=== PATIENT | male | born 1975 | race Caucasian/White ===

== ENCOUNTER 2024-01-21 20:30 | Emergency (ER) | payer OTHER, SELFPAY ==
[2024-01-21 20:37] VITALS: BP 132/95; PULSE 95; TEMP 36.5; O2SAT 97; BMI 24.4
--- NOTE | 2024-01-21 21:03 | CT_ITS ---
The [address] [address] Patient Name: RAHEEM CODY MRN: [id number] date: 1975 Sex: M Assigned Patient Location: ER Current Patient Location: ER Accession/Order Number: [id number] Exam Date: 01/21/2024 21:17 Report Date: 01/21/2024 22:11 At the request of: REZA GONCALVES Procedure: CT head/brain wo con EXAM: CT head/brain wo con, CT facial bones wo con HISTORY: Pain Feels like something is moving on the rt side COMPARISON: None. TECHNIQUE: Axial CT scans through the head and facial bones were obtained without IV contrast administration. Dose reduction techniques were achieved by using: automated exposure control and/or adjustment of mA and /or kV according to patient size and/or use of iterative reconstruction technique. CT BRAIN FINDINGS: There is no evidence of acute intracranial hemorrhage or abnormal extra-axial fluid collection. No mass effect or midline shift is seen. There is no evidence of large acute territorial infarction. There is no hydrocephalus. No definite acute fracture is identified. Soft tissues are unremarkable. CT/CT head/brain wo con IMPRESSION: No CT evidence of acute intracranial abnormality. CT FACIAL FINDINGS: No acute fracture or posttraumatic malalignment. The globes are intact bilaterally. There is no retrobulbar hematoma. The soft tissues are unremarkable. The visualized paranasal sinuses show no air-fluid level. There are opacifications of left frontal sinus, ethmoid air cells and obliteration of left frontoethmoidal recess. Moderate leftward deviation of nasal septum with a bony spur. Mastoid air cells are clear. IMPRESSION: No acute abnormality. Electronically authenticated by: LAURA MCNAIRU Date: 01/21/2024 22:11
--- NOTE | 2024-01-21 21:04 | ED_ITS ---
HPI HPI - General Adult General Chief complaint: Back Pain/Injury Stated complaint: HEAD PAIN Time Seen by Provider: 01/21/24 20:49 Source: patient Mode of arrival: walk-in Limitations: no limitations History of Present Illness HPI narrative: 48-year-old male presents to the department because he feels like something is moving around on the right side of his scalp for months. He gives no history of trauma. Sometimes he feels like the roof of his mouth is moving around as well. The symptoms have been present for months and he appears to have seen some physicians about it but no cause was found. No complaints to me of neck pain or fever. Related Data Allergies Allergy/AdvReac Type Severity Reaction Status Date / Time Penicillins Allergy Severe Anaphylaxis Verified 01/21/24 20:37 Opioid HPI Opioid Management Most Recent Opioid Data: No Data to Display Review of Systems ROS Narrative A ten point review of systems is negative except as noted above. PFSH PFSH Social History Little interest or pleasure in doing things: not at all Feeling down, depressed, or hopeless: not at all Exam Narrative Exam Narrative: Nurses note and vital signs reviewed and patient is not hypoxic. General: The patient appears well and in no apparent distress. Patient is resting comfortably on cart. Skin: Warm, dry, no pallor noted. There is no rash noted. Head: Normocephalic, atraumatic; the scalp appears normal. No swelling or bruise or abrasion or erythema or hematoma. Eye: Normal conjunctiva, no drainage Ears, Nose, Mouth, and Throat: oral mucosa is moist. Nares patent. Cardiovascular: Regular Rate and Rhythm Respiratory: Patient is in no distress, no accessory muscle use, lungs are clear to auscultation, no wheezing, rales or rhonchi Back: non-tender, no CVA tenderness bilaterally to percussion. GI: Soft and nontender Musculoskeletal: The patient has no evidence of calf tenderness, no pitting edema, symmetrical pulses noted bilaterally Neurological: Awake alert, upper and lower extremity strength intact Psychiatric: Cooperative Constitutional Vital Signs, click to edit/add: Last Vital Signs Temp 97.7 F 01/21/24 20:37 Pulse 95 H 01/21/24 20:37 Resp 18 01/21/24 20:37 BP 132/95 H 01/21/24 20:37 Pulse Ox 97 01/21/24 20:37 O2 Del Method Room Air 01/21/24 20:37 Course Vital Signs Vital signs: Vital Signs Temperature 97.7 F 01/21/24 20:37 Pulse Rate 95 H 01/21/24 20:37 Respiratory Rate 18 01/21/24 20:37 Blood Pressure 132/95 H 01/21/24 20:37 Pulse Oximetry 97 01/21/24 20:37 Oxygen Delivery Method Room Air 01/21/24 20:37 Temperature 97.7 F 01/21/24 20:37 Pulse Rate 95 H 01/21/24 20:37 Respiratory Rate 18 01/21/24 20:37 Blood Pressure 132/95 H 01/21/24 20:37 Pulse Oximetry 97 01/21/24 20:37 Oxygen Delivery Method Room Air 01/21/24 20:37 Medical Decision Making MDM Narrative Medical decision making narrative: CAT scan of head and facial bones is negative. He was reassured and he will follow-up with his doctors in [place]. Findings were discussed with the patient. Lab Data Labs: Lab Results 01/21/24 Range/Units 21:07 POC Glucose 105 (74-106) mg/dL Imaging Data CT scan - head: Radiologist's impression: ITS Impressions Head CT 01/21/24 21:03 IMPRESSION: No CT evidence of acute intracranial abnormality. CT FACIAL FINDINGS: No acute fracture or posttraumatic malalignment. The globes are intact bilaterally. There is no retrobulbar hematoma. The soft tissues are unremarkable. The visualized paranasal sinuses show no air-fluid level. There are opacifications of left frontal sinus, ethmoid air cells and obliteration of left frontoethmoidal recess. Moderate leftward deviation of nasal septum with a bony spur. Mastoid air cells are clear. IMPRESSION: No acute abnormality. Electronically authenticated by: [facility] Date: 01/21/2024 22:[address] 01/21/24 21:18 IMPRESSION: No CT evidence of acute intracranial abnormality. CT FACIAL FINDINGS: No acute fracture or posttraumatic malalignment. The globes are intact bilaterally. There is no retrobulbar hematoma. The soft tissues are unremarkable. The visualized paranasal sinuses show no air-fluid level. There are opacifications of left frontal sinus, ethmoid air cells and obliteration of left frontoethmoidal recess. Moderate leftward deviation of nasal septum with a bony spur. Mastoid air cells are clear. IMPRESSION: No acute abnormality. Electronically authenticated by: LAURA UNLU Date: 01/21/2024 22:11 Discharge Plan Discharge Chief Complaint: Back Pain/Injury Clinical Impression: Head pain Patient Disposition: Home, Self-Care Time of Disposition Decision: 22:23 Condition: Good Mode of Transportation: Private Vehicle Print Language: Slovenian Instructions: Acute Headache (ED) Additional Instructions: Follow-up with your doctors in [place]. Referrals: Physician,Non-Staff, MD [Primary Care Provider] - 1 week
[2024-01-21 21:10] LABS: Glucometer 105 mg/dL (74-106)
--- NOTE | 2024-01-21 21:18 | CT_ITS ---
The [address] [address] Patient Name: RAHEEM CODY MRN: [id number] date: 1975 Sex: M Assigned Patient Location: ER Current Patient Location: ER Accession/Order Number: [id number] Exam Date: 01/21/2024 21:17 Report Date: 01/21/2024 22:11 At the request of: REZA GONCALVES Procedure: CT facial bones wo con EXAM: CT head/brain wo con, CT facial bones wo con HISTORY: Pain Feels like something is moving on the rt side COMPARISON: None. TECHNIQUE: Axial CT scans through the head and facial bones were obtained without IV contrast administration. Dose reduction techniques were achieved by using: automated exposure control and/or adjustment of mA and /or kV according to patient size and/or use of iterative reconstruction technique. CT BRAIN FINDINGS: There is no evidence of acute intracranial hemorrhage or abnormal extra-axial fluid collection. No mass effect or midline shift is seen. There is no evidence of large acute territorial infarction. There is no hydrocephalus. No definite acute fracture is identified. Soft tissues are unremarkable. CT/CT facial bones wo con IMPRESSION: No CT evidence of acute intracranial abnormality. CT FACIAL FINDINGS: No acute fracture or posttraumatic malalignment. The globes are intact bilaterally. There is no retrobulbar hematoma. The soft tissues are unremarkable. The visualized paranasal sinuses show no air-fluid level. There are opacifications of left frontal sinus, ethmoid air cells and obliteration of left frontoethmoidal recess. Moderate leftward deviation of nasal septum with a bony spur. Mastoid air cells are clear. IMPRESSION: No acute abnormality. Electronically authenticated by: LAURA UNLU Date: 01/21/2024 22:11
== END 2024-01-21 22:28 | disposition home or self-care (01) ==
PROVIDERS: Emergency Provider Emergency Medicine
DX: R51.9 Headache, unspecified (principal)
CPT/HCPCS: 36415; 70450; 70486; 99284

== ENCOUNTER 2024-02-12 18:30 | Emergency (ER) | payer OTHER, SELFPAY ==
[2024-02-12 18:34] VITALS: BP 169/68; PULSE 94; TEMP 37.2; O2SAT 98; BMI 24.4
[2024-02-12 18:46] VITALS: O2SAT 98
--- NOTE | 2024-02-12 19:11 | CT_ITS ---
The [address] [address] Patient Name: RAHEEM CODY MRN: [facility]:[id number] date: 1975 Sex: M Assigned Patient Location: ER Current Patient Location: Accession/Order Number: [id number] Exam Date: 02/12/2024 19:20 Report Date: 02/12/2024 20:21 At the request of: TENA AGUERO Procedure: CT cervical spine wo con EXAM: CT cervical spine wo con HISTORY: neck pain COMPARISON: None. TECHNIQUE: Axial scans C-spine without contrast. Reformatted coronal sagittal images. Individualized radiation dose reduction technique used for this exam. FINDINGS: Normal alignment. No fracture or suspicious bone lesion. Mild disc spacer C5-6 with minor spurring. No calcification along the anterior disc. No definite disc protrusion although CT is relatively insensitive. No canal or foraminal stenosis. Mild facet DJD. Soft tissues unremarkable. No mass or adenopathy seen. No fluid collection or hematoma. Lower neck including larynx, thyroid unremarkable. Chest demonstrates severe emphysema. Pleural-based density most consistent with scarring incompletely visualized. CT/CT cervical spine wo con IMPRESSION: 1. Negative for fracture or subluxation. 2. Mild degenerative disc disease C5-6. Facet degenerative changes bilateral. No significant bony foraminal or canal stenosis. 3. Severe apical emphysema for age. Electronically authenticated by: LAURENCE MAR Date: 02/12/2024 20:21
--- NOTE | 2024-02-12 19:18 | ED.GENADUL1 ---
HPI HPI - General Adult General Chief complaint: Neck Pain/Injury Stated complaint: HEAD/NECK PAIN Time Seen by Provider: 02/12/24 19:11 Source: patient Mode of arrival: walk-in Limitations: no limitations History of Present Illness HPI narrative: Patient presented to emergency department for evaluation of pain. Patient states that a couple days ago he fell out of a chair, landed on the back of his head. Patient states that now whenever he turns left or right he feels like his neck is hurting him. Is not in the middle, he states on the left and right side of his neck it feels like a crunching sensation, and now whenever he swallows he feels like a sharp sensation in the back of his throat that goes into his trachea patient states he not have any difficulty swallowing, he has to drink water and a sharp sensation goes away. No blurry vision, double vision, headaches. States that he has a history of TMJ, as many MRIs of his head and his jaw. No other complaints at this time Related Data Home Medications ?Medication ?Instructions ?Recorded ?Confirmed ketorolac 10 mg tablet 10 mg PO TID PRN pain 02/12/24 02/12/24 Allergies Allergy/AdvReac Type Severity Reaction Status Date / Time Penicillins Allergy Severe Anaphylaxis Verified 02/12/24 18:40 Opioid HPI Opioid Management Most Recent Opioid Data: Last ED Pain Assessment 02/12/24 20:12 Review of Systems ROS Narrative Negative unless otherwise stated in the HPI PFSH PFSH Social History Little interest or pleasure in doing things: not at all Feeling down, depressed, or hopeless: not at all Exam Narrative Exam Narrative: General: NAD, AAOx3, no distress HEENT: NCAT, mmm, midline uvula, no exudates, normal tonsils without hypertrophy or exudates Neck: Supple, no LAD, negative Kernig/Brudzinski, non meningeal, no bruit, paraspinal tenderness bilaterally, no bony abnormalities or deformities Respiratory: respiratory effort normal, speaks in full sentences, no tripod position, no accessory muscle use. Lungs clear to auscultation without rhonchi, wheezes, rales Cardiac: Regular rate and rhythm, no edema, regular s1/s2, no m/g/r Neuro: Speech is clear and appropriate. Normal level of consciousness. Gait and coordination are normal. 5/5 strength in all extremities. Constitutional Vital Signs, click to edit/add: Last Vital Signs Temp 98.9 F 02/12/24 18:34 Pulse 94 H 02/12/24 18:34 Resp 20 02/12/24 18:34 BP 169/68 H 02/12/24 18:34 Pulse Ox 98 02/12/24 18:46 O2 Del Method Room Air 02/12/24 18:46 Course Vital Signs Vital signs: Vital Signs Temperature 98.9 F 02/12/24 18:34 Pulse Rate 94 H 02/12/24 18:34 Respiratory Rate 20 02/12/24 18:34 Blood Pressure 169/68 H 02/12/24 18:34 Pulse Oximetry 98 02/12/24 18:34 Oxygen Delivery Method Room Air 02/12/24 18:34 Temperature 98.9 F 02/12/24 18:34 Pulse Rate 94 H 02/12/24 18:34 Respiratory Rate 20 02/12/24 18:34 Blood Pressure 169/68 H 02/12/24 18:34 Pulse Oximetry 98 02/12/24 18:46 Oxygen Delivery Method Room Air 02/12/24 18:46 Medical Decision Making MDM Narrative Medical decision making narrative: MDM Patient with history as above presented with neck pain status post fall. History obtained from patient. Patient was nontoxic, stable. Ambulatory. Exam as above. Independently reviewed imaging. Reviewed external records. Differential diagnosis considered. Overall presentation is consistent with neck contusion Pt who presented for complaints of pain after minor trauma. Patient on exam was well appearing, hemodynamically stable. Given trauma and tenderness, xray imaging was done without evidence of fracture. At this point in time patient has likely contusion. Recommend ICE, motrin and rest. Will see PCP in 7-10 days for repeat imaging should patient still be having pain. Advanced guidance has been given. Vss, pex is benign at this time. Pt to fu with pcp 1-2 days for reeval, rter should sx worsen, persist or become worrysome in any way. Pt expressed understanding and agreement with plan of care at this time. Will fu as planned. Pt stable for discharge. Discharge Plan Discharge Chief Complaint: Neck Pain/Injury Clinical Impression: Neck pain Patient Disposition: Home, Self-Care Time of Disposition Decision: 20:29 Prescriptions / Home Meds: No Action ketorolac 10 mg tablet 10 mg PO TID PRN (Reason: pain) Print Language: Citizen Of [place] Instructions: Acute Neck Pain (ED) Additional Instructions: Follow-up with your PCP in the next 1 to 2 days. Return to the emergency department should symptoms worsen or become worrisome in any way. Referrals: Physician,Non-Staff, MD [Primary Care Provider] - 1 week
[2024-02-12 20:36] VITALS: BP 135/96; PULSE 80; O2SAT 100
== END 2024-02-12 20:39 | disposition home or self-care (01) ==
PROVIDERS: Emergency Provider Emergency Medicine
DX: M54.2 Cervicalgia (principal)
CPT/HCPCS: 72125; 99284

== ENCOUNTER 2024-09-02 11:37 | Emergency (ER) | payer OTHER, SELFPAY ==
--- OUTSIDE RECORDS SUMMARY | 2016-09-29 10:50 | XMS_ITS | Continuity of Care Document ---
Author Organization [facility] Address [address] [place] [address] Phone Care Team Providers Care Marketing And Development Coordinator Name Role Phone Chavo Bermudez MD Unavailable Unavailable Allergies, Adverse Reactions, Alerts Substance Reaction Status Criticality Penicillins Unknown Active No Information Medications Medication Instructions Dosage Effective Dates (start - stop) Status Comments nicotine 21 mg/24 hr daily transdermal patch apply 1 patch by transdermal route every day and remove at bedtime 21 MG - Active Procedures Procedure Date OFFICE/OUTPATIENT VISIT, [facility] Advance Directives Directive Yes / No Effective Date File Name No Information Encounters Encounter Description Practice Location Reason(s) For Visit Diagnoses Date Provider Providers Copied on Encounter [facility], [address], [place], [place], [id number] tel:[phone] [facility] No Information 7 Lara Tony. [address], [place], [place], [id number] , [place]. tel: [phone] OFFICE/OUTPA TIENT VISIT, NEW [facility], [address], [place], [place], [id number] tel:[phone] [facility] Hepatits C intake (chief complaint) Abdominal pain (chief complaint) Chronic hepatitis CAbdominal pain 7 [facility]. [address], [place], [place], [id number] , [place]. tel: [phone] [facility], [address], [place], [place], [id number] [phone] [facility] No Information 0-201 7 Lara Tony. [address], [place], [place], [id number] , . tel: [phone] Family History Family Member Type Diagnosis Age At Onset No Information Payers Payer name Insurance type Covered alliance party ID Cecile lopez(s) Mariangel [id number] Social History Type Description Quantity Date Captured Comments Alcohol Use Details Unknown Caffeine Use Details Unknown Tobacco Use Status Smoking Status No Information Sex Male Chief Complaint And Reason For Visit No Information Reason For Referral Reason For Referral No Information Plan Of Treatment Date Type Action Status Future Order: Lab Order Urine Dr ug Screen (DRUGU), Ordered on: Ordered Future Order: Lab Order GETACHEW, bod y fluid (BALJIT), Ordered on: Ordered Future Order: Lab Order SPEP ([id number]), Ord ered on: Ordered History Of Present Illness Encounter Date Complaint History Of Prese nt Illness Hepatits C intake Abdominal pain Onset: 2 years a go. Duration is 10 Minutes. It occurs randomly. The problem is unchanged. Location is RUQ. The patient describes it as sharp and stabbing. Context: no pattern noted. Denies aggravating factors. Denies relieving factors. Functional Status Date Functional Assessmen t No Information Instructions Date Instruction Additional Infor mation Stop alcohol ingestion. Related to Chronic hepatitis C Assessments Type Assessment Date No Information Patient Care Teams Name Effective Dates (start - stop) Status Members No Information
--- OUTSIDE RECORDS SUMMARY | 2022-06-04 10:00 | XMS_ITS | Continuity of Care Document ---
Author Organization [facility] Address [address] [place] [address] Phone Care Team Providers Care Chief Power Dispatcher Name Role Phone Fatimah May CNP Unavailable Unavailable Allergies, Adverse Reactions, Alerts Substance Reaction Status Criticality Penicillins Anaphylaxis Active No Information Medications Medication Instructions Dosage Effective Dates (start - stop) Status Comments cetirizine 10 mg tablet take 1 tablet by oral route every day 10 MG - Active nicotine 14 mg/24 hr daily transdermal patch apply 1 patch by transdermal route every day 14 MG - Active Procedures Procedure Date BEHAV CHNG SMOKING 3-10 MIN PREV VISIT, NEW, AGE 40-64 Advance Directives Directive Yes / No Effective Date File Name No Information Encounters Encounter Description Practice Location Reason(s) For Visit Diagnoses Date Provider Providers Copied on Encounter PREV VISIT, NEW, AGE 40-64 [facility], [address] [place] [address], [address], [place] tel:[phone] [facility] Establish Care (chief complaint) Body mass index [BMI] 23.0-23.9, adultEncounter for general adult medical examination without abnormal findingsHepatitis CEncounter for screening for diabetesEncounter for screening for cholesterol levelEncounter for screening for HIVEncounter for screening for infection w/ a predominantly sexual mode of transmissionTMJ disorderAllergic rhinitis, unspecifiedNicotine dependence, cigarettes, uncomplicatedTobacc o abuse counselingTobacco use 3 Lalo Sheridan. [address] [place] [address], [address], [place]. tel:[phone] Referring Provider: Fatimah May, [address] [facility], [place], [address]. tel:[phone] Family History Family Member Type Diagnosis Age At Onset No Information Payers Payer name Insurance type Covered republican ID Cecile lopez(s) [facility] [employer] [id number] Wrap Medicaid [id number] Social History Type Description Quantity Date Captured Comments Alcohol Use Details Unknown Caffeine Use Details Unknown Tobacco Use Status Heavy cigarette smok er (20-39 cigs/day) Smoking Status Heavy tobacco smoker Smoking Tobacco Use Details Cigarette: Years Used 2 Cigarette: 1 Packs per day, Pack Year: 2 Sex Male Sexual Orientation Straight or heterosexual Gender Identity Male Vital Signs Date / Time: Height Weight BMI Pulse Rate Blood Pressure Temperature Respiratory Rate Body Surface Area Head Circumference Head Circ. Percentile Wt./Mario. Percentile BMI percentile Pulse Ox Inhaled Ox 2:00 PM 69.00 in 72.575 kg (160.00 lbs) 23.6 3 kg/m eter (2) 91 /min 127/80 mm[Hg] 98.80 F 17 /min 96 % 21 % Chief Complaint And Reason For Visit From encounter dated '06/04/2022 14:00'. Establish Care (chief complaint). Description: Patient presents to establish care. Patient has concerns about head trauma, a STI test, and a nicotine addiction.Patient states that he believes he got head trauma from a tooth extraction. Pt states the dentist hit his tooth (tried to knock it out) andhe has had popping in his head and jaw pain. Pt would like tested for every STI that he can be tested for. Pt would like to be started on nicotine patches. Reason For Referral Reason For Referral No Information Plan Of Treatment Date Type Action Status Goal Td vaccine. Due on 23 due Goal Eye exam. Due on due Goal Dental exam. Due on 023 due Goal Pneumococcal vaccine. Due on due Goal Depression screening. Due on due Goal Tdap. Due on due Goal Hepatitis C screening. Due o n due Goal Unhealthy drug use screening . Due on due Goal Influenza 6MOS+. Due on due Referral Ordered: Referrals: Oral Maxillofacial Surgery. Evaluate and treat ordered History Of Present Illness Encounter Date Complaint History Of Prese nt Illness Comments: Pt rep orts chronic jaw/TMJ pain with clicking/popping since having teeth pulled for dental work. 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 Is positive for hepatitis C and is treatment naive. Denies current symptoms of STI or known exposures. Requesting assistance with smoking cessation. Establish Care Patient presents to establish care. Patient has concerns about head trauma, a STI test, and a nicotine addiction.Patient states that he believes he got head trauma from a tooth extraction. Pt states the dentist hit his tooth (tried to knock it out) and he has had popping in his head and jaw pain. Pt would like tested for every STI that he can be tested for. Pt would like to be started on nicotine patches. Functional Status Date Functional Assessmen t No Information Instructions Date Instruction Additional Infor evelin Quitting smoking can dramatically improve your health. Doing so lowers your risk of heart disease, lung disease, kidney failure, infection, stomach problems, diabetes, and cancer. Quitting is not easy for most people, and it can take several tries to completely quit. When you are ready to quit, you will make a plan to: Set a quit date, Tell your family and friends that you plan to quit, Plan ahead for the challenges you will face, such as cigarette cravings, and remove cigarettes from your home, car, and work. For most people who are trying to quit smoking, it works best to use both medicines and counseling. Related to Nicotine dependence, cigarettes, uncomplicated Giving encouragement to exercise Related to Body mass index [BMI] 23.0-23.9, adult Assessments Type Assessment Date assessment Body mass index [BMI] 23.0-23.9, adult assessment Encounter for genera l adult medical examination without abnormal findings assessment Hepatitis C assessment Encounter for screening for diab etes assessment Encounter for screening for chol esterol level assessment Encounter for screening for HIV assessment Encounter for screen ing for infection w/ a predominantly sexual mode of transmission assessment TMJ disorder assessment Allergic rhinitis, unspecified M assessment Tobacco use assessment Tobacco abuse counseling 2022 impression [facility] ordered assessment Tobacco use Mental Status Date Cognitive Assessment Orientation - [place] ed to time, place, person, situation. Patient Care Teams Name Effective Dates (start - stop) Status Members No Information
--- OUTSIDE RECORDS SUMMARY | 2023-05-03 09:30 | XMS_ITS | Continuity of Care Document ---
Author Organization [facility] Address [address] [place] [address] Phone Care Team Providers Care Naturopath Name Role Phone Justin Rodríguez DDS Unavailable Unavailable Allergies, Adverse Reactions, Alerts Substance Reaction Status Criticality Penicillins Active No Information Medications Medication Instructions Dosage Effective Dates (start - stop) Status Comments Seroquel 25 mg tablet take 1 tablet by o ral route 2 times every day 25 MG - Active Ambien 5 mg tablet take 1 tablet by ora l route every day at bedtime 5 MG - Active prednisone 5 mg tablet take 1 tablet by oral route every day 5 MG - Active doxycycline hyclate 50 mg capsule take 1 capsule by oral route every 12 hours 50 MG - Active Procedures Procedure Date Intraoral-periapical 1st Film [id number] Additional Apr Bitewig-single Film Oral Hygiene Instruction Limited Oral Eval Advance Directives Directive Yes / No Effective Date File Name No Information Encounters Encounter Description Practice Location Reason(s) For Visit Diagnoses Date Provider Providers Copied on Encounter [facility], [address] [place] [address], [id number], [place] tel:[phone] [facility] DENTAL ER (chief complaint) Encounter for screening for dental disorders Marcos Anderson. [address] [place] [address], [address], . tel:[phone] Family History Family Member Type Diagnosis Age At Onset No Information Payers Payer name Insurance type Covered green party ID Authortyesha lopez(s) [facility] [employer] id [facility] [id number] D Medicaid Wrap - [facility] [id number] Social History Type Description Quantity Date Captured Comments Alcohol Use Details Unknown Caffeine Use Details Unknown Tobacco Use Status No Information Smoking Status No Information Sex Male Sexual Orientation Bisexual Gender Identity Male Vital Signs Date / Time: Height Weight BMI Pulse Rate Blood Pressure Temperature Respiratory Rate Body Surface Area Head Circumference Head Circ. Percentile Wt./Mario. Percentile BMI percentile Pulse Ox Inhaled Ox 1:47 PM 98 /min 116/70 mm[Hg] Chief Complaint And Reason For Visit From encounter dated 05/03/2023 13:30'. DENTAL ER (chief complaint). Description: DENTAL ER Reason For Referral Reason For Referral No Information Plan Of Treatment Date Type Action Status Goal Tdap. Due on due Goal Hepatitis C screening. Due o n due Goal Influenza vaccine. Due on due Goal Unhealthy drug use screening . Due on due Goal Lipid panel. Due on 024 due Goal PRAPARE ASSESSMENT. Due on due Goal Depression screening. Due on due Goal Tdap Vaccine. Due on 2023 due Goal Hep A. Due on du e History Of Present Illness Encounter Date Complaint History Of Prese nt Illness DENTAL ER DENTAL ER Functional Status Date Functional Assessmen t No Information Instructions Date Instruction Additional Infor mation No Information Assessments Type Assessment Date No Information Patient Care Teams Name Effective Dates (start - stop) Status Members No Information
--- OUTSIDE RECORDS SUMMARY | 2024-01-03 10:10 | XMS_ITS ---
Author Organization [facility] Address [address] [place] [address] Care Team Providers Care Receiving Lead Name Role Phone Colette Vuong Primary Care Provider UnavailAlessandro Aguilera [phone] REASON FOR VISIT BILAT OM Encounters Encounter Location Date Provider Diagnosis [facility] [address] [place] [phone] 01/03/2024 Alessandro Germain Plan Of Treatment No Information Progress Notes * RAHEEM CODY ADOB:1975 (49 yo M)Acc No.[id number]:01/03/2024 Patient: RAHEEM MARTINEZ Provider: Nida Germain DPM :1975 A ge:48 Y S ex:Male Date:01/03/2024 Address:[address] [place], [place] [id number] Pcp:Colette Vuong Subjective: * Chief Complaints: * 1 . BILAT OM. * Medical History: Objective: * Vitals: Assessment: Plan: * Treatment: Forms: * Images: * Electronic signature of Diana Germain DPM on 09/02/2024 at 11:51 AM EDT Sign off status: Pending * Provider: Nida Germain DPM Date: 1 Generated for Printi ng/Faxing/eTransmitting on: 0 09/02/2024 11:51 AM EDT
--- OUTSIDE RECORDS SUMMARY | 2024-01-06 10:10 | XMS_ITS ---
Author Organization [facility] Address [address] [place] [address] Care Team Providers Care Meteorological Engineer Name Role Phone Colette Vuong Primary Care Provider UnavailAlessandro Aguilera [phone] REASON FOR VISIT BILAT OM Encounters Encounter Location Date Provider Diagnosis [facility] [address] [facility] [address] [address] 01/06/2024 Alessandro Germain Plan Of Treatment No Information Progress Notes * RAHEEM CODY ADOB:1975 (49 yo M)Acc No.[id number]:01/06/2024 Patient: RAHEEM MARTINEZ Provider: Nida Germain DPM :1975 A ge:48 Y S ex:Male Date:01/06/2024 Address:[address] [place], [place] [phone] Pcp:Colette Vuong Subjective: * Chief Complaints: * 1 . BILAT OM. * Medical History: Objective: * Vitals: Assessment: Plan: * Treatment: Forms: * Images: * Electronic signature of Diana Germain DPM on 09/02/2024 at 11:52 AM EDT Sign off status: Pending * Provider: Nida Germain DPM Date: 1 Generated for Printi ng/Faxing/eTransmitting on: 0 09/02/2024 11:52 AM EDT
--- OUTSIDE RECORDS SUMMARY | 2024-04-13 11:50 | XMS_ITS ---
Author Organization [facility] Address [address] [place] [address] Care Team Providers Care Fight Manager Name Role Phone Colette Vuong Primary Care Provider Unavailab Alessandro Felder Unavailable [phone] REASON FOR VISIT LEFT GREAT TOE ISSUES Encounters Encounter Location Date Provider Diagnosis [facility] [facility] [address] [facility] [address] [place] [address] [address] 04/13/2024 Alessandro Germain Plan Of Treatment No Information Progress Notes * RAHEEM CODY ADOB:1975 (49 yo M)Acc No.[id number]:04/13/2024 Patient: RAHEEM MARTINEZ Provider: Nida Germain DPM :1975 A ge:49 Y S ex:Male Date:04/13/2024 Address:[address] [place], [place] [id number] Pcp:Colette Vuong Subjective: * Chief Complaints: * 1 . LEFT GREAT TOE ISSUES. * Medical History: Objective: * Vitals: Assessment: Plan: * Treatment: Forms: * Images: * Electronic signature of Diana Germain DPM on 09/02/2024 at 11:51 AM EDT Sign off status: Pending * Provider: Nida Germain DPM Date: 04/13/2024 Generated for Printi ng/Fakentrellg/eTransmitting on: 0 09/02/2024 11:51 AM EDT
--- OUTSIDE RECORDS SUMMARY | 2024-08-24 18:30 | XMS_ITS | Encounter Summary ---
Author Organization [facility] Address [address] [place] [address] Phone Care Team Providers Care Traffic Rate Analyst Name Role Phone Calos Garner MD Primary Care Provider Reason for Referral * Consultation (Routine) - Authorized Specialty Diagnoses / Procedures Referred By Joelle de león Referred To Contact Family Medicine / Primary Care Diagnoses TMJ syndrome Scalp pain Omar Traylor PA-C [address] [place] [address] Phone: tel: fax: Referral ID Status Reason Start Date Expiration Date Visits Requested Visits Authorized [id number] Authorized Specialty Services Required 08/24/2024 08/24/2025 1 1 Reason for Visit * Reason Comments Injury Scalp area surroundi ng ear had a loud crack . I've seen drs for tmd. The won't address the fungal infection I had in my scalp. Near ear something snapped the popped and feels . A white line spread over my head ear to ear. Scalp fungus as wel - Entered by patient Encounter Details Date Type Department Care Team (Late st Contact Info) Description 08/24/2024 6:30 PM EDT Telemedicine Urgent Care Virtual Visit [address] [place] [address] Omar Traylor PA-C [address] [place] [address] TMJ syndrome (Primary Dx); Scalp pain Social History Tobacco Use Types Packs/Day Years Used Date Smoking Tobacco: Every Day Cigarettes Passive Smoke Exposure: Never Smokeless Tobacco: Current PHQ-2 Answer Date Recorded Patient Health Questionnaire-2 Score 0 02/21/2024 Sex and Gender Information Value Date Recorded Sex Assigned at Not on file Legal Sex Male 6:26 AM EST Gender Identity Not on file Sexual Orientation Not on file documented as of this encounter Patient Instructions * Patient Instructions* Omar Traylor PA-C - 08/24/2024 6:30 PM EDT I did refer you to primary care. documented in this encounter Progress Notes * Omar Traylor PA-C - 08/24/2024 6:30 PM EDT Urgent Care Virtual Video Visit Patient Location: home Provider Location: [facility] 49-year-old male with multiple complaints. States that he had a head injury and then dealing with TMJ for several years. He had multiple CAT scans and MRIs. He does have an MRI of his face scheduled for beginning of September. He thinks issue is his scalp. At one time he was diagnosed with fungal infection of the scalp and given ketoconazole shampoo. Unable to perform physical exam due to virtual nature of visit. These are longstanding issues for the patient. He is already following with TMJ specialist and has an MRI of his face September 15. There isnothing new or worse today. If he develops headaches, vision issues, fever, drooling, change in voice, or facial swelling he is to go to the emergency department. He would like to establish with . Did refer him to primary care. Use Tylenol if needed. I have communicated my name and active licensure. Video visit completed with realtime synchronous video/audio connection. Informed consent was obtained from the patient. Patient was made aware that my evaluation and diagnosis are limited due to the fact that we are not in the same room during the interview and that this is a virtual encounter that took place via videoconferencing. Patient verbalized understanding. Patient disposition: Home Electronically signed by Omar Traylor PA-C 6:58 PM documented in this encounter Plan of Treatment Upcoming Encounters Date Type Department Care Team (Late st Contact Info) Description 09/14/2024 2:15 PM EDT Office Visit [facility] Internal Medicine [address] [address] Dre Wilde MD [address] [address] Scheduled Referrals Name Type Priority Associated Diagnoses Order Schedule Referral to Primary Care Outpatient Referral Non-Urgent TMJ syndrome Scalp pain Expected: 08/24/2024 (Approximate), Expires: 08/24/2025 documented as of this encounter Visit Diagnoses Diagnosis TMJ syndrome- Primary Unspecified temporomandibular joint disorders Scalp pain documented in this encounter Care Teams Traffic Rate Analyst Relationship Specialty Start Date End Date Calos Garner MD [address] [place] [address] PCP - General 09/21/22 08/27/24 documented as of this encounter
[2024-09-02 11:44] VITALS: BP 120/72; PULSE 105; TEMP 37.2; O2SAT 95; BMI 27.3
--- OUTSIDE RECORDS SUMMARY | 2024-09-02 11:51 | XMS_ITS | Encounter Summary ---
Author Organization [facility] Address [facility] [place] [address] Care Team Providers Care Sanitation Worker Cleaning Equipment Name Role Phone Carrington Fritz MD Unavailable [phone] Carrington Fritz MD Primary Care Provider + Source Comments In the event this information is protected by the Federal Confidentiality of Alcohol and Drug AbusePatient Records regulations: The Federal rules restrict any use of the information to criminally investigate or prosecute any alcohol or drug abuse patient.[facility] Encounter Details Date Type Department Care Team (Late st Contact Info) Description 06/05/2024 Patient [facility] -[address] [place] [address] Callie Serrato RPh At your next appointment, choose [facility]. Social History Tobacco Use Types Packs/Day Years Used Date Smoking Tobacco: Every Day Cigarettes 0.3 16 Smokeless Tobacco: Current Comments:Pt basically does c hew Alcohol Use Standard Drinks/Week Comments No 0 (1 standard drink = 0.6 oz pur e alcohol) PHQ-2 Answer Date Recorded PHQ-2 score 1 05/19/2024 Area Deprivation Index Answer Date Matthew rded National Score (1-100), lower number is lower ri 87 11/29/2023 State Score (1-10), lower number is lower risk 8 11/29/2023 Data from: https://www.neighborhoodatlas.medicine.[facility]/. 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 Answer Date of Assessment Author No 09/25/2013 8:21 AM EDT Pravin Cruz LPN * Are you blind or do you have serious difficulty seeing, even when wearing glasses? Answer Date of Assessment Author No 09/25/2013 8:21 AM EDT Pravin Cruz LPN * Do you have serious difficulty walking or climbing stairs? Answer Date of Assessment Author No 09/25/2013 8:21 AM EDT Pravin Cruz LPN * Do you have difficulty dressing or bathing? Answer Date of Assessment Author No 09/25/2013 8:21 AM EDT Pravin Cruz LPN * Because of a physical, mental, or emotional condition, do you have difficulty doing errands alone such as visiting a doctor's office or shopping? Answer Date of Assessment Author No 09/25/2013 8:21 AM EDT Pravin Cruz LPN documented as of this encounter Mental Status * Because of a physical, mental, or emotional condition, do you have serious difficulty concentrating, remembering, or making decisions? Answer Entry Date Author Yes 09/25/2013 8:21 AM EDT Pravin Cruz LPN documented in this encounter Plan of Treatment Upcoming Encounters Date Type Department Care Team (Late st Contact Info) Description 09/06/2024 7:30 AM EDT OT/PT/Speech Visit [facility] Speech Therapy [address] [place] [address] Carmen Johnson, CCC-WIRER PASSENGER CAR [address] [place] [address] 09/07/2024 8:50 AM EDT Office Visit Otolaryngology [address] [place] [address] Callie Don PA [address] [place] [address] THROAT ISSUE, SWALLOWING ISSUE, MOUTH 09/13/2024 7:30 AM EDT OT/PT/Speech Visit [facility] Speech Therapy [address] [place] [address] Carmen Johnson, CCC-WIRER PASSENGER [address] [address] [place] [address] 09/20/2024 7:30 AM EDT OT/PT/Speech Visit [facility] Speech Therapy [address] [place] [address] Carmen Johnson, CCC-WIRER PASSENGER [address] [address] [place] [address] 09/27/2024 8:00 AM EDT OT/PT/Speech Visit [facility] Speech Therapy [address] [place] [address] Yoli Hankins CCC-WIRER PASSENGER [address] [address] [place] [address] ST 10/02/2024 11:00 AM EDT Office Visit Internal Medicine [facility] [address] [place] [address] Sammie Landa APRN.SPRAY DRY OPERATOR [address] [place] [address] est care 10/25/2024 3:30 PM EDT Office Visit Neurology [address] [place] [address] Toya Wright DO [address] [place] [address] Facial lupillo. Injection sooner documented as of this encounter Visit Diagnoses Not on filedocumented in this encounter Care Teams Sanitation Worker Cleaning Equipment Relationship Specialty Start Date End Date Carrington Fritz MD [facility], [address] [place], [place] [id number] PCP - General Internal Medicine 06/20/24 Carrington Fritz MD [facility], [address] [place] [address] Referring Internal Medicine 11/26/23 documented as of this encounter
--- OUTSIDE RECORDS SUMMARY | 2024-09-02 11:51 | XMS_ITS | Encounter Summary ---
Author Organization [facility] Address [address] [place] [address] Care Team Providers Care Agent Broker Name Role Phone Carrington Fritz MD Unavailable [phone] Carrington Fritz MD Primary Care Provider + Source Comments In the event this information is protected by the Federal Confidentiality of Alcohol and Drug AbusePatient Records regulations: The Federal rules restrict any use of the information to criminally investigate or prosecute any alcohol or drug abuse patient.[facility] Encounter Details Date Type Department Care Team (Late st Contact Info) Description 08/12/2024 Patient Msg Otolaryngology [address] [address] Allan Aggarwal MD [address] [address] Appointment Request Social History Tobacco Use Types Packs/Day Years Used Date Smoking Tobacco: Former Cigarettes Smokeless Tobacco: Former Snuff Comments:Stopped smoking x 2 months ago as 07/06/24. Alcohol Use Standard Drinks/Week Comments No 0 (1 standard drink = 0.6 oz pur e alcohol) PHQ-2 Answer Date Recorded PHQ-2 score 5 06/22/2024 Area Deprivation Index Answer Date Matthew rded National Score (1-100), lower number is lower ri sk 87 11/29/2023 State Score (1-10), lower number is lower risk 8 11/29/2023 Data from: https://www.neighborhoodatlas.medicine.[facility]/. 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 Answer Date of Assessment Author No 07/21/2024 9:54 AM Dejah Fine RN * Are you blind or do you have serious difficulty seeing, even when wearing glasses? Answer Date of Assessment Author No 07/21/2024 9:54 AM Dejah Fine RN * Do you have serious difficulty walking or climbing stairs? Answer Date of Assessment Author No 07/21/2024 9:54 AM Dejah Fine RN * Do you have difficulty dressing or bathing? Answer Date of Assessment Author No 07/21/2024 9:54 AM Dejah Fine RN * Because of a physical, mental, or emotional condition, do you have difficulty doing errands alone such as visiting a doctor's office or shopping? Answer Date of Assessment Author No 07/21/2024 9:54 AM Dejah Fine RN documented as of this encounter Mental Status * Because of a physical, mental, or emotional condition, do you have serious difficulty concentrating, remembering, or making decisions? Answer Entry Date Author No 07/21/2024 9:54 AM Dejah Fine RN documented in this encounter Plan of Treatment Upcoming Encounters Date Type Department Care Team (Late st Contact Info) Description 09/06/2024 7:30 AM EDT OT/PT/Speech Visit [facility] Speech Therapy [address] [place] [address] Carmen Johnson, CCC-WAX ROOM SUPERVISOR [address] [place] [address] 09/07/2024 8:50 AM EDT Office Visit Otolaryngology [address] [place] [address] Callie Don PA [address] [place] [address] THROAT ISSUE, SWALLOWING ISSUE, MOUTH 09/13/2024 7:30 AM EDT OT/PT/Speech Visit [facility] Speech Therapy [address] [place] [address] Carmen Johnson, CCC-WAX ROOM SUPERVISOR [address] [place] [address] 09/20/2024 7:30 AM EDT OT/PT/Speech Visit [facility] Speech Therapy [address] [place] [address] Carmen Johnson, CCC-WAX ROOM SUPERVISOR [address] [place] [address] 09/27/2024 8:00 AM EDT OT/PT/Speech Visit [facility] Speech Therapy [address] [place] [phone] Yoli Hankins CCC-WAX ROOM SUPERVISOR [address] [place] [address] ST 10/02/2024 11:00 AM EDT Office Visit Internal Medicine [facility] [address] [place] [address] Sammie Landa APRN.ORNAMENT SETTER [address] [place] [address] est care 10/25/2024 3:30 PM EDT Office Visit Neurology [address] [place] [address] Toya Wright DO [address] [place] [address] Facial lupillo. Injection sooner documented as of this encounter Visit Diagnoses Not on filedocumented in this encounter Care Teams Agent Broker Relationship Specialty Start Date End Date Carrington Fritz MD [address] [place] [address], [address] [place], [place] [phone] PCP - General Internal Medicine 06/20/24 Carrington Fritz MD [address] [place] [address], [address] [place] [address] Referring Internal Medicine 11/26/23 documented as of this encounter
--- OUTSIDE RECORDS SUMMARY | 2024-09-02 11:51 | XMS_ITS | Clinical Summary ---
Author Organization [facility] Address [id number] [address] [place] [address] Care Team Providers Care Polysomnography Tech Name Role Phone Carrington Fritz MD Primary Care Provider [phone] Allergies Active Allergy Reactions Criticality Noted Date Comments Penicillins Anaphylaxis,Cough High 06/03/2007 Anaphylaxis was listed per [facility]. Medications * This document contains information received from the source organization and may not represent a complete record from that organization. ketoconazole (NIZORAL) 2 % shampooIndica tions:Seborrh ea capitis Apply 1 Application topically 2 (two) times a week. Apply to damp skin, lather, leave on 5 minutes, and rinse 120 mL 05/01/19 25 Active cyanocobalami n (VITAMIN B-12) 1,000 mcg/mL injection 1 mL (1,000 mcg total). 05/18/19 25 Active sodium chloride (OCEAN) 0.65 % nasal spray Administer 2 sprays into each nostril as needed for congestion. 15 mL 12 06/02/19 25 Active mupirocin (BACTROBAN) 2 % ointment Apply 1 Application topically 3 (three) times a day. 22 g 06/02/19 25 Active clonazePAM (KlonoPIN) 1 mg tabletIndicat ions:Anxiety Take 1 tablet (1 mg total) by mouth 2 (two) times a day as needed for anxiety. 60 tablet 08/11/19 25 Active pregabalin (LYRICA) 150 mg capsuleIndica tions:TMJ (temporomandi bular joint disorder) Take 1 capsule (150 mg total) by mouth 3 (three) times a day. 90 capsule 08/16/19 25 Active buprenorphine -naloxone (SUBOXONE) 8-2 mg film 08/18/19 25 Active DULoxetine (CYMBALTA) 30 mg capsule 08/18/19 25 Active naloxone (NARCAN) 4 mg/actuation spray,non-aer osol nasal spray 08/18/19 25 Active coenzyme Q10 10 mg capsule Take 1 capsule (10 mg total) by mouth. 08/25/19 24 025 Active varenicline (CHANTIX) 1 mg tablet Take 1 tablet (1 mg total) by mouth in the morning and 1 tablet (1 mg total) before bedtime. Take with full glass of water. 025 Discontinued cyclobenzapri ne (FLEXERIL) 10 mg tablet Discontinued OXcarbazepine (TRILEPTAL) 300 mg tablet Take 1 tablet (300 mg total) by mouth in the morning and 1 tablet (300 mg total) before bedtime. 025 Discontinued clonazePAM (KlonoPIN) 1 mg tabletIndicat ions:Anxiety Take 1 tablet (1 mg total) by mouth 2 (two) times a day as needed for anxiety. 60 tablet 07/12/19 25 025 Discontinued(Re order) pregabalin (LYRICA) 100 mg capsuleIndica tions:TMJ (temporomandi bular joint disorder) Take 1 capsule (100 mg total) by mouth 3 (three) times a day. 90 capsule 07/21/19 25 025 Discontinued naproxen (NAPROSYN) 500 mg tablet Take 1 tablet (500 mg total) by mouth in the morning and 1 tablet (500 mg total) in the evening. Take with meals. Do all this for 7 days. 14 tablet 08/16/19 25 025 Active Problems Problem Noted Date Diagnosed Date TMJ (temporomandibular joint disorder) Onychomycosis of toenail 11/11/2023 Anxiety Encounters * This document contains information received from the source organization and may not represent a complete record from that organization. Date Type Department Care Team Description 08/18/2024 10:15 AM EDT Office Visit [facility] Internal Medicine/Pediatri [address] [facility] [address] [place] [address] Carrington Fritz MD Hx of trauma of hard palate (Primary Dx) 08/18/2024 Travel 08/16/2024 Travel 08/15/2024 12:18 PM EDT - 08/15/2024 1:11 PM EDT Emergency [facility] - Emergency [address] [place] [address] Zack Sebastian MD Minor head injury, initial encounter (Primary Dx) Discharge Disposition: Home 08/15/2024 10:45 AM EDT Office Visit [facility] [address] [place] [phone] Miguel Hernandez PA Chronic facial pain (Primary Dx); TMJ (temporomandibular joint disorder) 08/15/2024 Travel 08/13/2024 Travel 08/09/2024 Refill [facility] [address] [place] [address] Dahlia Sommer RMA Anxiety 07/19/2024 Refill [facility] [address] [place] [address] Criselda Suazo, RN TMJ (temporomandibular joint disorder) - Bilateral 07/11/2024 Telephone [facility] Internal Medicine/Ped[facility]ri [address] [place] [address] Dahlia Sommer RMA 07/11/2024 Refill [facility] Internal Medicine/Ped[facility]ri [address] [place] [address] Dahlia Sommer RMA Anxiety 07/04/2024 12:30 PM EDT Office Visit [facility] [address] [place] [phone] Miguel Hernandez PA Bilateral temporomandibular joint disorder, unspecified (Primary Dx); TMJ (temporomandibular joint disorder) - Bilateral 07/04/2024 Refill [facility] [address] [place] [address] Miguel Hernandez PA TMJ (temporomandibular joint disorder) - Bilateral 07/04/2024 Refill [facility] [address] [place] [address] Miguel Hernandez PA TMJ (temporomandibular joint disorder) 07/04/2024 Travel 06/19/2024 Telephone [facility] Neurology, A Department of [facility] [address] [facility] [address] [place] [phone] Kate Jones New Patient 06/16/2024 8:09 AM EDT - 06/16/2024 8:15 AM EDT Surgery [facility] - Pain Procedures [address] [place] [address] Kenyon Prather MD INJECTION BURSA INTERMEDIATE Bilat TMJ [22730 (CPT )] 06/16/2024 8:03 AM EDT Anesthesia Event [facility] Pain Procedures [address] [place] [address] Gene Ferrari, Sheila De La Rosa, FLAKE MILLER HELPER-WATER RESOURCE CONSULTANT 06/16/2024 6:43 AM EDT - 06/16/2024 11:59 PM EDT Hospital Encounter [facility] - Radiology [address] [place] [address] Kenyon Prather MD TMJ (temporomandibular joint disorder) Discharge Disposition: Home 06/16/2024 6:42 AM EDT Hospital Encounter [facility] Pain Procedures [address] [place] [address] Kenyon Prather MD Discharge Disposition: Home 06/14/2024 Travel 06/13/2024 Telephone [facility] Internal Medicine/Pediatri cs [address] [place] [address] Matthias Vela CMA 06/12/2024 1:21 PM EDT - 06/12/2024 11:59 PM EDT Hospital Encounter [facility] [place] [address] Facial pain Discharge Disposition: Home 06/12/2024 Travel 06/08/2024 Refill [facility] [address] [place] [address] Tala Mane RN Cervical spondylosis without myelopathy 06/06/2024 Travel 06/04/2024 Refill [facility] Internal Medicine/Pediatri [address] [facility] [address] [place] [address] Carrington Fritz MD Anxiety from Last 3 Months Immunizations Immunization Administration Dates Next Due Hep A / Hep B 03/08/2024 Influenza (IM) Preservative Free 03/18/2024 Influenza, Injectable, quadrivalent (PF) 022 Influenza, Unspecified 01/01/2023 Pneumococcal Conjugate 20-valent 04/26/2023 Tdap 03/08/2024 Family History Medical History Relation Name Comments Diabetes Maternal Grandmother Arthritis Paternal Grandfather Masoud abdalla Relation Name Status Comments Father Maternal Grandmother Paternal Grandfather Masoud abdalla Alive Social History Tobacco Use Types Packs/Day Years Used Date Smoking Tobacco: Some Days Cigarettes Last attempted to quit: 02/16/1994 Smokeless Tobacco: Former Tobacco Cessation:Ready to Q uit: Not Asked; Counseling Given: Not Answered Alcohol Use Standard Drinks/Week Comments Not Currently 0 (1 standard drink = 0.6 oz pur e alcohol) Overall Financial Resource Strain (CARDIA) Answe r Date Recorded How hard is it for you to pa y for the very basics like food, housing, medical care, and heating? Very hard 02/14/2024 PHQ-2 Answer Date Recorded Total Score 0 11/11/2023 PRAPARE - Transportation Answer Date Re corded In the past 12 months, has l ack of transportation kept you from medical appointments or from getting medications? No 11/2023 In the past 12 months, has l ack of transportation kept you from meetings, work, or from getting things needed for daily living? Yes 02/14/2024 Housing Instability Answer Date Recorde d Are you worried or concerned that in the next two months you may not have stable housing that you own, rent or stay in as a part of a household? Yes 02/14/2024 Hunger Screening Answer Date Recorded Within the past 12 months we worried whether our food would run out before we got money to buy more. Never True 08/15/2024 Within the past 12 months th e food we bought just didn't last and we didn't have money to get more. Never True 08/15/2024 Sex and Gender Information Value Date Recorded Sex Assigned at Not on file Legal Sex Male 1:06 PM EST Gender Identity Not on file Sexual Orientation Not on file Last Filed Vital Signs Vital Sign Reading Time Taken Comments Blood Pressure 119/82 08/18/2024 10:09 AM EDT Pulse 92 08/18/2024 10:09 AM EDT Temperature 36.8 C (98.2 F) 08/15/2024 12:07 PM EDT Respiratory Rate 18 08/15/2024 1:10 PM EDT Oxygen Saturation 99% 08/15/2024 1:10 PM EDT Inhaled Oxygen Concentration - - Weight 84.8 kg (187 lb) 08/18/2024 10:09 AM EDT Height 177.8 cm (5' 10 ) 08/15/2024 12:07 PM EDT Body Mass Index 26.83 08/15/2024 12:07 PM EDT Plan of Treatment Upcoming Encounters Date Type Department Care Team (Latest Contact Info) Description 09/15/2024 10:31 AM EDT Hospital Encounter [facility] - Pain Procedures [address] [place] [phone] Kenyon Prather MD [address] [facility] [place] [phone] 09/15/2024 10:31 AM EDT - 09/15/2024 10:40 AM EDT Surgery [facility] - Pain Procedures [address] [place] [address] Kenyon Prather MD [address] [place], [place] [phone] INJECTION BURSA INTERMEDIATE Bilat TMJ [70831 (CPT )] 09/15/2024 1:45 PM EDT Appointment [facility] - MRI Imaging [address] [place] [address] Carrington Fritz MD [address] [place] [address], [address] [place], [place] [id number] 10/19/2024 2:15 PM EDT Office Visit [facility] [address] [place] [address] Miguel Hernandez PA [address] [place], [place] [phone] Scheduled Procedures Name Priority Associated Diagnoses Date/Ti me INJECTION BURSA INTERMEDIATE TMJ (temporomandibular joint disorder) 09/15/2024 10:31 AM EDT Health Maintenance Due Date Last Done Comments Tobacco Counseling 1975 Adult BMI Follow Up Plan 02/11/1994 Influenza Vaccine 11/06/2024 03/18/2024, , 02/24/2022 Depression Screening 11/10/2024 11/11/2023 Adult BMI Screening 08/18/2025 08/18/2024 Tobacco Screening 08/18/2025 08/18/2024 DTaP,Tdap and Td Vaccines (2 - Td or Tdap) 03/08/2034 03/08/2024 COVID-19 Vaccine Completed 03/18/2024 Medical Devices Not on file Procedures Procedure Name Priority Date/Time Associated Diagnosis Comments CT BRAIN WO CONT STAT 08/15/2024 1:04 PM EDT FL FLUOROSCOPY UP TO 1 HOUR Routine 06/16/2024 8:07 AM EDT TMJ (temporomandibular joint disorder) SC ARTHROCENTESIS ASPIR&/INJ INTERM JT/BURS W/O US 06/16/2024 8:01 AM EDT TMJ (temporomandibular joint disorder) MR MRA HEAD WO CONT Routine 06/12/2024 2 :21 PM EDT Facial pain from Last 3 Months Results * CT brain without contrast (08/15/2024 1:04 PM EDT) Anatomical Region Laterality Modality Neuro, Head, Head and Neck, Neuro Covera N/A Computed Tomography 08/15/2024 1:07 PM EDT Narrative 08/15/2024 1:08 PM EDT CLINICAL INFORMATION: Fall . Trauma. TECHNIQUE: CT BRAIN WO CONT CT images of the brain were obtained. Orourke-white differentiation appears intact. There is no cortical infarct or evidence of hemorrhage. Mucosal thickening present within the left sphenoid sinus. No calvarial abnormality. IMPRESSION: No acute intracranial findings. All CT scans at this facility use dose modulation, iterative reconstruction, and/or weight based dosing when appropriate to reduce radiation dose to as low as reasonably achievable. Finalized by Mayo Greenberg MD on 08/15/2024 1:08 PM Procedure Note Mayo Greenberg MD - 08/15/2024 CLINICAL INFORMATION: Fall . Trauma. TECHNIQUE: CT BRAIN WO CONT CT images of the brain were obtained. Orourke-white differentiation appearsintact. There is no cortical infarct or evidence of hemorrhage. Mucosalthickening present within the left sphenoid sinus. No calvarialabnormality. IMPRESSION: No acute intracranial findings. All CT scans at this facility use dose modulation, iterativereconstruction, and/or weight based dosing when appropriate to reduceradiation dose to as low as reasonably achievable. Finalized by Mayo Greenberg MD on 08/15/2024 1:08 PM Zack Sebastian MD IM CT ORDERABLES Final Result * Fluoroscopy less than one hour (06/16/2024 8:07 AM EDT) Narrative SYSTEMGENERATED, DOCUMENTATION - 06/16/2024 8:07 AM EDT No Reading Required. This procedure does not require a formal dictation. Non-Radiologist provider performed procedures can be reviewed under Post-Op, Procedure or Progress notes. For full report details, please reach out to your physician. Effective 07/23/2020 this image will be visible to you in MyChart. us Kenyon Prather MD IMG FLUOROSCOPY ORDERABLES Fi nal Result * MRA head without contrast (06/12/2024 2:21 PM EDT) Anatomical Region Laterality Modality Neuro, Head, Head and Neck, Angio, Neuro Covera N/A Magnetic Resonance 06/13/2024 3:13 AM EDT Narrative 06/13/2024 6:04 AM EDT EXAM: MR MRA HEAD WO CONT CLINICAL INFORMATION: Facial pain. TECHNIQUE: 3-D TOF MRA of the head was obtained. Source and 3-D MIP images of the MRA were reviewed. COMPARISON: MRI dated 05/26/2024 FINDINGS: The intracranial and supraclinoid portions of the internal carotid arteries are unremarkable. The anterior cerebral arteries are unremarkable. There is a patent anterior communicating artery. The middle cerebral arteries and their branches are unremarkable. The vertebral arteries join to form a normal diameter basilar artery. The posterior cerebral arteries are unremarkable. The right posterior communicating artery is seen. The distal portions of the superior cerebellar arteries are seen extending directly between the lateral margins of the michelle and root entry zones of cranial nerve V. There is no convincing evidence for an aneurysm or flow-limiting stenosis in the head. IMPRESSION: 1. No MRA evidence for an aneurysm or significant stenosis in the head. 2. The distal portions of the superior cerebellar arteries are seen extending directly between the lateral margins of the michelle and root entry zones of cranial nerves V; clinical correlation for trigeminal neuralgia is recommended. Finalized by Casimiro Zaman MD on 06/13/2024 6:04 AM Procedure Note Casimiro Zaman MD - 06/13/2024 EXAM: MR MRA HEAD WO CONT CLINICAL INFORMATION: Facial pain. TECHNIQUE: 3-D TOF MRA of the head was obtained. Source and 3-D MIP imagesof the MRA were reviewed. COMPARISON: MRI dated 05/26/2024 FINDINGS: The intracranial and supraclinoid portions of the internal carotidarteries are unremarkable. The anterior cerebral arteries areunremarkable. There is a patent anterior communicating artery. The middlecerebral arteries and their branches are unremarkable. The vertebralarteries join to form a normal diameter basilar artery. The posterior cerebral arteries areunremarkable. The right posterior communicating artery is seen. The distalportions of the superior cerebellar arteries are seen extending directlybetween the lateral margins of the michelle and root entry zones of cranialnerve V. There is no convincing evidence for an aneurysm or flow-limiting stenosisin the head. IMPRESSION: 1. No MRA evidence for an aneurysm or significant stenosis in the head. 2. The distal portions of the superior cerebellar arteries are seenextending directly between the lateral margins of the michelle and root entryzones of cranial nerves V; clinical correlation for trigeminal neuralgiais recommended. Finalized by Casimiro Zaman MD on 06/13/2024 6:04 AM Carrington Fritz MD IMG MRI ORDERABLES Final Resu lt from Last 3 Months Insurance [employer] Care Teams Polysomnography Tech Relationship Specialty Start Date End Date Carrington Fritz MD [address] [place] [address], [place] [id number] PCP - General Pediatrics 02/17/24
--- OUTSIDE RECORDS SUMMARY | 2024-09-02 11:51 | XMS_ITS | Encounter Summary ---
Author Organization [facility] Address [address] [place] [address] Care Team Providers Care Design Sales Consultant Name Role Phone Carrington Fritz MD Unavailable [phone] Carrington Fritz MD Primary Care Provider + Source Comments In the event this information is protected by the Federal Confidentiality of Alcohol and Drug AbusePatient Records regulations: The Federal rules restrict any use of the information to criminally investigate or prosecute any alcohol or drug abuse patient.[facility] Encounter Details Date Type Department Care Team (Late st Contact Info) Description 07/21/2024 Patient Msg Dermatology [place]ath[place]ie [address] [place] [phone] Evelina Arrington MD [address] [place], [place] [phone] Appointment Request Social History Tobacco Use Types [...] is lower risk 8 11/29/2023 Data from: https://www.neighborhoodatlas.medicine.[facility]/. 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 Not [...] Assessment Author No 07/21/2024 9:54 AM Dejah Fien RN * Do you have difficulty dressing [...] Description 09/06/2024 7:30 AM EDT OT/PT/Speech Visit [facility] Speech Therapy [address] [place] [address] Carmen Johnson, CCC-FRUIT RECEIVER [address] [place] [address] 09/07/2024 8:50 AM EDT Office Visit Otolaryngology [address] [place] [address] Callie Don PA [address] [place] [address] THROAT ISSUE, SWALLOWING ISSUE, MOUTH 09/13/2024 7:30 AM EDT OT/PT/Speech Visit [facility] Speech Therapy [address] [place] [address] Carmen Johnson, CCC-FRUIT RECEIVER [address] [place] [address] 09/20/2024 7:30 AM EDT OT/PT/Speech Visit [facility] Speech Therapy [address] [place] [phone] Carmen Johnson, CCC-FRUIT RECEIVER [address] [place] [address] 09/27/2024 8:00 AM EDT OT/PT/Speech Visit [facility] Speech Therapy [address] [place] [phone] Yoli Hankins CCC-FRUIT RECEIVER [address] [place] [address] 10/02/2024 11:00 AM EDT Office Visit Internal Medicine [place] [address] [place] [address] Sammie Landa APRN.DIRECTOR OF CORPORATE SALES [address] [place] [address] est care 10/25/2024 3:30 PM EDT Office Visit Neurology [address] [place] [address] Toya Wright DO [address] [place] [address] Facial lupillo. Injection sooner documented as of this encounter Visit Diagnoses Not on filedocumented in this encounter Care Teams Design Sales Consultant Relationship Specialty Start Date End Date Carrington Fritz MD [address] [place] [address], [address] [place], [place] [phone] PCP - General Internal Medicine 06/20/24 Carrington Fritz MD [address] [place] [address], [address] [place], [place] [phone] Referring Internal Medicine 11/26/23 documented as of this encounter
--- OUTSIDE RECORDS SUMMARY | 2024-09-02 11:51 | XMS_ITS | Encounter Summary ---
Author Organization [facility] Address [address] [place] [address] Care Team Providers Care Curing Pickling Packer Name Role Phone Carrington Fritz MD Unavailable [phone] Carrington Fritz MD Primary Care Provider + Source Comments In the event this information is protected by the Federal Confidentiality of Alcohol and Drug AbusePatient Records regulations: The Federal rules restrict any use of the information to criminally investigate or prosecute any alcohol or drug abuse patient.[facility] Encounter Details Date Type Department Care Team (Late st Contact Info) Description 07/21/2024 Patient Msg Infectious Disease [address] [place] [address] [place] [address] [place] [address] Appointment Request Social History Tobacco Use Types [...] is lower risk 8 11/29/2023 Data from: https://www.neighborhoodatlas.medicine.[facility]/. 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 Not [...] Description 09/06/2024 7:30 AM EDT OT/PT/Speech Visit [facility] Speech Therapy [address] [place] [address] Carmen Johnson, CCC-SIGNAL TIMER [address] [place] [address] 09/07/2024 8:50 AM EDT Office Visit Otolaryngology [address] [place] [address] Callie Don PA [address] [place] [address] THROAT ISSUE, SWALLOWING ISSUE, MOUTH 09/13/2024 7:30 AM EDT OT/PT/Speech Visit [facility] Speech Therapy [address] [place] [phone] Carmen Johnson, CCC-SIGNAL TIMER [address] [place] [address] 09/20/2024 7:30 AM EDT OT/PT/Speech Visit [facility] Speech Therapy [address] [place] [phone] Carmen Johnson, CCC-SIGNAL TIMER [address] [place] [address] 09/27/2024 8:00 AM EDT OT/PT/Speech Visit [facility] Speech Therapy [address] [place] [phone] Yoli Hankins CCC-SIGNAL TIMER [address] [place] [address] 10/02/2024 11:00 AM EDT Office Visit Internal Medicine [place] [address] [place] [address] Sammie Landa APRN.PAINT PREP TECHNICIAN [address] [place] [address] est care 10/25/2024 3:30 PM EDT Office Visit Neurology [address] [place] [address] Toya Wright DO [address] [place] [address] Facial lupillo. Injection sooner documented as of this encounter Visit Diagnoses Not on filedocumented in this encounter Care Teams Curing Pickling Packer Relationship Specialty Start Date End Date Carrington Fritz MD [address] [place] [address], [address] [place], [place] [phone] PCP - General Internal Medicine 06/20/24 Carrington Fritz MD [address] [place] [address], [address] [place] [address] Referring Internal Medicine 11/26/23 documented as of this encounter
--- OUTSIDE RECORDS SUMMARY | 2024-09-02 11:51 | XMS_ITS | Encounter Summary ---
Author Organization [facility] Address [address] [place] [address] Care Team Providers Care Manager Inspection Name Role Phone Carrington Fritz MD Unavailable [phone] Carrington Fritz MD Primary Care Provider + Source Comments In the event this information is protected by the Federal Confidentiality of Alcohol and Drug AbusePatient Records regulations: The Federal rules restrict any use of the information to criminally investigate or prosecute any alcohol or drug abuse patient.[facility] Encounter Details Date Type Department Care Team (Late st Contact Info) Description 07/04/2024 Patient Msg Neurology [address] [phone] Provider, Ccf Appointment scheduling. Social History Tobacco Use Types Packs/Day Years Used Date Smoking Tobacco: Former Cigarettes 0.3 16 Smokeless Tobacco: Current Comments:Pt [...] is lower risk 8 11/29/2023 Data from: https://www.neighborhoodatlas.[facility]/. 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 Speech Therapy [address] [place] [phone] Carmen Johnson, [facility] TOLL COLLECTOR [address] [place] [address] 09/07/2024 8:50 AM EDT Office Visit Otolaryngology [address] [place] [address] Callie Don PA [address] [place] [address] THROAT ISSUE, SWALLOWING ISSUE, MOUTH 09/13/2024 7:30 AM EDT OT/PT/Speech Visit [facility] Speech Therapy [address] [place] [address] Carmen Johnson, CCC-BRIDGE TOLL COLLECTOR [address] [place] [address] 09/20/2024 7:30 AM EDT OT/PT/Speech Visit [facility] Speech Therapy [address] [place] [phone] Carmen oJhnson CCC-BRIDGE TOLL COLLECTOR [address] [place] [address] 09/27/2024 8:00 AM EDT OT/PT/Speech Visit [facility] Speech Therapy [address] [place] [phone] Yoli Hankins CCC-BRIDGE TOLL COLLECTOR [address] [place] [address] 10/02/2024 11:00 AM EDT Office Visit Internal Medicine [place] [address] [place] [address] Sammie Landa APRN.STUDIO POTTER [address] [place] [address] est care 10/25/2024 3:30 PM EDT Office Visit Neurology [address] [place] [address] Toya Wright DO [address] [place] [address] Facial lupillo. Injection sooner documented as of this encounter Visit Diagnoses Not on filedocumented in this encounter Care Teams Manager Inspection Relationship Specialty Start Date End Date Carrington Fritz MD [facility], [address] [place] [address] PCP - General Internal Medicine 06/20/24 Carrignton Fritz MD [facility], [address] [place] [address] Referring Internal Medicine 11/26/23 documented as of this encounter
--- OUTSIDE RECORDS SUMMARY | 2024-09-02 11:51 | XMS_ITS | Encounter Summary ---
Author Organization [facility] Address [facility] [place] [address] Care Team Providers Care Supervisor Felling Bucking Name Role Phone Carrington Fritz MD Unavailable [phone] Carrington Fritz MD Primary Care Provider + Source Comments In the event this information is protected by the Federal Confidentiality of Alcohol and Drug AbusePatient Records regulations: The Federal rules restrict any use of the information to criminally investigate or prosecute any alcohol or drug abuse patient.[facility] Encounter Details Date Type Department Care Team (Late st Contact Info) Description 06/05/2024 Patient [facility] -[address] [place] [address] Callie Serrato RPh At your next appointment, choose [facility]. Social History Tobacco Use Types Packs/Day [...] is lower risk 8 11/29/2023 Data from: https://www.neighborhoodatlas.medicine.[facility]/. 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 [...] Description 09/06/2024 7:30 AM EDT OT/PT/Speech Visit [facility] Speech Therapy [address] [place] [address] Carmen Johnson, CCC-ACCOUNTANT PROPERTY [address] [place] [address] 09/07/2024 8:50 AM EDT Office Visit Otolaryngology [address] [place] [address] Callie Don PA [address] [place] [address] THROAT ISSUE, SWALLOWING ISSUE, MOUTH 09/13/2024 7:30 AM EDT OT/PT/Speech Visit [facility] Speech Therapy [address] [place] [address] Carmen Johnson, CCC-ACCOUNTANT PROPERTY [address] [place] [address] 09/20/2024 7:30 AM EDT OT/PT/Speech Visit [facility] Speech Therapy [address] [place] [address] Carmen Johnson, CCC-ACCOUNTANT PROPERTY [address] [place] [address] 09/27/2024 8:00 AM EDT OT/PT/Speech Visit [facility] Speech Therapy [address] [place] [address] Yoli Hankins CCC-ACCOUNTANT PROPERTY [address] [place] [address] ST 10/02/2024 11:00 AM EDT Office Visit Internal Medicine [facility] [address] [place] [address] Sammie Landa APRN.ARSON AND BOMB INVESTIGATOR [address] [place] [address] est care 10/25/2024 3:30 PM EDT Office Visit Neurology [address] [place] [address] oTya Wright DO [address] [place] [address] Facial lupillo. Injection sooner documented as of this encounter Visit Diagnoses Not on filedocumented in this encounter Care Teams Supervisor Felling Bucking Relationship Specialty Start Date End Date Carrington Fritz MD [facility], [address] [place], [place] [phone] PCP - General Internal Medicine 06/20/24 Carrington Fritz MD [facility], [address] [place] [address] Referring Internal Medicine 11/26/23 documented as of this encounter
--- OUTSIDE RECORDS SUMMARY | 2024-09-02 11:51 | XMS_ITS | Encounter Summary ---
Author Organization [facility] Address [address] [place] [address] Care Team Providers Care Punch Operator Name Role Phone Carrington Fritz MD Unavailable [phone] Carrington Fritz MD Primary Care Provider + Source Comments In the event this information is protected by the Federal Confidentiality of Alcohol and Drug AbusePatient Records regulations: The Federal rules restrict any use of the information to criminally investigate or prosecute any alcohol or drug abuse patient.[facility] Encounter Details Date Type Department Care Team (Late st Contact Info) Description 06/29/2024 Patient Msg Neurology [address] [place] [address] Toya Wright DO [address] [place], [place] [phone] today's visit Social History Tobacco Use Types Packs/Day Years [...] is lower risk 8 11/29/2023 Data from: https://www.neighborhoodatlas.medicine.[facility]/. 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 [...] Author No 09/25/2013 8:21 AM EDT Pravin Cruz, DIRECTOR OF RADIOLOGY * Because of a physical, mental, or [...] Description 09/06/2024 7:30 AM EDT OT/PT/Speech Visit [facility] Speech Therapy [address] [place] [address] Carmen Johnson, CCC-CHIEF CLERK SHELTER [address] [place] [address] 09/07/2024 8:50 AM EDT Office Visit Otolaryngology [address] [place] [address] Callie Don PA [address] [place] [address] THROAT ISSUE, SWALLOWING ISSUE, MOUTH 09/13/2024 7:30 AM EDT OT/PT/Speech Visit [facility] Speech Therapy [address] [place] [phone] Carmen Johnson, CCC-CHIEF CLERK SHELTER [address] [place] [address] 09/20/2024 7:30 AM EDT OT/PT/Speech Visit [facility] Speech Therapy [address] [place] [phone] Carmen Johnson, CCC-CHIEF CLERK SHELTER [address] [place] [address] 09/27/2024 8:00 AM EDT OT/PT/Speech Visit [facility] Speech Therapy [address] [place] [address] Yoli Hankins CCC-CHIEF CLERK SHELTER [address] [place] [address] 10/02/2024 11:00 AM EDT Office Visit Internal Medicine [facility] [address] [place] [address] Sammie Landa APRN.SAIL CUTTER [address] [place] [address] est care 10/25/2024 3:30 PM EDT Office Visit Neurology [address] [place] [address] Toya Wright, [address] [place] [address] Facial lupillo. Injection sooner documented as of this encounter Visit Diagnoses Not on filedocumented in this encounter Care Teams Punch Operator Relationship Specialty Start Date End Date Carrington Fritz MD [address] [place] [address], [address] [place], [place] [phone] PCP - General Internal Medicine 06/20/24 Carrington Fritz MD [address] [place] [address], [address] [place], [place] [phone] Referring Internal Medicine 11/26/23 documented as of this encounter
--- OUTSIDE RECORDS SUMMARY | 2024-09-02 11:51 | XMS_ITS | Encounter Summary ---
Author Organization [facility] Address [address] [place] [address] Care Team Providers Care Test Desk Supervisor Name Role Phone Carrington Fritz MD Unavailable [phone] Carrington Fritz MD Primary Care Provider + Source Comments In the event this information is protected by the Federal Confidentiality of Alcohol and Drug AbusePatient Records regulations: The Federal rules restrict any use of the information to criminally investigate or prosecute any alcohol or drug abuse patient.[facility] Reason for Visit * Reason Comments Insurance Authorization Preferred Drug W /Appeal Encounter Details Date Type Department Care Team ([facility] st Contact Info) Description 07/11/2024 Telephone [facility] [address] [place] [address] [place] [address] [place] [address] Insurance Authorization (Preferred Drug W/Appeal) Social History Tobacco Use Types Packs/Day Years [...] is lower risk 8 11/29/2023 Data from: https://www.neighborhoodatlas.medicine.[facility]/. 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 Answer Date of Assessment Author No 09/25/2013 8:21 AM EDT Pravin Cruz LPN * Because of a physical, mental, or emotional condition, do you have difficulty doing errands alone such as visiting a doctor's office or shopping? Answer Date of Assessment Author No 09/25/2013 8:21 AM Pravin Lebron LPN documented as of this encounter Mental Status * Because of a physical, mental, or emotional condition, do you have serious difficulty concentrating, remembering, or making decisions? Answer Entry Date Author Yes 09/25/2013 8:21 AM NAMRATAT Pravin Cruz LPN documented in this encounter Miscellaneous Notes * Telephone Encounter - Merle Sanchez RN - 08/23/2024 9:22 AM EDT Images from the original note were not included. Date Received: 08/23/2024 Received by: Phone Emailed to: Molly Romano Email Sent (Date & Time): 08/22/24 / 3:27 PM Reason for Review: Request has denied as records do not show tried and failed Beta Blockers, * Telephone Encounter - Sharif Carrillo - 08/21/2024 2:25 PM EDT Viji Brar Afternoon, I just wanted to kindly confirm that a new referral has been submitted with an updated diagnosis code, and the Botox request appears to have been submitted under this new referral. ( # [id number] ) Whenever convenient, could you please close the This referral ( # [id number] ) related to the initialrequest? Thank you so much for your help and support! Thanks, SHARIF * Telephone Encounter - Merle Sanchez RN - 08/16/2024 11:56 AM EDT Noted new referral submitted to insurance 08/15/24 * Telephone Encounter - Merle Sanchez RN - 08/08/2024 4:10 PM EDT See another referral placed for Botox * Telephone Encounter - Sharif Carrillo - 08/02/2024 10:47 AM EDT Viji Brar Morning , This is to inform you that the internal appeal has been denied, and we are now eligible to submit an external appeal through [employer]. Please note the following: Submission Deadline: The external appeal must be submitted to [employer] within 30 Calendar days of the written notification indicating that the internal appeal process has been exhausted. Contact Information: Phone: (Option 2) Email: [email or web address] Contact Required Form: The [place] Medicaid MCE External Review Request Form must be completed and submitted. I have already attached this form to the patient???s file for your convenience. It can also be accessed at [email or web address]. Please advise us on how you would like to proceed. Sharif Coates * Telephone Encounter - Merle Sanchez RN - 07/24/2024 4:33 PM EDT Message to pharm auth to check status * Telephone Encounter - Yashira Melendez - 07/13/2024 1:47 PM EDT Rec'd call from insurance. They were calling with an update. They received the appeal and they are reviewing, this can take up to 10 days to review and give a determination. * Telephone Encounter - Merle Sanchez RN - 07/12/2024 3:48 PM EDT Appeal letter sent for Botox. Mychart message to pt * Telephone Encounter - Dannielle Naranjo - 07/11/2024 4:35 PM EDT Patient called in to share that he would like to try the Dysport and requests it be sent to [facility] in [facility]. * Telephone Encounter - Merle Sanchez RN - 07/11/2024 2:26 PM EDT Images from the original note were not included. Provider sent message * Telephone Encounter - Molly Rosalina - 07/11/2024 5:07 AM EDT Images from the original note were not included. documented in this encounter Plan of Treatment Upcoming Encounters Date Type Department Care Team (Late st Contact Info) Description 09/06/2024 7:30 AM EDT OT/PT/Speech Visit [facility] Speech Therapy [address] [place] [address] Carmen Johnson, CCC-CAR PRE COOLER [address] [place] [address] 09/07/2024 8:50 AM EDT Office Visit Otolaryngology [address] [address] Callie Don PA [address] [place] [address] THROAT ISSUE, SWALLOWING ISSUE, MOUTH 09/13/2024 7:30 AM EDT OT/PT/Speech Visit [facility] Speech Therapy [address] [place] [address] Carmen Johnson CCC-CAR PRE COOLER [address] [place] [address] 09/20/2024 7:30 AM EDT OT/PT/Speech Visit [facility] Speech Therapy [address] [place] [address] Carmen Johnson CCC-CAR PRE COOLER [address] [place] [address] ST 09/27/2024 8:00 AM EDT OT/PT/Speech Visit [facility] Speech Therapy [address] [place] [address] Yoli Hankins CCC-CAR PRE COOLER [address] [place] [address] ST 10/02/2024 11:00 AM EDT Office Visit Internal Medicine [place] [address] [place] [address] Sammie Landa APRN.CRYSTALLOGRAPHY TEACHER [address] [place], [place] [address] [facility] care 10/25/2024 3:30 PM EDT Office Visit Neurology [address] [place] [address] Toya Wright, [address] [place] [address] Facial lupillo. Injection sooner documented as of this encounter Visit Diagnoses Not on filedocumented in this encounter Care Teams Test Desk Supervisor Relationship Specialty Start Date End Date Carrington Fritz MD [address] [place] [address], [address] [place], [place] [phone] PCP - General Internal Medicine 06/20/24 Carrington Fritz MD [address] [place] [address], [address] [place], [place] [phone] Referring Internal Medicine 11/26/23 documented as of this encounter
--- OUTSIDE RECORDS SUMMARY | 2024-09-02 11:52 | XMS_ITS | Encounter Summary ---
Author Organization [facility] Address [address] [place] [address] Care Team Providers Care Toilet Products Molder Name Role Phone Carrington Fritz MD Unavailable [phone] Carrington Fritz MD Primary Care Provider + Source Comments In the event this information is protected by the Federal Confidentiality of Alcohol and Drug AbusePatient Records regulations: The Federal rules restrict any use of the information to criminally investigate or prosecute any alcohol or drug abuse patient.[facility] Encounter Details Date Type Department Care Team (Late st Contact Info) Description 04/14/2024 Patient Msg Infectious Disease [address] [place] [address] [place] [address] [place] [address] lab Social History Tobacco Use Types Packs/Day Years Used Date Smoking Tobacco: Every Day Cigarettes 0.3 16 Smokeless Tobacco: Current Comments:Pt basically does c hew Alcohol Use Standard Drinks/Week Comments No 0 (1 standard drink = 0.6 oz pur e alcohol) PHQ-2 Answer Date Recorded PHQ-2 score 6 03/31/2024 Area Deprivation Index Answer Date Matthew rded National Score (1-100), lower number is lower ri sk 87 11/29/2023 State Score (1-10), lower number is lower risk 8 11/29/2023 Data from: https://www.neighborhoodatlas.medicine.[facility]/. 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 Answer Date of Assessment Author No 09/25/2013 8:21 AM EDT Pravin Cruz, WORLD GEOGRAPHY TEACHER * Are you blind or do you have serious difficulty seeing, even when wearing glasses? Answer Date of Assessment Author No 09/25/2013 8:21 AM EDT Pravin Cruz, WORLD GEOGRAPHY TEACHER * Do you have serious difficulty walking or climbing stairs? Answer Date of Assessment Author No 09/25/2013 8:21 AM EDT Pravin Cruz, WORLD GEOGRAPHY TEACHER * Do you have difficulty dressing or bathing? Answer Date of Assessment Author No 09/25/2013 8:21 AM EDT Pravin Cruz, WORLD GEOGRAPHY TEACHER * Because of a physical, mental, or emotional condition, do you have difficulty doing errands alone such as visiting a doctor's office or shopping? Answer Date of Assessment Author No 09/25/2013 8:21 AM EDT Pravin Cruz, WORLD GEOGRAPHY TEACHER documented as of this encounter Mental Status * Because of a physical, mental, or emotional condition, do you have serious difficulty concentrating, remembering, or making decisions? Answer Entry Date Author Yes 09/25/2013 8:21 AM EDT Pravin Cruz, WORLD GEOGRAPHY TEACHER documented in this encounter Miscellaneous Notes * Telephone Encounter - Mitchel Coelho - 04/17/2024 8:[address] Aquino, Please see the below [employer] message and contact patient to advise within 72 hours. Mitchel Smith I'm concerned about all the high t cells in my blood and the high calcium. I have major problems swallowing and pain in my neck. Who or what dr investigates those glands * Telephone Encounter - Mitchel Coelho - 04/14/2024 3:[address] Aquino, Please see the below [employer] message and contact patient to advise within 72 hours. Mitchel Smith Can this be normalized with medication because I swear I feel it my Bones a head. Like my blood is super thick. documented in this encounter Plan of Treatment Upcoming Encounters Date Type Department Care Team (Late st Contact Info) Description 09/06/2024 7:30 AM EDT OT/PT/Speech Visit [facility] Speech Therapy [address] [place] [address] Carmen Johnson, LUDIN-PAPER CUP HANDLE MACHINE OPERATOR [address] [place] [address] 09/07/2024 8:50 AM EDT Office Visit Otolaryngology [address] [address] Callie Don PA [address] [place] [address] THROAT ISSUE, SWALLOWING ISSUE, MOUTH 09/13/2024 7:30 AM EDT OT/PT/Speech Visit [facility] Speech Therapy [address] [place] [address] Carmen Johnson, LUDIN-PAPER CUP HANDLE MACHINE OPERATOR [address] [place] [address] 09/20/2024 7:30 AM EDT OT/PT/Speech Visit [facility] Speech Therapy [address] [place] [address] Carmen Johnson, CCC-PAPER CUP HANDLE MACHINE OPERATOR [address] [place] [address] 09/27/2024 8:00 AM EDT OT/PT/Speech Visit [facility] Speech Therapy [address] [place] [address] Yoli Hankins, CCC-PAPER CUP HANDLE MACHINE OPERATOR [address] [place] [address] ST 10/02/2024 11:00 AM EDT Office Visit Internal Medicine [place] [address] [place], [place] [phone] Sammie Landa APRN.QUARANTINE INSPECTOR [address] [place], [place] [phone] est care 10/25/2024 3:30 PM EDT Office Visit Neurology [address] [place] [address] Toya Wright DO [address] [place] [address] Facial lupillo. Injection sooner documented as of this encounter Visit Diagnoses Not on filedocumented in this encounter Care Teams Toilet Products Molder Relationship Specialty Start Date End Date Carrington Fritz MD [address] [place] [address], [address] [place] [address] PCP - General Internal Medicine 06/20/24 Carrington Fritz MD [address] [place] [address], [address] [place] [address] Referring Internal Medicine 11/26/23 documented as of this encounter
--- OUTSIDE RECORDS SUMMARY | 2024-09-02 11:52 | XMS_ITS | Encounter Summary ---
Author Organization [facility] Address [facility] [place] [address] Care Team Providers Care Television Presenter Name Role Phone Carrington Fritz MD Unavailable [phone] Carrignton Fritz MD Primary Care Provider + Source Comments In the event this information is protected by the Federal Confidentiality of Alcohol and Drug AbusePatient Records regulations: The Federal rules restrict any use of the information to criminally investigate or prosecute any alcohol or drug abuse patient.[facility] Reason for Visit * Reason Comments Insurance Authorization Preferred Drug W /Botox Encounter Details Date Type Department Care Team ([facility] st Contact Info) Description 08/23/2024 Telephone [facility] [address] [place] [address] [place] [address] [place] [address] Insurance Authorization (Preferred Drug W/Botox ) Social History Tobacco Use Types Packs/Day Years [...] is lower risk 8 11/29/2023 Data from: https://www.neighborhoodatlas.medicine.[facility]/. 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 Please let us know how you'd prefer to proceed. Rosalina Coates * Telephone Encounter - Merle Sanchez RN - 08/23/2024 4:38 PM EDT Provider sent mychart of denial * Telephone Encounter - Rosalina Barnes - 08/23/2024 12:47 PM EDT Your patient, referenced below, has an insurance plan that requires prior authorization. The payer has DENIED authorization for treatment due to the medication not being the payers preferred The order needs to be updated to one of the available preferred medications or Appeal is required Denial Reason/Comments you have tried one more drug from one of the following categories for at least 4 weeks each at a minimum effective dose: o Beta blockers (such as propranolol, timolol, atenolol) o or Topiramate, divalproex ER or DR, or valproic acid Available Preferred Drugs o Beta blockers (such as propranolol, timolol, atenolol) o or Topiramate,divalproex ER or DR, or valproic acid Ordering Provider: SILVANO DAVID Provider Tax ID[facility] [id number] [facility] & drug name(s): Botox J0585 Diagnosis submitted (ICD -10 code & description): G43.719 (ICD-10-CM) - Chronic migraine without aura, intractable, without status migrainosus Clinical Documentation Submitted: Office Visit 06/29/2024 Neurology New Start or Renewal? New Start Patient: RAHEEM HODGES : 1975 DOS: [facility] Date Denial Received 08/22/2024 Appeal DEPT. INFORMATION Appeal Phone Number or Fax# FAX # [phone] Contact Name: [facility] [place] Appeals Timeframe to Complete/Call to Schedule: 60 Days Case Reference # or Please reply to all with the outcome of the Appeal or once the order has been updated Thank you for your assistance with this request. Please feel free to contact me if any additional information or clarification is needed. documented in this encounter Plan of Treatment Upcoming Encounters Date Type Department Care Team (Late st Contact Info) Description 09/06/2024 7:30 AM EDT OT/PT/Speech Visit [facility] Speech Therapy [address] [place] [phone] Carmen Johnson CCC-HEAT TREATER HELPER [address] [place] [address] 09/07/2024 8:50 AM EDT Office Visit Otolaryngology [address] [address] Callie Don PA [address] [place] [address] THROAT ISSUE, SWALLOWING ISSUE, MOUTH 09/13/2024 7:30 AM EDT OT/PT/Speech Visit [facility] Speech Therapy [address] [place] [phone] Carmen Johnson CCC-HEAT TREATER HELPER [address] [place] [address] 09/20/2024 7:30 AM EDT OT/PT/Speech Visit [facility] Speech Therapy [address] [place] [phone] Carmen Johnson CCC-HEAT TREATER HELPER [address] [place] [address] ST 09/27/2024 8:00 AM EDT OT/PT/Speech Visit [facility] Speech Therapy [address] [place] [phone] Yoli Hankins CCC-HEAT TREATER HELPER [address] [place] [address] ST 10/02/2024 11:00 AM EDT Office Visit Internal Medicine [facility] [address] [place], [place] [phone] Sammie Landa APRN.LAMINATION INSPECTOR [address] [place], [place] [address] est care 10/25/2024 3:30 PM EDT Office Visit Neurology [address] [place] [address] Toya Wright DO [address] [place] [address] Facial lupillo. Injection sooner documented as of this encounter Visit Diagnoses Not on filedocumented in this encounter Care Teams Television Presenter Relationship Specialty Start Date End Date Carrington Fritz MD [address] [place] [address], [address] [place], [place] [phone] PCP - General Internal Medicine 06/20/24 Carrington Fritz MD [address] [place] [address], [address] [place], [place] [phone] Referring Internal Medicine 11/26/23 documented as of this encounter
--- OUTSIDE RECORDS SUMMARY | 2024-09-02 11:52 | XMS_ITS | Encounter Summary ---
Author Organization [facility] Address [address] [place] [address] Care Team Providers Care Ap Processor Name Role Phone Carrington Fritz MD Unavailable [phone] Carrington Fritz MD Primary Care Provider + Source Comments In the event this information is protected by the Federal Confidentiality of Alcohol and Drug AbusePatient Records regulations: The Federal rules restrict any use of the information to criminally investigate or prosecute any alcohol or drug abuse patient.[facility] Encounter Details Date Type Department Care Team (Late st Contact Info) Description 03/30/2024 Patient Msg Plastic Surgery [address] [place], [place] [phone] Mackenzie Staton MD [address] [place] [address] Appointment Request () Social History Tobacco Use Types Packs/Day Years [...] risk 8 11/29/2023 Data from: https://www.neighborhoodatlas.medicine.[facility]/. 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 Not on [...] Description 09/06/2024 7:30 AM EDT OT/PT/Speech Visit [facility] Speech Therapy [address] [place] [address] Carmen Johnson, CCC-BRAID CUTTER [address] [place] [address] 09/07/2024 8:50 AM EDT Office Visit Otolaryngology [address] [place] [address] Callie Don PA [address] [place] [address] THROAT ISSUE, SWALLOWING ISSUE, MOUTH 09/13/2024 7:30 AM EDT OT/PT/Speech Visit [facility] Speech Therapy [address] [place] [phone] Carmen Johnson, CCC-BRAID CUTTER [address] [place] [address] 09/20/2024 7:30 AM EDT OT/PT/Speech Visit [facility] Speech Therapy [address] [place] [phone] Carmen Johnson CCC-BRAID CUTTER [address] [place] [address] 09/27/2024 8:00 AM EDT OT/PT/Speech Visit [facility] Speech Therapy [address] [place] [phone] Yoli Hankins CCC-BRAID CUTTER [address] [place] [address] ST 10/02/2024 11:00 AM EDT Office Visit Internal Medicine [facility] [address] [place] [address] Sammie Landa APRN.CHEMICAL LABORATORY TECHNICIAN [address] [place], [place] [address] est care 10/25/2024 3:30 PM EDT Office Visit Neurology [address] [place] [address] Toya Wright DO [address] [place] [address] Facial lupillo. Injection sooner documented as of this encounter Visit Diagnoses Not on filedocumented in this encounter Care Teams Ap Processor Relationship Specialty Start Date End Date Carrington Fritz MD [address] [place] [address], [address] [place], [place] [phone] PCP - General Internal Medicine 06/20/24 Carrington Fritz MD [address] [place] [address], [address] [place], [place] [phone] Referring Internal Medicine 11/26/23 documented as of this encounter
--- OUTSIDE RECORDS SUMMARY | 2024-09-02 11:52 | XMS_ITS | Encounter Summary ---
Author [facility] Address [facility]-[id number] [address] [place] [address] Care Team Providers Care Shroud Line Tier Name Role Phone Carrington Fritz MD Primary Care Provider [phone] Reason for Visit * Reason Comments Med Change Request Encounter Details Date Type Department Care Team ([facility] Contact Info) Description 07/04/2024 Refill [facility] [address] [place] [phone] Miguel Hernandez PA [address] [facility], 2nd Floor [place], [place] [phone] TMJ (temporomandibular joint disorder) Social History Tobacco Use Types Packs/Day Years Used Date Smoking Tobacco: Former Cigarettes Q uit: 02/16/1994 Smokeless Tobacco: Former Alcohol Use Standard Drinks/Week Comments Not Currently [...] got money to buy more. Never True 07/04/2024 Within the past 12 months th e food we bought just didn't last and we didn't have money to get more. Never True 07/04/2024 Sex and Gender Information Value Date Recorded Sex Assigned at Not on file Legal Sex Male 1:06 PM EST Gender Identity Not on file Sexual Orientation Not on file documented as of this encounter Plan of Treatment Upcoming Encounters Date Type Department Care Team (Latest Contact Info) Description 09/15/2024 10:31 AM EDT Hospital Encounter [facility] [address] [place] [phone] Kenyon Prather MD [address] [place] [address] 09/15/2024 10:31 AM EDT - 09/15/2024 10:40 AM EDT Surgery [facility] [address] [place] [phone] Kenyon Prather MD [address] [facility] [place] [address] INJECTION BURSA INTERMEDIATE Bilat TMJ [42944 (CPT )] 09/15/2024 1:45 PM EDT Appointment [facility] [address] [facility] [place] [address] Carrington Fritz MD [address] [place] [address], [address] [place], [place] [address] 10/19/2024 2:15 PM EDT Office Visit [facility] [address] [place] [phone] Miguel Hernandez, PA [address], [address] [place], [place] [phone] Scheduled Procedures Name Priority Associated Diagnoses Date/Ti me INJECTION BURSA INTERMEDIATE TMJ (temporomandibular joint disorder) 09/15/2024 10:31 AM EDT documented as of this encounter Visit Diagnoses Diagnosis TMJ (temporomandibular joint disorder) Unspecified temporomandibular joint disorders TMJ (temporomandibular joint disorder) Unspecified temporomandibular joint disorders documented in this encounter Additional Health Concerns Assessment Noted Time PHQ-9 Depression Total Score: 0 11/11/19 1:55 PM EDT documented as of this encounter Care Teams Shroud Line Tier Relationship Specialty Start Date End Date Carrington Fritz MD [address] [place] [address], [address] [place] [address] PCP - General Pediatrics 02/17/24 documented as of this encounter
--- OUTSIDE RECORDS SUMMARY | 2024-09-02 11:52 | XMS_ITS | Encounter Summary ---
Author Organization [facility] [employer] [facility] tem Address [facility]-[id number] [address] [place] [address] Care Team Providers Care Intellectual Property Counsel Name Role Phone Carrington Fritz MD Primary Care Provider [phone] Encounter Details Date Type Department Care Team (Late st Contact Info) Description 07/14/2023 [facility] [address] [facility] [address] [place] [address] [facility], [address] [facility] [address] [place] [address] Social History Tobacco Use Types Packs/Day Years Used Date Smoking Tobacco: Former Cigarettes Smokeless Tobacco: Current Alcohol Use Standard Drinks/Week Comments Not Currently 0 (1 standard drink = 0.6 oz pur e alcohol) Sex and Gender Information Value Date Recorded Sex Assigned at Not on file Legal Sex Male 1:06 PM EST Gender Identity Not on file Sexual Orientation Not on file documented as of this encounter Plan of Treatment Upcoming Encounters Date Type Department Care Team (Latest Contact Info) Description 09/15/2024 10:31 AM EDT Hospital Encounter [facility] - Pain Procedures [address] [place] [phone] Kenyon Prather MD [address] [place], [place] [phone] 09/15/2024 10:31 AM EDT - 09/15/2024 10:40 AM EDT Surgery [facility] - Pain Procedures [address] [facility] [address] Kenyon Prather MD [address] [facility] [facility] [address] INJECTION BURSA INTERMEDIATE Bilat TMJ [01909 (CPT )] 09/15/2024 1:45 PM EDT Appointment [facility] - MRI Imaging [address] [place] [address] Carrington Fritz MD [address] [place] [address], [address] [place] [address] 10/19/2024 2:15 PM EDT Office Visit [facility] [address] [place] [phone] Miguel Hernandez PA [address], [address] [place] [address] Scheduled Procedures Name Priority Associated Diagnoses Date/Ti me INJECTION BURSA INTERMEDIATE TMJ (temporomandibular joint disorder) 09/15/2024 10:31 AM EDT documented as of this encounter Procedures Procedure Name Priority Date/Time Associated Diagnosis Comments COMPREHENSIVE HEARING TEST Routine 07/14/2023 9:37 AM EDT documented in this encounter Results * Comprehensive hearing test (07/14/2023 9:37 AM EDT) Narrative MANUALLY TRANSCRIBED RESULTS - 07/14/2023 9:37 AM EDT Audiology evaluation was completed on 07/14/2023 Yuly-Randa Vu DO AUDIOLOGY SERVICES ORDERABLES Ed ited Result - Final MANUALLY TRANSCRIBED RESULTS documented in this encounter Visit Diagnoses Not on filedocumented in this encounter Care Teams Intellectual Property Counsel Relationship Specialty Start Date End Date Carrington Fritz MD [address] [place] [address], [address] [place] [phone] PCP - General Pediatrics 02/17/24 documented as of this encounter
--- OUTSIDE RECORDS SUMMARY | 2024-09-02 11:52 | XMS_ITS | Clinical Summary ---
Author Organization [facility] Address [address] [place] [address] Phone Care Team Providers Care Director Industrial Museum Name Role Phone Unavailable Primary Care Provider Unavailabl e Allergies Active Allergy Reactions Criticality Noted Date Comments Penicillins Anaphylaxis,Cough,Sw ell ing High 06/03/2007 Other reaction(s): Cough Anaphylaxis was listed per [facility]. Anaphylaxis was listed per [facility]. Medications clonazePAM (KlonoPIN) 0.5 mg tablet Take 0.5 mg by mouth twice a day. 4 Active indomethacin (Indocin) 25 mg capsule TAKE 1 CAPSULE BY MOUTH IN THE MORNING AND 1 AT NOON AND 1 IN THE EVENING WITH MEALS Active nortriptyline (Pamelor) 25 mg capsule Take 25 mg by mouth twice a day. 4 Active mupirocin (Bactroban) 2 % ointment Apply 1 Application topically 3 times a day. 4 Active Encounters Date Type Department Care Team Description 08/24/2024 6:30 PM EDT Telemedicine Urgent Care Virtual Visit [address] [place] [address] Omar Traylor PA-C TMJ syndrome (Primary Dx); Scalp pain 08/24/2024 Travel 08/24/2024 Patient Self-Triage Virtual Care [address] [place] [phone] Shaq Mckeon, Physician, from Last 3 Months Social History Tobacco Use Types Packs/Day Years Used Date Smoking Tobacco: Every Day Cigarettes Passive Smoke Exposure: Never Smokeless Tobacco: Current Tobacco Cessation:Ready to Q uit: No; Counseling Given: No PHQ-2 Answer Date Recorded Patient Health Questionnaire-2 Score 0 02/21/2024 Sex and Gender Information Value Date Recorded Sex Assigned at Not on file Legal Sex Male 6:26 AM EST Gender Identity Not on file Sexual Orientation Not on file Last Filed Vital Signs Vital Sign Reading Time Taken Comments Blood Pressure 125/68 02/21/2024 3:14 PM EST Pulse 103 02/21/2024 3:14 PM EST Temperature 36.4 C (97.5 F) 02/21/2024 3:14 PM EST Respiratory Rate 18 02/21/2024 3:14 PM EST Oxygen Saturation 97% 02/21/2024 3:14 PM EST Inhaled Oxygen Concentration - - Weight 77.1 kg (170 lb) 02/21/2024 3:14 PM EST Height 177.8 cm (5' 10 ) 02/21/2024 3:14 PM EST Body Mass Index 24.39 02/21/2024 3:14 PM EST Plan of Treatment Upcoming Encounters Date Type Department Care Team (Late st Contact Info) Description 09/14/2024 2:15 PM EDT Office Visit [facility] Internal Medicine [address] [phone] Dre Wilde MD [address] [address] Health Maintenance Due Date Last Done Comments CT Colonography 1975 Colonoscopy 1975 Colorectal Cancer Screening 1975 FIT-DNA (Cologuard) 1975 FIT 1975 HIV Screening 1975 Sigmoidoscopy 1975 Yearly Adult Physical 1975 MMR Vaccines (1 of 1 - Standard series) 02/11/1977 Diabetes Screening 09/22/2023 09/21/2022 Hepatitis A Vaccines (2 of 3 - Hep A Twinrix risk 3-dose series) 04/05/2024 03/08/2024 Hepatitis B Vaccines (2 of 3 - Hep B Twinrix 3-dose series) 04/05/2024 03/08/2024 Lipid Panel 10/02/2025 10/02/2020 Zoster Vaccines (1 of 2) 02/11/2026 DTaP/Tdap/Td Vaccines (2 - T d or Tdap) 03/08/2034 03/08/2024 Pneumococcal Vaccine: Pediatrics and At-Risk Adult Patients Completed 04/26/2023, 04/26/2023 COVID-19 Vaccine Completed 03/18/2024 Influenza Vaccine Completed 03/18/2024, 01/01/2023, 02/24/2022 HIB Vaccines Aged Out No longer eligi ble based on patient's age to complete this topic HPV Vaccines (No Doses Required) Completed IPV Vaccines Aged Out No longer eligi ble based on patient's age to complete this topic Meningococcal Vaccine Aged Out No michelle mg eligible based on patient's age to complete this topic Rotavirus Vaccines Aged Out No longer eligible based on patient's age to complete this topic Procedures Procedure Name Priority Date/Time Associated Diagnosis Comments COMPREHENSIVE METABOLIC PANEL STAT 09/21/2022 10:00 AM EDT from Last 3 Months or Most Recently Relevant to Health Maintenance Results * (ABNORMAL) Comprehensive Metabolic Panel (09/21/2022 10:00 AM EDT) Glucose 104(H) 74 - 99 mg/dL [facility] Sodium 137 136 - 145 mmol/L [facility] Potassium 3.6 3.5 - 5.3 mmol/L [facility] Chloride 104 98 - 107 mmol/L [facility] Bicarbonate 25 21 - 32 mmol/L [facility] Anion Gap 12 10 - 20 mmol/L [facility] Urea Nitrogen 11 6 - 23 mg/dL [facility] Creatinine 0.90 0.50 - 1.30 mg/dL [facility] GFR MALE >90 >90 mL/min/1.7 3m2 [facility] Comment: CALCULATIONS OF ESTIMATED GFR ARE PERFORMED USING THE 2020 CKD-EPI STUDY REFIT EQUATION WITHOUT THE RACE VARIABLE FOR THE IDMS-TRACEABLE CREATININE METHODS. https://jasn.asnjournals.org/content//ASN.6706940504 Calcium 9.5 8.6 - 10.3 mg/dL [facility] Albumin 4.3 3.4 - 5.0 g/dL [facility] Alkaline Phosphatase 57 33 - 120 U/L [facility] Total Protein 7.2 6.4 - 8.2 g/dL [facility] AST 98(H) 9 - 39 U/L [facility] Total Bilirubin 0.6 0.0 - 1.2 mg/dL [facility] ALT (SGPT) 85(H) 10 - 52 U/L [facility] Comment: Patients treated with Sulfasalazine may generate falsely decreased results for ALT. 09/21/2022 10:0 0 AM EDT 09/21/2022 10:34 AM EDT us Ezequiel Marcos MD LAB BLOOD ORDERABLES Final R esult [facility] [address] [place] [address] from Last 3 Months or Most Recently Relevant to Health Maintenance Insurance [place] [address] [place] [address] [facility] MEDICAID [employer] MED[employer]ID
--- OUTSIDE RECORDS SUMMARY | 2024-09-02 11:52 | XMS_ITS | Encounter Summary ---
Author Organization [facility] Address [facility]-[id number] [address] [place] [address] Care Team Providers Care Health Professional Name Role Phone Carrington Fritz MD Primary Care Provider [phone] Reason for Visit * Reason Comments Med Change Request Encounter Details Date Type Department Care Team ([facility] Contact Info) Description 07/04/2024 Refill [facility] [address] [place] [phone] Miguel Hernandez PA [address] [facility], 2nd [address] [place], [place] [phone] TMJ (temporomandibular joint disorder) - Bilateral Social History Tobacco Use Types Packs/Day Years [...] Description 09/15/2024 10:31 AM EDT Hospital Encounter [facility] - [facility] Procedures [address] [facility] [place] [phone] Kenyon Prather MD [address] [facility] [place] [address] 09/15/2024 10:31 AM EDT - 09/15/2024 10:40 AM EDT Surgery [facility] - Pain Procedures [address] [place] [phone] Kenyon Prather MD [address] [facility] [place] [address] INJECTION BURSA INTERMEDIATE Bilat TMJ [62564 (CPT )] 09/15/2024 1:45 PM EDT Appointment [facility] MRI Imaging [address] [place] [phone] Carrington Fritz MD [address] [place] [address], [address] [place], [place] [phone] 10/19/2024 2:15 PM EDT Office Visit [facility] [address] [place] [phone] Miguel Hernandez PA [address], [address] [place], [place] [phone] Scheduled Procedures Name Priority Associated Diagnoses Date/Ti me INJECTION BURSA INTERMEDIATE TMJ (temporomandibular joint disorder) 09/15/2024 10:31 AM EDT documented as of this encounter Visit Diagnoses Diagnosis TMJ (temporomandibular joint disorder) - Bilateral Unspecified temporomandibular joint disorders TMJ (temporomandibular joint disorder) Unspecified temporomandibular joint disorders documented in this encounter Additional Health Concerns Assessment Noted Time PHQ-9 Depression Total Score: 0 11/11/19 1:55 PM EDT documented as of this encounter Care Teams Health Professional Relationship Specialty Start Date End Date Carrington Fritz MD [address] [place] [address], [address] [place], [place] [phone] PCP - General Pediatrics 02/17/24 documented as of this encounter
--- OUTSIDE RECORDS SUMMARY | 2024-09-02 11:52 | XMS_ITS | Encounter Summary ---
Author Organization [facility] Address [address] [place] [address] Care Team Providers Care Sports Book Board Attendant Name Role Phone Carrington Fritz MD Unavailable [phone] Carrington Fritz MD Primary Care Provider + Source Comments In the event this information is protected by the Federal Confidentiality of Alcohol and Drug AbusePatient Records regulations: The Federal rules restrict any use of the information to criminally investigate or prosecute any alcohol or drug abuse patient.[facility] Encounter Details Date Type Department Care Team (Late st Contact Info) Description 03/22/2024 [place] [address] Provider, Ccf 03/24/24 AISHA @ [facility] Social History Tobacco Use Types Packs/Day Years Used Date Smoking Tobacco: Every Day Cigarettes 0.3 16 Smokeless Tobacco: Current Comments:Pt basically does c hew Alcohol Use Standard Drinks/Week Comments No 0 (1 standard drink = 0.6 oz pur e alcohol) PHQ-2 Answer Date Recorded PHQ-2 score 6 03/13/2024 Area Deprivation Index Answer Date Matthew rded National Score (1-100), lower number is lower ri sk 87 11/29/2023 State Score (1-10), lower number is lower risk 8 11/29/2023 Data from: https://www.neighborhoodatlas.[facility]/. 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 Not [...] Description 09/06/2024 7:30 AM EDT OT/PT/Speech Visit [facility] Speech Therapy [address] [place] [address] Carmen Johnson, [facility]-VENEER STOCK GRADER [address] [place] [address] 09/07/2024 8:50 AM EDT Office Visit Otolaryngology [address] [place] [address] Callie Don PA [address] [place] [address] THROAT ISSUE, SWALLOWING ISSUE, MOUTH 09/13/2024 7:30 AM EDT OT/PT/Speech Visit [facility] Speech Therapy [address] [place] [address] Carmen Johnson, CCC-VENEER STOCK GRADER [address] [place] [address] 09/20/2024 7:30 AM EDT OT/PT/Speech Visit [facility] Speech Therapy [address] [place] [address] Carmen Johnson CCC-VENEER STOCK GRADER [address] [place] [address] 09/27/2024 8:00 AM EDT OT/PT/Speech Visit [facility] Speech Therapy [address] [place] [address] Yoli Hankins CCC-VENEER STOCK GRADER [address] [place] [address] 10/02/2024 11:00 AM EDT Office Visit Internal Medicine [facility] [address] [place], [place] [phone] Sammie Landa APRN.PIPE MACHINE OPERATOR [address] [place] [address] est care 10/25/2024 3:30 PM EDT Office Visit Neurology [address] [place] [address] Toya Wright DO [address] [place] [address] Facial lupillo. Injection sooner documented as of this encounter Visit Diagnoses Not on filedocumented in this encounter Care Teams Sports Book Board Attendant Relationship Specialty Start Date End Date Carrington Fritz MD [facility]5 [facility], [address] [place] [address] PCP - General Internal Medicine 06/20/[address] [facility], [address] [place] [address] Referring Internal Medicine 11/26/23 documented as of this encounter
--- OUTSIDE RECORDS SUMMARY | 2024-09-02 11:52 | XMS_ITS | Encounter Summary ---
Author Organization [facility] Address [address] [place] [address] Care Team Providers Care Optics Test Technician Name Role Phone Carrington Fritz MD Unavailable [phone] Carrington Fritz MD Primary Care Provider + Source Comments In the event this information is protected by the Federal Confidentiality of Alcohol and Drug AbusePatient Records regulations: The Federal rules restrict any use of the information to criminally investigate or prosecute any alcohol or drug abuse patient.[facility] Encounter Details Date Type Department Care Team (Late st Contact Info) Description 12/22/2023 Patient [place] [address] Provider, Sabihaf CT 12/24/23 [facility] Social History Tobacco Use Types Packs/Day Years Used Date Smoking Tobacco: Every Day Cigarettes 0.3 16 Smokeless Tobacco: Current Comments:Pt basically does c hew Alcohol Use Standard Drinks/Week Comments No 0 (1 standard drink = 0.6 oz pur e alcohol) PHQ-2 Answer Date Recorded PHQ-2 score 4 12/08/2023 Area Deprivation Index Answer Date Matthew rded National Score (1-100), lower number is lower ri sk 87 11/29/2023 State Score (1-10), lower number is lower risk 8 11/29/2023 Data from: https://www.neighborhoodatlas.[facility]/. 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 Not on [...] Description 09/06/2024 7:30 AM EDT OT/PT/Speech Visit [facility] Speech Therapy [address] [place] [address] Carmen Johnson, [facility]-ENRICHMENT SPECIALIST [address] [place] [address] 09/07/2024 8:50 AM EDT Office Visit Otolaryngology [address] [place] [address] Callie Don PA [address] [place] [address] THROAT ISSUE, SWALLOWING ISSUE, MOUTH 09/13/2024 7:30 AM EDT OT/PT/Speech Visit [facility] Speech Therapy [address] [place] [address] Carmen Johnson, CCC-ENRICHMENT SPECIALIST [address] [place] [address] 09/20/2024 7:30 AM EDT OT/PT/Speech Visit [facility] Speech Therapy [address] [place] [address] Carmen Johnson CCC-ENRICHMENT SPECIALIST [address] [place] [address] 09/27/2024 8:00 AM EDT OT/PT/Speech Visit [facility] Speech Therapy [address] [place] [address] Yoli Hankins CCC-ENRICHMENT SPECIALIST [address] [place] [address] 10/02/2024 11:00 AM EDT Office Visit Internal Medicine [facility] [address] [place], [place] [phone] Sammie Landa APRN.GUT SNATCHER [address] [place] [address] est care 10/25/2024 3:30 PM EDT Office Visit Neurology [address] [place] [address] Toya Wright DO [address] [place] [address] Facial lupillo. Injection sooner documented as of this encounter Visit Diagnoses Not on filedocumented in this encounter Care Teams Optics Test Technician Relationship Specialty Start Date End Date Carrington Fritz MD [facility]5 [facility], [address] [place] [id number] PCP - General Internal Medicine 06/20/24 Carrington Fritz MD [facility]5 [facility], [address] [place] [address] Referring Internal Medicine 11/26/23 documented as of this encounter
--- OUTSIDE RECORDS SUMMARY | 2024-09-02 11:52 | XMS_ITS | Encounter Summary ---
Author Organization [facility] Address [facility] [place] [address] Care Team Providers Care Kayak Maker Name Role Phone Carrington Fritz MD Unavailable [phone] Carrington Fritz MD Primary Care Provider + Source Comments In the event this information is protected by the Federal Confidentiality of Alcohol and Drug AbusePatient Records regulations: The Federal rules restrict any use of the information to criminally investigate or prosecute any alcohol or drug abuse patient.[facility] Reason for Visit * Reason Comments hydration with MRI Encounter Details Date Type Department Care Team (Late st Contact Info) Description 12/22/2023 Telephone Head and Neck [place] [address] [place] [address] Caro Silva, DENTAL TECHNOLOGIST.INSPECTOR DIALS [address] [place], [place] [phone] hydration with MRI Social History Tobacco Use Types Packs/Day Years [...] Data from: https://www.neighborhoodatlas.medicine.[facility]/. 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 Answer Date of Assessment Author No 09/25/2013 8:21 AM EDT Pravin Cruz, MECHANICAL MANAGER * Are you blind or do you have serious difficulty seeing, even when wearing glasses? Answer Date of Assessment Author No 09/25/2013 8:21 AM EDT Pravin Cruz, MECHANICAL MANAGER * Do you have serious difficulty walking or climbing stairs? Answer Date of Assessment Author No 09/25/2013 8:21 AM EDT Pravin Cruz, MECHANICAL MANAGER * Do you have difficulty dressing or bathing? Answer Date of Assessment Author No 09/25/2013 8:21 AM EDT Pravin Cruz, MECHANICAL MANAGER * Because of a physical, mental, or emotional condition, do you have difficulty doing errands alone such as visiting a doctor's office or shopping? Answer Date of Assessment Author No 09/25/2013 8:21 AM EDT Pravin Cruz, MECHANICAL MANAGER documented as of this encounter Mental Status * Because of a physical, mental, or emotional condition, do you have serious difficulty concentrating, remembering, or making decisions? Answer Entry Date Author Yes 09/25/2013 8:21 AM EDT Pravin Cruz LPN documented in this encounter Miscellaneous Notes * Telephone Encounter - Senia Gray - 12/23/2023 11:27 AM EDT Patient is having a CT on 12/23, not an MRI. Attempted to call patient to inform. Left msg to return call. * Telephone Encounter - Senia Gray - 12/22/2023 12:58 PM EDT Garrison Crowley Hodges is calling Caro Silva APRN.INSPECTOR DIALS today. Patient has MRI on 12/23 and is asking for iv hydration due to having difficulty swallowing when in reclined position. Call patient to inform and/or place updated order. No chief complaint on file. Patient has been identified by name and birthdate. Duration of symptoms: Person calling: self [phone] Call patient at: Was an appointment scheduled: Closing statement: Senia Gray documented in this encounter Plan of Treatment Upcoming Encounters Date Type Department Care Team (Late st Contact Info) Description 09/06/2024 7:30 AM EDT OT/PT/Speech Visit [facility] Speech Therapy [address] [place] [address] Carmen Johnson CCC-MATERIAL DAMAGE ADJUSTER [address] [place] [address] 09/07/2024 8:50 AM EDT Office Visit Otolaryngology [address] [address] Callie Don PA [address] [place] [address] THROAT ISSUE, SWALLOWING ISSUE, MOUTH 09/13/2024 7:30 AM EDT OT/PT/Speech Visit [facility] Speech Therapy [address] [place] [address] Carmen Johnson CCC-MATERIAL DAMAGE ADJUSTER [address] [place] [address] 09/20/2024 7:30 AM EDT OT/PT/Speech Visit [facility] Speech Therapy [address] [place] [address] Carmen Johnson, CCC-MATERIAL DAMAGE ADJUSTER [address] [place] [address] 09/27/2024 8:00 AM EDT OT/PT/Speech Visit [facility] Speech Therapy [address] [place] [address] Yoli Hankins, CCC-MATERIAL DAMAGE ADJUSTER [address] [place] [address] 10/02/2024 11:00 AM EDT Office Visit Internal Medicine [place] [address] [place], [place] [address] Sammie Landa APRN.RAIL TRACK MAINTAINER [address] [place], [place] [address] est care 10/25/2024 3:30 PM EDT Office Visit Neurology [address] [place] [address] Toya Wright DO [address] [place] [address] Facial lupillo. Injection sooner documented as of this encounter Visit Diagnoses Not on filedocumented in this encounter Care Teams Kayak Maker Relationship Specialty Start Date End Date Carrington Fritz MD [address] [place] [address], [address] [place] [address] PCP - General Internal Medicine 06/20/24 Carrington Fritz MD [address] [place] [address], [address] [place], [place] [phone] Referring Internal Medicine 11/26/23 documented as of this encounter
--- OUTSIDE RECORDS SUMMARY | 2024-09-02 11:52 | XMS_ITS | Encounter Summary ---
Author Organization [facility] Address [address] [place] [address] Care Team Providers Care Crayon Molding Machine Operator Name Role Phone Carrington Fritz MD Unavailable [phone] Carrington Fritz MD Primary Care Provider + Source Comments In the event this information is protected by the Federal Confidentiality of Alcohol and Drug AbusePatient Records regulations: The Federal rules restrict any use of the information to criminally investigate or prosecute any alcohol or drug abuse patient.[facility] Encounter Details Date Type Department Care Team (Late st Contact Info) Description 04/28/2024 Patient Msg Orthopaedics [address] [place] [address] Stanton Mcgill PA-C [address] [address] MRI results Social History Tobacco Use Types Packs/Day Years Used Date Smoking Tobacco: Every Day Cigarettes 0.3 16 Smokeless Tobacco: Current Comments:Pt basically does c hew Alcohol Use Standard Drinks/Week Comments No 0 (1 standard drink = 0.6 oz pur e alcohol) PHQ-2 Answer Date Recorded PHQ-2 score 1 04/22/2024 Area Deprivation Index Answer Date Matthew rded National Score (1-100), lower number is lower ri sk 87 11/29/2023 State Score (1-10), lower number is lower risk 8 11/29/2023 Data from: https://www.neighborhoodatlas.medicine.[facility]/. 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 Answer Date of Assessment Author No 09/25/2013 8:21 AM EDT Prvain Cruz LPN * Are you blind or [...] No 09/25/2013 8:21 AM EDT Pravin Cruz, ASTRONOMY PROFESSOR * Because of a physical, mental, or [...] Description 09/06/2024 7:30 AM EDT OT/PT/Speech Visit [facility] Speech Therapy [address] [place] [address] Carmen Johnson, CCC-CONTROL PANEL TESTER [address] [place] [address] 09/07/2024 8:50 AM EDT Office Visit [facility] [address] [facility] [place] [address] Callie Don PA [address] [place] [address] THROAT ISSUE, SWALLOWING ISSUE, MOUTH 09/13/2024 7:30 AM EDT OT/PT/Speech Visit [facility] Speech Therapy [address] [place] [phone] Carmen Johnson, CCC-CONTROL PANEL TESTER [address] [place] [address] 09/20/2024 7:30 AM EDT OT/PT/Speech Visit [facility] Speech Therapy [address] [place] [address] Carmen Johnson, CCC-CONTROL PANEL TESTER [address] [place] [address] 09/27/2024 8:00 AM EDT OT/PT/Speech Visit [facility] Speech Therapy [address] [place] [address] Yoli Hankins CCC-CONTROL PANEL TESTER [address] [place] [address] 10/02/2024 11:00 AM EDT Office Visit Internal Medicine [facility] [address] [place] [address] Sammie Landa APRN.SCHOOL PHOTOGRAPH EDITOR [address] [place] [address] est care 10/25/2024 3:30 PM EDT Office Visit Neurology [address] [place] [address] Toya Wright DO [address] [place] [address] Facial lupillo. Injection sooner documented as of this encounter Visit Diagnoses Not on filedocumented in this encounter Care Teams Crayon Molding Machine Operator Relationship Specialty Start Date End Date Carrington Fritz MD [address] [place] [address], [address] [place], [place] [phone] PCP - General Internal Medicine 06/20/24 Carrington Fritz MD [address] [place] [address], [address] [place], [place] [phone] Referring Internal Medicine 11/26/23 documented as of this encounter
--- OUTSIDE RECORDS SUMMARY | 2024-09-02 11:52 | XMS_ITS | Encounter Summary ---
Author Organization [facility] Address [address] [place] [address] Care Team Providers Care Service Station Console Operator Name Role Phone Carrington Fritz MD Unavailable [phone] Carrington Fritz MD Primary Care Provider + Source Comments In the event this information is protected by the Federal Confidentiality of Alcohol and Drug AbusePatient Records regulations: The Federal rules restrict any use of the information to criminally investigate or prosecute any alcohol or drug abuse patient.[facility] Encounter Details Date Type Department Care Team (Late st Contact Info) Description 05/09/2024 [place] [address] Provider, Ccf Phone Call follow up Social History Tobacco Use Types Packs/Day Years [...] is lower risk 8 11/29/2023 Data from: https://www.neighborhoodatlas.[facility]/. 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 Answer Date of Assessment Author No 09/25/2013 8:21 AM EDT Pravin Cruz, MECHANICAL ENGINEERING ADVISOR * Do you have difficulty dressing or bathing? Answer Date of Assessment Author No 09/25/2013 8:21 AM EDT Pravin Cruz, MECHANICAL ENGINEERING ADVISOR * Because of a physical, mental, or [...] Description 09/06/2024 7:30 AM EDT OT/PT/Speech Visit [facility] Speech Therapy [address] [place] [address] Carmen Johnson, [facility]-PRESCHOOL ADVISER [address] [place] [address] 09/07/2024 8:50 AM EDT Office Visit Otolaryngology [address] [place] [address] Callie Don PA [address] [place] [address] THROAT ISSUE, SWALLOWING ISSUE, MOUTH 09/13/2024 7:30 AM EDT OT/PT/Speech Visit [facility] Speech Therapy [address] [place] [address] Carmen Johnson, CCC-PRESCHOOL ADVISER [address] [place] [address] 09/20/2024 7:30 AM EDT OT/PT/Speech Visit [facility] Speech Therapy [address] [place] [address] Carmen Johnson CCC-PRESCHOOL ADVISER [address] [place] [address] 09/27/2024 8:00 AM EDT OT/PT/Speech Visit [facility] Speech Therapy [address] [place] [address] Yoli Hankins CCC-PRESCHOOL ADVISER [address] [place] [address] 10/02/2024 11:00 AM EDT Office Visit Internal Medicine [place] [address] [place], [place] [address] Sammie Landa APRN.ELECTRONICS TECHNOLOGY INSTRUCTOR [address] [place] [address] est care 10/25/2024 3:30 PM EDT Office Visit Neurology [address] [place] [address] Toya Wright DO [address] [place] [address] Facial lupillo. Injection sooner documented as of this encounter Visit Diagnoses Not on filedocumented in this encounter Care Teams Service Station Console Operator Relationship Specialty Start Date End Date Carrington Fritz MD [address] [place] [address], [address] [place] [address] PCP - General Internal Medicine 06/20/24 Carrington Fritz MD [address] [place] [address], [address] [place] [address] Referring Internal Medicine 11/26/23 documented as of this encounter
--- OUTSIDE RECORDS SUMMARY | 2024-09-02 11:52 | XMS_ITS | Encounter Summary ---
Author Organization [facility] Address [address] [place] [address] Care Team Providers Care Pipe Or Steam Fitter Furnace Installer Name Role Phone Carrington Fritz MD Unavailable [phone] Carrington Fritz MD Primary Care Provider + Source Comments In the event this information is protected by the Federal Confidentiality of Alcohol and Drug AbusePatient Records regulations: The Federal rules restrict any use of the information to criminally investigate or prosecute any alcohol or drug abuse patient.[facility] Encounter Details Date Type Department Care Team (Late st Contact Info) Description 04/11/2024 Patient Msg Infectious Disease [address] [place] [address] [place] [address] [place] [address] Appointment Request (HM) Social History Tobacco Use Types Packs/Day Years [...] is lower risk 8 11/29/2023 Data from: https://www.neighborhoodatlas.medicine.[facility]/. 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 Speech Therapy [address] [place] [address] Carmen Johnson, CCC-BREADMAN [address] [place] [address] 09/07/2024 8:50 AM EDT Office Visit [facility] [address] [facility] [facility] [place] [address] Callie Don PA [address] [place] [address] THROAT ISSUE, SWALLOWING ISSUE, MOUTH 09/13/2024 7:30 AM EDT OT/PT/Speech Visit [facility] Speech Therapy [address] [place] [address] Carmen Johnson, CCC-BREADMAN [address] [place] [address] 09/20/2024 7:30 AM EDT OT/PT/Speech Visit [facility] Speech Therapy [address] [place] [address] Carmen Johnson, CCC-BREADMAN [address] [place] [address] 09/27/2024 8:00 AM EDT OT/PT/Speech Visit [facility] Speech Therapy [address] [place] [address] Yoli Hankins CCC-BREADMAN [address] [place] [address] 10/02/2024 11:00 AM EDT Office Visit Internal Medicine [facility] [address] [place] [address] Sammie Landa APRN.NETWORK DEVELOPER [address] [place], [place] [address] est care 10/25/2024 3:30 PM EDT Office Visit Neurology [address] [place] [address] Toya Wright DO [address] [place] [address] Facial lupillo. Injection sooner documented as of this encounter Visit Diagnoses Not on filedocumented in this encounter Care Teams Pipe Or Steam Fitter Furnace Installer Relationship Specialty Start Date End Date Carrington Fritz MD [address] [place] [address], [address] [place], [place] [phone] PCP - General Internal Medicine 06/20/24 Carrington Fritz MD [address] [place] [address], [address] [place], [place] [phone] Referring Internal Medicine 11/26/23 documented as of this encounter
--- OUTSIDE RECORDS SUMMARY | 2024-09-02 11:52 | XMS_ITS | Encounter Summary ---
Author Organization [facility] Address [address] [place] [address] Care Team Providers Care Concrete Pipe Making Machine Operator Name Role Phone Carrington Fritz MD Unavailable [phone] Carrington Fritz MD Primary Care Provider + Source Comments In the event this information is protected by the Federal Confidentiality of Alcohol and Drug AbusePatient Records regulations: The Federal rules restrict any use of the information to criminally investigate or prosecute any alcohol or drug abuse patient.[facility] Encounter Details Date Type Department Care Team (Late st Contact Info) Description 04/12/2024 Patient Msg [facility] [address] [place] [address] Brenda Marin, DERIK.NUTRITION CLUB AMBASSADOR [address] [place] [address] upcoming appointment Social History Tobacco Use Types Packs/Day Years [...] risk 8 11/29/2023 Data from: https://www.neighborhoodatlas.med[facility]/. 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 [...] No 09/25/2013 8:21 AM EDT Pravin Cruz, WOOD GETTER * Because of a physical, mental, or [...] Description 09/06/2024 7:30 AM EDT OT/PT/Speech Visit [facility] Speech Therapy [address] [place] [address] Carmen Johnson, CCC-HOME ECONOMIST CONSUMER SERVICE [address] [place] [address] 09/07/2024 8:50 AM EDT Office Visit Otolaryngology [address] [place] [address] Callie Don PA [address] [place] [address] THROAT ISSUE, SWALLOWING ISSUE, MOUTH 09/13/2024 7:30 AM EDT OT/PT/Speech Visit [facility] Speech Therapy [address] [place] [phone] Carmen Johnson, CCC-HOME ECONOMIST CONSUMER SERVICE [address] [place] [address] 09/20/2024 7:30 AM EDT OT/PT/Speech Visit [facility] Speech Therapy [address] [place] [phone] Carmen Johnson, CCC-HOME ECONOMIST CONSUMER SERVICE [id number] [place] [address] 09/27/2024 8:00 AM EDT OT/PT/Speech Visit [facility] Speech Therapy [address] [place] [phone] Yoli Hankins CCC-HOME ECONOMIST CONSUMER SERVICE [address] [place] [address] 10/02/2024 11:00 AM EDT Office Visit Internal Medicine [facility] [address] [place] [address] Sammie Landa APRN.INDUSTRIAL REHABILITATION CONSULTANT [address] [place] [address] est care 10/25/2024 3:30 PM EDT Office Visit Neurology [address] [place] [address] Toya Wright, [address] [place] [address] Facial lupillo. Injection sooner documented as of this encounter Visit Diagnoses Not on filedocumented in this encounter Care Teams Concrete Pipe Making Machine Operator Relationship Specialty Start Date End Date Carrington Fritz MD [address] [place] [address], [address] [place], [place] [phone] PCP - General Internal Medicine 06/20/24 Carrington Fritz MD [address] [place] [address], [address] [place], [place] [phone] Referring Internal Medicine 11/26/23 documented as of this encounter
--- OUTSIDE RECORDS SUMMARY | 2024-09-02 11:52 | XMS_ITS | Encounter Summary ---
Author Organization [facility] Address [address] [place] [address] Phone Care Team Providers Care Health Workers Name Role Phone Calos Garner MD Primary Care Provider Encounter Details Date Type Department Care Team (Late st Contact Info) Description 08/24/2024 Patient Self-Triage Virtual Care [address] [facility] [address] [place] [phone] Shaq Mckeon, Physician, [address] [place] [address] Social History Tobacco Use Types Packs/Day Years [...] Description 09/14/2024 2:15 PM EDT Office Visit [facility] Internal Medicine [address] [facility] [place] [address] Dre Wilde MD [address] [facility] [address] [place], [place] [phone] documented as of this encounter Visit Diagnoses Not on filedocumented in this encounter Care Teams Health Workers Relationship Specialty Start Date End Date Calos Garner MD [address] [place] [address] PCP - General 09/21/22 08/27/24 documented as of this encounter
--- OUTSIDE RECORDS SUMMARY | 2024-09-02 11:52 | XMS_ITS | Encounter Summary ---
Author Organization [facility] Address [id number] [address] [place] [address] Care Team Providers Care Table Games Dealer Name Role Phone Carrington Fritz MD Primary Care Provider [phone] Encounter Details Date Type Department Care Team ([facility] st Contact Info) Description 04/07/2024 Telephone [facility] Internal Medicine/Pediatrics [address] [place] [phone] Carrington Fritz MD [address] [place] [address], [address] [place], [place] [phone] Social History Tobacco Use Types Packs/Day Years [...] got money to buy more. Never True 02/17/2024 Within the past 12 months th e food we bought just didn't last and we didn't have money to get more. Never True 02/17/2024 Sex and Gender Information Value Date Recorded Sex Assigned at Not on file Legal Sex Male 1:06 PM EST Gender Identity Not on file Sexual Orientation Not on file documented as of this encounter Miscellaneous Notes * Telephone Encounter - Tesha Katherine - 04/07/2024 9:02 AM EST Garrison came in today, and said the pharmacist thinks he needs to see a Infectious Disease dr with all the fungal medicines he has been on. Would you please put a referral in for that? Please advise * Telephone Encounter - Carrington Fritz MD - 04/07/2024 9:02 AM EST I don't think there would be much likelihood of benefit from ID input in his case. documented in this encounter Plan of Treatment Upcoming Encounters Date Type Department Care Team (Latest Contact Info) Description 09/15/2024 10:31 AM EDT Hospital Encounter [facility] - Pain Procedures [address] [place] [phone] Kenyon Prather MD [address] [facility] [place] [address] 09/15/2024 10:31 AM EDT - 09/15/2024 10:40 AM EDT Surgery [facility] [address] [place] [phone] Kenyon Prather MD [address] [facility] [address] INJECTION BURSA INTERMEDIATE Bilat TMJ [14750 (CPT )] 09/15/2024 1:45 PM EDT Appointment [facility] - MRI Imaging [address] [place] [phone] Carrington Fritz MD [address] [place] [address], [address] [place], [place] [phone] 10/19/2024 2:15 PM EDT Office Visit [facility] [address] [place] [phone] Miguel Hernandez PA [address] [place], [place] [phone] Scheduled Procedures Name Priority Associated Diagnoses Date/Ti me INJECTION BURSA INTERMEDIATE TMJ (temporomandibular joint disorder) 09/15/2024 10:31 AM EDT documented as of this encounter Visit Diagnoses Not on filedocumented in this encounter Additional Health Concerns Assessment Noted Time PHQ-9 Depression Total Score: 0 11/11/19 1:55 PM EDT documented as of this encounter Care Teams Table Games Dealer Relationship Specialty Start Date End Date Carrington Fritz MD [address] [place] [address], [address] [place], [place] [phone] PCP - General Pediatrics 02/17/24 documented as of this encounter
--- OUTSIDE RECORDS SUMMARY | 2024-09-02 11:52 | XMS_ITS | Encounter Summary ---
Author Organization [facility] Address [address] [place] [address] Phone Care Team Providers Care Waste Examiner Name Role Phone Calos Garner MD Primary Care Provider Encounter Details Date Type Department Care Team (Latest Contact Info) Description 08/24/2024 Travel Social History Tobacco Use Types Packs/Day Years [...] Description 09/14/2024 2:15 PM EDT Office Visit [facility] Internal Medicine [address] [phone] Dre Wilde MD [address] [facility] [address] [place] [address] documented as of this encounter Visit Diagnoses Not on filedocumented in this encounter Care Teams Waste Examiner Relationship Specialty Start Date End Date Calos Garner MD [address] [place] [address] PCP - General 09/21/22 08/27/24 documented as of this encounter
--- OUTSIDE RECORDS SUMMARY | 2024-09-02 11:52 | XMS_ITS | Encounter Summary ---
Author Organization [facility] Address [address] [place] [address] Care Team Providers Care Rolled Gold Plater Name Role Phone Carrington Fritz MD Unavailable [phone] Carrington Fritz MD Primary Care Provider + [...] st Contact Info) Description 05/09/2024 [place] [address] Provider, Ccf Questionnaire Submission Social History Tobacco Use Types Packs/Day Years [...] is lower risk 8 11/29/2023 Data from: https://www.neighborhoodatlas.[facility]/. 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 Answer Date of Assessment Author No 09/25/2013 8:21 AM EDT Pravin Cruz, SUPPRESSION CREW LEADER * Are you blind or do you have serious difficulty seeing, even when wearing glasses? Answer Date of Assessment Author No 09/25/2013 8:21 AM EDT Pravin Cruz, SUPPRESSION CREW LEADER * Do you have serious difficulty walking or climbing stairs? Answer Date of Assessment Author No 09/25/2013 8:21 AM EDT Pravin Cruz, SUPPRESSION CREW LEADER * Do you have difficulty dressing or bathing? Answer Date of Assessment Author No 09/25/2013 8:21 AM EDT Pravin Cruz, SUPPRESSION CREW LEADER * Because of a physical, mental, or emotional condition, do you have difficulty doing errands alone such as visiting a doctor's office or shopping? Answer Date of Assessment Author No 09/25/2013 8:21 AM EDT Pravin Cruz, SUPPRESSION CREW LEADER documented as of this encounter Mental Status * Because of a physical, mental, or emotional condition, do you have serious difficulty concentrating, remembering, or making decisions? Answer Entry Date Author Yes 09/25/2013 8:21 AM EDT Pravin Cruz, SUPPRESSION CREW LEADER documented in this encounter Plan of Treatment Upcoming Encounters Date Type Department Care Team (Late st Contact Info) Description 09/06/2024 7:30 AM EDT OT/PT/Speech Visit [facility] Speech Therapy [address] [place] [address] Carmen Johnson, [facility]-DENTAL TECHNOLOGY ADVISOR [address] [place] [address] 09/07/2024 8:50 AM EDT Office Visit Otolaryngology [address] [facility] [place] [address] Callie Don PA [address] [place] [address] THROAT ISSUE, SWALLOWING ISSUE, MOUTH 09/13/2024 7:30 AM EDT OT/PT/Speech Visit [facility] Speech Therapy [address] [place] [phone] Carmen Johnson, CCC-DENTAL TECHNOLOGY ADVISOR [address] [place] [address] 09/20/2024 7:30 AM EDT OT/PT/Speech Visit [facility] Speech Therapy [address] [place] [address] Carmen Johnson CCC-DENTAL TECHNOLOGY ADVISOR [address] [place] [address] 09/27/2024 8:00 AM EDT OT/PT/Speech Visit [facility] Speech Therapy [address] [place] [phone] Yoli Hankins CCC-DENTAL TECHNOLOGY ADVISOR [address] [place] [address] 10/02/2024 11:00 AM EDT Office Visit Internal Medicine [facility] [address] [place], [place] [phone] Sammie Landa APRN.JEWEL SAWYER [address] [place] [address] est care 10/25/2024 3:30 PM EDT Office Visit Neurology [address] [place] [address] Toya Wright DO [address] [place] [address] Facial lupillo. Injection sooner documented as of this encounter Visit Diagnoses Not on filedocumented in this encounter Care Teams Rolled Gold Plater Relationship Specialty Start Date End Date Carrington Fritz MD [address] [place] [address], [address] [place], [place] [phone] PCP - General Internal Medicine 06/20/24 Carrington Fritz MD [address] [place] [address], [address] [place] [address] Referring Internal Medicine 11/26/23 documented as of this encounter
--- OUTSIDE RECORDS SUMMARY | 2024-09-02 11:52 | XMS_ITS | Encounter Summary ---
Author Organization [facility] Address [address] [place] [address] Care Team Providers Care Balance Truer Name Role Phone Carrington Fritz MD Unavailable [phone] Carrington Fritz MD Primary Care Provider + Source Comments In the event this information is protected by the Federal Confidentiality of Alcohol and Drug AbusePatient Records regulations: The Federal rules restrict any use of the information to criminally investigate or prosecute any alcohol or drug abuse patient.[facility] Encounter Details Date Type Department Care Team (Late st Contact Info) Description 01/04/2024 Patient Msg [place] Physical Therapy [address] [place] [address] Provider, Ccf appointment reschedule Social History Tobacco Use Types Packs/Day Years [...] is lower risk 8 11/29/2023 Data from: https://www.neighborhoodatlas.[facility].edu/. 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 file Not [...] Description 09/06/2024 7:30 AM EDT OT/PT/Speech Visit [facility] Speech Therapy [address] [place] [address] Carmen Johnson, [facility]-PLAY BACK OPERATOR [address] [place] [address] 09/07/2024 8:50 AM EDT Office Visit Otolaryngology [address] [place] [address] Callie Don PA [address] [place] [address] THROAT ISSUE, SWALLOWING ISSUE, MOUTH 09/13/2024 7:30 AM EDT OT/PT/Speech Visit [facility] Speech Therapy [address] [place] [address] Carmen Johnson, CCC-PLAY BACK OPERATOR [address] [place] [address] 09/20/2024 7:30 AM EDT OT/PT/Speech Visit [facility] Speech Therapy [address] [place] [address] Carmen Johnson CCC-PLAY BACK OPERATOR [address] [place] [address] 09/27/2024 8:00 AM EDT OT/PT/Speech Visit [facility] Speech Therapy [address] [place] [address] Yoli Hankins CCC-PLAY BACK OPERATOR [address] [place] [address] 10/02/2024 11:00 AM EDT Office Visit Internal Medicine [facility] [address] [place], [place] [address] Sammie Landa APRN.AGENCY DEVELOPMENT MANAGER [address] [place] [address] est care 10/25/2024 3:30 PM EDT Office Visit Neurology [address] [place] [address] Toya Wright DO [address] [place] [address] Facial lupillo. Injection sooner documented as of this encounter Visit Diagnoses Not on filedocumented in this encounter Care Teams Balance Truer Relationship Specialty Start Date End Date Carrington Fritz MD [facility], [address] [place] [address] PCP - General Internal Medicine 06/20/24 Carrington Fritz MD [facility], [address] [place] [address] Referring Internal Medicine 11/26/23 documented as of this encounter
--- OUTSIDE RECORDS SUMMARY | 2024-09-02 11:52 | XMS_ITS | Clinical Summary ---
Author Organization [facility] Address [address] [place] [address] Care Team Providers Care Urgent Care Physician Name Role Phone Self, Self Primary Care Provider Unavailabl e Allergies Active Allergy Reactions Criticality Noted Date Comments Penicillins 03/16/2023 Medications hydrOXYzine pamoate (Vistaril) 50 MG capsuleIndication s:Primary insomnia Take 1 capsule by mouth 3 times daily as needed for Anxiety. 84 capsule 2 4 Active Additional Information Patient not taking.Reported on 05/18/2023 zolpidem 10 MG tabletIndications :Primary insomnia Take 1 tablet by mouth at bedtime as needed for Sleep for up to 7 days. 7 tablet 3 4 Active Additional Information Patient not taking.Reported on 06/28/2023 atomoxetine (Strattera) 40 MG capsuleIndication s:Attention deficit hyperactivity disorder (ADHD), unspecified ADHD type Take 1 capsule by mouth daily. 28 capsule 2 4 Active QUEtiapine 100 MG tabletIndications :Mood disorder Take 2 tablets by mouth at bedtime. 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 Opioid dependence in remission 03/16/2023 Attention deficit hyperactivity disorder (ADHD) 03/16/2023 Primary insomnia 03/16/2023 Social History Tobacco Use Types Packs/Day Years Used Date Smoking Tobacco: Every Day Cigarettes Passive Smoke Exposure: Current Smokeless Tobacco: Never Tobacco Cessation:Ready to Q uit: Not Asked; Counseling Given: Not Answered Alcohol Use Standard Drinks/Week Comments Not Currently 0 (1 standard drink = 0.6 oz pur e alcohol) Sex and Gender Information Value Date Recorded Sex Assigned at Not on file Legal Sex Male 7:31 AM EST Gender Identity Male 02/08/2024 4:10 PM EST Sexual Orientation Straight 02/08/2024 4: 10 PM EST Plan of Treatment Health Maintenance Due Date Last Done Comments HEPATITIS C VIRUS SCREENING 1976 HIV SCREENING DISCUSSION 02/11/1991 LIPID SCREENING 2016 COLORECTAL CANCER SCREENING DISCUSSION 02/11/2021 COVID-19 VACCINE ( season) 2023 HEP B VACCINE (2 of 3 - Hep B Twinrix 3-dose series) 04/05/2024 03/08/2024 TETANUS 03/08/2034 03/08/2024 PNEUMOCOCCAL VACCINE SERIES Completed 04/26/2023 TDAP (ADULT) Completed 03/08/2024 INFLUENZA VACCINE Completed 03/18/2024, , 02/24/[address] [place] [address] [place] [address] Care Teams Urgent Care Physician Relationship Specialty Start Date End Date Self, Self PCP - General Other 05/18/23
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
--- OUTSIDE RECORDS SUMMARY | 2024-09-02 11:52 | XMS_ITS | Encounter Summary ---
Author Organization [facility] Address [address] [place] [address] Care Team Providers Care Diamond Sizer And Grader Name Role Phone Carrington Fritz MD Unavailable Carrington Fritz MD Primary Care Provider + Source Comments In the event this information is protected by the Federal Confidentiality of Alcohol and Drug AbusePatient Records regulations: The Federal rules restrict any use of the information to criminally investigate or prosecute any alcohol or drug abuse patient.[facility] Encounter Details Date Type Department Care Team (Late st Contact Info) Description 04/07/2024 Get Medical Advice Otolaryngology [address] [place], [place] [phone] Caro Silva APRN.PAVER LAYER [address] [place] [address] Tmj Social History Tobacco Use Types Packs/Day Years [...] is lower risk 8 11/29/2023 Data from: https://www.neighborhoodatlas.medicine.[facility]/. 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 [...] Author No 09/25/2013 8:21 AM EDT Pravin Curz LPN * Do you have serious difficulty [...] OT/PT/Speech Visit [facility] [address] [place] [address] Carmen Johnson, CCC-ACADEMIC SERVICES PROFESSIONAL [address] [place] [address] 09/07/2024 8:50 AM EDT Office Visit Otolaryngology [address] [facility] [facility] [place] [address] Callie Dno PA [address] [place] [address] THROAT ISSUE, SWALLOWING ISSUE, MOUTH 09/13/2024 7:30 AM EDT OT/PT/Speech Visit [facility] [address] [place] [phone] Carmen Johnson, CCC-ACADEMIC SERVICES PROFESSIONAL [address] [place] [address] 09/20/2024 7:30 AM EDT OT/PT/Speech Visit [facility] [address] [place] [phone] Carmen Johnson, CCC-ACADEMIC SERVICES PROFESSIONAL [address] [place] [address] 09/27/2024 8:00 AM EDT OT/PT/Speech Visit [facility] [address] [place] [phone] Yoli Hankins CCC-ACADEMIC SERVICES PROFESSIONAL [address] [place] [address] 10/02/2024 11:00 AM EDT Office Visit Internal Medicine [facility] [address] [place] [address] Sammie Landa APRN.CASH ANALYST [address] [place], [place] [address] est care 10/25/2024 3:30 PM EDT Office Visit Neurology [address] [place] [address] Toya Wright DO [address] [place] [address] Facial lupillo. Injection sooner documented as of this encounter Visit Diagnoses Not on filedocumented in this encounter Care Teams Diamond Sizer And Grader Relationship Specialty Start Date End Date Carrington Fritz MD [address] [place] [address], [address] [place], [place] [phone] PCP - General Internal Medicine 06/20/24 Carrington Fritz MD [address] [place] [address], [address] [place], [place] [phone] Referring Internal Medicine 11/26/23 documented as of this encounter
--- OUTSIDE RECORDS SUMMARY | 2024-09-02 11:52 | XMS_ITS | Encounter Summary ---
Author Organization [facility] Address [id number] [address] [place] [address] Care Team Providers Care Senior Product Development Engineer Name Role Phone Carrington Fritz MD Primary Care Provider [phone] Reason for Visit * Reason Onset Date Comments Med Refill 04/08/2024 Encounter Details Date Type Department Care Team (Late st Contact Info) Description 04/08/2024 Refill [facility] Internal Medicine/Pediatrics [address] [place] [phone] Carrington Fritz MD [address] [place] [address], [address] [place] [address] Social History Tobacco Use Types Packs/Day Years [...] Description 09/15/2024 10:31 AM EDT Hospital Encounter [facility] - Pain Procedures [address] [place] [phone] Kenyon Prather MD [address] [place], [place] [phone] 09/15/2024 10:31 AM EDT - 09/15/2024 10:40 AM EDT Surgery [facility] - Pain Procedures [address] [place] [phone] Kenyon Prather MD [address] [place], [place] [phone] INJECTION BURSA INTERMEDIATE Bilat TMJ [65073 (CPT )] 09/15/2024 1:45 PM EDT Appointment [facility] - MRI Imaging [address] [place] [address] Carrington Fritz MD [address] [place] [address], [address] [place], [place] [phone] 10/19/2024 2:15 PM EDT Office Visit [facility] - Pain Management Clinic [address] [place] [phone] Miguel Hernandez PA [address] [place] [address] Scheduled Procedures Name Priority Associated Diagnoses Date/Ti me INJECTION BURSA INTERMEDIATE TMJ (temporomandibular joint disorder) 09/15/2024 10:31 AM EDT documented as of this encounter Visit Diagnoses Not on filedocumented in this encounter Additional Health Concerns Assessment Noted Time PHQ-9 Depression Total Score: 0 11/11/19 1:55 PM EDT documented as of this encounter Care Teams Senior Product Development Engineer Relationship Specialty Start Date End Date Carrington Fritz MD [address] [place] [address], [address] [place], [place] [phone] PCP - General Pediatrics 02/17/24 documented as of this encounter
--- OUTSIDE RECORDS SUMMARY | 2024-09-02 11:52 | XMS_ITS | Encounter Summary ---
Author Organization [facility] Address [id number] [address] [place] [address] Care Team Providers Care Professor Of Art History Name Role Phone Carrington Fritz MD Primary Care Provider [phone] Encounter Details Date Type Department Care Team (Late st Contact Info) Description 04/10/2024 Telephone [facility] - ENT [address] [facility] [place] [address] Azeb Chan RN Social History Tobacco Use Types Packs/Day Years [...] got money to buy more. Never True 04/13/2024 Within the past 12 months th e food we bought just didn't last and we didn't have money to get more. Never True 04/13/2024 Sex and Gender Information Value Date Recorded Sex Assigned at Not on file Legal Sex Male 1:06 PM EST Gender Identity Not on file Sexual Orientation Not on file documented as of this encounter Miscellaneous Notes * Telephone Encounter - Azeb Chan RN - 04/10/2024 8:01 AM EST Patient called and LVM in regards to referral that was placed by our office. * Telephone Encounter - Azeb Chan RN - 04/10/2024 8:01 AM EST LVM for patient to call me back at [phone] to review/answer and questions about the referral placed by our office. * Telephone Encounter - Azeb Chan RN - 04/10/2024 8:01 AM EST Called and expressed to patient per Dr. Wilson, Referral for Parker-facial was not placed by our office and you will need to call the Dentist who placed it. If they are unable to help we would be glad to help with the referral but do not see a reason for it to be STAT at this time. Patient verbalized acceptance of the information and will call our office if he needs assistance with the referral. documented in this encounter Plan of Treatment Upcoming Encounters Date Type Department Care Team (Latest Contact Info) Description 09/15/2024 10:31 AM EDT Hospital Encounter [facility] - Pain Procedures [address] [place] [phone] Kenyon Prather MD [address] [place] [address] 09/15/2024 10:31 AM EDT - 09/15/2024 10:40 AM EDT Surgery [facility] - Pain Procedures [address] [place] [phone] Kenyon Prather MD [address] [place] [address] INJECTION BURSA INTERMEDIATE Bilat TMJ [[id number] (CPT )] 09/15/2024 1:45 PM EDT Appointment [facility] - MRI Imaging [address] [place] [address] Carrington Fritz MD [address] [place] [address], [address] [place], [place] [phone] 10/19/2024 2:15 PM EDT Office Visit [facility] - Pain Management Clinic [address] [place] [phone] Miguel Hernandez PA [address] [place], [place] [phone] Scheduled Procedures Name Priority Associated Diagnoses Date/Ti me INJECTION BURSA INTERMEDIATE TMJ (temporomandibular joint disorder) 09/15/2024 10:31 AM EDT documented as of this encounter Visit Diagnoses Not on filedocumented in this encounter Additional Health Concerns Assessment Noted Time PHQ-9 Depression Total Score: 0 11/11/19 1:55 PM EDT documented as of this encounter Care Teams Professor Of Art History Relationship Specialty Start Date End Date Carrington Fritz MD [address] [place] [address], [address] [place], [place] [phone] PCP - General Pediatrics 02/17/24 documented as of this encounter
--- OUTSIDE RECORDS SUMMARY | 2024-09-02 11:53 | XMS_ITS | Encounter Summary ---
Author Organization [facility] Address [id number] [address] [place] [address] Care Team Providers Care Hot Repairman Name Role Phone Carrington Fritz MD Primary Care Provider Encounter Details Date Type Department Care Team ([facility] st Contact Info) Description 12/20/2023 Telephone [facility] Internal Medicine/Pediatrics [address] [place] [phone] Carrington Fritz MD [address] [place] [address], [address] [place], [place] [phone] Social History Tobacco Use Types Packs/Day Years Used Date Smoking Tobacco: Former Cigarettes Smokeless Tobacco: Former Alcohol Use Standard Drinks/Week Comments Not Currently 0 (1 standard drink = 0.6 oz pur e alcohol) PHQ-2 Answer Date Recorded Total Score 0 11/11/2023 Hunger Screening Answer Date Recorded Within the past 12 months we worried whether our food would run out before we got money to buy more. Never True 12/17/2023 Within the past 12 months th e food we bought just didn't last and we didn't have money to get more. Never True 12/17/2023 Sex and Gender Information Value Date Recorded Sex Assigned at Not on file Legal Sex Male 1:06 PM EST Gender Identity Not on file Sexual Orientation Not on file documented as of this encounter Miscellaneous Notes * Telephone Encounter - Tesha Murphy - 12/20/2023 3:04 PM EDT Garrison is not interested in increasing his Seroquel due to that causing him dehydration, he said that he was going to ask you to go back on Ambien the next time he comes in here.. He said the tramadol is helping but not enough, he thinks he needs 100 not 50 mg, he said it feels like an ice pick is stabbing him under his tongue all day long . He didn't say one way or another about PT. Please advise * Telephone Encounter - Carrington Fritz MD - 12/20/2023 3:04 PM EDT With a history of substance abuse in recovery, I think any type of controlled substance with potential for physical dependence and misuse would be a mistake. documented in this encounter Plan of Treatment Upcoming Encounters Date Type Department Care Team (Latest Contact Info) Description 09/15/2024 10:31 AM EDT Hospital Encounter [facility] - Pain Procedures [address] [place] [phone] Kenyon Prather MD [address] [place], [place] [phone] 09/15/2024 10:31 AM EDT - 09/15/2024 10:40 AM EDT Surgery [facility] - Pain Procedures [address] [place] [phone] Kenyon Prather MD [address] [place] [address] INJECTION BURSA INTERMEDIATE Bilat TMJ [ (CPT )] 09/15/2024 1:45 PM EDT Appointment [facility] - MRI Imaging [address] [place] [phone] Carrington Fritz MD [address] [place] [address], [address] [place], [place] [phone] 10/19/2024 2:15 PM EDT Office Visit [facility] - Pain Management Clinic [address] [place] [phone] Miguel Hernandez, PA [address] [place], [place] [phone] Scheduled Procedures Name Priority Associated Diagnoses Date/Ti me INJECTION BURSA INTERMEDIATE TMJ (temporomandibular joint disorder) 09/15/2024 10:31 AM EDT documented as of this encounter Visit Diagnoses Not on filedocumented in this encounter Additional Health Concerns Assessment Noted Time PHQ-9 Depression Total Score: 0 11/11/19 1:55 PM EDT documented as of this encounter Care Teams Hot Repairman Relationship Specialty Start Date End Date Carrington Fritz MD [address] [place] [address], [address] [place], [place] [phone] PCP - General Pediatrics 02/17/24 documented as of this encounter
--- OUTSIDE RECORDS SUMMARY | 2024-09-02 11:53 | XMS_ITS | Encounter Summary ---
Author Organization [facility] Address [address] [place] [address] Care Team Providers Care Sql Programmer Name Role Phone Carrington Fritz MD Unavailable [phone] Carrington Fritz MD Primary Care Provider + Source Comments In the event this information is protected by the Federal Confidentiality of Alcohol and Drug AbusePatient Records regulations: The Federal rules restrict any use of the information to criminally investigate or prosecute any alcohol or drug abuse patient.[facility] Encounter Details Date Type Department Care Team (Late st Contact Info) Description 01/26/2024 Patient Msg Otolaryngology [address] [place], [place] [phone] Caro Silva APRN.MOTOR AND CHASSIS INSPECTOR [address] [place] [address] Appointment Request Social History Tobacco Use Types Packs/Day Years Used Date Smoking Tobacco: Every Day Cigarettes 0.3 16 Smokeless Tobacco: Current Comments:Pt basically does c hew Alcohol Use Standard Drinks/Week Comments No 0 (1 standard drink = 0.6 oz pur e alcohol) PHQ-2 Answer Date Recorded PHQ-2 score 6 01/17/2024 Area Deprivation Index Answer Date Matthew rded National Score (1-100), lower number is lower ri sk 87 11/29/2023 State Score (1-10), lower number is lower risk 8 11/29/2023 Data from: https://www.neighborhoodatlas.medicine.[facility]/. 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 Speech Therapy [address] [place] [address] Carmen Johnson, CCC-EVP GLOBAL MULT[employer]IA SALES [address] [place] [address] 09/07/2024 8:50 AM EDT Office Visit Otolaryngology [address] [place] [address] Callie Don PA [address] [place] [address] THROAT ISSUE, SWALLOWING ISSUE, MOUTH 09/13/2024 7:30 AM EDT OT/PT/Speech Visit [facility] Speech Therapy [address] [place] [phone] Carmen Johnson, CCC-EVP GLOBAL MULT[employer]IA SALES [address] [place] [address] 09/20/2024 7:30 AM EDT OT/PT/Speech Visit [facility] Speech Therapy [address] [place] [phone] Carmen Johnson CCC-EVP GLOBAL MULTIMEDIA SALES [address] [place] [address] 09/27/2024 8:00 AM EDT OT/PT/Speech Visit [facility] Speech Therapy [address] [place] [phone] Yoli Hankins CCC-EVP GLOBAL MULTIMEDIA SALES [address] [place] [address] ST 10/02/2024 11:00 AM EDT Office Visit Internal Medicine [facility] [address] [place] [address] Sammie Landa APRN.CLOTH FINISHING RANGE OPERATOR CHIEF [address] [place], [place] [address] est care 10/25/2024 3:30 PM EDT Office Visit Neurology [address] [place] [address] Toya Wright DO [address] [place] [address] Facial lupillo. Injection sooner documented as of this encounter Visit Diagnoses Not on filedocumented in this encounter Care Teams Sql Programmer Relationship Specialty Start Date End Date Carrington Fritz MD [address] [place] [address], [address] [place], [place] [phone] PCP - General Internal Medicine 06/20/24 Carrington Fritz MD [address] [place] [address], [address] [place], [place] [phone] Referring Internal Medicine 11/26/23 documented as of this encounter
--- OUTSIDE RECORDS SUMMARY | 2024-09-02 11:53 | XMS_ITS | Patient Health Record ---
Author Organization [facility] Address [address] [place] [address] Care Team Providers Care Machinery Rigger Name Role Phone YevgeniyColette Primary Care Provider Alessandro Berg Unavailable [phone] Allergies Allergen (clinical drug ingredient) Drug/Non Drug Allergy documented on EMR Reaction Allergy Type Onset Date Status PCN (uncoded) Unknown Allergy Active Reason For Referral No Information Medications Medication SIG (Take, Route, Frequency, Duration) Notes Start Date End Date Status gabapentin Active Seroquel Active Problems Problem Type SNOMED Code ICD Code Onset Dates Problem Status W/U Status Risk Notes Problem 296680641014038 Pain in right fo ot (M79.671) Active confirmed Problem 336274369759882 Pain in left francisco t (M79.672) Active confirmed Problem 722020632 OM (onychomycosi s) (B35.1) Active confirmed Problem 67836349 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
--- OUTSIDE RECORDS SUMMARY | 2024-09-02 11:53 | XMS_ITS | Encounter Summary ---
Author Organization [facility] Address [address] [place] [address] Care Team Providers Care Scallop Raker Name Role Phone Carrington Fritz MD Unavailable [phone] Carrington Fritz MD Primary Care Provider + Source Comments In the event this information is protected by the Federal Confidentiality of Alcohol and Drug AbusePatient Records regulations: The Federal rules restrict any use of the information to criminally investigate or prosecute any alcohol or drug abuse patient.[facility] Reason for Visit * Reason Comments Orders Encounter Details Date Type Department Care Team (Late st Contact Info) Description 02/02/2024 Telephone Dermatology and Plastics [place] [facility] [place] [address] Mackenzie Staton MD [facility] [place] [address] Orders Social History Tobacco Use Types Packs/Day Years [...] is lower risk 8 11/29/2023 Data from: https://www.neighborhoodatlas.medicine.[facility]/. 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 Patient is asking the order be faxed to @ [phone]. Please advise. Patient has been identified by name and birthdate. Duration of symptoms: N/A Person calling: self Call patient at: at home [phone] (home) Was an appointment scheduled: No Closing statement: Results or non-symptom based questions: Thank you for calling [facility], your call will be returned within the next business day. Rachelle Berry documented in this encounter Plan of Treatment Upcoming Encounters Date Type Department Care Team (Late st Contact Info) Description 09/06/2024 7:30 AM EDT OT/PT/Speech Visit [facility] Speech Therapy [address] [place] [phone] Carmen Johnson CCC-TITLE COORDINATOR [address] [place] [address] 09/07/2024 8:50 AM EDT Office Visit Otolaryngology [address] [address] Callie Don PA [address] [place] [address] THROAT ISSUE, SWALLOWING ISSUE, MOUTH 09/13/2024 7:30 AM EDT OT/PT/Speech Visit [facility] Speech Therapy [address] [place] [phone] Carmen Johnson CCC-TITLE COORDINATOR [address] [place] [address] 09/20/2024 7:30 AM EDT OT/PT/Speech Visit [facility] Speech Therapy [address] [place] [phone] Carmen Johnson, CCC-TITLE COORDINATOR [address] [place] [address] 09/27/2024 8:00 AM EDT OT/PT/Speech Visit [facility] Speech Therapy [address] [place] [address] Yoli Hankins, CCC-TITLE COORDINATOR [address] [place] [address] ST 10/02/2024 11:00 AM EDT Office Visit Internal Medicine [facility] [address] [place], [place] [phone] Sammie Landa APRN.REHANGER [address] [place], [place] [address] est care 10/25/2024 3:30 PM EDT Office Visit Neurology [address] [place] [address] Toya Wright, [address] [place] [address] Facial lupillo. Injection sooner documented as of this encounter Visit Diagnoses Not on filedocumented in this encounter Care Teams Scallop Raker Relationship Specialty Start Date End Date Carrington Fritz MD [address] [place] [address], [address] [place] [address] PCP - General Internal Medicine 06/20/24 Carrington Fritz MD [address] [place] [address], [address] [place] [address] Referring Internal Medicine 11/26/23 documented as of this encounter
--- OUTSIDE RECORDS SUMMARY | 2024-09-02 11:53 | XMS_ITS | Encounter Summary ---
Author Organization [facility] Address [facility] [place] [address] Care Team Providers Care Data Entry Clerk Name Role Phone Carrington Fritz MD Unavailable [phone] Carrington Fritz MD Primary Care Provider + Source Comments In the event this information is protected by the Federal Confidentiality of Alcohol and Drug AbusePatient Records regulations: The Federal rules restrict any use of the information to criminally investigate or prosecute any alcohol or drug abuse patient.[facility] Encounter Details Date Type Department Care Team (Late st Contact Info) Description 02/10/2024 Patient Msg Head and Neck [place] [address] [place] [address] Provider, [facility] Appointment Request Social History Tobacco Use Types [...] risk 8 11/29/2023 Data from: https://www.neighborhoodatlas.[facility]/. Last address used for calculation [address] [facility] 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 [...] Visit [facility] Speech Therapy [address] [place] [address] Carmen Johnson, [facility]-EMERGENCY OPERATOR [address] [place] [address] 09/07/2024 8:50 AM EDT Office Visit Otolaryngology [address] [place] [address] Callie Don PA [address] [place] [address] THROAT ISSUE, SWALLOWING ISSUE, MOUTH 09/13/2024 7:30 AM EDT OT/PT/Speech Visit [facility] Speech Therapy [address] [place] [address] Carmen Johnson, CCC-EMERGENCY OPERATOR [address] [place] [address] 09/20/2024 7:30 AM EDT OT/PT/Speech Visit [facility] Speech Therapy [address] [place] [address] Carmen Johnson CCC-EMERGENCY OPERATOR [address] [place] [address] 09/27/2024 8:00 AM EDT OT/PT/Speech Visit [facility] Speech Therapy [address] [place] [address] Yoli Hankins CCC-EMERGENCY OPERATOR [address] [place] [address] 10/02/2024 11:00 AM EDT Office Visit Internal Medicine [facility] [address] [place], [place] [phone] Sammie Landa APRN.STAFFING CLERK [address] [place] [address] est care 10/25/2024 3:30 PM EDT Office Visit Neurology [address] [place] [address] Toya Wright DO [address] [place] [address] Facial lupillo. Injection sooner documented as of this encounter Visit Diagnoses Not on filedocumented in this encounter Care Teams Data Entry Clerk Relationship Specialty Start Date End Date Carrington Fritz MD [address] [facility], [address] [place] [address] PCP - General Internal Medicine 06/20/24 Carrington Fritz MD [address] [facility], [address] [place] [address] Referring Internal Medicine 11/26/23 documented as of this encounter
--- OUTSIDE RECORDS SUMMARY | 2024-09-02 11:53 | XMS_ITS | Encounter Summary ---
Author Organization [facility] Address [address] [place] [address] Care Team Providers Care Seater Grinder Name Role Phone Carrington Fritz MD Unavailable [phone] Carrington Fritz MD Primary Care Provider + Source Comments In the event this information is protected by the Federal Confidentiality of Alcohol and Drug AbusePatient Records regulations: The Federal rules restrict any use of the information to criminally investigate or prosecute any alcohol or drug abuse patient.[facility] Encounter Details Date Type Department Care Team (Late st Contact Info) Description 01/07/2024 Telephone Neurology Headache [facility] [address] [place] [address] [place] [address] [place] [address] Social History Tobacco Use Types Packs/Day Years [...] is lower risk 8 11/29/2023 Data from: https://www.neighborhoodatlas.medicine.[facility]/. 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 Answer Date of Assessment Author No 09/25/2013 8:21 AM EDT Pravin Cruz, DETAIL ASSEMBLER * Are you blind or do you have serious difficulty seeing, even when wearing glasses? Answer Date of Assessment Author No 09/25/2013 8:21 AM EDT Pravin Cruz, DETAIL ASSEMBLER * Do you have serious difficulty walking or climbing stairs? Answer Date of Assessment Author No 09/25/2013 8:21 AM EDT Pravin Cruz, DETAIL ASSEMBLER * Do you have difficulty dressing or bathing? Answer Date of Assessment Author No 09/25/2013 8:21 AM EDT Pravin Cruz, DETAIL ASSEMBLER * Because of a physical, mental, or emotional condition, do you have difficulty doing errands alone such as visiting a doctor's office or shopping? Answer Date of Assessment Author No 09/25/2013 8:21 AM EDT Pravin Cruz, DETAIL ASSEMBLER documented as of this encounter Mental Status * Because of a physical, mental, or emotional condition, do you have serious difficulty concentrating, remembering, or making decisions? Answer Entry Date Author Yes 09/25/2013 8:21 AM EDT Pravin Cruz, DETAIL ASSEMBLER documented in this encounter Miscellaneous Notes * Telephone Encounter - Treasure Dent RN - 01/11/2024 2:49 PM EST Spoke with patient (verified name and date of ) and his question was if we can view his MRI ofTMJ from [facility]. I informed patient that we can view the findings, but cannot see the images. Informed patient that if he can bring discs to next appointment that they can be uploaded. Patient would like Dr. Peacock to review MRI of TMJ. Patient states that when he tries to eat his lips and cheeks swell. Patient reports that in the front under his lip on the roof of his mouth there is a white line. Patient states that roof of his mouth and his gums are white. 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 Informed patient that with what he is experiencing that we would recommend scheduling a follow up appointment with an VIDEOGRAPHER or PA to discuss. Patient verbalized understanding. * Telephone Encounter - Treasure Dent RN - 01/11/2024 11:49 AM EST LVM for patient to call back office to see what questions he has in regards to his test results. * Telephone Encounter - Treasure Dent RN - 01/10/2024 2:46 PM EST LVM for patient to call back office to see what questions he has in regards to his test results. * Telephone Encounter - Treasure Dent RN - 01/10/2024 8:56 AM EST Forwarded to provider for review. RENEE: 12/10/2023 Future OV: None scheduled MRI Brain: 01/06/2024 * Telephone Encounter - Tatyana Fountain - 01/07/2024 4:48 PM EDT Patient had test result questions. Patient states that he is in a lot of pain. Verified phone number. JCL 01/07/24, 16:51 documented in this encounter Plan of Treatment Upcoming Encounters Date Type Department Care Team (Late st Contact Info) Description 09/06/2024 7:30 AM EDT OT/PT/Speech Visit [facility] Speech Therapy [address] [place] [phone] Carmen Johnson, CCC-FINISH SPECIALIST [address] [place] [address] 09/07/2024 8:50 AM EDT Office Visit Otolaryngology [address] [place] [address] Callie Don PA [address] [place] [address] THROAT ISSUE, SWALLOWING ISSUE, MOUTH 09/13/2024 7:30 AM EDT OT/PT/Speech Visit [facility] Speech Therapy [address] [place] [phone] Carmen Johnson CCC-FINISH SPECIALIST [address] [place] [address] 09/20/2024 7:30 AM EDT OT/PT/Speech Visit [facility] Speech Therapy [address] [place] [phone] Carmen Johnson CCC-FINISH SPECIALIST [address] [place] [address] 09/27/2024 8:00 AM EDT OT/PT/Speech Visit [facility] Speech Therapy [address] [place] [phone] Yoli Hankins CCC-FINISH SPECIALIST [address] [place] [address] ST 10/02/2024 11:00 AM EDT Office Visit Internal Medicine [facility] [address] [place] [address] Sammie Landa APRN.[employer] SUPERINTENDENT [address] [place] [address] est care 10/25/2024 3:30 PM EDT Office Visit Neurology [address] [place] [address] Toya Wright [address] [place] [address] Facial lupillo. Injection sooner documented as of this encounter Visit Diagnoses Not on filedocumented in this encounter Care Teams Seater Grinder Relationship Specialty Start Date End Date Carrington Fritz MD [address] [place] [address], [address] [place], [place] [phone] PCP - General Internal Medicine 06/20/24 Carrington Fritz MD [address] [place] [address], [address] [place], [place] [phone] Referring Internal Medicine 11/26/23 documented as of this encounter
--- OUTSIDE RECORDS SUMMARY | 2024-09-02 11:53 | XMS_ITS | Encounter Summary ---
Author Organization [facility] Address [address] [place] [address] Care Team Providers Care Kitchen Chef Name Role Phone Carrington Fritz MD Unavailable [phone] Carrington Fritz MD Primary Care Provider + Source Comments In the event this information is protected by the Federal Confidentiality of Alcohol and Drug AbusePatient Records regulations: The Federal rules restrict any use of the information to criminally investigate or prosecute any alcohol or drug abuse patient.[facility] Encounter Details Date Type Department Care Team (Late st Contact Info) Description 01/12/2024 Patient Msg Neurology Headache [facility] [address] [place] [address] [place] [address] [place] [address] Appointment Request Social History Tobacco Use Types Packs/Day Years Used Date Smoking Tobacco: Every Day Cigarettes 0.3 16 Smokeless Tobacco: Current Comments:Pt basically does c hew Alcohol Use Standard Drinks/Week Comments No 0 (1 standard drink = 0.6 oz pur e alcohol) PHQ-2 Answer Date Recorded PHQ-2 score 6 01/12/2024 Area Deprivation Index Answer Date Matthew rded National Score (1-100), lower number is lower ri sk 87 11/29/2023 State Score (1-10), lower number is lower risk 8 11/29/2023 Data from: https://www.neighborhoodatlas.medicine.[facility]/. 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 Not [...] 09/25/2013 8:21 AM EDT Pravin Cruz, DIRECTOR [employer]ACLE RETAIL * Because of a physical, mental, or [...] Description 09/06/2024 7:30 AM EDT OT/PT/Speech Visit [facility] Speech Therapy [address] [place] [address] Carmen Johnson, CCC-COMMUNICATION ELECTRONIC TECHNICIAN [address] [place] [address] 09/07/2024 8:50 AM EDT Office Visit Otol[facility]ology [address] [facility] [place] [address] Callie Don PA [address] [place] [address] THROAT ISSUE, SWALLOWING ISSUE, MOUTH 09/13/2024 7:30 AM EDT OT/PT/Speech Visit [facility] Speech Therapy [address] [place] [phone] Carmen Johnson, CCC-COMMUNICATION ELECTRONIC TECHNICIAN [address] [place] [address] 09/20/2024 7:30 AM EDT OT/PT/Speech Visit [facility] Speech Therapy [address] [place] [phone] Carmen Johnson, CCC-COMMUNICATION ELECTRONIC TECHNICIAN [address] [place] [address] 09/27/2024 8:00 AM EDT OT/PT/Speech Visit [facility] Speech Therapy [address] [place] [phone] Yoli Hankins CCC-COMMUNICATION ELECTRONIC TECHNICIAN [address] [place] [address] 10/02/2024 11:00 AM EDT Office Visit Internal Medicine [place] [address] [place] [address] Sammie aLnda APRN.COTTON WEIGHER OPERATOR [address] [place] [address] est care 10/25/2024 3:30 PM EDT Office Visit Neurology [address] [place] [address] Toya Wright DO [address] [place] [address] Facial lupillo. Injection sooner documented as of this encounter Visit Diagnoses Not on filedocumented in this encounter Care Teams Kitchen Chef Relationship Specialty Start Date End Date Carrington Fritz MD [address] [place] [address], [address] [place], [place] [phone] PCP - General Internal Medicine 06/20/24 Carrington Fritz MD [address] [place] [address], [address] [place], [place] [phone] Referring Internal Medicine 11/26/23 documented as of this encounter
--- OUTSIDE RECORDS SUMMARY | 2024-09-02 11:53 | XMS_ITS | Encounter Summary ---
Author Organization [facility] [employer] [facility] [employer] Address [id number] [address] [place] [address] Care Team Providers Care Ordnance Artificer Name Role Phone Carrington Fritz MD Primary Care Provider [phone] Encounter Details Date Type Department Care Team ([facility] st Contact Info) Description 01/11/2024 Telephone [facility] - ENT [address] [facility] [place] [address] Yuly Wilson-Randa, DO [address] [facility] [place] [address] Social History Tobacco Use Types Packs/Day Years [...] encounter Miscellaneous Notes * Telephone Encounter - Destinee Sutton - 01/11/2024 3:40 PM EST Patient is scheduled with Dr. Wilson 01/12/24 in [place]. documented in this encounter Plan of Treatment Upcoming Encounters Date Type Department Care Team (Latest Contact Info) Description 09/15/2024 10:31 AM EDT Hospital Encounter [facility] - Pain Procedures [address] [facility] [facility] [address] Kenyon Prather MD [address] [place] [place] [address] 09/15/2024 10:31 AM EDT - 09/15/2024 10:40 AM EDT Surgery [facility] - Pain Procedures [address] [facility] [phone] Kenyon Prather MD [address] [place] [place] [address] INJECTION BURSA INTERMEDIATE Bilat TMJ [38137 (CPT )] 09/15/2024 1:45 PM EDT Appointment [facility] - MRI Imaging [address] [facility] [phone] Carrington Fritz MD [address] [place] [address], [address] [place] [address] 10/19/2024 2:15 PM EDT Office Visit [facility] [address] [place] [address] Miguel Hernandez PA [address] [place] [address] Scheduled Procedures Name Priority Associated Diagnoses Date/Ti me INJECTION BURSA INTERMEDIATE TMJ (temporomandibular joint disorder) 09/15/2024 10:31 AM EDT documented as of this encounter Visit Diagnoses Not on filedocumented in this encounter Additional Health Concerns Assessment Noted Time PHQ-9 Depression Total Score: 0 11/11/19 1:55 PM EDT documented as of this encounter Care Teams Ordnance Artificer Relationship Specialty Start Date End Date Carrington Fritz MD [address] [place] [address], [address] [place] [address] PCP - General Pediatrics 02/17/24 documented as of this encounter
--- OUTSIDE RECORDS SUMMARY | 2024-09-02 11:53 | XMS_ITS | Encounter Summary ---
Author Organization [facility] Address [address] [place] [address] Care Team Providers Care Tire Service Supervisor Name Role Phone Carrington Fritz MD Unavailable [phone] Carrington Fritz MD Primary Care Provider + Source Comments In the event this information is protected by the Federal Confidentiality of Alcohol and Drug AbusePatient Records regulations: The Federal rules restrict any use of the information to criminally investigate or prosecute any alcohol or drug abuse patient.[facility] Encounter Details Date Type Department Care Team (Late st Contact Info) Description 01/07/2024 Patient Msg Otolaryngology [address] [place], [place] [phone] Caro Silva APRN.FINAL FINISHER FORGING DIES [address] [place] [address] Appointment Request Social History Tobacco [...] risk 8 11/29/2023 Data from: https://www.neighborhoodatlas.medicine.[facility]/. 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 [...] Assessment Author No 09/25/2013 8:21 AM EDT Vero Cruz LPN * Do you have serious [...] Description 09/06/2024 7:30 AM EDT OT/PT/Speech Visit [facility] Speech Therapy [address] [place] [address] Carmen Johnson, CCC-TUBE DEPATCHER [address] [place] [address] 09/07/2024 8:50 AM EDT Office Visit Otolaryngology [address] [place] [address] Callie Don PA [address] [place] [address] THROAT ISSUE, SWALLOWING ISSUE, MOUTH 09/13/2024 7:30 AM EDT OT/PT/Speech Visit [facility] Speech Therapy [address] [place] [phone] Carmen Johnson, CCC-TUBE DEPATCHER [address] [place] [address] 09/20/2024 7:30 AM EDT OT/PT/Speech Visit [facility] Speech Therapy [address] [place] [phone] Carmen Johnson CCC-TUBE DEPATCHER [address] [place] [address] 09/27/2024 8:00 AM EDT OT/PT/Speech Visit [facility] Speech Therapy [address] [place] [phone] Yoli Hankins CCC-TUBE DEPATCHER [address] [place] [address] ST 10/02/2024 11:00 AM EDT Office Visit Internal Medicine [facility] [address] [place] [address] Sammie Landa APRN.GAUGE AND WEIGH MACHINE ADJUSTER [address] [place], [place] [address] est care 10/25/2024 3:30 PM EDT Office Visit Neurology [address] [place] [address] Toya Wright DO [address] [place] [address] Facial lupillo. Injection sooner documented as of this encounter Visit Diagnoses Not on filedocumented in this encounter Care Teams Tire Service Supervisor Relationship Specialty Start Date End Date Carrington Fritz MD [address] [place] [address], [address] [place], [place] [phone] PCP - General Internal Medicine 06/20/24 Carrington Fritz MD [address] [place] [address], [address] [place], [place] [phone] Referring Internal Medicine 11/26/23 documented as of this encounter
--- OUTSIDE RECORDS SUMMARY | 2024-09-02 11:54 | XMS_ITS | CCD ---
Author Organization [facility] Care Team Providers Care Cds Sales Advisor Name Role Phone Shaw Bermudez Unavailable Unavailable KAMEL, SAMEH S Unavailable Unavailable KAMEL, SAMEH S Unavailable Unavailable PHYSICIAN, NONE Unavailable Unavailable MICHELLE OVIEDO Unavailable Unavailable PREM PIPER Primary Care Unavailable DONAL DIXON Attending Unavailable Mechelle Reardon MD Primary Care Provider Unavailable Primary Care Provider UnavailJESSIE Robb Attending Unavailable NANCY GRAY Consulting Unavailable NO, PHYSICIAN Primary Care Unavailable JESSIE RAMÍREZ Admitting Unavailable NO, PHYSICIAN Primary Care Unavailable JESSIE RAMÍREZ Admitting Unavailable NO, PHYSICIAN Primary Care Unavailable HARVEY LYONS Attending Unavaila ALLIE Sabillon Attending Unavailable MECHELLE REARDON Primary Care Unavailable MARLON ABEBE Attending Unavailable Home Garner Unavailable Dr. Home Garner Primary Care UnavailDr. Ezequiel Medley Attending Unava ilable Carbajalfreida MERCERSWinston Attending Unavailable Carbajal RUSLANSBonillaeen Primary Care Provider Colette Almaguer CNP Primary Care Provider CELY, P. JEFFREY Referring Unavailable CELY, P. JEFFREY Attending Unavailable SELF, SELF Primary Care Unavailable CELY, P. JEFFREY Attending Unavailable CELY, P. JEFFREY Referring Unavailable CELY, P. JEFFREY Attending Unavailable CELY, P. JEFFREY Referring Unavailable CELY, P. JEFFREY Referring Unavailable SELF, SELF Primary Care Unavailable CELY, P. JEFFREY Attending Unavailable SELF, SELF Referring Unavailable CELY, P. JEFFREY Attending Unavailable SELF, SELF Primary Care Unavailable Unavailable Primary Care Provider UnavailFabby Recinos DMD, Babs Unavailable [phone] Phillip Russo Attending Unavailab Phillip Alegre Admitting Unavailab Carrington Padron MD Unavailable [phone] CARRINGTON FRITZ Attending Unavailable CARRINGTON FRITZ Referring Unavailable PRATIMAESTFREDDY, CARRINGTON Cage Primary Care Unavailable YON CHONG Attending Unavailable CARRINGTON FRITZ Referring Unavailable HIESTFREDDY, CARRINGTON Cage Primary Care Unavailable FRANCIA, YON Referring Unavailable PRATIMAESTFREDDY, CARRINGTON Cage Primary Care Unavailable CARRINGTON FRITZ Referring Unavailable BEVERLEY, CARRINGTON Cage Primary Care Unavailable CARRINGTON FRITZ Referring Unavailable PRATIMAESTCARRINGTON HAYES Primary Care Unavailable Unavailable Primary Care Provider UnavailVanesa Leong Unavailable Colette Almaguer CNP Unavailable Unavailable Primary Care Provider UnavailCarrington Ndiaye MD Primary Care Provider Carmen Mcadams MD Primary Care Provider NANCIE HUERTA MD Attending Unavailable Yevgeniy MOREColette BECKMAN Primary Care Provide r Carrington Fritz MD Primary Care Provider PROVIDER, UNKNOWN Referring Unavailable Carrington Fritz MD Primary Care Provider CARRINGTON FRITZ Referring Unavailable CARRINGTON FRITZ Primary Care Unavailable Carrington Fritz MD Primary Care Provider ABBE, CARMEN Primary Care Unavailable NUR, KULWINDER R Attending Unavailable NUR, KULWINDER R Referring Unavailable ABBE, CARMEN Primary Care Unavailable ABBE, CARMEN Primary Care Unavailable NUR, KULWINDER R Attending Unavailable NUR, KULWINDER R Referring Unavailable ABBE, CARMEN Referring Unavailable ABBE, CARMEN Primary Care Unavailable ABBE, CARMEN Attending Unavailable ABBE, CARMEN Primary Care Unavailable ABBE, CARMEN Attending Unavailable ABBE, CARMEN Referring Unavailable ABBE, CARMEN Primary Care Unavailable ABBE, CARMEN Attending Unavailable ABBE, CARMEN Referring Unavailable ABBE, CARMEN Primary Care Unavailable NUR, KULWINDER R Attending Unavailable NUR, KULWINDER R Referring Unavailable Clemow DMD, MD, Lyle Unavailable [phone] RICHIE, AKI Admitting Unavailable RICHIE, AKI Attending Unavailable RICHIE, AKI Admitting Unavailable BOCIO RECINOS, BABS Attending Unavaila ble RICHIE, AKI Admitting Unavailable BOCIO RECINOS, BABS Attending Unavaila ble RICHIE, AKI Admitting Unavailable LACHPRISCA Attending Unavailable RICHIE, AKI Admitting Unavailable HI, JEIMY Attending Unavailable HI, JEIMY Attending Unavailable RICHIE, AKI Admitting Unavailable HI, JEIMY Attending Unavailable RICHIE, AKI Admitting Unavailable RICHIE, AKI Admitting Unavailable LYLE BAILEY Attending Unavailable HI, JEIMY Attending Unavailable RICHIE, AKI Admitting Unavailable KAVIN BACA Attending Unavaila ble RICHIE, AKI Admitting Unavailable HI, JEIMY Attending Unavailable RICHIE, AKI Admitting Unavailable RICHIE, AKI Attending Unavailable RICHIE, AKI Admitting Unavailable NO PCP, NO PCP Primary Care Unavailable LOVE PRUITT Attending Unavailable LOVE PRUITT Referring Unavailable NO PCP, NO PCP Primary Care Unavailable NO PCP, NO PCP Primary Care Unavailable YOLANDA BUSTILLOS Attending Unavailable YOLANDA BUSTILLOS Attending Unavailable YOLANDA BUSTILLOS Referring Unavailable NO PCP, NO PCP Primary Care Unavailable LYN NAVARRETE Attending Unavailable COLETTE ALMAGUER Primary Care Unavailable COLETTE ALMAGUER Primary Care Unavailable HUONG GRAVES Attending Unavailable COLETTE ALMAGUER Primary Care Unavailable THOMPSON HEREDIA Attending Unavailable CARRINGTON FRITZ Primary Care Unavailable LYN NAVARRETE Attending Unavailable CARRINGTON FRITZ Primary Care Unavailable NIEVES REYES Attending Unavailab le HIESTCARRINGTON HAYES Primary Care Unavailable HIESTFREDDY, CARRINGTON Cage Primary Care Unavailable HIESTFREDDY, CARRINGTON Cage Primary Care Unavailable CHRISTINA CHACON Attending Unavailable HIESTCARRINGTON HAYES Primary Care Unavailable LYN NAVARRETE Attending Unavailable GOLD JONES Attending Unavailable CARRINGTON FRITZ Referring Unavailable [place], CARRINGTON Cage Primary Care Unavailable [place], CARRINGTON Cage Primary Care Unavailable LAURENCE BLANKENSHIP Admitting Unavailable LAURENCE BLANKENSHIP Attending Unavailable CARRINGTON FRITZ Referring Unavailable BEVERLEY, CARRINGTON Cage Primary Care Unavailable LAURENCE BLANKENSHIP Attending Unavailable LAURENCE BLANKENSHIP Referring Unavailable CARRINGTON FRITZ Primary Care Unavailable GOLD JONES Attending Unavailable HIESTANDCARRINGTON Referring Unavailable HIESTAND, CARRINGTON Cage Primary Care Unavailable GABE MARIN Referring Unavailable HIESTAND, CARRINGTON Cage Primary Care Unavailable GABE MARIN Referring Unavailable HIESTAND, CARRINGTON Cage Primary Care Unavailable HIESTAND, CARRINGTON Cage Primary Care Unavailable HIESTAND, CARRINGTON Cage Attending Unavailable HIESTAND, CARRINGTON Cage Referring Unavailable HIESTAND, CARRINGTON Cage Primary Care Unavailable GOLD JONES Attending Unavailable HIESTAND, CARRINGTON Cage Referring Unavailable HIESTAND, CARRINGTON Cage Primary Care Unavailable GABE MARIN Referring Unavailable HIESTAND, CARRINGTON Cage Primary Care Unavailable LAURENCE BLANKENSHIP Admitting Unavailable LAURENCE BLANKENSHIP Attending Unavailable PRATIMAESTFREDDY, CARRINGTON Cage Referring Unavailable HIESTAND, CARRINGTON Cage Primary Care Unavailable LAURENCE BLANKENSHIP Attending Unavailable LAURENCE BLANKENSHIP Referring Unavailable HIESTAND, CARRINGTON Cage Primary Care Unavailable KAREN, GOLD Sethi Attending Unavailable PRATIMAESTFREDDY, CARRINGTON Cage Referring Unavailable HIESTAND, CARRINGTON Cage Primary Care Unavailable GABE MARIN Referring Unavailable HIESTAND, CARRINGTON Cage Primary Care Unavailable GOLD JONES Attending Unavailable HIESTAND, CARRINGTON Cage Referring Unavailable HIESTAND, CARRINGTON Cage Primary Care Unavailable HIESTAND, CARRINGTON Cage Primary Care Unavailable LYN NAVARRETE Attending Unavailable PRATIMAESTCARRINGTON HAYES Attending Unavailable HIESTAND, CARRINGTON Cage Primary Care Unavailable HIESTFREDDY, CARRINGTON Cage Attending Unavailable HIESTCARRINGTON HAYES Referring Unavailable HIESTAND, CARRINGTON Cage Primary Care Unavailable [place], CARRINGTON Cage Attending Unavailable HIESTCARRINGTON HAYES Referring Unavailable HIESTAND, CARRINGTON Cage Primary Care Unavailable HIESTFREDDY, CARRINGTON Cage Referring Unavailable HIESTAND, CARRINGTON Cage Primary Care Unavailable STEVE, FRAN-SARAHI Attending Unavailable HIESTANDCARRINGTON Referring Unavailable HIESTAND, CARRINGTON Cage Primary Care Unavailable HIESTFREDDY, CARRINGTON Cage Attending Unavailable HIESTCARRINGTON HAYES Referring Unavailable HIESTAND, CARRINGTON Cage Primary Care Unavailable HIESTCARRINGTON HAYES Attending Unavailable HIESTANDCARRINGTON Referring Unavailable HIESTAND, CARRINGTON Cage Primary Care Unavailable VU, FRAN-SARAHI Attending Unavailable HIESTCARRINGTON HAYES Referring Unavailable HIESTAND, CARRINGTON Cage Primary Care Unavailable [place], CARRINGTON Cage Attending Unavailable HIESTCARRINGTON HAYES Referring Unavailable HIESTAND, CARRINGTON Cage Primary Care Unavailable HIESTANDCARRINGTON Attending Unavailable HIESTAND, CARRINGTON Cage Referring Unavailable HIESTAND, CARRINGTON Cage Primary Care Unavailable FRAN WILSON-SARAHI Attending Unavailable PRATIMAESTFREDDY, CARRINGTON Cage Referring Unavailable HIESTAND, CARRINGTON Cage Primary Care Unavailable HIESTAND, CARRINGTON Cgae Attending Unavailable HIESTAND, CARRINGTON Cgae Referring Unavailable HIESTAND, CARRINGTON Cage Primary Care Unavailable HIESTAND, CARRINGTON Cage Attending Unavailable HIESTAND, CARRINGTON Cage Referring Unavailable HIESTAND, CARRINGTON Cage Primary Care Unavailable Home Garner MD Primary Care Provider HOME GARNER Primary Care Unavailable RYANN TRAYLOR Attending Unavailable HOME GARNER Primary Care Unavailable STEPHANIE OTOOLE Attending Unavailable [facility] UnavailJUAN F Muñoz Attending Unavailable [facility] UnavailCHERI Paredes Attending Unavailable KORY KIRKLAND Referring Unavailable [facility] UnavailCHARI Farrell Attending Unavailable EYAL GARCIA Referring Unavailable ROSSANA HARDING Attending Unavailable LYN SHIPMAN Referring Unavailable JOSE R AQUINO Attending Unavailable KAY SIDDIQI Referring Unavailable GABE MARIN Referring Unavailable SELF Referring Unavailable BRANDY ERICKSON Attending Unavaila ble HIESTBANNER MD [facility] UnavailDONAL Jain Attending Unavailable DONAL HAYS Admitting Unavailable BRANDY ERICKSON Attending [facility]availa ble [facility] Unavail[facility] Jain Referring Unavailable JAMIE NUR Attending Unavailable GABE MARIN Attending Unavailable BRANDY ERICKSON Referring Unavaila LYN Becerra Attending Unavailable BRANDY ERICKSON Referring Unavaila TATYANA Ledesma Attending Unavailable SELF Referring Unavailable KORY KIRKLAND Attending Unavailable SELF Referring Unavailable ERICA HART Attending Unavailable [facility] UnavailDONAL Jain Referring Unavailable [facility] UnavailSANJANA Goodwin Referring Unavailable [facility] UnavailJUAN F Muñoz Attending Unavailable KORY KIRKLAND Referring Unavailable EYAL GARCIA Attending Unavailable JOSE R AQUINO Referring Unavailable DIYA BONILLA Attending Unavailable LYN SHIPMAN Referring Unavailable MACKENZIE STATON Attending Mary Ann KAY Truong Attending Unavailable KORY KIRKLAND Referring Unavailable SELF Referring Unavailable GABE MARIN Attending Unavailable DONAL HAYS Attending Unavailable Allergies Allergy Classification Reported Allergen(s) Allergy Type Date of Onset Reaction(s) Facility Penicillins (antibiotic) (1 source) Penicillins Drug Allergy 8 Swelling [facility] (20 sources) Penicillins; Translations: [PENICILLINS] Propensity to adverse reactions 8 Anaphylaxis, Cough, Swelling [facility] Work Phone: (1 source) Penicillin Drug Allergy Angioedema [facility] (19 sources) Penicillin V Drug Allergy 4 Skin Rashes / Eruption of skin, Hives / Urticaria [facility] (7 sources) Penicillins Drug Allergy 8 Anaphylaxis, Swelling, Anaphylactic Shock, Angioedema, Cough, Hives, Other, Rash [facility] (20 sources) Penicillins Propensity to adverse reactions to drug 8 Anaphylaxis, Cough, Swelling [facility] Medications Current Medications Medication Drug Class(es) Dates Sig (Normalized) Sig (Original) acetaminophen 325 mg oral tablet (20 sources) Start: 10-28-2023 End: 10-28-2023 650 mg, Oral, STAT, 1 dose, On Imelda 10/28/23 at 1435 Start: 10-28-2023 take 1 tablet by nicholas th every six hours as needed for pain acetaminophen (TYLENOL) 500 MG tablet Take 1 Tablet by mouth every 6 hours as needed for Pain or Fever. 30 Tablet 10/28/2023 Active Start: 04-26-2023 End: 05-10-2023 Acetaminophen 500 MG Oral Ta blet 04/26/2023 - 05/10/2023 Provider: Colette Almaguer CNP ALPRAZolam 1 mg oral tablet (17 sources) Benzodiazepine Start: 12-16-2023 End: 02-15-2024 ALPRAZolam (XANAX) 1 MG tablet ALPRAZolam (XANAX) 1 mg tablet Indications: Anxiety Take 1 tab 30 minutes prior to MRI. May repeat once if needed. 2 tablet 12/16/2023 Active 12/16/2023 Active atomoxetine 40 mg oral capsule (20 sources) Norepinephrine Reuptake Inhibitor Start: 07-07-2023 End: 03-06-2024 take 1 capsule by mouth once daily atomoxetine (STRATTERA) 40 MG capsule Take 40 mg by mouth daily. 08/05/2023 Active Start: 02-25-2023 End: 05-10-2023 Atomoxetine HCl 40 MG Oral C apsule 02/25/2023 - 05/10/2023 Provider: b complex, c, folic acid 1 mg renal vitamins (NEPHROCAPS) 1 mg capsule (16 sources) take 1 capsule by mouth once daily in the morning b complex, c, folic acid 1 mg renal vitamins (NEPHROCAPS) 1 mg capsule Take 1 capsule by mouth every morning. Active buprenorphine 8 mg / naloxone 2 mg sublingual film (1 source) Partial Opioid Agonist, Opioid Antagonist Start: buprenorphine-naloxon e (SUBOXONE) 8-2 mg film 08/17/2024 Active Calcium Magnesium Zinc 333-133-5 MG Oral Tablet (7 sources) Start: Calcium Magnesium Zinc 333-133-5 MG Oral Tablet 03/06/2024 Provider: Calcium Magnesium Zinc 333-133-5 MG TABS (3 sources) Start: Calcium Magnesium Zinc 333-133-5 MG TABS Take by mouth. 03/06/2024 Active chlorproMAZINE hydrochloride 50 mg oral tablet (20 sources) Phenothiazine Start: End: take 2 tablets by mouth once chlorproMAZINE (THORAZINE) 50 MG tablet Take 100 mg by mouth once. 12/31/2023 Active ciclopirox 80 mg/ml topical solution (20 sources) Start: ciclopirox (PENLAC) 8 % solution APPLY TO AFFECTED TOENAIL AND ADJACENT SKIN ONCE DAILY IN COMBINA... (REFER TO PRESCRIPTION NOTES). 08/19/2023 Active Start: 05-10-2023 End: 07-15-2023 Ciclopirox 8% External Solut ion 06/03/2023 - 07/15/2023 Provider: Colette Almaguer CNP clonazePAM 1 mg oral tablet (20 sources) Benzodiazepine Start: 04-04-2024 End: 08-09-2024 take 1 tablet by mouth every twelve hours as needed clonazePAM (KLONOPIN) 1 mg tablet Take 1 mg by mouth two times a day as needed for anxiety. 06/01/2024 Active Start: 02-15-2024 End: 04-04-2024 take 2 tablets by mouth twice daily as needed clonazePAM (KlonoPIN) 0.5 MG tablet Take 1 mg by mouth 2 times daily as needed. 03/16/2024 Active Start: 02-15-2024 End: 03-16-2024 take 1 tablet by mouth twice daily clonazePAM (KlonoPIN) 0.5 mg tablet Take 0.5 mg by mouth twice a day. 02/15/2024 Active clotrimazole 10 mg oral lozenge (7 sources) Azole Antifungal Start: 12-28-2023 End: 01-07-2024 take 1 tablet by mouth three times daily clotrimazole (MYCELEX) 10 MG roxana DISSOLVE 1 TABLET BY MOUTH THREE TIMES DAILY FOR 10 DAYS 12/29/2023 Active Start: 11-24-2023 End: 12-04-2023 take 1 tablet by mouth three times daily clotrimazole (MYCELEX) 10 mg roxana Indications: Oral thrush Dissolve 1 tablet (10 mg total) in the mouth 3 (three) times a day for 10 days. 30 tablet 11/24/2023 12/04/2023 Active Start: 11-11-2023 End: 11-18-2023 take 1 tablet by mouth five times daily clotrimazole (MYCELEX) 10 mg roxana Indications: Thrush Dissolve 1 tablet (10 mg total) in the mouth 5 (five) times a day for 7 days. 35 tablet 11/11/2023 11/18/2023 Active CoQ-10 150 MG Oral Capsule (14 sources) Start: 03-06-2024 End: 09-02-2024 CoQ-10 150 MG Oral Capsule 03/06/2024 - 09/02/2024 Provider: Vanesa RILEY Start: 08-25-2023 End: 03-06-2024 CoQ-10 150 MG Oral Capsule 0 08/25/2023 - 03/06/2024 Provider: Colette Almaguer CNP cyanocobalamin, vitamin B-12, (B-12 COMPLIANCE INJECTION) (10 sources) cyanocobalamin, vitamin B-12, (B-12 COMPLIANCE INJECTION) by INJECTION(UNSPECIFIED PARENTERAL ROUTES) route once every month. Active cyclobenzaprine hydrochloride 10 mg oral tablet (18 sources) Muscle Relaxant Start: 024 End: 025 take 1 tablet by mouth twice daily as needed for muscle spasms cyclobenzaprine (FLEXERIL) 10 MG tablet TAKE 1 TABLET BY MOUTH TWICE DAILY NEEDED FOR MUSCLE SPASM 02/04/2024 Active take 0.5-1 tablets b y mouth three times daily as needed for pain cyclobenzaprine (FLEXERIL) 10 mg tablet TAKE 1/2 TO 1 (ONE-HALF TO ONE) TABLET BY MOUTH THREE TIMES DAILY NEEDED FOR MUSCLE PAIN MAY CAUSE DROWSINESS Active Daily Value Multivitamin Oral Tablet (9 sources) Start: 08-25-2023 Daily Value Multivitamin Oral Tablet 08/25/2023 Provider: Colette Almaguer CNP diclofenac sodium 0.01 mg/mg topical gel (17 sources) Nonsteroidal Anti-inflammatory Drug Start: 09-24-2023 End: 09-30-2023 diclofenac (VOLTAREN) 1 % GEL topical gel Apply 2 g topically 4 times daily as needed for Pain (in arm joints). 3 Tube 3 09/30/2023 Active doxycycline hyclate 100 mg oral capsule (20 sources) Tetracycline-class Drug Start: 01-17-2024 End: 01-24-2024 doxycycline (VIBRAMYCIN) 100 MG capsule 01/17/2024 Active Start: 11-06-2023 End: 11-13-2023 take 1 capsule by mouth in the morning, then take 1 capsule by mouth at bedtime doxycycline (VIBRAMYCIN) 100 mg capsule Take 1 capsule (100 mg total) by mouth in the morning and 1 capsule (100 mg total) before bedtime. Do all this for 7 days. 14 capsule 11/06/2023 11/13/2023 Active Start: 09-29-2023 DOXYCYCLINE PO 09/29/2023 Active Start: 04-12-2023 End: 05-10-2023 Doxycycline Hyclate 100 MG O ral Tablet 04/12/2023 - 05/10/2023 Provider: Colette Almaguer CNP DULoxetine 30 mg delayed release oral capsule (7 sources) Serotonin and Norepinephrine Reuptake Inhibitor Start: 07-21-2024 End: 10-26-2024 take 1 capsule by mouth once daily, then take 2 capsules by mouth once daily DULoxetine (CYMBALTA) 30 mg capsule Take 1 capsule by mouth once daily for 7 days, THEN 2 capsules once daily. 30 capsule 2 07/21/2024 10/26/2024 Active eucalyptol 0.92 mg/ml / menthol 0.42 mg/ml / methyl salicylate 0.6 mg/ml / thymol 0.64 mg/ml mouthwash (2 sources) Start: 09-02-2023 take 15 mL by mouth three times daily as needed Mouthwashes (BIOTENE) LIQD oral solution Swish and spit 15 mLs 3 times daily as needed (mouth dryness) 273 mL 1 09/02/2023 Active ferrous gluconate 240 mg oral tablet (19 sources) Start: 03-06-2024 Ferrous Gluconate ([facility] Iron) 240 (27 Fe) MG TABS Take by mouth. 03/06/2024 Active fluticasone propionate 0.05 mg/actuat metered dose nasal spray (20 sources) Corticosteroid Start: 08-16-2023 fluticasone (FLONASE) 50 mcg/act nasal inhaler Use in each nostril daily. 08/16/2023 Active Start: 08-16-2023 fluticasone (F LONASE) 50 mcg/actuation nasal spray Use in the nose. 08/16/2023 Active Start: 08-16-2023 End: 03-06-2024 Fluticasone Propionate 50 MC G/ACT Nasal Suspension 08/16/2023 - 03/06/2024 Provider: Start: 08-16-2023 End: 01-20-2024 take 1 spray(s) nasal route in the morning fluticasone propionate (FLONASE) 50 mcg/actuation nasal spray Administer 1 spray into each nostril in the morning. 16 g 08/16/2023 01/20/2024 Discontinued hydrOXYzine pamoate 50 mg oral capsule (20 sources) Antihistamine Start: 03-01-2023 End: 07-15-2023 take 1 capsule by mouth three times daily as needed hydrOXYzine pamoate (VISTARIL) 50 MG capsule Take 50 mg by mouth 3 times daily as needed. 03/18/2023 Active ibuprofen 600 mg oral tablet (20 sources) Nonsteroidal Anti-inflammatory Drug Start: 10-28-2023 take 1 tablet by mouth every six hours as needed for pain ibuprofen (MOTRIN) 600 MG tablet Take 1 Tablet by mouth every 6 hours as needed for Pain. 30 Tablet 3 10/28/2023 Active Start: 04-26-2023 End: 11-11-2023 ibuprofen (MOTRIN) 800 mg ta blet 1 tablet (800 mg total). 07/07/2023 11/11/2023 Discontinued (Therapy completed) ipratropium bromide 0.042 mg/actuat metered dose nasal spray (2 sources) Anticholinergic Start: 08-12-2023 take 2 spray(s) nasal route three times daily ipratropium (ATROVENT) 0.06 % nasal spray Indications: Post-nasal drainage 2 sprays by Each Nostril route 3 times daily 15 mL 5 08/12/2023 Active Iron (7 sources) Start: 03-06-2024 [facility] Iron 240 (27 Fe) MG Oral Tablet 03/06/2024 Provider: iv contrast (will be provided with radiology test) (2 sources) Start: 03-17-2024 End: 03-18-2024 inject 1 dose intravenously once iv contrast (will be provided with radiology test) CTA Head/Neck W No IV access, insert saline lock prior to the sedation, infusion, injection for imaging exam. Discontinue saline lock post exam. If Pt. has a central line or IVAD, may access for administration according to line specific nursing protocol. Once exam is complete flush line and de-access according to line specific nursing protocol in the CT contrast administration guidelines link. 1 Each 03/17/2024 03/18/2024 Active Start: 12-10-2023 End: 12-11-2023 inject 1 dose intravenously once iv contrast (will be provided with radiology test) Indications: Right facial pain , Atypical facial pain MRI Brain Inject, intravenously, once for 1 dose.No IV access, insert saline lock prior to beginning of sedation, infusion, injection of imaging exam.Discontinue saline lock post exam. If Pt. has a central line or IVAD, may access for administration according to line specific nursing protocol.Once exam is complete flush line and de-access according to line specific nursing protocol in the MR contrast administration guidelines link 1 Each 12/10/2023 12/11/2023 Active ketoconazole 20 mg/ml medicated shampoo (20 sources) Azole Antifungal Start: 03-16-2024 End: 07-22-2024 ketoconazole (NIZORAL) 2 % shampoo Apply 1 Application topically. 03/16/2024 Active ketorolac tromethamine 10 mg oral tablet (5 sources) Nonsteroidal Anti-inflammatory Drug, Cyclooxygenase Inhibitor Start: 02-09-2024 End: 02-15-2024 take 1 tablet by mouth three times daily as needed for pain ketorolac (TORADOL) 10 MG tablet TAKE 1 TABLET BY MOUTH THREE TIMES DAILY NEEDED FOR PAIN FOR 5 DAYS 02/10/2024 Active Start: 10-28-2023 End: 10-28-2023 inject 1 dose by intramuscular injection once 30 mg, IntraMUSCular, ONCE, 1 dose, On Imelda 10/28/23 at 1805 LORazepam 2 mg oral tablet (4 sources) Benzodiazepine Start: 01-05-2024 End: 01-05-2024 take 1 tablet by mouth once LORazepam (ATIVAN) 2 MG tablet TAKE 1 TABLET BY MOUTH A ONE TIME DOSE TAKE BEFORE MRI 01/05/2024 Active methocarbamol 750 mg oral tablet (14 sources) Muscle Relaxant Start: 12-20-2023 End: 03-16-2024 take 1 tablet by mouth twice daily methocarbamol (ROBAXIN) 750 MG tablet Take 1 Tablet by mouth 2 times daily. 60 Tablet 12/20/2023 01/19/2024 Active Start: 09-30-2023 End: 10-30-2023 take 1 tablet by mouth twice daily methocarbamol (ROBAXIN) 500 MG tablet Take 1 Tablet by mouth 2 times a day. 60 Tablet 09/30/2023 10/30/2023 Active Multiple Vitamin (Daily Value Multivitamin) TABS (6 sources) Start: 08-25-2023 Multiple Vitam in (Daily Value Multivitamin) TABS Take by mouth. 08/25/2023 Active mupirocin 0.02 mg/mg topical ointment (20 sources) RNA Synthetase Inhibitor Antibacterial Start: 07-20-2024 End: 07-30-2024 mupirocin (BACTROBAN) 2 % ointment Apply to affected area two times a day for 10 days. Apply to nasal incision, and bilateral nostrils twice a day for 10 days 22 g 1 07/20/2024 07/30/2024 Active Start: 06-01-2024 mupirocin (LAURA TROBAN) 2 % ointment Apply 1 Application topically 3 (three) times a day. 22 g 06/01/2024 Active Start: 02-15-2024 End: 05-01-2024 mupirocin (BACTROBAN) 2 % oi ntment Apply 1 Application topically 3 (three) times a day. 22 g 04/10/2024 05/01/2024 Discontinued Start: 12-22-2023 End: 01-01-2024 mupirocin (BACTROBAN) 2 % oi ntment Indications: Nasal bleeding Apply 1 Application topically in the morning and 1 Application before bedtime. Do all this for 10 days. 22 g 12/22/2023 01/01/2024 mupirocin (BACTR OBAN) 2 % ointment APPLY TO SKIN INFECTION TWICE DAILY Active naloxone (NARCAN) 4 mg/actuation spray,non-aerosol nasal spray (1 source) Start: 08-17-2024 naloxone (NARCAN) 4 mg/actuation spray,non-aerosol nasal spray 08/17/2024 Active naproxen 500 mg oral tablet (1 source) Nonsteroidal Anti-inflammator y Drug Start: 08-15-2024 End: 08-22-2024 take 1 tablet by mouth in the morning, then take 1 tablet by mouth at mealtime naproxen (NAPROSYN) 500 mg tablet Take 1 tablet (500 mg total) by mouth in the morning and 1 tablet (500 mg total) in the evening. Take with meals. Do all this for 7 days. 14 tablet 08/15/2024 08/22/2024 Active niacin 100 mg oral tablet (20 sources) Nicotinic Acid Start: 08-25-2023 niacin (VITAMIN B-3) 100 MG tablet Take by mouth. 08/25/2023 Active 24 hr nicotine 0.875 mg/hr transdermal system (5 sources) Cholinergic Nicotinic Agonist Start: 08-05-2023 apply 1 dose transdermal route once daily nicotine (NICODERM CQ) 21 MG/24HR apply 1 patch to CLEAN, DRY, AND INTACT SKIN REMOVE AND REPLACE once daily for 42 DAYS 08/05/2023 Active Start: 08-04-2023 End: 08-16-2023 apply 1 dose transdermal route once daily nicotine (NICODERM CQ) 21 mg/24 hr Indications: 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 Place 1 patch on the skin daily for 42 days. 42 patch 08/04/2023 08/16/2023 Discontinued Start: 04-22-2022 End: 04-23-2022 nicotine (Nicoderm, Step 1) 21 MG/24HR patch 1 patch nortriptyline 25 mg oral capsule (20 sources) Tricyclic Antidepressant Start: 12-06-2023 End: 03-16-2024 take 1 capsule by mouth three times daily nortriptyline (PAMELOR) 25 MG capsule Take 1 Capsule by mouth 3 times daily. 90 Capsule 02/08/2024 Active Start: 12-06-2023 End: 03-16-2024 take 1 capsule by mouth twice daily nortriptyline (Pamelor) 25 mg capsule Take 25 mg by mouth twice a day. 12/06/2023 Active nystatin [id number] unt/ml oral suspension (12 sources) Polyene Antifungal Start: 03-20-2024 End: 04-03-2024 nystatin (MYCOSTATIN) 100,000 unit/mL suspension Take 5 mL (500,000 Units total) by mouth in the morning and 5 mL (500,000 Units total) at noon and 5 mL (500,000 Units total) in the evening and 5 mL (500,000 Units total) before bedtime. Do all this for 14 days. 280 mL 03/20/2024 04/03/2024 Active Start: 01-31-2024 End: 02-10-2024 nystatin (MYCOSTATIN) 100,00 0 unit/mL suspension Take 5 mL (500,000 Units total) by mouth in the morning and 5 mL (500,000 Units total) at noon and 5 mL (500,000 Units total) in the evening and 5 mL (500,000 Units total) before bedtime. Do all this for 10 days. 60 mL 01/31/2024 02/10/2024 Active Start: 08-25-2023 End: 04-06-2024 Nystatin [id number] UNIT/ML Mout h/Throat Suspension 08/25/2023 - 04/06/2024 Provider: Colette Almaguer CNP omeprazole 40 mg delayed release oral capsule (20 sources) Proton Pump Inhibitor Start: 09-02-2023 End: 06-01-2024 take 1 capsule by mouth once daily omeprazole (PRILOSEC) 40 MG capsule Take 40 mg by mouth daily. 11/28/2023 Active ondansetron 4 mg disintegrating oral tablet (2 sources) Serotonin-3 Receptor Antagonist Start: 07-20-2024 End: 07-23-2024 take 1 tablet by mouth every eight hours as needed ondansetron orally disintegrating (ZOFRAN ODT) 4 mg disintegrating tablet Take 1 tablet by mouth every 8 hours as needed for nausea/vomiting for up to 3 days. 9 tablet 07/20/2024 07/23/2024 Active OXcarbazepine 300 mg oral tablet (10 sources) Anti-epileptic Agent Start: 06-09-2024 End: 08-18-2024 OXcarbazepine (TRILEPTAL) 300 MG tablet One to be taken twice a day for 2 weeks and then One 3 times a day 60 tablet 3 06/09/2024 Active oxyCODONE hydrochloride 5 mg oral tablet (2 sources) Opioid Agonist Start: 07-20-2024 End: 07-25-2024 take 1 tablet by mouth every six hours as needed for pain oxyCODONE IR (ROXICODONE) 5 mg immediate release tablet Indications: Post-operative pain Take 1 tablet by mouth every 6 hours as needed for pain for up to 5 days. 20 tablet 07/20/2024 07/25/2024 Active oxymetazoline hydrochloride 0.5 mg/ml nasal spray (2 sources) Start: 07-20-2024 End: 07-23-2024 Oxymetazoline HCl (AFRIN, OXYMETAZOLINE,) 0.05 % mist Use 3 sprays in the nose as needed (nasal bleeding) for up to 3 days. Liberally apply to bilateral nostrils as needed for nasal bleeding for the first 3 days after surgery. 30 mL 1 07/20/2024 07/23/2024 Active predniSONE 20 mg oral tablet (17 sources) Start: 03-07-2024 take 3 tablets by mouth once daily, then take 2 tablets by mouth once daily, then take 1 tablet by mouth once daily, then take 0.5 tablet by mouth once daily predniSONE (DELTASONE) 20 MG tablet TAKE 3 TABLETS BY MOUTH ONCE DAILY FOR 3 DAYS, THEN 2 TABLETS BY MOUTH ONCE DAILY FOR 3 DAYS, THEN 1 TABLET BY MOUTH ONCE DAILY FOR 3 DAYS, THEN 1/2 (ONE-HALF) TABLET BY MOUTH ONCE DAILY FOR 4 DAYS. 03/07/2024 Active Start: 05-07-2023 End: 07-15-2023 predniSONE 20 MG Oral Tablet 05/07/2023 - 07/15/2023 Provider: pregabalin 150 mg oral capsule (18 sources) Start: 08-15-2024 take 1 capsule by mouth three times daily pregabalin (LYRICA) 150 mg capsule Indications: TMJ (temporomandibular joint disorder) Take 1 capsule (150 mg total) by mouth 3 (three) times a day. 90 capsule 08/15/2024 Active Start: 07-20-2024 End: 08-15-2024 take 1 capsule by mouth three times daily pregabalin (LYRICA) 100 mg capsule Indications: TMJ (temporomandibular joint disorder) Take 1 capsule (100 mg total) by mouth 3 (three) times a day. 90 capsule 07/20/2024 08/15/2024 Discontinued Start: 07-04-2024 End: 07-20-2024 pregabalin (LYRICA) 75 mg ca psule Take 75 mg by mouth. 07/04/2024 Active QUEtiapine 100 mg oral tablet (20 sources) Atypical Antipsychotic Start: 02-22-2023 take 2 tablets by mouth at bedtime QUEtiapine (SEROQUEL) 100 MG tablet Take 200 mg by mouth at bedtime. 02/22/2023 Active Start: 02-22-2023 End: 08-16-2023 QUEtiapine Fumarate 100 MG O ral Tablet 02/22/2023 Provider: End: 01-20-2024 take 2 tablets by mouth once daily QUEtiapine (SEROquel) 25 mg tablet Take 2 tablets (50 mg total) by mouth nightly. 01/20/2024 Discontinued saliva stimulant comb. no.4 spry (17 sources) Start: 04-14-2024 take 2 spray(s) by mouth every four hours as needed saliva stimulant comb. no.4 spry Indications: Black hairy tongue , Dry mouth Use 2 Sprays as instructed every 4 hours as needed. 45 mL 5 04/14/2024 Active Start: 03-16-2024 End: 04-14-2024 saliva stimulant comb. no.4 spry Use 2 Sprays as instructed every 4 hours as needed. 03/16/2024 04/14/2024 Discontinued sodium chloride 0.111 meq/ml nasal spray (20 sources) Start: 07-20-2024 End: 08-19-2024 sodium chloride (SALINE NASA L) 0.65 % nasal spray Use 3 sprays in the nose every 2 hours while awake. 405 mL 07/20/2024 08/19/2024 Active Start: 06-01-2024 sodium chlorid e (OCEAN) 0.65 % nasal spray Administer 2 sprays into each nostril as needed for congestion. 15 mL 12 06/01/2024 Active Start: 04-10-2024 End: 05-01-2024 sodium chloride (OCEAN) 0.65 % nasal spray Indications: Xerostomia Administer 2 sprays into each nostril as needed (nasal dryness). 60 mL 2 04/10/2024 05/01/2024 Discontinued Start: 03-16-2024 sodium chlorid e (OCEAN) 0.65 % nasal spray Use 2 Sprays in each nostril. 03/16/2024 Active Start: 03-16-2024 End: 04-08-2024 sodium chloride (OCEAN) 0.65 % nasal spray Indications: Xerostomia Administer 2 sprays into each nostril as needed (nasal dryness). 60 mL 2 04/10/2024 Active sofosbuvir 400 mg / velpatasvir 100 mg oral tablet (18 sources) Hepatitis C Virus NS5A Inhibitor, Hepatitis C Virus Nucleotide Analog NS5B Polymerase Inhibitor Start: 04-29-2023 End: 04-06-2024 sofosbuvir-velpatasvir (EPCLUSA) 400-100 MG TABS tablet Take by mouth. 04/29/2023 Active sulfamethoxazole 800 mg / trimethoprim 160 mg oral tablet (20 sources) Dihydrofolate Reductase Inhibitor Antibacterial, Sulfonamide Antimicrobial Start: 07-20-2024 End: 07-30-2024 take 1 tablet by mouth twice daily sulfamethoxazole-trimetho prim (BACTRIM DS) 800-160 mg per tablet Take 1 tablet by mouth two times a day for 10 days. 20 tablet 07/20/2024 07/30/2024 Active Start: 04-03-2024 Sulfamethoxazo le-Trimethoprim 800-160 MG Oral Tablet 04/03/2024 Provider: Start: 04-03-2024 End: 04-10-2024 take 1 tablet by mouth twice daily sulfamethoxazole-trimethoprim (BACTRIM D S) 800-160 mg per tablet Take 1 tablet by mouth two times a day for 7 days. 14 tablet 04/03/2024 04/10/2024 Active sulfamethoxazole -trimethoprim 800-160 MG (BACTRIM DS) 800-160 MG per tablet Take by mouth every 12 (twelve) hours. Active End: 05-01-2024 take 1 tablet by mouth once in the morning sulfamethoxazole-trimethoprim (BACTRIM D S) 800-160 mg per tablet Take 1 tablet by mouth in the morning and 1 tablet before bedtime. 05/01/2024 Discontinued tiZANidine 4 mg oral tablet (20 sources) Central alpha-2 Adrenergic Agonist Start: 07-21-2024 End: 10-19-2024 tiZANidine (ZANAFLEX) 4 mg tablet Take 1 tablet by mouth as needed (for facial pain/jaw pain/muscle pulling). 90 tablet 07/21/2024 10/19/2024 Active Start: 10-28-2023 End: 12-20-2023 take 1 tablet by mouth three times daily as needed tizanidine (ZANAFLEX) 4 MG tablet Take 1 Tablet by mouth 3 times daily as needed. 30 Tablet 3 10/28/2023 12/20/2023 Discontinued (Changing therapy) Start: 07-29-2023 End: 11-11-2023 take 1 tablet by mouth every eight hours as needed tiZANidine (ZANAFLEX) 4 mg tablet Take 1 tablet (4 mg total) by mouth every 8 (eight) hours as needed for muscle spasms. 21 tablet 09/22/2023 11/11/2023 Discontinued (Therapy completed) Start: 05-07-2023 End: 07-15-2023 tiZANidine HCl 4 MG Oral Tab let 05/07/2023 - 07/15/2023 Provider: traMADol hydrochloride 50 mg oral tablet (3 sources) Opioid Agonist Start: 01-31-2024 take 1 tablet by mouth every six hours as needed for pain traMADol (ULTRAM) 50 MG tablet Take 50 mg by mouth every 6 hours as needed. for pain, for up to 2 days 01/31/2024 Active triamcinolone acetonide 0.001 mg/mg topical ointment (14 sources) Corticosteroid Start: 06-13-2024 triamcinolone acetonide (KENALOG) 0.1 % ointment Indications: Seborrheic dermatitis Apply thin layer to affected areas twice daily M-F. Take weekends off. Do not apply to face. 80 g 2 06/13/2024 Active Start: 05-15-2024 End: 05-15-2024 triamcinolone acetonide 80 m g injection (KeNALog 40) Start: 05-15-2024 End: 05-15-2024 80 mg, Injection - FOR ORTHO USE ONLY, ONCE, 1 dose, Starting on Wed05/15/24 at 1503, Until Wed05/15/24 at 1503 ubidecarenone 150 mg oral ca psule (20 sources) Start: 08-25-2023 End: 09-02-2024 Coenzyme Q10 150 MG CAPS Gilmer e by mouth. 08/25/2023 Active Start: 08-25-2023 End: 09-02-2024 take 1 capsule by mouth once Coenzyme Q10 (CoQ-10) 150 MG CAPS Take by mouth. 08/25/2023 09/02/2024 Active Start: 08-25-2023 End: 09-02-2024 take 1 capsule by mouth three times daily ubidecarenone Q-10 (CO Q-10) 10 mg cap Take 10 mg by mouth three times a day. 08/25/2023 09/02/2024 Active Start: 08-25-2023 End: 09-02-2024 take 1 capsule by mouth once coenzyme Q10 10 mg capsul e Take 1 capsule (10 mg total) by mouth. 08/25/2023 09/02/2024 Active Start: 08-25-2023 CoQ-10 150 MG Oral Capsule 08/25/2023 Provider: Colette Almaguer CNP valACYclovir 500 mg oral tablet (13 sources) Herpesvirus Nucleoside Analog DNA Polymerase Inhibitor, Herpes Simplex Virus Nucleoside Analog DNA Polymerase Inhibitor, Herpes Zoster Virus Nucleoside Analog DNA Polymerase Inhibitor Start: 01-28-2024 End: 03-16-2024 take 1 tablet by mouth once daily valACYclovir (VALTREX) 500 MG tablet Take 500 mg by mouth daily. 01/29/2024 Active varenicline 1 mg oral tablet (20 sources) Partial Cholinergic Nicotinic Agonist Start: 04-07-2024 End: 08-18-2024 Varenicline Tartrate(Continue) 1 MG Oral Tablet 04/07/2024 - 05/07/2024 Provider: Vanesa RILEY Start: 03-06-2024 End: 04-06-2024 Varenicline Tartrate (Starte r) 0.5 MG X 11 & 1 MG X 42 Oral Tablet Therapy Pack 03/06/2024 - 04/06/2024 Provider: Vanesa RILEY Start: 03-06-2024 End: 04-05-2024 Varenicline Tartrate (Starte r) 0.5 MG X 11 & 1 MG X 42 Oral Tablet Therapy Pack 03/06/2024 - 04/05/2024 Provider: Vanesa RILEY vitamin a 2.4 mg oral capsule (20 sources) Vitamin A Start: 03-06-2024 Vitamin A 2400 MCG (8000 UT) CAPS Take by mouth. 03/06/2024 Active Start: 03-06-2024 Vitamin A 2,40 0 mcg capsule Take 8,000 Units by mouth. 03/06/2024 Active Start: 03-06-2024 Vitamin A 2400 MCG (8000 UT) Oral Capsule 03/06/2024 Provider: End: 06-01-2024 take 1 capsule by mouth in the morning vitamin A 8000 UNIT capsule Take 1 capsule (8,000 Units total) by mouth in the morning. 06/01/2024 Discontinued vitamin b12 1 mg/ml injectable solution (15 sources) Vitamin B12 Start: 05-17-2024 cyanocobalamin (VITAMIN B-12) 1,000 mcg/mL injection 1 mL (1,000 mcg total). 05/17/2024 Active Completed/Discontinued Medications Medication Drug Class(es) Dates Sig (Normalized) Sig (Original) asenapine 10 mg sublingual tablet (20 sources) Atypical Antipsychotic Start: 02-13-2023 End: 04-12-2023 Saphris 10 MG Sublingual Tablet Sublingual 02/13/2023 - 04/12/2023 Provider: Start: 01-25-2023 take 1 tablet under the tongue twice daily asenapine maleate (SAPHRIS) 10 MG SUBL sublingual tablet Place 1 tablet under the tongue 2 times daily 30 tablet 2 01/25/2023 Active B complex-vitamin C-folic acid (NEPHROCAP) 1 mg capsule (10 sources) End: 06-01-2024 take 1 capsule by mouth in the morning B complex-vitamin C-folic acid (NEPHROCAP) 1 mg capsule Take 1 capsule by mouth in the morning. 06/01/2024 Discontinued take 1 capsule by mouth in the m orning B complex-vitamin C-folic acid (NEPHROCAP) 1 mg capsule Take 1 capsule by mouth in the morning. Active barium sulfate 40 % reconsitutable suspension (1 source) Start: 07-10-2024 End: 07-10-2024 take 1 dose by mouth once 50 g, Oral, IMG ONCE PRN, 1 dose, Starting on Wed07/10/24 at 1402, Until Wed07/10/24 at 1404, Other benztropine mesylate 1 mg oral tablet (20 sources) Anticholinergic, Antihistamine Start: 03-19-2023 End: 04-26-2023 Benztropine Mesylate 1 MG Oral Tablet 03/19/2023 - 04/26/2023 Provider: Start: 03-02-2023 End: 04-12-2023 Benztropine Mesylate 0.5 MG Oral Tablet 03/02/2023 - 04/12/2023 Provider: busPIRone hydrochloride 10 mg oral tablet (16 sources) Start: 04-20-2023 End: 07-15-2023 busPIRone HCl 10 MG Oral Tablet 04/20/2023 - 07/15/2023 Provider: chlorhexidine gluconate 40 mg/ml medicated liquid soap (4 sources) Start: 10-28-2017 End: 12-10-2023 chlorhexidine (HIBICLENS) 4 % external liquid Apply 1 application to affected area once daily as needed. 118 mL 10/28/2017 12/10/2023 Discontinued Comment on above: Apply 1 application to affected area once daily as needed. clindamycin 150 mg oral capsule (1 source) Lincosamide Antibacterial Start: 07-30-2023 End: 08-06-2023 take 1 capsule by mouth every six hours clindamycin (CLEOCIN) 150 mg capsule Take 1 capsule (150 mg total) by mouth every 6 (six) hours for 7 days. 28 capsule 07/30/2023 08/06/2023 gabapentin 800 mg oral tablet (20 sources) Anti-epileptic Agent Start: 06-08-2024 End: 07-04-2024 gabapentin (NEURONTIN) 800 mg tablet Indications: Cervical spondylosis without myelopathy Take 1 tablet (800 mg total) by mouth in the morning and 1 tablet (800 mg total) at noon and 1 tablet (800 mg total) in the evening and 1 tablet (800 mg total) before bedtime. 120 tablet 1 06/08/2024 07/04/2024 Discontinued Start: 04-13-2024 End: 06-08-2024 gabapentin (NEURONTIN) 600 m g tablet Indications: Cervical spondylosis without myelopathy Take 1 tablet (600 mg total) by mouth in the morning and 1 tablet (600 mg total) at noon and 1 tablet (600 mg total) in the evening and 1 tablet (600 mg total) before bedtime. 120 tablet 1 05/30/2024 06/08/2024 Discontinued (Reorder) Start: 03-06-2024 End: 05-06-2024 gabapentin (NEURONTIN) 300 M G capsule 03/07/2024 Active Start: 07-30-2023 End: 03-06-2024 Gabapentin 100 MG Oral Capsu le, conventional 09/24/2023 - 03/06/2024 Provider: Colette Almaguer CNP End: 07-21-2024 take 2 capsules by mouth three times daily gabapentin (NEURONTIN) 300 mg capsule Take 600 mg by mouth three times a day. 07/21/2024 Discontinued gadobenate dimeglumine (MULTIHANCE) injection 15 mL (1 source) Start: 07-10-2024 End: 07-10-2024 take 1 dose intravenously once 15 mL, IntraVENous, IMG ONCE PRN, 1 dose, Starting on Wed07/10/24 at 1510, Until Wed07/10/24 at 1511, Other indomethacin 25 mg oral capsule (15 sources) Nonsteroidal Anti-inflammatory Drug Start: 02-15-2024 End: 03-16-2024 indomethacin (INDOCIN) 25 mg capsule Indications: TMJ (temporomandibula r joint disorder) Take 1 capsule (25 mg total) by mouth in the morning and 1 capsule (25 mg total) at noon and 1 capsule (25 mg total) in the evening. Take with meals. 90 capsule 02/15/2024 03/16/2024 Discontinued iopamidol (ISOVUE-370) 76 % injection 75 mL (1 source) Start: 11-16-2023 End: 11-16-2023 take 1 dose intravenously once 75 mL, IntraVENous, IMG ONCE PRN, 1 dose, Starting on Wed11/16/23 at 1244, Until Wed11/16/23 at 1336, Other levoFLOXacin 500 mg oral tablet (20 sources) Quinolone Antimicrobial Start: 12-16-2023 End: 12-26-2023 take 1 tablet by mouth in the morning levoFLOXacin (LEVAQUIN) 500 mg tablet Indications: Subacute sinusitis, unspecified location TAKE 1 TABLET BY MOUTH IN THE MORNING FOR 10 DAYS 10 tablet 12/16/2023 12/26/2023 Start: 05-07-2023 End: 07-15-2023 levoFLOXacin 500 MG Oral Tab let 05/07/2023 - 07/15/2023 Provider: 10 ml lidocaine hydrochloride 10 mg/ml injection (2 sources) Antiarrhythmic, Amide Local Anesthetic Start: 05-15-2024 End: 05-15-2024 lidocaine (PF) 10 mg/mL (1 %) 8 mL injection (XYLOCAINE) Start: 05-15-2024 End: 05-15-2024 8 mL, Injection - FOR ORTHO USE ONLY, ONCE, 1 dose, Starting on Wed05/15/24 at 1503, Until Wed05/15/24 at 1503 loratadine 10 mg oral tablet (14 sources) Start: 05-10-2023 End: 08-25-2023 Loratadine 10 MG Oral Tablet 05/10/2023 - 08/25/2023 Provider: Colette Almaguer CNP meclizine hydrochloride 25 mg oral tablet (2 sources) Antiemetic Start: 04-22-2022 End: 04-22-2022 meclizine (Antivert) tablet 25 mg melatonin 5 mg oral tablet (2 sources) Start: 04-22-2022 End: 04-23-2022 melatonin tablet 5 mg methylPREDNISolone 4 mg oral tablet (3 sources) Corticosteroid Start: 10-28-2023 End: 12-20-2023 methylPREDNISolone (MEDROL) 4 MG TBPK tablet Day 1: 2 tablets (8mg) before breakfast, 1 tablet (4mg) after lunch, 1 tablet (4mg) after dinner, 2 tablets (8mg) at bedtime. Day 2: Take 1 tablet (4mg) before breakfast, take 1 tablet (4 mg) after lunch, 1 tablet (4mg) after dinner, and 2 tablets (8 mg) at bedtime. Day 3: Take 1 tablet (4mg) before breakfast, 1 tablet (4mg) after lunch, 1 tablet (4mg) after dinner, and 1 tablet (4 mg) at bedtime. Day 4: 1 tablet (4mg) before breakfast, 1 tablet (4mg) after lunch and 1 tablet (4mg) at bedtime. Day 5: Take 1 tablet (4mg) before breakfast and 1 tablet (4mg) at bedtime. Day 6: Take 1 tablet (4mg) before breakfast. 21 Tablet 10/28/2023 12/20/2023 Discontinued (Therapy completed) saliva stimulant comb. no.3 (BIOTENE) spray,non-aerosol (5 sources) Start: 01-17-2024 End: 02-15-2024 saliva stimulant comb. no.3 (BIOTENE) spray,non-aerosol Take 2 sprays by mouth as needed (dry mouth). 44.3 mL 01/17/2024 02/15/2024 Discontinued (Therapy completed) Start: 01-17-2024 saliva stimula nt comb. no.3 (BIOTENE) spray,non-aerosol Take 2 sprays by mouth as needed (dry mouth). 44.3 mL 01/17/2024 Active saliva stimulant comb. no.4 spray,non-aerosol (10 sources) Start: 03-16-2024 End: 05-01-2024 take 2 spray(s) by mouth every four hours as needed saliva stimulant comb. no.4 spray,non-aerosol Indications: Xerostomia 2 sprays by mucous membrane route every 4 (four) hours as needed (dry mouth). 45 mL 2 03/16/2024 05/01/2024 Discontinued Start: 03-16-2024 take 2 spray(s) by m outh every four hours as needed saliva stimulant comb. no.4 spray,non-aerosol Indications: Xerostomia 2 sprays by mucous membrane route every 4 (four) hours as needed (dry mouth). 45 mL 2 03/16/2024 Active tea tree oil 1000 mg/ml topical oil (2 sources) End: 11-11-2023 tea tree oiL 100 % oil Apply topically. 11/11/2023 Discontinued (Therapy completed) terbinafine hydrochloride 10 mg/ml topical cream (20 sources) Allylamine Antifungal Start: 03-06-2024 End: 04-05-2024 Terbinafine HCl 1% External Cream 03/06/2024 - 04/05/2024 Provider: Vanesa RILEY Start: 08-30-2023 End: 03-16-2024 take 1 tablet by mouth once daily terbinafine (LAMISIL) 250 MG tablet Take 1 tablet by mouth daily 08/30/2023 Active turmeric-g.uwv-roezjkwxv-dnr cc 283-823-16-30 mg capsule (15 sources) End: 01-20-2024 take 1 capsule by mouth once daily in the morning turmeric-g.itx-kidqbqvoy-ltmvd 981-244-16-30 mg capsule Take by mouth every morning. 01/20/2024 Discontinued take 1 capsule by [facility] once daily in the morning turmeric-g.gtf-mmsmyojms-fzvrg 200-200-5 0-30 mg capsule Take by mouth every morning. Active vit B complex no.12/niacin,B 3, (VITAMIN B COMPLEX NO.12-NIACIN ORAL) (20 sources) End: 07-06-2024 vit B complex no.12/niacin,B 3, (VITAMIN B COMPLEX NO.12-NIACIN ORAL) Take by mouth. 07/06/2024 Discontinued (Course of therapy completed) vit B complex no .12/niacin,B3, (VITAMIN B COMPLEX NO.12-NIACIN ORAL) Take by mouth. Active zinc gluconate 50 mg oral tablet (6 sources) End: 06-01-2024 take 1 tablet by mouth in the morning zinc gluconate 50 mg tablet Take 1 tablet (50 mg total) by mouth in the morning. 06/01/2024 Discontinued zolpidem tartrate 10 mg oral tablet (20 sources) gamma-Aminobuty aguila Acid-ergic Agonist Start: 02-25-2023 End: 07-15-2023 Zolpidem Tartrate 10 MG Oral Tablet 04/20/2023 - 05/10/2023 Provider: Problems Active Problems Problem Classification Problem Date Documented Da te Episodic/Chronic Acute and chronic tonsillitis (1 source) Amygdalolith; Translations: [Other chronic diseases of tonsils and adenoids] 08-04-2023 Chronic Administrative/social admission (2 sources) Occupational exposure to noise; Translations: [Other effects of external causes] 12-08-2023 Episodic Allergic reactions (1 source) Allergy status to penicillin; Translations: [Allergy status to penicillin] Onset: 3 Episodic Anxiety disorders (20 sources) Anxiety state; Translations: [Generalized anxiety disorder] Onset: 4 07-26-2013 Chronic Attention-deficit, conduct, and disruptive behavior disorders (2 sources) Attention-deficit hyperactivity disorder, unspecified type; Translations: [Attention-deficit hyperactivity disorder, unspecified type] Onset: 4 Chronic Attention-deficit, conduct, and disruptive behavior disorders (7 sources) Attention deficit hyperactivity disorder; Translations: [Attention-deficit hyperactivity disorder, unspecified type] Onset: 4 08-12-2023 Chronic Complication of device; implant or graft (2 sources) Pain due to other internal prosthetic devices, implants and grafts, initial encounter; Translations: [Pain due to other internal prosthetic devices, implants and grafts, initial encounter] Onset: 4 Episodic Disorders of teeth and jaw (4 sources) Acquired absence of all teeth; Translations: [Complete loss of teeth, unspecified cause, unspecified class] Onset: 4 08-12-2023 Chronic Disorders of teeth and jaw (20 sources) Unspecified temporomandibular joint disorder, unspecified side; Translations: [Jaw pain] Onset: 3 Episodic Headache; including migraine (3 sources) Chronic cluster headache; Translations: [Chronic cluster headache, intractable] Onset: 5 01-30-2024 Chronic Headache; including migraine (11 sources) Pain in face; Translations: [Right facial pain] 12-10-2023 Episodic Headache; including migraine (3 sources) Headache; including migraine; Translations: [Headache, unspecified] Onset: 4 Hepatitis (4 sources) Chronic hepatitis C; Translations: [Chronic viral hepatitis C] Onset: 3 11-27-2022 Chronic Miscellaneous mental health disorders (6 sources) Primary insomnia; Translations: [Primary insomnia] Onset: 4 Chronic Mood disorders (2 sources) Unspecified mood [affective] disorder; Translations: [Unspecified mood (affective) disorder] Onset: 4 Chronic Other acquired deformities (1 source) Incompetence of nasal valve; 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] 06-09-2024 Episodic Other connective tissue disease (3 sources) Localized masticatory muscle soreness; Translations: [Myalgia of mastication muscle] 09-24-2023 Episodic Other connective tissue disease (2 sources) Muscle pain; Translations: [Myalgia, unspecified site] 12-08-2023 Episodic Other connective tissue disease (1 source) Myofascial pain syndrome; Translations: [Myalgia, other site] 12-20-2023 Episodic Other connective tissue disease (1 source) Temporomandibular joint crepitus; Translations: [Other symptoms and signs involving the musculoskeletal system] 01-18-2024 Episodic Other connective tissue disease (2 sources) Tendonitis of left shoulder; Translations: [Other enthesopathies, not elsewhere classified] 04-07-2024 Episodic Other connective tissue disease (1 source) Other symptoms and signs involving the musculoskeletal system; Translations: [Other musculoskeletal symptoms referable to limbs] 04-07-2024 Episodic Other ear and sense organ disorders (1 source) Sensorineural hearing loss, bilateral; Translations: [Sensorineural hearing loss, bilateral] 12-08-2023 Chronic Other ear and sense organ disorders (1 source) Sensorineural hearing loss, bilateral; Translations: [Sensorineural hearing loss, bilateral] Onset: 4 Chronic Other ear and sense organ disorders (7 sources) Asymmetrical hearing loss; Translations: [Other specified hearing loss, bilateral] Onset: 4 12-22-2023 Chronic Other ear and sense organ disorders (7 sources) Sensorineural hearing loss, unilateral, left ear, with unrestricted hearing on the contralateral side; Translations: [Sensorineural hearing loss, unilateral] Onset: 4 08-12-2023 Chronic Other ear and sense organ disorders (1 source) Asymmetrical sensorineural hearing loss; Translations: [Sensorineural hearing loss, bilateral] 12-27-2023 Chronic Other ear and sense organ disorders (1 source) Other specified hearing loss, bilateral; Translations: [Other specified hearing loss, bilateral] Onset: 4 Chronic Other ear and sense organ disorders (1 source) Other specified hearing loss, unspecified ear; Translations: [Other specified hearing loss, unspecified ear] Onset: 4 Chronic Other ear and sense organ disorders (1 source) Impacted cerumen, left ear; Translations: [Impacted cerumen, left ear] Onset: 3 Episodic Other ear and sense organ disorders (1 source) Ear pressure sensation; Translations: [Other specified disorders of ear, bilateral] 12-08-2023 Episodic Other gastrointestinal disorders (6 sources) Oropharyngeal dysphagia; Translations: [Dysphagia, oropharyngeal phase] 01-26-2024 Episodic Other gastrointestinal disorders (5 sources) Dysphagia; Translations: [Dysphagia, unspecified] 11-16-2023 Episodic Other gastrointestinal disorders (1 source) Diarrhea of presumed infectious origin; Translations: [Diarrhea, unspecified] 04-14-2024 Episodic Other gastrointestinal disorders (2 sources) Dysphagia, oropharyngeal phase; Translations: [Dysphagia, oropharyngeal phase] Onset: 5 Episodic Other gastrointestinal disorders (4 sources) Dysphagia, unspecified; Translations: [Dysphagia, unspecified] Onset: 4 Episodic Other hereditary and degenerative nervous system conditions (3 sources) Edentulous orofacial dystonia; 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] 01-20-2024 Chronic Other infections; including parasitic (1 source) History of hepatitis C; Translations: [Personal history of other infectious and parasitic diseases] 04-14-2024 Episodic Other inflammatory condition of skin (1 source) Seborrheic dermatitis; Translations: [Seborrheic dermatitis, unspecified] 06-13-2024 Episodic Other injuries and conditions due to external causes (3 sources) Injury of head; Translations: [Head Injury] Onset: 3 Episodic Other injuries and conditions due to external causes (1 source) Unspecified injury of head, initial encounter; Translations: [Unspecified injury of head, initial encounter] Onset: 5 Episodic Other injuries and conditions due to external causes (2 sources) H/O: injury; Translations: [Personal history of other (healed) physical injury and trauma] 08-21-2024 Episodic Other nervous system disorders (2 sources) Chronic pain syndrome; Translations: [Chronic pain syndrome] 02-08-2024 Chronic Other nervous system disorders (2 sources) Other chronic pain; Translations: [Other chronic pain] Onset: 4 Chronic Other nervous system disorders (10 sources) Atypical facial pain; Translations: [Atypical facial pain] Onset: 5 12-06-2023 Episodic Other nervous system disorders (2 sources) Trigeminal nerve disorder; 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, unspecified] 06-14-2024 Episodic Other nervous system disorders (2 sources) Glossopharyngeal neuralgia; 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] Onset: 5 06-09-2024 Episodic Other nervous system disorders (2 sources) Trigeminal neuralgia; Translations: [Trigeminal neuralgia] Onset: 5 06-09-2024 Episodic Other nervous system disorders (2 sources) Atypical facial pain; Translations: [Atypical facial pain] Onset: 4 Episodic Other nervous system disorders (1 source) Other acute postprocedural pain; Translations: [Post-operative pain] Onset: 5 Episodic Other nervous system disorders (1 source) Clonic hemifacial spasm, bilateral; Translations: [Clonic hemifacial spasm affecting both sides of face] Onset: 5 Episodic Other skin disorders (1 source) Mucous membrane dryness 03-07-2024 Episodic Other skin disorders (5 sources) Finding of neck region; Translations: [Localized swelling, mass and lump, neck] 03-17-2024 Episodic Other skin disorders (1 source) Disorder of scalp 08-24-2024 Episodic Other upper respiratory disease (1 source) Pharyngeal gag reflex finding; Translations: [Other diseases of pharynx] 12-22-2023 Episodic Other upper respiratory disease (2 sources) Nasal obstruction; Translations: [Other specified disorders of nose and nasal sinuses] 07-14-2023 Episodic Other upper respiratory disease (1 source) Nasal mucosa dry; Translations: [Other specified disorders of nose and nasal sinuses] 05-02-2024 Episodic Other upper respiratory disease (1 source) Hypertrophy of nasal turbinates; Translations: [Hypertrophy of nasal turbinates] 06-09-2024 Episodic Other upper respiratory infections (1 source) Viral sinusitis; Translations: [Chronic sinusitis, unspecified] 07-11-2024 Chronic Residual codes; unclassified (1 source) Presence of dental prosthetic device (complete) (partial); Translations: [Presence of dental prosthetic device (complete) (partial)] Onset: 3 Episodic Residual codes; unclassified (20 sources) Finding of body mass index; Translations: [Body mass index (observable entity)] Onset: 4 Episodic Residual codes; unclassified (7 sources) Tobacco dependence syndrome; Translations: [Tobacco use] Onset: 4 Episodic Residual codes; unclassified (1 source) Postoperative state; Translations: [Other specified postprocedural states] 08-02-2024 Episodic Residual codes; unclassified (1 source) Other specified postprocedural states; Translations: [Post-operative state] Onset: 5 Episodic Schizophrenia and other psychotic disorders (20 sources) Delusional disorders; Translations: [Unspecified psychosis not due to a substance or known physiological condition] Onset: 2 Chronic Schizophrenia and other psychotic disorders (2 sources) Brief psychotic disorder; Translations: [Brief psychotic disorder] Onset: 2 Episodic Spondylosis; intervertebral disc disorders; other back problems (20 sources) Prolapsed lumbar intervertebral disc; Translations: [Other intervertebral disc displacement, lumbar region] Onset: 3 09-29-2013 Chronic Spondylosis; intervertebral disc disorders; other back problems (20 sources) Low back pain; Translations: [Lumbago] Onset: 3 07-26-2013 Episodic Substance-related disorders (20 sources) Stimulant dependence; Translations: [Other stimulant dependence, uncomplicated] Onset: 8 Resolved: 5 Chronic Unclassified (2 sources) Unknown / UNK(Unknown) Onset: 7 Unclassified (2 sources) PSYCHIATRIC EVAL 09-21-2022 Comment on above: PSYCHIATRIC EVAL Unclassified (1 source) Alcohol use, unspecified, uncomplicated; Translations: [Alcohol use, unspecified, uncomplicated] Onset: 4 Unclassified (1 source) Mouth Pain Onset: 5 Unclassified (1 source) Temporomandibular Join Pain Onset: 5 Unclassified (1 source) Dental Problem Onset: 4 Unclassified (1 source) Facial Pain Onset: 4 Unclassified (1 source) Emotional state finding Onset: 4 Unclassified (1 source) Earache Onset: 4 Unclassified (1 source) new patient Onset: 4 Unclassified (1 source) Injury Onset: 5 Unclassified (1 source) Sinus Problem Onset: 5 Unclassified (1 source) Right facial pain; Translations: [Right facial pain] Onset: 4 Urinary tract infections (6 sources) Urinary tract infectious disease; Translations: [Urinary tract infection, site not specified] Onset: 5 07-27-2024 Episodic Past or Other Problems Problem Classification Problem Date Documented Da te Episodic/Chronic Diseases of mouth; excluding dental (20 sources) Dry mouth, unspecified; Translations: [Mucous membrane dryness] Onset: 4 12-22-2023 Episodic Fluid and electrolyte disorders (1 source) Dehydration; Translations: [Dehydration] Onset: 4 Episodic Gastrointestinal hemorrhage (4 sources) Rectal hemorrhage; Translations: [Hemorrhage of anus and rectum] Onset: 4 03-27-2024 Episodic Hepatitis (20 sources) Viral hepatitis C; Translations: [Unspecified viral hepatitis C without hepatic coma] Onset: 3 09-25-2013 Episodic Immunizations and screening for infectious disease (16 sources) Encounter for screening for human immunodeficiency virus [HIV]; Translations: [Screening For Hiv] Onset: 4 Episodic Joint disorders and dislocations; trauma-related (16 sources) Dislocation of temporomandibular joint; Translations: [Dislocation of jaw, unspecified side, subsequent encounter] Onset: 4 12-08-2023 Episodic Malaise and fatigue (20 sources) Fatigue; Translations: [Other fatigue] Onset: 4 09-25-2013 Episodic Mood disorders (20 sources) Mood disorders Onset: 8 11-11-2023 Mycoses (20 sources) Onychomycosis of toenails; Translations: [Dermatophytosis of nail] Onset: 4 03-06-2024 Episodic Other acquired deformities (20 sources) Spondylolisthesis, grade 1; Translations: [Spondylolisthesis, site unspecified] Onset: 3 07-26-2013 Episodic Other aftercare (9 sources) Medication monitoring; Translations: [Encounter for therapeutic drug monitoring] Onset: 4 Episodic Other aftercare (3 sources) Patient encounter status; Translations: [Encounter for therapeutic drug level monitoring] Onset: 4 03-27-2024 Episodic Other connective tissue disease (3 sources) Pain in left foot; Translations: [Pain in left foot] Onset: 5 03-27-2024 Episodic Other connective tissue disease (1 source) Myalgia, other site; Translations: [Myalgia, other site] Onset: 4 Episodic Other connective tissue disease (1 source) Myalgia of mastication muscle; Translations: [Myalgia of mastication muscle] Onset: 4 Episodic Other connective tissue disease (1 source) Myalgia, unspecified site; Translations: [Muscular pain] Onset: 4 Episodic Other ear and sense organ disorders (4 sources) Otalgia, bilateral; Translations: [Otalgia, bilateral] Onset: 3 Episodic Other ear and sense organ disorders (20 sources) Otogenic otalgia of right ear; Translations: [Otalgia, right ear] Onset: 4 04-27-2023 Episodic Other ear and sense organ disorders (5 sources) Bilateral earache; Translations: [Otalgia, bilateral] Onset: 4 12-08-2023 Episodic Other ear and sense organ disorders (5 sources) Otalgia, right ear; Translations: [Otalgia, unspecified] Onset: 4 12-22-2023 Episodic Other ear and sense organ disorders (3 sources) Ear sensations - finding; Translations: [Other specified disorders of right ear] 07-14-2023 Episodic Other ear and sense organ disorders (4 sources) Ear problem; Translations: [Unspecified disorder of ear, unspecified ear] Onset: 4 03-27-2024 Episodic Other ear and sense organ disorders (1 source) Otalgia, unspecified ear; Translations: [Otalgia, unspecified ear] Onset: 4 Episodic Other ear and sense organ disorders (1 source) Other specified disorders of ear, bilateral; Translations: [Other specified disorders of ear, bilateral] Onset: 4 Episodic Other eye disorders (2 sources) Dry eye syndrome of bilateral lacrimal glands; Translations: [Dry eye syndrome of bilateral lacrimal glands] Onset: 4 Episodic Other gastrointestinal disorders (1 source) Diarrhea, unspecified; Translations: [Diarrhea of presumed infectious origin] Onset: 5 Episodic Other infections; including parasitic (1 source) Personal history of other infectious and parasitic diseases; Translations: [History of hepatitis C] Onset: 5 Episodic Other inflammatory condition of skin (5 sources) Seborrheic dermatitis of scalp; Translations: [Seborrhea capitis] Onset: 5 03-16-2024 Episodic Other inflammatory condition of skin (1 source) Seborrhea capitis; Translations: [Seborrhea capitis] Onset: 5 Episodic Other non-traumatic joint disorders (6 sources) Pain in left shoulder; Translations: [Pain in joint, shoulder region] Onset: 5 04-03-2024 Episodic Other nutritional; endocrine; and metabolic disorders (20 sources) Weight loss; Translations: [Abnormal weight loss] Onset: 4 03-03-2021 Episodic Other nutritional; endocrine; and metabolic disorders (17 sources) Weight decreased; Translations: [Abnormal weight loss] Onset: 4 Resolved: 5 03-03-2021 Episodic Other nutritional; endocrine; and metabolic disorders (1 source) Body mass index (BMI) 26.0-26.9, adult; Translations: [Body mass index (BMI) 26.0-26.9, adult] Onset: 5 Episodic Other screening for suspected conditions (not mental disorders or infectious disease) (20 sources) Encounter for screening for diabetes mellitus; Translations: [Diabetes Risk Test Score] Onset: 4 04-14-2024 Episodic Other skin disorders (3 sources) Localized swelling, mass and lump, neck; Translations: [Localized swelling, mass or lump of neck] Onset: 5 Episodic Other skin disorders (3 sources) Dystrophia unguium; Translations: [Nail dystrophy] Onset: 5 03-27-2024 Episodic Other skin disorders (1 source) Localized swelling, mass and lump, head; Translations: [Localized swelling, mass and lump, head] Onset: 4 Episodic Other skin disorders (1 source) Follicular disorder, unspecified; Translations: [Follicular disorder, unspecified] Onset: 4 Episodic Other upper respiratory disease (4 sources) Bleeding from nose; Translations: [Epistaxis] Onset: 4 12-22-2023 Episodic Other upper respiratory disease (11 sources) Deviated nasal septum; Translations: [Deviated nasal septum] Onset: 4 12-22-2023 Episodic Other upper respiratory disease (2 sources) Nasal congestion; Translations: [Nasal congestion] 07-14-2023 Episodic Other upper respiratory disease (3 sources) Nasal deviation, bone; Translations: [Deviated nasal septum] Onset: 8 03-27-2024 Episodic Other upper respiratory disease (2 sources) Deviated nasal septum; Translations: [Deviated nasal septum] Onset: 4 Episodic Other upper respiratory disease (1 source) Epistaxis; Translations: [Epistaxis] Onset: Episodic Other upper respiratory disease (1 source) Other diseases of pharynx; Translations: [Other diseases of pharynx] Onset: 4 Episodic Other upper respiratory infections (20 sources) Upper respiratory infection; Translations: [Acute upper respiratory infections of unspecified site] Onset: 4 08-12-2023 Episodic Otitis media and related conditions (20 sources) Acute left otitis media; Translations: [Unspecified otitis media] Onset: 4 03-27-2024 Episodic Residual codes; unclassified (20 sources) Insomnia; Translations: [Insomnia, unspecified] Onset: 5 Resolved: 5 07-26-2013 Episodic Residual codes; unclassified (9 sources) Body mass index (BMI) pediatric, 5th percentile to less than 85th percentile for age; Translations: [Assessment of Bmi Percentile = 5% To < 85% For Age Z68.52] Onset: 4 Episodic Residual codes; unclassified (2 sources) Alcoholism; Translations: [Alcohol use disorder] Onset: 4 08-12-2023 Episodic Residual codes; unclassified (5 sources) Other specified conditions influencing health status; Translations: [Alcohol use disorder] Onset: 4 08-12-2023 Episodic Residual codes; unclassified (3 sources) Facial grimacing; Translations: [Other specified health status] Onset: 4 03-27-2024 Episodic Screening and history of mental health and substance abuse codes (2 sources) Ex-smoker; Translations: [Personal history of nicotine dependence] 07-14-2023 Episodic Substance-related disorders (14 sources) Other stimulant use, unspecified, uncomplicated; Translations: [Other stimulant use, unspecified with stimulant-induced psychotic disorder, unspecified] Onset: 2 Episodic Unclassified (1 source) HEPATITIS C Onset: 7 Unclassified (1 source) MULTPILE MEDICAL COMPLAINTS 09-21-2022 Comment on above: MULTPILE MEDICAL COM PLAINTS Unclassified (1 source) Alcohol use, unspecified, uncomplicated; Translations: [Alcohol use, unspecified, uncomplicated] Onset: 4 Unclassified (3 sources) Finding of neck region 04-24-2024 Unclassified (1 source) Acute pain of left shoulder 04-26-2024 Results Test Name Value Interpretation Reference Range Facility [facility] 08-23-2024 [facility] Telephone ([facility]) -------- RAHEEM COHN ([id number]) 1975 M Date Time Provider Department 08/23/24 BLUE MATHIAS During your visit today, we recorded the following information about you: Maikel Morrow 08/23/2024 12:48 PM Signed Your patient, referenced below, has an insurance [...] divalproex ER or DR, or valproic acid Ordering Provider: BLUE MATHIAS Provider Tax ID: [id number] HCPCS code(s) AND drug name(s): Botox J0585 Diagnosis submitted (ICD -10 code AND description): G43.719 (ICD-10-CM) - Chronic migraine without aura, intractable, without status migrainosus Clinical Documentation Submitted: Office Visit 06/29/2024 Neurology New Start or Renewal? New Start Patient: RAHEEM COHN : 1975 DOS: [facility] Payer: [employer] Date Denial Received 08/22/2024 Appeal DEPT. INFORMATION Appeal Phone Number or Fax# FAX # [phone] [facility] Timeframe to Complete/Call to Schedule: 60 Days Case Reference # or Please reply to all with the outcome of the Appeal or once the order has been updated Thank you for your assistance with this request. Please feel free to contact me if any additional information or clarification is needed. Merle Sanchez RN 08/23/2024 4:38 PM Signed Provider sent mychart of denial Molly, Kirtan 08/30/2024 3:58 PM Signed Viji Good Afternoon, I wanted to follow up and ask if you would like to move forward with an appeal, or if an appeal has already been submitted or initiated on your end. Please let us know how you'd prefer to proceed. Maikel Coates Allergies As of Date: 08/23/2024 Noted Allergy Reaction PENICILLINS 06/03/2007 10 - Anaphylaxis Date Reviewed: 08/02/2024 Reviewed by: María Soares RN - Fully Assessed Reason for Visit: Insurance Authorization [[id number]] Cmt: Preferred Drug W/Botox Prescriptions as of 08/30/2024 - tiZANidine (ZANAFLEX) 4 mg tablet Take 1 tablet by mouth as needed (for facial pain/jaw pain/muscle pulling). - DULoxetine (CYMBALTA) 30 mg capsule Take 1 capsule by mouth once daily for 7 days, THEN 2 capsules once daily. - pregabalin (LYRICA) 75 mg capsule Take 75 mg by mouth. - cyanocobalamin, vitamin B-12, (B-12 COMPLIANCE INJECTION) by INJECTION(UNSPECIFIED PARENTERAL ROUTES) route once every month. - clonazePAM (KLONOPIN) 1 mg tablet Take 1 mg by mouth two times a day as needed for anxiety. - ubidecarenone Q-10 (CO Q-10) 10 mg cap Take 10 mg by mouth three times a day. - triamcinolone acetonide (KENALOG) 0.1 % ointment Apply thin layer to affected areas twice daily M-F. Take weekends off. Do not apply to face. Problem List As Of Date 08/23/2024 Noted Resolved Anxiety state, unspecified [F41.1] Insomnia, unspecified [G47.00] 07/06/2024 Amphetamine and other psychostimulant dependenc*06/03/2007 07/06/2024 Hepatitis C [B19.20] 05/13/2012 Lumbar disc herniation [M51.26] 05/13/2012 Lumbago [M54.50] 05/13/2012 Spondylolisthesis, grade 1 [M43.10] 05/13/2012 DDD (degenerative disc disease), lumbar [M51.36*05/13/2012 Polysubstance dependence including opioid type *05/13/2012 07/06/2024 Weight loss [R63.4] 09/25/2013 07/06/2024 Fatigue [R53.83] 09/25/2013 Spondylosis of cervical spine without myelopath*05/30/2024 Neck pain [M54.2] 10/18/2023 Opioid dependence in remission (HCC) [F11.21] 03/16/2023 TMJ (dislocation of temporomandibular joint) [S*03/22/2024 Urinary tract infection without hematuria [N39.*07/27/2024 Encounter Status:Closed by MAIKEL MORROW on 08/23/24 Normal [facility] [id number] 08-15-2024 [id number] HNO ID: [id number] Author: HE CALLE CCC-SLP Service: ? Author Type: Speech Language Pathologist Type: [id number] Filed: 08/15/2024 09:55 Note Text: [facility] Speech Therapy Plan of Care Certification Patient Name: Raheem Cohn : 1975 [facility] #: [id number] Date: 08/14/2024 To: Sanjana Encarnacion MD From Therapist: LUKE Zhang RE: Patient Certification/ Recertification Your review, approval and electronic signature are required in order to comply with Payor: [employer] / Plan: [facility] / Product Type: Medicaid / regulations. The identified Speech Therapy PLAN OF CARE for the patient is as follows: R13.12 Oropharyngeal dysphagia (primary encounter diagnosis) R68.84 Jaw pain G50.1 Atypical facial pain PLAN OF CARE: Impression: Swallow Deficits Identified / Suspected: Oropharyngeal dysphagia, Concern for possible esophageal impairment Prognosis: Good Good: current objective clinical presentation Goals for Episode of Care: established 08/14/2024 SWALLOWING GOALS Patient will increase lingual strength/ROM to WFL via lingual exercises x 10-20 repetitions and DEEP PHARYNGEAL NEUROMUSCULAR STIMULATION with good effort given no cues in order to improve oral phase to within functional limits. Patient will increase left labial strength/coordination to WFL via labial exercises x 10-20 repetitions with good effort and NEUROMUSCULAR ELECTRICAL STIMULATION given no cues improve labial closure. Patient will increase base of tongue strength to WFL via base of tongue exercises x 10-20 repetitions with good effort and DEEP PHARYNGEAL NEUROMUSCULAR STIMULATION given no cues in order to improve propulsion of the bolus to the pharynx. Patient will increase laryngeal elevation to WFL via laryngeal elevation exercises x 10-20 repetitions with good effort given no cues and NEUROMUSCULAR ELECTRICAL STIMULATION in order to improve airway protection during swallowing. Patient will increase anterior hyoid ROM to WFL via hyolaryngeal / pharyngeal exercises x 10-20 repetitions with good effort given min cues improve airway protection during swallowing. Patient will improve mandible ROM to WITHIN FUNCTIONAL LIMITS via mandibular ROM and masseter exercises/NEUROMUSCULAR ELECTRICAL STIMULATION to masticate his food in an efficient manner. Patient will demonstrate WNL swallow reflex via DEEP PHARYNGEAL NEUROMUSCULAR STIMULATION x 10 in order to improve pharyngeal phase of swallowing to within functional limits. Patient will tolerate regular diet with thin liquids while utilizing compensatory/swallowing strategies in 100% of trials. Reassess swallowing function via MODIFIED BARIUM SWALLOW STUDY in 8 weeks. All goals to target the patient's overall ability to safely consume the highest appropriate diet level Time Frame for Goals and Treatment : 10/13/24 RECOMMENDATION: Diet Recommendations: Dental Soft, Regular Consistency, Thin Liquids IDDSI Level 0 Swallowing Precautions Recommendations: Alternate bites and sips, Alert (patient should be fully alert for P.O. 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 Patient agreed with plan. For further details regarding this patient refer to the Speech Therapy electronically documented visit dated 08/14/2024. Provider Attestation I have reviewed the treatment plan for Raheem Crowley Escobar, CCF# [id number] for the period of 08/14/24 -- 10/13/24, established on 08/14/2024. Signature certifies the need for therapy services. Normal [facility] CT BRAIN WO CONTon CT BRAIN WO CONT CT BRAIN WO CONT CLINICAL INFORMATION: Fall . Trauma. TECHNIQUE: CT BRAIN WO CONT CT images of the brain were obtained. Garza-white differentiation appears intact. There is no cortical [...] Mayo Greenberg MD on 08/15/2024 1:08 PM Normal [facility] CNTHERAPYon 08-14-2024 CNTHERAPY OT/PT/Speech Visit (SPAVT) -------- RAHEEM COHN ([id number]) 1975 M Date Time Provider Department 08/14/24 9:45 AM HE CALLESCEddie Date Time Provider Department Center 08/14/2024 9:45 AM [id number] for Visit: Speech Evaluation [1647] Patient Education [91] Primary Visit Diagnosis:Oropharyngeal dysphagia [R13.12] Other Visit Diagnoses:Jaw pain [R68.84] Atypical facial pain [G50.1] Allergies As of Date: 08/14/2024 Noted Allergy Reaction PENICILLINS 06/03/2007 10 - Anaphylaxis Date Reviewed: 08/02/2024 Reviewed by: María Soares, RN - Fully Assessed Prescriptions as of 08/15/2024 - tiZANidine (ZANAFLEX) 4 mg tablet Take 1 tablet by mouth as needed (for facial pain/jaw pain/muscle pulling). - DULoxetine (CYMBALTA) 30 mg capsule Take 1 capsule by mouth once daily for 7 days, THEN 2 capsules once daily. - sodium chloride (SALINE NASAL) 0.65 % nasal spray Use 3 sprays in the nose every 2 hours while awake. - pregabalin (LYRICA) 75 mg capsule Take 75 mg by mouth. - cyanocobalamin, vitamin B-12, (B-12 COMPLIANCE INJECTION) by INJECTION(UNSPECIFIED PARENTERAL ROUTES) route once every month. - clonazePAM (KLONOPIN) 1 mg tablet Take 1 mg by mouth two times a day as needed for anxiety. - ubidecarenone Q-10 (CO Q-10) 10 mg cap Take 10 mg by mouth three times a day. - triamcinolone acetonide (KENALOG) 0.1 % ointment Apply thin layer to affected areas twice daily M-F. Take weekends off. Do not apply to face. Normal [facility] CNPNon 08-08-2024 [facility] Telephone (NHMNS2) -------- RAHEEM COHN ([id number]) 1975 Date Time Provider Department 08/08/24 JUAN F WRIGHT [facility] During your visit today, we recorded the following information about you: Allergies As of Date: 08/08/2024 Noted Allergy Reaction PENICILLINS 06/03/2007 10 - Anaphylaxis Date Reviewed: 08/02/2024 Reviewed by: María Soares RN - Fully Assessed Reason for Visit: Referral Request [124] Cmt: Botox / Initial Prescriptions as of 08/08/2024 - tiZANidine (ZANAFLEX) 4 mg tablet Take 1 tablet by mouth as needed (for facial pain/jaw pain/muscle pulling). - DULoxetine (CYMBALTA) 30 mg capsule Take 1 capsule by mouth once daily for 7 days, THEN 2 capsules once daily. - sodium chloride (SALINE NASAL) 0.65 % nasal spray Use 3 sprays in the nose every 2 hours while awake. - pregabalin (LYRICA) 75 mg capsule Take 75 mg by mouth. - cyanocobalamin, vitamin B-12, (B-12 COMPLIANCE INJECTION) by INJECTION(UNSPECIFIED PARENTERAL ROUTES) route once every month. - clonazePAM (KLONOPIN) 1 mg tablet Take 1 mg by mouth two times a day as needed for anxiety. - ubidecarenone Q-10 (CO Q-10) 10 mg cap Take 10 mg by mouth three times a day. - triamcinolone acetonide (KENALOG) 0.1 % ointment Apply thin layer to affected areas twice daily M-F. Take weekends off. Do not apply to face. 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 I am referring to [facility] for a second opinion. I requested his previous TMJ and head imaging reports from [facility]. For referral. Gave patient number for Case. Will forward our records as well once appointment is made. ----- Signed on Wednesday, August 07, 2024 at 5:54:17 PM ----- ----- Provider: Joie iH DMD -- Clinic: [place] ----- [facility] 08-[facility] CNOV Office Visit (OTOLMN ) -------- RAHEEM COHN ([id number]) 1975 M Date Time Provider Department 08/02/24 8:30 AM JAMIE NUR OTOLMN During your visit today, we recorded the following information about you: María Soares RN 08/02/2024 8:54 AM Signed Tobacco Use: Types: Cigarettes, Snuff Was smoking cessation packet given? N/A - Patient is a non-smoker or quit >1 year ago. Was a referral initiated?N/A Patient is a non-smoker Jamie Nur MD 08/02/2024 8:54 AM Signed Section of Facial Plastic AND Reconstructive Surgery Head and Neck [place] FOLLOW-UP VISIT CC: post-op IMPRESSION AND PLAN: Raheem Cohn is a 49 year old male that is recovering well following nasal surgery. We discussed continued care for the nose with ointment and nasal saline spray. Return to clinic 3-4 months. Sooner if issues arise. Will continue to follow up with REPAIR SUPERVISOR and Neuro for jaw and facial pain related tissues (both appts already scheduled) Jamie Nur MD HISTORY: Raheem Cohn is a 49 year old male who returns today following nasal surgery. Overall, recovering well. No significant concerns or complaints. 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 PHYSICAL EXAM: vitals were not taken for this visit. Nose - expected post-operative swelling; incisions well healing; septum is straight; turbinates well reduced. Right nasal vestibular skin with crusting which was removed, no cartilage exposure or wound breakdown. No ballotable collection IMAGING: I personally reviewed the following radiologic exams: NA PROCEDURES: NA Referring Provider: DONAL HAYS [[id number]] Allergies As of Date: 08/02/2024 Noted Allergy Reaction PENICILLINS 06/03/2007 10 - Anaphylaxis Date Reviewed: 08/02/2024 Reviewed by: María Soares RN - Fully Assessed Reason for Visit: Post Op [174] Primary Visit Diagnosis:Post-operative state [Z98.890] Prescriptions as of 08/02/2024 - tiZANidine (ZANAFLEX) 4 mg tablet Take 1 tablet by mouth as needed (for facial pain/jaw pain/muscle pulling). - DULoxetine (CYMBALTA) 30 mg capsule Take 1 capsule by mouth once daily for 7 days, THEN 2 capsules once daily. - sodium chloride (SALINE NASAL) 0.65 % nasal spray Use 3 sprays in the nose every 2 hours while awake. - pregabalin (LYRICA) 75 mg capsule Take 75 mg by mouth. - cyanocobalamin, vitamin B-12, (B-12 COMPLIANCE INJECTION) by INJECTION(UNSPECIFIED PARENTERAL ROUTES) route once every month. - clonazePAM (KLONOPIN) 1 mg tablet Take 1 mg by mouth two times a day as needed for anxiety. - ubidecarenone Q-10 (CO Q-10) 10 mg cap Take 10 mg by mouth three times a day. - triamcinolone acetonide (KENALOG) 0.1 % ointment Apply thin layer to affected areas twice daily M-F. Take weekends off. Do not apply to face. 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 Krishna 07-28-2024 CNPN Telephone (HNQ) -------- RAHEEM COHN ([id number]) 1975 M Date Time Provider Department 07/28/24 DONAL HAYS During your visit today, we recorded the following information about you: Lesley Abdullahi 07/28/2024 12:14 PM Signed Person Calling: Patient with [employer] Reason for Call: pt has an appt today at 1:45pm but [facility] is not able to take pt today until after 1:30pm. Pt Phone #: [phone] Pharmacy Name and # : Pt last seen: Visit date not found Lesley Abdullahi Allergies As of Date: 07/28/2024 Noted Allergy Reaction PENICILLINS 06/03/2007 10 - Anaphylaxis Date Reviewed: 07/20/2024 Reviewed by: Nakul Perez, REDD - Fully Assessed Prescriptions as of 07/28/2024 - tiZANidine (ZANAFLEX) 4 mg tablet Take 1 tablet by mouth as needed (for facial pain/jaw pain/muscle pulling). - DULoxetine (CYMBALTA) 30 mg capsule Take 1 capsule by mouth once daily for 7 days, THEN 2 capsules once daily. - sodium chloride (SALINE NASAL) 0.65 % nasal spray Use 3 sprays in the nose every 2 hours while awake. - sulfamethoxazole-trimeth oprim (BACTRIM DS) 800-160 mg per tablet Take 1 tablet by mouth two times a day for 10 days. - mupirocin (BACTROBAN) 2 % ointment Apply to affected area two times a day for 10 days. Apply to nasal incision, and bilateral nostrils twice a day for 10 days - pregabalin (LYRICA) 75 mg capsule Take 75 mg by mouth. - cyanocobalamin, vitamin B-12, (B-12 COMPLIANCE INJECTION) by INJECTION(UNSPECIFIED PARENTERAL ROUTES) route once every month. - clonazePAM (KLONOPIN) 1 mg tablet Take 1 mg by mouth two times a day as needed for anxiety. - ubidecarenone Q-10 (CO Q-10) 10 mg cap Take 10 mg by mouth three times a day. - triamcinolone acetonide (KENALOG) 0.1 % ointment Apply thin layer to affected areas twice daily M-F. Take weekends off. Do not apply to face. 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 0-26 percent blocking Indeterminate ....... 27-41 percent blocking Positive ............ 42 percent or greater blocking Approximately 85-90 percent of patients with myasthenia gravis (MG) express antibodies to the acetylcholine receptor (AChR), which can be divided into binding, blocking, and modulating antibodies. Binding antibody can activate complement and lead to loss of AChR. Blocking antibody may impair binding of acetylcholine to the receptor, leading to poor muscle contraction. Modulating antibody causes receptor endocytosis resulting in loss of AChR expression, which correlates most closely with clinical severity of disease. Approximately 10-15 percent of individuals with confirmed myasthenia gravis have no measurable binding, blocking, or modulating antibodies. This test was developed and its performance characteristics determined by [facility]. It has not been cleared or approved by the [place] Food and Drug Administration. This test was performed in a CLIA certified laboratory and is intended for clinical purposes. Performed By: [facility] [address] [place] [address] Enterprise Application Developer: Vanesa Ricci MD, PhD CLIA Number: [id number] Acetylcholine Binding Abon 0 07-23-2024 Acetylcholine Binding Ab 0.0 nmol/L Normal 0.0-0.4 [facility] [place] Comment on above: Result Comment: INTE RPRETIVE INFORMATION: Acetylcholine Binding Ab Negative ....... 0.0 - 0.4 nmol/L Positive ....... 0.5 nmol/L or greater Approximately 85-90 percent of patients with myasthenia gravis (MG) express antibodies to the acetylcholine receptor (AChR), which can be divided into binding, blocking, and modulating antibodies. Binding antibody can activate complement and lead to loss of AChR. Blocking antibody may impair binding of acetylcholine to the receptor, leading to poor muscle contraction. Modulating antibody causes receptor endocytosis resulting in loss of AChR expression, which correlates most closely with clinical severity of disease. Approximately 10-15 percent of individuals with confirmed myasthenia gravis have no measurable binding, blocking, or modulating antibodies. This test was developed and its performance characteristics determined by [facility]. It has not been cleared or approved by the [place] Food and Drug Administration. This test was performed in a CLIA certified laboratory and is intended for clinical purposes. Performed By: [facility] [address] [place] [address] Enterprise Application Developer: Vanesa Ricci MD, PhD CLIA Number: [id number] Acetylcholine Modulating Abo n 07-23-2024 Acetylcholine Modulating Ab 0 % Normal <=45 [facility] [place] Comment on above: Result Comment: INTE RPRETIVE INFORMATION: Acetylcholine Modulating Ab Negative .......... 0-45 percent modulating Positive .......... 46 percent or greater modulating Approximately 85-90 percent of patients with myasthenia gravis (MG) express antibodies to the acetylcholine receptor (AChR), which can be divided into binding, blocking, and modulating antibodies. Binding antibody can activate complement and lead to loss of AChR. Blocking antibody may impair binding of acetylcholine to the receptor, leading to poor muscle contraction. Modulating antibody causes receptor endocytosis resulting in loss of AChR expression, which correlates most closely with clinical severity of disease. Approximately 10-15 percent of individuals with confirmed myasthenia gravis have no measurable binding, blocking, or modulating antibodies. This test was developed and its performance characteristics determined by [facility]. It has not been cleared or approved by the US Food and Drug Administration. This test was performed in a CLIA certified laboratory and is intended for clinical purposes. Performed By: [facility] [address] [place] [address] Enterprise Application Developer: Vanesa Ricci MD, PhD CLIA Number: [id number] [facility] 07-21-2024 [facility] Office Visit (NHMNS2 ) -------- RAHEEM COHN ([id number]) 1975 M Date Time Provider Department 07/21/24 10:45 AM JUAN F WRIGHT NHMNS2 During your visit today, we recorded the following information about you: Sanjana Encarnacion MD 07/22/2024 11:47 AM Signed Headache and Facial Pain [facility] [place] CC: Headache follow-up (impromptu drop in) Follow-up Visit Last visit Date: 06/2024 Raheem Cohn is a 49 year old This is a 49 yo, new to me, presenting for atypical facial pain and known TMJ disorder the past 3 years, with refractory pain. Facial pain began after jaw/dental surgery to remove all his teeth, and heightened a few months after when he had a severe popping sensation in the right jaw, and now has had persistent pain R V2-V3, as well as on the left and sometimes behind the ears into the neck. His pain is mostly triggered by swallowing and talking and he describes a burning pain in the top of his mouth and around his gums, but not triggered so much by touching/wind. Presentation is inconsistent with trigeminal neuralgia with constant stabbing pain without classical triggers or distribution, rather this is a b/l atypical facial pain with significant contributions from TMJ disorder and chronic pain syndrome. There was no evidence of occipital neuralgia contributions on exam. he has had numerous evaluations by pain management, ENT, OMFS, dentistry at outside facilities, and provided with TMJ nerve blocks with only minimal improvement and otherwise told not to be a surgical candidate. In addition he also mentions constant daily throbbing head pain associated with sensitivity to sound, nausea and vomiting, worsened by his facial pain, and thus would be also consistent with chronic daily headaches with migraine features. Atypical facial pain b/l (v2-V3) Hemifacial spasms b/l face TMJ disorder Chronic daily headache, chronic migraine features Preventative Medication: 1.Continue neuropathic agent recommended he discuss with his pain management team switching to Lyrica due to ADR (currently on gabapentin 600 mg 3 times daily) 2.PA for Botox for hemifacial spasm 3.Continue with TMJ /Head and Neck PT Abortive Medication: 1.Discussed muscle relaxers but he said he has tried numerous without improvement Future Considerations: cymbalta, desvenlafaxine, lyrica, oxc/cbz - therapy/referrals: He requested a referral to [facility], but also stated he cannot see dentistry at [facility] due to insurance and [facility] is in with dentistry but will provide him with the phone number to call for an appointment - Imaging: He will send me CD of most recent MRA for review Interval History: DATA: Diagnostic tests reviewed for today's visit: Imagin05/26/2024 MRI face and MRA 06/12/2024 IMPRESSION: Questionable abutment of the root entry zones of the bilateral trigeminal nerves by the traversing superior cerebellar arteries. Consider MRA for further evaluation. Otherwise no significant soft tissue abnormality is of the face to account for the patient's facial pain. Large left nasal septal spur. IMPRESSION: 1. No MRA evidence for an aneurysm or significant stenosis in the head. 2. The distal portions of the superior cerebellar arteries are seen extending directly between the lateral margins of the michelle and root entry zones of cranial nerves V; clinical correlation for trigeminal neuralgia is recommended. Consults: ENT operative note from yesterday Prior Therapies Duration of Use Dose Side effect Analgesic Indomethacin (Indocin) Ketorolac (Toradol) Anti-Convulsant Gabapentin (Neurontin) 600 mg TID drowsy, brain fog, weight gain, not able to drive/work Anti-Depressant and Antipsychotic Nortriptyline (Pamelor, Aventyl) Muscle Relaxer Baclofen (Lioresal) Cyclobenzaprine (Flexeril) no help for jaw/facial pain Methocarbamol (Robaxin) no help/jaw pain HEADACHE SCORES: 12/08/2023 06/22/2024 Headache Questions Face pain on one side only: Yes No Do you have Trigeminal neuralgia: No No Face pain described as: Other Other Do you have numbness with severe pain: Yes Yes Pain triggered by brushing your teeth, eating, shaving or touching your face: No Yes Days per month with mild/moderate face pain: 30 30 Days per month with severe face pain: 30 25 PRN medication usage in the last month: 30 30 01/12/2024 01/17/2024 06/22/2024 PAULA - 2/7 SCORES PAULA-2 Score 6 6 4 PAULA-7 Score 19 19 11 01/12/2024 01/17/2024 06/22/2024 Pain Disability Index PDI Score 62 62 51 05/14/2024 05/19/2024 06/22/2024 PHQ-9 Score 20 5 13 Physical Exam: Vital Signs: There were no vitals taken for this visit. GENERAL: anxious, agitated and pacing in the room, mild acute distress, alert, still wearing wrist band from admission yesterday and gauze over nose, with septum s (more content not included)... Normal [facility] CNPNon 07-21-2024 CNPN Telephone (NHMNS2) -------- ESCOBAR,RAHEEM Crowley ([id number]) 1975 Date Time Provider Department 07/21/24 [facility] F [facility] During your visit today, we recorded the following information about you: Deann Cummings 07/21/2024 9:02 AM Signed Call received for Juan F Wright DO regarding Raheem A Cohn 1975. Caller: Self Patient Identified by Name and : Yes Was permission obtained from patient ? Yes Reason for Call: Other: Patient calling in today because he is currently in the hospital since he has had surgery on his nose. He says you were aware of the symptoms he was experiencing behind his nose and patient adds that after this surgery, he is now experiencing new concerns. Patient stated that you were willing to add him on to your lunch break for a visit. Or if you can call him back, he says that would be okay as well. Last Office Visit: 06/29/2024 Last Distance Health visit: Visit date not found Next scheduled appointment: 10/25/2024 Best number to reach caller: [phone] Best time to reach caller: any time Is it OK to leave a detailed voice message? Yes Deann Gudino Pss Allergies As of Date: 07/21/2024 Noted Allergy Reaction PENICILLINS 06/03/2007 10 - Anaphylaxis Date Reviewed: 07/20/2024 Reviewed by: Nakul Perez, REDD - Fully Assessed Reason for Visit: Patient Update [1234] Prescriptions as of 07/21/2024 - sodium chloride (SALINE NASAL) 0.65 % nasal spray Use 3 sprays in the nose every 2 hours while awake. - Oxymetazoline HCl (AFRIN, OXYMETAZOLINE,) 0.05 % mist Use 3 sprays in the nose as needed (nasal bleeding) for up to 3 days. Liberally apply to bilateral nostrils as needed for nasal bleeding for the first 3 days after surgery. - ondansetron orally disintegrating (ZOFRAN ODT) 4 mg disintegrating tablet Take 1 tablet by mouth every 8 hours as needed for nausea/vomiting for up to 3 days. - sulfamethoxazole-trimeth oprim (BACTRIM DS) 800-160 mg per tablet Take 1 tablet by mouth two times a day for 10 days. - mupirocin (BACTROBAN) 2 % ointment Apply to affected area two times a day for 10 days. Apply to nasal incision, and bilateral nostrils twice a day for 10 days - oxyCODONE IR (ROXICODONE) 5 mg immediate release tablet Take 1 tablet by mouth every 6 hours as needed for pain for up to 5 days. - pregabalin (LYRICA) 75 mg capsule Take 75 mg by mouth. - cyanocobalamin, vitamin B-12, (B-12 COMPLIANCE INJECTION) by INJECTION(UNSPECIFIED PARENTERAL ROUTES) route once every month. - clonazePAM (KLONOPIN) 1 mg tablet Take 1 mg by mouth two times a day as needed for anxiety. - ubidecarenone Q-10 (CO Q-10) 10 mg cap Take 10 mg by mouth three times a day. - triamcinolone acetonide (KENALOG) 0.1 % ointment Apply thin layer to affected areas twice daily M-F. Take weekends off. Do not apply to face. - ketoconazole (NIZORAL) 2 % shampoo Apply 1 Application to affected area. - gabapentin (NEURONTIN) 300 mg capsule Take 600 mg by mouth three times a day. Facility-Administered Medications as of 07/21/2024 - clonazePAM 1 mg tab(s) (KlonoPIN) - pregabalin 75 mg cap(s) (LYRICA) - gabapentin 600 mg cap(s) (NEURONTIN) - NaCl 0.9% iv infusion - traMADol 25-50 mg tab(s) (ULTRAM) - oxyCODONE IR 5-10 mg tab(s) (ROXICODONE) - oxyCODONE 5-10 mg oral liquid (ROXICODONE) - pantoprazole 20 mg oral liquid (PROTONIX) - docusate 100 mg oral liquid (COLACE) - sennosides 8.8 mg oral liquid (SENNA) - lactobacillus rhamnosus 10 billion cell (CULTURELLE) capsule - polyethylene glycol 3350 17 g packet - lactulose 20 g CUP - bisacodyl 10 mg suppository (DULCOLAX) - ondansetron (PF) 4 mg injection (ZOFRAN) - prochlorperazine 10 mg injection (COMPAZINE) - promethazine 25 mg suppository (PHENERGAN) - dexAMETHasone sodium phosphate (PF) 10 mg injection (DECADRON) - acetaminophen 1,000 mg tab(s) (TYLENOL) - acetaminophen 500 mg tab(s) (TYLENOL) - hydrALAZINE 10 mg injection (APRESOLINE) - labetalol 5 mg injection syringe (NORMODYNE) - white petrolatum 41 % topical ointment (AQUAPHOR) - sulfamethoxazole-trimeth oprim 800-160 mg 1 tablet (BACTRIM DS) Problem List As Of Date 07/21/2024 Noted Resolved Anxiety state, unspecified [F41.1] Insomnia, unspecified [G47.00] 07/06/2024 Amphetamine and other psychostimulant dependenc*06/03/2007 07/06/2024 Hepatitis C [B19.20] 05/13/2012 Lumbar disc herniation [M51.26] 05/13/2012 Lumbago [M54.50] 05/13/2012 Spondylolisthesis, grade 1 [M43.10] 05/13/2012 DDD (degenerative disc disease), lumbar [M51.36*05/13/2012 Polysubstance dependence including opioid type *05/13/2012 07/06/2024 Weight loss [R63.4] 09/25/2013 07/06/2024 Fatigue [R53.83] 09/25/2013 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 Normal [facility] ANES POSTPROC EVALon 025 ANES POSTPROC EVAL HNO ID: [id number] Author: YOLA QUINTANA MD Service: ? Author Type: Anesthesiologist Type: Anesthesia Postprocedure Evaluation Filed: 07/20/2024 15:38 Note Text: POST ANESTHESIA EVALUATION NOTE : 1975 Procedure Summary Date: 07/20/24 Room / Location: [address] [facility] Anesthesia Start: 1255 Anesthesia Stop: 152 Procedures: REPAIR NASAL VESTIBULAR STENOSIS (Bilateral: Nose) SEPTOPLASTY (Nose) RESECTION SUBMUCOSAL TURBINATES (Bilateral: Nose) Diagnosis: 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 Hypertrophy of inferior nasal turbinate Deviated nasal septum (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]) (Refractory obstruction of nasal airway [J34.89]) (Hypertrophy of inferior nasal turbinate [J34.3]) (Deviated nasal septum [J34.2]) Surgeons: Donal Hays MD Responsible Provider: Yola Quintana MD Anesthesia Type: general ASA Status: 3 Anesthesia Type: general Last Vitals Vitals Value Taken Time BP 123/79 07/20/24 1530 Temp 36.3 ?C (97.3 ?F) 07/20/24 1521 Pulse 79 07/20/24 1535 Resp 12 07/20/24 1530 SpO2 97 % 07/20/24 1535 Vitals shown include unfiled device data. Post Anesthesia Patient Status Patient Evaluation: bedside. Anticipated Disposition: inpatient floor planned admission. Neurological Status: aware and responsive. Pulmonary Status: breathing comfortably on supplemental oxygen Airway Control: returned to baseline unsupported. Cardiovascular Status: stable. Pain Management: clinically adequate Postoperative Hydration: acceptable. Intraoperative Events: no significant anesthesia events Post Operative Nausea/Vomiting Status: no significant post operative nausea or vomiting Recommendation: continue current plan of care. Anesthesia Observations No Documentation SIGNATURE: Yola Xavier MD PATIENT NAME: Raheem Crowley Cohn DATE: July 20, 2024 TIME: 3:37 PM CSN: [id number] Normal [facility] ANES PRE-OPon 07-20-2024 ANES PRE-OP HNO ID: [id number] Author: YOLA QUINTANA MD Service: ? Author Type: Anesthesiologist Type: Anesthesia Preprocedure Evaluation Filed: 07/20/2024 13:01 Note Text: ANESTHESIOLOGY DAY OF SURGERY NOTE : 1975 Procedure Information Anesthesia Start Date/Time: 07/20/24 1255 Procedures: REPAIR NASAL VESTIBULAR STENOSIS (Bilateral: Nose) SEPTOPLASTY (Nose) RESECTION SUBMUCOSAL TURBINATES (Bilateral: Nose) Location: [facility]IN [facility] Surgeons: Donal Hays MD Estimated body mass index is 27.26 kg/m? as calculated from the following: Height as of this encounter: 177.8 cm (5' 10 ). Weight as of this encounter: 86.2 kg (190 lb). Most recent hematocrit and potassium results: Hematocrit 51.1 04/14/2024 Potassium 4.8 04/14/2024 Relevant Problems -RENAL (+) Hepatitis C I - PHYSICAL EVALUATION AIRWAY Patient intubated: No. Tracheostomy tube not present Mallampati: II. TM distance: >3 FB. Neck ROM: full ROM without neurological symptoms. Mouth opening: adequate. Short neck: no. Thick neck: no Moreno present: no Microretrognathia/Micron agthia/Recessed Chin: No DENTAL Dental findings: edentulous. Additional exam findings: no II - ANESTHESIA PLAN ASA Score: 3 Anesthetic Plan: general Airway type: ETT NPO Status: adequate Beta Ketty Monitoring Plan Monitoring plan: standard ASA. Post Procedure Analgesic Plan Postoperative analgesic plan: parenteral or oral opioids. Informed Consent Anesthetic risks, benefits, alternatives, personnel and consent discussed: yes. Patient / Responsible [employer] Party agrees to proceed: yes Patient / Surrogate agrees to blood products: blood products not planned Significant changes in the patient condition since the History and Physical, not otherwise documented in primary service progress note: no. Potential Anesthesia issues that may suggest increased risk of complications or contraindication to planned procedure: potential difficult IV access. Vitals Value Taken Time BP 124/86 07/20/24 1000 Pulse 82 07/20/24 1000 Resp 18 07/20/24 1000 Temp 36.1 ?C (97 ?F) 07/20/24 1000 SpO2 93 % 07/20/24 1000 Facility-Administered Medications as of 07/20/2024 Medication Dose Route Frequency lidocaine (PF) 10 mg/mL (1 %) 1-2 mg injection (XYLOCAINE) 0.1-0.2 mL INTRADERMAL PRN Or lidocaine 1% 0.25 mL subcutaneous j-tip syringe (XYLOCAINE) 0.25 mL SUBCUTANEOUS PRN lactated ringers iv infusion 5-30 mL/hr INTRAVENOUS CONTINUOUS NaCl 0.9% iv flush bag 20 mL INTRAVENOUS PRN ciprofloxacin iv piggyback 200 mg in D5W 100 mL (CIPRO) 200 mg INTRAVENOUS q 12 H doxycycline 100 mg in D5W 250 mL Vial-Bag (VIBRAMYCIN) 100 mg INTRAVENOUS ONCE NaCl 0.9% irrigation solution X (OR/PROCEDURE) PRN oxymetazoline 0.05 % (GENASAL) X (OR/PROCEDURE) PRN Outpatient Medications as of 07/20/2024 Medication Sig clonazePAM (KLONOPIN) 1 mg tablet Take 1 mg by mouth two times a day as needed for anxiety. ubidecarenone Q-10 (CO Q-10) 10 mg cap Take 10 mg by mouth three times a day. sodium chloride (SALINE NASAL) 0.65 % nasal spray Use 3 sprays in the nose every 2 hours while awake. Oxymetazoline HCl (AFRIN, OXYMETAZOLINE,) 0.05 % mist Use 3 sprays in the nose as needed (nasal bleeding) for up to 3 days. Liberally apply to bilateral nostrils as needed for nasal bleeding for the first 3 days after surgery. ondansetron orally disintegrating (ZOFRAN ODT) 4 mg disintegrating tablet Take 1 tablet by mouth every 8 hours as needed for nausea/vomiting for up to 3 days. sulfamethoxazole-trimeth oprim (BACTRIM DS) 800-160 mg per tablet Take 1 tablet by mouth two times a day for 10 days. mupirocin (BACTROBAN) 2 % ointment Apply to affected area two times a day for 10 days. Apply to nasal incision, and bilateral nostrils twice a day for 10 days oxyCODONE IR (ROXICODONE) 5 mg immediate release tablet Take 1 tablet by mouth every 6 hours as needed for pain for up to 5 days. ketoconazole (NIZORAL) 2 % shampoo Apply 1 Application to affected area. gabapentin (NEURONTIN) 300 mg capsule Take 600 mg by mouth three times a day. I have interviewed and examined the patient. I have reviewed the medical record and/or the pre-anesthesia evaluation, pertinent labs, and test results. This contains updated information obtained within 48 hours of Surgery/Procedure. SIGNATURE: Yola Xavier MD PATIENT NAME: Raheem Crowley Cohn DATE: July 20, 2024 TIME: 1:00 PM CSN: [id number] Normal [facility] NURSING PROGon 07-20-2024 NURSING PROG HNO ID: [id number] Author: EBONI SORIA RN Service: Nursing Author Type: Registered Nurse Type: Nursing Progress Note Filed: 07/20/2024 17:58 Note Text: Late entry 1615: Pt was having periods of apnea with drops in oxygen saturation to 82-84 %. Charge nurse to bedside Noxious stimulation given, patient would gasp and resume breathing only to go apneic again. Pacu Movie Extra/ Dr. Alexandrea Perez Staff anesthesia on the case paged to bedside. 1710: Pt is now more awake, alert and oriented no treatment needed only time. Pt now tolerating po. Vss,pain controlled. Will continue to monitor till 1800 if able to maintain current status without any drops in saturation, will have pt cleared for transfer to short stay. 1755: Pt sitting up in bed having a snack. Maintaining O2 sat > 96% on 8L humidified face tent. Vss, pain controlled. Pt being discharged from pacu in stable condition. Normal [facility] OPERATIVE NOon 07-20-2024 OPERATIVE NO HNO ID: [id number] Author: DONAL HAYS MD Service: Otolaryngology Author Type: Physician Type: Operative Report Filed: 07/24/2024 13:57 Note Text: [facility] OPERATIVE/PROCEDURE REPORT LOG ID: [id number] SURGERY/PROCEDURE DATE: 07/20/2024 INCISION/PROCEDURE START TIME: 1:23 PM INCISION CLOSE/PROCEDURE END TIME: 2:48 PM SURGEON(S)/PROCEDURALIST (S) AND LATHER APPRENTICE(S): Surgeons and Role: * Donal Hays MD - Primary * Jeffrye Matos MD - Fellow No Additional Staff ANESTHESIA: General [facility] OP REPORT Performed by: Donal Hays MD Authorized by: Donal Hays MD Functional Nasal Surgery with Valve [...] Specimens: None Implantable Devices: None Drains: None I was present for all critical portions of the operation. The operation was performed with resident and / or fellow assistance. Donal Hays MD COMPLETED BY: Jeffrey Matos MD PATIENT NAME: Raheem Crowley Cohn DATE: July 20, 2024 TIME: 3:02 PM AGE: [age] year old Normal [facility] Telephone Encounteron 2024 Pit Laborer Authentication Interface Message Text pt was seen in OS 03/23/24, pt received message from OS 04/10/24 OS looked at pt and xray and nothing they can do for pt.06/23/24 OS relayed to telehone encounter Pt scheduled with Dr. Hi. Visist notes from Dr. hi 07/10/24 waiting for a consult with oral surgery for input. PLease contact pt to advise his next step in plan of care. pt can be reached at [phone] Message sent to [facility] 08/07/[address] Hi out of this office until that date , message sent on 07/14/24 at 142 pm Normal [facility] CNPRea 07-11-2024 CNPN Telephone ([facility]) -------- RAHEEM COHN ([id number]) 1975 M Date Time Provider Department 07/11/24 BLUE MATHIAS During your visit today, we recorded the following information about you: Maikel Morrow 07/11/2024 5:08 AM Signed Merle Sanchez RN 07/11/2024 2:29 PM Signed Provider sent message Dannielle Naranjo 07/11/2024 4:37 PM Signed Patient called in to share that he would like to try the Dysport and requests it be sent to [facility] in [facility]. Merle Sanchez RN 07/12/2024 4:02 PM Signed Appeal letter sent for Botox. Shaq message to pt Yashira Melendez 07/13/2024 1:48 PM Signed Rec'd call from insurance. They were calling with an update. They received the appeal and they are reviewing, this can take up to 10 days to review and give a determination. Merle Sanchez RN 07/24/2024 4:34 PM Signed Message to pharm auth to check status Rama Carrillo 08/02/2024 10:49 AM Signed Viji Truong , This is to inform you that the internal appeal has been denied, and we are now eligible to submit an external appeal through [employer]. Please note the following: Submission Deadline: The external appeal must be submitted to [employer] within 30 Calendar days of the written notification indicating that the internal appeal process has been exhausted. Contact Information: Phone: (Option 2) Email: [email or web address] Required Form: The [place] Medicaid MCE External Review Request Form must be completed and submitted. I have already attached this form to the patient?s file for your convenience. It can also be accessed at [email or web address]. Please advise us on how you would like to proceed. Thanks , Merle Coronel RN 08/08/2024 4:11 PM Signed See another referral placed for Botox Merle Sanchez RN 08/16/2024 11:57 AM Signed Noted new referral submitted to insurance 08/15/24 Rama Carrillo 08/21/2024 2:26 PM Signed Hello Good Afternoon, I just wanted to kindly confirm that a new referral has been submitted with an updated diagnosis code, and the Botox request appears to have been submitted under this new referral. ( # [id number] ) Whenever convenient, could you please close the This referral ( # [id number] ) related to the initial request? Thank you so much for your help and support! Thanks, Merle Coronel RN 08/23/2024 10:07 AM Signed Date Received: 08/23/2024 Received by: Phone Emailed to: Molly Romano Email Sent (Date AND Time): 08/22/24 / 3:27 PM Reason for Review: Request has denied as records do not show tried and failed Beta Blockers, Allergies As of Date: 07/11/2024 Noted Allergy Reaction PENICILLINS 06/03/2007 10 - Anaphylaxis Date Reviewed: 07/11/2024 Reviewed by: Chari Vela APRN.[facility] - Fully Assessed Reason for Visit: Insurance Authorization [[id number]] Cmt: Preferred Drug W/Appeal Prescriptions as of 08/23/2024 - tiZANidine (ZANAFLEX) 4 mg tablet Take 1 tablet by mouth as needed (for facial pain/jaw pain/muscle pulling). - DULoxetine (CYMBALTA) 30 mg capsule Take 1 capsule by mouth once daily for 7 days, THEN 2 capsules once daily. - pregabalin (LYRICA) 75 mg capsule Take 75 mg by mouth. - cyanocobalamin, vitamin B-12, (B-12 COMPLIANCE INJECTION) by INJECTION(UNSPECIFIED PARENTERAL ROUTES) route once every month. - clonazePAM (KLONOPIN) 1 mg tablet Take 1 mg by mouth two times a day as needed for anxiety. - ubidecarenone Q-10 (CO Q-10) 10 mg cap Take 10 mg by mouth three times a day. - triamcinolone acetonide (KENALOG) 0.1 % ointment Apply thin layer to affected areas twice daily M-F. Take weekends off. Do not apply to face. 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 Please see separate speech pathology report for full discussion of findings and recommendations. [facility] RADIOLOGY EXAMINATION: MODIFIED BARIUM SWALLOW WAS PERFORMED IN CONJUNCTION WITH SPEECH PATHOLOGY SERVICES TECHNIQUE: Under fluoroscopic evaluation cineradiography/videorad iography recordings were performed in conjunction with the speech-language pathologist (REPAIR SUPERVISOR). Various liquid, solid and/or semi-solid barium preparations were used to assess swallowing function. FLUOROSCOPY DOSE AND TYPE: Radiation Exposure Index: Kerma mGy, 3.10 COMPARISON: None HISTORY: ORDERING SYSTEM PROVIDED HISTORY: Oropharyngeal dysphagia TECHNOLOGIST PROVIDED HISTORY: Reason for exam:->Dysphagia with a speech consult What reading provider will be dictating this exam?->CRC FINDINGS: The oral phase demonstrated mild dysphagia. No evidence of aspiration or penetration were noted. [facility] RADIOLOGY Sebastien Anderson MD - 07/10/2024 EXAMINATION: MODIFIED BARIUM SWALLOW WAS PERFORMED IN CONJUNCTION WITH SPEECH PATHOLOGY SERVICES TECHNIQUE: Under fluoroscopic evaluation cineradiography/videorad iography recordings were performed in conjunction with the speech-language pathologist (REPAIR SUPERVISOR). Various liquid, solid and/or semi-solid barium preparations were used to assess swallowing function. FLUOROSCOPY DOSE AND TYPE: Radiation Exposure Index: Kerma mGy, 3.10 COMPARISON: None HISTORY: ORDERING SYSTEM PROVIDED HISTORY: Oropharyngeal dysphagia TECHNOLOGIST PROVIDED HISTORY: Reason for exam:->Dysphagia with a speech consult What reading provider will be dictating this exam?->CRC FINDINGS: The oral phase demonstrated mild dysphagia. No evidence of aspiration or penetration were noted. IMPRESSION: No evidence of aspiration or penetration were noted. Please see separate speech pathology report for full discussion of findings and recommendations. [facility] MODIFIED BARIUM SWALLOW W VIDEO EXAMINATION: MODIFIED BARIUM SWALLOW WAS PERFORMED IN CONJUNCTION WITH SPEECH PATHOLOGY SERVICES TECHNIQUE: Under fluoroscopic evaluation cineradiography/videorad iography recordings were performed in conjunction with the speech-language pathologist (REPAIR SUPERVISOR). Various liquid, solid and/or semi-solid barium preparations were used to assess swallowing function. FLUOROSCOPY DOSE AND TYPE: Radiation Exposure Index: Kerma mGy, 3.10 COMPARISON: None HISTORY: ORDERING SYSTEM PROVIDED HISTORY: Oropharyngeal dysphagia TECHNOLOGIST PROVIDED HISTORY: Reason for exam:->Dysphagia with a speech consult What reading provider will be dictating this exam?->CRC FINDINGS: The oral phase demonstrated mild dysphagia. No evidence of aspiration or penetration were noted. IMPRESSION: No evidence of aspiration or penetration were noted. Please see separate speech pathology report for full discussion of findings and recommendations. Interpreted by: Sebastien Anderson MD Signed by: Sebastien Anderson MD 07/10/24 Final result [facility] [place] Radiology Study observation (narrative) [facility] MODIFIED BARIUM SWALLOW W VIDEOOrdered By: Sebastien Anderson on 07-10-2024 [facility] Work Phone: MR Brain WO and W contrast I Von 07-10-2024 1. No acute intracra nial abnormality. 2. Mild distribution supratentorial white matter lesions which are nonspecific and may represent migrainous change, prior insult, injury, drug/toxin reaction, or chronic small vessel ischemic changes. 3. Heterogeneous secretions within the left sphenoid sinus. Correlate for sinusitis. May represent chronic fungal colonization. [facility] RADIOLOGY EXAMINATION: MRI OF THE BRAIN WITHOUT AND WITH CONTRAST 07/10/2024 9:09 am TECHNIQUE: Multiplanar multisequence MRI of the head/brain was performed without and with the administration of intravenous contrast. COMPARISON: CT head 12/04/2022.. HISTORY: ORDERING SYSTEM PROVIDED HISTORY: Oropharyngeal dysphagia TECHNOLOGIST PROVIDED HISTORY: STAT Creatinine as needed:->No Reason for exam:->Dysphagia What reading provider will be dictating this exam?->CRC FINDINGS: Motion degraded exam. INTRACRANIAL STRUCTURES/VENTRICLES: Mild distribution supratentorial periventricular white matter FLAIR signal lesions. There is no acute infarct. No mass effect or midline shift. No evidence of an acute intracranial hemorrhage. The ventricles and sulci are normal in size and configuration. The sellar/suprasellar regions appear unremarkable. The normal signal voids within the major intracranial vessels appear maintained. No abnormal focus of enhancement is seen within the brain. ORBITS: The visualized portion of the orbits demonstrate no acute abnormality. SINUSES: Heterogeneous secretions within the left sphenoid sinus. BONES/SOFT TISSUES: The bone marrow signal intensity appears normal. The soft tissues demonstrate no acute abnormality. [facility] RADIOLOGY Gregory Solis MD - 07/10/2024 EXAMINATION: MRI OF THE BRAIN WITHOUT AND WITH CONTRAST 07/10/2024 9:09 am TECHNIQUE: Multiplanar multisequence MRI of the head/brain was performed without and with the administration of intravenous contrast. COMPARISON: CT head 12/04/2022.. HISTORY: ORDERING SYSTEM PROVIDED HISTORY: Oropharyngeal dysphagia TECHNOLOGIST PROVIDED HISTORY: STAT Creatinine as needed:->No Reason for exam:->Dysphagia What reading provider will be dictating this exam?->CRC FINDINGS: Motion degraded exam. INTRACRANIAL STRUCTURES/VENTRICLES: Mild distribution supratentorial periventricular white matter FLAIR signal lesions. There is no acute infarct. No mass effect or midline shift. No evidence of an acute intracranial hemorrhage. The ventricles and sulci are normal in size and configuration. The sellar/suprasellar regions appear unremarkable. The normal signal voids within the major intracranial vessels appear maintained. No abnormal focus of enhancement is seen within the brain. ORBITS: The visualized portion of the orbits demonstrate no acute abnormality. SINUSES: Heterogeneous secretions within the left sphenoid sinus. BONES/SOFT TISSUES: The bone marrow signal intensity appears normal. The soft tissues demonstrate no acute abnormality. IMPRESSION: 1. No acute intracranial abnormality. 2. Mild distribution supratentorial white matter lesions which are nonspecific and may represent migrainous change, prior insult, injury, drug/toxin reaction, or chronic small vessel ischemic changes. 3. Heterogeneous secretions within the left sphenoid sinus. Correlate for sinusitis. May represent chronic fungal colonization. [facility] Radiology Study observation (narrative) [facility] MR Brain WO and W contrast I VOrdered By: Gregory Solis on 07-10-2024 [facility] Work Phone: MRI BRAIN W WO CONTRASTon MRI BRAIN W WO CONTRAST EXAMINATION: MRI OF THE BRAIN WITHOUT AND WITH CONTRAST 07/10/2024 9:09 am TECHNIQUE: Multiplanar multisequence MRI of the head/brain was performed without and with the administration of intravenous contrast. COMPARISON: CT head 12/04/2022.. HISTORY: ORDERING SYSTEM PROVIDED HISTORY: Oropharyngeal dysphagia TECHNOLOGIST PROVIDED HISTORY: STAT Creatinine as needed:->No Reason for exam:->Dysphagia What reading provider will be dictating this exam?->CRC FINDINGS: Motion degraded exam. INTRACRANIAL STRUCTURES/VENTRICLES: Mild distribution supratentorial periventricular white matter FLAIR signal lesions. There is no acute infarct. No mass effect or midline shift. No evidence of an acute intracranial hemorrhage. The ventricles and sulci are normal in size and configuration. The sellar/suprasellar regions appear unremarkable. The normal signal voids within the major intracranial vessels appear maintained. No abnormal focus of enhancement is seen within the brain. ORBITS: The visualized portion of the orbits demonstrate no acute abnormality. SINUSES: Heterogeneous secretions within the left sphenoid sinus. BONES/SOFT TISSUES: The bone marrow signal intensity appears normal. The soft tissues demonstrate no acute abnormality. IMPRESSION: 1. No acute intracranial abnormality. 2. Mild distribution supratentorial white matter lesions which are nonspecific and may represent migrainous change, prior insult, injury, drug/toxin reaction, or chronic small vessel ischemic changes. 3. Heterogeneous secretions within the left sphenoid sinus. Correlate for sinusitis. May represent chronic fungal colonization. Interpreted by: Gregory Solis MD Signed by: Gregory Solis MD 07/10/24 Final result [facility] [place] Progress Noteson 07-10-2024 Pit Laborer Authentication Interface Message Text Patient returned to the office for eval. He reports he is having PT locally and injections. Reviewed previous findings with him and advised to restart muscle relaxants. Did a brief oral exam which was normal. Patient agreed and is waiting for a consult with oral surgery for input. In the meantime I am requesting a radiology report from imaging he shared (from [facility] ----- Signed on Friday, July 12, 2024 at 6:39:32 AM ----- ----- Provider: [id number] - Jeimy Hi DMD -- Clinic: [facility] [place] ----- Normal The [employer] Pit Laborer Authentication Interface Message Text ----- Wednesday, July 10, 2024 at 12:07:08 PM ----- ----- Provider: [id number] - Resident Heladio -- Clinic: [facility] [place] ----- DENTURE ADJUSTMENT Patient presents for adjustment of his Lower CD. Reviewed patient's medical history. Patient is ready for treatment. Checked patient's mouth for red, sore, or cut areas. Checked the prostheses for irregularities, over extensions, and undercuts. Problem located and adjusted. The patient has three sets of dentures done outside [facility]. Every time he bites the bite shifts. I adjusted the oclussion today but the problem continued. He also complained about the left flange of his lower denture being overextended. It was adjusted today as well. The patient got a refund in the previous office and he was advised to go to a correspondence coordinator. I agreed with that advice and that is what he is going to do Next Visit: continue treatment with oral medicine - we cannot make him dentures at [facility] ----- Signed on Wednesday, July 10, 2024 at 12:42:33 PM ----- ----- Provider: [id number] Ashwini Sullivan DMD -- Clinic: [place] [place] ----- Normal [employer] HISTORY PHYSICALon HISTORY PHYSICAL HNO ID: [id number] Author: DENIA OROSCO APRN.[facility] Service: ? Author Type: Nurse Practitioner Type: H&P Filed: 07/06/2024 14:51 Note Text: [facility] HISTORY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 abnormal clumping of the nerve roots within Meckel's cave. Bilateral foramen ovale, foramen rotundum, pterygomaxillary fissures, pterygopalatine foramen, and sphenopalatine foramen are normal. The optic canal and orbital fissures are normal. IMPRESSION: Questionable abutment of the root entry zones of the bilateral trigeminal nerves by the traversing superior cerebellar arteries. Consider MRA for further evaluation. Otherwise no significant soft tissue abnormality is of the face to account for the patient's facial pain. Large left nasal septal spur. Finalized by Nieves Martinez on 05/29/2024 12:22 PM [facility] ([facility] ) -------- RAHEEM COHN ([id number]) 1975 M Date Time Provider Department 05/22/24 4:00 PM GABE MARIN [facility] During your visit today, we recorded the following information about you: Weight Height 87.6 kg 1.778 m Gabe Marin APRN.[facility] 05/22/2024 4:22 PM Signed Spine Care Path Neck Pain - Chronic (> 12 weeks) Follow Up Exam SUBJECTIVE HISTORY OF PRESENT ILLNESS: Raheem Cohn is a 49 year old male who presents with a chief complaint of neck pain and is seen in consultation requested by Brandy Erickson PA-C for an opinion regarding neck pain. My final recommendations will be communicated back to the requesting physician by way of shared medical record or letter via US mail. Patient presents with neck pain for 14 months. He believes symptoms started after having some kind of infection while working in [place]. He states that he became ill in [place] and when he returned to [place] he was diagnosed with an infection . He states that since this time he has experienced jaw pain, difficulty swallowing, neck pain, and swelling of his neck. He reports that jaw pain and difficulty swallowing is his main concern. He has been evaluated by primary care, ENT, neurosurgery, infectious disease, and pain management in regards to pain and difficulty swallowing. He is also under the evaluation of orthopedic surgery in regards to left shoulder pain. He states at time of appointment that he feels that all his symptoms are connected. 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 Distribution of symptoms are unchanged. Pain localized to under his jaw up to his nose, occipital region, bilateral neck, Pain described as aching, stabbing Radiation:t/o head Numbness/Tingling: Denies He denies loss of bowel or bladder control, denies dexterity difficulties, denies imbalance. Pain rated 7-9/10 Pain worse with trying to swallow, panicking, Pain improved with tens unit, air cast , heat, holding his head, keeping perfectly straight posture. Interventions: Tens unit, medication , air cast Medications:Gabapentin, Clonazepam, Pamelor, Seroquel, Thorazine, Prilosec, Lamisil, Past medications: tramadol, Physical Therapy: 01/28/2024 - 1 visit for TMJ - stopped due to pain. Treating Physicians: Dr. Germain -PCP Brandy BRISENO - Orthopaedics - Referring Provider Kay BRISENO - Spine/Neurosurgery - 03/17/2024 Dr Aquino - Infectious Diseases Lyn BRISENO - Ent-Otolaryngology Dr Garcia - Neurology Dr. Gracia - Pain management History of Spine Injections/Surgery: None for spine 05/15/2024 Left shoulder injection w/ orthopaedic surgery 03/24/24 Bilateral TMJ nerve block injection with 50% relief w/ Dr. Blankenship Other Issues Addressed at the Visit Today: None. Precipitating Event: None PAIN EVALUATION 05/19/20241943 Pain Level: 7 Pain Location: Cheek Description: Burning;Crushing;Incisio n;Pressure Ulcer/Injury;Raw;Shootin g;Stabbing;Stiffness;Tig htness Duration Amount of Time: 2 Duration Units: Years Frequency: Continuous Intervention/Comfort measure: Medication;Distractions; Heat;Splinting;Therapeut ic techniques-CPRP Comments: Deviated septum out of control Litigation: No Workers' Compensation: No YELLOW AND BLUE FLAGS YES-Neg Attitude; Back Pain is Disabling YES-Avoiding Activity (for Fear of Pain) YES-Depression or Anxiety Disorders No-Social Problems No-Substance Use Disorder No-Job Dissatisfaction No-Financial Disincentives Patient Entered Questionnaires 03/13/2024 Spine Questions Pain Location: Other Pain Duration: 1 to 5 years Pain over last 6 months: Every day or nearly every day in the past 6 months Symptoms from neck/cervical spine: Yes Employment Status: Other Off work 1 month or more due to back/neck pain: Yes Applied for/receive disability/WC due to low back/neck pain Does not apply Involved in law suit/legal claim: No 03/13/2024 Spine Red Flags Any type of cancer: No Unexplained fever: No Bowel or bladder disfunction: No Unintentional weight loss: No Osteoporosis: No 03/13/2024 Neck Questionnaires Benzel Modified KOBE Score Incomplete PROMIS Score Percentiles 01/28/2024 03/13/2024 Physical Health Physical Function Percentile 0 2 Sleep Percentile 14 Fatigue Percentile 1 Pain Interference Percentile 0 03/13/2024 PROMIS SOCIAL ROLE SCORE Social Role Satisfaction Percentile 2 12/08/2023 03/13/2024 PROMIS Global Health Scale Physical Health Percentile 1 2 Mental Health Percentile 2 2 Percentiles provide an indication of how the patient's score ranks in relation to the gene (more content not included)... Normal [facility] CNPRea 05-22-2024 CNPN Telephone (PSYRMN) -------- RAHEEM COHN ([id number]) 1975 M Date Time Provider Department 05/22/24 POLY DOTY PSYRMN During your visit today, we recorded the following information about you: Ag Janie Fairchild 05/22/2024 4:48 PM Signed Request was received by the Behavioral Health Outpatient Access team, from Raheem Cohn ( ) to schedule within the ADHD clinic. Because the patient presents with additional psychatric concerns other than ADHD (specifically anxiety), a message has been routed to Poly Doty within the ADHD clinic for review prior to scheduling. Patient has been informed of the following: -Availability within this program is very limited -Review can take up to 3-4 weeks, at which time the patient will be contacted regarding the outcome. -If the patient is not a candidate, they will be provided with resources within [facility]'s Tier 1 Quality [place]. -If the patient is a candidate to be scheduled, their initial appointment will be an in-person evaluation that will determine course of treatment, which may include individual visits, group visits, or a recommendation to seek care outside of [facility]. There is no guarantee that medications will be prescribed at this visit. anxiety Allergies As of Date: 05/22/2024 Noted Allergy Reaction PENICILLINS 06/03/2007 10 - Anaphylaxis Date Reviewed: 05/22/2024 Reviewed by: Connie Milligan LPN - Fully Assessed Prescriptions as of 08/10/2024 - tiZANidine (ZANAFLEX) 4 mg tablet Take 1 tablet by mouth as needed (for facial pain/jaw pain/muscle pulling). - DULoxetine (CYMBALTA) 30 mg capsule Take 1 capsule by mouth once daily for 7 days, THEN 2 capsules once daily. - sodium chloride (SALINE NASAL) 0.65 % nasal spray Use 3 sprays in the nose every 2 hours while awake. - pregabalin (LYRICA) 75 mg capsule Take 75 mg by mouth. - cyanocobalamin, vitamin B-12, (B-12 COMPLIANCE INJECTION) by INJECTION(UNSPECIFIED PARENTERAL ROUTES) route once every month. - clonazePAM (KLONOPIN) 1 mg tablet Take 1 mg by mouth two times a day as needed for anxiety. - ubidecarenone Q-10 (CO Q-10) 10 mg cap Take 10 mg by mouth three times a day. - triamcinolone acetonide (KENALOG) 0.1 % ointment Apply thin layer to affected areas twice daily M-F. Take weekends off. Do not apply to face. Problem List As Of Date 05/22/2024 Noted Resolved Anxiety state, unspecified [F41.1] Insomnia, unspecified [G47.00] Amphetamine and other psychostimulant dependenc*06/03/2007 Hepatitis C [B19.20] 05/13/2012 Lumbar disc herniation [M51.26] 05/13/2012 Lumbago [M54.50] 05/13/2012 Spondylolisthesis, grade 1 [M43.10] 05/13/2012 DDD (degenerative disc disease), lumbar [M51.36*05/13/2012 Polysubstance dependence including opioid type *05/13/2012 Weight loss [R63.4] 09/25/2013 Fatigue [R53.83] 09/25/2013 Encounter Status:Closed by JANIE KNUTSON on 08/10/24 Normal [facility] MRI CERVICAL SPINE WO IVCONo n 05-19-2024 MRI CERVICAL SPINE WO IVCON * * *Final Report* * * DATE OF EXAM: May 19 2024 7:03PM [facility] [id number] - MRI CERVICAL SPINE WO IVCON / PROCEDURE REASON: multiple diagnoses * * * * Physician Interpretation * * * * EXAMINATION: MRI CERVICAL SPINE WO IVCON CLINICAL HISTORY: Cervicalgia Localized swelling, mass or lump of neck TECHNIQUE: Routine cervical spine MR protocol without gadolinium. MQ: [id number] COMPARISON: None. RESULT: Counting reference: Craniocervical junction. Anatomic Variants: None. Localizer images: No additional findings Alignment: Alignment is anatomic. Craniocervical junction: Craniocervical junction is normal. Cord: The visualized cord is within normal limits of signal intensity and morphology. Bone marrow signal/fracture: No evidence of pathologic marrow infiltration. No evidence of prior fracture. Cervical soft tissues: The paraspinal soft tissues are within normal limits. C2-C3: Mild degenerative change. Canal and foramina are patent. C3-C4: Mild degenerative change. Canal and foramina are patent. C4-C5: Mild degenerative change. Canal and foramina are patent. C5-C6: Disc height loss with endplate hypertrophy and disc osteophyte complex mildly narrowing the canal. Slight left foraminal narrowing from facet and uncinate degenerative change. Right foramen is patent. C6-C7: Moderate disc height loss. Minimal left foraminal narrowing from facet and uncinate degenerative change. Canal and right foramen remain patent. C7-T1: Canal and foramina are patent. IMPRESSION: Mild degenerative changes in the cervical spine detailed by level in the body the report without high-grade canal stenosis. Anatomic Variant: None. Assume 7 cervical vertebrae with counting from the craniocervical junction. Motor And Chassis Inspector: JEFFREY Transcribe Date/Time: May 20 2024 9:22A Dictated by : BLUE MARI MD This examination was interpreted and the report reviewed and electronically signed by: BLUE MARI MD on May 20 2024 9:23AM EST [id number] [facility] CNCOon 05-15-2024 CNCO Letter Text Normal [facility] CNOVon 05-15-2024 CNOV Office Visit ([facility] ) -------- RAHEEM COHN ([id number]) 1975 M Date Time Provider Department 05/15/24 3:00 PM BRANDY ERICKSON During your visit today, we recorded the following information about you: Brandy Erickson PA-C 05/15/2024 3:03 PM Signed DEPARTMENT OF ORTHOPAEDICS SUBJECTIVE Pt presents today for left shoulder tendonitis, discussed CSI and patient wishes to be a candidate. Denies any complication from previous injections. OBJECTIVE Large Joint Arthro/Inj: L subacromial bursa 05/15/2024 3:03 PM The procedure site was prepped in the usual sterile fashion. Site: L subacromial bursa Medications: 80 mg triamcinolone acetonide 40 mg/mL Anesthetics: 8 mL lidocaine (PF) 10 mg/mL (1 %) Outcome: Tolerated well, no immediate complications Post-injection instructions were reviewed with the patient and the patient voiced understanding of these instructions. Informed Consent Consent Obtained: Verbal [place] Protocol A moment to CARE was completed. SIGN IN Personnel directly involved with the procedure wore the appropriate PPE. Special Equipment: N/A Patient/Surrogate Stated/Verified: Patient name, Date of , Relevant allergies and Intended procedure TIME OUT Relevant labs, photos, and/or imaging studies have been reviewed. Consent documented and matches the intended procedure. Correct side/site marked and visible. Medications required for procedure verified. No fire risk assessment and interventions applicable. No implant(s) inserted. SIGN OUT No specimen collected. ASSESSMENT Left shoulder tendonitis (primary encounter diagnosis) Acute pain of left shoulder PLAN Follow up as needed Brandy Erickson PA-C Allergies As of Date: 05/15/2024 Noted Allergy Reaction PENICILLINS 06/03/2007 10 - Anaphylaxis Date Reviewed: 05/15/2024 Reviewed by: Clifford Vann OCCA - Fully Assessed Reason for Visit: Injections [199] Primary Visit Diagnosis:Left shoulder tendonitis [M77.8] Other Visit Diagnosis:Acute pain of left shoulder [M25.512] Order(s):Large Joint Arthro/Inj: L subacromial bursa [DJW043] Order #: [id number] [] lidocaine (PF) 10 mg/mL (1 %) 8 mL injection (XYLOCAINE)Disp: Rfl: [] triamcinolone acetonide 80 mg injection (KeNALog 40)Disp: Rfl: Prescriptions as of 05/15/2024 - b complex, c, folic acid 1 mg renal vitamins (NEPHROCAPS) 1 mg capsule Take 1 capsule by mouth every morning. - Ferrous Gluconate 240 mg (27 mg iron) tablet Take by mouth as directed. - fluticasone (FLONASE) 50 mcg/actuation nasal spray Use in the nose. - ketoconazole (NIZORAL) 2 % shampoo Apply 1 Application to affected area. - niacin (NIACIN) 100 mg tablet Take by mouth as directed. - Vitamin A 2,400 mcg capsule Take 8,000 Units by mouth. - saliva stimulant comb. no.4 spry Use 2 Sprays as instructed every 4 hours as needed. - clonazePAM (KLONOPIN) 0.5 mg tablet Take 1 mg by mouth. - gabapentin (NEURONTIN) 300 mg capsule Take 600 mg by mouth three times a day. - vit B complex no.12/niacin,B3, (VITAMIN B COMPLEX NO.12-NIACIN ORAL) Take by mouth. - chlorproMAZINE (THORAZINE) 50 mg tablet Take 2 tablets by mouth one time only for 1 dose. Take 1 hour prior to MRI. - terbinafine HCl (LAMISIL) 250 mg tablet Take 250 mg by mouth once daily. - QUEtiapine (SEROQUEL) 100 mg tablet Take 200 mg by mouth daily at bedtime. - nortriptyline (PAMELOR) 25 mg capsule Take 1 capsule by mouth two times a day. - omeprazole (PRILOSEC) 40 mg capsule Take 40 mg by mouth once daily. Problem List As Of Date 05/15/2024 Noted Resolved Anxiety state, unspecified [F41.1] Insomnia, unspecified [G47.00] Amphetamine and other psychostimulant dependenc*06/03/2007 Hepatitis C [B19.20] 05/13/2012 Lumbar disc herniation [M51.26] 05/13/2012 Lumbago [M54.50] 05/13/2012 Spondylolisthesis, grade 1 [M43.10] 05/13/2012 DDD (degenerative disc disease), lumbar [M51.36*05/13/2012 Polysubstance dependence including opioid type *05/13/2012 Weight loss [R63.4] 09/25/2013 Fatigue [R53.83] 09/25/2013 Prescriptions ordered this encounter Disp Refills Start End LIDOCAINE (PF) 10 MG/ML (1 %) INJECT* 05/15/2024 05/15/2024 Route: Inj-ORTHO TRIAMCINOLONE ACETONIDE 40 MG/ML [place]* 05/15/2024 05/15/2024 Route: Inj-ORTHO Encounter Status:Closed by BRANDY ERICKSON on 05/15/24 Normal [facility] ESTROGEN FRACTION BLon 05-15 ESTRADIOL 30.3 pg/mL Normal 10.0-42.0 [facility] Comment on above: Order Comment: Speci men Type: BLOOD SPECIMENOrdering Facility: [facility] Address: [facility] [place] [address] Result Comment: REFE RENCE INTERVAL: Estradiol by Studio Data Analyst For a complete set of all established reference intervals, refer to [employer]/Tests/Pub/[id number]. This test was developed and its performance characteristics determined by [facility]. It has not been cleared or approved by the US Food and Drug Administration. This test was performed in a CLIA certified laboratory and is intended for clinical purposes. Performed By: #### E STGEN ####[facility]amapediaCLIA [id number] [place] [id number] ESTROGENS TOTAL 45.7 pg/mL Normal 19.0-69.0 [facility] Comment on above: Order Comment: Speci men Type: BLOOD SPECIMENOrdering Facility: [facility] Address: [facility] [address] Result Comment: Refe rence interval of estrogens (pg/mL) Estrone Estradiol Total Estrogens Early follicular <150.0 30.0-100.0 30.0-250.0 Late follicular 100.0-250.0 100.0-400.0 200.0-650.0 Luteal <200.0 50.0-150.0 50.0-350.0 Post-menopausal 3.0-32.0 2.0-21.0 5.0-52.0 REFERENCE INTERVAL: Estrogens Total Calculation For a complete set of all established reference intervals, refer to [employer]/Tests/Pub/[id number]. Performed By: [facility] [address] [place] [address] Enterprise Application Developer: Vanesa Ricci MD, PhD CLIA Number: [id number] Performed By: #### E STGEN ####MamapediaCLIA [id number] [place] [id number] ESTRONE 15.4 pg/mL Normal 9.0-36.0 [facility] Comment on above: Order Comment: Speci men Type: BLOOD SPECIMENOrdering Facility: [facility] Address: [address] [place] [id number] Result Comment: INTE RPRETIVE INFORMATION: Estrone by Studio Data Analyst For a complete set of all established reference intervals, refer to ltd.[address]/Tests/Pub/[id number]. This test was developed and its performance characteristics determined by [facility]. It has not been cleared or approved by the US Food and Drug Administration. This test was performed in a CLIA certified laboratory and is intended for clinical purposes. Performed By: #### E STGEN ####[facility]ENTER[facility]IA [id number] [place] [address] Estradiol SerPl-ncon 05-15 E2 [Mass/Vol] 26 pg/mL Normal <38 [facility] Comment on above: Order Comment: Speci men Type: BLOOD SPECIMEN Ordering Facility: [facility] Address: [address] [place] [id number] Result Comment: This test is not suitable for patients receiving treatment with the drug Fulvestrant (Faslodex). The drug causes an interference leading to falsely elevated estradiol results. Performed By: #### 2 243-4 #### [facility] CLIA [id number] [address] [place] [address] [place] Large Joint Arthro/Inj: L martinez bacromial bursaon 05-15-2024 Adama Erickson PA-C 05/15/2024 3:03 PM Large Joint Arthro/Inj: L subacromial bursa 05/15/2024 3:03 PM The procedure site was prepped in the usual sterile fashion. Site: L subacromial bursa Medications: 80 mg triamcinolone acetonide 40 mg/mL Anesthetics: 8 mL lidocaine (PF) 10 mg/mL (1 %) Outcome: Tolerated well, no immediate complications Post-injection instructions were reviewed with the patient and the patient voiced understanding of these instructions. Informed Consent Consent Obtained: Verbal [place] Protocol A moment to CARE was completed. SIGN IN Personnel directly involved with the procedure wore the appropriate PPE. Special Equipment: N/A Patient/Surrogate Stated/Verified: Patient name, Date of , Relevant allergies and Intended procedure TIME OUT Relevant labs, photos, and/or imaging studies have been reviewed. Consent documented and matches the intended procedure. Correct side/site marked and visible. Medications required for procedure verified. No fire risk assessment and interventions applicable. No implant(s) inserted. SIGN OUT No specimen collected. [facility] Krishna 05-12-2024 CNPN Telephone (SPNMMN) -------- RAHEEM COHN ([id number]) 1975 M Date Time Provider Department 05/12/24 GABE MARIN [facility] During your visit today, we recorded the following information about you: Azeb Turner, REDD 05/15/2024 8:29 AM Signed Neuro SPINE CARE COORDINATION QUICK NOTE Faxed requested documents to appeals department at [phone] Magnolia Jacques 05/17/2024 4:32 PM Signed Pt was advised by insurance to have provider call the provider line. Below is the number and also a auth code. Pt states that our finance dept was working on this too. 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 - Ferrous Gluconate 240 mg (27 mg iron) tablet Take by mouth as directed. - fluticasone (FLONASE) 50 mcg/actuation nasal spray Use in the nose. - ketoconazole (NIZORAL) 2 % shampoo Apply 1 Application to affected area. - niacin (NIACIN) 100 mg tablet Take by mouth as directed. - Vitamin A 2,400 mcg capsule Take 8,000 Units by mouth. - saliva stimulant comb. no.4 spry Use 2 Sprays as instructed every 4 hours as needed. - clonazePAM (KLONOPIN) 0.5 mg tablet Take 1 mg by mouth. - gabapentin (NEURONTIN) 300 mg capsule Take 600 mg by mouth three times a day. - vit B complex no.12/niacin,B3, (VITAMIN B COMPLEX NO.12-NIACIN ORAL) Take by mouth. - chlorproMAZINE (THORAZINE) 50 mg tablet Take 2 tablets by mouth one time only for 1 dose. Take 1 hour prior to MRI. - terbinafine HCl (LAMISIL) 250 mg tablet Take 250 mg by mouth once daily. - QUEtiapine (SEROQUEL) 100 mg tablet Take 200 mg by mouth daily at bedtime. - nortriptyline (PAMELOR) 25 mg capsule Take 1 capsule by mouth two times a day. - omeprazole (PRILOSEC) 40 mg capsule Take 40 mg by mouth once daily. Problem List As Of Date 05/12/2024 Noted Resolved Anxiety state, unspecified [F41.1] Insomnia, unspecified [G47.00] Amphetamine and other psychostimulant dependenc*06/03/2007 Hepatitis C [B19.20] 05/13/2012 Lumbar disc herniation [M51.26] 05/13/2012 Lumbago [M54.50] 05/13/2012 Spondylolisthesis, grade 1 [M43.10] 05/13/2012 DDD (degenerative disc disease), lumbar [M51.36*05/13/2012 Polysubstance dependence including opioid type *05/13/2012 Weight loss [R63.4] 09/25/2013 Fatigue [R53.83] 09/25/2013 Encounter Status:Closed by AZEB TURNER on 05/12/24 Normal [facility] MR Shoulder - left WO contra javon 04-26-2024 IMPRESSION: 1. Mild supraspinatus tendinitis with tiny partial articular sided tear of the distal anterior fibers 0.5 cm. 2. Minimal acromioclavicular and glenohumeral osteoarthropathy. Mild AC joint and acromial impingement. Degenerative glenoid labral tear. Motor And Chassis Inspector: PSCB Transcribe Date/Time: Apr 26 2024 2:13P Dictated by : RODOLFO MCCOY MD This examination was interpreted and the report reviewed and electronically signed by: RODOLFO MCCOY MD on Apr 26 2024 2:20PM [facility] DIVISION OF RADIOLOGY * * *Final Report* * * DATE OF EXAM: Apr 26 2024 12:59PM LN 0239 - MRI SHOULDER WO IVCON LT / PROCEDURE REASON: Acute pain of left shoulder * * * * Physician Interpretation * * * * EXAM: MRI SHOULDER WO IVCON LT HISTORY: Acute pain of left shoulder. TECHNIQUE: MRI SHOULDER WO IVCON LT. Multiplanar multisequence imaging of the left shoulder was performed without contrast material. COMPARISON: X-ray 04/07/2024 RESULT: BONES AND MARROW: No fracture, avascular necrosis, or marrow replacing process. ROTATOR CUFF TENDONS: Subscapularis: Intact. Supraspinatus/infraspina tus: Tiny shallow articular surface tear of the anterior to mid supraspinatus measuring 0.5 cm anterior to posterior and minimally thinning the tendon series 6 image 13. Minimal supraspinatus enthesopathy, trace increased T2 signal. Infraspinatus is normal in signal, intact. Small humeral subchondral cyst at the junction of the supraspinatus and infraspinatus. Teres minor: Intact. MUSCLES: No rotator cuff muscle atrophy or significant fatty infiltration. Negative tangent sign. Deltoid is within normal limits for volume with no acute injury. LONG HEAD BICEPS TENDON: Long head biceps tendon demonstrates normal signal, morphology, and course. No significant biceps tenosynovitis. LABRUM: There is degeneration within the glenoid labrum with degenerative tear superiorly and posterior superiorly. JOINTS: Acromioclavicular joint: Mild acromioclavicular osteoarthropathy with small osteophytes. Trace degenerative edema distal clavicle. Tiny AC joint effusion. There is mild AC joint and anterior acromial impingement. Curved type II acromion. Glenohumeral Joint: Mild glenoid cartilage thinning posteriorly. There is no evidence of capsular thickening, inflammation or tear. BURSA: No pathologic distention of the subacromial or subdeltoid bursa. SOFT TISSUES: No abnormality. DIVISION OF RADIOLOGY Provider, Sabiha Parvez Henna - 04/26/2024 * * *Final Report* * * DATE OF EXAM: Apr 26 2024 12:59PM LNM 0239 - MRI SHOULDER WO IVCON LT / PROCEDURE REASON: Acute pain of left shoulder * * * * Physician Interpretation * * * * EXAM: MRI SHOULDER WO IVCON LT HISTORY: Acute pain of left shoulder. TECHNIQUE: MRI SHOULDER WO IVCON LT. Multiplanar multisequence imaging of the left shoulder was performed without contrast material. COMPARISON: X-ray 04/07/2024 RESULT: BONES AND MARROW: No fracture, avascular necrosis, or marrow replacing process. ROTATOR CUFF TENDONS: Subscapularis: Intact. Supraspinatus/infraspina tus: Tiny shallow articular surface tear of the anterior to mid supraspinatus measuring 0.5 cm anterior to posterior and minimally thinning the tendon series 6 image 13. Minimal supraspinatus enthesopathy, trace increased T2 signal. Infraspinatus is normal in signal, intact. Small humeral subchondral cyst at the junction of the supraspinatus and infraspinatus. Teres minor: Intact. MUSCLES: No rotator cuff muscle atrophy or significant fatty infiltration. Negative tangent sign. Deltoid is within normal limits for volume with no acute injury. LONG HEAD BICEPS TENDON: Long head biceps tendon demonstrates normal signal, morphology, and course. No significant biceps tenosynovitis. LABRUM: There is degeneration within the glenoid labrum with degenerative tear superiorly and posterior superiorly. JOINTS: Acromioclavicular joint: Mild acromioclavicular osteoarthropathy with small osteophytes. Trace degenerative edema distal clavicle. Tiny AC joint effusion. There is mild AC joint and anterior acromial impingement. Curved type II acromion. Glenohumeral Joint: Mild glenoid cartilage thinning posteriorly. There is no evidence of capsular thickening, inflammation or tear. BURSA: No pathologic distention of the subacromial or subdeltoid bursa. SOFT TISSUES: No abnormality. IMPRESSION IMPRESSION: 1. Mild supraspinatus tendinitis with tiny partial articular sided tear of the distal anterior fibers 0.5 cm. 2. Minimal acromioclavicular and glenohumeral osteoarthropathy. Mild AC joint and acromial impingement. Degenerative glenoid labral tear. Motor And Chassis Inspector: JEFFREY Transcribe Date/Time: Apr 26 2024 2:13P Dictated by : RODOLFO MCCOY MD This examination was interpreted and the report reviewed and electronically signed by: RODOLFO MCCOY MD on Apr 26 2024 2:20PM EST [facility] Radiology Study observation (narrative) [facility] MR Shoulder - left WO contra stOrdered By: [facility] Provider on 04-26-2024 [facility] MRI SHOULDER WO IVCON LTon 0 04-26-2024 MRI SHOULDER WO IVCON LT * * *Final Report* * * DATE OF EXAM: Apr 26 2024 12:59PM LNM 0239 - MRI SHOULDER WO IVCON LT / PROCEDURE REASON: Acute pain of left shoulder * * * * Physician Interpretation * * * * EXAM: MRI SHOULDER WO IVCON LT HISTORY: Acute pain of left shoulder. TECHNIQUE: MRI SHOULDER WO IVCON LT. Multiplanar multisequence imaging of the left shoulder was performed without contrast material. COMPARISON: X-ray 04/07/2024 RESULT: BONES AND MARROW: No fracture, avascular necrosis, or marrow replacing process. ROTATOR CUFF TENDONS: Subscapularis: Intact. Supraspinatus/infraspina tus: Tiny shallow articular surface tear of the anterior to mid supraspinatus measuring 0.5 cm anterior to posterior and minimally thinning the tendon series 6 image 13. Minimal supraspinatus enthesopathy, trace increased T2 signal. Infraspinatus is normal in signal, intact. Small humeral subchondral cyst at the junction of the supraspinatus and infraspinatus. Teres minor: Intact. MUSCLES: No rotator cuff muscle atrophy or significant fatty infiltration. Negative tangent sign. Deltoid is within normal limits for volume with no acute injury. LONG HEAD BICEPS TENDON: Long head biceps tendon demonstrates normal signal, morphology, and course. No significant biceps tenosynovitis. LABRUM: There is degeneration within the glenoid labrum with degenerative tear superiorly and posterior superiorly. JOINTS: Acromioclavicular joint: Mild acromioclavicular osteoarthropathy with small osteophytes. Trace degenerative edema distal clavicle. Tiny AC joint effusion. There is mild AC joint and anterior acromial impingement. Curved type II acromion. Glenohumeral Joint: Mild glenoid cartilage thinning posteriorly. There is no evidence of capsular thickening, inflammation or tear. BURSA: No pathologic distention of the subacromial or subdeltoid bursa. SOFT TISSUES: No abnormality. IMPRESSION: 1. Mild supraspinatus tendinitis with tiny partial articular sided tear of the distal anterior fibers 0.5 cm. 2. Minimal acromioclavicular and glenohumeral osteoarthropathy. Mild AC joint and acromial impingement. Degenerative glenoid labral tear. [facility] And Chassis [facility] Transcribe Date/Time: Apr 26 2024 2:13P Dictated by : RODOLFO MCCOY MD This examination was interpreted and the report reviewed and electronically signed by: RODOLFO MCCOY MD on Apr 26 2024 2:20PM EST [id number] Normal [facility] RAHEEM COHN ([id number]) 1975 M Date Time Provider Department 04/25/24 GABE MARIN [facility] During your visit today, we recorded the following information about you: Kristal Warren 04/25/2024 10:27 AM Signed [facility] Gabe Marin [facility] today requesting PT orders to be faxed to their office. Cleopatra states Raheem is already scheduled, they just need the order. F: [phone] P: [phone] Patient has been identified by name and birthdate. Duration of symptoms: N/A Person calling: Cleopatra Call patient at: at home [phone] (home) Was an appointment scheduled: No Closing statement: Results or non-symptom based questions: Thank you for calling [facility], your call will be returned within the next business day. Azeb Calderon, REDD 04/25/2024 10:34 AM Signed Neuro SPINE CARE COORDINATION QUICK NOTE PT order faxed to [facility] Allergies As of Date: 04/25/2024 Noted Allergy Reaction PENICILLINS 06/03/2007 10 - Anaphylaxis Date Reviewed: 04/24/2024 Reviewed by: Damion Oseguera LPN - Fully Assessed Reason for Visit: PT Orders [Other] Prescriptions as of 04/25/2024 - b complex, c, folic acid 1 mg renal vitamins (NEPHROCAPS) 1 mg capsule Take 1 capsule by mouth every morning. - Ferrous Gluconate 240 mg (27 mg iron) tablet Take by mouth as directed. - fluticasone (FLONASE) 50 mcg/actuation nasal spray Use in the nose. - ketoconazole (NIZORAL) 2 % shampoo Apply 1 Application to affected area. - niacin (NIACIN) 100 mg tablet Take by mouth as directed. - Vitamin A 2,400 mcg capsule Take 8,000 Units by mouth. - saliva stimulant comb. no.4 spry Use 2 Sprays as instructed every 4 hours as needed. - clonazePAM (KLONOPIN) 0.5 mg tablet Take 1 mg by mouth. - gabapentin (NEURONTIN) 300 mg capsule Take 600 mg by mouth three times a day. - vit B complex no.12/niacin,B3, (VITAMIN B COMPLEX NO.12-NIACIN ORAL) Take by mouth. - chlorproMAZINE (THORAZINE) 50 mg tablet Take 2 tablets by mouth one time only for 1 dose. Take 1 hour prior to MRI. - terbinafine HCl (LAMISIL) 250 mg tablet Take 250 mg by mouth once daily. - QUEtiapine (SEROQUEL) 100 mg tablet Take 200 mg by mouth daily at bedtime. - nortriptyline (PAMELOR) 25 mg capsule Take 1 capsule by mouth two times a day. - omeprazole (PRILOSEC) 40 mg capsule Take 40 mg by mouth once daily. Problem List As Of Date 04/25/2024 Noted Resolved Anxiety state, unspecified [F41.1] Insomnia, unspecified [G47.00] Amphetamine and other psychostimulant dependenc*06/03/2007 Hepatitis C [B19.20] 05/13/2012 Lumbar disc herniation [M51.26] 05/13/2012 Lumbago [M54.50] 05/13/2012 Spondylolisthesis, grade 1 [M43.10] 05/13/2012 DDD (degenerative disc disease), lumbar [M51.36*05/13/2012 Polysubstance dependence including opioid type *05/13/2012 Weight loss [R63.4] 09/25/2013 Fatigue [R53.83] 09/25/2013 Encounter Status:Closed by AZEB TURNER on 04/25/24 [facility] CNPN Telephone (NIQ) -------- ESCOBAR,RAHEEM Crowley ([id number]) 1975 M Date Time Provider Department 04/25/24 GABE MARIN During your visit today, we recorded the following information about you: Senia Gray 04/25/2024 2:47 PM Signed Raheem Crowley Cohn is calling Gabe Marin [facility] today to ask if there is anything that can be done to help with his swallowing issues. He feels it is related to his neck issues. He has to use extreme effort to swallow. No chief complaint on file. Patient has been identified by name and birthdate. Duration of symptoms: 10 months Person calling: self Call patient at: at home [phone] (home) Was an appointment scheduled: Yes: Date/Time: [id number] Closing statement: Symptom Call: Thank you for calling [facility], your call is very important. A nurse will call in approximately 2-4 hours during business hours. If this is an emergency, please contact 911. Azeb Young, RN 04/26/2024 8:12 AM Signed Neuro SPINE CARE COORDINATION QUICK NOTE Attempted to contact patient, left VM to call the office back. Phone number provided. Also sent [employer] message Allergies As of Date: 04/25/2024 Noted Allergy Reaction PENICILLINS 06/03/2007 10 - Anaphylaxis Date Reviewed: 04/24/2024 Reviewed by: Damion Oseguera LPN - Fully Assessed Prescriptions as of 04/26/2024 - b complex, c, folic acid 1 mg renal vitamins (NEPHROCAPS) 1 mg capsule Take 1 capsule by mouth every morning. - Ferrous Gluconate 240 mg (27 mg iron) tablet Take by mouth as directed. - fluticasone (FLONASE) 50 mcg/actuation nasal spray Use in the nose. - ketoconazole (NIZORAL) 2 % shampoo Apply 1 Application to affected area. - niacin (NIACIN) 100 mg tablet Take by mouth as directed. - Vitamin A 2,400 mcg capsule Take 8,000 Units by mouth. - saliva stimulant comb. no.4 spry Use 2 Sprays as instructed every 4 hours as needed. - clonazePAM (KLONOPIN) 0.5 mg tablet Take 1 mg by mouth. - gabapentin (NEURONTIN) 300 mg capsule Take 600 mg by mouth three times a day. - vit B complex no.12/niacin,B3, (VITAMIN B COMPLEX NO.12-NIACIN ORAL) Take by mouth. - chlorproMAZINE (THORAZINE) 50 mg tablet Take 2 tablets by mouth one time only for 1 dose. Take 1 hour prior to MRI. - terbinafine HCl (LAMISIL) 250 mg tablet Take 250 mg by mouth once daily. - QUEtiapine (SEROQUEL) 100 mg tablet Take 200 mg by mouth daily at bedtime. - nortriptyline (PAMELOR) 25 mg capsule Take 1 capsule by mouth two times a day. - omeprazole (PRILOSEC) 40 mg capsule Take 40 mg by mouth once daily. Problem List As Of Date 04/25/2024 Noted Resolved Anxiety state, unspecified [F41.1] Insomnia, unspecified [G47.00] Amphetamine and other psychostimulant dependenc*06/03/2007 Hepatitis C [B19.20] 05/13/2012 Lumbar disc herniation [M51.26] 05/13/2012 Lumbago [M54.50] 05/13/2012 Spondylolisthesis, grade 1 [M43.10] 05/13/2012 DDD (degenerative disc disease), lumbar [M51.36*05/13/2012 Polysubstance dependence including opioid type *05/13/2012 Weight loss [R63.4] 09/25/2013 Fatigue [R53.83] 09/25/2013 Encounter Status:Closed by AZEB TURNER on 04/26/24 [facility] CNOVon 04-24-2024 CNOV Office Visit ([facility] ) -------- ESCOBARRAHEEM ([id number]) 1975 M Date Time Provider Department 04/24/24 2:00 PM GABE MARIN [facility] During your visit today, we recorded the following information about you: Weight Height 88 kg 1.778 m Gabe Marin [facility] 04/24/2024 3:47 PM Signed Spine Care Path Neck Pain - Chronic (> 12 weeks) Initial Exam SUBJECTIVE HISTORY OF PRESENT ILLNESS: Raheem Cohn is a 49 year old male who presents with a chief complaint of neck pain and is seen in consultation requested by Brandy Erickson PA-C for an opinion regarding neck pain. My final recommendations will be communicated back to the requesting physician by way of shared medical record or letter via US mail. Patient presents with neck pain for 14 months. He believes symptoms started after having some kind of infection while working in [place]. He states that he became ill in [place] and when he returned to [place] he was diagnosed with an infection . He states that since this time he has experienced jaw pain, difficulty swallowing, neck pain, and swelling of his neck. He reports that jaw pain and difficulty swallowing is his main concern. He has been evaluated by primary care, ENT, neurosurgery, infectious disease, and pain management in regards to pain and difficulty swallowing. He is also under the evaluation of orthopedic surgery in regards to left shoulder pain. He states at time of appointment that he feels that all his symptoms are connected. 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 Pain rated 9/10 Pain worse with trying to swallow, panicking, Pain improved with tens unit, air cast , heat, holding his head, keeping perfectly straight posture. Interventions: Tens unit, medication , air cast Medications:Gabapentin, Clonazepam, Pamelor, Seroquel, Thorazine, Prilosec, Lamisil, Past medications: tramadol, Physical Therapy: 01/28/2024 - 1 visit for TMJ - stopped due to pain. Treating Physicians: Dr. Germain -PCP Brandy BRISENO - Orthopaedics - Referring Provider Kay BRISENO - Spine/Neurosurgery - 03/17/2024 Dr Aquino - Infectious Diseases Lyn BRISENO - Ent-Otolaryngology Dr Garcia - Neurology Dr. Garcia - Pain management History of Spine Injections/Surgery: None for spine 03/24/24 Bilateral TMJ nerve block injection with 50% relief w/ Dr. Blankenship Other Issues Addressed at the Visit Today: None. Precipitating Event: None PAIN EVALUATION 04/22/2024 1512 04/24/2024 1344 Pain Level: 4 9 Pain Location: Neck Neck Description: Cramping;Numbness;Pressu re;Tightness Aching;Stabbing Duration Amount of Time: 10 13 Duration Units: Months Months Frequency: Continuous Continuous Intervention/Comfort measure: Medication;Relaxation;He at;Spinal Cord Stimulator -- Comments: Entire head and mid back -- Litigation: No Workers' Compensation: No YELLOW AND BLUE FLAGS YES-Neg Attitude; Back Pain is Disabling YES-Avoiding Activity (for Fear of Pain) YES-Depression or Anxiety Disorders No-Social Problems No-Substance Use Disorder No-Job Dissatisfaction No-Financial Disincentives Patient Entered Questionnaires 03/13/2024 Spine Questions Pain Location: Other Pain Duration: 1 to 5 years Pain over last 6 months: Every day or nearly every day in the past 6 months Symptoms from neck/cervical spine: Yes Employment Status: Other Off work 1 month or more due to back/neck pain: Yes Applied for/receive disability/WC due to low back/neck pain Does not apply Involved in law suit/legal claim: No 03/13/2024 Spine Red Flags Any type of cancer: No Unexplained fever: No Bowel or bladder disfunction: No Unintentional weight loss: No Osteoporosis: No 03/13/2024 Neck Questionnaires Benzel Modified KOBE Score Incomplete PROMIS Score Percentiles 01/28/2024 03/13/2024 Physical Health Physical Function Percentile 0 2 Sleep Percentile 14 Fatigue Percentile 1 Pain Interference Percentile 0 03/13/2024 PROMIS SOCIAL ROLE SCORE Social Role Satisfaction Percentile 2 12/08/2023 03/13/2024 PROMIS Global Health Scale Physical Health Percentile 1 2 Mental Health Percentile 2 2 Percentiles provide an indication of how the patient's score ranks in relation to the general population. Higher percentile rankings indicate better function/quality of life. 50th percentile is the average of the general population and indicates half of respondents had a worse score. Depression Screenin01/17/2024 1/ (more content not included)... Normal [facility] XR CERVICAL 4V AP/LAT/OBLon 04-24-2024 XR CERVICAL 4V AP/LAT/OBL * * *Final Report* * * DATE OF EXAM: Apr 24 2024 2:32PM CHX [id number] - XR CERVICAL 4V AP/LAT/OBL / PROCEDURE REASON: multiple diagnoses * * * * Physician Interpretation * * * * EXAM: XR CERVICAL 4V AP/LAT/OBL HISTORY: Cervicalgia Localized swelling, mass or lump of neck . Chronic neck pain. TECHNIQUE: XR CERVICAL 4V AP/LAT/OBL Number of different views (projections): 4 COMPARISON: None. RESULT: COUNTING REFERENCE: Craniocervical junction. ALIGNMENT: Trace retrolisthesis C2 on C3 and C3 on C4. Mild dextrocurvature of the cervical spine centered at C5-C6. HARDWARE: None. VERTEBRAE: Vertebral body heights are maintained. No lytic or blastic bone lesions. DISK SPACES: Mild disc space height loss at C5-C6 with small anterior posterior plate osteophytes. No endplate erosions. NEURAL FORAMINA: Mild bilateral neural foraminal narrowing at C5-C6 uncovertebral hypertrophy. CRANIOVERTEBRAL JUNCTION: No anomalies or subluxation identified. PARAVERTEBRAL SPACE: No prevertebral soft tissue swelling. The patient is edentulous. IMPRESSION: Mild cervical spondylosis. Motor And Chassis Inspector: JEFFREY Transcribe Date/Time: Apr 25 2024 10:00A Dictated by : LYN PENA MD This examination was interpreted and the report reviewed and electronically signed by: LYN PENA MD on Apr 25 2024 10:01AM EST [id number] Normal [facility] CNOVon 04-21-2024 CNOV Office Visit (OTOLMN ) -------- RAHEEM COHN ([id number]) 1975 M Date Time Provider Department 04/21/24 8:55 AM DIYA BONILLA OTOLMN During your visit today, we recorded the following information about you: Coral Barahona RN 04/21/2024 8:30 AM Signed Tobacco Use: Types: Cigarettes Was smoking cessation packet given? Patient Declined Was a referral initiated?Patient declined. Diya Bonilla MD 04/21/2024 9:02 AM Signed This consult is seen at the kind request of SUZANNA Shipman of otolaryngology, and my final recommendations will be communicated to the requesting health care provider by way of shared electronic medical record. This note is formatted with the impression and plan first and the history and physical to follow. IMPRESSION 49-year-old male with dysphagia, left nasal obstruction due to caudal septal deviation and mouth pain/discomfort. RECOMMENDATION/PLAN For his dysphagia, patient's flexible laryngoscopy exam was normal and his previous swallow study per patient was also normal. Therefore I do not recommend any further intervention at this time. If his symptoms gets worse, we can always consider repeat swallow study. For his mouth pain/discomfort, I see no obvious mucosal abnormalities. Patient was reassured. For his caudal septal deviation, I will refer the patient to our facial plastic surgeons with possible open septorhinoplasty. I will see him back on as-needed basis. Chief Complaint Trouble swallowing, dry mouth/mouth discomfort, left nasal obstruction. History of Present Illness Raheem Cohn is a 49 year old male present for eval for trouble swallowing, dry mouth/mouth discomfort and left nasal obstruction. Patient stated that his swallowing issues has been present for the last few years. He has trouble breathing through the left side of his nose. He has tried Flonase nasal spray with no improvement. He also complains of dry mouth and difficulty swallowing. However, patient stated that he had a swallow study which came back normal. He had his teeth pulled about a year ago and since then, he is having pain in his mouth and in the area of dental extraction. He stated that when he had his upper molar removed on the right side, he felt like something was twisted in his mouth and in his jaw. When he pushes on his face to the left side, he feels that his swallowing is better. He has no issue with swallowing when he drinks water but feels that when he is try to swallow with only his saliva, he has difficulty initiating swallowing. PAST MEDICAL HISTORY Diagnosis Date Amphetamine and other psychostimulant dependence, episodic (HCC) 06/03/2007 clean 09/11, again clean since 01/2013 Anxiety state, unspecified Carpal tunnel syndrome, bilateral Chronic back pain Heart murmur child Hepatitis C Insomnia, unspecified IVDU (intravenous drug user) in past, last in 2009 Verruca vulgaris right hand PAST SURGICAL HISTORY Procedure Laterality Date ANES DX/THER NERVE BLOCK/INJECTION PRONE POS 2012 CRYOSURGERY right hand wart PAST SURGICAL HISTORY OF 1992 right hand fracture FAMILY HISTORY Problem Relation Age of Onset other (Unknown [Other]) Father other (Anxiety [Other]) Mother CURRENT OUTPATIENT MEDICATIONS Current Outpatient Medications on File Prior to Visit Medication Sig b complex, c, folic acid 1 mg renal vitamins (NEPHROCAPS) 1 mg capsule Take 1 capsule by mouth every morning. Ferrous Gluconate 240 mg (27 mg iron) tablet Take by mouth as directed. fluticasone (FLONASE) 50 mcg/actuation nasal spray Use in the nose. ketoconazole (NIZORAL) 2 % shampoo Apply 1 Application to affected area. niacin (NIACIN) 100 mg tablet Take by mouth as directed. Vitamin A 2,400 mcg capsule Take 8,000 Units by mouth. saliva stimulant comb. no.4 spry Use 2 Sprays as instructed every 4 hours as needed. clonazePAM (KLONOPIN) 0.5 mg tablet Take 1 mg by mouth. gabapentin (NEURONTIN) 300 mg capsule Take 600 mg by mouth three times a day. vit B complex no.12/niacin,B3, (VITAMIN B COMPLEX NO.12-NIACIN ORAL) Take by mouth. chlorproMAZINE (THORAZINE) 50 mg tablet Take 2 tablets by mouth one time only for 1 dose. Take 1 hour prior to MRI. terbinafine HCl (LAMISIL) 250 mg tablet Take 250 mg by mouth once daily. QUEtiapine (SEROQUEL) 100 mg tablet Take 200 mg by mouth daily at bedtime. nortriptyline (PAMELOR) 25 mg capsule Take 1 capsule by mouth two times a day. omeprazole (PRILOSEC) 40 mg capsule Take 40 mg by mouth once daily. No current facility-administered medications on file prior to visit. ALLERGIES ALLERGIES Allergen Reactions Penicillins Anaphylaxis The remainder of the patient's history and review of systems is on the outpatient questionaire which was reviewed by me and placed in the outpatient chart. PHYSICAL EXAMINATION Appearance: General examination of the patient's e (more content not included)... Normal [facility] TESTOS FR MALE ADULTon 04-19 Testosterone Free Male 120 pg/mL Normal 47-244 So [facility] Comment on above: Result Comment: INTE RPRETIVE INFORMATION: Testosterone, Free Calculation Free testosterone concentration is calculated using total testosterone (measured by immunoassay) and the binding constant of testosterone and sex hormone-binding globulin (SHBG). Testosterone immunoassays are both imprecise and inaccurate at low testosterone concentrations, such as those found in children and cisgender females. For these individuals, testing by mass spectrometry is recommended; refer to Testosterone, Free (Adult Females, Children, or Individuals on Testosterone-Suppressing Hormone Therapy) ([facility]csc test code [id number]). For individuals on testosterone hormone therapy, refer to cisgender male reference intervals. No reference intervals have been established for males younger than 14 years or for cisgender females. For a complete set of all established reference intervals, refer to [address]/Tests/Pub/[id number]. Performed By: [facility] [address] [place] [address] Enterprise Application Developer: Vanesa Ricci MD, PhD CLIA Number: [id number] Performed By: #### 1 [id number] #### [facility] [address] [place] [address] Geological Engineer: Tomasz Easley MD CBCNDon 04-17-2024 Erythrocyte distribution width (RBC) [Ratio] 13.9 % Normal 11.5-14.5 [facility] Comment on above: Performed By: #### 1 09653, 729084, 145202, 257564, 8759367 #### [facility] [address] [place] [address]43 Geological Engineer: Tomasz Easley MD Hematocrit (Bld) [Volume fraction] 47.6 % Normal 41.0-52.0 [facility] Comment on above: Performed By: #### 1 56591, 346950, 575414, 249727, 7333568 #### [facility] [address] [place] [address]5917 Geological Engineer: Tomasz Easley MD Hemoglobin (Bld) [Mass/Vol] 16.6 g/dL Normal 13.5-17.5 [facility] Comment on above: Performed By: #### 1 52853, 487611, 603751, 391744, 0021721 #### [facility] [address] [place] [address] 14702 Geological Engineer: Tomasz Easley MD Instr WBC ND 5.8 Normal [facility] Comment on above: Performed By: #### 1 53779, 314609, 792035, 608080, 8992301 #### [facility] [address] [place] [address]243 Geological Engineer: Tomasz Easley MD MCH (RBC) [Entitic mass] 34.5 pg High 27.0-34.0 [facility] Comment on above: Performed By: #### 1 97903, 661124, 016901, 700311, 3087777 #### [facility] [address] [place] [address]4638 Geological Engineer: Tomasz Easley MD [facility] ([facility]) [Mass/Vol] 34.8 g/dL Normal 32.0-37.0 [facility] Comment on above: Performed By: #### 1 72378, 540605, 075259, 275916, 2047791 #### [facility] [address] [place] [address]7848 Geological Engineer: Tomasz Easley MD MCV (RBC) [Entitic vol] 99.2 fL Normal 80.0-100.0 [facility] Comment on above: Performed By: #### 1 32292, 402888, 305512, 506375, 7924651 #### [facility] [address] [place]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 KATELYNN+probe Ql (Unsp spec) Not detected Not Detected [facility] Campylobacter sp DNA.diarrheagenic KATELYNN+probe Ql (Stl) Not detected Not Detected [facility] Cryptosporidium sp DNA KATELYNN+probe Ql (Unsp spec) Not detected Not Detected [facility] E. coli O157:H7 DNA KATELYNN+probe Ql (Unsp spec) Not applicable Not detected [facility] E. coli stx1+stx2 genes KATELYNN+probe Ql (Stl) Not detected Not Detected [facility] E. histolytica DNA KATELYNN+probe Ql (Unsp spec) Not detected Not Detected [facility] Enteroaggregative E. coli (EAEC) DNA Not detected Not Detected [facility] Enteropathogenic E. coli (EPEC) DNA Not detected Not detected [facility] Enterotoxigenic E. coli (ETEC) DNA Not detected Not Detected [facility] G. lamblia DNA KATELYNN+probe Ql (Unsp spec) Not detected Not Detected [facility] Interpretation and review of laboratory results Normal [facility] Norovirus GI/GII RNA Not detected Not Detected [facility] Plesiomonas shigelloides DNA Not detected Not Detected [facility] Rotavirus A RNA Not detected Not Detected [facility] Salmonella sp DNA KATELYNN+probe Ql (Unsp spec) Not detected Not Detected [facility] Sapovirus (Genogroups I, II, IV, V) RNA Not detected Not Detected [facility] Shigella species+EIEC invasion plasmid antigen H ipaH gene KATELYNN+probe Ql (Stl) Not detected Not Detected [facility] V. cholerae DNA KATELYNN+probe Ql (Unsp spec) Not detected Not Detected [facility] Vibrio sp DNA KATELYNN+probe Nom (Unsp spec) Not detected Not Detected [facility] Yersinia sp DNA KATELYNN+probe Nom (Unsp spec) Not detected Not Detected [facility] Gastrointestinal pathogens p garrick KATELYNN+probe (Stl)on 04-14-2024 ADENOVIRUS F 40/41 DNA Not detected Normal Not Detecte d [facility] Comment on above: Order Comment: Speci men Type: STOOL SPECIMEN Ordering Facility: [facility] Address: [address] [place] [address] Performed By: #### 7 9381-0 #### [facility] CLIA [id number] [address] [place] [address] [place] ASTROVIRUS RNA Not detected Normal Not Detected [facility] Comment on above: Order Comment: Speci men Type: STOOL SPECIMEN Ordering Facility: [facility] Address: [address] [place] [address] Performed By: #### 7 9381-0 #### [facility] CLIA [id number] [address] [place] [address] [place] C. cayetanensis DNA KATELYNN+probe Ql (Unsp spec) Not detected Normal Not Detected [facility] Comment on above: Order Comment: Speci men Type: STOOL SPECIMEN Ordering Facility: [facility] Address: [address] [place] [address] Performed By: #### 7 9381-0 #### [facility] CLIA [id number] [address] [place] [address] [place] Campylobacter sp DNA.diarrheagenic KATELYNN+probe Ql (Stl) Not detected Normal Not Detected [facility] Comment on above: Order Comment: Speci men Type: STOOL SPECIMEN Ordering Facility: [facility] Address: [address] [place] [address] Performed By: #### 7 9381-0 #### [facility] CLIA [id number] [address] [place] [address] [place] Cryptosporidium sp DNA KATELYNN+probe Ql (Unsp spec) Not detected Normal Not Detected [facility] Comment on above: Order Comment: Speci men Type: STOOL SPECIMEN Ordering Facility: [facility] Address: [address] [place] [address] Performed By: #### 7 9381-0 #### [facility] CLIA [id number] [address] [place] [address] [place] E. coli O157:H7 DNA KATELYNN+probe Ql (Unsp spec) Not applicable Normal Not detected [facility] Comment on above: Order Comment: Speci men Type: STOOL SPECIMEN Ordering Facility: [facility] Address: [address] [place] [address] Performed By: #### 7 9381-0 #### [facility] CLIA [id number] [address] [place] [address] [place] E. coli stx1+stx2 genes KATELYNN+probe Ql (Stl) Not detected Normal Not Detected [facility] Comment on above: Order Comment: Speci men Type: STOOL SPECIMEN Ordering Facility: [facility] Address: [address] [place] [address] Performed By: #### 7 9381-0 #### [facility] CLIA [id number] [address] [place] [address] [place] E. histolytica DNA KATELYNN+probe Ql (Unsp spec) Not detected Normal Not Detected [facility] Comment on above: Order Comment: Speci men Type: STOOL SPECIMEN Ordering Facility: [facility] Address: [address] [place] [address] Performed By: #### 7 9381-0 #### [facility] CLIA [id number] [address] [place] [address] [place] ENTEROAGGREGATIVE E. COLI (EAEC) DNA Not detected Normal Not Detected [facility] Comment on above: Order Comment: Speci men Type: STOOL SPECIMEN Ordering Facility: [facility] Address: [address] [place] [address] Performed By: #### 7 9381-0 #### [facility] CLIA [id number] [address] [place] [address] [place] ENTEROPATHOGENIC E. COLI (EPEC) DNA Not detected Normal Not detected [facility] Comment on above: Order Comment: Speci men Type: STOOL SPECIMEN Ordering Facility: [facility] Address: [address] [place] [address] Performed By: #### 7 9381-0 #### [facility] CLIA [id number] [address] [place] [address] [place] ENTEROTOXIGENIC E. COLI (ETEC) DNA Not detected Normal Not Detected [facility] Comment on above: Order Comment: Speci men Type: STOOL SPECIMEN Ordering Facility: [facility] Address: [address] [place] [address] Performed By: #### 7 9381-0 #### [facility] CLIA [id number] [address] [place] [address] [place] G. lamblia DNA KATELYNN+probe Ql (Unsp spec) Not detected Normal Not Detected [facility] Comment on above: Order Comment: Speci men Type: STOOL SPECIMEN Ordering Facility: [facility] Address: [address] [place] [address] Performed By: #### 7 9381-0 #### [facility] CLIA [id number] [address] [place] [address] [place] NOROVIRUS GI/GII RNA Not detected Normal Not Detected [facility] Comment on above: Order Comment: Speci men Type: STOOL SPECIMEN Ordering Facility: [facility] Address: [address] [place] [address] Performed By: #### 7 9381-0 #### [facility] CLIA [id number] [address] [place] [address] [place] PLESIOMONAS SHIGELLOIDES DNA Not detected Normal Not Detected [facility] Comment on above: Order Comment: Speci men Type: STOOL SPECIMEN Ordering Facility: [facility] Address: [address] [place] [address] Performed By: #### 7 9381-0 #### [facility] CLIA [id number] [address] [place] [address] [place] ROTAVIRUS A RNA Not detected Normal Not Detected [facility] Comment on above: Order Comment: Speci men Type: STOOL SPECIMEN Ordering Facility: [facility] Address: [address] [place] [address] Performed By: #### 7 9381-0 #### [facility] CLIA [id number] [address] [place] [address] [place] Salmonella sp DNA KATELYNN+probe Ql (Unsp spec) Not detected Normal Not Detected [facility] Comment on above: Order Comment: Speci men Type: STOOL SPECIMEN Ordering Facility: [facility] Address: [address] [place] [address] Performed By: #### 7 9381-0 #### [facility] CLIA [id number] [address] [place] [address] [place] SAPOVIRUS (GENOGROUPS I, II, IV, V) RNA Not detected Normal Not Detected [facility] Comment on above: Order Comment: Speci men Type: STOOL SPECIMEN Ordering Facility: [facility] Address: [address] [place] [address] Performed By: #### 7 9381-0 #### [facility] CLIA [id number] [address] [place] [address] [place] Shigella species+EIEC invasion plasmid antigen H ipaH gene KATELYNN+probe Ql (Stl) Not detected Normal Not Detected [facility] Comment on above: Order Comment: Speci men Type: STOOL SPECIMEN Ordering Facility: [facility] Address: [address] [place] [address] Performed By: #### 7 9381-0 #### [facility] CLIA [id number] [address] [place] [address] [place] V. cholerae DNA KATELYNN+probe Ql (Unsp spec) Not detected Normal Not Detected [facility] Comment on above: Order Comment: Speci men Type: STOOL SPECIMEN Ordering Facility: [facility] Address: [address] [place] [address] Performed By: #### 7 9381-0 #### [facility] CLIA [id number] [address] [place] [address] [place] Vibrio sp DNA KATELYNN+probe Nom (Unsp spec) Not detected Normal Not Detected [facility] Comment on above: Order Comment: Speci men Type: STOOL SPECIMEN Ordering Facility: [facility] Address: [address] [place] [address] Performed By: #### 7 9381-0 #### [facility] CLIA [id number] [address] [place] [address] [place] Yersinia sp DNA KATELYNN+probe Nom (Unsp spec) Not detected Normal Not Detected [facility] Comment on above: Order Comment: Speci men Type: STOOL SPECIMEN Ordering Facility: [facility] Address: [address] [place] [address] Performed By: #### 7 9381-0 #### [facility] CLIA [id number] [address] [place] [address] [place] HIV 1+2 Ab IA Qlon 5 HIV 1 and 2 Ab IA.rapid Nom (S/P/Bld) [facility] Comment on above: Test not indicated. HIV 1+2 Ab+HIV1 p24 Ag IA Ql Non-Reactive Nonreactive [facility] HIV immunoassay testing algorithm interpretation (S/P/Bld) [Interp] [facility] Comment on above: No evidence of HIV-1 or HIV-2 infection. Should recent infection be suspected, repeat testing may be considered 2-3 weeks after this draw. [place] Rev. Code 3701.243(E): This information has been [...] release of HIV test results or diagnoses. [facility] HIV 1 and 2 Ab IA.rapid Nom (S/P/Bld) Normal [facility] Comment on above: Order Comment: Speci men Type: BLOOD SPECIMEN Ordering Facility: [facility] Address: [facility] [place] [address] Result Comment: Test not indicated. Performed By: #### 2 243-4 #### [facility] CLIA [id number] [address] [place] [address] [place] HIV 1+2 Ab+HIV1 p24 Ag IA Ql Non-Reactive Normal Nonreactive [facility] Comment on above: Order Comment: Speci men Type: BLOOD SPECIMEN Ordering Facility: [facility] Address: [facility] [address] Performed By: #### 2 243-4 #### [facility] CLIA [id number] [address] [place] [address] [place] HIV immunoassay testing algorithm interpretation (S/P/Bld) [Interp] Normal [facility] Comment on above: Order Comment: Speci men Type: BLOOD SPECIMEN Ordering Facility: [facility] Address: [facility] [address] Result Comment: No e vidence of HIV-1 or HIV-2 infection. Should recent infection be suspected, repeat testing may be considered 2-3 weeks after this draw. [place] Rev. Code 3701.243(E): This information has been disclosed to you from confidential records protected from disclosure by state law. ???You shall make no further disclosure of this information without the specific, written, and informed release of the individual to whom it pertains or as otherwise permitted by state law. A general authorization for the release of medical or other information is not sufficient for the purpose of the release of HIV test results or diagnoses. Performed By: #### 2 243-4 #### [facility] CLIA [id number] [address] [place] [address] [place] IMMUNOGLOBULINS,IGG,IGA,IGMo n 04-14-2024 IgA [Mass/Vol] 338 mg/dL 70 - 400 mg/dL [facility] IgG [Mass/Vol] 1184 mg/dL 700 - 1600 mg/dL [facility] IgM [Mass/Vol] 73 mg/dL 40 - 230 mg/dL [facility] Interpretation and review of laboratory results Normal [facility] IgA [Mass/Vol] 338 mg/dL Normal 70-400 [facility] Comment on above: Order Comment: Speci men Type: BLOOD SPECIMEN Ordering Facility: [facility] Address: [address] [place] [address] Performed By: #### S ERIMM #### [facility] CLIA [id number] [address] [place] [address] [place] IgG [Mass/Vol] 1184 mg/dL Normal 700-1600 [facility] Comment on above: Order Comment: Speci men Type: BLOOD SPECIMEN Ordering Facility: [facility] Address: [address] [place] [address] Performed By: #### S ERIMM #### [facility] CLIA [id number] [address] [place] [address] [place] IgM [Mass/Vol] 73 mg/dL Normal 40-230 [facility] Comment on above: Order Comment: Speci men Type: BLOOD SPECIMEN Ordering Facility: [facility] Address: [address] [place] [address] Performed By: #### S ERIMM #### [facility] CLIA [id number] [address] [place] [address] [place] Immunodeficiency panel FC (B ld)on 04-14-2024 CD3 cells (Bld) [#/Vol] 2448 cells/uL High [phone] [facility] Comment on above: Order Comment: Speci men Type: BLOOD SPECIMEN Ordering Facility: [facility] Address: [address] [place] [address] Performed By: #### 4 5268-0 #### [facility] CLIA [id number] [address] [place] [address] [place] CD3 cells/100 cells (Bld) 81 % Normal 60-89 [facility] Comment on above: Order Comment: Speci men Type: BLOOD SPECIMEN Ordering Facility: [facility] Address: [address] [place] [address] Performed By: #### 4 5268-0 #### [facility] CLIA [id number] [address] [place] [address] [place] CD3+CD4+ (T4 helper) cells (Bld) [#/Vol] 1757 cells/uL High 533-7244 [facility] Comment on above: Order Comment: Speci men Type: BLOOD SPECIMEN Ordering Facility: [facility] Address: [address] [place] [address] Performed By: #### 4 5268-0 #### [facility] [place] [id number] [address] [place] [address] [place] CD3+CD4+ (T4 helper) cells/100 cells (Bld) 58 % Normal 34-61 [facility] Comment on above: Order Comment: Speci men Type: BLOOD SPECIMEN Ordering Facility: [facility] Address: [address] [place] [address] Performed By: #### 4 5268-0 #### [facility] CLIA [id number] [address] [place] [address] [place] CD3+CD4+ (T4 helper) cells/CD3+CD8+ (T8 suppressor cells) cells (Bld) [# ratio] 2.59 % Normal 1.10-3.25 [facility] Comment on above: Order Comment: Speci men Type: BLOOD SPECIMEN Ordering Facility: [facility] Address: [address] [place] [address] Performed By: #### 4 5268-0 #### [facility] CLIA [id number] [address] [place] [address] [place] CD3+CD8+ (T8 suppressor cells) cells (Bld) [#/Vol] 677 cells/uL Normal 175-958 [facility] Comment on above: Order Comment: Speci men Type: BLOOD SPECIMEN Ordering Facility: [facility] Address: [address] [place] [address] Performed By: #### 4 5268-0 #### [facility] CLIA [id number] [address] [place] [address] [place] CD3+CD8+ (T8 suppressor cells) cells/100 cells (Bld) 22 % Normal 10-41 [facility] Comment on above: Order Comment: Speci men Type: BLOOD SPECIMEN Ordering Facility: [facility] Address: [address] [place] [address] Performed By: #### 4 5268-0 #### [facility] CLIA [id number] [address] [place] [address] [place] CD3-CD16+CD56+ (Natural killer) cells (Bld) [#/Vol] 301 cells/uL Normal 102-565 [facility] Comment on above: Order Comment: Speci men Type: BLOOD SPECIMEN Ordering Facility: [facility] Address: [address] [place] [address] Performed By: #### 4 5268-0 #### [facility] CLIA [id number] [address] [place] [address] [place] CD3-CD16+CD56+ (Natural killer) cells/100 cells (Bld) 10 % Normal 5-25 [facility] Comment on above: Order Comment: Speci men Type: BLOOD SPECIMEN Ordering Facility: [facility] Address: [address] [place] [address] Performed By: #### 4 5268-0 #### [facility] CLIA [id number] [address] [place] [address] [place] CD3-CD19+ cells (Bld) [#/Vol] 256 cells/uL Normal 75-660 [facility] Comment on above: Order Comment: Speci men Type: BLOOD SPECIMEN Ordering Facility: [facility] Address: [address] [place] [address] Performed By: #### 4 5268-0 #### [facility] CLIA [id number] [address] [place] [address] [place] CD3-CD19+ cells/100 cells (Bld) 8 % Normal 5-22 [facility] Comment on above: Order Comment: Speci men Type: BLOOD SPECIMEN Ordering Facility: [facility] Address: [address] [place] [address] Performed By: #### 4 5268-0 #### [facility] CLIA [id number] [address] [place] [address] [place] Reagin and Treponema pallidu m IgG and IgM [Interp]on 04-14-2024 T. pallidum IgG+IgM IA Ql (S) Non-Reactive Nonreactive [facility] T. pallidum IgG+IgM IA Ql (S) Non-Reactive Normal Nonreactive [facility] Comment on above: Order Comment: Speci men Type: BLOOD SPECIMEN Ordering Facility: [facility] Address: [address] [place] [address] Performed By: #### 2 243-4 #### [facility] CLIA [id number] [address] [place] [address] [place] Reagin+T pallidum IgG+IgM Se rPl-Impon 04-14-2024 Reagin and Treponema pallidum IgG and IgM [Interp] Cannot exclude recent Treponemal infection if specimen collected within 7-10 days after appearance of suspect lesions or 2-3 weeks after an exposure. Clinical correlation is required. Normal [facility] Comment on above: Order Comment: Speci men Type: BLOOD SPECIMEN Ordering Facility: [facility] Address: [address] [place] [address] Performed By: #### 2 243-4 #### [facility] CLIA [id number] [address] [place] [address] [place] [address] [place] SYPHILIS TREPONEMAL W/REFLEX on 04-14-2024 Reagin and Treponema pallidum IgG and IgM [Interp] Cannot exclude recent Treponemal infection if specimen collected within 7-10 days after appearance of suspect lesions or 2-3 weeks after an exposure. Clinical correlation is required. [facility] Krishna 04-11-2024 CNPN Telephone (OTOLLN) -------- RAHEEM COHN ([id number]) 1975 M Date Time Provider Department 04/11/24 CARLOS LEBRON During your visit today, we recorded the following information about you: Sin Arriaga 04/11/2024 12:08 PM Signed Raheem is calling Carlos Lebron MD today. Called in to see if he could still be seen if he was 20 minutes late for his appointment. Advised patient that provider was not going to be there for his appointment today. Advised a message was left regarding this. Patient states he did not receive any message that this was cancelled. Confirmed that we did have correct phone number. Please call patient back to reschedule. Patient has been identified by name and birthdate. Duration of symptoms: N/A Person calling: self Call patient at: on cell There are no phone numbers on file. Was an appointment scheduled: No Closing statement: Results or non-symptom based questions: Thank you for calling [facility], your call will be returned within the next business day. Nesha Godinez 04/11/2024 12:24 PM Signed called AND SPOKE WITH PATIENT, RESCHEDULED TO 04/[address] BONILLA AT [facility] Allergies As of Date: 04/11/2024 Noted Allergy Reaction PENICILLINS 06/03/2007 10 - Anaphylaxis Date Reviewed: 04/07/2024 Reviewed by: Edwar, Latiegrea, OCCA - Fully Assessed Prescriptions as of 08/09/2024 - tiZANidine (ZANAFLEX) 4 mg tablet Take 1 tablet by mouth as needed (for facial pain/jaw pain/muscle pulling). - DULoxetine (CYMBALTA) 30 mg capsule Take 1 capsule by mouth once daily for 7 days, THEN 2 capsules once daily. - sodium chloride (SALINE NASAL) 0.65 % nasal spray Use 3 sprays in the nose every 2 hours while awake. - pregabalin (LYRICA) 75 mg capsule Take 75 mg by mouth. - cyanocobalamin, vitamin B-12, (B-12 COMPLIANCE INJECTION) by INJECTION(UNSPECIFIED PARENTERAL ROUTES) route once every month. - clonazePAM (KLONOPIN) 1 mg tablet Take 1 mg by mouth two times a day as needed for anxiety. - ubidecarenone Q-10 (CO Q-10) 10 mg cap Take 10 mg by mouth three times a day. - triamcinolone acetonide (KENALOG) 0.1 % ointment Apply thin layer to affected areas twice daily M-F. Take weekends off. Do not apply to face. 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 He updated diagnosis of E.Coli infection. Also saw pain management and oral surgery at [facility] and [facility], and has a pending visit with ID this coming week. He received joint injections by pain management. Currently on bactrm, gabapentin, and clonazepam. He complains on recurring soreness on cheeks caused by dentures - getting new dentures done out of [facility]. 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 2 cervicalgia M79.12 myalgia neck G50.1 atypical facial pain Location - Right ear, Right TMJ, and top of the head. We have the medical CTs at [facility] Appearance - Fatigued Chronology - Months Precipitating - Function Quality - Sharp Intensity - 6 /10 - responded to interventions above Duration - 5 months Frequency - Daily, several times during function Ameliorating - None reported Aggravating - Function Associated symptoms - Migraines Imaging panoramic film: repeated today at no charge, suspect fractured right stylohyoid process. CT: of neck without contrast Ordered Last visit: 01.14.2024 Medical history: Reviewed and reconciled with [employer]. Changes in medical history since last visit: NONE Meds: Reviewed and reconciled with [employer]. Changes in medical history since last visit: NONE Allergies: Reviewed and reconciled with Epic. Changes in medical history since last visit: NONE Family history: Reviewed and reconciled with Epic. Changes in medical history since last visit: NONE Social history: Reviewed and reconciled with Epic. Changes in medical history since last visit: NONE Social - Habits - ROS: - CONSTITUTIONAL: Denies unintentional weight loss, fever and chills. - HEENT: Denies changes in vision and hearing. - RESPIRATORY: Denies SOB and cough. - CV: Denies palpitations and CP. - GI: Denies abdominal pain, nausea, vomiting and diarrhea. - : Denies dysuria and urinary frequency. - MSK: Denies myalgia and joint pain. - SKIN: Denies rash and pruritus. - NEUROLOGICAL: Denies headache and syncope. - PSYCHIATRIC: Denies recent changes in mood. PHYSICAL EXAM: GENERAL: Alert and oriented x 3. No acute distress. Well-nourished, well-developed. CONSTITUTIONAL: AVSS VOICE: no stridor RESPIRATION: Breathing comfortably, no stridor. CARDIOVASCULAR: No clubbing/cyanosis/edema in hands. EYES: Extraocular movements intact, sclera normal, no scleral icterus, no lesions noted. NEURO: Detailed below. HEAD AND FACE: Symmetric facial features, no masses or lesions, sinuses nontender to palpation. SALIVARY GLANDS: Parotid and submandibular glands normal bilaterally. EARS: Normal external ears, external auditory canals, normal hearing to whispered voice. NOSE: External nose midline, anterior nasal cavity is normal with limited visualization to the anterior aspect of the interior turbinates. No lesions noted. ORAL CAVITY/OROPHARYNX/LIPS: Moist mucous membranes, no lesions noted. NECK/LYMPH NODES: No lymphadenopathy, no thyroid masses. Trachea palpably midline SKIN: Face and neck skin without scars, bruises, or injury PSYCH: Alert and oriented with appropriate mood and affect DETAILED EXAM: Cranial Nerves - II through XII grossly intact Detailed CN V: sensory: R: significant pain radiating across palate L:Normal V1-V3 Motor: R: Normal L: Normal Two point discrimination: equal, however very painful on right Directionality: Not done Detailed CN VII: motor R: Normal L: Normal Balance/Equilibrium - Finger to nose normal response. Romberg: not performed Patient has radiating and shooting pain upon touching upper lip to the right of the midline and chin, both radiating to the head, neck, and palate. NECK: No LAD. IOE: tongue scalloping present cheek ridging minor , wear Occlusion: PATIENT IS EDENTULOUS Midline: Coincident. Deviated to the mm Deviation/deflection - None ROM - DAVY: 37 mm passive: mm active: mm R lateral: mm L lateral: mm protrusion: mm Joint palpation: R TMJ dorsal:0/5 lateral:0 intrauaricular: 0 L TMJ dorsal:0/5 lateral:0 intraauricular:0 Joint sounds - R TMJ: None L TMJ: None Loading: R TMJ: ipsilateral pain: - contralateral pain:- L TMJ: ipsilateral pain: - contralateral pain:- Occlusion: stable and reproducible Myofascial Exam - Deep masseter: R:2 /5 L:2 Superficial masseter R:1 L:0 Anterior temp R:4 L:1 Medial/post temp R:0 L:0 Frontal R:5 L:2 Medial pterygoid R:3 L:0 Lateral pterygoid R:5 L:0 Digastric Ant R:0 L:0 Digastric post: R:0 L:0 Temp tendon R:0 L:0 Occipital R:5 L:0 Splenius R:0 L:0 Scalenes R:5 L:0 Trapezius R:0 L:0 Suprascapular R:5 L:0 SCM R:0 L:0 Stylohyoid R:5 L:0 Presence of trigger areas: to the right of midline of upper lip and chin Presence of ANS signs: None Impression: Findings today are similar to previous visit. He is concerned about pain on midline of palate. No (more content not included)... Normal [employer] Telephone Encounteron 2024 [employer] Authentication Interface Message Text Pt calling needing a follow up appointment, pt has had something snap inside of his mouth and if he does not keep a denture in his mouth the joints feel like they are crumbling. Currently on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 tissues: The soft tissue planes are maintained throughout. No evidence of a soft tissue mass in the neck or superior mediastinum. No significant lymphadenopathy is seen. Spine: Alignment is normal. Mild degenerative changes are present. Lung apices: There is biparietal bilateral paraseptal emphysema. The visualized lung apices are clear. CT ARTERIOGRAM: Extracranial Circulation: Aortic Arch: There is a normal branching pattern from the aortic arch. There is no significant stenosis in the proximal brachiocephalic vessels. Carotid Stenosis: Right Common: No significant stenosis. Right Internal Carotid Plaque: No significant plaque formation. Right Internal Carotid Stenosis (% by NASCET Criteria): 0 Left Common: No significant stenosis. Left Internal Carotid Plaque: No significant plaque formation. Left Internal Carotid Stenosis (% by NASCET Criteria): 0 Cervical Vertebral Arteries: Patency: Bilateral Dominance: Slightly right Intracranial Circulation: No intracranial arterial stenosis, aneurysm, or other lesion is identified. An anterior communicating artery is present. The bilateral posterior communicating arteries are within normal limits. The intracranial internal carotid arteries and the proximal anterior, middle and posterior cerebral arteries appear normal. The left vertebral artery is slightly dominant. The intracranial vertebral arteries and the basilar artery appear normal. The visualized predominantly proximal segments of the bilateral PICAs, AICAs and SCAs appear normal. The visualized dural venous sinuses are patent. Lead Software Qa Engineer (topogram) images: No significant findings. IMPRESSION: No evidence of hemodynamically significant stenosis, intraluminal filling defect, abrupt vessel occlusion, aneurysm or vascular malformation in the intracranial and extracranial arterial vasculature. Arterial blood flow was measured to detect acute large vessel occlusion by computer aided detection software: Not Performed. Concordance between software and imaging review: Not Applicable. Transcribe Date/Time: Mar 29 2024 10:11A Dictated by: RUBY BRAXTON MD This examination was interpreted and the report reviewed and electronically signed by: RUBY BRAXTON MD on Mar 29 2024 10:35AM EST Thank you for allowing us to participate in the care of your patient. Should there be any questions regarding this interpretation, please call [phone]. If you are unable to reach us at the number above, please feel free to contact [facility] at [phone]. [id number] Normal [facility] CTA Head Arteries W contrast Joe 03-29-2024 * * *Final Report* * * DATE OF EXAM: Mar 29 2024 9:52AM [facility] 0022 - CTA HEAD W IVCON / PROCEDURE REASON: Localized swelling, mass or lump of neck * * * * Physician Interpretation * * * * RESULT: EXAMINATION: CTA NECK W IVCON, CTA HEAD W IVCON HISTORY: Dysphagia TECHNIQUE: Spiral high resolution axial images were obtained through the head, neck and superior mediastinum following bolus administration of intravenous contrast for CT angiography. 3D maximum intensity projection images were created, reviewed and archived . MQ: CTAHN_4 Contrast: 80 mL Omnipaque [address] Radiation dose: Integrated Dose-Length Product (DLP) for this visit = 1355 mGy*cm. CT Dose Reduction Employed: Automated exposure control (AEC) COMPARISON: None. RESULT: BRAIN: Evaluation of the individual slices of the CTA demonstrates no evidence of an acute stroke. ASPECT Score = 10 Hemorrhage: No clear evidence of acute intracranial hemorrhage within the constraints of this contrast enhanced acquisition. ECASS hemorrhagic transformation score: Not Applicable NECK: Soft tissues: The soft tissue planes are maintained throughout. No evidence of a soft tissue mass in the neck or superior mediastinum. No significant lymphadenopathy is seen. Spine: Alignment is normal. Mild degenerative changes are present. Lung apices: There is biparietal bilateral paraseptal emphysema. The visualized lung apices are clear. CT ARTERIOGRAM: Extracranial Circulation: Aortic Arch: There is a normal branching pattern from the aortic arch. There is no significant stenosis in the proximal brachiocephalic vessels. Carotid Stenosis: Right Common: No significant stenosis. Right Internal Carotid Plaque: No significant plaque formation. Right Internal Carotid Stenosis (% by NASCET Criteria): 0 Left Common: No significant stenosis. Left Internal Carotid Plaque: No significant plaque formation. Left Internal Carotid Stenosis (% by NASCET Criteria): 0 Cervical Vertebral Arteries: Patency: Bilateral Dominance: Slightly right Intracranial Circulation: No intracranial arterial stenosis, aneurysm, or other lesion is identified. An anterior communicating artery is present. The bilateral posterior communicating arteries are within normal limits. The intracranial internal carotid arteries and the proximal anterior, middle and posterior cerebral arteries appear normal. The left vertebral artery is slightly dominant. The intracranial vertebral arteries and the basilar artery appear normal. The visualized predominantly proximal segments of the bilateral PICAs, AICAs and SCAs appear normal. The visualized dural venous sinuses are patent. Lead Software Qa Engineer (topogram) images: No significant findings. DIVISION OF RADIOLOGY Provider, [facility] - 03/29/2024 * * *Final Report* * * DATE OF EXAM: Mar 29 2024 9:52AM [facility] 0022 - CTA HEAD W IVCON / PROCEDURE REASON: Localized swelling, mass or lump of neck * * * * Physician Interpretation * * * * RESULT: EXAMINATION: CTA NECK W IVCON, CTA HEAD W IVCON HISTORY: Dysphagia TECHNIQUE: Spiral high resolution axial images were obtained through the head, neck and superior mediastinum following bolus administration of intravenous contrast for CT angiography. 3D maximum intensity projection images were created, reviewed and archived . MQ: CTAHN_4 Contrast: 80 mL Omnipaque [address] Radiation dose: Integrated Dose-Length Product (DLP) for this visit = 1355 mGy*cm. CT Dose Reduction Employed: Automated exposure control (AEC) COMPARISON: None. RESULT: BRAIN: Evaluation of the individual slices of the CTA demonstrates no evidence of an acute stroke. ASPECT Score = 10 Hemorrhage: No clear evidence of acute intracranial hemorrhage within the constraints of this contrast enhanced acquisition. ECASS hemorrhagic transformation score: Not Applicable NECK: Soft tissues: The soft tissue planes are maintained throughout. No evidence of a soft tissue mass in the neck or superior mediastinum. No significant lymphadenopathy is seen. Spine: Alignment is normal. Mild degenerative changes are present. Lung apices: There is biparietal bilateral paraseptal emphysema. The visualized lung apices are clear. CT ARTERIOGRAM: Extracranial Circulation: Aortic Arch: There is a normal branching pattern from the aortic arch. There is no significant stenosis in the proximal brachiocephalic vessels. Carotid Stenosis: Right Common: No significant stenosis. Right Internal Carotid Plaque: No significant plaque formation. Right Internal Carotid Stenosis (% by NASCET Criteria): 0 Left Common: No significant stenosis. Left Internal Carotid Plaque: No significant plaque formation. Left Internal Carotid Stenosis (% by NASCET Criteria): 0 Cervical Vertebral Arteries: Patency: Bilateral Dominance: Slightly right Intracranial Circulation: No intracranial arterial stenosis, aneurysm, or other lesion is identified. An anterior communicating artery is present. The bilateral posterior communicating arteries are within normal limits. The intracranial internal carotid arteries and the proximal anterior, middle and posterior cerebral arteries appear normal. The left vertebral artery is slightly dominant. The intracranial vertebral arteries and the basilar artery appear normal. The visualized predominantly proximal segments of the bilateral PICAs, AICAs and SCAs appear normal. The visualized dural venous sinuses are patent. Lead Software Qa Engineer (topogram) images: No significant findings. IMPRESSION IMPRESSION: No evidence of hemodynamically significant stenosis, intraluminal filling defect, abrupt vessel occlusion, aneurysm or vascular malformation in the intracranial and extracranial arterial vasculature. Arterial blood flow was measured to detect acute large vessel occlusion by computer aided detection software: Not Performed. Concordance between software and imaging review: Not Applicable. Transcribe Date/Time: Mar 29 2024 10:11A Dictated by: RUBY BRAXTON MD This examination was interpreted and the report reviewed and electronically signed by: RUBY BRAXTON MD on Mar 29 2024 10:35AM EST Thank you for allowing us to participate in the care of your patient. Should there be any questions regarding this interpretation, please call [phone]. If you are unable to reach us at the number above, please feel free to contact [facility] at [phone]. [facility] CTA NECK W IVCONon CTA NECK W IVCON * * *Final Report* * * DATE OF EXAM: Mar 29 2024 9:52AM [facility] 0024 - CTA NECK W IVCON / PROCEDURE REASON: Cervicalgia * * * * Physician Interpretation * * * * RESULT: EXAMINATION: CTA NECK W IVCON, CTA HEAD W IVCON HISTORY: Dysphagia TECHNIQUE: Spiral high resolution axial images were obtained through the head, neck and superior mediastinum following bolus administration of intravenous contrast for CT angiography. 3D maximum intensity projection images were created, reviewed and archived . MQ: CTAHN_4 Contrast: 80 mL Omnipaque [address] Radiation dose: Integrated Dose-Length Product (DLP) for this visit = 1355 mGy*cm. CT Dose Reduction Employed: Automated exposure control (AEC) COMPARISON: None. RESULT: BRAIN: Evaluation of the individual slices of the CTA demonstrates no evidence of an acute stroke. ASPECT Score = 10 Hemorrhage: No clear evidence of acute intracranial hemorrhage within the constraints of this contrast enhanced acquisition. ECASS hemorrhagic transformation score: Not Applicable NECK: Soft tissues: The soft tissue planes are maintained throughout. No evidence of a soft tissue mass in the neck or superior mediastinum. No significant lymphadenopathy is seen. Spine: Alignment is normal. Mild degenerative changes are present. Lung apices: There is biparietal bilateral paraseptal emphysema. The visualized lung apices are clear. CT ARTERIOGRAM: Extracranial Circulation: Aortic Arch: There is a normal branching pattern from the aortic arch. There is no significant stenosis in the proximal brachiocephalic vessels. Carotid Stenosis: Right Common: No significant stenosis. Right Internal Carotid Plaque: No significant plaque formation. Right Internal Carotid Stenosis (% by NASCET Criteria): 0 Left Common: No significant stenosis. Left Internal Carotid Plaque: No significant plaque formation. Left Internal Carotid Stenosis (% by NASCET Criteria): 0 Cervical Vertebral Arteries: Patency: Bilateral Dominance: Slightly right Intracranial Circulation: No intracranial arterial stenosis, aneurysm, or other lesion is identified. An anterior communicating artery is present. The bilateral posterior communicating arteries are within normal limits. The intracranial internal carotid arteries and the proximal anterior, middle and posterior cerebral arteries appear normal. The left vertebral artery is slightly dominant. The intracranial vertebral arteries and the basilar artery appear normal. The visualized predominantly proximal segments of the bilateral PICAs, AICAs and SCAs appear normal. The visualized dural venous sinuses are patent. Lead Software Qa Engineer (topogram) images: No significant findings. IMPRESSION: No evidence of hemodynamically significant stenosis, intraluminal filling defect, abrupt vessel occlusion, aneurysm or vascular malformation in the intracranial and extracranial arterial vasculature. Arterial blood flow was measured to detect acute large vessel occlusion by computer aided detection software: Not Performed. Concordance between software and imaging review: Not Applicable. Transcribe Date/Time: Mar 29 2024 10:11A Dictated by: RUBY BRAXTON MD This examination was interpreted and the report reviewed and electronically signed by: RUBY BRAXTON MD on Mar 29 2024 10:35AM EST Thank you for allowing us to participate in the care of your patient. Should there be any questions regarding this interpretation, please call [phone]. If you are unable to reach us at the number above, please feel free to contact [facility] at [phone]. [id number] Normal [facility] Fungus Spec Culton Fungus identified Cx Nom (Unsp spec) CULTURE, FUNGAL: No Fungus isolated after 10 days Normal [facility] Comment on above: Performed By: #### 5 80-1 ####[facility] LABCLIA [id number] [address] [place] No Panel Informationon 03-29 IMPRESSION: No evidence of hemodynamically significant stenosis, intraluminal filling defect, abrupt vessel occlusion, aneurysm or vascular malformation in the intracranial and extracranial arterial vasculature. Arterial blood flow was measured to detect acute large vessel occlusion by computer aided detection software: Not Performed. Concordance between software and imaging review: Not Applicable. Transcribe Date/Time: Mar 29 2024 10:11A Dictated by: RUBY BRAXTON MD This examination was interpreted and the report reviewed and electronically signed by: RUBY BRAXTON MD on Mar 29 2024 10:35AM EST Thank you for allowing us to participate in the care of your patient. Should there be any questions regarding this interpretation, please call [phone]. If you are unable to reach us at the number above, please feel free to contact [facility] at [phone]. 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 Pt referred to OMFS from Oral Medicine to rule out any indication for surgical treatment for facial pain. PAST MEDICAL HISTORY: No past medical history on file. 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] Neck pain [M54.2] Onychodystrophy [L60.3] Onychomycosis of toenail [B35.1] Opioid dependence in remission (HCC) [F11.21] Otalgia of both ears [H92.03] Pain in left foot [M79.672] Polysubstance dependence including opioid type drug, episodic abuse (HCC) [F11.20, F19.20] Insomnia, unspecified [G47.00] Rectal hemorrhage [K62.5] 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 Negative unless otherwise stated in HPI. MEDICATIONS: Current Outpatient Medications Medication Sig Dispense Refill mupirocin (BACTROBAN) 2 % ointment APPLY TO SKIN INFECTION TWICE DAILY Multiple Vitamin (Daily Value Multivitamin) TABS Take by mouth. Multiple Vitamin (Daily Value Multivitamin) TABS Take by mouth. LORazepam (ATIVAN) 2 MG tablet TAKE 1 TABLET BY MOUTH A ONE TIME DOSE TAKE BEFORE MRI ketorolac (TORADOL) 10 MG tablet TAKE 1 TABLET BY MOUTH THREE TIMES DAILY NEEDED FOR PAIN FOR 5 DAYS ketoconazole (NIZORAL) 2 % shampoo Apply 1 Application topically. indomethacin (INDOCIN) 25 MG capsule TAKE 1 CAPSULE BY MOUTH IN THE MORNING AND 1 AT NOON AND 1 IN THE EVENING WITH MEALS hydrOXYzine pamoate (VISTARIL) 50 MG capsule Take 50 mg by mouth 3 times daily as needed. gabapentin (NEURONTIN) 300 MG capsule fluticasone (FLONASE) 50 mcg/act nasal inhaler Use in each nostril daily. Ferrous Gluconate ([employer] Iron) 240 (27 Fe) MG TABS Take by mouth. doxycycline (VIBRAMYCIN) 100 MG capsule cyclobenzaprine (FLEXERIL) 10 MG tablet TAKE 1 TABLET BY MOUTH TWICE DAILY NEEDED FOR MUSCLE SPASM Coenzyme Q10 150 MG CAPS Take by mouth. Coenzyme Q10 (CoQ-10) 150 MG CAPS Take by mouth. clonazePAM (KlonoPIN) 0.5 MG tablet TAKE 2 TABLETS BY MOUTH TWICE DAILY NEEDED FOR ANXIETY clotrimazole (MYCELEX) 10 MG roxana DISSOLVE 1 TABLET BY MOUTH THREE TIMES DAILY FOR 10 DAYS clonazePAM (KlonoPIN) 0.5 MG tablet Take 1 mg by mouth 2 times daily as needed. chlorproMAZINE (THORAZINE) 50 MG tablet Take 100 mg by mouth once. Calcium Magnesium Zinc 333-133-5 MG TABS Take by mouth. atomoxetine (STRATTERA) 40 MG capsule Take 40 mg by mouth daily. ALPRAZolam (XANAX) 1 MG tablet ALPRAZolam (XANAX) 1 mg tablet Indications: Anxiety Take 1 tab 30 minutes prior to MRI. May repeat once if needed. 2 tablet 12/16/2023 Active Vitamin A 2400 MCG (8000 UT) CAPS Take by mouth. varenicline (CHANTIX STARTER) 0.5 MG X 11 AND 1 MG X 42 tablet pack Take by mouth. valACYclovir (VALTREX) 500 MG tablet Take 500 mg by mouth daily. traMADol (ULTRAM) 50 MG tablet Take 50 mg by mouth every 6 hours as needed. for pain, for up to 2 days terbinafine (LAMISIL) 1 % cream daily. sulfamethoxazole-trimeth oprim 800-160 MG (BACTRIM DS) 800-160 MG per tablet Take by mouth every 12 (twelve) hours. sofosbuvir-velpatasvir (EPCLUSA) 400-100 MG TABS tablet Take by mouth. sodium chloride (OCEAN) 0.65 % nasal spray Use 2 Sprays in each nostril. QUEtiapine (SEROQUEL) 100 MG tablet Take 200 mg by mouth at bedtime. predniSONE (DELTASONE) 20 MG tablet TAKE 3 TABLETS BY MOUTH ONCE DAILY FOR 3 DAYS, THEN 2 TABLETS BY MOUTH ONCE DAILY FOR 3 DAYS, THEN 1 TABLET BY MOUTH ONCE DAILY FOR 3 DAYS, THEN 1/2 (ONE-HALF) TABLET BY MOUTH ONCE DAILY FOR 4 DAYS. omeprazole (PRILOSEC) 40 MG capsule Take 40 mg by mouth daily. nystatin (MYCOSTATIN) 638082 UNIT/ML oral suspension Take 5 mL by mouth every 6 (six) hours. nystatin (MYCOSTATIN) 294033 UNIT/ML oral suspension Take 500,000 Units by mouth 4 times daily. niacin (VITAMIN B-3) 100 MG tablet T (more content not included)... 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 Pt said connecting tissue is falling apart and cheek is split. Unable to swallow on that side. Pt said he must use sugar free candy, Gatorade or water to produce enough moisture to swallow. Please call pt aline at Telephone Information: Thanks! Normal [employer] [id number] 01-30-2024 [id number] HNO ID: [id number] Author: TIEN HEREDIA PT Service: ? Author Type: Physical Therapist Type: [id number] Filed: 01/30/2024 18:45 Note Text: [facility] Physical Therapy Plan of Care Certification Patient Name: Raheem Cohn : 1975 [facility] #: [id number] Date: 01/28/2024 To: Kory Kirkland, APR* From Therapist: Tien Heredia PT RE: Patient Certification/ Recertification Your review, approval and electronic signature are required in order to comply with Payor: [employer] / Plan: [employer] [facility] / Product Type: Medicaid / regulations. The identified Physical Therapy PLAN OF CARE for the patient is as follows: M26.609 TMJ dysfunction (primary encounter diagnosis) R51.9 Face pain G44.021 Intractable chronic cluster headache PLAN OF CARE: Assessment: Raheem Cohn presents with chief complaint of fascial pain that interferes with (talking, eating, moving head, opening mouth) . The patient presents with impairments in ADL's, flexibility, joint mobility, range of motion, strength, symptom management, and tissue tenderness. PROMIS? (Patient-Reported Outcomes Measurement Information System) scores were reviewed and identified as a rehabilitation concern. Prognosis for therapy is Fair due to: clinical presentation . The patient will benefit from skilled therapy services to meet the goals established for this plan of care as noted below. Based on the patient's history, the components of the examination, the patient presentation, and required decision-making as described in this evaluation, this patient's evaluation falls into the moderate category of complexity as described by AMA CPT codes. Patient can benefit from skilled care to address patient's impairments and improve their function. Goals for Episode of Care: established 01/28/24 [place] in home exercise program. Patient will decrease pain to 3/10 with functional activities to allow patient to improve activities of daily living . Patient will demonstrate increase in cervical strength to good during manual muscle testing in order to improve function for prior functional tasks. Patient will increase flexibility of bilateral upper trapezius, levator scapula and left sternocleidomastoid and scalene muscles to WNL to decrease pain. Patient to report symptom free with talking and chewing. Patient Goals: eliminate fascial pain Time Frame for Goals and Treatment : 04/09/24 Planned Interventions, Frequency, and Duration: Current Frequency: 1x every other week Duration: 10 weeks Total Number of Visits Planned: 5 Planned Treatment Interventions: Therapeutic exercise (28836), Neuromuscular re-education (77725), Therapeutic activities (07530), Manual therapy (09164), Self-fdc management (03333), Aquatic PT (48438), Patient/Family/Caregiver Education, Body Mechanics Training, Functional training PLAN FOR NEXT VISIT: progression of manual therapy, assess sessativity to trigeminal nerve Patient demonstrates good understanding of plan of care and treatment. The above goals and plan of care were discussed and agreed upon by patient/family. For further details regarding this patient refer to the Physical Therapy electronically documented visit dated 01/28/2024. Provider Attestation I have reviewed the treatment plan for Raheem Crowley Escobar, [facility]# [id number] for the period of 01/28/24 -- 04/09/23, established on 01/28/2024. Signature certifies the need for therapy services. Normal [facility] CNTHERAPYon 01-28-2024 CNTHERAPY OT/PT/Speech Visit (LOPTRM) -------- RAHEEM COHN ([id number]) 1975 M Date Time Provider Department 01/28/24 2:30 PM TIEN HEREDIA LOPTRM Date Time Provider Department Center 01/28/2024 2:30 PM [id number], MARK HAL Aneta Dontahandy Reason for Visit: Physical Therapy [503] Patient Education [91] PT Eval [747] PT Discharge [752] Primary Visit Diagnosis:TMJ dysfunction [M26.609] Other Visit Diagnoses:Face pain [R51.9] Intractable chronic cluster headache [G44.021] Allergies As of Date: 01/28/2024 Noted Allergy Reaction PENICILLINS 06/03/2007 10 - Anaphylaxis Date Reviewed: 01/26/2024 Reviewed by: Debi Rust MA - Fully Assessed Prescriptions as of 04/13/2024 - clonazePAM (KLONOPIN) 0.5 mg tablet Take 1 mg by mouth. - gabapentin (NEURONTIN) 300 mg capsule Take 300 mg by mouth three times a day. - vit B complex no.12/niacin,B3, (VITAMIN B COMPLEX NO.12-NIACIN ORAL) Take by mouth. - chlorproMAZINE (THORAZINE) 50 mg tablet Take 2 tablets by mouth one time only for 1 dose. Take 1 hour prior to MRI. - terbinafine HCl (LAMISIL) 250 mg tablet Take 250 mg by mouth once daily. - QUEtiapine (SEROQUEL) 100 mg tablet Take 200 mg by mouth daily at bedtime. - nortriptyline (PAMELOR) 25 mg capsule Take 1 capsule by mouth two times a day. - omeprazole (PRILOSEC) 40 mg capsule Take 40 mg by mouth once daily. Normal [facility] CNOVon 01-26-2024 CNOV Office Visit (PLASAV ) -------- RAHEEM COHN ([id number]) 1975 M Date Time Provider Department 01/26/24 10:45 AM MACKENZIE STATON During your visit today, we recorded the following information about you: Mackenzie Staton MD 01/26/2024 12:39 PM Signed This patient is presenting today with complaints of inability to swallow, having not enough salivary secretions in his oral cavity, left-sided facial pain and discomfort as well as feeling that the skin of his face is falling off. He attributes these symptoms and complaints to previous facial trauma according to his report. I did explain to the patient that these symptoms and complaints are not something I treat or take care of or manage. Patient was advised to follow with oral surgeon or ENT surgeon for evaluation and treatment. Mackenzie STATON MD Plastic Surgery January 26, 2024 Mackenzie Staton MD 02/04/2024 6:42 PM Signed Addended by: MACKENZIE STATON on: 02/04/2024 06:42 PM Modules accepted: Orders Referring Provider: SELF [200] Allergies As of Date: 01/26/2024 Noted Allergy Reaction PENICILLINS 06/03/2007 10 - Anaphylaxis Date Reviewed: 01/26/2024 Reviewed by: Debi Rust MA - Fully Assessed Reason for Visit: Consult [173] Cmt: Facial pain - 2 years ago left side Primary Visit Diagnosis:Oropharyngeal dysphagia [R13.12] Other Visit Diagnosis:Left facial pain [R51.9] Order(s):CONSULT TO ENT [9008] Order #: [id number]: 1 FUTURE Prescriptions as of 02/04/2024 - chlorproMAZINE (THORAZINE) 50 mg tablet Take 2 tablets by mouth one time only for 1 dose. Take 1 hour prior to MRI. - terbinafine HCl (LAMISIL) 250 mg tablet Take 250 mg by mouth once daily. - QUEtiapine (SEROQUEL) 100 mg tablet Take 200 mg by mouth daily at bedtime. - nortriptyline (PAMELOR) 25 mg capsule Take 1 capsule by mouth two times a day. - omeprazole (PRILOSEC) 40 mg capsule Take 40 mg by mouth once daily. Problem List As Of Date 01/26/2024 Noted Resolved Anxiety state, unspecified [F41.1] Insomnia, unspecified [G47.00] Amphetamine and other psychostimulant dependenc*06/03/2007 Hepatitis C [B19.20] 05/13/2012 Lumbar disc herniation [M51.26] 05/13/2012 Lumbago [M54.50] 05/13/2012 Spondylolisthesis, grade 1 [M43.10] 05/13/2012 DDD (degenerative disc disease), lumbar [M51.36*05/13/2012 Polysubstance dependence including opioid type *05/13/2012 Weight loss [R63.4] 09/25/2013 Fatigue [R53.83] 09/25/2013 Level of Service: UNLISTED EVALUATION AND MANAGEMENT SERVICE [54626] Encounter Status:Closed by MACKENZIE STATON on 01/26/24 Normal [facility] Progress Noteson 01-14-2024 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 2 cervicalgia M79.12 myalgia neck G50.1 atypical facial pain Location - Right ear, Right TMJ, and top of the head, TMJ MRI discs are with us, pending neck CT Appearance - Fatigued Chronology - Months Precipitating - Function Quality - Sharp Intensity - 9 /10 Duration - 5 months Frequency - Daily, several times during function Ameliorating - None reported Aggravating - Function Associated symptoms - Migraines Imaging panoramic film: repeated today at no charge, suspect fractured right stylohyoid process. CT: of neck without contrast Ordered Last visit: 01.03.2024 Medical history: Reviewed and reconciled with [employer]. Changes in medical history since last visit: NONE Meds: Reviewed and reconciled with Epic. Changes in medical history since last visit: NONE Allergies: Reviewed and reconciled with Epic. Changes in medical history since last visit: NONE Family history: Reviewed and reconciled with Epic. Changes in medical history since last visit: NONE Social history: Reviewed and reconciled with Epic. Changes in medical history since last visit: NONE Social - Habits - ROS: - CONSTITUTIONAL: Denies unintentional weight loss, fever and chills. - HEENT: Denies changes in vision and hearing. - RESPIRATORY: Denies SOB and cough. - CV: Denies palpitations and CP. - GI: Denies abdominal pain, nausea, vomiting and diarrhea. - : Denies dysuria and urinary frequency. - MSK: Denies myalgia and joint pain. - SKIN: Denies rash and pruritus. - NEUROLOGICAL: Denies headache and syncope. - PSYCHIATRIC: Denies recent changes in mood. PHYSICAL EXAM: GENERAL: Alert and oriented x 3. No acute distress. Well-nourished, well-developed. CONSTITUTIONAL: AVSS VOICE: RESPIRATION: Breathing comfortably, no stridor. CARDIOVASCULAR: No clubbing/cyanosis/edema in hands. EYES: Extraocular movements intact, sclera normal, no scleral icterus, no lesions noted. NEURO: Detailed below. HEAD AND FACE: Symmetric facial features, no masses or lesions, sinuses nontender to palpation. SALIVARY GLANDS: Parotid and submandibular glands normal bilaterally. EARS: Normal external ears, external auditory canals, normal hearing to whispered voice. NOSE: External nose midline, anterior nasal cavity is normal with limited visualization to the anterior aspect of the interior turbinates. No lesions noted. ORAL CAVITY/OROPHARYNX/LIPS: Moist mucous membranes, no lesions noted. NECK/LYMPH NODES: No lymphadenopathy, no thyroid masses. Trachea palpably midline SKIN: Face and neck skin without scars, bruises, or injury PSYCH: Alert and oriented with appropriate mood and affect DETAILED EXAM: Cranial Nerves - II through XII grossly intact Detailed CN V: sensory: R: significant pain radiating across palate L:Normal V1-V3 Motor: R: Normal L: Normal Two point discrimination: equal, however very painful on right Directionality: Not done Detailed CN VII: motor R: Normal L: Normal Balance/Equilibrium - Finger to nose normal response. Romberg: not performed Patient has radiating and shooting pain upon touching upper lip to the right of the midline and chin, both radiating to the head, neck, and palate. NECK: No LAD. IOE: tongue scalloping present cheek ridging minor , wear Occlusion: PATIENT IS EDENTULOUS Midline: Coincident. Deviated to the mm Deviation/deflection - None ROM - DAVY: 37 mm passive: mm active: mm R lateral: mm L lateral: mm protrusion: mm Joint palpation: R TMJ dorsal:0/5 lateral:0 intrauaricular: 0 L TMJ dorsal:0/5 lateral:0 intraauricular:0 Joint sounds - R TMJ: None L TMJ: None Loading: R TMJ: ipsilateral pain: - contralateral pain:- L TMJ: ipsilateral pain: - contralateral pain:- Occlusion: stable and reproducible Myofascial Exam - Deep masseter: R:5 /5 L:5 Superficial masseter R:4 L:0 Anterior temp R:4 L:1 Medial/post temp R:2 L:4 Frontal R:5 L:2 Medial pterygoid R:3 L:0 Lateral pterygoid R:5 L:0 Digastric Ant R:0 L:0 Digastric post: R:0 L:0 Temp tendon R:0 L:0 Occipital R:5 L:0 Splenius R:0 L:0 Scalenes R:5 L:0 Trapezius R:0 L:0 Suprascapular R:5 L:0 SCM R:0 L:0 Stylohyoid R:5 L:0 Presence of trigger areas: to the right of midline of upper lip and chin Presence of ANS signs: None Impression: Findings today are similar to previous visit. He is concerned about pain on midline of palate. No clinical findings today. Explained accordingly. His insurance is still no authorizing neck imaging. Will review the imaging he brought at radiology- [facility] the coming week. He had suggested carbamazepine prescription. Suggested to stay on the TCA as below and the relaxants. Partial report on TMJ imaging he sent via text demonstrated minor osteophytes - no acute OA . G44.8 TMD associat (more content not included)... 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 [facility] has no opening at [facility] to schedule pt into please reach out to assist on best way to schedule. Pt can be reached at Phone numbers Normal [employer] MR Brain WO and W contrast I Von 01-06-2024 IMPRESSION: No acute brain findings. General volume and morphology of the brain is within expected limits for age. No mass effect or abnormal intracranial enhancement and no abnormal cranial nerve enhancement. 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 Motor And Chassis Inspector: JEFFREY Transcribe Date/Time: Jan 06 2024 4:04P Dictated by : ESAU MCKINLEY MD This examination was interpreted and the report reviewed and electronically signed by: ESAU MCKINLEY MD on Jan 06 2024 4:11PM [facility] DIVISION OF RADIOLOGY * * *Final Report* * * DATE OF EXAM: Jan 06 2024 3:30PM EDUARDO 0295 - MRI BRAIN WO/W IVCON / PROCEDURE REASON: multiple diagnoses * * * * Physician Interpretation * * * * EXAMINATION: MRI BRAIN WO/W IVCON CLINICAL HISTORY: Right-sided facial pain. TECHNIQUE: Upper cranial nerve protocol performed without and with gadolinium. MQ: MRBWOW_2 Contrast: 14 mL Dotarem IV COMPARISON: Previous CT of the brain 01/07/2022. RESULT: Acute Change: There is no restricted diffusion on this examination to suggest focal acute ischemia or pathologic brain parenchymal cellularity. Hemorrhage: No abnormal susceptibility artifact is identified to suggest sequela of prior brain parenchymal hemorrhage. Mass Lesion/ Mass Effect: No evidence of an intracranial mass or extra-axial fluid collection. No abnormal parenchymal or leptomeningeal enhancement is noted following contrast administration. No significant mass effect. Chronic Change: The white matter is within normal limits of signal intensity for age. Parenchyma: No significant volume loss for age. The brain parenchyma is otherwise within normal limits of signal intensity and morphology. Ventricles: Normal caliber and morphology. Skull Base: Hypothalamic and pituitary region normal. Craniovertebral junction normal. Cerebellar tonsils are normally positioned relative to the foramen magnum. No gross vascular impingement of lower cranial nerves, no lower cranial nerve nodularity or gross thickening visible on the axial CISS sequence. Meckel's cave and cavernous sinus regions are grossly normal. No focal brainstem lesions. The outline of the inner ear structures is unremarkable. No abnormal cranial nerve enhancement after gadolinium. Vasculature: Major intracranial arterial structures, and dural venous sinuses show typical flow void, suggesting patency by spin echo criteria. Concordant appearance after gadolinium Other: The visualized paranasal sinuses and mastoid air cells are clear. The orbits and extracranial soft tissues are unremarkable. 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 This is not a dedicated TMJ study. Dedicated exam and corresponding facial bone CT would be useful to specifically assess the soft tissues and disc as well as bone detail of the condyle and fossa. DIVISION OF RADIOLOGY Provider, [facility] - 01/06/2024 * * *Final Report* * * DATE OF EXAM: Jan 06 2024 3:30PM LNM 0295 - MRI BRAIN WO/W IVCON / PROCEDURE REASON: multiple diagnoses * * * * Physician Interpretation * * * * EXAMINATION: MRI BRAIN WO/W IVCON CLINICAL HISTORY: Right-sided facial pain. TECHNIQUE: Upper cranial nerve protocol performed without and with gadolinium. MQ: MRBWOW_2 Contrast: 14 mL Dotarem IV COMPARISON: Previous CT of the brain 01/07/2022. RESULT: Acute Change: There is no restricted diffusion on this examination to suggest focal acute ischemia or pathologic brain parenchymal cellularity. Hemorrhage: No abnormal susceptibility artifact is identified to suggest sequela of prior brain parenchymal hemorrhage. Mass Lesion/ Mass Effect: No evidence of an intracranial mass or extra-axial fluid collection. No abnormal parenchymal or leptomeningeal enhancement is noted following contrast administration. No significant mass effect. Chronic Change: The white matter is within normal limits of signal intensity for age. Parenchyma: No significant volume loss for age. The brain parenchyma is otherwise within normal limits of signal intensity and morphology. Ventricles: Normal caliber and morphology. Skull Base: Hypothalamic and pituitary region normal. Craniovertebral junction normal. Cerebellar tonsils are normally positioned relative to the foramen magnum. No gross vascular impingement of lower cranial nerves, no lower cranial nerve nodularity or gross thickening visible on the axial CISS sequence. Meckel's cave and cavernous sinus regions are grossly normal. No focal brainstem lesions. The outline of the inner ear structures is unremarkable. No abnormal cranial nerve enhancement after gadolinium. Vasculature: Major intracranial arterial structures, and dural venous sinuses show typical flow void, suggesting patency by spin echo criteria. Concordant appearance after gadolinium Other: The visualized paranasal sinuses and mastoid air cells are clear. The orbits and extracranial soft tissues are unremarkable. 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 This is not a dedicated TMJ study. Dedicated exam and corresponding facial bone CT would be useful to specifically assess the soft tissues and disc as well as bone detail of the condyle and fossa. IMPRESSION IMPRESSION: No acute brain findings. General volume and morphology of the brain is within expected limits for age. No mass effect or abnormal intracranial enhancement and no abnormal cranial nerve enhancement. 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 Motor And Chassis Inspector: JEFFREY Transcribe Date/Time: Jan 06 2024 4:04P Dictated by : ESAU MCKINLEY MD This examination was interpreted and the report reviewed and electronically signed by: ESAU MCKINLEY MD on Jan 06 2024 4:11PM EST [facility] Radiology Study observation (narrative) [facility] MR Brain WO and W contrast I VOrdered By: [facility] Provider on 01-06-2024 [facility] MRI BRAIN WO/W IVCONon 01-05 MRI BRAIN WO/W IVCON * * *Final Report* * * DATE OF EXAM: Jan 06 2024 3:30PM LNM 0295 - MRI BRAIN WO/W IVCON / PROCEDURE REASON: multiple diagnoses * * * * Physician Interpretation * * * * EXAMINATION: MRI BRAIN WO/W IVCON CLINICAL HISTORY: Right-sided facial pain. TECHNIQUE: Upper cranial nerve protocol performed without and with gadolinium. MQ: MRBWOW_2 Contrast: 14 mL Dotarem IV COMPARISON: Previous CT of the brain 01/07/2022. RESULT: Acute Change: There is no restricted diffusion on this examination to suggest focal acute ischemia or pathologic brain parenchymal cellularity. Hemorrhage: No abnormal susceptibility artifact is identified to suggest sequela of prior brain parenchymal hemorrhage. Mass Lesion/ Mass Effect: No evidence of an intracranial mass or extra-axial fluid collection. No abnormal parenchymal or leptomeningeal enhancement is noted following contrast administration. No significant mass effect. Chronic Change: The white matter is within normal limits of signal intensity for age. Parenchyma: No significant volume loss for age. The brain parenchyma is otherwise within normal limits of signal intensity and morphology. Ventricles: Normal caliber and morphology. Skull Base: Hypothalamic and pituitary region normal. Craniovertebral junction normal. Cerebellar tonsils are normally positioned relative to the foramen magnum. No gross vascular impingement of lower cranial nerves, no lower cranial nerve nodularity or gross thickening visible on the axial CISS sequence. Meckel's cave and cavernous sinus regions are grossly normal. No focal brainstem lesions. The outline of the inner ear structures is unremarkable. No abnormal cranial nerve enhancement after gadolinium. Vasculature: Major intracranial arterial structures, and dural venous sinuses show typical flow void, suggesting patency by spin echo criteria. Concordant appearance after gadolinium Other: The visualized paranasal sinuses and mastoid air cells are clear. The orbits and extracranial soft tissues are unremarkable. 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 This is not a dedicated TMJ study. Dedicated exam and corresponding facial bone CT would be useful to specifically assess the soft tissues and disc as well as bone detail of the condyle and fossa. IMPRESSION: No acute brain findings. General volume and morphology of the brain is within expected limits for age. No mass effect or abnormal intracranial enhancement and no abnormal cranial nerve enhancement. 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 Motor And Chassis Inspector: JEFFREY Transcribe Date/Time: Jan 06 2024 4:04P Dictated by : ESAU MCKINLEY MD This examination was interpreted and the report reviewed and electronically signed by: ESAU MCKINLEY MD on Jan 06 2024 4:11PM EST [id number] Normal [facility] 01-05-2024 [facility] Telephone ([facility]) -------- RAHEEM COHN ([id number]) 1975 M Date Time Provider Department 01/05/24 EYAL GARCIA [facility] During your visit today, we recorded the following information about you: Ivana Patient Analytical Strategist Lulu Denson 01/05/2024 11:29 AM Signed Name of Caller: Raheem Cohn Relationship to patient: patient Last visit in this department: Visit date not found Reason for Call: Other : Patient says if he looks at mri for tmj it shows cyst in jawbone and several growths. He also said its hard to swallow. Application Release Manager told him to stop taking a medication because of dehydration. Patient requests a different medication for MRI. Please call to discuss. Callback number: [phone] Fax Number (if necessary): N/A Additional info if needed (Prior Auth #, Claim #, etc?): N/A Lulu Heath Patient Analytical Strategist Treasure Zamudio RN 01/05/2024 11:58 AM Signed See MyChart encounter from 12/31/2023. Informed patient that he should also schedule a follow up appointment to discuss symptoms in depth with provider. Informed him that he can schedule with any headache JEROME. Allergies As of Date: 01/05/2024 Noted Allergy Reaction PENICILLINS 06/03/2007 10 - Anaphylaxis Date Reviewed: 12/08/2023 Reviewed by: Kory Kirkland APRN.[facility] - Fully Assessed Prescriptions as of 01/05/2024 - chlorproMAZINE (THORAZINE) 50 mg tablet Take 2 tablets by mouth one time only for 1 dose. Take 1 hour prior to MRI. - terbinafine HCl (LAMISIL) 250 mg tablet Take 250 mg by mouth once daily. - QUEtiapine (SEROQUEL) 100 mg tablet Take 200 mg by mouth daily at bedtime. - nortriptyline (PAMELOR) 25 mg capsule Take 1 capsule by mouth two times a day. - omeprazole (PRILOSEC) 40 mg capsule Take 40 mg by mouth once daily. Problem List As Of Date 01/05/2024 Noted Resolved Anxiety state, unspecified [F41.1] Insomnia, unspecified [G47.00] Amphetamine and other psychostimulant dependenc*06/03/2007 Hepatitis C [B19.20] 05/13/2012 Lumbar disc herniation [M51.26] 05/13/2012 Lumbago [M54.50] 05/13/2012 Spondylolisthesis, grade 1 [M43.10] 05/13/2012 DDD (degenerative disc disease), lumbar [M51.36*05/13/2012 Polysubstance dependence including opioid type *05/13/2012 Weight loss [R63.4] 09/25/2013 Fatigue [R53.83] 09/25/2013 Encounter Status:Closed by TREASURE HERNANDEZ on 01/05/24 Normal [facility] Progress Noteson 01-03-2024 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 Would need CT report and disc if possible. Patient will request. ----- Signed on Wednesday, January 03, 2024 at 12:49:25 PM ----- ----- Provider: Joie Hi DMD -- Clinic: [place] ----- [facility]-31-2023 [facility] Telephone ([facility]) -------- RAHEEM COHN ([id number]) 1975 M Date Time Provider Department 12/31/23 EYAL GARCIA During your visit today, we recorded the following information about you: Rachelle Berry 12/31/2023 12:38 PM Signed Raheem is calling Eyal Garcia MD today asking if he can be prescribed XANAX to help him get threw the MRI that he is scheduled for on 01/06/24. If this is possible please send it to [facility] in [place]. Please advise. Patient has been identified by name and birthdate. Duration of symptoms: N/A Person calling: self Call patient at: at home [phone] (home) Was an appointment scheduled: No Closing statement: Results or non-symptom based questions: Thank you for calling [facility], your call will be returned within the next business day. Eyal Rutherford MD 12/31/2023 4:22 PM Signed Chlorpromazine 100 mg po prior to MRI. Take 1 hour prior to procedure. Decline alprazolam. Eyal Garcia MD December 31, 2023 4:22 PM Gabe Smiley 12/31/2023 4:37 PM Signed Patient calling in stating that the prescription was sent to the wrong pharmacy. Please send to [facility] in [place]. Idalia Naranjo LPN 12/31/2023 4:39 PM Signed Forwarded to provider. Eyal Garcia MD 12/31/2023 5:20 PM Signed Addended by: EYAL GARCIA on: 12/31/2023 05:20 PM Modules accepted: Orders Eyal Garcia MD 12/31/2023 5:21 PM Signed Re-sent to [facility]. Eyal Garcia MD December 31, 2023 5:21 PM Allergies As of Date: 12/31/2023 Noted Allergy Reaction PENICILLINS 06/03/2007 10 - Anaphylaxis Date Reviewed: 12/08/2023 Reviewed by: Kory Kirkland APRN.[facility] - Fully Assessed Reason for Visit: Patient Question [1477] Order(s):chlorproMAZINE (THORAZINE) 50 mg tabletTake 2 tablets by mouth one time only for 1 dose. Take 1 hour prior to MRI.Disp: 2 tabletRfl: 0 Prescriptions as of 12/31/2023 - chlorproMAZINE (THORAZINE) 50 mg tablet Take 2 tablets by mouth one time only for 1 dose. Take 1 hour prior to MRI. - terbinafine HCl (LAMISIL) 250 mg tablet Take 250 mg by mouth once daily. - QUEtiapine (SEROQUEL) 100 mg tablet Take 200 mg by mouth daily at bedtime. - nortriptyline (PAMELOR) 25 mg capsule Take 1 capsule by mouth two times a day. - omeprazole (PRILOSEC) 40 mg capsule Take 40 mg by mouth once daily. Problem List As Of Date 12/31/2023 Noted Resolved Anxiety state, unspecified [F41.1] Insomnia, unspecified [G47.00] Amphetamine and other psychostimulant dependenc*06/03/2007 Hepatitis C [B19.20] 05/13/2012 Lumbar disc herniation [M51.26] 05/13/2012 Lumbago [M54.50] 05/13/2012 Spondylolisthesis, grade 1 [M43.10] 05/13/2012 DDD (degenerative disc disease), lumbar [M51.36*05/13/2012 Polysubstance dependence including opioid type *05/13/2012 Weight loss [R63.4] 09/25/2013 Fatigue [R53.83] 09/25/2013 Prescriptions ordered this encounter Disp Refills Start End CHLORPROMAZINE 50 MG TABLET 2 ta* 0 12/31/2023 12/31/2023 Route: ORAL Sig: Take 2 tablets by mouth one time only for 1 dose. Take 1 hour prior to MRI. CHLORPROMAZINE 50 MG TABLET 2 ta* 0 12/31/2023 12/31/2023 Route: ORAL Sig: Take 2 tablets by mouth one time only for 1 dose. Take 1 hour prior to MRI. Medications Discontinued During This Encounter Prescriptions - chlorproMAZINE (THORAZINE) 50 mg tablet (Discontinued) Take 2 tablets by mouth one time only for 1 dose. Take 1 hour prior to MRI. Encounter Status:Closed by EYAL GARCIA on 12/31/23 Normal [facility] Telephone Encounteron 2023 Pit Laborer Authentication Interface Message Text What is the need: Situation: CT Scan Update Background: Pt called in stating that Dr Hi requested to do a throat CT scan. Pt stated he followed up with insurance and one was done through ENT at [facility] in September. The provider's name is Kelli Mcadams. Pt said Dr Hi would need to complete a peer to peer call to ok the use of that CT scan. Recommendation: Please follow up with insurance to sort out. Pt only gave insurance phone number of [phone]. If there are any questions, call Pt at Telephone Information: Thanks! Octavio Ngo Sent URGENT message in [employer] on 01/03/24 Normal [facility] [employer] MR TMJon 12-30-2023 MR TMJ MR TMJ History: Mild [place] pain and pain while swallowing. Symptoms for 20 months. Right TMJ pain especially Comparison CT of the face September 22, 2023 Procedure: Multiplanar multisequence imaging performed through the temporomandibular joints including open and closed views. Findings: Right TMJ: The disc demonstrates appropriate signal, shape, and position at the 01:00 position at both the medial and lateral pole closed mouth view.. It moves appropriately on open-mouth view but with slightly reduced translation. The mandibular condyle demonstrates appropriate signal and appropriate size and position. There is no joint effusion. Left TMJ: The disc demonstrates appropriate signal, shape, and position at the 01:00 position at both the medial and lateral pole on closed mouth view.. Slightly reduced translation on open mouth view but otherwise appropriate movement of the disc. The mandibular condyle demonstrates appropriate size and position. 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 Impression: Left TMJ shows reduced translation possibly due to early degenerative changes of the left mandibular condyle. Disc shows no internal derangement. Right TMJ unremarkable excepting for some reduced translation which may be due to abnormal biomechanics of the opposite TMJ. Finalized by Rory Conrad MD on 12/30/2023 12:03 PM Normal [facility] Antinuclear AB, HE-p Substra te, (GETACHEW by IFA)on 12-27-2023 Antinuclear Ab, HEp-2 Substrate, S Negative Normal <1:80 (Negative) [facility] Comment on above: Result Comment: NOTE ADDITIONAL INFORMATION Method: Immunofluorescence using HEp-2 cellular substrate. Test Performed by: [facility] [address] [place] [address] Welder Experimental: Cruz Muñoz Ph.D.; CLIA# [id number] Performed By: #### C 34, ENAP #### [facility] ([id number]) [address] [place] [address] #### 14891-7, NAIFA #### [facility] ([id number]) [address] [facility], COMPLEMENT PROFILEon 024 COMPLEMENT C3 115 mg/dL Normal 86-184 [facility] Comment on above: Performed By: #### C 34, ENAP #### [facility] ([id number]) [address] [place] [id number] #### 34138-7, NAIFA #### [facility] ([id number]) [address] [facility], COMPLEMENT C4 10 mg/dL Low 16-47 [facility] Comment on above: Performed By: #### C 34, ENAP #### [facility] ([id number]) [address] [facility], [place] [id number] #### 91605-1, NAIFA #### [facility] ([id number]) [address] [facility], DNA double strand IgG IF Cri thidia luciliae (S) [Titer]on 12-27-2023 Cr[facility] Interpretation See Note Normal [facility] Comment on above: Result Comment: NOTE Testing for dsDNA antibody by Crithidia IFA was negative. Test Performed by: [facility] [address] [place] [address] Welder Experimental: Cruz Muñoz Ph.D.; CLIA# [id number] Performed By: #### C 34, ENAP #### [facility] ([id number]) [address] [facility], [address] [place] [address] #### 14114-7, NAIFA #### [facility] ([id number]) [address] [place] [address], dsDNA Ab by Crithidia IFA, IgG, S Negative Normal Negative [facility] Comment on above: Performed By: #### C 34, ENAP #### [facility] ([id number]) [address] [facility], [address] [place] [address] #### 58015-0, NAIFA #### [facility] ([id number]) [address] [place] [address], CHERYL PANELon 12-27-2023 ANTI-BARROW AB IGG <0.2 Normal <1.0 [facility] Comment on above: Performed By: #### C 34, ENAP #### [facility] ([id number]) [address] [facility], [address] [place] [address] #### 71680-2, NAIFA #### [facility] ([id number]) [address] [place] [address], JO1 ANTIBODY <0.2 Normal <1.0 [facility] Comment on above: Performed By: #### C 34, ENAP #### [facility] ([id number]) [address] [facility], [address] [place] [address] #### 79839-8, NAIFA #### [facility] ([id number]) [address] [place] [address], FINANCING ANALYST ANTIBODY IGG 0.2 AI Normal <1.0 [facility] Comment on above: Performed By: #### C 34, ENAP #### [facility] ([id number]) [address] [place] [address], [address] [place] [address] #### 76826-2, NAIFA #### [facility] ([id number]) [address] [place] [address], SCL 70 ANTIBODY <0.2 Normal <1.0 [facility] Comment on above: Performed By: #### C 34, ENAP #### [facility] ([id number]) [address] [place] [address], [address] [place] [address] #### 10282-4, NAIFA #### [facility] ([id number]) [address] [place] [address], SSA ANTIBODY <0.2 Normal <1.0 [facility] Comment on above: Performed By: #### C 34, ENAP #### [facility] ([id number]) [address] [place] [address], [address] [place] [address] #### 61301-1, NAIFA #### [facility] ([id number]) [address] [place] [address], SSB ANTIBODY 0.3 AI Normal <1.0 [facility] Comment on above: Performed By: #### C 34, ENAP #### [facility] ([id number]) [address] [place] [address], [address] [place] [address] #### 18684-5, NAIFA #### [facility] ([id number]) [address] [place] [address], Progress Noteson 12-20-2023 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 2 cervicalgia M79.12 myalgia neck G50.1 atypical facial pain Location - Right ear, Right TMJ, and top of the head, pending TMJ MRI this week, pending neck CT Appearance - Fatigued Chronology - Months Precipitating - Function Quality - Sharp Intensity - 9 /10 Duration - 5 months Frequency - Daily, several times during function Ameliorating - None reported Aggravating - Function Associated symptoms - Migraines Imaging panoramic film: repeated today at no charge, suspect fractured right stylohyoid process. CT: of neck without contrast Ordered Last visit: 12.06.2023 Medical history: Reviewed and reconciled with [employer]. Changes in medical history since last visit: NONE Meds: Reviewed and reconciled with Epic. Changes in medical history since last visit: NONE Allergies: Reviewed and reconciled with Epic. Changes in medical history since last visit: NONE Family history: Reviewed and reconciled with Epic. Changes in medical history since last visit: NONE Social history: Reviewed and reconciled with Epic. Changes in medical history since last visit: NONE Social - Habits - ROS: - CONSTITUTIONAL: Denies unintentional weight loss, fever and chills. - HEENT: Denies changes in vision and hearing. - RESPIRATORY: Denies SOB and cough. - CV: Denies palpitations and CP. - GI: Denies abdominal pain, nausea, vomiting and diarrhea. - : Denies dysuria and urinary frequency. - MSK: Denies myalgia and joint pain. - SKIN: Denies rash and pruritus. - NEUROLOGICAL: Denies headache and syncope. - PSYCHIATRIC: Denies recent changes in mood. PHYSICAL EXAM: GENERAL: Alert and oriented x 3. No acute distress. Well-nourished, well-developed. CONSTITUTIONAL: AVSS VOICE: RESPIRATION: Breathing comfortably, no stridor. CARDIOVASCULAR: No clubbing/cyanosis/edema in hands. EYES: Extraocular movements intact, sclera normal, no scleral icterus, no lesions noted. NEURO: Detailed below. HEAD AND FACE: Symmetric facial features, no masses or lesions, sinuses nontender to palpation. SALIVARY GLANDS: Parotid and submandibular glands normal bilaterally. EARS: Normal external ears, external auditory canals, normal hearing to whispered voice. NOSE: External nose midline, anterior nasal cavity is normal with limited visualization to the anterior aspect of the interior turbinates. No lesions noted. ORAL CAVITY/OROPHARYNX/LIPS: Moist mucous membranes, no lesions noted. NECK/LYMPH NODES: No lymphadenopathy, no thyroid masses. Trachea palpably midline SKIN: Face and neck skin without scars, bruises, or injury PSYCH: Alert and oriented with appropriate mood and affect DETAILED EXAM: Cranial Nerves - II through XII grossly intact Detailed CN V: sensory: R: significant pain radiating across palate L:Normal V1-V3 Motor: R: Normal L: Normal Two point discrimination: equal, however very painful on right Directionality: Not done Detailed CN VII: motor R: Normal L: Normal Balance/Equilibrium - Finger to nose normal response. Romberg: not performed Patient has radiating and shooting pain upon touching upper lip to the right of the midline and chin, both radiating to the head, neck, and palate. NECK: No LAD. IOE: tongue scalloping present cheek ridging minor , wear Occlusion: PATIENT IS EDENTULOUS Midline: Coincident. Deviated to the mm Deviation/deflection - None ROM - DAVY: 37 mm passive: mm active: mm R lateral: mm L lateral: mm protrusion: mm Joint palpation: R TMJ dorsal:0/5 lateral:0 intrauaricular: 0 L TMJ dorsal:0/5 lateral:0 intraauricular:0 Joint sounds - R TMJ: None L TMJ: None Loading: R TMJ: ipsilateral pain: - contralateral pain:- L TMJ: ipsilateral pain: - contralateral pain:- Occlusion: stable and reproducible Myofascial Exam - Deep masseter: R:5 /5 L:5 Superficial masseter R:4 L:0 Anterior temp R:5 L:2 Medial/post temp R:3 L:4 Frontal R:5 L:2 Medial pterygoid R:3 L:0 Lateral pterygoid R:5 L:0 Digastric Ant R:0 L:0 Digastric post: R:0 L:0 Temp tendon R:0 L:0 Occipital R:5 L:0 Splenius R:0 L:0 Scalenes R:5 L:0 Trapezius R:0 L:0 Suprascapular R:5 L:0 SCM R:0 L:0 Stylohyoid R:5 L:0 Presence of trigger areas: to the right of midline of upper lip and chin Presence of ANS signs: None Impression: 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 2 cervicalgia M79.12 myalgia neck G50.1 atypical facial pain Plan: nortryptiline 25mg, increase to three times a day methocarbamol 750 mg twice a day noted ED visit with head imaging done a few days ago - no significant MANAGER OF MANUFACTURING findings CT scan to rule out fracture of R stylohyoid process Discussion/Counseling: as above visit : 28 (more content not included)... Normal [employer] C REACTIVE PROTEINon 024 CRP [Mass/Vol] mg/L Normal 0.000-0.744 [facility] Comment on above: Performed By: #### C RASHID, 1987-07, CBCA #### [facility] ([id number]) [address] [place] [address] 84843 CBC AND AUTO DIFFon 12-17-19 24 ABSOLUTE BASOPHIL 0.0 X10E9/L Normal 0.0-0.2 [facility] Comment on above: Performed By: #### Eddie MIKE, 1987-07, CBCA #### [facility] ([id number]) [address] [place] [address] 39130 ABSOLUTE NEUTROPHIL 5.1 X10E9/L Normal 1.5-6.6 [facility] Comment on above: Performed By: #### Eddie MIKE 1987-07, CBCA #### [facility] ([id number]) [address] [place] [address] 96182 Basophils/100 WBC (Bld) 0.4 % Normal [facility] Comment on above: Performed By: #### Eddie MIKE, 1987-07, CBCA #### [facility] ([id number]) [address] [place] [address] 30407 Eosinophils (Bld) [#/Vol] 0.0 10*3/uL Normal 0.0-0.4 [facility] Comment on above: Performed By: #### C RASHID, 1987-07, CBCA #### [facility] ([id number]) [address] [place] [address] 90273 Eosinophils/100 WBC (Bld) 0.7 % Normal [facility] Comment on above: Performed By: #### C RASHID, 1987-07, CBCA #### [facility] ([id number]) [address] [place] [address] 56171 Erythrocyte distribution width (RBC) [Ratio] 13.9 % Normal 11.5-15.0 [facility] Comment on above: Performed By: #### C RASHID, 1987-07, CBCA #### [facility] ([id number]) [address] [place] [address] 20121 Hematocrit (Bld) [Volume fraction] 43.7 % Normal 39-49 [facility] Comment on above: Performed By: #### C RASHID, 1987-07, CBCA #### [facility] ([id number]) [address] [place] [address] 38979 Hemoglobin (Bld) [Mass/Vol] 15.1 g/dL Normal 13.0-17.0 [facility] Comment on above: Performed By: #### C RASHID, 1987-07, CBCA #### [facility] ([id number]) [address] [place] [address] 99922 Lymphocytes (Bld) [#/Vol] 1.2 10*3/uL Normal 1.0-3.5 [facility] Comment on above: Performed By: #### C RASHID, 1987-07, CBCA #### [facility] ([id number]) [address] [place] [address] 12749 Lymphocytes/100 WBC (Bld) 18.0 % Normal [facility] Comment on above: Performed By: #### C RASHID, 1987-07, CBCA #### [facility] ([id number]) [address] [place] [address] 14529 MCH (RBC) [Entitic mass] 33.4 pg Normal 27-34 [facility] Comment on above: Performed By: #### C RASHID, 1987-07, CBCA #### [facility] ([id number]) [address] [place] [address] 08008 MCHC (RBC) [Mass/Vol] 34.6 g/dL Normal 32-36 [facility] Comment on above: Performed By: #### C RASHID, 1987-07, CBCA #### [facility] ([id number]) [address] [place] [address] 12539 MCV (RBC) [Entitic vol] 96 fL Normal 80-100 [facility] Comment on above: Performed By: #### Eddie MIKE, 1987-07, CBCA #### [facility] ([id number]) [address] [place] [address] 42955 Monocytes (Bld) [#/Vol] 0.4 10*3/uL Normal 0-0.9 [facility] Comment on above: Performed By: #### Eddie MIKE, 1987-07, CBCA #### [facility] ([id number]) [address] [place] [address] 38271 Monocytes/100 WBC (Bld) 5.8 % Normal [facility] Comment on above: Performed By: #### Eddie MIKE, 1987-07, CBCA #### [facility] ([id number]) [address] [place] [address] 75488 Neutrophils/100 WBC (Bld) 75.1 % Normal [facility] Comment on above: Performed By: #### Eddie MIKE, 1987-07, CBCA #### [facility] ([id number]) [address] [place] [address] 18587 Platelet mean volume (Bld) [Entitic vol] 7.3 fL Normal 7-12 [facility] Comment on above: Performed By: #### C RASHID, 1987-07, CBCA #### [facility] ([id number]) [address] [place] [address] 38807 Platelets (Bld) [#/Vol] 157 10*3/uL Normal 150-450 [facility] Comment on above: Performed By: #### C RASHID, 1987-07, CBCA #### [facility] ([id number]) [address] [place] [address] 49650 RBC COUNT 4.53 X10E12/L Normal 4.10-5.70 [facility] Comment on above: Performed By: #### Eddie MIKE, 1987-07, CBCA #### [facility] ([id number]) [address] [place] [address] 10809 WBC (Bld) [#/Vol] 6.8 10*3/uL Normal 4.0-11.0 [facility] Comment on above: Performed By: #### Eddie MIKE, 1987-07, CBCA #### [facility] ([id number]) [address] [place] [address] 42854 COMPREHENSIVE METABOLIC PANE Jared 12-17-2023 Albumin [Mass/Vol] 4.7 g/dL Normal 3.2-5.3 [facility] Comment on above: Performed By: #### Eddie MIKE, 1987-07, CBCA #### [facility] ([id number]) [address] [place] [address] 20634 ALP [Catalytic activity/Vol] 54 U/L Normal 39-130 [facility] Comment on above: Performed By: #### Eddie MIKE, 1987-07, CBCA #### [facility] ([id number]) [address] [place] [address] 85557 ALT [Catalytic activity/Vol] 29 U/L Normal 0-40 [facility] Comment on above: Performed By: #### C RASHID, 1987-07, CBCA #### [facility] ([id number]) [address] [place] [address] 65661 Anion gap [Moles/Vol] 9 mmol/L Normal 5-15 [facility] Comment on above: Performed By: #### Eddie MIKE, 1987-07, CBCA #### [facility] ([id number]) [address] [place] [address] 45479 AST [Catalytic activity/Vol] 32 U/L Normal 0-41 [facility] Comment on above: Performed By: #### Eddie MIKE, 1987-07, CBCA #### [facility] ([id number]) [address] [place] [address] 18817 Bilirubin [Mass/Vol] 1.0 mg/dL Normal 0.3-1.2 [facility] Comment on above: Performed By: #### Eddie MIKE, 1987-07, CBCA #### [facility] ([id number]) [address] [place] [address] 82978 Calcium [Mass/Vol] 9.5 mg/dL Normal 8.5-10.5 [facility] Comment on above: Performed By: #### Eddie MIKE 1987-07, CBCA #### [facility] ([id number]) [address] [place] [address] 27214 Chloride [Moles/Vol] 99 mmol/L Normal 98-109 [facility] Comment on above: Performed By: #### Eddie MIKE 1987-07, CBCA #### [facility] ([id number]) [address] [place] [address] 87170 CO2 [Moles/Vol] 25 mmol/L Normal 22-32 [facility] Comment on above: Performed By: #### C RASHID, 1987-07, CBCA #### [facility] ([id number]) [address] [place] [address] 65431 Creatinine [Mass/Vol] 1.08 mg/dL Normal 0.70-1.20 [facility] Comment on above: Result Comment: METH OD TRACEABLE TO IDMS STANDARD Performed By: #### C RASHID, 1987-07, CBCA #### [facility] ([id number]) [address] [place] [address] 92246 GFR/1.73 sq M.predicted among non-blacks MDRD (S/P/Bld) [Vol rate/Area] 85 mL/min/{1.73_m2} Normal >59 [facility] Comment on above: Result Comment: Reported eGFR is based on the CKD-EPI 2020 equation that does not use a race coefficient. Performed By: #### C RASHID, 1987-07, CBCA #### [facility] ([id number]) [address] [place] [address] 41445 Glucose [Mass/Vol] 91 mg/dL Normal 65-99 [facility] Comment on above: Performed By: #### C RASHID, 1987-07, CBCA #### [facility] ([id number]) [address] [place] [address] 02745 Potassium [Moles/Vol] 3.8 mmol/L Normal 3.5-5.0 [facility] Comment on above: Performed By: #### C RASHID 1987-07, CBCA #### [facility] ([id number]) [address] [place] [address] 45192 Protein [Mass/Vol] 8.0 g/dL Normal 6.0-8.0 [facility] Comment on above: Performed By: #### C RASHID, 1987-07, CBCA #### [facility] ([id number]) [address] [place] [address] 52983 Sodium [Moles/Vol] 133 mmol/L Low 134-146 [facility] Comment on above: Performed By: #### C RASHID, 1987-07, CBCA #### [facility] ([id number]) [address] [place] [address] Urea nitrogen [Mass/Vol] 8 mg/dL Normal 5-23 [facility] Comment on above: Performed By: #### C RASHID, 1987-07, CBCA #### [facility] ([id number]) [address] [place] [address] CT BRAIN WO CONTon 4 CT BRAIN WO CONT CT BRAIN WO CONT CT BRAIN WO CONT HISTORY: Headache COMPARISON: None TECHNIQUE: * CT brain without intravenous contrast. Automated exposure control was utilized. * All CT scans at this facility use dose modulation, iterative reconstruction, and/or weight based dosing when appropriate to reduce radiation dose to as low as reasonably achievable. FINDINGS: No acute intracranial hemorrhage, territorial infarct, mass effect, or shift of midline structure. The cerebral volume, ventricles, cisterns, and sulci appear appropriate for patient age. Intraorbital contents appear unremarkable. Paranasal sinuses and mastoid air cells appear well aerated. IMPRESSION: * No acute intracranial findings by CT. Approved by Resident: Jeromy Louis MD on 12/17/2023 3:38 PM I, Amos Erickson MD have personally reviewed the image(s) and agree with and/or edited the report Finalized by Amos Erickson MD on 12/17/2023 3:51 PM Normal [facility] CT SINUSES WO CONTon 024 CT SINUSES WO CONT CT SINUSES WO CONT CT SINUSES WO CONT HISTORY: Sinusitis, facial pain COMPARISON: 09/22/2023 TECHNIQUE: * Multidetector CT axial slices of the sinuses were obtained without intravenous contrast. Multiplanar reformats were created and reviewed. * All CT scans at this facility use dose modulation, iterative reconstruction, and/or weight based dosing when appropriate to reduce radiation dose to as low as reasonably achievable. FINDINGS: The paranasal sinuses and mastoid air cells appear well aerated. Roof of the ethmoid air cells, orbital rims, zygomatic arches, pterygoid plates and visualized portions of the mandible appear unremarkable. Bilateral temporomandibular joints articulate appropriately. Patient is edentulous. Visualized intraorbital and intracranial contents appear within normal limits. IMPRESSION: * No acute abnormality. Approved by Resident: Jeromy Louis MD on 12/17/2023 3:45 PM I, Amos Erickson MD have personally reviewed the image(s) and agree with and/or edited the report Finalized by Amos Erickson MD on 12/17/2023 3:53 PM Normal [facility] CN[facility] Office Visit (OTOLWI ) -------- RAHEEM COHN ([id number]) 1975 M Date Time Provider Department 12/08/23 3:05 PM KORY KIRKLAND OTDULCE During your visit today, we recorded the following information about you: Pulse Height 64/minute 1.778 m Kory Kirkland APRN.[facility] 12/09/2023 7:49 AM Signed OTOLARYNGOLOGY-HEAD AND NECK SURGERY CC: Raheem Cohn is a 48 year old male who is self referred for TMD. Assessment: Dislocation of temporomandibular joint, subsequent encounter (primary encounter diagnosis) Plan: - I personally interpreted and reviewed audiogram which showed essentially normal hearing with type A tympanometry bilaterally. On exam external auditory canal's are patent and tympanic membrane's are clear and intact. - CT of the temporal bones to rule out any inner ear abnormality. - Consult placed to dentistry - Consult placed to physical therapy - Consult to [facility] - Follow-up with me as needed Kory Kirkland APRN.[facility] HPI: 18 months ago he was driving on the [place] and noticed a popping in his right ear while going up and down hills. Starting hearing things. Went to the ED and was hospitalized in a mental facility for a month for hallucinations. Was finally treated with antibiotics and his hallucinating improved Thought there was a dental infection on the right side and had his teeth removed. Broke his jaw doing this Has a MRI of the jaw scheduled for TMJ Sees an oral surgeon who ordered a CT of his throat Reports right ear to his cheek he feels twisting and turning Hears constant cracking with movement when he turns left. ALLERGIES Allergen Reactions Penicillins Anaphylaxis Current Outpatient Medications Medication Sig chlorhexidine (HIBICLENS) 4 % external liquid Apply 1 application to affected area once daily as needed. No current facility-administered medications for this visit. PAST MEDICAL HISTORY Diagnosis Date Amphetamine and other psychostimulant dependence, episodic (HCC) 06/03/2007 clean 09/11, again clean since 01/2013 Anxiety state, unspecified Carpal tunnel syndrome, bilateral Chronic back pain Heart murmur child Hepatitis C Insomnia, unspecified IVDU (intravenous drug user) in past, last in 2009 Verruca vulgaris right hand PAST SURGICAL HISTORY Procedure Laterality Date ANES DX/THER NERVE BLOCK/INJECTION PRONE POS 2012 CRYOSURGERY right hand wart PAST SURGICAL HISTORY OF 1992 right hand fracture Social History: Social History Tobacco Use Smoking status: Every Day Current packs/day: 0.30 Average packs/day: 0.3 packs/day for 16.0 years (4.8 ttl pk-yrs) Types: Cigarettes Smokeless tobacco: Current Tobacco comments: Pt basically does chew Substance Use Topics Alcohol use: No Drug use: Yes Types: Amphetamines Comment: recovering addict since 2006, was on Meth and IV drugs FAMILY HISTORY Problem Relation Age of Onset other (Unknown [Other]) Father other (Anxiety [Other]) Mother ROS: GENERAL: No weight loss, malaise or fevers. HEENT: Negative for frequent or significant headaches, No changes in hearing or vision, No nasal bleeding, congestion or rhinorrhea, No sore throat or change in voice NECK: Negative for lumps, goiter, pain and significant neck swelling RESPIRATORY: Negative for cough, hemoptysis, wheezing or shortness of breath CARDIOVASCULAR: Negative for chest pain, leg swelling or palpitations. GASTROINTESTINAL: No nausea, vomiting, or diarrhea MUSCULOSKELETAL: Negative for joint pain or swelling, back pain or muscle pain. NEUROLOGIC: Negative for focal numbness or weakness, headaches and dizziness or syncope. SKIN: Negative for lesions, rash, and itching. HEMATOLOGIC/LYMPHATIC/IM MUNOLOGIC: Negative for prolonged bleeding, bruising easily or swollen nodes. ENDOCRINE: Negative for cold or heat intolerance, polyuria, polydipsia and goiter. PHYSICAL EXAM: On physical examination Raheem Cohn is a well-developed, well nourished male. His speech is intact and his voice is a normal speaking voice. Mental status revealed patient to be alert and oriented. Mood is appropriate. Details of the physical examination: HEAD AND FACE: Physical examination of the head, neck, external nose, external ears, mouth and face fails to demonstrate any significant abnormality or asymmetry to critical face to face observation. Skin and scalp are normal. EARS: RT Canal: patent RT Drum: intact RT Pneumotoscopy: mobile LT Canal: patent LT Drum: intact LT Pneumotoscopy: mobile NOSE: Examination of the nasal cavity revealed a septum which is midline. The mucosa is pink, and the visible turbinates are normal on anterior rhinoscopy. There is no purulence or polyps. MASTICATION: Edentulous. The lips and gums are without lesions. ORAL CAVITY AND OROPHARYNX: The oral mucosa, hard and soft cahuilla (more content not included)... Normal [facility] CNOV Office Visit (AVERY ) -------- RAHEEM COHN ([id number]) 1975 M Date Time Provider Department 12/08/23 2:30 PM TAYTANA ROMAN During your visit today, we recorded the following information about you: Tatyana Roman AUD 12/09/2023 8:28 AM Signed [facility] [place] Head and Neck Department Section of Audiology AUDIOLOGIC EVALUATION REPORT Name: Raheem Cohn [facility]#: [id number] Date of Service: 12/08/2023 Date of : 1975 Age: [age] year old Referred by: SELF Referred for: Evaluation of suspected change in hearing, tinnitus, or balance. Referral documented: No referral on file Patient's major complaints: Otalgia in both ears, Pressure/fullness in both ears Raheem Crowley Cohn was seen for an initial audiologic evaluation, prior to medical consultation with Kory Kirkland APRN.CNP. At today's appointment, patient reported that he had tingling in his ears, then was driving in the mountains in [place] when the ears started to pop and then he started hallucinating until he was given antibiotics. He has since had all of his teeth removed and other facial procedures, and then cracking starting in right ear that has been spreading across the roof of his mouth and across to the other side. He has bilateral ear pain and pain across his face, as well as an internal tugging/tingling sensation inside his head and ears. 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 He denied otorrhea, tinnitus, surgery of the ear, and family history of childhood hearing loss. Refer to audiogram under Procedures tab for results. IMPRESSIONS RIGHT EAR: Sensorineural hearing loss LEFT EAR: Sensorineural hearing loss AUDIOLOGIC EVALUATION Following is a brief interpretation of the obtained findings from the audiologic evaluation. Refer to the Auditory Test Record for complete audiometric results. The patient was counseled about the test findings and appropriate audiologic recommendations were made. SUMMARY: Audiogram can be viewed under Procedures tab. OTOSCOPY RIGHT EAR: Otoscopic inspection revealed ear canal was clear with an identifiable cone of light. LEFT EAR: Otoscopic inspection revealed ear canal was clear with an identifiable cone of light. TYMPANOMETRY Description of procedure: This test is an objective evaluation of middle ear function. CPT code: 56674 RIGHT EAR: Normal ME function. LEFT EAR: Normal ME function. ACOUSTIC REFLEXES Description of procedure: This test is an objective measure of auditory and facial nerve pathways. CPT code: 50283, 70917 RIGHT EAR PROBE EAR: (ipsi right stimulus ear; contralateral left stimulus ear): Acoustic Reflex Pattern Did not test Acoustic Reflex Decay (left stimulus ear): Did not test. LEFT EAR PROBE EAR: (ipsi left stimulus ear; contralateral right stimulus ear): Acoustic Reflex Pattern Did not test Acoustic Reflex Decay (right stimulus ear):Did not test. PURE TONE AUDIOMETRY AND SPEECH TESTING Description of procedure: This test is an objective evaluation hearing sensitivity via air and bone conduction and speech recognition testing. CPT code:61977 RIGHT EAR: Hearing Sensitivity: WNL with a mild SNHL notch 3643-2178 Hz. Word Recognition Score: Excellent (100%). WRS is consistent with hearing sensitivity. Words were presented at 55 dB HL which approximates (45-55 dB HL) intensity level for average conversational speech. The NU-6 Ordered by Difficulty Word List (10 words) was used for testing. LEFT EAR: Hearing Sensitivity: WNL with a mild SNHL notch 5167-3131 Hz. Word Recognition Score: Excellent (100%). WRS is consistent with hearing sensitivity. Words were presented at 55 dB HL which approximates (45-55 dB HL) intensity level for average conversational speech. The NU-6 Ordered by Difficulty Word List (10 words) was used for testing. RECOMMENDATIONS * Continue medical follow-up with Danielle Kirkland CNP. * Re-evaluation as medically indicated or if a change in hearing is noted. * The patient was counseled regarding the need to monitor hearing and have regular hearing assessments. Elyse Akhtar B.A. Doctor of Audiology (Serafin) Aviation Technical Systems Specialist Testing was obtained under the direct supervision of Serafin Chavez, LUDIN/A Serafin Chavez, LUDIN/A Clinical Carbon Printer MENDIETA Abbrev- iation Definition Degree of hearing sensitivity dB range WNL within normal limits WNL 0 - 20 SNHL sensorineural hearing loss Mild 20-40 CHL conductive hearing loss Moderate 40-55 MHL mixed hearing loss Moderately-Severe 55-70 WRS word recognition score Severe 70-90 ME middle ear Profound 90 + TM tympanic membrane Referring Provider: SELF [200] Allergies As of Date: 12/08/2023 Noted Allergy Reaction PENICILLINS 06/03/2007 10 - Anaphylaxis Date Reviewed: 12/08/2023 Reviewed by: Conrad (more content not included)... Normal [facility] Telephone Encounteron 2023 [employer] Authentication Interface Message Text What is the need: Situation: CT Scan Issue Background: Pt called in to set up CT scan. He said the earliest they could get him in was 12/23/23. He is very upset and wanted someone from [facility] to follow up and see if they can assist. Recommendation: Please call Pt at Telephone Information: Thanks! 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 2 cervicalgia M79.12 myalgia neck G50.1 atypical facial pain Location - Right ear, Right TMJ, and top of the head Appearance - Distress Chronology - Months Precipitating - Function Quality - Sharp Intensity - 7 /10 Duration - 5 months Frequency - Daily, several times during function Ameliorating - None reported Aggravating - Function Associated symptoms - Migraines Imaging panoramic film: repeated today at no charge, suspiscion of fractured right stylohyoid process. CT: of neck without contrast Ordered Last visit: 10.28.2023 Medical history: Reviewed and reconciled with [employer]. Changes in medical history since last visit: NONE Meds: Reviewed and reconciled with [employer]. Changes in medical history since last visit: NONE Allergies: Reviewed and reconciled with [employer]. Changes in medical history since last visit: NONE Family history: Reviewed and reconciled with [employer]. Changes in medical history since last visit: NONE Social history: Reviewed and reconciled with [employer]. Changes in medical history since last visit: NONE Social - Habits - ROS: - CONSTITUTIONAL: Denies unintentional weight loss, fever and chills. - HEENT: Denies changes in vision and hearing. - RESPIRATORY: Denies SOB and cough. - CV: Denies palpitations and CP. - GI: Denies abdominal pain, nausea, vomiting and diarrhea. - : Denies dysuria and urinary frequency. - MSK: Denies myalgia and joint pain. - SKIN: Denies rash and pruritus. - NEUROLOGICAL: Denies headache and syncope. - PSYCHIATRIC: Denies recent changes in mood. PHYSICAL EXAM: GENERAL: Alert and oriented x 3. No acute distress. Well-nourished, well-developed. CONSTITUTIONAL: AVSS VOICE: RESPIRATION: Breathing comfortably, no stridor. CARDIOVASCULAR: No clubbing/cyanosis/edema in hands. EYES: Extraocular movements intact, sclera normal, no scleral icterus, no lesions noted. NEURO: Detailed below. HEAD AND FACE: Symmetric facial features, no masses or lesions, sinuses nontender to palpation. SALIVARY GLANDS: Parotid and submandibular glands normal bilaterally. EARS: Normal external ears, external auditory canals, normal hearing to whispered voice. NOSE: External nose midline, anterior nasal cavity is normal with limited visualization to the anterior aspect of the interior turbinates. No lesions noted. ORAL CAVITY/OROPHARYNX/LIPS: Moist mucous membranes, no lesions noted. NECK/LYMPH NODES: No lymphadenopathy, no thyroid masses. Trachea palpably midline SKIN: Face and neck skin without scars, bruises, or injury PSYCH: Alert and oriented with appropriate mood and affect DETAILED EXAM: Cranial Nerves - II through XII grossly intact Detailed CN V: sensory: R: significant pain radiating across palate L:Normal V1-V3 Motor: R: Normal L: Normal Two point discrimination: equal, however very painful on right Directionality: Not done Detailed CN VII: motor R: Normal L: Normal Balance/Equilibrium - Finger to nose normal response. Romberg: not performed Patient has radiating and shooting pain upon touching upper lip to the right of the midline and chin, both radiating to the head, neck, and palate. NECK: No LAD. IOE: tongue scalloping present cheek ridging minor , wear Occlusion: PATIENT IS EDENTULOUS Midline: Coincident. Deviated to the mm Deviation/deflection - None ROM - DAVY: mm passive: mm active: mm R lateral: mm L lateral: mm protrusion: mm Joint palpation: R TMJ dorsal:0/5 lateral:0 intrauaricular: 0 L TMJ dorsal:0/5 lateral:0 intraauricular:0 Joint sounds - R TMJ: None L TMJ: None Loading: R TMJ: ipsilateral pain: - contralateral pain:- L TMJ: ipsilateral pain: - contralateral pain:- Occlusion: stable and reproducible Myofascial Exam - Deep masseter: R:5 /5 L:5 Superficial masseter R:4 L:0 Anterior temp R:5 L:2 Medial/post temp R:3 L:4 Frontal R:5 L:2 Medial pterygoid R:3 L:0 Lateral pterygoid R:5 L:0 Digastric Ant R:0 L:0 Digastric post: R:0 L:0 Temp tendon R:0 L:0 Occipital R:5 L:0 Splenius R:0 L:0 Scalenes R:5 L:0 Trapezius R:0 L:0 Suprascapular R:5 L:0 SCM R:0 L:0 Stylohyoid R:5 L:0 Presence of trigger areas: to the right of midline of upper lip and chin Presence of ANS signs: None Impression: 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 2 cervicalgia M79.12 myalgia neck G50.1 atypical facial pain Plan: nortryptiline 25mg, 1 tabl by mouth 2 times a day, for [address] scan to rule out fracture of R stylohyoid process Discussion/Counseling: Patient reports a several month history of r (more content not included)... Normal [facility] [employer] ED NOTEon 11-28-2023 ED NOTE HNO ID: [id number] Author: MEGA JASON RN Service: ? Author Type: Registered Nurse Type: ED Notes Filed: 11/28/2023 14:31 Note Text: Bed: Expected date: Expected time: Means of arrival: Comments: EMS Normal [facility] ED PROV NOTEon 11-28-2023 ED PROV NOTE HNO ID: [id number] Author: MERISSA HOFFMAN MD Service: Emergency Medicine Author Type: Resident Type: ED Provider Notes Filed: 11/30/2023 17:27 Note Text: -------- Attestation signed by Merissa Hoffman MD at 11/30/2023 5:27 PM Attending Note I evaluated the patient and personally participated in the mendieta components. I agree with the resident's findings and plan as documented and have discussed the case and management of the patient's care with the resident. Agree with below. Hx of chronic facial pains, multiple imaging and workups, here requesting referral to ent at [facility] for 2nd opinion. No acute issue today requiring surgical intevention. No infectious symptoms. (R29.898) Jaw clicking (primary encounter diagnosis) (H92.01) Ear pain, right Signature: Merissa Hoffman MD Date: 11/30/2023 Time: 5:27 PM -------- EMERGENCY MEDICINE NOTE Patient presents with: Joint Pain: Patient states that he has had a cracking noise in his ear for 6 months , states has been to several places for treatment, states feels it in roof of mouth and also is hearing black lives matter in his head Records reviewed: On 07/24/2023 patient had MRI of brain and internal auditory canals which was negative On 09/01/2023 patient had an x-ray of his facial bones which showed no definitive evidence for sinusitis no acute fractures seen really On patient had CT face which showed no acute facial bone fracture, no evidence of TMJ dislocation HPI: Raheem Cohn is a 48 year old male with PMH of substance use disorder who presents for a sound in his ear when he opens him mouth. Said that its not a clicking sound and that it initially sounded like a tree branch broke in his head . Endorses ear pain and that there's cracking over his nose as well. 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 Patient states that he wants another MRI because he thinks there is something wrong inside of his ear. Patient states he saw an ENT but she did all these tests and its not my ear. Patient keeps saying I am not hallucinating it . Then patient took out his bottom denture and proceeded to tell me that my my skin on my lower lip is weird, do you see that, my skin is rolling into the back of my head . While he pulled his lip inward. Patient states he takes Seroquel nightly for sleep and that he has been taking his medication. Patient denies SI, HI, AH, VH. Denies CP, SOB, fevers, chills. PMH/PSH: PAST MEDICAL HISTORY Diagnosis Date Amphetamine and other psychostimulant dependence, episodic 06/03/2007 clean 09/11, again clean since 01/2013 Anxiety state, unspecified Carpal tunnel syndrome, bilateral Chronic back pain Heart murmur child Hepatitis C Insomnia, unspecified IVDU (intravenous drug user) in past, last in 2009 Verruca vulgaris right hand PAST SURGICAL HISTORY Procedure Laterality Date ANES DX/THER NERVE BLOCK/INJECTION PRONE POS 2012 CRYOSURGERY right hand wart PAST SURGICAL HISTORY OF 1992 right hand fracture Review of Systems Physical Exam: BP 134/66 Pulse 78 Temp 36.6 ?C (97.8 ?F) Resp 20 SpO2 98% Exam: Constitutional: Nursing triage notes reviewed, Vital signs reviewed, and Alert HENT: Atraumatic, bilateral ears TM clear, no external signs of trauma, no otorrhea or hemotympanum Eyes: Normal conjunctiva Lung: No respiratory distress, speaking in full sentences Cardiac: Regular rate and rhythm Ext: Moving all 4 extremities spontaneously and appropriately. Neuro: Alert normally oriented Skin: Warm and Dry Psych: Anxious affect ED COURSE: Clinical Impressions as of 11/28/23 1542 Jaw clicking Ear pain, right Procedures MDM: See [facility] for chart review Raheem Cohn is a 48 year old male with PMH as noted above presenting to the emergency department for cracking noise in his ear. Upon presentation patient's vital signs are hemodynamically stable, saturating appropriately on RA, afebrile. Patient's physical exam as above. Bilateral TMs clear, no signs of trauma patient opening his mouth fully without difficulty. Patient has been worked up for this multiple times patient has had many visits to the ED's for this patient has had full imaging done with no signs of acute abnormalities. Patient seems to be abnormally fixated on this issue as well as his mouth skin rolling into his head , likely psych component to this complaint. At this time it was recommended to patient to follow-up with carbon plant grinder for examination of TMJ or ENT for further ear examination. Patient states he would like the information for ENT here at [facility]. Patient requesting anti-inflammatory medication given ibuprofen dose here and prescription for ibuprofen for home. (more content not included)... Normal [facility] THERAPY NTon 11-28-2023 THERAPY NT HNO ID: [id number] Author: MARKEL CALIX RRT Service: Respiratory Therapy Author Type: Respiratory Therapist Type: Therapy (PT/OT/Speech/Resp) Filed: 11/28/2023 16:01 Note Text: RESPIRATORY THERAPY PROGRESS NOTE SERVICE DATE: 11/28/2023 SERVICE TIME: 1408 CMET activated in lobby for pt c/o jaw, neck, and ear discomfort and pain. [place] arrived and pt was taken to ED for further evaluation. 11/28/23 1408 RT Rapid Response Is this a Rapid Response? Yes Rapid Response Team CMET $ CPR/Code Blue No RT medication given No Patient intubated No Patient suctioned No Blood Gases Drawn No Vitals/Oxygenation Resp 20 O2 Therapy RA Resp Assessment: Within Normal Limits (WNL): Rhythm Regular and Unlabored; No Cough or Sputum; Breath Sounds Clear All Lobes Assessment Type Rapid Response Respiratory Assessment WNL SIGNATURE: Markel Calix RRT PATIENT NAME: Raheem Crowley Cohn DATE: November 28, 2023 TIME: 2:08 PM PAGER/CONTACT #: [id number] Normal [facility] CT Neck W contrast Joe 11-06 1. No evidence of ma ss or adenopathy in the neck. 2. Moderate-severe paraseptal emphysema. [facility] EXAMINATION: CT OF THE NECK SOFT TISSUE WITH CONTRAST 11/16/2023 TECHNIQUE: CT of the neck was performed with the administration of intravenous contrast. Multiplanar reformatted images are provided for review. Automated exposure control, iterative reconstruction, and/or weight based adjustment of the mA/kV was utilized to reduce the radiation dose to as low as reasonably achievable. COMPARISON: None. HISTORY: ORDERING SYSTEM PROVIDED HISTORY: Dysphagia, unspecified type TECHNOLOGIST PROVIDED HISTORY: STAT Creatinine as needed:->No Reason for exam:->radiating neck pain to from throat to jaw, failed multiple modes of treatment What reading provider will be dictating this exam?->CRC FINDINGS: PHARYNX/LARYNX: There is no pharyngeal or laryngeal mass. SALIVARY GLANDS/THYROID: The thyroid gland is unremarkable. The submandibular glands and parotid glands are unremarkable. LYMPH NODES: No cervical or supraclavicular adenopathy. SOFT TISSUES: No areas of abnormal soft tissue swelling are identified. BRAIN/ORBITS/SINUSES: Limited images through the cerebral and cerebellar parenchyma are unremarkable. The orbits are unremarkable. The paranasal sinuses and mastoid air cells are clear. LUNG APICES/SUPERIOR MEDIASTINUM: There is moderate-severe paraseptal emphysema. No focal lung infiltrate. No superior mediastinal adenopathy. BONES: The patient is edentulous. No fracture or osseous destructive lesion. [facility] Al Arcos MD - 11/18/2023 EXAMINATION: CT OF THE NECK SOFT TISSUE WITH CONTRAST 11/16/2023 TECHNIQUE: CT of the neck was performed with the administration of intravenous contrast. Multiplanar reformatted images are provided for review. Automated exposure control, iterative reconstruction, and/or weight based adjustment of the mA/kV was utilized to reduce the radiation dose to as low as reasonably achievable. COMPARISON: None. HISTORY: ORDERING SYSTEM PROVIDED HISTORY: Dysphagia, unspecified type TECHNOLOGIST PROVIDED HISTORY: STAT Creatinine as needed:->No Reason for exam:->radiating neck pain to from throat to jaw, failed multiple modes of treatment What reading provider will be dictating this exam?->CRC FINDINGS: PHARYNX/LARYNX: There is no pharyngeal or laryngeal mass. SALIVARY GLANDS/THYROID: The thyroid gland is unremarkable. The submandibular glands and parotid glands are unremarkable. LYMPH NODES: No cervical or supraclavicular adenopathy. SOFT TISSUES: No areas of abnormal soft tissue swelling are identified. BRAIN/ORBITS/SINUSES: Limited images through the cerebral and cerebellar parenchyma are unremarkable. The orbits are unremarkable. The paranasal sinuses and mastoid air cells are clear. LUNG APICES/SUPERIOR MEDIASTINUM: There is moderate-severe paraseptal emphysema. No focal lung infiltrate. No superior mediastinal adenopathy. BONES: The patient is edentulous. No fracture or osseous destructive lesion. IMPRESSION: 1. No evidence of mass or adenopathy in the neck. 2. Moderate-severe paraseptal emphysema. [facility] CT Neck W contrast IVOrdered By: Al Arcos on 11-18-2023 [facility] Work Phone: CT Neck W contrast Joe 11-06 Radiology Study observation (narrative) [facility] CT SOFT TISSUE NECK W CONTRA STocecy 11-16-2023 CT SOFT TISSUE NECK W CONTRAST EXAMINATION: CT OF THE NECK SOFT TISSUE WITH CONTRAST 11/16/2023 TECHNIQUE: CT of the neck was performed with the administration of intravenous contrast. Multiplanar reformatted images are provided for review. Automated exposure control, iterative reconstruction, and/or weight based adjustment of the mA/kV was utilized to reduce the radiation dose to as low as reasonably achievable. COMPARISON: None. HISTORY: ORDERING SYSTEM PROVIDED HISTORY: Dysphagia, unspecified type TECHNOLOGIST PROVIDED HISTORY: STAT Creatinine as needed:->No Reason for exam:->radiating neck pain to from throat to jaw, failed multiple modes of treatment What reading provider will be dictating this exam?->CRC FINDINGS: PHARYNX/LARYNX: There is no pharyngeal or laryngeal mass. SALIVARY GLANDS/THYROID: The thyroid gland is unremarkable. The submandibular glands and parotid glands are unremarkable. LYMPH NODES: No cervical or supraclavicular adenopathy. SOFT TISSUES: No areas of abnormal soft tissue swelling are identified. BRAIN/ORBITS/SINUSES: Limited images through the cerebral and cerebellar parenchyma are unremarkable. The orbits are unremarkable. The paranasal sinuses and mastoid air cells are clear. LUNG APICES/SUPERIOR MEDIASTINUM: There is moderate-severe paraseptal emphysema. No focal lung infiltrate. No superior mediastinal adenopathy. BONES: The patient is edentulous. No fracture or osseous destructive lesion. IMPRESSION: 1. No evidence of mass or adenopathy in the neck. 2. Moderate-severe paraseptal emphysema. Interpreted by: Al Arcos MD Signed by: Al Arcos MD 11/18/23 Final result Normal [facility] [place] MODIFIED BARIUM SWALLOW W VIDEOon 11-16-2023 [place] MODIFIED BARIUM SWALLOW W VIDEO EXAMINATION: MODIFIED BARIUM SWALLOW WAS PERFORMED IN CONJUNCTION WITH SPEECH PATHOLOGY SERVICES TECHNIQUE: Under fluoroscopic evaluation cineradiography/videorad iography recordings were performed in conjunction with the speech-language pathologist (REPAIR SUPERVISOR). Various liquid, solid and/or semi-solid barium preparations were used to assess swallowing function. FLUOROSCOPY DOSE AND TYPE: Radiation Exposure Index: Kerma mGy, 2 COMPARISON: None HISTORY: ORDERING SYSTEM PROVIDED HISTORY: Dysphagia, unspecified type TECHNOLOGIST PROVIDED HISTORY: Reason for exam:->dysphagia What reading provider will be dictating this exam?->CRC FINDINGS: Dysphagia is observed IMPRESSION: Dysphagia is observed Please see separate speech pathology report for full discussion of findings and recommendations. Interpreted by: Hedy Alcantara MD Signed by: Hedy Alcantara MD 11/16/23 Final result Normal [facility] [place] ED Provider Marlene 10-28-19 [employer] Authentication Interface Message Text EMERGENCY DEPARTMENT - VISIT NOTE ------ HISTORY OF PRESENT ILLNESS -- Chief Complaint Patient presents with Jaw symptoms/complaints C/o R side jaw/head pain; pt had recent surgery 4 months ago on mouth and states he opened his mouth wide and heard a pop Nurse Receptionist: not needed - patient preferred language is Mozambican. The history is provided by the Patient. Raheem Cohn is an otherwise healthy 48 year old male who presents to the ED for jaw pain. Patient reports a several month history of right-sided jaw pain which has been constant since onset. Pain is located in his right jaw and radiates to his diffuse face and head. Pain is worse with movement of the jaw and improved with rest however never resolved. Patient states that he hears pops and knows that the tendon is ruptured. Patient states that he has seen multiple physicians for this including dentistry and ENT without relief. Patient does have an appointment with dentistry today. No fevers or chills. No difficulty swallowing or drooling. No change in voice or sore throat. Per chart review, patient with numerous emergency department visits at multiple different emergency departments for very similar symptoms. Symptoms today do not appear to be different than previous. PAST HISTORY Pertinent Past History: No past medical history on file. There is no problem list on file for this patient. Pertinent Social History: PHYSICAL EXAM BP 115/65 Pulse 74 Temp 98.5 ???F (36.9 ???C) (Oral) Resp 18 SpO2 97% General: Well appearing. No acute distress, resting comfortably. Eyes: Pupils reactive. EOMI. No discharge from eyes. ENT: No discharge from nose. OP clear. No trismus. No tenderness over the jaw including the TMJ. Bilateral TMs appear normal. Neck: Supple, trachea midline. Normal ROM. Pulmonary: Non-labored breathing. Breath sounds clear bilaterally. Cardiac: Regular rate and rhythm. No murmurs. Abdomen: Soft. Non-distended. Non-tender. Musculoskeletal: No long bone deformity. Vascular: Extremities warm and perfused. Skin: Dry, no rashes. Extremities: No peripheral edema Neuro: Alert. Moves all four extremities to command. No focal deficit ------- LABORATORY STUDIES No results found for this visit on 10/28/23. MEDICAL DECISION MAKING and ED COURSE Nursing triage and assessment notes reviewed and incorporated. Review of External (Non- ED) Notes: [facility] ED notes from 08/15, 08/31, 09/21, 10/08, 10/17 reviewed and show very similar visits for which he has undergone workup without clear etiology of his symptoms. Most notably, patient underwent CT of the facial bones on 09/21 which was negative for acute abnormalities. Outpatient MRI was recommended, has not yet been performed. Management Decisions: Diagnoses considered include TMJ, chronic otalgia, fractures, infectious etiologies including AOM vs sinusitis Office visit with ENT on 08/03 also reviewed, patient with similar symptoms at that time. It appears that MRI may have been obtained which did not show any retrocochlear pathology, patient was instructed to follow up with ENT as needed. Assessment AND Plan: Raheem Cohn is a 48 year old male who presented for the complaints listed above. Patient is well appearing with vital signs that are within normal limits. Physical exam as noted above is overall reassuring. Symptoms are most consistent with TMJ versus other chronic etiologies, patient has followed up with multiple emergency departments and ENT and has had a negative MRI in the past. Patient reports significant concerns that he needs an MRI today however there is no emergent need for MRI currently. Patient has not yet followed up with our ENT, therefore provider referral was given. Patient has an appointment with dentistry today which I instructed him to attend as scheduled. He was given Tylenol for pain and ultimately was discharged home in stable condition. ------ IMPRESSION AND DISPOSITION ---- Clinical Impression Diagnosis Comment Jaw pain [R68.31] Disposition: Home The patient has received a medical screening examination and within reasonable clinical confidence an emergency medical condition has not been identified. Counseling: Spoke with the patient and discussed today's findings, in addition to providing specific details for the plan of care and expected course. They were given the opportunity to ask questions. Discussed return precautions and importance of follow-up. Advised to follow-up with PCP and dentistry, ENT referral provided. Advised to return to the ED for changing (more content not included)... Normal [facility] [employer] [facility] [employer]orer Authentication Interface Message Text EMERGENCY DEPARTMENT - START NOTE Brief Exam in START The patient was seen by me in intake and triage for a brief history and physical obtained for triage reasons only. My exam is intended to be an initial medical screening exam for disposition within our ED with limited initial orders placed, when appropriate, to expedite care by treating team. Briefly, Raheem Cohn is a 48 year old male presents to the ED for right jaw/ear pain after yawning x4 months Pt Denies: V/D/F, HARRELL, vision change, CP/SOB, or numbness/tingling. Home Treatment: gabapentin, muscle relaxer Plan The remainder of testing, treatment, and diagnostic plan will be assumed by the next clinician who will be seeing the patient as a primary patient, ordering further testing, creating a plan and impression, and determining final disposition of the patient from the ED. I had a limited role in this case. Medications and Interventions initiated in START: none The patient is appropriate for: Enoc Rizo, [employer] Normal [facility] [employer] [facility] XR MANDIBLE (MIN 4 VIEWS)on 10-28-2023 XR MANDIBLE (MIN 4 VIEWS) EXAMINATION: FOUR XRAY VIEWS OF THE MANDIBLE 10/28/2023 5:42 pm COMPARISON: None. HISTORY: ORDERING SYSTEM PROVIDED HISTORY: R mandible pain TECHNOLOGIST PROVIDED HISTORY: Reason for exam:->R mandible pain What reading provider will be dictating this exam?->CRC FINDINGS: No evidence of mandible fracture. No evidence of dislocation at level of the temporomandibular joints. No evidence of lytic or blastic bone lesion. IMPRESSION: No acute osseous abnormality involving the mandible. Interpreted by: Gallo Mata DO Signed by: Gallo Mata DO 10/28/23 Final result Normal [facility] [place] XR Mandible 4 Viewson 2023 No acute osseous abnormality involving the mandible. [facility] EXAMINATION: FOUR XRAY VIEWS OF THE MANDIBLE 10/28/2023 5:42 pm COMPARISON: None. HISTORY: ORDERING SYSTEM PROVIDED HISTORY: R mandible pain TECHNOLOGIST PROVIDED HISTORY: Reason for exam:->R mandible pain What reading provider will be dictating this exam?->CRC FINDINGS: No evidence of mandible fracture. No evidence of dislocation at level of the temporomandibular joints. No evidence of lytic or blastic bone lesion. [facility] Gallo Mata DO - 10/28/2023 EXAMINATION: FOUR XRAY VIEWS OF THE MANDIBLE 10/28/2023 5:42 pm COMPARISON: None. HISTORY: ORDERING SYSTEM PROVIDED HISTORY: R mandible pain TECHNOLOGIST PROVIDED HISTORY: Reason for exam:->R mandible pain What reading provider will be dictating this exam?->CRC FINDINGS: No evidence of mandible fracture. No evidence of dislocation at level of the temporomandibular joints. No evidence of lytic or blastic bone lesion. IMPRESSION: No acute osseous abnormality involving the mandible. [facility] Radiology Study observation (narrative) [facility] XR Mandible 4 ViewsOrdered B y: Gallo Mata on 10-28-2023 [facility] Q[employer] Work Phone: Addendum Noteon 09-30-2023 [employer] Authentication Interface Message Text Addended by: BABS CAT on: 09/30/2023 09:01 AM Modules accepted: Orders Normal [employer] Telephone Encounteron 2023 [employer] Authentication Interface Message Text pt calling to let Dr. Bee know he has 1 tab of Tizanidine 4 mg left per visit notes on 09/24/23. will need new prescription sent to [facility] at [address] [place] [address] [facility] [id number] P: . Please call pt at [phone] when prescription has been sent. pt was unsure if will be also prescribing something else as well or instead of Tizanidine 4 mg Messaged [place] 1234pm 09/29/23 Normal [employer] Progress Noteson 09-24-2023 [employer] Authentication Interface Message Text Chief complaint - Patient presented with chief complaint: jaw sometimes pops in the right side. Complains of pain in the roof of the mouth and right ear pain every time the patient swallows, with pain that radiates to the head . History of present illness: Location - Right ear, Right TMJ, and top of the head Appearance - Distress Chronology - Months Precipitating - Function Quality - Sharp Intensity - /10 Duration - weeks months Frequency - Daily, several times during function Ameliorating - None reported Aggravating - Function Associated symptoms - Migraines Associated pains - Pain in the head (Possible Migraines) Meds - Current - for CC Meds - Past Meds - for CC Past Treatment - Imaging panoramic film: Taken and reviewed, CBCT: None Legal - No legal action in process Sleep duration: hours Sleep quality: No interruptions Social - Habits - PMH: Reviewed and reconciled with [employer]. Meds: Reviewed and reconciled with [employer]. Allergies: Reviewed and reconciled with [employer]. Family history: Reviewed and reconciled with [facility]. EXAM ROS: - CONSTITUTIONAL: Denies unintentional weight loss, fever and chills. - HEENT: Denies changes in vision and hearing. - RESPIRATORY: Denies SOB and cough. - CV: Denies palpitations and CP. - GI: Denies abdominal pain, nausea, vomiting and diarrhea. - : Denies dysuria and urinary frequency. - MSK: Denies myalgia and joint pain. - SKIN: Denies rash and pruritus. - NEUROLOGICAL: Denies headache and syncope. - PSYCHIATRIC: Denies recent changes in mood. PHYSICAL EXAM: GENERAL: Alert and oriented x 3. No acute distress. Well-nourished, well-developed. CONSTITUTIONAL: Height: 5'10 ft. weight: 180 lbs. neck size: in. Mallampati: Vitals - BP: 126/68 T: NA P: R: O2: VOICE: RESPIRATION: Breathing comfortably, no stridor. CARDIOVASCULAR: No clubbing/cyanosis/edema in hands. EYES: Extraocular movements intact, sclera normal, no scleral icterus, no lesions noted. NEURO: Detailed below. HEAD AND FACE: Symmetric facial features, no masses or lesions, sinuses nontender to palpation. SALIVARY GLANDS: Parotid and submandibular glands normal bilaterally. EARS: Normal external ears, external auditory canals, normal hearing to whispered voice. NOSE: External nose midline, anterior nasal cavity is normal with limited visualization to the anterior aspect of the interior turbinates. No lesions noted. ORAL CAVITY/OROPHARYNX/LIPS: Moist mucous membranes, no lesions noted. NECK/LYMPH NODES: No lymphadenopathy, no thyroid masses. Trachea palpably midline SKIN: Face and neck skin without scars, bruises, or injury PSYCH: Alert and oriented with appropriate mood and affect ___ DETAILED EXAM: Cranial Nerves - II through XII grossly intact Detailed CN V: sensory: R: Normal L:Normal V1-V3 Motor: R: Normal L: Normal Two point discrimination: Not done Directionality: Not done Detailed CN VII: motor R: Normal L: Normal Balance/Equilibrium - Finger to nose normal response. Romberg: not performed Neck: Cervical - NO LAD IOE- tongue scalloping present, signs of Candidiasis cheek ridging minor , wear Occlusion: Not Applicable. Edentulous patient. Vertical dimension violated Angle class R canine R molar : Patient totally edentulous L canine L molar OB/OJ: Patient Midline: Coincident. Deviated to the mm Deviation/deflection - None ROM - DAVY: mm passive: mm active: mm R lateral: mm L lateral: mm protrusion: mm Joint palpation: R TMJ dorsal:4/5 lateral:3 intrauaricular: 0 L TMJ dorsal:0/5 lateral:0 intraauricular:0 Joint sounds - R TMJ: None L TMJ: None Loading(bite stick and provocation): R TMJ: ipsilateral pain: - contralateral pain:- L TMJ: ipsilateral pain: - contralateral pain:- Occlusion: stable and reproducible Myofascial Exam - Deep masseter: R:4 /5 L:3 Superficial masseter R:4 L:3 Anterior temp R:0 L:0 Medial/post temp R:4 L:0 Frontal R:0 L:0 Medial pterygoid R:5 L:0 Lateral pterygoid R:0 L:0 Digastric Ant R:0 L:0 Digastric post: R:0 L:0 Temp tendon R:0 L:0 Occipital R:0 L:0 Splenius R:0 L:0 Scalenes R:0 L:0 Trapezius R:0 L:0 Suprascapular R:0 L:0 SCM R:0 L:0 Stylohyoid R:0 L:0 Presence of trigger areas: None Presence of ANS signs: None Impression: G44.209 Tension-type headache, 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 The patient had the mandibular anterior teeth extracted 3 months ago. 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 There is current (more content not included)... Normal [employer] CT FACIAL BONES WO CONTon CT FACIAL BONES WO CONT CT FACIAL BONES WO CONT 09/22/2023 5:37 PM:CT FACIAL BONES WO CONT INDICATION: jaw pain, eval for subluxation COMPARISON: None TECHNIQUE/PROTOCOL: Standard noncontrast images through the facial bones and sinuses obtained with reformatted coronal and sagittal images. All CT scans at this facility use dose modulation, iterative reconstruction, and/or weight based dosing when appropriate to reduce radiation dose to as low as reasonably achievable. FINDINGS: Facial Bones: No acute orbital wall fracture. No acute maxillofacial or mandible fracture. Temporal mandibular joints are located within the mandibular fossa bilaterally. Edentulous maxilla and mandible Facial Soft Tissues: Unremarkable. Paranasal Sinuses: Normal Temporal Bone and Mastoid Air Cells: Normal Orbits: Normal Included portions of the brain: Normal IMPRESSION: No acute facial bone fracture. No evidence of TMJ dislocation. If there is concern for internal derangement of the temporomandibular joint nonemergent outpatient MRI of the TMJ may be performed. Finalized by Nieves Martinez on 09/22/2023 6:00 PM Normal [facility] [place] ESOPHAGRAMon 09-20-2023 [place] ESOPHAGRAM EXAMINATION: DOUBLE CONTRAST ESOPHAGRAM 09/20/2023 9:39 am TECHNIQUE: Double contrast esophagram was performed with barium and air contrast. FLUOROSCOPY DOSE AND TYPE: Radiation Exposure Index: Kerma mGy, COMPARISON: None HISTORY: ORDERING SYSTEM PROVIDED HISTORY: Dysphagia, unspecified type TECHNOLOGIST PROVIDED HISTORY: What reading provider will be dictating this exam?->CRC FINDINGS: The esophagus is of normal caliber and demonstrates normal motility. There are no mucosal abnormalities seen. The gastroesophageal junction is normal. There is no evidence for reflux seen. IMPRESSION: Unremarkable esophagram Interpreted by: Hedy Alcantara MD Signed by: Hedy Alcantara MD 09/20/23 Final result Normal [facility] [place] XR FACIAL BONES MIN 3 VWSon 09-01-2023 XR FACIAL BONES MIN 3 VWS XR FACIAL BONES MIN 3 VWS Indication: Facial pain status post tooth extraction. TECHNIQUE: Lateral, Bartlett and Armando view of the paranasal sinuses was performed. No prior comparison. FINDINGS: No paranasal sinuses are clear. No air-fluid levels identified. No definite acute fractures seen. Mandibular condyles show a normal location. Visualized cervical spine is unremarkable. Mild findings of osteomyelitis might not be visible by plain film and would be better visualized by CT. IMPRESSION: 1. No definite evidence for sinusitis by digital plain film. No definite acute fractures seen. If there is concern for soft tissue abscess, CT facial bones with IV contrast recommended. Finalized by Sin Hoskins MD on 09/01/2023 3:23 PM Normal [facility] Laboratory - Chemistry and C hemistry - challengeon 08-25-2023 Albumin [Mass/Vol] 4.7 g/dL (4.1-5.1 ) [facility] ALP [Catalytic activity/Vol] 64 U/L (44-121 ) [facility] ALT [Catalytic activity/Vol] 110 U/L High (0-44 ) [facility] AST [Catalytic activity/Vol] 68 U/L High (0-40 ) [facility] Bilirubin [Mass/Vol] 0.3 mg/dL (0.0-1.2 ) [facility] Calcium [Mass/Vol] 9.7 mg/dL (8.7-10.2 ) Healt h [facility] Chloride [Moles/Vol] 103 mmol/L (96-106 ) [facility] CO2 [Moles/Vol] 23 mmol/L (20-29 ) [facility] Creatinine [Mass/Vol] 1.02 mg/dL (0.76-1.27 ) [facility] GFR/1.73 sq M.predicted among non-blacks MDRD (S/P/Bld) [Vol rate/Area] 91 mL/min/{1.73_m2} (>59 ) [facility] Globulin (S) [Mass/Vol] 2.9 g/dL (1.5-4.5 ) [facility] Glucose [Mass/Vol] 98 mg/dL (70-99 ) [facility] Potassium [Moles/Vol] 4.3 mmol/L (3.5-5.2 ) [facility] Protein [Mass/Vol] 7.6 g/dL (6.0-8.5 ) [facility] Sodium [Moles/Vol] 140 mmol/L (134-144 ) [facility] Urea nitrogen [Mass/Vol] 12 mg/dL (6-24 ) [facility] Urea nitrogen/Creatinine [Mass ratio] 12 mg/mg (9-20 ) [facility] Laboratory - Hematology and Cell countson 08-25-2023 Erythrocyte distribution width (RBC) [Ratio] 12.2 % (11.6-15.4 ) [facility] Hematocrit (Bld) [Volume fraction] 51.0 % (37.5-51.0 ) [facility] Hemoglobin (Bld) [Mass/Vol] 16.6 g/dL (13.0-17.7 ) [facility] MCH (RBC) [Entitic mass] 31.9 pg (26.6-33.0 ) [facility] MCHC (RBC) [Mass/Vol] 32.5 g/dL (31.5-35.7 ) [facility] MCV (RBC) [Entitic vol] 98 fL High (79-97 ) [facility] Nucleated RBC/100 WBC (Bld) [Ratio] 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 Laboratory - Miscellaneous t estson 08-25-2023 Reference Lab Test Reference Range Comment [facility] Comment on above: Note: .The quantitat kenneth range of this assay is 15 IU/mL to 100million IU/mL. No Panel Informationon 08-24 Reported Physicians See Note Jayson h [facility] Comment on above: Note: Reported Physi cians:Ordering: Colette Almaguer Test Information: Comment [facility] Comment on above: Note: .The quantitat kenneth range of this assay is 15 IU/mL to 100million IU/mL. MR Brain and Internal audito ry canal WO and W contrast Joe 07-24-2023 MRI brain and internet researcher al auditory canals: HISTORY: Left-sided sensorineural hearing loss. Multisequence multiplanar imaging of the brain was obtained to include intravenous administration of contrast and high-resolution images of the internal auditory canals. White matter signal characteristics unremarkable without evidence of chronic ischemia or demyelination. There is no susceptibility on gradient echo sequences. Flow voids are normal in caliber and contour. 7th and 8th cranial nerve complexes appear unremarkable. There is no obvious abnormality the cochlea, vestibule, or semicircular canals. The diffusion-weighted images and corresponding ADC map show no focus of diffusion restriction or acute intracranial ischemia. Cerebellar tonsils are normal position. Contrast-enhanced imaging was obtained in 3 planes showing no focus of abnormal intra-axial or extra-axial enhancement. Dural sinuses enhance normally. No obvious abnormality the internal auditory canals or cerebellopontine angles. Flow voids are normal in caliber. Sinuses appear clear. IMPRESSION: Negative exam. Finalized by Mayo Greenberg MD on 07/24/2023 12:20 PM SECTRAPA Mayo Greenberg M D - 07/24/2023 MRI brain and internal auditory canals: HISTORY: Left-sided sensorineural hearing loss. Multisequence multiplanar imaging of the brain was obtained to include intravenous administration of contrast and high-resolution images of the internal auditory canals. White matter signal characteristics unremarkable without evidence of chronic ischemia or demyelination. There is no susceptibility on gradient echo sequences. Flow voids are normal in caliber and contour. 7th and 8th cranial nerve complexes appear unremarkable. There is no obvious abnormality the cochlea, vestibule, or semicircular canals. The diffusion-weighted images and corresponding ADC map show no focus of diffusion restriction or acute intracranial ischemia. Cerebellar tonsils are normal position. Contrast-enhanced imaging was obtained in 3 planes showing no focus of abnormal intra-axial or extra-axial enhancement. Dural sinuses enhance normally. No obvious abnormality the internal auditory canals or cerebellopontine angles. Flow voids are normal in caliber. Sinuses appear clear. IMPRESSION: Negative exam. Finalized by Mayo Greenberg MD on 07/24/2023 12:[address] [facility] Radiology Study observation (narrative) [facility] MR Brain and Internal audito ry canal WO and W contrast IVOrdered By: Mayo Greenberg on 07-24-2023 [facility] Work Phone: ACUTE TOXICOLOGY PANEL, BLOO Don 09-21-2022 Acetaminophen [Mass/Vol] ug/mL Normal 10.0 - 30.0 [facility] Comment on above: Performed By: #### D RUBL #### [address] [id number] Ethanol [Mass/Vol] mg/dL Normal [facility] Comment on above: Result Comment: FOR MEDICAL USE ONLY. . REF VALUES <10 Performed By: #### D RUBL #### [address] [id number] SALICYLATE <3 Normal 4 - 20 [facility] Comment on above: Performed By: #### D RUBL #### [address] [id number] CBC AND DIFFERENTIALon 09-21 % AUTOMATED IMMATURE GRAN 0.2 % Normal 0.0 - 0.9 [facility] Comment on above: Result Comment: Tanya ture Granulocyte Count (IG) includes promyelocytes, myelocytes and metamyelocytes but does not include bands. Percent differential counts (%) should be interpreted in the context of the absolute cell counts (cells/L). Performed By: #### C BCDF #### [address] [id number] Basophils (Bld) [#/Vol] 0.03 10*3/uL Normal 0.00 - 0.10 [facility] Comment on above: Performed By: #### C BCDF #### [address] [id number] Basophils/100 WBC (Bld) 0.6 % Normal 0.0 - 2.0 [facility] Comment on above: Performed By: #### C BCDF #### [address] [id number] Eosinophils (Bld) [#/Vol] 0.09 10*3/uL Normal 0.00 - 0.70 [facility] Comment on above: Performed By: #### C BCDF #### [address] [id number] Eosinophils/100 WBC (Bld) 1.8 % Normal 0.0 - 6.0 [facility] Comment on above: Performed By: #### C BCDF #### [address] [id number] Erythrocyte distribution width (RBC) [Ratio] 12.2 % Normal 11.5 - 14.5 [facility] Comment on above: Performed By: #### C BCDF #### [address] [id number] Hematocrit (Bld) [Volume fraction] 43.7 % Normal 41.0 - 52.0 [facility] Comment on above: Performed By: #### C BCDF #### [address] [id number] Hemoglobin (Bld) [Mass/Vol] 15.6 g/dL Normal 13.5 - 17.5 [facility] Comment on above: Performed By: #### C BCDF #### [address] [id number] Lymphocytes (Bld) [#/Vol] 1.59 10*3/uL Normal 1.20 - 4.80 [facility] Comment on above: Performed By: #### C BCDF #### [address] [id number] Lymphocytes/100 WBC (Bld) 31.4 % Normal 13.0 - 44.0 [facility] Comment on above: Performed By: #### C BCDF #### [address] [id number] MCHC (RBC) [Mass/Vol] 35.7 g/dL Normal 32.0 - 36.0 [facility] Comment on above: Performed By: #### C BCDF #### [address] [id number] MCV (RBC) [Entitic vol] 94 fL Normal 80 - 100 [facility] Comment on above: Performed By: #### C BCDF #### [address] [id number] Monocytes (Bld) [#/Vol] 0.54 10*3/uL Normal 0.10 - 1.00 [facility] Comment on above: Performed By: #### C BCDF #### [address] [id number] Monocytes/100 WBC (Bld) 10.7 % Normal 2.0 - 10.0 [facility] Comment on above: Performed By: #### C BCDF #### [address] [id number] Neutrophils (Bld) [#/Vol] 2.81 10*3/uL Normal 1.20 - 7.70 [facility] Comment on above: Performed By: #### C BCDF #### [address] [id number] Neutrophils/100 WBC (Bld) 55.3 % Normal 40.0 - 80.0 [facility] Comment on above: Performed By: #### C BCDF #### [address] [id number] Platelets (Bld) [#/Vol] 156 10*3/uL Normal 150 - 450 [facility] Comment on above: Performed By: #### C BCDF #### [address] [id number] RBC 4.67 x10E12/L Normal 4.50 - 5.90 [facility] Comment on above: Performed By: #### C BCDF #### [address] [id number] WBC (Bld) [#/Vol] 5.1 10*3/uL Normal 4.4 - 11.3 [facility] Comment on above: Performed By: #### C BCDF #### [address] [id number] COMPREHENSIVE PANELon 2022 Albumin [Mass/Vol] 4.3 g/dL Normal 3.4 - 5.0 [facility] Comment on above: Performed By: #### C MP #### [address] [id number] ALP [Catalytic activity/Vol] 57 U/L Normal 33 - 120 [facility] Comment on above: Performed By: #### C MP #### [address] [id number] ALT [Catalytic activity/Vol] 85 U/L High 10 - 52 [facility] Comment on above: Result Comment: Victoria ents treated with Sulfasalazine may generate falsely decreased results for ALT. Performed By: #### C MP #### [address] [id number] Anion gap [Moles/Vol] 12 mmol/L Normal 10 - 20 [facility] Comment on above: Performed By: #### C MP #### [address] [id number] AST [Catalytic activity/Vol] 98 U/L High 9 - 39 [facility] Comment on above: Performed By: #### C MP #### [address] [id number] Bilirubin [Mass/Vol] 0.6 mg/dL Normal 0.0 - 1.2 [facility] Comment on above: Performed By: #### C MP #### [address] [id number] Calcium [Mass/Vol] 9.5 mg/dL Normal 8.6 - 10.3 [facility] Comment on above: Performed By: #### C MP #### [address] [id number] Chloride [Moles/Vol] 104 mmol/L Normal 98 - 107 [facility] Comment on above: Performed By: #### C MP #### [address] [id number] Creatinine [Mass/Vol] 0.90 mg/dL Normal 0.50 - 1.30 [facility] Comment on above: Performed By: #### C MP #### [address] [id number] eGFR MALE >90 Normal >90 [facility] Comment on above: Result Comment: CALC ULATIONS OF ESTIMATED GFR ARE PERFORMED USING THE 2020 CKD-EPI STUDY REFIT EQUATION WITHOUT THE RACE VARIABLE FOR THE IDMS-TRACEABLE CREATININE METHODS. https://jasn.asnjournals.org/content/early//ASN.36927 90376 Performed By: #### C MP #### [address] [id number] Glucose [Mass/Vol] 104 mg/dL High 74 - 99 [facility] Comment on above: Performed By: #### C MP #### [address] [id number] HCO3 (Bld) [Moles/Vol] 25 mmol/L Normal 21 - 32 [facility] Comment on above: Performed By: #### C MP #### [address] [id number] Potassium [Moles/Vol] 3.6 mmol/L Normal 3.5 - 5.3 [facility] Comment on above: Performed By: #### C MP #### [address] [id number] Protein [Mass/Vol] 7.2 g/dL Normal 6.4 - 8.2 [facility] Comment on above: Performed By: #### C MP #### [address] [id number] Sodium [Moles/Vol] 137 mmol/L Normal 136 - 145 [facility] Comment on above: Performed By: #### C MP #### [address] [id number] Urea nitrogen [Mass/Vol] 11 mg/dL Normal 6 - 23 [facility] Comment on above: Performed By: #### C MP #### [address] [id number] DRUG SCREEN,URINEon 09-22-19 23 AMPHETAMINE SCREEN,U Negative Normal NEGATIVE [facility] Comment on above: Result Comment: CUTO FF LEVEL: 500 NG/ML Cross-reactivity has been reported with high concentrations of the following drugs: buproprion, chloroquine, chlorpromazine, ephedrine, mephentermine, fenfluramine, phentermine, phenylpropanolamine, pseudoephedrine, and propranolol. Performed By: #### D RUG3 #### [address] [id number] BARBITURATES SCREEN,U Negative Normal NEGATIVE [facility] Comment on above: Result Comment: CUTO FF LEVEL: 200 NG/ML Performed By: #### D RUG3 #### [address] [id number] BENZODIAZEPINES SCREEN,U Negative Normal NEGATIVE [facility] Comment on above: Result Comment: CUTO FF LEVEL: 200 NG/ML Performed By: #### D RUG3 #### [address] [id number] CANNABINOIDS SCREEN,U Negative Normal NEGATIVE [facility] Comment on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 MCBRIDE YUN ROBERT Transcribed Date and Time: 04/02/2021 10:45 Normal [facility] Hemogram w/ Autodiffon 04-02 Abs Baso Cnt 0.0 10*3/uL Normal 0.0-0.2 [facility] Comment on above: Performed By: #### L ACT3, BMP3, HEMDF #### [facility] [address] [place] [address] Abs Neutrophile Cnt 1.7 10*3/uL Low 1.8-7.0 [facility] Comment on above: Performed By: #### L ACT3, BMP3, HEMDF #### [facility] [address] [place] [address] Basophils/100 WBC (Bld) 1.3 % Normal 0.0-2.0 [facility] Comment on above: Performed By: #### L ACT3, BMP3, HEMDF #### [facility] [address] [place] [address] Eosinophils (Bld) [#/Vol] 0.1 10*3/uL Normal 0.0-0.5 [facility] Comment on above: Performed By: #### L ACT3, BMP3, HEMDF #### [facility] [address] [place] [address] Eosinophils/100 WBC (Bld) 3.3 % Normal 1.0-6.0 [facility] Comment on above: Performed By: #### L ACT3, BMP3, HEMDF #### [facility] [address] [place] [address] Erythrocyte distribution width (RBC) [Ratio] 13.7 % Normal 11.5-14.5 [facility] Comment on above: Performed By: #### L ACT3, BMP3, HEMDF #### [facility] [address] [place] [address] Granulocytes/100 WBC (Bld) 44.5 % Normal 40.0-80.0 [facility] Comment on above: Performed By: #### L ACT3, BMP3, HEMDF #### [facility] [address] [place] [address] Hematocrit (Bld) [Volume fraction] 45.2 % Normal 40.0-52.0 [facility] Comment on above: Performed By: #### L ACT3, BMP3, HEMDF #### [facility] [address] [place] [address] Hemoglobin (Bld) [Mass/Vol] 15.6 g/dL Normal 13.0-18.0 [facility] Comment on above: Performed By: #### L ACT3, BMP3, HEMDF #### [facility] [address] [place] [address] Lymphocytes (Bld) [#/Vol] 1.6 10*3/uL Normal 1.0-4.3 [facility] Comment on above: Performed By: #### L ACT3, BMP3, HEMDF #### [facility] [address] [place] [address] Lymphocytes/100 WBC (Bld) 42.8 % High 20.0-40.0 [facility] Comment on above: Performed By: #### L ACT3, BMP3, HEMDF #### [facility] [address] [place] [address] MCH (RBC) [Entitic mass] 33.9 pg Normal 26.0-34.0 [facility] Comment on above: Performed By: #### L ACT3, BMP3, HEMDF #### [facility] [address] [place] [address] MCHC 34.6 % Normal 32.0-36.0 [facility] Comment on above: Performed By: #### L ACT3, BMP3, HEMDF #### [facility] [address] [place] [address] MCV (RBC) [Entitic vol] 98.1 fL High 80.0-98.0 [facility] Comment on above: Performed By: #### L ACT3, BMP3, HEMDF #### [facility] [address] [place] [address] Monocytes (Bld) [#/Vol] 0.3 10*3/uL Normal 0.0-0.8 [facility] Comment on above: Performed By: #### L ACT3, BMP3, HEMDF #### [facility] [address] [place] [address] Monocytes/100 WBC (Bld) 8.1 % Normal 2.0-10.0 [facility] Comment on above: Performed By: #### L ACT3, BMP3, HEMDF #### [facility] [address] [place] [address] Platelet mean volume (Bld) [Entitic vol] 7.3 fL Low 7.4-10.4 [facility] Comment on above: Performed By: #### L ACT3, BMP3, HEMDF #### [facility] [address] [place] [address] Platelets (Bld) [#/Vol] 132 10*3/uL Low 140-440 [facility] Comment on above: Performed By: #### L ACT3, BMP3, HEMDF #### [facility] [address] [place] [address] RBC (Bld) [#/Vol] 4.61 10*6/uL Normal 4.40-5.90 [facility] Comment on above: Performed By: #### L ACT3, BMP3, HEMDF #### [facility] [address] [place] [address] WBC (Bld) [#/Vol] 3.7 10*3/uL Normal 3.6-10.7 [facility] Comment on above: Performed By: #### L ACT3, BMP3, HEMDF #### [facility] [address] [place] [address] Lactic Acidon 04-02-2021 Lactate [Moles/Vol] 1.1 mmol/L Normal 0.7-2.0 [facility] Comment on above: Performed By: #### L ACT3, BMP3, HEMDF #### [facility] [address] [place] [address] Hepatitis C Genotypeon 10-06 Hepatitis C Genotype 1a or 1b Normal [facility] Comment on above: Result Comment: Haim ot be further subtyped into Type 1a or Type 1b due to high conservation of the 5' untranslated region of the HCV genome. In addition, Type 6 virus may be misclassified as Type 1 in some cases. The Hepatitis C Virus High-Resolution Genotype by Sequencing test ([facility] test code [id number]) provides a higher level of subtype resolution. INTERPRETIVE INFORMATION: Hepatitis C Genotyping Hepatitis C Viral RNA is tested using reverse regional sales trainer polymerase chain reaction (RT-PCR) to amplify a specific portion of the 5' untranslated region (5' UTR) of the viral genome. The amplified nucleic acid is sequenced bi-directionally using dye-terminator chemistry ([employer]). Sequencing data is compared to a database of characterized sequences. Isolates of hepatitis C virus are grouped into six major genotypes (1-6). These genotypes are subtyped according to sequence characteristics. Due to high conservation of the 5' un-translated region of the HCV genome, this test has limitations in differentiating subtype 1a from 1b. Therefore, these subtypes will be reported as 1a or 1b. In rare instances, Type 6 virus may be misclassified as Type 1. This test was developed and its performance characteristics determined by [facility]. It has not been cleared or approved by the [place] Food and Drug Administration. This test was performed in a CLIA certified laboratory and is intended for clinical purposes. Performed By: [facility] [address] [place] [id number] [employer] Developer: Nany Salamanca MD Performed By: #### H IV4, HCVQ, LIPD2, HEMDF, CMP3 #### [address] [address] #### TSTMO, HPCGO #### The performing lab is in the report. Testo,Free/Total-Maleon 07-3 SHBG 186 nmol/L High 11-80 [facility] Comment on above: Result Comment: REFE RENCE INTERVAL: Sex Hormone Binding Globulin Access complete set of age- and/or gender-specific reference intervals for this test in the [facility] Test Directory ([address]). Performed By: #### H IV4, HCVQ, LIPD2, HEMDF, CMP3 #### [address] [id number] #### TSTMO, HPCGO #### The performing lab is in the report. Testosterone [Mass/Vol] ng/dL High 300-890 [facility] Comment on above: Result Comment: REFE RENCE INTERVAL: Testosterone, Adult Male Access complete set of age- and/or gender-specific reference intervals for this test in the [facility] Test Directory ([address]). Performed By: #### H IV4, HCVQ, LIPD2, HEMDF, CMP3 #### [address] #### TSTMO, HPCGO #### The performing lab is in the report. Testosterone, % Free See Note Normal 1.6-2.9 [facility] Comment on above: Result Comment: The percent Free Testosterone result is greater than 0.6 percent. Performed By: [facility] [address] [place] [id number] Enterprise [employer] Developer: Nany Salamanca MD Performed By: #### H IV4, HCVQ, LIPD2, HEMDF, CMP3 #### [address] #### TSTMO, HPCGO #### The performing lab is in the report. Testosterone, Free Calc See Note Normal 47-244 [facility] Comment on above: Result Comment: The Free Testosterone result is greater than 88 pg/mL. INTERPRETIVE INFORMATION: Testosterone, Free Robby Stage IV 35 - 169 pg/mL Robby Stage V 41 - 239 pg/mL The concentration of Free Testosterone is derived from a mathematical expression based on the constant for the binding of testosterone to Sex Hormone Binding Globulin (SHBG). Access complete set of age- and/or gender-specific reference intervals for this test in the [facility] Test Directory ([address]). Performed By: #### H IV4, HCVQ, LIPD2, HEMDF, CMP3 #### [address] #### TSTMO, HPCGO #### The performing lab is in the report. Hepatitis C RNA Quanton 07-2 Hep C RNA Quant (log) 5.86 {Log_IU} Abnormal <1.18 [facility] Comment on above: Performed By: #### H IV4, HCVQ, LIPD2, HEMDF, CMP3 #### [address] #### TSTMO, HPCGO #### The performing lab is in the report. Hepatitis C RNA Quant [id number] [IU]/mL Abnormal <15 [facility] Comment on above: Performed By: #### H IV4, HCVQ, LIPD2, HEMDF, CMP3 #### [facility] [address] [place] [id number] #### TSTMO, HPCGO #### The performing lab is in the report. CBC Auto DifferentialOrdered By: Mechelle Reardon on 10-02-2020 Absolute Baso # 0.0 10*3/uL 0.0 - 0.2 10*3/uL [employer] Work Phone: 1 Absolute Neut # 1.8 10*3/uL 1.8 - 7.0 10*3/uL [employer] Work Phone: Basophils/100 WBC (Bld) 0.7 % 0.0 - 2.0 % [employer] Work Phone: Eosinophils (Bld) [#/Vol] 0.1 10*3/uL 0.0 - 0.5 10*3/uL [employer] Work Phone: Eosinophils/100 WBC (Bld) 3.3 % 1.0 - 6.0 % [employer] Work Phone: Granulocytes/100 WBC (Bld) 42.1 % 40.0 - 80.0 % [employer] Work Phone: Hematocrit (Bld) [Volume fraction] 47.0 % 40.0 - 52.0 % [employer] Work Phone: Hemoglobin.gastrointes tinal spec 1 Ql (Stl) 16.1 g/dL 13.0 - 18.0 g/dL [employer] Work Phone: Interpretation and review of laboratory results Abnormal [employer] Work Phone: Lymphocytes (Bld) [#/Vol] 1.9 10*3/uL 1.0 - 4.3 10*3/uL [employer] Work Phone: Lymphocytes/100 WBC (Bld) 45.4 % High 20.0 - 40.0 % [employer] Work Phone: MCH (RBC) [Entitic mass] 33.9 pg 26.0 - 34.0 pg [employer] Work Phone: 1( MCHC (RBC) [Mass/Vol] 34.3 % 32.0 - 36.0 % [facility] Work Phone: MCV (RBC) [Entitic vol] 98.7 fL High 80.0 - 98.0 fL [employer] Work Phone: Monocytes (Bld) [#/Vol] 0.4 10*3/uL 0.0 - 0.8 10*3/uL [employer] Work Phone: Monocytes/100 WBC (Bld) 8.5 % 2.0 - 10.0 % [facility] Work Phone: Platelet distribution width (Bld) [Ratio] 14.3 % 11.5 - 14.5 % [facility] Work Phone: Platelet mean volume (Bld) [Entitic vol] 8.6 fL 7.4 - 10.4 fL [facility] Work Phone: Platelets (Bld) [#/Vol] 134 10*3/uL Low 140 - 440 10*3/uL [employer] Work Phone: RBC (Bld) [#/Vol] 4.76 10*6/uL 4.40 - 5.9 0 10*6/uL [facility] Work Phone: WBC (Bld) [#/Vol] 4.2 10*3/uL 3.6 - 10.7 10*3/uL [facility] Work Phone: Test Performed by [facility] [employer] [facility], [address] [place] [id number] [facility] Work Phone: [facility] Work Phone: Comp Metabolic Panelon 10-02 ALP [Catalytic activity/Vol] 49 U/L Normal 38-126 [facility] [employer] [facility] Comment on above: Performed By: #### H IV4, HCVQ, LIPD2, HEMDF, CMP3 #### [facility] [address] [place] [id number] #### TSTMO, HPCGO #### The performing lab is in the report. ALT [Catalytic activity/Vol] 107 U/L High 0-49 [facility] Comment on above: Result Comment: The ALT test is performed by an updated assay method. Please note that the reference intervals have been changed and are now sex specific. Performed By: #### H IV4, HCVQ, LIPD2, HEMDF, CMP3 #### [place] [address] [place], [place] #### TSTMO, HPCGO #### The performing lab is in the report. Calcium [Mass/Vol] 9.5 mg/dL Normal 8.4-10.4 [facility] Comment on above: Performed By: #### H IV4, HCVQ, LIPD2, HEMDF, CMP3 #### [address] #### TSTMO, HPCGO #### The performing lab is in the report. Anion gap [Moles/Vol] 7 mmol/L Normal 3-13 [facility] Comment on above: Performed By: #### H IV4, HCVQ, LIPD2, HEMDF, CMP3 #### [address] #### TSTMO, HPCGO #### The performing lab is in the report. AST [Catalytic activity/Vol] 79 U/L High 15-46 [facility] Comment on above: Performed By: #### H IV4, HCVQ, LIPD2, HEMDF, CMP3 #### [address] #### TSTMO, HPCGO #### The performing lab is in the report. Bilirubin [Mass/Vol] 0.8 mg/dL Normal 0.2-1.3 [facility] Comment on above: Performed By: #### H IV4, HCVQ, LIPD2, HEMDF, CMP3 #### [address] #### TSTMO, HPCGO #### The performing lab is in the report. CO2 [Moles/Vol] 30 mmol/L Normal 22-30 [facility] Comment on above: Performed By: #### H IV4, HCVQ, LIPD2, HEMDF, CMP3 #### [address] #### TSTMO, HPCGO #### The performing lab is in the report. Creatinine [Mass/Vol] 0.80 mg/dL Normal 0.52-1.25 [facility] Comment on above: Performed By: #### H IV4, HCVQ, LIPD2, HEMDF, CMP3 #### [address] #### TSTMO, HPCGO #### The performing lab is in the report. eGFR OTHER > 90.0 Normal >60 [facility] Comment on above: Result Comment: KDIG O guidelines provide the following GFR categories: Stage GFR(ml/min/1.73 m2) Terms G1 >=90 Normal or high G2 60-89 Mildly decreased* G3a 45-59 Mildly to moderately decreased G3b 30-44 Moderately to severely decreased G4 15-29 Severely decreased G5 <15 Kidney failure *Relative to young adult level. In the absence of evidence of kidney damage, neither GFR category G1 nor G2 fulfill the criteria for CKD. The CKD-EPI equation is validated in individuals 18 years of age and older. Currently the best equation for estimating glomerular filtration rate (GFR) from serum creatinine in children is the Bedside Child equation. It is less accurate in patients with extremes of muscle mass, restriction of dietary protein, ingestion of creatine, extra-renal metabolism of creatinine, or treatment with medications that affect renal tubular creatinine secretion. Performed By: #### H IV4, HCVQ, LIPD2, HEMDF, CMP3 #### [address] #### TSTMO, HPCGO #### The performing lab is in the report. GFR/1.73 sq M.predicted among blacks MDRD (S/P/Bld) [Vol rate/Area] mL/min/{1.73_m2} Normal >60 [facility] Comment on above: Performed By: #### H IV4, HCVQ, LIPD2, HEMDF, CMP3 #### [address] [place] #### TSTMO, HPCGO #### The performing lab is in the report. Glucose [Mass/Vol] 83 mg/dL Normal 70-100 [facility] Comment on above: Performed By: #### H IV4, HCVQ, LIPD2, HEMDF, CMP3 #### [place] [address] [place], [place] #### TSTMO, HPCGO #### The performing lab is in the report. Protein [Mass/Vol] 8.1 g/dL Normal 6.3-8.2 [facility] Comment on above: Performed By: #### H IV4, HCVQ, LIPD2, HEMDF, CMP3 #### [address] #### TSTMO, HPCGO #### The performing lab is in the report. Urea nitrogen [Mass/Vol] 8 mg/dL Normal 7-20 [facility] Comment on above: Performed By: #### H IV4, HCVQ, LIPD2, HEMDF, CMP3 #### [address] #### TSTMO, HPCGO #### The performing lab is in the report. Chloride [Moles/Vol] 102 mmol/L Normal 98-107 [facility] Comment on above: Performed By: #### H IV4, HCVQ, LIPD2, HEMDF, CMP3 #### [place] [address] [place], [place] #### TSTMO, HPCGO #### The performing lab is in the report. Potassium [Moles/Vol] 4.2 mmol/L Normal 3.5-5.1 [facility] Comment on above: Performed By: #### H IV4, HCVQ, LIPD2, HEMDF, CMP3 #### [address] #### TSTMO, HPCGO #### The performing lab is in the report. Sodium [Moles/Vol] 139 mmol/L Normal 135-145 [facility] Comment on above: Performed By: #### H IV4, HCVQ, LIPD2, HEMDF, CMP3 #### [address] [phone] #### TSTMO, HPCGO #### The performing lab is in the report. Albumin [Mass/Vol] 4.6 g/dL Normal 3.5-5.0 [facility] Comment on above: Performed By: #### H IV4, HCVQ, LIPD2, HEMDF, CMP3 #### [facility] [address] [place] [address] #### TSTMO, HPCGO #### The performing lab is in the report. Comprehensive Metabolic Pane lOrdered By: Mechelle Reardon on 10-02-2020 Albumin [Mass/Vol] 4.6 g/dL 3.5 - 5.0 g/dL [facility] Work Phone: [phone] (Bld) [Catalytic activity/Vol] 49 U/L 38 - 126 U/L [facility] Work Phone: ALT [Catalytic activity/Vol] 107 U/L High 0 - 49 U/L [facility] Work Phone: Comment on above: The ALT test is perf ormed by an updated assay method. Please note that the reference intervals have been changed and are now sex specific. Anion gap [Moles/Vol] 7 mmol/L 3 - 13 mmol/L [employer] Work Phone: [phone] [Catalytic activity/Vol] 79 U/L High 15 - 46 U/L [facility] Work Phone: Bilirubin [Mass/Vol] 0.8 mg/dL 0.2 - 1 .3 mg/dL [employer] Work Phone: Calcium [Mass/Vol] 9.5 mg/dL 8.4 - 10. 4 mg/dL [facility] Work Phone: Chloride [Moles/Vol] 102 mmol/L 98 - 10 7 mmol/L [employer] Work Phone: CO2 [Moles/Vol] 30 mmol/L 22 - 30 mmol/L [facility] Work Phone: [phone] Creatinine [Mass/Vol] 0.8 mg/dL 0.52 - 1.25 mg/dL [facility] Work Phone: [phone] EGFR IF NonAfrican Ethiopian >90.0 >60 mL/min [facility] Work Phone: Comment on above: KDIGO guidelines pro vide the following GFR categories: Stage GFR(ml/min/1.73 m2) Terms G1 >=90 Normal or high G2 60-89 Mildly decreased* G3a 45-59 Mildly to moderately decreased G3b 30-44 Moderately to severely decreased G4 15-29 Severely decreased G5 <15 Kidney failure *Relative to young adult level. In the absence of evidence of kidney damage, neither GFR category G1 nor G2 fulfill the criteria for CKD. The CKD-EPI equation is validated in individuals 18 years of age and older. Currently the best equation for estimating glomerular filtration rate (GFR) from serum creatinine in children is the Bedside Child equation. It is less accurate in patients with extremes of muscle mass, restriction of dietary protein, ingestion of creatine, extra-renal metabolism of creatinine, or treatment with medications that affect renal tubular creatinine secretion. Free PSA/Total PSA [Mass fraction] 8.1 g/dL 6.3 - 8.2 g/dL [facility] Work Phone: [phone] GFR/1.73 sq M.predicted among blacks MDRD (S/P/Bld) [Vol rate/Area] mL/min/{1.73_m2} >60 mL/min [facility] Work Phone: [phone] Glucose [Mass/Vol] 83 mg/dL 70 - 100 mg/dL [facility] Work Phone: [phone] Potassium [Moles/Vol] 4.2 mmol/L 3.5 - 5.1 mmol/L [facility] Work Phone: [phone] Sodium [Moles/Vol] 139 mmol/L 135 - 145 mmol/L [facility] Work Phone: [phone] Urea nitrogen (BldV) [Mass/Vol] 8 mg/dL 7 - 20 mg/dL [facility] Work Phone: [phone] HIV 1,2 Ab; p24 Agon 07-28-2 021 HIV 1,2 Ab; p24 Ag Non-Reactive Normal Nonreactive [facility] Comment on above: Result Comment: The specimen was non-reactive for HIV-1 and HIV-2 antibodies and p24 antigen using an FDA-cleared 4th generation HIV test. Based on this non-reactive screen result, further reflexive testing was not indicated and was, therefore, not performed. Performed By: #### H IV4, HCVQ, LIPD2, HEMDF, CMP3 #### [address] [phone] #### TSTMO, HPCGO #### The performing lab is in the report. HIV ScreenOrdered By: Mechelle Reardon on 10-02-2020 HIV 1+2 AB+[id number] AG, EIA Non-Reactive Nonreactive NA [facility] Work Phone: Comment on above: The specimen was non -reactive for HIV-1 and HIV-2 antibodies and p24 antigen using an FDA-cleared 4th generation HIV test. Based on this non-reactive screen result, further reflexive testing was not indicated and was, therefore, not performed. Test Performed by [facility], [address] [place] [address] Work Phone: [facility] Work Phone: Hemogram w/ Autodiffon 10-02 Abs Baso Cnt 0.0 10*3/uL Normal 0.0-0.2 [facility] Comment on above: Performed By: #### H IV4, HCVQ, LIPD2, HEMDF, CMP3 #### [address] #### TSTMO, HPCGO #### The performing lab is in the report. Abs Neutrophile Cnt 1.8 10*3/uL Normal 1.8-7.0 [facility] Comment on above: Performed By: #### H IV4, HCVQ, LIPD2, HEMDF, CMP3 #### [address] [id number] #### TSTMO, HPCGO #### The performing lab is in the report. Basophils/100 WBC (Bld) 0.7 % Normal 0.0-2.0 [facility] Comment on above: Performed By: #### H IV4, HCVQ, LIPD2, HEMDF, CMP3 #### [address] #### TSTMO, HPCGO #### The performing lab is in the report. Eosinophils (Bld) [#/Vol] 0.1 10*3/uL Normal 0.0-0.5 [facility] Comment on above: Performed By: #### H IV4, HCVQ, LIPD2, HEMDF, CMP3 #### [address] #### TSTMO, HPCGO #### The performing lab is in the report. Eosinophils/100 WBC (Bld) 3.3 % Normal 1.0-6.0 [facility] Comment on above: Performed By: #### H IV4, HCVQ, LIPD2, HEMDF, CMP3 #### [address] #### TSTMO, HPCGO #### The performing lab is in the report. Erythrocyte distribution width (RBC) [Ratio] 14.3 % Normal 11.5-14.5 [facility] Comment on above: Performed By: #### H IV4, HCVQ, LIPD2, HEMDF, CMP3 #### [address] #### TSTMO, HPCGO #### The performing lab is in the report. Granulocytes/100 WBC (Bld) 42.1 % Normal 40.0-80.0 [facility] Comment on above: Performed By: #### H IV4, HCVQ, LIPD2, HEMDF, CMP3 #### [address] #### TSTMO, HPCGO #### The performing lab is in the report. Hematocrit (Bld) [Volume fraction] 47.0 % Normal 40.0-52.0 [facility] Comment on above: Performed By: #### H IV4, HCVQ, LIPD2, HEMDF, CMP3 #### [place] [address] [address] [place], [place] #### TSTMO, HPCGO #### The performing lab is in the report. Hemoglobin (Bld) [Mass/Vol] 16.1 g/dL Normal 13.0-18.0 [facility] Comment on above: Performed By: #### H IV4, HCVQ, LIPD2, HEMDF, CMP3 #### [place] [address] [place], [place] #### TSTMO, HPCGO #### The performing lab is in the report. Lymphocytes (Bld) [#/Vol] 1.9 10*3/uL Normal 1.0-4.3 [facility] Comment on above: Performed By: #### H IV4, HCVQ, LIPD2, HEMDF, CMP3 #### [address] #### TSTMO, HPCGO #### The performing lab is in the report. Lymphocytes/100 WBC (Bld) 45.4 % High 20.0-40.0 [facility] Comment on above: Performed By: #### H IV4, HCVQ, LIPD2, HEMDF, CMP3 #### [place] [address] [place], [place] #### TSTMO, HPCGO #### The performing lab is in the report. MCH (RBC) [Entitic mass] 33.9 pg Normal 26.0-34.0 [facility] Comment on above: Performed By: #### H IV4, HCVQ, LIPD2, HEMDF, CMP3 #### [address] #### TSTMO, HPCGO #### The performing lab is in the report. MCHC 34.3 % Normal 32.0-36.0 [facility] Comment on above: Performed By: #### H IV4, HCVQ, LIPD2, HEMDF, CMP3 #### [address] #### TSTMO, HPCGO #### The performing lab is in the report. MCV (RBC) [Entitic vol] 98.7 fL High 80.0-98.0 [facility] Comment on above: Performed By: #### H IV4, HCVQ, LIPD2, HEMDF, CMP3 #### [address] #### TSTMO, HPCGO #### The performing lab is in the report. Monocytes (Bld) [#/Vol] 0.4 10*3/uL Normal 0.0-0.8 [facility] Comment on above: Performed By: #### H IV4, HCVQ, LIPD2, HEMDF, CMP3 #### [address] #### TSTMO, HPCGO #### The performing lab is in the report. Monocytes/100 WBC (Bld) 8.5 % Normal 2.0-10.0 [facility] Comment on above: Performed By: #### H IV4, HCVQ, LIPD2, HEMDF, CMP3 #### [address] #### TSTMO, HPCGO #### The performing lab is in the report. Platelet mean volume (Bld) [Entitic vol] 8.6 fL Normal 7.4-10.4 [facility] Comment on above: Performed By: #### H IV4, HCVQ, LIPD2, HEMDF, CMP3 #### [address] #### TSTMO, HPCGO #### The performing lab is in the report. Platelets (Bld) [#/Vol] 134 10*3/uL Low 140-440 [facility] Comment on above: Performed By: #### H IV4, HCVQ, LIPD2, HEMDF, CMP3 #### [address] #### TSTMO, HPCGO #### The performing lab is in the report. RBC (Bld) [#/Vol] 4.76 10*6/uL Normal 4.40-5.90 [facility] Comment on above: Performed By: #### H IV4, HCVQ, LIPD2, HEMDF, CMP3 #### [place] [address] [address] [place], [place] #### TSTMO, HPCGO #### The performing lab is in the report. WBC (Bld) [#/Vol] 4.2 10*3/uL Normal 3.6-10.7 [facility] Comment on above: Performed By: #### H IV4, HCVQ, LIPD2, HEMDF, CMP3 #### [place] [address] [place], [place] #### TSTMO, HPCGO #### The performing lab is in the report. Hepatitis C RNA Quanton - Note Interpretation Normal [facility] Comment on above: Result Comment: The linear detection limit for this assay is 15 HCV IU/ml. A result of <15 IU (<1.18 log IU) indicates that HCV was detected, but at a level below the linear cutoff. A result of None Detected means that no HCV RNA was detected. Performed By: #### H IV4, HCVQ, LIPD2, HEMDF, CMP3 #### [place] [address] [address] [place], [place] #### TSTMO, HPCGO #### The performing lab is in the report. Lipid Panelon 10-02-2020 Chol/HDL 3 Normal [facility] Comment on above: Result Comment: Ref Range: < 3 Low Risk for CHD 3-6 Mod Risk for CHD > 6 High Risk for CHD Performed By: #### H IV4, HCVQ, LIPD2, HEMDF, CMP3 #### [place] [address] [address] [place], [place] #### TSTMO, HPCGO #### The performing lab is in the report. Cholesterol in HDL [Mass/Vol] 55 mg/dL Normal 40-60 [facility] Comment on above: Performed By: #### H IV4, HCVQ, LIPD2, HEMDF, CMP3 #### [place] [address] [address] [place], [place] #### TSTMO, HPCGO #### The performing lab is in the report. Low Density Lipoprotein 107 mg/dL Abnormal <100 [facility] Comment on above: Performed By: #### H IV4, HCVQ, LIPD2, HEMDF, CMP3 #### [place] [address] [address] [place], [place] #### TSTMO, HPCGO #### The performing lab is in the report. Triglyceride [Mass/Vol] 97 mg/dL Normal <150 [facility] Comment on above: Performed By: #### H IV4, HCVQ, LIPD2, HEMDF, CMP3 #### [place] [address] [address] [place], [place] #### TSTMO, HPCGO #### The performing lab is in the report. Cholesterol [Mass/Vol] 181 mg/dL Normal < 200 [facility] Comment on above: Performed By: #### H IV4, HCVQ, LIPD2, HEMDF, CMP3 #### [facility] [address] [place], [place] #### TSTMO, HPCGO #### The performing lab is in the report. Lipid PanelOrdered By: Mechelle Reardon on 10-02-2020 Cholesterol [Mass/Vol] 181 mg/dL <200 [facility] Work Phone: Cholesterol in HDL [Mass/Vol] 55 mg/dL 40 - 60 mg/dL [facility] Work Phone: [phone] Cholesterol in LDL [Mass/Vol] 107 mg/dL Abnormal <100 [facility] Work Phone: [phone] Cholesterol.total/Chol esterol in HDL [Mass ratio] 3 {ratio} [facility] Work Phone: Comment on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 EMERGENCY DEPARTMENT [id number]/18/2018 07:11 Primary DOC Guide - E. Family ViolenceAssessment 10/23/2017 07:12 DGPWithin the past year, has anyone ever pushed, shoved,slapped, choked, hit, punched or kicked you: NoWithin the past year, has anyone ever pressured orforced you to have sexual activities when you did not wantto: NoDo you feel safe and well cared for: YesIs there a partner from a previous or currentrelationship that is making you feel unsafe now: NoFamily Violence Clinical Observation All Negative [id number]/23/2017 09:01 Admit/Discharge - Ambulated withsteady gait home 10/23/2017 09:02 DGP10/23/2017 09:02 Admit/Discharge - Discharge infomationreviewed with pt 10/23/2017 09:02 DG10/23/2017 09:02 Admit/Discharge - Dischargeinstruction reviewed 10/23/2017 09:02 DGP M EDICATIONS ==IV I AND O VITALS= VS-RO UTINE Time: 10/23/2017 06:55B/P: 122/86 - Right Upper Arm - Sitting - MachinePulse: 102 - Monitor Resp: 16Sa02: 99 Room Air Temp: 98.20 F - Oral10/23/2017 07:03 JBFVS-Pain Time: 10/23/2017 06:55 Pain Level: 07:03 JBFVS-GCS Time: 10/23/2017 06:55 Visual: 4 Verbal: 5 Motor:6 GCS Total: 10/23/2017 07:03 JBFVS-HT/WT Time: 10/23/2017 06:55 Ht: 70 in. StatedWeight: 155 lbs Actual 10/23/2017 07:03 JBFVS-Visual Time: 10/23/2017 06:55 10/23/2017 07:03 JBF [facility] PATIENT NAME: RAHEEM COHN [facility] [address] Alexis MEDICAL REC #: [id number], [place] [address] DEPARTMENT CHART EMERGENCY DEPARTMENT PHYSICIANVS-FHT Time: 10/23/2017 06:55 10/23/2017 07:03JBFVS-Notes Time: 10/23/2017 06:55 map 101 10/23/201707:03 JBFVS-ROUTINE Time: 10/23/2017 09:00B/P: 118/80 - Right Upper Arm - Lying - Machine Pulse:94 - Monitor Resp: 16Sa02: 99 Room Air 10/23/2017 09:01 DGPVS-Pain Time: 10/23/2017 09:00 Pain Level: 09:01 DGPVS-GCS Time: 10/23/2017 09:00 Visual: 4 Verbal: 5 Motor:6 GCS Total: 15 10/23/2017 09:01 DGPVS-HT/WT Time: 10/23/2017 09:00 10/23/2017 09:01 DGPVS-Visual Time: 10/23/2017 09:00 10/23/2017 09:01 DGPVS-FHT Time: 10/23/2017 09:00 10/23/2017 09:01DGPVS-Notes Time: 10/23/2017 09:00 map 93 10/23/201709:01 DGP O RDERS =Discharge patient 10/23/2017 08:28N/AOrdered: 10/23/2017 07:54 By . OtherReviewed: 10/23/2017 08:28 By . OtherConsult Psych Triage 10/23/2017 08:05N/AOrdered: 10/23/2017 07:31 By Francois BarrowCompleted Time: 10/23/2017 08:05 By Francois Barrow =DISCHARGE ======Diagnosis: Depression, History of drug abuse10/23/2017 08:28CANCELLED DIAGNOSESDiagnosis Name: Depression, History of drug abuseDisposition: Time: 10/23/2017 07:54By: Francois BarrowDischarge Time: 10/23/2017 09:02Type: DischargeCondition: Stable for admission/discharge/wiggins sfer [facility] PATIENT NAME: RAHEEM COHN [id number] [facility] [address] REC #: [id number], [place] [address] DEPARTMENT CHART EMERGENCY DEPARTMENT PHYSICIANafter emergency evaluation/treatment Category: *NOTAPPLICABLEConcurred: 10/23/2017 08:28 Referral:10/23/2017 08:28Admit Physician: . Other =PRESCRIPTIONS ======CHARGES =====SIGNATURE Nanymaya BURR [facility] PATIENT NAME: RAHEEM COHN [id number] [facility] [address] Alexis MEDICAL REC #: [id number], [place] [address] DEPARTMENT CHART EMERGENCY DEPARTMENT PHYSICIAN Normal [facility] ED Documentation This is a preliminar y report only, as the practitioner review and authentication has not occurred. [facility] Downtime Reporton 08-25-2017 Downtime Report [facility] [id number] [place] [address]Fnhkfynu ReportMR#: [id number] Acct: [id number]: RAHEEM COHN Rep #: [id number]: 1975 42 From: [facility] Moran [facility] Status: DEP ERThis patient was seen during an EMR downtime August 09, 2017 - August 16, 2017. This patient mayhave a combination of paper and electronic documentation or all paper documentation. Alldocumentation is viewable within the e-chart portion of [employer] for each patient visit. Normal [facility] Vital Signs Date Time Vital Sign Value Performing Clinician Facility 08-18-2024 10:090400 Body mass index (BMI) [Ratio] 26.83 kg/m2 Carrington Fritz MD Work Phone: [facility] 08-18-2024 10:090400 Body weight 84.82 kg Carrington Fritz MD Work Phone: [facility] 08-18-2024 10:09-0400 Diastolic blood pressure 82 mm[Hg] Carrington Fritz MD Work Phone: [facility] 08-18-2024 10:09-0400 Heart rate 92 /min Carrington Fritz MD Work Phone: [facility] 08-18-2024 10:09-0400 Systolic blood pressure 119 mm[Hg] Carrington Fritz MD Work Phone: [facility] 08-15-2024 10:57-0400 Diastolic blood pressure 85 mm[Hg] Gold BRISENO Work Phone: [facility] 08-15-2024 10:57-0400 Heart rate 80 /min Gold BRISENO Work Phone: [facility] 08-15-2024 10:57-0400 Respiratory rate 18 /min Gold BRISENO Work Phone: [facility] 08-15-2024 10:57-0400 SaO2% (BldA) [Mass fraction] 98 % Gold BRISENO Work Phone: [facility] 08-15-2024 10:57-0400 Systolic blood pressure 102 mm[Hg] Gold BRISENO Work Phone: [facility] 07-06-2024 14:27-0400 Body height 177.8 cm Pacc 2 Work Phone: [facility] 07-06-2024 14:27-0400 Body mass index (BMI) [Ratio] 27.2 kg/m2 Pacc 2 Work Phone: [facility] 07-06-2024 14:27-0400 Body temperature 98.2 [degF] Pacc 2 Work Phone: [facility] 07-06-2024 14:27-0400 Body weight 86 kg Pacc 2 Work Phone: [facility] 07-06-2024 14:27-0400 Diastolic blood pressure 90 mm[Hg] Pacc 2 Work Phone: [facility] 07-06-2024 14:27-0400 Heart rate 66 /min Pacc 2 Work Phone: [facility] 07-06-2024 14:27-0400 Respiratory rate 16 /min Pacc 2 Work Phone: [facility] 07-06-2024 14:27-0400 SaO2% (BldA) [Mass fraction] 98 % Pacc 2 Work Phone: [facility] 07-06-2024 14:27-0400 Systolic blood pressure 141 mm[Hg] Pacc 2 Work Phone: [facility] 07-04-2024 12:36-0400 Diastolic blood pressure 91 mm[Hg] Gold Jones PA Work Phone: [facility] 07-04-2024 12:36-0400 Heart rate 80 /min Gold Jones PA Work Phone: [facility] 07-04-2024 12:36-0400 Respiratory rate 18 /min Gold Jnoes PA Work Phone: [facility] 07-04-2024 12:36-0400 SaO2% (BldA) [Mass fraction] 98 % Gold Jones PA Work Phone: [facility] 07-04-2024 12:36-0400 Systolic blood pressure 122 mm[Hg] Gold Jones PA Work Phone: [facility] 06-01-2024 10:27-0400 Body mass index (BMI) [Ratio] 27.58 kg/m2 Carrington Fritz MD Work Phone: [facility] 06-01-2024 10:27-0400 Body temperature 98.4 [degF] Carrington Fritz MD Work Phone: [facility] 06-01-2024 10:27-0400 Body weight 87.18 kg Carrington Fritz MD Work Phone: [facility] 06-01-2024 10:27-0400 Diastolic blood pressure 86 mm[Hg] Carrington Fritz MD Work Phone: [facility] 06-01-2024 10:27-0400 Heart rate 70 /min Carrington Fritz MD Work Phone: [facility] 06-01-2024 10:27-0400 SaO2% (BldA) [Mass fraction] 99 % Carrington Fritz MD Work Phone: [facility] [employer] [facility] 06-01-2024 10:27-0400 Systolic blood pressure 136 mm[Hg] Carrington Fritz MD Work Phone: [facility] 05-30-2024 11:51-0400 Diastolic blood pressure 87 mm[Hg] Gold BRISENO Work Phone: [facility] 05-30-2024 11:51-0400 Heart rate 80 /min Gold Jones PA Work Phone: [facility] 05-30-2024 11:51-0400 Respiratory rate 16 /min Gold Jones PA Work Phone: [facility] 05-30-2024 11:51-0400 Systolic blood pressure 128 mm[Hg] Gold BRISENO Work Phone: [facility] 05-22-2024 15:59-0400 Body height 177.8 cm Gabe Marin [employer] Work Phone: [facility] 05-22-2024 15:59-0400 Body mass index (BMI) [Ratio] 27.71 kg/m2 Gabe Marin [employer] Work Phone: [facility] 05-22-2024 15:59-0400 Body weight 87.6 kg Gabe Marin [employer] Work Phone: [facility] 05-03-2024 11:02-0500 Body height 177.8 cm Fran-Sarahi Vu DO Work Phone: [facility] 05-03-2024 11:02-0500 Body mass index (BMI) [Ratio] 28.07 kg/m2 Fran-Sarahi Vu DO Work Phone: [facility] 05-03-2024 11:02-0500 Body temperature 98.8 [degF] Fran-Sarahi Vu DO Work Phone: [facility] 05-03-2024 11:02-0500 Body weight 88.72 kg Fran-Sarahi Vu DO Work Phone: [facility] 05-01-2024 11:08-0500 Body mass index (BMI) [Ratio] 28.52 kg/m2 Carrington Fritz MD Work Phone: [facility] 05-01-2024 11:08-0500 Body temperature 98.2 [degF] Carrington Fritz MD Work Phone: [facility] 05-01-2024 11:08-0500 Body weight 90.17 kg Carrington Fritz MD Work Phone: [facility] 05-01-2024 11:08-0500 Diastolic blood pressure 101 mm[Hg] Carrington Fritz MD Work Phone: [facility] 05-01-2024 11:08-0500 Heart rate 87 /min Carrington Fritz MD Work Phone: [facility] 05-01-2024 11:08-0500 Systolic blood pressure 147 mm[Hg] Carrington Fritz MD Work Phone: [facility] 04-24-2024 13:47-0500 Body height 177.8 cm Gabe Marin [employer] Work Phone: [facility] 04-24-2024 13:47-0500 Body mass index (BMI) [Ratio] 27.84 kg/m2 Gabe Marin [employer] Work Phone: [facility] 04-24-2024 13:47-0500 Body weight 88 kg Gabe Marin [employer] Work Phone: [facility] 04-14-2024 09:46-0500 Body mass index (BMI) [Ratio] 26.69 kg/m2 Jose R Aquino MD Work Phone: [facility] 04-14-2024 09:46-0500 Body temperature 98.6 [degF] Jose R Aqiuno MD Work Phone: [facility] 04-14-2024 09:46-0500 Body weight 84.37 kg Jose R Aquino MD Work Phone: [facility] 04-14-2024 09:46-0500 Diastolic blood pressure 85 mm[Hg] Jose R Aquino MD Work Phone: [facility] 04-14-2024 09:46-0500 Heart rate 76 /min Jose R Aquino MD Work Phone: [facility] 04-14-2024 09:46-0500 Respiratory rate 18 /min Jose R Aquino MD Work Phone: [facility] 04-14-2024 09:46-0500 SaO2% (BldA) [Mass fraction] 100 % Jose R Aquino MD Work Phone: [facility] 04-14-2024 09:46-0500 Systolic blood pressure 141 mm[Hg] Jose R Aquino MD Work Phone: [facility] 04-13-2024 08:56-0500 Diastolic blood pressure 93 mm[Hg] Gold Jones PA Work Phone: [facility] 04-13-2024 08:56-0500 Heart rate 86 /min Gold Jones PA Work Phone: [facility] 04-13-2024 08:56-0500 Respiratory rate 24 /min Gold Jones PA Work Phone: [facility] 04-13-2024 08:56-0500 SaO2% (BldA) [Mass fraction] 98 % Gold Nimyrtle PA Work Phone: [facility] 04-13-2024 08:56-0500 Systolic blood pressure 130 mm[Hg] Gold Jones PA Work Phone: [facility] 04-06-2024 14:09-0500 Body height 177.8 cm Vanesa RILEY Work Phone: [facility] Work Phone: 04-06-2024 14:09-0500 Body mass index (BMI) [Ratio] 26.9 kg/m2 Vanesa RILEY Work Phone: [facility] Work Phone: 04-06-2024 14:09-0500 Body surface area Derived from formula 2 m2 Vanesa RILEY Work Phone: [facility] Work Phone: 04-06-2024 14:09-0500 Body weight 84.91 kg Vanesa RILEY Work Phone: [facility] Work Phone: 04-06-2024 14:09-0500 Diastolic blood pressure 90 mm[Hg] aVnesa VILLALOBOSP Work Phone: [facility] Work Phone: 04-06-2024 14:09-0500 Heart rate 85 /min Vanesa RILEY Work Phone: [facility] Work Phone: 04-06-2024 14:09-0500 SaO2% (BldA) [Mass fraction] 94 % Vanesa RILEY Work Phone: [facility] Work Phone: 04-06-2024 14:09-0500 Systolic blood pressure 138 mm[Hg] Vanesa Crouch [employer]OBBIN INSPECTOR Work Phone: [facility] Work Phone: 03-29-2024 10:27-0500 Body temperature 98.4 [degF] Lyn Shipman PA-C Work Phone: [facility] 03-16-2024 11:24-0500 Body mass index (BMI) [Ratio] 26.83 kg/m2 [facility] 03-16-2024 11:24-0500 Body weight 84.82 kg Carrington Fritz [facility] 03-16-2024 11:24-0500 Diastolic blood pressure 91 mm[Hg] Carrington Fritz MD Work Phone: [facility] [employer] 03-16-2024 11:24-0500 Heart rate 101 /min Carrington Fritz MD Work Phone: [facility] [employer] 03-16-2024 11:24-0500 Systolic blood pressure 132 mm[Hg] Carrington Fritz MD Work Phone: [facility] [employer] 03-15-2024 12:42-0500 Body height 177.8 cm Fran-Sarahi Vu DO Work Phone: [facility] [employer] 03-15-2024 12:42-0500 Body mass index (BMI) [Ratio] 27.32 kg/m2 Fran-Sarahi Vu DO Work Phone: [facility] [employer] 03-15-2024 12:42-0500 Body temperature 98.1 [degF] Fran-Sarahi Vu DO [facility] 03-15-2024 12:42-0500 Body weight 86.36 kg Fran-Sarahi Vu DO Work Phone: [facility] [employer] [facility] 03-06-2024 16:24-0500 Diastolic blood pressure 74 mm[Hg] Vanesa Crouch BOBBIN INSPECTOR Work Phone: [facility] Work Phone: 03-06-2024 16:24-0500 Systolic blood pressure 119 mm[Hg] Vanesa Crouch BOBBIN INSPECTOR Work Phone: [facility] Work Phone: 12-30-2024 16:05-0500 Body height 177.8 cm Vanesa Crouch BOBBIN INSPECTOR Work Phone: [facility] Work Phone: 03-06-2024 16:05-0500 Body mass index (BMI) [Ratio] 27 kg/m2 Vanesa Crouch BOBBIN INSPECTOR Work Phone: [facility] Work Phone: 03-06-2024 16:05-0500 Body surface area Derived from formula 2 m2 Vanesa Crouch BOBBIN INSPECTOR Work Phone: [facility] Work Phone: 03-06-2024 16:05-0500 Body temperature 98 [degF] Vanesa Crouch BOBBIN INSPECTOR Work Phone: [facility] Work Phone: 03-06-2024 16:05-0500 Body weight 85.28 kg Vanesa Crouch BOBBIN INSPECTOR Work Phone: [facility] Work Phone: 03-06-2024 16:05-0500 Diastolic blood pressure 83 mm[Hg] Vanesa Crouch BOBBIN INSPECTOR Work Phone: [facility] Work Phone: 03-06-2024 16:05-0500 Heart rate 84 /min Vanesa Crouch BOBBIN INSPECTOR Work Phone: [facility] Work Phone: 03-06-2024 16:05-0500 Respiratory rate 18 /min Vanesa Crouch BOBBIN INSPECTOR Work Phone: [facility] Work Phone: 03-06-2024 16:05-0500 SaO2% (BldA) [Mass fraction] 98 % Vanesa Crouch BOBBIN INSPECTOR Work Phone: [facility] Work Phone: 03-06-2024 16:05-0500 Systolic blood pressure 127 mm[Hg] Vanesa Crouch ROSEMARY Work Phone: [facility] Work Phone: 02-15-2024 09:48-0500 Body mass index (BMI) [Ratio] 25.97 kg/m2 Carrington Fritz MD Work Phone: [facility] [employer] [facility] 02-15-2024 09:48-0500 Body weight 82.1 kg Carrington Fritz MD Work Phone: [facility] [employer] [facility] 02-15-2024 09:48-0500 Diastolic blood pressure 79 mm[Hg] Carrington Fritz MD Work Phone: [facility] [employer] [facility] 02-15-2024 09:48-0500 Heart rate 100 /min Carrington Fritz MD Work Phone: [facility] [employer] [facility] 02-15-2024 09:48-0500 Systolic blood pressure 153 mm[Hg] Carrington Fritz MD Work Phone: [facility] [employer] [facility] 01-20-2024 11:11-0500 Body mass index (BMI) [Ratio] 24.39 kg/m2 Carrington Fritz MD Work Phone: [facility] [employer] [facility] 01-20-2024 11:11-0500 Body weight 77.11 kg Carrington Fritz MD Work Phone: [facility] [employer] [place] [facility] 11:11-0500 Diastolic blood pressure 90 mm[Hg] Carrington Fritz MD Work Phone: [facility] [employer] [facility] 01-20-2024 11:11-0500 Heart rate 115 /min Carrington Fritz MD Work Phone: [facility] [employer] [facility] 01-20-2024 11:11-0500 Systolic blood pressure 126 mm[Hg] Carrington Fritz MD Work Phone: [facility] [employer] [facility] 12-22-2023 14:31-0400 Body height 177.8 cm Fran-Sarahi Vu DO Work Phone: [facility] [employer] [facility] 12-22-2023 14:31-0400 Body mass index (BMI) [Ratio] 24.25 kg/m2 Fran-Sarahi Vu DO Work Phone: [facility] [employer] [facility] 12-22-2023 14:31-0400 Body temperature 98.2 [degF] Fran-Sarahi Vu DO Work Phone: [facility] [employer] [facility] 12-22-2023 14:31-0400 Body weight 76.66 kg Fran-Sarahi Vu DO Work Phone: [facility] 12-16-2023 11:07-0400 Body mass index (BMI) [Ratio] 26 kg/m2 Carrington Fritz MD Work Phone: [facility] [employer] [facility] 12-16-2023 11:07-0400 Body weight 77.56 kg Carrington Fritz MD Work Phone: [facility] [employer] [facility] 12-16-2023 11:07-0400 Diastolic blood pressure 89 mm[Hg] Carrington Fritz MD Work Phone: [facility] [employer] [facility] 12-16-2023 11:07-0400 Heart rate 100 /min Carrington Fritz MD Work Phone: [facility] [employer] [facility] 12-16-2023 11:07-0400 Systolic blood pressure 151 mm[Hg] Carrington Fritz MD Work Phone: [facility] 12-08-2023 14:55-0400 Body height 177.8 cm Kory Kirkland APRN.[facility] Work Phone: [facility] 12-08-2023 14:55-0400 Heart rate 64 /min Kory Kirkland APRN.[facility] Work Phone: [facility] 12-08-2023 14:55-0400 SaO2% (BldA) [Mass fraction] 96 % Kory Kirkland APRN.[facility] Work Phone: [facility] 11-24-2023 09:10-0400 Body mass index (BMI) [Ratio] 25.21 kg/m2 Carrington Fritz MD Work Phone: [facility] [employer] [facility] 11-24-2023 09:10-0400 Body temperature 98.01 [degF] Carrington Fritz MD Work Phone: [facility] [employer] [facility] 11-24-2023 09:10-0400 Body weight 75.75 kg Carrington Fritz MD Work Phone: [facility] [employer] [facility] 11-24-2023 09:10-0400 Diastolic blood pressure 81 mm[Hg] Carrington Fritz MD Work Phone: [facility] [employer] [facility] 11-24-2023 09:10-0400 Heart rate 78 /min Carrington Fritz MD Work Phone: [facility] [employer] [facility] 11-24-2023 09:10-0400 Systolic blood pressure 133 mm[Hg] Carrington Fritz MD Work Phone: [facility] [employer] 11-11-2023 13:51-0400 Body height 173.4 cm Carrington Fritz MD Work Phone: [facility] [employer] [facility] 11-11-2023 13:51-0400 Body mass index (BMI) [Ratio] 24.6 kg/m2 Carrington Fritz MD Work Phone: [facility] [employer] [facility] 11-11-2023 13:51-0400 Body weight 73.94 kg Carrington Fritz MD Work Phone: [facility] [employer] [facility] 11-11-2023 13:51-0400 Diastolic blood pressure 84 mm[Hg] [facility] 11-11-2023 13:51-0400 Heart rate 90 /min Carrington Fritz MD Work Phone: [facility] [employer] [facility] 11-11-2023 13:51-0400 SaO2% (BldA) [Mass fraction] 96 % Carrington Fritz MD Work Phone: [facility] [employer] [facility] 11-11-2023 13:51-0400 Systolic blood pressure 127 mm[Hg] Carrington Fritz MD Work Phone: [facility] [employer] [facility] 10-28-2023 17:21-0400 Body height 177.8 cm Carmen Mcadams MD Work Phone: [employer] 10-28-2023 17:21-0400 Body mass index (BMI) [Ratio] 24.39 kg/m2 Caremn Mcadams MD Work Phone: [employer] 10-28-2023 17:21-0400 Body temperature 98.91 [degF] Carmen Mcadams MD Work Phone: [facility] [address] 10-28-2023 17:21-0400 Body weight 77.11 kg Carmen Mcadams MD Work Phone: [employer] 10-28-2023 17:21-0400 Diastolic blood pressure 88 mm[Hg] Carmen Mcadams MD Work Phone: [employer] 10-28-2023 17:21-0400 Heart rate 93 /min Carmen Mcadams MD Work Phone: [facility] [address] 10-28-2023 17:21-0400 Respiratory rate 18 /min Carmen Mcadams MD Work Phone: [employer] 10-28-2023 17:21-0400 SaO2% (BldA) [Mass fraction] 97 % Carmen Mcadams MD Work Phone: [employer] 10-28-2023 17:21-0400 Systolic blood pressure 132 mm[Hg] Carmen Mcadams MD Work Phone: [facility] [address] 10-28-2023 12:15-0400 Body temperature 98.49 [degF] Summer Llamas MD Work Phone: [facility] 10-28-2023 12:15-0400 Diastolic blood pressure 65 mm[Hg] Summer Llamas MD Work Phone: [employer] 10-28-2023 12:15-0400 Heart rate 74 /min Summer Llamas MD Work Phone: [employer] 10-28-2023 12:15-0400 Respiratory rate 18 /min [facility] MD [facility] 10-28-2023 12:15-0400 SaO2% (BldA) [Mass fraction] 97 % Summer Llamas MD Work Phone: [employer] 10-28-2023 12:15-0400 Systolic blood pressure 115 mm[Hg] Summer [facility]lamas MD [facility] 08-25-2023 13:11-0400 Body height 177.8 cm Colette Almaguer CNP Work Phone: [facility] Work Phone: 08-25-2023 13:11-0400 Body mass index (BMI) [Ratio] 26 kg/m2 Colette Almaguer CNP Work Phone: [facility] Work Phone: 08-25-2023 13:11-0400 Body surface area Derived from formula 2 m2 Colette Almaguer CNP Work Phone: [facility] Work Phone: 08-25-2023 13:11-0400 Body weight 82.1 kg Colette Almaguer CNP Work Phone: [facility] Work Phone: 08-25-2023 13:11-0400 Diastolic blood pressure 79 mm[Hg] Colette Almaguer CNP Work Phone: [facility] Work Phone: 08-25-2023 13:11-0400 Heart rate 75 /min Colette Almaguer CNP Work Phone: [facility] Work Phone: 08-25-2023 13:11-0400 SaO2% (BldA) [Mass fraction] 98 % Colette Almaguer CNP Work Phone: [facility] Work Phone: 08-25-2023 13:11-0400 Systolic blood pressure 118 mm[Hg] Colette Almaguer CNP Work Phone: [facility] Work Phone: 08-04-2023 12:57-0400 Body height 177.8 cm Fran-Sarahi Vu DO Work Phone: [facility] [employer] [facility] 08-04-2023 12:57-0400 Body mass index (BMI) [Ratio] 27.26 kg/m2 Fran-Sarahi Vu DO Work Phone: [facility] [employer] [facility] 08-04-2023 12:57-0400 Body temperature 98.2 [degF] Fran-Sarahi Vu DO Work Phone: [facility] [employer] [facility] 08-04-2023 12:57-0400 Body weight 86.18 kg Fran-Sarahi Vu DO Work Phone: [facility] [employer] [facility] 07-15-2023 13:13-0400 Body height 177.8 cm Colette Almaguer CNP Work Phone: [facility] Work Phone: 07-15-2023 13:13-0400 Body mass index (BMI) [Ratio] 26.2 kg/m2 Colette Almaguer CNP Work Phone: [facility] Work Phone: 07-15-2023 13:13-0400 Body surface area Derived from formula 2 m2 Colette Almaguer CNP Work Phone: [facility] Work Phone: 07-15-2023 13:13-0400 Body weight 82.92 kg Colette Almaguer CNP Work Phone: [facility] Work Phone: 07-15-2023 13:13-0400 Diastolic blood pressure 84 mm[Hg] Colette Almaguer [facility] Work Phone: [facility] Work Phone: 07-15-2023 13:13-0400 Heart rate 82 /min Colette Almaguer [facility] Work Phone: [facility] Work Phone: 07-15-2023 13:13-0400 SaO2% (BldA) [Mass fraction] 95 % Colette Almaguer [facility] Work Phone: [facility] Work Phone: 07-15-2023 13:13-0400 Systolic blood pressure 138 mm[Hg] Colette Almaguer [facility] Work Phone: [facility] Work Phone: 07-14-2023 10:19-0400 Body height 177.8 cm Fran-Sarahi Vu DO Work Phone: [facility] [employer] [facility] 07-14-2023 10:19-0400 Body mass index (BMI) [Ratio] 26.98 kg/m2 Fran-Sarahi Vu DO Work Phone: [facility] [employer] [facility] 07-14-2023 10:19-0400 Body temperature 97.2 [degF] [facility] 07-14-2023 10:19-0400 Body weight 85.28 kg Fran[facility]Sarahi Vu DO [facility] 07-14-2023 10:19-0400 Diastolic blood pressure 72 mm[Hg] Fran[facility]Sarahi [facility] 07-14-2023 10:19-0400 Systolic blood pressure 118 mm[Hg] Fran-Sarahi Vu DO [facility] 06-03-2023 13:10-0400 Body height 175.26 cm Colette Almaguer CNP Work Phone: [facility] Work Phone: 06-03-2023 13:10-0400 Body mass index (BMI) [Ratio] 25.1 kg/m2 Colette Almaguer CNP Work Phone: [facility] Work Phone: 06-03-2023 13:10-0400 Body surface area Derived from formula 1.9 m2 Colette Almaguer CNP Work Phone: [facility] Work Phone: 06-03-2023 13:10-0400 Body weight 77.11 kg Colette Almaguer CNP Work Phone: [facility] Work Phone: 06-03-2023 13:10-0400 Diastolic blood pressure 76 mm[Hg] Colette Almaguer [facility] Work Phone: [facility] Work Phone: 06-03-2023 13:10-0400 Heart rate 76 /min Colette Almaguer CNP Work Phone: [facility] Work Phone: 06-03-2023 13:10-0400 SaO2% (BldA) [Mass fraction] 95 % Colette Almaguer CNP Work Phone: [facility] Work Phone: 06-03-2023 13:10-0400 Systolic blood pressure 108 mm[Hg] Colette Almaguer [facility] Work Phone: [facility] Work Phone: 05-10-2023 13:13-0500 Body height 175.26 cm Colette Almaguer [facility] Work Phone: [facility] Work Phone: 05-10-2023 13:13-0500 Body mass index (BMI) [Ratio] 24.5 kg/m2 Colette Almaguer CNP Work Phone: [facility] Work Phone: 05-10-2023 13:13-0500 Body surface area Derived from formula 1.9 m2 Colette Almaguer CNP Work Phone: [facility] Work Phone: 05-10-2023 13:13-0500 Body weight 75.3 kg Colette Almaguer CNP Work Phone: [facility] Work Phone: 05-10-2023 13:13-0500 Diastolic blood pressure 71 mm[Hg] Colette Almaguer CNP Work Phone: [facility] Work Phone: 05-10-2023 13:13-0500 Heart rate 79 /min Colette Almaguer CNP Work Phone: [facility] Work Phone: 05-10-2023 13:13-0500 SaO2% (BldA) [Mass fraction] 94 % Colette Almaguer CNP Work Phone: [facility] Work Phone: 05-10-2023 13:13-0500 Systolic blood pressure 114 mm[Hg] Colette Almaguer CNP Work Phone: [facility] Work Phone: 04-26-2023 14:35-0500 Body height 175.26 cm Colette Almaguer CNP Work Phone: [facility] Work Phone: 04-26-2023 14:35-0500 Body mass index (BMI) [Ratio] 24.5 kg/m2 Colette Almaguer CNP Work Phone: [facility] Work Phone: 04-26-2023 14:35-0500 Body surface area Derived from formula 1.9 m2 Colette Almaguer CNP Work Phone: [facility] Work Phone: 04-26-2023 14:35-0500 Body weight 75.3 kg Colette Almaguer [facility] Work Phone: [facility] Work Phone: 04-26-2023 14:35-0500 Diastolic blood pressure 73 mm[Hg] Colette Almaguer [facility] Work Phone: [facility] Work Phone: 04-26-2023 14:35-0500 Heart rate 81 /min Colette Almaguer [facility] Work Phone: [facility] Work Phone: 04-26-2023 14:35-0500 SaO2% (BldA) [Mass fraction] 96 % Colette Almaguer [facility] Work Phone: [facility] Work Phone: 04-26-2023 14:35-0500 Systolic blood pressure 115 mm[Hg] Colette Almaguer [facility] Work Phone: [facility] Work Phone: 04-12-2023 13:15-0500 Body height 175.26 cm Winston Carbajal [employer] Work Phone: [facility] Work Phone: 04-12-2023 13:15-0500 Body mass index (BMI) [Ratio] 23.9 kg/m2 Winston Carbajal [employer] Work Phone: [facility] Work Phone: 04-12-2023 13:15-0500 Body surface area Derived from formula 1.9 m2 Winston Carbajal [employer] Work Phone: [facility] Work Phone: 04-12-2023 13:15-0500 Body weight 73.48 kg Winston Carbajal DDS Work Phone: [facility] Work Phone: 04-12-2023 13:15-0500 Diastolic blood pressure 79 mm[Hg] Winston Carbajal DDS Work Phone: [facility] Work Phone: 04-12-2023 13:15-0500 Heart rate 86 /min Winston Carbajal DDS Work Phone: [facility] Work Phone: 04-12-2023 13:15-0500 SaO2% (BldA) [Mass fraction] 96 % Winston Carbajal DDS Work Phone: [facility] Work Phone: 04-12-2023 13:15-0500 Systolic blood pressure 111 mm[Hg] Winston Carbajal DDS Work Phone: [facility] Work Phone: 09-21-2022 15:05-0400 Diastolic blood pressure 71 mm[Hg] [facility] Other Phone: [facility] 09-21-2022 15:05-0400 Heart rate 101 /min [facility] Other Phone: [facility] 09-21-2022 15:05-0400 Respiratory rate 18 /min [employer] [facility] Other Phone: [facility] 09-21-2022 15:05-0400 SaO2% (BldA) [Mass fraction] 97 % [facility] Other Phone: [facility] 09-21-2022 15:05-0400 Systolic blood pressure 105 mm[Hg] [facility] Other Phone: [facility] 09-21-2022 12:05-0400 Body height 180.3 cm [employer] [facility] Other Phone: [facility] 09-21-2022 12:05-0400 Body temperature 98.06 [degF] [facility] Other Phone: [facility] 09-21-2022 12:05-0400 Body weight 70.2 kg [facility] Other Phone: [facility] 04-23-2022 03:59-0500 Body temperature 98.29 [degF] Allie Bustamante MD Work Phone: [facility] 04-23-2022 03:59-0500 Diastolic blood pressure 73 mm[Hg] Allie Bustamante MD Work Phone: [facility] 04-23-2022 03:59-0500 Heart rate 88 /min Allie Bustamante MD Work Phone: [facility] 04-23-2022 03:59-0500 Respiratory rate 18 /min Allie Bustamante MD Work Phone: [facility] 04-23-2022 03:59-0500 SaO2% (BldA) [Mass fraction] 95 % Allie Bustamante MD Work Phone: [facility] 04-23-2022 03:59-0500 Systolic blood pressure 110 mm[Hg] Allie Bustamante MD Work Phone: [facility] 04-22-2022 19:35-0500 Body height 177.8 cm Allie Bustamante MD Work Phone: [facility] 04-19-2022 15:22-0500 Body mass index (BMI) [Ratio] 22.24 kg/m2 Marlon Abebe MD Work Phone: [facility] [employer] 04-19-2022 15:22-0500 Body temperature 97.9 [degF] Marlon Abebe MD Work Phone: [facility] [employer] 04-19-2022 15:22-0500 Body weight 70.31 kg Marlon Abebe MD Work Phone: [facility] [employer] 04-19-2022 15:22-0500 Diastolic blood pressure 88 mm[Hg] Marlon Abebe MD Work Phone: [employer] 04-19-2022 15:22-0500 Heart rate 97 /min Marlon Abebe MD Work Phone: [facility] [employer] 04-19-2022 15:22-0500 Respiratory rate 18 /min Marlon Abebe MD Work Phone: [employer] 04-19-2022 15:22-0500 SaO2% (BldA) [Mass fraction] 99 % Marlon Abebe MD Work Phone: [employer] 04-19-2022 15:22-0500 Systolic blood pressure 132 mm[Hg] Marlon Abebe MD Work Phone: [facility] [employer] Encounters Encounter Date Encounter Type Care Provider Facility Start: 08-24-2024 End: 08-24-2024 Unknown [facility] Start: 08-24-2024 End: 08-24-2024 Office outpatient visit 15 minutes Ryann Traylor PA-C Work Phone: [facility]gent [facility] Virtual Visit Comment on above: TMJ syndrome (Primar y Dx); Scalp pain Start: 08-23-2024 End: 08-23-2024 Telephone encounter Blue Mathias MD Work Phone: [facility] Comment on above: Insurance Authorizat ion (Preferred Drug W/Botox ) Start: 08-18-2024 End: 08-18-2024 Office outpatient visit 15 minutes Carrington Fritz MD Work Phone: [facility] Internal Medicine/Pediatrics Comment on above: Hx of trauma of hard palate (Primary Dx) Start: 08-18-2024 End: 08-18-2024 ambulatory [facility] Start: 08-15-2024 End: 08-15-2024 Emergency department patient visit BAR [facility] Start: 08-15-2024 End: 08-15-2024 Office outpatient visit 25 minutes Gold BRISENO Work Phone: [facility] Comment on above: Chronic facial pain (Primary Dx); TMJ (temporomandibular joint disorder) Start: 08-15-2024 End: 08-15-2024 ambulatory GOLD JONES [facility] Start: 08-14-2024 End: 08-14-2024 ambulatory He Calle CCC-REPAIR SUPERVISOR [facility] Speech Therapy Comment on above: Oropharyngeal dyspha tomi (Primary Dx); Jaw pain; Atypical facial pain Start: 08-09-2024 End: 08-10-2024 Refill Dahlia FAYE [facility] Internal [facility]Pediatrics Comment on above: Anxiety Start: 08-08-2024 End: 08-08-2024 Orders Only Juan F Wright DO Work Phone: Neurology Comment on above: Referral Request (Cristi tox / Initial) Start: 08-02-2024 End: 08-02-2024 Postop follow up visit related to original px Jamie Nur MD Work Phone: Otolaryngology Comment on above: Post-operative state (Primary Dx) Start: 08-02-2024 End: 08-02-2024 ambulatory [facility] Facility:[facility] Start: 07-21-2024 End: 07-21-2024 Telephone encounter Juan F Wright DO Work Phone: Neurology Comment on above: Patient Update Start: 07-21-2024 End: 07-21-2024 Office outpatient visit 25 minutes Juan F Wright DO Work Phone: Neurology Comment on above: Jaw pain (Primary Dx ); Atypical facial pain; Dysphagia, unspecified type Start: 07-21-2024 End: 07-21-2024 ambulatory [facility] Facility:[facility] Start: 07-20-2024 End: 07-21-2024 ambulatory [facility] Facility:[facility] Start: 07-19-2024 End: 07-20-2024 Refill Criselda Suazo RN [facility] Comment on above: TMJ (temporomandibul ar joint disorder) - Bilateral Start: 07-14-2024 End: 07-14-2024 Telephone encounter Jeimy Hi DMD Work Phone: [facility] Comment on above: Plan of Care Needed Start: 07-11-2024 End: 07-11-2024 ambulatory [facility] Facility:[facility] Start: 07-11-2024 End: 07-11-2024 Telemedicine consultation with patient Chari Vela APRN.[facility] Work Phone: Telemedicine Comment on above: Viral sinusitis (Dana juan Dx) Start: 07-11-2024 End: 08-09-2024 Telephone encounter Blue Mathias MD Work Phone: [facility] Comment on above: Insurance Authorizat ion (Preferred Drug W/Appeal) Anxiety Start: 07-10-2024 End: 07-12-2024 ambulatory [facility] Start: 07-10-2024 End: 07-12-2024 Subsequent hospital visit by physician Kulwinder Nur MD Work Phone: [facility] Comment on above: Oropharyngeal dyspha tomi Start: 07-10-2024 End: 07-10-2024 Patient encounter procedure Kavin Aguilera DDS Work Phone: [facility] Start: 07-10-2024 ambulatory JEIMY HI Facility:[facility] Start: 07-10-2024 ambulatory KAVIN AGUILERA Facility:[facility] Start: 07-10-2024 ambulatory [facility] Start: 07-06-2024 End: 07-06-2024 ambulatory [facility] Facility:[facility] Start: 07-06-2024 Encounter for other preprocedural examination [facility] Start: 07-06-2024 End: 07-06-2024 Admission to establishment [facility] Work Phone: Pre Anesthesia Start: 07-06-2024 End: 07-06-2024 Anesthesia consultation [facility] Work Phone: Pre Anesthesia Comment on above: Pre-op evaluation (P rimary Dx); Hepatitis C virus infection without hepatic coma, unspecified chronicity; Neck pain; Opioid dependence in remission (HCC) Start: 07-06-2024 End: 07-06-2024 Preprocedural examination done [facility] Work Phone: [facility] Work Phone: Start: 07-06-2024 ambulatory GABE MARIN [facility] Start: 07-04-2024 End: 07-04-2024 Telephone encounter Juan F Wright DO Work Phone: Neurology Comment on above: Referral Request Start: 07-04-2024 End: 07-04-2024 Office outpatient visit 25 minutes Gold BRISENO Work Phone: [facility] Comment on above: Bilateral temporoman dibular joint disorder, unspecified (Primary Dx); TMJ (temporomandibular joint disorder) - Bilateral Start: 07-04-2024 End: 07-04-2024 ambulatory GOLD JONES [facility] Start: 06-29-2024 End: 06-29-[address] [facility] Facility:[facility] Start: 06-19-2024 End: 06-23-2024 Telephone encounter Kate Becker Neurology, A Department of [facility] Comment on above: New Patient Start: 06-16-2024 End: 06-16-2024 ambulatory [facility] Start: 06-13-2024 End: 06-14-2024 Telephone encounter Matthias Vela CMA [facility] Internal Medicine/Pediatrics Start: 06-13-2024 End: 06-13-2024 ambulatory ERICA HART Facility:[facility] Start: 06-13-2024 End: 06-13-2024 Office outpatient new 45 minutes Erica Hart MD Work Phone: [facility]at[facility] [place] Comment on above: Seborrheic dermatiti s (Primary Dx) Start: 06-12-2024 End: 06-12-2024 ambulatory [facility] Start: 06-08-2024 End: 06-08-2024 Refill Tala Mane RN [facility] Comment on above: Cervical spondylosis without myelopathy Start: 06-06-2024 ambulatory GABE MARIN [facility] Start: 06-04-2024 End: 06-05-2024 Refill Carrington Fritz MD Work Phone: [facility] Internal Medicine/Pediatrics Comment on above: Anxiety Start: 06-01-2024 End: 06-01-2024 Office outpatient visit 25 minutes Carrington Fritz MD Work Phone: [facility] Internal Medicine/Pediatrics Comment on above: Facial pain (Primary Dx); Anxiety Start: 06-01-2024 End: 06-01-2024 ambulatory [facility] Start: 05-30-2024 End: 05-30-2024 Telephone encounter Gabe Marin APRN.CNP Work Phone: [facility] [place] Comment on above: 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 Start: 05-30-2024 End: 05-30-2024 Office outpatient visit 25 minutes Gold BRISENO Work Phone: [facility] Comment on above: Cervical spondylosis without myelopathy (Primary Dx); TMJ (temporomandibular joint disorder) Start: 05-30-2024 End: 05-30-2024 ambulatory GOLD JONES [facility] Start: 05-29-2024 End: 05-29-2024 ambulatory DONAL HAYS Facility:[facility] Start: 05-29-2024 End: 05-29-2024 Office outpatient visit 25 minutes Donal Hays MD Work Phone: Facial Plastics/Reconstructio n Comment on above: Incompetent nasal va lve (Primary Dx); Refractory obstruction of nasal airway; Hypertrophy of inferior nasal turbinate; Deviated nasal septum Start: 05-26-2024 End: 05-26-2024 ambulatory [facility] Start: 05-22-2024 End: 05-22-2024 ambulatory GABE MARIN Facility:[facility] Start: 05-22-2024 End: 05-22-2024 Patient encounter procedure Gabe Marin APRN.[facility] Work Phone: [facility] Comment on above: Cervicalgia (Primary Dx); Cervical spondylosis; Jaw pain Start: 05-19-2024 ambulatory UNKNOWN PROVIDER Facili ty:[facility] Start: 05-19-2024 End: 05-19-2024 Subsequent hospital visit by physician [facility] (1.5t) Radiology Comment on above: Cervicalgia [M54.2] Start: 05-15-2024 End: 05-15-2024 ambulatory BRANDY ERICKSON Facility:[facility] Start: 05-15-2024 End: 05-15-2024 Patient encounter procedure Brandy Erickson PA-C Work Phone: Orthopaedics Comment on above: Left shoulder tendon itis (Primary Dx); Acute pain of left shoulder Start: 05-12-2024 End: 05-12-2024 Telephone encounter Gabe Marin APRN.[facility] Work Phone: 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 Start: 05-08-2024 End: 05-08-2024 Emergency department patient visit CARRINGTON FRITZ [facility] Start: 05-08-2024 ambulatory GABE ROCIO RUSS [facility] Start: 05-05-2024 End: 05-05-2024 Refill Dahlia Sommer [facility] Internal Medicine/Pediatrics Comment on above: Anxiety Start: 05-03-2024 End: 05-03-2024 Office outpatient visit 25 minutes [facility] Work Phone: [facility] Ear, Nose and Throat Comment on above: Black hairy tongue ( Primary Dx); Dysphagia, unspecified type; Asymmetrical hearing loss; DNS (deviated nasal septum) Start: 05-03-2024 End: 05-03-2024 ambulatory [facility] Start: 05-01-2024 End: 05-01-2024 Office outpatient visit 15 minutes Carrington Fritz MD Work Phone: [facility] Internal Medicine/Pediatrics Comment on above: Facial pain (Primary Dx); Anxiety; Seborrhea capitis Start: 05-01-2024 End: 05-01-2024 ambulatory [facility] Start: 04-26-2024 End: 04-26-2024 Patient encounter procedure Laurence Cox RT(R) Radiology Start: 04-26-2024 End: 04-26-2024 ambulatory Laurence Hines Kenny RT(R) Radiology Comment on above: Radiology MRI Start: 04-26-2024 End: 04-26-2024 Subsequent hospital visit by physician Mri [facility] (1.5t) Work Phone: Radiology Comment on above: Acute pain of left s houlder [M25.512] Start: 04-25-2024 ambulatory GABE MARIN [facility] Start: 04-25-2024 End: 04-26-2024 Telephone encounter Gabe Marin CONCRETE POINTER.[facility] Work Phone: [facility] [place] Comment on above: PT Orders Start: 04-24-2024 End: 04-24-2024 Subsequent hospital visit by physician Xr [facility] General Radiology Comment on above: Cervicalgia [M54.2] Start: 04-24-2024 End: 04-24-2024 ambulatory Maria Ines Canchola RT(R) General Radiology Comment on above: Radiology XR Start: 04-24-2024 End: 04-24-2024 Patient encounter procedure Maria Ines Canchola RT(R) General Radiology Comment on above: Cervicalgia (Primary Dx); Localized swelling, mass or lump of neck; Anxiety Start: 04-21-2024 End: 04-21-2024 ambulatory DIYA BONILLA Facility:[facility] Start: 04-21-2024 End: 04-21-2024 Patient encounter procedure Diya Bonilla MD Work Phone: Otolaryngology Comment on above: DNS (deviated nasal septum) (Primary Dx); Dysphagia, unspecified type; Mouth discomfort Start: 04-17-2024 End: 04-17-2024 ambulatory NANCIE HUERTA MD Facility:[id number] Start: 04-14-2024 End: 04-14-2024 ambulatory JOSE R AQUINO Facility:[facility] Start: 04-14-2024 End: 04-14-2024 ambulatory LYN COOLEYGUI Facility:[facility] Start: 04-14-2024 End: 04-14-2024 Patient encounter procedure Jose R Aquino MD Work Phone: Infectious Disease Comment on above: Black hairy tongue ( Primary Dx); Oral infection; Diarrhea of presumed infectious origin; History of hepatitis C; CRP elevated; Dry mouth Start: 04-13-2024 End: 04-13-2024 Office outpatient visit 25 minutes Gold BRISENO Work Phone: [facility] Comment on above: Jaw pain (Primary Dx ); TMJ (temporomandibular joint disorder) Start: 04-13-2024 End: 04-13-2024 [facility] Start: 04-11-2024 End: 08-09-2024 Telephone encounter Carlos Lebron MD Work Phone: Otolaryngology Start: 04-10-2024 End: 04-10-2024 Telephone encounter Jaz Sood MD Work Phone: [facility] Start: 04-10-2024 ambulatory JEIMY [facility] Facility:[facility] Start: 04-08-2024 End: 04-08-2024 ambulatory [facility] Facility:[facility] Start: 04-08-2024 End: 04-10-2024 Telemedicine consultation with patient Mechelle Bains ANDREE Work Phone: Telemedicine Comment on above: Encounter to discuss test results (Primary Dx) Xerostomia Start: 04-07-2024 End: 04-07-2024 Patient encounter procedure Brandy Erickson PA-C Work Phone: Orthopaedics Comment on above: Acute pain of left s houlder (Primary Dx); Left shoulder tendonitis; Left arm weakness Start: 04-07-2024 End: 04-07-2024 ambulatory SELF Facility:[facility] Start: 04-07-2024 End: 04-07-2024 Subsequent hospital visit by physician Xr [facility] Comment on above: Left shoulder pain, unspecified chronicity [M25.512] Start: 04-06-2024 End: 04-06-2024 Encounter for preprocedural laboratory examination Vanesa Neffick BOBBIN INSPECTOR Work Phone: [facility] Work Phone: Start: 04-06-2024 End: 04-06-2024 FQHC visit, estab pt Bri Barrow DIE MAKER BENCH STAMPING Work Phone: [facility] Work Phone: Start: 04-06-2024 End: 04-06-2024 General Vanesa Crouch BOBBIN INSPECTOR Work Phone: [facility] Work Phone: Start: 04-05-2024 End: 04-05-2024 [facility] Comment on above: Anxiety Start: 04-04-2024 End: 04-04-2024 Refill Theresa Kasandra [facility] Internal Medicine/Pediatrics Comment on above: Anxiety Start: 04-03-2024 End: 04-03-2024 Refill Theresa Kasandra [facility] Internal Medicine/Pediatrics Comment on above: Anxiety Test results Start: 03-31-2024 End: 04-03-2024 ambulatory Kory Kirkland APRN.CNP Work Phone: Otolaryngology Comment on above: Orthopedic Start: 03-29-2024 End: 03-29-2024 Patient encounter procedure Lyn Shipman PA-C Work Phone: Otolaryngology Comment on above: Dry mouth; Cervicalgia; TMJ dysfunction; Black hairy tongue; DNS (deviated nasal septum); Atypical facial pain Start: 03-29-2024 End: 03-29-2024 ambulatory LYN SHIPMAN Facility:[facility] Start: 03-29-2024 End: 03-29-2024 Subsequent hospital visit by physician Mackenzie [facility] S[facility] Work Phone: Radiology Comment on above: Localized swelling, mass or lump of neck [R22.1] Start: 03-24-2024 End: 03-24-2024 ambulatory LAURENCE BLANKENSHIP [facility] Start: 03-23-2024 ambulatory AKI QUIROZ Facility:[facility] Start: 03-21-2024 End: 03-21-2024 ambulatory Kay Siddiqi SUZANNA-C Work Phone: [facility] Comment on above: Chiropractor Blood flow Start: 03-20-2024 End: 03-20-2024 Telephone encounter Theresa Slaughter [facility] Phys[facility] Internal Medicine/Pediatrics Comment on above: medication request Start: 03-17-2024 End: 03-17-2024 ambulatory Kay Siddiqi PA-C Work Phone: [facility] Comment on above: Localized swelling, mass or lump of neck (Primary Dx); Cervicalgia Start: 03-17-2024 End: 03-17-2024 Telemedicine consultation with patient Kay BRISENO-C Work Phone: [facility] Start: 03-16-2024 End: 03-16-2024 Office outpatient visit 15 minutes Carrington Fritz MD Work Phone: [facility] Internal Medicine/Pediatrics Comment on above: Anxiety (Primary Dx) ; Xerostomia; Seborrhea capitis Start: 03-16-2024 End: 03-16-2024 ambulatory CARRINGTON FRITZ [facility] Start: 03-15-2024 End: 03-15-2024 Office outpatient visit 15 minutes [facility] DO Work Phone: [facility] Ear, Nose and Throat Comment on above: Dysphagia, unspecifi ed type; Dry mouth; Nasal mucosa dry; Black hairy tongue Start: 03-15-2024 End: 03-15-2024 ambulatory [facility] Start: 03-07-2024 End: 03-09-2024 ambulatory Kory Kirkland APRN.CNP Work Phone: Otolaryngology Comment on above: Orthopedic Start: 03-06-2024 End: 03-06-2024 FQHC visit, estab pt Patrica KIDDW Work Phone: [facility] Work Phone: Start: 03-06-2024 End: 03-06-2024 FQHC visit, estab pt Vanesasammie Crouch BOBBIN INSPECTOR Work Phone: [facility] Work Phone: Start: 02-21-2024 End: 02-21-2024 Unknown [facility] Start: 02-21-2024 End: 02-21-2024 Emergency department patient visit AKI QUIROZ Facility:[facility] Start: 02-18-2024 End: 02-18-2024 Refill Carrington Fritz MD Work [facility]: [facility] Comment on above: Oral thrush Start: 02-17-2024 End: 02-17-2024 Emergency department patient visit CARRINGTON FRITZ [facility] Start: 02-17-2024 End: 02-17-2024 ambulatory GOLD S [facility] Start: 02-15-2024 End: 02-15-2024 Office outpatient visit 25 minutes Carrington Fritz MD Work Phone: [facility] Comment on above: Anxiety (Primary Dx) ; TMJ (temporomandibular joint disorder); Angular cheilosis Start: 02-15-2024 End: 02-15-2024 [facility] Start: 02-14-2024 End: 02-14-2024 E-mail encounter from caregiver Kory Kirkland APRN.[facility] Work Phone: Otolaryngology Start: 02-14-2024 End: 02-14-2024 Patient encounter procedure Kory Kirkland APRN.[facility] Work Phone: Otolaryngology Comment on above: Appointment Start: 02-09-2024 End: 02-09-2024 Emergency department patient visit [facility] Start: 02-09-2024 End: 02-09-2024 ambulatory Kory London Hallevasiliy [facility] Work Phone: Otolaryngology Comment on above: Cheeks and nose, red ear Start: 02-08-2024 End: 02-08-2024 Orders Only Jeimy Hi DMD Work Phone: [facility] Dentistry Comment on above: Dental Start: 02-04-2024 End: 02-04-2024 Emergency department patient visit [facility] Start: 01-31-2024 End: 01-31-2024 Emergency department patient visit [facility] Start: 01-28-2024 End: 01-28-2024 ambulatory Tien Heredia PT Work Phone: [facility] Comment on above: TMJ dysfunction (Dana juan Dx); Face pain; Intractable chronic cluster headache Start: 01-26-2024 End: 01-26-2024 Telephone encounter Dahlia FAEY [facility] Start: 01-26-2024 End: 01-26-2024 ambulatory MACKENZIE STATON Facility:[facility] Start: 01-26-2024 End: 01-26-2024 Unlisted evaluation and management service Mackenzie Staton MD Work Phone: Plastic Surgery Comment on above: Oropharyngeal dyspha tomi (Primary Dx); Left facial pain Start: 01-20-2024 End: 01-20-2024 Office outpatient visit 25 minutes Carrington Fritz MD Work Phone: [facility] Internal Medicine/Pediatrics Comment on above: Edentulous orofacial dystonia (Primary Dx) Start: 01-20-2024 End: 01-20-2024 ambulatory [facility] Start: 01-18-2024 End: 01-18-2024 Telephone encounter Carrington Fritz MD Work Phone: [facility] Internal Medicine/Pediatrics Start: 01-18-2024 End: 01-18-2024 ambulatory Rossana Harding DERIK.[facility] Work Phone: Neurology [facility] Comment on above: Atypical facial pain (Primary Dx); Amphetamine and other psychostimulant dependence, episodic (HCC); Polysubstance dependence including opioid type drug, episodic abuse (HCC); TMJ click Start: 01-18-2024 End: 01-18-2024 Telemedicine consultation with patient Rossana Harding APRN.[facility] Work Phone: Neurology [facility] Start: 01-17-2024 End: 01-18-2024 ambulatory Eyal Garcia MD Work Phone: [facility] Comment on above: Roof of mouth infect ion Start: 01-17-2024 End: 01-17-2024 Emergency department patient visit [facility] Start: 01-15-2024 End: 01-15-2024 ambulatory Kory Alvarenga RN NURSE PAIN MANAGEMENT SPECIALIST Comment on above: Patient Update Start: 01-14-2024 End: 01-27-2024 ambulatory JEIMY HI Facility:[facility] Start: 01-10-2024 ambulatory [facility] Facility: [facility] Start: 01-06-2024 End: 01-06-2024 Subsequent hospital visit by physician [facility] S[facility] (1.5t) Work Phone: Radiology Comment on above: Right facial pain [R 51.9] Start: 01-06-2024 End: 01-06-2024 ambulatory Laurence Cox RT(R) Radiology Comment on above: Radiology MRI Start: 01-06-2024 End: 01-06-2024 Patient encounter procedure Laurence Cox RT(R) Radiology Start: 01-05-2024 End: 01-05-2024 Telephone encounter Eyal Garcia MD Work Phone: [facility] Start: 12-31-2023 End: 01-05-2024 ambulatory Eyal Garcia MD Work Phone: [facility] Comment on above: Thorazine Start: 12-31-2023 End: 12-31-2023 Telephone encounter Jeimy Hi JOCE Work Phone: [facility] Comment on above: CT Scan Update Patient Question Start: 12-29-2023 End: 12-29-2023 ambulatory [facility] Start: 12-29-2023 End: 12-31-2023 Telephone encounter Jeff Cunningham CMA [facility] Start: 12-28-2023 End: 12-28-2023 Telephone encounter Carrington Fritz MD Work Phone: [facility] Start: 12-27-2023 End: 12-27-2023 Office outpatient new 45 minutes Yon Chong MD Work Phone: [facility] Comment on above: Dry mouth and eyes ( Primary Dx); TMJ (temporomandibular joint disorder); Onychomycosis of toenail; ASNHL (asymmetrical sensorineural hearing loss); Smoking Start: 12-27-2023 End: 12-27-2023 ambulatory YON CHONG [facility] Start: 12-27-2023 End: 12-28-2023 ambulatory CARRINGTON [facility] Start: 12-23-2023 End: 12-23-2023 Orders Only Gold BRISENO Work Phone: [facility] Start: 12-22-2023 End: 12-22-2023 Patient encounter procedure Fran-Sarahi Vu DO Work Phone: [facility] Comment on above: Otalgia, right (Prim erika Dx); Nasal bleeding; Asymmetrical hearing loss; DNS (deviated nasal septum); Hyperactive gag reflex; Dry mouth and eyes; Current smoker Start: 12-22-2023 End: 12-22-2023 ambulatory [facility] Start: 12-21-2023 End: 12-21-2023 ambulatory [facility] Start: 12-21-2023 End: 12-21-2023 Telephone encounter Carrington Fritz MD Work Phone: [facility] Internal Medicine/Pediatrics Comment on above: Otalgia of both ears (Primary Dx); Fullness in ear, bilateral Start: 12-20-2023 End: 12-24-2023 ambulatory AKI QUIROZ Facility:[facility] Start: 12-20-2023 End: 12-20-2023 Patient encounter procedure Jeimy Hi DMD Work Phone: [facility] Comment on above: Diffuse myofascial p ain syndrome (Primary Dx) Start: 12-17-2023 End: 12-17-2023 Emergency department patient visit [facility] Start: 12-16-2023 End: 12-16-2023 Refill Carrington Fritz MD Work Phone: [facility] Internal Medicine/Pediatric[facility] Comment on above: Subacute sinusitis, unspecified location Start: 12-16-2023 End: 12-16-2023 Office outpatient visit 15 minutes Carrington Fritz MD Work Phone: [facility] Internal Medicine/Pediatric[facility] Comment on above: Subacute sinusitis, unspecified location (Primary Dx); Anxiety Start: 12-16-2023 End: 12-16-2023 ambulatory [facility] Start: 12-14-2023 End: 12-14-2023 Emergency department patient visit [facility] Start: 12-13-2023 End: 12-13-2023 ambulatory [facility] Start: 12-10-2023 End: 12-10-2023 ambulatory Eyal Garcia MD Work Phone: Neurology [facility] Comment on above: Atypical facial pain (Primary Dx); Muscular pain; Right facial pain Start: 12-10-2023 End: 12-10-2023 Telemedicine consultation with patient Eyal Garcia MD Work Phone: Neurology [facility] Start: 12-08-2023 End: 12-08-2023 ambulatory KORY KIRKLAND Facility:[facility] Start: 12-08-2023 End: 12-08-2023 Patient encounter procedure Tatyana Roman SERAFIN Work Phone: Audiology Comment on above: Sensorineural hearin g loss, bilateral (Primary Dx); Otalgia of both ears; Ear pressure, bilateral; Occupational exposure to noise Dislocation of tempo romandibular joint, subsequent encounter (Primary Dx); Muscular pain Start: 12-07-2023 End: 12-07-2023 Telephone encounter Prisca Maria DDS Work Phone: [facility] Comment on above: CT Scan Issue Start: 12-06-2023 End: 12-09-2023 ambulatory AKI QUIROZ Facility:[facility] Start: 12-06-2023 End: 12-06-2023 Patient encounter procedure Prisca Maria DDS Work Phone: [facility] Comment on above: Atypical face pain ( Primary Dx) Start: 11-28-2023 [facility] Start: 11-24-2023 End: 11-24-2023 Office outpatient visit 15 minutes Carrington Fritz MD Work Phone: [facility] Internal Medicine/Pediatrics Comment on above: Oral thrush (Primary Dx); TMJ (temporomandibular joint disorder) Start: 11-24-2023 End: 11-24-2023 ambulatory [facility] Start: 11-23-2023 End: 11-23-2023 Telephone encounter Dahlia FAYE [facility] Internal Medicine/Pediatrics Start: 11-16-2023 End: 11-18-2023 Subsequent hospital visit by physician Carmen Mcadams MD Work Phone: [facility] CT Scan Comment on above: Dysphagia, unspecifi ed type Start: 11-16-2023 End: 11-18-2023 [facility] Start: 11-11-2023 End: 11-11-2023 Office outpatient new 45 minutes Carrington Fritz MD Work Phone: [facility] Internal Medicine/Pediatrics Comment on above: Arthralgia of right temporomandibular joint (Primary Dx); TMJ (temporomandibular joint disorder); Thrush; Onychomycosis of toenail Start: 11-11-2023 End: 11-11-2023 ambulatory CARRINGTON FRITZ [facility] Start: 11-06-2023 End: 11-06-2023 Emergency department patient visit COLETTE ALMAGUER [facility] Start: 10-28-2023 End: 10-28-2023 Emergency department patient visit [facility] ED Comment on above: Jaw pain (Primary Dx ) Start: 10-28-2023 End: 11-02-2023 ambulatory [facility] Facility:[facility] Start: 10-28-2023 End: 10-28-2023 Emergency department patient visit Summer Llamas MD Work Phone: [facility] Emergency Medicine Comment on above: Jaw symptoms/complai nts (C/o R side jaw/head pain; pt had recent surgery 4 months ago on mouth and states he opened his mouth wide and heard a pop ) Start: 10-18-2023 End: 10-18-2023 Emergency department patient visit COLETTE ALMAGUER [facility] Start: 10-09-2023 End: 10-09-2023 Emergency department patient visit LYN Buck LANDON [facility] Start: 09-29-2023 End: 09-29-2023 Telephone encounter Babs Recinos DMD Work Phone: [facility] Start: 09-24-2023 End: 09-28-2023 Patient encounter procedure Babs Recinos DMD Work Phone: [facility] Comment on above: Myalgia of masticati on muscle (Primary Dx) Start: 09-24-2023 End: 09-28-2023 ambulatory AKI RICHIE Facility:[facility] Start: 09-22-2023 End: 09-23-2023 Emergency department patient visit YOLANDA BUSTILLOS [facility] Start: 09-20-2023 End: 09-22-2023 ambulatory [facility] Start: 09-01-2023 End: 09-02-2023 Emergency department patient visit OLVE PRUITT [facility] Start: 08-26-2023 ambulatory Phillip Rafaela Facility:[facility] Start: 08-25-2023 End: 08-25-2023 FQHC visit, estab pt Colette Almaguer [facility] Work Phone: [facility] Work Phone: Start: 08-25-2023 End: 08-25-2023 General Colette Almaguer [facility] Work Phone: [facility] Work Phone: Start: 08-25-2023 End: 08-25-2023 FQHC visit, estab pt Colette Almaguer [facility] Work Phone: [facility] Work Phone: Start: 08-05-2023 ambulatory [facility] Start: 08-04-2023 End: 08-04-2023 Patient encounter procedure Fran-Sarahi Vu DO Work Phone: [facility] Comment on above: Otalgia, right (Prim erika Dx); Asymmetrical hearing loss; Sensorineural hearing loss (SNHL) of left ear with unrestricted hearing of right ear; Sensation of fullness in right ear; DNS (deviated nasal septum); Nasal congestion; Tonsil stone; TMJ tenderness, bilateral; Other tobacco product nicotine dependence, uncomplicated; 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; Former smoker Start: 07-15-2023 End: 07-15-2023 FQHC visit, estab pt Colette Almaguer [facility] Work Phone: [facility] Work Phone: Start: 07-15-2023 End: 07-15-2023 General Colette Almaguer [facility] Work Phone: [facility] Work Phone: Start: 07-14-2023 End: 07-14-2023 Patient encounter procedure Fran-Sarahi Vu DO Work Phone: [facility] Comment on above: Otalgia, right (Prim erika Dx); Sensorineural hearing loss (SNHL) of left ear with unrestricted hearing of right ear; Asymmetrical hearing loss; Nasal obstruction; Nasal congestion; DNS (deviated nasal septum); Former smoker Start: 07-14-2023 End: 07-14-2023 Clinical Support [facility] 1 [facility] Comment on above: Otalgia, right (Prim erika Dx); Sensation of fullness in right ear; Sensorineural hearing loss (SNHL) of left ear with unrestricted hearing of right ear Start: 06-28-2023 ambulatory [facility] Start: 06-03-2023 End: 06-03-2023 General Colette Almaguer [facility] Work Phone: [facility] Work Phone: Start: 06-03-2023 End: 06-03-2023 FQHC visit, estab pt Colette Almaguer [facility] Work Phone: [facility] Work Phone: Start: 05-18-2023 ambulatory [facility] Start: 05-10-2023 End: 05-10-2023 FQHC visit, estab pt Colette Almaguer [facility] Work Phone: [facility] Work Phone: Start: 04-26-2023 End: 04-26-2023 ambulatory Colette Almaguer [facility] Work Phone: [facility] Work Phone: Start: 04-26-2023 End: 04-26-2023 General Colette Almaguer [facility] Work Phone: [facility] Work Phone: Start: 04-20-2023 ambulatory [facility] Start: 04-12-2023 End: 04-12-2023 FQHC visit, estab pt Bri Barrow DIE MAKER BENCH STAMPING Work Phone: [facility] Work Phone: Start: 04-12-2023 End: 04-12-2023 FQHC visit new patient Colette [facility] Work Phone: [facility] Work Phone: Start: 03-30-2023 ambulatory [facility] Start: 03-15-2023 limited oral evaluat ion - problem focused Winston Carbajal DDS Work Phone: [facility] Start: 03-15-2023 End: 03-15-2023 Emergency department patient visit Winston Carbajal DDS Work Phone: [facility] Work Phone: Start: 02-15-2023 ambulatory Bonillaochoa Coronahman DDS [facility] Start: 09-21-2022 End: 09-21-2022 Emergency department patient visit [facility] Start: 04-22-2022 End: 04-23-2022 Emergency department patient visit ALLIE BUSTAMANTE [facility] Start: 04-22-2022 End: 04-23-2022 Emergency department patient visit Allie Bustamante MD Work Phone: [facility] Comment on above: Delusions (CMS/HCC) (HCC) (Primary Dx); Paranoia (CMS/HCC) (HCC) Start: 04-19-2022 End: 04-19-2022 Emergency department patient visit MECHELLE GARCIATER [facility] Start: 04-19-2022 End: 04-19-2022 Emergency department patient visit Marlon Abebe MD Work Phone: [facility] Comment on above: TMJ (temporomandibul ar joint syndrome) (Primary Dx) Start: 02-18-2022 End: 02-24-2022 Evaluation and management of inpatient JESSIE RAMÍREZ [facility] Start: 02-17-2022 Evaluation and manag ement of inpatient PHYSICIAN ASA [facility] Start: 02-17-2022 End: 02-18-2022 Emergency department patient visit PHYSICIAN ASA [facility] Start: 01-07-2022 Admission to establishment Nicolas BEDOLLAW [facility] Start: 01-07-2022 ambulatory Nicolas Rojo DIE MAKER BENCH STAMPING [facility] Intake Comment on above: Psychiatric Problem (/) Start: 10-02-2020 End: 10-02-2020 Subsequent hospital visit by physician Mechelle Reardon MD Work Phone: [facility] Start: 07-21-2018 End: 07-21-2018 Emergency department patient visit PREM [facility] Start: 10-29-2017 End: 10-29-2017 Emergency department patient visit NONE PHYSICIAN Facility:A Start: 10-23-2017 Emergency department patient visit Facility:[facility] Start: 08-13-2017 End: 08-13-2017 Emergency department patient visit [facility] Facility:[facility] Start: 09-16-2016 Ambulatory HUEDonny Sethi [facility] Facility: [facility] Procedures Date Procedure Procedure Detail Performing Clinician Start: 07-10-2024 Mri brain brain stem w/o w/contrast material Kulwinder Nur MD Work Phone: Start: 07-10-2024 Radiologic exam swallow function contrast study Kulwinder Nur MD Work Phone: Start: 05-15-2024 Arthrocentesis aspir&/inj major jt/bursa w/o us Brandy Erickson PA-C Work Phone: Start: 05-03-2024 Biopsy Biopsy FRAN-SARAHI [facility] Start: 04-26-2024 Mri any jt upper extremity w/o contrast matrl Brandy Erickson PA-C Work Phone: Start: 04-14-2024 Iadna-dna/rna gi pthgn multiplex probe tq 03-01 Jose R Aquino MD Work Phone: Start: 04-06-2024 Body mass index documented Vanesa Bib dinorah BOBBIN INSPECTOR Work Phone: Start: 04-06-2024 Collection venous blood venipuncture Vanesa Crouch BOBBIN INSPECTOR Work Phone: Start: 04-06-2024 Current tobacco smoker Vanesa malik BOBBIN INSPECTOR Work Phone: Start: 04-06-2024 Most recent diastol blood pres >/equal 90 mm hg Vanesa Crouch BOBBIN INSPECTOR Work Phone: Start: 04-06-2024 Most recent systolic blood press 130-139mm hg Vanesa Crouch BOBBIN INSPECTOR Work Phone: Start: 04-06-2024 Psychotherapy w/patient 30 minutes Bri Barrow DIE MAKER [employer]ENCH STAMPING Work Phone: Start: 03-29-2024 Ct angiography head w/contrast/noncontrast Kay Bonus PA-C Work Phone: Start: 03-29-2024 Ct angiography neck w/contrast/noncontrast Kay Bonus PA-C Work Phone: Start: 03-06-2024 Current tobacco smoker Vanesa malik BOBBIN INSPECTOR Work Phone: Start: 03-06-2024 Drug test prsmv read direct optical obs pr date Vanesa Crouch BOBBIN INSPECTOR Work Phone: Start: 03-06-2024 Most recent diastolic blood pressure < 80 mm hg Vanesa Crouch BOBBIN INSPECTOR Work Phone: Start: 03-06-2024 Most recent systolic blood pressure <130 mm hg Vanesa Crouch BOBBIN INSPECTOR Work Phone: Start: 03-06-2024 Psychotherapy w/patient 30 minutes Patrica Quarles DRY WALL PLASTERER Work Phone: Start: 03-06-2024 Pt scrnd tobacco use rcvd tobacco cessation talk Vanesa Crouch BOBBIN INSPECTOR Work Phone: Start: 01-06-2024 Mri brain brain stem w/o w/contrast material Eyal Garcia MD Work Phone: Start: 12-16-2023 Follow-up visit Follow-up [facility] Start: 12-09-2023 HEARING TEST/AUDIOGRAM Tatyana Crowley UD Work Phone: Start: 11-16-2023 Ct soft tissue neck w/contrast material Carmen Mcadams MD Work Phone: Start: 11-11-2023 Adult depression screening assessment Carrington Fritz MD Work Phone: Start: 10-28-2023 Radiolog exam mandible compl minimum 4 views Dai Gustafson APRN [facility] Work Phone: Start: 08-25-2023 Body mass index documented Colette coleman [facility] Work Phone: Start: 08-25-2023 Current tobacco non-user cad cap copd pv dm Colette Almaguer [facility] Work Phone: Start: 08-25-2023 Drug test prsmv read direct optical obs pr date Colette Almaguer [facility] Work Phone: Start: 08-25-2023 Most recent diastolic blood pressure < 80 mm hg Colette Almaguer [facility] Work Phone: Start: 08-25-2023 Most recent systolic blood pressure <130 mm hg Colette Almaguer [facility] Work Phone: Start: 07-15-2023 Behav assmt w/score & docd/stand instrument Colette Almaguer [facility] Work Phone: Start: 07-15-2023 Current tobacco non-user cad cap copd pv dm Colette Almaguer [facility] Work Phone: Start: 07-15-2023 Depression screening Visit For: Screening Exam Depression Colette Almaguer [facility] Work Phone: Start: 07-15-2023 Most recent diastolic blood pressure 80-89 mm hg Colette Almaguer [facility] Work Phone: Start: 07-15-2023 Most recent systolic blood press 130-139mm hg Colette Almaguer [facility] Work Phone: Start: 07-15-2023 Pt scrnd tobacco use rcvd tobacco cessation talk Colette Almaguer [facility] Work Phone: Start: 06-03-2023 Current tobacco smoker Colette Morgan WATERSIDE WORKER Work Phone: Start: 06-03-2023 Most recent diastolic blood pressure < 80 mm hg Colette Almaguer [facility] Work Phone: Start: 06-03-2023 Most recent systolic blood pressure <130 mm hg Colette Almaguer [facility] Work Phone: Start: 06-03-2023 Venereal disease screening Visit For: Screening Exam Std Colette Alamguer [facility] Work Phone: Start: 05-10-2023 Current tobacco non-user cad cap copd pv dm Colette Almaguer [facility] Work Phone: Start: 05-10-2023 Most recent diastolic blood pressure < 80 mm hg Colette Almaguer [facility] Work Phone: Start: 05-10-2023 Most recent systolic blood pressure <130 mm hg Colette Almaguer [facility] Work Phone: Start: 05-10-2023 Pt scrnd tobacco use rcvd tobacco cessation talk Colette Almaguer [facility] Work Phone: Start: 04-26-2023 Current tobacco smoker Colette Morgan WATERSIDE WORKER Work Phone: Start: 04-26-2023 Most recent diastolic blood pressure < 80 mm hg Colette Almaguer [facility] Work Phone: Start: 04-26-2023 Most recent systolic blood pressure <130 mm hg Colette Almaguer [facility] Work Phone: Start: 04-26-2023 Pt scrnd tobacco use rcvd tobacco cessation talk Colette Almaguer [facility] Work Phone: Start: 04-12-2023 Current tobacco smoker Colette Morgan WATERSIDE WORKER Work Phone: Start: 04-12-2023 Hemoglobin glycosylated a1c Colette Almaguer [facility] Work Phone: Start: 04-12-2023 Hepatitis c antibody Colette Almaguer [facility] Work Phone: Start: 04-12-2023 Most recent diastolic blood pressure < 80 mm hg Colette Almaguer [facility] Work Phone: Start: 04-12-2023 Most recent hemoglobin a1c level < 7.0% Colette Almaguer [facility] Work Phone: Start: 04-12-2023 Most recent systolic blood pressure <130 mm hg Colette Almaguer [facility] Work Phone: Start: 04-12-2023 Operative procedure on hand Winston Carbajal DDS Work Phone: Start: 04-12-2023 Psychotherapy w/patient 30 minutes Bri Barrow DIE MAKER [employer]AMPING Work Phone: Start: 04-12-2023 Pt scrnd tobacco use rcvd tobacco cessation talk Co[facility] Work Phone: Start: 03-15-2023 panoramic radiographic image Winston Carbajal DDS Work Phone: Start: 01-12-2023 Lipid 1996 panel - Serum or Plasma He Calle CCC-REPAIR SUPERVISOR Start: 09-21-2022 End: 09-21-2022 EKG impression Ezequiel luthre Start: 04-22-2022 Urinalysis complete panel - Urine Laurita Tolbert PA-C Work Phone: Start: 04-22-2022 Urnls dip stick/tablet rgnt auto w/o microscopy Laurita Tolbert PA-C Work Phone: Start: 04-22-2022 SARS-CoV-2 (COVID-19) Ag [Presence] in Respiratory specimen by Rapid immunoassay Laurita Tolbert PA-C Work Phone: Start: 04-22-2022 Comprehensive metabolic panel Laurita Tolbert PA-C Work Phone: Start: 04-22-2022 End: 04-22-2022 Drug test def 1-7 classes Laurita Tolbert PA-C Work Phone: Start: 04-22-2022 Ecg routine ecg w/least 12 lds trcg only w/o i&r Laurita Tolbert PA-C Work Phone: Start: 04-22-2022 Ct head/brain w/o contrast material Laurita Tolbert PA-C Work Phone: Start: 02-18-2022 Lipid 1996 panel - Serum or Plasma Kory Nerivasiliy [facility] Work Phone: Start: 10-02-2020 Comprehensive metabolic panel Mechelle Reardon MD Work Phone: Start: 10-02-2020 Lipid panel Mechelle Reardon MD Work Phone: Start: 10-02-2020 Lipid 1996 panel - Serum or Plasma Marlon Abebe MD Work Phone: Start: 08-10-2018 Follow-up visit Start: 08-10-2018 Follow-up visit Plan of Treatment Date Care Activity Detail Author Start: 03-08-2034 DTaP,Tdap and Td Vaccines (2 - Td or Tdap) DTaP,Tdap and Td Vaccines (2 - Td or Tdap) [facility] Start: 03-08-2034 DTaP/Tdap/Td vaccine (2 - Td or Tdap) DTaP/Tdap/Td vaccine (2 - Td or Tdap) [facility] Start: 03-08-2034 DTaP/Tdap/Td Vaccines (2 - Td or Tdap) DTaP/Tdap/Td Vaccines (2 - Td or Tdap) [facility] Start: 03-08-2034 Tetanus vaccination Tetanus (Td or Tdap) Booster [facility] Start: 03-08-2034 Urine microalbumin profile DTaP,Tdap,Td Vaccine (2 - Td or Tdap) [facility] Start: 01-13-2028 Lipid panel [facility] Start: 04-14-2027 Diabetes Screening Diabetes Screening [facility] Start: 02-19-2027 Lipid panel Cholesterol [facility] Start: 02-18-2027 Lipid panel [facility] Start: 12-16-2026 Diabetes Screening Diabetes Screening [facility] Start: 07-21-2026 Diabetes Screening Diabetes Screening [facility] Start: 02-11-2026 Shingles (RZV) Vaccine (1 of 2) Shingles (RZV) Vaccine (1 of 2) [facility] Start: 02-11-2026 Zoster Vaccines (1 of 2) Zoster Vaccines (1 of 2) [facility] Start: 10-02-2025 Lipid panel [facility] Start: 08-18-2025 Adult BMI Screening Adult BMI Screening [facility] Start: 08-18-2025 Tobacco Screening Tobacco Screening [facility] Start: 08-15-2025 Adult BMI Screening Adult BMI Screening [facility] Start: 08-15-2025 Tobacco Screening Tobacco Screening [facility] Start: 07-04-2025 Tobacco Screening Tobacco Screening [facility] Start: 06-16-2025 Tobacco Screening Tobacco Screening [facility] Start: 06-01-2025 Adult BMI Screening Adult BMI Screening [facility] Start: 06-01-2025 Tobacco Screening Tobacco Screening [facility] Start: 05-30-2025 Tobacco Screening Tobacco Screening [facility] Start: 05-26-2025 Adult BMI Screening Adult BMI Screening [facility] Start: 05-08-2025 Adult BMI Screening Adult BMI Screening [facility] Start: 05-08-2025 Tobacco Screening Tobacco Screening [facility] Start: 05-03-2025 Adult BMI Screening Adult BMI Screening [facility] Start: 05-03-2025 Tobacco Screening Tobacco Screening [facility] Start: 05-01-2025 Adult BMI Screening Adult BMI Screening [facility] Start: 05-01-2025 Tobacco Screening Tobacco Screening [facility] Start: 04-27-2025 Diabetes screen Diabetes screen [facility] Start: 04-13-2025 Tobacco Screening Tobacco Screening [facility] Start: 03-24-2025 Tobacco Screening Tobacco Screening [facility] Start: 03-16-2025 Adult BMI Screening Adult BMI Screening [facility] Start: 03-16-2025 Tobacco Screening Tobacco Screening [facility] Start: 03-15-2025 Adult BMI Screening Adult BMI Screening [facility] Start: 02-16-2025 Adult BMI Screening Adult BMI Screening [facility] Start: 02-16-2025 Tobacco Screening Tobacco Screening [facility] Start: 02-08-2025 Adult BMI Screening Adult BMI Screening [facility] Start: 02-08-2025 Tobacco Screening Tobacco Screening [facility] Start: 02-03-2025 Adult BMI Screening Adult BMI Screening [facility] Start: 02-03-2025 Tobacco Screening Tobacco Screening [facility] Start: 01-19-2025 Adult BMI Screening Adult BMI Screening [facility] Start: 01-19-2025 Tobacco Screening Tobacco Screening [facility] Start: 01-16-2025 Adult BMI Screening Adult BMI Screening [facility] Start: 01-16-2025 Tobacco Screening Tobacco Screening [facility] Start: 01-07-2025 DIABETES SCREEN DIABETES SCREEN [facility] Start: 12-21-2024 Adult BMI Screening Adult BMI Screening [facility] Start: 12-21-2024 Tobacco Screening Tobacco Screening [facility] Start: 12-16-2024 Adult BMI Screening Adult BMI Screening [facility] Start: 12-16-2024 Tobacco Screening Tobacco Screening [facility] Start: 12-13-2024 Adult BMI Screening Adult BMI Screening [facility] Start: 12-13-2024 Tobacco Screening Tobacco Screening [facility] Start: 11-23-2024 Adult BMI Screening Adult BMI Screening [facility] Start: 11-23-2024 Tobacco Screening Tobacco Screening [facility] Start: 11-10-2024 Adult BMI Screening Adult BMI Screening [facility] Start: 11-10-2024 Depression Screening Depression Screening [facility] Start: 11-10-2024 Tobacco Screening Tobacco Screening [facility] Start: 11-06-2024 Influenza vaccination Influenza Vaccine [facility] Start: 10-25-2024 End: 10-25-2024 Patient encounter procedure 10/25/2024 3:30 PM EDT Office Visit Neurology [address] [place] [id number] Juan F Wright DO [address] [place] [address] Facial lupillo. Injection sooner Neurology Comment on above: Facial lupillo. Injection sooner Start: 10-19-2024 End: 10-19-2024 Patient encounter procedure 10/19/2024 2:15 PM EDT Office Visit [facility] [address] [place] [phone] Gold Jones, SUZANNA [address] [place] [address] [facility] Start: 10-02-2024 End: 10-02-2024 Patient encounter procedure 10/02/2024 11:00 AM EDT Office Visit [facility] [address] [place] [address] Sammie Landa APRN.MANAGER OF MANUFACTURING [address] [place] [address] est care [facility] Comment on above: est care Start: 09-27-2024 End: 09-27-2024 ambulatory 09/27/2024 8:00 AM EDT OT/PT/Speech Visit [facility] [address] [place] [phone] Yoli Hankins, [facility]-REPAIR SUPERVISOR [address] [place] [address] [facility] Speech Therapy Comment on above: ST Start: 09-20-2024 End: 09-20-2024 ambulatory 09/20/2024 7:30 AM EDT OT/PT/Speech Visit [facility] [address] [place] [phone] He Calle, CCC-REPAIR SUPERVISOR [address] [place] [address] [facility] Speech Therapy Comment on above: ST Start: 09-15-2024 End: 09-15-2024 Admission to same day surgery center [facility] Procedures Comment on above: INJECTION BURSA INTERMEDIATE Bilat TMJ [ (CPT )] Start: 09-15-2024 End: 09-15-2024 Arthrocentesis aspir&/inj interm jt/burs w/o us [facility] Start: 09-15-2024 Subsequent hospital visit by physician [facility] Procedures Start: 09-13-2024 End: 09-13-2024 ambulatory 09/13/2024 7:30 AM EDT OT/PT/Speech Visit [facility] [address] [place] [phone] He Calle, CCC-REPAIR SUPERVISOR [address] [place] [address] [facility] Speech Therapy Comment on above: ST Start: 09-07-2024 End: 09-07-2024 Patient encounter procedure 09/07/2024 8:50 AM EDT Office Visit Otolaryngology [address] [address] Callie Don PA [address] [place] [address] THROAT ISSUE, SWALLOWING ISSUE, MOUTH Otolaryngology Comment on above: THROAT ISSUE, SWALLOWING ISSUE, MOUTH Start: 09-06-2024 End: 09-06-2024 ambulatory 09/06/2024 7:30 AM EDT OT/PT/Speech Visit [facility] [address] [place] [phone] He Calle, CCC-REPAIR SUPERVISOR [address] [place] [address] [facility] Speech Therapy Comment on above: ST Start: 09-01-2024 End: 09-01-2024 Patient encounter procedure 09/01/2024 12:45 PM EDT Office Visit [facility] [address] [place] [phone] Erica Hart MD [address] [place] [address] Dermatitis [facility] Comment on above: Dermatitis Start: 08-31-2024 Adult BMI Screening Adult BMI Screening [facility] Start: 08-21-2024 End: 08-21-2025 MR Face WO and W contrast IV MR face with and without contrast Imaging Routine Hx of trauma of hard palate Expected: 08/21/2024, Expires: 08/21/2025 [facility] Work Phone: Comment on above: Expected: 08/21/2024, Expires: Start: 08-18-2024 End: 08-18-2024 Patient encounter procedure 08/18/2024 10:15 AM EDT Office Visit [facility]Pediatrics [address] [place] [phone] Carrington Fritz MD [address] [place] [address], [address] [place], [place] [phone] [facility] Start: 08-16-2024 Tobacco Screening [facility] Start: 08-15-2024 Adult BMI Screening Adult BMI Screening [facility] Start: 08-15-2024 Tobacco Screening Tobacco Screening [facility] Start: 08-15-2024 End: 08-15-2024 Patient encounter procedure 08/15/2024 10:45 AM EDT Office Visit [facility] [address] [place] [phone] Gold Jones PA [address] [place], [place] [phone] [facility] Start: 08-14-2024 End: 08-14-2024 ambulatory 08/14/2024 9:45 AM EDT OT/PT/Speech Visit [facility] Therapy [address] [place] [address] He Calle, CCC-REPAIR SUPERVISOR [address] [place] [address] Jaw pain [R68.84] [facility] Comment on above: Jaw pain [R68.84] Start: 08-10-2024 End: 08-10-2024 Patient encounter procedure 08/10/2024 9:00 AM EDT Office Visit Infectious Disease [address] [place] [address] [place] [address] [place] [address] Black hairy tongue Infectious Disease Comment on above: Black hairy tongue Start: 08-01-2024 End: 08-01-2024 ambulatory 08/01/2024 6:00 PM EDT OT/PT/Speech Visit [facility] Speech Therapy [address] [place], [place] [phone] Antonia Coffman, CCC-REPAIR SUPERVISOR [address] [place], [place] [id number] I've been told the floor of my mouth is broken [facility] Speech Therapy Comment on above: I've been told the floor of my mouth is broken Start: 07-28-2024 End: 07-28-2024 Patient encounter procedure 07/28/2024 2:00 PM EDT Office Visit Otolaryngology [address] [address] Donal Hays MD [address] [place], [place] [phone] post op Otolaryngology Comment on above: post op Start: 07-26-2024 End: 07-26-2024 Patient encounter procedure 07/26/2024 2:00 PM EDT Office Visit [facility] Neurology [address] [address] Kulwinder Nur MD [address] [facility] [address] [place] [address] 3 mos fup [facility] Neurology Comment on above: 3 mos fup Start: 07-20-2024 End: 07-20-2024 Admission to same day surgery center 07/20/2024 7:30 AM EDT - 07/20/2024 10:41 AM EDT Surgery Admitting [address] [place] [address] Donal Hays MD [address] [place] [address] REPAIR NASAL VESTIBULAR STENOSIS Admitting Comment on above: REPAIR NASAL VESTIBULAR STENOSIS Start: 07-20-2024 End: 07-20-2024 Repair nasal vestibular stenosis REPAIR NASAL VESTIBULAR 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 Hypertrophy of inferior nasal turbinate Deviated nasal septum 07/20/2024 7:30 AM EDT [facility] Start: 07-20-2024 End: 07-20-2024 Septoplasty/submucous resecj w/wo cartilage grf SEPTOPLASTY 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 Hypertrophy of inferior nasal turbinate Deviated nasal septum 07/20/2024 7:30 AM EDT [facility] Start: 07-20-2024 End: 07-20-2024 Submucous rescj inferior turbinate prtl/compl RESECTION SUBMUCOSAL TURBINATES 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 Hypertrophy of inferior nasal turbinate Deviated nasal septum 07/20/2024 7:30 AM EDT [facility] Start: 07-20-2024 Subsequent hospital visit by physician 07/20/2024 7:30 AM EDT Hospital Encounter Admitting [address] [place] [address] Donal Hays MD [address] [place] [address] 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], Refractory obstruction of nasal airway [J34.89], Hypertrophy of inferior nasal turbinate [J34.3], Deviated nasal septum [J34.2] Admitting Comment on above: 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], Refra ctory obstruction of nasal airway [J34.89], Hypertrophy of inferior nasal turbinate [J34.3], Deviated nasal septum [J34.2] Start: 07-13-2024 Adult BMI Screening Adult BMI Screening [facility] Start: 07-13-2024 Tobacco Screening Tobacco Screening [facility] tem Start: 07-07-2024 End: 07-07-2024 Patient encounter procedure 07/07/2024 1:00 PM EDT Appointment [facility] [address] [place] [address] [facility] Start: 07-06-2024 End: 07-06-2024 Anesthesia consultation 07/06/2024 1:40 PM EDT PAT Pre Anesthesia [address] [place] [address] 2, Pacc [place] [address] [place] [address] pacc Pre Anesthesia Comment on above: pacc Start: 07-04-2024 End: 07-04-2024 Patient encounter procedure 07/04/2024 12:30 PM EDT Office Visit [facility] [address] [place] [phone] Gold Jones, PA [address] [facility] [place] [address] [facility] Start: 07-04-2024 End: 07-04-2024 Patient encounter procedure 07/04/2024 10:10 AM EDT Office Visit Otolaryngology [address] [facility] [address] [place] [address] Luis Enrique Small MD [address] [place] [address] [place] [address] left facial pain Otolaryngology Comment on above: left facial pain Start: 06-20-2024 End: 06-20-2024 Patient encounter procedure 06/20/2024 2:30 PM EDT Office Visit [facility] [address] [place] [address] Erica Hart MD [address] [place] [address] severe dry skin around scalp [facility] Comment on above: severe dry skin around scalp Start: 06-16-2024 End: 06-16-2024 Patient encounter procedure 06/16/2024 2:45 PM EDT Appointment [facility] - MR [address] [place] [phone] [facility] - Start: 06-16-2024 End: 06-16-2024 Admission to same day surgery center [facility] - Pain Procedures Comment on above: INJECTION BURSA LARGE JOINT: bilat tmj [ (CPT )] INJECTION BURSA INTE RMEDIATE Bilat TMJ [ (CPT )] Start: 06-16-2024 End: 06-16-2024 Arthrocentesis aspir&/inj interm jt/burs w/o us INJECTION BURSA INTERMEDIATE TMJ (temporomandibular joint disorder) 06/16/2024 8:09 AM EDT [facility] Start: 06-16-2024 End: 06-16-2024 Arthrocentesis aspir&/inj major jt/bursa w/o us INJECTION BURSA LARGE JOINT TMJ (temporomandibular joint disorder) 06/16/2024 8:09 AM EDT [facility] Start: 06-16-2024 Subsequent hospital visit by physician 06/16/2024 8:09 AM EDT Hospital Encounter [facility] - Pain Procedures [address] [place] [phone] Laurence Blankenship MD [address] [place], [place] [phone] [facility] - Pain Procedures Start: 06-13-2024 End: 06-13-2024 Patient encounter procedure [facility] Comment on above: severe dry skin around scalp Start: 06-12-2024 End: 06-12-2024 Patient encounter procedure 06/12/2024 2:15 PM EDT Appointment [facility] [place] [address] [facility] - MR Start: 06-06-2024 End: 06-06-2024 Patient encounter procedure 06/06/2024 1:00 PM EDT Appointment [facility] - Total Rehab [address] [place] [phone] [facility] Start: 06-01-2024 End: 06-01-2025 MRA Head vessels WO contrast MRA head without contrast Imaging Routine Facial pain Expected: 06/01/2024, Expires: 06/01/2025 [facility] Work Phone: Comment on above: Expected: 06/01/2024, Expires: Start: 06-01-2024 End: 06-01-2024 Patient encounter procedure 06/01/2024 10:45 AM EDT Office Visit [facility] [address] [place] [place] [phone] Carrington Fritz MD [address] [place] [address], 1 [place], [place] [phone] [facility] Start: 05-31-2024 End: 05-31-2024 Patient encounter procedure 05/31/2024 2:30 PM EDT [facility] [address] [place] [address] Lyle Bailey DMD, MD [address] [place] [address] [facility] Start: 05-30-2024 End: 05-30-2024 Patient encounter procedure 05/30/2024 12:00 PM EDT Office Visit [facility] [address] [place] [address] Gold Jones PA [address] [place] [address] [facility] Start: 05-29-2024 End: 05-29-2024 Patient encounter procedure 05/29/2024 2:15 PM EDT Office Visit [facility]Re[facility] [address] [place] [address] Donal Hays MD [address] [place], [place] [phone] caudal septal deviatioin [facility] Comment on above: caudal septal deviatioin Start: 05-26-2024 End: 05-26-2024 Patient encounter procedure 05/26/2024 1:45 PM EDT Appointment [facility] - MRI Imaging [address] [place] [address] Carrington Fritz MD [address] [place] [address], 1 [place] [address] [facility] MRI Imaging Start: 05-22-2024 End: 05-22-2024 Patient encounter procedure 05/22/2024 4:00 PM EDT Office Visit [facility] [address] [place] [address] [place] [address] Gabe Marin, CONCRETE POINTER[facility] [address] [place] [address] follow up [facility] Comment on above: follow up Start: 05-19-2024 End: 05-19-2024 Patient encounter procedure 05/19/2024 6:40 PM EDT Appointment Radiology [address] [place] [address] CERVICAL SPINE WO IVCON Radiology Comment on above: CERVICAL SPINE WO IVCON Start: 05-17-2024 End: 05-17-2024 Patient encounter procedure 05/17/2024 10:00 AM EDT Office Visit [facility] [address] [facility] [address] [place] [phone] Chava Rapp MD [address] [facility], [address] [address] [facility] Start: 05-15-2024 End: 05-15-2024 Patient encounter procedure 05/15/2024 3:00 PM EDT Office Visit Orthopaedics [address] [place], [place] [phone] Brandy Erickson, [facility] [address] [place] [address] Left shoulder pain, requesting cortisone Orthopaedics Comment on above: Left shoulder pain, requesting cortisone Start: 05-12-2024 End: 05-12-2024 Patient encounter procedure 05/12/2024 3:00 PM EST Office Visit [facility]Re[facility] [address] [place] [address] Donal Hays MD [address] [place], [place] [phone] caudal septal deviatioin [facility] Comment on above: caudal septal deviatioin Start: 05-11-2024 End: 05-11-2024 Patient encounter procedure 05/11/2024 4:00 PM EST Appointment Radiology [address] [place] [address] Cervicalgia [M54.2] Radiology Comment on above: Cervicalgia [M54.2] Start: 05-08-2024 End: 05-08-2024 Patient encounter procedure 05/08/2024 2:45 PM EST Appointment [facility] Rehab [address] [place] [address] [facility] Start: 05-03-2024 End: 05-03-2024 Patient encounter procedure 05/03/2024 2:30 PM EST Appointment [facility] - Total Rehab [address] [place] [address] Cervicalgia; Localized swelling, mass or lump of neck [facility] Comment on above: Cervicalgia; Localized swelling, mass or lump of neck Start: 05-03-2024 End: 05-03-2024 Patient encounter procedure 05/03/2024 11:15 AM EST Procedure visit [facility] [address] [facility] [address] [place] [address] [facility], [address] [facility] [address] [place] [address] [facility] Start: 05-01-2024 End: 05-01-2025 MR Face WO and W contrast IV MR face with and without contrast Imaging Routine Facial pain Expected: 05/01/2024, Expires: 05/01/2025 [facility] Work Phone: Comment on above: Expected: 05/01/2024, Expires: Start: 04-26-2024 End: 04-26-2024 Patient encounter procedure 04/26/2024 12:40 PM EST Appointment Radiology [address] [place] [address] mri shoulder wo ivcon left, pt has hard time laying on back Radiology Comment on above: mri shoulder wo ivcon left, pt has hard time laying on back Start: 04-26-2024 Subsequent hospital visit by physician 04/26/2024 12:11 PM EST Hospital Encounter Radiology [address] [place] [address] Acute pain of left shoulder [M25.512] Radiology Comment on above: Acute pain of left shoulder [M25.512] Start: 04-24-2024 End: 04-24-2024 Patient encounter procedure 04/24/2024 2:00 PM EST Office Visit [facility] [address] [place] [address] [place] [address] Gabe Marin APRN.[facility] [address] [place] [address] Routine [facility] Comment on above: Routine Start: 04-21-2024 End: 04-21-2024 Patient encounter procedure 04/21/2024 8:55 AM EST Office Visit Otolaryngology [address] [address] Diya Bonilla MD [address] [address] DNS (deviated nasal septum) [J34.2] / ORAL INFECTION Otolaryngology Comment on above: DNS (deviated nasal septum) [J34.2] / OR AL INFECTION Start: 04-14-2024 End: 07-14-2024 Immunodeficiency panel - Blood by Flow cytometry (FC) [facility] Work Phone: Comment on above: Expected: 04/14/2024, Expires: Start: 04-13-2024 CBC W Auto Differential panel - Blood [facility] Start: 04-13-2024 Comprehensive metabolic 2000 panel - Serum or Plasma Comp. Metabolic Panel (14) [facility] Start: 04-13-2024 End: 04-13-2024 Patient encounter procedure 04/13/2024 9:15 AM EST Office Visit [facility] [address] [place] [phone] Gold Jones PA [address] [place] [address] [facility] Start: 04-11-2024 End: 04-11-2024 Patient encounter procedure 04/11/2024 1:00 PM EST Office Visit Otolaryngology [address] [place] [address] Carlos Lebron MD [address] [place] [address] DNS Otolaryngology Comment on above: DNS Start: 04-07-2024 End: 04-07-2024 Patient encounter procedure General Radiology Comment on above: X-ray left shoulder Left shoulder pain Start: 04-06-2024 FQHC visit, estab pt Medical Established Patient [facility] Work Phone: Start: 04-06-2024 End: 04-06-2024 Patient education based on identified need [facility] Start: 04-05-2024 Hepatitis A (HAV) Vaccine (2 of 3 - Hep A Twinrix risk 3-dose series) Hepatitis A (HAV) Vaccine (2 of 3 - Hep A Twinrix risk 3-dose series) [facility] Start: 04-05-2024 Hepatitis A vaccine (2 of 3 - Hep A Twinrix risk 3-dose series) Hepatitis A vaccine (2 of 3 - Hep A Twinrix risk 3-dose series) [facility] Start: 04-05-2024 Hepatitis A Vaccines (2 of 3 - Hep A Twinrix risk 3-dose series) Hepatitis A Vaccines (2 of 3 - Hep A Twinrix risk 3-dose series) [facility] Start: 04-05-2024 Hepatitis B vaccination Hepatitis B (HBV) Vaccine (2 of 3 - Hep B Twinrix 3-dose series) [facility] Start: 04-05-2024 Hepatitis B Vaccine (2 of 3 - Hep B Twinrix 3-dose series) Hepatitis B Vaccine (2 of 3 - Hep B Twinrix 3-dose series) [facility] Start: 04-05-2024 Hepatitis B Vaccines (2 of 3 - Hep B Twinrix 3-dose series) Hepatitis B Vaccines (2 of 3 - Hep B Twinrix 3-dose series) [facility] Start: 03-29-2024 End: 06-28-2024 Bacteria identified in Wound by Culture [facility] Work Phone: Comment on above: Expected: 03/29/2024, Expires: Start: 03-29-2024 End: 06-28-2024 Fungus identified in Unspecified specimen by Culture [facility] Comment on above: Expected: 03/29/2024, Expires: Start: 03-29-2024 End: 03-29-2024 Patient encounter procedure 03/29/2024 1:00 PM EST Office Visit Otolaryngology [address] [place] [address] Lyn Shipman PA-C [address] [place] [address] My nose , throat , tongue and cheeks are raw. Otolaryngology Comment on above: My nose , throat , tongue and cheeks are raw. Start: 03-24-2024 End: 03-24-2024 Admission to same day surgery center 03/24/2024 8:09 AM EST - 03/24/2024 8:16 AM EST Surgery [facility] [address] [place] [phone] Laurence Blankenship MD [address] [facility] [place], [place] [phone] INJECTION BURSA INTERMEDIATE Bilat TMJ [ (CPT )] [facility] Comment on above: INJECTION BURSA INTERMEDIATE Bilat TMJ [ (CPT )] Start: 03-24-2024 End: 03-24-2024 Arthrocentesis aspir&/inj interm jt/burs w/o us INJECTION BURSA INTERMEDIATE TMJ (temporomandibular joint disorder) 03/24/2024 8:09 AM EST [facility] Start: 03-24-2024 Subsequent hospital visit by physician 03/24/2024 8:09 AM EST Hospital Encounter [facility] Pain Procedures [address] [place] [phone] Laurence Blankenship MD [address] [place], [place] [phone] [facility] Start: 03-23-2024 End: 03-23-2024 Patient encounter procedure 03/23/2024 1:00 PM EST Appointment Radiology [address] [facility] [place], [place] [phone] CTA Head W IV CON,CTA Neck W IV Con Radiology Comment on above: CTA Head W IV CON,CTA Neck W IV Con Start: 03-16-2024 End: 03-16-2024 Patient encounter procedure 03/16/2024 11:30 AM EST Office Visit [facility] [address] [place] [address] 1 [place] [phone] Carrington Fritz MD [address] [place] [address], [address] [place], [place] [phone] [facility] Start: 03-15-2024 End: 03-15-2024 Patient encounter procedure 03/15/2024 12:45 PM EST Office Visit [facility] [address] [facility] [address] [place] [address] Fran [facility], DO [address] [facility] [address] [place] [address] [facility] Start: 03-13-2024 HCV RT-PCR, Quant (Non-Graph) [facility] Start: 03-06-2024 End: 03-06-2024 Patient education based on identified need [facility] Start: 03-06-2024 End: 03-06-2024 Provider instructions for treatment Intervention and counseling on cessation of tobacco use, 3-10 minutes [facility] Start: 02-22-2024 End: 02-22-2024 ambulatory 02/22/2024 2:45 PM EST OT/PT/Speech Visit [facility] [address] [facility] [address] Tien Heredia, PT [address] [address] no copay Dislocation of temporomandibular joint, subsequent encounter [S03.00XD] [facility] Comment on above: no copay Dislocation of temporomandibula r joint, subsequent encounter [S03.00XD] Start: 02-14-2024 End: 02-14-2024 Patient encounter procedure Otolaryngology Comment on above: My nose , throat , avril and cheeks are raw. My nose , throat , t ongue and cheeks are raw. Start: 01-28-2024 End: 01-28-2024 ambulatory 01/28/2024 2:30 PM EST OT/PT/Speech Visit [facility] [address] [place] [address] Tien Heredia, PT [address] [place] [address] Dislocation of temporomandibular joint, subsequent encounter [S03.00XD] [facility] Comment on above: Dislocation of temporomandibular joint, subsequent encounter [S03.00XD] Start: 01-20-2024 End: 01-20-2024 Patient encounter procedure 01/20/2024 11:30 AM EST Office Visit [facility] [address] [place] [place] [phone] Carrington Fritz MD [address] [place] [address], 1 [place], [place] [phone] [facility] Start: 01-18-2024 End: 01-18-2024 Patient encounter procedure 01/18/2024 9:00 AM EST Office Visit Neurology Headache [facility] [address] [place] [address] Rossana Harding APRN.[facility] [address] [place] [address] F/U Neurology Headache [facility] Comment on above: F/U Start: 01-14-2024 Depression Monitoring Depression Monitoring [facility] Start: 01-10-2024 End: 01-10-2024 Patient encounter procedure 01/10/2024 1:00 PM EST Procedure Visit [facility] [address] [place] [address] Jeimy Hi DMD [address] [place] [address] [facility] Start: 01-06-2024 End: 01-06-2024 Patient encounter procedure Radiology Comment on above: MRI BRAIN WO/W IVCON Start: 01-05-2024 End: 01-05-2024 ambulatory 01/05/2024 12:15 PM EDT OT/PT/Speech Visit [facility] [address] [place] [address] Tien Heredia, PT [address] [address] Dislocation of temporomandibular joint, subsequent encounter [S03.00XD] [facility] Comment on above: Dislocation of temporomandibular joint, subsequent encounter [S03.00XD] Start: 12-29-2023 End: 12-29-2023 Patient encounter procedure 12/29/2023 6:30 PM EDT Appointment [facility] [facility] [address] [address] [facility] Start: 12-29-2023 Subsequent hospital visit by physician 12/29/2023 6:30 PM EDT Hospital Encounter [facility] [address] [facility] [address] [place] [address] [facility] Start: 12-27-2023 End: 12-27-2023 Patient encounter procedure 12/27/2023 3:00 PM EDT Office Visit [facility] [address] [phone] Yon Chong MD [address] [facility] [address] [place] [address] [facility] Start: 12-24-2023 End: 12-24-2023 Patient encounter procedure 12/24/2023 1:40 PM EDT Appointment Radiology [address] [place] [address] Dislocation of temporomandibular joint, subsequent encounter [S03.00XD] Radiology Comment on above: Dislocation of temporomandibular joint, subsequent encounter [S03.00XD] Start: 12-22-2023 End: 12-22-2023 Patient encounter procedure 12/22/2023 2:45 PM EDT Office Visit [facility] [address] [facility] [facility] [address] [place] [phone] [facility], DO [address] [facility] [address] [place] [address] [facility] Start: 12-21-2023 End: 12-21-2023 Clinical Support 12/21/2023 3:00 PM EDT Clinical Support [facility] [address] [facility] [address] [place] [phone] [facility] Start: 12-20-2023 End: 12-20-2023 Patient encounter procedure 12/20/2023 1:00 PM EDT Procedure Visit [facility] [address] [place] [address] Prisca Maria DDS [address] [place] [address] [facility] Start: 12-10-2023 End: 12-10-2023 ambulatory 12/10/2023 10:40 AM EDT [facility] [address] [place] [address] [place] [address] [place] [address] Dislocation of temporomandibular joint, subsequent encounter [S03.00XD] Neurology [facility] Comment on above: Dislocation of temporomandibular joint, subsequent encounter [S03.00XD] Start: 12-07-2023 Influenza vaccination Influenza Vaccine (#1) [facility] Start: 12-06-2023 End: 12-05-2024 CT Neck WO contrast CT NECK W/O CONTRAST Imaging Routine Atypical face pain Expected: 12/06/2023, Expires: 12/05/2024 [email or web address] Work Phone: Comment on above: Expected: 12/06/2023, Expires: Start: 11-26-2023 End: 11-26-2023 Patient encounter procedure 11/26/2023 1:15 PM EDT Appointment [facility] - MRI Imaging [address] [place] [address] Carrington Fritz MD [address] [place] [address], [address] [place] [address] [facility] Start: 11-26-2023 Subsequent hospital visit by physician 11/26/2023 1:15 PM EDT Hospital Encounter [facility] [address] [place] [address] Carrington Fritz MD [address] [place] [address], [address] [place] [address] [facility] Start: 11-24-2023 End: 11-24-2023 Patient encounter procedure 11/24/2023 9:15 AM EDT Office Visit [facility] [address] [place] [address] [address] [place] [phone] Carrington Fritz MD [address] [place] [address], [address] [place] [address] [facility] Start: 11-23-2023 End: 11-22-2024 MR Temporomandibular joint MR temporomandibular joint Imaging Routine TMJ (temporomandibular joint disorder) Arthralgia of right temporomandibular joint Expected: 11/23/2023, Expires: 11/22/2024 [facility] Work Phone: Comment on above: Expected: 11/23/2023, Expires: Start: 11-23-2023 FQHC visit, estab pt Medical Established [facility] Work Phone: Start: 11-12-2023 End: 11-12-2023 Patient encounter procedure 11/12/2023 11:30 AM EDT Office Visit [facility] [address] [address] Jonn Zacarias MD [address] [address] F/u [facility] Comment on above: F/u Start: 11-11-2023 End: 11-11-2023 Patient encounter procedure 11/11/2023 2:15 PM EDT Office Visit [facility] [address] [place] [place] [phone] Carrington Fritz MD [address] [place] [address], 1 [place] [address] [facility] Start: 11-11-2023 End: 11-10-2024 MR Face WO contrast MR face without contrast Imaging Routine Arthralgia of right temporomandibular joint Expected: 11/11/2023, Expires: 11/10/2024 [facility] Work Phone: Comment on above: Expected: 11/11/2023, Expires: Start: 11-11-2023 End: 11-11-2023 Patient encounter procedure 11/11/2023 12:30 PM EDT Office Visit [facility] Otolaryngology [address] [facility], [address] [place] [address] Carmen Mcadams MD [address] [address] 1 month nfollow up [facility] Otolaryngology Comment on above: 1 month nfollow up Start: 11-07-2023 COVID-19 Vaccine ( season) COVID-19 Vaccine ( season) [facility] Start: 11-07-2023 Covid-19 Vaccine ( season) Covid-19 Vaccine () [facility] Start: 11-07-2023 Influenza vaccination [facility] Start: 11-04-2023 End: 11-04-2023 Patient encounter procedure 11/04/2023 3:00 PM EDT Office Visit [facility] Otolaryngology [address] [facility], [address] [place] [address] Carmen Mcadams MD [address] [address] (THROAT) Feeling like throat is swollen [facility] Otolaryngology Comment on above: (THROAT) Feeling like throat is swollen Start: 10-28-2023 End: 10-28-2023 Patient encounter procedure 10/28/2023 2:30 PM EDT Office Visit [facility] Oral Surgery [address] [place] [address] Babs Cat, DMD [address] [facility] [place] [address] Arrived [facility] Oral Surgery Comment on above: Arrived Start: 10-07-2023 Influenza vaccination Flu vaccine (#1) [facility] Start: 08-26-2023 FQHC visit, estab pt Medical Established [facility] Work Phone: Start: 08-25-2023 End: 08-25-2023 Patient education based on identified need [facility] Start: 08-04-2023 End: 08-04-2023 Patient encounter procedure 08/04/2023 1:15 PM EDT Office Visit [facility] [address] [facility] [address] [place] [phone] Fran Wilson-Sarahi, [address] [facility] [address] [place] [address] [facility] Start: 07-24-2023 End: 07-24-2023 Patient encounter procedure 07/24/2023 11:00 AM EDT Appointment [facility] [address] [place] [phone] [facility] Start: 07-22-2023 Comprehensive metabolic 2000 panel - Serum or Plasma [facility] Start: 07-15-2023 FQHC visit, estab pt Medical Established Patient [facility] Work Phone: Start: 07-15-2023 End: 07-15-2023 Patient education based on identified need [facility] Start: 07-03-2023 CBC W Auto Differential panel - Blood [facility] Start: 07-03-2023 Comprehensive metabolic 2000 panel - Serum or Plasma Comprehensive Metabolic Panel (CP) [facility] Start: 06-03-2023 End: 06-03-2023 Patient education based on identified need [facility] Start: 05-24-2023 FQHC visit, estab pt Medical Established Patient [facility] Work Phone: Start: 05-10-2023 FQHC visit, estab pt Medical Established Patient [facility] Work Phone: Start: 05-10-2023 End: 05-10-2023 Patient education based on identified need [facility] Start: 05-03-2023 Dental Comp Exam [facility] Work Phone: Start: 04-26-2023 End: 04-26-2023 Patient education based on identified need [facility] Start: 04-26-2023 ENT [facility] Work Phone: Comment on above: Note: Please make a referral to: Start: 04-22-2023 Open Access - Established [facility] Work Phone: Start: 04-20-2023 Emergency department patient visit Dental Emergency [facility] Work Phone: Start: 04-19-2023 CBC W Auto Differential panel - Blood [facility] Start: 04-19-2023 Comprehensive metabolic 2000 panel - Serum or Plasma Comp. Metabolic Panel (14) [facility] Start: 04-19-2023 Prothrombin time Prothrombin Time (PT) [facility] Start: 04-12-2023 End: 04-12-2023 Patient education based on identified need [facility] Start: 11-06-2022 COVID-19 Vaccine ( season) COVID-19 Vaccine () [facility] Start: 09-21-2022 Evaluation by psychiatric service required Evaluation by psychiatric service required Date: 21-Sep-2022 [facility] Start: 11-06-2021 Influenza vaccination INFLUENZA (#1) [facility] Start: 03-08-2021 DEPRESSION ASSESSMENT DEPRESSION ASSESSMENT [facility] Start: 02-11-2021 COLOGUARD (FIT-DNA) COLOGUARD (FIT-DNA) [facility] Start: 02-11-2021 Colonoscopy COLONOSCOPY [facility] Start: 02-11-2021 COLORECTAL CANCER SCREENING COLORECTAL CANCER SCREENING [facility] Start: 02-11-[address] COLONOGRAPHY [facility] Start: 02-11-2021 FECAL OCCULT BLOOD FECAL OCCULT BLOOD [facility] Start: 02-11-2021 Screening for malignant neoplasm of colon [facility] Start: 02-11-2021 SIGMOIDOSCOPY SIGMOIDOSCOPY [facility] Start: 11-06-2020 Influenza vaccination Flu vaccine (#1) [facility] Work Phone: Start: 02-11-2011 Lipid panel Cholesterol [facility] Start: 02-11-2011 LIPID SCREEN LIPID SCREEN [facility] Start: 02-11-1995 DTaP,Tdap and Td Vaccines (1 - Tdap) DTaP,Tdap and Td Vaccines (1 - Tdap) [facility] Start: 02-11-1995 DTaP/Tdap/Td vaccine (1 - Tdap) DTaP/Tdap/Td vaccine (1 - Tdap) [facility] Start: 02-11-1995 DTaP/Tdap/Td Vaccines (1 - Tdap) DTaP/Tdap/Td Vaccines (1 - Tdap) [facility] Start: 02-11-1995 Hepatitis A (HAV) Vaccine (1 of 2 - Risk 2-dose series) Hepatitis A (HAV) Vaccine (1 of 2 - Risk 2-dose series) [facility] Start: 02-11-1995 Hepatitis A vaccine (1 of 2 - Risk 2-dose series) Hepatitis A vaccine (1 of 2 - Risk 2-dose series) [facility] Start: 02-11-1995 Hepatitis B vaccination Hepatitis B (HBV) Vaccine (1 of 3 - 19+ 3-dose series) [facility] Start: 02-11-1995 Hepatitis B Vaccine (1 of 3 - 19+ 3-dose series) Hepatitis B Vaccine (1 of 3 - 19+ 3-dose series) [facility] Start: 02-11-1995 Hepatitis B vaccine (1 of 3 - Risk 3-dose series) Hepatitis B vaccine (1 of 3 - Risk 3-dose series) [facility] Work Phone: Start: 02-11-1995 Urine microalbumin profile [facility] Start: 02-11-1994 Adult BMI Follow Up Plan Adult BMI Follow Up Plan [facility] Start: 02-11-1994 Depression Screening Depression Screening [facility] Start: 02-11-1994 Diabetes mellitus screening Diabetes Screening [facility] Start: 02-11-1994 HIV SCREENING HIV SCREENING [facility] Start: 02-11-1994 HIV screening HIV Screening [facility] Start: 02-11-1994 Tetanus + diphtheria + acellular pertussis vaccine (product) [employer] Start: 02-11-1991 HIV screening HIV Test [facility] Start: 1988 COVID-19 Vaccine (1) COVID-19 Vaccine (1) [facility] Work Phone: Start: 1988 Depression Screening Depression Screening [facility] [employer] Start: 02-11-1982 PNEUMOCOCCAL (1 - PCV) PNEUMOCOCCAL (1 - PCV) [facility] Start: 02-11-1982 Pneumococcal 0-64 years Vaccine (1 of 2 - PPSV23) Pneumococcal 0-64 years Vaccine (1 of 2 - PPSV23) [facility] Work Phone: Start: 02-11-1982 Pneumococcal Vaccine: Pediatrics (0 to 5 Years) and At-Risk Patients (6 to 64 Years) (1 - PCV) Pneumococcal Vaccine: Pediatrics (0 to 5 Years) and At-Risk Patients (6 to 64 Years) (1 - PCV) [facility] Start: 02-11-1977 Hepatitis A vaccine (1 of 2 - Risk 2-dose series) Hepatitis A vaccine (1 of 2 - Risk 2-dose series) [facility] Work Phone: Start: 02-11-1977 Hepatitis A Vaccines (1 of 2 - Risk 2-dose series) Hepatitis A Vaccines (1 of 2 - Risk 2-dose series) [facility] Start: 02-11-1977 MMR Vaccines (1 of 1 - Standard series) MMR Vaccines (1 of 1 - Standard series) [facility] Start: 1976 COVID-19 VACCINE (#1) COVID-19 VACCINE (#1) [facility] Start: 1976 HEPATITIS B (1 of 3 - 3-dose series) HEPATITIS B (1 of 3 - 3-dose series) [facility] Start: 1976 Hepatitis B Vaccines (1 of 3 - 3-dose series) Hepatitis B Vaccines (1 of 3 - 3-dose series) [facility] Start: 1976 HIV screening HIV Screening [facility] Start: 1976 Screening for malignant neoplasm of colon [facility] Start: 1976 Tobacco Counseling Tobacco Counseling [facility] [employer] Start: 1976 Yearly Adult Physical Yearly Adult Physical [facility] End: 12-26-2024 Antinuclear Ab, HEp-2 Substrate, S Antinuclear Ab, HEp-2 Substrate, S Lab Routine Dry mouth and eyes 1 Occurrences starting 12/27/2023 until 12/26/2024 [facility] Work Phone: Comment on above: 1 Occurrences starting 12/27/2023 until 12/26/2024 Antinuclear Ab, HEp- 2 Substrate, S Antinuclear Ab, HEp-2 Substrate, S Lab Routine Dry mouth and eyes 12/27/2023 3:37 PM EDT [facility] End: 12-26-2024 Complement profile (C3 AND C4) Complement profile (C3 AND C4) Lab Routine Dry mouth and eyes 1 Occurrences starting 12/27/2023 until 12/26/2024 [facility] Comment on above: 1 Occurrences starting 12/27/2023 until 12/26/2024 Complement profile ( C3 AND C4) Complement profile (C3 AND C4) Lab Routine Dry mouth and eyes 12/27/2023 3:37 PM EDT [facility] End: 04-16-2025 CT Neck W contrast IV CTA NECK W IVCON Radiology Routine Cervicalgia 1 Occurrences starting 03/17/2024 until 04/16/2025 [facility] Comment on above: 1 Occurrences starting 03/17/2024 until 04/16/2025 End: 01-06-2025 CT Temporal bone WO contrast CT TEMP BONES WO IVCON Radiology Routine Dislocation of temporomandibular joint, subsequent encounter 1 Occurrences starting 12/08/2023 until 01/06/[address] [facility] Work Phone: Comment on above: 1 Occurrences starting 12/08/2023 until 01/06/2025 End: 04-16-2025 CTA Head Arteries W contrast IV CTA HEAD W IVCON Radiology Routine Localized swelling, mass or lump of neck 1 Occurrences starting 03/17/2024 until 04/16/[address] [facility] Work Phone: Comment on above: 1 Occurrences starting 03/17/2024 until 04/16/2025 End: 12-26-2024 CHERYL Panel CHERYL Panel Lab Routine Dry mouth and eyes 1 Occurrences starting 12/27/2023 until 12/26/2024 [facility] Comment on above: 1 Occurrences starting 12/27/2023 until 12/26/2024 CHERYL Panel CHERYL Panel Lab Ro utine Dry mouth and eyes 12/27/2023 3:37 PM EDT [facility] EXTRA JUANI-ISABEL CONTAINER PERFORMABLE EXTRA JUANI-ISABEL CONTAINER PERFORMABLE Lab Routine Diarrhea of presumed infectious origin 04/14/2024 10:41 AM EST [facility] EXTRA ECOFIX CONTAIN ER PERFORMABLE EXTRA ECOFIX CONTAINER PERFORMABLE Lab Routine Diarrhea of presumed infectious origin 04/14/2024 10:41 AM EST [facility] EXTRA STERILE CONTAINER [facility] End: 10-02-2020 HEP C RNA, QUANT (VIRAL LOAD) HEP C RNA, QUANT (VIRAL LOAD) Lab Routine Once for 1 Occurrences starting 10/02/2020 until 10/02/2020 [facility] Work Phone: Comment on above: Once for 1 Occurrences starting 10/03/19 21 until 10/02/2020 HEP C RNA, QUANT ( RAL LOAD) HEP C RNA, QUANT (VIRAL LOAD) Lab Routine 10/02/2020 9:18 AM EDT [employer] Work Phone: End: 10-02-2020 Hepatitis C Genotype Hepatitis C Genotype Lab Routine Once for 1 Occurrences starting 10/02/2020 until 10/02/2020 [facility] Work Phone: Comment on above: Once for 1 Occurrences starting 10/03/19 21 until 10/02/2020 Hepatitis C Genotype Hepatitis C Genotype Lab Routine 10/02/2020 9:18 AM EDT [employer] Work Phone: LAB EXTRA TUBES [facility] End: 01-08-2025 MR Brain WO and W contrast IV MRI BRAIN WO/W IVCON Radiology Routine Right facial pain Atypical facial pain 1 Occurrences starting 12/10/2023 until 01/08/[address] [facility] Work Phone: Comment on above: 1 Occurrences starting 12/10/2023 until 01/08/2025 End: 05-24-2025 MR Cervical spine WO contrast MRI CERVICAL SPINE WO IVCON Radiology Routine Cervicalgia Localized swelling, mass or lump of neck 1 Occurrences starting 04/24/2024 until 05/24/2025 [facility] Comment on above: 1 Occurrences starting 04/24/2024 until 05/24/2025 MR Cervical spine WO contrast MRI CERVICAL SPINE WO IVCON Radiology Routine Cervicalgia Localized swelling, mass or lump of neck 05/19/2024 7:03 PM EDT [facility] [employer] Work Phone: End: 05-07-2025 MR Shoulder - left WO contrast MRI SHOULDER WO IVCON LEFT Radiology Routine Acute pain of left shoulder 1 Occurrences starting 04/07/2024 until 05/07/2025 [facility] Work Phone: Comment on above: 1 Occurrences starting 04/07/2024 until 05/07/2025 End: 10-02-2020 Testosterone Free and Total Male Testosterone Free and Total Male Lab Routine Once for 1 Occurrences starting 10/02/2020 until 10/02/2020 [employer] Work Phone: Comment on above: Once for 1 Occurrences starting 10/03/19 until 10/02/2020 Testosterone Free an d Total Male Testosterone Free and Total Male Lab Routine 10/02/2020 9:18 AM EDT [employer] Work Phone: End: 05-24-2025 XR Cervical spine AP and Lateral and oblique XR CERV OTHER 4V AP/LAT/OBL Radiology Routine Cervicalgia Localized swelling, mass or lump of neck 1 Occurrences starting 04/24/2024 until 05/24/[address] [facility] Work Phone: Comment on above: 1 Occurrences starting 04/24/2024 until 05/24/2025 XR Cervical spine AP and Lateral and oblique XR CERV OTHER 4V AP/LAT/OBL Radiology Routine Cervicalgia Localized swelling, mass or lump of neck 04/24/2024 2:32 PM [facility] End: 05-03-2025 XR Shoulder - left 3 Views XR SHOULDER GENERAL 3V OR MORE AP/TRUE AP/OTHER LEFT Radiology Routine Left shoulder pain, unspecified chronicity 1 Occurrences starting 04/03/2024 until 05/03/[address] [facility] Work Phone: Comment on above: 1 Occurrences starting 04/03/2024 until 05/03/2025 XR Shoulder - left 3 Views XR SHOULDER GENERAL 3V OR MORE AP/TRUE AP/OTHER LEFT Radiology Routine Left shoulder pain, unspecified chronicity 04/07/2024 1:05 PM [employer] [facility] Work Phone: Immunizations Immunization Date Immunization Notes Care Provider Modesto parry 03-18-2024 influenza, seasonal, injectable, preservative free Theresa Slaughter [facility] 03-18-2024 influenza virus vaccine, unspecified formulation Tala Mane RN [facility] 03-08-2024 hepatitis A and hepatitis B vaccine Theresa Slaughter [facility] 03-08-2024 tetanus toxoid, redu meghan diphtheria toxoid, and acellular pertussis vaccine, adsorbed Theresa Slaughter [facility] 04-26-2023 Pneumococcal conjuga te 20 valent (PCV20), polysaccharide [id number] conjugate, adjuvant, PF (POL=[id number]) Babs Recinos DMD Work Phone: [facility] 04-26-2023 pneumococcal vaccine , unspecified formulation [facility] Work Phone: [facility] Comment on above: Note: Patient tolera jess well. No signs or symptoms of adverse reactions. Patient waited a minimum of 15 minutes. 01-01-2023 influenza virus vaccine, unspecified formulation Fran-Sarahi Vu DO Work Phone: [facility] 01-01-2023 Influenza, Quadv, 6 mo and older, IM, PF (Flulaval, Fluarix) Carmen Mcadams MD Work Phone: [facility] 02-24-2022 influenza, injectabl e, quadrivalent, preservative free [facility] Work Phone: [facility] 02-24-2022 influenza, seasonal, injectable, preservative free Vanesa Crouch [employer] Work Phone: [facility] 02-24-2022 influenza virus vaccine, unspecified formulation Babs Recinos DMD Work Phone: [facility] Payers Date Payer Category Payer Dental --Stand Alone DENTAL-MEDI CAID HMO [id number] 2022 Medicaid [id number] 2022 Medicaid (Managed Care) [facility] MEDICAID [id number] 2022 Medicaid [id number] 2017 Unknown [employer] [facility] MEDICAID [id number] 2017-Present [phone] CLAIMS DEPARTMENT [address] [place] [address] [id number]. [id number] 2017 Self-pay 2014 Medicaid [id number] 1976 Unknown [id number] 2.16.840.1.285295.3.579.2. 185 1976 Unknown [id number] 2.16.840.1.831541.3.579.2. 903 1976 Unknown [id number] 2.16.840.1.187497.3.579.2. 903 1976 Unknown [id number] 2.16.840.1.645897.3.579.2. 903 1976 Unknown [id number] 2.16.840.1.535025.3.579.2. 1068 1976 Unknown [id number] 2.16.840.1.127099.3.579.2. 983 1976 Unknown [id number] 2.16.840.1.523282.3.579.2. 983 1976 Unknown [id number] 2.16.840.1.451141.3.579.2. 983 1976 Unknown [id number] 2.16.840.1.740153.3.579.2. 983 1976 Unknown [id number] 2.16.840.1.494477.3.579.2. 983 1976 Unknown [id number] 2.16.840.1.740039.3.579.2. 1286 1976 Unknown [id number] 2.16.840.1.098454.3.579.2. 1286 1976 Unknown [id number] 2.16.840.1.284819.3.579.2. 1286 1976 Unknown [id number] 2.16.840.1.218312.3.579.2. 1286 1976 Unknown [id number] 2.16.840.1.002136.3.579.2. 1286 1976 Unknown [id number] 2.16.840.1.654744.3.579.2. 159 1976 Unknown [id number] 2.16.840.1.116465.3.579.2. 1286 1976 Unknown [id number] 2.16.840.1.205004.3.579.2. 182 1976 Unknown [id number] 2.16.840.1.434702.3.579.2. 182 1976 Unknown [id number] 2.16.840.1.648602.3.579.2. 182 1976 Unknown [id number] 2.16.840.1.345887.3.579.2. 182 1976 Unknown [id number] 2.16.840.1.590465.3.579.2. 182 1976 Unknown [id number] 2.16.840.1.282175.3.579.2. 182 1976 Unknown [id number] 2.16.840.1.823675.3.579.2. 732 1976 Unknown [id number] 2.16.840.1.818723.3.579.2. 732 1976 Unknown [id number] 2.16.840.1.705508.3.579.2. 732 1976 Unknown [id number] 2.16.840.1.300981.3.579.2. 732 1976 Unknown [id number] 2.16.840.1.758661.3.579.2. 732 1976 Unknown [id number] 2.16.840.1.162750.3.579.2. 732 1976 Unknown [id number] 2.16.840.1.878371.3.579.2. 732 1976 Unknown [id number] 2.16.840.1.592273.3.579.2. 732 1976 Unknown [id number] 2.16.840.1.493094.3.579.2. 732 1976 Unknown [id number] 2.16.840.1.457138.3.579.2. 732 1976 Unknown [id number] 2.16.840.1.680244.3.579.2. 732 1976 Unknown [id number] 2.16.840.1.755061.3.579.2. 732 1976 Unknown [id number] 2.16.840.1.753762.3.579.2. 128 1976 Unknown [id number] 2.16.840.1.271403.3.579.2. 1285 1976 Unknown [id number] 2.16.840.1.634271.3.579.2. 1285 1976 Unknown [id number] 2.16.840.1.217548.3.579.2. 1285 1976 Unknown [id number] 2.16.840.1.773267.3.579.2. 128 1976 Unknown [id number] 2.16.840.1.767726.3.579.2. 1285 1976 Unknown [id number] 2.16.840.1.418010.3.579.2. 1285 1976 Unknown [id number] 2.840.1.515382.3.579.2. 1285 1976 Unknown [id number] 2.16840.1.130498.3.579.2. 1285 1976 Unknown [id number] 2.16840.1.271742.3.579.2. 1285 1976 Unknown [id number] 2.16.840.1.309289.3.579.2. 1285 1976 Unknown [id number] 2.840.1.585972.3.579.2. 1285 1976 Unknown [id number] 2.16840.1.588430.3.579.2. 1285 1976 Unknown [id number] 2.16.840.1.759110.3.579.2. 1285 1976 Unknown [id number] 2.16.840.1.712365.3.579.2. 1285 1976 Unknown [id number] 2.16840.1.363185.3.579.2. 1285 1976 Unknown [id number] 2.16.840.1.938664.3.579.2. 1285 1976 Unknown [id number] 2.16.840.1.321032.3.579.2. 1285 1976 Unknown [id number] 2.16.840.1.228943.3.579.2. 1285 1976 Unknown [id number] 2.16.840.1.194309.3.579.2. 1285 1976 Unknown [id number] 2.16.840.1.670669.3.579.2. 1285 1976 Unknown [id number] 2.16.840.1.668742.3.579.2. 1285 1976 Unknown [id number] 2.16.840.1.485555.3.579.2. 1285 1976 Unknown [id number] 2.16.840.1.364157.3.579.2. 1285 1976 Unknown [id number] 2.16.840.1.622268.3.579.2. 1285 1976 Unknown [id number] 2.16.840.1.652982.3.579.2. 1285 1976 Unknown [id number] 2.16.840.1.584551.3.579.2. 1285 1976 Unknown [id number] 2.16.840.1.998759.3.579.2. 1285 1976 Unknown [id number] 2.16.840.1.920637.3.579.2. 1285 1976 Unknown [id number] 2.16.840.1.041910.3.579.2. 1285 1976 Unknown [id number] 2.16.840.1.462086.3.579.2. 1285 1976 Unknown [id number] 2.16.840.1.468507.3.579.2. 1285 1976 Unknown [id number] 2.16.840.1.595220.3.579.2. 1286 1976 Unknown [id number] 2.16.840.1.518119.3.579.2. 1286 1976 Unknown [id number] 2.16.840.1.878454.3.579.2. 6 1976 Unknown [id number] 2.16.840.1.961373.3.579.2. 1286 1976 Unknown [id number] 2.16.840.1.588882.3.579.2. 1286 1976 Unknown [id number] 2.16.840.1.685202.3.579.2. 1286 1976 Unknown [id number] 2.16.840.1.324087.3.579.2. 6 1976 Unknown [id number] 2.16.840.1.475813.3.579.2. 1286 1976 Unknown [id number] 2.16.840.1.261479.3.579.2. 1286 1976 Unknown [id number] 2.16.840.1.538006.3.579.2. 1243 1976 Unknown [id number] 2.16.840.1.820701.3.579.2. 1243 Unknown [facility] MEDICAID\[facility] MEDICAID Social History Date Type Detail Facility Start: 10-01-2020 End: 07-06-2024 Tobacco smoking status NHIS Former smoker [facility] End: 08-06-2020 History of tobacco use Current smoker [facility] Start: 10-01-2020 End: 03-05-2024 Cigarettes smoked current (pack per day) - Reported [facility] Start: 10-01-2020 End: 10-07-2023 Tobacco use and exposure Never used [facility] Start: 10-01-2020 End: 08-02-2024 Alcohol intake Current non-drinker of alcohol (finding) [facility] Work Phone: Start: 10-01-2020 History SDOH Financial 5 [facility] Work Phone: Start: 10-01-2020 End: 04-23-2022 History SDOH Food Worry 1 [facility] Work Phone: Start: 1975 Sex Assigned At Not on file [facility] Work Phone: Start: 09-25-2013 End: 02-21-2024 Tobacco smoking status NHIS Smokes tobacco daily [facility] Work Phone: End: 08-06-2020 History of tobacco use Cigarette Smoker [facility] Work Phone: Start: 09-25-2013 End: 02-21-2024 Tobacco use and exposure User of smokeless tobacco [facility] Work Phone: Start: 09-25-2013 End: 12-08-2023 Tobacco Comment Pt basically does chew [facility] Start: 12-28-2021 End: 04-22-2022 Exposure to SARS-CoV-2 (event) Not sure [facility] Finding of resid ence and accommodation circumstances (finding) [facility] Assertion Details of drug misuse behavior (observable entity) [facility] Start: 05-29-2023 Assertion [facility] Assertion Gender identity finding (finding) [facility] Assertion Finding of sexua l orientation (finding) [facility] Assertion Sexually active (finding) [facility] Start: 12-08-2023 End: 03-05-2024 Gender identity Not on file [facility] Start: 11-30-2023 Sexual orientation Heterosexual (fin ding) [facility] Start: 04-09-2023 End: 08-24-2023 Sex Male (finding) [facility] Start: 04-23-2022 History SDOH Alcohol Std Drinks 0 [facility] Assertion Exposure to poll ution (event) [facility] Assertion Employment detai l (observable entity) [facility] Assertion Social and perso nal history finding (finding) [facility] Assertion History of disor tosha (situation) [facility] Start: 08-04-2023 End: 07-06-2024 Tobacco use and exposure Former smokeless tobacco user [facility] Start: 12-22-2023 End: 08-18-2024 Alcoholic beverage intake Ex-drinker (finding) [facility] How hard is it for you to pay for the very basics like food, housing, medical care, and heating Very hard [facility] Start: 10-07-2023 End: 08-18-2024 Tobacco smoking status NHIS Occasional tobacco smoker [employer] History of tobacco use Cigar Smoker [facility] How often to you hav e a drink containing alcohol? Never [employer] (I/We) worried whether (my/our) food would run out before (I/we) got money to buy more. Never true [employer] Assertion Emotional stress (finding) [facility] Start: 1975 Sex assigned at Male [facility] Start: 06-20-2024 Gender identity Identifies as male gender (finding) [facility] History of tobacco use Snuff User [facility] Start: 07-06-2024 Tobacco Comment Stopped smokin g x 2 months ago as 07/06/24. [facility] Within the last year , have you been afraid of your partner or ex-partner? No [facility] Are you now , , , , never or living with a partner? Never [facility] Do you feel stress - tense, restless, nervous, or anxious, or unable to sleep at night because your mind is troubled all the time - these days [OSQ] Very much [facility] At any time in the past 12 months, were you homeless or living in [place] [facility] [including now]? Yes [facility] Start: 03-05-2024 Education 15 [facility] NEGATED: Highlighted row Assertion Current drinker of alcohol (finding) [facility] NEGATED: Highlighted row Assertion [facility] NEGATED: Highlighted row Assertion Exposure to pollution (event) [facility] NEGATED: Highlighted row Assertion Sexually active (finding) [facility] NEGATED: Highlighted row Assertion Finding relating to drug misuse behavior (finding) [facility] NEGATED: Highlighted row Assertion Misuses drugs (finding) [facility] NEGATED: Highlighted rowStart: JAX[facility] History of tobacco use Passive smoker [facility] Work Phone: Functional Status Date Assessment Result Facility 07-21-2024 Are you deaf, or do you have serious difficulty hearing No 07/21/2024 9:54 AM Alexandria Fine, REDD No [facility] 07-21-2024 Are you blind, or do you have serious difficulty seeing, even when wearing glasses No 07/21/2024 9:54 AM Alexandria Fine, RN No [facility] 07-21-2024 Do you have serious difficulty walking or climbing stairs No 07/21/2024 9:54 AM Alexandria Fine, REDD [facility] 07-21-2024 Do you have difficul ty dressing or bathing No 07/21/2024 9:54 AM Alexandria Fine, REDD [facility] 07-21-2024 Because of a physica l, mental, or emotional condition, do you have difficulty doing errands alone such as visiting a physician's office or shopping No 07/21/2024 9:54 AM Alexandria Fine, REDD No [facility] 09-25-2013 Are you deaf, or do you have serious difficulty hearing No 09/25/2013 8:21 AM Junie Lebron LPN No [facility] 09-25-2013 Are you blind, or do you have serious difficulty seeing, even when wearing glasses No 09/25/2013 8:21 AM Junie Leborn LPN No [facility] 09-25-2013 Do you have serious difficulty walking or climbing stairs No 09/25/2013 8:21 AM Junie Lebron LPN No [facility] 09-25-2013 Do you have difficul ty dressing or bathing No 09/25/2013 8:21 AM Junie Lebron LPN No [facility] 09-25-2013 Because of a physica l, mental, or emotional condition, do you have difficulty doing errands alone such as visiting a physician's office or shopping No 09/25/2013 8:21 AM Junie Lebron LPN No [facility] Mental Status Date Assessment Result Facility 07-21-2024 Because of a physica l, mental, or emotional condition, do you have serious difficulty concentrating, remembering, or making decisions No 07/21/2024 9:54 AM EDT Alexandria Morin RN No [facility] 09-25-2013 Because of a physica l, mental, or emotional condition, do you have serious difficulty concentrating, remembering, or making decisions Yes 09/25/2013 8:21 AM EDT Junie Cruz LPN Yes [facility] Cognitive function The estimated intelligence was normal Intelligence finding (finding) [facility] Work Phone: Clinical Notes 01-07-2022 to 08-24-2024 Ryann Traylor PA-C - 08/24/2024 6:30 PM EDTPatient InstructionsTelephone Encounter - Merle Sanchez RN - 08/23/2024 4:38 PM EDTTelephone Encounter - Merle Sanchez RN - 08/23/2024 4:38 PM EDT Note Date & Type Note Facility 08-24-2024 History of Present illness Narrative Urgent Care Virtual Video Visit Patient Location: home Provider Location: [facility] 49-year-old male with multiple complaints. [...] MRI of his face September 15. There is nothing new or worse today. If he develops [...] understanding. Patient disposition: Home Electronically signed by Ryann Traylor PA-C 6:58 PM documented in this encounter [facility] Work Phone: 08-24-2024 Instructions Ryann Traylor PA-C - 08/24/2024 6:30 PM EDT I did refer you to primary care. documented in this encounter [facility] Work Phone: 08-23-2024 Telephone encounter Note Provider sent mychart of denial [facility] 08-23-2024 Miscellaneous Notes Provider sent mychart of denial Your patient, referenced below, has an insurance [...] divalproex ER or DR, or valproic acid Ordering Provider: BLUE MATHIAS Provider Tax ID: [id number] HCPCS code(s) & drug name(s): Botox J0585 Diagnosis submitted (ICD -10 code & description): G43.719 (ICD-10-CM) - Chronic migraine without aura, intractable, without status migrainosus Clinical Documentation Submitted: Office Visit 06/29/2024 Neurology New Start or Renewal? New Start Patient: RAHEEM COHN : 1975 DOS: [facility] Payer: [employer] Date Denial Received 08/22/2024 Appeal DEPT. INFORMATION Appeal Phone Number or Fax# FAX # [phone] Contact [facility] Timeframe to Complete/Call to Schedule: 60 Days Case Reference # or Please reply to all with the outcome of the Appeal or once the order has been updated Thank you for your assistance with this request. Please feel free to contact me if any additional information or clarification is needed. documented in this encounter [facility] 08-23-2024 Telephone encounter Note Your patient, referenced below, has an insurance [...] divalproex ER or DR, or valproic acid Ordering Provider: BLUE MATHIAS Provider Tax ID: [id number] HCPCS code(s) & drug name(s): Botox J0585 Diagnosis submitted (ICD -10 code & description): G43.719 (ICD-10-CM) - Chronic migraine without aura, intractable, without status migrainosus Clinical Documentation Submitted: Office Visit 06/29/2024 Neurology New Start or Renewal? New Start Patient: RAHEEM COHN : 1975 DOS: [facility] Payer: [employer] Date Denial Received 08/22/2024 Appeal DEPT. INFORMATION Appeal Phone Number or Fax# FAX # [phone] Contact Name: [facility] Timeframe to Complete/Call to Schedule: 60 Days Case Reference # or Please reply to all with the outcome of the Appeal or once the order has been updated Thank you for your assistance with this request. Please feel free to contact me if any additional information or clarification is needed. [facility] 08-18-2024 History of Present illness Narrative Subjective Patient ID: Raheem Cohn Jr. is a 49 y.o. male. He continues having symptoms related to his palate. He has had extensive ENT evaluations. Review of Systems Objective Physical Exam Constitutional: Comments: Interacts appropriately. HENT: Head: Comments: Some crepitus over his TMJ on the R. Assessment/Plan Reviewed with radiology. No sagittal views of his palate have been obtained by MRI. Further pending those additional images. Diagnoses and all orders for this visit: Hx of trauma of hard palate - MR face with and without contrast; Future documented in this encounter [facility] 08-15-2024 History of Present illness Narrative [facility] [address] [place] [address] Patient: Raheem Cohn Jr. Sex: male : 1975 Age: 49 y.o. PCP: Carrington Fritz MD 08/15/2024 Raheem Cohn Jr. is here for a(n) follow up. Patient reports pain is improved since last TMJ injection, but remains constant. Patient reports burning pain from left and right jaw that wraps around to the front of his mouth. Patient has not noticed much improvement from Lyrica prescribed last visit. Reports seeing a trigeminal neurology who prescribed Cymbalta, which did not help so he stopped taking it. Neurologist also suggested trying Botox, but patient is hesitant. Patient states he had a swallow study done that showed dysphagia for which he is currently in speech therapy. Chief Complaint Patient presents with Neck Pain HPI: 03/24/24 Bilateral TMJ nerve block injection with 50% relief. 06/16/24 Bilateral TMJ injection 30% relief Neck Pain This is a chronic problem. The current episode started more than 1 month ago (April 2021). The problem occurs constantly. The problem has been gradually improving. The pain is present in the midline (right and left jaw, across front of face). The quality of the pain is described as aching (sharp pain to mouth and nose, Sharp shooting pain into bilateral occipital up to behind ears). The pain is at a severity of 5/10 (can get up to 10/10). The pain is moderate (to severe). The symptoms are aggravated by twisting, bending, sneezing and coughing (sitting, walking, lying, transitioning, eating, chewing, opening mouth). The pain is Same all the time. Stiffness is present All day. Associated symptoms include pain with swallowing and trouble swallowing. Pertinent negatives include no chest pain, headaches, numbness (nose), tingling or weight loss. Associated symptoms comments: Shooting pain to right side of head . He has tried NSAIDs and muscle relaxants (PT, Chiropractor, jaw surgery, injections, flexeril, IBU, ketoradol, indomethocin) for the symptoms. The effect of pain on patient's ADLS: Moderate Impairment. Past Medical History: Diagnosis Date Acid reflux Anxiety Breathlessness lying flat Carpal tunnel syndrome Edentulous Hx of hepatitis C has been treated Jaw pain Murmur, cardiac as a child Neck pain Trigeminal neuralgia 06/2024 Wears dentures Past Surgical History: Procedure Laterality Date HAND SURGERY INJECTION BURSA INTERMEDIATE Bilat TMJ Bilateral 06/16/2024 Performed by Laurence Blankenship MD at [facility] INJECTION BURSA INTERMEDIATE Bilat TMJ Bilateral 03/24/2024 Performed by Laurence Blankenship MD at [facility] MANDIBLE SURGERY TOOTH EXTRACTION WRIST SURGERY Allergies Allergen Reactions Penicillins Anaphylaxis and Cough Anaphylaxis was listed per [facility]. Family History Problem Relation Age of Onset Diabetes Maternal Grandmother Social History Socioeconomic History Marital status: Single Spouse name: Not on file Number of children: Not on file Years of education: Not on file Highest education level: Not on file Occupational History Not on file Tobacco Use Smoking status: Former Current packs/day: 0.00 Types: Cigarettes Quit date: 02/16/1994 Years since quittin.5 Smokeless tobacco: Former Vaping Use Vaping status: Some Days Substance and Sexual Activity Alcohol use: Not Currently Drug use: Not Currently Types: Methamphetamines Sexual activity: Defer Other Topics Concern Not on file Social History Narrative Not on file Social Drivers of Health Financial Resource Strain: High Risk (03/05/2024) Received from [employer] Overall Financial Resource Strain (CARDIA) Difficulty of Paying Living Expenses: Very hard Food Insecurity: No Food Insecurity (08/15/2024) Hunger Screening Food Insecurity - Worry: Never True Food Insecurity - Inability: Never True Transportation Needs: No Transportation Needs (03/05/2024) Received from [employer] PRAPARE - Transportation Lack of Transportation (Medical): No Lack of Transportation (Non-Medical): No Recent Concern: Transportation Needs - Unmet Transportation Needs (02/14/2024) PRAPARE - Transportation Lack of Transportation (Medical): No Lack of Transportation (Non-Medical): Yes Physical Activity: Insufficiently Active (03/05/2024) Received from [employer] Exercise Vital Sign Days of Exercise per Week: 3 days Minutes of Exercise per Session: 20 min Stress: Stress Concern Present (03/05/2024) Received from [employer] [place] [employer] - Occupational Stress Questionnaire Feeling of Stress : Very much Social Connections: Moderately Isolated (03/05/2024) Received from [employer] Social Connection and Isolation Panel [NHANES] Frequency of Communication with Friends and Family: Never Frequency of Social Gatherings with Friends and Family: Never Attends Quaker Services: 1 to 4 times per year Active Member of Clubs or Organizations: No Attends Club or Organization Meetings: More than 4 times per year Marital Status: Never Interpersonal Safety: Not At Risk (03/05/2024) Received from [employer] Humiliation, Afraid, Rape, and Kick questionnaire Fear of Current or Ex-Partner: No Emotionally Abused: No Physically Abused: No Sexually Abused: No Housing Instability: High Risk (03/05/2024) Received from [facility] Housing Stability Vital Sign Unable to Pay for Housing in the Last Year: No Number of Times Moved in the Last Year: 0 Homeless in the Last Year: Yes Review of Systems Constitutional: Negative. Negative for chills and weight loss. HENT: Positive for trouble swallowing. Negative for congestion. Oral pain (palate), difficulty breathing through nose Eyes: Negative. Respiratory: Positive for shortness of breath. Negative for cough. Cardiovascular: Negative. Negative for chest pain. Gastrointestinal: Positive for constipation. Negative for diarrhea. Endocrine: Negative. Genitourinary: Negative. Musculoskeletal: Positive for neck pain. Skin: Negative. Thick yellow tonails Allergic/Immunologic: Negative. Neurological: Negative for tingling, numbness (nose) and headaches. Hematological: Negative. Psychiatric/Behavioral: Negative. Vital Signs: BP 102/85 (BP Site: Right Arm, BP Postition: Sitting) Pulse 80 Resp 18 SpO2 98% Physical Exam: GENERAL - Healthy patient that appears stated age. HEENT - Normocephalic / Atraumatic, Extraoccular movements intact, trachea midline, thyroid within normal limits. CV - pulse regular, Warm extremities with appropriate color of nailbeds. RESP - No obvious wheezing, No Shortness of Breath, No overexertion response to exam maneuvers. COORDINATION - remains intact. PSYCH - Alert and Oriented x4, Attentive and appropriate, constitutionally normal, displays normal mood and affect per situation, answered questions appropriately during examination, demonstrated appropriate attention during discussion, demonstrated appropriate cognitive reasoning and understanding of the medical condition by asking appropriate questions regarding the diagnosis and risks/benefits/alternatives of treatment modalities. No obvious deficits in memory, reasoning, or intellect. Cervical: Tenderness noted to bilateral TMJ joint with painful AROM. SKIN - No rashes or bruising in the area of the patient s pain. LYMPH NODES - demonstrate no obvious enlargement. EXTREMITIES - Upper extremities are warm, with minimal edema and palpable pulses. No Significant tenderness to palpation noted in the cervical spine and paraspinal musculature. Minimal pain is elicited with flexion, extension, and lateral rotation of the cervical spine. Range of motion is not diminished with these motions. Facet palpation is noted to be minimally painful, but not concordant with the patient s normal pain complaints. STRENGTH - noted to be 5 out of 5 all muscle groups bilateral upper extremities including muscles involving shoulder flexion and abduction, elbow flexion and extension, as well as wrist flexion and extension and intrinsic muscles of the hand. No notable atrophy, fasciculations or spasm. SENSORY - No notable sensory deficits in the bilateral upper extremities to touch or pinprick in all dermatomal distributions. Spurlings sign is negative. Assessment/Treatment Plan: Raheem was seen today for neck pain. Diagnoses and all orders for this visit: TMJ (temporomandibular joint disorder) - Case request operating room: INJECTION BURSA LARGE JOINT: bilat TMJ - pregabalin (LYRICA) 150 mg capsule; Take 1 capsule (150 mg total) by mouth 3 (three) times a day. Increase pregabalin to 150 mg TID With Regard to medication management, it is felt that the patient would benefit from the changes mentioned above. This should provide symptomatic pain relief as part of the comprehensive pain management strategy outlined. Risks, Benefits, Side effects, and possible interactions of these medications were reviewed and the medication agreement has been discussed, agreed upon, and signed. The patient understands compliance concerns and the requirement of pill counts and drug screens while taking medications prescribed by this clinic. Plan for Bilateral Temporomandibular joint injection - under fluoroscopy with the use of contrast dye (unless contraindicated) It is hopeful that the described procedure will provide symptomatic pain relief. It is felt to be medically necessary noting that the patient has tried and failed more conservative modalities of therapy and this is the next most appropriate step. The procedure was described in detail to the patient as well as the potential benefits of pain reduction alongside risks of the procedure and alternatives. Risks were described as including, but not limited to bleeding, infection, nerve damage, spinal cord injury, paralysis, stroke, dural puncture headache, and medication reaction. The patient expressed understanding regarding the risks and benefits and wishes to proceed. It was explained that Temporomandibular joint injections occasionally require a repeat injection before significant relief is noted, but we will determine after each injection if another one is indicated. Depending on the amount and duration of relief obtained from the injection, additional modalities of therapy including medications and physical therapy may need to be utilized alongside or following the injections. Follow up 2 weeks after procedure. The medications I have prescribed have been reviewed for medication interactions/contraindications and/or for upcoming procedures: continue current medication regimen without any changes. DISCUSSION: Treatment options discussed with patient and all questions answered to patient's satisfaction. Discussed the rules and regulations surrounding prescription of opioids and compliance at length. Failure to follow the rules and regulation will result in tapering and discontinuation of medications if applicable. It is noted that the patient did have good response from the previously performed procedure. It is felt that the patient would benefit from an additional procedure of the same nature in that the same symptoms have returned. It is hopeful that this additional injection will provide additional benefit and duration when combined with the previous injection. Prescribed medication that requires intensive monitoring for toxicity: Lyrica and was increased at today's office visit. The spine model was demonstrated and MRI was reviewed and used to explain the condition. OARRS: Reviewed. Follow up 2 weeks after procedure. Scribe Statement: ICriselda RN, scribed for and in the presence of SUZANNA CAMPUZANO who performed the above service. Criselda Suazo RN 08/15/24 [id number] SUZANNA Campuzano 08/15/24 [id number] documented in this encounter [facility] 08-15-2024 Instructions Criselda Suazo RN - 08/15/2024 10:45 AM EDT Joint Injections / Other These procedure(s) involve injecting steroid medications into a joint or other area explained by your physician. Steroid medicine decreases pain and inflammation. The injection may also contain an anesthetic (numbing medicine) to decrease pain. It may be done to treat conditions such as arthritis, gout, carpal tunnel syndrome and more. The injections may be given in your hip, knee, ankle, shoulder, elbow, wrist, or ankle. How Long Will This Procedure Last? The extent and duration of pain relief may depend on the amount of inflammation and how many areas are involved. Other coexisting factors may be responsible for your pain. You and your physician will discuss expected results of procedure(s). After Your Injection You may experience soreness and tenderness at the area of treatment. This pain may not occur until later today after the numbing medicine wears off. The steroid can take 3-5 days to work and provide noticeable improvement. Activity You may resume normal activity as your comfort level allows. Medications Resume your routine medications after your procedure. You may resume blood thinners per your regular schedule after the procedure. If you received sedation: If you received sedation for your procedure, you may feel sleepy or not yourself for several hours today. For the next 24 hours avoid activities that requires alertness or coordination. This includes: Driving or operating heavy machinery Using power tools Consuming alcohol Do not make important or complex decisions or sign legal documents in the next 24 hours. Other Instructions: If you feel severe pain at the injection site with swelling and redness, increased leg weakness, a fever of 101 or higher, headache (or worsening headache), changes in vision or urinary retention: Please call the office at , or have someone take you to the nearest emergency room. Tell the emergency room staff that you recently had a spine injection. A doctor must evaluate you for bleeding and injection complications. If you lose control over bowel, bladder, or legs: Go to the nearest emergency room. If you are diabetic, the steroids used in this procedure can increase your blood sugar. If your blood sugar is 250mg/dL or higher, contact your primary care physician, or the doctor who manages your diabetes, to discuss how to get it back to normal. documented in this encounter [facility] 08-14-2024 History of Present illness Narrative Episode Visit Count: 1 Therapist That Will Accept/Oversee The Plan Of Care: He Calle Start of Care Date: 08/14/24 Onset Date: 07/21/24 Plan of Care Certification Date: 08/14/24 Next Certification Due Date: 10/13/24 Patient Identified by Name and Date of : Yes [facility] SPEECH THERAPY CLINICAL SWALLOW EVALUATION PLAN OF CARE: Impression: Swallow Deficits Identified / Suspected: Oropharyngeal dysphagia, Concern for possible esophageal impairment Prognosis: Good Good: current objective clinical presentation Goals for Episode of Care: established 08/14/2024 SWALLOWING GOALS Patient will increase lingual strength/ROM to WFL via lingual exercises x 10-20 repetitions and DEEP PHARYNGEAL NEUROMUSCULAR STIMULATION with good effort given no cues in order to improve oral phase to within functional limits. Patient will increase left labial strength/coordination to WFL via labial exercises x 10-20 repetitions with good effort and NEUROMUSCULAR ELECTRICAL STIMULATION given no cues improve labial closure. Patient will increase base of tongue strength to WFL via base of tongue exercises x 10-20 repetitions with good effort and DEEP PHARYNGEAL NEUROMUSCULAR STIMULATION given no cues in order to improve propulsion of the bolus to the pharynx. Patient will increase laryngeal elevation to WFL via laryngeal elevation exercises x 10-20 repetitions with good effort given no cues and NEUROMUSCULAR ELECTRICAL STIMULATION in order to improve airway protection during swallowing. Patient will increase anterior hyoid ROM to WFL via hyolaryngeal / pharyngeal exercises x 10-20 repetitions with good effort given min cues improve airway protection during swallowing. Patient will improve mandible ROM to WITHIN FUNCTIONAL LIMITS via mandibular ROM and masseter exercises/NEUROMUSCULAR ELECTRICAL STIMULATION to masticate his food in an efficient manner. Patient will demonstrate WNL swallow reflex via DEEP PHARYNGEAL NEUROMUSCULAR STIMULATION x 10 in order to improve pharyngeal phase of swallowing to within functional limits. Patient will tolerate regular diet with thin liquids while utilizing compensatory/swallowing strategies in 100% of trials. Reassess swallowing function via MODIFIED BARIUM SWALLOW STUDY in 8 weeks. All goals to target the patient's overall ability to safely consume the highest appropriate diet level Time Frame for Goals and Treatment : 10/13/24 RECOMMENDATION: Diet Recommendations: Dental Soft, Regular Consistency, Thin Liquids IDDSI Level 0 Swallowing Precautions Recommendations: Alternate bites and sips, Alert (patient should be fully alert for P.O. 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 Patient agreed with plan. SUBJECTIVE: Raheem Cohn is a 49 year old male seen today for clinical swallowing assessment. Per patient's report: June 2021 he noticed that the left side of his face, mouth and body felt different and he noticed a droop. In March 2022 he was hospitalized for Shagra-Toxin. Patient reported that he has trouble getting his swallow intiated and feels like he has to gulp. Tongue feels like it is being pinched on left back where he had teeth removed. Dry mouth. He has had COVID-19 x 6. He has no gag response. (Feels pressure in the roof of his mouth when moving his head forward. 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 Nasal vestibular repair completed on 07/20/24.) Past Relevant Medical Conditions: (Drug usage/dependence, COVID-19 x 6. facial/nasal fractures, TMJ dislocation, anxiety, DDD , Hep C) Patient Goals: To swallow. Home Environment Patient Lives With: Self/Alone Previous Swallow Study: [facility] (07/10/24) Relevant medical history/ comorbidities: Complaints of food items getting stuck: Yes throat area. Recent hospitalization / surgery: Yes nasal repair PROMIS Scales 08/13/2024 Speech Communication Score 30 T-scores: mean of general population = 50. 5 points is clinically meaningfully difference Percentiles provide an indication of how the patient's score ranks in relation to the general population. Higher percentile rankings indicate better function/quality of life. 50th percentile is the average of the general population and indicates half of respondents had a worse score. OBJECTIVE MEASURES WITH LEVEL OF FUNCTION: Swallow Position Of Patient During Assessment: Upright In Chair Feeding Method: Patient Self-Fed Consistencies Presented: Thin Liquids IDDSI Level 0, Pureed Solids IDDSI Level 4, Soft and Bite-Sized Solids IDDSI Level 6, Solid Thin Liquids Pharyngeal Phase: Multiple Swallows (Cough noted per liquid wash) Pureed Solids Pharyngeal Phase: (Within functional limits) Soft and Bite-Sized Solids Oral Phase: Impaired A-P Transfer, Mild Oral Residue Soft and Bite-Sized Solids Pharyngeal Phase: Multiple Swallows, Cough- Immediate (per liquid wash) Solid Pharyngeal Phase: Multiple Swallows Compensatory Strategies Utilized During Assessment: (coughed per liquid wash) Previous Swallow Study: [facility] (07/10/24) Education Learning Preferences: Demonstration, Explanation, Performance Barriers: None Learning/Educational Needs: Plan of Care, Swallowing Skills Education Provided: Yes, see treatment interventions for education provided Education Provided To: Patient Education Mode/Type: Explanation/Discussion Response to Education/Teach Back: States/Identifies TREATMENT: Evaluation: Swallow Eval Counts Include [address] ([id number]) Billing: Clinical Swallow Evaluation ([id number]) Total time / Length of visit: 75 minutes Session Start Time : 0945 Session Stop Time : 1100 He Calle CCC-REPAIR SUPERVISOR documented in this encounter [facility] 08-14-2024 Note HNO ID: [id number] Author: HE CALLE CCC-SLP Service: ? Author Type: Speech Language Pathologist Type: Progress Notes Filed: 08/15/2024 09:56 Note Text: Episode Visit Count: 1 Therapist That Will Accept/Oversee The Plan Of Care: He Calle Start of Care Date: 08/14/24 Onset Date: 07/21/24 Plan of Care Certification Date: 08/14/24 Next Certification Due Date: 10/13/24 Patient Identified by Name and Date of : Yes [facility] SPEECH THERAPY CLINICAL SWALLOW EVALUATION PLAN OF CARE: Impression: Swallow Deficits Identified / Suspected: Oropharyngeal dysphagia, Concern for possible esophageal impairment Prognosis: Good Good: current objective clinical presentation Goals for Episode of Care: established 08/14/2024 SWALLOWING GOALS Patient will increase lingual strength/ROM to WFL via lingual exercises x 10-20 repetitions and DEEP PHARYNGEAL NEUROMUSCULAR STIMULATION with good effort given no cues in order to improve oral phase to within functional limits. Patient will increase left labial strength/coordination to WFL via labial exercises x 10-20 repetitions with good effort and NEUROMUSCULAR ELECTRICAL STIMULATION given no cues improve labial closure. Patient will increase base of tongue strength to WFL via base of tongue exercises x 10-20 repetitions with good effort and DEEP PHARYNGEAL NEUROMUSCULAR STIMULATION given no cues in order to improve propulsion of the bolus to the pharynx. Patient will increase laryngeal elevation to WFL via laryngeal elevation exercises x 10-20 repetitions with good effort given no cues and NEUROMUSCULAR ELECTRICAL STIMULATION in order to improve airway protection during swallowing. Patient will increase anterior hyoid ROM to WFL via hyolaryngeal / pharyngeal exercises x 10-20 repetitions with good effort given min cues improve airway protection during swallowing. Patient will improve mandible ROM to WITHIN FUNCTIONAL LIMITS via mandibular ROM and masseter exercises/NEUROMUSCULAR ELECTRICAL STIMULATION to masticate his food in an efficient manner. Patient will demonstrate WNL swallow reflex via DEEP PHARYNGEAL NEUROMUSCULAR STIMULATION x 10 in order to improve pharyngeal phase of swallowing to within functional limits. Patient will tolerate regular diet with thin liquids while utilizing compensatory/swallowing strategies in 100% of trials. Reassess swallowing function via MODIFIED BARIUM SWALLOW STUDY in 8 weeks. All goals to target the patient's overall ability to safely consume the highest appropriate diet level Time Frame for Goals and Treatment : 10/13/24 RECOMMENDATION: Diet Recommendations: Dental Soft, Regular Consistency, Thin Liquids IDDSI Level 0 Swallowing Precautions Recommendations: Alternate bites and sips, Alert (patient should be fully alert for P.O. 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 Patient agreed with plan. SUBJECTIVE: Raheem Cohn is a 49 year old male seen today for clinical swallowing assessment. Per patient's report: June 2021 he noticed that the left side of his face, mouth and body felt different and he noticed a droop. In March 2022 he was hospitalized for Shagra-Toxin. Patient reported that he has trouble getting his swallow intiated and feels like he has to gulp. Tongue feels like it is being pinched on left back where he had teeth removed. Dry mouth. He has had COVID-19 x 6. He has no gag response. (Feels pressure in the roof of his mouth when moving his head forward. 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 Nasal vestibular repair completed on 07/20/24.) Past Relevant Medical Conditions: (Drug usage/dependence, COVID-19 x 6. facial/nasal fractures, TMJ dislocation, anxiety, DDD , Hep C) Patient Goals: To swallow. Home Environment Patient Lives With: Self/Alone Previous Swallow Study: MBS (07/10/24) Relevant medical history/ comorbidities: Complaints of food items getting stuck: Yes throat area. Recent hospitalization / surgery: Yes nasal repair PROMIS Scales 08/13/2024 Speech Communication Score 30 T-scores: mean of general population = 50. 5 points is clinically meaningfully difference Percentiles provide an indication of how the patient's score ranks in relation to the general population. Higher percentile rankings indicate better function/quality of life. 50th percentile is the average of the general population and indic (more content not included)... [place] [id number] Miscellaneous Notes Refill request, contract signed and appointments up to date. documented in this encounter [facility] 08-09-2024 Telephone encounter Note Refill request, contract signed and appointments up to date. [facility] 08-08-2024 Note HNO ID: [id number] Author: JUAN F WRIGHT, DO Service: ? Author Type: Fellow Type: Progress Notes Filed: 08/08/2024 12:40 Note Text: IMPRESSION: Raheem Cohn is a 49 year old with Jaw pain, atypical facial pain, seen last 07/21 as a walk in visit, In addition to his jaw pain, he also mentioned constant daily throbbing head pain associated with sensitivity to sound, nausea and vomiting, worsened by his facial pain, and thus would be also consistent with chronic daily headaches with migraine features. We will get a precert for Onabotulinum Toxin A using the PREEMPT protocol. This patient meets FDA criteria for Chronic Migraine without aura, without mention of intractable migraine with status migrainosus. The migraine lasts for greater than 4 hours and has been chronic for more than three months. Onabotulinum Toxin A is FDA approved for chronic migraine. His headaches are associated with photophobia, phonophobia, neck pain, jaw pain for three or more months. Patient will not use in conjunction with CGRP preventive medications. Medication overuse, alternate diagnosis, confounding psychiatric or social stresses have been ruled out as the cause of headaches. Severity: moderate to severe Quality: throbbing Migraine days a month: 30 Headache days a month: 0 Total Headache days a month: 30 Headache free days a month: 0 The following preventative medications have been tried for at least three months without benefit or discontinued due to side effects: Anti-Convulsant Gabapentin (Neurontin) 600 mg TID drowsy, brain fog, weight gain, not able to drive/work Anti-Depressant and Antipsychotic Nortriptyline (Pamelor, Aventyl) The following abortive medications have been tried but require high frequency use which can lead to Medication Overuse Headache: Analgesic Indomethacin (Indocin) Ketorolac (Toradol) The patient has been assessed for disorders which could contribute to breathing or swallowing difficulty, and there is no contraindication with PREEMPT Botox. There is no documented allergic reaction/hypersensitivity to any botulinum toxin and there is no active infection at proposed injection site Dr. Juan F Wright DO, YOVANNY [facility] 08-08-2024 History of Present illness Narrative IMPRESSION: Raheem Cohn is a 49 year old with Jaw pain, atypical facial pain, seen last 07/21 as a walk in visit, In addition to his jaw pain, he also mentioned constant daily throbbing head pain associated with sensitivity to sound, nausea and vomiting, worsened by his facial pain, and thus would be also consistent with chronic daily headaches with migraine features. We will get a precert for Onabotulinum Toxin A using the PREEMPT protocol. This patient meets FDA criteria for Chronic Migraine without aura, without mention of intractable migraine with status migrainosus. The migraine lasts for greater than 4 hours and has been chronic for more than three months. Onabotulinum Toxin A is FDA approved for chronic migraine. His headaches are associated with photophobia, phonophobia, neck pain, jaw pain for three or more months. Patient will not use in conjunction with CGRP preventive medications. Medication overuse, alternate diagnosis, confounding psychiatric or social stresses have been ruled out as the cause of headaches. Severity: moderate to severe Quality: throbbing Migraine days a month: 30 Headache days a month: 0 Total Headache days a month: 30 Headache free days a month: 0 The following preventative medications have been tried for at least three months without benefit or discontinued due to side effects: Anti-Convulsant Gabapentin (Neurontin) 600 mg TID drowsy, brain fog, weight gain, not able to drive/work Anti-Depressant and Antipsychotic Nortriptyline (Pamelor, Aventyl) The following abortive medications have been tried but require high frequency use which can lead to Medication Overuse Headache: Analgesic Indomethacin (Indocin) Ketorolac (Toradol) The patient has been assessed for disorders which could contribute to breathing or swallowing difficulty, and there is no contraindication with PREEMPT Botox. There is no documented allergic reaction/hypersensitivity to any botulinum toxin and there is no active infection at proposed injection site Dr. Juan F Wright DO, YOVANNY documented in this encounter [facility] 08-02-2024 History of Present illness Narrative Images from the original note were not included. Section of Facial Plastic & Reconstructive Surgery Head and Neck [place], [facility] FOLLOW-UP VISIT CC: post-op IMPRESSION & PLAN: Raheem Cohn is a 49 year old male that is recovering well following nasal surgery. We discussed continued care for the nose with ointment and nasal saline spray. Return to clinic 3-4 months. Sooner if issues arise. Will continue to follow up with REPAIR SUPERVISOR and Neuro for jaw and facial pain related tissues (both appts already scheduled) Jamie Nur MD HISTORY: Raheem Cohn is a 49 year old male who returns today following nasal surgery. Overall, recovering well. No significant concerns or complaints. 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 PHYSICAL EXAM: vitals were not taken for this visit. Nose - expected post-operative swelling; incisions well healing; septum is straight; turbinates well reduced. Right nasal vestibular skin with crusting which was removed, no cartilage exposure or wound breakdown. No ballotable collection IMAGING: I personally reviewed the following radiologic exams: NA PROCEDURES: NA Tobacco Use: Types: Cigarettes, Snuff Was smoking cessation packet given? N/A - Patient is a non-smoker or quit >1 year ago. Was a referral initiated?N/A Patient is a non-smoker documented in this encounter [facility] 08-02-2024 Note HNO ID: [id number] Author: JAMIE NUR MD Service: ? Author Type: Fellow Type: Progress Notes Filed: 08/02/2024 08:54 Note Text: Section of Facial Plastic AND Reconstructive Surgery Head and Neck [place], [facility] FOLLOW-UP VISIT CC: post-op IMPRESSION AND PLAN: Raheem Cohn is a 49 year old male that is recovering well following nasal surgery. We discussed continued care for the nose with ointment and nasal saline spray. Return to clinic 3-4 months. Sooner if issues arise. Will continue to follow up with REPAIR SUPERVISOR and Neuro for jaw and facial pain related tissues (both appts already scheduled) Jamie Nur MD HISTORY: Raheem Cohn is a 49 year old male who returns today following nasal surgery. Overall, recovering well. No significant concerns or complaints. 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 PHYSICAL EXAM: vitals were not taken for this visit. Nose - expected post-operative swelling; incisions well healing; septum is straight; turbinates well reduced. Right nasal vestibular skin with crusting which was removed, no cartilage exposure or wound breakdown. No ballotable collection IMAGING: I personally reviewed the following radiologic exams: NA PROCEDURES: NA [facility] 08-02-2024 Note HNO ID: [id number] Author: MARÍA SOARES RN Service: ? Author Type: Registered Nurse Type: Progress Notes Filed: 08/02/2024 08:54 Note Text: Tobacco Use: Types: Cigarettes, Snuff Was smoking cessation packet given? N/A - Patient is a non-smoker or quit >1 year ago. Was a referral initiated?N/A Patient is a non-smoker [facility] 07-21-2024 Instructions Juan F Wright DO - 07/21/2024 11:34 AM EDT Trial of Tizanidine 4 mg as needed for facial pulling/jaw pain (this is a muscle relaxor, can make you sleepy) Start cymbalta 30 mg every morning Continue the lyrica 75 mg 3x daily Start speech therapy - referral placed documented in this encounter [facility] 07-21-2024 Note HNO ID: [id number] Author: SANJANA ENCARNACION MD Service: ? Author Type: Physician Type: Progress Notes Filed: 07/22/2024 11:47 Note Text: Headache and Facial Pain Section [facility] [place] CC: Headache follow-up (impromptu drop in) Follow-up Visit Last visit Date: 06/2024 Raheem oChn is a 49 year old This is a 49 yo, new to me, presenting for atypical facial pain and known TMJ disorder the past 3 years, with refractory pain. Facial pain began after jaw/dental surgery to remove all his teeth, and heightened a few months after when he had a severe popping sensation in the right jaw, and now has had persistent pain R V2-V3, as well as on the left and sometimes behind the ears into the neck. His pain is mostly triggered by swallowing and talking and he describes a burning pain in the top of his mouth and around his gums, but not triggered so much by touching/wind. Presentation is inconsistent with trigeminal neuralgia with constant stabbing pain without classical triggers or distribution, rather this is a b/l atypical facial pain with significant contributions from TMJ disorder and chronic pain syndrome. There was no evidence of occipital neuralgia contributions on exam. he has had numerous evaluations by pain management, ENT, OMFS, dentistry at outside facilities, and provided with TMJ nerve blocks with only minimal improvement and otherwise told not to be a surgical candidate. In addition he also mentions constant daily throbbing head pain associated with sensitivity to sound, nausea and vomiting, worsened by his facial pain, and thus would be also consistent with chronic daily headaches with migraine features. Atypical facial pain b/l (v2-V3) Hemifacial spasms b/l face TMJ disorder Chronic daily headache, chronic migraine features Preventative Medication: 1.Continue neuropathic agent recommended he discuss with his pain management team switching to Lyrica due to ADR (currently on gabapentin 600 mg 3 times daily) 2.PA for Botox for hemifacial spasm 3.Continue with TMJ /Head and Neck PT Abortive Medication: 1.Discussed muscle relaxers but he said he has tried numerous without improvement Future Considerations: cymbalta, desvenlafaxine, lyrica, oxc/cbz - therapy/referrals: He requested a referral to [facility], but also stated he cannot see dentistry at [facility] due to insurance and [facility] is in with dentistry but will provide him with the phone number to call for an appointment - Imaging: He will send me CD of most recent MRA for review Interval History: DATA: Diagnostic tests reviewed for today's visit: Imagin05/26/2024 MRI face and MRA 06/12/2024 IMPRESSION: Questionable abutment of the root entry zones of the bilateral trigeminal nerves by the traversing superior cerebellar arteries. Consider MRA for further evaluation. Otherwise no significant soft tissue abnormality is of the face to account for the patient's facial pain. Large left nasal septal spur. IMPRESSION: 1. No MRA evidence for an aneurysm or significant stenosis in the head. 2. The distal portions of the superior cerebellar arteries are seen extending directly between the lateral margins of the michelle and root entry zones of cranial nerves V; clinical correlation for trigeminal neuralgia is recommended. Consults: ENT operative note from yesterday Prior Therapies Duration of Use Dose Side effect Analgesic Indomethacin (Indocin) Ketorolac (Toradol) Anti-Convulsant Gabapentin (Neurontin) 600 mg TID drowsy, brain fog, weight gain, not able to drive/work Anti-Depressant and Antipsychotic Nortriptyline (Pamelor, Aventyl) Muscle Relaxer Baclofen (Lioresal) Cyclobenzaprine (Flexeril) no help for jaw/facial pain Methocarbamol (Robaxin) no help/jaw pain HEADACHE SCORES: 12/08/2023 06/22/2024 Headache Questions Face pain on one side only: Yes No Do you have Trigeminal neuralgia: No No Face pain described as: Other Other Do you have numbness with severe pain: Yes Yes Pain triggered by brushing your teeth, eating, shaving or touching your face: No Yes Days per month with mild/moderate face pain: 30 30 Days per month with severe face pain: 30 25 PRN medication usage in the last month: 30 30 01/12/2024 01/17/2024 06/22/2024 PAULA - 2/7 SCORES PAULA-2 Score 6 6 4 PAULA-7 Score 19 19 11 01/12/2024 01/17/2024 06/22/2024 Pain Disability Index PDI Score 62 62 51 05/14/2024 05/19/2024 06/22/2024 PHQ-9 Score 20 5 13 Physical Exam: Vital Signs: There were no vitals taken for this visit. GENERAL: anxious, agitated and pacing in the room, mild acute distress, alert, still wearing wrist band from admission yesterday and gauze over nose, with septum stitch in place RESP: normal respiratory effort MSK: No gross joint deformities. HENT: - Head: No tenderness on palpation of b/l ON, negative tinnels - Constantly pulling out dentures (more content not included)... [facility] 07-21-2024 History of Present illness Narrative Images from the original note were not included. Headache and Facial Pain Section [facility] [place] CC: Headache follow-up (impromptu drop in) Follow-up Visit Last visit Date: 06/2024 Raheem Cohn is a 49 year old This is a 49 yo, new to me, presenting for atypical facial pain and known TMJ disorder the past 3 years, with refractory pain. Facial pain began after jaw/dental surgery to remove all his teeth, and heightened a few months after when he had a severe popping sensation in the right jaw, and now has had persistent pain R V2-V3, as well as on the left and sometimes behind the ears into the neck. His pain is mostly triggered by swallowing and talking and he describes a burning pain in the top of his mouth and around his gums, but not triggered so much by touching/wind. Presentation is inconsistent with trigeminal neuralgia with constant stabbing pain without classical triggers or distribution, rather this is a b/l atypical facial pain with significant contributions from TMJ disorder and chronic pain syndrome. There was no evidence of occipital neuralgia contributions on exam. he has had numerous evaluations by pain management, ENT, OMFS, dentistry at outside facilities, and provided with TMJ nerve blocks with only minimal improvement and otherwise told not to be a surgical candidate. In addition he also mentions constant daily throbbing head pain associated with sensitivity to sound, nausea and vomiting, worsened by his facial pain, and thus would be also consistent with chronic daily headaches with migraine features. Atypical facial pain b/l (v2-V3) Hemifacial spasms b/l face TMJ disorder Chronic daily headache, chronic migraine features Preventative Medication: 1.Continue neuropathic agent recommended he discuss with his pain management team switching to Lyrica due to ADR (currently on gabapentin 600 mg 3 times daily) 2.PA for Botox for hemifacial spasm 3.Continue with TMJ /Head and Neck PT Abortive Medication: 1.Discussed muscle relaxers but he said he has tried numerous without improvement Future Considerations: cymbalta, desvenlafaxine, lyrica, oxc/cbz - therapy/referrals: He requested a referral to [facility], but also stated he cannot see dentistry at [facility] due to insurance and [facility] is in with dentistry but will provide him with the phone number to call for an appointment - Imaging: He will send me CD of most recent MRA for review Interval History: DATA: Diagnostic tests reviewed for today's visit: Imagin05/26/2024 MRI face and MRA 06/12/2024 IMPRESSION: Questionable abutment of the root entry zones of the bilateral trigeminal nerves by the traversing superior cerebellar arteries. Consider MRA for further evaluation. Otherwise no significant soft tissue abnormality is of the face to account for the patient's facial pain. Large left nasal septal spur. IMPRESSION: 1. No MRA evidence for an aneurysm or significant stenosis in the head. 2. The distal portions of the superior cerebellar arteries are seen extending directly between the lateral margins of the michelle and root entry zones of cranial nerves V; clinical correlation for trigeminal neuralgia is recommended. Consults: ENT operative note from yesterday Prior Therapies Duration of Use Dose Side effect Analgesic Indomethacin (Indocin) Ketorolac (Toradol) Anti-Convulsant Gabapentin (Neurontin) 600 mg TID drowsy, brain fog, weight gain, not able to drive/work Anti-Depressant and Antipsychotic Nortriptyline (Pamelor, Aventyl) Muscle Relaxer Baclofen (Lioresal) Cyclobenzaprine (Flexeril) no help for jaw/facial pain Methocarbamol (Robaxin) no help/jaw pain HEADACHE SCORES: 12/08/2023 06/22/2024 Headache Questions Face pain on one side only: Yes No Do you have Trigeminal neuralgia: No No Face pain described as: Other Other Do you have numbness with severe pain: Yes Yes Pain triggered by brushing your teeth, eating, shaving or touching your face: No Yes Days per month with mild/moderate face pain: 30 30 Days per month with severe face pain: 30 25 PRN medication usage in the last month: 30 30 01/12/2024 01/17/2024 06/22/2024 PAULA - 2/7 SCORES PAULA-2 Score 6 6 4 PAULA-7 Score 19 19 11 01/12/2024 01/17/2024 06/22/2024 Pain Disability Index PDI Score 62 62 51 05/14/2024 05/19/2024 06/22/2024 PHQ-9 Score 20 5 13 Physical Exam: Vital Signs: There were no vitals taken for this visit. GENERAL: anxious, agitated and pacing in the room, mild acute distress, alert, still wearing wrist band from admission yesterday and gauze over nose, with septum stitch in place RESP: normal respiratory effort MSK: No gross joint deformities. HENT: - Head: No tenderness on palpation of b/l ON, negative tinnels - Constantly pulling out dentures to show them and exam them Skin: Numerous small erythematous macules scattered observed back and minimally on the chest - Neurological: - CNV: tenderness on palpation of jaw. - Sensation: No pain elicited on palpation of posterior auricular/mastoid region bilaterally. NEUROLOGICAL: Mental Status: Alert, oriented to person, place and time, Follows commands, and Speech fluent and appropriate. Cranial Nerves: pupils equal, face symmetric, no dysarthria, hearing grossly intact Motor: moves all extremities equally, no drift Gait: normal-based. IMPRESSION: Raheem Cohn is a 49 year old who presents with pmhx as listed above here today for follow up regarding:Jaw pain, atypical facial pain, seen 3 weeks ago, coming in without an appt today as a walk-in, accommodated. 1. Jaw pain/Sublingual pain 2. Atypical facial pain - Persistent pain localized to the floor of the mouth, extending to both ears, with a more pronounced discomfort on the left side. - Recent increase in Lyrica to 100 mg TID for pain management post operatively - Continuing efforts to obtain insurance approval for Botox injections; currently awaiting response regarding Dysport/denial/ 3. Dysphagia, unspecified type - Recent barium swallow study on July 10 demonstrated mild oropharyngeal dysphagia- dysphagia is one of his significant concerns. Treatment Plan: Preventative Medication: Start cymbalta 30 mg Continue lyrica 100 mg TID PA for Botox for hemifacial spasm/atypical facial pain -pending Continue with TMJ /Head and Neck PT Abortive Medication: Tizanidine 4 mg PRN Therapy/referrals: - Referral to speech therapy for management of dysphagia. - Discussed that based on imaging there is no evidence of obvious fracture or structural issue I can appreciate from the reports and such a referral to facial/plastics of maxillofacial surgeon at [facility] for further evaluation of sublingual pain is not warranted at this time Dictated via [employer] with patient permission; fully reviewed and edited by author Patient seen and discussed with Dr. Encarnacion, staff Neurologist. Juan F Wright DO, YOVANNY Headache Medicine Fellow, PGY5 Adult Neurologist/ Board Certified Headache & Facial Pain Section, [facility] [place] Attending Note: I personally have reviewed the history and physical obtained and documented by the resident/fellow and I have examined the patient. I have discussed the management options and their respective risks and benefits with the patient. I also made the necessary revisions in the above documentation and the note reflects my input. I discussed the case and the plans with Dr. Wright, and I fully agree with the recommendations as outlined above. Sanjana Encarnacion MD documented in this encounter [facility] 07-21-2024 Telephone encounter Note Call received for Juan F Wright DO regarding Raheem A Cohn 1975. Caller: Self Patient Identified by Name and : Yes Was permission obtained from patient ? Yes Reason for Call: Other: Patient calling in today because he is currently in the hospital since he has had surgery on his nose. He says you were aware of the symptoms he was experiencing behind his nose and patient adds that after this surgery, he is now experiencing new concerns. Patient stated that you were willing to add him on to your lunch break for a visit. Or if you can call him back, he says that would be okay as well. Last Office Visit: 06/29/2024 Last Distance Health visit: Visit date not found Next scheduled appointment: 10/25/2024 Best number to reach caller: [phone] Best time to reach caller: any time Is it OK to leave a detailed voice message? Yes Deann Weiner [facility] 07-21-2024 Miscellaneous Notes Call received for DO rhett Holder Raheem A Cohn 1975. Caller: Self Patient Identified by Name and : Yes Was permission obtained from patient ? Yes Reason for Call: Other: Patient calling in today because he is currently in the hospital since he has had surgery on his nose. He says you were aware of the symptoms he was experiencing behind his nose and patient adds that after this surgery, he is now experiencing new concerns. Patient stated that you were willing to add him on to your lunch break for a visit. Or if you can call him back, he says that would be okay as well. Last Office Visit: 06/29/2024 Last Distance Health visit: Visit date not found Next scheduled appointment: 10/25/2024 Best number to reach caller: [phone] Best time to reach caller: any time Is it OK to leave a detailed voice message? Yes Deann Weiner documented in this encounter [facility] 07-20-2024 Note HNO ID: [id number] Author: ZULEMA VALDEZ APRN.CNP Service: Critical Care Author Type: Nurse Practitioner Type: Plan of Care Filed: 07/20/2024 17:31 Note Text: PACU plan of care note Patient resting in PACU, called to bedside by RN to assess periods of apnea and drops in O2 saturations to 82-84%. On arrival to bedside, patient drowsy but arousable to verbal/physical stimuli and carrying a conversation. Noted to have had doses of Fentanyl prior to these episodes. Anesthesia Dr. Alexandrea Perez to bedside to assess, and primary team Dr. Matos notified. With time alertness improved and no further noted episodes of apnea and O2 saturations acceptable on RA. PRN Fentanyl discontinued. Will plan to transfer to [facility] overnight as previously planned. Zulema Valdez APRN.KARUNA July 20, 2024 5:31 PM [facility] 07-20-2024 Note HNO ID: [id number] Author: LIZETTE MCKEON APRN.CRNA Service: ? Author Type: Nurse Stewarding Supervisor Type: Anesthesia Procedure Notes Filed: 07/20/2024 13:20 Note Text: ANESTHESIOLOGY PROCEDURE NOTE Airway General Information Procedure Start Time/Medication Administration: 07/20/2024 1:03 PM Procedure End Time: 07/20/2024 1:03 PM Patient location during procedure: OR Timeout Performed Pre-procedure: timeout performed Consent Obtained: Yes Patient identity confirmed: arm band and patient Staffing [employer]: Lizette Mckeon APRN.[employer] Performed by: HAYLEY Indications and Patient Condition Indications for airway management: anesthesia and airway protection Preoxygenated: yes anesthesia circuit Method: asleep Cricoid Pressure: No Manual In-Line Stabilization: No Difficult Mask: No Final Airway Details Final airway type: endotracheal airway Final Endotracheal Airway: ETT Cuffed: yes Successful intubation technique: video laryngoscopy Devices used: Griffith Endotracheal tube insertion site: oral Blade size: #4 ETT size (mm): 7.5 Measured from: lips Measurement (cm): 22 Placement verified by: capnometry Cormack-Lehane Classification: grade I - full view of glottis Number of attempts at approach: 1 Failed airway: no Unrecognized esophageal intubation: no Airway not difficult SIGNATURE: Lizette Mckeon APRN.[employer]SC[employer]ASS PATIENT NAME: Raheem Crowley Cohn DATE: July 20, 2024 TIME: 1:19 PM CSN: [id number] [facility] 07-19-2024 Miscellaneous Notes Pt called spoke and LM with AGNELA stating: SUrgery tomorrow for septum, switched from gabapentin to lyrica. Wants to increase lyrica 75 mg TID to 200 mg. I called pt to gather more info. No answer. LM for pt to call back. Can go from 75 to 100tid. Too big of a jump from 75 to 200 Pt agreeable to increase lyrica 100 mg TID. New order pending for your review documented in this encounter [facility] 07-19-2024 Telephone encounter Note Pt called spoke and LM with ANGELA stating: SUrgery tomorrow for septum, switched from gabapentin to lyrica. Wants to increase lyrica 75 mg TID to 200 mg. I called pt to gather more info. No answer. LM for pt to call back. [facility] 07-19-2024 Telephone encounter Note Can go from 75 to 100tid. Too big of a jump from 75 to 200 [facility] 07-19-2024 Telephone encounter Note Pt agreeable to increase lyrica 100 mg TID. New order pending for your review [facility] 07-14-2024 Telephone encounter Note pt was seen in OS 03/23/24, pt received message from OS 04/10/24 OS looked at pt and xray and nothing they can do for pt.06/23/24 OS relayed to telehone encounter Pt scheduled with Dr. Hi. Visist notes from Dr. hi 07/10/24 waiting for a consult with oral surgery for input. PLease contact pt to advise his next step in plan of care. pt can be reached at [phone] Message sent to [facility] 08/07/[address] Hi out of this office until that date , message sent on 07/14/24 at 142 pm [facility] 07-14-2024 Miscellaneous Notes pt was seen in OS 03/23/24, pt received message from OS 04/10/24 OS looked at pt and xray and nothing they can do for pt.06/23/24 OS relayed to telehone encounter Pt scheduled with Dr. Hi. Visist notes from Dr. hi 07/10/24 waiting for a consult with oral surgery for input. PLease contact pt to advise his next step in plan of care. pt can be reached at [phone] Message sent to [facility] 08/07/[address] Hi out of this office until that date , message sent on 07/14/24 at 142 pm documented in this encounter [facility] 07-11-2024 Instructions Chari Vela APRN.[facility] - 07/11/2024 7:32 PM EDT Contact your ENT about your nasal pressure and pain before your scheduled rhinoplasty. Continue using your current medications (nasal spray and Klonopin) as usual. No new medications or antibiotics were prescribed during this visit. I Feel So Sick, Don t I Need Antibiotics? Do I need antibiotics? What if my mucus is green? When germs that cause colds first infect the nose and sinuses, the nose makes clear mucus. This helps wash the germs from the nose and sinuses. After two or three days, the body's immune cells fight back, changing the mucus to a white or yellow color. As the bacteria that live in the nose grow back, they may also be found in the mucus, which changes the mucus to a greenish color. This is normal and does not mean you or your child needs antibiotics. Did you know. . . There s only a 1 in 4000 chance that an antibiotic will help most acute upper respiratory infections. But there s a 1 in 4 chance of diarrhea and a 1 in 50 chance of a skin reaction and a 1 in 1000 chance it ll cause an ER visit due to some side effect. Antibiotics can also lead to more resistant infections that are harder to treat. Bottom line: There s little to no benefit to taking antibiotics for most acute upper respiratory tract infections...and the downsides are real. Viruses cannot be treated by antibiotics. Viruses cause most upper respiratory infections, which include head colds, sore throats, bronchitis, and sinus infections. The common cold and influenza do not respond to antibiotics. Less than 10 percent of acute bronchitis cases are caused by bacteria. Most cases of acute ear infections also resolve without antibiotics. Sore throats (pharyngitis) are usually caused by viruses as well. Antibiotics are not recommended unless you have strep throat and only about 15 to 30 percent of pharyngitis cases in children and up to 10 percent of cases in adults are due to strep throat. Almost all cases of acute bacterial sinusitis resolve without antibiotics. There are a few situations in which antibiotics are needed, however. See your health care provider if you have a decreased immune system due to cancer, or if you are taking steroids, have HIV, or have had an organ transplant, or if your symptoms worsen or last longer than 2 to 3 weeks. Most often you should use the [id number] symptomatic treatment/s that your health care provider has recommended. These would include analgesic products such as acetaminophen (Tylenol ), decongestants, antihistamines, salt water gargles, drinking warm tea, and other methods to help treat the symptoms. Also remember that your best defense against getting the flu is to get a flu shot, but this does not, unfortunately, protect you against the many other viruses out in the environment that cause the other kinds of illnesses other than the actual influenza. documented in this encounter [facility] 07-11-2024 Note HNO ID: [id number] Author: CHARI VELA APRN.CNP Service: ? Author Type: Nurse Practitioner Type: Progress Notes Filed: 07/11/2024 19:32 Note Text: Telemedicine Visit - Distance Health Virtual Visit Note Patient seen on [employer] Video Visit platform. Location of patient: [place] Fritz MD, [place] I have communicated my name and active licensure. The patient's identity and physical location were verified at the time of this visit. Either the patient or their legal key account representative has been informed of the risks and benefits of -- and alternatives to -- treatment through a remote evaluation and consents to proceed with the evaluation remotely. Subjective The patient is a 49-year-old male presenting for evaluation of sinus pressure and pain. Sinus Pressure and Pain: - Severe pressure and pain in the nose and palate, radiating from ear to ear, x3 days. - Chronic dryness in the nasal passages. - Scheduled for rhinoplasty due to bilateral deviated septum. - Using a moisturizing nasal spray. - Taking a medication for nerve pain, similar to gabapentin. - Taking Klonopin for anxiety. Constitutional: no fevers or chills Head: (+) pressure Ears/Nose/Mouth/Throat: (+) nose pain, (+) sinus pressure, (+) dry nose, (+) mouth pain Resp: No cough Objective There were no vitals taken for this visit. General: No acute distress. Alert, oriented, pleasant, in NAD: Yes Ill appearing: No Lethargic appearing: No Eyes: Sclera clear: Yes Conjunctiva without erythema: Yes Oropharynx: moist mucous membranes Sinuses: tender with self palpation Respiratory distress: No Coughing noted: No Audible wheezing noted: No Imaging: - (the 5th) Brain MRI: No sinusitis indicated. 1. Viral sinusitis (J32.9) - Symptoms of nasal pain, palatal pain, and significant pressure across the head, worsening over the past three days. - Likely viral this etiology discussed - Currently using a moisturizing nasal spray; also on Klonopin for anxiety and an unspecified medication similar to gabapentin for nerve pain. - Advised patient to contact ENT for further guidance, evaluation and management due to upcoming procedure. Attestation Recording using [employer] software for draft documentation of the visit was discussed with the patient/authorized key account representative; all questions welcomed and answered. Patient/authorized key account representative agreed to proceed FOLLOW UP WITH ENT DISCUSSED SOON POSSIBLE - Red flags discussed for need for in person care - All questions answered MDM CODING: [facility] 07-11-2024 History of Present illness Narrative Telemedicine Visit - Distance Health Virtual Visit Note Patient seen on [employer] Video Visit platform. Location of patient: [place] Fritz MD, [place] I have communicated my name and active licensure. The patient's identity and physical location were verified at the time of this visit. Either the patient or their legal key account representative has been informed of the risks and benefits of -- and alternatives to -- treatment through a remote evaluation and consents to proceed with the evaluation remotely. Subjective The patient is a 49-year-old male presenting for evaluation of sinus pressure and pain. Sinus Pressure and Pain: - Severe pressure and pain in the nose and palate, radiating from ear to ear, x3 days. - Chronic dryness in the nasal passages. - Scheduled for rhinoplasty due to bilateral deviated septum. - Using a moisturizing nasal spray. - Taking a medication for nerve pain, similar to gabapentin. - Taking Klonopin for anxiety. Constitutional: no fevers or chills Head: (+) pressure Ears/Nose/Mouth/Throat: (+) nose pain, (+) sinus pressure, (+) dry nose, (+) mouth pain Resp: No cough Objective There were no vitals taken for this visit. General: No acute distress. Alert, oriented, pleasant, in NAD: Yes Ill appearing: No Lethargic appearing: No Eyes: Sclera clear: Yes Conjunctiva without erythema: Yes Oropharynx: moist mucous membranes Sinuses: tender with self palpation Respiratory distress: No Coughing noted: No Audible wheezing noted: No Imaging: - (the 5th) Brain MRI: No sinusitis indicated. 1. Viral sinusitis (J32.9) - Symptoms of nasal pain, palatal pain, and significant pressure across the head, worsening over the past three days. - Likely viral this etiology discussed - Currently using a moisturizing nasal spray; also on Klonopin for anxiety and an unspecified medication similar to gabapentin for nerve pain. - Advised patient to contact ENT for further guidance, evaluation and management due to upcoming procedure. Attestation Recording using [employer] software for draft documentation of the visit was discussed with the patient/authorized key account representative; all questions welcomed and answered. Patient/authorized key account representative agreed to proceed FOLLOW UP WITH ENT DISCUSSED SOON POSSIBLE - Red flags discussed for need for in person care - All questions answered MDM CODING: documented in this encounter [facility] 07-11-2024 Miscellaneous Notes Patient called stating he had a brain MRI yesterday at [facility] and it showed possible sinusitis. He wanted to check and see if he should be on an antibiotic. Please advise. Looking at the report, possible fungal involvement is mentioned, which is a much more complicated problem. I think the MRI finding needs reviewed with ENT. Lmom for patient to call the office. documented in this encounter [facility] 07-11-2024 Telephone encounter Note Patient called stating he had a brain MRI yesterday at [facility] and it showed possible sinusitis. He wanted to check and see if he should be on an antibiotic. Please advise. [facility] 07-11-2024 Telephone encounter Note Looking at the report, possible fungal involvement is mentioned, which is a much more complicated problem. I think the MRI finding needs reviewed with ENT. [facility] 07-11-2024 Telephone encounter Note Lmom for patient to call the office. [facility] 07-11-2024 Miscellaneous Notes Refill request, contract signed. documented in this encounter [facility] 07-11-2024 Telephone encounter Note Refill request, contract signed. [facility] 07-11-2024 Telephone encounter Note Images from the original note were not included. [facility] 07-11-2024 Miscellaneous Notes Images from the original note were not included. documented in this encounter [facility] 07-10-2024 History of Present illness Narrative Images from the original note were not included. [facility] Speech Language Pathology Raheem Cohn Jr. 1975 07/10/[address] Nur, We saw your patient today for a Modified Barium Swallow. It was concluded that your patient could benefit from outpatient swallowing therapy to: improve swallow function tolerate the least restrictive diet strengthen the muscles for swallowing If you are in agreement with swallowing therapy, please fax an order for speech therapy with a treatment diagnosis (such as dysphagia), signed, and dated to: [facility] [address] [place], [place] [address] Thank you for your referral. Signature: documented in this encounter [facility] 07-10-2024 History of Present illness Narrative ----- Wednesday, July 10, 2024 at 12:07:08 PM ----- ----- Provider: [id number] - Resident Heladio -- Clinic: [facility] ----- DENTURE ADJUSTMENT Patient presents for adjustment of his Lower CD. Reviewed patient's medical history. Patient is ready for treatment. Checked patient's mouth for red, sore, or cut areas. Checked the prostheses for irregularities, over extensions, and undercuts. Problem located and adjusted. The patient has three sets of dentures done outside [facility]. Every time he bites the bite shifts. I adjusted the oclussion today but the problem continued. He also complained about the left flange of his lower denture being overextended. It was adjusted today as well. The patient got a refund in the previous office and he was advised to go to a correspondence coordinator. I agreed with that advice and that is what he is going to do Next Visit: continue treatment with oral medicine - we cannot make him dentures at [facility] ----- Signed on Wednesday, July 10, 2024 at 12:42:33 PM ----- ----- Provider: [id number] Ashwini Sullivan DMD -- Clinic: [facility] ----- documented in this encounter [facility] 07-06-2024 Evaluation + Plan note Associated Problem(s): Opioid dependence in remission (HCC) Assessment: recovering addict since 2006, was on Meth and IV drugs [facility] 07-06-2024 Miscellaneous Notes Associated Problem(s): Opioid dependence in remission (HCC) Assessment: recovering addict since 2006, was on Meth and IV drugs Associated Problem(s): Neck pain Assessment: chronic neck and back pain on Gabapentin(Neurontin) Associated Problem(s): Hepatitis C Assessment: Treated Stable Liver enzymes stable documented in this encounter [facility] 07-06-2024 Instructions Denia Orosco APRN.CNP - 07/06/2024 2:20 PM EDT PATIENT PREOPERATIVE INSTRUCTIONS Donal Hays MD has scheduled you for your procedure at this surgery center: [facility] [place] Scheduling Office: [phone] --[address] [place] [address]. Please read below carefully for your personalized instructions. Dietary Restrictions: - No solid food after midnight. - You may have 12 ounces of clear liquids (water, clear juices such as apple juice or gatorade, carbonated beverages, clear tea, black coffee, jello) until 2 hours before scheduled arrival at facility. Medications: Unless instructed differently below, stay on all of your medications until your surgery. If you start any new medications after today's visit, please contact your surgeon. Please take these medications the morning of surgery: Gabapentin(Neurontin), Lyrica, Klonopin as needed If you are currently using a ntqi-joe-dibw injectable or oral medication for diabetes or weight loss such as Dulaglutide (Trulicity), Exenatide (Byetta, Bydureon), Liraglutide (Victoza, Saxenda), Semaglutide (Ozempic, Wegovy, Rybelsus), or Tirzepatide (Mounjaro), the medicine should be stopped at least 7 days before surgery. These medicines can cause food to remain in your stomach for a very long time and increase the risks from surgery and anesthesia. Not stopping the medication for a long enough time may result in your surgery being rescheduled. If you take any medications for erectile dysfunction-Cialis (Tadalafil), Levitra, Staxyn (Vardenafil) Viagra (Sildenenafil please do not take these for 48 hours before surgery. If you start any new medications after today's visit, please contact the surgeon's office. Blood Thinning Medications: - Stop NSAIDS (Ibuprofen, Advil, Aleve, Motrin, Celebrex, Mobic, etc.) 7 days before surgery, as directed by your surgeon. - Stop Aspirin 7 days before surgery, as directed by your surgeon. - Stop ALL herbal and dietary supplements 7 days before surgery. - You may take Tylenol (Acetaminophen) or any of your pain medications that do not contain aspirin or NSAIDS as needed. Important Reminders: - Candy, mints, and tobacco products are NOT permitted the morning of surgery. - Hearing aids, dentures and glasses may be worn the morning of surgery. - NO jewelry, body piercings, makeup, hairpins or contacts are to be worn the day of surgery. If you develop symptoms such as a fever, cold, or flu, or have other changes to your health within TWO DAYS of scheduled surgery or the morning of surgery, please contact the surgery center above. Personal Belongings: -Please have photo ID and insurance cards. -If you do not have a copy of advance directives on file with us, please bring a copy with you on the day of surgery. - Leave ALL valuables and money at home or with family members. For Outpatient Procedures: - YOU MUST HAVE A RESPONSIBLE BED RUBBER TAKE YOU HOME. A SHIPYARD SUPERVISOR OR STATE SUPERINTENDENT OF SCHOOLS CANNOT BE MADE A RESPONSIBLE BED RUBBER. - We recommend that a responsible person stays with you overnight to take care of you. - You cannot stay in a hotel alone after outpatient surgery. You will not be permitted to have your surgery, if you do not have someone to take care of you. Arrival Time for Surgery: - To obtain your arrival time for surgery, call your physician's office the day before your surgery. - If you have received different instructions about finding out your arrival time from your surgeon, please follow those instructions. - If your surgery is scheduled for Wednesday, call the Wednesday before. Your surgeon s chief crew scheduler will tell you what time to call the office. - If you have not reached the departmental chief crew scheduler by 5 P.M., call [phone] after 5 P.M. the day before your surgery. Please be aware that emergency situations arise, which may delay or change your surgical time. If this happens, we will notify you as soon as possible and regret any inconvenience. If you already have an Advance Directive, please fax a copy to [phone] or email to for it to be added to your chart. If you do not have an Advance Directive, you can find the appropriate form and more information at [email or web address]. We recommend that you complete the Advance Directive form found on the website and bring it with you the day of your surgery. It can be witnessed and scanned into your chart that day. Denia Orosco APRN.KARUNA documented in this encounter [facility] 07-06-2024 Evaluation + Plan note Associated Problem(s): Neck pain Assessment: chronic neck and back pain on Gabapentin(Neurontin) [facility] 07-06-2024 Evaluation + Plan note Associated Problem(s): Hepatitis C Assessment: Treated Stable Liver enzymes stable [facility] 07-06-2024 History and physical note Images from the original note were not included. [facility] HISTORY AND PHYSICAL EXAMINATION SERVICE DATE: 07/06/2024 SERVICE TIME: 1:46 PM PRIMARY CARE PHYSICIAN: Carrington Fritz MD, MD REASON FOR VISIT: Raheem Cohn is a 49 year old male who is scheduled for Bilateral - REPAIR NASAL VESTIBULAR STENOSIS SEPTOPLASTY Bilateral - RESECTION SUBMUCOSAL TURBINATES at the request of Dr. Donal Hays for consultation. My final recommendation will be communicated back to the requesting physician by way of shared medical record or letter. Assessment Patient has the following medical conditions which may affect suraj-operative course: Hepatitis C Assessment: Treated Stable Liver enzymes stable Neck pain Assessment: chronic neck and back pain on Gabapentin(Neurontin) Opioid dependence in remission (HCC) Assessment: recovering addict since 2006, was on Meth and IV drugs I - PHYSICAL EVALUATION AIRWAY Patient intubated: No. Tracheostomy tube not present Mallampati: II. TM distance: >3 FB. Neck ROM: parasthesia with flexion and extension. Mouth opening: adequate. Short neck: no. Additional comments: TMJ. Thick neck: no Moreno present: no Lip Bite Test: I Microretrognathia/Micronagthia/R ecessed Chin: No DENTAL Dentures, upper: complete. Dentures, lower: complete. II - ANESTHESIA PLAN Anesthetic plan additional comments: *PACC/TCI - anesthesia choice. Beta Ketty Monitoring Plan Post Procedure Analgesic Plan ANESTHESIA FINDINGS: Intubation History: No history of difficult intubation. No abnormal airway history Significant Anesthesia Considerations: none Airway History: No history of difficult airway No abnormal airway history Goss Activity Status Index: METS: Walk indoors, such as around the house (1.75 METs) Do light work around the house, such as dusting or washing dishes (2.70 METs) Take care of self; that is eating, dressing, bathing, using the toilet (2.75 METs) Walk a block or two on level ground (2.75 METs) Do moderate work around the house, such as vacuuming, sweeping floors, or carrying in groceries (3.50 METs) Do yardwork, such as raking leaves, weeding, or pushing a power mower (4.50 METs) Climb a flight of stairs or walk up a hill (5.50 METs) DASI Score: 23.45 Patient denies any chest pain or undue shortness of breath with the above physical activity. Clinical Frailty Scale: 2. Well STOP-Bang Score: Male patient Denies snoring loudly Denies feeling tired, fatigued, or sleepy during the daytime Has not been observed to stop breathing or choking/gasping during sleep Denies having high blood pressure BMI less than or equal to 35 kg/m^2 Patient 50 years old or younger Does not have a large neck STOP-Bang Score: 1 [id number] Score: Age: <65 Sex: male CHF history: No Hypertension history: No Stroke/TIA/thromboembolism history: No Vascular disease history: No Diabetes history: No [id number] Score: 0 ARISCAT Score: Age: <=50 Preoperative SpO2: >=96% Respiratory infection in the last month: No Preoperative anemia: Yes Surgical incision: peripheral Duration of surgery: >3 hrs Emergency procedure: No ARISCAT Score: 34 Prepared for surgery: This patient is optimally prepared for surgery. CONSULTS: Patient does not require consults for optimization at this time. The Following Tests/Procedures Have Been Initiated: Labs not indicated per PACC protocol, EKG not indicated per PACC protocol Planned Anesthetic: Per anesthesia choice Subjective CHIEF COMPLAINT: Nasal obstruction HPI: 49 year old male with multifactorial nasal obstruction refractory to medical management. Recommend septorhinoplasty with nasal valve repair and inferior turbinate reduction, possible MTF rib graft. Patient states he had a history of nose bleeds,. States pain today is 3/10 REVIEW OF SYSTEMS: PAIN ASSESSMENT: Pain Pain Level: 3 Pain Location: Nose Description: Aching, Sharp Duration Units: Unknown Frequency: Continuous Intervention/Comfort measure: Massage General: No weight loss, malaise or fevers. Neuro: No history of TIA's, stroke, MANAGER [employer] tumor, impaired sensorium, hemiplegia, paraplegia or quadraplegia. No neurological symptoms or problems. Respiratory: Positive for Tobacco Use Former , Negative for No history of current cough or dyspnea, or pneumonia in the past 6 weeks. No history of respiratory/pulmonary symptoms or problems Cardiovascular: No history of HTN requiring medication, no history of angina, CHF, VT, cardiac surgery or stents. Denies rest pain, gangrene or revascularization/amputation for PVD. No history of cardiovascular symptoms or problems. GI: Positive for Hepatitis C treated, Negative for GERD, Abdominal pain, Difficulty swallowing, Pancreatitis : No history of dysuria, frequency or incontinence,, stones or chronic kidney disease, No difficulty urinating, nocturia > 1 time per night or hematuria Endocrine: No history of diabetes. Has not taken steroids within the past 30 days. No history of endocrinological symptoms or problems. Hematology: No history of bleeding or clotting disorder. Pt is not taking anti-coagulation or platelet medications. No history of hematological symptoms or problems. Oncology: No history of CA metastasis, chemo within 30 days, or radiotherapy within 90 days. Has not lost 10% of body wt in 6 months. No history of oncological symptoms or problems. Psych: No history of psychiatric symptoms or problems. Marijuana use: No Musculoskeletal: Back pain and Joint pain Skin: Negative for lesions, rash and itching. Implanted Devices: No The patient has the following: ACTIVE PROBLEM LIST Anxiety State, Unspecified Hepatitis C Lumbar Disc Herniation Lumbago Spondylolisthesis, Grade 1 Ddd (Degenerative Disc Disease), Lumbar Fatigue Spondylosis of Cervical Spine Without Myelopathy Neck Pain Opioid Dependence in Remission (Hcc) TMJ (Dislocation of Temporomandibular Joint) Covid Immunization Dates Completed or No Longer Recommended Covid-19 Vaccine (Series Information) Completed 03/18/2024 Imm Admin: COVID-19 vaccine, age 12+ yr ([employer] [facility]) PAST MEDICAL HISTORY Diagnosis Date Amphetamine and other psychostimulant dependence, episodic (HCC) 06/03/2007 clean 09/11, again clean since 01/2013 Anxiety state, unspecified Carpal tunnel syndrome, bilateral Chronic back pain Heart murmur child Hepatitis C Insomnia, unspecified IVDU (intravenous drug user) in past, last in 2009 Verruca vulgaris right hand PAST SURGICAL HISTORY Procedure Laterality Date ANES DX/THER NERVE BLOCK/INJECTION PRONE POS 2012 CRYOSURGERY right hand wart PAST SURGICAL HISTORY OF 1992 right hand fracture FAMILY HISTORY Problem Relation Age of Onset other (Unknown [Other]) Father other (Anxiety [Other]) Mother Social History Tobacco Use Smoking status: Former Types: Cigarettes Smokeless tobacco: Former Types: Snuff Tobacco comments: Stopped smoking x 2 months ago as 07/06/24. Vaping Use Vaping status: Some Days Substances: Nicotine, Flavoring Devices: Disposable, Pre-filled or refillable cartridge Substance Use Topics Alcohol use: No Drug use: Yes Types: Amphetamines Comment: recovering addict since 2006, was on Meth and IV drugs Prior to Admission medications as of 07/06/24 1440 Medication Sig Last Dose Taking pregabalin (LYRICA) 75 mg capsule Take 75 mg by mouth. Yes cyanocobalamin, vitamin B-12, (B-12 COMPLIANCE INJECTION) by INJECTION(UNSPECIFIED PARENTERAL ROUTES) route once every month. Yes clonazePAM (KLONOPIN) 1 mg tablet Take 1 mg by mouth two times a day as needed for anxiety. Yes ubidecarenone Q-10 (CO Q-10) 10 mg cap Take 10 mg by mouth three times a day. Yes triamcinolone acetonide (KENALOG) 0.1 % ointment Apply thin layer to affected areas twice daily M-F. Take weekends off. Do not apply to face. Yes ketoconazole (NIZORAL) 2 % shampoo Apply 1 Application to affected area. Yes gabapentin (NEURONTIN) 300 mg capsule Take 600 mg by mouth three times a day. Yes No medication comments found. ALLERGIES Allergen Reactions Penicillins Anaphylaxis Objective PHYSICAL EXAM: VITALS: BP 141/90 Pulse 66 Temp (Src) 98.2 (Oral) Resp 16 Ht 5' 10 (1.78m) Wt 189 lb 9.5 oz (86.0kg) SpO2 98% BMI 27.20 kg/(m^2). General: Alert and oriented, No acute distress, Healthy appearance Skin: Normal color, no rash, no lesions. HEENT: EOM, pupils equal, round and reactive. Cardiovascular: Normal S1 & S2, no rubs, murmurs or gallops. No JVD. Pulse regular. Lungs: Normal breath sounds, no wheezes or crackles. Abdomen: Soft, non-tender, no rigidity., Positive bowel sounds Extremities: No deformity, no edema or tenderness, no joint swelling or clubbing. Neurological: Normal cognition and motor skills. Gait normal. No weakness or sensory deficit. Pulses: Carotid and radial pulses normal +2. Diagnostic tests reviewed for today's visit: Lab Value Units Date High Low HB 17.6 g/dL 04/14/2024 17.0 13.0 HCT 51.1 % 04/14/2024 51.0 39.0 WBC 6.74 k/uL 04/14/2024 11.00 3.70 PLT 168 k/uL 04/14/2024 400 150 NA 142 mmol/L 04/14/2024 144 136 K 4.8 mmol/L 04/14/2024 5.1 3.7 GLUC 93 mg/dL 04/14/2024 99 74 BUN 10 mg/dL 04/14/2024 24 9 CREAT 1.09 mg/dL 04/14/2024 1.22 0.73 PTSEC No results within date range. INR No results within date range. APTT No results within date range. ALT 45 U/L 04/14/2024 54 10 AST 36 U/L 04/14/2024 40 14 TBILI 0.7 mg/dL 04/14/2024 1.3 0.2 TSH No results within date range. Lab Value Units Date High Low HCGQT No results within date range. UHCG No results within date range. HCG, BODY* No results within date range. Lab Value Units Date High Low ABORHD No results within date range. ABSCREEN No results within date range. 01/07/2022 5:11 PM - [facility], Scanning In Component Results Component Value Range & Units Status Performing Lab Ventricular Rate 75 BPM Preliminary HEART Atrial Rate 75 BPM Preliminary HEART P-R Interval 176 ms Preliminary HEART QRS Duration 92 ms Preliminary HEART QT Interval 370 ms Preliminary HEART QTC Calculation (Bazett) 413 ms Preliminary HEART Calculated P [place] 53 degrees Preliminary HEART Calculated R [place] -68 degrees Preliminary HEART Calculated T [place] 51 degrees Preliminary HEART Impression NORMAL SINUS RHYTHM LEFT AXIS DEVIATION INCOMPLETE RIGHT BUNDLE BRANCH BLOCK , AGE UNDETERMINED ABNORMAL ECG Results-Findings NAME : RAHEEM COHN PID : [id number] : 1975 Gender : Male Race : ORD : [id number] Procedure Date : Jan 07 2022 17:08:09 Edit Date : Jan 07 2022 17:09:29 Diagnosis: NORMAL SINUS RHYTHM LEFT AXIS DEVIATION INCOMPLETE RIG Instructions Given to Patient: Instructions located in the after visit summary. Patient given verbal and written preop instructions and voices comprehension and compliance. SIGNATURE: Denia Orosco APRN.CNP PATIENT NAME: Raheem Cohn DATE: 07/06/2024 TIME: 2:41 PM [facility] 07-06-2024 History and physical note Images from the original note were not included. [facility] HISTORY AND PHYSICAL EXAMINATION SERVICE DATE: 07/06/2024 SERVICE TIME: 1:46 PM PRIMARY CARE PHYSICIAN: Carrington Fritz MD, MD REASON FOR VISIT: Raheem Cohn is a 49 year old male who is scheduled for Bilateral - REPAIR NASAL VESTIBULAR STENOSIS SEPTOPLASTY Bilateral - RESECTION SUBMUCOSAL TURBINATES at the request of Dr. Donal Hays for consultation. My final recommendation will be communicated back to the requesting physician by way of shared medical record or letter. Assessment Patient has the following medical conditions which may affect suraj-operative course: Hepatitis C Assessment: Treated Stable Liver enzymes stable Neck pain Assessment: chronic neck and back pain on Gabapentin(Neurontin) Opioid dependence in remission (HCC) Assessment: recovering addict since 2006, was on Meth and IV drugs I - PHYSICAL EVALUATION AIRWAY Patient intubated: No. Tracheostomy tube not present Mallampati: II. TM distance: >3 FB. Neck ROM: parasthesia with flexion and extension. Mouth opening: adequate. Short neck: no. Additional comments: TMJ. Thick neck: no Moreno present: no Lip Bite Test: I Microretrognathia/Micronagthia/R ecessed Chin: No DENTAL Dentures, upper: complete. Dentures, lower: complete. II - ANESTHESIA PLAN Anesthetic plan additional comments: *PACC/TCI - anesthesia choice. Beta Ketty Monitoring Plan Post Procedure Analgesic Plan ANESTHESIA FINDINGS: Intubation History: No history of difficult intubation. No abnormal airway history Significant Anesthesia Considerations: none Airway History: No history of difficult airway No abnormal airway history Goss Activity Status Index: METS: Walk indoors, such as around the house (1.75 METs) Do light work around the house, such as dusting or washing dishes (2.70 METs) Take care of self; that is eating, dressing, bathing, using the toilet (2.75 METs) Walk a block or two on level ground (2.75 METs) Do moderate work around the house, such as vacuuming, sweeping floors, or carrying in groceries (3.50 METs) Do yardwork, such as raking leaves, weeding, or pushing a power mower (4.50 METs) Climb a flight of stairs or walk up a hill (5.50 METs) DASI Score: 23.45 Patient denies any chest pain or undue shortness of breath with the above physical activity. Clinical Frailty Scale: 2. Well STOP-Bang Score: Male patient Denies snoring loudly Denies feeling tired, fatigued, or sleepy during the daytime Has not been observed to stop breathing or choking/gasping during sleep Denies having high blood pressure BMI less than or equal to 35 kg/m^2 Patient 50 years old or younger Does not have a large neck STOP-Bang Score: 1 [id number] Score: Age: <65 Sex: male CHF history: No Hypertension history: No Stroke/TIA/thromboembolism history: No Vascular disease history: No Diabetes history: No [id number] Score: 0 ARISCAT Score: Age: <=50 Preoperative SpO2: >=96% Respiratory infection in the last month: No Preoperative anemia: Yes Surgical incision: peripheral Duration of surgery: >3 hrs Emergency procedure: No ARISCAT Score: 34 Prepared for surgery: This patient is optimally prepared for surgery. CONSULTS: Patient does not require consults for optimization at this time. The Following Tests/Procedures Have Been Initiated: Labs not indicated per PACC protocol, EKG not indicated per PACC protocol Planned Anesthetic: Per anesthesia choice Subjective CHIEF COMPLAINT: Nasal obstruction HPI: 49 year old male with multifactorial nasal obstruction refractory to medical management. Recommend septorhinoplasty with nasal valve repair and inferior turbinate reduction, possible MTF rib graft. Patient states he had a history of nose bleeds,. States pain today is 3/10 REVIEW OF SYSTEMS: PAIN ASSESSMENT: Pain Pain Level: 3 Pain Location: Nose Description: Aching, Sharp Duration Units: Unknown Frequency: Continuous Intervention/Comfort measure: Massage General: No weight loss, malaise or fevers. Neuro: No history of TIA's, stroke, [employer]NA[employer] tumor, impaired sensorium, hemiplegia, paraplegia or quadraplegia. No neurological symptoms or problems. Respiratory: Positive for Tobacco Use Former , Negative for No history of current cough or dyspnea, or pneumonia in the past 6 weeks. No history of respiratory/pulmonary symptoms or problems Cardiovascular: No history of HTN requiring medication, no history of angina, CHF, VT, cardiac surgery or stents. Denies rest pain, gangrene or revascularization/amputation for PVD. No history of cardiovascular symptoms or problems. GI: Positive for Hepatitis C treated, Negative for GERD, Abdominal pain, Difficulty swallowing, Pancreatitis : No history of dysuria, frequency or incontinence,, stones or chronic kidney disease, No difficulty urinating, nocturia > 1 time per night or hematuria Endocrine: No history of diabetes. Has not taken steroids within the past 30 days. No history of endocrinological symptoms or problems. Hematology: No history of bleeding or clotting disorder. Pt is not taking anti-coagulation or platelet medications. No history of hematological symptoms or problems. Oncology: No history of CA metastasis, chemo within 30 days, or radiotherapy within 90 days. Has not lost 10% of body wt in 6 months. No history of oncological symptoms or problems. Psych: No history of psychiatric symptoms or problems. Marijuana use: No Musculoskeletal: Back pain and Joint pain Skin: Negative for lesions, rash and itching. Implanted Devices: No The patient has the following: ACTIVE PROBLEM LIST Anxiety State, Unspecified Hepatitis C Lumbar Disc Herniation Lumbago Spondylolisthesis, Grade 1 Ddd (Degenerative Disc Disease), Lumbar Fatigue Spondylosis of Cervical Spine Without Myelopathy Neck Pain Opioid Dependence in Remission (Hcc) TMJ (Dislocation of Temporomandibular Joint) Covid Immunization Dates Completed or No Longer Recommended Covid-19 Vaccine (Series Information) Completed 03/18/2024 Imm Admin: COVID-19 vaccine, age 12+ yr ([employer] [facility]) PAST MEDICAL HISTORY Diagnosis Date Amphetamine and other psychostimulant dependence, episodic (HCC) 06/03/2007 clean 09/11, again clean since 01/2013 Anxiety state, unspecified Carpal tunnel syndrome, bilateral Chronic back pain Heart murmur child Hepatitis C Insomnia, unspecified IVDU (intravenous drug user) in past, last in 2009 Verruca vulgaris right hand PAST SURGICAL HISTORY Procedure Laterality Date ANES DX/THER NERVE BLOCK/INJECTION PRONE POS 2012 CRYOSURGERY right hand wart PAST SURGICAL HISTORY OF 1992 right hand fracture FAMILY HISTORY Problem Relation Age of Onset other (Unknown [Other]) Father other (Anxiety [Other]) Mother Social History Tobacco Use Smoking status: Former Types: Cigarettes Smokeless tobacco: Former Types: Snuff Tobacco comments: Stopped smoking x 2 months ago as 07/06/24. Vaping Use Vaping status: Some Days Substances: Nicotine, Flavoring Devices: Disposable, Pre-filled or refillable cartridge Substance Use Topics Alcohol use: No Drug use: Yes Types: Amphetamines Comment: recovering addict since 2006, was on Meth and IV drugs Prior to Admission medications as of 07/06/24 1440 Medication Sig Last Dose Taking pregabalin (LYRICA) 75 mg capsule Take 75 mg by mouth. Yes cyanocobalamin, vitamin B-12, (B-12 COMPLIANCE INJECTION) by INJECTION(UNSPECIFIED PARENTERAL ROUTES) route once every month. Yes clonazePAM (KLONOPIN) 1 mg tablet Take 1 mg by mouth two times a day as needed for anxiety. Yes ubidecarenone Q-10 (CO Q-10) 10 mg cap Take 10 mg by mouth three times a day. Yes triamcinolone acetonide (KENALOG) 0.1 % ointment Apply thin layer to affected areas twice daily M-F. Take weekends off. Do not apply to face. Yes ketoconazole (NIZORAL) 2 % shampoo Apply 1 Application to affected area. Yes gabapentin (NEURONTIN) 300 mg capsule Take 600 mg by mouth three times a day. Yes No medication comments found. ALLERGIES Allergen Reactions Penicillins Anaphylaxis Objective PHYSICAL EXAM: VITALS: BP 141/90 Pulse 66 Temp (Src) 98.2 (Oral) Resp 16 Ht 5' 10 (1.78m) Wt 189 lb 9.5 oz (86.0kg) SpO2 98% BMI 27.20 kg/(m^2). General: Alert and oriented, No acute distress, Healthy appearance Skin: Normal color, no rash, no lesions. HEENT: EOM, pupils equal, round and reactive. Cardiovascular: Normal S1 & S2, no rubs, murmurs or gallops. No JVD. Pulse regular. Lungs: Normal breath sounds, no wheezes or crackles. Abdomen: Soft, non-tender, no rigidity., Positive bowel sounds Extremities: No deformity, no edema or tenderness, no joint swelling or clubbing. Neurological: Normal cognition and motor skills. Gait normal. No weakness or sensory deficit. Pulses: Carotid and radial pulses normal +2. Diagnostic tests reviewed for today's visit: Lab Value Units Date High Low HB 17.6 g/dL 04/14/2024 17.0 13.0 HCT 51.1 % 04/14/2024 51.0 39.0 WBC 6.74 k/uL 04/14/2024 11.00 3.70 PLT 168 k/uL 04/14/2024 400 150 NA 142 mmol/L 04/14/2024 144 136 K 4.8 mmol/L 04/14/2024 5.1 3.7 GLUC 93 mg/dL 04/14/2024 99 74 BUN 10 mg/dL 04/14/2024 24 9 CREAT 1.09 mg/dL 04/14/2024 1.22 0.73 PTSEC No results within date range. INR No results within date range. APTT No results within date range. ALT 45 U/L 04/14/2024 54 10 AST 36 U/L 04/14/2024 40 14 TBILI 0.7 mg/dL 04/14/2024 1.3 0.2 TSH No results within date range. Lab Value Units Date High Low HCGQT No results within date range. UHCG No results within date range. HCG, BODY* No results within date range. Lab Value Units Date High Low ABORHD No results within date range. ABSCREEN No results within date range. 01/07/2022 5:11 PM - [facility], Scanning In Component Results Component Value Range & Units Status Performing Lab Ventricular Rate 75 BPM Preliminary HEART Atrial Rate 75 BPM Preliminary HEART P-R Interval 176 ms Preliminary HEART QRS Duration 92 ms Preliminary HEART QT Interval 370 ms Preliminary HEART QTC Calculation (Bazett) 413 ms Preliminary HEART Calculated P [place] 53 degrees Preliminary HEART Calculated R [place] -68 degrees Preliminary HEART Calculated T [place] 51 degrees Preliminary HEART Impression NORMAL SINUS RHYTHM LEFT AXIS DEVIATION INCOMPLETE RIGHT BUNDLE BRANCH BLOCK , AGE UNDETERMINED ABNORMAL ECG Results-Findings NAME : RAHEEM COHN PID : [id number] : 1975 Gender : Male Race : ORD : [id number] Procedure Date : Jan 07 2022 17:08:09 Edit Date : Jan 07 2022 17:09:29 Diagnosis: NORMAL SINUS RHYTHM LEFT AXIS DEVIATION INCOMPLETE RIG Instructions Given to Patient: Instructions located in the after visit summary. Patient given verbal and written preop instructions and voices comprehension and compliance. SIGNATURE: Denia Orosco APRN.CNP PATIENT NAME: Raheem Cohn DATE: 07/06/2024 TIME: 2:41 PM documented in this encounter [facility] 07-04-2024 Telephone encounter Note Left voicemail and MyChart message sent. [facility] 07-04-2024 Miscellaneous Notes Left voicemail and MyChart message sent. Botox referral sent to pharmacy for hemifacial spasm. Please schedule with Dr. Wright. Laurel Leon RN documented in this encounter [facility] 07-04-2024 History of Present illness Narrative [facility] [address] [place] [address] Patient: Raheem Cohn Jr. Sex: male : 1975 Age: 49 y.o. PCP: Carrington Fritz MD 07/04/2024 Raheem Cohn JrAlistair is here for a(n) post procedure follow up bilateral TMJ injection with 30% relief that continues today . Patient states he continues to have pain when swallowing, but it has since improved after injection. Patient reports will be having nasal reconstruction surgery next month at [facility]. Had [facility] appointment 06/29/24. They suggest changing to Lyrica instead of Gabapentin. Date of onset of pain: April 2021 , pain has lasted greater than 3 months. Pain scale before treatment: 6/10 Pre-op pain score: 8/10 Percentage and duration of relief after treatment: 30% relief Pain scale after treatment: 4/10 Chief Complaint Patient presents with Neck Pain HPI: 03/24/24 Bilateral TMJ nerve block injection with 50% relief. 06/16/24 Bilateral TMJ injection 30% relief Neck Pain This is a chronic problem. The current episode started more than 1 month ago (April 2021). The problem occurs constantly. The problem has been gradually improving (after TMJ injection). The pain is present in the midline (right and left jaw, across front of face). The quality of the pain is described as aching (sharp pain to mouth and nose, Sharp shooting pain into bilateral occipital up to behind ears). The pain is at a severity of 4/10 (can get up to 10/10). The pain is moderate (to severe). The symptoms are aggravated by twisting, bending, sneezing and coughing (sitting, walking, lying, transitioning, eating, chewing, opening mouth). The pain is Same all the time. Stiffness is present All day. Associated symptoms include pain with swallowing and trouble swallowing. Pertinent negatives include no chest pain, headaches, numbness, tingling or weight loss. Associated symptoms comments: Shooting pain to right side of head . He has tried NSAIDs and muscle relaxants (PT, Chiropractor, jaw surgery, injections, flexeril, IBU, ketoradol, indomethocin) for the symptoms. The effect of pain on patient's ADLS: Moderate Impairment. Past Medical History: Diagnosis Date Acid reflux Anxiety Breathlessness lying flat Carpal tunnel syndrome Edentulous Hx of hepatitis C has been treated Jaw pain Murmur, cardiac as a child Neck pain Trigeminal neuralgia 06/2024 Wears dentures Past Surgical History: Procedure Laterality Date HAND SURGERY INJECTION BURSA INTERMEDIATE Bilat TMJ Bilateral 06/16/2024 Performed by Laurence Blankenship MD at [facility] INJECTION BURSA INTERMEDIATE Bilat TMJ Bilateral 03/24/2024 Performed by Laurence Blankenship MD at [facility] MANDIBLE SURGERY TOOTH EXTRACTION WRIST SURGERY Allergies Allergen Reactions Penicillins Anaphylaxis and Cough Anaphylaxis was listed per [facility]. Family History Problem Relation Age of Onset Diabetes Maternal Grandmother Social History Socioeconomic History Marital status: Single Spouse name: Not on file Number of children: Not on file Years of education: Not on file Highest education level: Not on file Occupational History Not on file Tobacco Use Smoking status: Former Current packs/day: 0.00 Types: Cigarettes Quit date: 02/16/1994 Years since quittin.4 Smokeless tobacco: Former Vaping Use Vaping status: Some Days Substance and Sexual Activity Alcohol use: Not Currently Drug use: Not Currently Types: Methamphetamines Sexual activity: Defer Other Topics Concern Not on file Social History Narrative Not on file Social Drivers of Health Financial Resource Strain: High Risk (03/05/2024) Received from [facility] Overall Financial Resource Strain (CARDIA) Difficulty of Paying Living Expenses: Very hard Food Insecurity: No Food Insecurity (07/04/2024) Hunger Screening Food Insecurity - Worry: Never True Food Insecurity - Inability: Never True Transportation Needs: No Transportation Needs (03/05/2024) Received from [facility] PRAPARE - Transportation Lack of Transportation (Medical): No Lack of Transportation (Non-Medical): No Recent Concern: Transportation Needs - Unmet Transportation Needs (02/14/2024) PRAPARE - Transportation Lack of Transportation (Medical): No Lack of Transportation (Non-Medical): Yes Physical Activity: Insufficiently Active (03/05/2024) Received from [facility] Exercise Vital Sign Days of Exercise per Week: 3 days Minutes of Exercise per Session: 20 min Stress: Stress Concern Present (03/05/2024) Received from [facility] [place] [facility] - Occupational Stress Questionnaire Feeling of Stress : Very much Social Connections: Moderately Isolated (03/05/2024) Received from [facility] Social Connection and Isolation Panel [NHANES] Frequency of Communication with Friends and Family: Never Frequency of Social Gatherings with Friends and Family: Never Attends Quaker Services: 1 to 4 times per year Active Member of Clubs or Organizations: No Attends Club or Organization Meetings: More than 4 times per year Marital Status: Never Interpersonal Safety: Not At Risk (03/05/2024) Received from [facility] Humiliation, Afraid, Rape, and Kick questionnaire Fear of Current or Ex-Partner: No Emotionally Abused: No Physically Abused: No Sexually Abused: No Housing Instability: High Risk (03/05/2024) Received from [facility] Housing Stability Vital Sign Unable to Pay for Housing in the Last Year: No Number of Times Moved in the Last Year: 0 Homeless in the Last Year: Yes Review of Systems Constitutional: Negative. Negative for chills and weight loss. HENT: Positive for trouble swallowing. Negative for congestion. Oral pain (palate), difficulty breathing through nose Eyes: Negative. Respiratory: Positive for shortness of breath. Negative for cough. Cardiovascular: Negative. Negative for chest pain. Gastrointestinal: Positive for constipation. Negative for diarrhea. Endocrine: Negative. Genitourinary: Negative. Musculoskeletal: Positive for neck pain. Skin: Negative. Thick yellow tonails Allergic/Immunologic: Negative. Neurological: Negative for tingling, numbness and headaches. Hematological: Negative. Psychiatric/Behavioral: Negative. Vital Signs: BP (!) 122/91 (BP Site: Right Arm, BP Postition: Sitting) Pulse 80 Resp 18 SpO2 98% Physical Exam: GENERAL - Healthy patient that appears stated age. HEENT - Normocephalic / Atraumatic, Extraoccular movements intact, trachea midline, thyroid within normal limits. CV - pulse regular, Warm extremities with appropriate color of nailbeds. RESP - No obvious wheezing, No Shortness of Breath, No overexertion response to exam maneuvers. COORDINATION - remains intact. PSYCH - Alert and Oriented x4, Attentive and appropriate, constitutionally normal, displays normal mood and affect per situation, answered questions appropriately during examination, demonstrated appropriate attention during discussion, demonstrated appropriate cognitive reasoning and understanding of the medical condition by asking appropriate questions regarding the diagnosis and risks/benefits/alternatives of treatment modalities. No obvious deficits in memory, reasoning, or intellect.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 status: Single Spouse name: Not on file Number of children: Not on file Years of education: Not on file Highest education level: Not on file Occupational History Not on file Tobacco Use Smoking status: Former Current packs/day: 0.00 Types: Cigarettes Quit date: 02/16/1994 Years since quittin.3 Smokeless tobacco: Former Vaping Use Vaping status: Some Days Substance and Sexual Activity Alcohol use: Not Currently Drug use: Not Currently Types: Methamphetamines Sexual activity: Defer Other Topics Concern Not on file Social History Narrative Not on file Social Drivers of Health Financial Resource Strain: High Risk (03/05/2024) Received from [employer] Overall Financial Resource Strain (CARDIA) Difficulty of Paying Living Expenses: Very hard Food Insecurity: No Food Insecurity (05/30/2024) Hunger Screening Food Insecurity - Worry: Never True Food Insecurity - Inability: Never True Transportation Needs: No Transportation Needs (03/05/2024) Received from [employer] PRAPARE - Transportation Lack of Transportation (Medical): No Lack of Transportation (Non-Medical): No Recent Concern: Transportation Needs - Unmet Transportation Needs (02/14/2024) PRAPARE - Transportation Lack of Transportation (Medical): No Lack of Transportation (Non-Medical): Yes Physical Activity: Insufficiently Active (03/05/2024) Received from [employer] Exercise Vital Sign Days of Exercise per Week: 3 days Minutes of Exercise per Session: 20 min Stress: Stress Concern Present (03/05/2024) Received from [employer] [place] [facility] [employer] [facility] - Occupational Stress Questionnaire Feeling of Stress : Very much Social Connections: Moderately Isolated (03/05/2024) Received from [employer] Social Connection and Isolation Panel [NHANES] Frequency of Communication with Friends and Family: Never Frequency of Social Gatherings with Friends and Family: Never Attends Quaker Services: 1 to 4 times per year Active Member of Clubs or Organizations: No Attends Club or Organization Meetings: More than 4 times per year Marital Status: Never Interpersonal Safety: Not At Risk (03/05/2024) Received from [employer] Humiliation, Afraid, Rape, and Kick questionnaire Fear of Current or Ex-Partner: No Emotionally Abused: No Physically Abused: No Sexually Abused: No Housing Instability: High Risk (03/05/2024) Received from [employer] Housing Stability Vital Sign Unable to Pay for Housing in the Last Year: No Number of Times Moved in the Last Year: 0 Homeless in the Last Year: Yes Review of Systems Constitutional: Negative for weight loss. HENT: Positive for trouble swallowing. Oral pain (palate), difficulty breathing through nose Respiratory: Positive for shortness of breath. Negative for cough. Cardiovascular: Negative for chest pain. Gastrointestinal: Positive for constipation. Negative for diarrhea. Genitourinary: Negative. Musculoskeletal: Positive for neck pain. Skin: Negative. Thick yellow tonails Neurological: Positive for numbness (fingers bilaterally). Negative for tingling and headaches. Psychiatric/Behavioral: Negative. Vital Signs: BP 128/87 Pulse 80 Resp 16 Physical Exam: GENERAL - Healthy patient that appears stated age. HEENT - Normocephalic / Atraumatic, Extraoccular movements intact, trachea midline, thyroid within normal limits. CV - pulse regular, Warm extremities with appropriate color of nailbeds. RESP - No obvious wheezing, No Shortness of Breath, No overexertion response to exam maneuvers. COORDINATION - remains intact. PSYCH - Alert and Oriented x4, Attentive and appropriate, constitutionally normal, displays normal mood and affect per situation, answered questions appropriately during examination, demonstrated appropriate attention during discussion, demonstrated appropriate cognitive reasoning and understanding of the medical condition by asking appropriate questions regarding the diagnosis and risks/benefits/alternatives of treatment modalities. No obvious deficits in memory, reasoning, or intellect. Cervical: Tenderness noted to bilateral TMJ without swelling, warmth or erythema. SKIN - No rashes or bruising in the area of the patient s pain. LYMPH NODES - demonstrate no obvious enlargement. EXTREMITIES - Upper extremities are warm, with minimal edema and palpable pulses. Tenderness to palpation noted in the cervical spine and paraspinal musculature. Pain is elicited with flexion, extension, and lateral rotation of the cervical spine. Range of motion is diminished with these motions due to pain. Facet palpation is noted to be painful and concordant with the patient s normal pain complaints. STRENGTH - noted to be 5 out of 5 all muscle groups bilateral upper extremities including muscles involving shoulder flexion and abduction, elbow flexion and extension, as well as wrist flexion and extension and intrinsic muscles of the hand. No notable atrophy, fasciculations or spasm. SENSORY - No notable sensory deficits in the bilateral upper extremities to touch or pinprick in all dermatomal distributions. Spurlings sign is negative. Assessment/Treatment Plan: Raheem was seen today for neck pain. Diagnoses and all orders for this visit: Cervical spondylosis without myelopathy - gabapentin (NEURONTIN) 600 mg tablet; Take 1 tablet (600 mg total) by mouth in the morning and 1 tablet (600 mg total) at noon and 1 tablet (600 mg total) in the evening and 1 tablet (600 mg total) before bedtime. TMJ (temporomandibular joint disorder) - Case request operating room: INJECTION BURSA LARGE JOINT: bilat tmj Bilateral Temporomandibular joint injection - under fluoroscopy with the use of contrast dye (unless contraindicated) It is hopeful that the described procedure will provide symptomatic pain relief. It is felt to be medically necessary noting that the patient has tried and failed more conservative modalities of therapy and this is the next most appropriate step. The procedure was described in detail to the patient as well as the potential benefits of pain reduction alongside risks of the procedure and alternatives. Risks were described as including, but not limited to bleeding, infection, nerve damage, spinal cord injury, paralysis, stroke, dural puncture headache, and medication reaction. The patient expressed understanding regarding the risks and benefits and wishes to proceed. It was explained that Temporomandibular joint injections occasionally require a repeat injection before significant relief is noted, but we will determine after each injection if another one is indicated. Depending on the amount and duration of relief obtained from the injection, additional modalities of therapy including medications and physical therapy may need to be utilized alongside or following the injections. Increase gabapentin to 600 mg QID With Regard to medication management, it is felt that the patient would benefit from the changes mentioned above. This should provide symptomatic pain relief as part of the comprehensive pain management strategy outlined. Risks, Benefits, Side effects, and possible interactions of these medications were reviewed and the medication agreement has been discussed, agreed upon, and signed. The patient understands compliance concerns and the requirement of pill counts and drug screens while taking medications prescribed by this clinic. Follow up 2 weeks after procedure. The medications I have prescribed have been reviewed for medication interactions/contraindications and/or for upcoming procedures: continue current medication regimen without any changes. DISCUSSION: Treatment options discussed with patient and all questions answered to patient's satisfaction. Discussed the rules and regulations surrounding prescription of opioids and compliance at length. Failure to follow the rules and regulation will result in tapering and discontinuation of medications if applicable. It is noted that the patient did have good response from the previously performed procedure. It is felt that the patient would benefit from an additional procedure of the same nature in that the same symptoms have returned. It is hopeful that this additional injection will provide additional benefit and duration when combined with the previous injection. Prescribed medication that requires intensive monitoring for toxicity: Gabapentin and was increased at today's office visit. Treatment plans discussed but not opted for at this time: Cervical MBB. Patient would like to proceed with the current outlined treatment plan before moving forward with any other options. Chronic conditions not treated during this visit that affected my overall medical decision making: Comorbidity- Anxiety The patient describes a significant issue with anxiety. Although treatment is helpful with this regard, the patient is likely need special accommodation due to this condition. For this reason, necessary procedures will likely need to be performed under sedation to decrease procedural anxiety. The spine model was demonstrated and MRI was reviewed and used to explain the condition. OARRS: Reviewed. Follow up 2 weeks after procedure. Scribe Statement: ICriselda RN, scribed for and in the presence of SUZANNA CAMPUZANO who performed the above service. Criselda Suazo RN 05/30/24 [id number] SUZANNA Campuzano 05/30/24 1524 documented in this encounter [facility] 05-30-2024 Instructions Criselda Suazo RN - 05/30/2024 12:00 PM EDT Joint Injections / Other These procedure(s) involve injecting steroid medications into a joint or other area explained by your physician. Steroid medicine decreases pain and inflammation. The injection may also contain an anesthetic (numbing medicine) to decrease pain. It may be done to treat conditions such as arthritis, gout, carpal tunnel syndrome and more. The injections may be given in your hip, knee, ankle, shoulder, elbow, wrist, or ankle. How Long Will This Procedure Last? The extent and duration of pain relief may depend on the amount of inflammation and how many areas are involved. Other coexisting factors may be responsible for your pain. You and your physician will discuss expected results of procedure(s). After Your Injection You may experience soreness and tenderness at the area of treatment. This pain may not occur until later today after the numbing medicine wears off. The steroid can take 3-5 days to work and provide noticeable improvement. Activity You may resume normal activity as your comfort level allows. Medications Resume your routine medications after your procedure. You may resume blood thinners per your regular schedule after the procedure. If you received sedation: If you received sedation for your procedure, you may feel sleepy or not yourself for several hours today. For the next 24 hours avoid activities that requires alertness or coordination. This includes: Driving or operating heavy machinery Using power tools Consuming alcohol Do not make important or complex decisions or sign legal documents in the next 24 hours. Other Instructions: If you feel severe pain at the injection site with swelling and redness, increased leg weakness, a fever of 101 or higher, headache (or worsening headache), changes in vision or urinary retention: Please call the office at , or have someone take you to the nearest emergency room. Tell the emergency room staff that you recently had a spine injection. A doctor must evaluate you for bleeding and injection complications. If you lose control over bowel, bladder, or legs: Go to the nearest emergency room. If you are diabetic, the steroids used in this procedure can increase your blood sugar. If your blood sugar is 250mg/dL or higher, contact your primary care physician, or the doctor who manages your diabetes, to discuss how to get it back to normal. documented in this encounter [facility] 05-29-2024 Note HNO ID: [id number] Author: DONAL HAYS MD Service: ? Author Type: Physician Type: Progress Notes Filed: 06/09/2024 16:22 Note Text: Section of Facial Plastic AND Reconstructive Surgery Head and Neck [place], [facility] NEW PATIENT CONSULTATION CC: nasal obstruction Referring Provider: No referring provider defined for this encounter. Phone: N/A Fax: My recommendations will be communicated to the referring provider via the electronic medical record or [place] mail. IMPRESSION AND PLAN: Raheem Cohn is a 49 year old male with multifactorial nasal obstruction refractory to medical management. Exam reveals septal deviation, nasal valve collapse, and inferior turbinate hypertrophy. Recommend septorhinoplasty with nasal valve repair and inferior turbinate reduction, possible MTF rib graft. After discussing the risks, benefits, and alternatives the patient would like to pursue surgery. Informed consent was obtained and the patient will be scheduled at a mutually convenient date. Donal Hays MD Facial Plastic and Reconstructive Surgery Head and Neck [place] [facility] 05/29/2024 HISTORY OF PRESENT ISSUE: Raheem Cohn is a 49 year old male who presents for evaluation of nasal obstruction. History of previous nasal trauma / fractures. Has used nasal steroid spray for > 1 mo without improvement. Left side is worse than left. No previous nasal surgery. I reviewed the patient's past medical history, past surgical history, social history, family medical history, allergies, and current medications. PHYSICAL EXAM: vitals were not taken for this visit. Nose Right dorsal deviation Severe caudal and posterior septal deviation, postraumatic Static and dynamic nasal valve obstruction with + mod wilfrid Mild inferior turbinate hypertrophy IMAGING: I personally reviewed the following radiologic exams: NA REVIEW OF RECORDS: I personally reviewed the office encounters from 0 independent providers: [facility] / LABS: I personally reviewed the following reports: [facility] PROCEDURES: NA [facility] 05-29-2024 History of Present illness Narrative Images from the original note were not included. Section of Facial Plastic & Reconstructive Surgery Head and Neck [place], [facility] NEW PATIENT CONSULTATION CC: nasal obstruction Referring Provider: No referring provider defined for this encounter. Phone: N/A Fax: My recommendations will be communicated to the referring provider via the electronic medical record or [place] mail. IMPRESSION & PLAN: Raheem Cohn is a 49 year old male with multifactorial nasal obstruction refractory to medical management. Exam reveals septal deviation, nasal valve collapse, and inferior turbinate hypertrophy. Recommend septorhinoplasty with nasal valve repair and inferior turbinate reduction, possible MTF rib graft. After discussing the risks, benefits, and alternatives the patient would like to pursue surgery. Informed consent was obtained and the patient will be scheduled at a mutually convenient date. Donal Hays MD Facial Plastic and Reconstructive Surgery Head and Neck [place] [facility] 05/29/2024 HISTORY OF PRESENT ISSUE: Raheem Cohn is a 49 year old male who presents for evaluation of nasal obstruction. History of previous nasal trauma / fractures. Has used nasal steroid spray for > 1 mo without improvement. Left side is worse than left. No previous nasal surgery. I reviewed the patient's past medical history, past surgical history, social history, family medical history, allergies, and current medications. PHYSICAL EXAM: vitals were not taken for this visit. Nose Right dorsal deviation Severe caudal and posterior septal deviation, postraumatic Static and dynamic nasal valve obstruction with + mod wilfrid Mild inferior turbinate hypertrophy IMAGING: I personally reviewed the following radiologic exams: NA REVIEW OF RECORDS: I personally reviewed the office encounters from 0 independent providers: [facility] / LABS: I personally reviewed the following reports: [facility] PROCEDURES: NA documented in this encounter [facility] 05-22-2024 History of Present illness Narrative Images from the original note were not included. [facility] Neck Pain - Chronic (> 12 weeks) Follow Up Exam SUBJECTIVE HISTORY OF PRESENT ILLNESS: Raheem Cohn is a 49 year old male who presents with a chief complaint of neck pain and is seen in consultation requested by Brandy Erickson PA-C for an opinion regarding neck pain. My final recommendations will be communicated back to the requesting physician by way of shared medical record or letter via [place] mail. Patient presents with neck pain for 14 months. He believes symptoms started after having some kind of infection while working in [place]. He states that he became ill in [place] and when he returned to [place] he was diagnosed with an infection . He states that since this time he has experienced jaw pain, difficulty swallowing, neck pain, and swelling of his neck. He reports that jaw pain and difficulty swallowing is his main concern. He has been evaluated by primary care, ENT, neurosurgery, infectious disease, and pain management in regards to pain and difficulty swallowing. He is also under the evaluation of orthopedic surgery in regards to left shoulder pain. He states at time of appointment that he feels that all his symptoms are connected. 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 Distribution of symptoms are unchanged. Pain localized to under his jaw up to his nose, occipital region, bilateral neck, Pain described as aching, stabbing Radiation:t/o head Numbness/Tingling: Denies He denies loss of bowel or bladder control, denies dexterity difficulties, denies imbalance. Pain rated 7-9/10 Pain worse with trying to swallow, panicking, Pain improved with tens unit, air cast , heat, holding his head, keeping perfectly straight posture. Interventions: Tens unit, medication , air cast Medications:Gabapentin, Clonazepam, Pamelor, Seroquel, Thorazine, Prilosec, Lamisil, Past medications: tramadol, Physical Therapy: 01/28/2024 - 1 visit for TMJ - stopped due to pain. Treating Physicians: Dr. Germain -PCP Brandy BRISENO - Orthopaedics - Referring Provider Kay BRISENO - Spine/Neurosurgery - 03/17/2024 Dr Aquino - Infectious Diseases Lyn BRISENO - Ent-Otolaryngology Dr Garcia - Neurology Dr. Garcia - Pain management History of Spine Injections/Surgery: None for spine 05/15/2024 Left shoulder injection w/ orthopaedic surgery 03/24/24 Bilateral TMJ nerve block injection with 50% relief w/ Dr. Blankenship Other Issues Addressed at the Visit Today: None. Precipitating Event: None PAIN EVALUATION 05/19/20241943 Pain Level: 7 Pain Location: Cheek Description: Burning;Crushing;Incision;Pressu re Ulcer/Injury;Raw;Shooting;Stabbi ng;Stiffness;Tightness Duration Amount of Time: 2 Duration Units: Years Frequency: Continuous Intervention/Comfort measure: Medication;Distractions;Heat;Spl inting;Therapeutic techniques-CPRP Comments: Deviated septum out of control Litigation: No Workers' Compensation: No YELLOW & BLUE FLAGS YES-Neg Attitude; Back Pain is Disabling YES-Avoiding Activity (for Fear of Pain) YES-Depression or Anxiety Disorders No-Social Problems No-Substance Use Disorder No-Job Dissatisfaction No-Financial Disincentives Patient Entered Questionnaires 03/13/2024 Spine Questions Pain Location: Other Pain Duration: 1 to 5 years Pain over last 6 months: Every day or nearly every day in the past 6 months Symptoms from neck/cervical spine: Yes Employment Status: Other Off work 1 month or more due to back/neck pain: Yes Applied for/receive disability/WC due to low back/neck pain Does not apply Involved in law suit/legal claim: No 03/13/2024 Spine Red Flags Any type of cancer: No Unexplained fever: No Bowel or bladder disfunction: No Unintentional weight loss: No Osteoporosis: No 03/13/2024 Neck Questionnaires Benzel Modified KOBE Score Incomplete PROMIS Score Percentiles 01/28/2024 03/13/2024 Physical Health Physical Function Percentile 0 2 Sleep Percentile 14 Fatigue Percentile 1 Pain Interference Percentile 0 03/13/2024 PROMIS SOCIAL ROLE SCORE Social Role Satisfaction Percentile 2 12/08/2023 03/13/2024 PROMIS Global Health Scale Physical Health Percentile 1 2 Mental Health Percentile 2 2 Percentiles provide an indication of how the patient's score ranks in relation to the general population. Higher percentile rankings indicate better function/quality of life. 50th percentile is the average of the general population and indicates half of respondents had a worse score. Depression Screenin01/17/2024 03/13/2024 03/31/2024 PHQ-9 Score 25 17 11 01/17/2024 03/13/2024 03/31/2024 PHQ-9 Self-harm Question Question 9 Nearly every day Not at all Not at all PHQ-9 Self-Harm (Item 9) response options: 0 Not at all 1 Several days 2 More than half the days 3 Nearly every day PHQ-9 Levels: 0-4 No - mild depression 5-9 Mild depression 10-14 Moderate depression 15-19 Moderately severe depression 20-27 Severe depression ACTIVE PROBLEM LIST Anxiety State, Unspecified Insomnia, Unspecified Amphetamine and Other Psychostimulant Dependence, Episodic (Hcc) Hepatitis C Lumbar Disc Herniation Lumbago Spondylolisthesis, Grade 1 Ddd (Degenerative Disc Disease), Lumbar Polysubstance Dependence Including Opioid Type Drug, Episodic Abuse (Hcc) Weight Loss Fatigue PAST MEDICAL HISTORY Diagnosis Date Amphetamine and other psychostimulant dependence, episodic (HCC) 06/03/2007 clean 09/11, again clean since 01/2013 Anxiety state, unspecified Carpal tunnel syndrome, bilateral Chronic back pain Heart murmur child Hepatitis C Insomnia, unspecified IVDU (intravenous drug user) in past, last in 2009 Verruca vulgaris right hand PAST SURGICAL HISTORY Procedure Laterality Date ANES DX/THER NERVE BLOCK/INJECTION PRONE POS 2013 CRYOSURGERY right hand wart PAST SURGICAL HISTORY OF 1992 right hand fracture Social History Tobacco Use Smoking status: Every Day Current packs/day: 0.30 Average packs/day: 0.3 packs/day for 16.0 years (4.8 ttl pk-yrs) Types: Cigarettes Smokeless tobacco: Current Tobacco comments: Pt basically does chew Substance Use Topics Alcohol use: No Drug use: Yes Types: Amphetamines Comment: recovering addict since 2006, was on Meth and IV drugs FAMILY HISTORY Problem Relation Age of Onset other (Unknown [Other]) Father other (Anxiety [Other]) Mother ALLERGIES Allergen Reactions Penicillins Anaphylaxis CURRENT MEDICATIONS: ketoconazole (NIZORAL) 2 % shampoo Apply 1 Application to affected area. Vitamin A 2,400 mcg capsule Take 8,000 Units by mouth. clonazePAM (KLONOPIN) 0.5 mg tablet Take 1 mg by mouth. gabapentin (NEURONTIN) 300 mg capsule Take 600 mg by mouth three times a day. vit B complex no.12/niacin,B3, (VITAMIN B COMPLEX NO.12-NIACIN ORAL) Take by mouth. b complex, c, folic acid 1 mg renal vitamins (NEPHROCAPS) 1 mg capsule Take 1 capsule by mouth every morning. Ferrous Gluconate 240 mg (27 mg iron) tablet Take by mouth as directed. fluticasone (FLONASE) 50 mcg/actuation nasal spray Use in the nose. niacin (NIACIN) 100 mg tablet Take by mouth as directed. saliva stimulant comb. no.4 spry Use 2 Sprays as instructed every 4 hours as needed. chlorproMAZINE (THORAZINE) 50 mg tablet Take 2 tablets by mouth one time only for 1 dose. Take 1 hour prior to MRI. terbinafine HCl (LAMISIL) 250 mg tablet Take 250 mg by mouth once daily. QUEtiapine (SEROQUEL) 100 mg tablet Take 200 mg by mouth daily at bedtime. nortriptyline (PAMELOR) 25 mg capsule Take 1 capsule by mouth two times a day. omeprazole (PRILOSEC) 40 mg capsule Take 40 mg by mouth once daily. REVIEW OF SYSTEMS: PAIN ASSESSMENT: See HPI. GENERAL: Denies fever, chills malaise and weight loss. HEENT: No recent change in vision or hearing. CARDIOVASCULAR: Hypertension RESPIRATORY: Denies SOB, sputum production, and hemoptysis. GI: Denies GI ulcers, inflammatory disease, or liver disease. : Denies change in frequency or urgency, kidney disease, and burning with urination. MUSCULOSKELETAL: Positive for See HPI SKIN: Denies rash or itching. PSYCHOLOGICAL: Depression and Anxiety NEURO: Denies CVA, seizures, headaches. ENDOCRINE: Denies diabetes, thyroid disease. HEMATOLOGY/LYMPHOLOGY: Denies cancer, bleeding or clotting disorders, anemia,and DVT's. ALLERGIC/IMMUNOLOGICAL: Denies risks for infection, or recent MRSA infections. OBJECTIVE: PHYSICAL EXAM Ht 177.8 cm (5' 10 ) Wt 87.6 kg (193 lb 2 oz) BMI 27.71 kg/m GENERAL APPEARANCE: Well appearing, well-hydrated, well nourished and alert SKIN: Head, neck, trunk, and extremities dry, intact and without lesions LUNGS: even and non-labored breathing, normal chest excursion NEURO/PSYCH: oriented to time, place, and person, speech normal, mental status intact, Mood: Anxious, Elevated, Irritable GAIT: normal, toe walking normal, heel walking normal, able to tandem gait POSTURE: Posture and spinal curves are normal PALPATION: no palpable masses, tenderness, or spasm, no palpable subluxation or step-off, no point tenderness over the spine MUSCULOSKELETAL: Extended Low Back & Leg Exam Lumbar Range of Motion Flexion Touches floor Extension Normal RIGHT LEFT Lateral Bending Full Full Oblique Extension Within Normal Limits Within Normal Limits DTRs Knee Normal Normal Medial Hamstring Normal Normal Strength of Lower Extremities Extensor Hallux Longus 5/5 5/5 Ankle Dorsiflexion 5/5 5/5 Ankle Plantarflexion 5/5 5/5 Knee Extension 5/5 5/5 Rakesh's Exam: Deferred @[email or web address]@ Cervical Range of Motion Flexion Normal Extension Normal RIGHT LEFT Rotation Full ROM with pain Full ROM with pain Lateral Bend Full ROM with pain Full ROM with pain Upper Body Reflex Exam RIGHT LEFT Reflex Status Reflex Status Biceps 2+ Normal 2+ Normal Triceps 2+ Normal 2+ Normal Brachioradialis 2+ Normal 2+ Normal Inverted Radial 2+ Normal 2+ Normal Pham's Sign absent absent Upper Extremity Strength RIGHT LEFT Strength (MMT) Strength (MMT) Shoulder Abduction 5/5 5/5 Biceps 5/5 5/5 Triceps 5/5 5/5 Resisted Suppination 5/5 5/5 Wrist Extension 5/5 5/5 Interossei 5/5 5/5 Shoulder Range of Motion RIGHT LEFT Flexion Normal Normal - with pain Extension Normal Normal - with pain Abduction Normal Normal - with pain Adduction Normal Normal - with pain Internal Rotation Normal Normal - with pain External Rotation Normal Normal- with pain Shoulder Tests Neer Impingement Sign - Positive - left Empty Can Test - Positive - Left Hawkin's-Torsten Test - Positive- left Speed's Test - Negative NEUROSENSORY: Soft touch; Within Normal Limits Lhermitte's test: Negative Spurling test: Negative Tinel's test: Negative Phalen's test: Negative Neuro Tests: None Data Review: [facility] records independently reviewed Images independently reviewed with the patient Outside records independently reviewed, no imaging available MRI Cervical 05/19/2024:Mild degenerative changes in the cervical spine detailed by level in the body the report without high-grade canal stenosis. Alignment: Alignment is anatomic. Craniocervical junction: Craniocervical junction is normal. Cord: The visualized cord is within normal limits of signal intensity and morphology. Bone marrow signal/fracture: No evidence of pathologic marrow infiltration. No evidence of prior fracture. Cervical soft tissues: The paraspinal soft tissues are within normal limits. C2-C3: Mild degenerative change. Canal and foramina are patent. C3-C4: Mild degenerative change. Canal and foramina are patent. C4-C5: Mild degenerative change. Canal and foramina are patent. C5-C6: Disc height loss with endplate hypertrophy and disc osteophyte complex mildly narrowing the canal. Slight left foraminal narrowing from facet and uncinate degenerative change. Right foramen is patent. C6-C7: Moderate disc height loss. Minimal left foraminal narrowing from facet and uncinate degenerative change. Canal and right foramen remain patent. C7-T1: Canal and foramina are patent. MRI Shoulder Left 04/26/2024: 1. Mild supraspinatus tendinitis with tiny partial articular sided tear of the distal anterior fibers 0.5 cm. 2. Minimal acromioclavicular and glenohumeral osteoarthropathy. Mild AC joint and acromial impingement. Degenerative glenoid labral tear. CTA Neck and Head 03/29/2024: No evidence of hemodynamically significant stenosis, intraluminal filling defect, abrupt vessel occlusion, aneurysm or vascular malformation in the intracranial and extracranial arterial vasculature. Arterial blood flow was measured to detect acute large vessel occlusion by computer aided detection software: Not Performed. Concordance between software and imaging review: Not Applicable. BRAIN: Evaluation of the individual slices of the CTA demonstrates no evidence of an acute stroke. ASPECT Score = 10 Hemorrhage: No clear evidence of acute intracranial hemorrhage within the constraints of this contrast enhanced acquisition. ECASS hemorrhagic transformation score: Not Applicable NECK: Soft tissues: The soft tissue planes are maintained throughout. No evidence of a soft tissue mass in the neck or superior mediastinum. No significant lymphadenopathy is seen. Spine: Alignment is normal. Mild degenerative changes are present. Lung apices: There is biparietal bilateral paraseptal emphysema. The visualized lung apices are clear. CT ARTERIOGRAM: Extracranial Circulation: Aortic Arch: There is a normal branching pattern from the aortic arch. There is no significant stenosis in the proximal brachiocephalic vessels. Carotid Stenosis: Right Common: No significant stenosis. Right Internal Carotid Plaque: No significant plaque formation. Right Internal Carotid Stenosis (% by NASCET Criteria): 0 Left Common: No significant stenosis. Left Internal Carotid Plaque: No significant plaque formation. Left Internal Carotid Stenosis (% by NASCET Criteria): 0 Cervical Vertebral Arteries: Patency: Bilateral Dominance: Slightly right Intracranial Circulation: No intracranial arterial stenosis, aneurysm, or other lesion is identified. An anterior communicating artery is present. The bilateral posterior communicating arteries are within normal limits. The intracranial internal carotid arteries and the proximal anterior, middle and posterior cerebral arteries appear normal. The left vertebral artery is slightly dominant. The intracranial vertebral arteries and the basilar artery appear normal. The visualized predominantly proximal segments of the bilateral PICAs, AICAs and SCAs appear normal. The visualized dural venous sinuses are patent. Lead Software Qa Engineer (topogram) images: No significant findings. CT Cervical spine 2024 report only: 1. Negative for fracture or subluxation. 2. Mild degenerative disc disease C5-6. Facet degenerative changes bilateral. No significant bony foraminal or canal stenosis. 3. Severe apical emphysema for age. FINDINGS: Normal alignment. No fracture or suspicious bone lesion. Mild disc spacer C5-6 with minor spurring. No calcification along the anterior disc. No definite disc protrusion although CT is relatively insensitive. No canal or foraminal stenosis. Mild facet DJD. Soft tissues unremarkable. No mass or adenopathy seen. No fluid collection or hematoma. Lower neck including larynx, thyroid unremarkable. Chest demonstrates severe emphysema. Pleural-based density most consistent with scarring incompletely visualized. MRI Brain w/wo IVOCN 01/06/2024: No acute brain findings. General volume and morphology of the brain is within expected limits for age. No mass effect or abnormal intracranial enhancement and no abnormal cranial nerve enhancement. 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 MRI TMJ 12/29/2023 report only: Left TMJ shows reduced translation possibly due to early degenerative changes of the left mandibular condyle. Disc shows no internal derangement. Right TMJ unremarkable excepting for some reduced translation which may be due to abnormal biomechanics of the opposite TMJ. ASSESSMENT/PLAN Cervicalgia (primary encounter diagnosis) Cervical spondylosis Raheem Cohn is a 49 year old male with chronic, Jaw, head, cheek, and neck pain. HX: anxiety, HTN MRI Cervical 05/19/2024:Mild degenerative changes in the cervical spine detailed by level in the body the report without high-grade canal stenosis. Having facial MRI on 05/26/2024 then has a follow up with ENT Dr. Hays . At previous appointment psychiatry consult was placed, he states that he talked to someone at [facility]. He was offered consultation to the chronic pain and rehabilitation program, he declined at this time. He is encouraged to attend scheduled appointments with general neurology and ENT along with his pain management provider. Medications indicated for use reviewed, no changes made to current regimen. He reports that pain management currently manages medications. Plan of care, red flag signs, and when to seek emergent treatment reviewed. 1. Imaging: None 2. Physical Therapy: Continue 3. Medication:No changes 4. Referrals: None 5. Considerations: Cervical MBB, CPRP 6. Follow up: PRN I spent a total of 20 minutes on the date of the service which included preparing to see the patient, [id number] patient care, completing clinical documentation, obtaining and/or reviewing separately obtained history, counseling and educating the patient/family/caregiver, and communicating results to the patient/family/caregiver . Imaging Ordered: None SIGNATURE: Gabe Marin APRN.CNP PATIENT NAME: Raheem Cohn DATE:May 22, 2024 TIME: 3:59 PM documented in this encounter [facility] 05-22-2024 Note HNO ID: [id number] Author: GABE MARIN APRN.CNP Service: ? Author Type: Nurse Practitioner Type: Progress Notes Filed: 05/22/2024 16:22 Note Text: Spine Care Path Neck Pain - Chronic (> 12 weeks) Follow Up Exam SUBJECTIVE HISTORY OF PRESENT ILLNESS: Raheem Cohn is a 49 year old male who presents with a chief complaint of neck pain and is seen in consultation requested by Brandy Erickson PA-C for an opinion regarding neck pain. My final recommendations will be communicated back to the requesting physician by way of shared medical record or letter via US mail. Patient presents with neck pain for 14 months. He believes symptoms started after having some kind of infection while working in [place]. He states that he became ill in [place] and when he returned to [place] he was diagnosed with an infection . He states that since this time he has experienced jaw pain, difficulty swallowing, neck pain, and swelling of his neck. He reports that jaw pain and difficulty swallowing is his main concern. He has been evaluated by primary care, ENT, neurosurgery, infectious disease, and pain management in regards to pain and difficulty swallowing. He is also under the evaluation of orthopedic surgery in regards to left shoulder pain. He states at time of appointment that he feels that all his symptoms are connected. 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 Distribution of symptoms are unchanged. Pain localized to under his jaw up to his nose, occipital region, bilateral neck, Pain described as aching, stabbing Radiation:t/o head Numbness/Tingling: Denies He denies loss of bowel or bladder control, denies dexterity difficulties, denies imbalance. Pain rated 7-9/10 Pain worse with trying to swallow, panicking, Pain improved with tens unit, air cast , heat, holding his head, keeping perfectly straight posture. Interventions: Tens unit, medication , air cast Medications:Gabapentin, Clonazepam, Pamelor, Seroquel, Thorazine, Prilosec, Lamisil, Past medications: tramadol, Physical Therapy: 01/28/2024 - 1 visit for TMJ - stopped due to pain. Treating Physicians: Dr. Germain -PCP Brandy BRISENO - Orthopaedics - Referring Provider Kay BRISENO - Spine/Neurosurgery - 03/17/2024 Dr Aquino - Infectious Diseases Lyn BRISENO - Ent-Otolaryngology Dr Garcia - Neurology Dr. Garcia - Pain management History of Spine Injections/Surgery: None for spine 05/15/2024 Left shoulder injection w/ orthopaedic surgery 03/24/24 Bilateral TMJ nerve block injection with 50% relief w/ Dr. Blankenship Other Issues Addressed at the Visit Today: None. Precipitating Event: None PAIN EVALUATION 05/19/20241943 Pain Level: 7 Pain Location: Cheek Description: Burning;Crushing;Incision;Pressu re Ulcer/Injury;Raw;Shooting;Stabbi ng;Stiffness;Tightness Duration Amount of Time: 2 Duration Units: Years Frequency: Continuous Intervention/Comfort measure: Medication;Distractions;Heat;Spl inting;Therapeutic techniques-CPRP Comments: Deviated septum out of control Litigation: No Workers' Compensation: No YELLOW AND BLUE FLAGS YES-Neg Attitude; Back Pain is Disabling YES-Avoiding Activity (for Fear of Pain) YES-Depression or Anxiety Disorders No-Social Problems No-Substance Use Disorder No-Job Dissatisfaction No-Financial Disincentives Patient Entered Questionnaires 03/13/2024 Spine Questions Pain Location: Other Pain Duration: 1 to 5 years Pain over last 6 months: Every day or nearly every day in the past 6 months Symptoms from neck/cervical spine: Yes Employment Status: Other Off work 1 month or more due to back/neck pain: Yes Applied for/receive disability/WC due to low back/neck pain Does not apply Involved in law suit/legal claim: No 03/13/2024 Spine Red Flags Any type of cancer: No Unexplained fever: No Bowel or bladder disfunction: No Unintentional weight loss: No Osteoporosis: No 03/13/2024 Neck Questionnaires Benzel Modified KOBE Score Incomplete PROMIS Score Percentiles 01/28/2024 03/13/2024 Physical Health Physical Function Percentile 0 2 Sleep Percentile 14 Fatigue Percentile 1 Pain Interference Percentile 0 03/13/2024 PROMIS SOCIAL ROLE SCORE Social Role Satisfaction Percentile 2 12/08/2023 03/13/2024 PROMIS Global Health Scale Physical Health Percentile 1 2 Mental Health Percentile 2 2 Percentiles provide an indication of how the patient's score ranks in relation to the general population. Higher percentile rankings indicate better function/quality of life. 50th percentile is the average of the general population and indicates half of respondents had a worse score. Depression Sc (more content not included)... [facility] 05-19-2024 History of Present illness Narrative Radiology Service Progress Note PATIENT NAME: Raheem Cohn DATE OF SERVICE: May 19, 2024 TIME: 6:51 PM PATIENT IDENTITY VERIFICATION COMPLETED USING TWO (2) IDENTIFIERS: Name and Date of confirmed by patient verbally and Name and Date of confirmed by identification band. FALL SCREENING: Has the patient had 2 falls in the last year or 1 fall with injury or currently using an Ambulatory Assistive Device (Walker, Cane, Wheelchair, Crutches, etc.)? No PATIENT GENDER DATA: Assigned male at PATIENT RELEVANT IMPLANT DATA REVIEWED: Yes PATIENT PRESENTS WITH AN IMPLANTABLE OR ATTACHED CLOTH WASHER: No RADIOLOGY DEPARTMENT: MR; Exam(s) Completed: Spine: Cervical spine PERIPHERAL IV DATA: Not applicable SIGNED BY: RT Porifrio(Buck) May 19, 2024 6:51 PM documented in this encounter [facility] 05-19-2024 Note HNO ID: [id number] Author: HEBER GARCIA RT(R) Service: Radiology Author Type: Technologist Type: Progress Notes Filed: 05/19/2024 18:52 Note Text: Radiology Service Progress Note PATIENT NAME: Raheem Cohn DATE OF SERVICE: May 19, 2024 TIME: 6:51 PM PATIENT IDENTITY VERIFICATION COMPLETED USING TWO (2) IDENTIFIERS: Name and Date of confirmed by patient verbally and Name and Date of confirmed by identification band. FALL SCREENING: Has the patient had 2 falls in the last year or 1 fall with injury or currently using an Ambulatory Assistive Device (Walker, Cane, Wheelchair, Crutches, etc.)? No PATIENT GENDER DATA: Assigned male at PATIENT RELEVANT IMPLANT DATA REVIEWED: Yes PATIENT PRESENTS WITH AN IMPLANTABLE OR ATTACHED CLOTH WASHER: No RADIOLOGY DEPARTMENT: MR; Exam(s) Completed: Spine: Cervical spine PERIPHERAL IV DATA: Not applicable SIGNED BY: RT Porfirio(Buck) May 19, 2024 6:51 PM [facility] 05-15-2024 Note HNO ID: [id number] Author: BRANDY ERICKSON PA-C Service: ? Author Type: Physician Floor Worker Type: Progress Notes Filed: 05/15/2024 15:03 Note Text: DEPARTMENT OF ORTHOPAEDICS SUBJECTIVE Pt presents today for left shoulder tendonitis, discussed CSI and patient wishes to be a candidate. Denies any complication from previous injections. OBJECTIVE Large Joint Arthro/Inj: L subacromial bursa 05/15/2024 3:03 PM The procedure site was prepped in the usual sterile fashion. Site: L subacromial bursa Medications: 80 mg triamcinolone acetonide 40 mg/mL Anesthetics: 8 mL lidocaine (PF) 10 mg/mL (1 %) Outcome: Tolerated well, no immediate complications Post-injection instructions were reviewed with the patient and the patient voiced understanding of these instructions. Informed Consent Consent Obtained: Verbal [place] Protocol A moment to CARE was completed. SIGN IN Personnel directly involved with the procedure wore the appropriate PPE. Special Equipment: N/A Patient/Surrogate Stated/Verified: Patient name, Date of , Relevant allergies and Intended procedure TIME OUT Relevant labs, photos, and/or imaging studies have been reviewed. Consent documented and matches the intended procedure. Correct side/site marked and visible. Medications required for procedure verified. No fire risk assessment and interventions applicable. No implant(s) inserted. SIGN OUT No specimen collected. ASSESSMENT Left shoulder tendonitis (primary encounter diagnosis) Acute pain of left shoulder PLAN Follow up as needed Brandy Erickson PA-C [facility] 05-15-2024 History of Present illness Narrative Associated Order(s): Large Joint Arthro/Inj: L subacromial bursa Post-Procedure Diagnose(s): Acute pain of left shoulder; Left shoulder tendonitis Images from the original note were not included. DEPARTMENT OF ORTHOPAEDICS SUBJECTIVE Pt presents today for left shoulder tendonitis, discussed CSI and patient wishes to be a candidate. Denies any complication from previous injections. OBJECTIVE Large Joint Arthro/Inj: L subacromial bursa 05/15/2024 3:03 PM The procedure site was prepped in the usual sterile fashion. Site: L subacromial bursa Medications: 80 mg triamcinolone acetonide 40 mg/mL Anesthetics: 8 mL lidocaine (PF) 10 mg/mL (1 %) Outcome: Tolerated well, no immediate complications Post-injection instructions were reviewed with the patient and the patient voiced understanding of these instructions. Informed Consent Consent Obtained: Verbal [place] Protocol A moment to CARE was completed. SIGN IN Personnel directly involved with the procedure wore the appropriate PPE. Special Equipment: N/A Patient/Surrogate Stated/Verified: Patient name, Date of , Relevant allergies and Intended procedure TIME OUT Relevant labs, photos, and/or imaging studies have been reviewed. Consent documented and matches the intended procedure. Correct side/site marked and visible. Medications required for procedure verified. No fire risk assessment and interventions applicable. No implant(s) inserted. SIGN OUT No specimen collected. ASSESSMENT Left shoulder tendonitis (primary encounter diagnosis) Acute pain of left shoulder PLAN Follow up as needed Brandy Erickson PA-C documented in this encounter [facility] 05-05-2024 Miscellaneous Notes Refill request, contract signed. documented in this encounter [facility] 05-05-2024 Telephone encounter Note Refill request, contract signed. [facility] 05-03-2024 History of Present illness Narrative Images from the original note were not included. [facility] [address] [place] [address] [place] [id number] SUBJECTIVE: Patient ID ([id number]): Raheem Cohn is a 49 y.o. male presents today for Chief Complaint Patient presents with Biopsy Biopsy in office - black hairy tongue HPI: Raheem is seen in follow up today for biopsy of tongue. Patient was last seen on 03/15/2024. He has a black hairy tongue, which was observed at previous appointment. He present for biopsy of black hairy tongue. Tongue discoloration has improved for patient. He has not smoked a cigarette since last visit. Patient again reports pain with swallowing and difficulty swallowing. He continues to admit to dry mouth. He tries to stay hydrated. His holds his throat while swallowing, because otherwise he reports a sharp pain under his nose. He finds mild relief when swallowing while drinking water. He reports constant dehydration, despite drinking sufficient water and taking vitamins. Already saw rheumatology. Patient has an upcoming appointment to discuss septorhinoplasty with [facility] for nasal congestion/difficulty breathing through his nose. Patient states that he has a vitamin B-12 deficiency per his urologist. Patient is currently taking Vitamin B-complex. Patient has obtained dentures, as discussed previously. He has had these for about 5 weeks. Patient has concerns that his jaw is broken from previous dental extractions. Patient continues to complain of hearing loss and tinnitus described as He hears a static noise intermittently. He continues to complain of ear pain and pressure. Patient continues to state his tissues are falling apart with in his face, pain from his nose along the roof of his mouth towards the back base, clicking and cracking with in his jaw and head, a black foreign object fell out from the back of his throat. HISTORY: Past Medical History: Diagnosis Date Acid reflux Anxiety Breathlessness lying flat Carpal tunnel syndrome Edentulous Hx of hepatitis C has been treated Jaw pain Murmur, cardiac as a child Neck pain Wears dentures Past Surgical History: Procedure Laterality Date HAND SURGERY INJECTION BURSA INTERMEDIATE Bilat TMJ Bilateral 03/24/2024 Performed by Laurence Blankenship MD at [facility] MANDIBLE SURGERY TOOTH EXTRACTION WRIST SURGERY Family History Problem Relation Age of Onset Diabetes Maternal Grandmother Social History Socioeconomic History Marital status: Single Spouse name: Not on file Number of children: Not on file Years of education: Not on file Highest education level: Not on file Occupational History Not on file Tobacco Use Smoking status: Former Current packs/day: 0.00 Types: Cigarettes Quit date: 02/16/1994 Years since quittin.2 Smokeless tobacco: Former Vaping Use Vaping status: Former Substance and Sexual Activity Alcohol use: Not Currently Drug use: Not Currently Types: Methamphetamines Sexual activity: Defer Other Topics Concern Not on file Social History Narrative Not on file Social Drivers of Health Financial Resource Strain: High Risk (03/05/2024) [facility] Overall Financial Resource Strain (CARDIA) Difficulty of Paying Living Expenses: Very hard Food Insecurity: No Food Insecurity (05/08/2024) Hunger Screening Food Insecurity - Worry: Never True Food Insecurity - Inability: Never True Recent Concern: Food Insecurity - Food Insecurity Present (02/14/2024) Hunger Screening Food Insecurity - Worry: Sometimes True Food Insecurity - Inability: Sometimes True Transportation Needs: No Transportation Needs (03/05/2024) Received from [facility] PRAPARE - Transportation Lack of Transportation (Medical): No Lack of Transportation (Non-Medical): No Recent Concern: Transportation Needs - Unmet Transportation Needs (02/14/2024) PRAPARE - Transportation Lack of Transportation (Medical): No Lack of Transportation (Non-Medical): Yes Physical Activity: Insufficiently Active (03/05/2024) Received from [facility] Exercise Vital Sign Days of Exercise per Week: 3 days Minutes of Exercise per Session: 20 min Stress: Stress Concern Present (03/05/2024) Received from [facility] [place] [facility] Occupational [facility] - Occupational Stress Questionnaire Feeling of Stress : Very much Social Connections: Moderately Isolated (03/05/2024) Received from [facility] Social Connection and Isolation Panel [NHANES] Frequency of Communication with Friends and Family: Never Frequency of Social Gatherings with Friends and Family: Never Attends Quaker Services: 1 to 4 times per year Active Member of Clubs or Organizations: No Attends Club or Organization Meetings: More than 4 times per year Marital Status: Never Interpersonal Safety: Not At Risk (03/05/2024) Received from [facility] Humiliation, Afraid, Rape, and Kick questionnaire Fear of Current or Ex-Partner: No Emotionally Abused: No Physically Abused: No Sexually Abused: No Housing Instability: High Risk (03/05/2024) Received from [facility] Housing Stability Vital Sign Unable to Pay for Housing in the Last Year: No Number of Times Moved in the Last Year: 0 Homeless in the Last Year: Yes Allergies Allergen Reactions Penicillins Anaphylaxis and Cough Anaphylaxis was listed per [facility]. Current Outpatient Medications Medication Sig Dispense Refill B complex-vitamin C-folic acid (NEPHROCAP) 1 mg capsule Take 1 capsule by mouth in the morning. gabapentin (NEURONTIN) 600 mg tablet Take 1 tablet (600 mg total) by mouth 3 (three) times a day. 90 tablet 1 vitamin A 8000 UNIT capsule Take 1 capsule (8,000 Units total) by mouth in the morning. zinc gluconate 50 mg tablet Take 1 tablet (50 mg total) by mouth in the morning. B complex-vitamin C-folic acid (NEPHROCAP) 1 mg capsule Take 1 capsule by mouth in the morning. clonazePAM (KlonoPIN) 1 mg tablet Take 1 tablet (1 mg total) by mouth 2 (two) times a day as needed for anxiety. 60 tablet 0 ketoconazole (NIZORAL) 2 % shampoo Apply 1 Application topically 2 (two) times a week. Apply to damp skin, lather, leave on 5 minutes, and rinse 120 mL 0 omeprazole (PriLOSEC) 40 mg capsule Take 1 capsule (40 mg total) by mouth in the morning. varenicline (CHANTIX) 1 mg tablet Take 1 tablet (1 mg total) by mouth in the morning and 1 tablet (1 mg total) before bedtime. Take with full glass of water.. No current facility-administered medications for this visit. REVIEW OF SYSTEMS: Review of Systems Constitutional: Negative for chills and fever. HENT: Positive for dental problem, ear pain (pain and pressure), facial swelling, mouth sores, postnasal drip, rhinorrhea (only when bending over), sinus pressure, sinus pain, sore throat and trouble swallowing. Negative for congestion. Respiratory: Negative for cough and shortness of breath. Gastrointestinal: Positive for vomiting. Negative for nausea. Neurological: Positive for dizziness and light-headedness. Negative for headaches. Hematological: Bruises/bleeds easily. Psychiatric/Behavioral: Negative for sleep disturbance (in laying on back). Data Reviewed: Clinic ENT note from 03/29/2024 and 04/21/2024 PHYSICAL EXAMINATION: Temp 37.1 C (98.8 F) (Temporal) Ht 177.8 cm (5' 10 ) Wt 88.7 kg (195 lb 9.6 oz) BMI 28.07 kg/m Constitutional: Healthy, alert, cooperative, and in no distress and normal ablility to communicate . Voice normal quality. Head/Face: Normocephalic, without obvious abnormality, salivary glands normal, atraumatic, sinuses nontender, and facial nerve intact Eyes: No gross abnormalities., EOMI, no nystagmus, and no lid ptosis Ear: RIGHT: hearing normal, external ear normal, canal normal, and TM normal without fluid or infection LEFT: hearing normal, external ear normal, canal normal, and TM normal without fluid or infection Nose: septum midline, normal mucosa, normal turbinates, no nasal polyps or masses, and deviated nasal septum to the left Oral: normal teeth, normal lips, normal gums, normal hard palate, normal anterior tongue, oral mucosa moist, edentulous, and dentures removed for exam Oropharynx: normal-appearing mucosa, no pharyngitis, no exudate, and normal soft palate and uvula TMJ: no pain, crepitus, or trismus Neck:normal, supple, no adenopathy, thyroid normal in size, no nodules or tenderness, no neck masses palpable, and carotids normal Respiration: No stridor, Normal respiratory effort. Heart: Regular rate Neurologic: Grossly normal Alert Oriented X 3 Affect normal Cranial nerves 2 -12 grossly intact ASSESSMENT/PLAN: Raheem was seen today for biopsy. Diagnoses and all orders for this visit: Black hairy tongue Dysphagia, unspecified type Asymmetrical hearing loss DNS (deviated nasal septum) Plan: - Patient with black hairy tongue improved significantly from previous visit. He has not smoked since last visit. Biopsy not needed at this time. Continue with oral hygiene. Patient to continue with smoking cessation. - Patient has an appointment to discuss septorhinoplasty with [facility] for his left deviated nasal septum. - Per patient, Patient with vitamin B-12 deficiency per his urologist. Patient to discuss this with urologist/PCP. Continue his Vit B complex at this time. - Patient to discuss his jaw muscle pain with dentist regarding potential TMJ versus proper denture fit versus other dental concern. He just had them readjusted yesterday. - Patient with dysphagia. Flexible laryngoscopy in the past was WNLs. Swallow studies were WNLs. He has had multiple imaging. [facility] ENT physicians has also evaluated him with similar conclusion. - In regards to his asymmetrical hearing loss and tinnitus, we had already obtained a previous audiogram and MRI brain IAC's for workup, negative for retrocochlear pathology. - Return as needed. Scribe Statement: Scribed for and in the presence of Fran-Sarahijevon Wilson DO by Eva Jones (scribe). Eva Jones 05/03/2024 11:29 AM Provider Statement: I Duran Wilson DO personally performed the services described in the documentation as described by the above named scribe in my presence. It is both accurate and complete at the time of final signature. Dr. Duran Wilson 05/03/2024 7:51 AM Counseling: The following elements of medical decision making were considered during this visit: Reviewed and summarized previous records. The patient was counseled regarding prognosis, risks and benefits of treatment options, impressions, importance of compliance with treatment and risk factor reductions. The patient verbalized understanding and agreement to the plan. Please note that parts of this chart were generated using voice recognition [employer] dictation software. Although every effort was made to ensure the accuracy of this automated regional sales trainer, some errors in regional sales trainer may have occurred. documented in this encounter [facility] 05-03-2024 Instructions Duran Wilson DO - 05/03/2024 11:15 AM EST - Patient with black hairy tongue improved significantly from previous visit. He has not smoked since last visit. Biopsy not needed at this time. Continue with oral hygiene. Patient to continue with smoking cessation. - Patient has an appointment to discuss septorhinoplasty with [facility] for his left deviated nasal septum. - Per patient, Patient with vitamin B-12 deficiency per his urologist. Patient to discuss this with urologist/PCP. Continue his Vit B complex at this time. - Patient to discuss his jaw muscle pain with dentist regarding potential TMJ versus proper denture fit versus other dental concern. He just had them readjusted yesterday. - Patient with dysphagia. Flexible laryngoscopy in the past was WNLs. Swallow studies were WNLs. He has had multiple imaging. [facility] ENT physicians has also evaluated him with similar conclusion. - In regards to his hearing and tinnitus, we had already obtained a previous audiogram and MRI brain IAC's for workup - Return as needed. documented in this encounter [facility] 05-01-2024 History of Present illness Narrative Subjective Patient ID: Raheem Cohn Jr. is a 49 y.o. male. Comes in with 2 concerns which are directly related. His trouble continues to stem from issues with his facial pain, swallowing, dentures, etc.. He has seen multiple physicians without a specific diagnosis. Infectious disease evaluated him and recommended no more antibiotic or antifungal treatments at this time. He has ENT follow-up upcoming in his going to have a biopsy on his tongue. He is going to have additional spinal imaging through the spine clinic at the [facility] and he will be seeing another maxillofacial surgeon in [place] in early May. He remains on gabapentin which may or may not be helping him. All of this creates significant anxiety for him and Klonopin twice daily does seem to help that. He has not had any irregular use of the Klonopin. No request for dose escalation. He was going to have a facial MRI but that was denied through his insurance company. He has had multiple other diagnostic imaging which has not demonstrated a significant abnormality resulting in a definitive diagnosis or management plan. He is wearing a new set of dentures which he does not think fit any better than his previous set but he is trying to get used to them. The following portions of the patient's history were reviewed and updated as appropriate: allergies, current medications, past medical history, past social history, past surgical history, and problem list. Review of Systems Objective Physical Exam Constitutional: Comments: He is a little bit anxious but interacts appropriately. Blood pressure measured above target today. He has not had any significant recent weight loss. No other physical exam done today. Assessment/Plan Upcoming specialty follow-up reviewed. Klonopin usage reviewed and remains beneficial for him. Will again order the facial MRI. Diagnoses and all orders for this visit: Facial pain - MR face with and without contrast; Future Anxiety Seborrhea capitis - ketoconazole (NIZORAL) 2 % shampoo; Apply 1 Application topically 2 (two) times a week. Apply to damp skin, lather, leave on 5 minutes, and rinse [facility] Note HNO ID: [id number] Author: LAURENCE COX RT(Buck) Service: ? Author Type: Technologist Type: Progress Notes Filed: 04/26/2024 12:53 Note Text: Radiology Service Progress Note PATIENT NAME: Raheem Cohn DATE OF SERVICE: April 26, 2024 TIME: 12:52 PM PATIENT IDENTITY VERIFICATION COMPLETED USING TWO (2) IDENTIFIERS: Name and Date of confirmed by patient verbally. FALL SCREENING: Has the patient had 2 falls in the last year or 1 fall with injury or currently using an Ambulatory Assistive Device (Walker, Cane, Wheelchair, Crutches, etc.)? No PATIENT GENDER DATA: Assigned male at PATIENT RELEVANT IMPLANT DATA REVIEWED: Yes PATIENT PRESENTS WITH AN IMPLANTABLE OR ATTACHED CLOTH WASHER: No RADIOLOGY DEPARTMENT: MR; Exam(s) Completed: Upper MSK: Shoulder, left PERIPHERAL IV DATA: Not applicable SIGNED BY: RT René(R) April 26, 2024 12:52 PM [facility] 04-26-2024 History of Present illness Narrative Radiology Service Progress Note PATIENT NAME: Raheem Cohn DATE OF SERVICE: April 26, 2024 TIME: 12:52 PM PATIENT IDENTITY VERIFICATION COMPLETED USING TWO (2) IDENTIFIERS: Name and Date of confirmed by patient verbally. FALL SCREENING: Has the patient had 2 falls in the last year or 1 fall with injury or currently using an Ambulatory Assistive Device (Walker, Cane, Wheelchair, Crutches, etc.)? No PATIENT GENDER DATA: Assigned male at PATIENT RELEVANT IMPLANT DATA REVIEWED: Yes PATIENT PRESENTS WITH AN IMPLANTABLE OR ATTACHED CLOTH WASHER: No RADIOLOGY DEPARTMENT: MR; Exam(s) Completed: Upper MSK: Shoulder, left PERIPHERAL IV DATA: Not applicable SIGNED BY: RT René(R) April 26, 2024 12:52 PM documented in this encounter [facility] 04-26-2024 Telephone encounter Note Neuro SPINE CARE COORDINATION QUICK NOTE Attempted to contact patient, left VM to call the office back. Phone number provided. Also sent mychart message [facility] 04-26-2024 Miscellaneous Notes Neuro SPINE CARE COORDINATION QUICK NOTE Attempted to contact patient, left VM to call the office back. Phone number provided. Also sent mychart message Raheem Cohn is calling Gabe Marin APRN.CNP today to ask if there is anything that can be done to help with his swallowing issues. He feels it is related to his neck issues. He has to use extreme effort to swallow. No chief complaint on file. Patient has been identified by name and birthdate. Duration of symptoms: 10 months Person calling: self Call patient at: at home [phone] (home) Was an appointment scheduled: Yes: Date/Time: [id number] Closing statement: Symptom Call: Thank you for calling [facility], your call is very important. A nurse will call in approximately 2-4 hours during business hours. If this is an emergency, please contact 911. Senia Gray documented in this encounter [facility] 04-25-2024 Telephone encounter Note Raheem Cohn is calling Gabe Marin APRN.CNP today to ask if there is anything that can be done to help with his swallowing issues. He feels it is related to his neck issues. He has to use extreme effort to swallow. No chief complaint on file. Patient has been identified by name and birthdate. Duration of symptoms: 10 months Person calling: self Call patient at: at home [phone] (home) Was an appointment scheduled: Yes: Date/Time: [id number] Closing statement: Symptom Call: Thank you for calling [facility], your call is very important. A nurse will call in approximately 2-4 hours during business hours. If this is an emergency, please contact 911. Senia Gray [facility] 04-25-2024 Telephone encounter Note Neuro SPINE CARE COORDINATION QUICK NOTE PT order faxed to [facility] 04-25-2024 Miscellaneous Notes Neuro SPINE CARE COORDINATION QUICK NOTE PT order faxed to [facility] Cleopatra at [facility] is calling Gabe Marin APRN.CNP today requesting PT orders to be faxed to their office. Cleopatra states Raheem is already scheduled, they just need the order. F: [phone] P: [phone] Patient has been identified by name and birthdate. Duration of symptoms: N/A Person calling: Cleopatra Call patient at: at home [phone] (home) Was an appointment scheduled: No Closing statement: Results or non-symptom based questions: Thank you for calling [facility], your call will be returned within the next business day. Kristal Warren documented in this encounter [facility] 04-25-2024 Telephone encounter Note Cleopatra at [facility] is calling Gabe Marin APRN.CNP today requesting PT orders to be faxed to their office. Cleopatra states Raheem is already scheduled, they just need the order. F: [phone] P: [phone] Patient has been identified by name and birthdate. Duration of symptoms: N/A Person calling: Cleopatra Call patient at: at home [phone] (home) Was an appointment scheduled: No Closing statement: Results or non-symptom based questions: Thank you for calling [facility], your call will be returned within the next business day. Kristal Warren [facility] 04-24-2024 Note HNO ID: [id number] Author: MARIA INES CANCHOLA RT(R) Service: ? Author Type: Technologist Type: Progress Notes Filed: 04/24/2024 14:31 Note Text: Radiology Service Progress Note PATIENT NAME: Raheem Cohn DATE OF SERVICE: April 24, 2024 TIME: 2:31 PM PATIENT IDENTITY VERIFICATION COMPLETED USING TWO (2) IDENTIFIERS: Name and Date of confirmed by patient verbally. FALL SCREENING: Has the patient had 2 falls in the last year or 1 fall with injury or currently using an Ambulatory Assistive Device (Walker, Cane, Wheelchair, Crutches, etc.)? No PATIENT GENDER DATA: Assigned male at PATIENT RELEVANT IMPLANT DATA REVIEWED: Not Applicable PATIENT PRESENTS WITH AN IMPLANTABLE OR ATTACHED CLOTH WASHER: No RADIOLOGY DEPARTMENT: General X-ray: Exam(s) Completed: Spine X-Ray(s): Cervical AP / LAT / OBL PERIPHERAL IV DATA: Not applicable SIGNED BY: RT Rick(R) April 24, 2024 2:31 PM [facility] 04-24-2024 History of Present illness Narrative Radiology Service Progress Note PATIENT NAME: Raheem Cohn DATE OF SERVICE: April 24, 2024 TIME: 2:31 PM PATIENT IDENTITY VERIFICATION COMPLETED USING TWO (2) IDENTIFIERS: Name and Date of confirmed by patient verbally. FALL SCREENING: Has the patient had 2 falls in the last year or 1 fall with injury or currently using an Ambulatory Assistive Device (Walker, Cane, Wheelchair, Crutches, etc.)? No PATIENT GENDER DATA: Assigned male at PATIENT RELEVANT IMPLANT DATA REVIEWED: Not Applicable PATIENT PRESENTS WITH AN IMPLANTABLE OR ATTACHED CLOTH WASHER: No RADIOLOGY DEPARTMENT: General X-ray: Exam(s) Completed: Spine X-Ray(s): Cervical AP / LAT / OBL PERIPHERAL IV DATA: Not applicable SIGNED BY: RT Rick(R) April 24, 2024 2:31 PM documented in this encounter [facility] 04-24-2024 Instructions Gabe Marin [facility] - 04/24/2024 2:15 PM EST Images from the original note were not included. Chronic Neck Pain Overview: Neck pain is common. Approximately three out of four [place] adults will experience an episode of neck pain. Neck pain is also common after motor vehicle accidents ( whiplash ). The exact cause of neck pain is often not identified but most people recover with simple treatment in several weeks. Neck pain lasting longer than 12 weeks is called chronic . Serious causes of neck pain (cancer, fracture, infection) are rare and can be detected by a careful examination. Common causes of chronic neck pain, particularly arthritis, can be confirmed by x-rays. MRI or CT are not recommended in most people with neck pain unless significant trauma has occurred or when examination suggests the possibility of cancer or infection. An MRI or CT may be recommended if compression of the spinal cord is suspected based on the examination. Many times a specific structural explanation for the pain is not found but medical treatment can successfully improve symptoms and allow return to normal activities. In the absence of major structural deformity, surgery is unlikely to be helpful in relieving neck pain. Treatment: Neck pain without severe trauma is almost always successfully treated with conservative (non-surgical) measures. Frequent or constant use of a cervical collar is not recommended for most persons. Over the counter, non-prescription pain relievers such as acetaminophen (Tylenol) or medications such as ibuprofen or naproxen are recommended. Opioid or narcotic medications are not recommended for terminologist use. Other medications, particularly antidepressants, may be prescribed for pain relief, even in the absence of depression. Physical therapy is recommended and should include an active exercise program. Remaining as active as possible and resuming normal activities as soon as tolerated is best. Acupuncture or massage is helpful for some patients with chronic neck pain. Spinal epidural injections are not recommended for treatment of neck pain. Injection of spinal joints (facets) is rarely recommended treatment of arthritic neck pain. Follow Up See your health care provider if: You experience fever The pain progressively worsens The pain moves from your neck into your arm You notice difficulty using your hands (buttoning, picking up coins) You notice weakness in your arms or legs You experience problems with balance or walking You notice difficulty passing urine or controlling your bowels These are warning signs or red flags that require prompt, urgent medical attention. SIGNATURE: Gabe Marin APRN.CNP PATIENT NAME: Raheem Cohn DATE: April 24, 2024 TIME: 2:15 PM documented in this encounter [facility] 04-24-2024 History of Present illness Narrative Images from the original note were not included. Spine Care Path Neck Pain - Chronic (> 12 weeks) Initial Exam SUBJECTIVE HISTORY OF PRESENT ILLNESS: Raheem Cohn is a 49 year old male who presents with a chief complaint of neck pain and is seen in consultation requested by Brandy Erickson PA-C for an opinion regarding neck pain. My final recommendations will be communicated back to the requesting physician by way of shared medical record or letter via US mail. Patient presents with neck pain for 14 months. He believes symptoms started after having some kind of infection while working in [place]. He states that he became ill in [place] and when he returned to [place] he was diagnosed with an infection . He states that since this time he has experienced jaw pain, difficulty swallowing, neck pain, and swelling of his neck. He reports that jaw pain and difficulty swallowing is his main concern. He has been evaluated by primary care, ENT, neurosurgery, infectious disease, and pain management in regards to pain and difficulty swallowing. He is also under the evaluation of orthopedic surgery in regards to left shoulder pain. He states at time of appointment that he feels that all his symptoms are connected. 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 Pain rated 9/10 Pain worse with trying to swallow, panicking, Pain improved with tens unit, air cast , heat, holding his head, keeping perfectly straight posture. Interventions: Tens unit, medication , air cast Medications:Gabapentin, Clonazepam, Pamelor, Seroquel, Thorazine, Prilosec, Lamisil, Past medications: tramadol, Physical Therapy: 01/28/2024 - 1 visit for TMJ - stopped due to pain. Treating Physicians: Dr. Germain -PCP Brandy BRISENO - Orthopaedics - Referring Provider Kay BRISENO - Spine/Neurosurgery - 03/17/2024 Dr Aquino - Infectious Diseases Lyn BRISENO - Ent-Otolaryngology Dr Garcia - Neurology Dr. Garcia - Pain management History of Spine Injections/Surgery: None for spine 03/24/24 Bilateral TMJ nerve block injection with 50% relief w/ Dr. Blankenship Other Issues Addressed at the Visit Today: None. Precipitating Event: None PAIN EVALUATION 04/22/2024 1512 04/24/2024 1344 Pain Level: 4 9 Pain Location: Neck Neck Description: Cramping;Numbness;Pressure;Tight ness Aching;Stabbing Duration Amount of Time: 10 13 Duration Units: Months Months Frequency: Continuous Continuous Intervention/Comfort measure: Medication;Relaxation;Heat;Spina l Cord Stimulator -- Comments: Entire head and mid back -- Litigation: No Workers' Compensation: No YELLOW & BLUE FLAGS YES-Neg Attitude; Back Pain is Disabling YES-Avoiding Activity (for Fear of Pain) YES-Depression or Anxiety Disorders No-Social Problems No-Substance Use Disorder No-Job Dissatisfaction No-Financial Disincentives Patient Entered Questionnaires 03/13/2024 Spine Questions Pain Location: Other Pain Duration: 1 to 5 years Pain over last 6 months: Every day or nearly every day in the past 6 months Symptoms from neck/cervical spine: Yes Employment Status: Other Off work 1 month or more due to back/neck pain: Yes Applied for/receive disability/WC due to low back/neck pain Does not apply Involved in law suit/legal claim: No 03/13/2024 Spine Red Flags Any type of cancer: No Unexplained fever: No Bowel or bladder disfunction: No Unintentional weight loss: No Osteoporosis: No 03/13/2024 Neck Questionnaires Benzel Modified KOBE Score Incomplete PROMIS Score Percentiles 01/28/2024 03/13/2024 Physical Health Physical Function Percentile 0 2 Sleep Percentile 14 Fatigue Percentile 1 Pain Interference Percentile 0 03/13/2024 PROMIS SOCIAL ROLE SCORE Social Role Satisfaction Percentile 2 12/08/2023 03/13/2024 PROMIS Global Health Scale Physical Health Percentile 1 2 Mental Health Percentile 2 2 Percentiles provide an indication of how the patient's score ranks in relation to the general population. Higher percentile rankings indicate better function/quality of life. 50th percentile is the average of the general population and indicates half of respondents had a worse score. Depression Screenin01/17/2024 03/13/2024 03/31/2024 PHQ-9 Score 25 17 11 01/17/2024 03/13/2024 03/31/2024 PHQ-9 Self-harm Question Question 9 Nearly every day Not at all Not at all PHQ-9 Self-Harm (Item 9) response options: 0 Not at all 1 Several days 2 More than half the days 3 Nearly every day PHQ-9 Levels: 0-4 No - mild depression 5-9 Mild depression 10-14 Moderate depression 15-19 Moderately severe depression 20-27 Severe depression ACTIVE PROBLEM LIST Anxiety State, Unspecified Insomnia, Unspecified Amphetamine and Other Psychostimulant Dependence, Episodic (Hcc) Hepatitis C Lumbar Disc Herniation Lumbago Spondylolisthesis, Grade 1 Ddd (Degenerative Disc Disease), Lumbar Polysubstance Dependence Including Opioid Type Drug, Episodic Abuse (Hcc) Weight Loss Fatigue PAST MEDICAL HISTORY Diagnosis Date Amphetamine and other psychostimulant dependence, episodic (HCC) 06/03/2007 clean 09/11, again clean since 01/2013 Anxiety state, unspecified Carpal tunnel syndrome, bilateral Chronic back pain Heart murmur child Hepatitis C Insomnia, unspecified IVDU (intravenous drug user) in past, last in 2009 Verruca vulgaris right hand PAST SURGICAL HISTORY Procedure Laterality Date ANES DX/THER NERVE BLOCK/INJECTION PRONE POS 2013 CRYOSURGERY right hand wart PAST SURGICAL HISTORY OF 1992 right hand fracture Social History Tobacco Use Smoking status: Every Day Current packs/day: 0.30 Average packs/day: 0.3 packs/day for 16.0 years (4.8 ttl pk-yrs) Types: Cigarettes Smokeless tobacco: Current Tobacco comments: Pt basically does chew Substance Use Topics Alcohol use: No Drug use: Yes Types: Amphetamines Comment: recovering addict since 2006, was on Meth and IV drugs FAMILY HISTORY Problem Relation Age of Onset other (Unknown [Other]) Father other (Anxiety [Other]) Mother ALLERGIES Allergen Reactions Penicillins Anaphylaxis CURRENT MEDICATIONS: b complex, c, folic acid 1 mg renal vitamins (NEPHROCAPS) 1 mg capsule Take 1 capsule by mouth every morning. Ferrous Gluconate 240 mg (27 mg iron) tablet Take by mouth as directed. fluticasone (FLONASE) 50 mcg/actuation nasal spray Use in the nose. ketoconazole (NIZORAL) 2 % shampoo Apply 1 Application to affected area. niacin (NIACIN) 100 mg tablet Take by mouth as directed. Vitamin A 2,400 mcg capsule Take 8,000 Units by mouth. saliva stimulant comb. no.4 spry Use 2 Sprays as instructed every 4 hours as needed. clonazePAM (KLONOPIN) 0.5 mg tablet Take 1 mg by mouth. gabapentin (NEURONTIN) 300 mg capsule Take 600 mg by mouth three times a day. vit B complex no.12/niacin,B3, (VITAMIN B COMPLEX NO.12-NIACIN ORAL) Take by mouth. chlorproMAZINE (THORAZINE) 50 mg tablet Take 2 tablets by mouth one time only for 1 dose. Take 1 hour prior to MRI. terbinafine HCl (LAMISIL) 250 mg tablet Take 250 mg by mouth once daily. QUEtiapine (SEROQUEL) 100 mg tablet Take 200 mg by mouth daily at bedtime. nortriptyline (PAMELOR) 25 mg capsule Take 1 capsule by mouth two times a day. omeprazole (PRILOSEC) 40 mg capsule Take 40 mg by mouth once daily. REVIEW OF SYSTEMS: PAIN ASSESSMENT: See HPI. GENERAL: Denies fever, chills malaise and weight loss. HEENT: No recent change in vision or hearing. CARDIOVASCULAR: Hypertension RESPIRATORY: Denies SOB, sputum production, and hemoptysis. GI: Denies GI ulcers, inflammatory disease, or liver disease. : Denies change in frequency or urgency, kidney disease, and burning with urination. MUSCULOSKELETAL: Positive for See HPI SKIN: Denies rash or itching. PSYCHOLOGICAL: Depression and Anxiety NEURO: Denies CVA, seizures, headaches. ENDOCRINE: Denies diabetes, thyroid disease. HEMATOLOGY/LYMPHOLOGY: Denies cancer, bleeding or clotting disorders, anemia,and DVT's. ALLERGIC/IMMUNOLOGICAL: Denies risks for infection, or recent MRSA infections. OBJECTIVE: PHYSICAL EXAM Ht 177.8 cm (5' 10 ) Wt 88 kg (194 lb 0.1 oz) BMI 27.84 kg/m GENERAL APPEARANCE: Well appearing, well-hydrated, well nourished and alert SKIN: Head, neck, trunk, and extremities dry, intact and without lesions LUNGS: even and non-labored breathing, normal chest excursion NEURO/PSYCH: oriented to time, place, and person, speech normal, mental status intact, Mood: Anxious, Elevated, Irritable GAIT: normal, toe walking normal, heel walking normal, able to tandem gait POSTURE: Posture and spinal curves are normal PALPATION: no palpable masses, tenderness, or spasm, no palpable subluxation or step-off, no point tenderness over the spine MUSCULOSKELETAL: Extended Low Back & Leg Exam Lumbar Range of Motion Flexion Touches floor Extension Normal RIGHT LEFT Lateral Bending Full Full Oblique Extension Within Normal Limits Within Normal Limits DTRs Knee Normal Normal Medial Hamstring Normal Normal Strength of Lower Extremities Extensor Hallux Longus 5/5 5/5 Ankle Dorsiflexion 5/5 5/5 Ankle Plantarflexion 5/5 5/5 Knee Extension 5/5 5/5 Rakesh's Exam: Deferred @[email or web address]@ Cervical Range of Motion Flexion Normal Extension Normal RIGHT LEFT Rotation Full ROM with pain Full ROM with pain Lateral Bend Full ROM with pain Full ROM with pain Upper Body Reflex Exam RIGHT LEFT Reflex Status Reflex Status Biceps 2+ Normal 2+ Normal Triceps 2+ Normal 2+ Normal Brachioradialis 2+ Normal 2+ Normal Inverted Radial 2+ Normal 2+ Normal Pham's Sign absent absent Upper Extremity Strength RIGHT LEFT Strength (MMT) Strength (MMT) Shoulder Abduction 5/5 5/5 Biceps 5/5 5/5 Triceps 5/5 5/5 Resisted Suppination 5/5 5/5 Wrist Extension 5/5 5/5 Interossei 5/5 5/5 Shoulder Range of Motion RIGHT LEFT Flexion Normal Normal - with pain Extension Normal Normal - with pain Abduction Normal Normal - with pain Adduction Normal Normal - with pain Internal Rotation Normal Normal - with pain External Rotation Normal Normal- with pain Shoulder Tests Neer Impingement Sign - Positive - left Empty Can Test - Positive - Left Hawkin's-Torsten Test - Positive- left Speed's Test - Negative NEUROSENSORY: Soft touch; Within Normal Limits Lhermitte's test: Negative Spurling test: Negative Tinel's test: Negative Phalen's test: Negative Neuro Tests: None Data Review: [facility] records independently reviewed Images independently reviewed with the patient Outside records independently reviewed, no imaging available CTA Neck and Head 03/29/2024: No evidence of hemodynamically significant stenosis, intraluminal filling defect, abrupt vessel occlusion, aneurysm or vascular malformation in the intracranial and extracranial arterial vasculature. Arterial blood flow was measured to detect acute large vessel occlusion by computer aided detection software: Not Performed. Concordance between software and imaging review: Not Applicable. BRAIN: Evaluation of the individual slices of the CTA demonstrates no evidence of an acute stroke. ASPECT Score = 10 Hemorrhage: No clear evidence of acute intracranial hemorrhage within the constraints of this contrast enhanced acquisition. ECASS hemorrhagic transformation score: Not Applicable NECK: Soft tissues: The soft tissue planes are maintained throughout. No evidence of a soft tissue mass in the neck or superior mediastinum. No significant lymphadenopathy is seen. Spine: Alignment is normal. Mild degenerative changes are present. Lung apices: There is biparietal bilateral paraseptal emphysema. The visualized lung apices are clear. CT ARTERIOGRAM: Extracranial Circulation: Aortic Arch: There is a normal branching pattern from the aortic arch. There is no significant stenosis in the proximal brachiocephalic vessels. Carotid Stenosis: Right Common: No significant stenosis. Right Internal Carotid Plaque: No significant plaque formation. Right Internal Carotid Stenosis (% by NASCET Criteria): 0 Left Common: No significant stenosis. Left Internal Carotid Plaque: No significant plaque formation. Left Internal Carotid Stenosis (% by NASCET Criteria): 0 Cervical Vertebral Arteries: Patency: Bilateral Dominance: Slightly right Intracranial Circulation: No intracranial arterial stenosis, aneurysm, or other lesion is identified. An anterior communicating artery is present. The bilateral posterior communicating arteries are within normal limits. The intracranial internal carotid arteries and the proximal anterior, middle and posterior cerebral arteries appear normal. The left vertebral artery is slightly dominant. The intracranial vertebral arteries and the basilar artery appear normal. The visualized predominantly proximal segments of the bilateral PICAs, AICAs and SCAs appear normal. The visualized dural venous sinuses are patent. Lead Software Qa Engineer (topogram) images: No significant findings. CT Cervical spine 2024 report only: 1. Negative for fracture or subluxation. 2. Mild degenerative disc disease C5-6. Facet degenerative changes bilateral. No significant bony foraminal or canal stenosis. 3. Severe apical emphysema for age. FINDINGS: Normal alignment. No fracture or suspicious bone lesion. Mild disc spacer C5-6 with minor spurring. No calcification along the anterior disc. No definite disc protrusion although CT is relatively insensitive. No canal or foraminal stenosis. Mild facet DJD. Soft tissues unremarkable. No mass or adenopathy seen. No fluid collection or hematoma. Lower neck including larynx, thyroid unremarkable. Chest demonstrates severe emphysema. Pleural-based density most consistent with scarring incompletely visualized. MRI Brain w/wo IVOCN 01/06/2024: No acute brain findings. General volume and morphology of the brain is within expected limits for age. No mass effect or abnormal intracranial enhancement and no abnormal cranial nerve enhancement. 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 MRI TMJ 12/29/2023 report only: Left TMJ shows reduced translation possibly due to early degenerative changes of the left mandibular condyle. Disc shows no internal derangement. Right TMJ unremarkable excepting for some reduced translation which may be due to abnormal biomechanics of the opposite TMJ. ASSESSMENT/PLAN Cervicalgia (primary encounter diagnosis) Localized swelling, mass or lump of neck Anxiety Raheem Crowley Cohn is a 49 year old male with chronic neck pain. HX: anxiety, HTN CTA Neck and Head 03/29/2024: No evidence of hemodynamically significant stenosis, intraluminal filling defect, abrupt vessel occlusion, aneurysm or vascular malformation in the intracranial and extracranial arterial vasculature. Arterial blood flow was measured to detect acute large vessel occlusion by computer aided detection software: Not Performed. Concordance between software and imaging review: Not Applicable. Spine: Alignment is normal. Mild degenerative changes are present. X-ray and MRI cervical spine orders placed for further evaluation and treatment considerations. Reviewed attending physical therapy as he has not attended for neck pain, he is agreeable and consultation order was placed. He order was signed and given at discharge as he will be attending close to his residence. At time of appointment he expressed that he has experienced increased anxiety with all of his medical concerns and doctors appointments. He was offered psychiatry consult, he is agreeable and order was placed. He is encouraged to complete MRI shoulder imaging and follow-up with orthopedic surgery upon completion. He is also encouraged to attend scheduled appointments and follow-up as recommended by ENT. Medications indicated for use reviewed, no changes made to current regimen. He reports that pain management currently manages medications. Plan of care, red flag signs, and when to seek emergent treatment reviewed. 1. Imaging: XR and MRI Cervical 2. Physical Therapy:Consult to - order signed and given at discharge - attending close to home 3. Medication:No changes 4. Referrals: PT 5. Considerations: Cervical MBB 6. Follow up: 1 week after MRI I spent a total of 40 minutes on the date of the service which included preparing to see the patient, [id number] patient care, completing clinical documentation, obtaining and/or reviewing separately obtained history, performing a medically appropriate examination, counseling and educating the patient/family/caregiver, ordering medications, tests, or procedures, and communicating results to the patient/family/caregiver. Imaging Ordered: For possible Cervical Stenosis and Radiculopathy due to interventional planning, surgical planning, and Failure of conservative treatments listed in HPI/Conservative Treatment Section (NSAIDs, PT, HEP and/or Leather Etcher within last 3-6 months) . SIGNATURE: Gabe Marin APRN.CNP PATIENT NAME: Raheem Cohn DATE:April 24, 2024 TIME: 1:42 PM documented in this encounter [facility] 04-24-2024 Note HNO ID: [id number] Author: GABE MARIN APRN.CNP Service: ? Author Type: Nurse Practitioner Type: Progress Notes Filed: 04/24/2024 15:47 Note Text: Spine Care Path Neck Pain - Chronic (> 12 weeks) Initial Exam SUBJECTIVE HISTORY OF PRESENT ILLNESS: Raheem Cohn is a 49 year old male who presents with a chief complaint of neck pain and is seen in consultation requested by Brandy Erickson PA-C for an opinion regarding neck pain. My final recommendations will be communicated back to the requesting physician by way of shared medical record or letter via [place] mail. Patient presents with neck pain for 14 months. He believes symptoms started after having some kind of infection while working in [place]. He states that he became ill in [place] and when he returned to [place] he was diagnosed with an infection . He states that since this time he has experienced jaw pain, difficulty swallowing, neck pain, and swelling of his neck. He reports that jaw pain and difficulty swallowing is his main concern. He has been evaluated by primary care, ENT, neurosurgery, infectious disease, and pain management in regards to pain and difficulty swallowing. He is also under the evaluation of orthopedic surgery in regards to left shoulder pain. He states at time of appointment that he feels that all his symptoms are connected. 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 Pain rated 9/10 Pain worse with trying to swallow, panicking, Pain improved with tens unit, air cast , heat, holding his head, keeping perfectly straight posture. Interventions: Tens unit, medication , air cast Medications:Gabapentin, Clonazepam, Pamelor, Seroquel, Thorazine, Prilosec, Lamisil, Past medications: tramadol, Physical Therapy: 01/28/2024 - 1 visit for TMJ - stopped due to pain. Treating Physicians: Dr. Germain -PCP Brandy BRISENO - Orthopaedics - Referring Provider Kay BRISENO - Spine/Neurosurgery - 03/17/2024 Dr Aquino - Infectious Diseases Lyn BRISENO - Ent-Otolaryngology Dr Garcia - Neurology Dr. Garcia - Pain management History of Spine Injections/Surgery: None for spine 03/24/24 Bilateral TMJ nerve block injection with 50% relief w/ Dr. Blankenship Other Issues Addressed at the Visit Today: None. Precipitating Event: None PAIN EVALUATION 04/22/2024 1512 04/24/2024 1344 Pain Level: 4 9 Pain Location: Neck Neck Description: Cramping;Numbness;Pressure;Tight ness Aching;Stabbing Duration Amount of Time: 10 13 Duration Units: Months Months Frequency: Continuous Continuous Intervention/Comfort measure: Medication;Relaxation;Heat;Spina l Cord Stimulator -- Comments: Entire head and mid back -- Litigation: No Workers' Compensation: No YELLOW AND BLUE FLAGS YES-Neg Attitude; Back Pain is Disabling YES-Avoiding Activity (for Fear of Pain) YES-Depression or Anxiety Disorders No-Social Problems No-Substance Use Disorder No-Job Dissatisfaction No-Financial Disincentives Patient Entered Questionnaires 03/13/2024 Spine Questions Pain Location: Other Pain Duration: 1 to 5 years Pain over last 6 months: Every day or nearly every day in the past 6 months Symptoms from neck/cervical spine: Yes Employment Status: Other Off work 1 month or more due to back/neck pain: Yes Applied for/receive disability/WC due to low back/neck pain Does not apply Involved in law suit/legal claim: No 03/13/2024 Spine Red Flags Any type of cancer: No Unexplained fever: No Bowel or bladder disfunction: No Unintentional weight loss: No Osteoporosis: No 03/13/2024 Neck Questionnaires Benzel Modified KOBE Score Incomplete PROMIS Score Percentiles 01/28/2024 03/13/2024 Physical Health Physical Function Percentile 0 2 Sleep Percentile 14 Fatigue Percentile 1 Pain Interference Percentile 0 03/13/2024 PROMIS SOCIAL ROLE SCORE Social Role Satisfaction Percentile 2 12/08/2023 03/13/2024 PROMIS Global Health Scale Physical Health Percentile 1 2 Mental Health Percentile 2 2 Percentiles provide an indication of how the patient's score ranks in relation to the general population. Higher percentile rankings indicate better function/quality of life. 50th percentile is the average of the general population and indicates half of respondents had a worse score. Depression Screenin01/17/2024 03/13/2024 03/31/2024 PHQ-9 Score 25 17 11 01/17/2024 03/13/2024 03/31/2024 PHQ-9 Self-harm Question Question 9 Nearly every day Not at all Not at all PHQ-9 Self-Harm (Item 9) response options: 0 Not at all (more content not included)... [facility] 04-21-2024 Note HNO ID: [id number] Author: DIYA BONILLA MD Service: ? Author Type: Physician Type: Progress Notes Filed: 04/21/2024 09:02 Note Text: This consult is seen at the kind request of SUZANNA Shipman of otolaryngology, and my final recommendations will be communicated to the requesting health care provider by way of shared electronic medical record. This note is formatted with the impression and plan first and the history and physical to follow. IMPRESSION 49-year-old male with dysphagia, left nasal obstruction due to caudal septal deviation and mouth pain/discomfort. RECOMMENDATION/PLAN For his dysphagia, patient's flexible laryngoscopy exam was normal and his previous swallow study per patient was also normal. Therefore I do not recommend any further intervention at this time. If his symptoms gets worse, we can always consider repeat swallow study. For his mouth pain/discomfort, I see no obvious mucosal abnormalities. Patient was reassured. For his caudal septal deviation, I will refer the patient to our facial plastic surgeons with possible open septorhinoplasty. I will see him back on as-needed basis. Chief Complaint Trouble swallowing, dry mouth/mouth discomfort, left nasal obstruction. History of Present Illness Raheem Cohn is a 49 year old male present for eval for trouble swallowing, dry mouth/mouth discomfort and left nasal obstruction. Patient stated that his swallowing issues has been present for the last few years. He has trouble breathing through the left side of his nose. He has tried Flonase nasal spray with no improvement. He also complains of dry mouth and difficulty swallowing. However, patient stated that he had a swallow study which came back normal. He had his teeth pulled about a year ago and since then, he is having pain in his mouth and in the area of dental extraction. He stated that when he had his upper molar removed on the right side, he felt like something was twisted in his mouth and in his jaw. When he pushes on his face to the left side, he feels that his swallowing is better. He has no issue with swallowing when he drinks water but feels that when he is try to swallow with only his saliva, he has difficulty initiating swallowing. PAST MEDICAL HISTORY Diagnosis Date Amphetamine and other psychostimulant dependence, episodic (HCC) 06/03/2007 clean 09/11, again clean since 01/2013 Anxiety state, unspecified Carpal tunnel syndrome, bilateral Chronic back pain Heart murmur child Hepatitis C Insomnia, unspecified IVDU (intravenous drug user) in past, last in 2009 Verruca vulgaris right hand PAST SURGICAL HISTORY Procedure Laterality Date ANES DX/THER NERVE BLOCK/INJECTION PRONE POS 2012 CRYOSURGERY right hand wart PAST SURGICAL HISTORY OF 1992 right hand fracture FAMILY HISTORY Problem Relation Age of Onset other (Unknown [Other]) Father other (Anxiety [Other]) Mother CURRENT OUTPATIENT MEDICATIONS Current Outpatient Medications on File Prior to Visit Medication Sig b complex, c, folic acid 1 mg renal vitamins (NEPHROCAPS) 1 mg capsule Take 1 capsule by mouth every morning. Ferrous Gluconate 240 mg (27 mg iron) tablet Take by mouth as directed. fluticasone (FLONASE) 50 mcg/actuation nasal spray Use in the nose. ketoconazole (NIZORAL) 2 % shampoo Apply 1 Application to affected area. niacin (NIACIN) 100 mg tablet Take by mouth as directed. Vitamin A 2,400 mcg capsule Take 8,000 Units by mouth. saliva stimulant comb. no.4 spry Use 2 Sprays as instructed every 4 hours as needed. clonazePAM (KLONOPIN) 0.5 mg tablet Take 1 mg by mouth. gabapentin (NEURONTIN) 300 mg capsule Take 600 mg by mouth three times a day. vit B complex no.12/niacin,B3, (VITAMIN B COMPLEX NO.12-NIACIN ORAL) Take by mouth. chlorproMAZINE (THORAZINE) 50 mg tablet Take 2 tablets by mouth one time only for 1 dose. Take 1 hour prior to MRI. terbinafine HCl (LAMISIL) 250 mg tablet Take 250 mg by mouth once daily. QUEtiapine (SEROQUEL) 100 mg tablet Take 200 mg by mouth daily at bedtime. nortriptyline (PAMELOR) 25 mg capsule Take 1 capsule by mouth two times a day. omeprazole (PRILOSEC) 40 mg capsule Take 40 mg by mouth once daily. No current facility-administered medications on file prior to visit. ALLERGIES ALLERGIES Allergen Reactions Penicillins Anaphylaxis The remainder of the patient's history and review of systems is on the outpatient questionaire which was reviewed by me and placed in the outpatient chart. PHYSICAL EXAMINATION Appearance: General examination of the patient's external face, head and neck reveals no abnormalities. The patient is not retrognathic The patient's voice is strong and clear and they communicate easily. Ears: Exam of the ears revealed normal appearing external auditory canals, tympanic membranes, and middle ears. No signs of infection or fluid were seen. Nose: External nasal exam was normal. Thro (more content not included)... [facility] 04-21-2024 History of Present illness Narrative This consult is seen at the kind request of SUZANNA Shipman of otolaryngology, and my final recommendations will be communicated to the requesting health care provider by way of shared electronic medical record. This note is formatted with the impression and plan first and the history and physical to follow. IMPRESSION 49-year-old male with dysphagia, left nasal obstruction due to caudal septal deviation and mouth pain/discomfort. RECOMMENDATION/PLAN For his dysphagia, patient's flexible laryngoscopy exam was normal and his previous swallow study per patient was also normal. Therefore I do not recommend any further intervention at this time. If his symptoms gets worse, we can always consider repeat swallow study. For his mouth pain/discomfort, I see no obvious mucosal abnormalities. Patient was reassured. For his caudal septal deviation, I will refer the patient to our facial plastic surgeons with possible open septorhinoplasty. I will see him back on as-needed basis. Chief Complaint Trouble swallowing, dry mouth/mouth discomfort, left nasal obstruction. History of Present Illness Raheem Cohn is a 49 year old male present for eval for trouble swallowing, dry mouth/mouth discomfort and left nasal obstruction. Patient stated that his swallowing issues has been present for the last few years. He has trouble breathing through the left side of his nose. He has tried Flonase nasal spray with no improvement. He also complains of dry mouth and difficulty swallowing. However, patient stated that he had a swallow study which came back normal. He had his teeth pulled about a year ago and since then, he is having pain in his mouth and in the area of dental extraction. He stated that when he had his upper molar removed on the right side, he felt like something was twisted in his mouth and in his jaw. When he pushes on his face to the left side, he feels that his swallowing is better. He has no issue with swallowing when he drinks water but feels that when he is try to swallow with only his saliva, he has difficulty initiating swallowing. PAST MEDICAL HISTORY Diagnosis Date Amphetamine and other psychostimulant dependence, episodic (HCC) 06/03/2007 clean 09/11, again clean since 01/2013 Anxiety state, unspecified Carpal tunnel syndrome, bilateral Chronic back pain Heart murmur child Hepatitis C Insomnia, unspecified IVDU (intravenous drug user) in past, last in 2009 Verruca vulgaris right hand PAST SURGICAL HISTORY Procedure Laterality Date ANES DX/THER NERVE BLOCK/INJECTION PRONE POS 2012 CRYOSURGERY right hand wart PAST SURGICAL HISTORY OF 1992 right hand fracture FAMILY HISTORY Problem Relation Age of Onset other (Unknown [Other]) Father other (Anxiety [Other]) Mother CURRENT OUTPATIENT MEDICATIONS Current Outpatient Medications on File Prior to Visit Medication Sig b complex, c, folic acid 1 mg renal vitamins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 06/08/2009 UWBC 0-5 /HPF 01/07/2022 IgG: No results found for: IGG Cylex: No results found for: ATP Microbiology data: reviewed to date - see below for recent significant data - select data provided Microbiology data: reviewed to date - see below for recent significant data - select data provided 03/29/2024 Tongue Aspirate Cx Specimen Information: Tongue; Aspirate/Fine Needle Aspirate WOUND CULTURE Few Escherichia coli Abnormal Moderate mixed oral and respiratory rosaura Abnormal Smear Result Abnormal Moderate Gram positive cocci in clusters No Polymorphonuclear Leukocytes Susceptibility Escherichia coli MINIMUM INHIBITORY CONCENTRATION(VITEK) Ampicillin <=2 S Ampicillin/Sulbact <=2 S Cefepime <=1 S Ceftriaxone <=1 S Ciprofloxacin <=0.25 S Ertapenem <=0.5 S Gentamicin <=1 S Meropenem <=0.25 S Piperacillin/Tazobac <=4 S Tobramycin <=1 S Trimeth sulfameth <=20 S 04/15/2023 Hep C RNA = 746,000 Serology: RPR (no units) Date Value 06/08/2009 Nonreactive Negative: Hep C (07/22/2023) - Hep C RNA - also negative 06/14/2009 04/15/2023 Hep B Core Ab Total Nonreactive negative Hep B Surface Ag Nonreactive negative Positive: 04/15/2023 -- Hep A = POSITIVE = IMMUNE Hep B surface Ab = 15.35 - positive. Imaging data: reviewed 04/07/24 shoulder 1. Minimal acromioclavicular and glenoid osteoarthropathy. No acute finding or significant arthropathy. 03/29/2024 CTA HEAD No evidence of hemodynamically significant stenosis, intraluminal filling defect, abrupt vessel occlusion, aneurysm or vascular malformation in the intracranial and extracranial arterial vasculature. Arterial blood flow was measured to detect acute large vessel occlusion by computer aided detectionsoftware: Not Performed. Concordance between software and imaging review: Not Applicable. 01/06/24 MRI BRAIN No acute brain findings. General volume and morphology of the brain is within expected limits for age. No mass effect or abnormal intracranial enhancement and no abnormal cranial nerve enhancement. 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 Feels his mouth is extra dry and at times difficulty swallowing Patient very concerned that his black hairy tongue might represent an infection. It does not Recent E. coli culture from mouth likely colonizing. Ash susceptible Sober since 2018 -does report some illicit IVDU drug use prior to that Amphetamine and other psychostimulant dependence, episodic (HCC) 06/03/2007 clean 09/11, again clean since 01/2013 Hepatitis C infection -- S/P viral clearance with specific Rx -Immunity documented to hepatitis A & hepatitis B HIV testing always negative. 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 Patient underwent full dental extraction 05/2023 at outside oral surgery location - c/b fracture of my lower jaw in the middle --reoperation evidently helped to heal -Gumline still with some discomfort areas though no lona obvious infection or exposed bone. - CT and MRI imaging of the head does not show changes of osteomyelitis ALLERGIES Allergen Reactions Penicillins Anaphylaxis RECOMMENDATIONS / PLAN: Recommend against antibiotics. No direct infection identified to treat Reports diarrhea occasionally with mixed blood Stool BioFire, stool enteric panel HIV screen Syphilis screen Test immune system with serum immunoglobulins and immunodeficiency CDC panel At patient request refill prescription for artificial saliva Recommended oral hygiene with OTC agent as well as tongue brushing Will see what labs reveal and determine if future ID input is needed Reiterated importance of follow-up with ENT I discussed general & specific ID issues with patient. Answered questions. Case discussed / communicated with primary team today. Monitoring for ongoing therapeutic and potential untoward effects of high risk antimicrobial therapy. Elements included: -Diagnostic results, impressions, and recommended further studies; -Risk and benefits of treatment and management options; -Instructions for management recommendations and/or follow up; -Importance of compliance with chosen management options; -Risk factor reduction; -Patient education. -Colleague / care-home care giver communication as necessary. NOTE: Any copied forward data in this note has been reviewed by me April 14, 2024 and is present to reiterate continued relevant clinical elements; ensure accuracy; and enhance [id number] communication re: clinical care of this patient. Medical Decision Making (MDM) Calculator input c/w HIGH MDM in this case today Jose R Aquino MD Staff Physician [facility]ious [facility] NoteHNO ID: [id number] Author: TIEN HEREDIA PT Service: ? Author Type: Physical Therapist Type: Progress Notes Filed: 04/13/2024 11:17 Note Text: 04/13/[address] [facility] PHYSICAL THERAPY DISCONTINUANCE OF CARE Plan of Care Period: Start of Care Date: 01/28/24 Last Visit Date: 01/28/2024 Therapy Program: Patient did not return for follow up care as planned. Please refer to last visit note for interventions provided for this episode of care. Assessment: Unable to formally assess goal achievement. Reason for Discontinuation of Care: Patient has not returned to therapy or scheduled additional follow-up appointments. Tien Heredia, [facility]02-06-2025 History of Present illness Narrative* Gold S Karen, SUZANNA - 04/13/2024 9:15 AM EST [facility] [address] [place] [address] Patient: Raheem Cohn Jr. Sex: male : 1975 Age: 49 y.o. PCP: Carrington Fritz MD 04/13/2024 Raheem Cohn JrAlistair is here for a(n) post procedure follow up 03/24/24 Bilateral TMJ nerve block injection with 50% relief. He also reports he was started on Gabapentin 300 mg TID which is helpful. Date of onset of pain: 4-5 months ago , pain has lasted greater than 3 months. Pain scale before treatment: 10/10 Percentage and duration of relief after treatment: 50% Pain scale after treatment: 5/10 Chief Complaint Patient presents with Temporomandibular Join Pain HPI: 03/24/24 Bilateral TMJ nerve block injection with 50% relief. Neck Pain This is a chronic problem. The current episode started more than 1 month ago (April 2021). The problem occurs constantly. The problem has been gradually worsening. The pain is present in the midline (right and left jaw). The quality of the pain is described as aching (sharp pain to mouth and nose). The pain is at a severity of 4/10 (up to 7/10). The symptoms are aggravated by twisting, bending, sneezing and coughing (sitting, walking, lying, transitioning, eating, chewing, opening mouth). The pain is Same all the time. Stiffness is present All day. Associated symptoms include numbness (fingers bilaterally). Pertinent negatives include no headaches or tingling. Weight loss: jaw.Associatedsymptoms comments: Shooting pain to right side of head . He has tried NSAIDs and muscle relaxants (PT, Chiropractor, jaw surgery, injections, flexeril, IBU, ketoradol, indomethocin) for the symptoms. The effect of pain on patient's ADLS: Severe Impairment. Past Medical History: Diagnosis Date Acid reflux Anxiety Breathlessness lying flat Carpal tunnel syndrome Edentulous Hx of hepatitis C has been treated Jaw pain Murmur, cardiac as a child Neck pain Wears dentures Past Surgical History: Procedure Laterality Date HAND SURGERY INJECTION BURSA INTERMEDIATE Bilat TMJ Bilateral 03/24/2024 Performed by Laurence Blankenship MD at [facility] MANDIBLE SURGERY TOOTH EXTRACTION WRIST SURGERY Allergies Allergen Reactions Penicillins Anaphylaxis and Cough [facility]. Family History Problem Relation Age of Onset Diabetes Maternal Grandmother Social History Socioeconomic History Marital status: Single Spouse name: Not on file Number of children: Not on file Years of education: Not on file Highest education level: Not on file Occupational History Not on file Tobacco Use Smoking status: Former Current packs/day: 0.00 Types: Cigarettes Quit date: 02/16/1994 Years since quittin.1 Smokeless tobacco: Former Vaping Use Vaping status: Former Substance and Sexual Activity Alcohol use: Not Currently Drug use: Not Currently Types: Methamphetamines Sexual activity: Defer Other Topics Concern Not on file Social History Narrative Not on file Social Drivers of Health Financial Resource Strain: High Risk (03/05/2024) Received from [employer] Overall Financial Resource Strain (CARDIA) Difficulty of Paying Living Expenses: Very hard Food Insecurity: No Food Insecurity (04/13/2024) Hunger Screening Food Insecurity - Worry: Never True Food Insecurity - Inability: Never True Recent Concern: Food Insecurity - Food Insecurity Present (02/14/2024) Hunger Screening Food Insecurity - Worry: Sometimes True Food Insecurity - Inability: Sometimes True Transportation Needs: No Transportation Needs (03/05/2024) Received from [employer] PRAPARE - Transportation Lack of Transportation (Medical): No Lack of Transportation (Non-Medical): No Recent Concern: Transportation Needs - Unmet Transportation Needs (02/14/2024) PRAPARE - Transportation Lack of Transportation (Medical): No Lack of Transportation (Non-Medical): Yes Physical Activity: Insufficiently Active (03/05/2024) Received from [employer] Exercise Vital Sign Days of Exercise per Week: 3 days Minutes of Exercise per Session: 20 min Stress: Stress Concern Present (03/05/2024) Received from [employer] [place] [employer] - Occupational Stress Questionnaire Feeling of Stress : Very much Social Connections: Moderately Isolated (03/05/2024) Received from [employer] Social Connection and Isolation Panel [NHANES] Frequency of Communication with Friends and Family: Never Frequency of Social Gatherings with Friends and Family: Never Attends Quaker Services: 1 to 4 times per year Active Member of Clubs or Organizations: No Attends Club or Organization Meetings: More than 4 times per year Marital Status: Never Interpersonal Safety: Not At Risk (03/05/2024) Received from [employer] Humiliation, Afraid, Rape, and Kick questionnaire Fear of Current or Ex-Partner: No Emotionally Abused: No Physically Abused: No Sexually Abused: No Housing Instability: High Risk (03/05/2024) Received from [employer] Housing Stability Vital Sign Unable to Pay for Housing in the Last Year: No Number of Times Moved in the Last Year: 0 Homeless in the Last Year: Yes Review of Systems Constitutional: Negative. Weight loss: jaw. HENT: Negative. Eyes: Negative. Respiratory: Positive for shortness of breath. Cardiovascular: Negative. Gastrointestinal: Negative. Endocrine: Negative. Genitourinary: Negative. Musculoskeletal: Negative. Positive for neck pain. Skin: Negative. Allergic/Immunologic: Negative. Neurological: Positive for numbness (fingers bilaterally). Negative for tingling and headaches. Hematological: Negative. Psychiatric/Behavioral: Negative. Vital Signs: BP (!) 130/93 Pulse 86 Resp 24 SpO2 98% Physical Exam: GENERAL - Healthy patient that appears stated age. HEENT - Normocephalic / Atraumatic, Extraoccular movements intact, trachea midline, thyroid within normal limits. CV - pulse regular, Warm extremities with appropriate color of nailbeds. RESP - No obvious wheezing, No Shortness of Breath, No overexertion response to exam maneuvers. COORDINATION - remains intact. PSYCH - Alert and Oriented x4, Attentive and appropriate, constitutionally normal, displays normal mood and affect per situation, answered questions appropriately during examination, demonstrated appropriate attention during discussion, demonstrated appropriate cognitive reasoning and understandingof the medical condition by asking appropriate questions regarding the diagnosis and risks/benefits/alternatives of treatment modalities. No obvious deficits in memory, reasoning, or intellect. Cervical: SKIN - No rashes or bruising in the area of the patient s pain. LYMPH NODES - demonstrate no obvious enlargement. EXTREMITIES - Upper extremities are warm, with minimal edema and palpable pulses. No Significant tenderness to palpation noted in the cervical spine and paraspinal musculature. Minimal pain is elicited with flexion, extension, and lateral rotation of the cervical spine. Range of motion is not diminished with these motions. Facet palpation is noted to be minimally painful, but not concordant with the patient s normal pain complaints. STRENGTH - noted to be 5 out of 5 all muscle groups bilateral upper extremities including muscles involving shoulder flexion and abduction, elbow flexion and extension, as well as wrist flexion and extension and intrinsic muscles of the hand. No notable atrophy, fasciculations or spasm. SENSORY - No notable sensory deficits in the bilateral upper extremities to touch or pinprick in all dermatomal distributions. Spurlings sign is negative. Mild bilateral TMJ tenderness. Assessment/Treatment Plan: Raheem was seen today for temporomandibular join pain. Diagnoses and all orders for this visit: TMJ (temporomandibular joint disorder) - gabapentin (NEURONTIN) 600 mg tablet; Take 1 tablet (600 mg total) by mouth 3 (three) times a day. Jaw pain Increase to Gabapentin 600 mg TID With Regard to medication management, it is felt that the patient would benefit from the changes mentioned above. This should provide symptomatic pain relief as part of the comprehensive pain management strategy outlined. Risks, Benefits, Side effects, and possible interactions of these medicationswere reviewed and the medication agreement has been discussed, agreed upon, and signed. The patientunderstands compliance concerns and the requirement of pill counts and drug screens while taking medications prescribed by this clinic. Follow up 2 months The medications I have prescribed have been reviewed for medication interactions/contraindications and/or for upcoming procedures: continue current medication regimen without any changes. DISCUSSION: Treatment options discussed with patient and all questions answered to patient's satisfaction. Discussed the rules and regulations surrounding prescription of opioids and compliance at length. Failure to follow the rules and regulation will result in tapering and discontinuation of medications if applicable. Prescribed medication that requires intensive monitoring for toxicity Gabapentin. OARRS was reviewed, discussed and appropriate for medications prescribed. It does appear that the patient benefited from the previous injection and the benefit has continuedthrough this visit. At this time, we will monitor the patient s symptoms from an interventional standpoint and consider another injection in the future if the patient s symptoms return or intensify severely. The patient was made aware that they should call if symptoms worsen or if their pain beginsto have a negative impact on their quality of life and activities of daily living again. MRI and CT was reviewed and used to explain the condition. Chronic conditions not treated during this visit that affected my overall medical decision making: Anxiety OARRS: Reviewed. Scribe Statement: Dahlia Granados CNA, scribed for and in the presence of SUZANNA CAMPUZANO who performed the above service. Provider Statement: I, SUZANNA CAMPUZANO, personally performed the services described in the documentation, as scribed by Dahlia Garcia CNA in my presence, and it is both accurate and complete. Dahlia Garcia CNA 04/13/24 0858 Dahlia Garcia CNA 04/13/24 0900 Dahlia Garcia CNA 04/13/24 0940 SUZANNA Campuzano 04/13/24 1157 [facility] Tele[facility] encounter Note* Telephone Encounter - Nesha Hawley - 04/11/2024 12:20 PM EST called AND SPOKE WITH PATIENT, RESCHEDULED TO 04/[address] BONILLA AT [facility]02-04[facility] Miscellaneous Notes* Telephone Encounter - Nesha Hawley - 04/11/2024 12:20 PM EST called AND SPOKE WITH PATIENT, RESCHEDULED TO 04/[address] BONILLA AT [facility] * Telephone Encounter - Sin Arriaga - 04/11/2024 12:06 PM EST Raheem is calling Carlos Lebron MD today. Called in to see if he could still be seen if he was 20 minutes late for his appointment. Advised patient that provider was not going to be there for his appointment today. Advised a message was left regarding this. Patient states he did not receive any message that this was cancelled. Confirmed that we did have correct phone number. Please call patient back to reschedule. Patient has been identified by name and birthdate. Duration of symptoms: N/A Person calling: self Call patient at: on cell There are no phone numbers on file. Was an appointment scheduled: No Closing statement: Results or non-symptom based questions: Thank you for calling [facility], your call will be returned within the next business day. Sin Weiner [facility] Telephone encounter Note * Telephone Encounter - iSn Arriaga - 04/11/2024 12:06 PM EST Raheem is calling Carlos Lebron MD today. Called in to see if he could still be seen if he was 20 minutes late for his appointment. Advised patient that provider was not going to be there for his appointment today. Advised a message was left regarding this. Patient states he did not receive any message that this was cancelled. Confirmed that we did have correct phone number. Please call patient back to reschedule. Patient has been identified by name and birthdate. Duration of symptoms: N/A Person calling: self Call patient at: on cell There are no phone numbers on file. Was an appointment scheduled: No Closing statement: Results or non-symptom based questions: Thank you for calling [facility], your call will be returned within the next business day. Sin Weienr [facility]02-03-2025 Miscellaneous Notes* Telephone Encounter - Fernanda Hernandez - 04/10/2024 9:01 AM EST [facility] re appt that was made via [employer]. The reason for visit is sore and infected throat, which does not sound like something he would need to see Vascular Surgeon for. I do not see any referrals in his chart nor testing to indicate necessity for vascular surgeon. Appt was cancelled and patient notified by voicemail as phone was not answered when I called. documented in [facility] Telephone encounter Note* Telephone Encounter - Fernanda Mary - 04/10/2024 9:01 AM EST [facility] re appt that was made via [employer]. The reason for visit is sore and infected throat, which does not sound like something he would need to see Vascular Surgeon for. I do not see any referrals in his chart nor testing to indicate necessity for vascular surgeon. Appt was cancelled and patient notified by voicemail as phone was not answered when I called. [facility]02-01[facility] Miscellaneous Notes* Telephone Encounter - YUNIER Mata - 04/08/2024 5:02 PM EST Patient requesting refill documented in [facility] Telephone encounter Note* Telephone Encounter - YUNIER Mata - 04/08/2024 5:02 PM EST Patient [facility] refill [facility]02-01-[facility] Instructions* Patient Instructions* Mechelle Bains APRN.CNP - 04/08/2024 12:58 PM EST Note sent to [employer]. Keep your follow-up with ENT. Continue treatment as directed. documented in [facility]Reg[facility]-2025 NoteHNO ID: [id number] Author: MECHELLE BAINS APRN.CNP Service: ? Author Type: Nurse Practitioner Type: Progress Notes Filed: 04/08/2024 12:59 Note Text: April 08, 2024 Raheem Crowley Guadalupe 1975 VIRTUAL VISIT PROGRESS NOTE This is a virtual visit. It required patient-provider interaction for the medical decision making as documented below. Informed verbal consent was obtained from this patient to communicate and provide care using virtual and other telecommunications tools. This patient has been explained the risks related to unauthorized disclosure or interception of personal health information and steps they can take to help protect their information. We have discussed that care provided through video or audio communication cannot replace the need for physical examination or an in person visit for some disorders or urgent problems and patient understands the need to seek urgent care in an Emergency Department as necessary. I have communicated my name and active licensure. The patient's identity and physical location were verified at the time of this visit. Either the patient or their legal key account representative has been informed of the risks and benefits of -- and alternatives to -- treatment through a remote evaluation and consents to proceed with the evaluation remotely. Platform patient seen on: [employer] Video Visit platform Location of patient: [place] Cohn is a 49 year old male seen for Patient presents with: Results HPI Pt visit today to discuss tongue culture results. Pt currently followed by ENT for tongue culture. Pt states he has been seen and tx several times for this. Pt has an upcoming appointment with ENT 04/11/24. Pt last tongue culture came back for E.Coli which is susceptible to the bactrim he is taking. Pt has concern that he has been on the same antibiotic several times and his sx are not improving. Explained to him that he will need to follow-up with the treating provider to discuss his concerns. Pt needs a note stating that he can go to class. HISTORY REVIEWED (electronic chart updated): PAST MEDICAL HISTORY Diagnosis Date Amphetamine and other psychostimulant dependence, episodic (HCC) 06/03/2007 clean 09/11, again clean since 01/2013 Anxiety state, unspecified Carpal tunnel syndrome, bilateral Chronic back pain Heart murmur child Hepatitis C Insomnia, unspecified IVDU (intravenous drug user) in past, last in 2009 Verruca vulgaris right hand PAST SURGICAL HISTORY Procedure Laterality Date ANES DX/THER NERVE BLOCK/INJECTION PRONE POS 2012 CRYOSURGERY right hand wart PAST SURGICAL HISTORY OF 1992 right hand fracture FAMILY HISTORY Problem Relation Age of Onset other (Unknown [Other]) Father other (Anxiety [Other]) Mother Social History Tobacco Use Smoking status: Every Day Current packs/day: 0.30 Average packs/day: 0.3 packs/day for 16.0 years (4.8 ttl pk-yrs) Types: Cigarettes Smokeless tobacco: Current Tobacco comments: Pt basically does chew Substance Use Topics Alcohol use: No Drug use: Yes Types: Amphetamines Comment: recovering addict since 2006, was on Meth and IV drugs Current Outpatient Medications Medication Sig sulfamethoxazole-trimethoprim (BACTRIM DS) 800-160 mg per tablet Take 1 tablet by mouth two times a day for 7 days. clonazePAM (KLONOPIN) 0.5 mg tablet Take 1 mg by mouth. gabapentin (NEURONTIN) 300 mg capsule Take 300 mg by mouth three times a day. vit B complex no.12/niacin,B3, (VITAMIN B COMPLEX NO.12-NIACIN ORAL) Take by mouth. chlorproMAZINE (THORAZINE) 50 mg tablet Take 2 tablets by mouth one time only for 1 dose. Take 1 hour prior to MRI. terbinafine HCl (LAMISIL) 250 mg tablet Take 250 mg by mouth once daily. QUEtiapine (SEROQUEL) 100 mg tablet Take 200 mg by mouth daily at bedtime. nortriptyline (PAMELOR) 25 mg capsule Take 1 capsule by mouth two times a day. omeprazole (PRILOSEC) 40 mg capsule Take 40 mg by mouth once daily. No current facility-administered medications for this visit. ALLERGIES Allergen Reactions Penicillins Anaphylaxis REVIEW OF SYSTEMS: Review of Systems PHYSICAL EXAMINATION: VIDEO EXAM: (performed via video enabled technology) GENERAL: alert and appropriate, in no distress and well-hydrated, well nourished RESPIRATORY: breathing non-labored ASSESSMENT: (Z71.2) Encounter to discuss test results (primary encounter diagnosis) PLAN: Encounter Diagnosis ICD-10-CM 1. Encounter to discuss test results Z71.2 ASSESSMENT/PLAN: 1. Encounter to discuss test results - ICD9: V65.49, ICD10: Z71.2 Work note sent to [facility]. Follow-up with ENT as directed. Mechelle Bains APRN.[facility] No follow-ups on file. Patient Instructions Note sent to [facility]. Keep your follow-up with ENT. Continue treatment as directed. Medical Decision Making: Problems: Low: Stable chronic illness Data: Unique test result(s) reviewed: 2 Me (more content not included)...[facility]02-01-2025 History of Present illness Narrative* Mechelle Bains APRN.[facility] - 04/08/2024 12:41 PM EST Images from the original note were not included. April 08, 2024 Raheem Crowley Cohn 1975 VIRTUAL VISIT PROGRESS NOTE This is a virtual visit. It required patient-provider interaction for the medical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 access to crisis contacts if he were to need them in the future. ~P offered active and supportive listening, normalized emotions and feelings related to his pain Last Documented On 4 5:20PM ; [facility] Discussed nutritional needs teach healthy choices including fruits and vegetables Last Documented On 4 1:16PM ; [facility] Patient education about a pr oper diet Last Documented On 4 1:16PM ; [facility] Discussed concerns about exe rcise : promote physical activity Last Documented On 4 1:16PM ; [facility] Discussed nutritional needs teach healthy choices including fruits and vegetables Last Documented On 4 1:19PM ; [facility] Patient education about a pr oper diet Last Documented On 4 1:19PM ; [facility] Discussed concerns about exe rcise : promote physical activity Last Documented On 4 1:19PM ; [facility] Discussed nutritional needs teach healthy choices including fruits and vegetables Last Documented On 4 1:14PM ; [facility] Patient education about a pr oper diet Last Documented On 4 1:14PM ; [facility] Discussed concerns about exe rcise : promote physical activity Last Documented On 4 1:14PM ; [facility] Discussed nutritional needs teach healthy choices including fruits and vegetables Last Documented On 4 1:17PM ; [facility] Patient education about a pr oper diet Last Documented On 4 1:17PM ; [facility] Discussed concerns about exe rcise : promote physical activity Last Documented On 4 1:17PM ; [facility] Discussed concerns about uns afe sexual practices Last Documented On 4 1:29PM ; [facility] Discussed concerns about tob acco use Last Documented On 4 1:29PM ; [facility] Discussed concerns about alc ohol use Last Documented On 4 1:29PM ; [facility] Discussed concerns about ill icit drug use Last Documented On 4 1:29PM ; [facility] Patient has agreed to visits every 4 weeks Last Documented On 4 1:29PM ; [facility] Patient aware not to share n eedles, razors, toothbrushes, or nail clippers Last Documented On 4 1:29PM ; [facility] Counseled on medication and herbal product interactions Last Documented On 4 1:29PM ; [facility] Patient is treatment naive Last Documented On 4 1:29PM ; [facility] Patient has an estimated lif e expectancy of 12 months or greater. Last Documented On 4 1:29PM ; [facility] Patient counseled on how to take Hepatitis C Medications Last Documented On 4 1:29PM ; [facility] Patient agreed to labs (CBC, CMP, HCV) every 4 weeks Last Documented On 4 1:29PM ; [facility] Discussed nutritional needs teach healthy choices including fruits and vegetables Last Documented On 4 2:43PM ; [facility] Patient education about a pr oper diet Last Documented On 4 2:43PM ; [facility] Discussed concerns about exe rcise : promote physical activity Last Documented On 4 2:43PM ; [facility] *[facility] offered active and supp ortive listening, normalized emotions and feelings, and processed ~current stressors. ~*Reviewed relapse prevention skills and positive support activities Last Documented On 4 7:56PM ; [facility] Discussed nutritional needs teach healthy choices including fruits and vegetables Last Documented On 4 1:21PM ; [facility] Patient education about a pr oper diet Last Documented On 4 1:21PM ; [facility] Discussed concerns about exe rcise : promote physical activity Last Documented On 4 1:21PM ; [facility] Patient has agreed to visits every 4 weeks Last Documented On 4 1:59PM ; [facility] Patient aware not to share n eedles, razors, toothbrushes, or nail clippers Last Documented On 4 1:59PM ; [facility] Counseled on medication and herbal product interactions Last Documented On 4 1:59PM ; [facility] Patient is treatment naive Last Documented On 4 1:59PM ; [facility] Patient has an estimated lif e expectancy of 12 months or greater. Last Documented On 4 1:59PM ; [facility] Patient counseled on how to take Hepatitis C Medications Last Documented On 4 1:59PM ; [facility] Patient agreed to labs (CBC, CMP, HCV) every 4 weeks Last Documented On 4 1:59PM ; [facility] Work Phone: [phone] Instructions Includes: Instructions for all patient encounters Instructions to patient Intervention and counseling on cessation of tobacco use, 3-10 minutes Last Documented On 4 4:42PM ; [facility] Education and Decision Aids were provided during visit for: ~*[facility] offered active and sup portive listening, normalized emotions and feelings, and processed ~current stressors Last Documented On 5 5:57PM ; [facility] Discussed nutritional needs teach healthy choices including fruits and vegetables Last Documented On 5 2:16PM ; [facility] Patient education about a pr oper diet Last Documented On 5 2:16PM ; [facility] Discussed concerns about exe rcise : promote physical activity Last Documented On 5 2:16PM ; [facility] Discussed nutritional needs teach healthy choices including fruits and vegetables Last Documented On 4 4:10PM ; [facility] Patient education about a pr oper diet Last Documented On 4 4:10PM ; [facility] Discussed concerns about exe rcise : promote physical activity Last Documented On 4 4:10PM ; [facility] Not requesting contraception Last Documented On 4 4:10PM ; [facility] BHP and [employer] WORKER discussed patient s overall functioning, completed his BH screenings, discuss his mood, recovery, and medications today. ~[facility] noted patient is in signifcant amounts of pain that's increasing his cravings to use and SI. ~[facility] assessed risk for safety and noted patient does have a safety plan/relapse plan with his counselor and access to crisis contacts if he were to need them in the future. ~[facility] offered active and supportive listening, normalized emotions and feelings related to his pain Last Documented On 4 5:20PM ; [facility] Discussed nutritional needs teach healthy choices including fruits and vegetables Last Documented On 4 1:16PM ; [facility] Patient education about a pr oper diet Last Documented On 4 1:16PM ; [facility] Discussed concerns about exe rcise : promote physical activity Last Documented On 4 1:16PM ; [facility] Discussed nutritional needs teach healthy choices including fruits and vegetables Last Documented On 4 1:19PM ; [facility] Patient education about a pr oper diet Last Documented On 4 1:19PM ; [facility] Discussed concerns about exe rcise : promote physical activity Last Documented On 4 1:19PM ; [facility] Discussed nutritional needs teach healthy choices including fruits and vegetables Last Documented On 4 1:14PM ; [facility] Patient education about a pr oper diet Last Documented On 4 1:14PM ; [facility] Discussed concerns about exe rcise : promote physical activity Last Documented On 4 1:14PM ; [facility] Discussed nutritional needs teach healthy choices including fruits and vegetables Last Documented On 4 1:17PM ; [facility] Patient education about a pr oper diet Last Documented On 4 1:17PM ; [facility] Discussed concerns about exe rcise : promote physical activity Last Documented On 4 1:17PM ; [facility] Discussed concerns about uns afe sexual practices Last Documented On 4 1:29PM ; [facility] Discussed concerns about tob acco use Last Documented On 4 1:29PM ; [facility] Discussed concerns about alc ohol use Last Documented On 4 1:29PM ; [facility] Discussed concerns about ill icit drug use Last Documented On 4 1:29PM ; [facility] Patient has agreed to visits every 4 weeks Last Documented On 4 1:29PM ; [facility] Patient aware not to share n eedles, razors, toothbrushes, or nail clippers Last Documented On 4 1:29PM ; [facility] Counseled on medication and herbal product interactions Last Documented On 4 1:29PM ; [facility] Patient is treatment naive Last Documented On 4 1:29PM ; [facility] Patient has an estimated lif e expectancy of 12 months or greater. Last Documented On 4 1:29PM ; [facility] Patient counseled on how to take Hepatitis C Medications Last Documented On 4 1:29PM ; [facility] Patient agreed to labs (CBC, CMP, HCV) every 4 weeks Last Documented On 4 1:29PM ; [facility] Discussed nutritional needs teach healthy choices including fruits and vegetables Last Documented On 4 2:43PM ; [facility] Patient education about a pr oper diet Last Documented On 4 2:43PM ; [facility] Discussed concerns about exe rcise : promote physical activity Last Documented On 4 2:43PM ; [facility] *[facility] offered active and supp ortive listening, normalized emotions and feelings, and processed ~current stressors. ~*Reviewed relapse prevention skills and positive support activities Last Documented On 4 7:56PM ; [facility] Discussed nutritional needs teach healthy choices including fruits and vegetables Last Documented On 4 1:21PM ; [facility] Patient education about a pr oper diet Last Documented On 4 1:21PM ; [facility] Discussed concerns about exe rcise : promote physical activity Last Documented On 4 1:21PM ; [facility] Patient has agreed to visits every 4 weeks Last Documented On 4 1:59PM ; [facility] Patient aware not to share n eedles, razors, toothbrushes, or nail clippers Last Documented On 4 1:59PM ; [facility] Counseled on medication and herbal product interactions Last Documented On 4 1:59PM ; [facility] Patient is treatment naive Last Documented On 4 1:59PM ; [facility] Patient has an estimated lif e expectancy of 12 months or greater. Last Documented On 4 1:59PM ; [facility] Patient counseled on how to take Hepatitis C Medications Last Documented On 4 1:59PM ; [facility] Patient agreed to labs (CBC, CMP, HCV) every 4 weeks Last Documented On 4 1:59PM ; [facility] Work Phone: [phone]) [phone] Evaluation note Includes: Assessments for all patient encounters Findings Encounter Date [Z68.26 - Body mass index [B VT] 26.0-26.9, adult] assessment of body mass index Medical Established Patient with Vanesa Crouch [employer]OB[employer] INSPECTOR 04/06/2024 Last Documented On 5 4:09PM ; [facility] Generalized anxiety disorder Medical Est ablished Patient with Vanesa Crouch BOBBIN INSPECTOR 04/06/2024 Last Documented On 5 4:09PM ; [facility] Methamphetamine dependence - in remission Medical Established Patient with Vanesa Crouch BOBBIN INSPECTOR 04/06/2024 Last Documented On 5 4:09PM ; [facility] Nicotine dependence Medical Established Patient with Vanesa Crouch BOBBIN INSPECTOR 04/06/2024 Last Documented On 5 4:09PM ; [facility] Opioid dependence in remission Medical E stablished Patient with Vanesa Crouch BOBBIN INSPECTOR 04/06/2024 Last Documented On 5 4:09PM ; [facility] 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 Medical Established Patient with Vanesa Crouch BOBBIN INSPECTOR 04/06/2024 Last Documented On 5 4:09PM ; [facility] Venipuncture was performed Medical Estab lished Patient with Vanesa Crouch BOBBIN INSPECTOR 04/06/2024 Last Documented On 5 4:09PM ; [facility] Viral hepatitis C Medical Established Patient wi th Vanesa Crouch BOBBIN INSPECTOR 04/06/2024 Last Documented On 5 4:09PM ; [facility] Generalized anxiety disorder Established [place] with Patrica Stone DRY WALL PLASTERER 03/06/2024 Last Documented On 4 5:21PM ; [facility] Methamphetamine dependence - in remission Established Patient with Patrica Stone DRY WALL PLASTERER 03/06/2024 Last Documented On 4 5:21PM ; [facility] Nicotine dependence Established Patient with Patrica Stone DRY WALL PLASTERER 03/06/2024 Last Documented On 4 5:21PM ; [facility] RNDx tobacco abuse Established Patient with M virginia Stone DRY WALL PLASTERER 03/06/2024 Last Documented On 4 5:21PM ; [facility] Severe opioid dependence in sustained remission Established Patient with Patrica Stone DRY WALL PLASTERER 03/06/2024 Last Documented On 4 5:21PM ; [facility] Assessment of body mass index Medical Es tablished Patient with Vanesa Neffick BOBBIN INSPECTOR 03/06/2024 Last Documented On 4 5:06PM ; [facility] Body mass index Medical Established Patient with Vanesa Neffick BOBBIN INSPECTOR 03/06/2024 Last Documented On 4 5:06PM ; [facility] Generalized anxiety disorder Medical Est ablished Patient with Vanesa Neffick BOBBIN INSPECTOR 03/06/2024 Last Documented On 4 5:06PM ; [facility] Nicotine dependence Medical Established Patient with Vanesa Neffick BOBBIN INSPECTOR 03/06/2024 Last Documented On 4 5:06PM ; [facility] Onychomycosis of the toenails Medical Es tablished Patient with Vanesa Crouch BOBBIN INSPECTOR 03/06/2024 Last Documented On 4 5:06PM ; [facility] 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 Medical Established Patient with Vanesa Crouch BOBBIN INSPECTOR 03/06/2024 Last Documented On 4 5:06PM ; [facility] Viral hepatitis C Medical Established Patient wi th Vanesa Crouch [facility] 03/06/2024 Last Documented On 4 5:06PM ; [facility] [Z68.26 - Body mass index [B VT] 26.0-26.9, adult] assessment of body mass index Medical Established Patient with Colette Almaguer [facility] 08/25/2023 Last Documented On 4 8:38AM ; [facility] Assessment of BMI Percentile = 5% to < 85% for age Z68.52 Medical Established Patient with Colette Almaguer [facility] 08/25/2023 Last Documented On 4 8:38AM ; [facility] Nicotine dependence Medical Established Patient with Colette Almaguer [facility] 08/25/2023 Last Documented On 4 8:38AM ; [facility] Oral thrush Medical Established Patient with Colette Almaguer [facility] 08/25/2023 Last Documented On 4 8:38AM ; [facility] Otogenic otalgia of right ear Medical Es tablished Patient with Colette Almaguer [facility] 08/25/2023 Last Documented On 4 8:38AM ; [facility] 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 Medical Established Patient with Colette Almaguer [facility] 08/25/2023 Last Documented On 4 8:38AM ; [facility] Viral hepatitis C Medical Established Patient wi th Colette Almaguer [facility] 08/25/2023 Last Documented On 4 8:38AM ; [facility] Visit for: therapeutic drug monitoring Medical Established Patient with Colette Almaguer [facility] 08/25/2023 Last Documented On 4 8:38AM ; [facility] [Z68.26 - Body mass index [B VT] 26.0-26.9, adult] assessment of body mass index Medical Established Patient with Colette Almaguer [facility] 07/15/2023 Last Documented On 4 8:36AM ; [facility] Nicotine dependence Medical Established Patient with Colettekeo Almaguer [facility] 07/15/2023 Last Documented On 4 8:36AM ; [facility] 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 Medical Established Patient with Colette Almaguer [facility] 07/15/2023 Last Documented On 4 8:36AM ; [facility] Viral hepatitis C Medical Established Patient wi th Colette Almaguer [facility] 07/15/2023 Last Documented On 4 8:36AM ; [facility] Viral hepatitis C Medical Established Patient wi Colette Almaguer [facility] 07/15/2023 Last Documented On 4 8:36AM ; [facility] Visit for: screening for depression [facility] Established Patient with Colette Almaguer [facility] 07/15/2023 Last Documented On 4 8:36AM ; [facility] [Z68.25 - Body mass index [B VT] 25.0-25.9, adult] assessment of body mass index Medical Established Patient with Colette Almaguer [facility] 06/03/2023 Last Documented On 4 9:49AM ; [facility] Nicotine dependence Medical Established Patient with Colette Almaguer [facility] 06/03/2023 Last Documented On 4 9:49AM ; [facility] 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 Medical Established Patient with Colette Almaguer [facility] 06/03/2023 Last Documented On 4 9:49AM ; [facility] Viral hepatitis C Medical Established Patient wi th Colette Almaguer [facility] 06/03/2023 Last Documented On 4 9:49AM ; [facility] Visit for: screening for STD Medical Est ablished Patient with Colette Almaguer [facility] 06/03/2023 Last Documented On 4 9:49AM ; [facility] [Z68.24 - Body mass index [B VT] 24.0-24.9, adult] assessment of body mass index Medical Established Patient with Colettekeo Almaguer [facility] 05/10/2023 Last Documented On 4 8:24AM ; [facility] Generalized anxiety disorder Medical Est ablished Patient with Colette Almaguer [facility] 05/10/2023 Last Documented On 4 8:24AM ; [facility] Nicotine dependence Medical Established Patient with Colette Yevgeniy [facility] 05/10/2023 Last Documented On 4 8:24AM ; [facility] Onychomycosis of the toenails Medical Es tablished Patient with Colettekeo Almaguer [facility] 05/10/2023 Last Documented On 4 8:24AM ; [facility] Otogenic otalgia of right ear Medical Es tablished Patient with Colette Almaguer [facility] 05/10/2023 Last Documented On 4 8:24AM ; [facility] 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 Medical Established Patient with Colette Almaguer [facility] 05/10/2023 Last Documented On 4 8:24AM ; [facility] Viral hepatitis C Medical Established Patient wi th Colette Almaguer [facility] 05/10/2023 Last Documented On 4 8:24AM ; [facility] [Z68.24 - Body mass index [B VT] 24.0-24.9, adult] assessment of body mass index Open Access - Established with Colette Almaguer [facility] 04/26/2023 Last Documented On 4 8:20AM ; [facility] Nicotine dependence Open Access - Established wi Colette Almaguer [facility] 04/26/2023 Last Documented On 4 8:20AM ; [facility] Otogenic otalgia of right ear Open Acces s - Established with Colette Yevgeniy [facility] 04/26/2023 Last Documented On 4 8:20AM ; [facility] 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 Open Access - Established with Colette Yevgeniy [facility] 04/26/2023 Last Documented On 4 8:20AM ; [facility] Generalized anxiety disorder Established [place] ent with Bri WARE 04/12/2023 Last Documented On 4 7:57PM ; [facility] Nicotine dependence BH Established Patient with Bri Barrow DIE MAKER [facility] 04/12/2023 Last Documented On 4 7:57PM ; [facility] [Z68.23 - Body mass index [B VT] 23.0-23.9, adult] assessment of body mass index Medical New Patient with Colette Almaguer [facility] 04/12/2023 Last Documented On 4 8:31AM ; [facility] Acute otitis media of left ear Medical N ew Patient with Colette Almaguer [facility] 04/12/2023 Last Documented On 4 8:31AM ; [facility] Diabetes Risk Test Score was three score 04/12/2023 Medical New Patient with Colette Almaguer [facility] 04/12/2023 Last Documented On 4 8:31AM ; [facility] Nicotine dependence Medical New Patient with Prosper Almaguer [facility] 04/12/2023 Last Documented On 4 8:31AM ; [facility] Screening for HIV Medical New Patient with Francois Almaguer [facility] 04/12/2023 Last Documented On 4 8:31AM ; [facility] Upper respiratory infection Medical New Patient with Colette Almaguer [facility] 04/12/2023 Last Documented On 4 8:31AM ; [facility] Visit for: screening for dig estive system disorders Medical New Patient with Colette Almaguer [facility] 04/12/2023 Last Documented On 4 8:31AM ; [facility] Work Phone: [phone]) 312-123701-30-2025 Evaluation note Includes: Assessments for all patient encounters Findings Encounter Date [Z68.26 - Body mass index [B VT] 26.0-26.9, adult] assessment of body mass index Medical Established Patient with Vanesa Crouch [facility] 04/06/2024 Last Documented On 5 3:04PM ; [facility] Generalized anxiety disorder Medical Est ablished Patient with Vanesa Crouch [facility] 04/06/2024 Last Documented On 5 3:04PM ; [facility] Methamphetamine dependence - in remission Medical Established Patient with Vanesa Crouch [facility] 04/06/2024 Last Documented On 5 3:04PM ; [facility] Nicotine dependence Medical Established Patient with Vanesa Neffick BOBBIN INSPECTOR 04/06/2024 Last Documented On 5 3:04PM ; [facility] Opioid dependence in remission Medical E stablished Patient with Vanesa Neffick BOBBIN INSPECTOR 04/06/2024 Last Documented On 5 3:04PM ; [facility] 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 Medical Established Patient with Vanesa Neffick BOBBIN INSPECTOR 04/06/2024 Last Documented On 5 3:04PM ; [facility] Venipuncture was performed Medical Estab lished Patient with Vanesa Neffick BOBBIN INSPECTOR 04/06/2024 Last Documented On 5 3:04PM ; [facility] Viral hepatitis C Medical Established Patient wi th Vanesa Crouch BOBBIN INSPECTOR 04/06/2024 Last Documented On 5 3:04PM ; [facility] Generalized anxiety disorder BH Established [place] ent with Patrica Stone DRY WALL PLASTERER 03/06/2024 Last Documented On 4 5:21PM ; [facility] Methamphetamine dependence - in remission Established Patient with Patrica Stone DRY WALL PLASTERER 03/06/2024 Last Documented On 4 5:21PM ; [facility] Nicotine dependence Established Patient with Patrica Stone DRY WALL PLASTERER 03/06/2024 Last Documented On 4 5:21PM ; [facility] RNDx tobacco abuse Established Patient with M virginia Stone DRY WALL PLASTERER 03/06/2024 Last Documented On 4 5:21PM ; [facility] Severe opioid dependence in sustained remission Established Patient with Patrica Stone DRY WALL PLASTERER 03/06/2024 Last Documented On 4 5:21PM ; [facility] Assessment of body mass index Medical Es tablished Patient with Vanesa Neffick BOBBIN INSPECTOR 03/06/2024 Last Documented On 4 5:06PM ; [facility] Body mass index Medical Established Patient with Vanesa Neffick BOBBIN INSPECTOR 03/06/2024 Last Documented On 4 5:06PM ; [facility] Generalized anxiety disorder Medical Est ablished Patient with Vanesa Crouch BOBBIN INSPECTOR 03/06/2024 Last Documented On 4 5:06PM ; [facility] Nicotine dependence Medical Established Patient with Vanesa Crouch BOBBIN INSPECTOR 03/06/2024 Last Documented On 4 5:06PM ; [facility] Onychomycosis of the toenails Medical Es tablished Patient with Vanesa Crouch BOBBIN INSPECTOR 03/06/2024 Last Documented On 4 5:06PM ; [facility] 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 Medical Established Patient with Vanesa Crouch BOBBIN INSPECTOR 03/06/2024 Last Documented On 4 5:06PM ; [facility] Viral hepatitis C Medical Established Patient wi th Vanesa Crouch BOBBIN INSPECTOR 03/06/2024 Last Documented On 4 5:06PM ; [facility] [Z68.26 - Body mass index [B VT] 26.0-26.9, adult] assessment of body mass index Medical Established Patient with Colette Almaguer [facility] 08/25/2023 Last Documented On 4 8:38AM ; [facility] Assessment of BMI Percentile = 5% to < 85% for age Z68.52 Medical Established Patient with Colette Almaguer [facility] 08/25/2023 Last Documented On 4 8:38AM ; [facility] Nicotine dependence Medical Established Patient with Colette Almaguer [facility] 08/25/2023 Last Documented On 4 8:38AM ; [facility] Oral thrush Medical Established Patient with Colette Almaguer [facility] 08/25/2023 Last Documented On 4 8:38AM ; [facility] Otogenic otalgia of right ear Medical Es tablished Patient with Colette Almaguer [facility] 08/25/2023 Last Documented On 4 8:38AM ; [facility] 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 Medical Established Patient with Colette Almaguer [facility] 08/25/2023 Last Documented On 4 8:38AM ; [facility] Viral hepatitis C Medical Established Patient wi th Colette Almaguer [facility] 08/25/2023 Last Documented On 4 8:38AM ; [facility] Visit for: therapeutic drug monitoring Medical Established Patient with Colette Almaguer [facility] 08/25/2023 Last Documented On 4 8:38AM ; [facility] [Z68.26 - Body mass index [B VT] 26.0-26.9, adult] assessment of body mass index Medical Established Patient with Colette Almaguer [facility] 07/15/2023 Last Documented On 4 8:36AM ; [facility] Nicotine dependence Medical Established Patient with Colette Almaguer [facility] 07/15/2023 Last Documented On 4 8:36AM ; [facility] 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 Medical Established Patient with Colette Almaguer [facility] 07/15/2023 Last Documented On 4 8:36AM ; [facility] Viral hepatitis C Medical Established Patient wi th Colette Almaguer [facility] 07/15/2023 Last Documented On 4 8:36AM ; [facility] Viral hepatitis C Medical Established Patient wi th Colette Almaguer [facility] 07/15/2023 Last Documented On 4 8:36AM ; [facility] Visit for: screening for depression [facility] Established Patient with Colette Almaguer [facility] 07/15/2023 Last Documented On 4 8:36AM ; [facility] [Z68.25 - Body mass index [B VT] 25.0-25.9, adult] assessment of body mass index Medical Established Patient with Colette Almaguer [facility] 06/03/2023 Last Documented On 4 9:49AM ; [facility] Nicotine dependence Medical Established Patient with Colette Almaguer [facility] 06/03/2023 Last Documented On 4 9:49AM ; [facility] 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 Medical Established Patient with Colette Almaguer [facility] 06/03/2023 Last Documented On 4 9:49AM ; [facility] Viral hepatitis C Medical Established Patient wi th Colette Almaguer [facility] 06/03/2023 Last Documented On 4 9:49AM ; [facility] Visit for: screening for STD Medical Est ablished Patient with Colette Almaguer [facility] 06/03/2023 Last Documented On 4 9:49AM ; [facility] [Z68.24 - Body mass index [B VT] 24.0-24.9, adult] assessment of body mass index Medical Established Patient with Colette Almaguer [facility] 05/10/2023 Last Documented On 4 8:24AM ; [facility] Generalized anxiety disorder Medical Est ablished Patient with Colette Almaguer [facility] 05/10/2023 Last Documented On 4 8:24AM ; [facility] Nicotine dependence Medical Established Patient with Colette Yevgeniy [facility] 05/10/2023 Last Documented On 4 8:24AM ; [facility] Onychomycosis of the toenails Medical Es tablished Patient with Colette Almaguer [facility] 05/10/2023 Last Documented On 4 8:24AM ; [facility] Otogenic otalgia of right ear Medical Es tablished Patient with Colette Almaguer [facility] 05/10/2023 Last Documented On 4 8:24AM ; [facility] 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 Medical Established Patient with Colette Almaguer [facility] 05/10/2023 Last Documented On 4 8:24AM ; [facility] Viral hepatitis C Medical Established Patient wi th Colette Almaguer [facility] 05/10/2023 Last Documented On 4 8:24AM ; [facility] [Z68.24 - Body mass index [B VT] 24.0-24.9, adult] assessment of body mass index Open Access - Established with Colette Almaguer [facility] 04/26/2023 Last Documented On 4 8:20AM ; [facility] Nicotine dependence Open Access - Established wi th Colette Almaguer [facility] 04/26/2023 Last Documented On 4 8:20AM ; [facility] Otogenic otalgia of right ear Open Acces s - Established with Colette Yevgeniy [facility] 04/26/2023 Last Documented On 4 8:20AM ; [facility] 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 Open Access - Established with Colette Almaguer [facility] 04/26/2023 Last Documented On 4 8:20AM ; [facility] Generalized anxiety disorder Established [place] ent with Bri Barrow D[employer]KER [employer] 04/12/2023 Last Documented On 4 7:57PM ; [facility] Nicotine dependence Established Patient with Bri Barrow [employer]KER [employer] 04/12/2023 Last Documented On 4 7:57PM ; [facility] [Z68.23 - Body mass index [B VT] 23.0-23.9, adult] assessment of body mass index Medical New Patient with Colette Almaguer [facility] 04/12/2023 Last Documented On 4 8:31AM ; [facility] Acute otitis media of left ear Medical N ew Patient with Colette Almaguer [facility] 04/12/2023 Last Documented On 4 8:31AM ; [facility] Diabetes Risk Test Score was three score 04/12/2023 Medical New Patient with Colette Almaguer [facility] 04/12/2023 Last Documented On 4 8:31AM ; [facility] Nicotine dependence Medical New Patient with Prosper Almaguer [facility] 04/12/2023 Last Documented On 4 8:31AM ; [facility] Screening for HIV Medical New Patient with Francois Almaguer [facility] 04/12/2023 Last Documented On 4 8:31AM ; [facility] Upper respiratory infection Medical New Patient with Colette Almaguer [facility] 04/12/2023 Last Documented On 4 8:31AM ; [facility] Visit for: screening for dig estive system disorders Medical New Patient with Colette Almaguer [facility] 04/12/2023 Last Documented On 4 8:31AM ; [facility] Work Phone: 1(336) 241-825701-30-2025 Evaluation note Includes: Assessments for all patient encounters Findings Encounter Date Generalized anxiety disorder Established [place] ent with Bri Barrow D[employer] MAKER [employer] 04/06/2024 Last Documented On 5 5:58PM ; [facility] Nicotine dependence Established Patient with Bri Barrow DIE MAKER [employer] 04/06/2024 Last Documented On 5 5:58PM ; [facility] [Z68.26 - Body mass index [B VT] 26.0-26.9, adult] assessment of body mass index Medical Established Patient with Vanesa Neffick BOBBIN INSPECTOR 04/06/2024 Last Documented On 5 3:04PM ; [facility] Generalized anxiety disorder Medical Est ablished Patient with Vanesa Jules BOBBIN INSPECTOR 04/06/2024 Last Documented On 5 3:04PM ; [facility] Methamphetamine dependence - in remission Medical Established Patient with Vanesa Jules BOBBIN INSPECTOR 04/06/2024 Last Documented On 5 3:04PM ; [facility] Nicotine dependence Medical Established Patient with Vanesa Jules BOBBIN INSPECTOR 04/06/2024 Last Documented On 5 3:04PM ; [facility] Opioid dependence in remission Medical E stablished Patient with Vanesa Jules BOBBIN INSPECTOR 04/06/2024 Last Documented On 5 3:04PM ; [facility] 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 Medical Established Patient with Vanesa Jules BOBBIN INSPECTOR 04/06/2024 Last Documented On 5 3:04PM ; [facility] Venipuncture was performed Medical Estab lished Patient with Vanesa Jules BOBBIN INSPECTOR 04/06/2024 Last Documented On 5 3:04PM ; [facility] Viral hepatitis C Medical Established Patient wi th Vanesa Crouch BOBBIN INSPECTOR 04/06/2024 Last Documented On 5 3:04PM ; [facility] Generalized anxiety disorder Established [place] ent with Patrica Stone DRY WALL PLASTERER 03/06/2024 Last Documented On 4 5:21PM ; [facility] Methamphetamine dependence - in remission BH Established Patient with Patrica Stone DRY WALL PLASTERER 03/06/2024 Last Documented On 4 5:21PM ; [facility] Nicotine dependence Established Patient with Patrica Stone DRY WALL PLASTERER 03/06/2024 Last Documented On 4 5:21PM ; [facility] RNDx tobacco abuse Established Patient with M eghan Stone DRY WALL PLASTERER 03/06/2024 Last Documented On 4 5:21PM ; [facility] Severe opioid dependence in sustained remission BH Established Patient with Patrica Quarles DRY WALL PLASTERER 03/06/2024 Last Documented On 4 5:21PM ; [facility] Assessment of body mass index Medical Es tablished Patient with Vanesa Neffick BOBBIN INSPECTOR 03/06/2024 Last Documented On 4 5:06PM ; [facility] Body mass index Medical Established Patient with Vanesa Neffick BOBBIN INSPECTOR 03/06/2024 Last Documented On 4 5:06PM ; [facility] Generalized anxiety disorder Medical Est ablished Patient with Vanesa Neffick BOBBIN INSPECTOR 03/06/2024 Last Documented On 4 5:06PM ; [facility] Nicotine dependence Medical Established Patient with Vanesa Ledezmaderick BOBBIN INSPECTOR 03/06/2024 Last Documented On 4 5:06PM ; [facility] Onychomycosis of the toenails Medical Es tablished Patient with Vanesa Ledezmaderick BOBBIN INSPECTOR 03/06/2024 Last Documented On 4 5:06PM ; [facility] 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 Medical Established Patient with Vanesa Ledezmaderick BOBBIN INSPECTOR 03/06/2024 Last Documented On 4 5:06PM ; [facility] Viral hepatitis C Medical Established Patient wi th Vanesa Crouch BOBBIN INSPECTOR 03/06/2024 Last Documented On 4 5:06PM ; [facility] [Z68.26 - Body mass index [B VT] 26.0-26.9, adult] assessment of body mass index Medical Established Patient with Colette Almaguer [facility] 08/25/2023 Last Documented On 4 8:38AM ; [facility] Assessment of BMI Percentile = 5% to < 85% for age Z68.52 Medical Established Patient with Colette Almaguer [facility] 08/25/2023 Last Documented On 4 8:38AM ; [facility] Nicotine dependence Medical Established Patient with Colette Almaguer [facility] 08/25/2023 Last Documented On 4 8:38AM ; [facility] Oral thrush Medical Established Patient with Colette Almaguer [facility] 08/25/2023 Last Documented On 4 8:38AM ; [facility] Otogenic otalgia of right ear Medical Es tablished Patient with Colette Almaguer [facility] 08/25/2023 Last Documented On 4 8:38AM ; [facility] 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 Medical Established Patient with Colette Almaguer [facility] 08/25/2023 Last Documented On 4 8:38AM ; [facility] Viral hepatitis C Medical Established Patient wi th Colette Almaguer [facility] 08/25/2023 Last Documented On 4 8:38AM ; [facility] Visit for: therapeutic drug monitoring Medical Established Patient with Colette Almaguer [facility] 08/25/2023 Last Documented On 4 8:38AM ; [facility] [Z68.26 - Body mass index [B VT] 26.0-26.9, adult] assessment of body mass index Medical Established Patient with Colette Almaguer [facility] 07/15/2023 Last Documented On 4 8:36AM ; [facility] Nicotine dependence Medical Established Patient with Colette Almaguer [facility] 07/15/2023 Last Documented On 4 8:36AM ; [facility] 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 Medical Established Patient with Colette Almaguer [facility] 07/15/2023 Last Documented On 4 8:36AM ; [facility] Viral hepatitis C Medical Established Patient wi th Colette Almaguer [facility] 07/15/2023 Last Documented On 4 8:36AM ; [facility] Viral hepatitis C Medical Established Patient wi th Colette Almaguer [facility] 07/15/2023 Last Documented On 4 8:36AM ; [facility] Visit for: screening for depression [facility] Established Patient with Colette Almaguer [facility] 07/15/2023 Last Documented On 4 8:36AM ; [facility] [Z68.25 - Body mass index [B VT] 25.0-25.9, adult] assessment of body mass index Medical Established Patient with Colette Almaguer [facility] 06/03/2023 Last Documented On 4 9:49AM ; [facility] Nicotine dependence Medical Established Patient with Colette Almaguer [facility] 06/03/2023 Last Documented On 4 9:49AM ; [facility] 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 Medical Established Patient with Colette Almaguer [facility] 06/03/2023 Last Documented On 4 9:49AM ; [facility] Viral hepatitis C Medical Established Patient wi th Colette Almaguer [facility] 06/03/2023 Last Documented On 4 9:49AM ; [facility] Visit for: screening for STD Medical Est ablished Patient with Colette Almaguer [facility] 06/03/2023 Last Documented On 4 9:49AM ; [facility] [Z68.24 - Body mass index [B VT] 24.0-24.9, adult] assessment of body mass index Medical Established Patient with Colette Almaguer [facility] 05/10/2023 Last Documented On 4 8:24AM ; [facility] Generalized anxiety disorder Medical Est ablished Patient with Colette Almaguer [facility] 05/10/2023 Last Documented On 4 8:24AM ; [facility] Nicotine dependence Medical Established Patient with Colette Almaguer [facility] 05/10/2023 Last Documented On 4 8:24AM ; [facility] Onychomycosis of the toenails Medical Es tablished Patient with Colette Almaguer [facility] 05/10/2023 Last Documented On 4 8:24AM ; [facility] Otogenic otalgia of right ear Medical Es tablished Patient with Colette Almaguer [facility] 05/10/2023 Last Documented On 4 8:24AM ; [facility] 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 Medical Established Patient with Colette Almaguer [facility] 05/10/2023 Last Documented On 4 8:24AM ; [facility] Viral hepatitis C Medical Established Patient wi th Colette Almaguer [facility] 05/10/2023 Last Documented On 4 8:24AM ; [facility] [Z68.24 - Body mass index [B VT] 24.0-24.9, adult] assessment of body mass index Open Access - Established with Colette Almaguer [facility] 04/26/2023 Last Documented On 4 8:20AM ; [facility] Nicotine dependence Open Access - Established wi th Colette Almaguer [facility] 04/26/2023 Last Documented On 4 8:20AM ; [facility] Otogenic otalgia of right ear Open Acces s - Established with Colette Yevgeniy [facility] 04/26/2023 Last Documented On 4 8:20AM ; [facility] 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 Open Access - Established with Colette Yevgeniy [facility] 04/26/2023 Last Documented On 4 8:20AM ; [facility] Generalized anxiety disorder BH Established [place] ent with Brinatalie Barrow [facility] 04/12/2023 Last Documented On 4 7:57PM ; [facility] Nicotine dependence BH Established Patient with Bri Barrow [facility] 04/12/2023 Last Documented On 4 7:57PM ; [facility] [Z68.23 - Body mass index [B VT] 23.0-23.9, adult] assessment of body mass index Medical New Patient with Colette Almaguer [facility] 04/12/2023 Last Documented On 4 8:31AM ; [facility] Acute otitis media of left ear Medical N ew Patient with Colette Almaguer [facility] 04/12/2023 Last Documented On 4 8:31AM ; [facility] Diabetes Risk Test Score was three score 04/12/2023 Medical New Patient with Colette Almaguer [facility] 04/12/2023 Last Documented On 4 8:31AM ; [facility] Nicotine dependence Medical New Patient with Prosper best Yevgeniy [facility] 04/12/2023 Last Documented On 4 8:31AM ; [facility] Screening for HIV Medical New Patient with Francois Almaguer [facility] 04/12/2023 Last Documented On 4 8:31AM ; [facility] Upper respiratory infection Medical New Patient with Colette Almaguer [facility] 04/12/2023 Last Documented On 4 8:31AM ; [facility] Visit for: screening for dig estive system disorders Medical New Patient with Colette Almaguer [facility] 04/12/2023 Last Documented On 4 8:31AM ; [facility] Work Phone: 1(214) 586-386501-30-2025 Evaluation note Includes: Assessments for all patient encounters Findings Encounter Date Generalized anxiety disorder BH Established [place] ent with Bri Barrow [employer] 04/06/2024 Last Documented On 5 5:59PM ; [facility] Nicotine dependence BH Established Patient with Bri Barrow [facility] 04/06/2024 Last Documented On 5 5:59PM ; [facility] [Z68.26 - Body mass index [B VT] 26.0-26.9, adult] assessment of body mass index Medical Established Patient with Vanesa Jules [employer] 04/06/2024 Last Documented On 5 3:04PM ; [facility] Generalized anxiety disorder Medical Est ablished Patient with Vanesa Jules [employer] 04/06/2024 Last Documented On 5 3:04PM ; [facility] Methamphetamine dependence - in remission Medical Established Patient with Vanesa Jules [employer] 04/06/2024 Last Documented On 5 3:04PM ; [facility] Nicotine dependence Medical Established Patient with Vanesa Jules [employer] 04/06/2024 Last Documented On 5 3:04PM ; [facility] Opioid dependence in remission Medical E stablished Patient with Vanesa Jules [employer] 04/06/2024 Last Documented On 5 3:04PM ; [facility] 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 Medical Established Patient with Vanesa Jules [employer] INS[employer] 04/06/2024 Last Documented On 5 3:04PM ; [facility] Venipuncture was performed Medical Estab lished Patient with Vanesa Jules [employer] INS[employer] 04/06/2024 Last Documented On 5 3:04PM ; [facility] Viral hepatitis C Medical Established Patient wi th Vanesa Crouch [employer] INSPECT[employer] 04/06/2024 Last Documented On 5 3:04PM ; [facility] Generalized anxiety disorder BH Established [place] ent with Patrica Stone [employer] P[employer]ER[employer] 03/06/2024 Last Documented On 4 5:21PM ; [facility] Methamphetamine dependence - in remission BH Established Patient with Patrica Stone [employer] 03/06/2024 Last Documented On 4 5:21PM ; [facility] Nicotine dependence BH Established Patient with Patrica Stone [employer] 03/06/2024 Last Documented On 4 5:21PM ; [facility] RNDx tobacco abuse BH Established Patient with M virginia Stone [employer] P[employer] 03/06/2024 Last Documented On 4 5:21PM ; [facility] Severe opioid dependence in sustained remission Established Patient with Patrica Stone [employer] 03/06/2024 Last Documented On 4 5:21PM ; [facility] Assessment of body mass index Medical Es tablished Patient with Vanesa Ledezmaderick [employer] INSPECT[employer] 03/06/2024 Last Documented On 4 5:06PM ; [facility] Body mass index Medical Established Patient with Vanesa Jules [employer] INS[employer] 03/06/2024 Last Documented On 4 5:06PM ; [facility] Generalized anxiety disorder Medical Est ablished Patient with Vanesa Jules [employer] INSPECT[employer] 03/06/2024 Last Documented On 4 5:06PM ; [facility] Nicotine dependence Medical Established Patient with Vanesa Jules [employer] INS[employer] 03/06/2024 Last Documented On 4 5:06PM ; [facility] Onychomycosis of the toenails Medical Es tablished Patient with Vanesa Jules [employer] INSPECT[employer] 03/06/2024 Last Documented On 4 5:06PM ; [facility] 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 Medical Established Patient with Vanesa Ledezmaderick [employer] INS[employer] 03/06/2024 Last Documented On 4 5:06PM ; [facility] Viral hepatitis C Medical Established Patient wi th Vanesa Crouch [employer] INSPECTOR 03/06/2024 Last Documented On 4 5:06PM ; [facility] [Z68.26 - Body mass index [B VT] 26.0-26.9, adult] assessment of body mass index Medical Established Patient with Colette Almaguer [facility] 08/25/2023 Last Documented On 4 8:38AM ; [facility] Assessment of BMI Percentile = 5% to < 85% for age Z68.52 Medical Established Patient with Colette Yevgeniy [facility] 08/25/2023 Last Documented On 4 8:38AM ; [facility] Nicotine dependence Medical Established Patient with Colette Yevgeniy [facility] 08/25/2023 Last Documented On 4 8:38AM ; [facility] Oral thrush Medical Established Patient with Colette Yevgeniy [facility] 08/25/2023 Last Documented On 4 8:38AM ; [facility] Otogenic otalgia of right ear Medical Es tablished Patient with Colette Yevgeniy [facility] 08/25/2023 Last Documented On 4 8:38AM ; [facility] 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 Medical Established Patient with Colette Yevgeniy [facility] 08/25/2023 Last Documented On 4 8:38AM ; [facility] Viral hepatitis C Medical Established Patient wi th Colette Almaguer [facility] 08/25/2023 Last Documented On 4 8:38AM ; [facility] Visit for: therapeutic drug monitoring Medical Established Patient with Colette Almaguer [facility] 08/25/2023 Last Documented On 4 8:38AM ; [facility] [Z68.26 - Body mass index [B VT] 26.0-26.9, adult] assessment of body mass index Medical Established Patient with Colette Yevgeniy [facility] 07/15/2023 Last Documented On 4 8:36AM ; [facility] Nicotine dependence Medical Established Patient with Colette Yevgeniy [facility] 07/15/2023 Last Documented On 4 8:36AM ; [facility] 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 Medical Established Patient with Colette Yevgeniy [facility] 07/15/2023 Last Documented On 4 8:36AM ; [facility] Viral hepatitis C Medical Established Patient wi th Colette Almaguer [facility] 07/15/2023 Last Documented On 4 8:36AM ; [facility] Viral hepatitis C Medical Established Patient wi th Colette Almaguer [facility] 07/15/2023 Last Documented On 4 8:36AM ; [facility] Visit for: screening for depression [facility] susanne Established Patient with Colette Almaguer [facility] 07/15/2023 Last Documented On 4 8:36AM ; [facility] [Z68.25 - Body mass index [B VT] 25.0-25.9, adult] assessment of body mass index Medical Established Patient with Colette Almaguer [facility] 06/03/2023 Last Documented On 4 9:49AM ; [facility] Nicotine dependence Medical Established Patient with Colette Almaguer [facility] 06/03/2023 Last Documented On 4 9:49AM ; [facility] 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 Medical Established Patient with Colette Almaguer [facility] 06/03/2023 Last Documented On 4 9:49AM ; [facility] Viral hepatitis C Medical Established Patient wi th Colette Almaguer [facility] 06/03/2023 Last Documented On 4 9:49AM ; [facility] Visit for: screening for STD Medical Est ablished Patient with Colette Almaguer [facility] 06/03/2023 Last Documented On 4 9:49AM ; [facility] [Z68.24 - Body mass index [B VT] 24.0-24.9, adult] assessment of body mass index Medical Established Patient with Colette Almaguer [facility] 05/10/2023 Last Documented On 4 8:24AM ; [facility] Generalized anxiety disorder Medical Est ablished Patient with Colette Almaguer [facility] 05/10/2023 Last Documented On 4 8:24AM ; [facility] Nicotine dependence Medical Established Patient with Colette Yevgeniy [facility] 05/10/2023 Last Documented On 4 8:24AM ; [facility] Onychomycosis of the toenails Medical Es tablished Patient with Colette Almaguer [facility] 05/10/2023 Last Documented On 4 8:24AM ; [facility] Otogenic otalgia of right ear Medical Es tablished Patient with Colette Almaguer [facility] 05/10/2023 Last Documented On 4 8:24AM ; [facility] 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 Medical Established Patient with Colette Almaguer [facility] 05/10/2023 Last Documented On 4 8:24AM ; [facility] Viral hepatitis C Medical Established Patient wi th Colette Almaguer [facility] 05/10/2023 Last Documented On 4 8:24AM ; [facility] [Z68.24 - Body mass index [B VT] 24.0-24.9, adult] assessment of body mass index Open Access - Established with Colette Almaguer [facility] 04/26/2023 Last Documented On 4 8:20AM ; [facility] Nicotine dependence Open Access - Established [facility] Colette Almaguer [facility] 04/26/2023 Last Documented On 4 8:20AM ; [facility] Otogenic otalgia of right ear Open Acces s - Established with Colette Almaguer [facility] 04/26/2023 Last Documented On 4 8:20AM ; [facility] 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 Open Access - Established with Colette Almaguer [facility] 04/26/2023 Last Documented On 4 8:20AM ; [facility] Generalized anxiety disorder BH Established [place] ent with Bri Barrow [employer] 04/12/2023 Last Documented On 4 7:57PM ; [facility] Nicotine dependence BH Established Patient with Bri Barrow [employer] 04/12/2023 Last Documented On 4 7:57PM ; [facility] [Z68.23 - Body mass index [B VT] 23.0-23.9, adult] assessment of body mass index Medical New Patient with Colette Almaguer [facility] 04/12/2023 Last Documented On 4 8:31AM ; [facility] Acute otitis media of left ear Medical N ew Patient with Colette Almaguer [facility] 04/12/2023 Last Documented On 4 8:31AM ; [facility] Diabetes Risk Test Score was three score 04/12/2023 Medical New Patient with Colette Almaguer [facility] 04/12/2023 Last Documented On 4 8:31AM ; [facility] Nicotine dependence Medical New Patient with Prosper Almaguer [facility] 04/12/2023 Last Documented On 4 8:31AM ; [facility] Screening for HIV Medical New Patient with Francois Almaguer [facility] 04/12/2023 Last Documented On 4 8:31AM ; [facility] Upper respiratory infection Medical New Patient with Colette Almaguer [facility] 04/12/2023 Last Documented On 4 8:31AM ; [facility] Visit for: screening for dig estive system disorders Medical New Patient with Colette Almaguer [facility] 04/12/2023 Last Documented On 4 8:31AM ; [facility] Work Phone: 1(129) 231-488701-30-2025 Evaluation note Includes: Assessments for all patient encounters Findings Encounter Date Generalized anxiety disorder Established [place] ent with Bri Barrow [employer] 04/06/2024 Last Documented On 5 5:59PM ; [facility] Nicotine dependence BH Established Patient with Bri Barrow [employer] 04/06/2024 Last Documented On 5 5:59PM ; [facility] [Z68.26 - Body mass index [B VT] 26.0-26.9, adult] assessment of body mass index Medical Established Patient with Vanesatray Crouch [employer] INSPECTOR 04/06/2024 Last Documented On 5 3:04PM ; [facility] Generalized anxiety disorder Medical Est ablished Patient with Vansea Ledezmaderick BOBBIN INSPECTOR 04/06/2024 Last Documented On 5 3:04PM ; [facility] Methamphetamine dependence - in remission Medical Established Patient with Vanesatray Neffick BOBBIN INSPECTOR 04/06/2024 Last Documented On 5 3:04PM ; [facility] Nicotine dependence Medical Established Patient with Vanesa Jules BOBBIN INSPECTOR 04/06/2024 Last Documented On 5 3:04PM ; [facility] Opioid dependence in remission Medical E stablished Patient with Vanesa Neffick [employer] INSPECTOR 04/06/2024 Last Documented On 5 3:04PM ; [facility] 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 Medical Established Patient with Vanesa Neffick BOBBIN INSPECTOR 04/06/2024 Last Documented On 5 3:04PM ; [facility] Venipuncture was performed Medical Estab lished Patient with Vanesa Neffick BOBBIN INSPECTOR 04/06/2024 Last Documented On 5 3:04PM ; [facility] Viral hepatitis C Medical Established Patient wi th Vanesa Crouch BOBBIN INSPECTOR 04/06/2024 Last Documented On 5 3:04PM ; [facility] Generalized anxiety disorder Established [place] ent with Patrica Stone [employer] WALL PLASTERER 03/06/2024 Last Documented On 4 5:21PM ; [facility] Methamphetamine dependence - in remission Established Patient with Patrica Stone [employer]Y WALL PLASTERER 03/06/2024 Last Documented On 4 5:21PM ; [facility] Nicotine dependence Established Patient with Patrica Stone [employer]Y WALL PLASTERER 03/06/2024 Last Documented On 4 5:21PM ; [facility] RNDx tobacco abuse Established Patient with M virginia Stone DRY WALL PLASTERER 03/06/2024 Last Documented On 4 5:21PM ; [facility] Severe opioid dependence in sustained remission Established Patient with Patrica Stone [employer] WALL PLASTERER 03/06/2024 Last Documented On 4 5:21PM ; [facility] Assessment of body mass index Medical Es tablished Patient with Vanesa Neffick [employer] INSPECTOR 03/06/2024 Last Documented On 4 5:06PM ; [facility] Body mass index Medical Established Patient with Vanesa Jules BOB[employer] INSPECTOR 03/06/2024 Last Documented On 4 5:06PM ; [facility] Generalized anxiety disorder Medical Est ablished Patient with Vanesa Neffick [employer] INSPECTOR 03/06/2024 Last Documented On 4 5:06PM ; [facility] Nicotine dependence Medical Established Patient with Vanesa Crouch B[employer] INSPECTOR 03/06/2024 Last Documented On 4 5:06PM ; [facility] Onychomycosis of the toenails Medical Es tablished Patient with Vanesa Crouch B[employer] INSPECTOR 03/06/2024 Last Documented On 4 5:06PM ; [facility] 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 Medical Established Patient with Vanesa Crouch BOBBIN INSPECTOR 03/06/2024 Last Documented On 4 5:06PM ; [facility] Viral hepatitis C Medical Established Patient wi th Vanesa Crouch BOBBIN INSPECTOR 03/06/2024 Last Documented On 4 5:06PM ; [facility] [Z68.26 - Body mass index [B VT] 26.0-26.9, adult] assessment of body mass index Medical Established Patient with Colette Almaguer [facility] 08/25/2023 Last Documented On 4 8:38AM ; [facility] Assessment of BMI Percentile = 5% to < 85% for age Z68.52 Medical Established Patient with Colette Almaguer [facility] 08/25/2023 Last Documented On 4 8:38AM ; [facility] Nicotine dependence Medical Established Patient with Colette Almaguer [facility] 08/25/2023 Last Documented On 4 8:38AM ; [facility] Oral thrush Medical Established Patient with Colette Almaguer [facility] 08/25/2023 Last Documented On 4 8:38AM ; [facility] Otogenic otalgia of right ear Medical Es tablished Patient with Colette Almaguer [facility] 08/25/2023 Last Documented On 4 8:38AM ; [facility] 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 Medical Established Patient with Colettekeo Almaguer [facility] 08/25/2023 Last Documented On 4 8:38AM ; [facility] Viral hepatitis C Medical Established Patient wi th Colette Almaguer [facility] 08/25/2023 Last Documented On 4 8:38AM ; [facility] Visit for: therapeutic drug monitoring Medical Established Patient with Colette Yevgeniy [facility] 08/25/2023 Last Documented On 4 8:38AM ; [facility] [Z68.26 - Body mass index [B VT] 26.0-26.9, adult] assessment of body mass index Medical Established Patient with Colette Almaguer [facility] 07/15/2023 Last Documented On 4 8:36AM ; [facility] Nicotine dependence Medical Established Patient with Colette Almaguer [facility] 07/15/2023 Last Documented On 4 8:36AM ; [facility] 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 Medical Established Patient with Colette Almaguer [facility] 07/15/2023 Last Documented On 4 8:36AM ; [facility] Viral hepatitis C Medical Established Patient wi th Colette Almaguer [facility] 07/15/2023 Last Documented On 4 8:36AM ; [facility] Viral hepatitis C Medical Established Patient wi th Colette Almaguer [facility] 07/15/2023 Last Documented On 4 8:36AM ; [facility] Visit for: screening for depression [facility] Established Patient with Colette Almaguer [facility] 07/15/2023 Last Documented On 4 8:36AM ; [facility] [Z68.25 - Body mass index [B VT] 25.0-25.9, adult] assessment of body mass index Medical Established Patient with Colette Almaguer [facility] 06/03/2023 Last Documented On 4 9:49AM ; [facility] Nicotine dependence Medical Established Patient with Colette Almaguer [facility] 06/03/2023 Last Documented On 4 9:49AM ; [facility] 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 Medical Established Patient with Colette Almaguer [facility] 06/03/2023 Last Documented On 4 9:49AM ; [facility] Viral hepatitis C Medical Established Patient wi th Colette Almaguer [facility] 06/03/2023 Last Documented On 4 9:49AM ; [facility] Visit for: screening for STD Medical Est ablished Patient with Colette Almaguer [facility] 06/03/2023 Last Documented On 4 9:49AM ; [facility] [Z68.24 - Body mass index [B VT] 24.0-24.9, adult] assessment of body mass index Medical Established Patient with Colette [facility] 05/10/2023 Last Documented On 4 8:24AM ; [facility] Generalized anxiety disorder Medical Est ablished Patient with Colette [facility]evgeniy [facility] 05/10/2023 Last Documented On 4 8:24AM ; [facility] Nicotine dependence Medical Established Patient with [facility] 05/10/2023 Last Documented On 4 8:24AM ; [facility] Onychomycosis of the toenails Medical Es tablished Patient with [facility] 05/10/2023 Last Documented On 4 8:24AM ; [facility] Otogenic otalgia of right ear Medical Es tablished Patient with Co[facility] 05/10/2023 Last Documented On 4 8:24AM ; [facility] 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 Medical Established Patient with Co[facility] 05/10/2023 Last Documented On 4 8:24AM ; [facility] Viral hepatitis C Medical Established Patient wi th Colette [facility]mag[facility] 05/10/2023 Last Documented On 4 8:24AM ; [facility] [Z68.24 - Body mass index [B VT] 24.0-24.9, adult] assessment of body mass index Open Access - Established with [facility] 04/26/2023 Last Documented On 4 8:20AM ; [facility] Nicotine dependence Open Access - Established wi th Colette [facility] 04/26/2023 Last Documented On 4 8:20AM ; [facility] Otogenic otalgia of right ear Open Acces s - Established with Co[facility] 04/26/2023 Last Documented On 4 8:20AM ; [facility] 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 Open Access - Established with Co[facility] 04/26/2023 Last Documented On 4 8:20AM ; [facility] Generalized anxiety disorder BH Established [place] ent with Bri Barrow [facility] 04/12/2023 Last Documented On 4 7:57PM ; [facility] Nicotine dependence BH Established Patient with Bri Barrow [facility] 04/12/2023 Last Documented On 4 7:57PM ; [facility] [Z68.23 - Body mass index [B VT] 23.0-23.9, adult] assessment of body mass index Medical New Patient with [facility] 04/12/2023 Last Documented On 4 8:31AM ; [facility] Acute otitis media of left ear Medical N ew Patient with Co[facility] 04/12/2023 Last Documented On 4 8:31AM ; [facility] Diabetes Risk Test Score was three score 04/12/2023 Medical New Patient with Co[facility] 04/12/2023 Last Documented On 4 8:31AM ; [facility] Nicotine dependence Medical New Patient with Prosper [facility] 04/12/2023 Last Documented On 4 8:31AM ; [facility] Screening for HIV Medical New Patient with Francois [facility] 04/12/2023 Last Documented On 4 8:31AM ; [facility] Upper respiratory infection Medical New Patient with Colette [facility] 04/12/2023 Last Documented On 4 8:31AM ; [facility] Visit for: screening for dig estive system disorders Medical New Patient with Colette [facility] 04/12/2023 Last Documented On 4 8:31AM ; 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 Referred Here Not referred by urgent care clinic and not the emergency room. No prior encounters. - Data to be reviewed: no clinical lab tests History of Present Illness Raheem Cohn is a 49 year old male. - Allergy list reviewed - Problem list reviewed - Reviewed Medications - Medication list reviewed Patient is a 49 year old male presenting for jaw pain that still will not relent. Patient went to see TMJ specialist and surgeon with little relief. Surgeon suggested getting new dentures and following up. Patient relates to difficulty swallowing from a throat infection they see an ENT for and is being given bactrim. Patient relates to jaw pain continuing to worsen and requesting an increase in gabapentin. Patient relates to having another primary provider prescribing clonipine recently. Patient states nothing helps the pain and time only makes pain worse. Patient has TMJ and maxillary surgeon appointment this coming week. Patient is upset with the quality of care from TMJ specialist and maxofacial surgeons. Patient wants another new referral. Patient recently completed hep c treatment and is in need of post-therapy labs. See note for psych eval Current Medication - Calcium Magnesium Zinc 333-133-5 MG Oral Tablet 0 days, 0 refills - clonazePAM 1 MG Oral Tablet 30 days, 0 refills - CoQ-10 150 MG Oral Capsule Take 1 capsule by mouth daily, 30 days, 5 refills - [facility] Iron 240 (27 Fe) MG Oral Tablet three timesd daily, 0 days, 0 refills - Daily Value Multivitamin Oral Tablet Take 1 tablet by mouth daily, 30 days, 11 refills - Indomethacin 25 MG Oral Capsule one tablet three times daily, 30 days, 0 refills - Mupirocin 2% External Ointment 7 days, 0 refills - Niacin 100 MG Oral Tablet Take 2 tablets by mouth daily, 30 days, 5 refills - Nortriptyline HCl 25 MG Oral Capsule three times daily, 30 days, 0 refills - QUEtiapine Fumarate 100 MG Oral Tablet 30 days, 0 refills - Sulfamethoxazole-Trimethoprim 800-160 MG Oral Tablet 7 days, 0 refills - valACYclovir HCl 500 MG Oral Tablet once daily, 3 days, 0 refills - Vitamin A 2400 MCG (8000 UT) Oral Capsule three times daily, 0 days, 0 refills Past Medical/Surgical History Other: No previous suicide attempt Reported: Safety Measures Discussed local and national crisis contact information and encouraged patient to go to the nearest ER if SI occurs and mood. Medical: No previous hospitalizations. Immunization History: Recent immunization for flu. Diagnoses: Viral hepatitis C Surgical: - Hand surgery Right Social History Environmental Exposure: No secondhand cigarette smoke exposure. Tobacco use: Cigarette smoking Light (1-10/day) and using electronic cigarettes/vaping. Alcohol: Not using alcohol. Drug Use: Not using drugs denied by patient. Sexual: Not sexually active. Sexual orientation Straight (not lesbian or strange) and gender identity Male. Allergies - NO KNOWN ENVIRONMENTAL ALLERGIES - NO KNOWN FOOD ALLERGIES - Penicillin V Reaction: Hives / Urticaria, Skin Rashes / Eruption of skin Family History Maternal: Type 2 diabetes mellitus Review Of Systems Head: Head symptoms Left jaw pain severe and constant and facial pain. Eyes: No eye symptoms. Otolaryngeal: No ear symptoms, no nasal symptoms, and no nose and sinus finding. Throat symptoms Difficulty swallowing with dentures in mouth as well as current infection being handled by ENT specialist and oral cavity symptoms. No jaw symptoms. Cardiovascular: No cardiovascular symptoms, no chest pain or discomfort, and no palpitations. Pulmonary: No pulmonary symptoms. Gastrointestinal: No gastrointestinal symptoms. Endocrine: No endocrine symptoms. Musculoskeletal: No musculoskeletal symptoms. Neurological: No neurological symptoms, no dizziness, and no vertigo. Psychological: Anxiety and depression. Skin: No skin symptoms. ROS in HPI. Physical Findings - Vitals taken 04/06/2024 02:09 pm BP-Sitting R138/90 mmHg Pulse Rate-Knmchbi62 bpm Fgybsn02 in Ovqkqh169 lbs 3.2 oz Body Mass Index26.9 kg/m2 Oxygen Lrijpidepg59 % Vital Signs: - Systolic blood pressure 130 - 139 mmHg. - Diastolic blood pressure > or = 90 mmHg. General Appearance: - Awake. - Alert. - Well developed. - Well nourished. - Body odor was normal. - In no acute distress. Oral Cavity: - Odor of breath was abnormal. - General condition was good Mild clicking in the left and right jaw. Frenum Attachment: - Showed no abnormalities. Gums: - Examination showed no abnormalities. Teeth: - Dental no abnormalities. Buccal Mucosa: - Showed no mucosal abnormalities. Tongue: - Tongue Black film on tongue. Palate: - Hard palate was normal. - Mucosa showed no abnormalities. Pharynx: Nasopharynx: - Normal. Oropharynx: - Normal. Hypopharynx: - Normal. Mucosal: - Pharyngeal mucosa showed no abnormalities. Lungs: - Normal. - Respiration rhythm and depth was normal. - Clear to auscultation. Cardiovascular: Auscultation: - Normal. Heart Rate And Rhythm: - Normal. Heart Sounds: - Normal. Abdomen: Visual Inspection: - Abdomen was normal on visual inspection. Musculoskeletal System: General/bilateral: - Normal movement of all extremities. Neurological: - Oriented to time, place, and person. Psychiatric: - Expression of emotions normal. Skin: - General appearance of skin normal. General body state: - In good general health. No Significant Findings: - No significant findings. Tests Laboratory-based Chemistry: Other Laboratory Tests: Screening for sexually transmitted infections was not performed. Laboratory Studies: Vascular Procedures: Right Antecubital Space. Left Antecubital Space. Assessment - Z68.26 - Body mass index [BMI] 26.0-26.9, adult - Z01.812 - Encounter for preprocedural laboratory examination - M26.601 - Right temporomandibular joint disorder, unspecified - B17.10 - Acute hepatitis C without hepatic coma - F15.20 - Other stimulant dependence, uncomplicated - F11.21 - Opioid dependence, in remission - F17.200 - Nicotine dependence, unspecified, uncomplicated - F41.1 - Generalized anxiety disorder Counseling/Education - Discussed nutritional needs teach healthy choices including fruits and vegetables - Patient education about a proper diet - Discussed concerns about exercise: promote physical activity Plan StartCited- Acute hepatitis C without hepatic coma Lab: CBC With Differential/Platelet Lab: HCV Antibody RFX to Quant PCR Lab: Comp. Metabolic Panel (14) EndCited StartCited- Right temporomandibular joint disorder, unspecified Gabapentin 300 MG capsule Take 1 capsule every 8 hours as needed for TMJ pain until they can see facial surgeon., 30 days, 0 refills EndCited Patient to use gabapentin as prescribed. Patient will not get a gabapentin refill again from this [employer] due to seeing specialist who are to manage jaw pain and TMJ course. Patient is to follow up with TMJ and oral/maxillary surgeon next week and ask about pain management. Patient is also to ask regular primary physician about pain management medications. Patient to have Hep C labs completed. Patient to report to the ED if symptoms become unbearable. Patient to follow up in 3 months. Other - Patient tolerated venipuncture well; - Number of attempts for venipuncture three Care Team - Colette Almaguer, KARUNA Health Reminders - Assess BMI satisfied 04/06/2024. - Assess Tobacco Use satisfied 04/06/2024. - Follow Up Plan BMI Management satisfied 04/06/2024. [facility]01-30-2025 Progress note* Progress note Date Encounter Last Documented by 04/06/2024 Medical Established Patient Last documented on 04/07/2024; 3:04 PM, Vanesa RILEY; [facility] Active Problems & Conditions - B35.1 - Dermatophytosis Onychomycosis Toenails - F41.1 - Generalized Anxiety Disorder - B17.10 - Hepatitis, C Virus - F15.20 - Methamphetamine Dependence - in Remission - F17.200 - Nicotine Dependence - F11.21 - Opioid Dependence in Remission - H92.01 - Otalgia Otogenic Right Ear - M26.601 - Temporomandibular Joint-pain Dysfunction Syndrome Right Chief Complaint The Chief Complaint is: Patient here for 1 month f/u and Hep C labs. Referred Here Not referred by urgent care clinic and not the emergency room. No prior encounters. - Data to be reviewed: no clinical lab tests History of Present Illness Raheem Cohn is a 49 year old male. - Allergy list reviewed - Problem list reviewed - Reviewed Medications - Medication list reviewed Patient is a 49 year old male presenting for jaw pain that still will not relent. Patient went to see TMJ specialist and surgeon with little relief. Surgeon suggested getting new dentures and following up. Patient relates to difficulty swallowing from a throat infection they see an ENT for and is being given bactrim. Patient relates to jaw pain continuing to worsen and requesting an increase in gabapentin. Patient relates to having another primary provider prescribing clonipine recently. Patient states nothing helps the pain and time only makes pain worse. Patient has TMJ and maxillary surgeon appointment this coming week. Patient is upset with the quality of care from TMJ specialist and maxofacial surgeons. Patient wants another new referral. Patient recently completed hep c treatment and is in need of post-therapy labs. See note for psych eval Current Medication - Calcium Magnesium Zinc 333-133-5 MG Oral Tablet 0 days, 0 refills - clonazePAM 1 MG Oral Tablet 30 days, 0 refills - CoQ-10 150 MG Oral Capsule Take 1 capsule by mouth daily, 30 days, 5 refills - [facility] Iron 240 (27 Fe) MG Oral Tablet three timesd daily, 0 days, 0 refills - Daily Value Multivitamin Oral Tablet Take 1 tablet by mouth daily, 30 days, 11 refills - Indomethacin 25 MG Oral Capsule one tablet three times daily, 30 days, 0 refills - Mupirocin 2% External Ointment 7 days, 0 refills - Niacin 100 MG Oral Tablet Take 2 tablets by mouth daily, 30 days, 5 refills - Nortriptyline HCl 25 MG Oral Capsule three times daily, 30 days, 0 refills - QUEtiapine Fumarate 100 MG Oral Tablet 30 days, 0 refills - Sulfamethoxazole-Trimethoprim 800-160 MG Oral Tablet 7 days, 0 refills - valACYclovir HCl 500 MG Oral Tablet once daily, 3 days, 0 refills - Vitamin A 2400 MCG (8000 UT) Oral Capsule three times daily, 0 days, 0 refills Past Medical/Surgical History Other: No previous suicide attempt Reported: Safety Measures Discussed local and national crisis contact information and encouraged patient to go to the nearest ER if SI occurs and mood. Medical: No previous hospitalizations. Immunization History: Recent immunization for flu. Diagnoses: Viral hepatitis C Surgical: - Hand surgery Right Social History Environmental Exposure: No secondhand cigarette smoke exposure. Tobacco use: Cigarette smoking Light (1-10/day) and using electronic cigarettes/vaping. Alcohol: Not using alcohol. Drug Use: Not using drugs denied by patient. Sexual: Not sexually active. Sexual orientation Straight (not lesbian or strange) and gender identity Male. Allergies - NO KNOWN ENVIRONMENTAL ALLERGIES - NO KNOWN FOOD ALLERGIES - Penicillin V Reaction: Hives / Urticaria, Skin Rashes / Eruption of skin Family History Maternal: Type 2 diabetes mellitus Review Of Systems Head: Head symptoms Left jaw pain severe and constant and facial pain. Eyes: No eye symptoms. Otolaryngeal: No ear symptoms, no nasal symptoms, and no nose and sinus finding. Throat symptoms Difficulty swallowing with dentures in mouth as well as current infection being handled by ENT specialist and oral cavity symptoms. No jaw symptoms. Cardiovascular: No cardiovascular symptoms, no chest pain or discomfort, and no palpitations. Pulmonary: No pulmonary symptoms. Gastrointestinal: No gastrointestinal symptoms. Endocrine: No endocrine symptoms. Musculoskeletal: No musculoskeletal symptoms. Neurological: No neurological symptoms, no dizziness, and no vertigo. Psychological: Anxiety and depression. Skin: No skin symptoms. ROS in HPI. Physical Findings - Vitals taken 04/06/2024 02:09 pm BP-Sitting R138/90 mmHg Pulse Rate-Nezsupu86 bpm Uoytve17 in Bssvxc260 lbs 3.2 oz Body Mass Index26.9 kg/m2 Oxygen Eumcjnbijy59 % Vital Signs: - Systolic blood pressure 130 - 139 mmHg. - Diastolic blood pressure > or = 90 mmHg. General Appearance: - Awake. - Alert. - Well developed. - Well nourished. - Body odor was normal. - In no acute distress. Oral Cavity: - Odor of breath was abnormal. - General condition was good Mild clicking in the left and right jaw. Frenum Attachment: - Showed no abnormalities. Gums: - Examination showed no abnormalities. Teeth: - Dental no abnormalities. Buccal Mucosa: - Showed no mucosal abnormalities. Tongue: - Tongue Black film on tongue. Palate: - Hard palate was normal. - Mucosa showed no abnormalities. Pharynx: Nasopharynx: - Normal. Oropharynx: - Normal. Hypopharynx: - Normal. Mucosal: - Pharyngeal mucosa showed no abnormalities. Lungs: - Normal. - Respiration rhythm and depth was normal. - Clear to auscultation. Cardiovascular: Auscultation: - Normal. Heart Rate And Rhythm: - Normal. Heart Sounds: - Normal. Abdomen: Visual Inspection: - Abdomen was normal on visual inspection. Musculoskeletal System: General/bilateral: - Normal movement of all extremities. Neurological: - Oriented to time, place, and person. Psychiatric: - Expression of emotions normal. Skin: - General appearance of skin normal. General body state: - In good general health. No Significant Findings: - No significant findings. Tests Laboratory-based Chemistry: Other Laboratory Tests: Screening for sexually transmitted infections was not performed. Laboratory Studies: Vascular Procedures: Right Antecubital Space. Left Antecubital Space. Assessment - Z68.26 - Body mass index [BMI] 26.0-26.9, adult - Z01.812 - Encounter for preprocedural laboratory examination - M26.601 - Right temporomandibular joint disorder, unspecified - B17.10 - Acute hepatitis C without hepatic coma - F15.20 - Other stimulant dependence, uncomplicated - F11.21 - Opioid dependence, in remission - F17.200 - Nicotine dependence, unspecified, uncomplicated - F41.1 - Generalized anxiety disorder Counseling/Education - Discussed nutritional needs teach healthy choices including fruits and vegetables - Patient education about a proper diet - Discussed concerns about exercise: promote physical activity Plan StartCited- Acute hepatitis C without hepatic coma Lab: CBC With Differential/Platelet Lab: HCV Antibody RFX to Quant PCR Lab: Comp. Metabolic Panel (14) EndCited StartCited- Nicotine dependence, unspecified, uncomplicated Varenicline Tartrate(Continue) 1 MG tablet Take 1 tablet 2 times daily for maintanence tharapy. Please ask primary for next refill, 30 days, 0 refills EndCited StartCited- Right temporomandibular joint disorder, unspecified Gabapentin 300 MG capsule Take 1 capsule every 8 hours as needed for TMJ pain until they can see facial surgeon., 30 days, 0 refills EndCited Patient to use gabapentin as prescribed. Patient will not get a gabapentin refill again from this [employer] due to seeing specialist who are to manage jaw pain and TMJ course. Patient is to follow up with TMJ and oral/maxillary surgeon next week and ask about pain management. Patient is also to ask regular primary physician about pain management medications. Patient to have Hep C labs completed. Patient to report to the ED if symptoms become unbearable. Patient to follow up in 3 months. Other - Patient tolerated venipuncture well; - Number of attempts for venipuncture three Care Team - Colette Almaguer CNP Health Reminders - Assess BMI satisfied 04/06/2024. - Assess Tobacco Use satisfied 04/06/2024. - Follow Up Plan BMI Management satisfied 04/06/2024. [facility]01-30-2025 Progress note* Progress note Date Encounter Last Documented by 04/06/2024 Established Patient Last docu mented on 04/07/2024; 5:58 PM, Bri BEDOLLAW; [facility] Active Problems & Conditions - B35.1 - Dermatophytosis Onychomycosis Toenails - F41.1 - Generalized Anxiety Disorder - B17.10 - Hepatitis, C Virus - F15.20 - Methamphetamine Dependence - in Remission - F17.200 - Nicotine Dependence - F11.21 - Opioid Dependence in Remission - H92.01 - Otalgia Otogenic Right Ear - M26.601 - Temporomandibular Joint-pain Dysfunction Syndrome Right Chief Complaint The Chief Complaint is:: 1 month follow up. Subjective [facility] met with patient to follow up on anxiety. Patient reports that he sees his primary care doctor for his anxiety. He states that he is here to be a part of the program for gabapentin. Patient feels that he is not getting the help that he needs from the [facility] for his TMJ. History of Present Illness Raheem Cohn is a 49 year old male. - Irritability. - Anxiety - Energy level is good - No depression Current Medication - Calcium Magnesium Zinc 333-133-5 MG Oral Tablet 0 days, 0 refills - clonazePAM 1 MG Oral Tablet 30 days, 0 refills - CoQ-10 150 MG Oral Capsule Take 1 capsule by mouth daily, 30 days, 5 refills - [facility] Iron 240 (27 Fe) MG Oral Tablet three timesd daily, 0 days, 0 refills - Daily Value Multivitamin Oral Tablet Take 1 tablet by mouth daily, 30 days, 11 refills - Gabapentin 300 MG Oral Capsule Take 1 capsule every 8 hours as needed for TMJ pain until they can see facial surgeon., 30 days, 0 refills - Indomethacin 25 MG Oral Capsule one tablet three times daily, 30 days, 0 refills - Mupirocin 2% External Ointment 7 days, 0 refills - Niacin 100 MG Oral Tablet Take 2 tablets by mouth daily, 30 days, 5 refills - Nortriptyline HCl 25 MG Oral Capsule three times daily, 30 days, 0 refills - QUEtiapine Fumarate 100 MG Oral Tablet 30 days, 0 refills - Sulfamethoxazole-Trimethoprim 800-160 MG Oral Tablet 7 days, 0 refills - valACYclovir HCl 500 MG Oral Tablet once daily, 3 days, 0 refills - Vitamin A 2400 MCG (8000 UT) Oral Capsule three times daily, 0 days, 0 refills Past Medical/Surgical History Reported: No Safety Measures. Social History Environmental Exposure: No secondhand cigarette smoke exposure. Personal: Recent emotional stress. Tobacco use: Cigarette smoking Light (1-10/day) and current smoker. Alcohol: Not using alcohol. Drug Use: Recovering from drug addiction. Does not misuse drugs and not using drugs. Sexual: Sexual orientation Straight (not lesbian or strange) and gender identity Male. Physical Findings General Appearance: - Normal Appearance. Neurological: - Cognitive Functions was Normal. - Oriented to time, place, and person. - No hallucinations. - Judgement was not impaired. Speech: - Is Normal. - No articulation abnormalities. Psychiatric: - Mood was frustrated. - Attitude Open. Appearance: - Normal. Demonstrated Behavior: - Motor Activity Normal Activity. - Eye Contact Appropriate. Affect: - Congruent with the mood. Thought Processes: - Not impaired. Thought Content: - Revealed no impairment. - Insight was intact. - No delusions. - No suicidal ideation. - No Passive thoughts of . - No suicidal plans. - No suicidal intent. - No homicidal ideations. - No homicidal plans. - No homicidal intent. Past Medical: - No repetitive self injurious behavior. Assessment - Nicotine dependence [F17.200 - Nicotine dependence, unspecified, uncomplicated] - Generalized anxiety disorder [F41.1 - Generalized anxiety disorder] Therapy - Brief solution-focused. - Adherent with medications. - Visit 30 Minutes. - Plan - do not modify medication. Collaborated with patient and provider: Counseling/Education *BHP offered active and supportive listening, normalized emotions and feelings, and processed current stressors. Plan *BHP to follow-up with patient at next visit as scheduled. *Patient to follow up as needed/scheduled. Care Team - Colette Almaguer CNP Health Reminders - Assess Tobacco Use satisfied 04/07/2024. 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 Subjective [facility] met with patient to follow up on anxiety. Patient reports that he sees his primary care doctor for his anxiety. He states that he is here to be a part of the program for gabapentin. Patient feels that he is not getting the help that he needs from the [facility] for his TMJ. History of Present Illness Raheem Cohn is a 49 year old male. - Irritability. - Anxiety - Energy level is good - No depression Current Medication - Calcium Magnesium Zinc 333-133-5 MG Oral Tablet 0 days, 0 refills - clonazePAM 1 MG Oral Tablet 30 days, 0 refills - CoQ-10 150 MG Oral Capsule Take 1 capsule by mouth daily, 30 days, 5 refills - [facility] Iron 240 (27 Fe) MG Oral Tablet three timesd daily, 0 days, 0 refills - Daily Value Multivitamin Oral Tablet Take 1 tablet by mouth daily, 30 days, 11 refills - Gabapentin 300 MG Oral Capsule Take 1 capsule every 8 hours as needed for TMJ pain until they can see facial surgeon., 30 days, 0 refills - Indomethacin 25 MG Oral Capsule one tablet three times daily, 30 days, 0 refills - Mupirocin 2% External Ointment 7 days, 0 refills - Niacin 100 MG Oral Tablet Take 2 tablets by mouth daily, 30 days, 5 refills - Nortriptyline HCl 25 MG Oral Capsule three times daily, 30 days, 0 refills - QUEtiapine Fumarate 100 MG Oral Tablet 30 days, 0 refills - Sulfamethoxazole-Trimethoprim 800-160 MG Oral Tablet 7 days, 0 refills - valACYclovir HCl 500 MG Oral Tablet once daily, 3 days, 0 refills - Vitamin A 2400 MCG (8000 UT) Oral Capsule three times daily, 0 days, 0 refills Past Medical/Surgical History Reported: No Safety Measures. Social History Environmental Exposure: No secondhand cigarette smoke exposure. Personal: Recent emotional stress. Tobacco use: Cigarette smoking Light (1-10/day) and current smoker. Alcohol: Not using alcohol. Drug Use: Recovering from drug addiction. Does not misuse drugs and not using drugs. Sexual: Sexual orientation Straight (not lesbian or strange) and gender identity Male. Physical Findings General Appearance: - Normal Appearance. Neurological: - Cognitive Functions was Normal. - Oriented to time, place, and person. - No hallucinations. - Judgement was not impaired. Speech: - Is Normal. - No articulation abnormalities. Psychiatric: - Mood was frustrated. - Attitude Open. Appearance: - Normal. Demonstrated Behavior: - Motor Activity Normal Activity. - Eye Contact Appropriate. Affect: - Congruent with the mood. Thought Processes: - Not impaired. Thought Content: - Revealed no impairment. - Insight was intact. - No delusions. - No suicidal ideation. - No Passive thoughts of . - No suicidal plans. - No suicidal intent. - No homicidal ideations. - No homicidal plans. - No homicidal intent. Past Medical: - No repetitive self injurious behavior. Assessment - Nicotine dependence [F17.200 - Nicotine dependence, unspecified, uncomplicated] - Generalized anxiety disorder [F41.1 - Generalized anxiety disorder] Therapy - SBIRT Full Screen Neg. - Brief solution-focused. - Adherent with medications. - Visit 30 Minutes. - Plan - do not modify medication. Collaborated with patient and provider: Counseling/Education *BHP offered active and supportive listening, normalized emotions and feelings, and processed current stressors. Plan *BHP to follow-up with patient at next visit as scheduled. *Patient to follow up as needed/scheduled. Care Team - Colette Almaguer CNP Health Reminders - Assess Tobacco Use satisfied 04/07/2024. - SBIRT satisfied 04/07/2024. User Defined 1 She has not had 4 or more drinks in a day within the past year., no misuse of prescription only drugs, and not illicit. 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 Right Current Medication - Calcium Magnesium Zinc 333-133-5 MG Oral Tablet 0 days, 0 refills - clonazePAM 1 MG Oral Tablet 30 days, 0 refills - CoQ-10 150 MG Oral Capsule Take 1 capsule by mouth daily, 30 days, 5 refills - [facility] Iron 240 (27 Fe) MG Oral Tablet three timesd daily, 0 days, 0 refills - Daily Value Multivitamin Oral Tablet Take 1 tablet by mouth daily, 30 days, 11 refills - Gabapentin 300 MG Oral Capsule Take 1 capsule every 8 hours as needed for TMJ pain until they can see facial surgeon., 30 days, 0 refills - Indomethacin 25 MG Oral Capsule one tablet three times daily, 30 days, 0 refills - Mupirocin 2% External Ointment 7 days, 0 refills - Niacin 100 MG Oral Tablet Take 2 tablets by mouth daily, 30 days, 5 refills - Nortriptyline HCl 25 MG Oral Capsule three times daily, 30 days, 0 refills - QUEtiapine Fumarate 100 MG Oral Tablet 30 days, 0 refills - Sulfamethoxazole-Trimethoprim 800-160 MG Oral Tablet 7 days, 0 refills - valACYclovir HCl 500 MG Oral Tablet once daily, 3 days, 0 refills - Vitamin A 2400 MCG (8000 UT) Oral Capsule three times daily, 0 days, 0 refills Past Medical/Surgical History Other: No previous suicide attempt Reported: No Safety Measures. Medical: No previous hospitalizations. Immunization History: Recent immunization for flu. Diagnoses: Viral hepatitis C Surgical: - Hand surgery Right Allergies - NO KNOWN ENVIRONMENTAL ALLERGIES - NO KNOWN FOOD ALLERGIES - Penicillin V Reaction: Hives / Urticaria, Skin Rashes / Eruption of skin Family History Maternal: Type 2 diabetes mellitus Tests Blood Analysis: Blood Chemistry: No HEPATITIS C Viral Load 04/06/2024 Hep C - Not Detected. Practice Management Hepatitis C Treatment Started 07/05/2023 Epclusa and Hepatitis C Treatment Completed 08/04/2023. Care Team - Colette Almaguer CNP [facility]01-30-2025 Instructions Includes: Instructions for all patient encounters Instructions to patient Intervention and counseling on cessation of tobacco use, 3-10 minutes Last Documented On 4 4:42PM ; [facility] Education and Decision Aids were provided during visit for: Discussed nutritional needs teach healthy choices including fruits and vegetables Last Documented On 5 2:16PM ; [facility] Patient education about a pr oper diet Last Documented On 5 2:16PM ; [facility] Discussed concerns about exe rcise : promote physical activity Last Documented On 5 2:16PM ; [facility] Discussed nutritional needs teach healthy choices including fruits and vegetables Last Documented On 4 4:10PM ; [facility] Patient education about a pr oper diet Last Documented On 4 4:10PM ; [facility] Discussed concerns about exe rcise : promote physical activity Last Documented On 4 4:10PM ; [facility] Not requesting contraception Last Documented On 4 4:10PM ; [facility] BHP and [employer]ATERS[employer] WORK[employer] discussed patient s overall functioning, completed his BH screenings, discuss his mood, recovery, and medications today. ~BHP noted patient is in signifcant amounts of pain that's increasing his cravings to use and SI. ~BHP assessed risk for safety and noted patient does have a safety plan/relapse plan with his counselor and access to crisis contacts if he were to need them in the future. ~BHP offered active and supportive listening, normalized emotions and feelings related to his pain Last Documented On 4 5:20PM ; [facility] Discussed nutritional needs teach healthy choices including fruits and vegetables Last Documented On 4 1:16PM ; [facility] Patient education about a pr oper diet Last Documented On 4 1:16PM ; [facility] Discussed concerns about exe rcise : promote physical activity Last Documented On 4 1:16PM ; [facility] Discussed nutritional needs teach healthy choices including fruits and vegetables Last Documented On 4 1:19PM ; [facility] Patient education about a pr oper diet Last Documented On 4 1:19PM ; [facility] Discussed concerns about exe rcise : promote physical activity Last Documented On 4 1:19PM ; [facility] Discussed nutritional needs teach healthy choices including fruits and vegetables Last Documented On 4 1:14PM ; [facility] Patient education about a pr oper diet Last Documented On 4 1:14PM ; [facility] Discussed concerns about exe rcise : promote physical activity Last Documented On 4 1:14PM ; [facility] Discussed nutritional needs teach healthy choices including fruits and vegetables Last Documented On 4 1:17PM ; [facility] Patient education about a pr oper diet Last Documented On 4 1:17PM ; [facility] Discussed concerns about exe rcise : promote physical activity Last Documented On 4 1:17PM ; [facility] Discussed concerns about uns afe sexual practices Last Documented On 4 1:29PM ; [facility] Discussed concerns about tob acco use Last Documented On 4 1:29PM ; [facility] Discussed concerns about alc ohol use Last Documented On 4 1:29PM ; [facility] Discussed concerns about ill icit drug use Last Documented On 4 1:29PM ; [facility] Patient has agreed to visits every 4 weeks Last Documented On 4 1:29PM ; [facility] Patient aware not to share n eedles, razors, toothbrushes, or nail clippers Last Documented On 4 1:29PM ; [facility] Counseled on medication and herbal product interactions Last Documented On 4 1:29PM ; [facility] Patient is treatment naive Last Documented On 4 1:29PM ; [facility] Patient has an estimated lif e expectancy of 12 months or greater. Last Documented On 4 1:29PM ; [facility] Patient counseled on how to take Hepatitis C Medications Last Documented On 4 1:29PM ; [facility] Patient agreed to labs (CBC, CMP, HCV) every 4 weeks Last Documented On 4 1:29PM ; [facility] Discussed nutritional needs teach healthy choices including fruits and vegetables Last Documented On 4 2:43PM ; [facility] Patient education about a pr oper diet Last Documented On 4 2:43PM ; [facility] Discussed concerns about exe rcise : promote physical activity Last Documented On 4 2:43PM ; [facility] *[facility] offered active and supp ortive listening, normalized emotions and feelings, and processed ~current stressors. ~*Reviewed relapse prevention skills and positive support activities Last Documented On 4 7:56PM ; [facility] Discussed nutritional needs teach healthy choices including fruits and vegetables Last Documented On 4 1:21PM ; [facility] Patient education about a pr oper diet Last Documented On 4 1:21PM ; [facility] Discussed concerns about exe rcise : promote physical activity Last Documented On 4 1:21PM ; [facility] Patient has agreed to visits every 4 weeks Last Documented On 4 1:59PM ; [facility] Patient aware not to share n eedles, razors, toothbrushes, or nail clippers Last Documented On 4 1:59PM ; [facility] Counseled on medication and herbal product interactions Last Documented On 4 1:59PM ; [facility] Patient is treatment naive Last Documented On 4 1:59PM ; [facility] Patient has an estimated lif e expectancy of 12 months or greater. Last Documented On 4 1:59PM ; [facility] Patient counseled on how to take Hepatitis C Medications Last Documented On 4 1:59PM ; [facility] Patient agreed to labs (CBC, CMP, HCV) every 4 weeks Last Documented On 4 1:59PM ; [facility] Work Phone: [phone] Miscellaneous Notes* Telephone Encounter - Theresa Slaughter CMA - 04/05/2024 10:13 AM EST Refill request, their system mistakenly deleted the script and they can't take verbal so it needs to be resent. [facility]* Telephone Encounter - Theresa Slaughter CMA - 04/05/2024 10:13 AM EST Refill request, their system mistakenly deleted the script and they can't take verbal so it needs to be resent. [facility]01-28-2025 Miscellaneous Notes* Telephone Encounter - Theresa Slaughter CMA - 04/04/2024 8:05 AM EST Refill request documented in this [facility]01-28-2025 Telephone encounter Note* Telephone Encounter - Theresa Slaughter CMA - 04/04/2024 8:05 AM EST Refill request [facility]01-27-2025 Telephone encounter Note* Telephone Encounter - Lyn Shipman PA-C - 04/03/2024 2:24 PM EST Prescribed Bactrim; counseled patient on medication, dose, route, side effects, and adverse reactions. Patient will follow up with outside ENT for oral biopsy as scheduled and scheduled with ENT Dr. Lebron for DNS evaluation. Advised patient on red flag warning signs, symptoms that warrant immediate evaluation in ER. Lyn Shipman PA-C [facility]01-27-2025 Miscellaneous Notes* Telephone Encounter - Lyn Shipman PA-C - 04/03/2024 2:24 PM EST Prescribed Bactrim; counseled patient on medication, dose, route, side effects, and adverse reactions. Patient will follow up with outside ENT for oral biopsy as scheduled and scheduled with ENT Dr. Lebron for DNS evaluation. Advised patient on red flag warning signs, symptoms that warrant immediate evaluation in ER. Lyn Shipman PA-C [facility]ology (ENT) * Telephone Encounter - Nesha Hawley - 04/03/2024 11:26 AM EST Patient calling in to [facility]. Pt states he has read his mychart test results and is now having more symptoms. Pt states he has little saliva, he feels his nose is swelling and he is having a hardtime swallowing, Asking if there is anything he can be prescribed in the meantime. Pt sees Dr Lebron on 04/11/2024 [facility] Tele[facility] encounter Note * Telephone Encounter - Nesha Hawley - 04/03/2024 11:26 AM EST Patient calling in to [facility]. Pt states he has read his mychart test results and is now having more symptoms. Pt states he has little saliva, he feels his nose is swelling and he is having a hardtime swallowing, Asking if there is anything he can be prescribed in the meantime. Pt sees Dr Lebron on 04/11/2024 [facility] Miscellaneous Notes* Telephone Encounter - Theresa Slaughter CMA - 04/03/2024 10:31 AM EST [facility] Tele[facility] encounter Note* Telephone Encounter - Theresa Slaughter CMA - 04/03/2024 10:31 AM EST Refill request [facility]01-22-2025 Note* Addendum Note - Lewis Mishra - 03/29/2024 6:34 PM ESTAddended by: LEWIS MISHRA on: 03/29/2024 06:34 PM Modules accepted: Orders [facility]01-22-2025 Miscellaneous Notes* Addendum Note - Lewis Mishra - 03/29/2024 6:34 PM ESTAddended by: LEWIS MISHRA on: 03/29/2024 06:34 PM Modules accepted: Orders * Addendum Note - Lewis Mishra - 03/29/2024 4:19 PM ESTAddended by: LEWIS MISHRA on: 03/29/2024 04:19 PM Modules accepted: Orders [facility] Note* Addendum Note - Lewis Mishra - 03/29/2024 4:19 PM ESTAddended by: LEWIS MISHRA on: 03/29/2024 04:19 PM Modules accepted: Orders [facility]01-22-2025 NoteHNO ID: [id number] Author: LYN SHIPMAN PA-C Service: ? Author Type: Physician Floor Worker Type: Progress Notes Filed: 03/29/2024 14:52 Note Text: [facility] [place] [facility] NOTE CC: Mr. Cohn is a 49 year old male who comes in for follow up. Patient was last seen on 12/08/2023 by [facility] Kory Kirkland APRN, KARUNA with plan of care: Assessment: Dislocation of temporomandibular joint, subsequent encounter (primary encounter diagnosis) Plan: - I personally interpreted and reviewed audiogram which showed essentially normal hearing with type A tympanometry bilaterally. On exam external auditory canal's are patent and tympanic membrane's are clear and intact. - CT of the temporal bones to rule out any inner ear abnormality. - Consult placed to dentistry - Consult placed to physical therapy - Consult to [facility] - Follow-up with me as needed Kory Kirkland APRN.KARUNA ASSESSMENT: Dry mouth Cervicalgia Tmj dysfunction Black hairy tongue Dns (deviated nasal septum) Atypical facial pain PLAN: - Discussed with patient at length about the imaging, swallow evaluations, hearing test, flexible laryngoscopies, evaluations and recommendations (both [facility] and external) he has had to date; all patient questions answered. Patient may benefit from continued evaluation with Pain Management as well as BH - Swabbed tongue and sent for lab evaluation given patient concern for fungal etiology of black tongue, black foreign object he noted fell from roof of mouth. Patient reports he is scheduled for oral biopsy in April 2024 - Warm compress, gentle massage, analgesia as needed, soft diet advised, avoid clenching or grinding teeth; make appointment with a dentist who specializes in TMJ for further treatment, oral appliance if indicated, consider physiotherapy or massage with regards to temporomandibular joint - Advised patient on red flag warning signs, symptoms that warrant immediate evaluation in ER - Follow up after oral biopsy; sooner if clinically indicated Lyn Shipman PA-C [facility] HPI: Since last visit, patient reports black hairy tongue, dry mouth persists. 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 Patient continues to feel like the tissue of cheeks and roof of mouth is peeling constantly. He has been evaluated at ED numerous times and has undergone bilateral TMJ injections with limited relief. Patient has been gargling with hydrogen peroxide with no relief. Patient reports he has been treated for thrush without improvement. Patient reports neck pain, popping and crunching sensation in neck persist. Patient reports he quit smoking start of March 2024, currently on day 10 of Chantix. Patient endorses history of anxiety, depression, follows with therapist, whom patient reports advised consultation with ENT, Neurology, Pain Management. HPI 12/08/2023: HPI: 18 months ago he was driving on the [facility] and noticed a popping in his right ear while going up and down hills. Starting hearing things. Went to the ED and was hospitalized in a mental facility for a month for hallucinations. Was finally treated with antibiotics and his hallucinating improved Thought there was a dental infection on the right side and had his teeth removed. Broke his jaw doing this Has a MRI of the jaw scheduled for TMJ Sees an oral surgeon who ordered a CT of his throat Reports right ear to his cheek he feels twisting and turning Hears constant cracking with movement when he turns left. Past medical history: PAST MEDICAL HISTORY Diagnosis Date Amphetamine and other psychostimulant dependence, episodic (HCC) 06/03/2007 clean 09/11, again clean since 01/2013 Anxiety state, unspecified Carpal tunnel syndrome, bilateral Chronic back pain Heart murmur child Hepatitis C Insomnia, unspecified IVDU (intravenous drug user) in past, last in 2009 Verruca vulgaris right hand Past surgical history: PAST SURGICAL HISTORY Procedure Laterality Date ANES DX/THER NERVE BLOCK/INJECTION PRONE POS 2012 CRYOSURGERY right hand wart PAST SURGICAL HISTORY OF 1992 right hand fracture Current medication(s): Current Outpatient Medications Medication Sig clonazePAM (KLONOPIN) 0.5 mg tablet Take 1 mg by mouth. gabapentin (NEURONTIN) 300 mg capsule Take 300 mg by mouth three times a day. vit B complex no.12/niacin,B3, (VITAMIN B COMPLEX NO.12-NIACIN ORAL) Take by mouth. omeprazole (PRILOSEC) 40 mg capsule Take 40 mg by mouth once daily. chlorproMAZINE (THORAZINE) 50 mg tablet Take 2 tablets by mouth one time only for 1 dose. Take 1 hour prior to MRI. terbinafine HCl (LAMISIL) 250 mg tablet Take 250 mg by mouth once daily. (more content not included)...[facility]01-22-2025 History of Present illness Narrative* Lyn Shipman PA-C - 03/29/2024 11:49 AM EST Images from the original note were not included. [facility] [place] [facility] NOTE CC: Mr. Cohn is a 49 year old male who comes in for follow up. Patient was last seen on 12/08/2023 by [facility] Kory Kirkland APRN, KARUNA with plan of care: Assessment: Dislocation of temporomandibular joint, subsequent encounter (primary encounter diagnosis) Plan: - I personally interpreted and reviewed audiogram which showed essentially normal hearing with typeA tympanometry bilaterally. On exam external auditory canal's are patent and tympanic membrane's are clear and intact. - CT of the temporal bones to rule out any inner ear abnormality. - Consult placed to dentistry - Consult placed to physical therapy - Consult to [facility] - Follow-up with me as needed Kory Kirkland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 towards the back base, clicking and cracking with in his jaw and head, a black foreign object fell out from the back of his throat,.... - patient has been through multiple workups and imaging as described above and in my previous notes. Follow through with [facility] ENT appointment for second opinion. Patient has schedule appointment 03/29/2024. documented in this encounterWilson [facility]12-[facility] Evaluation note Includes: Assessments for all patient encounters Findings Encounter Date Generalized anxiety disorder BH Established Victoria ent with Patrica Stone DRY WALL PLASTERER 03/06/2024 Last Documented On 4 4:40PM ; [facility] Methamphetamine dependence - in remission Established Patient with Patrica Stone DRY WALL PLASTERER 03/06/2024 Last Documented On 4 4:40PM ; [facility] Nicotine dependence Established Patient with Patrica Stone DRY WALL PLASTERER 03/06/2024 Last Documented On 4 4:40PM ; [facility] RNDx tobacco abuse Established Patient with M virginia Stone DRY WALL PLASTERER 03/06/2024 Last Documented On 4 4:40PM ; [facility] Severe opioid dependence in sustained remission Established Patient with Patrica Stone DRY WALL PLASTERER 03/06/2024 Last Documented On 4 4:40PM ; [facility] Assessment of body mass index Medical Es tablished Patient with Vanesa Neffick BOBBIN INSPECTOR 03/06/2024 Last Documented On 4 5:06PM ; [facility] Body mass index Medical Established Patient with Vanesa Jules BOBBIN INSPECTOR 03/06/2024 Last Documented On 4 5:06PM ; [facility] Generalized anxiety disorder Medical Est ablished Patient with Vanesa Jules BOBBIN INSPECTOR 03/06/2024 Last Documented On 4 5:06PM ; [facility] Nicotine dependence Medical Established Patient with Vanesa Jules BOBBIN INSPECTOR 03/06/2024 Last Documented On 4 5:06PM ; [facility] Onychomycosis of the toenails Medical Es tablished Patient with Vanesa Jules BOBBIN INSPECTOR 03/06/2024 Last Documented On 4 5:06PM ; [facility] 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 Medical Established Patient with Vanesa Jules BOBBIN INSPECTOR 03/06/2024 Last Documented On 4 5:06PM ; [facility] Viral hepatitis C Medical Established Patient wi zuleika Crouch BOBBIN INSPECTOR 03/06/2024 Last Documented On 4 5:06PM ; [facility] [Z68.26 - Body mass index [B VT] 26.0-26.9, adult] assessment of body mass index Medical Established Patient with Colette Almaguer [facility] 08/25/2023 Last Documented On 4 8:38AM ; [facility] Assessment of BMI Percentile = 5% to < 85% for age Z68.52 Medical Established Patient with Colette Yevgeniy [facility] 08/25/2023 Last Documented On 4 8:38AM ; [facility] Nicotine dependence Medical Established Patient with Colette Yvegeniy [facility] 08/25/2023 Last Documented On 4 8:38AM ; [facility] Oral thrush Medical Established Patient with Colette Yevgeniy [facility] 08/25/2023 Last Documented On 4 8:38AM ; [facility] Otogenic otalgia of right ear Medical Es tablished Patient with Colette Yevgeniy [facility] 08/25/2023 Last Documented On 4 8:38AM ; [facility] 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 Medical Established Patient with Colette Yevgeniy [facility] 08/25/2023 Last Documented On 4 8:38AM ; [facility] Viral hepatitis C Medical Established Patient wi zuleika Almaguer [facility] 08/25/2023 Last Documented On 4 8:38AM ; [facility] Visit for: therapeutic drug monitoring Medical Established Patient with Colette Yevgeniy [facility] 08/25/2023 Last Documented On 4 8:38AM ; [facility] [Z68.26 - Body mass index [B VT] 26.0-26.9, adult] assessment of body mass index Medical Established Patient with Colette Yevgeniy [facility] 07/15/2023 Last Documented On 4 8:36AM ; [facility] Nicotine dependence Medical Established Patient with Colette Yevgeniy [facility] 07/15/2023 Last Documented On 4 8:36AM ; [facility] 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 Medical Established Patient with Colette Almaguer [facility] 07/15/2023 Last Documented On 4 8:36AM ; [facility] Viral hepatitis C Medical Established Patient wi th Colette Almaguer [facility] 07/15/2023 Last Documented On 4 8:36AM ; [facility] Viral hepatitis C Medical Established Patient wi th Colette Almaguer [facility] 07/15/2023 Last Documented On 4 8:36AM ; [facility] Visit for: screening for depression [facility] Established Patient with Colette Almaguer [facility] 07/15/2023 Last Documented On 4 8:36AM ; [facility] [Z68.25 - Body mass index [B VT] 25.0-25.9, adult] assessment of body mass index Medical Established Patient with Colette Almaguer [facility] 06/03/2023 Last Documented On 4 9:49AM ; [facility] Nicotine dependence Medical Established Patient with Colette Almaguer [facility] 06/03/2023 Last Documented On 4 9:49AM ; [facility] 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 Medical Established Patient with Colette Almaguer [facility] 06/03/2023 Last Documented On 4 9:49AM ; [facility] Viral hepatitis C Medical Established Patient wi th Colette Almaguer [facility] 06/03/2023 Last Documented On 4 9:49AM ; [facility] Visit for: screening for STD Medical Est ablished Patient with Colette Almaguer [facility] 06/03/2023 Last Documented On 4 9:49AM ; [facility] [Z68.24 - Body mass index [B VT] 24.0-24.9, adult] assessment of body mass index Medical Established Patient with Colette Almaguer [facility] 05/10/2023 Last Documented On 4 8:24AM ; [facility] Generalized anxiety disorder Medical Est ablished Patient with Colette Almaguer [facility] 05/10/2023 Last Documented On 4 8:24AM ; [facility] Nicotine dependence Medical Established Patient with Colette Yevgeniy [facility] 05/10/2023 Last Documented On 4 8:24AM ; [facility] Onychomycosis of the toenails Medical Es tablished Patient with Colette Almaguer [facility] 05/10/2023 Last Documented On 4 8:24AM ; [facility] Otogenic otalgia of right ear Medical Es tablished Patient with Colette Almaguer [facility] 05/10/2023 Last Documented On 4 8:24AM ; [facility] 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 Medical Established Patient with Colette Almaguer [facility] 05/10/2023 Last Documented On 4 8:24AM ; [facility] Viral hepatitis C Medical Established Patient wi th Colette Almaguer [facility] 05/10/2023 Last Documented On 4 8:24AM ; [facility] [Z68.24 - Body mass index [B VT] 24.0-24.9, adult] assessment of body mass index Open Access - Established with Colette Almaguer [facility] 04/26/2023 Last Documented On 4 8:20AM ; [facility] Nicotine dependence Open Access - Established wi th Colette Almaguer [facility] 04/26/2023 Last Documented On 4 8:20AM ; [facility] Otogenic otalgia of right ear Open Acces s - Established with Colette Almaguer [facility] 04/26/2023 Last Documented On 4 8:20AM ; [facility] 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 Open Access - Established with Colette Almaguer [facility] 04/26/2023 Last Documented On 4 8:20AM ; [facility] Generalized anxiety disorder BH Established [place] ent with Bri Barrow [facility] 04/12/2023 Last Documented On 4 7:57PM ; [facility] Nicotine dependence BH Established Patient with Bri Barrow DIE MAKER [facility] 04/12/2023 Last Documented On 4 7:57PM ; [facility] [Z68.23 - Body mass index [B VT] 23.0-23.9, adult] assessment of body mass index Medical New Patient with Colette Almaguer [facility] 04/12/2023 Last Documented On 4 8:31AM ; [facility] Acute otitis media of left ear Medical N ew Patient with Colette Almaguer [facility] 04/12/2023 Last Documented On 4 8:31AM ; [facility] Diabetes Risk Test Score was three score 04/12/2023 Medical New Patient with Colette Almaguer [facility] 04/12/2023 Last Documented On 4 8:31AM ; [facility] Nicotine dependence Medical New Patient with Prosper Almaguer [facility] 04/12/2023 Last Documented On 4 8:31AM ; [facility] Screening for HIV Medical New Patient with Francois Almaguer [facility] 04/12/2023 Last Documented On 4 8:31AM ; [facility] Upper respiratory infection Medical New Patient with Colette Almaguer [facility] 04/12/2023 Last Documented On 4 8:31AM ; [facility] Visit for: screening for dig estive system disorders Medical New Patient with Colette Almaguer [facility] 04/12/2023 Last Documented On 4 8:31AM ; [facility] Work Phone: 1(903) 469-710012-30-2024 Evaluation note Includes: Assessments for all patient encounters Findings Encounter Date Generalized anxiety disorder Established Victoria ent with Patrica Stone DRY WALL PLASTERER 03/06/2024 Last Documented On 4 5:21PM ; [facility] Methamphetamine dependence - in remission Established Patient with Patrica Stone DRY WALL PLASTERER 03/06/2024 Last Documented On 4 5:21PM ; [facility] Nicotine dependence Established Patient with Patrica Stone DRY WALL PLASTERER 03/06/2024 Last Documented On 4 5:21PM ; [facility] RNDx tobacco abuse BH Established Patient with Lita coleman Stone DRY WALL PLASTERER 03/06/2024 Last Documented On 4 5:21PM ; [facility] Severe opioid dependence in sustained remission Established Patient with Patrica Stone DRY WALL PLASTERER 03/06/2024 Last Documented On 4 5:21PM ; [facility] Assessment of body mass index Medical Es tablished Patient with Vanesa Crouch BOBBIN INSPECTOR 03/06/2024 Last Documented On 4 5:06PM ; [facility] Body mass index Medical Established Patient with Vanesa Crouch BOBBIN INSPECTOR 03/06/2024 Last Documented On 4 5:06PM ; [facility] Generalized anxiety disorder Medical Est ablished Patient with Vanesa Crouch BOBBIN INSPECTOR 03/06/2024 Last Documented On 4 5:06PM ; [facility] Nicotine dependence Medical Established Patient with Vanesa Crouch BOBBIN INSPECTOR 03/06/2024 Last Documented On 4 5:06PM ; [facility] Onychomycosis of the toenails Medical Es tablished Patient with Vanesa Crouch BOBBIN INSPECTOR 03/06/2024 Last Documented On 4 5:06PM ; [facility] 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 Medical Established Patient with Vanesa Crouch BOBBIN INSPECTOR 03/06/2024 Last Documented On 4 5:06PM ; [facility] Viral hepatitis C Medical Established Patient wi th Vanesa Crouch BOBBIN INSPECTOR 03/06/2024 Last Documented On 4 5:06PM ; [facility] [Z68.26 - Body mass index [B VT] 26.0-26.9, adult] assessment of body mass index Medical Established Patient with Colette Almaguer [facility] 08/25/2023 Last Documented On 4 8:38AM ; [facility] Assessment of BMI Percentile = 5% to < 85% for age Z68.52 Medical Established Patient with Colette Almaguer [facility] 08/25/2023 Last Documented On 4 8:38AM ; [facility] Nicotine dependence Medical Established Patient with Colette Yevgeniy [facility] 08/25/2023 Last Documented On 4 8:38AM ; [facility] Oral thrush Medical Established Patient with Colette Almaguer [facility] 08/25/2023 Last Documented On 4 8:38AM ; [facility] Otogenic otalgia of right ear Medical Es tablished Patient with Colette Almaguer [facility] 08/25/2023 Last Documented On 4 8:38AM ; [facility] 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 Medical Established Patient with Colette Almaguer [facility] 08/25/2023 Last Documented On 4 8:38AM ; [facility] Viral hepatitis C Medical Established Patient wi th Colette Almaguer [facility] 08/25/2023 Last Documented On 4 8:38AM ; [facility] Visit for: therapeutic drug monitoring Medical Established Patient with Colette Almaguer [facility] 08/25/2023 Last Documented On 4 8:38AM ; [facility] [Z68.26 - Body mass index [B VT] 26.0-26.9, adult] assessment of body mass index Medical Established Patient with Colette Almaguer [facility] 07/15/2023 Last Documented On 4 8:36AM ; [facility] Nicotine dependence Medical Established Patient with Colette Almaguer [facility] 07/15/2023 Last Documented On 4 8:36AM ; [facility] 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 Medical Established Patient with Colette Almaguer [facility] 07/15/2023 Last Documented On 4 8:36AM ; [facility] Viral hepatitis C Medical Established Patient wi th Colette Almaguer [facility] 07/15/2023 Last Documented On 4 8:36AM ; [facility] Viral hepatitis C Medical Established Patient wi th Colette Almaguer [facility] 07/15/2023 Last Documented On 4 8:36AM ; [facility] Visit for: screening for depression [facility] Established Patient with Colette Almaguer [facility] 07/15/2023 Last Documented On 4 8:36AM ; [facility] [Z68.25 - Body mass index [B VT] 25.0-25.9, adult] assessment of body mass index Medical Established Patient with Colette Almaguer [facility] 06/03/2023 Last Documented On 4 9:49AM ; [facility] Nicotine dependence Medical Established Patient with Colette Almaguer [facility] 06/03/2023 Last Documented On 4 9:49AM ; [facility] 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 Medical Established Patient with Colette Almaguer [facility] 06/03/2023 Last Documented On 4 9:49AM ; [facility] Viral hepatitis C Medical Established Patient wi th Colette Almaguer [facility] 06/03/2023 Last Documented On 4 9:49AM ; [facility] Visit for: screening for STD Medical Est ablished Patient with Colette Almaguer [facility] 06/03/2023 Last Documented On 4 9:49AM ; [facility] [Z68.24 - Body mass index [B VT] 24.0-24.9, adult] assessment of body mass index Medical Established Patient with Colette Almaguer [facility] 05/10/2023 Last Documented On 4 8:24AM ; [facility] Generalized anxiety disorder Medical Est ablished Patient with Colette Almaguer [facility] 05/10/2023 Last Documented On 4 8:24AM ; [facility] Nicotine dependence Medical Established Patient with Colette Almaguer [facility] 05/10/2023 Last Documented On 4 8:24AM ; [facility] Onychomycosis of the toenails Medical Es tablished Patient with Colette Almaguer [facility] 05/10/2023 Last Documented On 4 8:24AM ; [facility] Otogenic otalgia of right ear Medical Es tablished Patient with Colette Almaguer [facility] 05/10/2023 Last Documented On 4 8:24AM ; [facility] 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 Medical Established Patient with Colette Almaguer [facility] 05/10/2023 Last Documented On 4 8:24AM ; [facility] Viral hepatitis C Medical Established Patient wi th Colette Almaguer [facility] 05/10/2023 Last Documented On 4 8:24AM ; [facility] [Z68.24 - Body mass index [B VT] 24.0-24.9, adult] assessment of body mass index Open Access - Established with Colette Almaguer [facility] 04/26/2023 Last Documented On 4 8:20AM ; [facility] Nicotine dependence Open Access - Established wi th Colette Almaguer [facility] 04/26/2023 Last Documented On 4 8:20AM ; [facility] Otogenic otalgia of right ear Open Acces s - Established with Colette Almaguer [facility] 04/26/2023 Last Documented On 4 8:20AM ; [facility] 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 Open Access - Established with Colette Almaguer [facility] 04/26/2023 Last Documented On 4 8:20AM ; [facility] Generalized anxiety disorder BH Established [place] ent with Bri Barrow [facility] 04/12/2023 Last Documented On 4 7:57PM ; [facility] Nicotine dependence Established Patient with Bri Barrow [employer] 04/12/2023 Last Documented On 4 7:57PM ; [facility] [Z68.23 - Body mass index [B VT] 23.0-23.9, adult] assessment of body mass index Medical New Patient with Colette Almaguer [facility] 04/12/2023 Last Documented On 4 8:31AM ; [facility] Acute otitis media of left ear Medical N ew Patient with Colette Almaguer [facility] 04/12/2023 Last Documented On 4 8:31AM ; [facility] Diabetes Risk Test Score was three score 04/12/2023 Medical New Patient with Colette Almaguer [facility] 04/12/2023 Last Documented On 4 8:31AM ; [facility] Nicotine dependence Medical New Patient with Prosper Almaguer [facility] 04/12/2023 Last Documented On 4 8:31AM ; [facility] Screening for HIV Medical New Patient with Francois Almaguer [facility] 04/12/2023 Last Documented On 4 8:31AM ; [facility] Upper respiratory infection Medical New Patient with Colette Almaguer [facility] 04/12/2023 Last Documented On 4 8:31AM ; [facility] Visit for: screening for dig estive system disorders Medical New Patient with Colette Almaguer [facility] 04/12/2023 Last Documented On 4 8:31AM ; [facility] Work Phone: [phone]) 774-155812-30-2024 History general Narrative - Reported Includes: Medical History in patient's chart Description Last Updated No previous suicide attempt 03/06/2024 Last Documented On 4 5:21PM ; [facility] Safety Measures Discussed lo susanne and national crisis contact information and encouraged patient to go to the nearest ER if SI occurs and mood 03/06/2024 Last Documented On 4 5:21PM ; [facility] No previous hospitalizations 07/15/2023 Last Documented On 4 8:36AM ; [facility] History of viral hepatitis C 04/12/2023 Last Documented On 4 8:31AM ; [facility] Recent immunization for flu 04/12/2023 Last Documented On 4 8:31AM ; [facility] Work Phone: 1([phone]) 227-550612-30-2024 History general Narrative - Reported Includes: Medical History in patient's chart Description Last Updated No previous suicide attempt 03/06/2024 Last Documented On 4 5:21PM ; [facility] Safety [facility] Discussed lo susanne and national crisis contact information and encouraged patient to go to the nearest ER if SI occurs and mood 03/06/2024 Last Documented On 4 5:21PM ; [facility] No previous hospitalizations 07/15/2023 Last Documented On 4 8:36AM ; [facility] History of viral hepatitis C 04/12/2023 Last Documented On 4 8:31AM ; [facility] Recent immunization for flu 04/12/2023 Last Documented On 4 8:31AM ; [facility] Work Phone: [phone] 515-204812-30-2024 History general Narrative - Reported Includes: Medical History in patient's chart Description Last Updated No previous suicide attempt 03/06/2024 Last Documented On 4 5:21PM ; [facility] Safety Measures Discussed lo susanne and national crisis contact information and encouraged patient to go to the nearest ER if SI occurs and mood 03/06/2024 Last Documented On 4 5:21PM ; [facility] No previous hospitalizations 07/15/2023 Last Documented On 4 8:36AM ; [facility] History of viral hepatitis C 04/12/2023 Last Documented On 4 8:31AM ; [facility] Recent immunization for flu 04/12/2023 Last Documented On 4 8:31AM ; [facility] Work Phone: [phone]) 487-668312-30-2024 Progress note* Progress note Date Encounter Last Documented by 03/06/2024 Medical Established Patient Last documented on 03/06/2024; 5:06 PM, Vanesa RILEY; [facility] Active Problems & Conditions - B35.1 - Dermatophytosis Onychomycosis Toenails - F41.1 - Generalized Anxiety Disorder - B17.10 - Hepatitis, C Virus - F15.20 - Methamphetamine Dependence - in Remission - F17.200 - Nicotine Dependence - F11.21 - Opioid Dependence in Remission - H92.01 - Otalgia Otogenic Right Ear - M26.601 - Temporomandibular Joint-pain Dysfunction Syndrome Right Chief Complaint The Chief Complaint is: Patient is having facial pain. Patient has dx of TMJ. Getting steroid injections for TMJ and sees a facial surgeon on 05/31/24.Patient is asking for increase of gabapenin (patient has been out of med for awhile) Patient would like something for pain. Referred Here Not referred by urgent care clinic. Referred by emergency room. Prior encounters. - Data to be reviewed: no clinical lab tests History of Present Illness Raheem Cohn is a 49 year old male. - Allergy list reviewed - Reviewed Medications Patient is a 49 year old male presenting for med refill, jaw pain, and toe fungus. 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 Patient relates that pain is incredibly severe. Patient relates that they are a previous opioid user that has not used in over 1 year. Patient relates that pain is so bad they have though about using again. Patient relates that low dose dc was not effective in August but thinks a higher dose will be effective. Patient states they will see facial surgeon in the next month. Patient states nothing makes symptoms better or worse at this time. Patient relates that they also wish to stop smoking. Patient has no other issues at this time Current Medication - Calcium Magnesium Zinc 333-133-5 MG Oral Tablet 0 days, 0 refills - CoQ-10 150 MG Oral Capsule Take 1 capsule by mouth daily, 30 days, 5 refills - [facility] Iron 240 (27 Fe) MG Oral Tablet three timesd daily, 0 days, 0 refills - Daily Value Multivitamin Oral Tablet Take 1 tablet by mouth daily, 30 days, 11 refills - Epclusa 400-100 MG Oral Tablet TAKE 1 TABLET BY MOUTH ONCE DAILY, 28 days, 2 refills - Indomethacin 25 MG Oral Capsule one tablet three times daily, 30 days, 0 refills - Mupirocin 2% External Ointment 7 days, 0 refills - Niacin 100 MG Oral Tablet Take 2 tablets by mouth daily, 30 days, 5 refills - Nortriptyline HCl 25 MG Oral Capsule three times daily, 30 days, 0 refills - Nystatin 243155 UNIT/ML Mouth/Throat Suspension swish with 5mL of solution for as long as possible then swallow twice per day. Do not Eat or Drink anything for up to 30 minutes after use., 10 days, 0 refills - QUEtiapine Fumarate 100 MG Oral Tablet 30 days, 0 refills - valACYclovir HCl 500 MG Oral Tablet once daily, 3 days, 0 refills - Vitamin A 2400 MCG (8000 UT) Oral Capsule three times daily, 0 days, 0 refills Past Medical/Surgical History Reported: No Safety Measures. Medical: No previous hospitalizations. Diagnoses: Viral hepatitis C Surgical: - Hand surgery Right Social History Environmental Exposure: Secondhand cigarette smoke exposure. Tobacco use: Cigarette smoking Light (1-10/day). Not using electronic cigarettes/vaping. Alcohol: Not using alcohol. Drug Use: Not using drugs denied by patient. Sexual: Sexually active, sexual orientation Straight (not lesbian or strange), and gender identity Male. No report of control being practiced. Allergies - NO KNOWN ENVIRONMENTAL ALLERGIES - NO KNOWN FOOD ALLERGIES - Penicillin V Reaction: Hives / Urticaria, Skin Rashes / Eruption of skin Family History Maternal: Type 2 diabetes mellitus Review Of Systems Head: Head symptoms. No headache. Pain behind the ear, facial pain, and pain in the cheek. No concerns about cosmetic appearance. Eyes: No eye symptoms, no eye symptoms laterality, and no vision problems. Otolaryngeal: No ear symptoms, no nasal symptoms, no nose and sinus finding, no throat symptoms, and no oral cavity symptoms. Pain in the jaw. Cardiovascular: No cardiovascular symptoms and no chest pain or discomfort. Pulmonary: No pulmonary symptoms. Gastrointestinal: No gastrointestinal symptoms. Endocrine: No endocrine symptoms and no polydipsia. Musculoskeletal: No musculoskeletal symptoms. Neurological: No neurological symptoms, no dizziness, and no vertigo. Psychological: No psychological symptoms, no anxiety, and no depression. Skin: Skin symptoms Left big toe fungus. ROS in HPI. Physical Findings - Vitals taken 03/06/2024 04:05 pm BP-Sitting L127/83 mmHg BP Cuff SizeRegular Pulse Rate-Qdsrraf96 bpm Respiration Rate18 per min Temp-Oral98 F Ihdlek97 in Usdcqu571 lbs Body Mass Index27 kg/m2 Body Surface Area2 m2 Oxygen Rzcspseduj04 % - Vitals taken 03/06/2024 04:24 pm BP-Sitting L119/74 mmHg BP Cuff SizeRegular Vital Signs: - Systolic blood pressure < 130 mmHg. - Diastolic Blood Pressure < 80 mmHg. General Appearance: - Awake. - Alert. - Well developed. - Well nourished. - Body odor was normal. - In no acute distress. Head: Face: - Examination was performed Jaw right side clicking and pain. Nose: General/bilateral: Discharge: - No nasal discharge. Oral Cavity: - General condition was good. Lungs: - Normal. - Respiration rhythm and depth was normal. - Clear to auscultation. Cardiovascular: Auscultation: - Normal. Heart Rate And Rhythm: - Normal. Heart Sounds: - Normal. Abdomen: Visual Inspection: - Abdomen was normal on visual inspection. Musculoskeletal System: General/bilateral: - Abnormal movement of all extremities. Neurological: - Oriented to time, place, and person. Psychiatric: - Expression of emotions normal. Skin: - General appearance of skin Left great to yellow and disformed verticle growth. General body state: - In good general health. No Significant Findings: - No significant findings. Tests Urinalysis Was Performed: Urine color clear yellow. Laboratory-based Chemistry: Drug Screen: Urine drug screen by multiple class procedure. THC Not Present, PCP Not Present, OXY Not Present, KPN692 Not Present, MTD Not Present, MET Not Present, MDMA Not Present, MARCE Not Present, BZO Not Present, BUP Not Present, BAR Not Present, AMP Not Present, and FYL Not Present. Other Laboratory Tests: Screening for sexually transmitted infections was not performed. Assessment - Z68.27 - Body mass index [BMI] 27.0-27.9, adult - Z68.27 - Body mass index [BMI] 27.0-27.9, adult - M26.601 - Right temporomandibular joint disorder, unspecified - B17.10 - Acute hepatitis C without hepatic coma - B35.1 - Tinea unguium - F17.200 - Nicotine dependence, unspecified, uncomplicated - F41.1 - Generalized anxiety disorder Therapy - Patient refused flu vaccine. Discussed benefits of flu vaccine with Patient. Counseling/Education - Does not want to stop using current contraception - Wishing to stop smoking Discussed Quit Line resources - Discussed nutritional needs teach healthy choices including fruits and vegetables - Patient education about a proper diet - Not requesting contraception - Discussed concerns about exercise: promote physical activity Plan StartCited- Acute hepatitis C without hepatic coma Lab: HCV RT-PCR, Quant (Non-Graph) EndCited StartCited- Nicotine dependence, unspecified, uncomplicated Varenicline Tartrate (Starter) 0.5 MG X 11 & 1 MG X 42 tablet Take as package instructs.(0.5mg once a day for days 1-3)(0.5mg daily two times a day for days 4-7)(1mg two times daily for the remainder.) Take with food., 30 days, 0 refills EndCited StartCited- Other CoQ-10 150 MG capsule Take 1 capsule by mouth daily, 30 days, 5 refills EndCited StartCited- Right temporomandibular joint disorder, unspecified Gabapentin 300 MG capsule Take 1 capsule every 8 hours as needed for TMJ pain until they can see facial surgeon., 30 days, 0 refills EndCited StartCited- Tinea unguium Terbinafine HCl 1% gram Place on affected area once daily and follow up with pediatrist., 30 days, 0 refills EndCited Patient to use toe fungus cream as needed. Patient to take chantix as package describes. Patient to take gabapentin as prescribed habit forming contract signed. Patient to follow up in 1 month for refills. Patient to follow up with podiatry, pain management, and jaw surgeon. Care Team - Colette Almaguer CNP Health Reminders - Assess BMI satisfied 03/06/2024. - Assess Tobacco Use satisfied 03/06/2024. - Follow Up Plan BMI Management satisfied 03/06/2024. - Smoking & Tobacco Cessation Intervention and Counseling satisfied 03/06/2024. User Defined 1 Not planning a in the next year. [facility]12-30-2024 Progress note* Progress note Date Encounter Last Documented by 03/06/2024 Established Patient Last docu mented on 03/06/2024; 5:21 PM, Patrica KIM; [facility] Active Problems & Conditions - B35.1 - Dermatophytosis Onychomycosis Toenails - F41.1 - Generalized Anxiety Disorder - B17.10 - Hepatitis, C Virus - F15.20 - Methamphetamine Dependence - in Remission - F17.200 - Nicotine Dependence - F11.21 - Opioid Dependence in Remission - H92.01 - Otalgia Otogenic Right Ear - M26.601 - Temporomandibular Joint-pain Dysfunction Syndrome Right Chief Complaint The Chief Complaint is: Worsening mouth/jaw pain - asking for pain medications. Subjective *PHQ of 9, PAULA of 15. Patient present for worsening jaw/mouth pain - requesting pain medications. Reports when he took Gabapentin previously, he felt it wasn't helpful at the current dose it was at. Patient admits he tried a friend's 600mg Gabapentin which was somewhat helpful and is asking to be restarted on it - reviewed Habit Forming contract. Reports he is 21 months clean and sober from Meth and Heroin and is still seeing a counselor through [facility]. Admits that if he cannot get medication to help with his pain he was going to find a way to use Fentanyl and . Patient states he doesn't want to do that but he feels frustrated and is in pain. States he called his counselor and told her how he was feeling and walked through his relapse prevention plan. States I will go to the hospital and tell them I want to before I would actually do something to myself - he has access to local and national crisis supports. Denies any other BH complaints. History of Present Illness Raheem Cohn is a 49 year old male. - Normal appetite - Irritability - Anxiety - Depression - Initial insomnia - Hard to stay asleep due to pain - Energy level is good - C-SSRS: Risk score assessment is Moderate - Easily distracted - Racing thoughts - Craving - No social isolation - No Triggers - - Progress: no change - UDS results are appropriate Current Medication - Calcium Magnesium Zinc 333-133-5 MG Oral Tablet 0 days, 0 refills - CoQ-10 150 MG Oral Capsule Take 1 capsule by mouth daily, 30 days, 5 refills - CoQ-10 150 MG Oral Capsule Take 1 capsule by mouth daily, 30 days, 5 refills - [facility] Iron 240 (27 Fe) MG Oral Tablet three timesd daily, 0 days, 0 refills - Daily Value Multivitamin Oral Tablet Take 1 tablet by mouth daily, 30 days, 11 refills - Epclusa 400-100 MG Oral Tablet TAKE 1 TABLET BY MOUTH ONCE DAILY, 28 days, 2 refills - Gabapentin 300 MG Oral Capsule Take 1 capsule every 8 hours as needed for TMJ pain until they can see facial surgeon., 30 days, 0 refills - Indomethacin 25 MG Oral Capsule one tablet three times daily, 30 days, 0 refills - Mupirocin 2% External Ointment 7 days, 0 refills - Niacin 100 MG Oral Tablet Take 2 tablets by mouth daily, 30 days, 5 refills - Nortriptyline HCl 25 MG Oral Capsule three times daily, 30 days, 0 refills - Nystatin 573880 UNIT/ML Mouth/Throat Suspension swish with 5mL of solution for as long as possible then swallow twice per day. Do not Eat or Drink anything for up to 30 minutes after use., 10 days, 0 refills - QUEtiapine Fumarate 100 MG Oral Tablet 30 days, 0 refills - Terbinafine HCl 1% External Cream Place on affected area once daily and follow up with pediatrist., 30 days, 0 refills - valACYclovir HCl 500 MG Oral Tablet once daily, 3 days, 0 refills - Varenicline Tartrate (Starter) 0.5 MG X 11 & 1 MG X 42 Oral Tablet Therapy Pack Take as package instructs.(0.5mg once a day for days 1-3)(0.5mg daily two times a day for days 4-7)(1mg two times daily for the remainder.) Take with food., 30 days, 0 refills - Vitamin A 2400 MCG (8000 UT) Oral Capsule three times daily, 0 days, 0 refills Past Medical/Surgical History Other: No previous suicide attempt Reported: Safety Measures Discussed local and national crisis contact information and encouraged patient to go to the nearest ER if SI occurs and mood. Medical: No previous hospitalizations. Immunization History: Recent immunization for flu. Diagnoses: Viral hepatitis C Surgical: - Hand surgery Right Social History Medical: Chronic illness. Environmental Exposure: Secondhand cigarette smoke exposure. Tobacco use: Cigarette smoking Light (1-10/day). Not using electronic cigarettes/vaping. Current smoker. Alcohol: Not using alcohol. Drug Use: Recovering from drug addiction 21 months clean and sober from meth and heroin. Housing And Economic Circumstances: Lives in a treatment center and housing stress. Work: Unemployed. Sexual: Sexually active, sexual orientation Straight (not lesbian or strange), and gender identity Male. No report of control being practiced. Functional: Psychosocial/Sober Support is sufficient. - Substance Use: Recovery Stress about transportation. Allergies - NO KNOWN ENVIRONMENTAL ALLERGIES - NO KNOWN FOOD ALLERGIES - Penicillin V Reaction: Hives / Urticaria, Skin Rashes / Eruption of skin Family History Maternal: Type 2 diabetes mellitus Physical Findings General Appearance: - Patient appeared uncomfortable. - Appears distressed. Neurological: - Cognitive Functions was Normal. - Estimated intelligence was normal. - Oriented to time, place, and person. - No hallucinations. - Judgement was not impaired. Speech: - Is Normal. Psychiatric: - Mood was frustrated. - Mood was irritable. - Mood was one of pain. - Attitude Manipulative. Appearance: - Normal. Demonstrated Behavior: - Eye Contact Appropriate. Affect: - Congruent with the mood. Thought Processes: - Not impaired. Thought Content: - Suicidal ideation. - Passive thoughts of . - Suicidal plans. - Revealed no impairment. - Insight was intact. - No delusions. - No suicidal intent. - No homicidal ideations. - No homicidal plans. - No homicidal intent. Past Medical: - No repetitive self injurious behavior. - No access to weapons / guns in home. Assessment - Methamphetamine dependence - in remission [F15.20 - Other stimulant dependence, uncomplicated] - Severe opioid dependence in sustained remission [F11.21 - Opioid dependence, in remission] - Nicotine dependence [F17.200 - Nicotine dependence, unspecified, uncomplicated] - Generalized anxiety disorder [F41.1 - Generalized anxiety disorder] - RNDx tobacco abuse [Z72.0 - Tobacco use] Therapy - OARRS report was reviewed. - Developmental/Behavioral Screening & Testing - PHQ9 and Developmental/Behavioral Screening & Testing - GAD7. - Brief solution-focused therapy. - Intervention and counseling on cessation of tobacco use, 3-10 minutes. - Adherent with medications. - Visit 30 Minutes. - Referral to mental health team. - Plan - WATERSIDE WORKER to restart Gabapentin 300mg TID for TMJ pain and patient is agreeable. and Collaborated with patient and provider: *Habit forming completed for Gabapentin. Counseling/Education - Not wishing to stop using tobacco offered Quit Line information P and WATERSIDE WORKER discussed patients overall functioning, completed his screenings, discuss his mood, recovery, and medications today. P noted patient is in signifcant amounts of pain that's increasing his cravings to use and SI. [facility] assessed risk for safety and noted patient does have a safety plan/relapse plan with his counselor and access to crisis contacts if he were to need them in the future. [facility] offered active and supportive listening, normalized emotions and feelings related to his pain. Plan - Provided Crisis contact: #888(National Hotline) & #627947(Textline) - Referral to Community Mental Health Patient to follow up as scheduled. Care Team - Colette Almaguer CNP Health Reminders - Assess Tobacco Use satisfied 03/06/2024. - PAULA-2 satisfied 03/06/2024. - PHQ9 / PHQA satisfied 03/06/2024. - Smoking & Tobacco Cessation Intervention and Counseling satisfied 03/06/2024. User Defined 1 Has wished to be or could go to sleep & not awake , Has had thoughts about killing self. , and Has thought about how they would end their life: . Has not had thoughts or intention of acting on them. , Has not started to work out details of how to kill self. , Has never historically prepared to end their life, and Has not engaged in self-harm behaviors. . Not planning a in the next year. PAULA-7 score was 15 03/06/2024 [PAULA-7] Feeling nervous, anxious or on edge? + 3 pt : Nearly every day, [PAULA-7] Not being able to stop or control worrying? + 2 pt : More than half the days, [PAULA-7] Worrying too much about different things? + 2 pt : More than half the days, [PAULA-7] Trouble relaxing? + 3 pt : Nearly every day, [PAULA-7] Being so restless that it's hard to sit still? + 3 pt : Nearly every day, [PAULA- 7] Becoming easily annoyed or irritable? + 2 pt : More than half the days, [PAULA-7] Feeling afraid as if something awful might happen? + 0 pt : Not at all, Patient Health Questionnaire 9-Item total score was nine 03/06/2024 If you checked off problems, how difficult is it for you to do your work? + : Very difficult, [PHQ-9-1] Little interest or pleasure in doing things? + 0 pt : Not at all, [PHQ-9-2] Feeling down, depressed, or hopeless? + 2 pt : More than half the days, [PHQ-9-3] Trouble falling or staying asleep or sleeping too much? + 3 pt : Nearly every day, [PHQ-9-4] Feeling tired or having little energy? + 3 pt : Nearly every day, [PHQ-9-5] Poor appetite or overeating? + 0 pt : Not at all, [PHQ-9-6] Feeling bad about yourself-or that you are a failure + 0 pt : Not at all, [PHQ-9-7] Trouble concentrating on things such as reading the newspaper + 0 pt : Not at all, [PHQ-9-8] Moving or speaking so slowly that other people have noticed. + 0 pt : Not at all, [PHQ-9-9] Thoughts that you would be better off or hurting yourself? + 1 pt : Several days, and PAULA If you checked off problems, how difficult is it for you to do your work, take care of things, or get along? Very difficult. [facility]12-30-2024 Reason for referral (narrative)* Date Encounter Description Provider Reason for Referral 03/06/24 Established Patient Patrica KIM Referral To Mental Health Team; C-SSRS: Provided Crisis contact #[phone] & Text line #[id number]; C-SSRS: Referral to Community Mental Health 05/10/23 Medical Established Patient Colette Almaguer KARUNA Consultation with hepatologi st or parts representative [facility] Work Phone: [phone]) 815-189212-30-2024 Instructions Includes: Instructions for all patient encounters Instructions to patient Intervention and counseling on cessation of tobacco use, 3-10 minutes Last Documented On 4 4:42PM ; [facility] Education and Decision Aids were provided during visit for: Discussed nutritional needs teach healthy choices including fruits and vegetables Last Documented On 4 4:10PM ; [facility] Patient education about a pr oper diet Last Documented On 4 4:10PM ; [facility] Discussed concerns about exe rcise : promote physical activity Last Documented On 4 4:10PM ; [facility] Not requesting contraception Last Documented On 4 4:10PM ; [facility] Discussed nutritional needs teach healthy choices including fruits and vegetables Last Documented On 4 1:16PM ; [facility] Patient education about a pr oper diet Last Documented On 4 1:16PM ; [facility] Discussed concerns about exe rcise : promote physical activity Last Documented On 4 1:16PM ; [facility] Discussed nutritional needs teach healthy choices including fruits and vegetables Last Documented On 4 1:19PM ; [facility] Patient education about a pr oper diet Last Documented On 4 1:19PM ; [facility] Discussed concerns about exe rcise : promote physical activity Last Documented On 4 1:19PM ; [facility] Discussed nutritional needs teach healthy choices including fruits and vegetables Last Documented On 4 1:14PM ; [facility] Patient education about a pr oper diet Last Documented On 4 1:14PM ; [facility] Discussed concerns about exe rcise : promote physical activity Last Documented On 4 1:14PM ; [facility] Discussed nutritional needs teach healthy choices including fruits and vegetables Last Documented On 4 1:17PM ; [facility] Patient education about a pr oper diet Last Documented On 4 1:17PM ; [facility] Discussed concerns about exe rcise : promote physical activity Last Documented On 4 1:17PM ; [facility] Discussed concerns about uns afe sexual practices Last Documented On 4 1:29PM ; [facility] Discussed concerns about tob acco use Last Documented On 4 1:29PM ; [facility] Discussed concerns about alc ohol use Last Documented On 4 1:29PM ; [facility] Discussed concerns about ill icit drug use Last Documented On 4 1:29PM ; [facility] Patient has agreed to visits every 4 weeks Last Documented On 4 1:29PM ; [facility] Patient aware not to share n eedles, razors, toothbrushes, or nail clippers Last Documented On 4 1:29PM ; [facility] Counseled on medication and herbal product interactions Last Documented On 4 1:29PM ; [facility] Patient is treatment naive Last Documented On 4 1:29PM ; [facility] Patient has an estimated lif e expectancy of 12 months or greater. Last Documented On 4 1:29PM ; [facility] Patient counseled on how to take Hepatitis C Medications Last Documented On 4 1:29PM ; [facility] Patient agreed to labs (CBC, CMP, HCV) every 4 weeks Last Documented On 4 1:29PM ; [facility] Discussed nutritional needs teach healthy choices including fruits and vegetables Last Documented On 4 2:43PM ; [facility] Patient education about a pr oper diet Last Documented On 4 2:43PM ; [facility] Discussed concerns about exe rcise : promote physical activity Last Documented On 4 2:43PM ; [facility] *[facility] offered active and supp ortive listening, normalized emotions and feelings, and processed ~current stressors. ~*Reviewed relapse prevention skills and positive support activities Last Documented On 4 7:56PM ; [facility] Discussed nutritional needs teach healthy choices including fruits and vegetables Last Documented On 4 1:21PM ; [facility] Patient education about a pr oper diet Last Documented On 4 1:21PM ; [facility] Discussed concerns about exe rcise : promote physical activity Last Documented On 4 1:21PM ; [facility] Patient has agreed to visits every 4 weeks Last Documented On 4 1:59PM ; [facility] Patient aware not to share n eedles, razors, toothbrushes, or nail clippers Last Documented On 4 1:59PM ; [facility] Counseled on medication and herbal product interactions Last Documented On 4 1:59PM ; [facility] Patient is treatment naive Last Documented On 4 1:59PM ; [facility] Patient has an estimated lif e expectancy of 12 months or greater. Last Documented On 4 1:59PM ; [facility] Patient counseled on how to take Hepatitis C Medications Last Documented On 4 1:59PM ; [facility] Patient agreed to labs (CBC, CMP, HCV) every 4 weeks Last Documented On 4 1:59PM ; [facility] Work Phone: 1([phone]) 117-573612-30-2024 Instructions Includes: Instructions for all patient encounters Instructions to patient Intervention and counseling on cessation of tobacco use, 3-10 minutes Last Documented On 4 4:42PM ; [facility] Education and Decision Aids were provided during visit for: Discussed nutritional needs teach healthy choices including fruits and vegetables Last Documented On 4 4:10PM ; [facility] Patient education about a pr oper diet Last Documented On 4 4:10PM ; [facility] Discussed concerns about exe rcise : promote physical activity Last Documented On 4 4:10PM ; [facility] Not requesting contraception Last Documented On 4 4:10PM ; [facility] BHP and WATERSIDE WORKER discussed patient s overall functioning, completed his BH screenings, discuss his mood, recovery, and medications today. ~P noted patient is in signifcant amounts of pain that's increasing his cravings to use and SI. ~[facility] assessed risk for safety and noted patient does have a safety plan/relapse plan with his counselor and access to crisis contacts if he were to need them in the future. ~[facility] offered active and supportive listening, normalized emotions and feelings related to his pain Last Documented On 4 5:20PM ; [facility] Discussed nutritional needs teach healthy choices including fruits and vegetables Last Documented On 4 1:16PM ; [facility] Patient education about a pr oper diet Last Documented On 4 1:16PM ; [facility] Discussed concerns about exe rcise : promote physical activity Last Documented On 4 1:16PM ; [facility] Discussed nutritional needs teach healthy choices including fruits and vegetables Last Documented On 4 1:19PM ; [facility] Patient education about a pr oper diet Last Documented On 4 1:19PM ; [facility] Discussed concerns about exe rcise : promote physical activity Last Documented On 4 1:19PM ; [facility] Discussed nutritional needs teach healthy choices including fruits and vegetables Last Documented On 4 1:14PM ; [facility] Patient education about a pr oper diet Last Documented On 4 1:14PM ; [facility] Discussed concerns about exe rcise : promote physical activity Last Documented On 4 1:14PM ; [facility] Discussed nutritional needs teach healthy choices including fruits and vegetables Last Documented On 4 1:17PM ; [facility] Patient education about a pr oper diet Last Documented On 4 1:17PM ; [facility] Discussed concerns about exe rcise : promote physical activity Last Documented On 4 1:17PM ; [facility] Discussed concerns about uns afe sexual practices Last Documented On 4 1:29PM ; [facility] Discussed concerns about tob acco use Last Documented On 4 1:29PM ; [facility] Discussed concerns about alc ohol use Last Documented On 4 1:29PM ; [facility] Discussed concerns about ill icit drug use Last Documented On 4 1:29PM ; [facility] Patient has agreed to visits every 4 weeks Last Documented On 4 1:29PM ; [facility] Patient aware not to share n eedles, razors, toothbrushes, or nail clippers Last Documented On 4 1:29PM ; [facility] Counseled on medication and herbal product interactions Last Documented On 4 1:29PM ; [facility] Patient is treatment naive Last Documented On 4 1:29PM ; [facility] Patient has an estimated lif e expectancy of 12 months or greater. Last Documented On 4 1:29PM ; [facility] Patient counseled on how to take Hepatitis C Medications Last Documented On 4 1:29PM ; [facility] Patient agreed to labs (CBC, CMP, HCV) every 4 weeks Last Documented On 4 1:29PM ; [facility] Discussed nutritional needs teach healthy choices including fruits and vegetables Last Documented On 4 2:43PM ; [facility] Patient education about a pr oper diet Last Documented On 4 2:43PM ; [facility] Discussed concerns about exe rcise : promote physical activity Last Documented On 4 2:43PM ; [facility] *[facility] offered active and supp ortive listening, normalized emotions and feelings, and processed ~current stressors. ~*Reviewed relapse prevention skills and positive support activities Last Documented On 4 7:56PM ; [facility] Discussed nutritional needs teach healthy choices including fruits and vegetables Last Documented On 4 1:21PM ; [facility] Patient education about a pr oper diet Last Documented On 4 1:21PM ; [facility] Discussed concerns about exe rcise : promote physical activity Last Documented On 4 1:21PM ; [facility] Patient has agreed to visits every 4 weeks Last Documented On 4 1:59PM ; [facility] Patient aware not to share n eedles, razors, toothbrushes, or nail clippers Last Documented On 4 1:59PM ; [facility] Counseled on medication and herbal product interactions Last Documented On 4 1:59PM ; [facility] Patient is treatment naive Last Documented On 1:59PM ; [facility] Patient has an estimated lif e expectancy of 12 months or greater. Last Documented On 4 1:59PM ; [facility] Patient counseled on how to take Hepatitis C Medications Last Documented On 4 1:59PM ; [facility] Patient agreed to labs (CBC, CMP, HCV) every 4 weeks Last Documented On 4 1:59PM ; [facility] Work Phone: 1(267) 476-477412-10-2024 History of Present illness Narrative* Carrington Fritz MD - 02/15/2024 10:00 AM EST Subjective Patient ID: Raheem Cohn Jr. is a 49 y.o. male. Comes in for discussion of his ongoing jaw/throat/palate/swallowing issues. Nothing with the symptoms has really changed. He did get some relief of pain with Toradol given by the ER. He notes that anxiety creates some of the sensation of not swallowing correctly and when he had gentle sedation for i maging his swallowing was better transiently. He is not running a fever. The following portions of the patient's history were reviewed and updated as appropriate: allergies, current medications, past medical history, past social history, past surgical history, and problemlist. Review of Systems Objective Physical Exam Constitutional: Comments: He always seems a little bit pressured in his speech but he is appropriately oriented andinteracts appropriately. HENT: Mouth/Throat: Comments: No thrush. He does appear to have atrophy of his gums. I do not see any other abnormalityin his mouth. Neck: Comments: No neck mass Lymphadenopathy: Cervical: No cervical adenopathy. Assessment/Plan Reviewed with him at some length. I think much of his issue is related to his edentulous status andis aggravated by his anxiety. He does have specialty evaluation upcoming at [facility] but not until May. In the interim the goal will be gaining some kind of control over the symptoms that bother him without doing harm. He has a substance use history that involved methamphetamine. He remains in a program where he is monitored and tested. There are obvious risks, and I discussed thosedirectly with him, regarding anxiolytic medication and its use will need to be monitored carefully.Toradol can not be continued terminologist for safety reasons but he might derive some benefit from indomethacin. He can continue with good oral hygiene and he feels benefit from drinking plenty of waterwhich is not harmful. Further pending his response to medication. Diagnoses and all orders for this visit: Anxiety - clonazePAM (KlonoPIN) 0.5 mg tablet; Take 1 tablet (0.5 mg total) by mouth in the morning and 1 tablet (0.5 mg total) before bedtime. TMJ (temporomandibular joint disorder) - indomethacin (INDOCIN) 25 mg capsule; Take 1 capsule (25 mg total) by mouth in the morning and 1 capsule (25 mg total) at noon and 1 capsule (25 mg total) in the evening. Take with meals. Angular cheilosis - mupirocin (BACTROBAN) 2 % ointment; Apply 1 Application topically 3 (three) times a day. documented in this encounterHolden [facility] HospitalPinoyTravel12-04-2024 Telephone encounter Note* Telephone Encounter - Kory Kirkland APRN.[facility] - 02/09/2024 2:41 PM EST I saw him in the past for his ear. He needs to be scheduled with the appropriate provider for this visit which is not me. I do not think this is even an ENT issue. But he can start with comprehensive. [facility] Work Phone: [phone]) 975-103912-04-2024 Miscellaneous Notes* Telephone Encounter - Kory Kirkland APRN.CNP - 02/09/2024 2:41 PM EST I saw him in the past for his ear. He needs to be scheduled with the appropriate provider for this visit which is not me. I do not think this is even an ENT issue. But he can start with comprehensive. * Telephone Encounter - Madeleine Crane RN - 02/09/2024 1:43 PM EST Spoke with patient, states he has no way to get to the ED and [facility] anything for him. States he will wait until appt on Wednesday and if he is told to go to the ED, he will go then. I explained to the patient that if this is life threatening and if his cheek from the earthat he needs to go to the ED. Patient refusing. * Telephone Encounter - Kory Kirkland APRN.CNP - 02/09/2024 1:33 PM EST He absolutely needs to go to the ED * Telephone Encounter - Zulema De Leon RN - 02/09/2024 12:48 PM EST Call placed to patient but unable to reach. Secure voicemail left instructing patient if situation is life threatning best to go to Emergency Room for evaluation. RENEE 12/08/23: Plan: - I personally interpreted and reviewed audiogram which showed essentially normal hearing with typeA tympanometry bilaterally. On exam external auditory canal's are patent and tympanic membrane's are clear and intact. - CT of the temporal bones to rule out any inner ear abnormality. - Consult placed to dentistry - Consult placed to physical therapy - Consult to [facility] - Follow-up with me as needed [facility]Reg[facility] Telephone encounter Note * Telephone Encounter - Madeleine Crane RN - 02/09/2024 1:43 PM EST Spoke with patient, states he has no way to get to the ED and [facility] won't do anything for him. States he will wait until appt on Wednesday and if he is told to go to the ED, he will go then. I explained to the patient that if this is life threatening and if his cheek from the earthat he needs to go to the ED. Patient refusing. [facility]12-04-2024 Telephone encounter Note* Telephone Encounter - Kory Kirkland APRN.CNP - 02/09/2024 1:33 PM EST He absolutely needs to go to the ED [facility]12-04-2024 Telephone encounter Note* Telephone Encounter - Zulema De Leon RN - 02/09/2024 12:48 PM EST Call placed to patient but unable to reach. Secure voicemail left instructing patient if situation is life threatning best to go to Emergency Room for evaluation. RENEE 12/08/23: Plan: - I personally interpreted and reviewed audiogram which showed essentially normal hearing with typeA tympanometry bilaterally. On exam external auditory canal's are patent and tympanic membrane's are clear and intact. - CT of the temporal bones to rule out any inner ear abnormality. - Consult placed to dentistry - Consult placed to physical therapy - Consult to [facility] - Follow-up with me as needed [facility] Work Phone: [phone] NotePt needs a referral from provider for OS and wants it ALINE Please call pt back at [phone] to discuss and let pt know at [facility] is out to July 2024 or can make external referral message sent to hi at [facility] [id number] Telephone encounter Note* Telephone Encounter - Shelly Cooney - 02/08/2024 1:20 PM EST Pt needs a referral from provider for OS and wants it ALINE Please call pt back at [phone] to discuss and let pt know at [facility] is out to July 2024 or can make external referral message sent to hi at [facility] [id number] Miscellaneous Notes* Telephone Encounter - Shelly Cooney - 02/08/2024 1:20 PM EST Pt needs a referral from provider for OS and wants it ALINE Please call pt back at [phone] to discuss and let pt know at [facility] is out to July 2024 or can make external referral message sent to hi at [facility] documented in this [id number] Miscellaneous Notes* Telephone Encounter - Criss Baca - 02/08/2024 11:56 AM EST Patient called and stated Dr. Wilson had referred him to maxofacial surgery. He is needed the referral to be sent to [facility] . [email or web address]. * Telephone Encounter - Azeb Chan RN - 02/08/2024 11:56 AM EST Patient was never written a referral to Maxofacial surgery * Telephone Encounter - Criss Baca - 02/08/2024 11:56 AM EST He stated it was in a [employer] message from Dr. Wilson. I was unable to locate this * Telephone Encounter - Azeb Chan RN - 02/08/2024 11:56 AM EST There is no referral for Maxofacial surgery * Telephone Encounter - Criss Baca - 02/08/2024 11:56 AM EST Spoke with patient and informed he will need to follow up with his dentist for the referral. documented in [facility] encounterWilson [facility] Telephone encounter Note* Telephone Encounter - Criss Baca - 02/08/2024 11:56 AM EST Patient called and stated Dr. Wilson had referred him to maxofacial surgery. He is needed the referral to be sent to [facility] . [email or web address]. [facility]12-03-2024 Telephone encounter Note* Telephone Encounter - Azeb Chan RN - 02/08/2024 11:56 AM EST Patient was never written a referral to Maxofacial surgery [facility]12-03-2024 Telephone encounter Note* Telephone Encounter - Criss Baca - 02/08/2024 11:56 AM EST He stated it was in a [employer] message from Dr. Wilson. I was unable to locate this [facility] [id number] Telephone encounter Note* Telephone Encounter - Azeb Chan RN - 02/08/2024 11:56 AM EST There is no referral for [facility]ofacial surgery [facility] [id number] Telephone encounter Note* Telephone Encounter - Criss Baca - 02/08/2024 11:56 AM EST Spoke with patient and informed he will need to follow up with his dentist for the referral. [facility] [id number] NoteHNO ID: [id number] Author: TIEN HEREDIA PT Service: ? Author Type: Physical Therapist Type: Progress Notes Filed: 01/30/2024 18:45 Note Text: Episode Visit Count: 1 Therapist That Will Accept/Oversee The Plan Of Care: Tien Heredia Start of Care Date: 01/28/24 Onset Date: 04/22/23 Plan of Care Certification Date: 01/28/24 Next Certification Due Date: 04/09/23 Patient Identified by Name and Date of : Yes REHABILITATION AND SPORTS THERAPY PHYSICAL THERAPY EVALUATION PLAN OF CARE: Assessment: Raheem Crowley Cohn presents with chief complaint of fascial pain that interferes with (talking, eating, moving head, opening mouth) . The patient presents with impairments in ADL's, flexibility, joint mobility, range of motion, strength, symptom management, and tissue tenderness. PROMIS? (Patient-Reported Outcomes Measurement Information System) scores were reviewed and identified as a rehabilitation concern. Prognosis for therapy is Fair due to: clinical presentation . The patient will benefit from skilled therapy services to meet the goals established for this plan of care as noted below. Based on the patient's history, the components of the examination, the patient presentation, and required decision-making as described in this evaluation, this patient's evaluation falls into the moderate category of complexity as described by AMA CPT codes. Patient can benefit from skilled care to address patient's impairments and improve their function. Goals for Episode of Care: established 01/28/24 [place] in home exercise program. Patient will decrease pain to 3/10 with functional activities to allow patient to improve activities of daily living . Patient will demonstrate increase in cervical strength to good during manual muscle testing in order to improve function for prior functional tasks. Patient will increase flexibility of bilateral upper trapezius, levator scapula and left sternocleidomastoid and scalene muscles to WNL to decrease pain. Patient to report symptom free with talking and chewing. Patient Goals: eliminate fascial pain Time Frame for Goals and Treatment : 04/09/24 Planned Interventions, Frequency, and Duration: Current Frequency: 1x every other week Duration: 10 weeks Total Number of Visits Planned: 5 Planned Treatment Interventions: Therapeutic exercise (11347), Neuromuscular re-education (56842), Therapeutic activities (41431), Manual therapy (58884), Self-fdc management (29484), Aquatic PT (51887), Patient/Family/Caregiver Education, Body Mechanics Training, Functional training PLAN FOR NEXT VISIT: progression of manual therapy, assess sessativity to trigeminal nerve Patient demonstrates good understanding of plan of care and treatment. The above goals and plan of care were discussed and agreed upon by patient/family. SUBJECTIVE: Patient presents to therapy today for TMJ dysfunction, head aches and fascial pain. Patient reports in April of 2023 he had a dental infection that caused haluinations. He reports having 9 teeth pulled in one sitting. He currently has no teeth and can not tolerate wearing his dentures due to pain. Feels his head and face are being held up and pulled by wires. Feels his hard pallet moves too much when he talks and eats. Describes near constat dry mouth and difficulty swallowing. Reports swollowing tests with Speach therapy are negative. Reports broken nose (maybe cheekbone) in early . Has been on many rounds of antibiotics since . 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 Infection Clinical Reasoning: No identified risk factors. Cervical Myelopathy: Age > 45 yo Cervical Myelopathy Diagnostic Rule: Proceed with caution Red Flags - Cervical Cancer Clinical Reasoning: No identified risk factors. Infection Clinical Reasoning: No identified risk factors. Cervical Myelopathy: Age > 45 yo Cervical Myelopathy Diagnostic Rule: Proceed with caution Vestibular Headache: Yes Description: sharp, stabbing Rating of current symptoms: 8/10 Location: frontal region, face, cervical region, eyes and temporomandibular region (hard pallet) Frequency: Constant and increases with activity Duration: all the time Neck Symptoms: Yes Description: sharp, pressure Rating of current symptoms: 7/10 Location: left neck, anterior neck, right neck Frequency: Daily (more content not included)...[facility]11-22-2024 History of Present illness Narrative* Tien Heredia, PT - 01/28/2024 2:23 PM EST Images from the original note were not included. Episode Visit Count: 1 Therapist That Will Accept/Oversee The Plan Of Care: Tien Heredia Start of Care Date: 01/28/24 Onset Date: 04/22/23 Plan of Care Certification Date: 01/28/24 Next Certification Due Date: 04/09/23 Patient Identified by Name and Date of : Yes REHABILITATION AND SPORTS THERAPY PHYSICAL THERAPY EVALUATION PLAN OF CARE: Assessment: Raheem Cohn presents with chief complaint of fascial pain that interferes with (talking, eating, moving head, opening mouth) . The patient presents with impairments in ADL's, flexibility, joint mobility, range of motion, strength, symptom management, and tissue tenderness. PROMIS (Patient- Reported Outcomes Measurement Information System) scores were reviewed and identified as a rehabilitation concern. Prognosis for therapy is Fair due to: clinical presentation . The patient will benefit from skilled therapy services to meet the goals established for this plan of care as noted below. Based on the patient's history, the components of the examination, the patient presentation, andrequired decision-making as described in this evaluation, this patient's evaluation falls into the moderate category of complexity as described by AMA CPT codes. Patient can benefit from skilled careto address patient's impairments and improve their function. Goals for Episode of Care: established 01/28/24 [place]ixby in home exercise program. Patient will decrease pain to 3/10 with functional activities to allow patient to improve activities of daily living . Patient will demonstrate increase in cervical strength to good during manual muscle testing in order to improve function for prior functional tasks. Patient will increase flexibility of bilateral upper trapezius, levator scapula and left sternocleidomastoid and scalene muscles to WNL to decrease pain. Patient to report symptom free with talking and chewing. Patient Goals: eliminate fascial pain Time Frame for Goals and Treatment : 04/09/24 Planned Interventions, Frequency, and Duration: Current Frequency: 1x every other week Duration: 10 weeks Total Number of Visits Planned: 5 Planned Treatment Interventions: Therapeutic exercise (38411), Neuromuscular re- education (12991), Therapeutic activities (43326), Manual therapy (12390), Self- fdc management (63623), Aquatic PT (27324), Patient/Family/Caregiver Education, Body Mechanics Training, Functional training PLAN FOR NEXT VISIT: progression of manual therapy, assess sessativity to trigeminal nerve Patient demonstrates good understanding of plan of care and treatment. The above goals and plan of care were discussed and agreed upon by patient/family. SUBJECTIVE: Patient presents to therapy today for TMJ dysfunction, head aches and fascial pain. Patient reportsin April of 2023 he had a dental infection that caused haluinations. He reports having 9 teeth pulled in one sitting. He currently has no teeth and can not tolerate wearing his dentures due to pain. Feels his head and face are being held up and pulled by wires. Feels his hard pallet moves too much when he talks and eats. Describes near constat dry mouth and difficulty swallowing. Reports swollowing tests with Speach therapy are negative. Reports broken nose (maybe cheekbone) in early .Has been on many rounds of antibiotics since . 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 Infection Clinical Reasoning: No identified risk factors. Cervical Myelopathy: Age > 45 yo Cervical Myelopathy Diagnostic Rule: Proceed with caution Red Flags - Cervical Cancer Clinical Reasoning: No identified risk factors. Infection Clinical Reasoning: No identified risk factors. Cervical Myelopathy: Age > 45 yo Cervical Myelopathy Diagnostic Rule: Proceed with caution Vestibular Headache: Yes Description: sharp, stabbing Rating of current symptoms: 10/15 Location: frontal region, face, cervical region, eyes and temporomandibular region (hard pallet) Frequency: Constant and increases with activity Duration: all the time Neck Symptoms: Yes Description: sharp, pressure Rating of current symptoms: 09/14 Location: left neck, anterior neck, right neck Frequency: Daily Duration: all the time Jaw Symptoms: Yes Description: stabbing, shooting (buring, pulling) Rating of current symptoms: 10/15 Location: bilateral Frequency: Constant and increases with activity Duration: all the time Symptoms worsened by: eating, talking Ear Symptoms: No Hearing Changes: No recent changes Tinnitus: No recent changes Pain: Pain Pain Level: 9 Pain Location: Jaw, Head - Left, Head - Right (face (left more than right), neck anterior and anterior latera) Description: Sharp, Burning, Pulsating (pulling like wires,) Frequency: Continuous PROMIS Scales 01/28/2024 Higher is Better Phys Func - Score 24 (severe dysfunction) Phys Func - Percentile 0 Self-Eff Symptom - Score 30 (Low) Self-Eff Symptom - Percentile 2 T-scores: mean of general population = 50. 5 points is clinically meaningfully difference Percentiles provide an indication of how the patient's score ranks in relation to the general population. Higher percentile rankings indicate better function/quality of life. 50th percentile is the average of the general population and indicates half of respondents had a worse score. OBJECTIVE MEASURES WITH LEVEL OF FUNCTION: Posture / Alignment UE Observations: neutral head and neck posture Cervical Spine ROM Cervical ROM : Limitation AROM Cervical Flexion AROM: Normal Cervical Extension AROM: Moderate limitation Cervical Side-Bend Right AROM: Minimal limitation Cervical Side-Bend Left AROM: Minimal limitation Cervical Rotation Right AROM: Minimal limitation Cervical Rotation Left AROM: Major limitation TMJ Observations Bite guard: No Trismus: No Right TMJ Palpation Tenderness: Superficial masseter, Lateral pterygoid, Intraoral deep masseter Left TMJ Palpation Tenderness: Intraoral deep masseter, Superficial masseter, Lateral pterygoid Myofascial Restriction: sternocleidomastoid, scalenes, zygomaticus, levator scapula Myofascial Restricton comments: left worse than right TMJ AROM Mandibular Opening: WNL, Increased Symptoms Mandibular Lateral Excursion Right: WNL, Increased Symptoms Mandibular Lateral Excursion Left: WNL, Increased Symptoms Deviation with range of motion: No UE Flexibility Flexibility: Upper Trapezius, Levator Scapulae R Upper Trapezius Flexibilty Comments: tight L Upper Trapezius Flexibility Comments: tight R Levator Scapulae Flexibilty Comments: tight L Levator Scapulae Flexibility Comments: tight Spine Joint Mobility Joint Mobility - C1: Hypomobile Education: Education Learning Preferences: Demonstration, Explanation, Performance, Printed Materials Barriers: None Learning/educational needs: Home exercise program, Plan of Care Education Provided: Yes, see treatment interventions for education provided Education Provided To: Patient Education Mode/Type: Demonstration, Explanation/Discussion, Literature/Printed Materials, Performance Response to Education/Teach Back: Requires Review/Additional Education TREATMENT: PT Treatment Interventions: Manual Therapy, Therapeutic Exercise Evaluation Therapeutic Exercise: 1: chin tuck 20 x 3 2: isometric axial elongation of cervical spine Skilled Intervention: Patient was educated in proper exercise technique and purpose for exercises. Skilled judgment was used in selection of appropriate interventions. Correct performance of therapeutic exercises was facilitated with verbal, visual, and tactile cuing. Manual Therapy: 1: soft tissue mobilization subocciptial muscles 2: joint mobilization left mastoid process posterior glide grade 2, 3 3: joint mobilization left zygomatic arch lateral mobilization 4: joint mobilization left nasal bone medial glide 5: soft tissue mobilizaiton left SCM muscle 6: all mobilization with mobilization with movement chin nod and lower trunk rotation 7: joint mobilizaiton left to right syphoid in side lying Skilled Intervention: Manual skills to improve joint mobility, ROM, and decrease pain. Utilized anatomy knowledge of the therapist, and assessment of patient's response to intervention. Billing * Evaluation Moderate Complexity: 1 Unit Therapeutic Exercise Treatment Minutes: 5 Manual TherapyTreatment Minutes: 20 Skilled Treatment Time Minutes (timed and untimed codes): 43 Total Session Time (minutes): 43 Session Start Time : 1427 Session Stop Time : 1510 Tien Heredia PT documented [facility]-20-2024 NoteHNO ID: [id number] Author: MACKENZIE STATON MD Service: ? Author Type: Physician Type: Progress Notes Filed: 01/26/2024 12:39 Note Text: This patient is presenting today with complaints of inability to swallow, having not enough salivary secretions in his oral cavity, left-sided facial pain and discomfort as well as feeling that the skin of his face is falling off. He attributes these symptoms and complaints to previous facial trauma according to his report. I did explain to the patient that these symptoms and complaints are not something I treat or take care of or manage. Patient was advised to follow with oral surgeon or ENT surgeon for evaluation and treatment. Mackenzie STATON MD [facility] History of Present illness Narrative* Mackenzie Staton MD - 01/26/2024 11:41 AM EST This patient is presenting today with complaints of inability to swallow, having not enough salivary secretions in his oral cavity, left-sided facial pain and discomfort as well as feeling that the skin of his face is falling off. He attributes these symptoms and complaints to previous facial trauma according to his report. I did explain to the patient that these symptoms and complaints are not something I treat or take care of or manage. Patient was advised to follow with oral surgeon or ENT surgeon for evaluation and treatment. Mackenzie STATON MD Plastic Surgery January 26, 2024 documented in this encounterReg[facility] Center11-20-2024 Miscellaneous Notes* Telephone Encounter - YUNIER Mata - 01/26/2024 9:40 AM EST [facility] p[facility] Telephone encounter Note* Telephone Encounter - YUNIER Mata - 01/26/2024 9:40 AM EST Referral for [facility] oral surgery pended [facility]11-14-2024 History of Present illness Narrative* Carrington Fritz MD - 01/20/2024 11:30 AM EST Subjective Patient ID: Raheem Cohn Jr. is a 48 y.o. male. He continues having issues with his face and his mouth. Prior history is well documented. This started after dental issues developed several years ago. He had all of his teeth pulled and was wearing dentures. The right side of his face/jaw cracked and he has continued having symptoms since then. Hehas trouble swallowing and hears cracking in his ears when he does. He feels pain across the roof of his mouth. He had new dentures made over the summer and they apparently do not fit correctly and fall out without adhesive. He is concerned that his face is changing and his jaw is shrinking. It does not move normally. He has had ENT evaluation and repeated imaging. He has been recommended to see physical therapy for the TMJ component of this but that does not seem to explain all of his symptoms. He continues to have dry mouth. He is off of Seroquel because of that concern. He has not had relapse with drugs. He is unable to work because of his symptoms. The following portions of the patient's history were reviewed and updated as appropriate: allergies, current medications, past medical history, past social history, past surgical history, and problemlist. Review of Systems Objective Physical Exam Constitutional: Comments: He interacts appropriately. He shows me photos of himself previously and he definitely has facial appearance changes that seem related to his edentulous condition. HENT: Mouth/Throat: Comments: His mouth does not appear particularly dry. No exudate. I see no oral lesions. Lymphadenopathy: Cervical: No cervical adenopathy. Assessment/Plan His symptoms seem in large part related to his edentulous state. Previous evaluation and treatment reviewed. I do think he should participate in the physical therapy for TMJ that was recommended to him. Opinion from oromaxillofacial surgery in the tertiary setting is appropriate as I believe a lot of his symptoms might be improved, if not corrected, by getting his dental issue adequately addressed. The cracking in his ears and in the back of his head are not particularly concerning from a diagnostic standpoint but do concern him. He is not manifesting at this time and acute thought disorder. Diagnoses and all orders for this visit: Edentulous orofacial dystonia documented in this encounterProMedica Flower HospitalTrustribe [id number] History of Present illness Narrative* Rossana Harding APRN.[facility] - 01/18/2024 9:00 AM EST Headache Center - Follow up Virtual Visit Patient's headache clinic evaluation was scheduled as a virtual visit using the following platform Zoom Raheem Cohn was identified by name and and consented to the video evaluation and its limitations. Based on this evaluation it may be necessary for them to schedule a follow up evaluation with meor other neurologists for formal physical examination and if necessary, other studies. I have communicated my name and active licensure. The patient's identity and physical location wereverified at the time of this visit. Either the patient or their legal key account representative has been informed of the risks and benefits of -- and alternatives to -- treatment through a remote evaluation andconsents to proceed with the evaluation remotely. Accompanied by: Self Primary Problem List: ACTIVE PROBLEM LIST Anxiety State, Unspecified Insomnia, Unspecified Amphetamine and Other Psychostimulant Dependence, Episodic (Hcc) Hepatitis C Lumbar Disc Herniation Lumbago Spondylolisthesis, Grade 1 Ddd (Degenerative Disc Disease), Lumbar Polysubstance Dependence Including Opioid Type Drug, Episodic Abuse (Hcc) Weight Loss Fatigue Chief Complaint: dry mouth LV: 12/10/23 Dr. Garcia Impression and Plan from last visit: Pt reporting RIGHT facial pain with atypical characteristics. MRI-BRAIN to r/o trigeminal nerve pathology. May need follow-up MRI-TMJ. We will defer medication treatment until diagnostic imaging completed. Interval Headache History: Raheem Cohn is a 48 year old year old male, with a history of chronic facial pain,TMJ following uptoday virtually for facial pain. Since the last visit, the patient states that his facial pain has not improved. Main complaint is dry mouth, inability to swallow. Started 2 years ago after dental infection, had to have all teeth removed. Was stretching Jaw and felt a pop, has nt been the same since. ED visit yesterday for dry mouth, jaw pain, has had 10 ED visits for this issue since August. Taking nortriptyline 25 mg TID through metro Using Robaxin PRN MRI-BRAIN 01/06/24 to r/o trigeminal nerve pathology - IMPRESSION: No acute brain findings. General volume and morphology of the brain is within expected limits for age. No mass effect or abnormal intracranial enhancement and no abnormal cranial nerve enhancement. 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 Motor And Chassis Inspector: PSCB Transcribe Date/Time: Jan 06 2024 4:04P Dictated by : ESAU MCKINLEY MD This examination was interpreted and the report reviewed and electronically signed by: ESAU MCKINLEY MD on Jan 06 2024 4:11PM EST Patient has been followed by ENT and Neurology for unusual dysphagia and TMJ joint pain Telephone encounter 01/11/24: Patient states that when he tries to [...] scheduling a follow up appointment with an WATERSIDE WORKER or PA to discuss. Patient verbalized understanding. Telephone encounter 01/15/24: Patient calling regarding he is having worsening facial pain and feels like he is swallowing his mucus membranes? Mouth is really dry. He is unable to get to his scheduled appointment in neurology [facility]. Conferenced to [facility] core blower operator, Beatriz, to speak with provider call center operations manager for Dr. Eyal Garcia in neurology. Trigeminal Neuralgia HPI Onset: - Pt reports that approximately 5 months ago--he had jaw surgery, and during recovery openedmouth very wide and her a pop/felt a pop. He reports right jaw and facial pain since that time. ++ ear canal pain, ++ roof of mouth pain. Feels the entire area is tight, and drawn like a rubber band.Reports radiation to entire head at times, although pain more located on RIGHT. Side: right Distribution: V2 and V3 Any pain on the side or back of head: Yes Character: sharp/shooting Duration: constantly present. Pain-free between episodes: No Triggers: swallowing and talking - Swallowing causes ear to pop as well. Sensory abnormalities: Yes - pt reports that his entire head can become numb at times--both left and right side. Atypical. Initial benefit from Tegretol/Trileptal: He has not tried. History of MS: No History of Lyme disease: No History of shingles facial rash: No History of dental/oral surgery: Yes History of facial/plastic surgery: No Type of Trigeminal Neuralgia: pending workup PAST MEDICAL HISTORY Diagnosis Date Amphetamine and other psychostimulant dependence, episodic (HCC) 06/03/2007 clean 09/11, again clean since 01/2013 Anxiety state, unspecified Carpal tunnel syndrome, bilateral Chronic back pain Heart murmur child Hepatitis C Insomnia, unspecified IVDU (intravenous drug user) in past, last in 2009 Verruca vulgaris right hand PAST SURGICAL HISTORY Procedure Laterality Date ANES DX/THER NERVE BLOCK/INJECTION PRONE POS 2012 CRYOSURGERY right hand wart PAST SURGICAL HISTORY OF 1992 right hand fracture ALLERGIES Allergen Reactions Penicillins Anaphylaxis Current Medications: chlorproMAZINE (THORAZINE) 50 mg tablet Take 2 tablets by mouth one time only for 1 dose. Take 1 hour prior to MRI. terbinafine HCl (LAMISIL) 250 mg tablet Take 250 mg by mouth once daily. QUEtiapine (SEROQUEL) 100 mg tablet Take 200 mg by mouth daily at bedtime. nortriptyline (PAMELOR) 25 mg capsule Take 1 capsule by mouth two times a day. omeprazole (PRILOSEC) 40 mg capsule Take 40 mg by mouth once daily. I have reviewed the Kevin Status Assessment responses and discussed these with the patient: yes Rossana Harding APRN.[facility] HEADACHE SCORES: 12/08/2023 Headache Questions Face pain on one side only: Yes Do you have Trigeminal neuralgia: No Face pain described as: Other Do you have numbness with severe pain: Yes Pain triggered by brushing your teeth, eating, shaving or touching your face: No Days per month with mild/moderate face pain: 30 Days per month with severe face pain: 30 PRN medication usage in the last month: 30 12/08/2023 01/12/2024 01/17/2024 PAULA - 2/7 SCORES PAULA-2 Score 6 6 6 PAULA-7 Score 21 19 19 12/08/2023 01/12/2024 01/17/2024 Pain Disability Index PDI Score 61 62 62 12/08/2023 01/12/2024 01/17/2024 PHQ-9 Score 15 25 25 Studies to Review: No MRI Head/Brain - Last 2 Impressions MRI BRAIN WO/W IVCON Exam End: 01/06/2024 3:30 PM (Final result) Impression: IMPRESSION: No acute brain findings. General volume and morphology of the brain is within expected limits for age. No mass effect or abnormal intracranial enhancement and no abnormal cranial nerve enhancement.... MRA Head and/or Neck - Last 2 Impressions No resulted procedures found. MRI Cervical Spine - Last 2 Impressions No resulted procedures found. MRI Lumbar Spine - Last 2 Impressions No resulted procedures found. MRI Thoracic Spine - Last 2 Impressions No resulted procedures found. MRI Spine - Last 2 Impressions No resulted procedures found. CT Head/Brain - Last [address] BRAIN WO IVCON Exam End: 12/17/2023 3:38 PM (Final result) CT BRAIN WO IVCON Exam End: 04/22/2022 8:28 PM (Final result) Impression: No acute intracranial abnormalities. Report Dictated on Electronically Signed By: Heber Marroquin Electronically Signed Date/Time: 04/22/2022 8:31 PM EST CTA Head and/or Neck - Last 2 No resulted procedures found. Labs to Review: No New Health Issues: No New Family History: No Review of Systems: Review of system: unchanged from the previous visit (sleep patterns, mood, energy, appetite, stress, exercising). Physical Examination: Vital Signs: There were no vitals taken for this visit. General: well appearing, in no acute distress, alert Pain Behaviors: no pain behaviors observed Neurological: Mental Status: Alert and oriented to person, place and time. Affect is normal and appropriate. Speech is spontaneous and fluent without dysarthria and normal in rate, volume and articulation. Short and terminologist memory, cognition and general fund of knowledge are good. Attention span and concentration are good. HEENT: Head is normocephalic and features were symmetric. Musculoskeletal: Patient able to sit up right in chair for entirety of visit. Cranial Nerves: III, IV, -EOMI: full. VII-face is symmetric without evidence of weakness. VIII-hearing intact. IMPRESSION: Atypical facial pain (primary encounter diagnosis) Amphetamine and other psychostimulant dependence, episodic (hcc) Polysubstance dependence including opioid type drug, episodic abuse (hcc) Tmj click Raheem Cohn is a 48 year old year old male, with a history of chronic facial pain who presents with TMJ. His neurological examination is essentially normal at this visit. Discussed with patient thatPT for TMJ likely to be beneficial for many of his symptoms, no need for additional neuro-imaging at this time. I have asked him to follow-up with ENT and dentistry for further work-up of his dry mouth/swallowing and dental issues, as his facial pain is well controlled/tolerable at this time. Can follow up with headache department as needed. Patient verbalized understanding and agreed to treatment plan. PLAN: -PT for TMJ as ordered -Follow up PRN HEADACHE MANAGEMENT: (You are the primary guardian of your health and headache. Keep track of all medications: This includes the reason for use, side effects and benefits.) MEDICATION TREATMENT: Medications to Start Taking None Instructed patient about medications. Discussed testing. Headache education was done. Discussed lifestyle modification including increased oral hydration, decreased caffeine, exercise and stress management. Discussed treatment options including preventive and acute medications, natural supplements, and infusion therapy. Discussed medication overuse headache and to limit use of acute treatments to no more than 2 days/week or 10 days/month. Discussed medication side effects, adverse reactions and drug interactions. Written educational materials and patient instructions outlining all of the above were given. RESEARCH: None at this time Follow-up: PRN Level of Service: Virtual Visit 30 minutes Rossana Harding APRN.CNP Headache Section [facility] January 18, 2024 documented in this encounterRegional Medical Center11-12-2024 NoteHNO ID: [id number] Author: ROSSANA HARDING APRN.CNP Service: ? Author Type: Nurse Practitioner Type: Progress Notes Filed: 01/18/2024 09:23 Note Text: Headache Center - Follow up Virtual Visit Patient's headache clinic evaluation was scheduled as a virtual visit using the following platform Zoom Raheem Cohn was identified by name and and consented to the video evaluation and its limitations. Based on this evaluation it may be necessary for them to schedule a follow up evaluation with me or other neurologists for formal physical examination and if necessary, other studies. I have communicated my name and active licensure. The patient's identity and physical location were verified at the time of this visit. Either the patient or their legal key account representative has been informed of the risks and benefits of -- and alternatives to -- treatment through a remote evaluation and consents to proceed with the evaluation remotely. Accompanied by: Self Primary Problem List: ACTIVE PROBLEM LIST Anxiety State, Unspecified Insomnia, Unspecified Amphetamine and Other Psychostimulant Dependence, Episodic (Hcc) Hepatitis C Lumbar Disc Herniation Lumbago Spondylolisthesis, Grade 1 Ddd (Degenerative Disc Disease), Lumbar Polysubstance Dependence Including Opioid Type Drug, Episodic Abuse (Hcc) Weight Loss Fatigue Chief Complaint: dry mouth LV: 12/10/23 Dr. Garcia Impression and Plan from last visit: Pt reporting RIGHT facial pain with atypical characteristics. MRI-BRAIN to r/o trigeminal nerve pathology. May need follow-up MRI-TMJ. We will defer medication treatment until diagnostic imaging completed. Interval Headache History: Raheem Cohn is a 48 year old year old male, with a history of chronic facial pain,TMJ following up today virtually for facial pain. Since the last visit, the patient states that his facial pain has not improved. Main complaint is dry mouth, inability to swallow. Started 2 years ago after dental infection, had to have all teeth removed. Was stretching Jaw and felt a pop, has nt been the same since. ED visit yesterday for dry mouth, jaw pain, has had 10 ED visits for this issue since August. Taking nortriptyline 25 mg TID through metro Using Robaxin PRN MRI-BRAIN 01/06/24 to r/o trigeminal nerve pathology - IMPRESSION: No acute brain findings. General volume and morphology of the brain is within expected limits for age. No mass effect or abnormal intracranial enhancement and no abnormal cranial nerve enhancement. 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 Motor And Chassis Inspector: JEFFREY Transcribe Date/Time: Jan 06 2024 4:04P Dictated by : ESAU MCKINLEY MD This examination was interpreted and the report reviewed and electronically signed by: ESAU MCKINLEY MD on Jan 06 2024 4:11PM EST Patient has been followed by ENT and Neurology for unusual dysphagia and TMJ joint pain Telephone encounter 01/11/24: Patient states that when he tries to [...] scheduling a follow up appointment with an WATERSIDE WORKER or PA to discuss. Patient verbalized understanding. Telephone encounter 01/15/24: Patient calling regarding he is having worsening facial pain and feels like he is swallowing his mucus membranes? Mouth is really dry. He is unable to get to his scheduled appointment in neurology on Wednesday. Conferenced to [facility] core blower operator, Beatriz, to speak with provider call center operations manager for Dr. Eyal Garcia in neurology. Trigeminal Neuralgia HPI Onset: - Pt reports that approximately 5 months ago--he had jaw surgery, and during recovery opened mouth very wide and her a pop/felt a pop. He reports right jaw and facial pain since that time. ++ ear canal pain, ++ roof of mouth pain. Feels the entire area is tight, and drawn like a rubber band. Reports radiation to entire head at times, although pain more located on RIGHT. Side: right Distribution: V2 and V3 Any pain on the side or back of head: Yes Character: sharp/shooting Duration: constantly present. Pain-free between episodes: No Triggers: swallowing and talking - Swallowing causes ear to pop as well. Sensory abnormalities: Yes - pt reports that his entire head can become numb at times--both left and right side. Atypical. Initial benefit from Tegretol/Trileptal: He has not tried. History of MS: No History of Lyme disease: No History of shingles facial rash: No History of dental/oral surgery: Yes History of facial/plastic surgery: No Type of Trigeminal Neuralgia: pending workup PAST MEDICAL HISTORY Diagnosis (more content not included)...[facility]11-12-2024 Telephone encounter Note* Telephone Encounter - Idalia Naranjo LPN - 01/18/2024 8:50 AM EST Appt today 01/18/24 with Rossana Harding APRN.[facility]11-12-2024 Miscellaneous Notes* Telephone Encounter - Idalia Naranjo LPN - 01/18/2024 8:50 AM EST Appt today 01/18/24 with Rossana Harding [facility]N.[facility] documented in this encounterRegional Medical Center11-12-2024 Miscellaneous Notes* Telephone Encounter - Tesha Murphy - 01/18/2024 8:40 AM EST Patient stopped in the office and said he is just not doing well. He thinks the roof of his mouth now. He just needs to know what to do next? Please advise * Telephone Encounter - Carrington Fritz MD - 01/18/2024 8:40 AM EST I can't recall. Has he done any PT for this, and if he has, when was that? And maybe I need to check him again to design the plan for further evaluation and treatment. * Telephone Encounter - Tesha Murphy - 01/18/2024 8:40 AM EST He can't do PT because he can't open his mouth and he's dehydrated. I have set him up an appt on 01-20-24 [facility] encounter[facility] Telephone encounter Note* Telephone Encounter - Tesha Murphy - 01/18/2024 8:40 AM EST Patient stopped in the office and said he is just not doing well. He thinks the roof of his mouth now. He just needs to know what to do next? Please advise [facility]11-12-20[facility] Telephone encounter Note* Telephone Encounter - Carrington Fritz MD - 01/18/2024 8:40 AM EST I can't recall. Has he done any PT for this, and if he has, when was that? And maybe I need to check him again to design the plan for further evaluation and treatment. [facility]11-12-[facility] Telephone encounter Note* Telephone Encounter - Tesha Murphy - 01/18/2024 8:40 AM EST He can't do PT because he can't open his mouth and he's dehydrated. I have set him up an appt on 01-20-24 [facility]11-09-2024 Telephone encounter Note* Telephone Encounter - Kory Alvarenga RN - 01/15/2024 3:26 PM EST Patient calling regarding he is having worsening facial pain and feels like he is swallowing his mucus membranes? Mouth is really dry. He is unable to get to his scheduled appointment in neurology onWednesday. Conferenced to [facility] core blower operator, Beatriz, to speak with provider call center operations manager for Dr. Eyal Garcia in neurology. GO TO THE EMERGENCY ROOM OR CALL 911 IF: * You develop any new symptoms * Your condition worsens * You are concerned or anxious about your condition for any other reason. If you have any questions, you can call Nurse semiconductor wafers etch operator back. Patient states he feels this can wait until Wednesday. [facility] Miscellaneous Notes* Telephone Encounter - Kory Alvarenga RN - 01/15/2024 3:26 PM EST Patient calling regarding he is having worsening facial pain and feels like he is swallowing his mucus membranes? Mouth is really dry. He is unable to get to his scheduled appointment in neurology onWednesday. Conferenced to [facility] core blower operator, Beatriz, to speak with provider call center operations manager for Dr. Eyal Garcia in neurology. GO TO THE EMERGENCY ROOM OR CALL 911 IF: * You develop any new symptoms * Your condition worsens * You are concerned or anxious about your condition for any other reason. If you have any questions, you can call Nurse semiconductor wafers etch operator back. Patient states he feels this can wait until Wednesday. documented in this encounterRegional Medical Center10-31-2024 NoteHNO ID: [id number] Author: LAURENCE COX RT(Buck) Service: ? Author Type: Technologist Type: Progress Notes Filed: 01/06/2024 15:13 Note Text: Radiology Service Progress Note DATE OF SERVICE: January 06, 2024 TIME: 3:12 PM PATIENT IDENTITY VERIFICATION COMPLETED USING TWO (2) STANDARD IDENTIFIERS: Name and Date of confirmed by patient verbally. FALL SCREENING: Has the patient had 2 falls in the last year or 1 fall with injury or currently using an Ambulatory Assistive Device (Walker, Cane, Wheelchair, Crutches, etc.)? No PATIENT GENDER DATA: Male PATIENT RELEVANT IMPLANT DATA REVIEWED: Yes PATIENT PRESENTS WITH AN IMPLANTABLE OR ATTACHED CLOTH WASHER: No ALLERGIES: Reviewed and unchanged CONTRAST ALLERGY: NO. EXAM: MRI - CONTRAST TYPE: GROUP II PERIPHERAL IV DATA: Ambulatory: A peripheral IV was started in the Left antecubital site with a Angio cath: 24 gauge. RADIOLOGY DEPARTMENT: MR; Exam(s) Completed: Head: Cranial Nerve, Upper SIGNATURE: RT René(R) PATIENT NAME: Raheem Cohn DATE: January 06, 2024 TIME: 3:12 [facility]10-31-2024 History of Present illness Narrative* Laurence Cox RT(Buck) - 01/06/2024 3:12 PM EDT Radiology Service Progress Note DATE OF SERVICE: January 06, 2024 TIME: 3:12 PM PATIENT IDENTITY VERIFICATION COMPLETED USING TWO (2) STANDARD IDENTIFIERS: Name and Date of confirmed by patient verbally. FALL SCREENING: Has the patient had 2 falls in the last year or 1 fall with injury or currently using an Ambulatory Assistive Device (Walker, Cane, Wheelchair, Crutches, etc.)? No PATIENT GENDER DATA: Male PATIENT RELEVANT IMPLANT DATA REVIEWED: Yes PATIENT PRESENTS WITH AN IMPLANTABLE OR ATTACHED CLOTH WASHER: No ALLERGIES: Reviewed and unchanged CONTRAST ALLERGY: NO. EXAM: MRI - CONTRAST TYPE: GROUP II PERIPHERAL IV DATA: Ambulatory: A peripheral IV was started in the Left antecubital site with a Angio cath: 24 gauge. RADIOLOGY DEPARTMENT: MR; Exam(s) Completed: Head: Cranial Nerve, Upper SIGNATURE: RT René(R) PATIENT NAME: Raheem Cohn DATE: January 06, 2024 TIME: 3:12 PM documented in [facility]Reg[facility]10-30-[facility]24 Telephone encounter Note * Telephone Encounter - Treasure Hernandez RN - 01/05/2024 11:56 AM EDT See MyChart encounter from 12/31/2023. Informed patient that he should also schedule a follow up appointment to discuss symptoms in depth with provider. Informed him that he can schedule with any headache JEROME. [facility]10-[facility] Miscellaneous Notes* Telephone Encounter - Treasure Hernandez RN - 01/05/2024 11:56 AM EDT See MyChart encounter from 12/31/2023. Informed patient that he should also schedule a follow up appointment to discuss symptoms in depth with provider. Informed him that he can schedule with any headache JEROME. * Telephone Encounter - [facility] Patient Analytical Strategist Lulu Denson - 01/05/2024 11:26 AM EDT Name of Caller: Raheem Cohn Relationship to patient: patient Last visit in this department: Visit date not found Reason for Call: Other : Patient says if he looks at mri for tmj it shows cyst in jawbone and several growths. He also said its hard to swallow. Application Release Manager told him to stop taking a medication because of dehydration. Patient requests a different medication for MRI. Please call to discuss. Callback number: [phone] Fax Number (if necessary): N/A Additional info if needed (Prior Auth #, Claim #, etc ): N/A Lulu Heath Patient Analytical Strategist Ccsr documented in [facility]Reg[facility]10-30-2024 Telephone encounter Note * Telephone Encounter - Treasure Hernandez RN - 01/05/2024 11:54 AM EDT Spoke with patient (verified name and date of ) and he states that he is okay with being prescribed one dose of Ativan. Patient stated that he does have a warehouse delivery driver for his MRI appointment. Patientwould like medication sent to [facility] in [place], [place]. [facility] Miscellaneous Notes* Telephone Encounter - Treasure Hernandez RN - 01/05/2024 11:54 AM EDT Spoke with patient (verified name and date of ) and he states that he is okay with being prescribed one dose of Ativan. Patient stated that he does have a warehouse delivery driver for his MRI appointment. Patientwould like medication sent to [facility] in [place], [place]. * Telephone Encounter - Treasure Hernandez RN - 01/05/2024 10:10 AM EDT LVM for patient to call back office in regards to medication for MRI * Telephone Encounter - Idalia Naranjo LPN - 01/03/2024 8:24 AM EDT Forwarded to provider RENEE 12/10/23 NOV not scheduled documented in this encounterRegional [facility] Center10-30-2024 Telephone encounter Note * Telephone Encounter - Ivana Patient Analytical Strategist Lulu Denson - 01/05/2024 11:26 AM EDT Name of Caller: Raheem Cohn Relationship to patient: patient Last visit in this department: Visit date not found Reason for Call: Other : Patient says if he looks at mri for tmj it shows cyst in jawbone and several growths. He also said its hard to swallow. Application Release Manager told him to stop taking a medication because of dehydration. Patient requests a different medication for MRI. Please call to discuss. Callback number: [phone] Fax Number (if necessary): N/A Additional info if needed (Prior Auth #, Claim #, etc ): N/A Lulu Heath Patient Analytical Strategist Ccsr [facility] Telephone encounter Note* Telephone Encounter - Treasure Hernandez RN - 01/05/2024 10:10 AM EDT LVM for patient to call back office in regards to medication for MRI [facility]10-28-2024 Telephone encounter Note* Telephone Encounter - Idalia Naranjo LPN - 01/03/2024 8:24 AM EDT Forwarded to provider [facility] 12/10/23 NOV not scheduled [facility]10-[facility] Telephone encounter Note* Telephone Encounter - Eyal Garcia MD - 12/31/2023 5:20 PM EDT Re-sent to [place], [place] Deb. Eyal Garcia MD December 31, 2023 5:21 PM [facility] Note* Addendum Note - Eyal Garcia MD - 12/31/2023 5:20 PM EDTAddended by: EYAL GARCIA on: 12/31/2023 05:20 PM Modules accepted: Orders [facility]10-25-2024 Miscellaneous Notes* Telephone Encounter - Eyal Garcia MD - 12/31/2023 5:20 PM EDT Re-sent to [place], [place] Deb. Eyal Garcia MD December 31, 2023 5:21 PM * Addendum Note - Eyal Garcia MD - 12/31/2023 5:20 PM EDTAddended by: EYAL GARCIA on: 12/31/2023 05:20 PM Modules accepted: Orders * Telephone Encounter - Idalia Naranjo LPN - 12/31/2023 4:39 PM EDT Forwarded to provider. * Telephone Encounter - Gabe Smiley - 12/31/2023 4:37 PM EDT Patient calling in stating that the prescription was sent to the wrong pharmacy. Please send to [facility] in [place]. * Telephone Encounter - Eyal Garcia MD - 12/31/2023 4:21 PM EDT Chlorpromazine 100 mg po prior to MRI. Take 1 hour prior to procedure. Decline alprazolam. Eyal Garcia MD December 31, 2023 4:22 PM * Telephone Encounter - Rachelle Berry - 12/31/2023 12:35 PM EDT Raheem is calling Eyal Garcia MD today asking if he can be prescribed XANAX to help him get threw the MRI that he is scheduled for on 01/06/24. If this is possible please send it to [facility] in [place]. Please advise. Patient has been identified by name and birthdate. Duration of symptoms: N/A Person calling: self Call patient at: at home [phone] (home) Was an appointment scheduled: No Closing statement: Results or non-symptom based questions: [facility] you for calling [facility], your call will be returned within the next business day. Rachelle Berry documented in this encounterRegional Medical Center10-25-2024 Telephone encounter Note * Telephone Encounter - Idalia Naranjo LPN - 12/31/2023 4:39 PM EDT Forwarded to provider. [facility] Telephone encounter Note* Telephone Encounter - Gabe Smiley - 12/31/2023 4:37 PM EDT Patient calling in stating that the prescription was sent to the wrong pharmacy. Please send to [facility] in [place]. [facility] Telephone encounter Note* Telephone Encounter - Eyal Garcia MD - 12/31/2023 4:21 PM EDT Chlorpromazine 100 mg po prior to MRI. Take 1 hour prior to procedure. Decline alprazolam. Eyal Garcia MD December 31, 2023 4:22 PM [facility] Telephone encounter Note* Telephone Encounter - Rachelle Berry - 12/31/2023 12:35 PM EDT Raheem is calling Eyal Garcia MD today asking if he can be prescribed XANAX to help him get threw the MRI that he is scheduled for on 01/06/24. If this is possible please send it to [facility] in [place]. Please advise. Patient has been identified by name and birthdate. Duration of symptoms: N/A Person calling: self Call patient at: at home [phone] (home) Was an appointment scheduled: No Closing statement: Results or non-symptom based questions: Thank you for calling [facility], your call will be returned within the next business day. Rachelle Berry [facility]10-25-2024 Telephone encounter Note* Telephone Encounter - Octavio Ngo - 12/31/2023 12:08 PM EDT What is the need: Situation: CT Scan Update Background: Pt called in stating that Dr Hi requested to do a throat CT scan. Pt stated he followed up with insurance and one was done through ENT at [facility] in September. The provider's name is Kelli Mcadams. Pt said Dr Hi would need to complete a peer to peer call to ok the use of that CT scan. Recommendation: Please follow up with insurance to sort out. Pt only gave insurance phone number [phone]. If there are any questions, call Pt at Telephone Information: Thanks! Octavio Ngo Sent URGENT message in [employer] on 01/03/24 [id number] Miscellaneous Notes* Telephone Encounter - Octavio Ngo - 12/31/2023 12:08 PM EDT What is the need: Situation: CT Scan Update Background: Pt called in stating that Dr Hi requested to do a throat CT scan. Pt stated he followed up with insurance and one was done through ENT at [facility] in September. The provider's name is Kelli Mcadams. Pt said Dr Hi would need to complete a peer to peer call to ok the use of that CT scan. Recommendation: Please follow up with insurance to sort out. Pt only gave insurance phone number [phone]. If there are any questions, call Pt at Telephone Information: Thanks! Octavio Ngo Sent URGENT message in [employer] on 01/03/24 documented in this [id number] Miscellaneous Notes* Telephone Encounter - Jeff Cunningham CMA - 12/29/2023 9:21 AM EDT Patient called and stated labs have been done and seen results for labs and wants to know if any start on medications or come back to see you. * Telephone Encounter - Jeff Cunningham CMA - 12/29/2023 9:21 AM EDT Patient called asking for a update. Says mouth is very sore. * Telephone Encounter - Sp Mckeon CNA - 12/29/2023 9:21 AM EDT Patient called asking for update. documented in [facility] encounterWilson [facility]10-23-[facility]24 Telephone encounter Note* Telephone Encounter - Jeff Cunningham CMA - 12/29/2023 9:21 AM EDT Patient called and stated labs have been done and seen results for labs and wants to know if any start on medications or come back to see you. [facility]10-[facility] Telephone encounter Note* Telephone Encounter - Jeff Cunningham CMA - 12/29/2023 9:21 AM EDT Patient called asking for a update. Says mouth is very sore. [facility]10-23-2024 Telephone encounter Note* Telephone Encounter - Sp Mckeon CNA - 12/29/2023 9:21 AM EDT Patient called asking for update. [facility]10-22-2024 Miscellaneous Notes* Telephone Encounter - Tesha Murphy - 12/28/2023 1:59 PM EDT Raheem called, he saw the rheumtologist stopped his Seroquel so he would have more moisture in his mouth. He thinks he is having yeast under his tongue again, and is wondering if he can have those dissolving pills again? Please advise documented in this encounterWilson [facility] Hospital10-22-2024 Telephone encounter Note* Telephone Encounter - Tesha Murphy - 12/28/2023 1:59 PM EDT Raheem called, he saw the rheumtologist stopped his Seroquel so he would have more moisture in his mouth. He thinks he is having yeast under his tongue again, and is wondering if he can have those dissolving pills again? Please advise [employer]icon [id number] History of Present illness Narrative* Yon Chong MD - 12/27/2023 3:00 PM EDT Images from the original note were not included. [address] [facility] [address] [facility] [id number] Date of Service: 12/27/2023 Thank you for the referral to evaluate Raheem Cohn Jr. for Sicca symptoms. This is a new patient and is seen at the request of Carrington Fritz MD. Chief Complaint: Pain, dysphagia SUBJECTIVE: Raheem Cohn Jr. is a 48 y.o. male who came to rheumatology clinic for new patient evaluation of possible underlying autoimmune disease. The problem has been present for several months. Patient has been followed by ENT and Neurology for unusual dysphagia and TMJ joint pain. Patient has lost his teeth from injury in the past. He was found to have sicca symptoms and referred to Rheumatology for further evaluation Onset was gradual. The symptoms are of severe severity. They are made worse by: nothing. They are helped by nothing. Associated symptoms include: none. Previously used rheumatologic medications include none. Limitation on activities include: none. Rheumatology Family Hx: no family hx related to rheumatology noted. Previous Meds tried: Previous Procedures: Current Outpatient Medications Medication Sig Dispense Refill ALPRAZolam (XANAX) 1 mg tablet Take 1 tab 30 minutes prior to MRI. May repeat once if needed. 2 tablet 0 fluticasone propionate (FLONASE) 50 mcg/actuation nasal spray Administer 1 spray into each nostril in the morning. 16 g 0 mupirocin (BACTROBAN) 2 % ointment Apply 1 Application topically in the morning and 1 Application before bedtime. Do all this for 10 days. 22 g 0 QUEtiapine (SEROquel) 25 mg tablet Take 2 tablets (50 mg total) by mouth nightly. terbinafine (LamISIL) 250 mg tablet Take 1 tablet (250 mg total) by mouth in the morning. [id number] mg capsule Take by mouth every morning. No current facility-administered medications for this visit. reviewed. Patient Active Problem List Diagnosis TMJ (temporomandibular joint disorder) Onychomycosis of toenail reviewed. Past Surgical History: Procedure Laterality Date HAND SURGERY TOOTH EXTRACTION WRIST SURGERY reviewed. Social History Tobacco Use Smoking status: Former Types: Cigarettes Smokeless tobacco: Former Vaping Use Vaping status: Former Substance Use Topics Alcohol use: Not Currently Drug use: Not Currently Types: Methamphetamines reviewed. No past medical history on file. reviewed. Social History Social History Narrative Not on file reviewed Family History Problem Relation Age of Onset Diabetes Maternal Grandmother reviewed. Allergies Allergen Reactions Penicillins Anaphylaxis and Cough [facility]. reviewed. The following portions of the patient's history were reviewed and updated as appropriate: allergies, current medications, past family history, past medical history, past social history, past surgicalhistory and problem list. REVIEW OF SYSTEMS: CONSTITUTIONAL: Admits: [] Weight Loss [] Fever [] Frequent Night Sweats OPHTHALMOLOGIC: Admits: [] Glaucoma [] History or Current Inflammatory Eye Disease [] Cataracts ENT: Admits: [] Oral/Nasal Ulcers [] epistaxis [] Recurrent Sinusitis [] Dry Eyes [] Dry mouth CARDIOVASCULAR: Admits: [] Chest pain [] Pericarditis/Pleuritis [] Palpitations [] Edema RESPIRATORY: Admits: [] hemoptysis [] Dyspnea on Exertion [] Cough [] Wheezing GASTROINTESTINAL: Admits: [] Bloody Stool [] Diarrhea [] Vomitting GENITOURINARY: Admits: [] Blood in urine [] Genital Ulcers [] Burning/pain with urination MUSCULOSKELETAL: Admits: [] Muscle Pain [x] Joint Pain INTEGUMENTARY: Admits: [] Skin changes [] Sclerodactyly [] Raynauds [] Photosensitivity [] Alopecia NEUROLOGIC: Admits: [] Recurrent Headaches [] Limb Weakness [] Numbness/Tingling PSYCHIATRIC: Admits: [] Insomnia [] Depression [] Anxiety ENDOCRINE: Admits: [] Thyroid abnormalities HEMATOLOGY/LYMPH: Admits: [] Notable Swollen Lymph Nodes [] History of Cytopenias [] Bruising tendency [] History of DVT/PE All non checked boxes, patient denies. All other 10 point ROS reviewed and negative. PHYSICAL EXAMINATION: Constitutional: There were no vitals taken for this visit.: reviewed Comfortable, pleasant, no acute distress Eyes: Conjunctiva clear and moist, eyelids without lesions. Extraocular movements fully intact. Ears/Nose/Mouth/Throat: External inspection of ears/nose is normal - no scars, lesions, masses Dry mouth. Neck: Symmetrical, tongue midline, no masses, no lymphadenopathy, no thyromegaly Respiratory: Inspiratory and expiratory effort normal. Clear to auscultation bilaterally. No crackles or wheezes. Cardiovascular: Palpation of heart reveals normal PMI. Auscultation: regular rate rhythm, no murmurs/rubs/gallops. Carotid arteries symmetric and 2+. No edema of extremities Gastrointestinal: Soft, nontender, bowel sounds in all quadrants. No hepatosplenomegaly on palpation. Lymphatic: No lymphadenopathy in neck Neurologic: Facial muscles symmetric and of normal strength. Tongue is midline. Dermatologic: Inspection and palpation of skin and subcutaneous tissue of all four extremities without rashes Nailfold capillary exam normal Psychiatric: Normal affect. Judgement/insight intact. Musculoskeletal: Neck: Full ROM. no swelling, No tenderness, Shoulder: Bilateral full active ROM. no swelling, No tenderness, Elbows: Full ROM. no swelling, No tenderness, Wrists: Full ROM. no swelling, No tenderness, Hands: Full ROM. no swelling, No tenderness, Hips: Normal ROM. No swelling, No tenderness, Knees: Normal ROM, no swelling, No tenderness, Feet: Full ROM. no swelling, No tenderness, Ankles: Normal ROM,no swelling, No tenderness, Spine: no tenderness throughout spine, no sacroiliac joint tenderness Labs & Imaging: Labs and Imaging reviewed and discussed with the patient during the visit. No results found for: RF , C3 , C4 Lab Results Component Value Date WBC 6.8 12/17/2023 HGB 15.1 12/17/2023 HCT 43.7 12/17/2023 MCV 96 12/17/2023 PLT 157 12/17/2023 Lab Results Component Value Date CREATININE 1.08 12/17/2023 BUN 8 12/17/2023 K 3.8 12/17/2023 CL 99 12/17/2023 CO2 25 12/17/2023 Lab Results Component Value Date ALT 29 12/17/2023 AST 32 12/17/2023 ALKPHOS 54 12/17/2023 No results found for: SEDRATE Lab Results Component Value Date CRP <0.5 12/17/2023 CT sinuses without contrast Result Date: 12/17/2023 Narrative: CT SINUSES WO CONT HISTORY: Sinusitis, facial pain COMPARISON: 09/22/2023 TECHNIQUE: * Multidetector CT axial slices of the sinuses were obtained without intravenous contrast. Multiplanar reformats were created and reviewed. * All CT scans at this facility use dose modulation, iterative re construction, and/or weight based dosing when appropriate to reduce radiation dose to as low as reasonably achievable. FINDINGS: The paranasal sinuses and mastoid air cells appear well aerated. Roof of the ethmoid air cells, orbital rims, zygomatic arches, pterygoid plates and visualized portions of the mandible appear unremarkable. Bilateral temporomandibular joints articulate appropriately. Patient is edentulous. Visualized intraorbital and intracranial contents appear within normal limits. IMPRESSION: * No acute abnormality. Approved by Resident: Jeromy Louis MD on 12/17/2023 3:45 PM Amos Granados MD have personally reviewed the image(s) and agree with and/or edited the report Finalized by Amos Erickson MD on 12/17/2023 3:[address] brain without contrast Result Date: 12/17/2023 Narrative: CT BRAIN WO CONT HISTORY: Headache COMPARISON: None TECHNIQUE: * CT brain without intravenous contrast. Automated exposure control was utilized. * All CT scans at this facility use dose modulation, iterative reconstruction, and/or weight based dosing when appropriate to reduce radiation dose to as low as reasonably achievable. FINDINGS: No acute intracranial hemorrhage, territorial infarct, mass effect, or shift of midline structure. The cerebral volume, ventricles, cisterns, and sulci appear appropriate for patient age. Intraorbital contents appear unremarkable. Paranasal sinuses and mastoid air cells appear well aerated. IMPRESSION: * No acute intracranial findings by CT. Approved by Resident: Jeromy Louis MD on 12/17/2023 3:38 PM Amos Granados MD have personally reviewed the image(s) and agree with and/or edited the report Finalizedby Amos Erickson MD on 12/17/2023 3:51 PM ASSESSMENT/PLAN: Diagnoses and all orders for this visit: Dry mouth and eyes - patient is referred to Rheumatology to be checked for Sjogren disease - he has other underlying issues that can cause sicca symptoms like smoking and being on Seroquel - patient also prefers to go off Seroquel. Will discuss it with the PCP for further treatment - [facility] [place], [place] - Antinuclear Ab, HEp-2 Substrate, S; Future - Complement profile (C3 AND C4); Future - Unlisted Lab Test; Future - CHERYL Panel; Future TMJ (temporomandibular joint disorder) - He is scheduled for MRI Onychomycosis of toenail - He is on Terbinafine ASNHL (asymmetrical sensorineural hearing loss) - Followed by ENT Smoking - He should try quit smoking Follow up depends on results. Total time spent with the patient face to face was 45 minutes which included obtaining and reviewing history, performing an exam, educating and counseling the patient, communicating test results to the patient. Preparing to see the patient (reviewing all results, history, medications, my office notes, other physician notes), ordering tests/medications/referrals, documenting in the patient's health record time spent was 10 minutes This note was created with the assistance of a speech recognition program. While intending to generate a timely document that accurately reflects the content of the visit, no guarantee can be provided that every grammatical or spelling mistake has been or will be identified or corrected. Thank you for your understanding. [facility] Dr. Yon Chong M.D. [address] [place] [address], [address] [place] [address] Office: [phone] 12/27/2023 documented in this encounterWilson [facility] Hospital10-16-2024 History of Present illness Narrative* Duran Wilson DO - 12/22/2023 2:45 PM EDT Images from the original note were not included. [facility] [address] [place] [facility] [id number] SUBJECTIVE: Patient ID ([id number]): Raheem Cohn Jr. is a 49 y.o. male presents today for Chief Complaint Patient presents with Earache Nose Bleed HPI: Raheem is seen in follow up today for right otalgia. Patient was last seen on 08/04/2023. Patient was last seen for right otalgia that started after a dental procedure. Patient is edentulous. He was treated for an infection in his teeth, which resulted in the pulling of multiple teeth. Hefeels that he cracked something on the right side, which is causing referred ear pain. He has been using Flonase intermittently. Patient also has pain when swallowing. He drinks water regularly. Patient has a known history of asymmetrical hearing loss. Previously taken MRI brain IAC's was negative for retrocochlear pathology. HISTORY: Past Medical History: Diagnosis Date Acid reflux Anxiety Breathlessness lying flat Carpal tunnel syndrome Edentulous Hx of hepatitis C has been treated Jaw pain Murmur, cardiac as a child Neck pain Wears dentures Past Surgical History: Procedure Laterality Date HAND SURGERY MANDIBLE SURGERY TOOTH EXTRACTION WRIST SURGERY Family History Problem Relation Age of Onset Diabetes Maternal Grandmother Social History Socioeconomic History Marital status: Single Spouse name: Not on file Number of children: Not on file Years of education: Not on file Highest education level: Not on file Occupational History Not on file Tobacco Use Smoking status: Every Day Current packs/day: 0.00 Types: Cigarettes Last attempt to quit: 02/16/1994 Years since quittin.0 Smokeless tobacco: Former Vaping Use Vaping status: Former Substance and Sexual Activity Alcohol use: Not Currently Drug use: Not Currently Types: Methamphetamines Sexual activity: Defer Other Topics Concern Not on file Social History Narrative Not on file Social Drivers of Health Financial Resource Strain: High Risk (02/14/2024) Overall Financial Resource Strain (CARDIA) Difficulty of Paying Living Expenses: Very hard Food Insecurity: No Food Insecurity (02/17/2024) Hunger Screening Food Insecurity - Worry: Never True Food Insecurity - Inability: Never True Recent Concern: Food Insecurity - Food Insecurity Present (02/14/2024) Hunger Screening Food Insecurity - Worry: Sometimes True Food Insecurity - Inability: Sometimes True Transportation Needs: Unmet Transportation Needs (02/14/2024) PRAPARE - Transportation Lack of Transportation (Medical): No Lack of Transportation (Non-Medical): Yes Physical Activity: Not on file Stress: Not on file Social Connections: Not on file Interpersonal Safety: Not on file Housing Instability: High Risk (02/14/2024) Housing Instability Housing Instability: Yes Allergies Allergen Reactions Penicillins Anaphylaxis and Cough Anaphylaxis was listed per [facility]. Current Outpatient Medications Medication Sig Dispense Refill terbinafine (LamISIL) 250 mg tablet Take 1 tablet (250 mg total) by mouth in the morning. clonazePAM (KlonoPIN) 0.5 mg tablet Take 1 tablet (0.5 mg total) by mouth in the morning and 1 tablet (0.5 mg total) before bedtime. 60 tablet 0 indomethacin (INDOCIN) 25 mg capsule Take 1 capsule (25 mg total) by mouth in the morning and 1 capsule (25 mg total) at noon and 1 capsule (25 mg total) in the evening. Take with meals. 90 capsule 0 methocarbamoL (ROBAXIN) 750 mg tablet Take 1 tablet (750 mg total) by mouth in the morning and at bedtime. mupirocin (BACTROBAN) 2 % ointment Apply 1 Application topically 3 (three) times a day. 22 g 0 nortriptyline (PAMELOR) 25 mg capsule Take 1 capsule (25 mg total) by mouth in the morning and 1 capsule (25 mg total) before bedtime. omeprazole (PriLOSEC) 40 mg capsule Take 1 capsule (40 mg total) by mouth in the morning. valACYclovir (VALTREX) 500 mg tablet Take 1 tablet (500 mg total) by mouth in the morning. No current facility-administered medications for this visit. REVIEW OF SYSTEMS: Review of Systems Constitutional: Negative for chills and fever. HENT: Positive for ear pain, facial swelling, mouth sores, sinus pressure, sore throat, trouble swallowing and voice change. Negative for congestion, ear discharge, hearing loss, postnasal drip, rhinorrhea and sinus pain. Respiratory: Positive for shortness of breath. Negative for cough. Cardiovascular: Positive for chest pain and palpitations. Gastrointestinal: Positive for nausea. Negative for vomiting. Musculoskeletal: Positive for neck pain and neck stiffness. Skin: Positive for color change. Allergic/Immunologic: Positive for environmental allergies. Negative for food allergies. Neurological: Positive for dizziness and light-headedness. Negative for headaches. Hematological: Does not bruise/bleed easily. 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 Aural Fullness: Bilateral Otalgia: Bilateral Otorrhea: No Other significant history: None RESULTS: Otoscopic Evaluation: Right Ear: Unremarkable Left Ear: Unremarkable Immittance Measures: Right Ear: Type A Left Ear: Type A Pure Tone Audiometry: Right Ear: Normal hearing with a mild notch 3000-6000Hz Left Ear: Normal hearing with a moderate to mild notch 3000-6000Hz Asymmetry noted: left ear poorer ear 3000-4000Hz Reliability: good Speech Audiometry: SRT/CUSTOMER SERVICES COORDINATOR in good agreement WRS: Right Ear: Excellent (100%) Left Ear: Excellent (100%) RECOMMENDATIONS: Follow up with Dr. [facility] Steve on 12/22/23 Retest as needed Benjamin Bar, [facility]-[employer] Printer Swallow Study Esophagram 09/20/2023: PHYSICAL EXAMINATION: Temp 36.8 C (98.2 F) (Temporal) Ht 177.8 cm (5' 10 ) Wt 76.7 kg (169 lb) BMI 24.25 kg/m Constitutional: Healthy, alert, cooperative, and in no distress and normal ablility to communicate . Voice normal quality. Head/Face: Normocephalic, without obvious abnormality, salivary glands normal, atraumatic, sinuses nontender, and facial nerve intact Eyes: No gross abnormalities., EOMI, no nystagmus, and no lid ptosis Ear: RIGHT: hearing normal, external ear normal, canal normal, and TM normal without fluid or infection LEFT: hearing normal, external ear normal, canal normal, and TM normal without fluid or infection Nose: External nose appears normal, normal mucosa, no nasal polyps or masses, deviated nasal septumto the left, turbinate hypertrophy, and scabbing in the right nostril Oral: normal lips, normal gums, normal hard palate, normal anterior tongue, edentulous, and dry oral mucosa Oropharynx: normal-appearing mucosa, no pharyngitis, no exudate, trace tonsil tissue, and normal soft palate and uvula Nasopharynx: unable to view due to hyperactive gag reflex and See procedure note., Hypopharynx: unable to view due to hyperactive gag reflex and See procedure note., Larynx: unable to view due to hyperactive gag reflex. and See procedure note. TMJ: no pain, crepitus, or trismus Neck:normal, supple, no adenopathy, thyroid normal in size, no nodules or tenderness, no neck masses palpable, and carotids normal Respiration: No stridor, Normal respiratory effort. Heart: Regular rate Neurologic: Grossly normal Alert Oriented X 3 Affect normal Cranial nerves 2 -12 grossly intact Procedure Note: Flexible Laryngoscopy Pre-operative Diagnosis: Current smoker, right otalgia Post-operative Diagnosis: same Surgeon: Duran Wilson DO Anesthesia: Oxymetazoline and 4% Lidocaine Endoscopy Type: Flexible Laryngoscopy Procedure Details: Consent was obtained from the patient. The patient was placed in the sitting position. After topical anesthesia and decongestant applied, a flexible laryngoscope was passed. The nasal cavities, nasopharynx, oropharynx, hypopharynx, and larynx were all examined. Vocal cords were examined during respiration and phonation. The following findings were noted: Findings: Bilateral nares patent. Deviation to the left. Excoriation on the left. Bilateral nasal cavity without lesions or masses. Dryness and thickened drainage. Nasopharynx within normal limits. Bilateral eustachian tube orifices patent. Base of tongue, vallecula, epiglottis, ae folds, and bilateral piriform sinuses are within normal limits. Arytenoids, interarytenoid and postcricoid region are within normal limits. Bilateral vocal cords were mobile and symmetric. Condition: The procedure was successful and and tolerated well. Complications: None ASSESSMENT/PLAN: Raheem was seen today for earache and nose bleed. Diagnoses and all orders for this visit: Otalgia, right Nasal bleeding - mupirocin (BACTROBAN) 2 % ointment; Apply 1 Application topically in the morning and 1 Application before bedtime. Do all this for 10 days. 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 He currently uses Flonase for this. Instructed patient to discontinue Flonase usage. Prescribed Bactroban ointment. Use twice daily in the nose for 10 days. - The patient underwent an audiogram prior to the office visit. The results were reviewed and discussed with the patient. This showed type A tympanograms bilaterally. Asymmetrical hearing loss noted,with the left ear worse than the right. These results are consistent with previous hearing test from this office. - Reviewed patient's previous swallow studies (esophagram, modified). These were unremarkable. - CT sinus reviewed from 12/17/2023. This showed no acute abnormalities. - CT neck reviewed from 11/16/2023. This was unremarkable, except for noting that patient is edentulous (already known). - Flexible laryngoscopy was performed in office today. Findings were reviewed with the patient. This showed a septal deviation to the left. There was also an excoriation on the left. Otherwise, no obvious lesions or masses. - Patient with dry mouth and pain while swallowing. Patient's multiple swallow studies are negative. For patient's dry mouth (and possible dry eyes), consider consultation with rheumatology. - Discussed with patient that dental issues can cause referred otalgia or pain. I did review [facility] ENT notes and agree with referral to Neurology for atypical pain. He has also been sent to pain management but has not scheduled consultation yet. Scribe Statement: Scribed for and in the presence of Duran Wilson DO by Eva Jones (scribe). Eva Jones 12/22/2023 3:13 PM Provider Statement: I Duran Wilson DO personally performed the services described in the documentation as described bythe above named scribe in my presence. It is both accurate and complete at the time of final signature. Dr. Duran Wilson 12/22/2023 12:02 AM Counseling: The following elements of medical decision making were considered during this visit: Independently reviewed of images or pathology results, Reviewed and summarized previous records, and Independent interpretation of test performed by another physician or qualified healthcare provider not separatelyreported (tympanogram, audiogram, imaging). The patient was counseled regarding prognosis, risks and benefits of treatment options, impressions, importance of compliance with treatment and risk factor reductions. The patient verbalized understanding and agreement to the plan. Please note that parts of this chart were generated using voice recognition [employer] dictation software. Although every effort was made to ensure the accuracy of this automated regional sales trainer, some errors in regional sales trainer may have occurred. documented in this encounterProMedica Flower HospitalPneumaCare [id number] Instructions* Patient Instructions* Duran Wilson DO - 12/22/2023 2:45 PM EDT - Patient with intermittent epistaxis. He currently uses Flonase for this. Instructed patient to discontinue Flonase usage. Prescribed Bactroban ointment. Use twice daily in the nose for 10 days. - The patient underwent an audiogram prior to the office visit. The results were reviewed and discussed with the patient. This showed type A tympanograms bilaterally. Asymmetrical hearing loss noted,with the left ear worse than the right. These results are consistent with previous hearing test from this office. - Reviewed patient's previous swallow studies (esophagram, modified). These were unremarkable. - CT sinus reviewed from 12/17/2023. This showed no acute abnormalities. - CT neck reviewed from 11/16/2023. This was unremarkable, except for noting that patient is edentulous (already known). - Flexible laryngoscopy was performed in office today. Findings were reviewed with the patient. This showed a septal deviation to the left. There was also an excoriation on the left. Otherwise, no obvious lesions or masses. - Patient with dry mouth and pain while swallowing. Patient's multiple swallow studies are negative. For patient's dry mouth (and possible dry eyes), consider consultation with rheumatology. - Discussed with patient that dental issues can cause referred otalgia. - I did review [facility] ENT notes and agree with referral to Neurology for atypical pain. He has also been sent to pain management but has not scheduled consultation yet. documented in this encounterWilson Memorial Hospital10-15-2024 History of Present illness Narrative* SERAFIN Bar - 12/21/2023 3:00 PM EDT AUDIOLOGIC EVALUATION Reason for visit: CC: Patient reports the onset of ear and sinus issues about 20 months ago. He notes he was treated for an infection in his teeth and multiple teeth were pulled. Since this occurred, he is getting sinus/nasal drainage and bloody noses. He is also having ear pain/pressure and isn't able to put in hisdentures as a result. He gets severe ear pain every time he swallows. There is nothing that makes his ears feel better. He denies otorrhea. He has left ear tinnitus that has been present for the last18 months. The tinnitus is intermittent. He does not feel his hearing has been impacted since this began. If he closes his eyes, he feels very unsteady/off balance. 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 Aural Fullness: Bilateral Otalgia: Bilateral Otorrhea: No Other significant history: None RESULTS: Otoscopic Evaluation: Right Ear: Unremarkable Left Ear: Unremarkable Immittance Measures: Right Ear: Type A Left Ear: Type A Pure Tone Audiometry: Right Ear: Normal hearing with a mild notch 3000-6000Hz Left Ear: Normal hearing with a moderate to mild notch 3000-6000Hz Asymmetry noted: left ear poorer ear 3000-4000Hz Reliability: good Speech Audiometry: SRT/CUSTOMER SERVICES COORDINATOR in good agreement WRS: Right Ear: Excellent (100%) Left Ear: Excellent (100%) RECOMMENDATIONS: Follow up with Dr. Emery-Sarahijevon Wilson on 12/22/23 Retest as needed Benjamin Bar, [facility]-[employer] Printer documented in this encounterWilson Memorial Hospital10-15-2024 Miscellaneous Notes* Telephone Encounter - Tesha Escobarl - 12/21/2023 10:49 AM EDT Raheem stopped in and is agreeable to pain management and a trial of PT. documented in this encounterProMedica Flower HospitalTrustribe [facility] [id number] Telephone encounter Note* Telephone Encounter - Teshanubia Murphy - 12/21/2023 10:49 AM EDT Raheem stopped in and is agreeable to pain management and a trial of PT. [facility]10-14-[facility]24 History of Present illness Narrative* Jeimy Hi DMD - 12/20/2023 12:00 AM EDT Chief complaint - Patient presented for follow up of severe TMJ pain. 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 2 cervicalgia M79.12 myalgia neck G50.1 atypical facial pain Location - Right ear, Right TMJ, and top of the head, pending TMJ MRI this week, pending neck CT Appearance - Fatigued Chronology - Months Precipitating - Function Quality - Sharp Intensity - /10 Duration - 5 months Frequency - Daily, several times during function Ameliorating - None reported Aggravating - Function Associated symptoms - Migraines Imaging panoramic film: repeated today at no charge, suspect fractured right stylohyoid process. CT: of neck without contrast Ordered Last visit: 12.06.2023 Medical history: Reviewed and reconciled with [employer]. Changes in medical history since last visit: NONE Meds: Reviewed and reconciled with Epic. Changes in medical history since last visit: NONE Allergies: Reviewed and reconciled with Epic. Changes in medical history since last visit: NONE Family history: Reviewed and reconciled with Epic. Changes in medical history since last visit: NONE Social history: Reviewed and reconciled with Epic. Changes in medical history since last visit: NONE Social - Habits - ROS: - CONSTITUTIONAL: Denies unintentional weight loss, fever and chills. - HEENT: Denies changes in vision and hearing. - RESPIRATORY: Denies SOB and cough. - CV: Denies palpitations and CP. - GI: Denies abdominal pain, nausea, vomiting and diarrhea. - : Denies dysuria and urinary frequency. - MSK: Denies myalgia and joint pain. - SKIN: Denies rash and pruritus. - NEUROLOGICAL: Denies headache and syncope. - PSYCHIATRIC: Denies recent changes in mood. PHYSICAL EXAM: GENERAL: Alert and oriented x 3. No acute distress. Well-nourished, well-developed. CONSTITUTIONAL: AVSS VOICE: RESPIRATION: Breathing comfortably, no stridor. CARDIOVASCULAR: No clubbing/cyanosis/edema in hands. EYES: Extraocular movements intact, sclera normal, no scleral icterus, no lesions noted. NEURO: Detailed below. HEAD AND FACE: Symmetric facial features, no masses or lesions, sinuses nontender to palpation. SALIVARY GLANDS: Parotid and submandibular glands normal bilaterally. EARS: Normal external ears, external auditory canals, normal hearing to whispered voice. NOSE: External nose midline, anterior nasal cavity is normal with limited visualization to the anterior aspect of the interior turbinates. No lesions noted. ORAL CAVITY/OROPHARYNX/LIPS: Moist mucous membranes, no lesions noted. NECK/LYMPH NODES: No lymphadenopathy, no thyroid masses. Trachea palpably midline SKIN: Face and neck skin without scars, bruises, or injury PSYCH: Alert and oriented with appropriate mood and affect DETAILED EXAM: Cranial Nerves - II through XII grossly intact Detailed CN V: sensory: R: significant pain radiating across palate L:Normal V1-V3 Motor: R: Normal L: Normal Two point discrimination: equal, however very painful on right Directionality: Not done Detailed CN VII: motor R: Normal L: Normal Balance/Equilibrium - Finger tonose normal response. Romberg: not performed Patient has radiating and shooting pain upon touching upper lip to the right of the midline and chin, both radiating to the head, neck, and palate. NECK: No LAD. IOE: tongue scalloping present cheek ridging minor , wear Occlusion: PATIENT IS EDENTULOUS Midline: Coincident. Deviated to the mm Deviation/deflection - None ROM - DAVY: 37 mm passive: mm active: mm R lateral: mm L lateral: mm protrusion: mm Joint palpation: R TMJ dorsal:0/5 lateral:0 intrauaricular: 0 L TMJ dorsal:0/5 lateral:0 intraauricular:0 Joint sounds - R TMJ: None L TMJ: None Loading: R TMJ: ipsilateral pain: - contralateral pain:- L TMJ: ipsilateral pain: - contralateral pain:- Occlusion: stable and reproducible Myofascial Exam - Deep masseter: R:5 /5 L:5 Superficial masseter R:4 L:0 Anterior temp R:5 L:2 Medial/post temp R:3 L:4 Frontal R:5 L:2 Medial pterygoid R:3 L:0 Lateral pterygoid R:5 L:0 Digastric Ant R:0 L:0 Digastric post: R:0 L:0 Temp tendon R:0 L:0 Occipital R:5 L:0 Splenius R:0 L:0 Scalenes R:5 L:0 Trapezius R:0 L:0 Suprascapular R:5 L:0 SCM R:0 L:0 Stylohyoid R:5 L:0 Presence of trigger areas: to the right of midline of upper lip and chin Presence of ANS signs: None Impression: 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 2 cervicalgia M79.12 myalgia neck G50.1 atypical facial pain Plan: nortryptiline 25mg, increase to three times a day methocarbamol 750 mg twice a day noted ED visit with head imaging done a few days ago - no significant MANAGER OF MANUFACTURING findings CT scan to rule out fracture of R stylohyoid process Discussion/Counseling: as above visit : 28 min NV: follow up ----- Signed on December at 9:28:09 AM ----- ----- Provider: [id number] - Jeimy Hi DMD -- Clinic: [place] ----- documented in this [id number] History of Present illness Narrative* Carrington Fritz MD - 12/16/2023 11:30 AM EDT Subjective Patient ID: Raheem Cohn Jr. is a 48 y.o. male. Comes in with ongoing complaints related to his mouth, jaw, swallowing, and his ears. He did have recent ENT, audiology, and Neurology evaluation through the [facility] and those notes are reviewed. He was not able to complete the MRI that I ordered due to dry mouth and trouble swallowing. Heis going to reschedule that but thinks he probably needs some sedation in order to get through it. He is noting a little bit more congestion and rhinorrhea and when he was on antibiotics previously it did help some of his symptoms. He coughs out some discolored drainage at times. No blood. He is not running fever. CT scan done earlier this summer did not suggest sinus infection at that time. He has noticed some discoloration under his tongue and his mouth is frequently dry. The following portions of the patient's history were reviewed and updated as appropriate: allergies, current medications, past medical history, past social history, past surgical history, and problemlist. Review of Systems Objective Physical Exam Constitutional: Comments: Afebrile. He is not acutely in distress. Blood pressure mildly above ideal target. HENT: Nose: Rhinorrhea present. Mouth/Throat: Comments: His mouth does appear dry. He does not have any significant coating on his tongue or orallesions. Veins are visible on the underside of his tongue and that is what he sees as discolored. Pulmonary: Effort: Pulmonary effort is normal. Lymphadenopathy: Cervical: No cervical adenopathy. Assessment/Plan Will see if a course of antibiotic gives him any improvement. He will take Xanax prior to the MRI and see if that helps him complete the exam. Diagnoses and all orders for this visit: Subacute sinusitis, unspecified location - levoFLOXacin (LEVAQUIN) 500 mg tablet; Take 1 tablet (500 mg total) by mouth in the morning for 10 days. Anxiety - ALPRAZolam (XANAX) 1 mg tablet; Take 1 tab 30 minutes prior to MRI. May repeat once if needed. documented in this encounterHolden Memorial HospitalPinoyTravel10-04-2024 NoteHNO ID: [id number] Author: EYAL GARCIA MD Service: ? Author Type: Physician Type: Progress Notes Filed: 12/10/2023 11:04 Note Text: [facility] MEDICINE NEW EVALUATION December 10, 2023 10:40 AM I have communicated my name and active licensure. The patient's identity and physical location were verified at the time of this visit. Either the patient or their legal key account representative has been informed of the risks and benefits of -- and alternatives to -- treatment through a remote evaluation and consents to proceed with the evaluation remotely. VIDEO VISIT Trigeminal Neuralgia HPI Onset: - Pt reports that approximately 5 months ago--he had jaw surgery, and during recovery opened mouth very wide and her a pop/felt a pop. He reports right jaw and facial pain since that time. ++ ear canal pain, ++ roof of mouth pain. Feels the entire area is tight, and drawn like a rubber band. Reports radiation to entire head at times, although pain more located on RIGHT. Side: right Distribution: V2 and V3 Any pain on the side or back of head: Yes Character: sharp/shooting Duration: constantly present. Pain-free between episodes: No Triggers: swallowing and talking - Swallowing causes ear to pop as well. Sensory abnormalities: Yes - pt reports that his entire head can become numb at times--both left and right side. Atypical. Initial benefit from Tegretol/Trileptal: He has not tried. History of MS: No History of Lyme disease: No History of shingles facial rash: No History of dental/oral surgery: Yes History of facial/plastic surgery: No Type of Trigeminal Neuralgia: pending workup Pain in roof of mouth and around mastoid. PAST MEDICAL HISTORY Diagnosis Date Amphetamine and other psychostimulant dependence, episodic (HCC) 06/03/2007 clean 09/11, again clean since 01/2013 Anxiety state, unspecified Carpal tunnel syndrome, bilateral Chronic back pain Heart murmur child Hepatitis C Insomnia, unspecified IVDU (intravenous drug user) in past, last in 2009 Verruca vulgaris right hand PAST SURGICAL HISTORY Procedure Laterality Date ANES DX/THER NERVE BLOCK/INJECTION PRONE POS 2012 CRYOSURGERY right hand wart PAST SURGICAL HISTORY OF 1992 right hand fracture Current Outpatient Medications Medication Sig iv contrast (will be provided with radiology test) MRI Brain Inject, intravenously, once for 1 dose.No IV access, insert saline lock prior to beginning of sedation, infusion, injection of imaging exam.Discontinue saline lock post exam. If Pt. has a central line or IVAD, may access for administration according to line specific nursing protocol.Once exam is complete flush line and de-access according to line specific nursing protocol in the MR contrast administration guidelines link terbinafine HCl (LAMISIL) 250 mg tablet Take 250 mg by mouth once daily. QUEtiapine (SEROQUEL) 100 mg tablet Take 200 mg by mouth daily at bedtime. nortriptyline (PAMELOR) 25 mg capsule Take 1 capsule by mouth two times a day. omeprazole (PRILOSEC) 40 mg capsule Take 40 mg by mouth once daily. chlorhexidine (HIBICLENS) 4 % external liquid Apply 1 application to affected area once daily as needed. No current facility-administered medications for this visit. ALLERGIES Allergen Reactions Penicillins Anaphylaxis FAMILY HISTORY Problem Relation Age of Onset other (Unknown [Other]) Father other (Anxiety [Other]) Mother Social History Tobacco Use Smoking status: Every Day Current packs/day: 0.30 Average packs/day: 0.3 packs/day for 16.0 years (4.8 ttl pk-yrs) Types: Cigarettes Smokeless tobacco: Current Tobacco comments: Pt basically does chew Substance Use Topics Alcohol use: No Drug use: Yes Types: Amphetamines Comment: recovering addict since 2006, was on Meth and IV drugs PHYSICAL EXAMINATION: No vitals for VV General appearance: Well appearing, alert, in no acute distress, well-hydrated, well nourished. Head: NC/AT Eyes: EOMI grossly on video visit Neuro: Negative findings: speech normal, mental status intact, no focal deficits. CN VII intact to facial symmetry, CN VIII intact to hearing. 09/22/23: [facility]: CT-Soft Tissue: Facial Bones: FINDINGS: Facial Bones: No acute orbital wall fracture. No acute maxillofacial or mandible fracture. Temporal mandibular joints are located within the mandibular fossa bilaterally. Edentulous maxilla and mandible Facial Soft Tissues: Unremarkable. Paranasal Sinuses: Normal Temporal Bone and Mastoid Air Cells: Normal Orbits: Normal Included portions of the brain: Normal IMPRESSION: No acute facial bone fracture. No evidence of TMJ dislocation. If there is concern for internal derangement of the temporomandibular joint nonemergent outpatient MRI of the TMJ may be performed. Diagnoses and all orders for this visit: Atypical facial pain - MRI BRAIN WO/W IVCON; Future - iv contrast (will be provided wi (more content not included)...[facility]10-04-2024 History of Present illness Narrative* Eyal Garcia MD - 12/10/2023 10:27 AM EDT [facility] NEW EVALUATION December 10, 2023 10:40 AM I have communicated my name and active licensure. The patient's identity and physical location wereverified at the time of this visit. Either the patient or their legal key account representative has been informed of the risks and benefits of -- and alternatives to -- treatment through a remote evaluation andconsents to proceed with the evaluation remotely. VIDEO VISIT Trigeminal Neuralgia HPI Onset: - Pt reports that approximately 5 months ago--he had jaw surgery, and during recovery openedmouth very wide and her a pop/felt a pop. He reports right jaw and facial pain since that time. ++ ear canal pain, ++ roof of mouth pain. Feels the entire area is tight, and drawn like a rubber band.Reports radiation to entire head at times, although pain more located on RIGHT. Side: right Distribution: V2 and V3 Any pain on the side or back of head: Yes Character: sharp/shooting Duration: constantly present. Pain-free between episodes: No Triggers: swallowing and talking - Swallowing causes ear to pop as well. Sensory abnormalities: Yes - pt reports that his entire head can become numb at times--both left and right side. Atypical. Initial benefit from Tegretol/Trileptal: He has not tried. History of MS: No History of Lyme disease: No History of shingles facial rash: No History of dental/oral surgery: Yes History of facial/plastic surgery: No Type of Trigeminal Neuralgia: pending workup Pain in roof of mouth and around mastoid. PAST MEDICAL HISTORY Diagnosis Date Amphetamine and other psychostimulant dependence, episodic (HCC) 06/03/2007 clean 09/11, again clean since 01/2013 Anxiety state, unspecified Carpal tunnel syndrome, bilateral Chronic back pain Heart murmur child Hepatitis C Insomnia, unspecified IVDU (intravenous drug user) in past, last in 2009 Verruca vulgaris right hand PAST SURGICAL HISTORY Procedure Laterality Date ANES DX/THER NERVE BLOCK/INJECTION PRONE POS 2012 CRYOSURGERY right hand wart PAST SURGICAL HISTORY OF 1992 right hand fracture Current Outpatient Medications Medication Sig iv contrast (will be provided with radiology test) MRI Brain Inject, intravenously, once for 1 dose.No IV access, insert saline lock prior to beginning of sedation, infusion, injection of imaging exam.Discontinue saline lock post exam. If Pt. has a central line or IVAD, may access for administration according to line specific nursing protocol.Once exam is complete flush line and de-access according to line specific nursing protocol in the MR contrast administration guidelines link terbinafine HCl (LAMISIL) 250 mg tablet Take 250 mg by mouth once daily. QUEtiapine (SEROQUEL) 100 mg tablet Take 200 mg by mouth daily at bedtime. nortriptyline (PAMELOR) 25 mg capsule Take 1 capsule by mouth two times a day. omeprazole (PRILOSEC) 40 mg capsule Take 40 mg by mouth once daily. chlorhexidine (HIBICLENS) 4 % external liquid Apply 1 application to affected area once daily as needed. No current facility-administered medications for this visit. ALLERGIES Allergen Reactions Penicillins Anaphylaxis FAMILY HISTORY Problem Relation Age of Onset other (Unknown [Other]) Father other (Anxiety [Other]) Mother Social History Tobacco Use Smoking status: Every Day Current packs/day: 0.30 Average packs/day: 0.3 packs/day for 16.0 years (4.8 ttl pk-yrs) Types: Cigarettes Smokeless tobacco: Current Tobacco comments: Pt basically does chew Substance Use Topics Alcohol use: No Drug use: Yes Types: Amphetamines Comment: recovering addict since 2006, was on Meth and IV drugs PHYSICAL EXAMINATION: No vitals for VV General appearance: Well appearing, alert, in no acute distress, well-hydrated, well nourished. Head: NC/AT Eyes: EOMI grossly on video visit Neuro: Negative findings: speech normal, mental status intact, no focal deficits. CN VII intact to facial symmetry, CN VIII intact to hearing. 09/22/23: [facility]: CT-Soft Tissue: Facial Bones: FINDINGS: Facial Bones: No acute orbital wall fracture. No acute maxillofacial or mandible fracture. Temporalmandibular joints are located within the mandibular fossa bilaterally. Edentulous maxilla and mandible Facial Soft Tissues: Unremarkable. Paranasal Sinuses: Normal Temporal Bone and Mastoid Air Cells: Normal Orbits: Normal Included portions of the brain: Normal IMPRESSION: No acute facial bone fracture. No evidence of TMJ dislocation. If there is concern for internal derangement of the temporomandibular joint nonemergent outpatient MRI of the TMJ may be performed. Diagnoses and all orders for this visit: Atypical facial pain - MRI BRAIN WO/W IVCON; Future - iv contrast (will be provided with radiology test); MRI Brain Inject, intravenously, once for 1 dose.No IV access, insert saline lock prior to beginning of sedation, infusion, injection of imaging exam.Discontinue saline lock post exam. If Pt. has a central line or IVAD, may access for administration according to line specific nursing protocol.Once exam is complete flush line and de-access according to line specific nursing protocol in the MR contrast administration guidelines link Muscular pain - CONSULT TO [facility] Right facial pain - MRI BRAIN WO/W IVCON; Future - iv contrast (will be provided with radiology test); MRI Brain Inject, intravenously, once for 1 dose.No IV access, insert saline lock prior to beginning of sedation, infusion, injection of imaging exam.Discontinue saline lock post exam. If Pt. has a central line or IVAD, may access for administration according to line specific nursing protocol.Once exam is complete flush line and de-access according to line specific nursing protocol in the MR contrast administration guidelines link Pt reporting RIGHT facial pain with atypical characteristics. MRI-BRAIN to r/o trigeminal nerve pathology. May need follow-up MRI-TMJ. We will defer medication treatment until diagnostic imaging completed. Eyal Garcia MD December 10, 2023 11:03 AM documented in [facility] History of Present illness Narrative* Tatyana Roman AUD - 12/08/2023 2:30 PM EDT Images from the original note were not included. [facility] [place] [facility] Section of Audiology AUDIOLOGIC EVALUATION REPORT Name: Raheem Cohn [facility]#: [id number] Date of Service: 12/08/2023 Date of : 1975 Age: [age] year old Referred by: SELF Referred for: Evaluation of suspected change in hearing, tinnitus, or balance. Referral documented: No referral on file Patient's major complaints: Otalgia in both ears, Pressure/fullness in both ears Raheem Cohn was seen for an initial audiologic evaluation, prior to medical consultation with Kory Kirkland APRN.[facility]. At today's appointment, patient reported that he had tingling in his ears, then was driving in the mountains in [place] when the ears started to pop and then he started hallucinating until he was given antibiotics. He has since had all of his teeth removed and other facial procedures, and then cracking starting in right ear that has been spreading across the roof of his mouth and across to the other side. He has bilateral ear pain and pain across his face, as well as aninternal tugging/tingling sensation inside his head and ears. 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 Hedenied otorrhea, tinnitus, surgery of the ear, and family history of childhood hearing loss. Refer to audiogram under Procedures tab for results. IMPRESSIONS RIGHT EAR: Sensorineural hearing loss LEFT EAR: Sensorineural hearing loss AUDIOLOGIC EVALUATION Following is a brief interpretation of the obtained findings from the audiologic evaluation. Refer to the Auditory Test Record for complete audiometric results. The patient was counseled about the test findings and appropriate audiologic recommendations were made. SUMMARY: Audiogram can be viewed under Procedures tab. OTOSCOPY RIGHT EAR: Otoscopic inspection revealed ear canal was clear with an identifiable cone of light. LEFT EAR: Otoscopic inspection revealed ear canal was clear with an identifiable cone of light. TYMPANOMETRY Description of procedure: This test is an objective evaluation of middle ear function. CPT code: 75432 RIGHT EAR: Normal ME function. LEFT EAR: Normal ME function. ACOUSTIC REFLEXES Description of procedure: This test is an objective measure of auditory and facial nerve pathways. CPT code: 71074, 67986 RIGHT EAR PROBE EAR: (ipsi right stimulus ear; contralateral left stimulus ear): Acoustic Reflex Pattern Did not test Acoustic Reflex Decay (left stimulus ear): Did not test. LEFT EAR PROBE EAR: (ipsi left stimulus ear; contralateral right stimulus ear): Acoustic Reflex Pattern Did not test Acoustic Reflex Decay (right stimulus ear):Did not test. PURE TONE AUDIOMETRY AND SPEECH TESTING Description of procedure: This test is an objective evaluation hearing sensitivity via air and boneconduction and speech recognition testing. CPT code:07395 RIGHT EAR: Hearing Sensitivity: WNL with a mild SNHL notch 7806-2837 Hz. Word Recognition Score: Excellent (100%). WRS is consistent with hearing sensitivity. Words were presented at 55 dB HL which approximates (45-55 dB HL) intensity level for average conversational speech. The NU-6 Ordered by Difficulty Word List (10 words) was used for testing. LEFT EAR: Hearing Sensitivity: WNL with a mild SNHL notch 4438-6756 Hz. Word Recognition Score: Excellent (100%). WRS is consistent with hearing sensitivity. Words were presented at 55 dB HL which approximates (45-55 dB HL) intensity level for average conversational speech. The NU-6 Ordered by Difficulty Word List (10 words) was used for testing. RECOMMENDATIONS * Continue medical follow-up with Danielle Kirkland CNP. * Re-evaluation as medically indicated or if a change in hearing is noted. * The patient was counseled regarding the need to monitor hearing and have regular hearing assessments. Elyse Akhtar B.A. Doctor of Audiology (Serafin) Aviation Technical Systems Specialist Testing was obtained under the direct supervision of Serafin Chavez CCC/Serafin Alvarado CCC/Ke[employer] Clinical Carbon Printer MENDIETA Abbrev- iation Definition Degree of hearing sensitivity dB range WNL within normal limits WNL 0 - 20 SNHL sensorineural hearing loss Mild 20-40 CHL conductive hearing loss Moderate 40-55 MHL mixed hearing loss Moderately-Severe 55-70 WRS word recognition score Severe 70-90 ME middle ear Profound 90 + TM tympanic membrane documented in this encounterRegional [facility] Center10-02-2024 NoteHNO ID: [id number] Author: TATYANA ROMAN AUD Service: ? Author Type: Carbon Printer Type: Progress Notes Filed: 12/09/2023 08:28 Note Text: [facility] [place] [facility] Section of Audiology AUDIOLOGIC EVALUATION REPORT Name: Raheem Cohn [facility]#: [id number] Date of Service: 12/08/2023 Date of : 1975 Age: [age] year old Referred by: SELF Referred for: Evaluation of suspected change in hearing, tinnitus, or balance. Referral documented: No referral on file Patient's major complaints: Otalgia in both ears, Pressure/fullness in both ears Raheem Cohn was seen for an initial audiologic evaluation, prior to medical consultation with Kory Kirkland APRN.CNP. At today's appointment, patient reported that he had tingling in his ears, then was driving in the mountains in [place] when the ears started to pop and then he started hallucinating until he was given antibiotics. He has since had all of his teeth removed and other facial procedures, and then cracking starting in right ear that has been spreading across the roof of his mouth and across to the other side. He has bilateral ear pain and pain across his face, as well as an internal tugging/tingling sensation inside his head and ears. 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 He denied otorrhea, tinnitus, surgery of the ear, and family history of childhood hearing loss. Refer to audiogram under Procedures tab for results. IMPRESSIONS RIGHT EAR: Sensorineural hearing loss LEFT EAR: Sensorineural hearing loss AUDIOLOGIC EVALUATION Following is a brief interpretation of the obtained findings from the audiologic evaluation. Refer to the Auditory Test Record for complete audiometric results. The patient was counseled about the test findings and appropriate audiologic recommendations were made. SUMMARY: Audiogram can be viewed under Procedures tab. OTOSCOPY RIGHT EAR: Otoscopic inspection revealed ear canal was clear with an identifiable cone of light. LEFT EAR: Otoscopic inspection revealed ear canal was clear with an identifiable cone of light. TYMPANOMETRY Description of procedure: This test is an objective evaluation of middle ear function. CPT code: 13649 RIGHT EAR: Normal ME function. LEFT EAR: Normal ME function. ACOUSTIC REFLEXES Description of procedure: This test is an objective measure of auditory and facial nerve pathways. CPT code: 09064, 04767 RIGHT EAR PROBE EAR: (ipsi right stimulus ear; contralateral left stimulus ear): Acoustic Reflex Pattern Did not test Acoustic Reflex Decay (left stimulus ear): Did not test. LEFT EAR PROBE EAR: (ipsi left stimulus ear; contralateral right stimulus ear): Acoustic Reflex Pattern Did not test Acoustic Reflex Decay (right stimulus ear):Did not test. PURE TONE AUDIOMETRY AND SPEECH TESTING Description of procedure: This test is an objective evaluation hearing sensitivity via air and bone conduction and speech recognition testing. CPT code:87647 RIGHT EAR: Hearing Sensitivity: WNL with a mild SNHL notch 9055-7082 Hz. Word Recognition Score: Excellent (100%). WRS is consistent with hearing sensitivity. Words were presented at 55 dB HL which approximates (45-55 dB HL) intensity level for average conversational speech. The NU-6 Ordered by Difficulty Word List (10 words) was used for testing. LEFT EAR: Hearing Sensitivity: WNL with a mild SNHL notch 1140-6604 Hz. Word Recognition Score: Excellent (100%). WRS is consistent with hearing sensitivity. Words were presented at 55 dB HL which approximates (45-55 dB HL) intensity level for average conversational speech. The NU-6 Ordered by Difficulty Word List (10 words) was used for testing. RECOMMENDATIONS * Continue medical follow-up with Danielle Kirkland CNP. * Re-evaluation as medically indicated or if a change in hearing is noted. * The patient was counseled regarding the need to monitor hearing and have regular hearing assessments. Elyse Akhtar B.A. Doctor of Audiology (Serafin) Aviation Technical Systems Specialist Testing was obtained under the direct supervision of Serafin Chavez, LUDIN/Serafin Alvarado, LUDIN/A Clinical Carbon Printer MENDIETA Abbrev- iation Definition Degree of hearing sensitivity dB range WNL within normal limits WNL 0 - 20 SNHL sensorineural hearing loss Mild 20-40 CHL conductive hearing loss Moderate 40-55 MHL mixed hearing loss Moderately-Severe 55-70 WRS word recognition score Severe 70-90 ME middle ear Profound 90 + TM tympanic membraneAshtabula [facility]10-02-[facility]24 Instructions* Patient Instructions* Kory Kirkland APRN.CNP - 12/08/2023 2:24 PM EDT - use Aleve (440 mg) or Ibuprofen (600 mg) for the pain as needed - jaw exercises and massages as discussed - warm compresses to the area as needed - avoid clenching - avoid excessively hard/chewy foods documented in this encounterRegional Medical Center10-02-2024 NoteHNO ID: [id number] Author: KORY KIRKLAND APRN.CNP Service: ? Author Type: Nurse Practitioner Type: Progress Notes Filed: 12/09/2023 07:49 Note Text: OTOLARYNGOLOGY-HEAD AND NECK SURGERY CC: Raheem Cohn is a 48 year old male who is self referred for TMD. Assessment: Dislocation of temporomandibular joint, subsequent encounter (primary encounter diagnosis) Plan: - I personally interpreted and reviewed audiogram which showed essentially normal hearing with type A tympanometry bilaterally. On exam external auditory canal's are patent and tympanic membrane's are clear and intact. - CT of the temporal bones to rule out any inner ear abnormality. - Consult placed to dentistry - Consult placed to physical therapy - Consult to [facility] - Follow-up with me as needed Kory Kirkland APRN.[facility] HPI: 18 months ago [place] a popping in his right ear while going up and down hills. Starting hearing things. Went to the ED and was hospitalized in a mental facility for a month for hallucinations. Was finally treated with antibiotics and his hallucinating improved Thought there was a dental infection on the right side and had his teeth removed. Broke his jaw doing this Has a MRI of the jaw scheduled for TMJ Sees an oral surgeon who ordered a CT of his throat Reports right ear to his cheek he feels twisting and turning Hears constant cracking with movement when he turns left. ALLERGIES Allergen Reactions Penicillins Anaphylaxis Current Outpatient Medications Medication Sig chlorhexidine (HIBICLENS) 4 % external liquid Apply 1 application to affected area once daily as needed. No current facility-administered medications for this visit. PAST MEDICAL HISTORY Diagnosis Date Amphetamine and other psychostimulant dependence, episodic (HCC) 06/03/2007 clean 09/11, again clean since 01/2013 Anxiety state, unspecified Carpal tunnel syndrome, bilateral Chronic back pain Heart murmur child Hepatitis C Insomnia, unspecified IVDU (intravenous drug user) in past, last in 2009 Verruca vulgaris right hand PAST SURGICAL HISTORY Procedure Laterality Date ANES DX/THER NERVE BLOCK/INJECTION PRONE POS 2013 CRYOSURGERY right hand wart PAST SURGICAL HISTORY OF 1992 right hand fracture Social History: Social History Tobacco Use Smoking status: Every Day Current packs/day: 0.30 Average packs/day: 0.3 packs/day for 16.0 years (4.8 ttl pk-yrs) Types: Cigarettes Smokeless tobacco: Current Tobacco comments: Pt basically does chew Substance Use Topics Alcohol use: No Drug use: Yes Types: Amphetamines Comment: recovering addict since 2006, was on Meth and IV drugs FAMILY HISTORY Problem Relation Age of Onset other (Unknown [Other]) Father other (Anxiety [Other]) Mother ROS: GENERAL: No weight loss, malaise or fevers. HEENT: Negative for frequent or significant headaches, No changes in hearing or vision, No nasal bleeding, congestion or rhinorrhea, No sore throat or change in voice NECK: Negative for lumps, goiter, pain and significant neck swelling RESPIRATORY: Negative for cough, hemoptysis, wheezing or shortness of breath CARDIOVASCULAR: Negative for chest pain, leg swelling or palpitations. GASTROINTESTINAL: No nausea, vomiting, or diarrhea MUSCULOSKELETAL: Negative for joint pain or swelling, back pain or muscle pain. NEUROLOGIC: Negative for focal numbness or weakness, headaches and dizziness or syncope. SKIN: Negative for lesions, rash, and itching. HEMATOLOGIC/LYMPHATIC/IMMUNOLOGIC: Negative for prolonged bleeding, bruising easily or swollen nodes. ENDOCRINE: Negative for cold or heat intolerance, polyuria, polydipsia and goiter. PHYSICAL EXAM: On physical examination Raheem Cohn is a well-developed, well nourished male. His speech is intact and his voice is a normal speaking voice. Mental status revealed patient to be alert and oriented. Mood is appropriate. Details of the physical examination: HEAD AND FACE: Physical examination of the head, neck, external nose, external ears, mouth and face fails to demonstrate any significant abnormality or asymmetry to critical face to face observation. Skin and scalp are normal. EARS: RT Canal: patent RT Drum: intact RT Pneumotoscopy: mobile LT Canal: patent LT Drum: intact LT Pneumotoscopy: mobile NOSE: Examination of the nasal cavity revealed a septum which is midline. The mucosa is pink, and the visible turbinates are normal on anterior rhinoscopy. There is no purulence or polyps. MASTICATION: Edentulous. The lips and gums are without lesions. ORAL CAVITY AND OROPHARYNX: The oral mucosa, hard and soft palates, tongue, tonsil area, and posterior pharyngeal wall are without lesions. NECK: The neck appears symmetric without scars. On palpation, there are no masses or lymphadenopathy. The thyroid is not palpable and was (more content not included)...[facility]10[facility] History of Present illness Narrative* Kory Kirkland APRN.[facility] - 12/08/2023 1:50 PM EDT Images from the original note were not included. OTOLARYNGOLOGY-HEAD AND NECK SURGERY CC: Raheem Cohn is a 48 year old male who is self referred for TMD. Assessment: Dislocation of temporomandibular joint, subsequent encounter (primary encounter diagnosis) Plan: - I personally interpreted and reviewed audiogram which showed essentially normal hearing with typeA tympanometry bilaterally. On exam external auditory canal's are patent and tympanic membrane's are clear and intact. - CT of the temporal bones to rule out any inner ear abnormality. - Consult placed to dentistry - Consult placed to physical therapy - Consult to [facility] - Follow-up with me as needed Kory Kirkland APRN.[facility] HPI: 18 months ago he was driving on the [facility] and noticed a popping in his right ear while going up and down hills. Starting hearing things. Went to the ED and was hospitalized in a mental facility for a month for hallucinations. Was finally treated with antibiotics and his hallucinating improved Thought there was a dental infection on the right side and had his teeth removed. Broke his jaw doing this Has a MRI of the jaw scheduled for TMJ Sees an oral surgeon who ordered a CT of his throat Reports right ear to his cheek he feels twisting and turning Hears constant cracking with movement when he turns left. ALLERGIES Allergen Reactions Penicillins Anaphylaxis Current Outpatient Medications Medication Sig chlorhexidine (HIBICLENS) 4 % external liquid Apply 1 application to affected area once daily as needed. No current facility-administered medications for this visit. PAST MEDICAL HISTORY Diagnosis Date Amphetamine and other psychostimulant dependence, episodic (HCC) 06/03/2007 clean 09/11, again clean since 01/2013 Anxiety state, unspecified Carpal tunnel syndrome, bilateral Chronic back pain Heart murmur child Hepatitis C Insomnia, unspecified IVDU (intravenous drug user) in past, last in 2009 Verruca vulgaris right hand PAST SURGICAL HISTORY Procedure Laterality Date ANES DX/THER NERVE BLOCK/INJECTION PRONE POS 2012 CRYOSURGERY right hand wart PAST SURGICAL HISTORY OF 1992 right hand fracture Social History: Social History Tobacco Use Smoking status: Every Day Current packs/day: 0.30 Average packs/day: 0.3 packs/day for 16.0 years (4.8 ttl pk-yrs) Types: Cigarettes Smokeless tobacco: Current Tobacco comments: Pt basically does chew Substance Use Topics Alcohol use: No Drug use: Yes Types: Amphetamines Comment: recovering addict since 2006, was on Meth and IV drugs FAMILY HISTORY Problem Relation Age of Onset other (Unknown [Other]) Father other (Anxiety [Other]) Mother ROS: GENERAL: No weight loss, malaise or fevers. HEENT: Negative for frequent or significant headaches, No changes in hearing or vision, No nasal bleeding, congestion or rhinorrhea, No sore throat or change in voice NECK: Negative for lumps, goiter, pain and significant neck swelling RESPIRATORY: Negative for cough, hemoptysis, wheezing or shortness of breath CARDIOVASCULAR: Negative for chest pain, leg swelling or palpitations. GASTROINTESTINAL: No nausea, vomiting, or diarrhea MUSCULOSKELETAL: Negative for joint pain or swelling, back pain or muscle pain. NEUROLOGIC: Negative for focal numbness or weakness, headaches and dizziness or syncope. SKIN: Negative for lesions, rash, and itching. HEMATOLOGIC/LYMPHATIC/IMMUNOLOGIC: Negative for prolonged bleeding, bruising easily or swollen nodes. ENDOCRINE: Negative for cold or heat intolerance, polyuria, polydipsia and goiter. PHYSICAL EXAM: On physical examination Raheem Cohn is a well-developed, well nourished male. His speech is intact and his voice is a normal speaking voice. Mental status revealed patient to be alert and oriented. Mood is appropriate. Details of the physical examination: HEAD AND FACE: Physical examination of the head, neck, external nose, external ears, mouth and facefails to demonstrate any significant abnormality or asymmetry to critical face to face observation.Skin and scalp are normal. EARS: RT Canal: patent RT Drum: intact RT Pneumotoscopy: mobile LT Canal: patent LT Drum: intact LT Pneumotoscopy: mobile NOSE: Examination of the nasal cavity revealed a septum which is midline. The mucosa is pink, and the visible turbinates are normal on anterior rhinoscopy. There is no purulence or polyps. MASTICATION: Edentulous. The lips and gums are without lesions. ORAL CAVITY AND OROPHARYNX: The oral mucosa, hard and soft palates, tongue, tonsil area, and posterior pharyngeal wall are without lesions. NECK: The neck appears symmetric without scars. On palpation, there are no masses or lymphadenopathy. The thyroid is not palpable and was free of masses. No salivary gland masses or hypertrophy is noted. PROCEDURES: None REVIEW OF RADIOLOGICAL FILMS AND RECORDS: MRI BRAIN: 07/24/2023 HISTORY: Left-sided sensorineural hearing loss. Multisequence multiplanar imaging of the brain was obtained to include intravenous administration of contrast and high-resolution images of the internal auditory canals. White matter signal characteristics unremarkable without evidence of chronic ischemia or demyelination. There is no susceptibility on gradient echo sequences. Flow voids are normal in caliber and contour. 7th and 8th cranial nervecomplexes appear unremarkable. There is no obvious abnormality the cochlea, vestibule, or semicircular canals. The diffusion- weighted images and corresponding ADC map show no focus of diffusion restriction or acute intracranial ischemia. Cerebellar tonsils are normal position. Contrast-enhanced imaging was obtained in 3 planes showing no focus of abnormal intra-axial or extra-axial enhancement. Dural sinuses enhance normally. No obvious abnormality the internal auditory canals or cerebellopontine angles. Flow voids are normal in caliber. Sinuses appear clear. IMPRESSION: Negative exam. CT FACIAL BONES/DAMON: 09/22/2023 FINDINGS: Facial Bones: No acute orbital wall fracture. No acute maxillofacial or mandible fracture. Temporalmandibular joints are located within the mandibular fossa bilaterally. Edentulous maxilla and mandible Facial Soft Tissues: Unremarkable. Paranasal Sinuses: Normal Temporal Bone and Mastoid Air Cells: Normal Orbits: Normal Included portions of the brain: Normal IMPRESSION: No acute facial bone fracture. No evidence of TMJ dislocation. If there is concern for internal derangement of the temporomandibular joint nonemergent outpatient MRI of the TMJ may be performed. AUDIOGRAM: 12/08/2023 Kory Kirkland APRN.KARUNA Medical Decision Making: Problems: Moderate: New problem with uncertain prognosis Data: Unique source(s) for external note(s) reviewed: 2 Unique test result(s) reviewed: 2 Unique test(s) ordered: 1 Risk: Low: Low risk from testing/treatment Medical Decision Making Level: 4 - Moderate [facility] Telephone encounter Note * Telephone Encounter - Octavio Ngo - 12/07/2023 4:34 PM EDT What is the need: Situation: CT Scan Issue Background: Pt called in to set up CT scan. He said the earliest they could get him in was 12/23/23. He is very upset and wanted someone from [facility] to follow up and see if they can assist. Recommendation: Please call Pt at Telephone Information: Thanks! Octavio Ngo Sent urgent message in [facility] on 12/08/23 [id number] Miscellaneous Notes* Telephone Encounter - Octavio Ngo - 12/07/2023 4:34 PM EDT What is the need: Situation: CT Scan Issue Background: Pt called in to set up CT scan. He said the earliest they could get him in was 12/23/23. He is very upset and wanted someone from [facility] to follow up and see if they can assist. Recommendation: Please call Pt at Telephone Information: Thanks! Octavio Ngo Sent urgent message in [employer] on 12/08/23 documented in this [id number] History of Present illness Narrative* Carrington Fritz MD - 11/24/2023 9:15 AM EDT Subjective Patient ID: Raheem Cohn Jr. is a 48 y.o. male. Comes in for follow up. His symptoms continue as reported previously. The clotrimazole did seem to help clear the coating on his tongue but did not otherwise affect his symptoms. Since initially cracking his jaw on the R he has had a crackling sound in his ears when he swallows, and sometimes in his head. He feels a sensation across the roof of his mouth. He can't open his mouth fully on the R side and he feels like that goes up into his ear. Previous ENT evaluation negative and CT of the facial bones negative. MRI of auditory canals negative. He does not have dysphagia. The following portions of the patient's history were reviewed and updated as appropriate: allergies, current medications, past medical history, past social history, past surgical history, and problemlist. Review of Systems Objective Physical Exam Constitutional: Comments: He is anxious but interacts appropriately. HENT: Head: Comments: No palpable abnormality over his jaw or face. Right Ear: Tympanic membrane and ear canal normal. Left Ear: Tympanic membrane and ear canal normal. Mouth/Throat: Comments: Edentulous. Minor tongue coating. No other oral lesions. Neck: Vascular: No carotid bruit. Pulmonary: Effort: Pulmonary effort is normal. Breath sounds: Normal breath sounds. Lymphadenopathy: Cervical: No cervical adenopathy. Neurological: General: No focal deficit present. Assessment/Plan The CT report of his facial bones recommended MRI TMJ. Insurance is yet to approve that study. He is concerned about the roof of his mouth being seen on imaging. It was already visualized adequately on the CT imaging. The area of concern is his R TMJ, the cracking history with subsequent diminishedROM. We will also seek some additional ENT input. I think the noise he hears in his ears is relatedto the Eustachian tubes and relatively common/normal but he interprets it as pathologic. Diagnoses and all orders for this visit: TMJ (temporomandibular joint disorder) Oral thrush - clotrimazole (MYCELEX) 10 mg roxana; Dissolve 1 tablet (10 mg total) in the mouth 3 (three) timesa day for 10 days. [facility] Miscellaneous Notes* Telephone Encounter - YUNIER Mata - 11/23/2023 10:36 AM EDT Order for MRI TMJ needed instead of MRI Face, per denial and MRI. documented in [facility]Wilson [facility] Telephone encounter Note* Telephone Encounter - YUNIER Mata - 11/23/2023 10:36 AM EDT Order for MRI TMJ needed instead of MRI Face, per denial and MRI. [facility] History of Present illness Narrative* Carrington Fritz MD - 11/11/2023 2:15 PM EDT Subjective Patient ID: Raheem Cohn Jr. is a 48 y.o. male. 48 years old and comes in for introduction and for evaluation of an ongoing issue involving his right jaw and his ears. He has a history of substance abuse and has been sober for more than a year, having had a single two day relapse in the last 4 years. He has a history of dental issues and has hadall of his teeth extracted. Following that he had an episode where he felt his right jaw crack, like something gave way. Since then he has noted difficulty opening his mouth. When he swallows he hears a cracking noise up in his ears. Related to this [place] when he had a mental breakdown. He eventually had a psychiatric hospitalization. He has been on Seroquel at night. Hehas had ENT evaluations for his jaw and ear issues without a definitive diagnosis. He has pain in his right jaw and face area and has had numerous ER evaluations. He has not been seeking pain medication and has not been prescribed pain medication in the recent past. He notices irritation in his throat and upper chest and has been on doxycycline which seems to help that while he is on it. He is onLamisil for toenail fungus. The following portions of the patient's history were reviewed and updated as appropriate: allergies, current medications, past family history, past medical history, past social history, past surgicalhistory, and problem list. Review of Systems Constitutional: He does not describe fevers, sweats, or weight loss. HENT: He was treated with a course of what sounds like nystatin suspension for possible thrush but he hasirritation of his tongue and throat again. Genitourinary: Negative for difficulty urinating and dysuria. Objective Physical Exam Constitutional: Comments: He does not appear acutely ill. He interacts appropriately. Blood pressure normal. HENT: Head: Comments: He seems to have limited ability to fully open his mouth. I do not notice definite deformity with palpation over the right TMJ. Right Ear: Tympanic membrane and ear canal normal. Left Ear: Tympanic membrane and ear canal normal. Mouth/Throat: Comments: Upper and lower dentures. He appears to have a hairy tongue. I see no definite patches ofthrush. Eyes: General: No scleral icterus. Extraocular Movements: Extraocular movements intact. Pupils: Pupils are equal, round, and reactive to light. Cardiovascular: Rate and Rhythm: Normal rate and regular rhythm. Heart sounds: No murmur heard. Pulmonary: Effort: Pulmonary effort is normal. Breath sounds: Normal breath sounds. Lymphadenopathy: Cervical: No cervical adenopathy. Skin: Comments: Onychomycosis of his toenails Neurological: General: No focal deficit present. Assessment/Plan This is a bit difficult to sort out at the moment. He does seem to have some limited range of motion of his jaw and it has been recommended that he have MR imaging of his right TMJ and that will be obtained. Will do a course of clotrimazole for his thrush. He does not seem to have a respiratory infection. He is on Seroquel and has the history of prior hallucinations and mental breakdown. He denies those type of symptoms at the moment and attributes all of his concerns to the issue with his jaw.Further plans depend on the results of his MRI and his ongoing course. Mental health involvement inthe future might be beneficial while continuing the evaluation and management of his physical compla ints. Diagnoses and all orders for this visit: TMJ (temporomandibular joint disorder) Arthralgia of right temporomandibular joint - MR face without contrast; Future Thrush - clotrimazole (MYCELEX) 10 mg roxana; Dissolve 1 tablet (10 mg total) in the mouth 5 (five) times a day for 7 days. Onychomycosis of toenail documented in this encounterWilson [facility]08-[facility] Hospital Discharge instructions* Discharge Instructions* Summer Llamas MD - 10/28/2023 2:04 PM EDT You were seen see in the emergency department for pain in your jaw. You should follow up with the ENT doctors as they may be able to give you additional testing. Attend your appointment with dentistry today. Take Tylenol and ibuprofen as needed for pain at home. documented in this [id number] Physician Emergency department Note* Leo Rizo APRN-CNP - 10/28/2023 12:16 PM EDT Images from the original note were not included. EMERGENCY DEPARTMENT - START NOTE Brief Exam in START The patient was seen by me in intake and triage for a brief history and physical obtained for triage reasons only. My exam is intended to be an initial medical screening exam for disposition within our ED with limited initial orders placed, when appropriate, to expedite care by treating team. Briefly, Raheem Cohn is a 48 year old male presents to the ED for right jaw/ear pain after yawning x4 months Pt Denies: V/D/F, HARRELL, vision change, CP/SOB, or numbness/tingling. Home Treatment: gabapentin, muscle relaxer Plan The remainder of testing, treatment, and diagnostic plan will be assumed by the next clinician who will be seeing the patient as a primary patient, ordering further testing, creating a plan and impression, and determining final disposition of the patient from the ED. I had a limited role in this case. Medications and Interventions initiated in START: none The patient is appropriate for: RICHARD Garber [facility] Work Phone: [phone]) 465-268708-22-2024 Emergency department Note* Leo Rizo APRN- CNP - 10/28/2023 12:16 PM EDT Images from the original note were not included. EMERGENCY DEPARTMENT - START NOTE Brief Exam in START The patient was seen by me in intake and triage for a brief history and physical obtained for triage reasons only. My exam is intended to be an initial medical screening exam for disposition within our ED with limited initial orders placed, when appropriate, to expedite care by treating team. Briefly, Raheem Cohn is a 48 year old male presents to the ED for right jaw/ear pain after yawning x4 months Pt Denies: V/D/F, HARRELL, vision change, CP/SOB, or numbness/tingling. Home Treatment: gabapentin, muscle relaxer Plan The remainder of testing, treatment, and diagnostic plan will be assumed by the next clinician who will be seeing the patient as a primary patient, ordering further testing, creating a plan and impression, and determining final disposition of the patient from the ED. I had a limited role in this case. Medications and Interventions initiated in START: none The patient is appropriate for: RICHARD Garber documented in this [id number] Note* Addendum Note - Babs Cat DMD - 09/30/2023 9:01 AM EDTAddended by: BABS CAT on: 09/30/2023 09:01 AM Modules accepted: Orders [id number] Note* Addendum Note - Babs Cat DMD - 09/30/2023 9:01 AM EDTAddended by: BABS CAT on: 09/30/2023 09:01 AM Modules accepted: Orders [id number] Note* Addendum Note - Babs Cat DMD - 09/30/2023 9:01 AM EDTAddended by: BABS CAT on: 09/30/2023 09:01 AM Modules accepted: Orders [id number] Miscellaneous Notes* Addendum Note - Babs Cat DMD - 09/30/2023 9:01 AM EDTAddended by: BABS CAT on: 09/30/2023 09:01 AM Modules accepted: Orders documented in this [id number] Telephone encounter Note* Telephone Encounter - Marita Cox - 09/29/2023 12:33 PM EDT pt calling to let Dr. Bee know he has 1 tab of Tizanidine 4 mg left per visit notes on 09/24/23. will need new prescription sent to [facility] at [address] [place] [address] P: . Pleasecall pt at [phone] when prescription has been sent. pt was unsure if will be also prescribing something else as well or instead of Tizanidine 4 mg Messaged [facility] 1234pm 09/29/23 [id number] Miscellaneous Notes* Telephone Encounter - Marita Cox - 09/29/2023 12:33 PM EDT pt calling to let Dr. Bee know he has 1 tab of Tizanidine 4 mg left per visit notes on 09/24/23. will need new prescription sent to [facility] at [address] [place] [address] P: . Pleasecall pt at [phone] when prescription has been sent. pt was unsure if will be also prescribing something else as well or instead of Tizanidine 4 mg Messaged [facility] 1234pm 09/29/23 documented in this [id number] History of Present illness Narrative* Babs Cat DMD - 09/24/2023 12:00 AM EDT Chief complaint - Patient presented with chief complaint: jaw sometimes pops in the right side. Complains of pain in the roof of the mouth and right ear pain every time the patient swallows, with pain that radiates to the head . History of present illness: Location - Right ear, Right TMJ, and top of the head Appearance - Distress Chronology - Months Precipitating - Function Quality - Sharp Intensity - Duration - weeks months Frequency - Daily, several times during function Ameliorating - None reported Aggravating - Function Associated symptoms - Migraines Associated pains - Pain in the head (Possible Migraines) Meds - Current - for CC Meds - Past Meds - for CC Past Treatment - Imaging panoramic film: Taken and reviewed, CBCT: None Legal - No legal action in process Sleep duration: hours Sleep quality: No interruptions Social - Habits - PMH: Reviewed and reconciled with [employer]. Meds: Reviewed and reconciled with [employer]. Allergies: Reviewed and reconciled with [employer]. Family history: Reviewed and reconciled with [employer]. EXAM ROS: - CONSTITUTIONAL: Denies unintentional weight loss, fever and chills. - HEENT: Denies changes in vision and hearing. - RESPIRATORY: Denies SOB and cough. - CV: Denies palpitations and CP. - GI: Denies abdominal pain, nausea, vomiting and diarrhea. - : Denies dysuria and urinary frequency. - MSK: Denies myalgia and joint pain. - SKIN: Denies rash and pruritus. - NEUROLOGICAL: Denies headache and syncope. - PSYCHIATRIC: Denies recent changes in mood. PHYSICAL EXAM: GENERAL: Alert and oriented x 3. No acute distress. Well-nourished, well-developed. CONSTITUTIONAL: Height: 5'10 ft. weight: 180 lbs. neck size: in. Mallampati: Vitals - BP: 126/68 T: NA P: R: O2: VOICE: RESPIRATION: Breathing comfortably, no stridor. CARDIOVASCULAR: No clubbing/cyanosis/edema in hands. EYES: Extraocular movements intact, sclera normal, no scleral icterus, no lesions noted. NEURO: Detailed below. HEAD AND FACE: Symmetric facial features, no masses or lesions, sinuses nontender to palpation. SALIVARY GLANDS: Parotid and submandibular glands normal bilaterally. EARS: Normal external ears, external auditory canals, normal hearing to whispered voice. NOSE: External nose midline, anterior nasal cavity is normal with limited visualization to the anterior aspect of the interior turbinates. No lesions noted. ORAL CAVITY/OROPHARYNX/LIPS: Moist mucous membranes, no lesions noted. NECK/LYMPH NODES: No lymphadenopathy, no thyroid masses. Trachea palpably midline SKIN: Face and neck skin without scars, bruises, or injury PSYCH: Alert and oriented with appropriate mood and affect DETAILED EXAM: Cranial Nerves - II through XII grossly intact Detailed CN V: sensory: R: Normal L:Normal V1-V3 Motor: R: Normal L: Normal Two point discrimination: Not done Directionality: Not done Detailed CN VII: motor R: Normal L: Normal Balance/Equilibrium - Finger to nose normal response. Romberg: not performed Neck: Cervical - NO LAD IOE- tongue scalloping present, signs of Candidiasis cheek ridging minor , wear Occlusion: Not Applicable. Edentulous patient. Vertical dimension violated Angle class R canine R molar : Patient totally edentulous L canine L molar OB/OJ: Patient Midline: Coincident. Deviated to the mm Deviation/deflection - None ROM - DAVY: mm passive: mm active: mm R lateral: mm L lateral: mm protrusion: mm Joint palpation: R TMJ dorsal:4/5 lateral:3 intrauaricular: 0 L TMJ dorsal:0/5 lateral:0 intraauricular:0 Joint sounds - R TMJ: None L TMJ: None Loading(bite stick and provocation): R TMJ: ipsilateral pain: - contralateral pain:- L TMJ: ipsilateral pain: - contralateral pain:- Occlusion: stable and reproducible Myofascial Exam - Deep masseter: R:4 /5 L:3 Superficial masseter R:4 L:3 Anterior temp R:0 L:0 Medial/post temp R:4 L:0 Frontal R:0 L:0 Medial pterygoid R:5 L:0 Lateral pterygoid R:0 L:0 Digastric Ant R:0 L:0 Digastric post: R:0 L:0 Temp tendon R:0 L:0 Occipital R:0 L:0 Splenius R:0 L:0 Scalenes R:0 L:0 Trapezius R:0 L:0 Suprascapular R:0 L:0 SCM R:0 L:0 Stylohyoid R:0 L:0 Presence of trigger areas: None Presence of ANS signs: None Impression: G44.209 Tension-type headache, 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 The patient had the mandibular anterior teeth extracted 3 months ago. 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 There iscurrently severe upper jaw resorption and the lower teeth were extracted recently. Patient reportedthat his lower teeth were periodontally compromised. Currently, the patient is using the upper denture and an OTC mandibular appliance obtained from [employer]. The patient was told that once he receives his new dentures, the pain may improve, but his TMJ needs to be kept under observation. Patient will contact us once the current prescription of Tizanidine 4 mg is finished so we can refill the prescription. Patient is comfortable at discharge, all questions answered. Teaching Attending Note: I saw and evaluated the patient. I personally obtained the mendieta and critical portions of the historyand physical exam. I reviewed the resident's /fellow's documentation and discussed the patient withthe resident. I agree with the resident's medical decision making as documented in the resident's note. ----- Signed on Sunday, September 24, 2023 at 2:46:10 PM ----- ----- Provider: Joie Hi DMD -- Clinic: [facility] ----- documented in this [id number] Instructions Includes: Instructions for all patient encounters Education and Decision Aids were provided during visit for: Discussed nutritional needs teach healthy choices including fruits and vegetables Last Documented On 1:16PM ; [facility] Patient education about a pr oper diet Last Documented On 4 1:16PM ; [facility] Discussed concerns about exe rcise : promote physical activity Last Documented On 4 1:16PM ; [facility] Discussed nutritional needs teach healthy choices including fruits and vegetables Last Documented On 4 1:19PM ; [facility] Patient education about a pr oper diet Last Documented On 4 1:19PM ; [facility] Discussed concerns about exe rcise : promote physical activity Last Documented On 4 1:19PM ; [facility] Discussed nutritional needs teach healthy choices including fruits and vegetables Last Documented On 4 1:14PM ; [facility] Patient education about a pr oper diet Last Documented On 4 1:14PM ; [facility] Discussed concerns about exe rcise : promote physical activity Last Documented On 4 1:14PM ; [facility] Discussed nutritional needs teach healthy choices including fruits and vegetables Last Documented On 4 1:17PM ; [facility] Patient education about a pr oper diet Last Documented On 4 1:17PM ; [facility] Discussed concerns about exe rcise : promote physical activity Last Documented On 4 1:17PM ; [facility] Discussed concerns about uns afe sexual practices Last Documented On 4 1:29PM ; [facility] Discussed concerns about tob acco use Last Documented On 4 1:29PM ; [facility] Discussed concerns about alc ohol use Last Documented On 4 1:29PM ; [facility] Discussed concerns about ill icit drug use Last Documented On 4 1:29PM ; [facility] Patient has agreed to visits every 4 weeks Last Documented On 4 1:29PM ; [facility] Patient aware not to share n eedles, razors, toothbrushes, or nail clippers Last Documented On 4 1:29PM ; [facility] Counseled on medication and herbal product interactions Last Documented On 4 1:29PM ; [facility] Patient is treatment naive Last Documented On 4 1:29PM ; [facility] Patient has an estimated lif e expectancy of 12 months or greater. Last Documented On 4 1:29PM ; [facility] Patient counseled on how to take Hepatitis C Medications Last Documented On 4 1:29PM ; [facility] Patient agreed to labs (CBC, CMP, HCV) every 4 weeks Last Documented On 4 1:29PM ; [facility] Discussed nutritional needs teach healthy choices including fruits and vegetables Last Documented On 4 2:43PM ; [facility] Patient education about a pr oper diet Last Documented On 4 2:43PM ; [facility] Discussed concerns about exe rcise : promote physical activity Last Documented On 4 2:43PM ; [facility] *[facility] offered active and supp ortive listening, normalized emotions and feelings, and processed ~current stressors. ~*Reviewed relapse prevention skills and positive support activities Last Documented On 4 7:56PM ; [facility] Discussed nutritional needs teach healthy choices including fruits and vegetables Last Documented On 4 1:21PM ; [facility] Patient education about a pr oper diet Last Documented On 4 1:21PM ; [facility] Discussed concerns about exe rcise : promote physical activity Last Documented On 4 1:21PM ; [facility] Patient has agreed to visits every 4 weeks Last Documented On 4 1:59PM ; [facility] Patient aware not to share n eedles, razors, toothbrushes, or nail clippers Last Documented On 4 1:59PM ; [facility] Counseled on medication and herbal product interactions Last Documented On 4 1:59PM ; [facility] Patient is treatment naive Last Documented On 4 1:59PM ; [facility] Patient has an estimated lif e expectancy of 12 months or greater. Last Documented On 4 1:59PM ; [facility] Patient counseled on how to take Hepatitis C Medications Last Documented On 4 1:59PM ; [facility] Patient agreed to labs (CBC, CMP, HCV) every 4 weeks Last Documented On 4 1:59PM ; [facility] Work Phone: 1(343) 382-507706-19-2024 Instructions Includes: Instructions for all patient encounters Education and Decision Aids were provided during visit for: Discussed nutritional needs teach healthy choices including fruits and vegetables Last Documented On 4 1:16PM ; [facility] Patient education about a pr oper diet Last Documented On 4 1:16PM ; [facility] Discussed concerns about exe rcise : promote physical activity Last Documented On 4 1:16PM ; [facility] Discussed nutritional needs teach healthy choices including fruits and vegetables Last Documented On 4 1:19PM ; [facility] Patient education about a pr oper diet Last Documented On 4 1:19PM ; [facility] Discussed concerns about exe rcise : promote physical activity Last Documented On 4 1:19PM ; [facility] Discussed nutritional needs teach healthy choices including fruits and vegetables Last Documented On 4 1:14PM ; [facility] Patient education about a pr oper diet Last Documented On 4 1:14PM ; [facility] Discussed concerns about exe rcise : promote physical activity Last Documented On 4 1:14PM ; [facility] Discussed nutritional needs teach healthy choices including fruits and vegetables Last Documented On 4 1:17PM ; [facility] Patient education about a pr oper diet Last Documented On 4 1:17PM ; [facility] Discussed concerns about exe rcise : promote physical activity Last Documented On 4 1:17PM ; [facility] Discussed concerns about uns afe sexual practices Last Documented On 4 1:29PM ; [facility] Discussed concerns about tob acco use Last Documented On 4 1:29PM ; [facility] Discussed concerns about alc ohol use Last Documented On 4 1:29PM ; [facility] Discussed concerns about ill icit drug use Last Documented On 4 1:29PM ; [facility] Patient has agreed to visits every 4 weeks Last Documented On 4 1:29PM ; [facility] Patient aware not to share n eedles, razors, toothbrushes, or nail clippers Last Documented On 4 1:29PM ; [facility] Counseled on medication and herbal product interactions Last Documented On 4 1:29PM ; [facility] Patient is treatment naive Last Documented On 4 1:29PM ; [facility] Patient has an estimated lif e expectancy of 12 months or greater. Last Documented On 4 1:29PM ; [facility] Patient counseled on how to take Hepatitis C Medications Last Documented On 4 1:29PM ; [facility] Patient agreed to labs (CBC, CMP, HCV) every 4 weeks Last Documented On 4 1:29PM ; [facility] Discussed nutritional needs teach healthy choices including fruits and vegetables Last Documented On 4 2:43PM ; [facility] Patient education about a pr oper diet Last Documented On 4 2:43PM ; [facility] Discussed concerns about exe rcise : promote physical activity Last Documented On 4 2:43PM ; [facility] *[facility] offered active and supp ortive listening, normalized emotions and feelings, and processed ~current stressors. ~*Reviewed relapse prevention skills and positive support activities Last Documented On 4 7:56PM ; [facility] Discussed nutritional needs teach healthy choices including fruits and vegetables Last Documented On 4 1:21PM ; [facility] Patient education about a pr oper diet Last Documented On 4 1:21PM ; [facility] Discussed concerns about exe rcise : promote physical activity Last Documented On 4 1:21PM ; [facility] Patient has agreed to visits every 4 weeks Last Documented On 4 1:59PM ; [facility] Patient aware not to share n eedles, razors, toothbrushes, or nail clippers Last Documented On 4 1:59PM ; [facility] Counseled on medication and herbal product interactions Last Documented On 4 1:59PM ; [facility] Patient is treatment naive Last Documented On 4 1:59PM ; [facility] Patient has an estimated lif e expectancy of 12 months or greater. Last Documented On 4 1:59PM ; [facility] Patient counseled on how to take Hepatitis C Medications Last Documented On 4 1:59PM ; [facility] Patient agreed to labs (CBC, CMP, HCV) every 4 weeks Last Documented On 4 1:59PM ; [facility] Work Phone: [phone] Evaluation note Includes: Assessments for all patient encounters Findings Encounter Date [Z68.26 - Body mass index [B VT] 26.0-26.9, adult] assessment of body mass index Medical Established Patient with Colette Almaguer [facility] 08/25/2023 Last Documented On 4 2:01PM ; [facility] Assessment of BMI Percentile = 5% to < 85% for age Z68.52 Medical Established Patient with Colette Almaguer [facility] 08/25/2023 Last Documented On 4 2:01PM ; [facility] Nicotine dependence Medical Established Patient with Colette Yevgeniy [facility] 08/25/2023 Last Documented On 4 2:01PM ; [facility] Oral thrush Medical Established Patient with Colette Yevgeniy [facility] 08/25/2023 Last Documented On 4 2:01PM ; [facility] Otogenic otalgia of right ear Medical Es tablished Patient with Colette Yevgeniy [facility] 08/25/2023 Last Documented On 4 2:01PM ; [facility] 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 Medical Established Patient with Colette Yevgeniy [facility] 08/25/2023 Last Documented On 4 2:01PM ; [facility] Viral hepatitis C Medical Established Patient wi th Colette Almaguer [facility] 08/25/2023 Last Documented On 4 2:01PM ; [facility] Visit for: therapeutic drug monitoring Medical Established Patient with Colette Almaguer [facility] 08/25/2023 Last Documented On 4 2:01PM ; [facility] [Z68.26 - Body mass index [B VT] 26.0-26.9, adult] assessment of body mass index Medical Established Patient with Colette Almaguer [facility] 07/15/2023 Last Documented On 4 8:36AM ; [facility] Nicotine dependence Medical Established Patient with Colette Almaguer [facility] 07/15/2023 Last Documented On 4 8:36AM ; [facility] 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 Medical Established Patient with Colette Almaguer [facility] 07/15/2023 Last Documented On 4 8:36AM ; [facility] Viral hepatitis C Medical Established Patient wi th Colette Almaguer [facility] 07/15/2023 Last Documented On 4 8:36AM ; [facility] Viral hepatitis C Medical Established Patient wi th Colette Almaguer [facility] 07/15/2023 Last Documented On 4 8:36AM ; [facility] Visit for: screening for depression [facility] Established Patient with Colette Almaguer [facility] 07/15/2023 Last Documented On 4 8:36AM ; [facility] [Z68.25 - Body mass index [B VT] 25.0-25.9, adult] assessment of body mass index Medical Established Patient with Colette Almaguer [facility] 06/03/2023 Last Documented On 4 9:49AM ; [facility] Nicotine dependence Medical Established Patient with Colette Almaguer [facility] 06/03/2023 Last Documented On 4 9:49AM ; [facility] 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 Medical Established Patient with Colette Almaguer [facility] 06/03/2023 Last Documented On 4 9:49AM ; [facility] Viral hepatitis C Medical Established Patient wi th Colette Almaguer [facility] 06/03/2023 Last Documented On 4 9:49AM ; [facility] Visit for: screening for STD Medical Est ablished Patient with Colette Almaguer [facility] 06/03/2023 Last Documented On 4 9:49AM ; [facility] [Z68.24 - Body mass index [B VT] 24.0-24.9, adult] assessment of body mass index Medical Established Patient with Colette Almaguer [facility] 05/10/2023 Last Documented On 4 8:24AM ; [facility] Generalized anxiety disorder Medical Est ablished Patient with Colette Almaguer [facility] 05/10/2023 Last Documented On 4 8:24AM ; [facility] Nicotine dependence Medical Established Patient with Colette Yevgeniy [facility] 05/10/2023 Last Documented On 4 8:24AM ; [facility] Onychomycosis of the toenails Medical Es tablished Patient with Colette Almaguer [facility] 05/10/2023 Last Documented On 4 8:24AM ; [facility] Otogenic otalgia of right ear Medical Es tablished Patient with Colette Almaguer [facility] 05/10/2023 Last Documented On 4 8:24AM ; [facility] 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 Medical Established Patient with Colette Almaguer [facility] 05/10/2023 Last Documented On 4 8:24AM ; [facility] Viral hepatitis C Medical Established Patient wi th Colette Almaguer [facility] 05/10/2023 Last Documented On 4 8:24AM ; [facility] [Z68.24 - Body mass index [B VT] 24.0-24.9, adult] assessment of body mass index Open Access - Established with Colette Almaguer [facility] 04/26/2023 Last Documented On 4 8:20AM ; [facility] Nicotine dependence Open Access - Established wi th Colette Almaguer [facility] 04/26/2023 Last Documented On 4 8:20AM ; [facility] Otogenic otalgia of right ear Open Acces s - Established with Colette Almaguer [facility] 04/26/2023 Last Documented On 4 8:20AM ; [facility] 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 Open Access - Established with Colette Almaguer [facility] 04/26/2023 Last Documented On 4 8:20AM ; [facility] Generalized anxiety disorder Established [place] ent with Bri Barrow [facility] 04/12/2023 Last Documented On 4 7:57PM ; [facility] Nicotine dependence Established Patient with Bri Barrow [facility] 04/12/2023 Last Documented On 4 7:57PM ; [facility] [Z68.23 - Body mass index [B VT] 23.0-23.9, adult] assessment of body mass index Medical New Patient with Colette Almaguer [facility] 04/12/2023 Last Documented On 4 8:31AM ; [facility] Acute otitis media of left ear Medical N ew Patient with Colette Almaguer [facility] 04/12/2023 Last Documented On 4 8:31AM ; [facility] Diabetes Risk Test Score was three score 04/12/2023 Medical New Patient with Colette Almaguer [facility] 04/12/2023 Last Documented On 4 8:31AM ; [facility] Nicotine dependence Medical New Patient with Prosper Almaguer [facility] 04/12/2023 Last Documented On 4 8:31AM ; [facility] Screening for HIV Medical New Patient with Francois Almaguer [facility] 04/12/2023 Last Documented On 4 8:31AM ; [facility] Upper respiratory infection Medical New Patient with Colette Almaguer [facility] 04/12/2023 Last Documented On 4 8:31AM ; [facility] Visit for: screening for dig estive system disorders Medical New Patient with Colette Almaguer [facility] 04/12/2023 Last Documented On 4 8:31AM ; [facility] Work Phone: [phone] 314-343106-19-2024 Evaluation note Includes: Assessments for all patient encounters Findings Encounter Date [Z68.26 - Body mass index [B VT] 26.0-26.9, adult] assessment of body mass index Medical Established Patient with Colette Almaguer [facility] 08/25/2023 Last Documented On 4 8:38AM ; [facility] Assessment of BMI Percentile = 5% to < 85% for age Z68.52 Medical Established Patient with Colette Almaguer [facility] 08/25/2023 Last Documented On 4 8:38AM ; [facility] Nicotine dependence Medical Established Patient with Colettekeo Almaguer [facility] 08/25/2023 Last Documented On 4 8:38AM ; [facility] Oral thrush Medical Established Patient with Colette Almaguer [facility] 08/25/2023 Last Documented On 4 8:38AM ; [facility] Otogenic otalgia of right ear Medical Es tablished Patient with Colette Almaguer [facility] 08/25/2023 Last Documented On 4 8:38AM ; [facility] 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 Medical Established Patient with Colette Almaguer [facility] 08/25/2023 Last Documented On 4 8:38AM ; [facility] Viral hepatitis C Medical Established Patient wi th Colette Almaguer [facility] 08/25/2023 Last Documented On 4 8:38AM ; [facility] Visit for: therapeutic drug monitoring Medical Established Patient with Colette Almaguer [facility] 08/25/2023 Last Documented On 4 8:38AM ; [facility] [Z68.26 - Body mass index [B VT] 26.0-26.9, adult] assessment of body mass index Medical Established Patient with Colette Almaguer [facility] 07/15/2023 Last Documented On 4 8:36AM ; [facility] Nicotine dependence Medical Established Patient with Colette Almaguer [facility] 07/15/2023 Last Documented On 4 8:36AM ; [facility] 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 Medical Established Patient with Colette Almaguer [facility] 07/15/2023 Last Documented On 4 8:36AM ; [facility] Viral hepatitis C Medical Established Patient wi th Colette Almaguer [facility] 07/15/2023 Last Documented On 4 8:36AM ; [facility] Viral hepatitis C Medical Established Patient wi th Colette Almaguer [facility] 07/15/2023 Last Documented On 4 8:36AM ; [facility] Visit for: screening for depression [facility] susanne Established Patient with Colette Almaguer [facility] 07/15/2023 Last Documented On 4 8:36AM ; [facility] [Z68.25 - Body mass index [B VT] 25.0-25.9, adult] assessment of body mass index Medical Established Patient with Colette Almaguer [facility] 06/03/2023 Last Documented On 4 9:49AM ; [facility] Nicotine dependence Medical Established Patient with Colettekeo Almaguer [facility] 06/03/2023 Last Documented On 4 9:49AM ; [facility] 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 Medical Established Patient with Colette Almaguer [facility] 06/03/2023 Last Documented On 4 9:49AM ; [facility] Viral hepatitis C Medical Established Patient wi th Colette Almaguer [facility] 06/03/2023 Last Documented On 4 9:49AM ; [facility] Visit for: screening for STD Medical Est ablished Patient with Colette Almaguer [facility] 06/03/2023 Last Documented On 4 9:49AM ; [facility] [Z68.24 - Body mass index [B VT] 24.0-24.9, adult] assessment of body mass index Medical Established Patient with Colette Almaguer [facility] 05/10/2023 Last Documented On 4 8:24AM ; [facility] Generalized anxiety disorder Medical Est ablished Patient with Colette Almaguer [facility] 05/10/2023 Last Documented On 4 8:24AM ; [facility] Nicotine dependence Medical Established Patient with Colette Almaguer [facility] 05/10/2023 Last Documented On 4 8:24AM ; [facility] Onychomycosis of the toenails Medical Es tablished Patient with Colette Almaguer [facility] 05/10/2023 Last Documented On 4 8:24AM ; [facility] Otogenic otalgia of right ear Medical Es tablished Patient with Colette Almaguer [facility] 05/10/2023 Last Documented On 4 8:24AM ; [facility] 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 Medical Established Patient with Colette Almaguer [facility] 05/10/2023 Last Documented On 4 8:24AM ; [facility] Viral hepatitis C Medical Established Patient wi th Colette Almaguer [facility] 05/10/2023 Last Documented On 4 8:24AM ; [facility] [Z68.24 - Body mass index [B VT] 24.0-24.9, adult] assessment of body mass index Open Access - Established with Colette Yevgeniy [facility] 04/26/2023 Last Documented On 4 8:20AM ; [facility] Nicotine dependence Open Access - Established wi Colette Almaguer [facility] 04/26/2023 Last Documented On 4 8:20AM ; [facility] Otogenic otalgia of right ear Open Acces s - Established with Colette Almaguer [facility] 04/26/2023 Last Documented On 4 8:20AM ; [facility] 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 Open Access - Established with Colette Almaguer [facility] 04/26/2023 Last Documented On 4 8:20AM ; [facility] Generalized anxiety disorder Established [place] ent with Bri Barrow [facility] 04/12/2023 Last Documented On 4 7:57PM ; [facility] Nicotine dependence Established Patient with Brinatalie Barrow [facility] 04/12/2023 Last Documented On 4 7:57PM ; [facility] [Z68.23 - Body mass index [B VT] 23.0-23.9, adult] assessment of body mass index Medical New Patient with Colette Almaguer [facility] 04/12/2023 Last Documented On 4 8:31AM ; [facility] Acute otitis media of left ear Medical N ew Patient with Colette Yevgeniy [facility] 04/12/2023 Last Documented On 4 8:31AM ; [facility] Diabetes Risk Test Score was three score 04/12/2023 Medical New Patient with Colette Almaguer [facility] 04/12/2023 Last Documented On 4 8:31AM ; [facility] Nicotine dependence Medical New Patient with Prosper Almaguer [facility] 04/12/2023 Last Documented On 4 8:31AM ; [facility] Screening for HIV Medical New Patient with Francois Almaguer [facility] 04/12/2023 Last Documented On 4 8:31AM ; [facility] Upper respiratory infection Medical New Patient with Colette Almaguer [facility] 04/12/2023 Last Documented On 4 8:31AM ; [facility] Visit for: screening for dig estive system disorders Medical New Patient with Colette Almaguer [facility] 04/12/2023 Last Documented On 4 8:31AM ; [facility] Work Phone: [phone]) 516-760506-19-2024 Progress note* Progress note Date Encounter Last Documented by 08/25/2023 Chart Update Last documented on 08/30/2023; 8:37 AM, Colettekeo Almaguer CNP; [facility] Tests Blood Analysis: Blood Chemistry: No HEPATITIS C Viral Load 08/25/2023 Hep C - Not Detected. Practice Management Hepatitis C Treatment Started Epclusa. [facility]06-19-2024 Progress note* Progress note Date Encounter Last Documented by 08/25/2023 Medical Established Patient Last documented on 08/30/2023; 8:38 AM, Colette Yevgeniy BECKMAN; [facility] Active Problems & Conditions - F41.1 - Generalized Anxiety Disorder - B17.10 - Hepatitis, C Virus - F17.200 - Nicotine Dependence - H92.01 - Otalgia Otogenic Right Ear - M26.601 - Temporomandibular Joint-pain Dysfunction Syndrome Right Chief Complaint The Chief Complaint is: Patient here for 6 week Hep C f/u. States he did finish the Epclusa. Wanting put back on Gabapentin for restless legs. Reason For Visit Visit for: Hep C treatment. Referred Here Not referred by urgent care clinic and not the emergency room. No prior encounters. - Data to be reviewed: no clinical lab tests History of Present Illness - Allergy list reviewed - Reviewed Medications - Medication list reviewed Patient reports he has finished the Epclusa. Patient reports he is seeking a second opinion for ENT. He was not happy with ENT. Patient reports that he can hear cracking in his ears every time he swallows. Patient is still in process of getting dentures. Patient reports that he has an appointment with TMJ specialist. He was given Gabapentin by an ER doctor. Patient reports the gabapentin helped with the restless legs and the jaw. He is requesting prescription to be ongoing since it was helpful. Patient is also using the pennlac with no improvement Current Medication - Atomoxetine HCl 40 MG Oral Capsule Capsule, conventional Take 1 tablet by mouth once a day, 28 days, 0 refills - Epclusa 400-100 MG Oral Tablet TAKE 1 TABLET BY MOUTH ONCE DAILY, 28 days, 2 refills - Fluticasone Propionate 50 MCG/ACT Nasal Suspension 30 days, 0 refills - QUEtiapine Fumarate 100 MG Oral Tablet 30 days, 0 refills Past Medical/Surgical History Reported: No Safety Measures. Medical: No previous hospitalizations. Immunization History: Recent immunization for flu. Diagnoses: Viral hepatitis C Surgical: - Hand surgery Right Social History Environmental Exposure: No secondhand cigarette smoke exposure. Behavioral: Not a current tobacco user. Tobacco use: Not using electronic cigarettes/vaping. Alcohol: Not using alcohol. Drug Use: Not using drugs denied by patient. Sexual: Not sexually active. Sexual orientation Straight (not lesbian or strange) and gender identity Male. Allergies - Penicillin V Reaction: Hives / Urticaria, Skin Rashes / Eruption of skin Family History Maternal: Type 2 diabetes mellitus Review Of Systems Systemic: No systemic symptoms. Head: No headache. Otolaryngeal: No ear symptoms, no nasal symptoms, and no throat symptoms. Cardiovascular: No cardiovascular symptoms. Pulmonary: No pulmonary symptoms. Gastrointestinal: No gastrointestinal symptoms. Genitourinary: No genitourinary symptoms. Musculoskeletal: No musculoskeletal symptoms. Neurological: No dizziness. Psychological: No psychological symptoms. Skin: No skin symptoms. Physical Findings - Vitals taken 08/25/2023 01:11 pm BP-Sitting L118/79 mmHg Pulse Rate-Xkncxfh60 bpm Aqvvfn23 in Eaeicb462 lbs Body Mass Index26 kg/m2 Body Surface Area2 m2 Oxygen Ekdggeploh70 % Vital Signs: - Systolic blood pressure < 130 mmHg. - Diastolic Blood Pressure < 80 mmHg. General Appearance: - Awake. - Alert. - In no acute distress. Pharynx: Oropharynx: - Abnormal beef red area on the left side of the mouth. redness and irritation along the hard pallate. Lungs: - Respiration rhythm and depth was normal. - Clear to auscultation. Cardiovascular: Heart Rate And Rhythm: - Normal. Heart Sounds: - Normal. Abdomen: Auscultation: - Bowel sounds were normal. Musculoskeletal System: General/bilateral: - Normal movement of all extremities. Neurological: - Oriented to time, place, and person. Psychiatric: - Expression of emotions normal. Skin: - General appearance was abnormal left great toe nail is very thick and yellow with some black spots on the top of the nail and throughout the underside of the toe nail. Tests Urinalysis Was Performed: Urine color. Laboratory-based Chemistry: Drug Screen: Value Urine Temperature 92 Urine drug screen by multiple class procedure. THC Not Present, PCP Not Present, OXY Not Present, [id number] Not Present, MTD Not Present, MET Not Present, MDMA Not Present, MARCE Not Present, BZO Not Present, BUP Not Present, BAR Not Present, and AMP Not Present. Other Laboratory Tests: Screening for sexually transmitted infections was not performed. Assessment - Z51.81 - Encounter for therapeutic drug level monitoring - Z68.26 - Body mass index [BMI] 26.0-26.9, adult - Z68.52 - Body mass index [BMI] pediatric, 5th percentile to less than 85th percentile for age - H92.01 - Otalgia, right ear - M26.601 - Right temporomandibular joint disorder, unspecified - B17.10 - Acute hepatitis C without hepatic coma - F17.200 - Nicotine dependence, unspecified, uncomplicated - B37.0 - Candidal stomatitis Therapy - OARRS report was reviewed. Counseling/Education - Discussed nutritional needs teach healthy choices including fruits and vegetables - Patient education about a proper diet - Discussed concerns about exercise: promote physical activity Plan StartCited- Acute hepatitis C without hepatic coma Lab: CBC, Platelet, No Differential Lab: Comp. Metabolic Panel (14) Lab: HCV RT-PCR, Quant (Non-Graph) EndCited StartCited- Candidal stomatitis Nystatin 327355 UNIT/ML mL swish with 5mL of solution for as long as possible then swallow twice per day. Do not Eat or Drink anything for up to 30 minutes after use., 10 days, 0 refills EndCited StartCited- Other Daily Value Multivitamin tablet Take 1 tablet by mouth daily, 30 days, 11 refills Niacin 100 MG tablet Take 2 tablets by mouth daily, 30 days, 5 refills CoQ-10 150 MG capsule Take 1 capsule by mouth daily, 30 days, 5 refills EndCited StartCited- Right temporomandibular joint disorder, unspecified Gabapentin 100 MG capsule Take 1 capsule by mouth 3 times per day, 30 days, 2 refills EndCited Patient to Podiatry for the left great toe nail. Patient to keep all specialist appointments Will continue gabapentin. Will fill requested vitamins for the patient. Labs completed for Hep C follow up. Patient to follow up in 3 months. Care Team - Colette Almaguer CNP Health Reminders - Assess BMI satisfied 08/25/2023. - Assess Tobacco Use satisfied 08/25/2023. - Follow Up Plan BMI Management satisfied 08/25/2023. [facility]05-29-2024 History of Present illness Narrative* Fran-Sarahi Wilson, DO - 08/04/2023 1:15 PM EDT [facility] [address] [facility] [id number] SUBJECTIVE: Patient ID ([id number]): Raheem Cohn . is a 48 y.o. male presents today for Chief Complaint Patient presents with go over MRI HPI: Raheem is seen in follow up today for right otalgia. Patient was last seen on 07/14/2023. At previous visit, patient with complaint of right ear pain that has been present for year and a half after dental procedure. Hearing exam noted asymmetrical hearing loss at last visit. Patient is here to review MRI brain IAC's to rule any retrocochlear pathology. Patient reports that he will have ear pain that is prompted with cold air exposure. This was also reproducible upon going into the sauna, as patient felt a compressive feeling wrapping from one ear to the other when he was bent over in the sauna. Patient reports that he has been wearing his top denture following trauma when biting his mouth. Hereports that there has been an abnormal feeling on the top of his mouth extending up to his nose and back to his throat while wearing dentures. He is following with an oral surgeon and notes that he is getting new dentures as the current ones that he wears on a daily basis do not fit correctly. Patient notes that he has more oral pain when not wearing these. Patient quit smoking, however continues to vape. He expresses interest in quitting and would like nicotine patches. He goes through one [employer] bar pulse vape every two weeks which is 5% nicotine. HPI 07/14/2023: Raheem is seen as a new patient today for right otalgia. Patient reports that his ear pain began for a year and half after having a dental procedure. He reports crackling and popping in his right ear. He notes that he has increased hearing when he swallows, but he states this was resolved after having his bottom teeth were removed. He admits to trauma to the right side of the ear. 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 He reports that he used to smoke, and he quit 2 months ago. He does not drink alcohol. 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 Patient notes obstruction of the left side of the nose. He has had trauma to the left side of the nose in 1998. He has used Pseudofed, nasal sprays, and ibuprofen. HISTORY: History reviewed. No pertinent past medical history. Past Surgical History: Procedure Laterality Date HAND SURGERY TOOTH EXTRACTION WRIST SURGERY Family History Problem Relation Age of Onset Diabetes Maternal Grandmother Social History Socioeconomic History Marital status: Single Spouse name: Not on file Number of children: Not on file Years of education: Not on file Highest education level: Not on file Occupational History Not on file Tobacco Use Smoking status: Former Types: Cigarettes Smokeless tobacco: Former Vaping Use Vaping status: Every Day Substance and Sexual Activity Alcohol use: Not Currently Drug use: Not Currently Types: Methamphetamines Sexual activity: Not on file Other Topics Concern Not on file Social History Narrative Not on file Social Determinants of Health Financial Resource Strain: Not on file Food Insecurity: No Food Insecurity (09/01/2023) Hunger Screening Food Insecurity - Worry: Never True Food Insecurity - Inability: Never True Transportation Needs: Not on file Physical Activity: Not on file Stress: Not on file Social Connections: Not on file Interpersonal Safety: Not on file Housing Instability: Not on file Allergies Allergen Reactions Penicillins Anaphylaxis and Cough Anaphylaxis was listed per [facility]. Current Outpatient Medications Medication Sig Dispense Refill tea tree oiL 100 % oil Apply topically. turmeric-g.nci-cfzqmcnku-xqfgp [id number] mg capsule Take by mouth every morning. fluticasone propionate (FLONASE) 50 mcg/actuation nasal spray Administer 1 spray into each nostril in the morning. 16 g 0 gabapentin (NEURONTIN) 100 mg capsule Take 1 capsule (100 mg total) by mouth 3 (three) times a day. ibuprofen (MOTRIN) 800 mg tablet 1 tablet (800 mg total). No current facility-administered medications for this visit. REVIEW OF SYSTEMS: Review of Systems Constitutional: Negative for chills and fever. HENT: Positive for congestion, ear pain, mouth sores, sinus pressure and sinus pain. Negative for tinnitus and trouble swallowing. Eyes: Negative for pain and itching. Respiratory: Negative for cough, shortness of breath and wheezing. Cardiovascular: Negative for chest pain and palpitations. Gastrointestinal: Negative for nausea and vomiting. Endocrine: Negative for cold intolerance and heat intolerance. Genitourinary: Negative for difficulty urinating. Musculoskeletal: Negative for gait problem. Skin: Negative for color change. Allergic/Immunologic: Negative for environmental allergies and food allergies. Neurological: Negative for dizziness and headaches. Hematological: Does not bruise/bleed easily. Psychiatric/Behavioral: Negative for confusion. Data Reviewed: MRI Brain IAC's 07/24/2023 MRI brain and internal auditory canals: HISTORY: Left-sided sensorineural hearing loss. Multisequence multiplanar imaging of the brain was obtained to include intravenous administration of contrast and high-resolution images of the internal auditory canals. White matter signal characteristics unremarkable without evidence of chronic ischemia or demyelination. There is no susceptibility on gradient echo sequences. Flow voids are normal in caliber and contour. 7th and 8th cranial nervecomplexes appear unremarkable. There is no obvious abnormality the cochlea, vestibule, or semicircular canals. The diffusion- weighted images and corresponding ADC map show no focus of diffusion restriction or acute intracranial ischemia. Cerebellar tonsils are normal position. Contrast-enhanced imaging was obtained in 3 planes showing no focus of abnormal intra-axial or extra-axial enhancement. Dural sinuses enhance normally. No obvious abnormality the internal auditory canals or cerebellopontine angles. Flow voids are normal in caliber. Sinuses appear clear. IMPRESSION: Negative exam. Finalized by Mayo Greenberg MD on 07/24/2023 12:20 PM PHYSICAL EXAMINATION: Temp 36.8 C (98.2 F) (Temporal) Ht 177.8 cm (5' 10 ) Wt 86.2 kg (190 lb) BMI 27.26 kg/m Constitutional: Healthy, alert, cooperative, and in no distress and normal ablility to communicate . Voice normal quality. Head/Face: Normocephalic, without obvious abnormality, salivary glands normal, atraumatic, sinuses nontender, and facial nerve intact Eyes: No gross abnormalities., EOMI, no nystagmus, and no lid ptosis Ear: RIGHT: hearing normal, external ear normal, canal normal, and TM normal without fluid or infection LEFT: hearing normal, external ear normal, canal normal, and TM normal without fluid or infection Nose: External nose appears normal, normal mucosa, normal turbinates, no nasal polyps or masses, and deviated nasal septum to the left Oral: normal lips, normal gums, normal hard palate, normal anterior tongue, oral mucosa moist, edentulous, and patient removed dentures for exam, there is a erythematic line where ill-fitting dentures rub Oropharynx: normal-appearing mucosa, no pharyngitis, no exudate, tonsillar hypertrophy, 1+, normal soft palate and uvula, and tonsil stone on the left TMJ: Tenderness right and left Neck:normal, supple, no adenopathy, thyroid normal in size, no nodules or tenderness, no neck masses palpable, and carotids normal Respiration: No stridor, Normal respiratory effort. Heart: Regular rate Neurologic: Grossly normal Alert Oriented X 3 Affect normal Cranial nerves 2 -12 grossly intact ASSESSMENT/PLAN: Raheem was seen today for go over mri. Diagnoses and all orders for this visit: Otalgia, right Asymmetrical hearing loss Sensorineural hearing loss (SNHL) of left ear with unrestricted hearing of right ear Sensation of fullness in right ear DNS (deviated nasal septum) Nasal congestion Tonsil stone TMJ tenderness, bilateral Other tobacco product nicotine dependence, uncomplicated 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 - Discontinue: nicotine (NICODERM CQ) 21 mg/24 hr; Place 1 patch on the skin daily for 42 days. Former smoker Plan: - Discussed that patient is a candidate for left hearing aid due to his unilateral hearing loss. Herespectfully declined at this time, however will follow up if this worsens for repeat audiogram. - Patient completed MRI brain IAC's which does not show any retrocochlear pathology. We discussed the possible diagnosis for his asymmetric hearing loss. - Ear exam was normal bilaterally with no fluid or infection. Patient has history of teeth extraction and intermittent use of dentures. Aural fullness and otalgia is likely multifactorial with referred pain from dental and TMJ origin. - Patient is edentulous and following with an oral surgeon for new dentures. - Left tonsil stone was seen on exam. Discussed etiology of tonsil stones which are benign, as patient is asymptomatic, will continue with surveillance. - Will prescribe nicotine patches today for STEP 1 (21mg patch/day for weeks 1- 6), advised patient that this should be managed by his PCP and refills should be requested through them for STEPS 2-3. Nicoderm CQ Dosage information provided. - Follow up with ENT PRN for worsening of hearing or other otologic complaints. Scribe Statement: Scribed for and in the presence of Duran Wilson DO by Theresa Nolen (mike). Theresa Nolen 08/04/2023 1:17 PM Provider Statement: I Duran Wilson DO personally performed the services described in the documentation as described bythe above named scribe in my presence. It is both accurate and complete at the time of final signature. Dr. Duran Wilson 08/04/2023 9:21 AM Counseling: The following elements of medical decision making were considered during this visit: Reviewed/ordered new medications, Independently reviewed of images or pathology results, and History and physical.The patient was counseled regarding prognosis, risks and benefits of treatment options, impressions, importance of compliance with treatment and risk factor reductions. The patient verbalized understanding and agreement to the plan. Please note that parts of this chart were generated using voice recognition M*Modal dictation software. Although every effort was made to ensure the accuracy of this automated regional sales trainer, some errors in regional sales trainer may have occurred. Theresa Nolen 08/04/23 1334 documented in [facility] Instructions* Patient Instructions* Theresa Callum - 08/04/2023 1:15 PM EDT - Discussed that patient is a candidate for left hearing aid due to his unilateral hearing loss. Herespectfully declined at this time, however will follow up if this worsens for repeat audiogram. - Patient completed MRI brain IAC's which does not show any retrocochlear pathology. We discussed the possible diagnosis for his asymmetric hearing loss which includes occupational loud noise exposure. - Ear exam was normal bilaterally with no fluid or infection. Patient has history of teeth extraction and intermittent use of dentures. Aural fullness and otalgia is likely multifactorial with referred pain from dental and TMJ origin. - Patient is edentulous and following with an oral surgeon for new dentures. - Left tonsil stone was seen on exam. Discussed etiology of tonsil stones which are benign, as patient is asymptomatic, will continue with surveillance. - Will prescribe nicotine patches today for STEP 1 (21mg patch/day for weeks 1- 6), advised patient that this should be managed by his PCP and refills should be requested through them for STEPS 2-3. Nicoderm CQ Dosage information provided. - Follow up with ENT PRN for worsening of hearing. documented in this encounterWilson [facility]05-16-[facility] Progress note* Progress note Date Encounter Last Documented by 07/22/2023 Chart Update Last documented on 08/11/2023; 1:37 PM, Colette Almaguer CNP; [facility] Tests Blood Analysis: Blood Chemistry: No HEPATITIS C Viral Load 07/22/2023 Hep C - Not Detected. Practice Management Hepatitis C Treatment Started Epclus[facility]. [facility]05-09-2024 Instructions Includes: Instructions for all patient encounters Education and Decision Aids were provided during visit for: Discussed nutritional needs teach healthy choices including fruits and vegetables Last Documented On 4 1:19PM ; [facility] Patient education about a pr oper diet Last Documented On 4 1:19PM ; [facility] Discussed concerns about exe rcise : promote physical activity Last Documented On 4 1:19PM ; [facility] Discussed nutritional needs teach healthy choices including fruits and vegetables Last Documented On 4 1:14PM ; [facility] Patient education about a pr oper diet Last Documented On 4 1:14PM ; [facility] Discussed concerns about exe rcise : promote physical activity Last Documented On 4 1:14PM ; [facility] Discussed nutritional needs teach healthy choices including fruits and vegetables Last Documented On 4 1:17PM ; [facility] Patient education about a pr oper diet Last Documented On 4 1:17PM ; [facility] Discussed concerns about exe rcise : promote physical activity Last Documented On 4 1:17PM ; [facility] Discussed concerns about uns afe sexual practices Last Documented On 4 1:29PM ; [facility] Discussed concerns about tob acco use Last Documented On 4 1:29PM ; [facility] Discussed concerns about alc ohol use Last Documented On 4 1:29PM ; [facility] Discussed concerns about ill icit drug use Last Documented On 4 1:29PM ; [facility] Patient has agreed to visits every 4 weeks Last Documented On 4 1:29PM ; [facility] Patient aware not to share n eedles, razors, toothbrushes, or nail clippers Last Documented On 4 1:29PM ; [facility] Counseled on medication and herbal product interactions Last Documented On 4 1:29PM ; [facility] Patient is treatment naive Last Documented On 4 1:29PM ; [facility] Patient has an estimated lif e expectancy of 12 months or greater. Last Documented On 4 1:29PM ; [facility] Patient counseled on how to take Hepatitis C Medications Last Documented On 4 1:29PM ; [facility] Patient agreed to labs (CBC, CMP, HCV) every 4 weeks Last Documented On 4 1:29PM ; [facility] Discussed nutritional needs teach healthy choices including fruits and vegetables Last Documented On 4 2:43PM ; [facility] Patient education about a pr oper diet Last Documented On 4 2:43PM ; [facility] Discussed concerns about exe rcise : promote physical activity Last Documented On 4 2:43PM ; [facility] *[facility] offered active and supp ortive listening, normalized emotions and feelings, and processed ~current stressors. ~*Reviewed relapse prevention skills and positive support activities Last Documented On 4 7:56PM ; [facility] Discussed nutritional needs teach healthy choices including fruits and vegetables Last Documented On 4 1:21PM ; [facility] Patient education about a pr oper diet Last Documented On 4 1:21PM ; [facility] Discussed concerns about exe rcise : promote physical activity Last Documented On 4 1:21PM ; [facility] Patient has agreed to visits every 4 weeks Last Documented On 4 1:59PM ; [facility] Patient aware not to share n eedles, razors, toothbrushes, or nail clippers Last Documented On 4 1:59PM ; [facility] Counseled on medication and herbal product interactions Last Documented On 4 1:59PM ; [facility] Patient is treatment naive Last Documented On 4 1:59PM ; [facility] Patient has an estimated lif e expectancy of 12 months or greater. Last Documented On 4 1:59PM ; [facility] Patient counseled on how to take Hepatitis C Medications Last Documented On 4 1:59PM ; [facility] Patient agreed to labs (CBC, CMP, HCV) every 4 weeks Last Documented On 4 1:59PM ; [facility] Work Phone: [phone]) 515-707805-09-2024 Instructions Includes: Instructions for all patient encounters Education and Decision Aids were provided during visit for: Discussed nutritional needs teach healthy choices including fruits and vegetables Last Documented On 4 1:19PM ; [facility] Patient education about a pr oper diet Last Documented On 4 1:19PM ; [facility] Discussed concerns about exe rcise : promote physical activity Last Documented On 4 1:19PM ; [facility] Discussed nutritional needs teach healthy choices including fruits and vegetables Last Documented On 4 1:14PM ; [facility] Patient education about a pr oper diet Last Documented On 4 1:14PM ; [facility] Discussed concerns about exe rcise : promote physical activity Last Documented On 4 1:14PM ; [facility] Discussed nutritional needs teach healthy choices including fruits and vegetables Last Documented On 4 1:17PM ; [facility] Patient education about a pr oper diet Last Documented On 4 1:17PM ; [facility] Discussed concerns about exe rcise : promote physical activity Last Documented On 4 1:17PM ; [facility] Discussed concerns about uns afe sexual practices Last Documented On 4 1:29PM ; [facility] Discussed concerns about tob acco use Last Documented On 4 1:29PM ; [facility] Discussed concerns about alc ohol use Last Documented On 4 1:29PM ; [facility] Discussed concerns about ill icit drug use Last Documented On 4 1:29PM ; [facility] Patient has agreed to visits every 4 weeks Last Documented On 4 1:29PM ; [facility] Patient aware not to share n eedles, razors, toothbrushes, or nail clippers Last Documented On 4 1:29PM ; [facility] Counseled on medication and herbal product interactions Last Documented On 4 1:29PM ; [facility] Patient is treatment naive Last Documented On 4 1:29PM ; [facility] Patient has an estimated lif e expectancy of 12 months or greater. Last Documented On 4 1:29PM ; [facility] Patient counseled on how to take Hepatitis C Medications Last Documented On 4 1:29PM ; [facility] Patient agreed to labs (CBC, CMP, HCV) every 4 weeks Last Documented On 4 1:29PM ; [facility] Discussed nutritional needs teach healthy choices including fruits and vegetables Last Documented On 4 2:43PM ; [facility] Patient education about a pr oper diet Last Documented On 4 2:43PM ; [facility] Discussed concerns about exe rcise : promote physical activity Last Documented On 4 2:43PM ; [facility] *[facility] offered active and supp ortive listening, normalized emotions and feelings, and processed ~current stressors. ~*Reviewed relapse prevention skills and positive support activities Last Documented On 4 7:56PM ; [facility] Discussed nutritional needs teach healthy choices including fruits and vegetables Last Documented On 4 1:21PM ; [facility] Patient education about a pr oper diet Last Documented On 4 1:21PM ; [facility] Discussed concerns about exe rcise : promote physical activity Last Documented On 4 1:21PM ; [facility] Patient has agreed to visits every 4 weeks Last Documented On 4 1:59PM ; [facility] Patient aware not to share n eedles, razors, toothbrushes, or nail clippers Last Documented On 4 1:59PM ; [facility] Counseled on medication and herbal product interactions Last Documented On 4 1:59PM ; [facility] Patient is treatment naive Last Documented On 4 1:59PM ; [facility] Patient has an estimated lif e expectancy of 12 months or greater. Last Documented On 4 1:59PM ; [facility] Patient counseled on how to take Hepatitis C Medications Last Documented On 4 1:59PM ; [facility] Patient agreed to labs (CBC, CMP, HCV) every 4 weeks Last Documented On 4 1:59PM ; [facility] Work Phone: 1(180) 474-357905-09-2024 Evaluation note Includes: Assessments for all patient encounters Findings Encounter Date [Z68.26 - Body mass index [B VT] 26.0-26.9, adult] assessment of body mass index Medical Established Patient with Colette Almaguer [facility] 07/15/2023 Last Documented On 4 8:36AM ; [facility] Nicotine dependence Medical Established Patient with Colette Yevgeniy [facility] 07/15/2023 Last Documented On 4 8:36AM ; [facility] 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 Medical Established Patient with Colette Almaguer [facility] 07/15/2023 Last Documented On 4 8:36AM ; [facility] Viral hepatitis C Medical Established Patient wi th Colette Almaguer [facility] 07/15/2023 Last Documented On 4 8:36AM ; [facility] Viral hepatitis C Medical Established Patient wi Colette Almaguer [facility] 07/15/2023 Last Documented On 4 8:36AM ; [facility] Visit for: screening for depression [facility] Established Patient with Colette Almaguer [facility] 07/15/2023 Last Documented On 4 8:36AM ; [facility] [Z68.25 - Body mass index [B VT] 25.0-25.9, adult] assessment of body mass index Medical Established Patient with Colette Almaguer [facility] 06/03/2023 Last Documented On 4 9:49AM ; [facility] Nicotine dependence Medical Established Patient with Colette Yevgeniy [facility] 06/03/2023 Last Documented On 4 9:49AM ; [facility] 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 Medical Established Patient with Colette Yevgeniy [facility] 06/03/2023 Last Documented On 4 9:49AM ; [facility] Viral hepatitis C Medical Established Patient wi th Colette Almaguer [facility] 06/03/2023 Last Documented On 4 9:49AM ; [facility] Visit for: screening for STD Medical Est ablished Patient with Colette Almaguer [facility] 06/03/2023 Last Documented On 4 9:49AM ; [facility] [Z68.24 - Body mass index [B VT] 24.0-24.9, adult] assessment of body mass index Medical Established Patient with Colette Almaguer [facility] 05/10/2023 Last Documented On 4 8:24AM ; [facility] Generalized anxiety disorder Medical Est ablished Patient with Colette Almaguer [facility] 05/10/2023 Last Documented On 4 8:24AM ; [facility] Nicotine dependence Medical Established Patient with Colette Yevgeniy [facility] 05/10/2023 Last Documented On 4 8:24AM ; [facility] Onychomycosis of the toenails Medical Es tablished Patient with Colette Almaguer [facility] 05/10/2023 Last Documented On 4 8:24AM ; [facility] Otogenic otalgia of right ear Medical Es tablished Patient with Colette Almaguer [facility] 05/10/2023 Last Documented On 4 8:24AM ; [facility] 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 Medical Established Patient with Colette Almaguer [facility] 05/10/2023 Last Documented On 4 8:24AM ; [facility] Viral hepatitis C Medical Established Patient wi th Colette Almaguer [facility] 05/10/2023 Last Documented On 4 8:24AM ; [facility] [Z68.24 - Body mass index [B VT] 24.0-24.9, adult] assessment of body mass index Open Access - Established with Colette Almaguer [facility] 04/26/2023 Last Documented On 4 8:20AM ; [facility] Nicotine dependence Open Access - Established wi Colette Almaguer [facility] 04/26/2023 Last Documented On 4 8:20AM ; [facility] Otogenic otalgia of right ear Open Acces s - Established with Colette Almaguer [facility] 04/26/2023 Last Documented On 4 8:20AM ; [facility] 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 Open Access - Established with Colette Almaguer [facility] 04/26/2023 Last Documented On 4 8:20AM ; [facility] Generalized anxiety disorder BH Established Victoria ent with Bri Barrow [facility] 04/12/2023 Last Documented On 4 7:57PM ; [facility] Nicotine dependence Established Patient with Bri Barrow [facility] 04/12/2023 Last Documented On 4 7:57PM ; [facility] [Z68.23 - Body mass index [B VT] 23.0-23.9, adult] assessment of body mass index Medical New Patient with Colette Almaguer [facility] 04/12/2023 Last Documented On 4 8:31AM ; [facility] Acute otitis media of left ear Medical N ew Patient with Colette Almaguer [facility] 04/12/2023 Last Documented On 4 8:31AM ; [facility] Diabetes Risk Test Score was three score 04/12/2023 Medical New Patient with Colette Almaguer [facility] 04/12/2023 Last Documented On 4 8:31AM ; [facility] Nicotine dependence Medical New Patient with Prosper Almaguer [facility] 04/12/2023 Last Documented On 4 8:31AM ; [facility] Screening for HIV Medical New Patient with Francois Almaguer [facility] 04/12/2023 Last Documented On 4 8:31AM ; [facility] Upper respiratory infection Medical New Patient with Colette Almaguer [facility] 04/12/2023 Last Documented On 4 8:31AM ; [facility] Visit for: screening for dig estive system disorders Medical New Patient with Colette Almaguer [facility] 04/12/2023 Last Documented On 4 8:31AM ; [facility] Work Phone: [phone]) 637-534805-09-2024 Evaluation note Includes: Assessments for all patient encounters Findings Encounter Date [Z68.26 - Body mass index [B VT] 26.0-26.9, adult] assessment of body mass index Medical Established Patient with Colette Almaguer [facility] 07/15/2023 Last Documented On 4 8:36AM ; [facility] Nicotine dependence Medical Established Patient with Colette Almaguer [facility] 07/15/2023 Last Documented On 4 8:36AM ; [facility] 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 Medical Established Patient with Colette Almaguer [facility] 07/15/2023 Last Documented On 4 8:36AM ; [facility] Viral hepatitis C Medical Established Patient wi th Colette Almaguer [facility] 07/15/2023 Last Documented On 4 8:36AM ; [facility] Viral hepatitis C Medical Established Patient wi th Colette Almaguer [facility] 07/15/2023 Last Documented On 4 8:36AM ; [facility] Visit for: screening for depression [facility] Established Patient with Colette Almaguer [facility] 07/15/2023 Last Documented On 4 8:36AM ; [facility] [Z68.25 - Body mass index [B VT] 25.0-25.9, adult] assessment of body mass index Medical Established Patient with Colette Almaguer [facility] 06/03/2023 Last Documented On 4 9:49AM ; [facility] Nicotine dependence Medical Established Patient with Colette Almaguer [facility] 06/03/2023 Last Documented On 4 9:49AM ; [facility] 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 Medical Established Patient with Colette Almaguer [facility] 06/03/2023 Last Documented On 4 9:49AM ; [facility] Viral hepatitis C Medical Established Patient wi th Colette Almaguer [facility] 06/03/2023 Last Documented On 4 9:49AM ; [facility] Visit for: screening for STD Medical Est ablished Patient with Colette Almaguer [facility] 06/03/2023 Last Documented On 4 9:49AM ; [facility] [Z68.24 - Body mass index [B VT] 24.0-24.9, adult] assessment of body mass index Medical Established Patient with Colette Yevgeniy [facility] 05/10/2023 Last Documented On 4 8:24AM ; [facility] Generalized anxiety disorder Medical Est ablished Patient with Colette Almaguer [facility] 05/10/2023 Last Documented On 4 8:24AM ; [facility] Nicotine dependence Medical Established Patient with Colette Almaguer [facility] 05/10/2023 Last Documented On 4 8:24AM ; [facility] Onychomycosis of the toenails Medical Es tablished Patient with Colette Almaguer [facility] 05/10/2023 Last Documented On 4 8:24AM ; [facility] Otogenic otalgia of right ear Medical Es tablished Patient with Colette Almaguer [facility] 05/10/2023 Last Documented On 4 8:24AM ; [facility] 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 Medical Established Patient with Colette Almaguer [facility] 05/10/2023 Last Documented On 4 8:24AM ; [facility] Viral hepatitis C Medical Established Patient wi th Colette Almaguer [facility] 05/10/2023 Last Documented On 4 8:24AM ; [facility] [Z68.24 - Body mass index [B VT] 24.0-24.9, adult] assessment of body mass index Open Access - Established with Colette Almaguer [facility] 04/26/2023 Last Documented On 4 8:20AM ; [facility] Nicotine dependence Open Access - Established wi Colette Almaguer [facility] 04/26/2023 Last Documented On 4 8:20AM ; [facility] Otogenic otalgia of right ear Open Acces s - Established with Colette Almaguer [facility] 04/26/2023 Last Documented On 4 8:20AM ; [facility] 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 Open Access - Established with Colette Almaguer [facility] 04/26/2023 Last Documented On 4 8:20AM ; [facility] Generalized anxiety disorder BH Established [place] ent with Bri Barrow [facility] 04/12/2023 Last Documented On 4 7:57PM ; [facility] Nicotine dependence Established Patient with Bri Barrow [facility] 04/12/2023 Last Documented On 4 7:57PM ; [facility] [Z68.23 - Body mass index [B VT] 23.0-23.9, adult] assessment of body mass index Medical New Patient with Colette Almaguer [facility] 04/12/2023 Last Documented On 4 8:31AM ; [facility] Acute otitis media of left ear Medical N ew Patient with Colette Almaguer [facility] 04/12/2023 Last Documented On 4 8:31AM ; [facility] Diabetes Risk Test Score was three score 04/12/2023 Medical New Patient with Colette Almaguer [facility] 04/12/2023 Last Documented On 4 8:31AM ; [facility] Nicotine dependence Medical New Patient with Prosper Almaguer [facility] 04/12/2023 Last Documented On 4 8:31AM ; [facility] Screening for HIV Medical New Patient with Francois Almaguer [facility] 04/12/2023 Last Documented On 4 8:31AM ; [facility] Upper respiratory infection Medical New Patient with Colette Almaguer [facility] 04/12/2023 Last Documented On 4 8:31AM ; [facility] Visit for: screening for dig estive system disorders Medical New Patient with Colette Almaguer [facility] 04/12/2023 Last Documented On 4 8:31AM ; [facility] Work Phone: [phone]) 113-805105-09-2024 History general Narrative - Reported Includes: Medical History in patient's chart Description Last Updated No previous hospitalizations 07/15/2023 Last Documented On 4 8:36AM ; [facility] No Safety Measures 04/12/2023 Last Documented On 4 7:57PM ; [facility] History of viral hepatitis C 04/12/2023 Last Documented On 4 8:31AM ; [facility] Recent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 [facility] Patient education about a pr oper diet Last Documented On 4 1:17PM ; [facility] Discussed concerns about exe rcise : promote physical activity Last Documented On 4 1:17PM ; [facility] Discussed concerns about uns afe sexual practices Last Documented On 4 1:29PM ; [facility] Discussed concerns about tob acco use Last Documented On 4 1:29PM ; [facility] Discussed concerns about alc ohol use Last Documented On 4 1:29PM ; [facility] Discussed concerns about ill icit drug use Last Documented On 4 1:29PM ; [facility] Patient has agreed to visits every 4 weeks Last Documented On 4 1:29PM ; [facility] Patient aware not to share n eedles, razors, toothbrushes, or nail clippers Last Documented On 4 1:29PM ; [facility] Counseled on medication and herbal product interactions Last Documented On 4 1:29PM ; [facility] Patient is treatment naive Last Documented On 4 1:29PM ; [facility] Patient has an estimated lif e expectancy of 12 months or greater. Last Documented On 4 1:29PM ; [facility] Patient counseled on how to take Hepatitis C Medications Last Documented On 4 1:29PM ; [facility] Patient agreed to labs (CBC, CMP, HCV) every 4 weeks Last Documented On 4 1:29PM ; [facility] Discussed nutritional needs teach healthy choices including fruits and vegetables Last Documented On 4 2:43PM ; [facility] Patient education about a pr oper diet Last Documented On 4 2:43PM ; [facility] Discussed concerns about exe rcise : promote physical activity Last Documented On 4 2:43PM ; [facility] *[facility] offered active and supp ortive listening, normalized emotions and feelings, and processed ~current stressors. ~*Reviewed relapse prevention skills and positive support activities Last Documented On 4 7:56PM ; [facility] Discussed nutritional needs teach healthy choices including fruits and vegetables Last Documented On 4 1:21PM ; [facility] Patient education about a pr oper diet Last Documented On 4 1:21PM ; [facility] Discussed concerns about exe rcise : promote physical activity Last Documented On 4 1:21PM ; [facility] Patient has agreed to visits every 4 weeks Last Documented On 4 1:59PM ; [facility] Patient aware not to share n eedles, razors, toothbrushes, or nail clippers Last Documented On 4 1:59PM ; [facility] Counseled on medication and herbal product interactions Last Documented On 4 1:59PM ; [facility] Patient is treatment naive Last Documented On 4 1:59PM ; [facility] Patient has an estimated lif e expectancy of 12 months or greater. Last Documented On 4 1:59PM ; [facility] Patient counseled on how to take Hepatitis C Medications Last Documented On 4 1:59PM ; [facility] Patient agreed to labs (CBC, CMP, HCV) every 4 weeks Last Documented On 4 1:59PM ; [facility] Work Phone: 1(648) 435-826003-28-2024 Instructions Includes: Instructions for all patient encounters Education and Decision Aids were provided during visit for: Discussed nutritional needs teach healthy choices including fruits and vegetables Last Documented On 4 1:14PM ; [facility] Patient education about a pr oper diet Last Documented On 4 1:14PM ; [facility] Discussed concerns about exe rcise : promote physical activity Last Documented On 4 1:14PM ; [facility] Discussed nutritional needs teach healthy choices including fruits and vegetables Last Documented On 4 1:17PM ; [facility] Patient education about a pr oper diet Last Documented On 4 1:17PM ; [facility] Discussed concerns about exe rcise : promote physical activity Last Documented On 4 1:17PM ; [facility] Discussed concerns about uns afe sexual practices Last Documented On 4 1:29PM ; [facility] Discussed concerns about tob acco use Last Documented On 4 1:29PM ; [facility] Discussed concerns about alc ohol use Last Documented On 4 1:29PM ; [facility] Discussed concerns about ill icit drug use Last Documented On 4 1:29PM ; [facility] Patient has agreed to visits every 4 weeks Last Documented On 4 1:29PM ; [facility] Patient aware not to share n eedles, razors, toothbrushes, or nail clippers Last Documented On 4 1:29PM ; [facility] Counseled on medication and herbal product interactions Last Documented On 4 1:29PM ; [facility] Patient is treatment naive Last Documented On 4 1:29PM ; [facility] Patient has an estimated lif e expectancy of 12 months or greater. Last Documented On 4 1:29PM ; [facility] Patient counseled on how to take Hepatitis C Medications Last Documented On 4 1:29PM ; [facility] Patient agreed to labs (CBC, CMP, HCV) every 4 weeks Last Documented On 4 1:29PM ; [facility] Discussed nutritional needs teach healthy choices including fruits and vegetables Last Documented On 4 2:43PM ; [facility] Patient education about a pr oper diet Last Documented On 4 2:43PM ; [facility] Discussed concerns about exe rcise : promote physical activity Last Documented On 4 2:43PM ; [facility] *[facility] offered active and supp ortive listening, normalized emotions and feelings, and processed ~current stressors. ~*Reviewed relapse prevention skills and positive support activities Last Documented On 4 7:56PM ; [facility] Discussed nutritional needs teach healthy choices including fruits and vegetables Last Documented On 4 1:21PM ; [facility] Patient education about a pr oper diet Last Documented On 4 1:21PM ; [facility] Discussed concerns about exe rcise : promote physical activity Last Documented On 4 1:21PM ; [facility] Patient has agreed to visits every 4 weeks Last Documented On 4 1:59PM ; [facility] Patient aware not to share n eedles, razors, toothbrushes, or nail clippers Last Documented On 4 1:59PM ; [facility] Counseled on medication and herbal product interactions Last Documented On 4 1:59PM ; [facility] Patient is treatment naive Last Documented On 4 1:59PM ; [facility] Patient has an estimated lif e expectancy of 12 months or greater. Last Documented On 4 1:59PM ; [facility] Patient counseled on how to take Hepatitis C Medications Last Documented On 4 1:59PM ; [facility] Patient agreed to labs (CBC, CMP, HCV) every 4 weeks Last Documented On 4 1:59PM ; [facility] Work Phone: [phone]) 759-250703-28-2024 Evaluation note Includes: Assessments for all patient encounters Findings Encounter Date [Z68.25 - Body mass index [B VT] 25.0-25.9, adult] assessment of body mass index Medical Established Patient with Colette Almaguer [facility] 06/03/2023 Last Documented On 4 9:49AM ; [facility] Nicotine dependence Medical Established Patient with Colette Almaguer [facility] 06/03/2023 Last Documented On 4 9:49AM ; [facility] 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 Medical Established Patient with Colette Almaguer [facility] 06/03/2023 Last Documented On 4 9:49AM ; [facility] Viral hepatitis C Medical Established Patient wi th Colette Almaguer [facility] 06/03/2023 Last Documented On 4 9:49AM ; [facility] Visit for: screening for STD Medical Est ablished Patient with Colette Almaguer [facility] 06/03/2023 Last Documented On 4 9:49AM ; [facility] [Z68.24 - Body mass index [B VT] 24.0-24.9, adult] assessment of body mass index Medical Established Patient with Colette Almaguer [facility] 05/10/2023 Last Documented On 4 8:24AM ; [facility] Generalized anxiety disorder Medical Est ablished Patient with Colette Almaguer [facility] 05/10/2023 Last Documented On 4 8:24AM ; [facility] Nicotine dependence Medical Established Patient with Colette Almaguer [facility] 05/10/2023 Last Documented On 4 8:24AM ; [facility] Onychomycosis of the toenails Medical Es tablished Patient with Colette Almaguer [facility] 05/10/2023 Last Documented On 4 8:24AM ; [facility] Otogenic otalgia of right ear Medical Es tablished Patient with Colette Almaguer [facility] 05/10/2023 Last Documented On 4 8:24AM ; [facility] 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 Medical Established Patient with Colette Almaguer [facility] 05/10/2023 Last Documented On 4 8:24AM ; [facility] Viral hepatitis C Medical Established Patient wi th Colette Almaguer [facility] 05/10/2023 Last Documented On 4 8:24AM ; [facility] [Z68.24 - Body mass index [B VT] 24.0-24.9, adult] assessment of body mass index Open Access - Established with Colette Almaguer [facility] 04/26/2023 Last Documented On 4 8:20AM ; [facility] Nicotine dependence Open Access - Established wi Colette Almaguer [facility] 04/26/2023 Last Documented On 4 8:20AM ; [facility] Otogenic otalgia of right ear Open Acces s - Established with Colette Almaguer [facility] 04/26/2023 Last Documented On 4 8:20AM ; [facility] 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 Open Access - Established with Colette Almaguer [facility] 04/26/2023 Last Documented On 4 8:20AM ; [facility] Generalized anxiety disorder BH Established [place] ent with Bri Barrow [facility] 04/12/2023 Last Documented On 4 7:57PM ; [facility] Nicotine dependence BH Established Patient with Bri Barrow [facility] 04/12/2023 Last Documented On 4 7:57PM ; [facility] [Z68.23 - Body mass index [B VT] 23.0-23.9, adult] assessment of body mass index Medical New Patient with Co[facility] 04/12/2023 Last Documented On 4 8:31AM ; [facility] Acute otitis media of left ear Medical N ew Patient with Co[facility] 04/12/2023 Last Documented On 4 8:31AM ; [facility] Diabetes Risk Test Score was three score 04/12/2023 Medical New Patient with Colette [facility] 04/12/2023 Last Documented On 4 8:31AM ; [facility] Nicotine dependence Medical New Patient with Prosper [facility] 04/12/2023 Last Documented On 4 8:31AM ; [facility] Screening for HIV Medical New Patient with Francois [facility] 04/12/2023 Last Documented On 4 8:31AM ; [facility] Upper respiratory infection Medical New Patient with Colette Almaguer [facility] 04/12/2023 Last Documented On 4 8:31AM ; [facility] Visit for: screening for dig estive system disorders Medical New Patient with Colette Almaguer [facility] 04/12/2023 Last Documented On 4 8:31AM ; [facility] Work Phone: 1([phone]) 686-678103-28-2024 Evaluation note Includes: Assessments for all patient encounters Findings Encounter Date [Z68.25 - Body mass index [B VT] 25.0-25.9, adult] assessment of body mass index Medical Established Patient with Colette Almaguer [facility] 06/03/2023 Last Documented On 4 9:49AM ; [facility] Nicotine dependence Medical Established Patient with Colette Almaguer [facility] 06/03/2023 Last Documented On 4 9:49AM ; [facility] 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 Medical Established Patient with Co[facility] 06/03/2023 Last Documented On 4 9:49AM ; [facility] Viral hepatitis C Medical Established Patient wi th Colette Almaguer [facility] 06/03/2023 Last Documented On 4 9:49AM ; [facility] Visit for: screening for STD Medical Est ablished Patient with Colette [facility] 06/03/2023 Last Documented On 4 9:49AM ; [facility] [Z68.24 - Body mass index [B VT] 24.0-24.9, adult] assessment of body mass index Medical Established Patient with Colette [facility] 05/10/2023 Last Documented On 4 8:24AM ; [facility] Generalized anxiety disorder Medical Est ablished Patient with Colette [facility] 05/10/2023 Last Documented On 4 8:24AM ; [facility] Nicotine dependence Medical Established Patient with Colette [facility]evgen[facility] 05/10/2023 Last Documented On 4 8:24AM ; [facility] Onychomycosis of the toenails Medical Es tablished Patient with Colette [facility]evgen[facility] 05/10/2023 Last Documented On 4 8:24AM ; [facility] Otogenic otalgia of right ear Medical Es tablished Patient with Colette [facility]evgeniy [facility] 05/10/2023 Last Documented On 4 8:24AM ; [facility] 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 Medical Established Patient with Colette [facility]mag[facility] 05/10/2023 Last Documented On 4 8:24AM ; [facility] Viral hepatitis C Medical Established Patient wi th Colette [facility]mag[facility] 05/10/2023 Last Documented On 4 8:24AM ; [facility] [Z68.24 - Body mass index [B VT] 24.0-24.9, adult] assessment of body mass index Open Access - Established with Co[facility] 04/26/2023 Last Documented On 4 8:20AM ; [facility] Nicotine dependence Open Access - Established wi th Colette Yevgeniy [facility] 04/26/2023 Last Documented On 4 8:20AM ; [facility] Otogenic otalgia of right ear Open Acces s - Established with Colette Yevgeniy [facility] 04/26/2023 Last Documented On 4 8:20AM ; [facility] 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 Open Access - Established with Colette Yevgeniy [facility] 04/26/2023 Last Documented On 4 8:20AM ; [facility] Generalized anxiety disorder BH Established [place] ent with Bri WARE 04/12/2023 Last Documented On 4 7:57PM ; [facility] Nicotine dependence BH Established Patient with Bri Barrow [facility] 04/12/2023 Last Documented On 4 7:57PM ; [facility] [Z68.23 - Body mass index [B VT] 23.0-23.9, adult] assessment of body mass index Medical New Patient with Colette [facility] 04/12/2023 Last Documented On 4 8:31AM ; [facility] Acute otitis media of left ear Medical N ew Patient with Colette [facility]mag[facility] 04/12/2023 Last Documented On 4 8:31AM ; [facility] Diabetes Risk Test Score was three score 04/12/2023 Medical New Patient with Colette [facility]mag[facility] 04/12/2023 Last Documented On 4 8:31AM ; [facility] Nicotine dependence Medical New Patient with Prosper Almag[facility] 04/12/2023 Last Documented On 4 8:31AM ; [facility] Screening for HIV Medical New Patient with Francois [facility] 04/12/2023 Last Documented On 4 8:31AM ; [facility] Upper respiratory infection Medical New Patient with Colette [facility]mag[facility] 04/12/2023 Last Documented On 4 8:31AM ; [facility] Visit for: screening for dig estive system disorders Medical New Patient with Colette [facility]mag[facility] 04/12/2023 Last Documented On 4 8:31AM ; [facility] Work Phone: [phone]) 641-681703-28-2024 Progress note* Progress note Date Encounter Last Documented by 06/03/2023 Medical Established Patient Last documented on 06/07/2023; 9:49 AM, [facility]; [facility] Active Problems & Conditions - F41.1 - Generalized Anxiety Disorder - B17.10 - Hepatitis, C Virus - F17.200 - Nicotine Dependence - H92.01 - Otalgia Otogenic Right Ear - M26.601 - Temporomandibular Joint-pain Dysfunction Syndrome Right Chief Complaint The Chief Complaint is: Patient here for 2 week f/u. Started Hep C meds 22 days ago and has 6 days left. Requesting tramadol to get him to his ENT appt in July. Needs refill on antifungal medication as well. Reason For Visit Visit for: hep c treatment follow up. Referred Here Prior encounters ENT. History of Present Illness - Allergy list reviewed - Reviewed Medications - Medication list reviewed Patient reports that he has been taking medication for the Hep C. Patient reports that he had all of his teeth pulled due to the jaw pain. Patient reports that he has an appointment with ENT and follow up with Dental on 06/14. Patient does need a refill on the penlac for his toes. Patient is also requesting testing for STI. Had an STI over a year ago. Patient reports no symptoms now, he was treated for the STI previously Current Medication - busPIRone HCl 10 MG Oral Tablet Take 1 tablet by mouth twice a day, 28 days, 0 refills - Ciclopirox 8% External Solution Apply to affected toenail(s) and adjacent skin once daily in combination with weekly nail trimming and periodic nail debridement. Remove with alcohol every 7 days; continue therapy until nail clearance, 30 days, 0 refills - Epclusa 400-100 MG Oral Tablet TAKE 1 TABLET BY MOUTH ONCE DAILY, 28 days, 2 refills - hydrOXYzine Pamoate 50 MG Oral Capsule 10 days, 0 refills - Ibuprofen 800 MG Oral Tablet Take 1 tablet by mouth every 8 hours as needed for pain, 10 days, 2 refills - levoFLOXacin 500 MG Oral Tablet Urgent Care, 5 days, 0 refills - Loratadine 10 MG Oral Tablet Take 1 tablet by mouth daily, 30 days, 5 refills - predniSONE 20 MG Oral Tablet Urgent Care, 13 days, 0 refills - QUEtiapine Fumarate 100 MG Oral Tablet 30 days, 0 refills - tiZANidine HCl 4 MG Oral Tablet Urgent Care, 7 days, 0 refills - Zolpidem Tartrate 10 MG Oral Tablet 15 days, 0 refills Past Medical/Surgical History Reported: No Safety Measures. Immunization History: Recent immunization for flu. Diagnoses: Viral hepatitis C Surgical: - Hand surgery Right Social History Environmental Exposure: No secondhand cigarette smoke exposure. Tobacco use: Using electronic cigarettes/vaping and former smoker Quit date 05/29/2023. Alcohol: Not using alcohol. Drug Use: Using marijuana. Sexual: Sexually active, sexual orientation Straight (not lesbian or strange), and gender identity Male. Allergies - Penicillin V Reaction: Hives / Urticaria, Skin Rashes / Eruption of skin Family History Maternal: Type 2 diabetes mellitus Review Of Systems Systemic: No systemic symptoms. Head: No head symptoms. Otolaryngeal: No ear symptoms, no nasal symptoms, and no throat symptoms. Cardiovascular: No chest pain or discomfort. Pulmonary: No pulmonary symptoms. Gastrointestinal: No gastrointestinal symptoms. Genitourinary: No genitourinary symptoms. Musculoskeletal: No musculoskeletal symptoms. Neurological: No neurological symptoms. Psychological: No psychological symptoms. Skin: No skin symptoms. Physical Findings - Vitals taken 06/03/2023 01:10 pm BP-Sitting L108/76 mmHg Pulse Rate-Evsvuiv39 bpm Saqwlq99 in Nblmtl088 lbs Body Mass Index25.1 kg/m2 Body Surface Area1.9 m2 Oxygen Wiewhpwamw41 % Vital Signs: - Systolic blood pressure < 130 mmHg. - Diastolic Blood Pressure < 80 mmHg. General Appearance: - Awake. - Alert. - In no acute distress. Eyes: General/bilateral: Pupils: - PERRLA. Lungs: - Respiration rhythm and depth was normal. - Clear to auscultation. Cardiovascular: Heart Rate And Rhythm: - Normal. Heart Sounds: - Normal. Abdomen: Auscultation: - Bowel sounds were normal. Musculoskeletal System: General/bilateral: - Normal movement of all extremities. Neurological: - Oriented to time, place, and person. Psychiatric: - Expression of emotions finding was normal. Skin: - General appearance was normal. Tests Laboratory-based Chemistry: Other Laboratory Tests: Screening for sexually transmitted infections was performed. Assessment - Z11.3 - Encounter for screening for infections with a predominantly sexual mode of transmission - Z68.25 - Body mass index [BMI] 25.0-25.9, adult - M26.601 - Right temporomandibular joint disorder, unspecified - B17.10 - Acute hepatitis C without hepatic coma - F17.200 - Nicotine dependence, unspecified, uncomplicated Vaccinations - Fluarix 0.5mL for 6 months and older Dose #1 Status: Prev Hist Date: 02/24/2022 - Received dose of Reported: Patient has received the COVID Vaccine Counseling/Education - Discussed nutritional needs teach healthy choices including fruits and vegetables - Patient education about a proper diet - Discussed concerns about exercise: promote physical activity Plan StartCited- Acute hepatitis C without hepatic coma Outside Labs/General Labs: CBC with diff (CDP), Comprehensive Metabolic Panel (CP), Hep C Viral Load EndCited StartCited- Encntr screen for infections w sexl mode of transmiss Outside Labs/Microbiology: All 3 Urine Test Tudplxhaf-Muixvugaj-Jozjufqgzda EndCited StartCited- Tinea unguium Ciclopirox 8% mL Apply to affected toenail(s) and adjacent skin once daily in combination with weekly nail trimming and periodic nail debridement. Remove with alcohol every 7 days; continue therapy until nail clearance, 30 days, 2 refills EndCited Patient advised to keep all appointments with dental and ENT. Continue ibuprofen and tylenol for pain relief. Patient to complete all epclusa. Will give lab slip to have drawn in 1 week. Patient to follow up in 6 weeks for Hep C. Notes - Patient is not interested in the COVID-19 vaccination at this time. Care Team - Colette Almaguer CNP Health Reminders - Assess BMI satisfied 06/03/2023. - Assess Tobacco Use satisfied 06/03/2023. - Follow Up Plan BMI Management satisfied 06/03/2023. [facility]03-04-2024 Instructions Includes: Instructions for all patient encounters Education and Decision Aids were provided during visit for: Discussed nutritional needs teach healthy choices including fruits and vegetables Last Documented On 4 1:17PM ; [facility] Patient education about a pr oper diet Last Documented On 4 1:17PM ; [facility] Discussed concerns about exe rcise : promote physical activity Last Documented On 4 1:17PM ; [facility] Discussed concerns about uns afe sexual practices Last Documented On 4 1:29PM ; [facility] Discussed concerns about tob acco use Last Documented On 4 1:29PM ; [facility] Discussed concerns about alc ohol use Last Documented On 4 1:29PM ; [facility] Discussed concerns about ill icit drug use Last Documented On 4 1:29PM ; [facility] Patient has agreed to visits every 4 weeks Last Documented On 4 1:29PM ; [facility] Patient aware not to share n eedles, razors, toothbrushes, or nail clippers Last Documented On 4 1:29PM ; [facility] Counseled on medication and herbal product interactions Last Documented On 4 1:29PM ; [facility] Patient is treatment naive Last Documented On 4 1:29PM ; [facility] Patient has an estimated lif e expectancy of 12 months or greater. Last Documented On 4 1:29PM ; [facility] Patient counseled on how to take Hepatitis C Medications Last Documented On 4 1:29PM ; [facility] Patient agreed to labs (CBC, CMP, HCV) every 4 weeks Last Documented On 4 1:29PM ; [facility] Discussed nutritional needs teach healthy choices including fruits and vegetables Last Documented On 4 2:43PM ; [facility] Patient education about a pr oper diet Last Documented On 4 2:43PM ; [facility] Discussed concerns about exe rcise : promote physical activity Last Documented On 4 2:43PM ; [facility] *[facility] offered active and supp ortive listening, normalized emotions and feelings, and processed ~current stressors. ~*Reviewed relapse prevention skills and positive support activities Last Documented On 4 7:56PM ; [facility] Discussed nutritional needs teach healthy choices including fruits and vegetables Last Documented On 4 1:21PM ; [facility] Patient education about a pr oper diet Last Documented On 4 1:21PM ; [facility] Discussed concerns about exe rcise : promote physical activity Last Documented On 4 1:21PM ; [facility] Patient has agreed to visits every 4 weeks Last Documented On 4 1:59PM ; [facility] Patient aware not to share n eedles, razors, toothbrushes, or nail clippers Last Documented On 4 1:59PM ; [facility] Counseled on medication and herbal product interactions Last Documented On 4 1:59PM ; [facility] Patient is treatment naive Last Documented On 4 1:59PM ; [facility] Patient has an estimated lif e expectancy of 12 months or greater. Last Documented On 4 1:59PM ; [facility] Patient counseled on how to take Hepatitis C Medications Last Documented On 4 1:59PM ; [facility] Patient agreed to labs (CBC, CMP, HCV) every 4 weeks Last Documented On 4 1:59PM ; [facility] Work Phone: 1([phone]) 850-311503-04-2024 Evaluation note Includes: Assessments for all patient encounters Findings Encounter Date [Z68.24 - Body mass index [B VT] 24.0-24.9, adult] assessment of body mass index Medical Established Patient with Colette [facility] 05/10/2023 Last Documented On 4 8:24AM ; [facility] Generalized anxiety disorder Medical Est ablished Patient with Colette Almaguer [facility] 05/10/2023 Last Documented On 4 8:24AM ; [facility] Nicotine dependence Medical Established Patient with Colette [facility]mag[facility] 05/10/2023 Last Documented On 4 8:24AM ; [facility] Onychomycosis of the toenails Medical Es tablished Patient with Colette [facility]mag[facility] 05/10/2023 Last Documented On 4 8:24AM ; [facility] Otogenic otalgia of right ear Medical Es tablished Patient with Colette Almag[facility] 05/10/2023 Last Documented On 4 8:24AM ; [facility] 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 Medical Established Patient with Colette Almag[facility] 05/10/2023 Last Documented On 4 8:24AM ; [facility] Viral hepatitis C Medical Established Patient wi th Colette Almaguer [facility] 05/10/2023 Last Documented On 4 8:24AM ; [facility] [Z68.24 - Body mass index [B VT] 24.0-24.9, adult] assessment of body mass index Open Access - Established with Colette Almaguer [facility] 04/26/2023 Last Documented On 4 8:20AM ; [facility] Nicotine dependence Open Access - Established [facility] Colette Almaguer [facility] 04/26/2023 Last Documented On 4 8:20AM ; [facility] Otogenic otalgia of right ear Open Acces s - Established with Colette Almaguer [facility] 04/26/2023 Last Documented On 4 8:20AM ; [facility] 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 Open Access - Established with Colette Almaguer [facility] 04/26/2023 Last Documented On 4 8:20AM ; [facility] Generalized anxiety disorder BH Established [place] ent with Bri Barrow [facility] 04/12/2023 Last Documented On 4 7:57PM ; [facility] Nicotine dependence BH Established Patient with Brinatalie Barrow [facility] 04/12/2023 Last Documented On 4 7:57PM ; [facility] [Z68.23 - Body mass index [B VT] 23.0-23.9, adult] assessment of body mass index Medical New Patient with Colette [facility] 04/12/2023 Last Documented On 4 8:31AM ; [facility] Acute otitis media of left ear Medical N ew Patient with Colette Almaguer [facility] 04/12/2023 Last Documented On 4 8:31AM ; [facility] Diabetes Risk Test Score was three score 04/12/2023 Medical New Patient with Colette Almag[facility] 04/12/2023 Last Documented On 4 8:31AM ; [facility] Nicotine dependence Medical New Patient with Prospre jewell Yevgeniy [facility] 04/12/2023 Last Documented On 4 8:31AM ; [facility] Screening for HIV Medical New Patient with Francois Almag[facility] 04/12/2023 Last Documented On 4 8:31AM ; [facility] Upper respiratory infection Medical New Patient with Colette Almaguer CNP 04/12/2023 Last Documented On 4 8:31AM ; [facility] Visit for: screening for dig estive system disorders Medical New Patient with Colette Almaguer CNP 04/12/2023 Last Documented On 4 8:31AM ; [facility] Work Phone: [phone]) [phone] Progress note* Progress note Date Encounter Last Documented by 05/10/2023 Medical Established Patient Last documented on 05/11/2023; 8:24 AM, [facility]; [facility] Active Problems & Conditions - F41.1 - Generalized Anxiety Disorder - B17.10 - Hepatitis, C Virus - F17.200 - Nicotine Dependence - H92.01 - Otalgia Otogenic Right Ear - M26.601 - Temporomandibular Joint-pain Dysfunction Syndrome Right Chief Complaint The Chief Complaint is: Pt here for 2 week f/u. Did have 9 teeth pulled recently. Asking for RX for Claritin. Reason For Visit Visit for: Patient is here for follow up. Referred Here No prior encounters. History of Present Illness - Allergy list reviewed - Reviewed Medications - Medication list reviewed Patient reports that he feels the right side of the jaw is worse, feels it is not in the right place. Patent reports pain still with talking and eating. Patient reports that he finished antibiotics today for otitis media. Patient reports he has not been to ENT. Patient is concerned about the fungal infection in his feet. Patient reports that he has been having increasingly thickend great toe nails, they are more difficult to trim, some change in the shape of the nails. Nail color has also changed and the patient reports the nails are more brittle. Patient has not followed up with [facility] for the jaw pain. Patient reports he has not gotten any reply or call from [facility]. Went to [place] to have teeth pulled- to [facility]. He had 9 teeth pulled at once. Patient is also requesting to have claritin prescribed. He has been having some allergy symptoms. Reports that he feels dehydrated from the neck up . 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 He was diagnosed with UTI at that time and treated Current Medication - busPIRone HCl 10 MG Oral Tablet Take 1 tablet by mouth twice a day, 28 days, 0 refills - Epclusa 400-100 MG Oral Tablet TAKE 1 TABLET BY MOUTH ONCE DAILY, 28 days, 2 refills - hydrOXYzine Pamoate 50 MG Oral Capsule Capsule, conventional 10 days, 0 refills - Ibuprofen 800 MG Oral Tablet Take 1 tablet by mouth every 8 hours as needed for pain, 10 days, 2 refills - levoFLOXacin 500 MG Oral Tablet Urgent Care, 5 days, 0 refills - predniSONE 20 MG Oral Tablet Urgent Care, 13 days, 0 refills - QUEtiapine Fumarate 100 MG Oral Tablet 30 days, 0 refills - tiZANidine HCl 4 MG Oral Tablet Urgent Care, 7 days, 0 refills - Zolpidem Tartrate 10 MG Oral Tablet 15 days, 0 refills Past Medical/Surgical History Reported: No Safety Measures. Immunization History: Recent immunization for flu. Diagnoses: Viral hepatitis C Surgical: - Hand surgery Right Social History Environmental Exposure: No secondhand cigarette smoke exposure. Behavioral: Not a current tobacco user. Alcohol: Not using alcohol. Drug Use: Not using drugs denied by patient. Sexual: Not sexually active. Sexual orientation Straight (not lesbian or strange) and gender identity Male. Allergies - Penicillin V Reaction: Hives / Urticaria, Skin Rashes / Eruption of skin Family History Maternal: Type 2 diabetes mellitus Review Of Systems Systemic: No systemic symptoms. Head: No headache. Otolaryngeal: Ear symptoms right ear pain. No throat symptoms. Cardiovascular: No chest pain or discomfort. Pulmonary: Pulmonary symptoms shortness of breath- states he does not feel like he is getting as deep of a breath as he could be. No struggle to breath. Gastrointestinal: No gastrointestinal symptoms. Genitourinary: No genitourinary symptoms. Musculoskeletal: No musculoskeletal symptoms. Neurological: Dizziness. Psychological: No psychological symptoms. Skin: No skin symptoms. Physical Findings - Vitals taken 05/10/2023 01:13 pm BP-Sitting R114/71 mmHg Pulse Rate-Tqqdzre01 bpm Kyhkcw98 in Jbwmti179 lbs Body Mass Index24.5 kg/m2 Body Surface Area1.9 m2 Oxygen Isfkygiavu40 % Vital Signs: - Systolic blood pressure < 130 mmHg. - Diastolic Blood Pressure < 80 mmHg. General Appearance: - Awake. - Alert. - In no acute distress. Eyes: General/bilateral: Pupils: - PERRLA. Ears: General/bilateral: Tympanic Membrane: - Examined. - Not bulging. - No retraction of tympanic membrane. - Not erythematous. - Not opacified. Right Ear: - Examined. Left Ear: - Examined. Nose: General/bilateral: Discharge: - No nasal discharge. Pharynx: Oropharynx: - Normal. Lungs: - Respiration rhythm and depth was normal. - Clear to auscultation. Cardiovascular: Heart Rate And Rhythm: - Normal. Heart Sounds: - Normal. Abdomen: Auscultation: - Bowel sounds were normal. Musculoskeletal System: General/bilateral: - Normal movement of all extremities. Neurological: - Oriented to time, place, and person. Psychiatric: - Expression of emotions finding was normal. Skin: - Skin/Hair Changes present great toe on bilateral feet nails are thick, yellow, and scaley. Assessment - Z68.24 - Body mass index [BMI] 24.0-24.9, adult - H92.01 - Otalgia, right ear - M26.601 - Right temporomandibular joint disorder, unspecified - B17.10 - Acute hepatitis C without hepatic coma - B35.1 - Tinea unguium - F17.200 - Nicotine dependence, unspecified, uncomplicated - F41.1 - Generalized anxiety disorder Therapy - Avoid herbal medicines. - Consultation with ring sorter or parts representative. Vaccinations - Did not receive dose of Reported: Patient has not received the Covid Vaccine Counseling/Education - Wishing to stop smoking Discussed Quit Line resources - Discussed nutritional needs teach healthy choices including fruits and vegetables - Patient education about a proper diet - Patient is treatment naive - Patient has an estimated life expectancy of 12 months or greater. - Patient counseled on how to take Hepatitis C Medications - Patient agreed to labs (CBC, CMP, HCV) every 4 weeks - Patient has agreed to visits every 4 weeks - Patient aware not to share needles, razors, toothbrushes, or nail clippers - Counseled on medication and herbal product interactions - Discussed concerns about exercise: promote physical activity - Discussed concerns about unsafe sexual practices - Discussed concerns about tobacco use - Discussed concerns about alcohol use - Discussed concerns about illicit drug use Plan StartCited- Other Loratadine 10 MG tablet Take 1 tablet by mouth daily, 30 days, 5 refills EndCited StartCited- Tinea unguium Ciclopirox 8% mL Apply to affected toenail(s) and adjacent skin once daily in combination with weekly nail trimming and periodic nail debridement. Remove with alcohol every 7 days; continue therapy until nail clearance, 30 days, 0 refills EndCited Notes - Patient is not interested in the COVID-19 vaccination at this time. Care Team - Colette Almaguer CNP Health Reminders - Assess BMI satisfied 05/10/2023. - Assess Tobacco Use satisfied 05/10/2023. - Smoking & Tobacco Cessation Intervention and Counseling satisfied 05/10/2023. User Defined 1 Not planning a in the next year. [facility]03-04-2024 Reason for referral (narrative)* Date Encounter Description Provider Reason for Referral 05/10/23 Medical Established Patient Colette Almaguer CNP Consultation with hepatologi st or parts representative [facility] Work Phone: 1(872) 793-912902-22-2024 Progress note* Progress note Date Encounter Last Documented by 04/29/2023 Chart Update Last documented on 04/30/2023; 4:21 PM, Colette Almaguer CNP; [facility] Plan StartCited - Chronic viral hepatitis C Epclusa 400-100 MG tablet TAKE 1 TABLET BY MOUTH ONCE DAILY, 28 days, 2 refills EndCited Labs Reviewed. Epclusa sent to our pharmacy. Will initiate PA process. Andrés Vargas PharmD [facility]02-19-2024 Instructions Includes: Instructions for all patient encounters Education and Decision Aids were provided during visit for: Discussed nutritional needs teach healthy choices including fruits and vegetables Last Documented On 4 2:43PM ; [facility] Patient education about a pr oper diet Last Documented On 4 2:43PM ; [facility] Discussed concerns about exe rcise : promote physical activity Last Documented On 4 2:43PM ; [facility] *[facility] offered active and supp ortive listening, normalized emotions and feelings, and processed ~current stressors. ~*Reviewed relapse prevention skills and positive support activities Last Documented On 4 7:56PM ; [facility] Discussed nutritional needs teach healthy choices including fruits and vegetables Last Documented On 4 1:21PM ; [facility] Patient education about a pr oper diet Last Documented On 4 1:21PM ; [facility] Discussed concerns about exe rcise : promote physical activity Last Documented On 4 1:21PM ; [facility] Patient has agreed to visits every 4 weeks Last Documented On 4 1:59PM ; [facility] Patient aware not to share n eedles, razors, toothbrushes, or nail clippers Last Documented On 4 1:59PM ; [facility] Counseled on medication and herbal product interactions Last Documented On 4 1:59PM ; [facility] Patient is treatment naive Last Documented On 4 1:59PM ; [facility] Patient has an estimated lif e expectancy of 12 months or greater. Last Documented On 4 1:59PM ; [facility] Patient counseled on how to take Hepatitis C Medications Last Documented On 4 1:59PM ; [facility] Patient agreed to labs (CBC, CMP, HCV) every 4 weeks Last Documented On 4 1:59PM ; [facility] Work Phone: 1(130) 646-240702-19-2024 Instructions Includes: Instructions for all patient encounters Education and Decision Aids were provided during visit for: Discussed nutritional needs teach healthy choices including fruits and vegetables Last Documented On 4 2:43PM ; [facility] Patient education about a pr oper diet Last Documented On 4 2:43PM ; [facility] Discussed concerns about exe rcise : promote physical activity Last Documented On 4 2:43PM ; [facility] *[facility] offered active and supp ortive listening, normalized emotions and feelings, and processed ~current stressors. ~*Reviewed relapse prevention skills and positive support activities Last Documented On 4 7:56PM ; [facility] Discussed nutritional needs teach healthy choices including fruits and vegetables Last Documented On 4 1:21PM ; [facility] Patient education about a pr oper diet Last Documented On 4 1:21PM ; [facility] Discussed concerns about exe rcise : promote physical activity Last Documented On 4 1:21PM ; [facility] Patient has agreed to visits every 4 weeks Last Documented On 4 1:59PM ; [facility] Patient aware not to share n eedles, razors, toothbrushes, or nail clippers Last Documented On 4 1:59PM ; [facility] Counseled on medication and herbal product interactions Last Documented On 4 1:59PM ; [facility] Patient is treatment naive Last Documented On 4 1:59PM ; [facility] Patient has an estimated lif e expectancy of 12 months or greater. Last Documented On 4 1:59PM ; [facility] Patient counseled on how to take Hepatitis C Medications Last Documented On 4 1:59PM ; [facility] Patient agreed to labs (CBC, CMP, HCV) every 4 weeks Last Documented On 4 1:59PM ; [facility] Work Phone: [phone]) [phone] Evaluation note Includes: Assessments for all patient encounters Findings Encounter Date [Z68.24 - Body mass index [B VT] 24.0-24.9, adult] assessment of body mass index Open Access - Established with Colette Almaguer CNP 04/26/2023 Last Documented On 4 8:20AM ; [facility] Nicotine dependence Open Access - Established wi th Colette Almaguer CNP 04/26/2023 Last Documented On 4 8:20AM ; [facility] Otogenic otalgia of right ear Open Acces s - Established with Colette Almaguer CNP 04/26/2023 Last Documented On 4 8:20AM ; [facility] 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 Open Access - Established with Colette Almaguer [facility] 04/26/2023 Last Documented On 4 8:20AM ; [facility] Generalized anxiety disorder Established [place] ent with Bri Barrow [employer] 04/12/2023 Last Documented On 4 7:57PM ; [facility] Nicotine dependence Established Patient with Bri Barrow [employer] [employer] 04/12/2023 Last Documented On 4 7:57PM ; [facility] [Z68.23 - Body mass index [B VT] 23.0-23.9, adult] assessment of body mass index Medical New Patient with Colette Almaguer [facility] 04/12/2023 Last Documented On 4 8:31AM ; [facility] Acute otitis media of left ear Medical N ew Patient with Colette Almaguer [facility] 04/12/2023 Last Documented On 4 8:31AM ; [facility] Diabetes Risk Test Score was three score 04/12/2023 Medical New Patient with Colette Almaguer [facility] 04/12/2023 Last Documented On 4 8:31AM ; [facility] Nicotine dependence Medical New Patient with Prosper Almaguer [facility] 04/12/2023 Last Documented On 4 8:31AM ; [facility] Screening for HIV Medical New Patient with Francois Almaguer [facility] 04/12/2023 Last Documented On 4 8:31AM ; [facility] Upper respiratory infection Medical New Patient with Colette Almaguer [facility] 04/12/2023 Last Documented On 4 8:31AM ; [facility] Visit for: screening for dig estive system disorders Medical New Patient with Colette Almaguer [facility] 04/12/2023 Last Documented On 4 8:31AM ; [facility] Work Phone: 1([phone]) 468-284402-19-2024 Evaluation note Includes: Assessments for all patient encounters Findings Encounter Date [Z68.24 - Body mass index [B VT] 24.0-24.9, adult] assessment of body mass index Open Access - Established with Colette Almaguer [facility] 04/26/2023 Last Documented On 4 8:20AM ; [facility] Nicotine dependence Open Access - Established wi th Colette Almaguer [facility] 04/26/2023 Last Documented On 4 8:20AM ; [facility] Otogenic otalgia of right ear Open Acces s - Established with Colette Almaguer [facility] 04/26/2023 Last Documented On 4 8:20AM ; [facility] 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 Open Access - Established with Colette Almaguer [facility] 04/26/2023 Last Documented On 4 8:20AM ; [facility] Generalized anxiety disorder BH Established [place] ent with Brinatalie Barrow [facility] 04/12/2023 Last Documented On 4 7:57PM ; [facility] Nicotine dependence Established Patient with Bri Barrow [employer] [employer] 04/12/2023 Last Documented On 4 7:57PM ; [facility] [Z68.23 - Body mass index [B VT] 23.0-23.9, adult] assessment of body mass index Medical New Patient with Colette Almaguer [facility] 04/12/2023 Last Documented On 4 8:31AM ; [facility] Acute otitis media of left ear Medical N ew Patient with Colette Almaguer [facility] 04/12/2023 Last Documented On 4 8:31AM ; [facility] Diabetes Risk Test Score was three score 04/12/2023 Medical New Patient with Colette Almaguer [facility] 04/12/2023 Last Documented On 4 8:31AM ; [facility] Nicotine dependence Medical New Patient with Prosper Almaguer [facility] 04/12/2023 Last Documented On 4 8:31AM ; [facility] Screening for HIV Medical New Patient with Francois Almaguer [facility] 04/12/2023 Last Documented On 4 8:31AM ; [facility] Upper respiratory infection Medical New Patient with Colette Almaguer [facility] 04/12/2023 Last Documented On 4 8:31AM ; [facility] Visit for: screening for dig estive system disorders Medical New Patient with Colette Almaguer [facility] 04/12/2023 Last Documented On 8:31AM ; [facility] Work Phone: [phone] Progress note* Progress note Date Encounter Last Documented by 04/26/2023 Open Access - Established Last d ocumented on 04/27/2023; 8:20 AM, Colette Almaguer [facility]; [facility] Active Problems & Conditions - F41.1 - Generalized Anxiety Disorder - F17.200 - Nicotine Dependence - H92.01 - Otalgia Otogenic Right Ear - M26.601 - Temporomandibular Joint-pain Dysfunction Syndrome Right Chief Complaint The Chief Complaint is: Patient has an infection in his mouth. States his jaw will pop out of place and now has an infection in his ear. Just completed doxycycline regimen and now is wanting another prescription or something different as that has been helping. Has a dental appointment here on 05/03. Referred Here No prior encounters. History of Present Illness - Allergy list reviewed - Reviewed Medications - Medication list reviewed Patient came for a follow-up on requesting that his antibiotics be refilled. He was initially placed on antibiotics treatment for ear pain concerns he c/o in his previous visit. He admits following the dentist for a history of a TMJ problem that he had. States he had not been wearing his upper dentures because they no longer fit. Besides, his upper and lower tooth areas hurts and radiates pain to the inside of his ear. during assessment, he rated the pain in the right ear was 6/10 and did say, he feels the antibiotic tx he was on prior now took care of the whole stuff and was so was requesting for it to be refilled. The patient had says he does not have any other concerns Current Medication - Atomoxetine HCl 40 MG Oral Capsule 30 days, 0 refills - busPIRone HCl 10 MG Oral Tablet Take 1 tablet by mouth twice a day, 28 days, 0 refills - Doxycycline Hyclate 100 MG Oral Tablet Take 1 tablet by mouth 2 times per day for 10 days, 10 days, 0 refills - hydrOXYzine Pamoate 50 MG Oral Capsule 10 days, 0 refills - QUEtiapine Fumarate 100 MG Oral Tablet 30 days, 0 refills - Zolpidem Tartrate 10 MG Oral Tablet 15 days, 0 refills - Zolpidem Tartrate 10 MG Oral Tablet Take 1 tablet by mouth 1-3 hours before bedtime, 7 days, 0 refills Past Medical/Surgical History Reported: No Safety Measures. Immunization History: Recent immunization for flu. Diagnoses: Viral hepatitis C Surgical: - Hand surgery Right Social History Environmental Exposure: No secondhand cigarette smoke exposure. Tobacco use: Cigarette smoking Light (1-10/day). Not using electronic cigarettes/vaping. Alcohol: Not using alcohol. Drug Use: Not using drugs denied by patient. Sexual: Not sexually active. Sexual orientation Straight (not lesbian or strange) and gender identity Male. Allergies - Penicillin V Reaction: Hives / Urticaria, Skin Rashes / Eruption of skin Family History Maternal: Type 2 diabetes mellitus Review Of Systems Systemic: No fever and no chills. Head: No head symptoms and no headache. Sinus pressure C/o of intermittent pressure around sinus area. Normal shape of head. Neck: No neck symptoms. Eyes: No eye symptoms. Otolaryngeal: Ear symptoms C/o of ongoing pain in the right ear sanju. Cardiovascular: No cardiovascular symptoms. Pulmonary: No pulmonary symptoms. Gastrointestinal: No gastrointestinal symptoms. Endocrine: No endocrine symptoms. Musculoskeletal: No musculoskeletal symptoms. Neurological: No neurological symptoms. Psychological: No psychological symptoms. Skin: No skin symptoms. Physical Findings - Vitals taken 04/26/2023 02:35 pm BP-Sitting L115/73 mmHg Pulse Rate-Lycyaam24 bpm Vtqfwx09 in Tqqsnv820 lbs Body Mass Index24.5 kg/m2 Body Surface Area1.9 m2 Oxygen Qhlbwimzuu13 % Vital Signs: - Systolic blood pressure < 130 mmHg. - Diastolic Blood Pressure < 80 mmHg. General Appearance: - Awake. - Alert. - Well developed. - Well nourished. - In no acute distress. Head: Appearance: - Head normocephalic. Neck: Thyroid: - Is normal. Eyes: General/bilateral: Pupils: - PERRLA. Ears: General/bilateral: Outer Ear: - Normal. Tympanic Membrane: - Examined c/o of pain rated 6/10. Hearing Exam: - No hearing abnormalities. Right Ear: - Examined. Left Ear: - Examined. Nose: General/bilateral: Discharge: - No nasal discharge. Oral Cavity: Teeth: - Dental abnormalities Admits using dentures. Lymph Nodes: - No adenopathy. Lungs: - Normal. - Respiration rhythm and depth was normal. - Chest was normal to percussion. Cardiovascular: Auscultation: - Normal. Heart Sounds: - Normal. Percussion: - Normal. Carotid Arteries: - Examined. Abdomen: Visual Inspection: - Abdomen was normal on visual inspection. Musculoskeletal System: General/bilateral: - Abnormal movement of all extremities. - Extremities: normal. - Extremities: normal. Neurological: - Oriented to time, place, and person. Psychiatric: Appearance: - Tired. Skin: - General appearance was normal. Assessment - Z68.24 - Body mass index [BMI] 24.0-24.9, adult - H92.01 - Otalgia, right ear - M26.601 - Right temporomandibular joint disorder, unspecified - F17.200 - Nicotine dependence, unspecified, uncomplicated Vaccinations - PCV (Prevnar-20) Dose #1 Status: Administered Date: 04/26/2023 Counseling/Education - Not wishing to stop smoking offered Quit Line information - Discussed nutritional needs teach healthy choices including fruits and vegetables - Patient education about a proper diet - Discussed concerns about exercise: promote physical activity Plan StartCited- Otalgia, right ear Referrals: ENT Instructions: Please make a referral to: EndCited StartCited- Right temporomandibular joint disorder, unspecified Ibuprofen 800 MG tablet Take 1 tablet by mouth every 8 hours as needed for pain, 10 days, 2 refills Acetaminophen 500 MG tablet Take 2 tablets by mouth every 8 hours as needed for pain, 10 days, 2 refills EndCited Patient to be referred to ENT per his request. Advised patient that ear pain may be due to radiation from the TMJ. Patient deos have an appointment with Dental again next week, he was advisd to keep that appointment. Will send script for ibuprofen and tylenol for the pain control. Patient advised to take together or he may alternate to help with dental pain. Patient to follow up in 2 weeks. Labs have been completed for Hep C treatment. Task sent to [facility]. Care Team - Colette Almaguer CNP Health Reminders - Assess BMI satisfied 04/26/2023. - Assess Tobacco Use satisfied 04/26/2023. - Smoking & Tobacco Cessation Intervention and Counseling satisfied 04/26/2023. User Defined 1 Not planning a in the next year. [facility]02-05-2024 Evaluation note Includes: Assessments for all patient encounters Findings Encounter Date Generalized anxiety disorder Established [place] ent with Bri Barrow [employer] [facility] [employer] 04/12/2023 Last Documented On 4 7:57PM ; [facility] Nicotine dependence BH Established Patient with Bri Barrwo [facility] [employer] [employer] 04/12/2023 Last Documented On 4 7:57PM ; [facility] [Z68.23 - Body mass index [B VT] 23.0-23.9, adult] assessment of body mass index Medical New Patient with Colette Almaguer [facility] 04/12/2023 Last Documented On 4 2:11PM ; [facility] Acute otitis media of left ear Medical N ew Patient with Colette Yevgeniy [facility] 04/12/2023 Last Documented On 4 2:11PM ; [facility] Diabetes Risk Test Score was three score 04/12/2023 Medical New Patient with Colette Almaguer [facility] 04/12/2023 Last Documented On 4 2:11PM ; [facility] Nicotine dependence Medical New Patient with Prosper jewell Yevgeniy [facility] 04/12/2023 Last Documented On 4 2:11PM ; [facility] Upper respiratory infection Medical New Patient with Colette Yevgeniy [facility] 04/12/2023 Last Documented On 4 2:11PM ; [facility] Visit for: screening for dig estive system disorders Medical New Patient with Colette Almaguer [facility] 04/12/2023 Last Documented On 4 2:11PM ; [facility] Work Phone: 1([phone] Evaluation note Includes: Assessments for all patient encounters Findings Encounter Date Generalized anxiety disorder BH Established [place] ent with Bri Brarow [employer] 04/12/2023 Last Documented On 4 7:57PM ; [facility] Nicotine dependence Established Patient with Bri Barrow [employer] 04/12/2023 Last Documented On 4 7:57PM ; [facility] [Z68.23 - Body mass index [B VT] 23.0-23.9, adult] assessment of body mass index Medical New Patient with Colette Almaguer [facility] 04/12/2023 Last Documented On 4 10:55PM ; [facility] Acute otitis media of left ear Medical N ew Patient with Colette Almaguer [facility] 04/12/2023 Last Documented On 4 10:55PM ; [facility] Diabetes Risk Test Score was three score 04/12/2023 Medical New Patient with Colette Almaguer [facility] 04/12/2023 Last Documented On 4 10:55PM ; [facility] Nicotine dependence Medical New Patient with Prosper Almaguer [facility] 04/12/2023 Last Documented On 4 10:55PM ; [facility] Upper respiratory infection Medical New Patient with Colette Almaguer [facility] 04/12/2023 Last Documented On 4 10:55PM ; [facility] Visit for: screening for dig estive system disorders Medical New Patient with Colette Almaguer [facility] 04/12/2023 Last Documented On 4 10:55PM ; [facility] Work Phone: [phone] Evaluation note Includes: Assessments for all patient encounters Findings Encounter Date Generalized anxiety disorder Established [place] ent with Bri Barrow [employer] 04/12/2023 Last Documented On 4 7:57PM ; [facility] Nicotine dependence Established Patient with Bri Barrow [employer] 04/12/2023 Last Documented On 4 7:57PM ; [facility] [Z68.23 - Body mass index [B VT] 23.0-23.9, adult] assessment of body mass index Medical New Patient with Colette Almaguer [facility] 04/12/2023 Last Documented On 4 8:31AM ; [facility] Acute otitis media of left ear Medical N ew Patient with Colette Almaguer [facility] 04/12/2023 Last Documented On 4 8:31AM ; [facility] Diabetes Risk Test Score was three score 04/12/2023 Medical New Patient with Colette Almaguer [facility] 04/12/2023 Last Documented On 4 8:31AM ; [facility] Nicotine dependence Medical New Patient with Prosper Almaguer [facility] 04/12/2023 Last Documented On 4 8:31AM ; [facility] Screening for HIV Medical New Patient with Francois Almaguer [facility] 04/12/2023 Last Documented On 4 8:31AM ; [facility] Upper respiratory infection Medical New Patient with Colette Almaguer [facility] 04/12/2023 Last Documented On 4 8:31AM ; [facility] Visit for: screening for dig estive system disorders Medical New Patient with Colette Almaguer [facility] 04/12/2023 Last Documented On 4 8:31AM ; [facility] Work Phone: 1([phone]) 573-153202-05-2024 History general Narrative - Reported Includes: Medical History in patient's chart Description Last Updated No Safety Measures 04/12/2023 Last Documented On 4 7:57PM ; [facility] Work Phone: 1([phone]) 201-880802-05-2024 History general Narrative - Reported Includes: Medical History in patient's chart Description Last Updated No Safety Measures 04/12/2023 Last Documented On 4 7:57PM ; [facility] History of viral hepatitis C 04/12/2023 Last Documented On 4 10:55PM ; [facility] Recent immunization for flu 04/12/2023 Last Documented On 4 10:55PM ; [facility] Work Phone: [phone] History general Narrative - Reported Includes: Medical History in patient's chart Description Last Updated No Safety Measures 04/12/2023 Last Documented On 4 7:57PM ; [facility] History of viral hepatitis C 04/12/2023 Last Documented On 4 8:31AM ; [facility] Recent immunization for flu 04/12/2023 Last Documented On 4 8:31AM ; [facility] Work Phone: [phone] History general Narrative - Reported Includes: Medical History in patient's chart Description Last Updated No Safety Measures 04/12/2023 Last Documented On 4 7:57PM ; [facility] History of viral hepatitis C 04/12/2023 Last Documented On 4 8:31AM ; [facility] Recent immunization for flu 04/12/2023 Last Documented On 4 8:31AM ; [facility] Work Phone: [phone]) 572-455002-05-2024 History general Narrative - Reported Includes: Medical History in patient's chart Description Last Updated No Safety Measures 04/12/2023 Last Documented On 4 7:57PM ; [facility] History of viral hepatitis C 04/12/2023 Last Documented On 4 8:31AM ; [facility] Recent immunization for flu 04/12/2023 Last Documented On 4 8:31AM ; [facility] Work Phone: [phone]) 697-942902-05-2024 History general Narrative - Reported Includes: Medical History in patient's chart Description Last Updated No Safety Measures 04/12/2023 Last Documented On 4 7:57PM ; [facility] History of viral hepatitis C 04/12/2023 Last Documented On 4 8:31AM ; [facility] Recent immunization for flu 04/12/2023 Last Documented On 4 8:31AM ; [facility] Work Phone: [phone]) 967-732102-05-2024 History general Narrative - Reported Includes: Medical History in patient's chart Description Last Updated No Safety Measures 04/12/2023 Last Documented On 4 7:57PM ; [facility] History of viral hepatitis C 04/12/2023 Last Documented On 4 8:31AM ; [facility] Recent immunization for flu 04/12/2023 Last Documented On 4 8:31AM ; [facility] Work Phone: [phone] 198-975202-05-2024 History general Narrative - Reported Includes: Medical History in patient's chart Description Last Updated No Safety Measures 04/12/2023 Last Documented On 4 7:57PM ; [facility] History of viral hepatitis C 04/12/2023 Last Documented On 4 8:31AM ; [facility] Recent immunization for flu 04/12/2023 Last Documented On 4 8:31AM ; [facility] Work Phone: [phone]) 680-297702-05-2024 Progress note* Progress note Date Encounter Last Documented by 04/12/2023 Established Patient Last docu mented on 04/12/2023; 7:57 PM, Bri WARE; [facility] Active Problems & Conditions - F41.1 - Generalized Anxiety Disorder Subjective [facility] met with patient and assessed patients mood. Khushbu denied any depression but reports anxiety due to his current living situaiton. Patient reports that he is in a sober living due to a relapse that occured last year .Patient reports using Methamphetamines and alcohol. Patient is having a lot of pain due to his jaw and reports experiencing involuntary jaw movements. Patient was diagnosed with methamphetamine induced psychosis but denies hearing any voices now that he is not using. Patient reports soberiety for a year in May. Patient does not want any medicaiton for his anxiety. Patient does not have any other concerns pertaining to his substance use or his mental health. Chief Complaint The Chief Complaint is: Establishing care and hep C treatment. Assessed mood and medication. History of Present Illness Raheem Cohn is a 48 year old male. - Anxiety - Hard to stay asleep due to pain - Energy level is good - No depression Current Medication - Atomoxetine HCl 40 MG Oral Capsule 30 days, 0 refills - Benztropine Mesylate 1 MG Oral Tablet 28 days, 0 refills - Doxycycline Hyclate 100 MG Oral Tablet Take 1 tablet by mouth 2 times per day for 10 days, 10 days, 0 refills - hydrOXYzine Pamoate 50 MG Oral Capsule 10 days, 0 refills - QUEtiapine Fumarate 100 MG Oral Tablet 30 days, 0 refills - Zolpidem Tartrate 10 MG Oral Tablet 15 days, 0 refills Past Medical/Surgical History Reported: No Safety Measures. Social History Environmental Exposure: No secondhand cigarette smoke exposure. Tobacco use: Cigarette smoking Light (1-10/day). Alcohol: Not using alcohol. Drug Use: Recovering from drug addiction. Not using drugs. Housing And Economic Circumstances: Living arrangements living arrangements: [facility] in [facility] and [facility] in [facility] sober living. Sexual: Sexual orientation Straight (not lesbian or strange) and gender identity Male. Allergies - Penicillin V Reaction: Hives / Urticaria, Skin Rashes / Eruption of skin Physical Findings General Appearance: - Normal Appearance. Neurological: - Cognitive Functions was Normal. - Estimated intelligence was normal. - Oriented to time, place, and person. - No hallucinations. - Judgement was not impaired. Speech: - Is Normal. - No articulation abnormalities. Psychiatric: - Mood was concerned. - Mood is Euthymic. - Attitude Open. Appearance: - Normal. Demonstrated Behavior: - Motor Activity Normal Activity. - Eye Contact Appropriate. Affect: - Congruent with the mood. Thought Processes: - Not impaired. Thought Content: - Revealed no impairment. - Insight was intact. - No delusions. - No suicidal ideation. - No Passive thoughts of . - No suicidal plans. - No suicidal intent. - No homicidal ideations. - No homicidal plans. - No homicidal intent. Past Medical: - No repetitive self injurious behavior. Assessment - Nicotine dependence [F17.200 - Nicotine dependence, unspecified, uncomplicated] - Generalized anxiety disorder [F41.1 - Generalized anxiety disorder] Therapy - SBIRT Full Screen Neg. - Brief solution-focused therapy. - Plan - do not modify medication. Collaborated with patient and provider: Counseling/Education *BHP offered active and supportive listening, normalized emotions and feelings, and processed current stressors. *Reviewed relapse prevention skills and positive support activities. Plan *Patient to follow up as needed/scheduled. *Continue with treatment for sobriety. Health Reminders - Assess Tobacco Use satisfied 04/12/2023. - PAULA-2 satisfied 04/12/2023. - PHQ9 / PHQA satisfied 04/12/2023. - SBIRT satisfied 04/12/2023. User Defined 1 He has not had 5 or more drinks in a day within the past year., no misuse of prescription only drugs, and not illicit. Little interest or pleasure in doing things in the last 2 weeks? 0 pt Not at all and Feeling down, depressed, or hopeless in the last 2 weeks? 0 pt Not at all. PAULA-7 score was ten 04/12/2023 [PAULA-7] Feeling nervous, anxious or on edge? + 1 pt : Several days, [PAULA-7] Feeling nervous, anxious or on edge? + 1 pt : Several days, [PAULA-7] Not being able to stop or control worrying? + 2 pt : More than half the days, [PAULA-7] Not being able to stop or control worrying? + 2 pt : More than half the days, [PAULA-7] Worrying too much about different things? + 2 pt : More than half the days, [PAULA-7] Trouble relaxing? + 3 pt : Nearly every day, [PAULA-7] Being so restless that it's hard to sit still? + 1 pt : Several days, [PAULA-7] Becoming easily annoyed or irritable? + 0 pt : Not at all, [PAULA-7] Feeling afraid as if something awful might happen? + 1 pt : Several days, Patient Health Questionnaire 9-Item total score was 0 04/12/2023, [PHQ-9-1] Little interest or pleasure in doing things? + 0 pt : Not at all, [PHQ-9-2] Feeling down, depressed, or hopeless? + 0 pt : Not at all, [PHQ-9-3] Trouble falling or staying asleep or sleeping too much? + 0 pt : Not at all, [PHQ-9-4] Feeling tired or having little energy? + 0 pt : Not at all, [PHQ-9-5] Poor appetite or overeating? + 0 pt : Not at all, [PHQ-9-6] Feeling bad about yourself-or that you are a failure + 0 pt : Not at all, [PHQ-9-7] Trouble concentrating on things such as reading the newspaper + 0 pt : Not at all, [PHQ-9-8] Moving or speaking so slowly that other people have noticed. + 0 pt : Not at all, and [PHQ-9-9] Thoughts that you would be better off or hurting yourself? + 0 pt : Not at all. [facility]02-05-2024 Progress note* Progress note Date Encounter Last Documented by 04/12/2023 Medical New Patient Last matteo mercaod on 04/12/2023; 10:55 PM, [facility]; [facility] Active Problems & Conditions - F41.1 - Generalized Anxiety Disorder Chief Complaint The Chief Complaint is: Pt here for Hep C treatment. Pt is having jaw issues. Reason For Visit Visit for: would like treatment for Hep C. Referred Here Referred by emergency room. Prior encounters. History of Present Illness - Allergy list reviewed - Reviewed Medications - Medication list reviewed Patient is here for Hep C treatment. Patient reports he has had Hep C since 2006. 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 Patient reports that he has beeb seen by dental for jaw pain. They have referred him to [facility]. Patient reports that he is in sober living, he is being treated by [facility]. Reports that he has been clean for a year in May. Last may he relapsed on Meth and alcohol. 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 he stopped the truck and sought medical treatment. Patient reports that he thinks a lot of those symptoms are related to his jaw pain. Patient reports that he has also been having some involuntary jaw movement and is also having difficulty with speech due to the pain. Patient reports that he is no longer hearing voices. Reports that he is no longer driving truck due to the distraction from the jaw pain Current Medication - Atomoxetine HCl 40 MG Oral Capsule 30 days, 0 refills - Benztropine Mesylate 1 MG Oral Tablet 28 days, 0 refills - hydrOXYzine Pamoate 50 MG Oral Capsule 10 days, 0 refills - QUEtiapine Fumarate 100 MG Oral Tablet 30 days, 0 refills - Zolpidem Tartrate 10 MG Oral Tablet 15 days, 0 refills Past Medical/Surgical History Reported: Immunization History: Recent immunization for flu. Diagnoses: Viral hepatitis C Surgical: - Hand surgery Right Social History Environmental Exposure: No secondhand cigarette smoke exposure. Tobacco use: Cigarette smoking Light (1-10/day). Alcohol: Not using alcohol. Drug Use: Not using drugs denied by patient. Sexual: Not sexually active. Sexual orientation Straight (not lesbian or strange) and gender identity Male. Allergies - Penicillin V Reaction: Hives / Urticaria, Skin Rashes / Eruption of skin Family History Maternal: Type 2 diabetes mellitus Review Of Systems Systemic: No systemic symptoms. Head: No head symptoms. Otolaryngeal: No ear symptoms, no nasal symptoms, and no throat symptoms. Jaw symptoms see HPI. Cardiovascular: No cardiovascular symptoms. Pulmonary: No pulmonary symptoms. Gastrointestinal: No gastrointestinal symptoms. Genitourinary: No genitourinary symptoms. Musculoskeletal: No musculoskeletal symptoms. Neurological: No neurological symptoms. Psychological: No psychological symptoms. Skin: No skin symptoms. Physical Findings - Vitals taken 04/12/2023 01:15 pm BP-Sitting R111/79 mmHg Pulse Rate-Npxfltv59 bpm Tslgoa54 in Mdvazy906 lbs Body Mass Index23.9 kg/m2 Body Surface Area1.9 m2 Oxygen Yihjuegzvw17 % Vital Signs: - Systolic blood pressure < 130 mmHg. - Diastolic Blood Pressure < 80 mmHg. General Appearance: - Awake. - Alert. - In no acute distress. Eyes: General/bilateral: Pupils: - PERRLA. Ears: General/bilateral: Tympanic Membrane: - Examined. - Bulging. - Erythematous. - Opacified. Right Ear: - Examined. Left Ear: - Examined. Nose: General/bilateral: Discharge: - No nasal discharge. Lungs: - Lung auscultation revealed abnormalities. - Wheezing was heard. - Respiration rhythm and depth was normal. Cardiovascular: Heart Rate And Rhythm: - Normal. Heart Sounds: - Normal. Abdomen: Auscultation: - Bowel sounds were normal. Musculoskeletal System: General/bilateral: - Normal movement of all extremities. Neurological: - Oriented to time, place, and person. Psychiatric: - Expression of emotions finding was normal. Skin: - General appearance was normal. Tests Blood Analysis: Hemoglobin Studies: ValueDate Blood hemoglobin A1c 5.6%04/12/2023 Hemoglobin A1c level < 7.0%. Laboratory-based Chemistry: Immunology Studies: HIV test was negative. Microbiology: Microbiology Antibody Identification: In House Screen Hep C was positive 04/12/2023. Assessment - Z13.818 - Encounter for screening for other digestive system disorders - Z68.23 - Body mass index [BMI] 23.0-23.9, adult - Z13.1 - Encounter for screening for diabetes mellitus - H66.92 - Otitis media, unspecified, left ear - F17.200 - Nicotine dependence, unspecified, uncomplicated - J06.9 - Acute upper respiratory infection, unspecified Vaccinations - Received dose of Reported: Patient has received the COVID Vaccine Counseling/Education - Not wishing to stop smoking offered Quit Line information - Discussed nutritional needs teach healthy choices including fruits and vegetables - Patient education about a proper diet - Patient is treatment naive - Patient has an estimated life expectancy of 12 months or greater. - Patient counseled on how to take Hepatitis C Medications - Patient agreed to labs (CBC, CMP, HCV) every 4 weeks - Patient has agreed to visits every 4 weeks - Patient aware not to share needles, razors, toothbrushes, or nail clippers - Counseled on medication and herbal product interactions - Discussed concerns about exercise: promote physical activity Plan StartCited- Encounter for screening for other digestive system disorders Lab: CBC With Differential/Platelet Lab: Prothrombin Time (PT) Lab: PTT, Activated Lab: Hep B Surface Ab, Qual Lab: HBsAg Screen Lab: Hepatitis B Surf Ab Quant Lab: Hep B Core Ab, Tot Lab: Hep A Ab, Total Lab: PT and PTT Lab: HIV Ab/p24 Ag with Reflex Lab: HCV Antibody Lab: Comp. Metabolic Panel (14) Lab: HCV RT-PCR, Quant (Non-Graph) Lab: HCV FibroSure Lab: HCV Genotyping Non Reflex Lab: HCV RNA Diagnosis, KATELYNN EndCited StartCited- Otitis media, unspecified, left ear Doxycycline Hyclate 100 MG tablet Take 1 tablet by mouth 2 times per day for 10 days, 10 days, 0 refills EndCited Patient to complete labs and follow up in 1 month. Patient agreeable to monthly follow up for the Hep C treatment. Advised that the patient answer the phone for the unknown numbers or to make sure his voicemail is set up and he can check regularly as he will be getting calls from pharmacy and insurance companies. Patient to follow up in 1 month. Health Reminders - Assess BMI satisfied 04/12/2023. - Assess Tobacco Use satisfied 04/12/2023. - Diabetes Risk Screening Needed satisfied 04/12/2023. - HIV Screen satisfied 04/12/2023. - Smoking & Tobacco Cessation Intervention and Counseling satisfied 04/12/2023. User Defined 1 Not planning a in the next year. Yes (1 point) [Pre-DM]: Yes, mother, father, sister or brother has DM, No (0 points) [Pre-DM]: Patient has not been diagnosed with gestational diabetes or given to a baby weighing 9 pounds or more, No (0 points) [Pre-DM]: No, patient has not been diagnosed with high blood pressure, Yes (0 point) [Pre-DM]: Yes, physically active, and Man (1 point) [Pre-DM]. 40 to 49 Years Old (1 Point) [Pre-DM]. [facility]02-05-2024 Progress note* Progress note Date Encounter Last Documented by 04/12/2023 Medical New Patient Last matteo mercado on 04/20/2023; 8:31 AM, [facility]; [facility] Active Problems & Conditions - F41.1 - Generalized Anxiety Disorder Chief Complaint The Chief Complaint is: Pt here for Hep C treatment. Pt is having jaw issues. Reason For Visit Visit for: would like treatment for Hep C. Referred Here Referred by emergency room. Prior encounters. History of Present Illness - Allergy list reviewed - Reviewed Medications - Medication list reviewed Patient is here for Hep C treatment. Patient reports he has had Hep C since 2006. 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 Patient reports that he has beeb seen by dental for jaw pain. They have referred him to [facility]. Patient reports that he is in sober living, he is being treated by [facility]. Reports that he has been clean for a year in May. Last may he relapsed on Meth and alcohol. 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 he stopped the truck and sought medical treatment. Patient reports that he thinks a lot of those symptoms are related to his jaw pain. Patient reports that he has also been having some involuntary jaw movement and is also having difficulty with speech due to the pain. Patient reports that he is no longer hearing voices. Reports that he is no longer driving truck due to the distraction from the jaw pain Current Medication - Atomoxetine HCl 40 MG Oral Capsule 30 days, 0 refills - Benztropine Mesylate 1 MG Oral Tablet 28 days, 0 refills - hydrOXYzine Pamoate 50 MG Oral Capsule 10 days, 0 refills - QUEtiapine Fumarate 100 MG Oral Tablet 30 days, 0 refills - Zolpidem Tartrate 10 MG Oral Tablet 15 days, 0 refills Past Medical/Surgical History Reported: Immunization History: Recent immunization for flu. Diagnoses: Viral hepatitis C Surgical: - Hand surgery Right Social History Environmental Exposure: No secondhand cigarette smoke exposure. Tobacco use: Cigarette smoking Light (1-10/day). Alcohol: Not using alcohol. Drug Use: Not using drugs denied by patient. Sexual: Not sexually active. Sexual orientation Straight (not lesbian or strange) and gender identity Male. Allergies - Penicillin V Reaction: Hives / Urticaria, Skin Rashes / Eruption of skin Family History Maternal: Type 2 diabetes mellitus Review Of Systems Systemic: No systemic symptoms. Head: No head symptoms. Otolaryngeal: No ear symptoms, no nasal symptoms, and no throat symptoms. Jaw symptoms see HPI. Cardiovascular: No cardiovascular symptoms. Pulmonary: No pulmonary symptoms. Gastrointestinal: No gastrointestinal symptoms. Genitourinary: No genitourinary symptoms. Musculoskeletal: No musculoskeletal symptoms. Neurological: No neurological symptoms. Psychological: No psychological symptoms. Skin: No skin symptoms. Physical Findings - Vitals taken 04/12/2023 01:15 pm BP-Sitting R111/79 mmHg Pulse Rate-Zirwfvh34 bpm Ucjrdk30 in Alqsjb654 lbs Body Mass Index23.9 kg/m2 Body Surface Area1.9 m2 Oxygen Tlbsekzrkp56 % Vital Signs: - Systolic blood pressure < 130 mmHg. - Diastolic Blood Pressure < 80 mmHg. General Appearance: - Awake. - Alert. - In no acute distress. Eyes: General/bilateral: Pupils: - PERRLA. Ears: General/bilateral: Tympanic Membrane: - Examined. - Bulging. - Erythematous. - Opacified. Right Ear: - Examined. Left Ear: - Examined. Nose: General/bilateral: Discharge: - No nasal discharge. Lungs: - Lung auscultation revealed abnormalities. - Wheezing was heard. - Respiration rhythm and depth was normal. Cardiovascular: Heart Rate And Rhythm: - Normal. Heart Sounds: - Normal. Abdomen: Auscultation: - Bowel sounds were normal. Musculoskeletal System: General/bilateral: - Normal movement of all extremities. Neurological: - Oriented to time, place, and person. Psychiatric: - Expression of emotions finding was normal. Skin: - General appearance was normal. Tests Blood Analysis: Hemoglobin Studies: ValueDate Blood hemoglobin A1c 5.6%04/12/2023 Hemoglobin A1c level < 7.0%. Laboratory-based Chemistry: Immunology Studies: HIV test was negative. Microbiology: Microbiology Antibody Identification: In House Screen Hep C was positive 04/12/2023. Assessment - Z11.4 - Encounter for screening for human immunodeficiency virus [HIV] - Z13.818 - Encounter for screening for other digestive system disorders - Z68.23 - Body mass index [BMI] 23.0-23.9, adult - Z13.1 - Encounter for screening for diabetes mellitus - H66.92 - Otitis media, unspecified, left ear - F17.200 - Nicotine dependence, unspecified, uncomplicated - J06.9 - Acute upper respiratory infection, unspecified Vaccinations - Received dose of Reported: Patient has received the COVID Vaccine Counseling/Education - Not wishing to stop smoking offered Quit Line information - Discussed nutritional needs teach healthy choices including fruits and vegetables - Patient education about a proper diet - Patient is treatment naive - Patient has an estimated life expectancy of 12 months or greater. - Patient counseled on how to take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 hearing of right ear [facility] Otalgia, right- Primary Asymmetrical hearing loss Unspecified hearing loss Sensorineural hearing loss (SNHL) of left ear with unrestricted hearing of right ear Sensation of fullness in right ear DNS (deviated nasal septum) Deviated nasal septum Nasal congestion Other diseases of nasal cavity and sinuses Tonsil stone Other chronic disease of tonsils and adenoids TMJ tenderness, bilateral Other tobacco product nicotine dependence, uncomplicated 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 Former smoker Personal history of tobacco use, presenting hazards to health [facility] Diagnosis Arthralgia of right temporomandibular joint- Primary TMJ (temporomandibular joint disorder) Unspecified temporomandibular joint disorders Thrush Candidiasis of mouth Onychomycosis of toenail [facility]* Diagnosis Subacute sinusitis, unspecified location [facility] Diagnosis Subacute sinusitis, unspecified location- Primary Anxiety Anxiety state, unspecified [facility] Diagnosis Facial pain- Primary Headache [facility]* Diagnosis Arthralgia of right temporomandibular joint- Primary TMJ (temporomandibular joint disorder) Unspecified temporomandibular joint disorders [facility]* Diagnosis Otalgia of both ears- Primary Fullness in ear, bilateral [facility]* Diagnosis Oral thrush- Primary Candidiasis of mouth TMJ (temporomandibular joint disorder) Unspecified temporomandibular joint disorders [facility]* Diagnosis Dry mouth and eyes- Primary TMJ (temporomandibular joint disorder) Unspecified temporomandibular joint disorders Onychomycosis of toenail ASNHL (asymmetrical sensorineural hearing loss) Sensorineural hearing loss, asymmetrical Smoking Tobacco use disorder documented in [facility]* Diagnosis Edentulous orofacial dystonia- Primary [facility]* Diagnosis Edentulous orofacial dystonia- Primary [facility]* Diagnosis Anxiety- Primary Anxiety state, unspecified TMJ (temporomandibular joint disorder) Unspecified temporomandibular joint disorders Angular cheilosis Diseases of lips [facility]* Diagnosis TMJ (temporomandibular joint disorder)- Primary Unspecified temporomandibular joint disorders Oral thrush Candidiasis of mouth TMJ (temporomandibular joint disorder) Unspecified temporomandibular joint disorders documented [facility]* Diagnosis Hepatitis C- Primary Unspecified viral hepatitis C without hepatic coma Weight loss Loss of weight Fatigue Other malaise and fatigue Lumbar disc herniation Displacement of lumbar intervertebral disc without myelopathy Polysubstance dependence including opioid type drug, episodic abuse (HCC) Combinations of opioid type drug with any other drug dependence, episodic Cervicalgia- Primary Localized swelling, mass or lump of neck Swelling, mass, or lump in head and neck Anxiety Anxiety state, unspecified [facility]* Diagnosis Hepatitis C- Primary Unspecified viral hepatitis C without hepatic coma Weight loss Loss of weight Fatigue Other malaise and fatigue Lumbar disc herniation Displacement of lumbar intervertebral disc without myelopathy Polysubstance dependence including opioid type drug, episodic abuse (HCC) Combinations of opioid type drug with any other drug dependence, episodic Cervicalgia Localized swelling, mass or lump of neck Swelling, mass, or lump in head and neck documented in this [facility]* Diagnosis Hepatitis C- Primary Unspecified viral hepatitis C without hepatic coma Weight loss Loss of weight Fatigue Other malaise and fatigue Lumbar disc herniation Displacement of lumbar intervertebral disc without myelopathy Polysubstance dependence including opioid type drug, episodic abuse (HCC) Combinations of opioid type drug with any other drug dependence, episodic Acute pain of left shoulder documented in this [facility]* Diagnosis Facial pain- Primary Headache Anxiety Anxiety state, unspecified Seborrhea capitis Cervicalgia Localized swelling, mass or lump of neck [facility] Diagnosis Dysphagia, unspecified type Dry mouth Disturbance of salivary secretion Nasal mucosa dry Other diseases of nasal cavity and sinuses Black hairy tongue Hypertrophy of tongue papillae Cervicalgia Localized swelling, mass or lump of neck [facility] Diagnosis Hepatitis C- Primary Unspecified viral hepatitis C without hepatic coma Weight loss Loss of weight Fatigue Other malaise and fatigue Lumbar disc herniation Displacement of lumbar intervertebral disc without myelopathy Polysubstance dependence including opioid type drug, episodic abuse (HCC) Combinations of opioid type drug with any other drug dependence, episodic Left shoulder tendonitis- Primary Acute pain of left shoulder documented [facility] this [facility]* Diagnosis Hepatitis C- Primary Unspecified viral hepatitis C without hepatic coma Weight loss Loss of weight Fatigue Other malaise and fatigue Lumbar disc herniation Displacement of lumbar intervertebral disc without myelopathy Polysubstance dependence including opioid type drug, episodic abuse (HCC) Combinations of opioid type drug with any other drug dependence, episodic Cervicalgia Localized swelling, mass or lump of neck Swelling, mass, or lump in head and neck [facility] Black hairy tongue- Primary Hypertrophy of tongue papillae Dysphagia, unspecified type Asymmetrical hearing loss Unspecified hearing loss DNS (deviated nasal septum) Deviated nasal septum [facility]* Diagnosis Hepatitis C- Primary Unspecified viral hepatitis C without hepatic coma Weight loss Loss of weight Fatigue Other malaise and fatigue Lumbar disc herniation Displacement of lumbar intervertebral disc without myelopathy Polysubstance dependence including opioid type drug, episodic abuse (HCC) Combinations of opioid type drug with any other drug dependence, episodic Cervicalgia- Primary Cervical spondylosis Cervical spondylosis without myelopathy Jaw pain [facility] Diagnosis Cervical spondylosis without myelopathy- Primary TMJ (temporomandibular joint disorder) Unspecified temporomandibular joint disorders TMJ (temporomandibular joint disorder)- Primary Unspecified temporomandibular joint disorders TMJ (temporomandibular joint disorder) Unspecified temporomandibular joint disorders [facility]* Diagnosis TMJ (temporomandibular joint disorder)- Primary Unspecified temporomandibular joint disorders Facial pain- Primary Headache Anxiety Anxiety state, unspecified TMJ (temporomandibular joint disorder) Unspecified temporomandibular joint disorders [facility]* Diagnosis TMJ (temporomandibular joint disorder)- Primary Unspecified temporomandibular joint disorders Anxiety Anxiety state, unspecified TMJ (temporomandibular joint disorder) Unspecified temporomandibular joint disorders [facility]* Diagnosis TMJ (temporomandibular joint disorder)- Primary Unspecified temporomandibular joint disorders Cervical spondylosis without myelopathy TMJ (temporomandibular joint disorder) Unspecified temporomandibular joint disorders [facility] Diagnosis Hepatitis C- Primary Unspecified viral hepatitis C without hepatic coma Weight loss Loss of weight Fatigue Other malaise and fatigue Lumbar disc herniation Displacement of lumbar intervertebral disc without myelopathy Polysubstance dependence including opioid type drug, episodic abuse (HCC) Combinations of opioid type drug with any other drug dependence, episodic Incompetent nasal valve- Primary Other diseases of nasal cavity and sinuses Refractory obstruction of nasal airway Other diseases of nasal cavity and sinuses Hypertrophy of inferior nasal turbinate Hypertrophy of nasal turbinates Deviated nasal septum Incompetent nasal valve Other diseases of nasal cavity and sinuses Refractory obstruction of nasal airway Other diseases of nasal cavity and sinuses Hypertrophy of inferior nasal turbinate Hypertrophy of nasal turbinates Deviated nasal septum [facility]* Diagnosis Hepatitis C- Primary Unspecified viral hepatitis C without hepatic coma Weight loss Loss of weight Fatigue Other malaise and fatigue Lumbar disc herniation Displacement of lumbar intervertebral disc without myelopathy Polysubstance dependence including opioid type drug, episodic abuse (HCC) Combinations of opioid type drug with any other drug dependence, episodic Seborrheic dermatitis- Primary Seborrheic dermatitis, unspecified Incompetent nasal valve Other diseases of nasal cavity and sinuses Refractory obstruction of nasal airway Other diseases of nasal cavity and sinuses Hypertrophy of inferior nasal turbinate Hypertrophy of nasal turbinates Deviated nasal septum documented [facility]* Diagnosis TMJ (temporomandibular joint disorder)- Primary Unspecified temporomandibular joint disorders 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 TMJ (temporomandibular joint disorder) Unspecified temporomandibular joint disorders documented in this encounter [facility]* Diagnosis Bilateral temporomandibular joint disorder, unspecified- Primary TMJ (temporomandibular joint disorder) - Bilateral Unspecified temporomandibular joint disorders documented in this encounter [facility]* Diagnosis Hepatitis C- Primary Unspecified viral hepatitis C without hepatic coma Weight loss Loss of weight Fatigue Other malaise and fatigue Lumbar disc herniation Displacement of lumbar intervertebral disc without myelopathy Polysubstance dependence including opioid type drug, episodic abuse (HCC) Combinations of opioid type drug with any other drug dependence, episodic Pre-op evaluation- Primary Preoperative examination, unspecified Hepatitis C virus infection without hepatic coma, unspecified chronicity Neck pain Cervicalgia Opioid dependence in remission (HCC) Opioid type dependence, in remission Incompetent nasal valve Other diseases of nasal cavity and sinuses Refractory obstruction of nasal airway Other diseases of nasal cavity and sinuses Hypertrophy of inferior nasal turbinate Hypertrophy of nasal turbinates Deviated nasal septum documented in this encounter [facility]* Diagnosis Anxiety Anxiety state, unspecified [facility]* Diagnosis Hepatitis C- Primary Unspecified viral hepatitis C without hepatic coma Weight loss Loss of weight Fatigue Other malaise and fatigue Lumbar disc herniation Displacement of lumbar intervertebral disc without myelopathy Polysubstance dependence including opioid type drug, episodic abuse (HCC) Combinations of opioid type drug with any other drug dependence, episodic Pre-op evaluation- Primary Preoperative examination, unspecified Hepatitis C virus infection without hepatic coma, unspecified chronicity Neck pain Cervicalgia Opioid dependence in remission (HCC) Opioid type dependence, in remission Viral sinusitis- Primary Unspecified sinusitis (chronic) Incompetent nasal valve Other diseases of nasal cavity and sinuses Refractory obstruction of nasal airway Other diseases of nasal cavity and sinuses Hypertrophy of inferior nasal turbinate Hypertrophy of nasal turbinates Deviated nasal septum documented in this encounter [facility]* Diagnosis Chronic hepatitis C without hepatic coma (HCC)- Primary Amphetamine and psychostimulant dependence, episodic abuse (HCC) Amphetamine and other psychostimulant dependence, episodic Polysubstance dependence including opioid type drug, episodic abuse (HCC) Combinations of opioid type drug with any other drug dependence, episodic Delusional disorder (HCC) Sinusitis, unspecified chronicity, unspecified location- Primary Deviated nasal septum Post-nasal drainage Unspecified sinusitis (chronic) Oropharyngeal dysphagia Dysphagia, oropharyngeal phase documented in this encounter [facility]* Diagnosis Chronic hepatitis C without hepatic coma (HCC)- Primary Amphetamine and psychostimulant dependence, episodic abuse (HCC) Amphetamine and other psychostimulant dependence, episodic Polysubstance dependence including opioid type drug, episodic abuse (HCC) Combinations of opioid type drug with any other drug dependence, episodic Delusional disorder (HCC) Sinusitis, unspecified chronicity, unspecified location- Primary Deviated nasal septum Post-nasal drainage Unspecified sinusitis (chronic) Oropharyngeal dysphagia Dysphagia, oropharyngeal phase documented in this encounter [facility] note* Diagnosis TMJ (temporomandibular joint disorder) - Bilateral Unspecified temporomandibular joint disorders documented in this [facility]* Diagnosis Hepatitis C- Primary Unspecified viral hepatitis C without hepatic coma Weight loss Loss of weight Fatigue Other malaise and fatigue Lumbar disc herniation Displacement of lumbar intervertebral disc without myelopathy Polysubstance dependence including opioid type drug, episodic abuse (HCC) Combinations of opioid type drug with any other drug dependence, episodic Pre-op evaluation- Primary Preoperative examination, unspecified Hepatitis C virus infection without hepatic coma, unspecified chronicity Neck pain Cervicalgia Opioid dependence in remission (HCC) Opioid type dependence, in remission Jaw pain- Primary Atypical facial pain Atypical face pain Dysphagia, unspecified type [facility]* Diagnosis Hepatitis C- Primary Unspecified viral hepatitis C without hepatic coma Weight loss Loss of weight Fatigue Other malaise and fatigue Lumbar disc herniation Displacement of lumbar intervertebral disc without myelopathy Polysubstance dependence including opioid type drug, episodic abuse (HCC) Combinations of opioid type drug with any other drug dependence, episodic Pre-op evaluation- Primary Preoperative examination, unspecified Hepatitis C virus infection without hepatic coma, unspecified chronicity Neck pain Cervicalgia Opioid dependence in remission (HCC) Opioid type dependence, in remission Post-operative state- Primary Other postprocedural status documented [facility] this [facility]* Diagnosis Hepatitis C- Primary Unspecified viral hepatitis C without hepatic coma Weight loss Loss of weight Fatigue Other malaise and fatigue Lumbar disc herniation Displacement of lumbar intervertebral disc without myelopathy Polysubstance dependence including opioid type drug, episodic abuse (HCC) Combinations of opioid type drug with any other drug dependence, episodic Pre-op evaluation- Primary Preoperative examination, unspecified Hepatitis C virus infection without hepatic coma, unspecified chronicity Neck pain Cervicalgia Opioid dependence in remission (HCC) Opioid type dependence, in remission Oropharyngeal dysphagia- Primary Dysphagia, oropharyngeal phase Jaw pain Atypical facial pain Atypical face pain [facility]* Diagnosis Chronic facial pain- Primary Headache TMJ (temporomandibular joint disorder) Unspecified temporomandibular joint disorders TMJ (temporomandibular joint disorder)- Primary Unspecified temporomandibular joint disorders TMJ (temporomandibular joint disorder) Unspecified temporomandibular joint disorders [facility] Diagnosis TMJ (temporomandibular joint disorder)- Primary Unspecified temporomandibular joint disorders Hx of trauma of hard palate- Primary TMJ (temporomandibular joint disorder) Unspecified temporomandibular joint disorders [facility] Diagnosis TMJ syndrome- Primary Unspecified temporomandibular joint disorders Scalp pain documented in this encounter [facility] Work Phone: History of Present illness Narrative History of Present Illness not supported for this document type No [facility] Discharge instructions* Attachments The following attachments cannot be sent through Care Everywhere. * Temporomandibular Joint (TMJ) Disorders Discharge Instructions ([place]) * TMJ Exercises ([place]) [facility] Attachments The following attachments cannot be sent through Care Everywhere. * Head or Face Pain ([place]) [facility] In[facility]: Instructions for all patient encounters Education and Decision Aids were provided during visit for: *P offered active and supp ortive listening, normalized emotions and feelings, and processed ~current stressors. ~*Reviewed relapse prevention skills and positive support activities Last Documented On 4 7:56PM ; [facility] Discussed nutritional needs teach healthy choices including fruits and vegetables Last Documented On 4 1:21PM ; [facility] Patient education about a pr oper diet Last Documented On 4 1:21PM ; [facility] Discussed concerns about exe rcise : promote physical activity Last Documented On 4 1:21PM ; [facility] Patient has agreed to visits every 4 weeks Last Documented On 4 1:59PM ; [facility] Patient aware not to share n eedles, razors, toothbrushes, or nail clippers Last Documented On 4 1:59PM ; [facility] Counseled on medication and herbal product interactions Last Documented On 4 1:59PM ; [facility] Patient is treatment naive Last Documented On 4 1:59PM ; [facility] Patient has an estimated lif e expectancy of 12 months or greater. Last Documented On 4 1:59PM ; [facility] Patient counseled on how to take Hepatitis C Medications Last Documented On 4 1:59PM ; [facility] Patient agreed to labs (CBC, CMP, HCV) every 4 weeks Last Documented On 4 1:59PM ; [facility] Work Phone: Instructions Includes: Instructions for all patient encounters Education and Decision Aids were provided during visit for: *BHP offered active and supp ortive listening, normalized emotions and feelings, and processed ~current stressors. ~*Reviewed relapse prevention skills and positive support activities Last Documented On 4 7:56PM ; [facility] Discussed nutritional needs teach healthy choices including fruits and vegetables Last Documented On 4 1:21PM ; [facility] Patient education about a pr oper diet Last Documented On 4 1:21PM ; [facility] Discussed concerns about exe rcise : promote physical activity Last Documented On 4 1:21PM ; [facility] Patient has agreed to visits every 4 weeks Last Documented On 4 1:59PM ; [facility] Patient aware not to share n eedles, razors, toothbrushes, or nail clippers Last Documented On 4 1:59PM ; [facility] Counseled on medication and herbal product interactions Last Documented On 4 1:59PM ; [facility] Patient is treatment naive Last Documented On 4 1:59PM ; [facility] Patient has an estimated lif e expectancy of 12 months or greater. Last Documented On 4 1:59PM ; [facility] Patient counseled on how to take Hepatitis C Medications Last Documented On 4 1:59PM ; [facility] Patient agreed to labs (CBC, CMP, HCV) every 4 weeks Last Documented On 4 1:59PM ; [facility] Work Phone: Instructions Includes: Instructions for all patient encounters Education and Decision Aids were provided during visit for: *BHP offered active and supp ortive listening, normalized emotions and feelings, and processed ~current stressors. ~*Reviewed relapse prevention skills and positive support activities Last Documented On 4 7:56PM ; [facility] Discussed nutritional needs teach healthy choices including fruits and vegetables Last Documented On 4 1:21PM ; [facility] Patient education about a pr oper diet Last Documented On 4 1:21PM ; [facility] Discussed concerns about exe rcise : promote physical activity Last Documented On 4 1:21PM ; [facility] Patient has agreed to visits every 4 weeks Last Documented On 4 1:59PM ; [facility] Patient aware not to share n eedles, razors, toothbrushes, or nail clippers Last Documented On 4 1:59PM ; [facility] Counseled on medication and herbal product interactions Last Documented On 4 1:59PM ; [facility] Patient is treatment naive Last Documented On 4 1:59PM ; [facility] Patient has an estimated lif e expectancy of 12 months or greater. Last Documented On 4 1:59PM ; [facility] Patient counseled on how to take Hepatitis C Medications Last Documented On 4 1:59PM ; [facility] Patient agreed to labs (CBC, CMP, HCV) every 4 weeks Last Documented On 4 1:59PM ; [facility] Work Phone: InstructionsNot on filedocumented in this encounter [facility] filedocumented in this encounter [facility] filedocumented in this encounter [facility] filedocumented in this encounter [facility] on filedocumented in this encounter [facility] on filedocumented in this encounter [facility] on filedocumented in this encounter [facility]Not on filedocumented in this encounter [facility]ructionsNot on filedocumented in this encounter [facility]ructionsNot on filedocumented in this encounter [facility]ructionsNot on filedocumented in this encounter [facility]ructionsNot on filedocumented in this encounter [facility]ructionsNot on filedocumented in this encounter [facility]ructionsNot on filedocumented in this encounter [facility]ructionsNot on filedocumented in this encounter [facility]ructionsNot on filedocumented in this encounter [facility] SystemInstructionsNot on filedocumented in this encounter [facility] SystemInstructionsNot on filedocumented in this encounter [facility] SystemInstructionsNot on filedocumented in this encounter [facility] SystemPatient problem outcome Narrative Includes: Evaluations & Outcomes for active Goals No Outcomes RecordedHealth [facility] Work Phone: Rekfqm for referral (narrative)No Reason for Referral RecordedHealth [facility] Work Phone: Rexvtn for referral (narrative)* Consultation (Routine) - Authorized Specialty Diagnoses / Procedures Referred By Joelle de león Referred To Contact Rehabilitation Diagnoses Facial pain Carrington Fritz MD [address] [place] [address], [address] [place] [address] [facility] [address] [place] [phone] Referral ID Status Reason Start Date Expiration Date Visits Requested Visits Authorized [id number] Authorized Specialty Services Required 4 06/20/2024 12 12 * Consultation (Routine) - Pending Review Specialty Diagnoses / Procedures Referred By Joelle de león Referred To Contact Pain Medicine Diagnoses Facial pain Carrington Fritz MD [address] [place] [address], [address] [place] [address] [facility] [address] [place] [address] Referral ID Status Reason Start Date Expiration Date Visits Requested Visits Authorized [id number] Pending Review Specialty Services Required 4 12/20/2024 1 1 [facility] for visit Narrative* Diagnostic Procedure Only (Routine) - Closed Specialty Diagnoses / Procedures Referred By Contac t Referred To Contact XR IMAGING Diagnoses Left shoulder pain, unspecified chronicity Procedures XR SHOULDER GENERAL 3V OR MORE AP/TRUE AP/OTHER LEFT RADEX SHOULDER COMPLETE MINIMUM 2 VIEWS Kory Kirkland, [facility] [address] [place] [address] [place] [address] Referral ID Status Reason Start Date Expiration Date V isits Requested Visits Authorized [id number] Closed Auto-Generate d Referral 04/03/2024 05/03/2025 1 1 [facility] for visit Narrative* Consultation (Routine) - Pending Review Specialty Diagnoses / Procedures Referred By Contac t Referred To Contact Rheumatology Diagnoses [place] [address] [place] [address] [address] [place] [address] Phone: tel: fax: [facility] [address] [address] Phone: tel: fax: Referral ID Status Reason Start Date Expiration Date Visits Requested Visits Authorized [id number] Pending Review Specialty Services Required 4 12/21/2024 1 1 [facility] for visit Narrative* Diagnostic Procedure Only (Routine) - Closed Specialty Diagnoses / Procedures Referred By Contac t Referred To Contact XR IMAGING Diagnoses Cervicalgia Localized swelling, mass or lump of neck Procedures XR CERV OTHER 4V AP/LAT/OBL RADEX SPINE CERVICAL 4 OR 5 VIEWS Gabe Marin, [facility] [address] [id number] Phone: tel: fax: [place] [address] Referral ID Status Reason Start Date Expiration Date V isits Requested Visits Authorized [id number] Closed Auto-Generate d Referral 04/24/2024 05/24/2025 1 1 [facility] for visit Narrative* MRI/CT (Routine) - Closed Specialty Diagnoses / Procedures Referred By Contac t Referred To Contact MR IMAGING Diagnoses Acute pain of left shoulder Procedures MRI SHOULDER WO IVCON LEFT MRI ANY JT UPPER EXTREMITY W/O CONTRAST Brandy Esquivel PA-C [address] [place] [address] Phone: tel: fax: [place] [address] Referral ID Status Reason Start Date Expiration Date V isits Requested Visits Authorized [id number] Closed Auto-Generate d Referral 04/14/2024 06/13/2024 1 1 [facility] for visit Narrative* MRI/CT (Routine) - Closed Specialty Diagnoses / Procedures Referred By Joelle t Referred To Contact MR IMAGING Diagnoses Cervicalgia Localized swelling, mass or lump of neck Procedures MRI CERVICAL SPINE WO IVCON MRI SPINAL CANAL CERVICAL W/O CONTRAST Gabe Manning, [facility] [address] [id number] Phone: tel: fax: MR IMAGING [facility] Referral ID Status Reason Start Date Expiration Date V isits Requested Visits Authorized [id number] Closed Auto-Generat ed Referral Clearance Not Met - Admin/Chairm an/Director Advise to Postpone/Res chedule or Not Proceed 05/11/2024 08/11/2024 1 1 [facility] for visit Narrative* Imaging (Routine) - Closed Specialty Diagnoses / Procedures Referred By Contac t Referred To Contact Radiology Diagnoses Oropharyngeal dysphagia Procedures MRI BRAIN W WO CONTRAST Kulwinder Nur MD [address] [address] Phone: tel: fax: Referral ID Status Reason Start Date Expiration Date Visits Re quested Visits Authorized [id number] Closed 06/09/2024 06/09/2025 1 1 [facility] for visit Narrative* Imaging (Routine) - Pending Review Specialty Diagnoses / Procedures Referred By Joelle de león Referred To Contact Radiology Diagnoses Oropharyngeal dysphagia Procedures FL MODIFIED BARIUM SWALLOW W VIDEO Kulwinder Nur MD [address] [facility] [address] [place] [address] Phone: tel: fax: Referral ID Status Reason Start Date Expiration Date V isits Requested Visits Authorized [id number] Pending Review 06/09/2024 06/09/2025 1 1 [facility] for visit Narrative* Auth/Cert (Routine) Specialty Diagnoses / Procedures Referred By Joelle de león Referred To Contact ADMITTING Diagnoses 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 Hypertrophy of inferior nasal turbinate Deviated nasal septum 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] Refractory obstruction of nasal airway [J34.89] Hypertrophy of inferior nasal turbinate [J34.3] Deviated nasal septum [J34.2] Procedures NASAL VESTIBUL STENOS REPAIR SEPTOPLASTY/SUBMUCOUS RESECJ W/WO CARTILAGE GRF SUBMUCOUS RESCJ INFERIOR TURBINATE PRTL/COMPL REPAIR NASAL VESTIBULAR STENOSIS SEPTOPLASTY RESECTION SUBMUCOSAL TURBINATES Admitting [address] [place] [address] Referral ID Status Reason Start Date Expiration Date Visits Re quested Visits Authorized [id number] [address] [facility] systems Narrative - Reported Review of Systems not supported for this document type No Review of Systems RecordedHealth [facility] Work Phone: Summary Purpose Family History No Family History Records Found Description Last Updated Maternal history of type 2 diabetes symone itus 04/12/2023 Last Documented On 4 10:55PM ; [facility] Description Last Updated Maternal history of type 2 diabetes symone itus 04/12/2023 Last Documented On 4 8:31AM ; [facility] Description Last Updated Maternal history of type 2 diabetes symone itus 04/12/2023 Last Documented On 4 8:31AM ; [facility] Description Last Updated Maternal history of type 2 diabetes symone itus 04/12/2023 Last Documented On 4 8:31AM ; [facility] Description Last Updated Maternal history of type 2 diabetes symone itus 04/12/2023 Last Documented On 4 8:31AM ; [facility] Description Last Updated Maternal history of type 2 diabetes symone itus 04/12/2023 Last Documented On 4 8:31AM ; [facility] Description Last Updated Maternal history of type 2 diabetes symone itus 04/12/2023 Last Documented On 4 8:31AM ; [facility] Description Last Updated Maternal history of type 2 diabetes symone itus 04/12/2023 Last Documented On 4 8:31AM ; [facility] Description Last Updated Maternal history of type 2 diabetes symone itus 04/12/2023 Last Documented On 4 8:31AM ; [facility] Description Last Updated Maternal history of type 2 diabetes symone itus 04/12/2023 Last Documented On 4 8:31AM ; [facility] Description Last Updated Maternal history of type 2 diabetes symone itus 04/12/2023 Last Documented On 4 8:31AM ; [facility] Description Last Updated Maternal history of type 2 diabetes symone itus 04/12/2023 Last Documented On 4 8:31AM ; [facility] Description Last Updated Maternal history of type 2 diabetes symone itus 04/12/2023 Last Documented On 4 8:31AM ; [facility] Description Last Updated Maternal history of type 2 diabetes symone itus 04/12/2023 Last Documented On 4 8:31AM ; [facility] Description Last Updated Maternal history of type 2 diabetes symone itus 04/12/2023 Last Documented On 4 8:31AM ; [facility] Description Last Updated Maternal history of type 2 diabetes symone itus 04/12/2023 Last Documented On 4 8:31AM ; [facility] Description Last Updated Maternal history of type 2 diabetes symone itus 04/12/2023 Last Documented On 4 8:31AM ; [facility] Description Last Updated Maternal history of type 2 diabetes symone itus 04/12/2023 Last Documented On 4 8:31AM ; [facility] Advance Directives No Advanced Directives Records FoundDocuments on File Type Date 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 ACP-Advance Directive ACP-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 of Superintendent [employer] Date Activated Date Inactivated Comments 01/12/2023 6:16 PM 01/25/2023 2:30 PM Date Activated Date Inactivated Comments 12/18/2022 12:19 AM 01/01/2023 2:32 PM Date Activated Date Inactivated Comments 01/12/2023 6:16 PM 01/25/2023 2:30 PM Date Activated Date Inactivated Comments 12/18/2022 12:19 AM 01/01/2023 2:32 PM Health Concerns Infection Onset Date Last Indicated Resolved Time COVID-19 Rule-Out 01/07/2022 01/07/2022 01/07/2022 6:29 PM EDT Physical Exam Physical Exam not supported for this document type No Physical Exam Recorded Physical Exam not supported for this document type No Physical Exam Recorded Physical Exam not supported for this document type No Physical Exam Recorded Physical Exam not supported for this document type No Physical Exam Recorded Physical Exam not supported for this document type No Physical Exam Recorded Physical Exam not supported for this document type No Physical Exam Recorded Physical Exam not supported for this document type No Physical Exam Recorded Physical Exam not supported for this document type No Physical Exam Recorded Physical Exam not supported for this document type No Physical Exam Recorded Physical Exam not supported for this document type No Physical Exam Recorded Physical Exam not supported for this document type No Physical Exam Recorded Physical Exam not supported for this document type No Physical Exam Recorded Physical Exam not supported for this document type No Physical Exam Recorded Physical Exam not supported for this document type No Physical Exam Recorded Physical Exam not supported for this document type No Physical Exam Recorded Physical Exam not supported for this document type No Physical Exam Recorded Physical Exam not supported for this document type No Physical Exam Recorded Physical Exam not supported for this document type No Physical Exam Recorded Physical Exam not supported for this document type No Physical Exam Recorded Reason for Referral Specialty Diagnoses / Procedures Referred By Joelle de león Referred To Contact Radiology Diagnoses Atypical face pain Procedures CT NECK W/O CONTRAST Jeimy Hi, JOCE [address] [place] [address] Referral ID Status Reason Start Date Expiration Date V isits Requested Visits Authorized [id number] Pending Review 12/06/2023 12/05/2024 1 1 Specialty Diagnoses / Procedures Referred By Contac t Referred To Contact CT IMAGING Diagnoses Dislocation of temporomandibular joint, subsequent encounter Procedures CT TEMP BONES WO IVCON CT ORBIT SELLA/POST FOSSA/EAR W/O CONTRAST MATRL Kory Kirkland, [facility]CR[facility] [address] [place] [address] [place] [address] Referral ID Status Reason Start Date Expiration Date Visits Requested Visits Authorized [id number] Waiting for Online Response Auto-Generat ed Referral 12/08/2023 01/06/2025 1 1 Specialty Diagnoses / Procedures Referred By Contac t Referred To Contact [facility] [place] Diagnoses Muscular pain Procedures CONSULT TO [facility] OFFICE/OUTPATIENT NEW HIGH MDM 60 MINUTES Kory Kirkland, [facility]CR[facility] [address] [place] [address] Referral ID Status Reason Start Date Expiration Date Visits Requested Visits Authorized [id number] Authorized PCP Requested Referral 12/08/2023 12/07/2024 1 1 Specialty Diagnoses / Procedures Referred By Contac t Referred To Contact Dentistry Diagnoses Dislocation of temporomandibular joint, subsequent encounter Procedures CONSULT TO DENTISTRY OFFICE/OUTPATIENT NEW HIGH MDM 60 MINUTES Kory Kirkland, [facility] [address] [place] [address] Referral ID Status Reason Start Date Expiration Date Visits Requested Visits Authorized [id number] New Request PCP Requested Referral 12/08/2023 12/07/2024 1 1 Specialty Diagnoses / Procedures Referred By Contac t Referred To Contact [facility] Diagnoses Dislocation of temporomandibular joint, subsequent encounter Muscular pain Procedures CONSULT TO PHYSICAL THERAPY PHYSICAL THERAPY EVALUATION HIGH COMPLEX 45 MINS Kory Kirkland, [facility]CR[facility] [address] [place] [address] [facility] [place] [address] [place] [address] Referral ID Status Reason Start Date Expiration Date Visits Requested Visits Authorized [id number] Pending Review Auto-Generat ed Referral 12/08/2023 12/07/2024 1 1 Specialty Diagnoses / Procedures Referred By Contac t Referred To Contact MR IMAGING Diagnoses Right facial pain Atypical facial pain Procedures MRI BRAIN WO/W IVCON MRI BRAIN BRAIN STEM W/O W/[place] [address] [place] [address] [place] [address] Referral ID Status Reason Start Date Expiration Date Visits Requested Visits Authorized [id number] Pending Review Auto-Generat ed Referral 12/10/2023 01/08/2025 1 1 Referral ID Status Reason Start Date Expiration Date Visits Re quested Visits Authorized [id number] Closed 12/16/2023 02/14/2024 1 1 Specialty Diagnoses / Procedures Referred By Contac t Referred To Contact CT IMAGING Diagnoses Cervicalgia Procedures CTA NECK W IVCON CT ANGIOGRAPHY NECK W/CONTRAST/NONCONTRAST Kay Siddiqi, PA-C [address] [place] [address] Ct Imaging [facility] Referral ID Status Reason Start Date Expiration Date Visits Requested Visits Authorized [id number] Pending Review Auto-Generat ed Referral 03/17/2024 04/16/2025 1 1 Specialty Diagnoses / Procedures Referred By Contac t Referred To Contact CT IMAGING Diagnoses Localized swelling, mass or lump of neck Procedures CTA HEAD W IVCON CT ANGIOGRAPHY HEAD W/CONTRAST/NONCONTRAST Kay Siddiqi, PA-C [address] [place] [address] Ct Imaging [facility] Referral ID Status Reason Start Date Expiration Date Visits Requested Visits Authorized [id number] Pending Review Auto-Generat ed Referral 03/17/2024 04/16/2025 1 1 Specialty Diagnoses / Procedures Referred By Contac t Referred To Contact Ent - Otolaryngology Diagnoses DNS (deviated nasal septum) Procedures CONSULT TO ENT OFFICE/OUTPATIENT [facility] 60 MINUTES Lyn Shipman PA-C [address] [place] [address] Referral ID Status Reason Start Date Expiration Date Visits Requested Visits Authorized [id number] Authorized PCP Requested Referral 03/29/2024 03/29/2025 1 1 Specialty Diagnoses / Procedures Referred By Contac t Referred To Contact Radiology Diagnoses Dysphagia, unspecified type Procedures CT SOFT TISSUE NECK W CONTRAST Carmen Mcadams MD [address] [address] Referral ID Status Reason Start Date Expiration Date Visits Re quested Visits Authorized [id number] Closed 11/10/2023 11/03/2024 1 1 Referral ID Status Reason Start Date Expiration Date Visits Requested Visits Authorized [id number] Pending Review Auto-Genera jess Referral Clearance Not Met - Admin/Chair man/Directo r Advise to Postpone/Re schedule or Not Proceed Patient Cleared - Admin/Chair man/Directo r advise to proceed or did not respond 03/17/2024 04/16/2025 1 1 Referral ID Status Reason Start Date Expiration Date Visits Requested Visits Authorized [id number] Pending Review Auto-Genera jess Referral Patient Cleared - Admin/Chair man/Directo r advise to proceed or did not respond 03/17/2024 04/16/2025 1 1 Specialty Diagnoses / Procedures Referred By Contac t Referred To Contact Orthopedics Diagnoses Left shoulder pain, unspecified chronicity Procedures CONSULT PANEL TO ORTHOPAEDICS OFFICE/OUTPATIENT [facility] 60 MINUTES Kory Kirkland, [facility] [address] [place] [address] Referral ID Status Reason Start Date Expiration Date Visits Requested Visits Authorized [id number] Authorized PCP Requested Referral 04/03/2024 04/03/2025 1 1 Specialty Diagnoses / Procedures Referred By Contac t Referred To Contact XR IMAGING Diagnoses Left shoulder pain, unspecified chronicity Procedures XR SHOULDER GENERAL 3V OR MORE AP/TRUE AP/OTHER LEFT RADEX SHOULDER COMPLETE MINIMUM 2 VIEWS Kory Kirkland, [facility] [address] [place] [address] [place] [address] Referral ID Status Reason Start Date Expiration Date Visits Requested Visits Authorized [id number] New Request Auto-Generat ed Referral 04/03/2024 05/03/2025 1 1 Specialty Diagnoses / Procedures Referred By Contac t Referred To Contact [facility] [place] Diagnoses Cervical spine pain Procedures [facility] TO [facility] OFFICE/OUTPATIENT NEW HIGH MDM 60 MINUTES Brandy Erickson PA-C [address] [place] [address] Referral ID Status Reason Start Date Expiration Date Visits Requested Visits Authorized [id number] Authorized PCP Requested Referral 04/07/2024 04/07/2025 1 1 Specialty Diagnoses / Procedures Referred By Contac t Referred To Contact MR IMAGING Diagnoses Acute pain of left shoulder Procedures MRI SHOULDER WO IVCON LEFT MRI ANY JT UPPER EXTREMITY W/O CONTRAST MATRL Brandy Erickson PA-C [address] [place] [address] Mr Imaging [facility] Referral ID Status Reason Start Date Expiration Date Visits Requested Visits Authorized [id number] New Request Auto-Generat ed Referral 04/07/2024 05/07/2025 1 1 Specialty Diagnoses / Procedures Referred By Contac t Referred To Contact Radiology Diagnoses Asymmetrical hearing loss Sensorineural hearing loss (SNHL) of left ear with unrestricted hearing of right ear Procedures MR brain IAC with and without contrast Duran Wilson, DO [address] [address] [facility] [address] [place] [address] Phone: [phone] Referral ID Status Reason Start Date Expiration Date Visits Re quested Visits Authorized [id number] Closed 07/15/2023 09/13/2023 1 1 Specialty Diagnoses / Procedures Referred By Contac t Referred To Contact Radiology Diagnoses Arthralgia of right temporomandibular joint Procedures MR face without contrast Carrington Fritz MD [facility], [address] [place] [address] Referral ID Status Reason Start Date Expiration Date V isits Requested Visits Authorized [id number] PREG Follow-Up Needed 11/11/2023 11/10/2024 1 1 Specialty Diagnoses / Procedures Referred By Joelle de león Referred To Contact Radiology Diagnoses TMJ (temporomandibular joint disorder) Arthralgia of right temporomandibular joint Procedures MR temporomandibular joint Carrington Fritz MD [address] [place] [address], [address] [place] [address] Referral ID Status Reason Start Date Expiration Date V isits Requested Visits Authorized [id number] PREG Follow-Up Needed 11/23/2023 11/22/2024 1 1 Additional Source Comments (unrecognized sect ion and content) No Status Records FoundNo Status Records FoundNo Status Records FoundNo Status Records FoundNo Status Records FoundNo Status Records FoundNo Status Records FoundNo Status Records FoundNo Status Records FoundNo Status Records FoundNo Status Records FoundNo Status Records FoundNo Status Records FoundNo Status Records FoundNo Status Records FoundNo Status Records FoundNo Status Records FoundNo Status Records FoundNo Status Records FoundNo Status Records FoundNo Status Records FoundNo Status Records FoundNo Status Records FoundNo Status Records FoundNo Status Records Found INFORMATION SOURCE (unrecogn ized section and content) DATE CREATED AUTHOR 08/25/2017 [facility] DATE CREATED AUTHOR AUTHOR'S ORGANIZ ATION 09/01/2017 [facility] DATE CREATED AUTHOR AUTHOR'S ORGANIZ ATION 10/31/2017 [facility] DATE CREATED AUTHOR AUTHOR'S ORGANIZ ATION 11/16/2017 [facility] [place] DATE CREATED AUTHOR AUTHOR'S ORGANIZ ATION 07/30/2018 [facility] DATE CREATED AUTHOR AUTHOR'S ORGANIZ ATION 10/25/2018 [facility] DATE CREATED AUTHOR AUTHOR'S ORGANIZ ATION 10/10/2020 [facility] DATE CREATED AUTHOR AUTHOR'S ORGANIZ ATION 04/04/2021 [facility] DATE CREATED AUTHOR AUTHOR'S ORGANIZ ATION 02/26/2022 [facility] DATE CREATED AUTHOR AUTHOR'S ORGANIZ ATION 02/27/2022 [facility] DATE CREATED AUTHOR AUTHOR'S ORGANIZ ATION 04/23/2022 [facility] DATE CREATED AUTHOR AUTHOR'S ORGANIZ ATION 04/29/2022 [facility] DATE CREATED AUTHOR AUTHOR'S ORGANIZ ATION 09/24/2022 [facility] DATE CREATED AUTHOR AUTHOR'S ORGANIZ ATION 02/17/2023 [facility] DATE CREATED AUTHOR AUTHOR'S ORGANIZ ATION 08/06/2023 [facility] DATE CREATED AUTHOR AUTHOR'S ORGANIZ ATION 11/13/2023 [facility] DATE CREATED AUTHOR AUTHOR'S ORGANIZ ATION 12/31/2023 [facility] DATE CREATED AUTHOR AUTHOR'S ORGANIZ ATION 04/19/[address] [facility] DATE CREATED AUTHOR AUTHOR'S ORGANIZ ATION 05/22/2024 [facility] DATE CREATED AUTHOR AUTHOR'S ORGANIZ ATION 06/14/2024 [facility] DATE CREATED AUTHOR AUTHOR'S ORGANIZ ATION 07/13/2024 [facility] DATE CREATED AUTHOR AUTHOR'S ORGANIZ ATION 07/24/2024 [facility] DATE CREATED AUTHOR AUTHOR'S ORGANIZ ATION 08/08/2024 [facility] DATE CREATED AUTHOR AUTHOR'S ORGANIZ ATION 08/16/2024 [facility] DATE CREATED AUTHOR AUTHOR'S ORGANIZ ATION 08/21/2024 [facility] DATE CREATED AUTHOR AUTHOR'S ORGANIZ ATION 08/27/2024 [facility] DATE CREATED AUTHOR AUTHOR'S ORGANIZ ATION 09/01/2024 [facility] Source Comments (unrecognize d section and content) In the event this informatio n is protected by the Federal Confidentiality of Alcohol and Drug Abuse Patient Records regulations: The Federal rules restrict any use of the information to criminally investigate or prosecute any alcohol or drug abuse patient.[facility] Medical CenterIn the event this information is protected by the Federal Confidentiality of Alcohol and Drug Abuse Patient Records regulations: The Federal rules restrict any use of the information to criminally investigate or prosecute any alcohol or drug abuse patient.[facility] Medical CenterIn the event this information is protected by the Federal Confidentiality of Alcohol and Drug Abuse Patient Records regulations: The Federal rules restrict any use of the information to criminally investigate or prosecute any alcohol or drug abuse patient.[facility] CenterIn the event this information is protected by the Federal Confidentiality of Alcohol and Drug Abuse Patient Records regulations: The Federal rules restrict any use of the information to criminally investigate or prosecute any alcohol or drug abuse patient.[facility] CenterIn the event this information is protected by the Federal Confidentiality of Alcohol and Drug Abuse Patient Records regulations: The Federal rules restrict any use of the information to criminally investigate or prosecute any alcohol or drug abuse patient.[facility] CenterIn the event this information is protected by the Federal Confidentiality of Alcohol and Drug Abuse Patient Records regulations: The Federal rules restrict any use of the information to criminally investigate or prosecute any alcohol or drug abuse patient.[facility] CenterIn the event this information is protected by the Federal Confidentiality of Alcohol and Drug Abuse Patient Records regulations: The Federal rules restrict any use of the information to criminally investigate or prosecute any alcohol or drug abuse patient.[facility] CenterIn the event this information is protected by the Federal Confidentiality of Alcohol and Drug Abuse Patient Records regulations: The Federal rules restrict any use of the information to criminally investigate or prosecute any alcohol or drug abuse patient.[facility] CenterIn the event this information is protected by the Federal Confidentiality of Alcohol and Drug Abuse Patient Records regulations: The Federal rules restrict any use of the information to criminally investigate or prosecute any alcohol or drug abuse patient.[facility] CenterIn the event this information is protected by the Federal Confidentiality of Alcohol and Drug Abuse Patient Records regulations: The Federal rules restrict any use of the information to criminally investigate or prosecute any alcohol or drug abuse patient.[facility] CenterIn the event this information is protected by the Federal Confidentiality of Alcohol and Drug Abuse Patient Records regulations: The Federal rules restrict any use of the information to criminally investigate or prosecute any alcohol or drug abuse patient.[facility] CenterIn the event this information is protected by the Federal Confidentiality of Alcohol and Drug Abuse Patient Records regulations: The Federal rules restrict any use of the information to criminally investigate or prosecute any alcohol or drug abuse patient.[facility] CenterIn the event this information is protected by the Federal Confidentiality of Alcohol and Drug Abuse Patient Records regulations: The Federal rules restrict any use of the information to criminally investigate or prosecute any alcohol or drug abuse patient.[facility] CenterIn the event this information is protected by the Federal Confidentiality of Alcohol and Drug Abuse Patient Records regulations: The Federal rules restrict any use of the information to criminally investigate or prosecute any alcohol or drug abuse patient.[facility] CenterIn the event this information is protected by the Federal Confidentiality of Alcohol and Drug Abuse Patient Records regulations: The Federal rules restrict any use of the information to criminally investigate or prosecute any alcohol or drug abuse patient.[facility] CenterIn the event this information is protected by the Federal Confidentiality of Alcohol and Drug Abuse Patient Records regulations: The Federal rules restrict any use of the information to criminally investigate or prosecute any alcohol or drug abuse patient.[facility] CenterIn the event this information is protected by the Federal Confidentiality of Alcohol and Drug Abuse Patient Records regulations: The Federal rules restrict any use of the information to criminally investigate or prosecute any alcohol or drug abuse patient.[facility] CenterIn the event this information is protected by the Federal Confidentiality of Alcohol and Drug Abuse Patient Records regulations: The Federal rules restrict any use of the information to criminally investigate or prosecute any alcohol or drug abuse patient.[facility] CenterIn the event this information is protected by the Federal Confidentiality of Alcohol and Drug Abuse Patient Records regulations: The Federal rules restrict any use of the information to criminally investigate or prosecute any alcohol or drug abuse patient.[facility] CenterIn the event this information is protected by the Federal Confidentiality of Alcohol and Drug Abuse Patient Records regulations: The Federal rules restrict any use of the information to criminally investigate or prosecute any alcohol or drug abuse patient.[facility] CenterIn the event this information is protected by the Federal Confidentiality of Alcohol and Drug Abuse Patient Records regulations: The Federal rules restrict any use of the information to criminally investigate or prosecute any alcohol or drug abuse patient.[facility] CenterIn the event this information is protected by the Federal Confidentiality of Alcohol and Drug Abuse Patient Records regulations: The Federal rules restrict any use of the information to criminally investigate or prosecute any alcohol or drug abuse patient.[facility] CenterIn the event this information is protected by the Federal Confidentiality of Alcohol and Drug Abuse Patient Records regulations: The Federal rules restrict any use of the information to criminally investigate or prosecute any alcohol or drug abuse patient.[facility] CenterIn the event this information is protected by the Federal Confidentiality of Alcohol and Drug Abuse Patient Records regulations: The Federal rules restrict any use of the information to criminally investigate or prosecute any alcohol or drug abuse patient.[facility] CenterIn the event this information is protected by the Federal Confidentiality of Alcohol and Drug Abuse Patient Records regulations: The Federal rules restrict any use of the information to criminally investigate or prosecute any alcohol or drug abuse patient.[facility] CenterIn the event this information is protected by the Federal Confidentiality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 02/17/24 Cds Sales Advisor Relationship Specialty Start Date End Date Carrington Fritz MD [address] [place] [address], [address] [place] [address] Referring Internal Medicine 11/26/23 Cds Sales Advisor Relationship Specialty Start Date End Date Carrnigton Fritz MD [address] [place] [address], [address] [place] [address] Referring Internal Medicine 11/26/23 Cds Sales Advisor Relationship Specialty Start Date End Date Colette Almaguer, [employer] [address] [place] [address] PCP - General Nurse Practitioner 07/20/23 08/15/23 Cds Sales Advisor Relationship Specialty Start Date End Date Carrington Fritz MD [address] [place] [address], [address] [place] [address] PCP - General Pediatrics 11/11/23 Cds Sales Advisor Relationship Specialty Start Date End Date Carrington Fritz MD [address] [place] [address], [address] [place] [address] PCP - General Pediatrics 11/11/23 Cds Sales Advisor Relationship Specialty Start Date End Date Carrington Fritz MD [address] [place] [address], [address] [place] [address] PCP - General Pediatrics 11/11/23 Cds Sales Advisor Relationship Specialty Start Date End Date Carrington Fritz MD [address] [place] [address], [address] [place] [address] PCP - General Pediatrics 11/11/23 Cds Sales Advisor Relationship Specialty Start Date End Date Carrington Fritz MD [address] [place] [address], [address] [place] [address] PCP - General Pediatrics 11/11/23 Cds Sales Advisor Relationship Specialty Start Date End Date Carrington Fritz MD [address] [place] [address], [address] [place] [address] PCP - General Pediatrics 11/11/23 Cds Sales Advisor Relationship Specialty Start Date End Date Carrington Fritz MD [address] [place] [address], [address] [place] [address] PCP - General Pediatrics 11/11/23 Cds Sales Advisor Relationship Specialty Start Date End Date Carrington Fritz MD [address] [place] [address], [address] [place] [address] PCP - General Pediatrics 11/11/23 Cds Sales Advisor Relationship Specialty Start Date End Date Carrington Fritz MD [address] [place] [address], [address] [place] [address] PCP - General Pediatrics 11/11/23 Cds Sales Advisor Relationship Specialty Start Date End Date Carrington Fritz MD [address] [place] [address], [address] [place] [address] PCP - General Pediatrics 11/11/23 Cds Sales Advisor Relationship Specialty Start Date End Date Carrington Fritz MD [address] [place] [address], [address] [place] [address] PCP - General Pediatrics 11/11/23 Cds Sales Advisor Relationship Specialty Start Date End Date Carrington Fritz MD [address] [place] [address], [address] [place] [address] PCP - General Pediatrics 02/17/24 Cds Sales Advisor Relationship Specialty Start Date End Date Carrington Fritz MD [address] [place] [address], [address] [place] [address] Referring Internal Medicine 11/26/23 Cds Sales Advisor Relationship Specialty Start Date End Date Carrington Fritz MD [address] [place] [address], [address] [place] [address] Referring Internal Medicine 11/26/23 Cds Sales Advisor Relationship Specialty Start Date End Date Carrington Fritz MD [address] [place] [address], [address] [place] [address] Referring Internal Medicine 11/26/23 Cds Sales Advisor Relationship Specialty Start Date End Date Carrington Fritz MD [address] [place] [address], [address] [place] [address] Referring Internal Medicine 11/26/23 Cds Sales Advisor Relationship Specialty Start Date End Date Carrington Fritz MD [address] [place] [address], [address] [place] [address] Referring Internal Medicine 11/26/23 Cds Sales Advisor Relationship Specialty Start Date End Date Carrington Fritz MD [address] [place] [address], [address] [place] [address] PCP - General Pediatrics 02/17/24 Cds Sales Advisor Relationship Specialty Start Date End Date Carrington Fritz MD [address] [place] [address], [address] [place] [address] PCP - General Pediatrics 02/17/24 Cds Sales Advisor Relationship Specialty Start Date End Date Carrington Fritz MD [address] [place] [address], [address] [place] [address] Referring Internal Medicine 11/26/23 Cds Sales Advisor Relationship Specialty Start Date End Date Carrington Fritz MD [address] [place] [address], [address] [place] [address] Referring Internal Medicine 11/26/23 Cds Sales Advisor Relationship Specialty Start Date End Date Carrington Fritz MD [address] [place] [address], [address] [place] [address] Referring Internal Medicine 11/26/23 Cds Sales Advisor Relationship Specialty Start Date End Date Carrington Fritz MD [address] [place] [address], [address] [place] [address] PCP - General Pediatrics 02/17/24 Cds Sales Advisor Relationship Specialty Start Date End Date Carrington Fritz MD [address] [place] [address], [address] [place] [address] Referring Internal Medicine 11/26/23 Cds Sales Advisor Relationship Specialty Start Date End Date Carrington Fritz MD [address] [place] [address], [address] [place] [address] Referring Internal Medicine 11/26/23 Cds Sales Advisor Relationship Specialty Start Date End Date Carrington Fritz MD [address] [place] [address], [address] [place] [address] PCP - General Pediatrics 02/17/24 Cds Sales Advisor Relationship Specialty Start Date End Date Carrington Fritz MD [address] [place] [address], [address] [place] [address] PCP - General Pediatrics 02/17/24 Cds Sales Advisor Relationship Specialty Start Date End Date Carrington Fritz MD [address] [place] [address], [address] [place] [address] PCP - General Internal Medicine 06/20/24 Carrington Fritz MD [address] [place] [address], [address] [place] [address] Referring Internal Medicine 11/26/23 Cds Sales Advisor Relationship Specialty Start Date End Date Carrington Firtz MD [address] [place] [address], [address] [place] [address] PCP - General Internal Medicine 06/20/24 Carrington Fritz MD [address] [place] [address], [address] [place] [address] Referring Internal Medicine 11/26/23 Cds Sales Advisor Relationship Specialty Start Date End Date Carrington Fritz MD [address] [place] [address], [address] [place] [address] PCP - General Internal Medicine 06/20/24 Carrington Fritz MD [address] [place] [address], [address] [place] [address] Referring Internal Medicine 11/26/23 Cds Sales Advisor Relationship Specialty Start Date End Date Carrington Fritz MD [address] [place] [address], [address] [place] [address] PCP - General Internal Medicine 06/20/24 Carrington Fritz MD [address] [place] [address], [address] [place] [address] Referring Internal Medicine 11/26/23 Cds Sales Advisor Relationship Specialty Start Date End Date Carmen Mcadams MD [address] [facility] [address] [place] [address] PCP - General Otolaryngology 09/20/23 Cds Sales Advisor Relationship Specialty Start Date End Date Babs Cat DMD [address] [place] [address] [place] [address] Fellow Dentistry 10/09/23 Lyle Bailey DMD, MD [address] [place] [address] Physician Oral & Maxillofacial Surgery 04/08/24 Cds Sales Advisor Relationship Specialty Start Date End Date Babs Cat DMD [address] [place] [address] [place] [address] Fellow Dentistry 10/09/23 Lyle Bailey DMD, MD [address] [place] [address] Physician Oral & Maxillofacial Surgery 04/08/24 Cds Sales Advisor Relationship Specialty Start Date End Date Carrington Fritz MD [address] [place] [address], [address] [place] [address] PCP - General Internal Medicine 06/20/24 Carrington Fritz MD [address] [place] [address], [address] [place] [address] Referring Internal Medicine 11/26/23 Cds Sales Advisor Relationship Specialty Start Date End Date Carrington Fritz MD [address] [place] [address], [address] [place], [place] [id number] PCP - General Internal Medicine 06/20/24 Carrington Fritz MD [address] [place] [address], [address] [place], [place] [address] Referring Internal Medicine 11/26/23 Cds Sales Advisor Relationship Specialty Start Date End Date Carrington Fritz MD [address] [place] [address], [address] [place] [address] PCP - General Internal Medicine 06/20/24 Carrington Fritz MD [address] [place] [address], [address] [place] [address] Referring Internal Medicine 11/26/23 Cds Sales Advisor Relationship Specialty Start Date End Date Carrington Fritz MD [address] [place] [address], [address] [place] [address] PCP - General Internal Medicine 06/20/24 Carrington Fritz MD [address] [place] [address], [address] [place] [address] Referring Internal Medicine 11/26/23 Cds Sales Advisor Relationship Specialty Start Date End Date Carrington Fritz MD [address] [place] [address], [address] [place] [address] PCP - General Pediatrics 02/17/24 Cds Sales Advisor Relationship Specialty Start Date End Date Carrington Fritz MD [address] [place] [address], [address] [place] [address] PCP - General Internal Medicine 06/20/24 Carrington Fritz MD [address] [place] [address], [address] [place] [address] Referring Internal Medicine 11/26/23 Cds Sales Advisor Relationship Specialty Start Date End Date Carrington Fritz MD [address] [place] [address], [address] [place] [address] PCP - General Internal Medicine 06/20/24 Carrington Fritz MD [address] [place] [address], [address] [place] [address] Referring Internal Medicine 11/26/23 Cds Sales Advisor Relationship Specialty Start Date End Date Carrington Fritz MD [address] [place] [address], [address] [place] [address] PCP - General Pediatrics 02/17/24 Cds Sales Advisor Relationship Specialty Start Date End Date Carrington Fritz MD [address] [place] [address], [address] [place] [address] PCP - General Internal Medicine 06/20/24 [facility] [address] [place] [address], [address] [place] [address] Referring Internal Medicine 11/26/23 Cds Sales Advisor Relationship Specialty Start Date End Date Home Garner MD [address] [place] [address] PCP - General 09/21/22 FOR RECORDS PERTAINING TO PATIENTS WHO ARE OR HAVE BEEN ENROLLED IN A CHEMICAL DEPENDENCY/SUBSTANCEABUSE PROGRAM, SOME INFORMATION MAY BE OMITTED. This clinical summary was aggregated from multiple sources. Caution should be exercised in using it in the provision of clinical care. This summary normalizes information from multiple sources, and as a consequence, information in this document may materially change the coding, format and clinical context of patient data. In addition, data may be omitted in some cases. CLINICAL DECISIONS SHOULD BE BASED ON THE PRIMARY CLINICAL RECORDS. [facility]. provides no warranty or guarantee of the accuracy or completeness of information in this document.
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
--- NOTE | 2024-09-02 12:03 | XR_ITS ---
[facility] [place] [id number] Patient Name: RAHEEM CODY MRN: [facility]:[id number] date: 1975 Sex: M Assigned Patient Location: ER Current Patient Location: ER Accession/Order Number: [id number] Exam Date: 09/02/2024 12:36 Report Date: 09/02/2024 12:38 At the request of: REZA GONCALVES MD Procedure: XR ribs LT min 3V w CXR1V PA CHEST WITH LEFT RIBS: CLINICAL HISTORY: Fall COMPARISON: None FINDINGS: Ninth rib fracture. Minimal left basilar pleural-parenchymal thickening. Mild haziness right lung base. No pneumothorax. XR/XR ribs LT min 3V w CXR1V IMPRESSION: Ninth rib fracture. No pneumothorax. Minimal bibasilar atelectasis. Impression dictated by: Tate Duncan M.D. 09/02/2024 12:38 PM Dictation Location: [place] [address] Electronically authenticated by: [id number] Y Date: 09/02/2024 12:38
--- NOTE | 2024-09-02 12:03 | XR_ITS ---
The [address] [address] Patient Name: RAHEEM CODY MRN: [facility]:[id number] date: 1975 Sex: M Assigned Patient Location: ER Current Patient Location: ER Accession/Order Number: [id number] Exam Date: 09/02/2024 12:35 Report Date: 09/02/2024 12:36 At the request of: REZA GONCALVES MD Procedure: XR shoulder LT min 2V LEFT SHOULDER - - 3 views CLINICAL HISTORY: Fall COMPARISON: None FINDINGS: Minimal spurring inferior glenoid. No fracture-dislocation. Joint spaces are otherwise preserved. Left lung apex is clear. XR/XR shoulder LT min 2V IMPRESSION: No acute bony process. Impression dictated by: Tate Duncan M.D. 09/02/2024 12:36 PM Dictation Location: [place] [address] Electronically authenticated by: [id number] Y Date: 09/02/2024 12:36
[2024-09-02 12:40] VITALS: O2SAT 98
--- NOTE | 2024-09-02 12:41 | PC.NURSE ---
Pt reports pain with deep inspiration and feeling like he cannot take a deep breath, SPO2 95% on RA. RN informed Dr. Newton who instructed to place pt on 2L O2 via NC.
== END 2024-09-02 13:36 | disposition home or self-care (01) ==
PROVIDERS: Emergency Provider Emergency Medicine
DX: S22.32XA Fracture of one rib, left side, initial encounter for closed fracture (principal); V19.3XXA Pedal cyclist (driver) (passenger) injured in unspecified nontraffic accident, initial encounter; M25.512 Pain in left shoulder; R07.89 Other chest pain
CPT/HCPCS: 71101; 73030; 94667; 99283

== ENCOUNTER 2024-12-20 12:45 | Emergency (ER) | payer OTHER, SELFPAY ==
--- OUTSIDE RECORDS SUMMARY | 2023-12-27 09:40 | XMS_ITS ---
Author Organization [facility] Address [address] [place] [address] Care Team Providers Care Batch Records Clerk Name Role Phone Colette Vuong Primary Care Provider UnavailAlessandro Aguilera [phone] REASON FOR VISIT BILAT OM Encounters Encounter Location Date Provider Diagnosis [facility] [address] [place] [phone] 12/27/2023 Alessandro Germain Plan Of Treatment No Information Progress Notes * RAHEEM CODY ADOB:1975 (49 yo M)Acc No.[id number]:12/27/2023 Patient: RAHEEM MARTINEZ Provider: Nida Germain DPM :1975 A ge:48 Y S ex:Male Date:12/27/2023 Address:[address] [place], [place] [id number] Pcp:Colette Vuong Subjective: * Chief Complaints: * 1 . BILAT OM. * Medical History: Objective: * Vitals: Assessment: Plan: * Treatment: Forms: * Images: * Electronic signature of Diana Germain DPM on 12/20/2024 at 12:51 PM EDT Sign off status: Pending * Provider: Nida Germain DPM Date: Generated for Printi ng/Faxing/eTransmitting on: 12:51 PM EDT
--- OUTSIDE RECORDS SUMMARY | 2024-01-03 10:10 | XMS_ITS ---
Author Organization [facility] Address [address] [place] [address] Care Team Providers Care Still Worker Helper Name Role Phone Colette Vuong Primary Care Provider UnavailAlessandro Aguilera [phone] REASON FOR VISIT BILAT OM Encounters Encounter Location Date Provider Diagnosis [facility] [address] [place] [phone] 01/03/2024 Alessandro Germain Plan Of Treatment No Information Progress Notes * RAHEEM CODY ADOB:1975 (49 yo M)Acc No.[id number]:01/03/2024 Patient: RAHEEM MARTINEZ Provider: Nida Germain DPM :1975 A ge:48 Y S ex:Male Date:01/03/2024 Address:[address] [place], [place] [phone] Pcp:Colette Vuong Subjective: * Chief Complaints: * 1 . BILAT OM. * Medical History: Objective: * Vitals: Assessment: Plan: * Treatment: Forms: * Images: * Electronic signature of Diana Germain DPM on 12/20/2024 at 12:52 PM EDT Sign off status: Pending * Provider: Nida Germain DPM Date: Generated for Printi ng/Faxing/eTransmitting on: 12:52 PM EDT
--- OUTSIDE RECORDS SUMMARY | 2024-01-06 10:10 | XMS_ITS ---
Author Organization [facility] Address [address] [place] [address] Care Team Providers Care Senior Government Program Analyst Name Role Phone Colette Vuong Primary Care Provider UnavailAlessandro Aguilera [phone] REASON FOR VISIT BILAT OM Encounters Encounter Location Date Provider Diagnosis [facility] [address] [facility] [address] [address] 01/06/2024 Alessandro Germain Plan Of Treatment No Information Progress Notes * RAHEEM CODY ADOB:1975 (49 yo M)Acc No.[id number]:01/06/2024 Patient: RAHEEM MARTINEZ Provider: Nida Germain DPM :1975 A ge:48 Y S ex:Male Date:01/06/2024 Address:[address] [place], [place] [id number] Pcp:Colette Vuong Subjective: * Chief Complaints: * 1 . BILAT OM. * Medical History: Objective: * Vitals: Assessment: Plan: * Treatment: Forms: * Images: * Electronic signature of Diana Germain DPM on 12/20/2024 at 12:52 PM EDT Sign off status: Pending * Provider: Nida Germain DPM Date: Generated for Printi ng/Faxing/eTransmitting on: 12:52 PM EDT
--- OUTSIDE RECORDS SUMMARY | 2024-04-13 11:50 | XMS_ITS ---
Author Organization [facility] Address [address] [place] [address] Care Team Providers Care Riveter Helper Name Role Phone Colette Vuong Primary Care Provider Unavailab Alessandro Felder Unavailable [phone] REASON FOR VISIT LEFT GREAT TOE ISSUES Encounters Encounter Location Date Provider Diagnosis [facility] [facility] [address] [address] [place] [address] [address] 04/13/2024 Alessandro Germain Plan Of Treatment No Information Progress Notes * RAHEEM CODY ADOB:1975 (49 yo M)Acc No.[id number]:04/13/2024 Patient: RAHEEM MARTINEZ Provider: Nida Germain DPM :1975 A ge:49 Y S ex:Male Date:04/13/2024 Address:[address] [place], [place] [id number] Pcp:Colette Vuong Subjective: * Chief Complaints: * 1 . LEFT GREAT TOE ISSUES. * Medical History: Objective: * Vitals: Assessment: Plan: * Treatment: Forms: * Images: * Electronic signature of Diana Germain DPM on 12/20/2024 at 12:53 PM EDT Sign off status: Pending * Provider: Nida Germain DPM Date: 0 04/13/2024 Generated for Printi ng/Fakentrellg/eTransmitting on: 1 12:53 PM EDT
--- OUTSIDE RECORDS SUMMARY | 2024-12-06 13:00 | XMS_ITS | Encounter Summary ---
Author Organization [facility] Address [address] [address] Phone Care Team Providers Care Elevator Constructor Name Role Phone Self, Self Primary Care Provider Unavailabl e Reason for Visit * Reason Comments New Patient Encounter Details Date Type Department Care Team (Late st Contact Info) Description 12/06/2024 1:00 PM EDT [facility] Visit [facility] [address] [place] [phone] Sebastien Warren [address] [place] [phone] Alonso Ford DDS [address] [phone] Encounter for dental examination (Primary Dx); Edentulous Social History Tobacco Use Types Packs/Day Years Used Date Smoking Tobacco: Every Day Cigarettes Passive Smoke Exposure: Current Smokeless Tobacco: Current Tobacco Cessation:Ready to Q uit: No; Counseling Given: Yes Alcohol Use Standard Drinks/Week Comments Not Currently 0 (1 standard drink = 0.6 oz pur e alcohol) Sex and Gender Information Value Date Recorded Sex Assigned at Not on file Legal Sex Male 7:31 AM EST Gender Identity Male 02/08/2024 4:10 PM EST Sexual Orientation Straight 02/08/2024 4: 10 PM EST documented as of this encounter Last Filed Vital Signs Vital Sign Reading Time Taken Comments Blood Pressure 120/69 12/06/2024 1:05 PM EDT Pulse 81 12/06/2024 1:05 PM EDT Temperature - - Respiratory Rate - - Oxygen Saturation - - Inhaled Oxygen Concentration - - Weight - - Height - - Body Mass Index - - documented in this encounter Patient Instructions * Patient Instructions* Sebastien Figueroanger - 12/06/2024 1:00 PM EDT Your Oral Cancer Risk Report Your Risk Level: Low Moderate High X MINIMAL RECOMMENDATIONS: Change Recall interval for soft tissue exam Education given on HPV infection in oral cavity Education given on risk of oral cancer Education given on alcohol and oral cancer Recommendation for tobacco cessation Recommended use of sunblocking documented in this encounter Progress Notes * Sebastien Briana - 12/06/2024 1:00 PM EDT Dental Exam 12/06/2024 Dispatch Clerk Needed: No Chief Complaint Patient presents with New Patient History of Present Illness Past Medical History[1] Current Outpatient Medications Medication Sig Acetaminophen 325 MG tablet Take 200 mg by mouth every 6 hours as needed for Severe Pain (x3 day). baclofen 10 MG tablet Take 1 tablet by mouth 3 times daily. buprenorphine 2 mg/naloxone 0.5 mg (SUBOXONE) SL film Place 1 strip under tongue daily. clonazePAM 1 MG tablet Take 1 tablet by mouth 2 times daily. Cyanocobalamin 1000 MCG/ML Kit Inject as directed. DULoxetine [address] Particles capsule DR Take 1 capsule by mouth daily. Ibuprofen 200 MG tablet Take 4 tablets by mouth every 6 hours as needed for Mild Pain (x3 per day). Ketoconazole 2 % Shampoo shampoo Apply 1 Application topically 3 times weekly. Apply topically to wet hair 3-4 times a week omeprazole [address] capsule Take 1 capsule by mouth daily. OXcarbazepine 150 MG tablet Take 1 tablet by mouth 2 times daily. Polyethylene glycol 17 GM/SCOOP Powder powder Take 17 g by mouth daily. pregabalin 25 MG capsule Take 8 capsules by mouth 3 times daily. triamcinolone 0.025 % Cream cream Apply 1 Application topically 2 times daily. atomoxetine (Strattera) 40 MG capsule Take 1 capsule by mouth daily. (Patient not taking: Reported on 12/06/2024) Fluconazole 100 MG tablet Take 1 tablet by mouth daily. (Patient not taking: Reported on 12/06/2024) hydrOXYzine pamoate (Vistaril) 50 MG capsule Take 1 capsule by mouth 3 times daily as needed for Anxiety. (Patient not taking: Reported on 12/06/2024) QUEtiapine 100 MG tablet Take 2 tablets by mouth at bedtime. (Patient not taking: Reported on 12/06/2024) zolpidem 10 MG tablet Take 1 tablet by mouth at bedtime as needed for Sleep for up to 7 days. (Patient not taking: Reported on 12/06/2024) Vitals: 12/06/24 1305 BP: 120/69 Pulse: 81 Allergies[2] Tobacco Use: High Risk (12/06/2024) Patient History Smoking Tobacco Use: Every Day Smokeless Tobacco Use: Every Day Passive Exposure: Current Assessment: ASA Grade: ASA 3 - Patient with moderate systemic disease with functional limitations Images and Retakes Bitewings: 0 Vertical Bitewings: 0 PA: 0 Panorex: 0 Retakes: 0 Oral Cancer Risk Assessment: Oral cancer risk score: 11 Oral cancer risk level: High Risk Head and Neck Exam Extraoral Exam: Normal: general appearance, head, skin, eyes, ears, nose, lymphatic, salivary glands and lips Abnormal: TMJ, neck and facial symmetry Patient has been experiencing severe jaw pain for the past 1.5 years. Mandible is is deviated to the patient's right when closing. Patient's mandible appears deviated extraorally. TMJ on patient's left is painful to touch and swollen. Intraoral Exam: Normal: labial mucosa, buccal mucosa, tonsils/oropharynx, floor of mouth, gums and frena Abnormal: palate, tongue and alveolar process Coated tongue & palate. Hyperkeratosis on mandibular left alveolar ridge. Diagnosis: 1. Encounter for dental examination 2. Edentulous Procedure Details D0150 - COMPREHENSIVE ORAL EVAL - NEW/EST PATIENT D1330 - ORAL HYGIENE INSTRUCTIONS Discussion with Patient Included - Patient presented with complete edentulism and experiencing TMJ related pain. Patient stated the pain occurs while swallowing and has been persistent for 1.5 years.Patient did not bring current dentures and admits to not wearing them unless briefly to eat. Patient has had a maxillary complete denture since 2014 and mandibular complete denture since 2022. Panoramic radiograph and soft tissue examination did not reveal an immediate or definitive cause to the jaw pain. Dr. Clement recommended scheduling the next visit with prost to evaluate the current dentures. Patient had opportunity to ask questions and left the appointment in good spirits. Next Visit: Evaluation of dentures with Prost. Encounter Providers Dental Student: Sebastien Warren [1] Past Medical History: Diagnosis Date Injury to mouth Swelling TMJ dysfunction [2] Allergies Allergen Reactions Penicillins documented in this encounter Plan of Treatment Not on file documented as of this encounter Procedures Procedure Name Priority Date/Time Associated Diagnosis Comments ORAL HYGIENE INSTRUCTIONS Routine 2024 1:00 PM EDT Encounter for dental examination COMPREHENSIVE ORAL EVAL - NEW/EST PATIENT Routine 12/06/2024 1:00 PM EDT Encounter for dental examination Hood COMPLETE DENTURE Routine 12/06/2024 12:00 AM EDT Max COMPLETE DENTURE Routine 12/06/2024 12:00 AM EDT 32 EXTRACTION Routine 12/06/2024 12:00 AM EDT 31 EXTRACTION Routine 12/06/2024 12:00 AM EDT 30 EXTRACTION Routine 12/06/2024 12:00 AM EDT 29 EXTRACTION Routine 12/06/2024 12:00 AM EDT 28 EXTRACTION Routine 12/06/2024 12:00 AM EDT 27 EXTRACTION Routine 12/06/2024 12:00 AM EDT 26 EXTRACTION Routine 12/06/2024 12:00 AM EDT 25 EXTRACTION Routine 12/06/2024 12:00 AM EDT 24 EXTRACTION Routine 12/06/2024 12:00 AM EDT 23 EXTRACTION Routine 12/06/2024 12:00 AM EDT 22 EXTRACTION Routine 12/06/2024 12:00 AM EDT 21 EXTRACTION Routine 12/06/2024 12:00 AM EDT 20 EXTRACTION Routine 12/06/2024 12:00 AM EDT 19 EXTRACTION Routine 12/06/2024 12:00 AM EDT 18 EXTRACTION Routine 12/06/2024 12:00 AM EDT 17 EXTRACTION Routine 12/06/2024 12:00 AM EDT 15 EXTRACTION Routine 12/06/2024 12:00 AM EDT 16 EXTRACTION Routine 12/06/2024 12:00 AM EDT 14 EXTRACTION Routine 12/06/2024 12:00 AM EDT 13 EXTRACTION Routine 12/06/2024 12:00 AM EDT 12 EXTRACTION Routine 12/06/2024 12:00 AM EDT 11 EXTRACTION Routine 12/06/2024 12:00 AM EDT 10 EXTRACTION Routine 12/06/2024 12:00 AM EDT 9 EXTRACTION Routine 12/06/2024 12:00 AM EDT 8 EXTRACTION Routine 12/06/2024 12:00 AM EDT 7 EXTRACTION Routine 12/06/2024 12:00 AM EDT 6 EXTRACTION Routine 12/06/2024 12:00 AM EDT 5 EXTRACTION Routine 12/06/2024 12:00 AM EDT 4 EXTRACTION Routine 12/06/2024 12:00 AM EDT 3 EXTRACTION Routine 12/06/2024 12:00 AM EDT 2 EXTRACTION Routine 12/06/2024 12:00 AM EDT 1 EXTRACTION Routine 12/06/2024 12:00 AM EDT documented in this encounter Visit Diagnoses Diagnosis Encounter for dental examination- Primary Dental examination Edentulous Anodontia documented in this encounter Care Teams Elevator Constructor Relationship Specialty Start Date End Date Self, Self PCP - General Other 05/18/23 documented as of this encounter
--- OUTSIDE RECORDS SUMMARY | 2024-12-06 13:45 | XMS_ITS | Encounter Summary ---
Author Organization [facility] Address [address] [address] Phone Care Team Providers Care Air Pollution Specialist Name Role Phone Self, Self Primary Care Provider Unavailabl e Reason for Visit * Reason Comments Dental Imaging Encounter Details Date Type Department Care Team (Latest Contact Info) Description 12/06/2024 1:45 PM EDT Office Visit [facility] [address] [phone] Chaya Mittal Encounter for dental examination (Primary Dx) Social History Tobacco Use Types Packs/Day Years Used Date Smoking Tobacco: Every Day Cigarettes Passive Smoke Exposure: Current Smokeless Tobacco: Current Alcohol Use Standard Drinks/Week Comments Not Currently 0 (1 standard drink = 0.6 oz pur e alcohol) Sex and Gender Information Value Date Recorded Sex Assigned at Not on file Legal Sex Male 7:31 AM EST Gender Identity Male 02/08/2024 4:10 PM EST Sexual Orientation Straight 02/08/2024 4: 10 PM EST documented as of this encounter Progress Notes * Chaya Mittal - 12/06/2024 1:45 PM EDT Exposed 1 ames 0 retake documented in this encounter Plan of Treatment Not on file documented as of this encounter Procedures Procedure Name Priority Date/Time Associated Diagnosis Comments Full PANORAMIC RADIOGRAPHIC IMAGE Routine 12/06/2024 1:45 PM EDT Encounter for dental examination documented in this encounter Visit Diagnoses Diagnosis Encounter for dental examination- Primary Dental examination documented in this encounter Care Teams Air Pollution Specialist Relationship Specialty Start Date End Date Self, Self PCP - General Other 05/18/23 documented as of this encounter
--- OUTSIDE RECORDS SUMMARY | 2024-12-06 19:21 | XMS_ITS | Encounter Summary ---
Demographics Address [address] [place] [address] Mobile Phone Email Address Preferred Language Singaporean Marital Status Single Presybeterian Affiliation Unknown Race White Ethnic Group Not or Lati no Author Organization [facility] tem Address [id number] [address] [place] [address] Care Team Providers Care Nitrogen Operator Name Role Phone Carrington Fritz MD Primary Care Provider [phone] Reason for Visit * Reason Comments Jaw Pain Pt reports jaw, neck , and head pain ongoing for over a year. Encounter Details Date Type Department Care Team (Late st Contact Info) Description 12/06/2024 7:21 PM EDT - 12/06/2024 7:54 PM EDT Emergency [facility] - Emergency [address] [place] [id number] Jaw pain (Primary Dx) Discharge Disposition: Home Social History Tobacco Use Types Packs/Day Years Used Date Smoking Tobacco: Some Days Cigarettes Started: 10/18/2024; Last attempted to quit: 02/16/1994 Smokeless Tobacco: Former Alcohol Use Standard [...] got money to buy more. Never True 12/06/2024 Within the past 12 months th e food we bought just didn't last and we didn't have money to get more. Never True 12/06/2024 Sex and Gender Information Value Date Recorded Sex Assigned at Not on file Legal Sex Male 1:06 PM EST Gender Identity Not on file Sexual Orientation Not on file documented as of this encounter Last Filed Vital Signs Vital Sign Reading Time Taken Comments Blood Pressure 126/75 12/06/2024 7:48 PM EDT Pulse 95 12/06/2024 7:48 PM EDT Temperature 36.9 C (98.4 F) 12/06/2024 7:26 PM EDT Respiratory Rate 18 12/06/2024 7:48 PM EDT Oxygen Saturation 98% 12/06/2024 7:48 PM EDT Inhaled Oxygen Concentration - - Weight 73.5 kg (162 lb) 12/06/2024 7:26 PM EDT Height 177.8 cm (5' 10 ) 12/06/2024 7:26 PM EDT Body Mass Index 23.24 12/06/2024 7:26 PM EDT documented in this encounter Discharge Instructions * Discharge Instructions* Sheila Nugent RESTAURANT CULINARY MANAGER-COORDINATOR HOTELS - 12/06/2024 7:43 PM EDT Thank you for choosing us for your medical care. We know you have a choice, and we appreciate you choosing us for your medical concerns! You may receive a survey from the hospital about your visit. We very much appreciate your comments and concerns. Please read all medication insert instructions and side effects when dispensed by the pharmacy. Every medication has side effects, and you may experience any of them. Please call the emergency room with any questions or concerns you have. Please call your doctor for outpatient follow up and recommendations. The emergency room cannot replace ongoing care, and it is important for your personal physician to evaluate you and monitor your health. Return to the ER for increased pain, fever > 101.5, vomiting twice, or any concern you deem emergent. documented in this encounter Medications at Time of Discharge baclofen (LIORESAL) 10 mg tablet 1 twice a day for 2 weeks and then One 4 times a day 11/02/2024 buprenorphine-na loxone (SUBOXONE) 8-2 mg film 08/17/2024 clonazePAM (KlonoPIN) 1 mg tabletIndication s:Anxiety Take 1 tablet (1 mg total) by mouth 2 (two) times a day as needed for anxiety. 60 tablet 11/22/2024 DULoxetine (CYMBALTA) 30 mg capsule Take 1 capsule (30 mg total) by mouth in the morning. 08/17/2024 ibuprofen (MOTRIN) 800 mg tablet Take 1 tablet (800 mg total) by mouth 2 (two) times a day as needed for pain. 60 tablet 1 11/28/2024 ketoconazole (NIZORAL) 2 % shampooIndicatio ns:Seborrhea capitis Apply 1 Application topically 2 (two) times a week. Apply to damp skin, lather, leave on 5 minutes, and rinse 120 mL 10/23/2024 mupirocin (BACTROBAN) 2 % ointment Apply 1 Application topically 3 (three) times a day. 22 g 06/01/2024 naloxone (NARCAN) 4 mg/actuation spray,non-aeroso l nasal spray 08/17/2024 omeprazole (PriLOSEC) 40 mg capsule Take 1 capsule (40 mg total) by mouth in the morning. 11/07/2024 pregabalin (LYRICA) 200 mg capsuleIndicatio ns:TMJ (temporomandibul ar joint disorder) Take 1 capsule (200 mg total) by mouth 3 (three) times a day. 90 capsule 1 11/23/2024 documented as of this encounter ED Notes * Yoli Siegel, RN - 12/15/2024 10:35 AM EDT Phone call from pt stating that he was very unhappy with his visit on 12/06/24. Pt states that he was upset that Dr Sebastian dx him with TMJ, pt states it is not TMJ it is his head. Looking through pt'sencounters he has been tx for TMJ for almost a year, currently being treated by dentist for TMJ. Ptasked that we contact all first responders and 911 advising them that he does not want to come to this hospital and he does not want to see Dr. Sebastian. This RN advised pt that is not something that we can do, it is his choice if he does not want to be tx at this hospital. Pt again states that he ishaving a headache, n/v, and loss of appetite. Pt was advised to contact PCP. Pt wishes to speak to the director of the ED. This RN will forward pt complaint to ED director. * Sheila Nugent APRN-KARUNA - 12/06/2024 7:40 PM EDT Images from the original note were not included. [facility] - EMERGENCY Pt Name: Garrison Hodges Jr. Birthdate: 1975 Chief Complaint: Chief Complaint Patient presents with Jaw Pain Pt reports jaw, neck, and head pain ongoing for over a year. History of Present Illness: Garrison Hodges Jr. Is a 49-year-old male that presents to ED with complaint of jaw pain and head pain. Patient has a extensive history of TMJ. He was seen at the [facility] dentist street today they did imaging and diagnosed him with TMJ along with another abnormality. He states they want to do surgery next week. He is here today saying he has pulling from his jaw into his head. He is requesting additional imaging. I explained that this is chronic and he has had MRIs, CTs and imaging today done at [facility] therefore I do not believe he requires additional imaging at this time. I suggested possibly a muscle relaxer. States he takes baclofen but has not gotten any relief. Has a history of narcotic abuse. Patient saw dental at [facility] today below is the notes from that visit. Discussion with Patient Included - Patient presented with complete edentulism and experiencing TMJrelated pain. Patient stated the pain occurs while swallowing and has been persistent for 1.5 years. Patient did not bring current dentures and admits [...] and left the appointment in good spirits. History provided by: Patient flight test supervisor used: No Past Medical History: Past Medical History: Diagnosis Date Acid reflux ADHD (attention deficit hyperactivity disorder) 2019 Allergic 1975 [place] Anxiety Arthritis 2003 Breathlessness lying flat Carpal tunnel syndrome Edentulous Failure to thrive (child) 2022 Hx of hepatitis C has been treated Jaw pain Murmur, cardiac as a child Neck pain Trigeminal neuralgia 06/2024 Visual impairment 2023 Reading glasses needed Wears dentures Past Surgical History: Past Surgical History: Procedure Laterality Date COLONOSCOPY DIAGNOSTIC / SCREENING N/A 10/23/2024 Performed by Mahamed Otoole DO at [facility] HAND SURGERY INJECTION BURSA INTERMEDIATE Isauro TMJ Bilateral 11/10/2024 Performed by Kenyon Prather MD at [facility] INJECTION BURSA INTERMEDIATE Bilat TMJ Bilateral 06/16/2024 Performed by Kenyon Prather MD at [facility] INJECTION BURSA INTERMEDIATE Bilat TMJ Bilateral 03/24/2024 Performed by Kenyon Prather MD at [facility] MANDIBLE SURGERY SPINE SURGERY 2007 Injection TOOTH EXTRACTION WRIST SURGERY Family History: Family History Problem Relation Age of Onset Diabetes Maternal Grandmother Arthritis Paternal Grandfather Social History: Social History Socioeconomic History Marital status: Single Tobacco Use Smoking status: Some Days Types: Cigarettes Start date: 10/18/2024 Last attempt to quit: 02/16/1994 Years since quittin.8 Smokeless tobacco: Former Vaping Use Vaping status: Former Substance and Sexual Activity Alcohol use: Not Currently Drug use: Not Currently Types: Amphetamines, Anabolic steroids, Benzodiazepines, Crack cocaine, Cocaine, Heroin, Hydrocodone, Marijuana, Methamphetamines, Opium, Oxycodone Comment: Ill never abuse drugs again. 23 months clean had six years . Sexual activity: Not Currently Partners: Female Social Drivers of Health Financial Resource Strain: High Risk (03/05/2024) Received from [facility] Overall Financial Resource Strain (CARDIA) Difficulty of Paying Living Expenses: Very hard Food Insecurity: No Food Insecurity (12/06/2024) Hunger Screening Food Insecurity - Worry: Never True Food Insecurity - Inability: Never True Transportation Needs: No Transportation Needs (03/05/2024) Received from [facility] PR[facility]ARE - Transportation Lack of Transportation (Medical): No Lack of Transportation (Non-Medical): No Recent Concern: Transportation Needs - Unmet Transportation Needs (02/14/2024) PRAPARE - Transportation Lack of Transportation (Medical): No Lack of Transportation (Non-Medical): Yes Physical Activity: Insufficiently Active (03/05/2024) Received from [facility] Exercise Vital Sign Days of Exercise per Week: 3 days Minutes of Exercise per Session: 20 min Stress: Stress Concern Present (03/05/2024) Received from [facility] [employer] [place] [employer] - Occupational Stress Questionnaire Feeling of Stress : Very much Social Connections: Moderately Isolated (03/05/2024) Received from [facility] Social Connection and Isolation Panel [NHANES] Frequency of Communication with Friends and Family: Never Frequency of Social Gatherings with Friends and Family: Never Attends Presybeterian Services: 1 to 4 times per year Active Member of Clubs or Organizations: No Attends Club or Organization Meetings: More than 4 times per year Marital Status: Never Interpersonal Safety: Not At Risk (03/05/2024) Received from [facility] Humiliation, Afraid, Rape, and Kick questionnaire Fear of Current or Ex-Partner: No Emotionally Abused: No Physically Abused: No Sexually Abused: No Housing Instability: High Risk (03/05/2024) Received from [facility] Housing Stability Vital Sign Unable to Pay for Housing in the Last Year: No Number of Times Moved in the Last Year: 0 Homeless in the Last Year: Yes Review of Systems: Review of Systems Constitutional: Negative for chills and fever. HENT: Negative for ear pain. Eyes: Negative for pain. Respiratory: Negative for shortness of breath. Cardiovascular: Negative for chest pain/discomfort. Gastrointestinal: Negative for abdominal pain, diarrhea, nausea and vomiting. Genitourinary: Negative for flank pain. Musculoskeletal: Negative for back pain. Jaw/head pain Skin: Negative for rash. Neurological: Negative for headaches. Psychiatric/Behavioral: Negative for sleep disturbance and suicidal ideas. Physical Exam: ED Triage Vitals [12/06/241925] Temp Heart Rate Resp BP SpO2 36.9 ??C (98.4 ??F) 95 20 142/79 99 % Temp Source Heart Rate Source Patient Position BP Location FiO2 (%) Oral Pulse Ox Sitting Right arm -- Vitals: 12/06/241925 BP: 142/79 Temp: 36.9 ??C (98.4 ??F) TempSrc: Oral Pulse: 95 Resp: 20 SpO2: 99% Height: 177.8 cm (5' 10 ) Weight: 73.5 kg (162 lb) Physical Exam Vitals reviewed. HENT: Head: Normocephalic and atraumatic. Jaw: Tenderness and pain on movement present. Eyes: Conjunctiva/sclera: Conjunctivae normal. Cardiovascular: Rate and Rhythm: Normal rate. Pulmonary: Effort: Pulmonary effort is normal. Breath sounds: Normal breath sounds. Abdominal: General: There is no distension. Palpations: Abdomen is soft. Musculoskeletal: General: Normal range of motion. Cervical back: Normal range of motion and neck supple. Skin: General: Skin is warm and dry. Neurological: General: No focal deficit present. Mental Status: He is alert and oriented to person, place, and time. GCS: GCS eye subscore is 4. GCS verbal subscore is 5. GCS motor subscore is 6. Procedure: Procedures Re-evaluation: Re-Evaluation Medical Decision Making Plan of care - 1 time dose of muscle relaxer and follow up to dentist at [facility] Risk Prescription drug management. ED Course: Clinical Impressions as of 12/06/241942 Jaw pain . ED Disposition ED Disposition Discharge Date/Time WedDec 06, 2024 7:43 PM Comment At the time of discharge, the plan has been discussed with the patient regarding the diagnosis and prognosis. All questions have been answered. Verbal discharge instructions were discussed with the patient. The patient has been advised to follow up w ith their Primary Care Provider within 1 week. The patient was also instructed to return to the ED if their symptoms change, worsen, new symptoms arise or if they have any additional concerns. JEROME Supervision Only Supervising Physician was Dr. Oanh Sebastian Please note that portions of this note were completed with a voice recognition program. Efforts were made to edit the dictations but occasionally words are mis-transcribed. Sheila Nugent APRN-COORDINATOR HOTELS 12/06/241942 RICHARD Traore 12/06/242027 documented in this encounter Plan of Treatment Not on file documented as of this encounter Visit Diagnoses Diagnosis Jaw pain- Primary documented in this encounter Administered Medications Inactive Administered Medications - up to 3 most recent administrations Medication Order MAR Action Action Date Dose Rate Site orphenadrine (NORFLEX) injection 60 mg 60 mg, intramuscular, Once, On Wed12/06/24 at 1940, For 1 dose, If ordered IV: give over [address] patient in supine position during and for 5-10 minutes following injection. Given 12/06/2024 7:49 PM EDT 60 mg Right Deltoid documented in this encounter Active and Recently Administered Medications Times are shown in EDT. Scheduled Medication Order 12/04/2024 12/05/2024 12/06/2024 orphenadrine (NORFLEX) injection 60 mg (COMPLETED) 60 mg, intramuscular, Once, On Wed12/06/24 at 1940, For 1 dose, If ordered IV: give over [address] patient in supine position during and for 5-10 minutes following injection. 1948 (Given - Provid er: Tatyana Means RN) documented in this encounter Additional Health Concerns Assessment Noted Time PHQ-9 Depression Total Score: 0 11/11/19 24 1:55 PM EDT documented as of this encounter Care Teams Nitrogen Operator Relationship Specialty Start Date End Date Carrington Fritz MD [address] [place] [address], [address] [place] [address] PCP - General Internal Medicine 12/06/24 documented as of this encounter
--- OUTSIDE RECORDS SUMMARY | 2024-12-14 13:00 | XMS_ITS | Encounter Summary ---
Author Organization [facility] Address [address] [address] Phone Care Team Providers Care Automatic Stacker Name Role Phone Self, Self Primary Care Provider Unavailelvia e Sebastien Warren Unavailable Lee Mane DMD Unavailable [phone] Reason for Visit * Reason Comments Jaw Pain Encounter Details Date Type Department Care Team (Late st Contact Info) Description 12/14/2024 1:00 PM EDT [facility] [address] [phone] Sebastien Warren [address] [phone] Jud Rogers, DDS, [place] [address] [place] [address] Edentulous alveolar ridge (Primary Dx) Social History Tobacco Use Types Packs/Day Years Used Date Smoking Tobacco: Every Day Cigarettes Passive Smoke Exposure: Current Smokeless Tobacco: Current Tobacco Cessation:Ready to Q uit: No; Counseling Given: No Alcohol Use Standard Drinks/Week Comments Not Currently [...] Sign Reading Time Taken Comments Blood Pressure 137/100 12/14/2024 1:01 PM EDT Pulse 91 12/14/2024 1:01 PM EDT Temperature - - Respiratory Rate - - Oxygen Saturation - - Inhaled Oxygen Concentration - - Weight - - Height - - Body Mass Index - - documented in this encounter Progress Notes * Sebastien Warren - 12/14/2024 1:00 PM EDT Removable Prosthodontics Procedure 12/15/2024 Trading Analyst Needed: No Chief Complaint Patient presents with Jaw Pain History of Present Illness Past Medical History[1] Current Outpatient Medications Medication Sig Acetaminophen 325 MG tablet Take 200 mg by mouth every 6 hours as needed for Severe Pain (x3 day). atomoxetine (Strattera) 40 MG capsule Take 1 capsule by mouth daily. (Patient not taking: Reported on 12/06/2024) baclofen 10 MG tablet Take 1 tablet by mouth 4 times daily. buprenorphine 2 mg/naloxone 0.5 mg (SUBOXONE) SL film Place 1 strip under tongue daily. clonazePAM 1 MG tablet Take 1 tablet by mouth 2 times daily. Cyanocobalamin 1000 MCG/ML Kit Inject as directed. DULoxetine [address] Particles capsule DR Take 1 capsule by mouth daily. Fluconazole 100 MG tablet Take 1 tablet by mouth daily. (Patient not taking: Reported on 12/06/2024) hydrOXYzine pamoate (Vistaril) 50 MG capsule Take 1 capsule by mouth 3 times daily as needed for Anxiety. (Patient not taking: Reported on 12/06/2024) Ibuprofen 200 MG tablet Take 4 tablets [...] 8 capsules by mouth 3 times daily. QUEtiapine 100 MG tablet Take 2 tablets by mouth at bedtime. (Patient not taking: Reported on 12/06/2024) triamcinolone 0.025 % Cream cream Apply 1 Application topically 2 times daily. zolpidem 10 MG tablet Take 1 tablet by mouth at bedtime as needed for Sleep for up to 7 days. (Patient not taking: Reported on 12/06/2024) Vitals: 12/14/24 1301 BP: (!) 137/100 Pulse: 91 Allergies[2] Tobacco Use: High Risk (12/14/2024) Patient History Smoking Tobacco Use: Every Day Smokeless Tobacco Use: Current Passive Exposure: Current Procedure Details [id number] - OTHER SERVICES - UNSPECIFIED REMOVABLE PROSTHODONTIC PROCEDURE Was local anesthetic administered? No Patient presented for a follow up appointment to the new patient exam with prosth to evaluate the complete dentures, facial pain, facial muscle tightness and dysphagia swallowing. Patient is currently not wearing the complete dentures. CC: My upper and lower jaw is shrinking rapidly. I've had 3 pairs of dentures since February 2022.My hard palate swallows in the opposite direction. My right ear feels like its being pulled straight back of my skull. I get waves of pressure in my head. My mouth is stretched open. My lips are extremely twisted and painful. Patient reported many of the current symptoms he is experience started after the extraction of the mandibular right most posterior molar. Patient also reported he had a rhinoplasty in July of 2024 andfeels that it's falling apart . Current dentures were fabricated by [employer] and delivered 2023. Patient reported having 3 pairs of completed dentures since 2021 and has been completely edentulous since 2015. Tx: The dentures were evaluated and determined to be of poor fit. Swabbed lower right alveolar ridge for suspected candidiasis. Swab was taken to pathology for culture and diagnosis. The patient is under the impression that he was refunded for the dentures fabricated by [employer] ; however, the patient's insurance record shows that [employer] paid for the dentures in full. Patient gave verbal consent and signed the general removable dentures consent form for the [employer] to modify their current dentures. Dr. Rogers recommendation a hard relineof the denture to increase the patient's VDO, stabilize the mandible's movement during chewing and closure and improve the patient's quality of life. Upon recommendation from Dr. Faulkner, Dr. Wilkerson was sought out to discuss the patient's situation.Dr. Wilkerson found the patient's imaging results to be unremarkable and contraindicative of surgery, asany surgical procedure would likely increase the patient's morbidity more than it would have the potential to help. Dr. Wilkerson found the imaging results indicative of trigeminal neuralgia to be interesting, and suggested a more detailed workup from a neurologist. Furthermore, Dr. 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 Because of this, Dr. Wilkerson strongly recommended a referral to a neurologist for workuprelated to glossopharyngeal neuralgia, which might help to alleviate the root cause of the patient's pain and dysphagia. Dr. Wilkerson indicated that the patient's edentulism coupled with lack of denture wear was potentially contributing to patient's TMD due to over closure from decreased VDO. Patient understood that that the current symptoms are at least partially due to the ill fitting dentures and lack of denture wear. The patient had the opportunity to ask questions and understood the dental treatment plan. Patient left disappointed due to a lack of intervention performed during this appointment. Tx Plan: Hard reline of both dentures. 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 Next Visit: Finish complex D&T, soft recline of both dentures Functional impression of mandible. Functional impression of maxilla. Delivery and adjustment. 24hr check 72hr follow up Encounter Providers Dentist: Jud Rogers DDS, [place] Dental Student: Sebastien Warren Student Dental Silk Spooler: Harry Anne [1] Past Medical History: Diagnosis Date Injury to mouth Migraine Swelling TMJ dysfunction [2] Allergies Allergen Reactions Penicillins documented in this encounter Miscellaneous Notes * Dental Procedure Details - Sebastien Warren - 12/14/2024 1:00 PM EDT Was local anesthetic administered? No documented in this encounter Plan of Treatment Scheduled Orders Name Type Priority Associated Diagnoses Orde r Schedule ASSESSMENT OF A PATIENT Dental Routine 1 Occurrences starting 12/14/2024 RELINE COMPLETE DAMON DENTURE (LAB) Dental Routine [address] arting 12/14/2024 RELINE COMPLETE MAX DENTURE (LAB) Dental Routine [address] 12/14/2024 COMPLETED COMPREHENSIVE EXAM Dental Routine [address] ing 12/14/2024 COMPREHENSIVE ORAL EVAL - NEW/EST PATIENT Dental Routine [address] ing 12/14/2024 documented as of this encounter Procedures Procedure Name Priority Date/Time Associated Diagnosis Comments OTHER SERVICES - UNSPECIFIED REMOVABLE PROSTHODONTIC PROCEDURE Routine 12/14/2024 1:00 PM EDT Edentulous alveolar ridge documented in this encounter Visit Diagnoses Diagnosis Edentulous alveolar ridge- Primary documented in this encounter Care Teams Automatic Stacker Relationship Specialty Start Date End Date Self, Self PCP - General Other 05/18/23 Sebastien Warren [address] [phone] Dental Student 12/11/24 Lee Mane DMD [address] [phone] Gumming Machine Operator Dentistry 12/11/24 documented as of this encounter
[2024-12-20] VITALS (34 sets, daily range): BP systolic 106–157; BP diastolic 64–100; PULSE 68–141; O2SAT 92–98; BMI 23.0
--- OUTSIDE RECORDS SUMMARY | 2024-12-20 12:52 | XMS_ITS | Encounter Summary ---
Author Organization [facility] Address [address] [place] [address] Care Team Providers Care Body Art Technician Name Role Phone Carrington Fritz MD Unavailable [phone] Carrington Fritz MD Primary Care Provider + Source Comments In the event this information is protected by the Federal Confidentiality of Alcohol and Drug AbusePatient Records regulations: The Federal rules restrict any use of the information to criminally investigate or prosecute any alcohol or drug abuse patient.[facility] Encounter Details Date Type Department Care Team (Late st Contact Info) Description 01/04/2024 Patient Msg [facility] [address] [phone] Provider, [facility] appointment reschedule Social History Tobacco [...] is lower risk 8 11/29/2023 Data from: https://www.neighborhoodatlas.[facility] 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 Not on file Not [...] Department Care Team (Latest Contact Info) Description 12/22/2024 10:45 AM EDT Office Visit Dermatology [address] [place] [address] Xander Cook MD [address] [place] [address] Severe Dry Skin around Scalp 12/22/2024 1:00 PM EDT Office Visit Neurology Pain [address] [place] [address] Meena James APRN.SPECIAL POLICE [address] [place] [address] Atypical facial pain [G50.1] 12/25/2024 2:30 PM EDT Office Visit Facial Plastics [address] [place] [address] [phone] Jose Eduardo Hays MD [address] [place] [address] Follow-up Surgery complications 02/06/2025 1:00 PM [facility] Gastroenterology [address] [address] David Vazquez MD [address] [place] [address] esophagitis documented as of this encounter Visit Diagnoses Not on filedocumented in this encounter Care Teams Body Art Technician Relationship Specialty Start Date End Date Carrington Fritz MD [address] [place] [address], [address] [place] [address] PCP - General Internal Medicine 06/20/24 Carrington Fritz MD [address] [place] [address], [address] [place], [place] [phone] Referring Internal Medicine 11/26/23 documented as of this encounter
--- OUTSIDE RECORDS SUMMARY | 2024-12-20 12:52 | XMS_ITS | Clinical Summary ---
Author Organization [facility] Address [address] [place] [address] Care Team Providers Care Shadowgraph Operator Name Role Phone Carrington Fritz MD Unavailable [phone] Carrington Fritz MD Primary Care Provider + [...] not apply to face. 80 g 2 06/14/19 25 Active pregabalin (LYRICA) 75 mg capsule Take 75 mg by mouth. 07/05/19 25 Active cyanocobalamin , vitamin B-12, (B-12 COMPLIANCE INJECTION) by INJECTION(UNSPE CIFIED PARENTERAL ROUTES) route once every month. Active clonazePAM (KLONOPIN) 1 mg tablet Take 1 mg by mouth two times a day as needed for anxiety. 06/02/19 25 Active omeprazole (PRILOSEC) 40 mg capsule Take 1 capsule by mouth once daily. 90 capsule 11/08/19 25 025 Active baclofen 10 mg tablet 10 mg. 11/03/19 25 Active buprenorphine- nalOXone SL (SUBOXONE) 2-0.5 mg subl Dissolve under the tongue. Active buprenorphine- nalOXone SL (SUBOXONE) 8-[address] 1 TABLET UNDER TONGUE THREE TIMES A DAY WAIT 1HOUR AFTER BRUSHING TEETH TO TAKE MEDICATION. 09/30/19 25 Active buprenorphine- naloxone (SUBOXONE) 8-2 mg film 11/24/19 Active ketoconazole (NIZORAL) 2 % shampoo Apply 1 application to affected area two times a week. 10/24/19 25 Active polyethylene glycol 3350 17 gram/dose powder DISSOLVE 17 GRAMS IN 8 OZ OF FLUID LIQUID DRINK DAILY DIRECTED 10/04/[address] (CYMBALTA) 60 mg capsule Take 1 capsule by mouth once daily. 90 capsule 11/25/19 25 Active OXcarbazepine (TRILEPTAL) 150 mg tablet Take 1 tablet by mouth two times a day. 60 tablet 2 11/25/19 25 Active ubidecarenone Q-10 (CO Q-10) 10 mg cap Take 10 mg by mouth three times a day. 08/25/19 24 025 Discontinued tiZANidine (ZANAFLEX) 4 mg tablet TAKE 1 TABLET BY MOUTH EVERY DAY NEEDED FOR FACIAL PAIN/JAW PAIN/MUSCLE PULLING 30 tablet 2 10/13/[address] (CYMBALTA) 30 mg capsule TAKE 1 CAPSULE BY MOUTH ONCE DAILY FOR 7 DAYS, THEN TAKE 2 CAPSULE BY MOUTH ONCE DAILY 30 capsule 2 10/13/19 25 025 Discontinued fluconazole (DIFLUCAN) 100 mg tablet Take 2 tablets Day 1, then 1 tablet daily 11/18/[address] (CYMBALTA) 30 mg capsule Take 3 capsules by mouth once daily. 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; TMJ click; Dysphagia, unspecified type; Chronic pain syndrome; Oral candidiasis; Orofacial pain; Depression, unspecified depression type; History of suicidal ideation 11/24/2024 Patient Msg Neurology [address] [place] [address] Toya Wright DO review 11/24/2024 Travel 11/14/2024 Telephone [facility] [address] [place] [address] Allan Aggarwal MD 11/07/2024 Orders Only Gastroenterology [address] [address] Sofie Reed APRN.CUSTOMER FIELD REPRESENTATIVE 11/07/2024 Patient Msg Gastroenterology [address] [address] Sofie Reed APRN.CUSTOMER FIELD REPRESENTATIVE EGD results 11/03/2024 Results Follow-Up Gastroenterology [address] [address] David Vazquez MD 10/31/2024 9:30 AM EDT Anesthesia Event Gastroenterology [address] [place] [phone] Cameron Bernal MD Farkas, Shelby, APRN.CUSTOMER SERVICE SPECIALIST 10/31/2024 8:42 AM EDT - 10/31/2024 11:59 PM EDT Hospital Encounter Gastroenterology [address] [place] [phone] David Vazquez MD Dysphagia, unspecified type [R13.10] Discharge Disposition: Home 10/24/2024 GI Preprocedure Call Gastroenterology [address] [place] [phone] Leigh Quinones RN 10/18/2024 1:40 PM EDT Office Visit Otolaryngology [address] [phone] Allan Aggarwal MD Oropharyngeal dysphagia (Primary Dx); Abnormal rhythmic movement of tongue 10/18/2024 Travel 10/17/2024 10:30 AM EDT Office Visit Gastroenterology [address] [address] Sofie Reed APRN.CUSTOMER FIELD REPRESENTATIVE Dysphagia, unspecified type (Primary Dx); Oropharyngeal dysphagia 10/16/2024 Abstract Gastroenterology [address] [address] Oxana Bob RN 10/10/2024 Refill Neurology [address] [phone] Toya Wright DO Refill Request 09/29/2024 10:55 AM EDT Office Visit Otolaryngology [address] [place] [address] Avelino Oconnor APRN.CUSTOMER FIELD REPRESENTATIVE Black hairy tongue (Primary Dx); Oral phase dysphagia; Dry mouth 09/28/2024 Travel from Last 3 Months Family History Medical History Relation Comments Unknown [Other] Father Anxiety [Other] Mother Relation Status Comments Father Maternal Grandfather Alive Maternal Grandmother Alive Mother Alive Sister Alive Social History Tobacco Use Types Packs/Day Years Used Date Smoking Tobacco: Every Day Cigarettes Smokeless Tobacco: Former Snuff Tobacco Cessation:Ready to Q uit: Not Asked; Counseling Given: Not Answered Comments:Stopped smoking x 2 months ago as 07/06/24. Alcohol Use Standard Drinks/Week Comments No 0 (1 standard drink = 0.6 oz pur e alcohol) PHQ-2 Answer Date Recorded PHQ-2 score 5 06/22/2024 AUDIT-C Answer Date Recorded Q1: How often do you have a drink containing alc ohol? Never 10/31/2024 Average Number of Drinks Not on file 025 Frequency of Binge Drinking Not on file 10/07 Area Deprivation Index Answer Date Matthew rded National Score (1-100), lower number is lower ri sk 87 11/29/2023 State Score (1-10), lower number is lower risk 8 11/29/2023 Data from: https://www.neighborhoodatlas.[facility].edu/. 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 Not on file Not on file Last Filed Vital Signs Vital Sign Reading Time Taken Comments Blood Pressure 122/71 11/24/2024 3:26 PM EDT Pulse 93 11/24/2024 3:26 PM EDT Temperature 36 C (96.8 F) 10/31/2024 9:48 AM EDT Respiratory Rate 18 10/31/2024 10:00 AM EDT Oxygen Saturation 95% 11/24/2024 3:26 PM EDT Inhaled Oxygen Concentration - - Weight 74.9 kg (165 lb 2 oz) 11/24/2024 3:26 PM EDT Height 177.8 cm (5' 10 ) 10/31/2024 9:08 AM EDT Body Mass Index 23.69 10/31/2024 9:08 AM EDT Plan of Treatment Upcoming Encounters Date Type Department Care Team (Latest Contact Info) Description 12/22/2024 10:45 AM EDT Office Visit Dermatology [address] [address] Xander Cook MD [address] [place] [address] Severe Dry Skin around Scalp 12/22/2024 1:00 PM EDT Office Visit Neurology Pain [address] [place] [address] Meena James, DESKTOP OPERATOR.CUSTOMER FIELD REPRESENTATIVE [address] [place] [address] Atypical facial pain [G50.1] 12/25/2024 2:30 PM EDT Office Visit Facial Plastics [address] [phone] Jose Eduardo Hays MD [address] [place] [address] Follow-up Surgery complications 02/06/2025 1:00 PM [facility] Gastroenterology [address] [address] David Vazquez MD [address] [place], [place] [phone] esophagitis Health Maintenance Due Date Last Done Comments Depression Screening 02/11/1994 CT Colonography 02/11/2021 Cologuard (FIT-DNA) 02/11/2021 Fecal Occult Blood 02/11/2021 Sigmoidoscopy 02/11/2021 Hepatitis B Vaccine (2 of 3 - Hep B Twinrix 3-dose series) 04/05/2024 03/08/2024 Covid-19 Vaccine (2 - 2024-2 6 season) 2024 03/18/2024 Influenza Vaccine (#1) 2024 , 01/01/2023, 02/24/2022 Colonoscopy 10/23/2025 10/23/2024, 10/06, 10/23/2024 Colorectal Cancer Screening 10/23/2025 Diabetes Screening 12/01/2027 11/30/2024, 0 04/14/2024, 12/17/2023, Additional history exists Lipid Screening 01/13/2028 01/12/2023, 12/06, 04/27/2022, Additional history exists DTaP,Tdap,Td Vaccine (2 - Td or Tdap) 03/08/2034 03/08/2024 HIV Screening Completed 04/14/2024 Hepatitis C Screening Completed 07/06/2024 , 04/14/2024, 04/14/2024, Additional history exists Pneumococcal Vaccine Completed 11/10/2024, 04/26/19 24 Procedures Procedure Name Priority Date/Time Associated Diagnosis Comments COMPREHENSIVE METABOLIC PANEL Routine 11/30/2024 1:44 PM EDT Atypical facial pain COMPLETE BLOOD COUNT Routine 11/30/2024 1:44 PM EDT Atypical facial pain SURGICAL PATHOLOGY Routine 10/31/2024 9: 38 AM EDT Dysphagia, unspecified type EGD DIAGNOSTIC Routine 10/31/2024 9:21 AM EDT Dysphagia, unspecified type PT ED DIGESTIVE DISEASE 10/18/2024 PT ED PATIENT INFORMATION 10/07/2024 HIV 1/2 COMBO WITH REFLEX TO DIFFERENTIATION Routine 04/14/2024 11:19 AM EST Diarrhea of presumed infectious origin History of hepatitis C CRP elevated from Last 3 Months or Most Recently Relevant to Health Maintenance Results * (ABNORMAL) COMPREHENSIVE METABOLIC PANEL (11/30/2024 1:44 PM EDT) Pathologist [facility] Protein, Total 7.6 6.3 - 8.0 g/dL 12/01/2024 1:51 AM EDT [facility] Albumin 4.5 3.9 - 4.9 g/dL 12/01/2024 1:51 AM [facility] Calcium, Total 10.3(H) 8.5 - 10.2 mg/dL 12/01/2024 1:51 AM [facility] Bilirubin, Total 0.4 0.2 - 1.3 mg/dL 12/01/2024 1:51 AM [facility] Alkaline Phosphatase 84 38 - 113 U/L 12/01/2024 1:51 AM [facility] AST 29 14 - 40 U/L 12/01/2024 1:51 AM [facility] ALT 30 10 - 54 U/L 12/01/2024 1:51 AM [facility] Glucose 84 74 - 99 mg/dL 12/01/2024 1:51 AM [facility] Comment: The [place] [employer] (ADA) provides guidance for cutoff [...] Standards of Medical Care in Diabetes 2016, [place] [employer]. Diabetes Care. 2016.39(Suppl 1). BUN 13 9 - 24 mg/dL 12/01/2024 1:51 AM [facility] Creatinine 0.84 0.73 - 1.22 mg/dL 12/01/2024 1:51 AM [facility] Sodium 139 136 - 144 mmol/L 12/01/2024 1:51 AM [facility] Potassium 4.6 3.7 - 5.1 mmol/L 12/01/2024 1:51 AM [facility] Chloride 102 98 - 107 mmol/L 12/01/2024 1:51 AM [facility] CO2 24 22 - 30 mmol/L 12/01/2024 1:51 AM EDT [facility] Anion Gap 13 8 - 15 mmol/L 12/01/2024 1:51 AM EDT [facility] Estimated Glomerular Filtration Rate 108 >=60 mL/min/1. 73m 12/01/2024 1:51 AM EDT [facility] Comment:Estimated Glomerular Filtration Rate (eGFR) is [...] BLOOD SPECIMEN / Unknown Venipuncture / Unknown 11/30/2024 1:44 PM EDT 11/30/2024 1:44 PM EDT Toya Wright DO LABORATORY Final Result [facility] [address] [place] [address], * COMPLETE BLOOD COUNT (11/30/2024 1:44 PM EDT) WBC 5.76 3.70 - 11.00 k/uL 11/30/2024 9:30 PM EDT [facility] RBC 5.19 4.20 - 6.00 m/uL 11/30/2024 9:30 PM EDT [facility] Hemoglobin 16.9 13.0 - 17.0 g/dL 11/30/2024 9:30 PM EDT [facility] Hematocrit 50.0 39.0 - 51.0 % 11/30/2024 9:30 PM EDT [facility] MCV 96.3 80.0 - 100.0 fL 11/30/2024 9:30 PM EDT [facility] MCH 32.6 26.0 - 34.0 pg 11/30/2024 9:30 PM EDT [facility] MCHC 33.8 30.5 - 36.0 g/dL 11/30/2024 9:30 PM EDT [facility] RDW-CV 13.4 11.5 - 15.0 % 11/30/2024 9:30 PM EDT [facility] Platelet Count 154 150 - 400 k/uL 11/30/2024 9:30 PM EDT [facility] MPV 10.4 9.0 - 12.7 fL 11/30/2024 9:30 PM EDT [facility] Absolute nRBC <0.01 <0.01 k/uL 11/30/2024 9:30 PM EDT [facility] Blood BLOOD SPECIMEN / Unknown Venipuncture / Unknown 11/30/2024 1:44 PM EDT 11/30/2024 1:44 PM EDT us Toya Wright DO LABORATORY Final Result Performing Organization Address City/State/[facility] Co de Phone Number [facility] [place] [address], * SURGICAL PATHOLOGY (10/31/2024 9:38 AM EDT) Case Report Surgical Pathology Report Case: [id number] Authorizing Provider: David Vazquez MD Collected: 10/31/2024 09:38 AM Ordering Location: Gastroenterology Received: 10/31/2024 01:25 PM Pathologist: Alonso Rutledge MD Specimens: A) - Esophagus, Distal, Biopsy, r/o EOE B) - Esophagus, Proximal, Biopsy, r/o EOE 11/01/2024 2:10 PM EDT [facility] FINAL DIAGNOSIS A. Distal esophagus, biopsy: - Squamous mucosa with no diagnostic abnormality. B. Proximal esophagus, biopsy: - Squamous mucosa with no diagnostic abnormality. JEL 11/01/2024 11/01/2024 2:10 PM EDT [facility] at 1410 EDT Diagnosis Comment A, B. Histologic changes of eosinophilic esophagitis are not identified. 11/01/2024 2:10 PM EDT [facility] Gross Description A. Esophagus, Distal, Biopsy Received in formalin are multiple pieces of guevara, soft tissue aggregating to 0.6 x 0.4 x 0.2 cm. Totally submitted in one cassette. B. Esophagus, Proximal, Biopsy Received in formalin are multiple pieces of guevara, soft tissue aggregating to 0.6 x 0.3 x 0.2 cm. Totally submitted in one cassette. JTS October 31, 2024 2:34 PM Gross examination performed at [facility], [facility] [place] [address] 11/01/2024 2:10 PM EDT [facility] Performing Lab Diagnostic interpretation performed at: [facility], [address] [place] [address] CLIA# [id number] [place]axer: Alonso Rutledge MD 11/01/2024 2:10 PM EDT [facility] Disclaimer Laboratory Developed Test (LDT) Disclaimer: Performance characteristics of immunohistochemica l, immunofluorescent, and chromogenic in-situ hybridization tests have been determined by the performing laboratory within the [facility] Department of Pathology and Laboratory Medicine ([facility], [facility], [facility], [facility], [facility], [facility], or [facility]) in a manner consistent with CLIA requirements. One or more of these tests may not have been cleared or approved by the FDA. The [facility] Department of Pathology and Laboratory Medicine is regulated under CLIA as qualified to perform high-complexity testing. These tests are used for clinical purposes. These should not be regarded as investigational or for research. Positive and negative controls stain appropriately. 11/01/2024 2:10 PM EDT [facility] Tissue BIOPSY OF ESOPHAGUS / Unknown 10/31/2024 9:38 AM EDT 10/31/2024 1:25 PM EDT Tissue specimen (specimen) BIOPSY OF ESOPHAGUS / Unknown 10/31/2024 9:39 AM EDT 10/31/2024 1:25 PM EDT us David Vazquez MD SURGICAL PATHOLOGY Final Result [facility] [id number] [place] [address], [facility][Note 3] Desk [address] [place] [address], * EGD DIAGNOSTIC (10/31/2024 9:21 AM EDT) Anatomical Region Laterality Modality Other 10/31/2024 9:21 AM EDT Narrative 10/31/2024 9:44 AM EDT A31 Gastrointestinal Endoscopy Patient Name: Raheem Cody Procedure Date: 10/31/2024 9:21 AM Date of : 1975 Admit Type: Outpatient Age: 49 Room: [address] Gender: Male Note Status: Finalized Attending MD: David Flores MD, [id number] Procedure: Upper GI endoscopy Indications: Dysphagia Providers: David Flores MD, Damion Wood MD (Fellow) Patient Profile: This is a 49 year old male. Refer to note in patient chart for documentation of history and physical. Referring Physician: Sofie Reed (Referring MD) Medicines: Monitored Anesthesia Care Complications: No immediate complications. Requesting Provider: Procedure: Pre-Anesthesia Assessment: - Prior to the procedure, a History and Physical was performed, and patient medications and allergies were reviewed. The patient's tolerance of previous anesthesia was also reviewed. The risks and benefits of the procedure and the sedation options and risks were discussed with the patient. All questions were answered, and informed consent was obtained. Prior Anticoagulants: The patient has taken no anticoagulant or antiplatelet agents. ASA Grade Assessment: II - A patient with mild systemic disease. After reviewing the risks and benefits, the patient was deemed in satisfactory condition to undergo the procedure. After obtaining informed consent, the endoscope was passed under direct vision. Throughout the procedure, the patient's blood pressure, pulse, and oxygen saturations were monitored continuously. The Endoscope was introduced through the mouth, and advanced to the second part of duodenum. The upper GI endoscopy was accomplished without difficulty. The patient tolerated the procedure well. Moderate Sedation: MAC anesthesia was administered by the anesthesia team. Findings: LA Grade B (one or more mucosal breaks greater than 5 mm, not extending between the tops of two mucosal folds) esophagitis with no bleeding was found. The gastroesophageal flap valve was visualized endoscopically and classified as Hill Grade II (fold present, opens with respiration). The entire examined stomach was normal. The examined duodenum was normal. Biopsies were obtained from the proximal and distal esophagus with cold forceps for histology of suspected eosinophilic esophagitis. Impression: - LA Grade B reflux esophagitis with no bleeding. - Gastroesophageal flap valve classified as Hill Grade II (fold present, opens with respiration). - Normal stomach. - Normal examined duodenum. - Biopsies were taken with a cold forceps for evaluation of eosinophilic esophagitis. Estimated Blood Loss: Estimated blood loss was minimal. Recommendation: - Await pathology results. - Use a proton pump inhibitor PO daily. Procedure Code(s): --- Professional --- 70687, Esophagogastroduodenoscopy, flexible, transoral; with biopsy, single or multiple Diagnosis Code(s): --- Professional --- K21.00, Gastro-esophageal reflux disease with esophagitis, without bleeding R13.10, Dysphagia, unspecified CPT copyright 2020 [employer]. All rights reserved. The codes documented in this report are preliminary and upon swamper review may be revised to meet current compliance requirements. Attending Participation: I was present and participated during the entire procedure, including non-mendieta portions. Scope In: 9:35:36 AM Scope Out: 9:42:17 AM MD David Camarillo MD 10/31/2024 9:42:11 AM This report has been signed electronically by David Flores MD Number of Addenda: 0 Note Initiated On: 10/31/2024 9:21 AM us Sofie Reed APRN.CUSTOMER FIELD REPRESENTATIVE DIGESTIVE DISEASE Fin al Result * PT ED DIGESTIVE DISEASE (10/18/2024) 10/18/2024 Narrative [facility] - 11/18/2024 Provider ROLANDO your patient RAHEEM CODY has not started their Cherie program, time has . Cherie program: UPPER GI ENDOSCOPY (EGD) us David Vazquez MD [facility] Final Res ult [facility] * PT ED PATIENT INFORMATION (10/07/2024) 10/07/2024 Narrative [facility] - 10/07/2024 Sally REED your patient RAHEEM CODY started their Cherie on 10-07-2024 and completed it on 10-07-2024 Cherie program: PATIENT SAFETY INSTRUCTIONS FOR HEALTHCARE SETTINGS us Sofie Reed DESKTOP OPERATOR.KARUNA [facility]IE Final Result Performing Organization Address [facility] Co de Phone Number [facility] * HIV 1/2 COMBO WITH REFLEX TO DIFFERENTIATION (04/14/2024 11:19 AM EST) HIV 12 Combo (Ag/Ab) Nonreactive Nonreactive 04/14/2024 5:24 PM EST [facility] HIV-1/2 AB (Confirmatory) 04/14/2024 5:24 PM EST [facility] Comment:Test not indicated. HIV Interpretation 04/14/2024 5:24 PM EST [facility] Comment: No evidence of HIV-1 or HIV-2 infection. Should recent infection be suspected, repeat testing may be considered 2-3 weeks after this draw. Forrest Rev. Code 3701.243(E): This information has been [...] Ayan Aquino MD LABORATORY Final Resu lt [facility] [address] [address], [place] from Last 3 Months or Most Recently Relevant to Health Maintenance [place] [place] [address] Care Teams Shadowgraph Operator Relationship Specialty Start Date End Date Carrington Fritz MD [address] [place] [address], [address] [place], [place] [phone] PCP - General Internal Medicine 06/20/24 Carrington Fritz MD [address] [place] [address], [address] [place], [place] [phone] Referring Internal Medicine 11/26/23
--- OUTSIDE RECORDS SUMMARY | 2024-12-20 12:52 | XMS_ITS | Encounter Summary ---
Demographics Address [address] [place] [address] Mobile Phone Email Address Preferred Language Ukrainian Marital Status Single Mormonism Affiliation Unknown Race White Ethnic Group Not or Lati no Author Organization [facility] tem Address [id number] [address] [place] [address] Care Team Providers Care Cnc Milling Machine Operator Name Role Phone Carrington Fritz MD Primary Care Provider [phone] Reason for Visit * Reason Comments Med Refill Encounter Details Date Type Department Care Team ([facility] st Contact Info) Description 09/17/2024 Refill [facility] [address] [place] [phone] Miguel Hernandez PA [address] [place], [place] [phone] TMJ (temporomandibular joint disorder) Social History Tobacco [...] encounter Miscellaneous Notes * Telephone Encounter - Cleopatra Monaco RN - 09/17/2024 4:10 PM EDT Our clinic does not accept pharmacy refill requests. The patient must contact our office. [phone] documented in this encounter Plan of Treatment Not on file documented as of this encounter Visit Diagnoses Diagnosis TMJ (temporomandibular joint disorder) Unspecified temporomandibular joint disorders documented in this encounter Additional Health Concerns Assessment Noted Time PHQ-9 Depression Total Score: 0 11/11/19 24 1:55 PM EDT documented as of this encounter Care Teams Cnc Milling Machine Operator Relationship Specialty Start Date End Date Carrington Fritz MD [address] [place] [address], 1 [place] [address] PCP - General Internal Medicine 12/06/24 documented as of this encounter
--- OUTSIDE RECORDS SUMMARY | 2024-12-20 12:52 | XMS_ITS | Encounter Summary ---
Demographics Address [address] [place] [address] Mobile Phone Email Address Preferred Language Vietnamese Marital Status Single Quaker Affiliation Unknown Race White Ethnic Group Not or Lati no Author Organization [employer] [facility] tem Address [id number] [address] [place] [address] Care Team Providers Care Monogram And Letter Paster Name Role Phone Carrington Fritz MD Primary Care Provider [phone] Reason for Visit * Reason Comments Med Refill Encounter Details Date Type Department Care Team ([facility] st Contact Info) Description 09/19/2024 Refill [facility] [address] [place] [phone] Miguel Hernandez PA [address] [place], [place] [phone] TMJ (temporomandibular joint disorder) Social History Tobacco [...] Telephone Encounter - Cleopatra Monaco RN - 09/19/2024 1:12 PM EDT Our clinic does not accept pharmacy refill requests. The patient must contact our office. [phone]\ documented in this encounter Plan of Treatment Not on file documented as of this encounter Visit Diagnoses Diagnosis TMJ (temporomandibular joint disorder) Unspecified temporomandibular joint disorders documented in this encounter Additional Health Concerns Assessment Noted Time PHQ-9 Depression Total Score: 0 11/11/19 24 1:55 PM EDT documented as of this encounter Care Teams Monogram And Letter Paster Relationship Specialty Start Date End Date Carrington Fritz MD [address] [place] [address], 1 [place] [address] PCP - General Internal Medicine 12/06/24 documented as of this encounter
--- OUTSIDE RECORDS SUMMARY | 2024-12-20 12:53 | XMS_ITS | Encounter Summary ---
Author Organization [facility] Address [address] [place] [address] Care Team Providers Care Community Liaison Name Role Phone Carrington Fritz MD Unavailable [phone] Carrington Fritz MD Primary Care Provider + Source Comments In the event this information is protected by the Federal Confidentiality of Alcohol and Drug AbusePatient Records regulations: The Federal rules restrict any use of the information to criminally investigate or prosecute any alcohol or drug abuse patient.[facility] Encounter Details Date Type Department Care Team (Late st Contact Info) Description 12/01/2024 Results Follow-Up Neurology [address] [id number] Mitchel Martinez DO [address] [place] [address] Social History Tobacco Use Types Packs/Day Years Used Date Smoking Tobacco: Every Day Cigarettes Smokeless Tobacco: Former Snuff Comments:Stopped smoking [...] is lower risk 8 11/29/2023 Data from: https://www.neighborhoodatlas.medicine.[place]/. 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 Not [...] 12/22/2024 10:45 AM EDT Office Visit Dermatology [address] [place] [address] Xander Cook MD [address] [place] [address] Severe Dry Skin around Scalp 12/22/2024 1:00 PM EDT Office Visit Neurology Pain [address] [place] [address] Meena James, MORTGAGE FIELD INSPECTOR.PROFESSOR OF VIOLIN [address] [place] [address] Atypical facial pain [G50.1] 12/25/2024 2:30 PM EDT Office Visit Facial Plastics [address] [facility] [address] [phone] Jose Eduardo Hays MD [address] [place] [address] Follow-up Surgery complications 02/06/2025 1:00 PM [facility] Gastroenterology [address] [address] David Vazquez MD [address] [place] [address] esophagitis documented as of this encounter Visit Diagnoses Not on filedocumented in this encounter Care Teams Community Liaison Relationship Specialty Start Date End Date Carrington Fritz MD [address] [place] [address], [address] [place], [place] [phone] PCP - General Internal Medicine 06/20/24 Carrington Fritz MD [address] [place] [address], [address] [place], [place] [phone] Referring Internal Medicine 11/26/23 documented as of this encounter
--- OUTSIDE RECORDS SUMMARY | 2024-12-20 12:53 | XMS_ITS | Encounter Summary ---
Author Organization [facility] Address [address] [place] [address] Care Team Providers Care Voting Machine Repairer Name Role Phone Carrington Fritz MD Unavailable [phone] Carrington Fritz MD Primary Care Provider + Source Comments In the event this information is protected by the Federal Confidentiality of Alcohol and Drug AbusePatient Records regulations: The Federal rules restrict any use of the information to criminally investigate or prosecute any alcohol or drug abuse patient.[facility] Encounter Details Date Type Department Care Team (Late st Contact Info) Description 02/10/2024 Patient Msg [facility] [place] [address] [place] [address] Provider, Ccf Appointment Request Social History Tobacco [...] is lower risk 8 11/29/2023 Data from: https://www.neighborhoodatlas.[facility]/. 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 Answer Date of Assessment Author No 09/25/2013 8:21 AM EDT Pravin Cruz, NETWORK OPERATIONS MANAGER * Are you blind or do you have serious difficulty seeing, even when wearing glasses? Answer Date of Assessment Author No 09/25/2013 8:21 AM EDT Pravin Cruz, NETWORK OPERATIONS MANAGER * Do you have serious difficulty walking or climbing stairs? Answer Date of Assessment Author No 09/25/2013 8:21 AM EDT Pravin Cruz, NETWORK OPERATIONS MANAGER * Do you have difficulty dressing or bathing? Answer Date of Assessment Author No 09/25/2013 8:21 AM EDT Pravin Cruz, NETWORK OPERATIONS MANAGER * Because of a physical, mental, or emotional condition, do you have difficulty doing errands alone such as visiting a doctor's office or shopping? Answer Date of Assessment Author No 09/25/2013 8:21 AM EDT Pravin Cruz, NETWORK OPERATIONS MANAGER documented as of this encounter Mental Status * Because of a physical, mental, or emotional condition, do you have serious difficulty concentrating, remembering, or making decisions? Answer Entry Date Author Yes 09/25/2013 8:21 AM EDT Pravin Cruz, NETWORK OPERATIONS MANAGER documented in this encounter Plan of Treatment Upcoming Encounters Date Type Department Care Team (Latest Contact Info) Description 12/22/2024 10:45 AM EDT Office Visit Dermatology [address] [place] [address] Xander Cook MD [address] [place] [address] Severe Dry Skin around Scalp 12/22/2024 1:00 PM EDT Office Visit Neurology Pain [address] [place] [address] Meena James APRN.FIRER MARINE [address] [place] [address] Atypical facial pain [G50.1] 12/25/2024 2:30 PM EDT Office Visit Facial Plastics [address] [address] [phone] Jose Eduardo Hays MD [address] [place] [address] Follow-up Surgery complications 02/06[facility]25 [facility] [address] [address] David Vazquez MD [address] [place] [address] esophagitis documented as of this encounter Visit Diagnoses Not on filedocumented in this encounter Care Teams Voting Machine Repairer Relationship Specialty Start Date End Date Carrington Fritz MD [address] [place] [address], [address] [place] [address] PCP - General Internal Medicine 06/20/24 Carrington Fritz MD [address] [place] [address], [address] [place], [place] [phone] Referring Internal Medicine 11/26/23 documented as of this encounter
--- OUTSIDE RECORDS SUMMARY | 2024-12-20 12:53 | XMS_ITS | Encounter Summary ---
Demographics Address [address] [place] [address] Mobile Phone Email Address Preferred Language Citizen Of [place] Marital Status Single Jew Affiliation Unknown Race White Ethnic Group Not or Lati no Author Organization [employer] [facility] tem Address [id number] [address] [place] [address] Care Team Providers Care Plumber Gasfitter Name Role Phone Carrington Fritz MD Primary Care Provider [phone] Encounter Details Date Type Department Care Team ([facility] st Contact Info) Description 12/20/2023 Telephone [facility] Internal Medicine/Pediatrics [address] [place] [phone] Carrington Fritz MD [address] [place] [address], 1 [place], [place] [phone] Social History Tobacco Use Types Packs/Day Years [...] * Telephone Encounter - Tesha Katherine - 12/20/2023 3:04 PM EDT Garrison is [...] documented as of this encounter Care Teams Plumber Gasfitter Relationship Specialty Start Date End Date Carrington Fritz MD [address] [place] [address], 1 [place] [address] PCP - General Internal Medicine 12/06/24 documented as of this encounter
--- OUTSIDE RECORDS SUMMARY | 2024-12-20 12:53 | XMS_ITS | Encounter Summary ---
Demographics Address [address] [place] [address] Mobile Phone Email Address Preferred Language [place] Islander Marital Status Single Baptist Affiliation Unknown Race White Ethnic Group Not or Lati no Author [facility] Address [id number] [address] [place] [address] Care Team Providers Care Checkerer Hand Name Role Phone Carrington Fritz MD Primary Care Provider Encounter Details Date Type Department Care Team ([facility] st Contact Info) Description 04/10/2024 Telephone [facility] - ENT [address] [facility] [place] [address] Azeb Chan, RN Social History Tobacco Use Types Packs/Day [...] for patient to call me back at [phone] to review/answer and questions about the referral [...] documented as of this encounter Care Teams Checkerer Hand Relationship Specialty Start Date End Date Carrington Fritz MD [address] [place] [address], [phone] (Work) PCP - General Internal Medicine 12/06/24 documented as of this encounter
--- OUTSIDE RECORDS SUMMARY | 2024-12-20 12:53 | XMS_ITS | Encounter Summary ---
Author Organization [facility] Address [address] [place] [address] Care Team Providers Care Director Software Development Name Role Phone Carrington Fritz MD Unavailable [phone] Carrington Fritz MD Primary Care Provider + Source Comments In the event this information is protected by the Federal Confidentiality of Alcohol and Drug AbusePatient Records regulations: The Federal rules restrict any use of the information to criminally investigate or prosecute any alcohol or drug abuse patient.[facility] Reason for Visit * Reason Comments Orders Encounter Details Date Type Department Care Team ([facility] Contact Info) Description 02/02/2024 Telephone Dermatology [facility] [address] [place] [address] Mackenzie Staton MD [address] [place] [address] Orders Social History Tobacco Use [...] is lower risk 8 11/29/2023 Data from: https://www.neighborhoodatlas.medicine.[facility].edu/. 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 Answer Date of Assessment Author No 09/25/2013 8:21 AM EDT Pravin Cruz, SCANNING COORDINATOR * Are you blind or do you have serious difficulty seeing, even when wearing glasses? Answer Date of Assessment Author No 09/25/2013 8:21 AM EDT Pravin Cruz, SCANNING COORDINATOR * Do you have serious difficulty walking or climbing stairs? Answer Date of Assessment Author No 09/25/2013 8:21 AM EDT Pravin Cruz LPN * Do you have difficulty dressing or bathing? Answer Date of Assessment Author No 09/25/2013 8:21 AM EDT Pravin Cruz, SCANNING COORDINATOR * Because of a physical, mental, or [...] Entry Date Author Yes 09/25/2013 8:21 AM Pravin Lebron LPN documented in this encounter Miscellaneous Notes [...] asking the order be faxed to @ [phone]. Please advise. Patient has been identified by name and birthdate. Duration of symptoms: N/A Person calling: self Call patient at: at home [phone] (home) Was an appointment scheduled: No Closing statement: Results or non-symptom based questions: Thank you for calling [facility], your call will be returned within the next business day. Rachelle Berry documented in this encounter Plan of Treatment Upcoming Encounters Date Type Department Care Team (Latest Contact Info) Description 12/22/2024 10:45 AM EDT Office Visit Dermatology [address] [place] [address] Xander Cook MD [address] [place] [address] Severe Dry Skin around Scalp 12/22/2024 1:00 PM EDT Office Visit Neurology Pain [address] [place] [address] Meena James, SWIMMING TEACHER.FOOD PRODUCTION MANAGER [address] [place] [address] Atypical facial pain [G50.1] 12/25/2024 2:30 PM EDT Office Visit Facial Plastics [address] [place] [address] Jose Eduardo Hays MD [address] [place] [address] Follow-up Surgery complications 02/06/2025 1:00 PM [facility] Gastroenterology [address] [address] David Vazquez MD [address] [place] [address] esophagitis documented as of this encounter Visit Diagnoses Not on filedocumented in this encounter Care Teams Director Software Development Relationship Specialty Start Date End Date Carrington Fritz MD [address] [place] [address], [address] [place], [place] [phone] PCP - General Internal Medicine 06/20/24 Carrington Fritz MD [address] [place] [address], [address] [place], [place] [phone] Referring Internal Medicine 11/26/23 documented as of this encounter
--- OUTSIDE RECORDS SUMMARY | 2024-12-20 12:53 | XMS_ITS | Encounter Summary ---
Author Organization [facility] Address [address] [place] [address] Care Team Providers Care Sql Analyst Name Role Phone Carrington Fritz MD Unavailable [phone] Carrington Fritz MD Primary Care Provider + Source Comments In the event this information is protected by the Federal Confidentiality of Alcohol and Drug AbusePatient Records regulations: The Federal rules restrict any use of the information to criminally investigate or prosecute any alcohol or drug abuse patient.[facility] Encounter Details Date Type Department Care Team (Late st Contact Info) Description 11/24/2024 Patient Msg Neurology [address] [phone] Toya Wright DO [address] [place], [place] [phone] review Social History Tobacco Use Types Packs/Day Years [...] lower risk 8 11/29/2023 Data from: https://www.neighborhoodatlas.medicine.[facility]/. 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 Not [...] AM EDT Office Visit Dermatology [address] [place] [address] Xander Cook MD [address] [place] [address] Severe Dry Skin around Scalp 12/22/2024 1:00 PM EDT Office Visit Neurology Pain [address] [place] [address] Meena James, STICK FEEDER.AVIONICS SYSTEMS REPAIRER [address] [place] [address] Atypical facial pain [G50.1] 12/25/2024 2:30 PM EDT Office Visit Facial Plastics [address] [facility] [address] [phone] Jose Eduardo Hays MD [address] [place] [address] Follow-up Surgery complications 02/06/2025 1:00 PM [facility] Gastroenterology [address] [address] David Vazquez MD [address] [place] [address] esophagitis documented as of this encounter Visit Diagnoses Not on filedocumented in this encounter Care Teams Sql Analyst Relationship Specialty Start Date End Date Carrington Fritz MD [address] [place] [address], [address] [place], [place] [phone] PCP - General Internal Medicine 06/20/24 Carrington Fritz MD [address] [place] [address], [address] [place], [place] [phone] Referring Internal Medicine 11/26/23 documented as of this encounter
--- OUTSIDE RECORDS SUMMARY | 2024-12-20 12:53 | XMS_ITS | Encounter Summary ---
Author Organization [facility] Address [address] [place] [address] Care Team Providers Care Director Of Home Care Hospice Name Role Phone Carrington Fritz MD Unavailable Carrington Fritz MD Primary Care Provider + Source Comments In the event this information is protected by the Federal Confidentiality of Alcohol and Drug AbusePatient Records regulations: The Federal rules restrict any use of the information to criminally investigate or prosecute any alcohol or drug abuse patient.[facility] Encounter Details Date Type Department Care Team (Late st Contact Info) Description 03/22/2024 Patient Msg [place] [address] Provider, Ccf 03/24/24 AISHA @ [facility] Social [...] is lower risk 8 11/29/2023 Data from: https://www.neighborhoodatlas.[facility]/. 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 Answer Date of Assessment Author No 09/25/2013 8:21 AM EDT Pravin Cruz, GEOLOGY PROFESSOR * Are you blind or do you have serious difficulty seeing, even when wearing glasses? Answer Date of Assessment Author No 09/25/2013 8:21 AM EDT Pravin Cruz, GEOLOGY PROFESSOR * Do you have serious difficulty walking or climbing stairs? Answer Date of Assessment Author No 09/25/2013 8:21 AM EDT Pravin Cruz, GEOLOGY PROFESSOR * Do you have difficulty dressing or bathing? Answer Date of Assessment Author No 09/25/2013 8:21 AM EDT Pravin Cruz, GEOLOGY PROFESSOR * Because of a physical, mental, or emotional condition, do you have difficulty doing errands alone such as visiting a doctor's office or shopping? Answer Date of Assessment Author No 09/25/2013 8:21 AM EDT Pravin Cruz, GEOLOGY PROFESSOR documented as of this encounter Mental Status * Because of a physical, mental, or emotional condition, do you have serious difficulty concentrating, remembering, or making decisions? Answer Entry Date Author Yes 09/25/2013 8:21 AM EDT Pravin Cruz, GEOLOGY PROFESSOR documented in this encounter Plan of Treatment Upcoming Encounters Date Type Department Care Team (Latest Contact Info) Description 12/22/2024 10:45 AM EDT Office Visit Dermatology [address] [place] [address] Xander Cook MD [address] [place] [address] Severe Dry Skin around Scalp 12/22/2024 1:00 PM EDT Office Visit Neurology Pain [address] [place] [address] Meena James APRN.LEAD ADVISOR [address] [place] [address] Atypical facial pain [G50.1] 12/25/2024 2:30 PM EDT Office Visit Facial Plastics [address] [phone] Jose Eduardo Hays MD [address] [place] [address] Follow-up Surgery complications 02/06/2025 1:00 PM [facility] Gastroenterology [address] [address] David Vazquez MD [address] [place] [address] esophagitis documented as of this encounter Visit Diagnoses Not on filedocumented in this encounter Care Teams Director Of Home Care Hospice Relationship Specialty Start Date End Date Carrington Fritz MD [address] [place] [address], [address] [place] [address] PCP - General Internal Medicine 06/20/24 Carrington Fritz MD [address] [place] [address], [address] [place] [address] Referring Internal Medicine 11/26/23 documented as of this encounter
--- OUTSIDE RECORDS SUMMARY | 2024-12-20 12:53 | XMS_ITS | Encounter Summary ---
Author Organization [facility] Address [address] [place] [address] Care Team Providers Care Extrusion Die Coordinator Name Role Phone Carrington Fritz MD Unavailable [phone] Carrington Fritz MD Primary Care Provider + Source Comments In the event this information is protected by the Federal Confidentiality of Alcohol and Drug AbusePatient Records regulations: The Federal rules restrict any use of the information to criminally investigate or prosecute any alcohol or drug abuse patient.[facility] Encounter Details Date Type Department Care Team (Late st Contact Info) Description 04/11/2024 Patient Msg Infectious Disease [address] [phone] Ayan Aquino MD Appointment Request () Social History Tobacco Use [...] is lower risk 8 11/29/2023 Data from: https://www.neighborhoodatlas.[facility]/. 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 Not [...] EDT Office Visit Dermatology [address] [place] [address] Xander Cook MD [address] [place] [address] Severe Dry Skin around Scalp 12/22/2024 1:00 PM EDT Office Visit Neurology Pain [address] [place] [address] Meena James APRN.LEATHER LEVELER [address] [place] [address] Atypical facial pain [G50.1] 12/25/2024 2:30 PM EDT Office Visit Facial Plastics [address] [place] [address] [phone] Jose Eduardo Hays MD [address] [place] [address] Follow-up Surgery complications 02/06/2025 1:00 PM [facility] Gastroenterology [address] [address] David Vazquez MD [address] [place] [address] esophagitis documented as of this encounter Visit Diagnoses Not on filedocumented in this encounter Care Teams Extrusion Die Coordinator Relationship Specialty Start Date End Date Carrington Fritz MD [address] [place] [address], [address] [place], [place] [phone] PCP - General Internal Medicine 06/20/24 Carrington Fritz MD [address] [place] [address], [address] [place], [place] [phone] Referring Internal Medicine 11/26/23 documented as of this encounter
--- OUTSIDE RECORDS SUMMARY | 2024-12-20 12:53 | XMS_ITS | Encounter Summary ---
Author Organization [facility] Address [address] [place] [address] Care Team Providers Care String Top Sealer Name Role Phone Carrington Fritz MD Unavailable [phone] Carrington Fritz MD Primary Care Provider + Source Comments In the event this information is protected by the Federal Confidentiality of Alcohol and Drug AbusePatient Records regulations: The Federal rules restrict any use of the information to criminally investigate or prosecute any alcohol or drug abuse patient.[facility] Reason for Visit * Reason Comments Facial Pain Encounter Details Date Type Department Care Team ([facility] st Contact Info) Description 12/15/2024 Telephone Facial Plastics/Reconstruction [address] [place], [place] [phone] Jose Eduardo Hays MD [address] [place] [address] Facial Pain Social History Tobacco Use Types Packs/Day Years [...] is lower risk 8 11/29/2023 Data from: https://www.neighborhoodatlas.medicine.[facility]/. 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 Not on [...] Miscellaneous Notes * Telephone Encounter - Tesha Harris RN - 12/15/2024 11:05 AM EDT Patient calling, distressed States he has had increased pain above lips Has intense pressure under nose Has pain above and behind right ear to his jaw Roof of his mouth and gums are very sore Having trouble swallowing, feels like his upper lip and tongue is twisting No fever He has been taking in fluids and ice cubes with some difficulty Vomited once this morning He is frustrated and worn out from his chronic pain Declining ER, states he went recently and was told pain was due to TMJ, was discharged with a muscle relaxer Does not want to go back to previous ENT He made soonest available appt which is on 12/25 Asking for recommendations in the interim He can be reached at home number, may leave a message GO TO THE EMERGENCY ROOM OR CALL 911 IF: * You develop any new symptoms * Your condition worsens * You are concerned or anxious about your condition for any other reason. If you have any questions, call back. documented in this encounter Plan of Treatment Upcoming Encounters Date Type Department Care Team (Latest Contact Info) Description 12/22/2024 10:45 AM EDT Office Visit Dermatology [address] [place] [address] Xander Cook MD [address] [place] [address] Severe Dry Skin around Scalp 12/22/2024 1:00 PM EDT Office Visit Neurology Pain [address] [place] [address] Meena James, DERIK.COIL WRAPPER [address] [place] [address] Atypical facial pain [G50.1] 12/25/2024 2:30 PM EDT Office Visit Facial Plastics [address] [phone] Jose Eduardo Hays MD [address] [place] [address] Follow-up Surgery complications 02/06/2025 1:00 PM [facility] Gastroenterology [address] [address] David Vazquez MD [address] [place] [address] esophagitis documented as of this encounter Visit Diagnoses Not on filedocumented in this encounter Care Teams String Top Sealer Relationship Specialty Start Date End Date Carrington Fritz MD [address] [place] [address], [address] [place], [place] [phone] PCP - General Internal Medicine 06/20/24 Carrington Fritz MD [address] [place] [address], [address] [place], [place] [phone] Referring Internal Medicine 11/26/23 documented as of this encounter
--- OUTSIDE RECORDS SUMMARY | 2024-12-20 12:53 | XMS_ITS | Encounter Summary ---
Demographics Address [address] [place] [address] Mobile Phone Email Address Preferred Language Mauritanian Marital Status Single Sabianist Affiliation Unknown Race White Ethnic Group Not or Lati no Author Organization [employer] Address [id number] [address] [place] [address] Care Team Providers Care Researcher Name Role Phone Carrington Fritz MD Primary Care Provider [phone] Reason for Visit * Reason Onset Date Comments Med Refill 04/08/2024 Encounter Details Date Type Department Care Team (Late st Contact Info) Description 04/08/2024 Refill [facility] Internal Medicine/Pediatrics [address] [place] [address] 1 [place] [address] Carrington Fritz MD [address] [place] [address], [address] [place] [address] Social History Tobacco Use Types [...] as of this encounter Plan of Treatment Not on file documented as of this encounter Visit Diagnoses Not on filedocumented in this encounter Additional Health Concerns Assessment Noted Time PHQ-9 Depression Total Score: 0 11/11/19 24 1:55 PM EDT documented as of this encounter Care Teams Researcher Relationship Specialty Start Date End Date Carrington Fritz MD [address] [place] [address], 1 [place] [address] PCP - General Internal Medicine 12/06/24 documented as of this encounter
--- OUTSIDE RECORDS SUMMARY | 2024-12-20 12:53 | XMS_ITS | Encounter Summary ---
Demographics Address [address] [place] [address] Mobile Phone Email Address Preferred Language Mauritanian Marital Status Single Mormon Affiliation Unknown Race White Ethnic Group Not or Lati no Author Organization [facility] tem Address [id number] [address] [place] [address] Care Team Providers Care Lawnmower Repair Mechanic Name Role Phone Carrington Fritz MD Primary Care Provider [phone] Reason for Visit * Reason Comments Med Change Request Encounter Details Date Type Department Care Team ([facility] st Contact Info) Description 07/04/2024 Refill [facility] [address] [place] [address] Miguel Hernandez PA [address] [place], [place] [phone] TMJ (temporomandibular joint disorder) Social History Tobacco [...] documented as of this encounter Care Teams Lawnmower Repair Mechanic Relationship Specialty Start Date End Date Carrington Fritz MD [address] [place] [address], [place] [address] PCP - General Internal Medicine 12/06/24 documented as of this encounter
--- OUTSIDE RECORDS SUMMARY | 2024-12-20 12:53 | XMS_ITS | Encounter Summary ---
Demographics Address [address] [place] [address] Mobile Phone Email Address Preferred Language Trinidadian Marital Status Single Mandaeism Affiliation Unknown Race White Ethnic Group Not or Lati no Author Organization [employer] Address [id number] [address] [place] [address] Care Team Providers Care Electric Meter Tester Shop Name Role Phone Carrington Fritz MD Primary Care Provider [phone] Encounter Details Date Type Department Care Team ([facility] st Contact Info) Description 07/14/2023 Orders Only [facility], [facility] [address] [facility] [address] [place] [address] Duran Wilson, DO [address] [facility] [address] [place] [address] Social History Tobacco Use Types Packs/Day Years [...] on filedocumented in this encounter Care Teams Electric Meter Tester Shop Relationship Specialty Start Date End Date Carrington Fritz MD [address] [place] [address], 1 [place] [address] PCP - General Internal Medicine 12/06/24 documented as of this encounter
--- OUTSIDE RECORDS SUMMARY | 2024-12-20 12:53 | XMS_ITS | Encounter Summary ---
Author Organization [facility] Address [address] [place] [address] Care Team Providers Care Respiratory Director Name Role Phone Carrington Fritz MD Unavailable [phone] Carrington Fritz MD Primary Care Provider + Source Comments In the event this information is protected by the Federal Confidentiality of Alcohol and Drug AbusePatient Records regulations: The Federal rules restrict any use of the information to criminally investigate or prosecute any alcohol or drug abuse patient.[facility] Encounter Details Date Type Department Care Team (Late st Contact Info) Description 01/12/2024 Patient Msg Neurology Headache [facility] [address] [phone] [place] [address] [place] [address] Appointment Request Social History Tobacco [...] is lower risk 8 11/29/2023 Data from: https://www.neighborhoodatlas.medicine.[facility].edu/. 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 Answer Date of Assessment Author No 09/25/2013 8:21 AM EDT Pravin Cruz, SPECIAL EDUCATION PARAEDUCATOR * Are you blind or do you have serious difficulty seeing, even when wearing glasses? Answer Date of Assessment Author No 09/25/2013 8:21 AM EDT Pravin Cruz, SPECIAL EDUCATION PARAEDUCATOR * Do you have serious difficulty walking or climbing stairs? Answer Date of Assessment Author No 09/25/2013 8:21 AM EDT Pravin Cruz, SPECIAL EDUCATION PARAEDUCATOR * Do you have difficulty dressing or bathing? Answer Date of Assessment Author No 09/25/2013 8:21 AM EDT Pravin Cruz, SPECIAL EDUCATION PARAEDUCATOR * Because of a physical, mental, or [...] Pravin Lebron LPN documented in this encounter Plan of Treatment Upcoming Encounters Date Type Department Care Team (Latest Contact Info) Description 12/22/2024 10:45 AM EDT Office Visit Dermatology [address] [place] [address] Xander Cook MD [address] [place] [address] Severe Dry Skin around Scalp 12/22/2024 1:00 PM EDT Office Visit Neurology Pain [address] [place] [address] Meena James, MINIATURE SET CONSTRUCTOR.BATTERY ASSEMBLER DRY CELL [address] [place] [address] Atypical facial pain [G50.1] 12/25/2024 2:30 PM EDT Office Visit Facial Plastics [address] [address] Jose Eduardo Hays MD [address] [place] [address] Follow-up Surgery complications 02/06/2025 1:00 PM [facility] Gastroenterology [address] [address] David Vazquez MD [address] [place] [address] esophagitis documented as of this encounter Visit Diagnoses Not on filedocumented in this encounter Care Teams Respiratory Director Relationship Specialty Start Date End Date Carrington Fritz MD [address] [place] [address], [address] [place] [address] PCP - General Internal Medicine 06/20/24 Carrington Fritz MD [address] [place] [address], [address] [place], [place] [phone] Referring Internal Medicine 11/26/23 documented as of this encounter
--- OUTSIDE RECORDS SUMMARY | 2024-12-20 12:53 | XMS_ITS | Encounter Summary ---
Author Organization [facility] Address [address] [place] [address] Care Team Providers Care Teacher Physically Impaired Name Role Phone Carrington Fritz MD Unavailable [phone] Carrington Fritz MD Primary Care Provider + Source Comments In the event this information is protected by the Federal Confidentiality of Alcohol and Drug AbusePatient Records regulations: The Federal rules restrict any use of the information to criminally investigate or prosecute any alcohol or drug abuse patient.[facility] Encounter Details Date Type Department Care Team (Late st Contact Info) Description 01/07/2024 Telephone Neurology Headache [facility] [address] [phone] [place] [address] [place], [place] [phone] Social History Tobacco Use Types Packs/Day Years [...] is lower risk 8 11/29/2023 Data from: https://www.neighborhoodatlas.medicine.[facility]/. 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 Answer Date of Assessment Author No 09/25/2013 8:21 AM EDT Pravin Cruz, STAMPING DIE TRY OUT WORKER * Are you blind or do you have serious difficulty seeing, even when wearing glasses? Answer Date of Assessment Author No 09/25/2013 8:21 AM EDT Pravin Cruz, STAMPING DIE TRY OUT WORKER * Do you have serious difficulty walking or climbing stairs? Answer Date of Assessment Author No 09/25/2013 8:21 AM EDT Pravin Cruz, STAMPING DIE TRY OUT WORKER * Do you have difficulty dressing or bathing? Answer Date of Assessment Author No 09/25/2013 8:21 AM EDT Pravin Cruz, STAMPING DIE TRY OUT WORKER * Because of a physical, mental, or emotional condition, do you have difficulty doing errands alone such as visiting a doctor's office or shopping? Answer Date of Assessment Author No 09/25/2013 8:21 AM EDT Pravin Cruz STAMPING DIE TRY OUT WORKER documented as of this encounter Mental Status [...] we can view his MRI ofTMJ from [facility]. I informed patient that we can view [...] scheduling a follow up appointment with an HARPOON ENGAGEMENT PLANNING OPERATOR or PA to discuss. Patient verbalized understanding. [...] 10:45 AM EDT Office Visit Dermatology [address] [address] Xander Cook MD [address] [place] [address] Severe Dry Skin around Scalp 12/22/2024 1:00 PM EDT Office Visit Neurology Pain [address] [place] [address] Meena James, DERIK.TRANSPORT TECH [address] [place] [address] Atypical facial pain [G50.1] 12/25/2024 2:30 PM EDT Office Visit Facial Plastics [address] [facility] [address] [phone] Jose Eduardo Hays MD [address] [place] [address] Follow-up Surgery complications 02/06/2025 1:00 PM [facility] Gastroenterology [address] [address] David Vazquez MD [address] [place] [address] esophagitis documented as of this encounter Visit Diagnoses Not on filedocumented in this encounter Care Teams Teacher Physically Impaired Relationship Specialty Start Date End Date Carrington Fritz MD [address] [place] [address], [address] [place], [place] [phone] PCP - General Internal Medicine 06/20/24 Carrington Fritz MD [address] [place] [address], [address] [place] [address] Referring Internal Medicine 11/26/23 documented as of this encounter
--- OUTSIDE RECORDS SUMMARY | 2024-12-20 12:53 | XMS_ITS | Encounter Summary ---
Author Organization [facility] Address [address] [place] [address] Care Team Providers Care Director Diversity Name Role Phone Carrington Fritz MD Unavailable [phone] Carrington Fritz MD Primary Care Provider + Source Comments In the event this information is protected by the Federal Confidentiality of Alcohol and Drug AbusePatient Records regulations: The Federal rules restrict any use of the information to criminally investigate or prosecute any alcohol or drug abuse patient.[facility] Encounter Details Date Type Department Care Team (Late st Contact Info) Description 03/30/2024 Patient Msg Plastic Surgery [address] [place], [place] [phone] Mackenzie Staton MD [address] [place] [address] Appointment Request () Social History [...] lower risk 8 11/29/2023 Data from: https://www.neighborhoodatlas.medicine.[facility]/. 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 Answer Date of Assessment Author No 09/25/2013 8:21 AM EDT Pravin Cruz, FAST FOOD RESTAURANT MANAGER * Are you blind or do [...] No 09/25/2013 8:21 AM EDT Pravin Cruz, FAST FOOD RESTAURANT MANAGER * Because of a physical, mental, [...] EDT Office Visit Dermatology [address] [place] [phone] Xander Cook MD [address] [place] [address] Severe Dry Skin around Scalp 12/22/2024 1:00 PM EDT Office Visit Neurology Pain [address] [place] [address] Meena James, HAIRSPRING SETTER.HOG GRADER [address] [place] [address] Atypical facial pain [G50.1] 12/25/2024 2:30 PM EDT Office Visit Facial Plastics [address] [address] Jose Eduardo Hays MD [address] [place] [address] Follow-up Surgery complications 02/06/2025 1:00 PM [facility] Gastroenterology [address] [address] David Vazquez MD [address] [place] [address] esophagitis documented as of this encounter Visit Diagnoses Not on filedocumented in this encounter Care Teams Director Diversity Relationship Specialty Start Date End Date Carrington Fritz MD [address] [place] [address], [address] [place] [address] PCP - General Internal Medicine 06/20/24 Carrington Fritz MD [address] [place] [address], [address] [place], [place] [phone] Referring Internal Medicine 11/26/23 documented as of this encounter
--- OUTSIDE RECORDS SUMMARY | 2024-12-20 12:53 | XMS_ITS | Encounter Summary ---
Author Organization [facility] Address [address] [place] [address] Care Team Providers Care Boiler Engineer Name Role Phone Carrington Fritz MD Unavailable [phone] Carrington Fritz MD Primary Care Provider + Source Comments In the event this information is protected by the Federal Confidentiality of Alcohol and Drug AbusePatient Records regulations: The Federal rules restrict any use of the information to criminally investigate or prosecute any alcohol or drug abuse patient.[facility] Encounter Details Date Type Department Care Team (Late st Contact Info) Description 07/21/2024 Patient Msg Infectious Disease [address] [phone] Ayan Aquino MD Appointment Request Social History Tobacco Use Types [...] is lower risk 8 11/29/2023 Data from: https://www.neighborhoodatlas.[facility]/. 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 Not [...] EDT Office Visit Dermatology [address] [place] [address] Xander Cook MD [address] [place] [address] Severe Dry Skin around Scalp 12/22/2024 1:00 PM EDT Office Visit Neurology Pain [address] [place] [address] Meena James APRN.SPECIALTY SALES REPRESENTATIVE [address] [place] [address] Atypical facial pain [G50.1] 12/25/2024 2:30 PM EDT Office Visit Facial Plastics [address] [place] [phone] Jose Eduardo Hays MD [address] [place] [address] Follow-up Surgery complications 02/06/2025 1:00 PM [facility] Gastroenterology [address] [address] David Vazquez MD [address] [place] [address] esophagitis documented as of this encounter Visit Diagnoses Not on filedocumented in this encounter Care Teams Boiler Engineer Relationship Specialty Start Date End Date Carrington Fritz MD [address] [place] [address], [address] [place] [address] PCP - General Internal Medicine 06/20/24 Carrington Fritz MD [address] [place] [address], [address] [place] [address] Referring Internal Medicine 11/26/23 documented as of this encounter
--- OUTSIDE RECORDS SUMMARY | 2024-12-20 12:53 | XMS_ITS | Encounter Summary ---
Author Organization [facility] Address [address] [place] [address] Care Team Providers Care Hematology Technician Name Role Phone Carrington Fritz MD Unavailable [phone] Carrington Fritz MD Primary Care Provider + Source Comments In the event this information is protected by the Federal Confidentiality of Alcohol and Drug AbusePatient Records regulations: The Federal rules restrict any use of the information to criminally investigate or prosecute any alcohol or drug abuse patient.[facility] Encounter Details Date Type Department Care Team (Late st Contact Info) Description 11/07/2024 Patient Msg Gastroenterology [address] [phone] Sofie Reed, DERIK.ROUGH PLANER TENDER [address] [place], [place] [phone] EGD results Social History Tobacco Use Types Packs/Day [...] is lower risk 8 11/29/2023 Data from: https://www.neighborhoodatlas.[facility]/. 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 Not on [...] 10:45 AM EDT Office Visit Dermatology [address] [address] Xander Cook MD [address] [place] [address] Severe Dry Skin around Scalp 12/22/2024 1:00 PM EDT Office Visit Neurology Pain [address] [place] [address] Meena James, RUBBER BOOTS AND SHOES REPAIRER.ROUGH PLANER TENDER [address] [place] [address] Atypical facial pain [G50.1] 12/25/2024 2:30 PM EDT Office Visit Facial Plastics [address] [phone] Jose Eduardo Hays MD [address] [place] [address] Follow-up Surgery complications 02/06/2025 1:00 PM [facility] Gastroenterology [address] [address] David Vazquez MD [address] [place] [address] esophagitis documented as of this encounter Visit Diagnoses Not on filedocumented in this encounter Care Teams Hematology Technician Relationship Specialty Start Date End Date Carrington Fritz MD [address] [place] [address], [address] [place], [place] [phone] PCP - General Internal Medicine 06/20/24 Carrington Fritz MD [address] [place] [address], [address] [place] [address] Referring Internal Medicine 11/26/23 documented as of this encounter
--- OUTSIDE RECORDS SUMMARY | 2024-12-20 12:53 | XMS_ITS | Encounter Summary ---
Author Organization [facility] Address [address] [place] [address] Care Team Providers Care Clay Processing Factory Worker Name Role Phone Carrington Fritz MD Unavailable [phone] Carrington Fritz MD Primary Care Provider + Source Comments In the event this information is protected by the Federal Confidentiality of Alcohol and Drug AbusePatient Records regulations: The Federal rules restrict any use of the information to criminally investigate or prosecute any alcohol or drug abuse patient.[facility] Encounter Details Date Type Department Care Team (Late st Contact Info) Description 05/09/2024 Patient Msg [facility] [address] [place] [address] Provider, Ccf Phone Call follow up Social [...] is lower risk 8 11/29/2023 Data from: https://www.neighborhoodatlas.[facility]/. 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 Answer Date of Assessment Author No 09/25/2013 8:21 AM EDT Pravin Cruz, INCOMING INSPECTOR * Are you blind or do you have serious difficulty seeing, even when wearing glasses? Answer Date of Assessment Author No 09/25/2013 8:21 AM EDT Pravin Cruz, INCOMING INSPECTOR * Do you have serious difficulty walking or climbing stairs? Answer Date of Assessment Author No 09/25/2013 8:21 AM EDT Pravin Cruz, INCOMING INSPECTOR * Do you have difficulty dressing or bathing? Answer Date of Assessment Author No 09/25/2013 8:21 AM EDT Pravin Cruz, INCOMING INSPECTOR * Because of a physical, mental, or emotional condition, do you have difficulty doing errands alone such as visiting a doctor's office or shopping? Answer Date of Assessment Author No 09/25/2013 8:21 AM EDT Pravin Cruz, INCOMING INSPECTOR documented as of this encounter Mental Status * Because of a physical, mental, or emotional condition, do you have serious difficulty concentrating, remembering, or making decisions? Answer Entry Date Author Yes 09/25/2013 8:21 AM EDT Pravin Cruz, INCOMING INSPECTOR documented in this encounter Plan of Treatment Upcoming Encounters Date Type Department Care Team (Latest Contact Info) Description 12/22/2024 10:45 AM EDT Office Visit Dermatology [address] [place] [address] Xander Cook MD [address] [place] [address] Severe Dry Skin around Scalp 12/22/2024 1:00 PM EDT Office Visit Neurology Pain [address] [place] [address] Meena James APRN.IT RECRUITER [address] [place] [address] Atypical facial pain [G50.1] 12/25/2024 2:30 PM EDT Office Visit Facial Plastics [address] [phone] Jose Eduardo Hays MD [address] [place] [address] Follow-up Surgery complications 02/06/2025 1:00 PM [facility] Gastroenterology [address] [address] David Vazquez MD [address] [place] [address] esophagitis documented as of this encounter Visit Diagnoses Not on filedocumented in this encounter Care Teams Clay Processing Factory Worker Relationship Specialty Start Date End Date Carrington Frtiz MD [address] [place] [address], [address] [place] [address] PCP - General Internal Medicine 06/20/24 Carrington Fritz MD [address] [place] [address], [address] [place] [address] Referring Internal Medicine 11/26/23 documented as of this encounter
--- OUTSIDE RECORDS SUMMARY | 2024-12-20 12:53 | XMS_ITS | Encounter Summary ---
Author Organization [facility] Address [address] [place] [address] Care Team Providers Care Literature Teacher Name Role Phone Carrington Fritz MD Unavailable Carrington Fritz MD Primary Care Provider + Source Comments In the event this information is protected by the Federal Confidentiality of Alcohol and Drug AbusePatient Records regulations: The Federal rules restrict any use of the information to criminally investigate or prosecute any alcohol or drug abuse patient.[facility] Encounter Details Date Type Department Care Team (Late st Contact Info) Description 04/07/2024 Get Medical Advice Otolaryngology [address] [place], [place] [phone] Caro Silva, DERIK.PRODUCT/INDUSTRY CONSULTANT [address] [place], [place] [phone] Tmj Social History Tobacco Use Types Packs/Day [...] is lower risk 8 11/29/2023 Data from: https://www.neighborhoodatlas.medicine.[facility]/. Last address used for [...] No 09/25/2013 8:21 AM EDT Pravin Cruz, DROSS PULLER * Are you blind or do you have serious difficulty seeing, even when wearing glasses? Answer Date of Assessment Author No 09/25/2013 8:21 AM EDT Pravin Cruz, DROSS PULLER * Do you have serious difficulty walking or climbing stairs? Answer Date of Assessment Author No 09/25/2013 8:21 AM EDT Pravin Cruz, DROSS PULLER * Do you have difficulty dressing or bathing? Answer Date of Assessment Author No 09/25/2013 8:21 AM EDT Pravin Cruz, DROSS PULLER * Because of a physical, mental, or [...] EDT Office Visit Dermatology [address] [place] [phone] Xander Cook MD [address] [place] [address] Severe Dry Skin around Scalp 12/22/2024 1:00 PM EDT Office Visit Neurology Pain [address] [place] [address] Meena James, SPD MANAGER.PRODUCT/INDUSTRY CONSULTANT [address] [place] [address] Atypical facial pain [G50.1] 12/25/2024 2:30 PM EDT Office Visit Facial Plastics [address] [phone] Jose Eduardo Hays MD [address] [place] [address] Follow-up Surgery complications 02/06/2025 1:00 PM [facility] Gastroenterology [address] [address] David Vazquez MD [address] [place] [address] esophagitis documented as of this encounter Visit Diagnoses Not on filedocumented in this encounter Care Teams Literature Teacher Relationship Specialty Start Date End Date Carrington Fritz MD [address] [place] [address], [address] [place] [address] PCP - General Internal Medicine 06/20/24 Carrington Fritz MD [address] [place] [address], [address] [place], [place] [phone] Referring Internal Medicine 11/26/23 documented as of this encounter
--- OUTSIDE RECORDS SUMMARY | 2024-12-20 12:53 | XMS_ITS | Encounter Summary ---
Author Organization [facility] Address [address] [place] [address] Care Team Providers Care Tubing Tester Name Role Phone Carrington Fritz MD Unavailable [phone] Carrington Fritz MD Primary Care Provider + Source Comments In the event this information is protected by the Federal Confidentiality of Alcohol and Drug AbusePatient Records regulations: The Federal rules restrict any use of the information to criminally investigate or prosecute any alcohol or drug abuse patient.[facility] Encounter Details Date Type Department Care Team (Late st Contact Info) Description 05/09/2024 [place] [address] Provider, Ccf Questionnaire Submission Social History Tobacco [...] is lower risk 8 11/29/2023 Data from: https://www.neighborhoodatlas.medicine.[facility].edu/. Last address used for calculation [address] [facility] 11/29/2023 Sex and Gender Information Value [...] No 09/25/2013 8:21 AM EDT Pravin Cruz, FIRE MARSHAL * Are you blind or do you have serious difficulty seeing, even when wearing glasses? Answer Date of Assessment Author No 09/25/2013 8:21 AM EDT Pravin Cruz, FIRE MARSHAL * Do you have serious difficulty walking or climbing stairs? Answer Date of Assessment Author No 09/25/2013 8:21 AM EDT Pravin Cruz, FIRE MARSHAL * Do you have difficulty dressing or bathing? Answer Date of Assessment Author No 09/25/2013 8:21 AM EDT Pravin Cruz, FIRE MARSHAL * Because of a physical, mental, or emotional condition, do you have difficulty doing errands alone such as visiting a doctor's office or shopping? Answer Date of Assessment Author No 09/25/2013 8:21 AM EDT Pravin Cruz, FIRE MARSHAL documented as of this encounter Mental Status * Because of a physical, mental, or emotional condition, do you have serious difficulty concentrating, remembering, or making decisions? Answer Entry Date Author Yes 09/25/2013 8:21 AM EDT Pravin Cruz FIRE MARSHAL documented in this encounter Plan of Treatment Upcoming Encounters Date Type Department Care Team (Latest Contact Info) Description 12/22/2024 10:45 AM EDT Office Visit Dermatology [address] [place] [address] Xander Cook MD [address] [place] [address] Severe Dry Skin around Scalp 12/22/2024 1:00 PM EDT Office Visit Neurology Pain [address] [place] [address] Meena James APRN.CARE TEAM ASSISTANT [address] [place] [address] Atypical facial pain [G50.1] 12/25/2024 2:30 PM EDT Office Visit Facial Plastics [address] [phone] Jose Eduardo Hays MD [address] [place] [address] Follow-up Surgery complications 02/06/2025 1:00 PM [facility] Gastroenterology [address] [address] David Vazquez MD [address] [place] [address] esophagitis documented as of this encounter Visit Diagnoses Not on filedocumented in this encounter Care Teams Tubing Tester Relationship Specialty Start Date End Date Carrington Fritz MD [address] [place] [address], [address] [place] [address] PCP - General Internal Medicine 06/20/24 Carrington Fritz MD [address] [place] [address], [address] [place] [address] Referring Internal Medicine 11/26/23 documented as of this encounter
--- OUTSIDE RECORDS SUMMARY | 2024-12-20 12:53 | XMS_ITS | Encounter Summary ---
Author Organization [facility] Address [address] [place] [address] Care Team Providers Care Junior Data Analyst Name Role Phone Carrington Fritz MD Unavailable [phone] Carrington Fritz MD Primary Care Provider + Source Comments In the event this information is protected by the Federal Confidentiality of Alcohol and Drug AbusePatient Records regulations: The Federal rules restrict any use of the information to criminally investigate or prosecute any alcohol or drug abuse patient.[facility] Encounter Details Date Type Department Care Team (Late st Contact Info) Description 07/21/2024 Patient Msg Dermatology [place] [address] [place] [address] Evelina Arrington MD [address] [place] [address] Appointment Request Social History Tobacco Use Types [...] risk 8 11/29/2023 Data from: https://www.neighborhoodatlas.medicine.[facility]/. 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 Not on [...] EDT Office Visit Dermatology [address] [place] [address] Xander Cook MD [address] [place] [address] Severe Dry Skin around Scalp 12/22/2024 1:00 PM EDT Office Visit Neurology Pain [address] [place] [address] Meena James APRN.QUENCHING MACHINE OPERATOR [address] [place] [address] Atypical facial pain [G50.1] 12/25/2024 2:30 PM EDT Office Visit Facial Plastics [address] [phone] Jose Eduardo Hays MD [address] [place] [address] Follow-up Surgery complications 02/06/2025 1:00 PM [facility] Gastroenterology [address] [address] David Vazquez MD [address] [place] [address] esophagitis documented as of this encounter Visit Diagnoses Not on filedocumented in this encounter Care Teams Junior Data Analyst Relationship Specialty Start Date End Date Carrington Fritz MD [address] [place] [address], [address] [place], [place] [phone] PCP - General Internal Medicine 06/20/24 Carrington Fritz MD [address] [place] [address], [address] [place], [place] [phone] Referring Internal Medicine 11/26/23 documented as of this encounter
--- OUTSIDE RECORDS SUMMARY | 2024-12-20 12:53 | XMS_ITS | Clinical Summary ---
Author Organization [facility] Address [address] [place] [address] Care Team Providers Care System Engineer Name Role Phone Self, Self Primary Care Provider UnavailSebastien Moyer Unavailable Lee Mane DMD Unavailable [phone] Allergies Active Allergy Reactions Criticality Noted Date Comments Penicillins 03/16/2023 Medications hydrOXYzine pamoate (Vistaril) 50 MG capsuleIndication s:Primary insomnia Take 1 capsule by mouth 3 times daily as needed for Anxiety. 84 capsule 2 4 Active Additional Information Patient not taking.Reported on 12/06/2024 zolpidem 10 MG tabletIndications :Primary insomnia Take 1 tablet by mouth at bedtime as needed for Sleep for up to 7 days. 7 tablet 3 4 Active Additional Information Patient not taking.Reported on 12/06/2024 atomoxetine (Strattera) 40 MG capsuleIndication s:Attention deficit hyperactivity disorder (ADHD), unspecified ADHD type Take 1 capsule by mouth daily. 28 capsule 2 4 Active Additional Information Patient not taking.Reported on 12/06/2024 QUEtiapine 100 MG tabletIndications :Mood disorder Take 2 tablets by mouth at bedtime. 56 tablet 2 4 Active Additional Information Patient not taking.Reported on 12/06/2024 Ibuprofen 200 MG tablet Take 4 tablets by mouth every 6 hours as needed for Mild Pain (x3 per day). Active Acetaminophen 325 MG tablet Take 200 mg by mouth every 6 hours as needed for Severe Pain (x3 day). Active pregabalin 25 MG capsule Take 8 capsules by mouth 3 times daily. Active buprenorphine 2 mg/naloxone 0.5 mg (SUBOXONE) SL film Place 1 strip under tongue daily. Active baclofen 10 MG tablet Take 1 tablet by mouth 4 times daily. Active Fluconazole 100 MG tablet Take 1 tablet by mouth daily. Active Ketoconazole 2 % Shampoo shampoo Apply 1 Application topically 3 times weekly. Apply topically to wet hair 3-4 times a week Active Polyethylene glycol 17 GM/SCOOP Powder powder Take 17 g by mouth daily. Active DULoxetine [address] Particles capsule DR Take 1 capsule by mouth daily. Active OXcarbazepine 150 MG tablet Take 1 tablet by mouth 2 times daily. Active omeprazole [address] capsule Take 1 capsule by mouth daily. Active Cyanocobalamin 1000 MCG/ML Kit Inject as directed. Active clonazePAM 1 MG tablet Take 1 tablet by mouth 2 times daily. Active triamcinolone 0.025 % Cream cream Apply 1 Application topically 2 times daily. 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 Opioid dependence in remission 03/16/2023 Attention deficit hyperactivity disorder (ADHD) 03/16/2023 Primary insomnia 03/16/2023 Encounters Date Type Department Care Team Description 12/14/2024 1:00 PM EDT [facility] [address] [place] [phone] Sebastien Warren Soraya C, [place], [place] Edentulous alveolar ridge (Primary Dx) 12/12/2024 Telephone [facility] [address] [place] [phone] Sebastien Warren 12/11/2024 Telephone [facility] [address] [place] [phone] Laly Brewster Consult 12/11/2024 Documentation Only [facility] [address] [place] [phone] Sebastien Warren Orofacial pain (Primary Dx) 12/06/2024 1:45 PM EDT Office Visit Oral and Maxillofacial Imaging [address] [place] [phone] Chaya Mittal Encounter for dental examination (Primary Dx) 12/06/2024 1:00 PM EDT [facility] [address] [place] [phone] Sebastien Warren James, DDS Encounter for dental examination (Primary Dx); Edentulous 10/10/2024 Telephone [facility] [address] [place] [phone] Elisa Best Appointment from Last 3 Months Social History Tobacco [...] Orientation Straight 02/08/2024 4: 10 PM EST Last Filed Vital Signs Vital Sign Reading Time Taken Comments Blood Pressure 137/100 12/14/2024 1:01 PM EDT Pulse 91 12/14/2024 1:01 PM EDT Temperature - - Respiratory Rate - - Oxygen Saturation - - Inhaled Oxygen Concentration - - Weight - - Height - - Body Mass Index - - Plan of Treatment Health Maintenance Due Date Last Done Comments Dental Prophylaxis 1976 HEPATITIS C VIRUS SCREENING 1976 HIV SCREENING DISCUSSION 02/11/1991 LIPID SCREENING 2016 COLORECTAL CANCER SCREENING DISCUSSION 02/11/2021 HEP B VACCINE (2 of 3 - Hep B Twinrix 3-dose series) 04/05/2024 03/08/2024 COVID-19 VACCINE (1 - season) 2024 INFLUENZA VACCINE (#1) 2024 , 01/01/2023, 02/24/2022 Dental Oral Exam 06/07/2025 12/06/2024 TETANUS 03/08/2034 03/08/2024 TDAP (ADULT) Completed 03/08/2024 PNEUMOCOCCAL VACCINE SERIES Completed 11/10/2024, 0 04/26/2023 Procedures Procedure Name Priority Date/Time Associated Diagnosis Comments OTHER SERVICES - UNSPECIFIED REMOVABLE PROSTHODONTIC PROCEDURE Routine 12/14/2024 1:00 PM EDT Edentulous alveolar ridge Full PANORAMIC RADIOGRAPHIC IMAGE Routine 12/06/2024 1:45 PM EDT Encounter for dental examination COMPREHENSIVE ORAL EVAL - NEW/EST PATIENT Routine 12/06/2024 1:00 PM EDT Encounter for dental examination ORAL HYGIENE INSTRUCTIONS Routine 2024 1:00 PM [...] 1 EXTRACTION Routine 12/06/2024 12:00 AM EDT from Last 3 [place] [address] [facility] [place] [address] [facility] Member Subscriber Plan / Payer (Ef fective 2024-Present) Name:RAHEEM HODGES Relation to Subscriber:Self Name:Raheem Hodges Payer ID:Not on file Group ID:Not on file Type:Not on file Address: [place] [id number] [facility] D[facility] MEDICAID Care Teams System Engineer Relationship Specialty Start Date End Date Self, Self PCP - General Other 05/18/23 Sebastien Warren [address] [phone] Dental Student 12/11/24 Lee Maen DMD [address] [phone] Associate Professor Of Pathology Dentistry 12/11/24
--- OUTSIDE RECORDS SUMMARY | 2024-12-20 12:53 | XMS_ITS | Encounter Summary ---
Author Organization [facility] Address [address] [place] [address] Care Team Providers Care Refueler Name Role Phone Carrington Fritz MD Unavailable Carrington Fritz MD Primary Care Provider + Source Comments In the event this information is protected by the Federal Confidentiality of Alcohol and Drug AbusePatient Records regulations: The Federal rules restrict any use of the information to criminally investigate or prosecute any alcohol or drug abuse patient.[facility] Encounter Details Date Type Department Care Team (Late st Contact Info) Description 04/12/2024 Patient Msg Sp[facility] [place] [address] [place] [address] [place] [address] Brenda Marin, TELECOMMUNICATIONS OFFICER.BUN MACHINE OPERATOR [address] [place], [place] [phone] upcoming appointment Social History Tobacco Use Types [...] is lower risk 8 11/29/2023 Data from: https://www.neighborhoodatlas.medicine.[facility].edu/. 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 Answer Date of Assessment Author No 09/25/2013 8:21 AM EDT Pravin Cruz, STAINED GLASS ARTIST * Are you blind or do you have serious difficulty seeing, even when wearing glasses? Answer Date of Assessment Author No 09/25/2013 8:21 AM EDT Pravin Cruz, STAINED GLASS ARTIST * Do you have serious difficulty walking or climbing stairs? Answer Date of Assessment Author No 09/25/2013 8:21 AM EDT Pravin Cruz, STAINED GLASS ARTIST * Do you have difficulty dressing or bathing? Answer Date of Assessment Author No 09/25/2013 8:21 AM EDT Pravin Cruz, STAINED GLASS ARTIST * Because of a physical, mental, or [...] EDT Office Visit Dermatology [address] [place] [phone] Xander Cook MD [address] [place] [address] Severe Dry Skin around Scalp 12/22/2024 1:00 PM EDT Office Visit Neurology Pain [address] [place] [address] Meena James APRN.BUN MACHINE OPERATOR [address] [place] [address] Atypical facial pain [G50.1] 12/25/2024 2:30 PM EDT Office Visit Facial Plastics [address] [phone] Jose Eduardo Hays MD [address] [place] [address] Follow-up Surgery complications 02/06/2025 1:00 PM [facility] Gastroenterology [address] [address] David Vazquez MD [address]00 [place] [address] esophagitis documented as of this encounter Visit Diagnoses Not on filedocumented in this encounter Care Teams Refueler Relationship Specialty Start Date End Date Carrington Fritz MD [address] [place] [address], [address] [place], [place] [phone] PCP - General Internal Medicine 06/20/24 Carrington Fritz MD [address] [place] [address], [address] [place], [place] [phone] Referring Internal Medicine 11/26/23 documented as of this encounter
--- OUTSIDE RECORDS SUMMARY | 2024-12-20 12:53 | XMS_ITS | Encounter Summary ---
Author Organization [facility] Address [address] [place] [address] Care Team Providers Care Guest Services Officer Name Role Phone Carrington Fritz MD Unavailable [phone] Carrington Fritz MD Primary Care Provider + Source Comments In the event this information is protected by the Federal Confidentiality of Alcohol and Drug AbusePatient Records regulations: The Federal rules restrict any use of the information to criminally investigate or prosecute any alcohol or drug abuse patient.[facility] Encounter Details Date Type Department Care Team (Late st Contact Info) Description 08/12/2024 Patient Msg Otolaryngology [address] [place] [id number] Allan Aggarwal MD [address] [address] Appointment Request Social History Tobacco Use Types [...] is lower risk 8 11/29/2023 Data from: https://www.neighborhoodatlas.medicine.[facility]/. Last address used for calculation [address] 11/29/2023 Sex and Gender Information Value [...] EDT Office Visit Dermatology [address] [place] [address] Xander Cook MD [address] [place] [address] Severe Dry Skin around Scalp 12/22/2024 1:00 PM EDT Office Visit Neurology Pain [address] [place] [address] Meena James APRN.SHEET METAL DUCT INSTALLER HELPER 9500 [place] [address] Atypical facial pain [G50.1] 12/25/2024 2:30 PM EDT Office Visit Facial Plastics [address] [address] Jose Eduardo Hays MD [address]00 [place] [address] Follow-up Surgery complications 02/06/2025 1:00 PM [facility] Gastroenterology [address] [address] David Vazquez MD 9500 [place] [address] esophagitis documented as of this encounter Visit Diagnoses Not on filedocumented in this encounter Care Teams Guest Services Officer Relationship Specialty Start Date End Date Carrington Fritz MD [address] [place] [address], [address] [place] [address] PCP - General Internal Medicine 06/20/24 Carrington Fritz MD [address] [place] [address], [address] [place], [place] [phone] Referring Internal Medicine 11/26/23 documented as of this encounter
--- OUTSIDE RECORDS SUMMARY | 2024-12-20 12:53 | XMS_ITS | Encounter Summary ---
Demographics Address [address] [place] [address] Mobile Phone Email Address Preferred Language Vietnamese Marital Status Single Jainism Affiliation Unknown Race White Ethnic Group Not or Lati no Author Organization [employer] Address [id number] [address] [place] [address] Care Team Providers Care Die Sizer Name Role Phone Carrington Fritz MD Primary Care Provider [phone] Encounter Details Date Type Department Care Team ([facility] st Contact Info) Description 04/07/2024 Telephone [facility] Internal Medicine/Pediatrics [address] [place] [phone] Carrington Fritz MD [address] [place] [address], 1 [place], [place] [id number] Social History Tobacco Use Types Packs/Day Years [...] documented as of this encounter Care Teams Die Sizer Relationship Specialty Start Date End Date Carrington Fritz MD [address] [place] [address], [address] [place] [address] PCP - General Internal Medicine 12/06/24 documented as of this encounter
--- OUTSIDE RECORDS SUMMARY | 2024-12-20 12:53 | XMS_ITS | Encounter Summary ---
Author Organization [facility] Address [address] [place] [address] Care Team Providers Care Career Professional Name Role Phone Carrington Fritz MD Unavailable [phone] Carrington Fritz MD Primary Care Provider + Source Comments In the event this information is protected by the Federal Confidentiality of Alcohol and Drug AbusePatient Records regulations: The Federal rules restrict any use of the information to criminally investigate or prosecute any alcohol or drug abuse patient.[facility] Encounter Details Date Type Department Care Team (Late st Contact Info) Description 05/15/2024 Lab Requisition [facility] [address] [place] [address] [place] [address] [facility] [address] [place], [place] [id number] Testicular hypofunction Social History Tobacco Use Types Packs/Day Years [...] is lower risk 8 11/29/2023 Data from: https://www.neighborhoodatlas.medicine.[facility].edu/. 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 Answer Date of Assessment Author No 09/25/2013 8:21 AM EDT Pravin Cruz, PROBATION MANAGER * Are you blind or do [...] No 09/25/2013 8:21 AM EDT Pravin Cruz, PROBATION MANAGER * Because of a physical, mental, [...] EDT Office Visit Dermatology [address] [place] [address] Xander Cook MD [address] [place] [address] Severe Dry Skin around Scalp 12/22/2024 1:00 PM EDT Office Visit Neurology Pain [address] [place] [address] Meena James, PER DIEM RN.EDUCATIONAL SIGN LANGUAGE INTERPRETER [address] [place] [address] Atypical facial pain [G50.1] 12/25/2024 2:30 PM EDT Office Visit Facial Plastics [address] [place] [address] [place] [phone] Jose Eduardo Hays MD [address] [place] [address] Follow-up Surgery complications 02/06/2025 1:00 PM [facility] Gastroenterology [address] [address] David Vazquez MD [address] [place], [place] [phone] esophagitis documented as of this encounter Procedures Procedure Name Priority Date/Time Associated Diagnosis Comments ESTROGEN FRACTION BL Routine 05/15/2024 2:00 PM EDT Testicular hypofunction ESTRADIOL-17B BLD Routine 05/15/2024 2:0 0 PM EDT Testicular hypofunction documented in this encounter Results * ESTRADIOL-17B BLD (05/15/2024 2:00 PM EDT) Estradiol 17B 26 <38 pg/mL 05/15/2024 11:[address] [facility] Comment:This test is not candice table for patients receiving treatment with the drug Fulvestrant (Faslodex). The drug causes an interference leading to falsely elevated estradiol results. Blood BLOOD SPECIMEN / Unknown 05/15/2024 2:00 PM EDT 05/15/2024 9:34 PM EDT Fernando Yepez MD LABORATORY Final Result [facility] [address] [facility] [address] [place] [address], [place] * ESTROGEN FRACTION BL (05/15/2024 2:00 PM EDT) Estradiol 30.3 10.0 - 42.0 pg/mL 05/19/2024 3:44 AM EDT [facility] Comment: REFERENCE INTERVAL: Estradiol by Otr Tanker Truck Driver For a complete set of all established reference intervals, refer to [employer]/Tests/Pub/[id number]. This test was developed and its performance characteristics determined by [facility]. It has not been cleared or approved by the [place] Food and Drug Administration. This test was performed in a CLIA certified laboratory and is intended for clinical purposes. Estrone 15.4 9.0 - 36.0 pg/mL 05/19/2024 3:44 AM EDT [facility] Comment: INTERPRETIVE INFORMATION: Estrone by Otr Tanker Truck Driver For a complete set of all established reference intervals, refer to [employer]/Tests/Pub/[id number]. This test was developed and its performance characteristics determined by [facility]. It has not been cleared or approved by the [place] Food and Drug Administration. This test was performed in a CLIA certified laboratory and is intended for clinical purposes. Estrogens Total 45.7 19.0 - 69.0 pg/mL 05/19/2024 3:44 AM EDT [facility] Comment: Reference interval of estrogens (pg/mL) Estrone Estradiol Total Estrogens Early follicular <150.0 30.0-100.0 30.0-250.0 Late follicular 100.0-250.0 100.0-400.0 200.0-650.0 Luteal <200.0 50.0-150.0 50.0-350.0 Post-menopausal 3.0-32.0 2.0-21.0 5.0-52.0 REFERENCE INTERVAL: Estrogens Total Calculation For a complete set of all established reference intervals, refer to [employer]/Tests/Pub/[id number]. Performed By: [email or web address] [address] [place] [address] Product Coordinator: Jose Martin Ricci MD, PhD CLIA Number: [id number] Blood BLOOD SPECIMEN / Unknown 05/15/2024 2:00 PM EDT 05/15/2024 9:34 PM EDT Fernando Yepez MD LABORATORY Final Result [facility] [address] [place] [address] documented in this encounter Visit Diagnoses Diagnosis Testicular hypofunction Other testicular hypofunction Atypical facial pain- Primary Atypical face pain documented in this encounter Care Teams Career Professional Relationship Specialty Start Date End Date Carrington Fritz MD [address] [place] [address], [address] [place], [place] [phone] PCP - General Internal Medicine 06/20/24 Carrington Fritz MD [address] [place] [address], [address] [place], [place] [phone] Referring Internal Medicine 11/26/23 documented as of this encounter
--- OUTSIDE RECORDS SUMMARY | 2024-12-20 12:53 | XMS_ITS | Encounter Summary ---
Author Organization [facility] Address [address] [place] [address] Care Team Providers Care Detacker Name Role Phone Carrington Fritz MD Unavailable [phone] Carrington Fritz MD Primary Care Provider + Source Comments In the event this information is protected by the Federal Confidentiality of Alcohol and Drug AbusePatient Records regulations: The Federal rules restrict any use of the information to criminally investigate or prosecute any alcohol or drug abuse patient.[facility] Encounter Details Date Type Department Care Team (Late st Contact Info) Description 04/28/2024 Patient Msg Orthopaedics [address] [address] Stanton Mcgill PA-C [address] [address] MRI results Social History Tobacco [...] is lower risk 8 11/29/2023 Data from: https://www.neighborhoodatlas.medicine.[facility].edu/. 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 Answer Date of Assessment Author No 09/25/2013 8:21 AM EDT Pravin Cruz, DRAFTER AUTOMOTIVE DESIGN * Are you blind or do you have serious difficulty seeing, even when wearing glasses? Answer Date of Assessment Author No 09/25/2013 8:21 AM EDT Pravin Cruz, DRAFTER AUTOMOTIVE DESIGN * Do you have serious difficulty walking or climbing stairs? Answer Date of Assessment Author No 09/25/2013 8:21 AM EDT Pravin Cruz, DRAFTER AUTOMOTIVE DESIGN * Do you have difficulty dressing or bathing? Answer Date of Assessment Author No 09/25/2013 8:21 AM EDT Pravin Cruz, DRAFTER AUTOMOTIVE DESIGN * Because of a physical, mental, or [...] EDT Office Visit Dermatology [address] [place] [address] Xander Cook MD 9500 [place] [address] Severe Dry Skin around Scalp 12/22/2024 1:00 PM EDT Office Visit Neurology Pain [address] [place] [address] Meena James, UPHOLSTERY AUTO TRIMMER.ARTIFICIAL FLOWERS STARCHER [address] [place] [address] Atypical facial pain [G50.1] 12/25/2024 2:30 PM EDT Office Visit Facial Plastics [address] [address] Jose Eduardo Hays MD [address] [place] [address] Follow-up Surgery complications 02/06/2025 1:00 PM [facility] Gastroenterology [address] [address] David Vazquez MD 95[address] [place] [address] esophagitis documented as of this encounter Visit Diagnoses Not on filedocumented in this encounter Care Teams Detacker Relationship Specialty Start Date End Date Carrington Fritz MD [address] [place] [address], [address] [place] [address] PCP - General Internal Medicine 06/20/24 Carrington Fritz MD [address] [place] [address], [address] [place], [place] [phone] Referring Internal Medicine 11/26/23 documented as of this encounter
--- OUTSIDE RECORDS SUMMARY | 2024-12-20 12:53 | XMS_ITS | Encounter Summary ---
Author Organization [facility] Address [address] [place] [address] Care Team Providers Care Horse Racing Manager Name Role Phone Carrington Fritz MD Unavailable [phone] Carrington Fritz MD Primary Care Provider + Source Comments In the event this information is protected by the Federal Confidentiality of Alcohol and Drug AbusePatient Records regulations: The Federal rules restrict any use of the information to criminally investigate or prosecute any alcohol or drug abuse patient.[facility] Encounter Details Date Type Department Care Team (Late st Contact Info) Description 01/07/2024 Patient Msg Otolaryngology [address] [place] [address] Caro Silva APRN.ARMORED CAR GUARD AND DRIVER [address] [place], [place] [phone] Appointment Request Social History Tobacco Use Types [...] is lower risk 8 11/29/2023 Data from: https://www.neighborhoodatlas.medicine.[facility]/. 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 Answer Date of Assessment Author No 09/25/2013 8:21 AM EDT Pravin Cruz, PRINTING PRESS MACHINIST * Are you blind or do you [...] No 09/25/2013 8:21 AM EDT Pravin Cruz, PRINTING PRESS MACHINIST * Because of a physical, mental, or [...] EDT Office Visit Dermatology [address] [place] [phone] Xander Cook MD [address]00 [place] [address] Severe Dry Skin around Scalp 12/22/2024 1:00 PM EDT Office Visit Neurology Pain [address] [place] [address] Meena James, DISPLAY SCREEN FABRICATOR.ARMORED CAR GUARD AND DRIVER [address] [place] [address] Atypical facial pain [G50.1] 12/25/2024 2:30 PM EDT Office Visit Facial Plastics [address] [address] Jose Eduardo Hays MD [address] [place] [address] Follow-up Surgery complications 02/06/2025 1:00 PM [facility] Gastroenterology [address] [place] [address] [address] David Vazquez MD 9500 [place] [address] esophagitis documented as of this encounter Visit Diagnoses Not on filedocumented in this encounter Care Teams Horse Racing Manager Relationship Specialty Start Date End Date Carrington Fritz MD [address] [place] [address], [address] [place] [address] PCP - General Internal Medicine 06/20/24 Carrington Fritz MD [address] [place] [address], [address] [place], [place] [phone] Referring Internal Medicine 11/26/23 documented as of this encounter
--- OUTSIDE RECORDS SUMMARY | 2024-12-20 12:53 | XMS_ITS | Encounter Summary ---
Author Organization [facility] Address [address] [place] [address] Care Team Providers Care Sports Coordinator Name Role Phone Carrington Fritz MD Unavailable [phone] Carrington Fritz MD Primary Care Provider + [...] Info) Description 06/29/2024 Patient Msg Neurology [address] [place] [phone] Toya Wright DO [address] [place], [place] [phone] today's visit Social History Tobacco Use Types [...] is lower risk 8 11/29/2023 Data from: https://www.neighborhoodatlas.medicine.[facility].edu/. 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 Answer Date of Assessment Author No 09/25/2013 8:21 AM EDT Pravin Cruz, ARTIFICIAL SNOW MAKING MACHINE OPERATOR * Are you blind or do you have serious difficulty seeing, even when wearing glasses? Answer Date of Assessment Author No 09/25/2013 8:21 AM EDT Pravin Cruz, ARTIFICIAL SNOW MAKING MACHINE OPERATOR * Do you have serious difficulty walking or climbing stairs? Answer Date of Assessment Author No 09/25/2013 8:21 AM EDT Pravin Cruz, ARTIFICIAL SNOW MAKING MACHINE OPERATOR * Do you have difficulty dressing or bathing? Answer Date of Assessment Author No 09/25/2013 8:21 AM EDT Pravin Cruz, ARTIFICIAL SNOW MAKING MACHINE OPERATOR * Because of a physical, mental, or [...] EDT Office Visit Dermatology [address] [place] [phone] Xander Cook MD [address] [place] [address] Severe Dry Skin around Scalp 12/22/2024 1:00 PM EDT Office Visit Neurology Pain [address] [place] [address] Meena James APRN.MANAGER GOVERNMENT [address] [place] [address] Atypical facial pain [G50.1] 12/25/2024 2:30 PM EDT Office Visit Facial Plastics [address] [facility] [address] [phone] Jose Eduardo Hays MD [address] [place] [address] Follow-up Surgery complications 02/06/2025 1:00 PM [facility] Gastroenterology [address] [address] David Vazquez MD [address] [place] [address] esophagitis documented as of this encounter Visit Diagnoses Not on filedocumented in this encounter Care Teams Sports Coordinator Relationship Specialty Start Date End Date Carrington Fritz MD [address] [place] [address], [address] [place], [place] [phone] PCP - General Internal Medicine 06/20/24 Carrington Fritz MD [address] [place] [address], [address] [place], [place] [phone] Referring Internal Medicine 11/26/23 documented as of this encounter
--- OUTSIDE RECORDS SUMMARY | 2024-12-20 12:53 | XMS_ITS | Encounter Summary ---
Author Organization [facility] Address [address] [place] [address] Care Team Providers Care Biology Intern Name Role Phone Carrington Frizt MD Unavailable [phone] Carrington Fritz MD Primary Care Provider + Source Comments In the event this information is protected by the Federal Confidentiality of Alcohol and Drug AbusePatient Records regulations: The Federal rules restrict any use of the information to criminally investigate or prosecute any alcohol or drug abuse patient.[facility] Encounter Details Date Type Department Care Team (Late st Contact Info) Description 07/04/2024 Patient Msg Neurology [address] [place], [place] [phone] Provider, [facility] Appointment scheduling. Social History Tobacco [...] is lower risk 8 11/29/2023 Data from: https://www.neighborhoodatlas.[facility]/. 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 file [...] EDT Office Visit Dermatology [address] [place] [address] Xander Cook MD [address] [place] [address] Severe Dry Skin around Scalp 12/22/2024 1:00 PM EDT Office Visit Neurology Pain [address] [place] [address] Meena James APRN.ANALYTICAL STATISTICIAN [address] [place] [address] Atypical facial pain [G50.1] 12/25/2024 2:30 PM EDT Office Visit Facial Plastics [address] [phone] Jose Eduardo Hays MD [address] [place] [address] Follow-up Surgery complications 02/06/2025 1:00 PM [facility] Gastroenterology [address] [address] David Vazquez MD [address]00 [place] [address] esophagitis documented as of this encounter Visit Diagnoses Not on filedocumented in this encounter Care Teams Biology Intern Relationship Specialty Start Date End Date Carrington Fritz MD [address] [place] [address], [address] [place] [address] PCP - General Internal Medicine 06/20/24 Carrington Fritz MD [address] [place] [address], [address] [place] [address] Referring Internal Medicine 11/26/23 documented as of this encounter
--- OUTSIDE RECORDS SUMMARY | 2024-12-20 12:53 | XMS_ITS | Encounter Summary ---
Author Organization [facility] Address [address] [place] [address] Care Team Providers Care Bowling Ball Mold Assembler Name Role Phone Carrington Fritz MD Unavailable [phone] Carrington Fritz MD Primary Care Provider + Source Comments In the event this information is protected by the Federal Confidentiality of Alcohol and Drug AbusePatient Records regulations: The Federal rules restrict any use of the information to criminally investigate or prosecute any alcohol or drug abuse patient.[facility] Encounter Details Date Type Department Care Team (Late st Contact Info) Description 01/26/2024 Patient Msg Otolaryngology [address] [place] [address] Caro Silva APRN.BUS PERSON DISHWASHER [address] [place], [place] [phone] Appointment Request Social History Tobacco Use Types [...] is lower risk 8 11/29/2023 Data from: https://www.neighborhoodatlas.medicine.[facility]/. 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 Answer Date of Assessment Author No 09/25/2013 8:21 AM EDT Pravin Cruz, DAIRY CHEMIST * Are you blind or do you [...] No 09/25/2013 8:21 AM EDT Pravin Cruz, DAIRY CHEMIST * Because of a physical, mental, or [...] EDT Office Visit Dermatology [address] [place] [phone] Xander Cook MD [address] [place] [address] Severe Dry Skin around Scalp 12/22/2024 1:00 PM EDT Office Visit Neurology Pain [address] [place] [address] Meena James, SOLE DYER.BUS PERSON DISHWASHER [address] [place] [address] Atypical facial pain [G50.1] 12/25/2024 2:30 PM EDT Office Visit Facial Plastics [address] [phone] Jose Eduardo Hays MD [address] [place] [address] Follow-up Surgery complications 02/06/2025 1:00 PM [facility] Gastroenterology [address] [address] David Vazquez MD [address] [place] [address] esophagitis documented as of this encounter Visit Diagnoses Not on filedocumented in this encounter Care Teams Bowling Ball Mold Assembler Relationship Specialty Start Date End Date Carrington Fritz MD [address] [place] [address], [address] [place] [address] PCP - General Internal Medicine 06/20/24 Carrington Fritz MD [address] [place] [address], [address] [place], [place] [phone] Referring Internal Medicine 11/26/23 documented as of this encounter
--- OUTSIDE RECORDS SUMMARY | 2024-12-20 12:54 | XMS_ITS | Encounter Summary ---
Author Organization [facility] Address [address] [place] [address] Care Team Providers Care Car Parker Name Role Phone Carrington Fritz MD Unavailable [phone] Carrington Fritz MD Primary Care Provider + Source Comments In the event this information is protected by the Federal Confidentiality of Alcohol and Drug AbusePatient Records regulations: The Federal rules restrict any use of the information to criminally investigate or prosecute any alcohol or drug abuse patient.[facility] Encounter Details Date Type Department Care Team (Late st Contact Info) Description 06/05/2024 Patient [facility] -[address] [place] [id number] Callie Serrato RPh At your next appointment, choose [facility]. Social History Tobacco Use Types Packs/Day [...] risk 8 11/29/2023 Data from: https://www.neighborhoodatlas.[facility]/. Last address used for calculation [address] [facility] 11/29/2023 Sex and Gender Information Value [...] 8:21 AM NAMRATAT Pravin Cruz LPN * Because of a physical, mental, or emotional condition, do you have difficulty doing errands alone such as visiting a doctor's office or shopping? Answer Date of Assessment Author No 09/25/2013 8:21 AM NAMRATAT Pravin Cruz LPN documented as of this [...] EDT Office Visit Dermatology [address] [place] [address] Xander Cook MD [address] [place] [address] Severe Dry Skin around Scalp 12/22/2024 1:00 PM EDT Office Visit Neurology Pain [address] [place] [address] Meena James APRN.MEDICAL COLLECTIONS SPECIALIST [address] [place] [address] Atypical facial pain [G50.1] 12/25/2024 2:30 PM EDT Office Visit Facial Plastics [address] [place] [phone] Jose Eduardo Hays MD [address] [place], [place] [phone] Follow-up Surgery complications 02/06/2025 1:00 PM [facility] [address] [address] David Vazquez MD [address] [place] [address] esophagitis documented as of this encounter Visit Diagnoses Not on filedocumented in this encounter Care Teams Car Parker Relationship Specialty Start Date End Date Carrington Fritz MD [address] [place] [address], [address] [place], [place] [phone] PCP - General Internal Medicine 06/20/24 Carrington Fritz MD [address] [place] [address], [address] [place], [place] [phone] Referring Internal Medicine 11/26/23 documented as of this encounter
--- OUTSIDE RECORDS SUMMARY | 2024-12-20 12:54 | XMS_ITS | Encounter Summary ---
Author Organization [facility] Address [address] [address] Phone Care Team Providers Care Button Breaker Operator Name Role Phone Self, Self Primary Care Provider UnavailSebastien Moyer Unavailable Lee Mane DMD Unavailable [phone] Reason for Referral * Consultation (Routine) - New Request Specialty Diagnoses / Procedures Referred By Joelle de león Referred To Contact Dentistry Diagnoses Orofacial pain Jud Rogers DDS, [place] [address] [place] [address] Phone: tel: fax: [facility] [address] [place] [address],[address] [place] [address] Phone: tel: fax: Referral ID Status Reason Start Date Expiration Date V isits Requested Visits Authorized [id number] New Request 12/19/2024 01/13/2026 1 1 Encounter Details Date Type Department Care Team (Latest Contact Info) Description 12/11/2024 Documentation Only [facility] [address] [place] [phone] Sebastien Warren [address] [phone] Orofacial pain (Primary Dx) Social History Tobacco Use Types [...] PM EST documented as of this encounter Plan of Treatment Scheduled Referrals Name Type Priority Associated Diagnoses Orde r Schedule AMB REFERRAL TO DENTISTRY - COD Outpatient Referral Routine Orofacial pain Ordered: 12/19/2024 documented as of this encounter Visit Diagnoses Diagnosis Orofacial pain- Primary Other and unspecified diseases of the oral soft tissues documented in this encounter Care Teams Button Breaker Operator Relationship Specialty Start Date End Date Self, Self PCP - General Other 05/18/23 Sebastien Warren [address] [phone] Dental Student 12/11/24 Lee Mane DMD [address] [address] Disability Insurance Hearing Officer Dentistry 12/11/24 documented as of this encounter
--- OUTSIDE RECORDS SUMMARY | 2024-12-20 12:54 | XMS_ITS | Encounter Summary ---
Author Organization [facility] Address [address] [place] [address] Care Team Providers Care Integrated Specialist Name Role Phone Carrington Fritz MD Unavailable [phone] Carrington Fritz MD Primary Care Provider + Source Comments In the event this information is protected by the Federal Confidentiality of Alcohol and Drug AbusePatient Records regulations: The Federal rules restrict any use of the information to criminally investigate or prosecute any alcohol or drug abuse patient.[facility] Reason for Visit * Reason Comments hydration with MRI Encounter Details Date Type Department Care Team (Late st Contact Info) Description 12/22/2023 Telephone Head and Neck [facility] [address] [place] [address] Caro Silva, MARINE WATER TENDER.ENTRY PROCESSOR [address] [place], [place] [phone] hydration with MRI Social History Tobacco Use [...] is lower risk 8 11/29/2023 Data from: https://www.neighborhoodatlas.medicine.[facility]/. 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 Answer Date of Assessment Author No 09/25/2013 8:21 AM EDT Pravin Cruz, LINUX ADMIN * Are you blind or do you have serious difficulty seeing, even when wearing glasses? Answer Date of Assessment Author No 09/25/2013 8:21 AM EDT Pravin Cruz, LINUX ADMIN * Do you have serious difficulty walking or climbing stairs? Answer Date of Assessment Author No 09/25/2013 8:21 AM EDT Pravin Cruz, LINUX ADMIN * Do you have difficulty dressing or bathing? Answer Date of Assessment Author No 09/25/2013 8:21 AM EDT Pravin Cruz, LINUX ADMIN * Because of a physical, mental, or [...] Garrison Crowley Hodges is calling Caro Silva APRN.ENTRY PROCESSOR today. Patient has MRI on 12/23 and is asking for iv hydration due to having difficulty swallowing when in reclined position. Call patient to inform and/or place updated order. No chief complaint on file. Patient has been identified by name and birthdate. Duration of symptoms: Person calling: self [phone] Call patient at: Was an appointment scheduled: Closing statement: Senia Gray documented in this encounter Plan of Treatment Upcoming Encounters Date Type Department Care Team (Latest Contact Info) Description 12/22/2024 10:45 AM EDT Office Visit Dermatology [address] [address] Xander Cook MD [address] [place] [address] Severe Dry Skin around Scalp 12/22/2024 1:00 PM EDT Office Visit Neurology Pain [address] [place] [address] Meena James APRN.ENTRY PROCESSOR [address] [place] [address] Atypical facial pain [G50.1] 12/25/2024 2:30 PM EDT Office Visit Facial Plastics [address] [place] [address] Jose Eduardo Hays MD [address] [place] [address] Follow-up Surgery complications 02/06[facility] [address] [address] David Vazquez MD [address] [place], [place] [phone] esophagitis documented as of this encounter Visit Diagnoses Not on filedocumented in this encounter Care Teams Integrated Specialist Relationship Specialty Start Date End Date Carrington Fritz MD [address] [place] [address], [address] [place], [place] [phone] PCP - General Internal Medicine 06/20/24 Carrington Fritz MD [address] [place] [address], [address] [place], [place] [phone] Referring Internal Medicine 11/26/23 documented as of this encounter
--- OUTSIDE RECORDS SUMMARY | 2024-12-20 12:54 | XMS_ITS | Encounter Summary ---
Demographics Address [address] [place] [address] Mobile Phone Email Address Preferred Language Colombian Marital Status Single Sikhism Affiliation Unknown Race White Ethnic Group Not or Lati no Author Organization [employer] Address [id number] [address] [place] [address] Care Team Providers Care Sales Service Rep Name Role Phone Carrington Fritz MD Primary Care Provider [phone] Encounter Details Date Type Department Care Team (Latest Contact Info) Description 12/06/2024 Travel Social History Tobacco Use Types Packs/Day [...] documented as of this encounter Care Teams Sales Service Rep Relationship Specialty Start Date End Date Carrington Fritz MD [address] [place] [address], [address] [place] [address] PCP - General Internal Medicine 12/06/24 documented as of this encounter
--- OUTSIDE RECORDS SUMMARY | 2024-12-20 12:54 | XMS_ITS | Clinical Summary ---
Author Organization [facility] Address [address] [place] [address] Phone Care Team Providers Care Freight Manager Name Role Phone Carrington Fritz MD Primary Care Provider + Allergies Active Allergy Reactions Criticality Noted Date Comments Penicillins Anaphylaxis,Cough,Sw ell ing High 06/03/2007 Other reaction(s): Cough Anaphylaxis was listed per [facility]. Anaphylaxis was listed per [facility]. Medications clonazePAM (KlonoPIN) 0.5 mg tablet Take 1 tablet (0.5 mg) by mouth twice a day. 4 Active indomethacin (Indocin) 25 mg capsule TAKE 1 CAPSULE BY MOUTH IN THE MORNING AND 1 AT NOON AND 1 IN THE EVENING WITH MEALS Active nortriptyline (Pamelor) 25 mg capsule Take 25 mg by mouth twice a day. 4 Active mupirocin (Bactroban) 2 % ointment Apply 1 Application topically 3 times a day. 4 Active pregabalin (Lyrica) 200 mg capsule Take 1 capsule (200 mg) by mouth 2 times a day. Active buprenorphine-n aloxone (Suboxone) 2-0.[address] under the tongue. Active Active Problems No known active problems Encounters Date Type Department Care Team Description 11/03/2024 9:40 AM EDT Office Visit [facility] [address] [phone] Lazaro Tejada MD Temporomandibular joint disorder (Primary Dx); Chronic pain syndrome; Hx of intravenous drug use in remission Discharge Disposition: Home 11/03/2024 Travel 10/24/2024 2:30 PM EDT Office Visit [facility] [address] [facility] [address] [place] [address] Delroy Roland MD Dislocation of temporomandibular joint, subsequent encounter 10/24/2024 Travel 09/29/2024 Scanned Document [facility] [address] [place] [address] Archie Ulloa, 09/27/2024 11:09 AM EDT - 09/27/2024 11:59 PM EDT Hospital Encounter [facility] [address] [place] [address] Neck pain Discharge Disposition: Home 09/27/2024 11:00 AM EDT Office Visit [facility] Building [address] [place] [address] Tobi Luu PA-C Neck pain; Cervical strain, acute, initial encounter 09/27/2024 Travel 09/22/2024 11:46 AM EDT - 09/22/2024 2:49 PM EDT Emergency [facility] Emergency Medicine [address] [place] [address] Jaw pain (Primary Dx); Strain of neck muscle, initial encounter Discharge Disposition: Home 09/22/2024 Travel 09/20/2024 Orders Only [facility] Internal Medicine [address] [facility] [address] [place] [address] Provider, MD Eliud 09/19/2024 Travel from Last 3 Months Family History Medical History Relation Name Comments Alcohol abuse Mother Mom Depression Mother Mom Drug abuse Mother Mom Intellectual Disability Mother Mom Relation Name Status Comments Mother Mom Alive Social History Tobacco Use Types Packs/Day Years Used Date Smoking Tobacco: Every Day Cigarettes Passive Smoke Exposure: Never Smokeless Tobacco: Current Tobacco Cessation:Ready to Q uit: Not Asked; Counseling Given: Not Answered Alcohol Use Standard Drinks/Week Comments Never 0 (1 standard drink = 0.6 oz pur e alcohol) PHQ-2 Answer Date Recorded Patient Health Questionnaire-2 Score 0 09/22/2024 Sex and Gender Information Value Date Recorded Sex Assigned at Not on file Legal Sex Male 6:26 AM EST Gender Identity Not on file Sexual Orientation Not on file Last Filed Vital Signs Vital Sign Reading Time Taken Comments Blood Pressure 115/74 10/24/2024 2:39 PM EDT Pulse 64 10/24/2024 2:39 PM EDT Temperature 36.4 C (97.5 F) 09/22/2024 2:14 PM EDT Respiratory Rate 17 10/24/2024 2:39 PM EDT Oxygen Saturation 95% 09/22/2024 2:14 PM EDT Inhaled Oxygen Concentration - - Weight 77.1 kg (170 lb) 10/24/2024 2:39 PM EDT Height 177.8 cm (5' 10 ) 10/24/2024 2:39 PM EDT Body Mass Index 24.39 10/24/2024 2:39 PM EDT Plan of Treatment Upcoming Encounters Date Type Department Care Team (Late st Contact Info) Description 12/29/2024 10:00 AM EDT Office Visit [facility] [address] [facility] [address] 2[address] [place] [address] Tony Sheppard, MANAGER URGENT CARE-MALTER OPERATOR [address] [place] [address] 03/20/2025 4:15 PM EST Office Visit [facility] [address] [facility] [address] [place] [address] [place] [address] [place], [place] [phone] Health Maintenance Due Date Last Done Comments CT Colonography 1976 FIT-DNA (Cologuard) 1976 FIT 1976 Sigmoidoscopy 1976 Yearly Adult Physical 1976 MMR Vaccines (1 of 1 - Standard series) 02/11/1977 Diabetes Screening 09/22/2023 09/21/2022, 04/27/2022 Hepatitis A Vaccines (2 of 3 - Hep A Twinrix risk 3-dose series) 04/05/2024 03/08/2024 Hepatitis B Vaccines (2 of 3 - Hep B Twinrix 3-dose series) 04/05/2024 03/08/2024 Influenza Vaccine (#1) 2024 , 01/01/2023, 02/24/2022 COVID-19 Vaccine (2 - 2024-2 6 season) 2024 03/18/2024 Lipid Panel 10/02/2025 10/02/2020 Zoster Vaccines (1 of 2) 02/11/2026 DTaP/Tdap/Td Vaccines (2 - T d or Tdap) 03/08/2034 03/08/2024 Colonoscopy 10/23/2034 10/23/2024, 10/23/2024 Colorectal Cancer Screening 10/23/2034 HIV Screening Completed 11/27/2022 Pneumococcal Vaccine: Pediatrics and At-Risk Adult Patients Completed 04/26/2023, 04/26/2023 HIB Vaccines Aged Out No longer eligi ble based on patient's age to complete this topic HPV Vaccines Aged Out No longer eligi ble based on patient's age to complete this topic IPV Vaccines Aged Out No longer eligi ble based on patient's age to complete this topic Meningococcal Vaccine Aged Out No michelle mg eligible based on patient's age to complete this topic Rotavirus Vaccines Aged Out No longer eligible based on patient's age to complete this topic Procedures Procedure Name Priority Date/Time Associated Diagnosis Comments XR CERVICAL SPINE 2-3 VIEWS Routine 09/27/2024 11:18 AM EDT Neck pain CT CERVICAL SPINE WO IV CONTRAST STAT 09/22/2024 12:[address] FACIAL BONES WO IV CONTRAST STAT 09/22/2024 12:55 PM EDT MR FACE WO/W CONTRAST Routine 09/20/2024 2:05 PM EDT COMPREHENSIVE METABOLIC PANEL STAT 09/21/2022 10:00 AM EDT from Last 3 Months or Most Recently Relevant to Health Maintenance Results * XR cervical spine 2-3 views (09/27/2024 11:18 AM EDT) Anatomical Region Laterality Modality Musculoskeletal, Spine Computed Radiography 09/29/2024 1:31 PM EDT 09/29/2024 1:31 PM EDT Impressions 09/29/2024 1:30 PM EDT Mild cervical degenerative change C5-6. Signed by: Jose Eduardo Lopez 09/29/2024 1:30 PM Dictation workstation: [id number] Narrative 09/29/2024 1:30 PM EDT Interpreted By: Jose Eduardo Lopez, STUDY: XR CERVICAL SPINE 2-3 VIEWS INDICATION: Signs/Symptoms:pain. COMPARISON: None ACCESSION NUMBER(S): [id number] ORDERING CLINICIAN: WILL ALSTON FINDINGS: Mild C5-6 degenerative change. Alignment normal. Prevertebral soft tissues normal. Procedure Note Jose Eduardo Lopez MD - 09/29/2024 Interpreted By: Jose Eduardo Lopez, STUDY: XR CERVICAL SPINE 2-3 VIEWS INDICATION: Signs/Symptoms:pain. COMPARISON: None ACCESSION NUMBER(S): [id number] ORDERING CLINICIAN: WILL ALSTON FINDINGS: Mild C5-6 degenerative change. Alignment normal. Prevertebral soft tissues normal. IMPRESSION: Mild cervical degenerative change C5-6. Signed by: Jose Eduardo Lopez 09/29/2024 1:30 PM Dictation workstation: [id number] us Will Alston DO IMG XR PROCEDURES Final Resu lt * CT cervical spine wo IV contrast (09/22/2024 12:55 PM EDT) Anatomical Region Laterality Modality Neuro Computed Tomogra phy 09/22/2024 1:37 PM EDT 09/22/2024 1:37 PM EDT Impressions 09/22/2024 1:36 PM EDT No evidence for an acute fracture or subluxation of the cervical spine. MACRO: None Signed by: Tesha Brown 09/22/2024 1:36 PM Dictation workstation: [id number] Narrative 09/22/2024 1:36 PM EDT Interpreted By: Tesha Brown, STUDY: CT CERVICAL SPINE WO IV CONTRAST; 09/22/2024 12:55 pm INDICATION: Signs/Symptoms:Neck pain after fall. COMPARISON: None. ACCESSION NUMBER(S): [id number] ORDERING CLINICIAN: SANDEEP STEPHENSON TECHNIQUE: Axial CT images of the cervical spine are obtained. Axial, coronal and sagittal reconstructions are provided for review. FINDINGS: Fractures: There is no evidence for an acute fracture of the cervical spine. Vertebral Alignment: Within normal limits. Craniocervical Junction: The odontoid process and craniocervical junction are intact. Vertebrae/Disc Spaces: The cervical vertebral body heights are intact. C5-6 disc is mildly narrowed and there is mild endplate hypertrophy. Mild facet arthropathy is present diffusely. Prevertebral/Paraspinal Soft Tissues: The prevertebral and paraspinal soft tissues are unremarkable. Procedure Note Tesha Brown MD - 09/22/2024 Interpreted By: Tesha Brown, STUDY: CT CERVICAL SPINE WO IV CONTRAST; 09/22/2024 12:55 pm INDICATION: Signs/Symptoms:Neck pain after fall. COMPARISON: None. ACCESSION NUMBER(S): [id number] ORDERING CLINICIAN: SANDEEP STEPHENSON TECHNIQUE: Axial CT images of the cervical spine are obtained. Axial, coronal and sagittal reconstructions are provided for review. FINDINGS: Fractures: There is no evidence for an acute fracture of the cervical spine. Vertebral Alignment: Within normal limits. Craniocervical Junction: The odontoid process and craniocervical junction are intact. Vertebrae/Disc Spaces: The cervical vertebral body heights are intact. C5-6 disc is mildly narrowed and there is mild endplate hypertrophy. Mild facet arthropathy is present diffusely. Prevertebral/Paraspinal Soft Tissues: The prevertebral and paraspinal soft tissues are unremarkable. IMPRESSION: No evidence for an acute fracture or subluxation of the cervical spine. MACRO: None Signed by: Tesha Brown 09/22/2024 1:36 PM Dictation workstation: [id number] us Sandeep Stephenson MANAGER URGENT CARE-MALTER OPERATOR IMG CT PROCEDURES Final Result * CT maxillofacial bones wo IV contrast (09/22/2024 12:55 PM EDT) Anatomical Region Laterality Modality Neuro Computed Tomogra phy 09/22/2024 1:34 PM EDT 09/22/2024 1:34 PM EDT Impressions 09/22/2024 1:33 PM EDT No acute facial bone fracture visualized. MACRO: None Signed by: Tesha Brown 09/22/2024 1:33 PM Dictation workstation: [id number] Narrative 09/22/2024 1:33 PM EDT Interpreted By: Tesha Brown, STUDY: CT FACIAL BONES WO IV CONTRAST 09/22/2024 12:55 pm INDICATION: Signs/Symptoms:R jaw pain after fall COMPARISON: None. ACCESSION NUMBER(S): [id number] ORDERING CLINICIAN: SANDEEP STEPHENSON TECHNIQUE: Thin cut axial CT images through the facial bones were obtained and reconstructed in the coronal and sagittal plane. 3d reconstructions were generated at a separate workstation. FINDINGS: Orbits: The bony orbits are intact. The orbital contents are unremarkable. Facial Bones: There is no displaced facial bone fracture. Mandible/Temporomandibular Joints: Visualized portions of mandible and bilateral temporomandibular joints are intact. The patient is edentulous. Paranasal Sinuses/Mastoids: Visualized paranasal sinuses and mastoids are clear. Soft tissues: Unremarkable. Procedure Note Tesha Brown MD - 09/22/2024 Interpreted By: Tesha Brown, STUDY: CT FACIAL BONES WO IV CONTRAST 09/22/2024 12:55 pm INDICATION: Signs/Symptoms:R jaw pain after fall COMPARISON: None. ACCESSION NUMBER(S): [id number] ORDERING CLINICIAN: SANDEEP STEPHENSON TECHNIQUE: Thin cut axial CT images through the facial bones were obtained and reconstructed in the coronal and sagittal plane. 3d reconstructions were generated at a separate workstation. FINDINGS: Orbits: The bony orbits are intact. The orbital contents are unremarkable. Facial Bones: There is no displaced facial bone fracture. Mandible/Temporomandibular Joints: Visualized portions of mandible and bilateral temporomandibular joints are intact. The patient is edentulous. Paranasal Sinuses/Mastoids: Visualized paranasal sinuses and mastoids are clear. Soft tissues: Unremarkable. IMPRESSION: No acute facial bone fracture visualized. MACRO: None Signed by: Tesha Brown 09/22/2024 1:33 PM Dictation workstation: [id number] Sandeep Stephenson MANAGER URGENT CARE-MALTER OPERATOR IMG CT PROCEDURES Final Result * MR face w and wo IV contrast (09/20/2024 2:05 PM EDT) Anatomical Region Laterality Modality Neuro Magnetic Resonan ce Historical Provider IMG MRI PROCEDURES Final Result * (ABNORMAL) Comprehensive Metabolic Panel (09/21/2022 10:00 AM EDT) Glucose 104(H) 74 - 99 mg/dL [facility] Sodium 137 136 - 145 mmol/L [facility] Potassium 3.6 3.5 - 5.3 mmol/L [facility] Chloride 104 98 - 107 mmol/L [facility] Bicarbonate 25 21 - 32 mmol/L [facility] Anion Gap 12 10 - 20 mmol/L [facility] Urea Nitrogen 11 6 - 23 mg/dL [facility] Creatinine 0.90 0.50 - 1.30 mg/dL [facility] GFR MALE >90 >90 mL/min/1.7 3m2 [facility] Comment: CALCULATIONS OF ESTIMATED GFR ARE PERFORMED USING THE 2020 CKD-EPI STUDY REFIT EQUATION WITHOUT THE RACE VARIABLE FOR THE IDMS-TRACEABLE CREATININE METHODS. https://jasn.asnjournals.org/content//ASN.1853982462 Calcium 9.5 8.6 - 10.3 mg/dL [facility] Albumin 4.3 3.4 - 5.0 g/dL [facility] Alkaline Phosphatase 57 33 - 120 U/L [facility] Total Protein 7.2 6.4 - 8.2 g/dL [facility] AST 98(H) 9 - 39 U/L [facility] Total Bilirubin 0.6 0.0 - 1.2 mg/dL [facility] ALT (SGPT) 85(H) 10 - 52 U/L [facility] Comment: Patients treated with Sulfasalazine may generate falsely decreased results for ALT. 09/21/2022 10:0 0 AM EDT 09/21/2022 10:34 AM EDT us Ezequiel Marcos MD LAB BLOOD ORDERABLES Final R esult [facility] [address] [place] [address] from Last 3 Months or Most Recently Relevant to Health Maintenance Insurance [employer] [place] [address] [place] [address] MEDICAID [facility] MEDICAID Care Teams Freight Manager Relationship Specialty Start Date End Date Carrington Fritz MD [address] [place] [address], [address] [place] [address] PCP - General Internal Medicine 09/27/24
--- OUTSIDE RECORDS SUMMARY | 2024-12-20 12:54 | XMS_ITS | Encounter Summary ---
Author Organization [facility] Address [address] [place] [address] Phone Care Team Providers Care National Investigative Producer Name Role Phone Carrington Fritz MD Primary Care Provider + Encounter Details Date Type Department Care Team (Late st Contact Info) Description 09/29/2024 Scanned Document [facility] [address] [phone] Archie Ulloa, DO [address] [facility], [address] [place] [address] Social History Tobacco Use Types Packs/Day Years Used Date Smoking Tobacco: Every Day Cigarettes Passive Smoke Exposure: Never Smokeless Tobacco: Current Alcohol Use Standard Drinks/Week Comments Never 0 [...] Description 12/29/2024 10:00 AM EDT Office Visit [facility] 5 [facility] 2nd [place] [phone] Tony Sheppard, HOT BREAD BAKER-HEAT TREATER HELPER [address] [place] [address] 03/20/2025 4:15 PM EST Office Visit [facility] [address] [place] [address] [place] [address] [facility] [place], [place] [phone] documented as of this encounter Visit Diagnoses Not on filedocumented in this encounter Additional Health Concerns Assessment Noted Time A fall risk assessment has been complete d for the patient 09/22/2024 10:53 AM EDT documented as of this encounter Care Teams National Investigative Producer Relationship Specialty Start Date End Date Carrington Fritz MD [address] [place] [address], 1 [place] [address] PCP - General Internal Medicine 09/27/24 documented as of this encounter
--- OUTSIDE RECORDS SUMMARY | 2024-12-20 12:54 | XMS_ITS | Encounter Summary ---
Author Organization [facility] Address [address] [place] [address] Care Team Providers Care Rehabilitation Tech Name Role Phone Carrington Fritz MD Unavailable [phone] Carrington Fritz MD Primary Care Provider + Source Comments In the event this information is protected by the Federal Confidentiality of Alcohol and Drug AbusePatient Records regulations: The Federal rules restrict any use of the information to criminally investigate or prosecute any alcohol or drug abuse patient.[facility] Encounter Details Date Type Department Care Team (Late st Contact Info) Description 12/22/2023 Patient [place] [address] Provider, Bihn CT 12/24/23 [facility] Social History Tobacco Use Types Packs/Day [...] risk 8 11/29/2023 Data from: https://www.neighborhoodatlas.[facility]/. 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 Answer Date of Assessment Author No 09/25/2013 8:21 AM EDT Pravin Cruz, IRON WORKER FOREMAN * Are you blind or do you have serious difficulty seeing, even when wearing glasses? Answer Date of Assessment Author No 09/25/2013 8:21 AM EDT Pravin Cruz, IRON WORKER FOREMAN * Do you have serious difficulty walking or climbing stairs? Answer Date of Assessment Author No 09/25/2013 8:21 AM EDT Pravin Cruz, IRON WORKER FOREMAN * Do you have difficulty dressing or bathing? Answer Date of Assessment Author No 09/25/2013 8:21 AM EDT Pravin Cruz, IRON WORKER FOREMAN * Because of a physical, mental, or emotional condition, do you have difficulty doing errands alone such as visiting a doctor's office or shopping? Answer Date of Assessment Author No 09/25/2013 8:21 AM EDT Pravin Cruz, IRON WORKER FOREMAN documented as of this encounter Mental Status * Because of a physical, mental, or emotional condition, do you have serious difficulty concentrating, remembering, or making decisions? Answer Entry Date Author Yes 09/25/2013 8:21 AM EDT Pravin Cruz, IRON WORKER FOREMAN documented in this encounter Plan of Treatment Upcoming Encounters Date Type Department Care Team (Latest Contact Info) Description 12/22/2024 10:45 AM EDT Office Visit Dermatology [address] [place] [address] Xander Cook MD [address] [place] [address] Severe Dry Skin around Scalp 12/22/2024 1:00 PM EDT Office Visit Neurology Pain [address] [place] [address] Meena James APRN.ACID POLYMERIZATION OPERATOR [address] [place] [address] Atypical facial pain [G50.1] 12/25/2024 2:30 PM EDT Office Visit Facial Plastics [address] [facility] [address] [phone] Jose Eduardo Hays MD [address] [place] [address] Follow-up Surgery complications 02/06/2025 1:00 PM [facility] Gastroenterology [address] [address] David Vazquez MD [address] [place] [address] esophagitis documented as of this encounter Visit Diagnoses Not on filedocumented in this encounter Care Teams Rehabilitation Tech Relationship Specialty Start Date End Date Carrington Fritz MD [address] [place] [address], [address] [place] [address] PCP - General Internal Medicine 06/20/24 Carrington Fritz MD [address] [place] [address], [address] [place], [place] [id number] Referring Internal Medicine 11/26/23 documented as of this encounter
--- OUTSIDE RECORDS SUMMARY | 2024-12-20 12:54 | XMS_ITS | Encounter Summary ---
Demographics Address [address] [place] [address] Mobile Phone Email Address Preferred Language Liberian Marital Status Single Nondenominational Affiliation Unknown Race White Ethnic Group Not or Lati no Author Organization [employer] tem Address [id number] [address] [place] [address] Care Team Providers Care Human Services Instructor Name Role Phone Carrington Fritz MD Primary Care Provider [phone] Encounter Details Date Type Department Care Team ([facility] st Contact Info) Description 11/08/2024 Telephone [facility] Internal Medicine/Pediatrics [address] [place] [phone] Carrington Fritz MD [address] [place] [address], 1 [place], [place] [phone] Social History Tobacco Use Types Packs/Day Years [...] got money to buy more. Never True 10/19/2024 Within the past 12 months th e food we bought just didn't last and we didn't have money to get more. Never True 10/19/2024 Sex and Gender Information Value Date Recorded Sex Assigned at Not on file Legal Sex Male 1:06 PM EST Gender Identity Not on file Sexual Orientation Not on file documented as of this encounter Miscellaneous Notes * Telephone Encounter - Tesha Murphy - 11/08/2024 11:41 AM EDT Garrison called, he said his insurance says he needs a cancer screening. He has already had a colonoscopy. Is there anything else that needs to be done? Please advise * Telephone Encounter - Carrington Fritz MD - 11/08/2024 11:41 AM EDT Prostate screening and lung cancer screening generally begin at 50. So I'm not certain what he is referring to. documented in this encounter Plan of Treatment Not on file documented as of this encounter Visit Diagnoses Not on filedocumented in this encounter Additional Health Concerns Assessment Noted Time PHQ-9 Depression Total Score: 0 11/11/19 24 1:55 PM EDT documented as of this encounter Care Teams Human Services Instructor Relationship Specialty Start Date End Date Carrington Fritz MD [address] [place] [address], [address] [place] [address] PCP - General Internal Medicine 12/06/24 documented as of this encounter
--- OUTSIDE RECORDS SUMMARY | 2024-12-20 12:54 | XMS_ITS | Encounter Summary ---
Author Organization [facility] Address [address] [address] Phone Care Team Providers Care Scholastic Aptitude Test Grader Name Role Phone Self, Self Primary Care Provider Unavailabl e Sebastien Warren Unavailable Vivek Maneodvenus [place] DMD Unavailable [phone] Encounter Details Date Type Department Care Team (Late st Contact Info) Description 12/12/2024 Telephone [facility] [address] [phone] Sebastien Warren [address] [phone] Social History Tobacco Use Types Packs/Day Years [...] on filedocumented in this encounter Care Teams Scholastic Aptitude Test Grader Relationship Specialty Start Date End Date Self, Self PCP - General Other 05/18/23 Sebastien Warren [address] [phone] Dental Student 12/11/24 Lee Mane, JOCE [address] [place] [phone] Corporate Meeting Planner Dentistry 12/11/24 documented as of this encounter
--- OUTSIDE RECORDS SUMMARY | 2024-12-20 12:54 | XMS_ITS | Encounter Summary ---
Demographics Address [address] [place] [address] Mobile Phone Email Address Preferred Language Grenadian Marital Status Single Islam Affiliation Unknown Race White Ethnic Group Not or Lati no Author Organization [facility] Address [id number] [address] [place] [address] Care Team Providers Care Compression Molding Machine Setter Name Role Phone Carrington Fritz MD Primary Care Provider [phone] Encounter Details Date Type Department Care Team ([facility] st Contact Info) Description 01/11/2024 Telephone [facility] - ENT [address] [facility] [place] [address] Yuly Wilson-Randa, DO [address] [facility] [place], [place] [phone] Social History Tobacco Use Types Packs/Day Years [...] is scheduled with Dr. Wilson 01/12/24 in [place]. documented in this encounter Plan of Treatment Not on file documented as of this encounter Visit Diagnoses Not on filedocumented in this encounter Additional Health Concerns Assessment Noted Time PHQ-9 Depression Total Score: 0 11/11/19 1:55 PM EDT documented as of this encounter Care Teams Compression Molding Machine Setter Relationship Specialty Start Date End Date Carrington Fritz MD [address] [place] [address], 1 [place] [address] PCP - General Internal Medicine 12/06/24 documented as of this encounter
--- OUTSIDE RECORDS SUMMARY | 2024-12-20 12:54 | XMS_ITS | Encounter Summary ---
Author Organization [facility] Address [address] [place] [address] Phone Care Team Providers Care Accounts Payable Or Receivable Clerk Name Role Phone Self, Self Primary Care Provider Unavailabl e Sebastien Warren Unavailable Lee Mane DMD Unavailable [phone] Reason for Visit * Reason Onset Date Comments Consult 12/11/2024 Encounter Details Date Type Department Care Team (Late st Contact Info) Description 12/11/2024 Telephone [facility] [address] [phone] Laly Whiting Consult Social History Tobacco Use Types Packs/Day Years [...] on filedocumented in this encounter Care Teams Accounts Payable Or Receivable Clerk Relationship Specialty Start Date End Date Self, Self PCP - General Other 05/18/23 Sebastien Warren [address] [phone] Dental Student 12/11/24 Lee Mane DMD [address] [place] [phone] Flue Cleaner Dentistry 12/11/24 documented as of this encounter
--- OUTSIDE RECORDS SUMMARY | 2024-12-20 12:54 | XMS_ITS | Encounter Summary ---
Author Organization [facility] Address [address] [place] [address] Care Team Providers Care Toolmaker Name Role Phone Carrington Fritz MD Unavailable [phone] Carrington Fritz MD Primary Care Provider + Source Comments In the event this information is protected by the Federal Confidentiality of Alcohol and Drug AbusePatient Records regulations: The Federal rules restrict any use of the information to criminally investigate or prosecute any alcohol or drug abuse patient.[facility] Encounter Details Date Type Department Care Team (Late st Contact Info) Description 06/05/2024 Patient [facility] -[address] [place] [address] Callie Serrato RPh At your next appointment, choose [facility]. Social History Tobacco Use Types Packs/Day [...] is lower risk 8 11/29/2023 Data from: https://www.neighborhoodatlas.[facility]/. 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 Not on file Not [...] EDT Office Visit Dermatology [address] [place] [address] Xander Cook MD [address] [place] [address] Severe Dry Skin around Scalp 12/22/2024 1:00 PM EDT Office Visit Neurology Pain [address] [place] [address] Meena James APRN.SCREW MACHINE SET UP OPERATOR TOOL [address] [place] [address] Atypical facial pain [G50.1] 12/25/2024 2:30 PM EDT Office Visit Facial Plastics [address] [place] [phone] Jose Eduardo Hays MD [address] [place], [place] [phone] Follow-up Surgery complications 02/06/2025 1:00 PM [facility] Gastroenterology [address] [address] David Vazquez MD [address] [place] [address] esophagitis documented as of this encounter Visit Diagnoses Not on filedocumented in this encounter Care Teams Toolmaker Relationship Specialty Start Date End Date Carrington Fritz MD [address] [place] [address], [address] [place], [place] [phone] PCP - General Internal Medicine 06/20/24 Carrington Fritz MD [address] [place] [address], [address] [place], [place] [phone] Referring Internal Medicine 11/26/23 documented as of this encounter
--- OUTSIDE RECORDS SUMMARY | 2024-12-20 12:54 | XMS_ITS | Patient Health Record ---
Author Organization [facility] Address [address] [place] [address] Care Team Providers Care [place] Boatman Name Role Phone YevgeniyColette Primary Care Provider Alessandro Berg Unavailable [phone] Allergies Allergen (clinical drug ingredient) Drug/Non Drug Allergy documented on EMR Reaction Allergy Type Onset Date Status PCN (uncoded) Unknown Allergy Active Reason For Referral No Information Medications Medication SIG (Take, Route, Frequency, Duration) Notes Start Date End Date Status gabapentin Active Seroquel Active Problems Problem Type SNOMED Code ICD Code Onset Dates Problem Status W/U Status Risk Notes Problem [id number] Pain in right fo ot (M79.671) Active confirmed Problem [id number] Pain in left francisco t (M79.672) Active confirmed Problem [id number] OM (onychomycosi s) (B35.1) Active confirmed Problem [id number] 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
--- OUTSIDE RECORDS SUMMARY | 2024-12-20 12:54 | XMS_ITS | Clinical Summary ---
Demographics Address [address] [place] [address] Mobile Phone Email Address Preferred Language British Marital Status Single Sikhism Affiliation Unknown Race White Ethnic Group Not or Lati no Author Organization [employer] tem Address [id number] [address] [place] [address] Care Team Providers Care Crew Manager Name Role Phone Carrington Fritz MD Primary Care Provider [phone] Allergies Active Allergy Reactions Criticality Noted Date Comments Penicillins Anaphylaxis,Cough High 06/03/2007 Anaphylaxis was listed per [facility]. Medications * This document contains information received from the source organization and may not represent a complete record from that organization. mupirocin (BACTROBAN) 2 % ointment Apply 1 Application topically 3 (three) times a day. 22 g 5 Active buprenorphine- naloxone (SUBOXONE) 8-2 mg film 5 Active DULoxetine (CYMBALTA) 30 mg capsule Take 1 capsule (30 mg total) by mouth in the morning. 5 Active naloxone (NARCAN) 4 mg/actuation spray,non-aero emily nasal spray 5 Active ketoconazole (NIZORAL) 2 % shampooIndicat ions:Seborrhea capitis Apply 1 Application topically 2 (two) times a week. Apply to damp skin, lather, leave on 5 minutes, and rinse 120 mL 5 Active baclofen (LIORESAL) 10 mg tablet 1 twice a day for 2 weeks and then One 4 times a day 5 Active omeprazole (PriLOSEC) 40 mg capsule Take 1 capsule (40 mg total) by mouth in the morning. 5 025 Active clonazePAM (KlonoPIN) 1 mg tabletIndicati ons:Anxiety Take 1 tablet (1 mg total) by mouth 2 (two) times a day as needed for anxiety. 60 tablet 5 Active pregabalin (LYRICA) 200 mg capsuleIndicat ions:TMJ (temporomandib ular joint disorder) Take 1 capsule (200 mg total) by mouth 3 (three) times a day. 90 capsule 1 5 Active ibuprofen (MOTRIN) 800 mg tablet Take 1 tablet (800 mg total) by mouth 2 (two) times a day as needed for pain. 60 tablet 1 5 Active pregabalin (LYRICA) 200 mg capsuleIndicat ions:TMJ (temporomandib ular joint disorder) Take 1 capsule (200 mg total) by mouth 3 (three) times a day. 90 capsule 5 025 Discontinu ed(Reorder ) clonazePAM (KlonoPIN) 1 mg tabletIndicati ons:Anxiety Take 1 tablet (1 mg total) by mouth 2 (two) times a day as needed for anxiety. 60 tablet 5 025 Discontinu ed(Reorder ) fluconazole (DIFLUCAN) 100 mg tabletIndicati ons:Oral thrush Take 2 tablets Day 1, then 1 tablet daily 15 tablet 5 025 Active Problems Problem Noted Date Diagnosed Date TMJ (temporomandibular joint disorder) 4 Onychomycosis of toenail 11/11/2023 Anxiety Encounters Date Type Department Care Team Description 12/06/2024 7:21 PM EDT - 12/06/2024 7:54 PM EDT Emergency [facility] - Emergency [address] [place] [address] Jaw pain (Primary Dx) Discharge Disposition: Home 12/06/2024 Travel 11/28/2024 1:45 PM EDT Office Visit [facility] [address] [place] [address] Miguel Hernandez, PA Cervical spondylosis without myelopathy (Primary Dx); TMJ (temporomandibular joint disorder) 11/28/2024 Travel 11/23/2024 Refill [facility] [address] [place] [address] Criselda Suazo RN TMJ (temporomandibular joint disorder) 11/23/2024 Telephone [facility] Internal Medicine/Pediatric s [address] [place] [address] Carrington Fritz MD 11/20/2024 Refill [facility] [address] [place] [address] Miguel Hernandez PA TMJ (temporomandibular joint disorder) 11/17/2024 10:30 AM EDT [facility] [address] [place] [address] Carrington Fritz MD Oral thrush (Primary Dx); Anxiety 11/14/2024 Travel 11/10/2024 9:23 AM EDT Anesthesia Event [facility] - Pain Procedures [address] [place] [address] Damion Wright MD Holbrook, Angela A, AIRCRAFT QUALITY CONTROL INSPECTOR-NATURE PHOTOGRAPHER 11/10/2024 9:07 AM EDT - 11/10/2024 9:15 AM EDT Surgery [facility] - Pain Procedures [address] [place] [address] Kenyon Prather MD INJECTION BURSA INTERMEDIATE Isauro TMJ [20495 (CPT )] 11/10/2024 8:14 AM EDT - 11/10/2024 11:59 PM EDT Hospital Encounter [facility] - Pain Procedures [address] [place] [address] Kenyon Prather MD Discharge Disposition: Home 11/10/2024 8:05 AM EDT - 11/10/2024 8:13 AM EDT Hospital Encounter [facility] - Radiology [address] [place] [address] Kenyon Prather MD TMJ (temporomandibular joint disorder) Discharge Disposition: Home 11/09/2024 Travel 11/08/2024 Telephone [facility] Internal Medicine/Pediatric s [address] [place] [address] Carrington Fritz MD 10/27/2024 Results [facility] [address] [place] [address] Mahamed Otoole, DO Surgical Pathology 10/23/2024 11:00 AM EDT - 10/23/2024 11:30 AM EDT [facility] [address] [place] [address] Mahamed Otoole, DO COLONOSCOPY DIAGNOSTIC / SCREENING [G0121 +1 more] 10/23/2024 10:04 AM EDT Anesthesia Event [facility] - Surgery [address] [place] [address] Damion Wright MD 10/23/2024 8:49 AM EDT - 10/23/2024 10:50 AM EDT Hospital Encounter [facility] - Surgery [address] [place] [address] Mahamed Otoole, DO Adenomatous polyp of sigmoid colon (Primary Dx); Screen for colon cancer Discharge Disposition: Home 10/23/2024 Travel 10/19/2024 2:15 PM EDT Office Visit [facility] [address] [place] [address] Miguel Hernandez PA Facial pain (Primary Dx); TMJ (temporomandibular joint disorder) 10/19/2024 Travel 10/06/2024 Telephone [facility] Internal Medicine[facility]Pediatric s [address] [facility] [address] [place] [address] Carrington Fritz MD 10/03/2024 1:30 PM EDT Office Visit [facility] General Surgery [address] [place] [phone] Azeb Bailey APRN-CNP Encounter for screening colonoscopy (Primary Dx); Constipation, unspecified constipation type 10/03/2024 Refill [facility] General Surgery [address] [place] [address] Azeb Bailey APRN-CNP Constipation, unspecified constipation type 10/03/2024 Travel 09/19/2024 Refill [facility] [address] [place] [address] Miguel Hernandez PA TMJ (temporomandibular joint disorder) 09/19/2024 Refill [facility] [address] [place] [address] Tala Mane RN TMJ (temporomandibular joint disorder) (Primary Dx) from Last 3 Months Immunizations Immunization Administration [...] Mass Index 23.24 12/06/2024 7:26 PM EDT Plan of Treatment Health Maintenance Due Date Last Done Comments Tobacco Counseling 1975 Influenza Vaccine 11/06/2024 03/18/2024, , 02/24/2022 Depression Screening 11/10/2024 11/11/2023 Adult BMI Screening 12/06/2025 12/06/2024 Tobacco Screening 12/06/2025 12/06/2024 DTaP,Tdap and Td Vaccines (2 - Td or Tdap) 03/08/2034 03/08/2024 Colonoscopy 10/23/2034 10/23/2024, 10/23/2024 COVID-19 Vaccine Completed 03/18/2024 Medical Devices Not on file Procedures Procedure Name Priority Date/Time Associated Diagnosis Comments FL FLUOROSCOPY UP TO 1 HOUR Routine 11/10/2024 9:28 AM EDT TMJ (temporomandibular joint disorder) [place] ARTHROCENTESIS ASPIR&/INJ INTERM JT/BURS W/O US 11/10/2024 9:22 AM EDT TMJ (temporomandibular joint disorder) SURGICAL PATHOLOGY Routine 10/23/2024 10 :16 AM EDT Screen for colon cancer NH COLONOSCOPY FLX DX W/COLLJ SPEC WHEN PFRMD 10/23/2024 10:04 AM EDT Screen for colon cancer NH COLON CA SCRN NOT HI RSK IND 10/23/2024 10:04 AM EDT Screen for colon cancer COLONOSCOPY 10/23/2024 10:02 AM EDT PROVATION COLONOSCOPY Routine 10/23/2024 8:55 AM EDT from Last 3 Months Results * Fluoroscopy less than one hour (11/10/2024 9:28 AM EDT) Narrative SYSTEMGENERATED, DOCUMENTATION - 11/10/2024 9:28 AM EDT No Reading Required. This procedure does not require a formal dictation. Non-Radiologist provider performed procedures can be reviewed under Post-Op, Procedure or Progress notes. For full report details, please reach out to your physician. Effective 07/23/2020 this image will be visible to you in MyChart. us Kenyon Prather MD IMG FLUOROSCOPY ORDERABLES Fi nal Result * Surgical Pathology (10/23/2024 10:16 AM EDT) Case Report Surgical Pathology Report Case: [id number] Authorizing Provider: Mahamed Otoole DO Collected: 10/23/2024 1016 Ordering Location: [facility] Received: 10/23/2024 1234 [facility] Surgery Pathologist: Lenny Galo MD Specimen: Colon, RECTAL SIGMOID COLON POLYP 10/26/2024 10:24 PM EDT [facility] Final Diagnosis Rectosigmoid colon polyp; polypectomy: Hyperplastic polyp. 10/26/2024 10:24 PM EDT [facility] at 2224 EDT Gross Description Received in formalin labeled HODGES, rectal sigmoid colon polyp is a single guevraa to brown polypoid fragment of soft tissue, 1.1 x 0.6 x 0.3 cm. The polyp is inked teal at the surgical margin, serially sectioned and submitted in a single cassette. (1, ns, [id number], m6.1) MG 10/26/2024 10:24 PM EDT [facility] Embedded Images 10/26/2024 10:24 PM EDT [facility] Tissue Colon structure / Unknown 10/23/2024 10:16 AM EDT 10/23/2024 12:34 PM EDT Comment:Pre-op diagnosis: screening us Mahamed Otoole DO PATHOLOGY/CYTOLOGY ORDERABL ES Final Result [facility] [address] [id number], [facility] [address] [place] [address], * Colonoscopy (10/23/2024 10:02 AM EDT) 10/23/2024 10:0 2 AM EDT Narrative PM CARDIOVASCULAR - 10/23/2024 10:23 AM EDT [facility] Patient Name: Garrison Hodges Procedure Date No Time: 10/23/2024 CSN : [id number] Date of : 1975 Admit Type: Outpatient Age: 49 Room: PMH OR 06 Gender: Male Note Status: Finalized Attending MD: Mahamed Otoole DO, Procedure: Colonoscopy Indications: Screening for colorectal malignant neoplasm Providers: Mahamed Otoole DO Referring MD: Mahamed Otoole DO Medicines: Propofol per Anesthesia Complications: No immediate complications. Procedure: After I obtained informed consent, the scope was passed under direct vision. Throughout the procedure, the patient's blood pressure, pulse, and oxygen saturations were monitored continuously. The [employer] [id number] #[id number] ADULT COLONOSCOPE was introduced through the anus and advanced to the cecum, identified by appendiceal orifice and ileocecal valve. The colonoscopy was performed without difficulty. The patient tolerated the procedure well. The quality of the bowel preparation was good. Findings: The perianal and digital rectal examinations were normal. A 9 mm polyp was found in the recto-sigmoid colon. The polyp was sessile. The polyp was removed with a hot snare. Resection and retrieval were complete. The exam was otherwise without abnormality on direct and retroflexion views. Estimated Blood Loss: Estimated blood loss: none. Impression: - One 9 mm polyp at the recto-sigmoid colon, removed with a hot snare. Resected and retrieved. - The examination was otherwise normal on direct and retroflexion views. Recommendation: - Discharge patient to home. - Patient has a contact number available for emergencies. The signs and symptoms of potential delayed complications were discussed with the patient. Return to normal activities tomorrow. Written discharge instructions were provided to the patient. - Repeat colonoscopy in 5 years for surveillance based on pathology results. - Return to my office PRN. Procedure Code(s): --- Professional --- 36796, Colonoscopy, flexible; with removal of tumor(s), polyp(s), or other lesion(s) by snare technique Diagnosis Code(s): --- Professional --- Z12.11, Encounter for screening for malignant neoplasm of colon D12.7, Benign neoplasm of rectosigmoid junction CPT copyright 2022 [employer]. All rights reserved. The codes documented in this report are preliminary and upon vocal teacher review may be revised to meet current compliance requirements. DO Mahamed Moody DO 10/23/2024 10:23:08 AM Number of Addenda: 0 Note Initiated On: 10/23/2024 10:02 AM Procedure Note Mahamed Otoole DO - 10/23/2024 [facility] Patient Name: Garrison Hodges Procedure Date No Time: 10/23/2024 CSN : [id number] Date of : 1975 Admit Type: Outpatient Age: 49 Room: [place] [address] Gender: Male Note Status: Finalized Attending MD: Mahamed Otoole DO, Procedure: Colonoscopy Indications: Screening for colorectal malignant neoplasm Providers: Mahamed Otoole DO Referring MD: Mahamed Otoole DO Medicines: Propofol per Anesthesia Complications: No immediate complications. Procedure: After I obtained informed consent, the scope was passed under direct vision. Throughout theprocedure, the patient's blood pressure, pulse, and oxygen saturations were monitored continuously. TheTemnos [id number] #[id number] ADULT COLONOSCOPE was introduced through the anus and advanced to the cecum,identified by appendiceal orifice and ileocecal valve. The colonoscopy was performed without difficulty. The patient tolerated the procedure well. The qualityof the bowel preparation was good. Findings: The perianal and digital rectal examinations were normal. A 9 mm polyp was found in the recto-sigmoid colon. The polyp was sessile. The polyp was removed with a hot snare. Resection andretrieval were complete. The exam was otherwise without abnormality on direct and retroflexion views. Estimated Blood Loss: Estimated blood loss: none. Impression: - One 9 mm polyp at the recto-sigmoid colon,removed with a hot snare. Resected and retrieved. - The examination was otherwise normal on directand retroflexion views. Recommendation: - Discharge patient to home. - Patient has a contact number available for emergencies. The signs and symptoms of potential delayed complications were discussed with thepatient. Return to normal activities tomorrow. Written discharge instructions were provided to thepatient. - Repeat colonoscopy in 5 years for surveillancebased on pathology results. - Return to my office PRN. Procedure Code(s): --- Professional --- 86051, Colonoscopy, flexible; with removal of tumor(s), polyp(s), or other lesion(s) by snare technique Diagnosis Code(s): --- Professional --- Z12.11, Encounter for screening for malignant neoplasm of colon D12.7, Benign neoplasm of rectosigmoid junction CPT copyright 2022 [employer]. All rights reserved. The codes documented in this report are preliminary and upon vocal teacher reviewmay be revised to meet current compliance requirements. DO Mahamed Moody DO 10/23/2024 10:23:08 AM Number of Addenda: 0 Note Initiated On: 10/23/2024 10:02 AM us Mahamed Otoole DO GI PROCEDURE ORDERABLES Fin al Result PM CARDIOVASCULAR * Colonoscopy Report (10/23/2024 8:55 AM EDT) Narrative SYSTEMGENERATED, DOCUMENTATION - 10/23/2024 8:55 AM EDT This order has been auto-finalized for image and report archival in PACs. *For full report details, please reach out to your physician. This image is visible to you in MyChart.* us Mahamed Otoole DO IMG OR IMG ORDERABLES Final Result from Last 3 Months Insurance * Guarantor: Garrison Hodges Jr. Account Type Relation to Patient Date of Phone Billing Address Personal/Family Self 1975 [facility] [address] [place] [address] [employer] Care Teams Crew Manager Relationship Specialty Start Date End Date Carrington Fritz MD [address] [place] [address], [address] [place] [address] PCP - General Internal Medicine 12/06/24
--- OUTSIDE RECORDS SUMMARY | 2024-12-20 12:54 | XMS_ITS | Encounter Summary ---
Demographics Address [address] [place] [address] Mobile Phone Email Address Preferred Language Mauritian Marital Status Single Anabaptist Affiliation Unknown Race White Ethnic Group Not or Lati no Author Organization [employer] tem Address [id number] [address] [place] [address] Care Team Providers Care Web Analytics Specialist Name Role Phone Carrington Fritz MD Primary Care Provider [phone] Encounter Details Date Type Department Care Team ([facility] st Contact Info) Description 11/23/2024 Telephone [facility] Internal Medicine/Pediatrics [address] [place] [address] Carrington Fritz MD [address] [place] [address], [address] [place], [place] [id number] Social History Tobacco Use Types Packs/Day Years [...] * Telephone Encounter - Tesha Murphy - 11/23/2024 11:50 AM EDT Garrison would like to see someone who could screen his tongue for cancer. He was a smoker for 40 years and he thinks something is wrong with his tongue. His ENT was going to biopsy his tongue but then he started on his B12 and it went away, but now it is back and he has been on 26 rounds of anti fungal, and he isn't able to stick out the left side of his tongue and it feels like leather tearing. Sohe is wondering if he could see someone at the cancer Center? He said he called there, but they said he would need a referral. Please advise * Telephone Encounter - Carrington Fritz MD - 11/23/2024 11:50 AM EDT He has seen ENT multiple times and certainly they have looked at his tongue (as have I) and there has not been evidence of cancer. * Telephone Encounter - Tesha Murphy - 11/23/2024 11:50 AM EDT Garrison is following up with the [facility] today and will let us know what he finds out and we will go from there. documented in this encounter Plan of Treatment Not on file documented as of this encounter Visit Diagnoses Not on filedocumented in this encounter Additional Health Concerns Assessment Noted Time PHQ-9 Depression Total Score: 0 11/11/19 24 1:55 PM EDT documented as of this encounter Care Teams Web Analytics Specialist Relationship Specialty Start Date End Date Carrington Fritz MD [address] [place] [address], [address] [place] [address] PCP - General Internal Medicine 12/06/24 documented as of this encounter
--- OUTSIDE RECORDS SUMMARY | 2024-12-20 12:54 | XMS_ITS | Encounter Summary ---
Demographics Address [address] [place] [address] Mobile Phone Email Address Preferred Language Niuean Marital Status Single Muslim Affiliation Unknown Race White Ethnic Group Not or Lati no Author Organization [email or web address] [facility] tem Address [id number] [address] [place] [address] Care Team Providers Care Inflated Pad Buffer Name Role Phone Carrington Fritz MD Primary Care Provider Reason for Visit * Reason Comments Med Refill Encounter Details Date Type Department Care Team ([facility] st Contact Info) Description 11/20/[address] [facility] [address] [place] [address] Miguel Hernandez PA [address] [place], [place] [phone] TMJ (temporomandibular joint disorder) Social History Tobacco [...] documented as of this encounter Care Teams Inflated Pad Buffer Relationship Specialty Start Date End Date Carrington Fritz MD [address] [place] [address], [address] [place] [address] PCP - General Internal Medicine 12/06/24 documented as of this encounter
--- OUTSIDE RECORDS SUMMARY | 2024-12-20 12:54 | XMS_ITS | Encounter Summary ---
Author Organization [facility] Address [address] [place] [address] Care Team Providers Care Manpower Development Specialist Manager Name Role Phone Carrington Fritz MD Unavailable [phone] Carrington Fritz MD Primary Care Provider + Source Comments In the event this information is protected by the Federal Confidentiality of Alcohol and Drug AbusePatient Records regulations: The Federal rules restrict any use of the information to criminally investigate or prosecute any alcohol or drug abuse patient.[facility] Encounter Details Date Type Department Care Team (Late st Contact Info) Description 04/14/2024 Patient Msg Infectious Disease [address] [phone] Ayan Aquino MD lab Social History Tobacco Use Types Packs/Day [...] is lower risk 8 11/29/2023 Data from: https://www.neighborhoodatlas.[facility]/. Last address used for calculation [address] [...] No 09/25/2013 8:21 AM EDT Pravin Cruz, PATIENT FLOW COORDINATOR * Are you blind or do you have serious difficulty seeing, even when wearing glasses? Answer Date of Assessment Author No 09/25/2013 8:21 AM EDT Pravin Cruz, PATIENT FLOW COORDINATOR * Do you have serious difficulty walking or climbing stairs? Answer Date of Assessment Author No 09/25/2013 8:21 AM EDT Pravin Cruz, PATIENT FLOW COORDINATOR * Do you have difficulty dressing or bathing? Answer Date of Assessment Author No 09/25/2013 8:21 AM EDT Pravin Cruz, PATIENT FLOW COORDINATOR * Because of a physical, mental, or emotional condition, do you have difficulty doing errands alone such as visiting a doctor's office or shopping? Answer Date of Assessment Author No 09/25/2013 8:21 AM EDT Pravin Cruz, PATIENT FLOW COORDINATOR documented as of this encounter Mental Status * Because of a physical, mental, or emotional condition, do you have serious difficulty concentrating, remembering, or making decisions? Answer Entry Date Author Yes 09/25/2013 8:21 AM EDT Pravin Cruz, PATIENT FLOW COORDINATOR documented in this encounter Miscellaneous Notes * Telephone Encounter - Mitchel Coelho - 04/17/2024 8:[address] Aquino, Please see the below [employer] message and contact patient to advise within 72 hours. Mitchel Posadas Asst I'm concerned about all the high t cells in my blood and the high calcium. I have major problems swallowing and pain in my neck. Who or what dr investigates those glands * Telephone Encounter - Mitchel Coelho - 04/14/2024 3:[address] Aquino, Please see the below MyChart message and contact patient to advise within 72 hours. Mitchel Smith Can this be normalized with medication because I swear I feel it my Bones a head. Like my blood is super thick. 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] 12/25/2024 2:30 PM EDT Office Visit Facial Plastics [address] [facility] [place] [address] Jose Eduardo Hays MD [address] [place] [address] Follow-up Surgery complications 02/06/2025 1:00 PM EST [facility] Gastroenterology [address] [address] David Vazquez MD [address] [place] [address] esophagitis documented as of this encounter Visit Diagnoses Not on filedocumented in this encounter Care Teams Manpower Development Specialist Manager Relationship Specialty Start Date End Date Carrington Fritz MD [address] [place] [address], [address] [place], [place] [phone] PCP - General Internal Medicine 06/20/24 Carrington Fritz MD [address] [place] [address], [address] [place], [place] [phone] Referring Internal Medicine 11/26/23 documented as of this encounter
--- OUTSIDE RECORDS SUMMARY | 2024-12-20 13:02 | XMS_ITS | CCD ---
Author Organization [facility] Care Team Providers Care Stained Glass Joiner Name Role Phone Shaw Bermudez Unavailable Unavailable KAMEL, SAMEH S Unavailable Unavailable KAMEL, SAMEH S Unavailable Unavailable PHYSICIAN, NONE Unavailable Unavailable MICHELLE OVIEDO Unavailable Unavailable PREM PIPER Primary Care Unavailable DONAL DIXON Attending Unavailable Mechelle Reardon MD Primary Care Provider [phone] Unavailable Primary Care Provider UnavailJESSIE Robb Attending [...] Care UnavailDr. Ezequiel Medley Attending Unava ilable Carbajal RUSLANS, Bonillaeen Attending Unavailable Carbajal RUSLANS Tazeen Primary Care Provider Colette Vuong CNP Primary Care Provider [phone] CELY, P. JEFFREY Referring Unavailable CELY, P. [...] Attending Unavailable SELF, SELF Primary Care Unavailable Phillip Russo Attending Unavailab le Phillip Russo Admitting Unavailab Carrington Padron MD Unavailable CARRINGTON FRITZ Attending Unavailable CARRINGTON FRITZ Referring Unavailable CARRINGTON FRITZ Primary Care Unavailable YON CHONG Attending Unavailable CARRINGTON FRITZ Referring Unavailable CARRINGTON FRITZ Primary Care Unavailable YON CHONG Referring Unavailable CARRINGTON FRITZ Primary Care Unavailable CARRINGTON FRITZ Referring Unavailable CARRINGTON FRITZ Primary Care Unavailable CARRINGTON FRITZ Referring Unavailable CARRINGTON FRITZ Primary Care Unavailable Unavailable Primary Care Provider UnavailYasmin RILEYEmeraldVanesa Unavailable Yevgeniy BECKMAN, Colette Unavailable Unavailable Primary Care Provider UnavailCarrington Ndiaye MD Primary Care Provider Carmen Miller MD Primary Care Provider [phone] BRADLEY WATSON, NANCIE Jane Attending Unavailable Yevgeniy MOREColette BECKMAN Primary Care Provide r Carrington Fritz MD Primary Care Provider PROVIDER, UNKNOWN Referring Unavailable Carrington Fritz MD Primary Care Provider CARRINGTON FRITZ Referring Unavailable CARRINGTON FRITZ Primary Care Unavailable Carrington Fritz MD Primary Care Provider Home Garner MD Primary Care Provider HOME GARNER Primary Care Unavailable RYANN TRAYLOR Attending Unavailable HOME GARNER Primary Care Unavailable STEPHANIE OTOOLE Attending Unavailable Dre Wilde MD Primary Care Provider Carrington Fritz MD Primary Care Provider DRE WILDE Primary Care Unavailable WILL BORJA Referring Unavailable CARRINGTON FRITZ Primary Care UnavailCarmen Watson MD Primary Care Provider SANDEEP WILD Referring Unavailable KENNEDY DOMÍNGUEZ Attending Unavailable CARRINGTON FRITZ Primary Care Unavailabl GISEL To A Attending Unavailable KENNEDY DOMÍNGUEZ Referring Unavailable HIESTCARRINGTON HAYES Primary Care Unavailabl e IVFRAN JEFFERSON Attending Unavailable SANDEEP WILD Referring Unavailable HIESTFREDDY, CARRINGTON MADDEN Primary Care Unavailabl e HIESTFREDDY, CARRINGTON Cage Attending Unavailable HIESTCARRINGTON HAYES Referring Unavailable HIESTAND, CARRINGTON Cage Primary Care Unavailable HIESTCARRINGTON HAYES Attending Unavailable HIESTCARRINGTON HAYES Referring Unavailable HIESTFREDDY, CARRINGTON Cage Primary Care Unavailable HIESTFREDDY, CARRINGTON Cage Referring Unavailable HIESTAND, CARRINGTON Cage Primary Care Unavailable VU, FRAN-SARAHI Attending Unavailable HIESTANDCARRINGTON Referring Unavailable HIESTAND, CARRINGTON Cage Primary Care Unavailable HIESTAND, CARRINGTON Cage Attending Unavailable HIESTCARRINGTON HAYES Referring Unavailable HIESTAND, CARRINGTON Cage Primary Care Unavailable HIESTFREDDY, CARRINGTON Cage Attending Unavailable HIESTCARRINGTON HAYES Referring Unavailable HIESTAND, CARRINGTON Cage Primary Care Unavailable VU, FRAN-SARAHI Attending Unavailable HIESTCARRINGTON HAYES Referring Unavailable HIESTFREDDY, CARRINGTON Cage Primary Care Unavailable HIESTCARRINGTON HAYES Attending Unavailable HIESTCARRINGTON HAYES Referring Unavailable HIESTAND, CARRINGTON Cage Primary Care Unavailable HIESTCARRINGTON HAYES Attending Unavailable HIESTCARRINGTON HAYES Referring Unavailable HIESTAND, CARRINGTON Cage Primary Care Unavailable VU, FRAN-SARAHI Attending Unavailable PRATIMAESTCARRINGTON HAYES Referring Unavailable HIESTAND, CARRINGTON Cage Primary Care Unavailable HIESTCARRINGTON HAYES Attending Unavailable HIESTCARRINGTON HAYES Referring Unavailable HIESTAND, CARRINGTON Cage Primary Care Unavailable HIESTCARRINGTON HAYES Attending Unavailable CARRINGTON FRITZ Referring Unavailable PRATIMAESTFREDDY, CARRINGTON Cage Primary Care Unavailable CARRINGTON FRITZ Attending Unavailable PRATIMAESTCARRINGTON HAYES Referring Unavailable HIESTCARRINGTON HAYES Primary Care Unavailable AZEB AN Attending Unavailable PRATIMAESTCARRINGTON HAYES Referring Unavailable HIESTCARRINGTON HAYES Primary Care Unavailable HIESTCARRINGTON HAYES Attending Unavailable PRATIMAESTCARRINGTON HAYES Referring Unavailable PRATIMAESTCARRINGTON HAYES Primary Care Unavailable CHARI VELA Attending Unavailable CARRINGTON FRITZ Primary Care Unavailabl e HIESTAND, CARRINGTON MADDEN Primary Care Unavailabl e DONAL HAYS Referring Unavailable JAMIE NUR Attending Unavailable CARRINGTON FRITZ Primary Care Unavailelvia e SANJANA ENCARNACION Referring Unavailable GABE MARIN Referring Unavailable DONAL HAYS Attending Unavailable ERICA HART Attending Unavailable BRANDY ERICKSON Referring Unavaila GABE Phelps Attending Unavailable KORY KIRKLAND Referring Unavailable EYAL GARCIA Attending Unavailable EYAL GARCIA Referring Unavailable SELF Referring Unavailable KORY KIRKLAND Referring Unavailable CHERI GUDINO Attending [facility] SOFIE Nickerson Referring Unavailable BAYRON DURHAM Attending Unavailable [facility] Unavailabl e JUAN F WRIGHT Attending Unavailable [facility] Unavailabl e JUAN F WRIGHT Referring Unavailable KORY KIRKLAND Referring Unavailable KAY SIDDIQI Attending Unavailable MEGAN, KAY Referring Unavailable LYN SHIPMAN Attending Unavailable GABE MARIN Attending Unavailable [facility] Unavailabl e AVELINO OCONNOR Attending Unavailable [facility] Unavailabl SOFIE Nickerson Attending Unavailable [facility] Unavailabl e DIYA BONILLA Attending Unavailable [facility] Unavailabl e JUAN F WRIGHT Attending Unavailable LYN SHIPMAN Referring Unavailable JOSE R AQUINO Attending Unavailable JOSE R AQUINO Referring Unavailable LYN SHIPMAN Referring Unavailable DIYA BONILLA Attending Unavailable SELF Referring Unavailable BRANDY ERICKSON Attending Unavaila ROSSANA Liu Attending Unavailable MACKENZIE STATON Attending [facility] UnavailDONAL Jain Attending Unavailable DONAL HAYS Admitting Unavailable BRANDY ERICKSON Referring Unavaila ble BRANDY ERICKSON Attending Unavaila ble [facility] Unavailabl JUAN F Medina Attending Unavailable [facility] Unavailabl DONAL Jacobs Referring Unavailable NUR, KULWINDER R Referring Unavailable ABBE, CARMEN Primary Care Unavailable NUR, KULWINDER R Attending Unavailable NUR, KULWINDER R Referring Unavailable ABBE, CARMEN Primary Care Unavailable NUR, KULWINDER R Attending Unavailable NUR, KULWINDER R Referring Unavailable ABBE, CARMEN Primary Care Unavailable NUR, KULWINDER R Referring Unavailable ABBE, CARMEN Primary Care Unavailable NUR, KULWINDER R Attending Unavailable NUR, KULWINDER R Referring Unavailable ABBE, CARMEN Primary Care Unavailable NUR, KULWINDER R Referring Unavailable ABBE, CARMEN Primary Care Unavailable NUR, KULWINDER R Referring Unavailable ABBE, CARMEN Primary Care Unavailable NUR, KULWINDER R Referring Unavailable ABBE, CARMEN Primary Care Unavailable Self, Self Primary Care Provider Unavailelvia e BEVERLEY, CARRINGTON Cage Primary Care Unavailable LYN NAVARRETE Attending Unavailable HIESTAND, CARRINGTON Cage Primary Care Unavailable NIEVES REYES Attending Unavailab le HIESTAND, CARRINGTON Cage Primary Care Unavailable HIESTAND, CARRINGTON Cage Primary Care Unavailable HIESTAND, CARRINGTON Cage Primary Care Unavailable CHRISTINA CHACON Attending Unavailable HIESTFREDDY, CARRINGTON Cage Primary Care Unavailable LYN NAVARRETE Attending Unavailable GOLD JONES Attending Unavailable PRATIMAESTFREDDY, CARRINGTON Cage Referring Unavailable HIESTAND, CARRINGTON Cage Primary Care Unavailable HIESTFREDDY, CARRINGTON Cage Primary Care Unavailable LAURENCE BLANKENSHIP Admitting Unavailable LAURENCE BLANKENSHIP Attending Unavailable HIESTCARRINGTON HAYES Referring Unavailable HIESTAND, CARRINGTON Cage Primary Care Unavailable LAURENCE BLANKENSHIP Attending Unavailable LAURENCE BLANKENSHIP Referring Unavailable HIESTFREDDY, CARRINGTON Cage Primary Care Unavailable GOLD JONES Attending Unavailable ACRRINGTON FRITZ Referring Unavailable HIESTFREDDY, CARRINGTON Cage Primary Care Unavailable GABE MARIN Referring Unavailable HIESTAND, CARRINGTON Cage Primary Care Unavailable GABE MARIN Referring Unavailable HIESTFREDDY, CARRINGTON Cage Primary Care Unavailable [place], CARRINGTON Cage Primary Care Unavailable [place], CARRINGTON Cage Attending Unavailable PRATIMAESTCARRINGTON HAYES Referring Unavailable HIESTAND, CARRINGTON Cage Primary Care Unavailable GOLD JONES Attending Unavailable CARRINGTON FRITZ Referring Unavailable HIESTAND, CARRINGTON Cage Primary Care Unavailable GABE MARIN Referring Unavailable HIESTFREDDY, CARRINGTON Cage Primary Care Unavailable LAURENCE BLANKENSHIP Admitting Unavailable LAURENCE BLANKENSHIP Attending Unavailable CARRINGTON FRITZ Referring Unavailable HIESTAND, CARRINGTON Cage Primary Care Unavailable LAURENCE BLANKENSHIP Attending Unavailable LAURENCE BLANKENSHIP Referring Unavailable HIESTFREDDY, CARRINGTON Cage Primary Care Unavailable GOLD JONES Attending Unavailable CARRINGTON FRITZ Referring Unavailable [place], CARRINGTON Cage Primary Care Unavailable GABE MARIN Referring Unavailable HIESTAND, CARRINGTON Cage Primary Care Unavailable GOLD JONES Attending Unavailable HIESTAND, BAR Referring Unavailable HIESTAND, CARRINGTON Cage Primary Care Unavailable HIESTAND, CARRINGTON Cage Primary Care Unavailable LYN NAVARRETE Attending Unavailable NUR, KULWINDER R Referring Unavailable HIESTAND, CARRINGTON Cage Primary Care Unavailable HIESTAND, CARRINGTON Cage Attending Unavailable HIESTAND, CARRINGTON Cage Referring Unavailable HIESTAND, CARRINGTON Cage Primary Care Unavailable LAURENCE BLANKENSHIP Admitting Unavailable LAURENCE BLANKENSHIP Attending Unavailable HIESTAND, CARRINGTON Cage Referring Unavailable HIESTAND, CARRINGTON Cage Primary Care Unavailable HIESTAND, CARRINGTON Cage Primary Care Unavailable KENNEDY DOMÍNGUEZ Referring Unavailable NUR, KULWINDER R Referring Unavailable HIESTAND, CARRINGTON Cage Primary Care Unavailable GOLD JONES S Attending Unavailable PRATIMAESTAND, CARRINGTON Cage Referring Unavailable HIESTAND, CARRINGTON Cage Primary Care Unavailable GRILLIS, NIEVES E Admitting Unavailable GRILLIS, NIEVES King Attending Unavailable GRILLIS, NIEVES Christine Referring Unavailable HIESTAND, CARRINGTON Cage Primary Care Unavailable PATTIE, LAURENCE King Admitting Unavailable LAURENCE BLANKENSHIP Attending Unavailable HIESTAND, CARRINGTON Cage Referring Unavailable HIESTAND, CARRINGTON Cage Primary Care Unavailable BLANKENSHIP, LAURENCE King Attending Unavailable BLANKENSHIP, LAURENCE Christine Referring Unavailable HIESTAND, CARRINGTON Cage Primary Care Unavailable GOLD JONES S Attending Unavailable HIESTAND, CARRINGTON Cage Referring Unavailable HIESTAND, CARRINGTON Cage Primary Care Unavailable HIESTAND, CARRINGTON Cage Primary Care Unavailable Sebastien Warren Unavailable Alhaji Lee HOBSON Unavailable Allergies Allergy Classification Reported Allergen(s) Allergy Type Date of Onset Reaction(s) Facility Penicillins (antibiotic) (1 source) Penicillins Drug Allergy 8 Swelling [facility] (20 sources) Penicillins; Translations: [PENICILLINS] Propensity to adverse reactions 8 Anaphylaxis, Cough, Swelling [facility] Work Phone: (1 source) Penicillin Drug Allergy Angioedema [facility] (19 sources) Penicillin V Drug Allergy 4 Skin Rashes / Eruption of skin, Hives / Urticaria [facility] (7 sources) Penicillins Drug Allergy 8 Anaphylaxis, Swelling [facility] (20 sources) Penicillins Propensity to adverse reactions to drug 03-28-200 8 Anaphylaxis, Cough, Swelling [facility] Medications Current Medications Medication Drug Class(es) Dates Sig (Normalized) Sig (Original) atomoxetine 40 mg oral capsule (20 sources) Norepinephrine Reuptake Inhibitor Start: 07-07-2023 End: 03-06-2024 take 1 capsule by mouth once daily atomoxetine (Strattera) 40 MG capsule Indications: Attention deficit hyperactivity disorder (ADHD), unspecified ADHD type Take 1 capsule by mouth daily. 28 capsule 2 08/05/2023 Active Start: 02-25-2023 End: 05-10-2023 Atomoxetine HCl 40 MG Oral C apsule 02/25/2023 - 05/10/2023 Provider: b complex, c, folic acid 1 mg renal vitamins (NEPHROCAPS) 1 mg capsule (16 sources) take 1 capsule by mouth once daily in the morning b complex, c, folic acid 1 mg renal vitamins (NEPHROCAPS) 1 mg capsule Take 1 capsule by mouth every morning. Active baclofen 10 mg oral tablet (9 sources) gamma-Aminobutyri c Acid-ergic Agonist Start: baclofen (LIORESAL) 10 mg tablet 1 twice a day for 2 weeks and then One 4 times a day 11/02/2024 Active take 1 tablet by mouth four time s daily baclofen 10 MG tablet Take 1 tablet by mouth 4 times daily. Active take 1 tablet by mouth three jovanna es daily baclofen 10 MG tablet Take 1 tablet by mouth 3 times daily. Active buprenorphine 8 mg / naloxone 2 mg sublingual tablet (20 sources) Partial Opioid Agonist, Opioid Antagonist Start: 09-29-2024 buprenorphine-naloxo ne (SUBOXONE) 8-[address] SL tablet [address] 1 TABLET UNDER TONGUE THREE TIMES A DAY WAIT 1HOUR AFTER BRUSHING TEETH TO TAKE MEDICATION. 09/29/2024 Active Start: 08-17-2024 buprenorphine- naloxone (SUBOXONE) 8-2 mg film 08/17/2024 Active buprenorphine 2 mg/naloxone 0.5 mg (SUBOXONE) SL film Place 1 strip under tongue daily. Active buprenorphine-na loxone (Suboxone) 2-0.[address] under the tongue. Active Calcium Magnesium Zinc 333-133-5 MG Oral Tablet (7 sources) Start: 03-06-2024 Calcium Magnes ium Zinc 333-133-5 MG Oral Tablet 03/06/2024 Provider: chlorproMAZINE hydrochloride 50 mg oral tablet (20 sources) Phenothiazine Start: 12-31-2023 End: 12-31-2023 take 2 tablets by mouth once, then take 1 tablet by mouth every hour chlorproMAZINE (THORAZINE) 50 mg tablet Take 2 tablets by mouth one time only for 1 dose. Take 1 hour prior to MRI. 2 tablet 12/31/2023 Active ciclopirox 80 mg/ml topical solution (20 sources) Start: 08-19-2023 ciclopirox (PE NLAC) 8 % solution APPLY TO AFFECTED TOENAIL AND ADJACENT SKIN ONCE DAILY IN COMBINA... (REFER TO PRESCRIPTION NOTES). 08/19/2023 Active Start: 05-10-2023 End: 07-15-2023 Ciclopirox 8% External Solut ion 06/03/2023 - 07/15/2023 Provider: Colette Vuong CNP clonazePAM 1 mg oral tablet (20 sources) Benzodiazepine Start: 11-22-2024 take 1 tablet by mouth twice daily as needed for anxiety clonazePAM (KlonoPIN) 1 mg tablet Indications: Anxiety Take 1 tablet (1 mg total) by mouth 2 (two) times a day as needed for anxiety. 60 tablet 11/22/2024 Active Start: 10-23-2024 take 1 tablet by nicholas twice daily as needed for anxiety clonazePAM (KlonoPIN) 1 mg tablet Indications: Anxiety Take 1 tablet (1 mg total) by mouth 2 (two) times a day as needed for anxiety. 60 tablet 10/23/2024 Active Start: 04-04-2024 End: 09-18-2024 take 1 tablet by mouth every twelve hours as needed clonazePAM (KLONOPIN) 1 mg tablet Take 1 mg by mouth two times a day as needed for anxiety. 06/01/2024 Active Start: 02-15-2024 End: 03-16-2024 take 1 tablet by mouth twice daily clonazePAM (KlonoPIN) 0.5 mg tablet Take 1 tablet (0.5 mg) by mouth twice a day. 02/15/2024 Active Start: 02-15-2024 End: 04-04-2024 clonazePAM (KLONOPIN) 0.5 mg tablet Take 1 mg by mouth. 02/15/2024 Active clotrimazole 10 mg oral lozenge (4 sources) Azole Antifungal Start: 12-28-2023 End: 01-07-2024 take 1 tablet by mouth three times daily clotrimazole (MYCELEX) 10 mg roxana Dissolve 1 tablet (10 mg total) in the mouth 3 (three) times a day for 10 days. 30 tablet 12/28/2023 01/07/2024 Active Start: 11-24-2023 End: 12-04-2023 take 1 [...] Capsule 0 08/25/2023 - 03/06/2024 Provider: Colette Vuong CNP cyanocobalamin, vitamin B-12, (B-12 COMPLIANCE INJECTION) (20 sources) cyanocobalamin, vitamin B-12, (B-12 COMPLIANCE INJECTION) by INJECTION(UNSPECIFIED PARENTERAL ROUTES) route once every month. Active Daily Value Multivitamin Oral Tablet (9 sources) Start: 08-25-19 Daily Value Multivitamin Oral Tablet 08/25/2023 Provider: Colette Vuong CNP doxycycline hyclate 100 mg oral capsule (20 sources) Tetracycline -class Drug Start: 01-17-20 End: 01-24-20 take 1 capsule by mouth in the morning, then take 1 capsule by mouth at bedtime doxycycline (VIBRAMYCIN) 100 mg capsule Take 1 capsule (100 mg total) by mouth in the morning and 1 capsule (100 mg total) before bedtime. Do all this for 7 days. 14 capsule 01/17/2024 01/24/2024 Active Start: 11-06-2023 End: 11-13-2023 take 1 [...] ral Tablet 04/12/2023 - 05/10/2023 Provider: Colette Vuong CNP DULoxetine 30 mg delayed release oral capsule (20 sources) Serotonin and Norepinephrine Reuptake Inhibitor Start: 07-21-2024 End: 10-26-2024 take 1 capsule by mouth in the morning DULoxetine (CYMBALTA) 30 mg capsule Take 1 capsule (30 mg total) by mouth in the morning. 08/17/2024 Active take 1 capsule by mouth once kwasi ly DULoxetine [address] Particles capsule DR Take 1 capsule by mouth daily. Active eucalyptol 0.92 mg/ml / menthol 0.42 mg/ml / methyl salicylate 0.6 mg/ml / thymol 0.64 mg/ml mouthwash (2 sources) Start: 09-02-2023 take 15 mL by mouth three times daily as needed Mouthwashes (BIOTENE) LIQD oral solution Swish and spit 15 mLs 3 times daily as needed (mouth dryness) 273 mL 1 09/02/2023 Active ferrous gluconate 240 mg oral tablet (16 sources) Start: 03-06-2024 Ferrous Glucon ate 240 mg (27 mg iron) tablet Take by mouth as directed. 03/06/2024 Active fluconazole 100 mg oral tablet (5 sources) Azole Antifungal Start: 11-17-2024 End: 12-01-2024 fluconazole (DIFLUCAN) 100 mg tablet Indications: Oral thrush Take 2 tablets Day 1, then 1 tablet daily 15 tablet 11/17/2024 12/01/2024 Active take 1 tablet by mouth once freda y Fluconazole 100 MG tablet Take 1 tablet by mouth daily. Active fluticasone propionate 0.05 mg/actuat metered dose nasal spray (20 sources) Corticosteroid Start: 08-16-2023 fluticasone (F LONASE) 50 mcg/actuation [...] mouth three times daily as needed for anxiety hydrOXYzine pamoate (Vistaril) 50 MG capsule Indications: Primary insomnia Take 1 capsule by mouth 3 times daily as needed for Anxiety. 84 capsule 2 03/18/2023 Active ibuprofen 800 mg oral tablet (20 sources) Nonsteroidal Anti-inflammatory Drug Start: 11-28-2024 take 1 tablet by mouth twice daily as needed for pain ibuprofen (MOTRIN) 800 mg tablet Take 1 tablet (800 mg total) by mouth 2 (two) times a day as needed for pain. 60 tablet 1 11/28/2024 Active Start: 04-26-2023 End: 11-11-2023 ibuprofen (MOTRIN) 800 mg ta blet 1 tablet (800 mg total). 07/07/2023 11/11/2023 Discontinued (Therapy completed) take 4 tablets by mo uth every six hours as needed Ibuprofen 200 MG tablet Take 4 tablets by mouth every 6 hours as needed for Mild Pain (x3 per day). Active ipratropium bromide 0.042 mg/actuat metered dose nasal [...] medicated shampoo (20 sources) Azole Antifungal Start: 10-23-2024 ketoconazole (NIZORAL) 2 % shampoo Indications: Seborrhea capitis Apply 1 Application topically 2 (two) times a week. Apply to damp skin, lather, leave on 5 minutes, and rinse 120 mL 10/23/2024 Active Start: 03-16-2024 End: 07-22-2024 ketoconazole (NIZORAL) 2 % s hampoo Indications: Seborrhea capitis Apply 1 Application topically 2 (two) times a week. Apply to damp skin, lather, leave on 5 minutes, and rinse 120 mL 05/01/2024 Active Ketoconazole 2 % Shampoo shampoo Apply 1 Application topically 3 times weekly. Apply topically to wet hair 3-4 times a week Active LORazepam 2 mg oral tablet (1 source) Benzodiazepine Start: 01-05-2024 End: 01-05-2024 take 1 tablet by mouth once LORazepam (ATIVAN) 2 mg tab Indications: Claustrophobia Take 1 tablet by mouth one time only for 1 dose. Take before MRI 1 tablet 01/05/2024 01/05/2024 Active mupirocin 0.02 mg/mg topical ointment (20 [...] a day. 22 g 06/01/2024 Active Start: 12-22-2023 End: 01-01-2024 mupirocin (BACTROBAN) 2 % oi ntment Indications: Nasal bleeding Apply 1 Application topically in the morning and 1 Application before bedtime. Do all this for 10 days. 22 g 12/22/2023 01/01/2024 naloxone (NARCAN) 4 mg/actuation spray,non-aerosol nasal spray (13 sources) Start: 08-17-2024 naloxone (NARCAN) 4 mg/actuation spray,non-aerosol [...] (20 sources) Nicotinic Acid Start: 08-25-2023 niacin (NIACIN) 100 mg tablet Take by mouth as directed. 08/25/2023 Active 24 hr nicotine 0.875 mg/hr [...] by mouth twice a day. 12/06/2023 Active End: 02-15-2024 take 1 capsule by mouth three times daily nortriptyline (PAMELOR) 25 mg capsule Take 1 capsule (25 mg total) by mouth 3 (three) times a day. 02/15/2024 Discontinued nystatin 418310 unt/ml oral suspension (12 sources) Polyene Antifungal [...] 02/10/2024 Active Start: 08-25-2023 End: 04-06-2024 Nystatin 969253 UNIT/ML Mout h/Throat Suspension 08/25/2023 - 04/06/2024 Provider: Colette Vuong CNP omeprazole 40 mg delayed release oral capsule (20 sources) Proton Pump Inhibitor Start: 11-07-2024 End: 02-05-2025 take 1 capsule by mouth in the morning omeprazole (PriLOSEC) 40 mg capsule Take 1 capsule (40 mg total) by mouth in the morning. 11/07/2024 02/05/2025 Active Start: 09-02-2023 End: 06-01-2024 take 1 capsule by mouth once daily omeprazole (PRILOSEC) 40 mg capsule Take 40 mg by mouth once daily. 11/28/2023 Active ondansetron 4 mg disintegrating [...] 07/23/2024 Active OXcarbazepine 300 mg oral tablet (13 sources) Anti-epileptic Agent Start: 06-09-2024 End: 08-18-2024 OXcarbazepine (TRILEPTAL) 300 MG tablet One to be taken twice a day for 2 weeks and then One 3 times a day 60 tablet 3 06/09/2024 Active take 1 tablet by mouth twice kwasi ly OXcarbazepine 150 MG tablet Take 1 tablet by mouth 2 times daily. Active oxyCODONE hydrochloride 5 mg oral tablet [...] surgery. 30 mL 1 07/20/2024 07/23/2024 Active peg 3350-sod sulf,[id number] 178.7-7.3-0.5 gram recon soln (2 sources) Start: 10-03-2024 End: 10-04-2024 peg 3350-sod sulf,[id number]-adr-pwv 178.7-7.3-0.5 gram recon soln Indications: Encounter for screening colonoscopy Take 1 kit by mouth in the morning for 1 dose. Please see instructional sheet given by physicians office. 1 each 10/03/2024 10/04/2024 Active pregabalin 200 mg oral capsule (20 sources) Start: 10-19-2024 End: 11-23-2024 take 1 capsule by mouth three times daily pregabalin (LYRICA) 200 mg capsule Indications: TMJ (temporomandibular joint disorder) Take 1 capsule (200 mg total) by mouth 3 (three) times a day. 90 capsule 1 11/23/2024 Active Start: 09-21-2024 End: 10-19-2024 take 1 capsule by mouth three times daily pregabalin (LYRICA) 150 mg capsule Indications: TMJ (temporomandibular joint disorder) Take 1 capsule (150 mg total) by mouth 3 (three) times a day. 90 capsule 1 09/21/2024 10/19/2024 Discontinued Start: 08-15-2024 End: 09-05-2024 take 1 capsule by mouth three times daily pregabalin (LYRICA) 150 mg capsule Indications: TMJ (temporomandibular joint disorder) Take 1 capsule (150 mg total) by mouth 3 (three) times a day. 90 capsule 08/15/2024 09/05/2024 Discontinued Start: 07-20-2024 End: 08-15-2024 take 1 capsule by mouth three times daily pregabalin (LYRICA) 100 mg capsule Indications: TMJ (temporomandibular joint disorder) Take 1 capsule (100 mg total) by mouth 3 (three) times a day. 90 capsule 07/20/2024 08/15/2024 Discontinued Start: 07-04-2024 End: 07-20-2024 pregabalin (LYRICA) 75 mg ca psule Take 75 mg by mouth. 07/04/2024 Active take 8 capsules by m outh three times daily pregabalin 25 MG capsule Take 8 capsules by mouth 3 times daily. Active take 1 capsule by mo uth twice daily pregabalin (Lyrica) 200 mg capsule Take 1 capsule (200 mg) by mouth 2 times a day. Active QUEtiapine 100 mg oral tablet (20 sources) Atypical Antipsychotic Start: 08-05-2023 take 2 tablets by mouth at bedtime QUEtiapine 100 MG tablet Indications: Mood disorder Take 2 tablets by mouth at bedtime. 56 tablet 2 08/05/2023 Active Start: 02-22-2023 End: 08-16-2023 QUEtiapine Fumarate [...] 4 hours as needed. 03/16/2024 04/14/2024 Discontinued sulfamethoxazole 800 mg / trimethoprim 160 mg oral tablet (20 sources) Dihydrofolate Reductase Inhibitor Antibacterial, Sulfonamide Antimicrobial Start: 07-20-2024 End: 07-30-2024 take 1 tablet by mouth twice daily sulfamethoxazole-trimethoprim (BACTRIM DS) 800-160 mg per tablet [...] 7 days. 14 tablet 04/03/2024 04/10/2024 Active End: 05-01-2024 take 1 tablet by mouth once in the morning sulfamethoxazole-trimethoprim (BACTRIM D S) 800-160 mg per tablet Take 1 tablet by mouth in the morning and 1 tablet before bedtime. 05/01/2024 Discontinued triamcinolone acetonide 0.001 mg/mg topical ointment (20 sources) Corticosteroid Start: 06-13-2024 triamcinolone acetonide (KENALOG) [...] Wed05/15/24 at 1503, Until Wed05/15/24 at 1503 triamcinolone 0. 025 % Cream cream Apply 1 Application topically 2 times daily. Active ubidecarenone 10 mg oral capsule (20 sources) Start: 08-25-2023 End: 09-02-2024 take 1 capsule by mouth three times daily ubidecarenone Q-10 (CO Q-10) 10 mg cap Take 10 mg by mouth three times a day. 08/25/2023 Active Start: 08-25-2023 End: 09-02-2024 take 1 capsule by mouth once coenzyme Q10 10 mg capsul e Take 1 capsule (10 mg total) by mouth. 08/25/2023 09/02/2024 Active Start: 08-25-2023 End: 09-02-2024 Coenzyme Q10 150 MG CAPS Gilmer e by mouth 08/25/2023 09/02/2024 Active Start: 08-25-2023 CoQ-10 150 MG Oral Capsule 08/25/2023 Provider: Colette Vuong CNP varenicline 1 mg oral tablet (20 sources) [...] sources) Vitamin A Start: 03-06-2024 Vitamin A 2,40 0 mcg capsule Take 8,000 Units by mouth. 03/06/2024 Active Start: 03-06-2024 Vitamin A 2400 MCG (8000 UT) Oral Capsule 03/06/2024 Provider: End: 06-01-2024 take 1 capsule by mouth in the morning vitamin A 8000 UNIT capsule Take 1 capsule (8,000 Units total) by mouth in the morning. 06/01/2024 Discontinued vitamin b12 1 mg/ml injectable solution (20 sources) Vitamin B12 Start: 05-17-2024 End: 11-17-2024 cyanocobalamin 1000 MCG/ML injection 1 mL 05/17/2024 Active Cyanocobalamin 1 000 MCG/ML Kit Inject as directed. Active zolpidem tartrate 10 mg oral tablet (20 sources) gamma-Aminobutyric Acid-ergic Agonist Start: 02-25-2023 End: 07-15-2023 take 1 tablet by mouth at bedtime as needed for sleep zolpidem 10 MG tablet Indications: Primary insomnia Take 1 tablet by mouth at bedtime as needed for Sleep for up to 7 days. 7 tablet 3 05/18/2023 Active Completed/Discontinued Medications Medication Drug Class(es) Dates Sig (Normalized) Sig (Original) acetaminophen 500 mg oral tablet (18 sources) Start: 04-26-2023 End: 05-10-2023 Acetaminophen 500 MG Oral Tablet 04/26/2023 - 05/10/2023 Provider: Colette Vuong CNP Acetaminophen 32 5 MG tablet Take 200 mg by mouth every 6 hours as needed for Severe Pain (x3 day). Active ALPRAZolam 1 mg oral tablet (14 sources) Benzodiazepine Start: 12-16-2023 End: 02-15-2024 ALPRAZolam (XANAX) 1 mg tablet Indications: Anxiety Take 1 tab 30 minutes prior to MRI. May repeat once if needed. 2 tablet 12/16/2023 02/15/2024 Discontinued (Therapy completed) asenapine 10 mg sublingual tablet (20 sources) [...] IMG ONCE PRN, 1 dose, Starting on 07/10/24 at 1402, Until Wed07/10/24 at 1404, Other [...] for 7 days. 28 capsule 07/30/2023 08/06/2023 cyclobenzaprine hydrochloride 10 mg oral tablet (15 sources) Muscle Relaxant Start: 02-04-2024 End: 08-18-2024 take 1 tablet by mouth twice daily as needed for muscle spasms cyclobenzaprine (FLEXERIL) 10 mg tablet Take 1 tablet (10 mg total) by mouth 2 (two) times a day as needed for muscle spasms. 10 tablet 02/04/2024 02/15/2024 Discontinued take 0.5-1 tablets b y mouth three times daily as needed for pain cyclobenzaprine (FLEXERIL) 10 mg tablet TAKE 1/2 TO 1 (ONE-HALF TO ONE) TABLET BY MOUTH THREE TIMES DAILY NEEDED FOR MUSCLE PAIN MAY CAUSE DROWSINESS Active gabapentin 800 mg oral tablet (20 sources) [...] 06/08/2024 Discontinued (Reorder) Start: 03-06-2024 End: 05-06-2024 Gabapentin 300 MG Oral Capsu le 04/06/2024 - 05/06/2024 Provider: Vanesa RILEY Start: 07-30-2023 End: 03-06-2024 Gabapentin 100 MG Oral Capsu le, conventional 09/24/2023 - 03/06/2024 Provider: Colette Vuong CNP End: 07-21-2024 take 2 capsules by [...] 1511, Other indomethacin 25 mg oral capsule (17 sources) Nonsteroidal Anti-inflammatory Drug Start: 02-15-2024 End: 03-16-2024 indomethacin (INDOCIN) 25 mg capsule Indications: TMJ (temporomandibul ar joint disorder) Take 1 capsule (25 mg [...] at 1244, Until Wed11/16/23 at 1336, Other ketorolac tromethamine 10 mg oral tablet (2 sources) Nonsteroidal Anti-inflammatory Drug, Cyclooxygenase Inhibitor Start: 02-09-2024 End: 02-15-2024 take 1 tablet by mouth three times daily as needed for pain ketorolac (TORADOL) 10 mg tablet Take 1 tablet (10 mg total) by mouth 3 (three) times a day as needed for pain for up to 5 days. 15 tablet 02/09/2024 02/15/2024 Discontinued Start: 10-28-2023 End: 10-28-2023 inject 1 dose by intramuscular injection once 30 mg, IntraMUSCular, ONCE, 1 dose, On Imelda 10/28/23 at 1805 levoFLOXacin 500 mg oral tablet (20 sources) [...] Oral Tablet 05/10/2023 - 08/25/2023 Provider: Colette Vuong CNP meclizine hydrochloride 25 mg oral tablet (2 sources) Antiemetic Start: 04-22-2022 End: 04-22-2022 meclizine (Antivert) tablet 25 mg melatonin 5 mg oral tablet (2 sources) Start: 04-22-2022 End: 04-23-2022 melatonin tablet 5 mg methocarbamol 750 mg oral tablet (8 sources) Muscle Relaxant End: 03-16-2024 take 1 tablet by mouth at bedtime methocarbamoL (ROBAXIN) 750 mg tablet Take 1 tablet (750 mg total) by mouth in the morning and at bedtime. 03/16/2024 Discontinued polyethylene glycol 3350 70206 mg powder for oral solution (9 sources) Osmotic Laxative Start: 10-03-2024 End: 10-03-2024 polyethylene glycol (GLYCOLAX) 17 gram packet Indications: Constipation, unspecified constipation type Take 17 g by mouth in the morning. 30 packet 10/03/2024 10/03/2024 Discontinued Start: 10-03-2024 End: 11-17-2024 polyethylene glycol (GLYCOLA X) 17 gram/dose powder Indications: Constipation, unspecified constipation type DISSOLVE 17 GRAMS IN 8 OZ OF FLUID LIQUID DRINK DAILY DIRECTED 238 g 10/03/2024 11/17/2024 Discontinued predniSONE 20 mg oral tablet (14 sources) Start: 05-07-2023 End: 07-15-2023 predniSONE 20 MG Oral Tablet 05/07/2023 - 07/15/2023 Provider: saliva stimulant comb. no.3 (BIOTENE) spray,non-aerosol (5 [...] (dry mouth). 45 mL 2 03/16/2024 Active 1000 ml sodium chloride 9 mg/ml injection (20 sources) Start: 10-31-2024 End: 11-01-2024 take 30 mL intravenously every hour 30 mL/hr, INTRAVENOUS, CONTINUOUS, Starting on Wed10/31/24 at 0930, Until Wed11/01/24 at 0407, Preprocedure Start: 07-20-2024 End: 08-19-2024 sodium chloride (SALINE NASA L) 0.65 % nasal spray Use 3 sprays in the nose every 2 hours while awake. 405 mL 07/20/2024 08/19/2024 Active Start: 06-01-2024 End: 11-17-2024 sodium chloride (OCEAN) 0.65 % nasal spray Administer 2 sprays into each nostril as needed for congestion. 15 mL 12 06/01/2024 11/17/2024 Discontinued Start: 04-10-2024 End: 05-01-2024 sodium chloride (OCEAN) 0.65 % nasal spray Indications: Xerostomia Administer 2 sprays into each nostril as needed (nasal dryness). 60 mL 2 04/10/2024 05/01/2024 Discontinued Start: 03-16-2024 End: 04-08-2024 sodium chloride (OCEAN) 0.65 % nasal spray Indications: Xerostomia Administer 2 sprays into each nostril as needed (nasal dryness). 60 mL 2 04/10/2024 Active sofosbuvir 400 mg / velpatasvir 100 mg oral tablet (15 sources) Hepatitis C Virus NS5A Inhibitor, Hepatitis C Virus Nucleotide Analog NS5B Polymerase Inhibitor Start: 04-29-2023 End: 04-06-2024 Epclusa 400-100 MG Oral Tablet 04/29/2023 - 04/06/2024 Provider: Colette Vuong CNP tea tree oil 1000 mg/ml topical oil [...] 1 tablet by mouth daily 08/30/2023 Active tiZANidine 4 mg oral tablet (20 sources) Central alpha-2 Adrenergic Agonist Start: 07-21-2024 End: 11-17-2024 take 1 tablet by mouth once daily as needed tiZANidine (ZANAFLEX) 4 mg tablet Take 1 tablet (4 mg total) by mouth daily as needed. 09/13/2024 11/17/2024 Discontinued Start: 07-29-2023 End: 11-11-2023 take 1 tablet by mouth every eight hours as needed tiZANidine (ZANAFLEX) 4 mg tablet Take 1 tablet (4 mg total) by mouth every 8 (eight) hours as needed for muscle spasms. 21 tablet 09/22/2023 11/11/2023 Discontinued (Therapy completed) Start: 05-07-2023 End: 07-15-2023 tiZANidine HCl 4 MG Oral Tab let 05/07/2023 - 07/15/2023 Provider: turmeric-g.lmj-vllkztkne-vhq cc [id number] mg capsule (15 sources) End: 01-20-2024 take 1 capsule by mouth once daily in the morning turmeric-g.otr-zuxqxoitn-gnjph [id number] mg capsule Take by mouth every morning. 01/20/2024 Discontinued take 1 capsule by [facility] once daily in the morning turmeric-g.njb-copfpxkkg-kibqq 200-200-5 0-30 mg capsule Take by mouth every morning. Active valACYclovir 500 mg oral tablet (10 sources) Herpesvirus Nucleoside Analog DNA Polymerase Inhibitor, Herpes Simplex Virus Nucleoside Analog DNA Polymerase Inhibitor, Herpes Zoster Virus Nucleoside Analog DNA Polymerase Inhibitor Start: 01-28-2024 End: 03-16-2024 take 1 tablet by mouth in the morning valACYclovir (VALTREX) 500 mg tablet Take 1 tablet (500 mg total) by mouth in the morning. 01/29/2024 03/16/2024 Discontinued (Therapy completed) vit B complex no.12/niacin,B3, (VITAMIN B COMPLEX NO.12-NIACIN ORAL) (20 sources) End: 07-06-2024 vit B complex no.12/niacin,B3, (VITAMIN B COMPLEX [...] by mouth in the morning. 06/01/2024 Discontinued Problems Active Problems Problem Classification Problem Date [...] Chronic Attention-deficit, conduct, and disruptive behavior disorders (11 sources) Attention deficit hyperactivity disorder; Translations: [Attention-deficit hyperactivity disorder, unspecified type] Onset: 4 08-12-2023 Chronic Complication of device; implant or graft (2 sources) Pain due to other internal prosthetic devices, implants and grafts, initial encounter; Translations: [Pain due to other internal prosthetic devices, implants and grafts, initial encounter] Onset: 4 Episodic Disorders of teeth and jaw (9 sources) Acquired absence of all teeth; Translations: [Complete loss of teeth, unspecified cause, unspecified class] Onset: 4 08-12-2023 Chronic Disorders of teeth and jaw (20 sources) Unspecified temporomandibular joint disorder, unspecified side; Translations: [Jaw pain] Onset: 3 Episodic Headache; including migraine (3 sources) Chronic cluster headache; Translations: [Chronic cluster headache, intractable] Onset: 5 01-30-2024 Chronic Headache; including migraine (12 sources) Pain in face; Translations: [Right facial pain] 12-10-2023 Episodic Headache; including migraine (3 sources) Headache; including migraine; Translations: [Headache, unspecified] Onset: 4 Hepatitis (8 sources) Chronic hepatitis C; Translations: [Chronic viral hepatitis C] Onset: 3 11-27-2022 Chronic Miscellaneous mental health disorders (13 sources) Primary insomnia; Translations: [Primary insomnia] Onset: 4 Chronic Mood disorders (2 sources) Unspecified mood [affective] disorder; Translations: [Unspecified mood (affective) disorder] Onset: 4 Chronic Mood disorders (20 sources) Mood disorders; Translations: [Depression, unspecified depression type] Onset: 8 11-11-2023 Other acquired deformities (1 source) Incompetence of nasal valve; 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] 06-09-2024 Episodic Other and unspecified benign neoplasm (1 source) Benign neoplasm of sigmoid colon; Translations: [Benign neoplasm of sigmoid colon] Onset: 5 Episodic Other connective tissue disease (2 sources) Muscle pain; Translations: [Myalgia, unspecified site] 12-08-2023 Episodic Other connective tissue disease (1 source) Temporomandibular joint crepitus; Translations: [Other symptoms and signs involving the musculoskeletal system] 01-18-2024 Episodic Other connective tissue disease (2 sources) Tendonitis of left shoulder; Translations: [Other enthesopathies, not elsewhere classified] 04-07-2024 Episodic Other connective tissue disease (2 sources) Other symptoms and signs involving the musculoskeletal system; Translations: [Other musculoskeletal symptoms referable to limbs] Onset: 5 04-07-2024 Episodic Other ear and sense organ disorders (1 source) Sensorineural hearing loss, bilateral; Translations: [Sensorineural hearing loss, bilateral] 12-08-2023 Chronic Other ear and sense organ disorders (1 source) Sensorineural hearing loss, bilateral; Translations: [Sensorineural hearing loss, bilateral] Onset: 4 Chronic Other ear and sense organ disorders (4 sources) Asymmetrical hearing loss; Translations: [Other specified hearing loss, bilateral] 12-22-2023 Chronic Other ear and sense organ disorders (11 sources) Sensorineural hearing loss, unilateral, left ear, [...] disorders of ear, bilateral] 12-08-2023 Episodic Other fractures (1 source) Closed fracture of one rib; Translations: [Fracture of one rib, left side, subsequent encounter for fracture with routine healing] 09-05-2024 Episodic Other gastrointestinal disorders (9 sources) Oropharyngeal dysphagia; Translations: [Dysphagia, oropharyngeal phase] 01-26-2024 Episodic Other gastrointestinal disorders (11 sources) Dysphagia; Translations: [Dysphagia, unspecified] 11-16-2023 Episodic Other gastrointestinal disorders (1 source) Diarrhea of presumed infectious origin; Translations: [Diarrhea, unspecified] 04-14-2024 Episodic Other gastrointestinal disorders (1 source) Oral phase dysphagia; Translations: [Dysphagia, oral phase] 09-29-2024 Episodic Other gastrointestinal disorders (2 sources) Constipation; Translations: [Constipation, unspecified] 10-03-2024 Episodic Other gastrointestinal disorders (1 source) Constipation, unspecified; Translations: [Constipation, unspecified] Onset: 5 Episodic Other gastrointestinal disorders (5 sources) Dysphagia, oropharyngeal phase; Translations: [Oropharyngeal dysphagia] Onset: 5 Episodic Other hereditary and degenerative nervous system conditions (3 sources) Edentulous orofacial dystonia; 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] 01-20-2024 Chronic Other infections; including parasitic (1 source) History of hepatitis C; Translations: [Personal history of other infectious and parasitic diseases] 04-14-2024 Episodic Other inflammatory condition of skin (2 sources) Seborrheic dermatitis of scalp; Translations: [Seborrhea capitis] 03-16-2024 Episodic Other inflammatory condition of skin (1 source) Seborrheic dermatitis; Translations: [Seborrheic dermatitis, unspecified] 06-13-2024 Episodic Other injuries and conditions due to external causes (2 sources) H/O: injury; Translations: [Personal history of other (healed) physical injury and trauma] 08-21-2024 Episodic Other injuries and conditions due to external causes (1 source) Injury of ribs Onset: 5 Episodic Other injuries and conditions due to external causes (1 source) Personal history of other (healed) physical injury and trauma; Translations: [Personal history of other (healed) physical injury and trauma] Onset: 5 Episodic Other nervous system disorders (1 source) Chronic pain syndrome; Translations: [Chronic pain syndrome] 11-03-2024 Chronic Other nervous system disorders (1 source) Chronic pain syndrome; Translations: [Chronic pain syndrome] Onset: 5 Chronic Other nervous system disorders (1 source) Other chronic pain; Translations: [Other chronic pain] Onset: 4 Chronic Other nervous system disorders (2 sources) Trigeminal nerve disorder; 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, unspecified] 06-14-2024 Episodic Other nervous system disorders (1 source) Clonic hemifacial spasm, bilateral; Translations: [Clonic hemifacial spasm affecting both sides of face] Onset: 5 Episodic Other screening for suspected conditions (not mental disorders or infectious disease) (20 sources) Encounter for screening for diabetes mellitus; Translations: [Diabetes Risk Test Score] Onset: 4 04-14-2024 Episodic Other skin disorders (1 source) Mucous membrane dryness 03-07-2024 Episodic Other skin disorders (5 sources) Finding of neck region; Translations: [Localized swelling, mass and lump, neck] 03-17-2024 Episodic Other skin disorders (1 source) Disorder of scalp 08-24-2024 Episodic Other upper respiratory disease (1 source) Bleeding from nose; Translations: [Epistaxis] 12-22-2023 Episodic Other upper respiratory disease (1 source) [...] 08-02-2024 Episodic Residual codes; unclassified (1 source) History of intravenous drug abuse; Translations: [Personal history of other specified conditions] 11-03-2024 Episodic Residual codes; unclassified (1 source) Pain Onset: 5 Episodic Schizophrenia and other psychotic disorders (20 sources) Delusional disorders; Translations: [Unspecified psychosis not due to a substance or known physiological condition] Onset: 2 Chronic Schizophrenia and other psychotic disorders (2 sources) Brief psychotic disorder; Translations: [Brief psychotic disorder] Onset: 2 Episodic Screening and history of mental health and substance abuse codes (3 sources) Ex-smoker; Translations: [Personal history of nicotine dependence] Onset: 5 07-14-2023 Episodic Spondylosis; intervertebral disc disorders; other back problems (20 sources) Prolapsed lumbar intervertebral disc; Translations: [Other intervertebral disc displacement, lumbar region] Onset: 3 09-29-2013 Chronic Sprains and strains (10 sources) Strain of neck muscle; Translations: [Strain of muscle, fascia and tendon at neck level, initial encounter] Onset: 5 09-22-2024 Episodic Substance-related disorders (20 sources) Stimulant dependence; Translations: [Other stimulant dependence, uncomplicated] Onset: 8 Resolved: 5 Chronic Unclassified (2 sources) Unknown / UNK(Unknown) Onset: 7 Unclassified (2 sources) PSYCHIATRIC EVAL 09-21-2022 Comment on above: PSYCHIATRIC EVAL Unclassified (1 source) Alcohol use, unspecified, uncomplicated; Translations: [Alcohol use, unspecified, uncomplicated] Onset: 4 Unclassified (1 source) Injury Onset: 5 Unclassified (4 sources) Autogenerated Problem Onset: 5 10-03-2024 Unclassified (1 source) Colon Cancer Screening Onset: 5 Unclassified (1 source) Earache Onset: 4 Unclassified (1 source) continued facial pain Onset: 4 Unclassified (1 source) Orofacial pain; Translations: [Orofacial pain] Onset: 5 Unclassified (1 source) Sinus Problem Onset: 5 Unclassified (1 source) Right facial pain; Translations: [Right facial pain] Onset: 4 Unclassified (1 source) Mouth Pain Onset: 5 Unclassified (1 source) Temporomandibular Join Pain Onset: 5 Unclassified (1 source) Dental Problem Onset: 4 Unclassified (1 source) Facial Pain Onset: 4 Unclassified (1 source) Emotional state finding Onset: 4 Unclassified (1 source) Dry Mouth Onset: 4 Past or Other Problems Problem Classification Problem Date Documented Da te Episodic/Chronic Diseases of mouth; excluding dental (20 sources) Dry mouth, unspecified; Translations: [Mucous membrane dryness] Onset: 4 12-22-2023 Episodic Hepatitis (20 sources) Viral hepatitis C; Translations: [Unspecified viral hepatitis C without hepatic coma] Onset: 3 09-25-2013 Episodic Immunizations and screening for infectious disease (16 sources) Encounter for screening for human immunodeficiency virus [HIV]; Translations: [Screening For Hiv] Onset: 4 Episodic Joint disorders and dislocations; trauma-related (20 sources) Dislocation of temporomandibular joint; Translations: [Dislocation of jaw, unspecified side, subsequent encounter] Onset: 4 12-08-2023 Episodic Malaise and fatigue (20 sources) Fatigue; Translations: [Other fatigue] Onset: 4 09-25-2013 Episodic Mycoses (20 sources) Onychomycosis of toenails; Translations: [Dermatophytosis of nail] Onset: 4 03-06-2024 Episodic Other acquired deformities (20 sources) Spondylolisthesis, grade 1; Translations: [Spondylolisthesis, site unspecified] Onset: 3 07-26-2013 Episodic Other aftercare (9 sources) Medication monitoring; Translations: [Encounter for therapeutic drug monitoring] Onset: 4 Episodic Other connective tissue disease (1 source) Myalgia, unspecified site; Translations: [Muscular pain] Onset: 4 Episodic Other ear and sense organ disorders (3 sources) Otalgia, bilateral; Translations: [Otalgia, bilateral] Onset: 3 Episodic Other ear and sense organ disorders (20 sources) Otogenic otalgia of right ear; Translations: [Otalgia, right ear] Onset: 4 04-27-2023 Episodic Other ear and sense organ disorders (2 sources) Bilateral earache; Translations: [Otalgia, bilateral] 12-08-2023 Episodic Other ear and sense organ [...] of ear, bilateral] Onset: 4 Episodic Other ear and sense organ disorders (1 source) Ear problem Onset: 4 Episodic Other eye disorders (2 sources) Dry eye syndrome of bilateral lacrimal glands; Translations: [Dry eye syndrome of bilateral lacrimal glands] Onset: 4 Episodic Other gastrointestinal disorders (3 sources) Dysphagia, unspecified; Translations: [Dysphagia, unspecified] Onset: 4 Episodic Other gastrointestinal disorders (1 source) Diarrhea, unspecified; Translations: [Diarrhea of presumed infectious origin] Onset: 5 Episodic Other infections; including parasitic (1 source) Personal history of other infectious and parasitic diseases; Translations: [History of hepatitis C] Onset: 5 Episodic Other inflammatory condition of skin (1 source) Seborrhea capitis; Translations: [Seborrhea capitis] Onset: 5 Episodic Other injuries and conditions due to external causes (3 sources) Injury of head; Translations: [Head Injury] Onset: 3 Episodic Other injuries and conditions due to external causes (1 source) Unspecified injury of head, initial encounter; Translations: [Unspecified injury of head, initial encounter] Onset: 5 Episodic Other nervous system disorders (13 sources) Atypical facial pain; Translations: [Atypical facial pain] Onset: 5 12-10-2023 Episodic Other nervous system disorders (6 sources) Glossopharyngeal neuralgia; 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] Onset: 5 06-09-2024 Episodic Other nervous system disorders (3 sources) Trigeminal neuralgia; Translations: [Trigeminal neuralgia] Onset: 5 06-09-2024 Episodic Other nervous system disorders (3 sources) Orofacial neuropathic pain; Translations: [Trigeminal neuralgia] Onset: 5 11-02-2024 Episodic Other nervous system disorders (1 source) Atypical facial pain; Translations: [Atypical facial pain] Onset: Episodic Other nervous system disorders (1 source) Other acute postprocedural pain; Translations: [Post-operative pain] Onset: 5 Episodic Other non-traumatic joint disorders (6 sources) Pain in left shoulder; Translations: [Pain in joint, shoulder region] Onset: 5 04-03-2024 Episodic Other nutritional; endocrine; and metabolic disorders (20 sources) Weight loss; Translations: [Abnormal weight loss] Onset: 4 03-03-2021 Episodic Other nutritional; endocrine; and metabolic disorders (20 sources) Weight decreased; Translations: [Abnormal weight loss] Onset: 4 Resolved: 5 03-03-2021 Episodic Other skin disorders (3 sources) Localized swelling, mass and lump, neck; Translations: [Localized swelling, mass or lump of neck] Onset: 5 Episodic Other skin disorders (1 source) Follicular disorder, unspecified; Translations: [Follicular disorder, unspecified] Onset: 4 Episodic Other skin disorders (1 source) Localized swelling, mass and lump, head; Translations: [Localized swelling, mass and lump, head] Onset: 4 Episodic Other upper respiratory disease (15 sources) Deviated nasal septum; Translations: [Deviated nasal septum] Onset: 4 12-22-2023 Episodic Other upper respiratory disease (2 sources) Nasal congestion; Translations: [Nasal congestion] 07-14-2023 Episodic Other upper respiratory disease (2 sources) Deviated nasal septum; Translations: [Deviated nasal septum] Onset: 4 Episodic Other upper respiratory disease (1 source) Epistaxis; Translations: [Epistaxis] Onset: 4 Episodic Other upper respiratory disease (1 source) Other diseases of pharynx; Translations: [Other diseases of pharynx] Onset: 4 Episodic Other upper respiratory infections (20 sources) Upper respiratory infection; Translations: [Acute upper respiratory infections of unspecified site] Onset: 4 08-12-2023 Episodic Otitis media and related conditions (18 sources) Acute left otitis media; Translations: [Unspecified otitis media] Onset: 4 Episodic Residual codes; unclassified (20 sources) Insomnia; Translations: [Insomnia, unspecified] Resolved: 5 07-26-2013 Episodic Residual codes; unclassified (9 sources) Body mass index (BMI) pediatric, 5th percentile to less than 85th percentile for age; Translations: [Assessment of Bmi Percentile = 5% To < 85% For Age Z68.52] Onset: 4 Episodic Residual codes; unclassified (2 sources) Alcoholism; Translations: [Alcohol use disorder] Onset: 4 08-12-2023 Episodic Residual codes; unclassified (9 sources) Other specified conditions influencing health status; Translations: [Alcohol use disorder] Onset: 4 08-12-2023 Episodic Residual codes; unclassified (1 source) Other specified postprocedural states; Translations: [Post-operative state] Onset: 5 Episodic Spondylosis; intervertebral disc disorders; other back problems (20 sources) Low back pain; Translations: [Lumbago] Onset: 3 07-26-2013 Episodic Substance-related disorders (18 sources) Other stimulant use, unspecified, uncomplicated; Translations: [Other stimulant use, unspecified with stimulant-induced psychotic disorder, unspecified] Onset: 4 Episodic Unclassified (1 source) HEPATITIS C Onset: 7 Unclassified (1 source) MULTPILE MEDICAL COMPLAINTS 09-21-2022 Comment on above: MULTPILE MEDICAL COM PLAINTS Unclassified (1 source) Alcohol use, unspecified, uncomplicated; Translations: [Alcohol use, unspecified, uncomplicated] Onset: 4 Unclassified (3 sources) Finding of neck region 04-24-2024 Unclassified (1 source) Acute pain of left shoulder 04-26-2024 Unclassified (5 sources) Onset: 5 09-22-2024 Urinary tract infections (16 sources) Urinary tract infectious disease; Translations: [Urinary tract infection, site not specified] Onset: 5 07-27-2024 Episodic Results Test Name Value Interpretation Reference Range Facility CBC panel Auto (Bld)on 11-30 Erythrocyte distribution width (RBC) [Ratio] 13.4 % Normal 11.5-15.0 [facility] Comment on above: Order Comment: Speci men Type: BLOOD SPECIMEN Ordering Facility: [facility] Address: [address] [place] [address] Performed By: #### 5 7021-8 #### [facility] CLIA [id number] [address] [place] [address] [place] Hematocrit (Bld) [Volume fraction] 50.0 % Normal 39.0-51.0 [facility] Comment on above: Order Comment: Speci men Type: BLOOD SPECIMEN Ordering Facility: [facility] Address: [address] [place] [address] Performed By: #### 5 7021-8 #### [facility] CLIA [id number] [address] [place] [address] [place] Hemoglobin (Bld) [Mass/Vol] 16.9 g/dL Normal 13.0-17.0 [facility] Comment on above: Order Comment: Speci men Type: BLOOD SPECIMEN Ordering Facility: [facility] Address: [address] [place] [address] Performed By: #### 5 7021-8 #### [facility] CLIA [id number] [address] [place] [address] [place] MCH (RBC) [Entitic mass] 32.6 pg Normal 26.0-34.0 [facility] Comment on above: Order Comment: Speci men Type: BLOOD SPECIMEN Ordering Facility: [facility] Address: [address] [place] [address] Performed By: #### 5 7021-8 #### [facility] CLIA [id number] [address] [place] [address] [place] MCHC (RBC) [Mass/Vol] 33.8 g/dL Normal 30.5-36.0 [facility] Comment on above: Order Comment: Speci men Type: BLOOD SPECIMEN Ordering Facility: [facility] Address: [address] [place] [address] Performed By: #### 5 7021-8 #### [facility] CLIA [id number] [address] [place] [address] [place] MCV (RBC) [Entitic vol] 96.3 fL Normal 80.0-100.0 [facility] Comment on above: Order Comment: Speci men Type: BLOOD SPECIMEN Ordering Facility: [facility] Address: [address] [place] [address] Performed By: #### 5 7021-8 #### [facility] CLIA [id number] [address] [place] [address] [place] Nucleated RBC (Bld) [#/Vol] 10*3/uL Normal <0.01 [facility] Comment on above: Order Comment: Speci men Type: BLOOD SPECIMEN Ordering Facility: [facility] Address: [address] [place] [address] Performed By: #### 5 7021-8 #### [facility] CLIA [id number] [address] [place] [address] [place] Platelet mean volume (Bld) [Entitic vol] 10.4 fL Normal 9.0-12.7 [facility] Comment on above: Order Comment: Speci men Type: BLOOD SPECIMEN Ordering Facility: [facility] Address: [address] [place] [address] Performed By: #### 5 7021-8 #### [facility] CLIA [id number] [address] [place] [address] [place] Platelets (Bld) [#/Vol] 154 10*3/uL Normal 150-400 [facility] Comment on above: Order Comment: Speci men Type: BLOOD SPECIMEN Ordering Facility: [facility] Address: [address] [place] [address] Performed By: #### 5 7021-8 #### [facility] CLIA [id number] [address] [place] [address] [place] RBC (Bld) [#/Vol] 5.19 10*6/uL Normal 4.20-6.00 [facility] Comment on above: Order Comment: Speci men Type: BLOOD SPECIMEN Ordering Facility: [facility] Address: [address] [place] [address] Performed By: #### 5 7021-8 #### [facility] CLIA [id number] [address] [place] [address] [place] WBC (Bld) [#/Vol] 5.76 10*3/uL Normal 3.70-11.00 [facility] Comment on above: Order Comment: Speci men Type: BLOOD SPECIMEN Ordering Facility: [facility] Address: [address] [place] [address] Performed By: #### 5 7021-8 #### [facility] CLIA [id number] [address] [place], [place] [id number] [place] Comprehensive metabolic 2000 panelon 11-30-2024 Albumin [Mass/Vol] 4.5 g/dL Normal 3.9-4.9 [facility] Comment on above: Order Comment: Speci men Type: BLOOD SPECIMEN Ordering Facility: [facility] Address: [address] [place] [address] Performed By: #### 2 4323-8 #### [facility] CLIA [id number] [address] [place], [place] [id number] [place] ALP [Catalytic activity/Vol] 84 U/L Normal 38-113 [facility] Comment on above: Order Comment: Speci men Type: BLOOD SPECIMEN Ordering Facility: [facility] Address: [address] [place] [address] Performed By: #### 2 4323-8 #### [facility] CLIA [id number] [address] [place] [address] [place] ALT [Catalytic activity/Vol] 30 U/L Normal 10-54 [facility] Comment on above: Order Comment: Speci men Type: BLOOD SPECIMEN Ordering Facility: [facility] Address: [address] [place] [address] Performed By: #### 2 4323-8 #### [facility] CLIA [id number] [address] [place] [address] [place] Anion gap [Moles/Vol] 13 mmol/L Normal 8-15 [facility] Comment on above: Order Comment: Speci men Type: BLOOD SPECIMEN Ordering Facility: [facility] Address: [address] [place] [address] Performed By: #### 2 4323-8 #### [facility] CLIA [id number] [address] [place] [address] [place] AST [Catalytic activity/Vol] 29 U/L Normal 14-40 [facility] Comment on above: Order Comment: Speci men Type: BLOOD SPECIMEN Ordering Facility: [facility] Address: [address] [place], [place] [id number] Performed By: #### 2 4323-8 #### [facility] CLIA [id number] [address] [place] [address] [place] Bilirubin [Mass/Vol] 0.4 mg/dL Normal 0.2-1.3 [facility] Comment on above: Order Comment: Speci men Type: BLOOD SPECIMEN Ordering Facility: [facility] Address: [address] [place] [address] Performed By: #### 2 4323-8 #### [facility] CLIA [id number] [address] [place], [place] [address] [place] Calcium [Mass/Vol] 10.3 mg/dL High 8.5-10.2 [facility] Comment on above: Order Comment: Speci men Type: BLOOD SPECIMEN Ordering Facility: [facility] Address: [address] [place], [place] [id number] Performed By: #### 2 4323-8 #### [facility] CLIA [id number] [address] [place], [place] [address] [place] Chloride [Moles/Vol] 102 mmol/L Normal 98-107 [facility] Comment on above: Order Comment: Speci men Type: BLOOD SPECIMEN Ordering Facility: [facility] Address: [address] [place], [place] [address] Performed By: #### 2 4323-8 #### [facility] CLIA [id number] [address] [place], [place] [address] [place] CO2 [Moles/Vol] 24 mmol/L Normal 22-30 [facility] Comment on above: Order Comment: Speci men Type: BLOOD SPECIMEN Ordering Facility: [facility] Address: [address] [place], [place] [id number] Performed By: #### 2 4323-8 #### [facility] CLIA [id number] [address] [place] [address] [place] Creatinine [Mass/Vol] 0.84 mg/dL Normal 0.73-1.22 [facility] Comment on above: Order Comment: Speci men Type: BLOOD SPECIMEN Ordering Facility: [facility] Address: [address] [place] [address] Performed By: #### 2 4323-8 #### [facility] CLIA [id number] [address] [place] [address] [place] eGFRcr SerPlBld CKD-EPI 2020 108 mL/min/1.73m??? Normal >=60 [facility] Comment on above: Order Comment: Suzy britt Type: BLOOD SPECIMEN Ordering Facility: [facility] Address: [address] [place] [address] Result Comment: Jessica mated Glomerular Filtration Rate [...] GFR. Performed By: #### 2 4323-8 #### [facility] CLIA [id number] [address] [place] [address] [place] Glucose [Mass/Vol] 84 mg/dL Normal 74-99 [facility] Comment on above: Order Comment: Suzy britt Type: BLOOD SPECIMEN Ordering Facility: [facility] Address: [address] [place] [address] Result Comment: The [place] [employer] Association (ADA) provides guidance for cutoff [...] Standards of Medical Care in Diabetes 2016, [place] [employer]. Diabetes Care. 2016.39(Suppl 1). Performed By: #### 2 4323-8 #### [facility] CLIA [id number] [address] [place] [address] [place] Potassium [Moles/Vol] 4.6 mmol/L Normal 3.7-5.1 [facility] Comment on above: Order Comment: Speci men Type: BLOOD SPECIMEN Ordering Facility: [facility] Address: [address] [place] [address] Performed By: #### 2 4323-8 #### [facility] CLIA [id number] [address] [place] [address] [place] Protein [Mass/Vol] 7.6 g/dL Normal 6.3-8.0 [facility] Comment on above: Order Comment: Speci men Type: BLOOD SPECIMEN Ordering Facility: [facility] Address: [address] [place] [address] Performed By: #### 2 4323-8 #### [facility] CLIA [id number] [address] [place] [address] [place] Sodium [Moles/Vol] 139 mmol/L Normal 136-144 [facility] Comment on above: Order Comment: Speci men Type: BLOOD SPECIMEN Ordering Facility: [facility] Address: [address] [place] [address] Performed By: #### 2 4323-8 #### [facility] CLIA [id number] [address] [place] [address] [place] Urea nitrogen [Mass/Vol] 13 mg/dL Normal 9-24 [facility] Comment on above: Order Comment: Speci men Type: BLOOD SPECIMEN Ordering Facility: [facility] Address: [address] [place] [address] Performed By: #### 2 4323-8 #### [facility] CLIA [id number] [address] [place] [address] [place] CNOVon 11-24-2024 CNOV Office Visit ([facility] ) ----- RAHEEM CODY ([id number]) 1975 M Date Time Provider Department 11/24/24 3:30 PM WRIGHTLUCYJUAN F [facility] During your visit today, we recorded the following information about you: Pulse Blood pressure Weight 93/minute 122/71 74.9 kg WrightJuan F hurd, 11/24/2024 6:14 PM Signed Headache and Facial Pain Section [facility]: Headache follow-up 11/24/2024 Interval History: Last visit Date and brief summary: 4 mo ago R Jaw pain and atypical facial pain and dysphagia increase in Lyrica to 100 mg TID for pain management post operatively Start cymbalta and tizanidine, PT TMJ and H/N Botox denied Referral to speech Continues to report severe burning pain - now involving the entire head, with the most intense pain localized to the skin overlying the gums and extending posteriorly to the ears worse on the left, as a burning type pain. The pain has progressively worsened over time and is now affecting the scalp and forehead. He describes the pain as deep and debilitating, stating, It's going to kill me if somebody doesn't figure out where it is. He also reports episodes of jaw being dislocated and causing his lips and tongue to twist when attempting to swallow. Raheem has been under the care of a neurologist at [facility], who has prescribed Lyrica 200 mg TID and a muscle relaxant - baclofen, which he reports has been helpful. He is also taking Suboxone, which he states has helped manage his pain to some extent, when he was in real crisis 6 weeks ago with SI. He has discontinued Zanaflex. Despite these medications, he continues to experience significant pain and discomfort and severe depression/anxiety. Denies current or active SI or self harm. He is currently undergoing speech therapy to address swallowing difficulties, which he attributes to a previous diagnosis of esophagitis - with some improvement in swallowing but he continues to experience a sensation of tissue tearing in his mouth and lips , with a recent episode of significant oral bleeding. Raheem also reports a history of oral thrush, which he believes is contributing to his symptoms. He describes a sensation of his tongue being stiff and his mouth feeling super tight. He has been seen by an ENT specialist and has undergone a rhinoplasty, which improved his nasal breathing but exacerbated his oral symptoms. He expresses frustration with the lack of a definitive diagnosis and effective treatment, stating, My whole head is necrotizing. He has been referred for a second consultation with an oral maxillofacial surgeon but has not yet been seen. He also reports a history of a possible spinal cord injury, leading to gait disturbances and episodes of numbness in his right leg and arm. Raheem reports significant psychological distress due to his chronic pain, including suicidal ideation. He is not currently under the care of a psychiatrist or psychologist but expresses a desire to seek psychiatric help. He denies active suicidal ideation at this time, stating that his current medication regimen is helping him manage his symptoms. Interval history dictated via Ambience AI: fully reviewed and edited by author DATA: Diagnostic tests reviewed for today's visit: 10/2024 seen Pain Mgmt at Pt here today c/o pain in jaw, face and neck area. Currently on suboxone, lyrica, cymbalta. No recent images no recent PT is doing speech therapy. Pt has difficult swallowing. Hx methamphetamines Patient has tried (03/24/24) Bilateral TMJ nerve block injection with 50% relief and (06/16/24) Bilateral TMJ injection with 30% relief. A/p -TMJ -referral to ENT 10/[address] [facility] [address] Bonilla oropharyngeal dysphagia and sensation of abnormal tongue movement. -no medical treatment for oropharyngeal dysphagia except for swallowing therapy with speech which he is already undergoing. For sensation of abnormal movement of his tongue, recommending a follow-up in neurology since his physical exam is otherwise normal. CT C spine and face C5-6 disc is mildly narrowed and there is mild endplate hypertrophy. Mild facet arthropathy is present diffusely. -Orbits: The bony orbits are intact. The orbital contents are unremarkable. Facial Bones: There is no displaced facial bone fracture.Mandible/Temporo mandibular Joints: Visualized portions of mandible and bilateral temporomandibular joints are intact. The patient is edentulous. 09/2024 MRI face Subtle asymmetric sclerosis and irregularity right maxillary alveolar process when compared to the left, which is nonspecific, possibly sequelae prior trauma or infection 05/2024 MRI Face and MRA and bMRI wwo -The paving contractor spaces are symmetric without evidence of atrophy or denervation injury. The maxilla and mandible are edentulous. The oral c (more content not included)... Normal [facility]20[facility] RAHEEM CODY ([id number]) 1975 M Date Time Provider Department 11/14/24 DIYA BONILLA HNQ During your visit today, we recorded the following information about you: Zakiya Peraza 11/14/2024 3:20 PM Signed Immunization update in scanned doc Allergies As of Date: 11/14/2024 Noted Allergy Reaction PENICILLINS 06/03/2007 10 - Anaphylaxis Date Reviewed: 10/31/2024 Reviewed by: Genesis John RN - Fully Assessed Prescriptions as of 11/14/2024 - omeprazole (PRILOSEC) 40 mg capsule Take 1 capsule by mouth once daily. - tiZANidine (ZANAFLEX) 4 mg tablet TAKE 1 TABLET BY MOUTH EVERY DAY NEEDED FOR FACIAL PAIN/JAW PAIN/MUSCLE PULLING - DULoxetine DR (CYMBALTA) 30 mg capsule TAKE 1 CAPSULE BY MOUTH ONCE DAILY FOR 7 DAYS, THEN TAKE 2 CAPSULE BY MOUTH ONCE DAILY - pregabalin (LYRICA) 75 mg capsule Take [...] to face. Problem List As Of Date 11/14/2024 Noted Resolved Anxiety state, unspecified [F41.1] Insomnia, [...] infection without hematuria [N39.*07/27/2024 Encounter Status:Closed by WADE GRULLON on 11/14/24 Normal [facility] ANES POSTPROC EVALon 025 ANES POSTPROC EVAL HNO ID: [id number] Author: CAMERON MCNALLY MD Service: ? Author Type: Anesthesiologist Type: Anesthesia Postprocedure Evaluation Filed: 10/31/2024 14:44 Note Text: POST ANESTHESIA EVALUATION NOTE : 1975 Procedure Summary Date: 10/31/24 Room / Location: Gastroenterology Anesthesia Start: 929 Anesthesia Stop: 946 Procedure: EGD DIAGNOSTIC Diagnosis: Dysphagia, unspecified type (Dysphagia) Scheduled Providers: David Vazquez MD; Cameron Mcnally MD; Bayron Durham APRN.HEAD TRANSFER CLERK Responsible Provider: Cameron Mcnally MD Anesthesia Type: general ASA Status: 3 Anesthesia Type: general Airway Type: supplemental O2 Last Vitals Vitals Value Taken Time BP 108/63 10/31/24 10:00 Temp 36 ?C (96.8 ?F) 10/31/24 09:48 Pulse 72 10/31/24 10:00 Resp 18 10/31/24 10:00 SpO2 97 % 10/31/24 10:00 Post Anesthesia Patient Status Patient Evaluation: PACU. PACU/ICU Patient Condition: stable. Anticipated Disposition: phase 2 then home. Neurological Status: aware and responsive. Pulmonary Status: breathing comfortably on room air Airway Control: returned to baseline unsupported. Cardiovascular Status: stable. Pain Management: clinically adequate Postoperative Hydration: acceptable. Intraoperative Events: no significant anesthesia events Post Operative Nausea/Vomiting Status: no significant post operative nausea or vomiting Recommendation: continue current plan of care. Anesthesia Observations No Documentation SIGNATURE: Cameron Mcnally MD PATIENT NAME: Raheem Crowley Cody DATE: October 31, 2024 TIME: 2:44 PM CSN: [id number] Normal [facility] ANES PRE-OPon 10-31-2024 ANES PRE-OP HNO ID: [id number] Author: CAMERON MCNALLY MD Service: ? Author Type: Anesthesiologist Type: Anesthesia Preprocedure Evaluation Filed: 10/31/2024 09:29 Note Text: ANESTHESIOLOGY DAY OF SURGERY NOTE : 1975 Procedure Information Date/Time: 10/31/24 0900 Scheduled providers: David Vazquez MD; Cameron Mcnally MD; Bayron Durham APRN.HEAD TRANSFER CLERK Procedure: EGD DIAGNOSTIC Location: Gastroenterology Estimated body mass index is 22.96 kg/m? as calculated from the following: Height as of this encounter: 177.8 cm (5' 10 ). Weight as of this encounter: 72.6 kg (160 lb). Most recent hematocrit and potassium results: Hematocrit 51.1 04/14/2024 Potassium 4.8 04/14/2024 Relevant Problems -RENAL (+) Hepatitis C I - PHYSICAL EVALUATION AIRWAY Patient intubated: No. Tracheostomy tube not present Mallampati: II. TM distance: >3 FB. Neck ROM: full ROM without neurological symptoms. Mouth opening: >3 FB. Short neck: no. Thick neck: no DENTAL Dental findings: edentulous. II - ANESTHESIA PLAN ASA Score: 3 Anesthetic Plan: general Airway type: supplemental O2 The patient is not a current smoker. NPO Status: adequate Monitoring Plan Monitoring plan: standard ASA. Informed Consent Anesthetic risks, benefits, alternatives, personnel and consent discussed: yes. Patient / Responsible Alliance Party agrees to proceed: yes Patient / Surrogate agrees to blood products: blood products not planned Potential Anesthesia issues that may suggest increased risk of complications or contraindication to planned procedure: none. Vitals Value Taken Time BP 112/67 10/31/24 09:09 Pulse 69 10/31/24 09:08 Resp 16 10/31/24 09:08 Temp 36 ?C (96.8 ?F) 10/31/24 09:08 SpO2 95 % 10/31/24 09:08 Vitals shown include unfiled device data. Outpatient Medications as of 10/31/2024 Medication Sig - tiZANidine (ZANAFLEX) 4 mg tablet TAKE 1 TABLET BY MOUTH EVERY DAY NEEDED FOR FACIAL PAIN/JAW PAIN/MUSCLE PULLING - DULoxetine DR (CYMBALTA) 30 mg capsule TAKE 1 CAPSULE BY MOUTH ONCE DAILY FOR 7 DAYS, THEN TAKE 2 CAPSULE BY MOUTH ONCE DAILY - pregabalin (LYRICA) 75 mg capsule Take [...] weekends off. Do not apply to face. (Patient not taking: Reported on 08/02/2024) Facility-Administered Medications as of 10/31/2024 Medication Dose Route Frequency - NaCl 0.9% iv infusion 30 mL/hr INTRAVENOUS CONTINUOUS I have interviewed and examined the patient. I have reviewed the medical record and/or the pre-anesthesia evaluation, pertinent labs, and test results. This contains updated information obtained within 48 hours of Surgery/Procedure. SIGNATURE: Cameron Mcnally MD PATIENT NAME: Raheem Cody DATE: October 31, 2024 TIME: 9:27 AM CSN: [id number] Normal [facility] EGD Study observation Narrat franco 10-31-2024 A31 Gastrointestinal Endoscopy Patient Name: Raheem Cody Procedure Date: 10/31/2024 9:21 AM Date of : 1975 Admit Type: Outpatient Age: 49 Room: A3 PROC 1 Gender: Male Note Status: Finalized Attending MD: David lFores MD, [id number] Procedure: Upper GI endoscopy Indications: Dysphagia Providers: David Flores MD, Cary Mortensen MD (Fellow) Patient Profile: This is a [...] PO daily. Procedure Code(s): --- Professional --- 89509, Esophagogastroduodenoscop y, flexible, transoral; with biopsy, single or multiple Diagnosis Code(s): --- Professional --- K21.00, Gastro-esophageal reflux disease with esophagitis, without bleeding R13.10, Dysphagia, unspecified CPT copyright 2020 [employer]. All rights reserved. The codes documented in this report are preliminary and upon information technology director review may be revised to meet current compliance requirements. Attending Participation: I was present and participated during the entire procedure, including non-mendieta portions. Scope In: 9:35:36 AM Scope Out: 9:42:17 AM MD David Camarillo MD 10/31/2024 9:42:11 AM This report has been signed electronically by David Flores MD Number of Addenda: 0 Note Initiated On: 10/31/2024 9:21 AM PROVATION [facility] Radiology Study observation (narrative) [facility] HISTORY PHYSICALon HISTORY PHYSICAL HNO ID: [id number] Author: CARY MORTENSEN DO Service: Gastroenterology Author Type: Fellow Type: H&P Filed: 10/31/2024 09:20 Note Text: PROCEDURAL SEDATION HISTORY AND PHYSICAL EXAM SERVICE DATE: 10/31/2024 SERVICE TIME: 919 Subjective HPI: This is a 49 year old male who presents with Dysphagia PAST ANESTHESIA HISTORY:No history of adverse event PAST MEDICAL HISTORY Diagnosis Date Amphetamine and other psychostimulant dependence, episodic (HCC) 06/03/2007 clean 09/11, again clean since 01/2013 Anxiety state, unspecified Arthritis Carpal tunnel syndrome, bilateral Chronic back pain Heart murmur child Hepatitis C Insomnia, unspecified IVDU (intravenous drug user) in past, last in 2009 Verruca vulgaris right hand PAST SURGICAL HISTORY Procedure Laterality Date ANES DX/THER NERVE BLOCK/INJECTION PRONE POS 2013 CRYOSURGERY right hand wart PAST SURGICAL HISTORY OF 1992 right hand fracture Prior to Admission medications as of 10/31/24 0905 Medication Sig Last Dose Taking tiZANidine (ZANAFLEX) 4 mg tablet TAKE 1 TABLET BY MOUTH EVERY DAY NEEDED FOR FACIAL PAIN/JAW PAIN/MUSCLE PULLING DULoxetine DR (CYMBALTA) 30 mg capsule TAKE 1 CAPSULE BY MOUTH ONCE DAILY FOR 7 DAYS, THEN TAKE 2 CAPSULE BY MOUTH ONCE DAILY pregabalin (LYRICA) 75 mg capsule Take 75 mg by mouth. cyanocobalamin, vitamin B-12, (B-12 COMPLIANCE INJECTION) by INJECTION(UNSPECIFIED PARENTERAL ROUTES) route once every month. clonazePAM (KLONOPIN) 1 mg tablet Take 1 mg by mouth two times a day as needed for anxiety. ubidecarenone Q-10 (CO Q-10) 10 mg cap Take 10 mg by mouth three times a day. triamcinolone acetonide (KENALOG) 0.1 % ointment Apply thin layer to affected areas twice daily M-. Take weekends off. Do not apply to face. Patient not taking: Reported on 08/02/2024 ALLERGIES Allergen Reactions Penicillins Anaphylaxis CARDIOVASCULAR:No chest pain, leg swelling and palpitations PULMONARY:No cough,wheezing and shortness of breath Objective PHYSICAL EXAM:The remainder of the physical exam is noncontributory AIRWAY: Mouth opening greater than 3 fingerbreadths: Yes Neck Full Range of Motion: Yes LUNGS: Good diaphragmatic excursion CARDIAC: ,Regular rate Assessment/Plan ASA Class: 2 Patient OK for Sedation: Yes Sedation Goal: Anesthesia Provisional Diagnosis/Treatment Plan: Dysphagia/ EGD Sedation Goal: Anesthesia SIGNATURE: Cary Mortensen DO PATIENT NAME: Raheem Crowley Cody DATE: October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 continue Botox can you please close this referral. Thanks, Maikel Hernandez 09/22/2024 1:29 PM Signed Hello Good Afternoon, If patient is not going to continue Botox can you please close this referral. Or let us know if there has been any Update on this ? Or how would you like to proceed Further Thanks, Maikel Hernandez 09/27/2024 8:24 AM Signed Hello, Can you please confirm whether the patient is going to continue botox or not and if yes is it under self pay? Thanks, Maikel Hernandez 10/03/2024 4:01 PM Signed Hello Good Afternoon, If patient is not going to continue botox should I go ahead and close the referral ? Thanks, Maikel Allergies As of Date: 08/23/2024 Noted Allergy Reaction PENICILLINS 06/03/2007 10 - Anaphylaxis Date Reviewed: 08/02/2024 Reviewed by: María Soares RN - Fully Assessed Reason for Visit: Insurance Authorization [[id number]] Cmt: Preferred Drug W/Botox Prescriptions as of 10/03/2024 - tiZANidine (ZANAFLEX) 4 mg tablet Take [...] spine without myelopath*05/30/2024 Neck pain [M54.2] 10/18/2023 (more content not included)... Normal [facility] [id number] 08-15-2024 [id number] HNO ID: [id number] Author: HE CALLE CCC-SLP Service: ? Author Type: Speech Language Pathologist Type: [id number] Filed: 08/15/2024 09:55 Note Text: [facility] Therapy Speech Therapy Plan of Care Certification Patient Name: Raheem Cody : 1975 CCF #: [id number] Date: 08/14/2024 To: Sanjana Encarnacion MD From Therapist: LUKE Zhang RE: Patient Certification/ Recertification Your review, approval and electronic signature are required in order to comply with Payor: [employer] / Plan: [facility] / Product Type: Medicaid / regulations. [...] Bite/Sip, Throat clear, reswallow, Reduced bite size JOB DEVELOPMENT SPECIALIST Recommendations: Outpatient Speech Therapy, Swallowing Precautions, Diet [...] have reviewed the treatment plan for Raheem Cody, CC# [id number] for the period of 08/14/24 -- 10/13/24, established on 08/14/2024. Signature certifies the need for therapy services. [facility] CT BRAIN WO CONTon CT BRAIN WO [...] Greenberg MD on 08/15/2024 1:08 PM Normal [facility] CNTHERAPYon 08-14-2024 CNTHERAPY OT/PT/Speech Visit (SPAVTC) ----- RAHEEM CODY ([id number]) 1975 M Date Time Provider Department 08/14/24 9:45 AM HE CALLEMOEddie Date Time Provider Department Center 08/14/2024 9:45 AM [id number][facility] for Visit: Speech Evaluation [1647] Patient Education [91] Primary Visit Diagnosis:Oropharyngeal dysphagia [R13.12] Other Visit Diagnoses:Jaw pain [R68.84] Atypical facial pain [G50.1] Allergies As of Date: 08/14/2024 Noted Allergy Reaction PENICILLINS 06/03/2007 10 - Anaphylaxis Date Reviewed: 08/02/2024 Reviewed by: María Soares, REDD - Fully Assessed Prescriptions as of 08/15/2024 [...] off. Do not apply to face. Normal [facility] CNPNon 08-08-2024 [facility] Telephone (NHMNS2) ----- RAHEEM CODY ([id number]) 1975 M Date Time Provider Department 08/08/24 [facility] During your visit today, we recorded [...] Encounter Status:Closed by MERLE SANCHEZ on 08/08/24 [facility] 08-02-2024 CNOV Office Visit (OTOLMN ) ----- RAHEEM CODY ([id number]) 1975 M Date Time Provider Department 08/02/24 8:30 AM JAMIE NUR During your visit today, we recorded the [...] Plastic AND Reconstructive Surgery [facility] [place], [facility] FOLLOW-UP VISIT CC: post-op IMPRESSION AND PLAN: Raheem Cody is a 49 year old male that is recovering well following nasal surgery. We discussed continued care for the nose with ointment and nasal saline spray. Return to clinic 3-4 months. Sooner if issues arise. Will continue to follow up with JOB DEVELOPMENT SPECIALIST and Neuro for jaw and facial pain related tissues (both appts already scheduled) Jamie Nur MD HISTORY: Raheem Cody is a 49 year old male who [...] exams: NA PROCEDURES: NA Referring Provider: DONAL HASY [[id number]] Allergies As of Date: 08/02/2024 Noted Allergy [...] FOLLOW UP VISIT RELATED TO ORIGINAL PX [80162] Encounter Status:Closed by JAMIE NUR on 08/02/24 [facility] 07-28-2024 CNPN Telephone (HNQ) ----- RAHEEM CODY ([id number]) 1975 M Date Time Provider Department 07/28/24 DONAL HAYS HNQ During your visit today, we recorded the following information about you: Lesley Abdullahi 07/28/2024 12:14 PM Signed Person Calling: Patient with [employer] Reason for Call: pt has an appt today at 1:45pm but [facility] is not able to take pt today until after 1:30pm. Pt Phone #: [phone] Pharmacy Name and # : Pt last seen: Visit date not found Lesley Abdullahi Allergies As of Date: 07/28/2024 Noted Allergy Reaction PENICILLINS 06/03/2007 10 - Anaphylaxis Date Reviewed: 07/20/2024 Reviewed by: Nakul Perez RN - Fully Assessed Prescriptions as of 07/28/2024 [...] nose every 2 hours while awake. - sulfamethoxazole-trimetho prim (BACTRIM DS) 800-160 mg per [...] Status:Closed by LESLEY ABDULLAHI on 07/28/24 Normal [facility] Acetylcholine Blocking Abon 07-24-2024 Acetylcholine Blocking Ab 0 % Normal 0-[address] [facility] Comment on above: Result Comment: INTE RPRETIVE [...] developed and its performance characteristics determined by [employer]. It has not been cleared or approved by the US Food and Drug Administration. This test was performed in a CLIA certified laboratory and is intended for clinical purposes. Performed By: [employer] [address] [place] [address] Header Boss: Vanesa Ricci MD, PhD CLIA Number: [id number] Acetylcholine Binding Abon 0 07-23-2024 Acetylcholine Binding Ab 0.0 nmol/L Normal 0.0-0.4 [facility] Comment on above: Result Comment: INTE RPRETIVE [...] developed and its performance characteristics determined by [employer]. It has not been cleared or approved by the US Food and Drug Administration. This test was performed in a CLIA certified laboratory and is intended for clinical purposes. Performed By: [employer] [address] [place] [address] Header Boss: Vanesa Ricci MD, PhD CLIA Number: [id number] Acetylcholine Modulating Abo n 07-23-2024 Acetylcholine Modulating Ab 0 % Normal <=45 [facility] Comment on above: Result Comment: INTE RPRETIVE [...] developed and its performance characteristics determined by [employer]. It has not been cleared or approved by the US Food and Drug Administration. This test was performed in a CLIA certified laboratory and is intended for clinical purposes. Performed By: [employer] [address] [place] [address] Header Boss: Vanesa Ricci MD, PhD CLIA Number: [id number] CNOVon 07-21-2024 [facility] Office Visit (NHMNS2 ) ----- RAHEEM CODY ([id number]) 1975 M Date Time Provider Department 07/21/24 10:45 AM JUAN F WRIGHT [facility]2 During your visit today, we recorded the following information about you: Sanjana Encarnacion MD 07/22/2024 11:47 AM Signed Headache and Facial Pain Section [place] [facility] [place] CC: Headache follow-up (impromptu drop in) Follow-up Visit Last visit Date: 06/2024 Raheem Cody is a 49 year old This is [...] - therapy/referrals: He requested a referral to [facility], but also stated he cannot see dentistry at [facility] due to insurance and [facility] is in with dentistry but will provide [...] septum s (more content not included)... Normal [facility] [place] 07-21-2024 CNPN Telephone (NHMNS2) ----- ESCOBARRAHEEM Crowley ([id number]) 1975 M Date Time Provider Department 07/21/24 [facility] During your visit today, we recorded the following information about you: Deann Cummings 07/21/2024 9:02 AM Signed Call received for DO rhett Holder 1975. Caller: Self Patient Identified by Name [...] as well. Last Office Visit: 06/29/2024 Last [facility] visit: Visit date not found Next scheduled appointment: 10/25/2024 Best number to reach caller: [phone] Best time to reach caller: any time Is it OK to leave a detailed voice message? Yes Deann Gudino Pss Allergies As of Date: 07/21/2024 Noted Allergy Reaction PENICILLINS 06/03/2007 10 - Anaphylaxis Date Reviewed: 07/20/2024 Reviewed by: Nakul Perez RN - Fully Assessed Reason for Visit: Patient [...] nausea/vomiting for up to 3 days. - sulfamethoxazole-trimetho prim (BACTRIM DS) 800-160 mg per [...] petrolatum 41 % topical ointment (AQUAPHOR) - sulfamethoxazole-trimetho prim 800-160 mg 1 tablet (BACTRIM DS) Problem [...] of tempo (more content not included)... Normal [facility] ANES POSTPROC EVALon -15-2 025 ANES POSTPROC EVAL HNO ID: [id number] Author: YOLA QUINTANA MD Service: ? Author Type: Anesthesiologist Type: Anesthesia Postprocedure Evaluation Filed: 07/20/2024 15:38 Note Text: POST ANESTHESIA EVALUATION NOTE : 1975 Procedure Summary Date: 07/20/24 Room / Location: [address] Anesthesia Start: 1255 Anesthesia Stop: 1521 Procedures: REPAIR NASAL VESTIBULAR STENOSIS (Bilateral: Nose) [...] SIGNATURE: Yola Xavier MD PATIENT NAME: Raheem Cody DATE: July 20, 2024 TIME: 3:37 PM CSN: [id number] Normal [facility] ANES PRE-OPon 07-20-2024 ANES PRE-OP HNO ID: [id number] Author: YOLA QUINTANA MD Service: ? Author Type: Anesthesiologist Type: Anesthesia Preprocedure Evaluation Filed: 07/20/2024 13:01 Note Text: ANESTHESIOLOGY DAY OF SURGERY NOTE : 1975 Procedure Information Anesthesia Start Date/Time: 07/20/24 1255 Procedures: REPAIR NASAL VESTIBULAR STENOSIS (Bilateral: Nose) SEPTOPLASTY (Nose) RESECTION SUBMUCOSAL TURBINATES (Bilateral: Nose) Location: MAIN [address] MAIN [facility] Surgeons: Donal Hays MD Estimated body mass [...] no. Thick neck: no Moreno present: no Microretrognathia/Microna gthia/Recessed Chin: No DENTAL Dental findings: edentulous. Additional exam findings: no II - ANESTHESIA PLAN ASA Score: 3 Anesthetic Plan: general Airway type: ETT NPO Status: adequate Beta Ketty Monitoring Plan Monitoring plan: standard ASA. Post Procedure Analgesic Plan Postoperative analgesic plan: parenteral or oral opioids. Informed Consent Anesthetic risks, benefits, alternatives, personnel and consent discussed: yes. Patient / Responsible Alliance Party agrees to proceed: yes Patient / [...] for nausea/vomiting for up to 3 days. sulfamethoxazole-trimetho prim (BACTRIM DS) 800-160 mg per [...] Yola Xavier MD PATIENT NAME: Raheem Crowley [place] DATE: July 20, 2024 TIME: 1:00 PM CSN: [id number] Normal [facility] NURSING PROGon 07-20-2024 NURSING PROG HNO ID: [id number] Author: EBONI SORIA RN Service: Nursing Author Type: Registered Nurse Type: Nursing Progress Note Filed: 07/20/2024 17:58 Note Text: Late entry 1615: Pt was having periods of apnea with drops in oxygen saturation to 82-84 %. Charge nurse to bedside Noxious stimulation given, patient would gasp and resume breathing only to go apneic again. [facility] Foreign Language Teacher/ Dr. Alexandrea Perez Staff anesthesia on the [...] discharged from pacu in stable condition. Normal [facility] OPERATIVE NOon 07-20-2024 OPERATIVE NO HNO ID: [id number] Author: DONAL HAYS MD Service: Otolaryngology Author Type: Physician Type: Operative Report Filed: 07/24/2024 13:57 Note Text: HNI OPERATIVE/PROCEDURE REPORT LOG ID: [id number] SURGERY/PROCEDURE DATE: 07/20/2024 INCISION/PROCEDURE START TIME: 1:23 PM INCISION CLOSE/PROCEDURE END TIME: 2:48 PM SURGEON(S)/PROCEDURALIST( S) AND CERTIFIED PROFESSIONAL CONTROLLER(S): Surgeons and Role: * Donal Hays MD - Primary * Jeffrey Matos MD - Fellow No Additional Staff [...] BY: Jeffrey Matos MD PATIENT NAME: Raheem Cody DATE: July 20, 2024 TIME: 3:02 PM AGE: [age] year old Normal [facility] [place] 07-11-2024 [facility] Telephone ([facility]) ----- RAHEEM CODY ([id number]) 1975 M Date Time Provider Department 07/11/24 BLUE MATHIAS [facility] During your visit today, we recorded the following information about you: Maikel Morrow 07/11/2024 5:08 AM Signed Merle Sanchez RN 07/11/2024 2:29 PM Signed Provider sent message Dannielle Naranjo 07/11/2024 4:37 PM Signed Patient called in to share that he would like to try the Dysport and requests it be sent to [facility] in [facility]. Merle Sanchez RN 07/12/2024 4:02 PM Signed Appeal letter sent for Botox. Mychart message to pt Yashira Melendez 07/13/2024 1:48 PM Signed Rec'd call from insurance. They were calling with an update. They received the appeal and they are reviewing, this can take up to 10 days to review and give a determination. Merle Sanchez RN 07/24/2024 4:34 PM Signed Message to pharm auth to check status Gerardo Rama 08/02/2024 10:49 AM Signed [facility] Good Morning , This is to inform you that the internal appeal has been denied, and we are now eligible to submit an external appeal through [employer]. Please note the following: Submission Deadline: The external appeal must be submitted to [employer] within 30 Calendar days of the written notification indicating that the internal appeal process has been exhausted. Contact Information: Phone: (Option 2) Email: [email or web address] Required Form: The [place] Medicaid MCE External Review Request Form must be completed and submitted. I have already attached this form to the patient?s file for your convenience. It can also be accessed at [email or web address]. Please advise us on how you would like to proceed. Thanks , Merle Coronel, REDD 08/08/2024 4:11 PM Signed See another referral placed for Botox Merle Sanchez RN 08/16/2024 11:57 AM Signed Noted new referral submitted to insurance 08/15/24 Gerardo Rama 08/21/2024 2:26 PM Signed [facility] Good Afternoon, I just wanted to kindly confirm that a new referral has been submitted with an updated diagnosis code, and the Botox request appears to have been submitted under this new referral. ( # [id number] ) Whenever convenient, could you please close the This referral ( # [id number] ) related to the initial request? Thank you so much for your help and support! Thanks, Merle Coronel RN 08/23/2024 10:07 AM Signed Date Received: 08/23/2024 Received by: Phone Emailed to: Molly Romano Email Sent (Date AND Time): 08/22/24 / 3:27 PM Reason for Review: Request has denied as records do not show tried and failed Beta Blockers, Yashira Melendez 09/04/2024 1:45 PM Signed Letter faxed to Dr. Hi [phone] Allergies As of Date: 07/11/2024 Noted Allergy Reaction PENICILLINS 06/03/2007 10 - Anaphylaxis Date Reviewed: 07/11/2024 Reviewed by: Chari Vela APRN.INSTRUCTOR TRAINER CANINE SERVICE - Fully Assessed Reason for Visit: Insurance Authorization [[id number]] Cmt: Preferred Drug W/Appeal Prescriptions as of 09/04/2024 - tiZANidine (ZANAFLEX) 4 mg tablet Take [...] (dislocation of temporomandibular joint) [S*03/22/2024 Letter Text Letter Text Encounter Status:Closed by MAIKEL MORROW on 07/11/[address] [facility] MODIFIED BARIUM SWALLOW W VIDEOon 07-10-2024 No evidence of aspir ation or penetration were noted. Please see separate speech pathology report for full discussion of findings and recommendations. [facility] RADIOLOGY EXAMINATION: MODIFIED BARIUM SWALLOW WAS PERFORMED IN CONJUNCTION WITH SPEECH PATHOLOGY SERVICES TECHNIQUE: Under fluoroscopic evaluation cineradiography/videoradi ography recordings were performed in conjunction with the speech-language pathologist (JOB DEVELOPMENT SPECIALIST). Various liquid, solid and/or semi-solid barium preparations [...] evidence of aspiration or penetration were noted. [facility] RADIOLOGY Sebastien Anderson MD - 07/10/2024 EXAMINATION: MODIFIED BARIUM SWALLOW WAS PERFORMED IN CONJUNCTION WITH SPEECH PATHOLOGY SERVICES TECHNIQUE: Under fluoroscopic evaluation cineradiography/videoradi ography recordings were performed in conjunction with the speech-language pathologist (JOB DEVELOPMENT SPECIALIST). Various liquid, solid and/or semi-solid barium preparations [...] discussion of findings and recommendations. [facility] MODIFIED BARIUM SWALLOW W VIDEO EXAMINATION: MODIFIED BARIUM SWALLOW WAS PERFORMED IN CONJUNCTION WITH SPEECH PATHOLOGY SERVICES TECHNIQUE: Under fluoroscopic evaluation cineradiography/videoradi ography recordings were performed in conjunction with the speech-language pathologist (JOB DEVELOPMENT SPECIALIST). Various liquid, solid and/or semi-solid barium preparations [...] Sebastien Anderson MD 07/10/24 Final result Normal [facility] Radiology Study observation (narrative) [facility] [place] MODIFIED BARIUM SWALLOW W VIDEOOrdered By: Sebastien Anderson on 07-10-2024 [facility] Work Phone: MR Brain WO and W contrast I Von 07-10-2024 1. No acute intracra nial abnormality. 2. Mild distribution supratentorial white matter lesions which are nonspecific and may represent migrainous change, prior insult, injury, drug/toxin reaction, or chronic small vessel ischemic changes. 3. Heterogeneous secretions within the left sphenoid sinus. Correlate for sinusitis. May represent chronic fungal colonization. [facility] RADIOLOGY EXAMINATION: MRI OF THE BRAIN [...] The soft tissues demonstrate no acute abnormality. [facility] RADIOLOGY Gregory Solis MD - 07/10/2024 [...] for sinusitis. May represent chronic fungal colonization. [facility] Radiology Study observation (narrative) [facility] MR Brain WO and W contrast I VOrdered By: Gregory Solis on 07-10-2024 [facility] Work Phone: MRI BRAIN W WO CONTRASTon [...] Gregory Solis MD 07/10/24 Final result Normal [facility] HISTORY PHYSICALon HISTORY PHYSICAL HNO ID: [id number] Author: DENIA OROSCO APRN.INSTRUCTOR TRAINER CANINE SERVICE Service: ? Author Type: Nurse Practitioner Type: H&P Filed: 07/06/2024 14:51 Note Text: [facility] HISTORY AND PHYSICAL EXAMINATION SERVICE DATE: 07/06/2024 SERVICE TIME: 1:46 PM PRIMARY CARE PHYSICIAN: Carrington Fritz MD, MD REASON FOR VISIT: Raheem Cody is a 49 year old male who [...] Moreno present: no Lip Bite Test: I Microretrognathia/Microna gthia/Recessed Chin: No DENTAL Dentures, upper: complete. Dentures, [...] have a large neck STOP-Bang Score: 1 [id number] Score: Age: <65 Sex: male CHF history: No Hypertension history: No Stroke/TIA/thromboembolis m history: No Vascular disease history: No Diabetes history: No [id number] Score: 0 ARISCAT Score: Age: <=50 Preoperative [...] fevers. Neuro: No history of TIA's, stroke, LITIGATION ATTORNEY ASSOCIATE tumor, impaired sensorium, hemiplegia, paraplegia or quadraplegia. No neurological symptoms or problems. Respiratory: Positive for Tobacco Use Former , Negative for No history of current cough or dyspnea, or pneumonia in the past 6 weeks. No history of respiratory/pulmonary symptoms or problems Cardiovascular: No history of HTN requiring medication, no history of angina, CHF, HI, cardiac surgery or stents. Denies rest pain, gangrene or revascularization/amputat ion for PVD. No history of cardiovascular symptoms or problems. GI: Positive for Hepatitis C treated, Negative for GERD, Abdominal pain, Dif (more content not included)... Normal [facility] Krishna 07-04-2024 [facility] Telephone (NHMNS2) ----- RAHEEM CODY ([id number]) 1975 M Date Time Provider Department 07/04/24 JUAN F WRIGHT NHMNS2 During your visit today, we recorded the following information about you: Laurel Leon RN 07/04/2024 12:19 PM Signed Botox referral sent to pharmacy for hemifacial spasm. Please schedule with Dr. Wright. REDD Olmos D'Cole 07/04/2024 3:53 PM Signed Left voicemail and MyChart message sent. Allergies As of Date: 07/04/2024 Noted Allergy Reaction PENICILLINS 06/03/2007 10 - Anaphylaxis Date Reviewed: 06/29/2024 Reviewed by: Dimas Mortensen MA - Fully Assessed Reason for Visit: [...] Encounter Status:Closed by LAUREL LEON on 07/04/24 Normal [facility] CNOVon 06-29-2024 CNOV Office Visit (NHMNS2 ) ----- RAHEEM CODY ([id number]) 1975 M Date Time Provider Department 06/29/24 8:00 AM JUAN F WRIGHT KYMNS2 During your visit today, we recorded the following information about you: Pulse Blood pressure Weight 82/minute 135/83 85.7 kg Blue Mathias MD 06/29/2024 9:58 AM Addendum Headache and Facial Pain Section [facility] [place] CC: Headache follow-up Follow-up Visit Last visit Date: 01/2024 Rossana Raheem Cody is a 48 year old year old [...] is unable to see dentistry here at [facility] due to insurance. He really feels [...] review the imaging he brought at radiology- [facility] the coming week. He had suggested carbamazepine [...] no cl (more content not included)... 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 Normal [facility] MR MRA HEAD WO CONTon 2024 MR [...] Zaman MD on 06/13/2024 6:04 AM Normal [facility] 05-30-2024 [facility] (SPCOMN) ----- RAHEEM CODY ([id number]) 1975 M Date Time Provider Department 05/30/24 GABE MARIN [facility] During your visit today, we recorded the following information about you: Allergies As of Date: 05/30/2024 Noted Allergy Reaction PENICILLINS 06/03/2007 10 - Anaphylaxis Date Reviewed: 05/29/2024 Reviewed by: Neisha Bucio OCCA - Fully Assessed Reason for Visit: Focuser - Other [9104] Prescriptions as of 05/30/2024 - b complex, [...] Encounter Status:Closed by AZEB TURNER on 05/30/24 [facility] CNOVon 05-29-2024 CNOV Office Visit (OTPREJ ) ----- RAHEEM CODY ([id number]) 1975 M Date Time Provider Department 05/29/24 2:15 PM DONAL HAYS OTPREJ During your visit today, we recorded the following information about you: Donal Hays MD 06/09/2024 4:22 PM Signed Section of Facial Plastic AND Reconstructive Surgery Head and Neck [place], [facility] NEW PATIENT CONSULTATION CC: nasal obstruction Referring Provider: No referring provider defined for this encounter. Phone: N/A Fax: My recommendations will be communicated to the referring provider via the electronic medical record or US mail. IMPRESSION AND PLAN: Raheem Cody is a 49 year old male with [...] Plastic and Reconstructive Surgery Head and Neck [place] [facility] 05/29/2024 HISTORY OF PRESENT ISSUE: Raheem Cody is a 49 year old male who [...] septum [J34.2] Order(s):SURGICAL REQUEST - ELECTIVE (10/2019) [[id number]] Order #: [id number]: 1 Prescriptions as of 06/09/2024 - b [...] 09/25/2013 Level of Service: OFFICE/OUTPATIENT ESTABLISHED MOD MDM 30 MIN [97908] Additional E/M codes: VISIT CPLX INHERENT EANDM ASSOC WITH MED * Letter Text Encounter Status:Closed by DONAL HAYS on 06/09/24 Normal [facility] MR FACE W WO CONTon 05-30-19 MR [...] are normal without evidence of expansion. The paving contractor spaces are symmetric without evidence of atrophy [...] Nieves Martinez on 05/29/2024 12:22 PM Normal [facility] CNOVon 05-22-2024 CN Office Visit ([facility] ) ----- RAHEEM CODY ([id number]) 1975 M Date Time Provider Department 05/22/24 4:00 PM GABE MARIN [facility] During your visit today, we recorded the following information about you: Weight Height 87.6 kg 1.778 m Gabe Marin, EDUCATIONAL PSYCHOLOGIST.INSTRUCTOR TRAINER CANINE SERVICE 05/22/2024 4:22 PM Signed Spine Care Path Neck Pain - Chronic (> 12 weeks) Follow Up Exam SUBJECTIVE HISTORY OF PRESENT ILLNESS: Raheem Cody is a 49 year old male who [...] some kind of infection while working in [place]. He states that he became ill in [place] and when he returned to [place] he was diagnosed with an infection . [...] symptoms are connected. 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 Normal [facility] CNPNon 05-22-2024 CNPN Telephone (PSYRMN) ----- RAHEEM CODY ([id number]) 1975 M Date Time Provider Department 05/22/24 POLY DOTY PSYRMN During your visit today, we recorded the following information about you: Janie Knutson 05/22/2024 4:48 PM Signed Request was received by the Behavioral Health Outpatient Access team, from Raheem Cody ( ) to schedule within the ADHD [...] they will be provided with resources within [facility]'s Tier 1 Quality [place]. -If the patient is a candidate to be scheduled, their initial appointment will be an in-person evaluation that will determine course of treatment, which may include individual visits, group visits, or a recommendation to seek care outside of [facility]. There is no guarantee that [...] Status:Closed by JANIE KNUTSON on 08/10/24 Normal [facility] MRI CERVICAL SPINE WO IVCONo n 05-19-2024 MRI CERVICAL SPINE WO IVCON * * *Final Report* * * DATE OF EXAM: May 19 2024 7:03PM MDM 0297 - MRI CERVICAL SPINE WO IVCON [...] vertebrae with counting from the craniocervical junction. Plastic Welder: JEFFREY Transcribe Date/Time: May 20 2024 9:22A Dictated by : BLUE MARI MD This examination was interpreted and the report reviewed and electronically signed by: BLUE MARI MD on May 20 2024 9:23AM EST [id number] [facility] CNCOon 05-15-2024 CNCO Letter Text Normal [facility] CNOVon 05-15-2024 CNOV Office Visit (ORTHCC ) ----- RAHEEM CODY ([id number]) 1975 M Date Time Provider Department 05/15/24 3:00 PM BRANDY ERICKSON [facility] During your visit today, we recorded [...] these instructions. Informed Consent Consent Obtained: Verbal [place] Protocol A moment to CARE was completed. [...] [M25.512] Order(s):Large Joint Arthro/Inj: L subacromial bursa [OLX206] Order #: [id number] [] lidocaine (PF) 10 mg/mL (1 %) [...] Status:Closed by BRANDY ERICKSON on 05/15/24 Normal [facility] ESTROGEN FRACTION BLon 05-15 ESTRADIOL 30.3 pg/mL Normal 10.0-42.0 [facility] Comment on above: Order Comment: Speci men Type: BLOOD SPECIMEN Ordering Facility: [facility] Address: [address], [place] [address] Result Comment: REFE RENCE INTERVAL: Estradiol by Health Center Manager For a complete set of all established reference intervals, refer to ltd.Dryad/Tests/Pub/5841183. This test was developed and its performance characteristics determined by [employer]. It has not been cleared or approved by the US Food and Drug Administration. This test was performed in a CLIA certified laboratory and is intended for clinical purposes. Performed By: #### E STGEN #### [employer] CLIA [id number] [address] [place] [address] ESTROGENS TOTAL 45.7 pg/mL Normal 19.0-69.0 [facility] Comment on above: Order Comment: Speci men Type: BLOOD SPECIMEN Ordering Facility: [facility] Address: [facility] [place] [address] Result Comment: Refe rence interval of estrogens (pg/mL) Estrone Estradiol Total Estrogens Early follicular <150.0 30.0-100.0 30.0-250.0 Late follicular 100.0-250.0 100.0-400.0 200.0-650.0 Luteal <200.0 50.0-150.0 50.0-350.0 Post-menopausal 3.0-32.0 2.0-21.0 5.0-52.0 REFERENCE INTERVAL: Estrogens Total Calculation For a complete set of all established reference intervals, refer to StarChase/Tests/Pub/2226055. Performed By: [facility] [facility] [address] [place] [address] Header Boss: Vanesa Ricci MD, PhD CLIA Number: [id number] Performed By: #### E STGEN #### [employer] CLIA [id number] [address] [place] [address] ESTRONE 15.4 pg/mL Normal 9.0-36.0 [facility] Comment on above: Order Comment: Speci men Type: BLOOD SPECIMEN Ordering Facility: [facility] Address: [facility] [place] [address] Result Comment: INTE RPRETIVE INFORMATION: Estrone by Health Center Manager For a complete set of all established reference intervals, refer to [employer]Chase/Tests/Pub/4253972. This test was developed and its performance characteristics determined by [employer]. It has not been cleared or approved by the US Food and Drug Administration. This test was performed in a CLIA certified laboratory and is intended for clinical purposes. Performed By: #### E STGEN #### [employer] CLIA [id number] [address] [place] [address] Estradiol [facility] E2 [Mass/Vol] 26 pg/mL Normal <38 [facility] Comment on above: Order Comment: Speci men Type: BLOOD SPECIMEN Ordering Facility: [facility] Address: [address], [place] [address] Result Comment: This test is not suitable for patients receiving treatment with the drug Fulvestrant (Faslodex). The drug causes an interference leading to falsely elevated estradiol results. Performed By: #### 2 243-4 #### [facility] CLIA [id number] [address] [place] [address] [place] Large Joint Arthro/Inj: L smith bacromial bursaon 05-15-2024 Adama Erickson PA-C 05/15/2024 [...] these instructions. Informed Consent Consent Obtained: Verbal [place] Protocol A moment to CARE was completed. [...] implant(s) inserted. SIGN OUT No specimen collected. [facility] Krishna 05-12-2024 [facility] Telephone (SPNMMN) ----- RAHEEM CODY ([id number]) 1975 M Date Time Provider Department 05/12/24 GABE MARIN RAINMN During your visit today, we recorded the following information about you: Azeb Turner RN 05/15/2024 8:29 AM Signed Neuro SPINE CARE COORDINATION QUICK NOTE Faxed requested documents to appeals department at [phone] Magnolia Jacques 05/17/2024 4:32 PM Signed Pt was advised by insurance to have provider call the provider line. Below is the number and also a auth code. Pt states that our finance dept was working on this too. Please advise P: [phone] Auth # [id number] Allergies As of Date: 05/12/2024 Noted Allergy Reaction PENICILLINS 06/03/2007 10 - Anaphylaxis Date Reviewed: 04/24/2024 Reviewed by: Cary Oseguera LPN - Fully Assessed Reason for Visit: Focuser - Other [2544] Prescriptions as of 05/18/2024 - b complex, [...] Encounter Status:Closed by AZEB TURNER on 05/12/24 [facility] MR Shoulder - left WO contra ston 04-26-2024 IMPRESSION: 1. Mild supraspinatus tendinitis with tiny partial articular sided tear of the distal anterior fibers 0.5 cm. 2. Minimal acromioclavicular and glenohumeral osteoarthropathy. Mild AC joint and acromial impingement. Degenerative glenoid labral tear. Plastic Welder: JEFFREY Transcribe Date/Time: Apr 26 2024 2:13P Dictated by : RODOLFO MCCOY MD This examination was interpreted and the report reviewed and electronically signed by: RODOLFO MCCOY MD on Apr 26 2024 2:20PM [facility] DIVISION OF RADIOLOGY * * *Final [...] replacing process. ROTATOR CUFF TENDONS: Subscapularis: Intact. Supraspinatus/infraspinat us: Tiny shallow articular surface tear of the [...] TISSUES: No abnormality. DIVISION OF RADIOLOGY Provider, [facility] - 04/26/2024 * * *Final Report* * * DATE OF EXAM: Apr 26 2024 12:59PM [facility] 0239 - MRI SHOULDER WO IVCON LT [...] replacing process. ROTATOR CUFF TENDONS: Subscapularis: Intact. Supraspinatus/infraspinat us: Tiny shallow articular surface tear of the [...] and acromial impingement. Degenerative glenoid labral tear. Plastic Welder: JEFFREY Transcribe Date/Time: Apr 26 2024 2:13P Dictated by : RODOLFO MCCOY MD This examination was interpreted and the report reviewed and electronically signed by: RODOLFO MCCOY MD on Apr 26 2024 2:20PM EST [facility] Radiology Study observation (narrative) [facility] MR Shoulder - left WO contra stOrdered By: Ccf Provider on 04-26-2024 [facility] MRI SHOULDER WO IVCON LTon [...] replacing process. ROTATOR CUFF TENDONS: Subscapularis: Intact. Supraspinatus/infraspinat us: Tiny shallow articular surface tear of the [...] and acromial impingement. Degenerative glenoid labral tear. Plastic Welder: JEFFREY Transcribe Date/Time: Apr 26 2024 2:13P Dictated by : RODOLFO MCCOY MD This examination was interpreted and the report reviewed and electronically signed by: RODOLFO MCCOY MD on Apr 26 2024 2:20PM EST [id number] Normal [facility] Krishna 04-25-2024 [facility] Tele[facility] ([facility]) ----- RAHEEM CODY ([id number]) 1975 M Date Time Provider Department 04/25/24 GABE MARIN [facility] During your visit today, we recorded the following information about you: Kristal Warren 04/25/2024 10:27 AM Signed [facility]abe [facility] APRN.INSTRUCTOR TRAINER CANINE SERVICE today requesting PT orders to be faxed to their office. Cleopatra states Raheem is already scheduled, they just need the order. F: [phone] P: [phone] Patient has been identified by name and birthdate. Duration of symptoms: N/A Person calling: Cleopatra Call patient at: at home [phone] (home) Was an appointment scheduled: No Closing statement: Results or non-symptom based questions: Thank you for calling [facility], your call will be returned within the next business day. Azeb Calderon, RN 04/25/2024 10:34 AM Signed Neuro SPINE CARE COORDINATION QUICK NOTE PT order faxed to [facility] Allergies As of Date: 04/25/2024 Noted Allergy Reaction PENICILLINS 06/03/2007 10 - Anaphylaxis Date Reviewed: 04/24/2024 Reviewed by: Cary Oseguera LPN - Fully Assessed Reason for [...] Encounter Status:Closed by AZEB TURNER on 04/25/24 [facility] Telephone (NIQ) ----- CODY,RAHEEM Crowley ([id number]) 1975 M Date Time Provider Department 04/25/24 GABE MARIN During your visit today, we recorded the following information about you: Senia Gray 04/25/2024 2:47 PM Signed Raheem Keo Cody is calling Gabe Marin APRN.INSTRUCTOR TRAINER CANINE SERVICE today to ask if there is anything that can be done to help with his swallowing issues. He feels it is related to his neck issues. He has to use extreme effort to swallow. No chief complaint on file. Patient has been identified by name and birthdate. Duration of symptoms: 10 months Person calling: self Call patient at: at home [phone] (home) Was an appointment scheduled: Yes: Date/Time: [id number] Closing statement: Symptom Call: Thank you for calling [facility], your call is very important. A nurse will call in approximately 2-4 hours during business hours. If this is an emergency, please contact 911. Azeb Young, RN 04/26/2024 8:12 AM Signed Neuro SPINE CARE COORDINATION QUICK NOTE Attempted to contact patient, left VM to call the office back. Phone number provided. Also sent [employer] message Allergies As of Date: 04/25/2024 Noted Allergy Reaction PENICILLINS 06/03/2007 10 - Anaphylaxis Date Reviewed: 04/24/2024 Reviewed by: Cary Oseguera LPN - Fully Assessed Prescriptions as [...] Encounter Status:Closed by AZEB TURNER on 04/26/24 [facility] CNKarl 04-24-2024 CNOV Office Visit ([facility] ) ----- RAHEEM CODY ([id number]) 1975 M Date Time Provider Department 04/24/24 2:00 PM GABE MARIN [facility] During your visit today, we recorded the following information about you: Weight Height 88 kg 1.778 m Gabe Marin APRN.INSTRUCTOR TRAINER CANINE SERVICE 04/24/2024 3:47 PM Signed Spine Care Path Neck Pain - Chronic (> 12 weeks) Initial Exam SUBJECTIVE HISTORY OF PRESENT ILLNESS: Raheem Cody is a 49 year old male who [...] some kind of infection while working in [place]. He states that he became ill in [place] and when he returned to [place] he was diagnosed with an infection . [...] symptoms are connected. 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 Normal [facility] XR CERVICAL 4V AP/LAT/OBLon 04-24-2024 XR CERVICAL [...] patient is edentulous. IMPRESSION: Mild cervical spondylosis. Plastic Welder: PSCB Transcribe Date/Time: Apr 25 2024 10:00A Dictated by : LYN PENA MD This examination was interpreted and the report reviewed and electronically signed by: LYN PENA MD on Apr 25 2024 10:01AM EST [id number] Normal [facility] CNOVon 04-21-2024 CNOV Office Visit (OTOLMN ) ----- CODY,RAHEEM Crowley ([id number]) 1975 M Date Time Provider Department 04/21/24 8:55 AM DIYA BONILLA OTALLYN During your visit today, we recorded the following information about you: Coral Barahona, RN 04/21/2024 8:30 AM Signed Tobacco Use: [...] nasal obstruction. History of Present Illness Raheem Crowley Cody is a 49 year old male present [...] patient's e (more content not included)... Normal [facility] TESTOS FR MALE ADULTon 04-19 Testosterone Free Male 120 pg/mL Normal 47-244 So [facility] Comment on above: Result Comment: INTE RPRETIVE [...] Children, or Individuals on Testosterone-Suppressing Hormone Therapy) ([employer]Commerce test code 8661409). For individuals on testosterone hormone therapy, refer to cisgender male reference intervals. No reference intervals have been established for males younger than 14 years or for cisgender females. For a complete set of all established reference intervals, refer to [employer].Dryad/Tests/Pub/7314103. Performed By: [employer] [address] [place] [address] Header Boss: Vanesa Ricci MD, PhD CLIA Number: [id number] Performed By: #### 1 [id number] #### [facility] [address] [place] [address] Orange Picker: Tomasz Easley MD CBCNDon 04-17-2024 Erythrocyte distribution width (RBC) [Ratio] 13.9 % Normal 11.5-14.5 [facility] Comment on above: Performed By: #### 1 80824, 396669, 043975, 150645, [id number] #### [facility] [address] [place] [address] Orange Picker: Tomasz Easley MD Hematocrit (Bld) [Volume fraction] 47.6 % Normal 41.0-52.0 [facility] Comment on above: Performed By: #### 1 45703, 329794, 766345, 861930, [id number] #### [facility] [address] [place] [address] Orange Picker: Tomasz Easley MD Hemoglobin (Bld) [Mass/Vol] 16.6 g/dL Normal 13.5-17.5 [facility] Comment on above: Performed By: #### 1 77122, 202831, 814359, 574994, 5092052 #### [facility] [address] [place] [address] Orange Picker: Tomasz Easley MD Instr WBC ND 5.8 Normal [facility] Comment on above: Performed By: #### 1 29444, 462558, 181623, 962629, [id number] #### [facility] [address] [place], [place] [id number] Orange Picker: Tomasz Easley MD MCH (RBC) [Entitic mass] 34.5 pg High 27.0-34.0 [facility] Comment on above: Performed By: #### 1 21291, 087930, 566779, 138067, 5306725 #### [facility] [address] [place] [address] Orange Picker: Tomasz Easley MD MCHC (RBC) [Mass/Vol] 34.8 g/dL Normal 32.0-37.0 [facility] Comment on above: Performed By: #### 1 93821, 857343, 667711, 413971, [id number] #### [facility] [address] [place] [address] Orange Picker: Tomasz Easley MD MCV (RBC) [Entitic vol] 99.2 fL Normal 80.0-100.0 [facility] Comment on above: Performed By: #### 1 86413, 222858, 995968, 673164, 5581478 #### [facility] [address] [place] [address] Orange Picker: Tomasz Easley MD Platelet 157 x10 Normal 150-450 [facility] Comment on above: Performed By: #### 1 40255, 770494, 210151, 030708, 2850908 #### [facility] [address] [place] [address] Orange Picker: Tomasz Easley MD Platelet mean volume (Bld) [Entitic vol] 7.3 fL Low 7.4-10.4 [facility] Comment on above: Performed By: #### 1 01241, 527320, 038939, 845728, 1846719 #### [facility] [address] [place] [address] Orange Picker: Tomasz Easley MD RBC 4.80 x10 Normal 4.70-6.10 [facility] Comment on above: Result Comment: Note : RBC morphology is normal unless otherwise stated. Evaluation performed only if differential is requested. Performed By: #### 1 83253, 004226, 490098, 627996, 7744219 #### [facility] [address] [place] [address] Orange Picker: Tomasz Easley MD WBC 5.8 x10 Normal 4.5-11.0 [facility] Comment on above: Performed By: #### 1 34623, 487470, 691409, 268649, 2692935 #### [facility] [address] [place] [address] Orange Picker: Tomasz Easley MD FSHon 04-17-2024 FSH 10.7 IU/L Normal [facility] Comment on above: Result Comment: Fema les: Normally menstruating Follicular Phase 2.5 ? 10.2 IU/L Mid-cycle Peak 3.4 ? 33.4 IU/L Luteal Phase 1.5 ? 9.1 IU/L <0.3 IU/L Post-Menopausal 23.0 ? 116.3 IU/L Males (13-70 years) 1.4 ? 18.1 IU/L Performed By: #### 1 03991, 190538, 475482, 551393, [id number] #### [facility] [address] [place] [phone] Orange Picker: Tomasz Easley MD LHon 04-17-2024 Luteinizing Hormone 6.5 IU/L Normal [facility] Comment on above: Result Comment: Fema [...] endogenous LH values Performed By: #### 1 [id number], [id number], [id number], [id number], [id number] #### [facility] [address] [place] [address] Orange Picker: Tomasz Easley MD PROLACTINon 04-17-2024 PROLACTIN 7.2 ng/mL Normal [facility] Comment on above: Result Comment: Fema les: Non 2.8-29.2 ng/mL 9.7- greater than 200 ng/mL Postmenopausal 1.8-20.3 ng/mL Males 2.1-17.7 ng/mL - , , and the administration of oral contraceptives can increase prolactin concentrations Performed By: #### 1 53114, [id number], 429989, [id number], [id number] #### [facility] [address] [place] [address] Orange Picker: Tomasz Easley MD TESTOS TOTon 04-17-2024 TESTOS TOT 928 ng/dL Normal 240-1000 [facility] Comment on above: Result Comment: -Bakari ples with biotin concentrations greater than 30 ng/ml will cause erroneus results -Samples with conjugated bilirubin concentrations > 15 mg/dL will cause erroneous results -Samples with unconjugated bilirubin concentrations > 20 mg/dL will cause erroneous results -Falsely elevated results may be seen in patients taking Nandrolone decanoate, 11?-hydroxytestosterone, and 11-ketotestosterone Performed By: #### 1 53399, [id number], [id number], [id number], [id number] #### [facility] [address] [place] [address] Orange Picker: Tomasz Easley MD CBC W Auto Differential pane l (Bld)on 04-14-2024 Basophils (Bld) [#/Vol] [facility] Basophils/100 WBC (Bld) 0.3 % [facility] Differential cell count method Nom (Bld) Auto [facility] Eosinophils (Bld) [#/Vol] 0.05 10*3/uL [facility] Eosinophils/100 WBC (Bld) 0.7 % [facility] Erythrocyte distribution width (RBC) [Ratio] 12.9 % 11.5 - 15.0 % [facility] Hematocrit (Bld) [Volume fraction] 51.1 % High 39.0 - 51.0 % [facility] Hemoglobin (Bld) [Mass/Vol] 17.6 g/dL High 13.0 - 17.0 g/dL [facility] Immature granulocytes (Bld) [#/Vol] [facility] Immature granulocytes/100 WBC (Bld) 0.1 % [facility] Interpretation and review of laboratory results Abnormal [facility] Lymphocytes (Bld) [#/Vol] 3.04 10*3/uL [facility] Lymphocytes/100 WBC (Bld) 45.1 % [facility] MCH (RBC) [Entitic mass] 33.5 pg 26.0 - 34.0 pg [facility] MCHC (RBC) [Mass/Vol] 34.4 g/dL 30.5 - 36.0 g/dL [facility] MCV (RBC) [Entitic vol] 97.1 fL 80.0 - 100.0 fL [facility] Monocytes (Bld) [#/Vol] 0.46 10*3/uL NINF [facility] Monocytes/100 WBC (Bld) 6.8 % [facility] Neutrophils (Bld) [#/Vol] 3.16 10*3/uL [facility] Neutrophils/100 WBC (Bld) 47.0 % [facility] Nucleated RBC (Bld) [#/Vol] NINF [facility] Nucleated RBC/100 WBC (Bld) [Ratio] 0.0 % /100 WBC [facility] Platelet mean volume (Bld) [Entitic vol] 8.8 fL Low 9.0 - 12.7 fL [facility] Platelets (Bld) [#/Vol] 168 10*3/uL [facility] RBC (Bld) [#/Vol] 5.26 10*6/uL 4.20 - 6.0 0 m/uL [facility] WBC (Bld) [#/Vol] 6.74 10*3/uL [facility] Basophils (Bld) [#/Vol] 10*3/uL Normal <0.11 [facility] Comment on above: Order Comment: Speci men Type: BLOOD SPECIMEN Ordering Facility: [facility] Address: [address] [place] [address] Performed By: #### 5 7021-8 #### [facility] CLIA [id number] [address] [place] [address] [place] Basophils/100 WBC (Bld) 0.3 % Normal [facility] Comment on above: Order Comment: Speci men Type: BLOOD SPECIMEN Ordering Facility: [facility] Address: [address] [place] [address] Performed By: #### 5 7021-8 #### [facility] CLIA [id number] [address] [place] [address] [place] Differential cell count method Nom (Bld) Auto Normal [facility] Comment on above: Order Comment: Speci men Type: BLOOD SPECIMEN Ordering Facility: [facility] Address: [address] [place] [address] Performed By: #### 5 7021-8 #### [facility] CLIA [id number] [address] [place] [address] [place] Eosinophils (Bld) [#/Vol] 0.05 10*3/uL Normal <0.46 [facility] Comment on above: Order Comment: Speci men Type: BLOOD SPECIMEN Ordering Facility: [facility] Address: [address] [place] [address] Performed By: #### 5 7021-8 #### [facility] CLIA [id number] [address] [place] [address] [place] Eosinophils/100 WBC (Bld) 0.7 % Normal [facility] Comment on above: Order Comment: Speci men Type: BLOOD SPECIMEN Ordering Facility: [facility] Address: [address] [place] [address] Performed By: #### 5 7021-8 #### [facility] CLIA [id number] [address] [place] [address] [place] Erythrocyte distribution width (RBC) [Ratio] 12.9 % Normal 11.5-15.0 [facility] Comment on above: Order Comment: Speci men Type: BLOOD SPECIMEN Ordering Facility: [facility] Address: [address] [place] [address] Performed By: #### 5 7021-8 #### [facility] CLIA [id number] [address] [place] [address] [place] Hematocrit (Bld) [Volume fraction] 51.1 % High 39.0-51.0 [facility] Comment on above: Order Comment: Speci men Type: BLOOD SPECIMEN Ordering Facility: [facility] Address: [address] [place] [address] Performed By: #### 5 7021-8 #### [facility] CLIA [id number] [address] [place] [address] [place] Hemoglobin (Bld) [Mass/Vol] 17.6 g/dL High 13.0-17.0 [facility] Comment on above: Order Comment: Speci men Type: BLOOD SPECIMEN Ordering Facility: [facility] Address: [address] [place] [address] Performed By: #### 5 7021-8 #### [facility] CLIA [id number] [address] [place] [address] [place] Immature granulocytes (Bld) [#/Vol] 10*3/uL Normal <0.10 [facility] Comment on above: Order Comment: Speci men Type: BLOOD SPECIMEN Ordering Facility: [facility] Address: [address] [place] [address] Performed By: #### 5 7021-8 #### [facility] CLIA [id number] [address] [place] [address] [place] Immature granulocytes/100 WBC (Bld) 0.1 % Normal [facility] Comment on above: Order Comment: Speci men Type: BLOOD SPECIMEN Ordering Facility: [facility] Address: [address] [place] [address] Performed By: #### 5 7021-8 #### [facility] CLIA [id number] [address] [place] [address] [place] Lymphocytes (Bld) [#/Vol] 3.04 10*3/uL Normal 1.00-4.00 [facility] Comment on above: Order Comment: Speci men Type: BLOOD SPECIMEN Ordering Facility: [facility] Address: [address] [place] [address] Performed By: #### 5 7021-8 #### [facility] CLIA [id number] [address] [place] [address] [place] Lymphocytes/100 WBC (Bld) 45.1 % Normal [facility] Comment on above: Order Comment: Speci men Type: BLOOD SPECIMEN Ordering Facility: [facility] Address: [address] [place] [address] Performed By: #### 5 7021-8 #### [facility] CLIA [id number] [address] [place] [address] [place] MCH (RBC) [Entitic mass] 33.5 pg Normal 26.0-34.0 [facility] Comment on above: Order Comment: Speci men Type: BLOOD SPECIMEN Ordering Facility: [facility] Address: [address] [place] [address] Performed By: #### 5 7021-8 #### [facility] CLIA [id number] [address] [place] [address] [place] MCHC (RBC) [Mass/Vol] 34.4 g/dL Normal 30.5-36.0 [facility] Comment on above: Order Comment: Speci men Type: BLOOD SPECIMEN Ordering Facility: [facility] Address: [address] [place] [address] Performed By: #### 5 7021-8 #### [facility] CLIA [id number] [address] [place] [address] [place] MCV (RBC) [Entitic vol] 97.1 fL Normal 80.0-100.0 [facility] Comment on above: Order Comment: Speci men Type: BLOOD SPECIMEN Ordering Facility: [facility] Address: [address] [place] [address] Performed By: #### 5 7021-8 #### [facility] CLIA [id number] [address] [place] [address] [place] Monocytes (Bld) [#/Vol] 0.46 10*3/uL Normal <0.87 [facility] Comment on above: Order Comment: Speci men Type: BLOOD SPECIMEN Ordering Facility: [facility] Address: [address] [place] [address] Performed By: #### 5 7021-8 #### [facility] CLIA [id number] [address] [place] [address] [place] Monocytes/100 WBC (Bld) 6.8 % Normal [facility] Comment on above: Order Comment: Speci men Type: BLOOD SPECIMEN Ordering Facility: [facility] Address: [address] [place] [address] Performed By: #### 5 7021-8 #### [facility] CLIA [id number] [address] [place] [address] [place] Neutrophils (Bld) [#/Vol] 3.16 10*3/uL Normal 1.45-7.50 [facility] Comment on above: Order Comment: Speci men Type: BLOOD SPECIMEN Ordering Facility: [facility] Address: [address] [place] [address] Performed By: #### 5 7021-8 #### [facility] CLIA [id number] [address] [place] [address] [place] Neutrophils/100 WBC (Bld) 47.0 % Normal [facility] Comment on above: Order Comment: Speci men Type: BLOOD SPECIMEN Ordering Facility: [facility] Address: [address] [place] [address] Performed By: #### 5 7021-8 #### [facility] CLIA [id number] [address] [place] [address] [place] Nucleated RBC (Bld) [#/Vol] 10*3/uL Normal <0.01 [facility] Comment on above: Order Comment: Speci men Type: BLOOD SPECIMEN Ordering Facility: [facility] Address: [address] [place] [address] Performed By: #### 5 7021-8 #### [facility] CLIA [id number] [address] [place] [address] [place] Nucleated RBC/100 WBC (Bld) [Ratio] 0.0 /100 WBC Normal [facility] Comment on above: Order Comment: Speci men Type: BLOOD SPECIMEN Ordering Facility: [facility] Address: [address] [place] [address] Performed By: #### 5 7021-8 #### [facility] CLIA [id number] [address] [place] [address] [place] Platelet mean volume (Bld) [Entitic vol] 8.8 fL Low 9.0-12.7 [facility] Comment on above: Order Comment: Speci men Type: BLOOD SPECIMEN Ordering Facility: [facility] Address: [address] [place] [address] Performed By: #### 5 7021-8 #### [facility] CLIA [id number] [address] [place] [address] [place] Platelets (Bld) [#/Vol] 168 10*3/uL Normal 150-400 [facility] Comment on above: Order Comment: Speci men Type: BLOOD SPECIMEN Ordering Facility: [facility] Address: [address] [place] [address] Performed By: #### 5 7021-8 #### [facility] CLIA [id number] [address] [place] [address] [place] RBC (Bld) [#/Vol] 5.26 10*6/uL Normal 4.20-6.00 [facility] Comment on above: Order Comment: Speci men Type: BLOOD SPECIMEN Ordering Facility: [facility] Address: [address] [place] [address] Performed By: #### 5 7021-8 #### [facility] CLIA [id number] [address] [place] [address] [place] WBC (Bld) [#/Vol] 6.74 10*3/uL Normal 3.70-11.00 [facility] Comment on above: Order Comment: Speci men Type: BLOOD SPECIMEN Ordering Facility: [facility] Address: [address] [place] [address] Performed By: #### 5 7021-8 #### [facility] CLIA [id number] [address] [place] CNOVon 04-14-2024 CNOV Office Visit (INFDMN ) ----- RAHEEM CODY ([id number]) 1975 M Date Time Provider Department 04/14/24 9:30 AM JOSE R AQUINO INFN During your visit today, we recorded the following information about you: Temperature Pulse Respiration Blood pressure 98.6 degrees 76/minute 18/minute 141/85 Weight 84.4 kg Jose R Aquino MD 04/14/2024 4:10 PM Signed INFECTIOUS DISEASE CONSULT NOTE Date: April 14, 2024 Patient Name: Raheem Cody Patient is seen at the request of Dr Lyn Shipman PA-C for my opinion regarding e. coli oral culture. My final recommendations will be communicated back to the requesting physician by way of shared Medical Record and communication with consulting team. Jose R Aquino MD HPI: 49 yo M concern by pt of possible E. coli [id number]-[id number] was in [place] at time of an outbreak [place] -- felt ill afterwards. 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 ... END DATABASE COPY --------- REVIEW OF SYSTEMS: See HPI A complete [...] Tobacco Use (more content not included)... Normal [facility] Comprehensive metabolic 2000 panelon 04-14-2024 Albumin [Mass/Vol] 4.9 g/dL 3.9 - 4.9 g/dL [facility] ALP [Catalytic activity/Vol] 71 U/L 38 - 113 U/L [facility] ALT [Catalytic activity/Vol] 45 U/L 10 - 54 U/L [facility] Anion gap [Moles/Vol] 7 mmol/L Low 8 - 15 mmol/L [facility] AST [Catalytic activity/Vol] 36 U/L 14 - 40 U/L [facility] Bilirubin [Mass/Vol] 0.7 mg/dL 0.2 - 1 .3 mg/dL [facility] Calcium [Mass/Vol] 10.5 mg/dL High 8.5 - 10. 2 mg/dL [facility] Chloride [Moles/Vol] 103 mmol/L 98 - 10 7 mmol/L [facility] CO2 [Moles/Vol] 32 mmol/L High 22 - 30 mmol/L [facility] Creatinine [Mass/Vol] 1.09 mg/dL 0.73 - 1.22 mg/dL [facility] GFR/1.73 sq M.predicted among non-blacks MDRD (S/P/Bld) [Vol rate/Area] 84 mL/min/{1.73_m2} - PINF [facility] Comment on above: Estimated Glomerular [...] [Mass/Vol] 93 mg/dL 74 - 99 mg/dL [facility] Comment on above: The [place] Diabete s Association (ADA) provides guidance for [...] Standards of Medical Care in Diabetes 2016, [place] Diabetes Association. Diabetes Care. 2016.39(Suppl 1). Interpretation and review of laboratory results Abnormal [facility] Potassium [Moles/Vol] 4.8 mmol/L 3.7 - 5.1 mmol/L [facility] Protein [Mass/Vol] 8.2 g/dL High 6.3 - 8.0 g/dL [facility] Sodium [Moles/Vol] 142 mmol/L 136 - 144 mmol/L [facility] Urea nitrogen [Mass/Vol] 10 mg/dL 9 - 24 mg/dL [facility] Albumin [Mass/Vol] 4.9 g/dL Normal 3.9-4.9 [facility] Comment on above: Order Comment: Suzy britt Type: BLOOD SPECIMEN Ordering Facility: [facility] Address: [address] [place] [address] Performed By: #### 5 7021-8 #### [facility] CLIA [id number] [address] [place] [address] [place] ALP [Catalytic activity/Vol] 71 U/L Normal 38-113 [facility] Comment on above: Order Comment: Suzy britt Type: BLOOD SPECIMEN Ordering Facility: [facility] Address: [address] [place] [address] Performed By: #### 5 7021-8 #### [facility] CLIA [id number] [address] [place], [place] [address] [place] ALT [Catalytic activity/Vol] 45 U/L Normal 10-54 [facility] Comment on above: Order Comment: Speci men Type: BLOOD SPECIMEN Ordering Facility: [facility] Address: [address] [place] [address] Performed By: #### 5 7021-8 #### [facility] CLIA [id number] [address] [place] [address] [place] Anion gap [Moles/Vol] 7 mmol/L Low 8-15 [facility] Comment on above: Order Comment: Speci men Type: BLOOD SPECIMEN Ordering Facility: [facility] Address: [address] [place] [address] Performed By: #### 5 7021-8 #### [facility] CLIA [id number] [address] [place] [address] [place] AST [Catalytic activity/Vol] 36 U/L Normal 14-40 [facility] Comment on above: Order Comment: Speci men Type: BLOOD SPECIMEN Ordering Facility: [facility] Address: [address] [place] [address] Performed By: #### 5 7021-8 #### [facility] CLIA [id number] [address] [place] [address] [place] Bilirubin [Mass/Vol] 0.7 mg/dL Normal 0.2-1.3 [facility] Comment on above: Order Comment: Speci men Type: BLOOD SPECIMEN Ordering Facility: [facility] Address: [address] [place] [address] Performed By: #### 5 7021-8 #### [facility] CLIA [id number] [address] [place] [address] [place] Calcium [Mass/Vol] 10.5 mg/dL High 8.5-10.2 [facility] Comment on above: Order Comment: Speci men Type: BLOOD SPECIMEN Ordering Facility: [facility] Address: [address] [place] [address] Performed By: #### 5 7021-8 #### [facility] CLIA [id number] [address] [place] [address] [place] Chloride [Moles/Vol] 103 mmol/L Normal 98-107 [facility] Comment on above: Order Comment: Speci men Type: BLOOD SPECIMEN Ordering Facility: [facility] Address: [address] [place] [address] Performed By: #### 5 7021-8 #### [facility] CLIA [id number] [address] [place] [address] [place] CO2 [Moles/Vol] 32 mmol/L High 22-30 [facility] Comment on above: Order Comment: Speci men Type: BLOOD SPECIMEN Ordering Facility: [facility] Address: [address] [place] [address] Performed By: #### 5 7021-8 #### [facility] CLIA [id number] [address] [place] [address] [place] Creatinine [Mass/Vol] 1.09 mg/dL Normal 0.73-1.22 [facility] Comment on above: Order Comment: Speci men Type: BLOOD SPECIMEN Ordering Facility: [facility] Address: [address] [place] [address] Performed By: #### 5 7021-8 #### [facility] CLIA [id number] [address] [place] [address] [place] Creatinine and Glomerular filtration rate.predicted panel (S/P/Bld) 84 mL/min/1.73m??? Normal >=60 [facility] Comment on above: Order Comment: Speci men Type: BLOOD SPECIMEN Ordering Facility: [facility] Address: [address] [place] [address] Result Comment: Jessica mated Glomerular Filtration Rate [...] accurately reflect actual GFR. Performed By: #### 5 7021-8 #### [facility] CLIA [id number] [address] [place] [address] [place] Glucose [Mass/Vol] 93 mg/dL Normal 74-99 [facility] Comment on above: Order Comment: Suzy britt Type: BLOOD SPECIMEN Ordering Facility: [facility] Address: [address] [place] [address] Result Comment: The [place] Diabetes Association (ADA) provides guidance for cutoff [...] Standards of Medical Care in Diabetes 2016, [place] Diabetes Association. Diabetes Care. 2016.39(Suppl 1). Performed By: #### 5 7021-8 #### [facility] CLIA [id number] [address] [place] [address] [place] Potassium [Moles/Vol] 4.8 mmol/L Normal 3.7-5.1 [facility] Comment on above: Order Comment: Suzy britt Type: BLOOD SPECIMEN Ordering Facility: [facility] Address: [address] [place] [address] Performed By: #### 5 7021-8 #### [facility] CLIA [id number] [address] [place] [address] [place] Protein [Mass/Vol] 8.2 g/dL High 6.3-8.0 [facility] Comment on above: Order Comment: Speci men Type: BLOOD SPECIMEN Ordering Facility: [facility] Address: [address] [place] [address] Performed By: #### 5 7021-8 #### [facility] CLIA [id number] [address] [place] [address] [place] Sodium [Moles/Vol] 142 mmol/L Normal 136-144 [facility] Comment on above: Order Comment: Speci men Type: BLOOD SPECIMEN Ordering Facility: [facility] Address: [address] [place] [address] Performed By: #### 5 7021-8 #### [facility] CLIA [id number] [address] [place] [address] [place] Urea nitrogen [Mass/Vol] 10 mg/dL Normal 9-24 [facility] Comment on above: Order Comment: Speci men Type: BLOOD SPECIMEN Ordering Facility: [facility] Address: [address] [place] [address] Performed By: #### 5 7021-8 #### [facility] CLIA [id number] [address] [place] [address] [place] Gastrointestinal pathogens p garrick KATELYNN+probe (Stl)Ordered By: Renata Cooper on 04-14-2024 Adenovirus F 40/41 DNA Not detected Not Detecte d [facility] Astrovirus RNA Not detected Not Detected [facility] C. cayetanensis DNA KATELYNN+probe Ql (Unsp spec) Not detected Not Detected [facility] Campylobacter sp DNA.diarrheagenic KATELYNN+probe Ql (Stl) Not detected Not Detected [facility] Cryptosporidium sp DNA KATELYNN+probe Ql (Unsp spec) Not detected Not Detected [facility] E. coli O157:H7 DNA KATELYNN+probe Ql (Unsp spec) Not applicable Not detected [facility] E. coli stx1+stx2 genes KATELYNN+probe Ql (Stl) Not detected Not Detected [facility] E. histolytica DNA KATELYNN+probe Ql (Unsp spec) Not detected Not Detected [facility] Enteroaggregative E. coli (EAEC) DNA Not detected Not Detected [facility] Enteropathogenic E. coli (EPEC) DNA Not detected Not detected [facility] Enterotoxigenic E. coli (ETEC) DNA Not detected Not Detected [facility] G. lamblia DNA KATELYNN+probe Ql (Unsp spec) Not detected Not Detected [facility] Interpretation and review of laboratory results Normal [facility] Norovirus GI/GII RNA Not detected Not Detected [facility] Plesiomonas shigelloides DNA Not detected Not Detected [facility] Rotavirus A RNA Not detected Not Detected [facility] Salmonella sp DNA KATELYNN+probe Ql (Unsp spec) Not detected Not Detected [facility] Sapovirus (Genogroups I, II, IV, V) RNA Not detected Not Detected [facility] Shigella species+EIEC invasion plasmid antigen H ipaH gene KATELYNN+probe Ql (Stl) Not detected Not Detected [facility] V. cholerae DNA KATELYNN+probe Ql (Unsp spec) Not detected Not Detected [facility] Vibrio sp DNA KATELYNN+probe Nom (Unsp spec) Not detected Not Detected [facility] Yersinia sp DNA KATELYNN+probe Nom (Unsp spec) Not detected Not Detected [facility] Gastrointestinal pathogens p garrick KATELYNN+probe (Stl)on 04-14-2024 ADENOVIRUS F 40/41 DNA Not detected Normal Not Detecte d [facility] Comment on above: Order Comment: Lenorei balwinder Type: BLOOD SPECIMEN Ordering Facility: [facility] Address: [address] [place] [address] Performed By: #### 5 7021-8 #### [facility] CLIA [id number] [address] [place] [address] [place] ASTROVIRUS RNA Not detected Normal Not Detected [facility] Comment on above: Order Comment: Lenorei men Type: BLOOD SPECIMEN Ordering Facility: [facility] Address: [address] [place] [address] Performed By: #### 5 7021-8 #### [facility] CLIA [id number] [address] [place] [address] [place] C. cayetanensis DNA KATELYNN+probe Ql (Unsp spec) Not detected Normal Not Detected [facility] Comment on above: Order Comment: Speci men Type: BLOOD SPECIMEN Ordering Facility: [facility] Address: [address] [place] [address] Performed By: #### 5 7021-8 #### [facility] CLIA [id number] [address] [place] [address] [place] Campylobacter sp DNA.diarrheagenic KATELYNN+probe Ql (Stl) Not detected Normal Not Detected [facility] Comment on above: Order Comment: Speci men Type: BLOOD SPECIMEN Ordering Facility: [facility] Address: [address] [place] [address] Performed By: #### 5 7021-8 #### [facility] CLIA [id number] [address] [place] [address] [place] Cryptosporidium sp DNA KATELYNN+probe Ql (Unsp spec) Not detected Normal Not Detected [facility] Comment on above: Order Comment: Speci men Type: BLOOD SPECIMEN Ordering Facility: [facility] Address: [address] [place] [address] Performed By: #### 5 7021-8 #### [facility] CLIA [id number] [address] [place] [address] [place] E. coli O157:H7 DNA KATELYNN+probe Ql (Unsp spec) Not applicable Normal Not detected [facility] Comment on above: Order Comment: Speci men Type: BLOOD SPECIMEN Ordering Facility: [facility] Address: [address] [place] [address] Performed By: #### 5 7021-8 #### [facility] CLIA [id number] [address] [place] [address] [place] E. coli stx1+stx2 genes KATELYNN+probe Ql (Stl) Not detected Normal Not Detected [facility] Comment on above: Order Comment: Speci men Type: BLOOD SPECIMEN Ordering Facility: [facility] Address: [address] [place] [address] Performed By: #### 5 7021-8 #### [facility] CLIA [id number] [address] [place] [address] [place] E. histolytica DNA KATELYNN+probe Ql (Unsp spec) Not detected Normal Not Detected [facility] Comment on above: Order Comment: Speci men Type: BLOOD SPECIMEN Ordering Facility: [facility] Address: [address] [place] [address] Performed By: #### 5 7021-8 #### [facility] CLIA [id number] [address] [place] [address] [place] ENTEROAGGREGATIVE E. COLI (EAEC) DNA Not detected Normal Not Detected [facility] Comment on above: Order Comment: Speci men Type: BLOOD SPECIMEN Ordering Facility: [facility] Address: [address] [place] [address] Performed By: #### 5 7021-8 #### [facility] CLIA [id number] [address] [place] [address] [place] ENTEROPATHOGENIC E. COLI (EPEC) DNA Not detected Normal Not detected [facility] Comment on above: Order Comment: Speci men Type: BLOOD SPECIMEN Ordering Facility: [facility] Address: [address] [place] [address] Performed By: #### 5 7021-8 #### [facility] CLIA [id number] [address] [place] [address] [place] ENTEROTOXIGENIC E. COLI (ETEC) DNA Not detected Normal Not Detected [facility] Comment on above: Order Comment: Speci men Type: BLOOD SPECIMEN Ordering Facility: [facility] Address: [address] [place] [address] Performed By: #### 5 7021-8 #### [facility] CLIA [id number] [address] [place] [address] [place] G. lamblia DNA KATELYNN+probe Ql (Unsp spec) Not detected Normal Not Detected [facility] Comment on above: Order Comment: Speci men Type: BLOOD SPECIMEN Ordering Facility: [facility] Address: [address] [place] [address] Performed By: #### 5 7021-8 #### [facility] CLIA [id number] [address] [place] [address] [place] NOROVIRUS GI/GII RNA Not detected Normal Not Detected [facility] Comment on above: Order Comment: Speci men Type: BLOOD SPECIMEN Ordering Facility: [facility] Address: [address] [place] [address] Performed By: #### 5 7021-8 #### [facility] CLIA [id number] [address] [place] [address] [place] PLESIOMONAS SHIGELLOIDES DNA Not detected Normal Not Detected [facility] Comment on above: Order Comment: Speci men Type: BLOOD SPECIMEN Ordering Facility: [facility] Address: [address] [place] [address] Performed By: #### 5 7021-8 #### [facility] CLIA [id number] [address] [place] [address] [place] ROTAVIRUS A RNA Not detected Normal Not Detected [facility] Comment on above: Order Comment: Speci men Type: BLOOD SPECIMEN Ordering Facility: [facility] Address: [address] [place] [address] Performed By: #### 5 7021-8 #### [facility] CLIA [id number] [address] [place] [address] [place] Salmonella sp DNA KATELYNN+probe Ql (Unsp spec) Not detected Normal Not Detected [facility] Comment on above: Order Comment: Speci men Type: BLOOD SPECIMEN Ordering Facility: [facility] Address: [address] [place] [address] Performed By: #### 5 7021-8 #### [facility] CLIA [id number] [address] [place] [address] [place] SAPOVIRUS (GENOGROUPS I, II, IV, V) RNA Not detected Normal Not Detected [facility] Comment on above: Order Comment: Speci men Type: BLOOD SPECIMEN Ordering Facility: [facility] Address: [address] [place] [address] Performed By: #### 5 7021-8 #### [facility] CLIA [id number] [address] [place] [address] [place] Shigella species+EIEC invasion plasmid antigen H ipaH gene KATELYNN+probe Ql (Stl) Not detected Normal Not Detected [facility] Comment on above: Order Comment: Speci men Type: BLOOD SPECIMEN Ordering Facility: [facility] Address: [address] [place] [address] Performed By: #### 5 7021-8 #### [facility] CLIA [id number] [address] [place] [address] [place] V. cholerae DNA KATELYNN+probe Ql (Unsp spec) Not detected Normal Not Detected [facility] Comment on above: Order Comment: Speci men Type: BLOOD SPECIMEN Ordering Facility: [facility] Address: [address] [place] [address] Performed By: #### 5 7021-8 #### [facility] CLIA [id number] [address] [place] [address] [place] Vibrio sp DNA KATELYNN+probe Nom (Unsp spec) Not detected Normal Not Detected [facility] Comment on above: Order Comment: Speci men Type: BLOOD SPECIMEN Ordering Facility: [facility] Address: [address] [place] [address] Performed By: #### 5 7021-8 #### [facility] CLIA [id number] [address] [place] [address] [place] Yersinia sp DNA KATELYNN+probe Nom (Unsp spec) Not detected Normal Not Detected [facility] Comment on above: Order Comment: Speci men Type: BLOOD SPECIMEN Ordering Facility: [facility] Address: [address] [place] [address] Performed By: #### 5 7021-8 #### [facility] CLIA [id number] [address] [place] [address] [place] HIV 1+2 Ab IA Qlon 5 HIV 1 and 2 Ab IA.rapid Nom (S/P/Bld) [facility] Comment on above: Test not indicated. HIV 1+2 Ab+HIV1 p24 Ag IA Ql Non-Reactive Nonreactive [facility] HIV immunoassay testing algorithm interpretation (S/P/Bld) [Interp] [facility] Comment on above: No evidence of HIV-1 or HIV-2 infection. Should recent infection be suspected, repeat testing may be considered 2-3 weeks after this draw. [place] Rev. Code 3701.243(E): This information has been [...] release of HIV test results or diagnoses. [facility] HIV 1 and 2 Ab IA.rapid Nom (S/P/Bld) Normal [facility] Comment on above: Order Comment: Speci men Type: BLOOD SPECIMEN Ordering Facility: [facility] Address: [address] [place] [address] Result Comment: Test not indicated. Performed By: #### 5 7021-8 #### [facility] CLIA [id number] [address] [place] [address] [place] HIV 1+2 Ab+HIV1 p24 Ag IA Ql Non-Reactive Normal Nonreactive [facility] Comment on above: Order Comment: Speci men Type: BLOOD SPECIMEN Ordering Facility: [facility] Address: [address] [place] [address] Performed By: #### 5 7021-8 #### [facility] CLIA [id number] [address] [place] [address] [place] HIV immunoassay testing algorithm interpretation (S/P/Bld) [Interp] Normal [facility] Comment on above: Order Comment: Speci men Type: BLOOD SPECIMEN Ordering Facility: [facility] Address: [address] [place] [address] Result Comment: No e vidence of HIV-1 or HIV-2 infection. Should recent infection be suspected, repeat testing may be considered 2-3 weeks after this draw. [place] Rev. Code 3701.243(E): This information has been [...] test results or diagnoses. Performed By: #### 5 7021-8 #### [facility] CLIA [id number] [address] [place] [address] [place] IMMUNOGLOBULINS,IGG,IGA,IGMo n 04-14-2024 IgA [Mass/Vol] 338 mg/dL 70 - 400 mg/dL [facility] IgG [Mass/Vol] 1184 mg/dL 700 - 1600 mg/dL [facility] IgM [Mass/Vol] 73 mg/dL 40 - 230 mg/dL [facility] Interpretation and review of laboratory results Normal [facility] IgA [Mass/Vol] 338 mg/dL Normal 70-400 [facility] Comment on above: Order Comment: Speci men Type: BLOOD SPECIMENOrdering Facility: [facility] Address: [address] [place] [address] Performed By: #### S ERIMM ####[facility] [id number] [place] [address] [place] IgG [Mass/Vol] 1184 mg/dL Normal 700-1600 [facility] Comment on above: Order Comment: Speci men Type: BLOOD SPECIMENOrdering Facility: [facility] Address: [address] [place] [address] Performed By: #### S ERIMM ####[facility] [id number] [place] [address] [place] IgM [Mass/Vol] 73 mg/dL Normal 40-230 [facility] Comment on above: Order Comment: Speci men Type: BLOOD SPECIMENOrdering Facility: [facility] Address: [address] [place] [address] Performed By: #### S ERIMM ####[facility] [id number] [place] [address] [place] Immunodeficiency panel FC (B ld)on 04-14-2024 CD3 cells (Bld) [#/Vol] 2448 cells/uL High 958-2042 [facility] Comment on above: Order Comment: Speci men Type: BLOOD SPECIMEN Ordering Facility: [facility] Address: [address] [place] [address] Performed By: #### 4 5268-0 #### [facility] CLIA [id number] [address] [place] [address] [place] CD3 cells/100 cells (Bld) 81 % Normal 60-89 [facility] Comment on above: Order Comment: Speci men Type: BLOOD SPECIMEN Ordering Facility: [facility] Address: [address] [place] [address] Performed By: #### 4 5268-0 #### [facility] CLIA [id number] [address] [place] [address] [place] CD3+CD4+ (T4 helper) cells (Bld) [#/Vol] 1757 cells/uL High 533-9754 [facility] Comment on above: Order Comment: Speci men Type: BLOOD SPECIMEN Ordering Facility: [facility] Address: [address] [place] [address] Performed By: #### 4 5268-0 #### [facility] CLIA [id number] [address] [place] [address] [place] CD3+CD4+ (T4 helper) cells/100 cells (Bld) 58 % Normal 34-61 [facility] Comment on above: Order Comment: Speci men Type: BLOOD SPECIMEN Ordering Facility: [facility] Address: [address] [place] [address] Performed By: #### 4 5268-0 #### [facility] CLIA [id number] [address] [place] [address] [place] CD3+CD4+ (T4 helper) cells/CD3+CD8+ (T8 suppressor cells) cells (Bld) [# ratio] 2.59 % Normal 1.10-3.25 [facility] Comment on above: Order Comment: Speci men Type: BLOOD SPECIMEN Ordering Facility: [facility] Address: [address] [place] [address] Performed By: #### 4 5268-0 #### [facility] CLIA [id number] [address] [place] [address] [place] CD3+CD8+ (T8 suppressor cells) cells (Bld) [#/Vol] 677 cells/uL Normal 175-958 [facility] Comment on above: Order Comment: Speci men Type: BLOOD SPECIMEN Ordering Facility: [facility] Address: [address] [place] [address] Performed By: #### 4 5268-0 #### [facility] IA [id number] [address] [place] [address] [place] CD3+CD8+ (T8 suppressor cells) cells/100 cells (Bld) 22 % Normal 10-41 [facility] Comment on above: Order Comment: Speci men Type: BLOOD SPECIMEN Ordering Facility: [facility] Address: [address] [place] [address] Performed By: #### 4 5268-0 #### [facility] CLIA [id number] [address] [place] [address] [place] CD3-CD16+CD56+ (Natural killer) cells (Bld) [#/Vol] 301 cells/uL Normal 102-565 [facility] Comment on above: Order Comment: Speci men Type: BLOOD SPECIMEN Ordering Facility: [facility] Address: [address] [place] [address] Performed By: #### 4 5268-0 #### [facility] CLIA [id number] [address] [place] [address] [place] CD3-CD16+CD56+ (Natural killer) cells/100 cells (Bld) 10 % Normal 5-25 [facility] Comment on above: Order Comment: Speci men Type: BLOOD SPECIMEN Ordering Facility: [facility] Address: [address] [place] [address] Performed By: #### 4 5268-0 #### [facility] CLIA [id number] [address] [place] [address] [place] CD3-CD19+ cells (Bld) [#/Vol] 256 cells/uL Normal 75-660 [facility] Comment on above: Order Comment: Speci men Type: BLOOD SPECIMEN Ordering Facility: [facility] Address: [address] [place] [address] Performed By: #### 4 5268-0 #### [facility] CLIA [id number] [address] [place] [address] [place] CD3-CD19+ cells/100 cells (Bld) 8 % Normal 5-22 [facility] Comment on above: Order Comment: Speci men Type: BLOOD SPECIMEN Ordering Facility: [facility] Address: [address] [place] [address] Performed By: #### 4 5268-0 #### [facility] CLIA [id number] [address] [place] [address] [place] Reagin and Treponema pallidu m IgG and IgM [Interp]on 04-14-2024 T. pallidum IgG+IgM IA Ql (S) Non-Reactive Nonreactive [facility] T. pallidum IgG+IgM IA Ql (S) Non-Reactive Normal Nonreactive [facility] Comment on above: Order Comment: Speci men Type: BLOOD SPECIMEN Ordering Facility: [facility] Address: [address] [place] [address] Performed By: #### 5 7021-8 #### [facility] CLIA [id number] [address] [place] [address] [place] Reagin+T pallidum IgG+IgM Se rPl-Impon 04-14-2024 Reagin and Treponema pallidum IgG and IgM [Interp] Cannot exclude recent Treponemal infection if specimen collected within 7-10 days after appearance of suspect lesions or 2-3 weeks after an exposure. Clinical correlation is required. Normal [facility] Comment on above: Order Comment: Speci men Type: BLOOD SPECIMEN Ordering Facility: [facility] Address: [address] [place] [address] Performed By: #### 5 7021-8 #### [facility] CLIA [id number] [address] [place] [address] [place] SYPHILIS TREPONEMAL W/REFLEX on 04-14-2024 Reagin and Treponema pallidum IgG and IgM [Interp] Cannot exclude recent Treponemal infection if specimen collected within 7-10 days after appearance of suspect lesions or 2-3 weeks after an exposure. Clinical correlation is required. [facility] Krishna 04-11-2024 KARUNAN Telephone (OTOLLN) ----- RAHEEM CODY ([id number]) 1975 M Date Time Provider Department 04/11/24 [...] non-symptom based questions: Thank you for calling [facility], your call will be returned within the next business day. Nesha Godinez 04/11/2024 12:24 PM Signed called AND SPOKE WITH PATIENT, RESCHEDULED TO 04/[address] BONILLA AT [facility] Allergies As of Date: 04/11/2024 Noted Allergy Reaction PENICILLINS 06/03/2007 10 - Anaphylaxis Date Reviewed: 04/07/2024 Reviewed by: Clifford Vann OCCA - Fully Assessed Prescriptions as of [...] Encounter Status:Closed by SIN ARRIAGA on 08/09/24 [facility] CNOVon 04-07-2024 CNOV Office Visit (ORTHCC ) ----- RAHEEM CODY ([id number]) 1975 M Date Time Provider Department 04/07/24 2:15 PM BRANDY ERICKSON ORTH During your visit today, we recorded the following information about you: Brandy Erickson PA-C 04/07/2024 1:36 PM Signed DEPARTMENT OF ORTHOPAEDICS SUBJECTIVE Raheemchristine Cody is a 49 year old male Worker's Compensation and legal considerations: none Mr. Cody presents for an initial visit for left [...] on File Prior to Visit Medication Sig sulfamethoxazole-trimetho prim (BACTRIM DS) 800-160 mg per [...] positive cross-chest, negative Speed's, negative Yergason's, negative Oceana's test NEUROLOGICAL EXAM: Sensory: sensation intact to light touch Motor: 5/5 biceps, triceps, braille transcriber VASCULAR EXAM: radial AND brachial pulses 2+, [...] with patien (more content not included)... Normal [facility] XR SHLDR >/=3V AP/SHIV AP/OTH R LTon 04-07-2024 XR SHLDR >/=3V AP/SHIV AP/OTHR LT * * *Final Report* * * DATE OF EXAM: Apr 07 2024 1:05PM CHX [id number] - XR SHLDR >/=3V AP/SHIV AP/OTHR [...] osteoarthropathy. No acute finding or significant arthropathy. Plastic Welder: JEFFREY Transcribe Date/Time: Apr 08 2024 10:02A Dictated by : RODOLFO MCCOY MD This examination was interpreted and the report reviewed and electronically signed by: RODOLFO MCCOY MD on Apr 08 2024 10:04AM EST [id number] Normal [facility] Laboratoryon 04-06-2024 Diagnostic impression [employer] Sky (Unsp spec) [Interp] Comment [facility] Comment on above: Note: Positive HCV a ntibody screen without the presence of HCVRNA is consistent with a resolved past infection or a falsepositive HCV antibody. Consider repeat testing after onemonth. Laboratory - Chemistry and C hemistry - challengeon 04-06-2024 Albumin [Mass/Vol] 5.2 g/dL High (4.1-5.1 ) [facility] ALP [Catalytic activity/Vol] 74 U/L (44-121 ) [facility] ALT [Catalytic activity/Vol] 60 U/L High (0-44 ) [facility] AST [Catalytic activity/Vol] 39 U/L (0-40 ) [facility] Bilirubin [Mass/Vol] 0.7 mg/dL (0.0-1.2 ) [facility] Calcium [Mass/Vol] 10.1 mg/dL (8.7-10.2 ) [facility] Chloride [Moles/Vol] 97 mmol/L (96-106 ) [facility] CO2 [Moles/Vol] 23 mmol/L (20-29 ) [facility] Creatinine [Mass/Vol] 1.25 mg/dL (0.76-1.27 ) [facility] GFR/1.73 sq M.predicted among non-blacks MDRD (S/P/Bld) [Vol rate/Area] 71 mL/min/{1.73_m2} (>59 ) [facility] Globulin (S) [Mass/Vol] 2.8 g/dL (1.5-4.5 ) [facility] Glucose [Mass/Vol] 87 mg/dL (70-99 ) [facility] Potassium [Moles/Vol] 3.8 mmol/L (3.5-5.2 ) [facility] Protein [Mass/Vol] 8.0 g/dL (6.0-8.5 ) [facility] Sodium [Moles/Vol] 138 mmol/L (134-144 ) [facility] Urea nitrogen [Mass/Vol] 13 mg/dL (6-24 ) [facility] Urea nitrogen/Creatinine [Mass ratio] 10 mg/mg (9-20 ) [facility] Laboratory - Hematology and Cell countson 04-06-2024 Basophils (Bld) [#/Vol] 0.0 10*3/uL (0.0-0.2 ) [facility] Basophils/100 WBC (Bld) 0 % (Not Estab. ) [facility] Eosinophils (Bld) [#/Vol] 0.1 10*3/uL (0.0-0.4 ) [facility] Eosinophils/100 WBC (Bld) 2 % (Not Estab. ) [facility] Erythrocyte distribution width (RBC) [Ratio] 13.9 % (11.6-15.4 ) [facility] Hematocrit (Bld) [Volume fraction] 53.5 % High (37.5-51.0 ) [facility] Hemoglobin (Bld) [Mass/Vol] 17.8 g/dL High (13.0-17.7 ) [facility] Immature granulocytes (Bld) [#/Vol] 0.0 10*3/uL (0.0-0.1 ) [facility] Immature granulocytes/100 WBC (Bld) 0 % (Not Estab. ) [facility] Lymphocytes (Bld) [#/Vol] 2.7 10*3/uL (0.7-3.1 ) [facility] Lymphocytes/100 WBC (Bld) 39 % (Not Estab. ) [facility] MCH (RBC) [Entitic mass] 33.1 pg High (26.6-33.0 ) [facility] MCHC (RBC) [Mass/Vol] 33.3 g/dL (31.5-35.7 ) [facility] MCV (RBC) [Entitic vol] 99 fL High (79-97 ) [facility] Monocytes (Bld) [#/Vol] 0.5 10*3/uL (0.1-0.9 ) [facility] Monocytes/100 WBC (Bld) 7 % (Not Estab. ) [facility] Morphology Sky (Bld) [Interp] RAW STOCK MACHINE LOADER [facility] Neutrophils (Bld) [#/Vol] 3.6 10*3/uL (1.4-7.0 ) [facility] Neutrophils/100 WBC (Bld) 52 % (Not Estab. ) [facility] Nucleated RBC/100 WBC (Bld) [Ratio] RAW STOCK MACHINE LOADER [facility] Platelets (Bld) [#/Vol] 208 10*3/uL (150-450 ) [facility] RBC (Bld) [#/Vol] 5.38 10*6/uL (4.14-5.80 ) [facility] WBC (Bld) [#/Vol] 6.9 10*3/uL (3.4-10.8 ) [facility] Laboratory - Microbiology an d Antimicrobial susceptibilityon 04-06-2024 HCV Ab Signal/Cutoff IA [Rel units/Vol] Reactive Abnormal (Non Reactive ) [facility] HCV RNA KATELYNN+probe [Log units/Vol] RAW STOCK MACHINE LOADER [facility] HCV RNA KATELYNN+probe Qn Not detected He alth [facility] Laboratory - Miscellaneous t estson 04-06-2024 Reference Lab Test Reference Range Comment [facility] Comment on above: Note: .The quantitat kenneth range of this assay is 15 IU/mL to 100million IU/mL. No Panel Informationon 04-06 Immature Cells RAW STOCK MACHINE LOADER [facility] Reported Physicians See Note Jayson h [facility] Comment on above: Note: Reported Physi cians:Ordering: VANESA CROUCH Bacteria Wnd Culton 03-29-19 25 Bacteria identified [...] , Intermediate >=.5 , Resistant >=1 Abnormal [facility] Comment on above: Performed By: #### 5 7021-8 #### [facility] CLIA [id number] [address] [place] [address] [facility] CNOVon 03-29-2024 CNOV Office Visit (OTOLLN ) ----- RAHEEM CODY ([id number]) 1975 M Date Time Provider Department 03/29/24 1:00 PM LYN SHIPMAN During your visit today, we recorded the following information about you: Temperature 98.4 degrees Lyn Shipman PA-C 03/29/2024 2:52 PM Signed [facility] Head [facility] Neck [place] FOLLOW-UP CLINIC NOTE CC: Mr. 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 Normal [facility] CT Neck W contrast Joe 03-09 * * *Final Report* * * DATE OF EXAM: Mar 29 2024 9:52AM [facility] 0024 - CTA NECK W IVCON / [...] The visualized dural venous sinuses are patent. Yard Clerk (topogram) images: No significant findings. DIVISION OF RADIOLOGY Provider, [facility] - 03/29/2024 * * *Final Report* * * DATE OF EXAM: Mar 29 2024 9:52AM [facility] 0024 - CTA NECK W IVCON / [...] The visualized dural venous sinuses are patent. Yard Clerk (topogram) images: No significant findings. IMPRESSION IMPRESSION: [...] any questions regarding this interpretation, please call [phone]. If you are unable to reach us at the number above, please feel free to contact [facility] eRadiology at [phone]. [facility] CTA HEAD W IVCONon CTA HEAD W IVCON * * *Final Report* * * DATE OF EXAM: Mar 29 2024 9:52AM [facility] 0022 - CTA HEAD W IVCON / [...] The visualized dural venous sinuses are patent. Yard Clerk (topogram) images: No significant findings. IMPRESSION: No [...] any questions regarding this interpretation, please call [phone]. If you are unable to reach us at the number above, please feel free to contact [facility] eRadiology at [phone]. [id number] Normal [facility] CTA Head Arteries W contrast Joe 03-29-2024 * * *Final Report* * * DATE OF EXAM: Mar 29 2024 9:52AM [facility] 0022 - CTA HEAD W IVCON / [...] The visualized dural venous sinuses are patent. Yard Clerk (topogram) images: No significant findings. DIVISION OF RADIOLOGY Provider, [facility] - 03/29/2024 * * *Final Report* * * DATE OF EXAM: Mar 29 2024 9:52AM [facility] 0022 - CTA HEAD W IVCON / [...] The visualized dural venous sinuses are patent. Yard Clerk (topogram) images: No significant findings. IMPRESSION IMPRESSION: [...] any questions regarding this interpretation, please call [phone]. If you are unable to reach us at the number above, please feel free to contact [facility] eRadiology at [phone]. [facility] CTA NECK W IVCONon CTA NECK W IVCON * * *Final Report* * * DATE OF EXAM: Mar 29 2024 9:52AM [facility] 0024 - CTA NECK W IVCON / [...] The visualized dural venous sinuses are patent. Yard Clerk (topogram) images: No significant findings. IMPRESSION: No [...] any questions regarding this interpretation, please call [phone]. If you are unable to reach us at the number above, please feel free to contact [facility] eRadiology at [phone]. [id number] Normal [facility] Fungus Spec Culton Fungus identified Cx Nom (Unsp spec) CULTURE, FUNGAL: No Fungus isolated after 10 days Normal [facility] Comment on above: Performed By: #### 5 80-1 ####[facility] [id number] [address] No Panel Informationon 03-29 IMPRESSION: No evidence [...] any questions regarding this interpretation, please call [phone]. If you are unable to reach us at the number above, please feel free to contact [facility] eRadiology at [phone]. DIVISION OF RADIOLOGY Radiology Study observation (narrative) [facility] No Panel InformationOrdered By: Ccf Provider on 03-29-2024 [facility] [id number] 01-30-2024 [id number] HNO ID: [id number] Author: TIEN HEREDIA PT Service: ? Author Type: Physical Therapist Type: [id number] Filed: 01/30/2024 18:45 Note Text: [facility] Rehabilitation and Sports Therapy Physical Therapy Plan of Care Certification Patient Name: Raheem Cody : 1975 [facility] #: [id number] Date: 01/28/2024 To: Ricardo Kory M, APR* From Therapist: Tien Heredia PT RE: Patient Certification/ Recertification Your review, approval and electronic signature are required in order to comply with Payor: [employer]cha / Plan: [employer] [facility] / Product Type: Medicaid / regulations. The identified Physical Therapy PLAN OF CARE for the patient is as follows: M26.609 TMJ dysfunction (primary encounter diagnosis) R51.9 Face pain G44.021 Intractable chronic cluster headache PLAN OF CARE: Assessment: Raheem Cody presents with chief complaint of fascial pain [...] Goals for Episode of Care: established 01/28/24 Centre in home exercise program. Patient will decrease [...] Planned: 5 Planned Treatment Interventions: Therapeutic exercise (73373), Neuromuscular re-education (20871), Therapeutic activities (60280), Manual therapy (81666), Self-halfway management (66459), Aquatic PT (42289), Patient/Family/Caregiver Education, Body Mechanics Training, Functional training [...] have reviewed the treatment plan for Raheem Cody, [facility]# [id number] for the period of 01/28/24 -- 04/09/23, established on 01/28/2024. Signature certifies the need for therapy services. Normal [facility] CNTHERAPYon 01-28-2024 CNTHERAPY OT/PT/Speech Visit (LOPTRM) ----- RAHEEM CODY ([id number]) 1975 M Date Time Provider Department 01/28/24 2:30 PM TIEN HEREDIA Date Time Provider Department Center 01/28/2024 2:30 PM [id number] HEREDIA Reason for Visit: Physical Therapy [503] Patient [...] 40 mg by mouth once daily. Normal [facility] CNOVon 01-26-2024 CNOV Office Visit (PLASAV ) ----- RAHEEM CODY ([id number]) 1975 M Date Time Provider Department 01/26/24 10:45 AM MACKENZIE STATONPLASAV During your visit today, we recorded the [...] [R51.9] Order(s):CONSULT TO ENT [9008] Order #: [id number]: 1 FUTURE Prescriptions as of 02/04/2024 - [...] of Service: UNLISTED EVALUATION AND MANAGEMENT SERVICE [29366] Encounter Status:Closed by MACKENZIE STATON on 01/26/24 Normal [facility] MR Brain WO and W contrast I Von 01-06-2024 IMPRESSION: No acute brain findings. General volume and morphology of the brain is within expected limits for age. No mass effect or abnormal intracranial enhancement and no abnormal cranial nerve enhancement. 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 Plastic Welder: JEFFREY Transcribe Date/Time: Jan 06 2024 4:04P Dictated by : ESAU MCKINLEY MD This examination was interpreted and the report reviewed and electronically signed by: ESAU MCKINLEY MD on Jan 06 2024 4:11PM [facility] DIVISION OF RADIOLOGY * * *Final [...] condyle and fossa. 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 Plastic Welder: JEFFREY Transcribe Date/Time: Jan 06 2024 4:04P Dictated by : ESAU MCKINLEY MD This examination was interpreted and the report reviewed and electronically signed by: ESAU MCKINLEY MD on Jan 06 2024 4:11PM EST [facility] Radiology Study observation (narrative) [facility] MR Brain WO and W contrast I VOrdered By: Ccf Provider on 01-06-2024 [facility] MRI BRAIN WO/W IVCONon 01-05 [...] mild right and moderate left TMJ DJD. Plastic Welder: PSCB Transcribe Date/Time: Jan 06 2024 4:04P Dictated by : ESAU MCKINLEY MD This examination was interpreted and the report reviewed and electronically signed by: ESAU MCKINLEY MD on Jan 06 2024 4:11PM EST [id number] Normal [facility] 01-05-2024 [facility] Telephone ([facility]) ----- RAHEEM CODY ([id number]) 1975 M Date Time Provider Department 01/05/24 EYAL GARCIA [facility] During your visit today, we recorded the following information about you: Ivana Patient Project Portfolio Analyst Lulu Denson 01/05/2024 11:29 AM Signed Name of Caller: Raheem Cody Relationship to patient: patient Last visit in this department: Visit date not found Reason for Call: Other : Patient says if he looks at mri for tmj it shows cyst in jawbone and several growths. He also said its hard to swallow. Company Accountant told him to stop taking a medication because of dehydration. Patient requests a different medication for MRI. Please call to discuss. Callback number: [phone] Fax Number (if necessary): N/A Additional info if needed (Prior Auth #, Claim #, etc?): N/A Lulu Heath Patient Project Portfolio Analyst Ccsr Treasure Hernandez RN 01/05/2024 11:58 AM Signed See MyChart encounter from 12/31/2023. Informed patient that he should also schedule a follow up appointment to discuss symptoms in depth with provider. Informed him that he can schedule with any headache JEROME. Allergies As of Date: 01/05/2024 Noted Allergy Reaction PENICILLINS 06/03/2007 10 - Anaphylaxis Date Reviewed: 12/08/2023 Reviewed by: Kory Kirkland APRN.INSTRUCTOR TRAINER CANINE SERVICE - Fully Assessed Prescriptions as of 01/05/2024 [...] Status:Closed by TREASURE HERNANDEZ on 01/05/24 Normal [facility] C[facility] Telephone (NIQ) ----- RAHEEM CODY ([id number]) 1975 M Date Time Provider Department 12/31/23 EYAL GARCIA During your visit today, we recorded the following information about you: Rachelle Berry 12/31/2023 12:38 PM Signed Raheem is calling Eyal Garcia MD today asking if he can be prescribed XANAX to help him get threw the MRI that he is scheduled for on 01/06/24. If this is possible please send it to [facility] in [place]. Please advise. Patient has been identified by name and birthdate. Duration of symptoms: N/A Person calling: self Call patient at: at home [phone] (home) Was an appointment scheduled: No Closing statement: Results or non-symptom based questions: Thank you for calling [facility], your call will be returned [...] to the wrong pharmacy. Please send to [facility] in [place]. Idalia Nraanjo LPN 12/31/2023 4:39 PM Signed Forwarded to provider. Eayl Garcia MD 12/31/2023 5:20 PM Signed Addended by: EYAL GARCIA on: 12/31/2023 05:20 PM Modules accepted: Orders Eyal Garcia MD 12/31/2023 5:21 PM Signed Re-sent to [facility]. Eyal Garcia MD December 31, 2023 5:21 PM Allergies As of Date: 12/31/2023 Noted Allergy Reaction PENICILLINS 06/03/2007 10 - Anaphylaxis Date Reviewed: 12/08/2023 Reviewed by: Kory Kirkland APRN.INSTRUCTOR TRAINER CANINE SERVICE - Fully Assessed Reason for Visit: Patient [...] Status:Closed by EYAL GARCIA on 12/31/23 Normal [facility] MR TMJon 12-30-2023 MR TMJ MR TMJ History: Mild [place] pain and pain while swallowing. Symptoms for [...] Conrad MD on 12/30/2023 12:03 PM Normal [facility] Antinuclear AB, HE-p Substra te, (GETACHEW by IFA)on 12-27-2023 Antinuclear Ab, HEp-2 Substrate, S Negative Normal <1:80 (Negative) [facility] Comment on above: Result Comment: NOTE ADDITIONAL INFORMATION Method: Immunofluorescence using HEp-2 cellular substrate. Test Performed by: [place] [address] Community Health Planning Director: Cruz Muñoz Ph.D.; CLIA# [id number] Performed By: #### C 34, ENAP #### [facility] ([id number]) [address] [facility], [address] [place] [address] #### 01081-0, NAIFA #### [facility] ([id number]) [address] [place] [address], COMPLEMENT PROFILEon 024 COMPLEMENT C3 115 mg/dL Normal 86-184 [facility] Comment on above: Performed By: #### C 34, ENAP #### [facility] ([id number]) [address] [facility], [address] [place] [address] #### 20204-0, NAIFA #### [facility] ([id number]) [address] [place] [address], COMPLEMENT C4 10 mg/dL Low 16-47 [facility] Comment on above: Performed By: #### C 34, ENAP #### [facility] ([id number]) [address] [facility], [address] [place] [address] #### 24290-6, NAIFA #### [facility] ([id number]) [address] [place] [address], DNA double strand IgG IF Cri thidia luciliae (S) [Titer]on 12-27-2023 Crithidia Interpretation See Note Normal [facility] Comment on above: Result Comment: NOTE Testing for dsDNA antibody by Crithidia IFA was negative. Test Performed by: [place] [address] Community Health Planning Director: Cruz Muñoz Ph.D.; CLIA# [id number] Performed By: #### C 34, ENAP #### [facility] ([id number]) [address] [facility], [address] [place] [address] #### 43099-1, NAIFA #### [facility] ([id number]) [address] [facility], dsDNA Ab by Toro IFA, IgG, S Negative Normal Negative [facility] Comment on above: Performed By: #### C 34, ENAP #### [facility] ([id number]) [address] [facility], [facility] [address] [place] [address] #### 10784-1, NAIFA #### [facility] ([id number]) [address] [facility], CHERYL PANELon 12-27-2023 ANTI-BARROW AB IGG <0.2 Normal <1.0 [facility] Comment on above: Performed By: #### C 34, ENAP #### [facility] ([id number]) [address] [place] [address], [place] [id number] #### 56973-5, NAIFA #### [facility] ([id number]) [address] [place] [address], JO1 ANTIBODY <0.2 Normal <1.0 [facility] Comment on above: Performed By: #### C 34, ENAP #### [facility] ([id number]) [address] [place] [address], [facility] [address] [place] [address] #### 30968-0, NAIFA #### [facility] ([id number]) [address] [place] [address], DIRECTOR ANTIBODY IGG 0.2 AI Normal <1.0 [facility] Comment on above: Performed By: #### C 34, ENAP #### [facility] ([id number]) [address] [place] [address], [address] [place] [address] #### 44959-5, NAIFA #### [facility] ([id number]) [address] [place] [address], SCL 70 ANTIBODY <0.2 Normal <1.0 [facility] Comment on above: Performed By: #### C 34, ENAP #### [facility] ([id number]) [address] [facility], [address] [place] [address] #### 83157-9, NAIFA #### [facility] ([id number]) [address] [facility], SSA ANTIBODY <0.2 Normal <1.0 [facility] Comment on above: Performed By: #### C 34, ENAP #### [facility] ([id number]) [address] [facility], [address] [place] [address] #### 77819-1, NAIFA #### [facility] ([id number]) [address] [place] [address], SSB ANTIBODY 0.3 AI Normal <1.0 [facility] Comment on above: Performed By: #### C 34, ENAP #### [facility] ([id number]) [address] [place] [address], [address] [place] [address] #### 57901-4, NAIFA #### [facility] ([id number]) [address] [place] [address], C REACTIVE PROTEINon 024 CRP [Mass/Vol] mg/L Normal 0.000-0.744 [facility] Comment on above: Performed By: #### 1 988-5, CBCA, CMP #### [facility] ([id number]) [address] [place] [address] 13416 CBC AND AUTO DIFFon 12-17-19 24 ABSOLUTE BASOPHIL 0.0 X10E9/L Normal 0.0-0.2 [facility] Comment on above: Performed By: #### 1 988-5, CBCA, CMP #### [facility] ([id number]) [address] [place] [address] 49168 ABSOLUTE NEUTROPHIL 5.1 X10E9/L Normal 1.5-6.6 [facility] Comment on above: Performed By: #### 1 988-5, CBCA, CMP #### [facility] ([id number]) [address] [place] [address] 14940 Basophils/100 WBC (Bld) 0.4 % Normal [facility] Comment on above: Performed By: #### 1 988-5, CBCA, CMP #### [facility] ([id number]) [address] [place] [address] 59148 Eosinophils (Bld) [#/Vol] 0.0 10*3/uL Normal 0.0-0.4 [facility] Comment on above: Performed By: #### 1 988-5, CBCA, CMP #### [facility] ([id number]) [address] [place] [address] 64142 Eosinophils/100 WBC (Bld) 0.7 % Normal [facility] Comment on above: Performed By: #### 1 988-5, CBCA, CMP #### [facility] ([id number]) [address] [place] [address] 14739 Erythrocyte distribution width (RBC) [Ratio] 13.9 % Normal 11.5-15.0 [facility] Comment on above: Performed By: #### 1 988-5, CBCA, CMP #### [facility] ([id number]) [address] [place] [address] 23928 Hematocrit (Bld) [Volume fraction] 43.7 % Normal 39-49 [facility] Comment on above: Performed By: #### 1 988-5, CBCA, CMP #### [facility] ([id number]) [address] [place] [address] 18490 Hemoglobin (Bld) [Mass/Vol] 15.1 g/dL Normal 13.0-17.0 [facility] Comment on above: Performed By: #### 1 988-5, CBCA, CMP #### [facility] ([id number]) [address] [place] [address] 72234 Lymphocytes (Bld) [#/Vol] 1.2 10*3/uL Normal 1.0-3.5 [facility] Comment on above: Performed By: #### 1 988-5, CBCA, CMP #### [facility] ([id number]) [address] [place] [address] 48301 Lymphocytes/100 WBC (Bld) 18.0 % Normal [facility] Comment on above: Performed By: #### 1 988-5, CBCA, CMP #### [facility] ([id number]) [address] [place] [address] 84877 MCH (RBC) [Entitic mass] 33.4 pg Normal 27-34 [facility] Comment on above: Performed By: #### 1 988-5, CBCA, CMP #### [facility] ([id number]) [address] [place] [address] 53600 MCHC (RBC) [Mass/Vol] 34.6 g/dL Normal 32-36 [facility] Comment on above: Performed By: #### 1 988-5, CBCA, CMP #### [facility] ([id number]) [address] [place] [address] 05700 MCV (RBC) [Entitic vol] 96 fL Normal 80-100 [facility] Comment on above: Performed By: #### 1 988-5, CBCA, CMP #### [facility] ([id number]) [address] [place] [address] 58459 Monocytes (Bld) [#/Vol] 0.4 10*3/uL Normal 0-0.9 [facility] Comment on above: Performed By: #### 1 988-5, CBCA, CMP #### [facility] ([id number]) [address] [place] [address] 67833 Monocytes/100 WBC (Bld) 5.8 % Normal [facility] Comment on above: Performed By: #### 1 988-5, CBCA, CMP #### [facility] ([id number]) [address] [place] [address] 58653 Neutrophils/100 WBC (Bld) 75.1 % Normal [facility] Comment on above: Performed By: #### 1 988-5, CBCA, CMP #### [facility] ([id number]) [address] [place] [address] 56268 Platelet mean volume (Bld) [Entitic vol] 7.3 fL Normal 7-12 [facility] Comment on above: Performed By: #### 1 988-5, CBCA,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 04/23/22 0426 [facility] ED Nursing Note Nurse at bedside to place nicotine patch on Pt Heidi Anthony 04/23/22 0410 [facility] ED Nursing Note Spoke to Frances at Do jennifer Manuel to arrange transport to [facility]. Cheko Torres RN 04/23/22 3674 [facility] ED Nursing Note Patient is resting i n bed with eyes closed. Respirations even and unlabored. No distress noted. Azeb Tamez RN 04/23/22 3883 [facility] ED Nursing Note Pt getting water fro m sink in hallway Heidi Anthony 04/23/22 0310 [facility] ED Nursing Note Patient is resting i n bed with eyes closed. Respirations even and unlabored. No distress noted. Azeb Tamez, REDD 04/23/22 0243 [facility] ED Nursing Note Nurse and protective services at bedside with Pt's money to witness counting money before he's discharged. Pt requested to go to the restroom. Heidi Anthony 04/23/22 0147 Heidi Anthony 04/23/22 0149 Heidi Anthony 04/23/22 0150 [facility] 04/23/22 0154 [facility] ED Nursing Note Report given to Ed R N at [facility]. Cheko Torres RN 04/23/22 0134 [facility] ED Nursing Note Patient is resting i n bed with eyes closed. Respirations even and unlabored. No distress noted. Azeb Tamez RN 04/23/22132 [facility] ED Nursing Note Called [facility] and spoke to javan and placed pt on the list. Marc Joseph MA 04/22/222239 [facility] ED Nursing Note Patient is pacing in his room. Respirations even and unlabored. Patient asking for nicotine patch and melatonin. Provider notified. Azeb Tamez RN 04/22/222225 [facility] ED Nursing Note Tech giving Pt a bag ged lunch Heidicassandra Anthony 04/22/222211 [facility] ED Nursing Note Patient given chelsey edi and bagged lunch. Azeb Tamez RN 04/22/222209 Azeb Tamez RN 04/22/222211 [facility] ED Nursing Note Pt pacing in room Heidi [facility] 04/22/222205 [facility] No Panel Informationon 04-23 P [place] [address] [facility] ND Interval [address] [facility] QRS [place] [address] [facility] QRSD Interval [address] [facility] QT Interval [address] [facility] QTC Interval [address] [facility] T Wave [place] [address] [facility] Sinus rhythm Lateral infarct, 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 anteroseptal infarct, old No significant change compared to Electronically Signed On 04-23-2022 3:27:50 EST by Allie Hart MD - 04/23/2022 IMPRESSION: Sinus rhythm Lateral infarct, 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 anteroseptal infarct, old No significant change compared to Electronically Signed On 04-23-2022 3:27:50 EST by Allie Bustamante [facility] Vital signson 04-23-2022 Heart rate 86 /min bpm [facility] CBC W Auto Differential pane l (Bld)on 04-22-2022 Basophils (Bld) [#/Vol] 0.1 10*3/uL 0.0 - 0.2 10*3/uL [facility] Basophils/100 WBC (Bld) 0.6 % 0.0 - 2.0 % [facility] Eosinophils (Bld) [#/Vol] 0.2 10*3/uL 0.0 - 0.5 10*3/uL [facility] Eosinophils/100 WBC (Bld) 2.0 % 1.0 - 6.0 % [facility] Erythrocyte distribution width (RBC) [Ratio] 13.3 % 11.5 - 14.5 % [facility] Hematocrit (Bld) [Volume fraction] 49.6 % 40.0 - 52.0 % [facility] Hemoglobin (Bld) [Mass/Vol] 17.1 g/dL 13.0 - 18.0 g/dL [facility] Interpretation and review of laboratory results Normal [facility] Lymphocytes (Bld) [#/Vol] 3.2 10*3/uL 1.0 - 4.3 10*3/uL [facility] Lymphocytes/100 WBC (Bld) 36.0 % 20.0 - 40.0 % [facility] MCH (RBC) [Entitic mass] 33.8 pg 26.0 - 34.[address] [facility] MCHC (RBC) [Mass/Vol] 34.6 % 32.0 - 36.0 % [facility] MCV (RBC) [Entitic vol] 97.8 fL 80.0 - 98.[address] [facility] Monocytes (Bld) [#/Vol] 0.8 10*3/uL 0.0 - 0.8 10*3/uL [facility] Monocytes/100 WBC (Bld) 8.4 % 2.0 - 10.0 % [facility] Neutrophils (Bld) [#/Vol] 4.7 10*3/uL 1.8 - 7.0 10*3/uL [facility] Neutrophils/100 WBC (Bld) 53.0 % 40.0 - 80.0 % [facility] Nucleated RBC/100 WBC (Bld) [Ratio] 0.0 % [facility] Platelet mean volume (Bld) [Entitic vol] 8.0 fL 7.4 - 12.[address] [facility] Platelets (Bld) [#/Vol] 201 10*3/uL 140 - 440 10*3/uL [facility] RBC (Bld) [#/Vol] 5.07 10*6/uL 4.40 - 5.9 0 10*6/uL [facility] WBC (Bld) [#/Vol] 9.0 10*3/uL 3.6 - 10.7 10*3/uL [facility] CT HEAD WO IV CONTRASTon CT HEAD [...] Marroquin Electronically Signed Date/Time: 04/22/2022 8:31 PM [facility] CT Head WO contraston 2022 No acute intracranial abnormalities. Report Dictated on Electronically Signed By: Heber Marroquin Electronically Signed Date/Time: 04/22/2022 8:31 PM [facility] Patient Name: RAHEEM CODY : 1975 Exam Date/Time: 04/22/2022 20:28 Procedure: [...] included paranasal sinuses and orbits are normal. [facility] EMERGENCY DEPARTMENT RADIOLOGY SYSTEM Heber Marroquin M D - 04/22/2022 Patient Name: [facility]ODY : 1975 [id number] Exam Date/Time: 04/22/2022 20:28 Procedure: CT HEAD [...] Electronically Signed Date/Time: 04/22/2022 8:31 PM EST [facility] Radiology Study observation (narrative) [facility] CT Head WO contrastOrdered B y: Heber Marroquin on 04-22-2022 [facility] [employer] Work Phone: Comprehensive metabolic 1998 panelon 04-22-2022 Albumin [Mass/Vol] 4.9 g/dL 3.5 - 5.0 g/dL [facility] ALP [Catalytic activity/Vol] 63 U/L 38 - 126 U/L [facility] ALT [Catalytic activity/Vol] 108 U/L High 0 - 49 U/L [facility] Anion gap [Moles/Vol] 10 mmol/L 3 - 13 mmol/L [facility] AST [Catalytic activity/Vol] 71 U/L High 15 - 46 U/L [facility] Bilirubin [Mass/Vol] 0.5 mg/dL 0.2 - 1 .3 mg/dL [facility] Calcium [Mass/Vol] 9.9 mg/dL 8.4 - 10. 4 mg/dL [facility] Chloride [Moles/Vol] 104 mmol/L 98 - 10 7 mmol/L [facility] CO2 [Moles/Vol] 28 mmol/L 22 - 30 mmol/L [facility] Creatinine [Mass/Vol] 0.85 mg/dL 0.66 - 1.25 mg/dL [facility] GFR/1.73 sq M.predicted MDRD (S/P/Bld) [Vol rate/Area] - PINF [facility] Comment on above: Calculation based on the Chronic Kidney Disease Epidemiology Collaboration (CKD-EPI) equation refit without adjustment for race Glucose [Mass/Vol] 94 mg/dL 70 - 100 mg/dL [facility] Interpretation and review of laboratory results Abnormal [facility] Potassium [Moles/Vol] 3.9 mmol/L 3.5 - 5.1 mmol/L [facility] Protein [Mass/Vol] 8.7 g/dL High 6.3 - 8.2 g/dL [facility] Sodium [Moles/Vol] 143 mmol/L 135 - 145 mmol/L [facility] Urea nitrogen [Mass/Vol] 18 mg/dL 9 - 20 mg/dL [facility] ED Nursing Noteon 04-22-2022 ED Nursing Note Patient is laying in bed and watching tv. Respirations even and unlabored. No distress noted. Azeb Tamez RN 04/22/222120 [facility] ED Nursing Note Pt changed into two [...] on bed watching TV Heidi Anthony 04/22/222118 [facility] ED Nursing Note Patient changed into 2 gowns and socks. Patient wanded by protective services. 1 bag of belongings placed in locker. Patient [place] [id number]. Patient to room 50. Azeb Tamez RN 04/22/222111 [facility] ED Nursing Note Patient to restroom with MARIE Paulino. Azeb Tamez RN 04/22/222107 [facility] ED Nursing Note Pt currently in room 47 for intake process Heidi Anthony 04/22/222056 [facility] ED Nursing Note Bed: 50 Expected date: 04/22/22 Expected time: Means of arrival: Comments: Fast Track Pt Yarelis Cervantes MA 04/22/222054 [facility] ED Nursing Note Pt to be moved to behavorial after pink slip from attending. Connie Mahmood LPN 04/22/222014 [facility] ED Provider Noteon ED Provider Note I did not participat e in the care of this patient. Jim Medina PA-C 04/22/22 0147 [facility] ED Provider Note Emergency Department Encounter [facility] EMERGENCY DEPT Patient: Raheem Cody : 1975 Date of Evaluation: 04/22/2022 ED Supervising Physician: Allie Bustamante MD I independently examined and evaluated Raheem Cody. In brief, Raheem Cody is a 47 y.o. male with a past medical history significant for polysubstance abuse and hepatitis C that presents to the emergency department for evaluation for concern that people are following him. 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 He states its people from [place] and [place]. He states that he has [...] (%) 04/22/221934 -- Left arm Focused exam: [id number] in no acute distress. Alert and oriented [...] Culture. Procedure Abnormality Status --------- ------ Complete Urinalysis[[id number]] Normal Final result Please view results for [...] [PK] Allie (more content not included)... Normal [facility] ED Provider Note EMERGENCY DEPARTMENT ENCOUNTER Pt Name: Raheem Cody Birthdate 1975 Date of evaluation: 04/22/2022 ED [...] while he was in a hotel in [facility]. HISTORY OF PRESENT ILLNESS (Location/Symptom, Timing/Onset, Context/Setting, Quality, Duration, Modifying Factors, Severity) Note limiting factors. I wore appropriate PPE for the entirety of this encounter. HPI Raheem Cody is a 47 y.o. male who presents [...] while he was at a hotel in [place] about 6 months ago. He states that he saw something that he was not supposed to see and does not remember anything after that. He is very concerned that people from the [place] government are following him due to inheriting [...] [04/22/221934] Temp Heart Rate Resp BP 37.2 ?C [...] Eosinophils Relative (more content not included)... Normal [facility] SHS Ethanol (Bld) [Mass/Vol]on 0 04-22-2022 Ethanol [Mass/Vol] g/dL 0.000 - 0.010 g/dL [facility] Laboratory - Chemistry and C hemistry - challengeon 04-22-2022 CK [Catalytic activity/Vol] 113 U/L 30 - 170 U/L [facility] - Drug toxicology Ordered By: Elisa Jones on 04-22-2022 Amphetamines Screen method >1000 ng/mL Ql (U) Negative [facility] Barbiturates Screen method >200 ng/mL Ql (U) Negative [facility] Benzodiazepines Ql (U) Negative [facility] Methadone Screen Ql (U) Negative [facility] Opiates Screen Ql (U) Negative [facility] oxyCODONE Ql (U) Negative [facility] Phencyclidine Ql (U) Negative [facility] Laboratory - Microbiology an d Antimicrobial susceptibilityOrdered By: Martita Marvin on 04-22-2022 SARS-CoV-2 (COVID-19) Ag IA.rapid Ql (Resp) Negative Negative [facility] Comment on above: A negative result do es not rule out the possibility of SARS-CoV-2 infection. NAAT-based methods should be considered for symptomatic patients presenting greater than seven days after onset of symptoms. Method: Lateral flow immunoassay. Fact sheets for healthcare providers and patients can be found at the following sites: https://www.fda.gov/media/562736/download https://www.Instabug.gov/media/594409/download No Panel InformationOrdered By: Elisa Jones on 04-22-2022 COCAINE METAB. SCREEN Negative Sum [facility] The expected value f or all of [...] is needed, request confirmation under separate order. [facility] No Panel Informationon 04-22 Interpretation and review of laboratory results Normal [facility] SARS-CoV-2 (COVID-19) Ag IA. rapid Ql (Resp)Ordered By: Martita Marvin on 04-22-2022 Interpretation and review of laboratory results Normal [facility] Urinalysis complete panel (U )on 04-22-2022 Bilirubin Ql (U) Negative Negative mg/dL [facility] Clarity (U) Clear Clear [facility] Color (U) Light Yellow Lt. Yellow [facility] Glucose Ql (U) Normal Normal (<70) mg/dL [facility] Hemoglobin Ql (U) Negative Negative mg/dL [facility] Interpretation and review of laboratory results Normal [facility] Ketones (U) [Mass/Vol] Negative Negat kenneth mg/dL [facility] Leukocyte esterase Test strip Ql (U) Negative Negative Shaila/uL [facility] Nitrite Ql (U) Negative Negative [facility] pH (U) 6.5 [pH] 5.0 - 8.[address] [facility] Protein (U) [Mass/Vol] Negative Negat kenneth mg/dL [facility] Specific gravity (U) [Rel density] 1.024 1.005 - 1.[address] [facility] Urobilinogen (U) [Mass/Vol] Normal Normal (0-1) mg/dL [facility] ED Nursing Noteon 04-19-2022 ED Nursing Note Patient arrived ambulatory to room 4 without difficulty. Patient complains of bilateral hearing loss for the past couple months. Patient states he was driving from [place] to [place] and stopped at hotel where he was given a bottle of water which he thinks had poison in it causing his hearing loss. Patient states he can't hear himself think . Patient also complains of hearing a slimy movement in the back of his head. Patient denies any pain but states sounds echo and he has sensitivity to sounds. Normal [facility] ED Provider Noteon ED Provider Note EMERGENCY DEPARTMENT ENCOUNTER Pt Name: Raheem Cody Birthdate 1975 Date of evaluation: 04/19/2022 ED Provider: Marlon Abebe MD CHIEF COMPLAINT Chief Complaint Patient presents with Hearing Problem HISTORY OF PRESENT ILLNESS (Location/Symptom, Timing/Onset, Context/Setting, Quality, Duration, Modifying Factors, Severity) Note limiting factors. I wore appropriate PPE for the entirety of this encounter. HUY Cody is a 47 y.o. male who presents to the emergency department chief complaint of bilateral jaw pain when he is chewing or opening his mouth wide and left ear sensitivity. He states that he feels like his hearing has decreased.. He reports right posterior head pain. Denies any injury or trauma. 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 He states that he feels like he was poisoned when he was in [place]. Denies feeling suicidal or homicidal. Nursing Notes [...] Patient o (more content not included)... Normal [facility] COVID-19, MOLECULARon 2021 SARS-CoV-2 (COVID-19) RNA KATELYNN+probe Ql (Unsp spec) Not detected Normal Not Detected [facility] Comment on above: Order Comment: This test [...] at the following links: For Healthcare Providers: https://www.fda.gov/media/463335/download For Patients: https://www.fda.gov/media/639358/download Performed By: #### L [id number] #### [facility] [address] [address] Barbara Yung M.D. [id number] Basic Metabolic Panelon 03-09 Calcium [Mass/Vol] 9.7 mg/dL Normal 8.4-10.4 [facility] Comment on above: Performed By: #### L ACT3, BMP3, HEMDF #### [facility] [address] [place] [address] Anion gap [Moles/Vol] 4 mmol/L Normal 3-13 [facility] Comment on above: Performed By: #### L ACT3, BMP3, HEMDF #### [facility] [address] [place] [address] CO2 [Moles/Vol] 28 mmol/L Normal 22-30 [facility] Comment on above: Performed By: #### L ACT3, BMP3, HEMDF #### [facility] [address] [place] [address] Creatinine [Mass/Vol] 0.86 mg/dL Normal 0.52-1.25 [facility] Comment on above: Performed By: #### L ACT3, BMP3, HEMDF #### [facility] [address] [place] [address] eGFR OTHER > 90.0 Normal >60 [facility] Comment on above: Result Comment: KDIG O [...] By: #### L ACT3, BMP3, HEMDF #### [facility] [address] [place] [address] GFR/1.73 sq M.predicted among blacks MDRD (S/P/Bld) [Vol rate/Area] mL/min/{1.73_m2} Normal >60 [facility] Comment on above: Performed By: #### L ACT3, BMP3, HEMDF #### [facility] [address] [place] [place] [address] Glucose [Mass/Vol] 98 mg/dL Normal 70-100 [facility] Comment on above: Performed By: #### L ACT3, BMP3, HEMDF #### [facility] [address] [place] [place] [address] Urea nitrogen [Mass/Vol] 10 mg/dL Normal 7-17 [facility] Comment on above: Performed By: #### L ACT3, BMP3, HEMDF #### [facility] [address] [place] [address] Chloride [Moles/Vol] 107 mmol/L Normal 98-107 [facility] Comment on above: Performed By: #### L ACT3, BMP3, HEMDF #### [facility] [address] [place] [address] Potassium [Moles/Vol] 3.7 mmol/L Normal 3.5-5.1 [facility] Comment on above: Performed By: #### L ACT3, BMP3, HEMDF #### [facility] [address] [place] [address] Sodium [Moles/Vol] 139 mmol/L Normal 135-145 [facility] Comment on above: Performed By: #### L ACT3, BMP3, HEMDF #### [facility] [address] [place] [address] CR Foot Complete 3+ Views Le f[place] 04-02-2021 CR Foot Complete 3+ Views Left Patient Name: RAHEEM CODY Jr Diagnostic Radiology ACCESSION EXAM DATE/TIME PROCEDURE ORDERING PROVIDER [id number] 04/02/2021 10:28 EST CR Foot Complete 3+ MD MUNDO, ENRIQUE Views Left CPT code 73364 Reason For Exam (CR Foot Complete 3+ [...] Report Dictated on Final Dictating Physician: MD MCBRIDE YUN ROBERT Signed Date and Time: 04/02/2021 10:44 am Signed by: MD MCBRIDE YUN ROBERT Transcribed Date and Time: 04/02/2021 10:45 Normal [facility] Hemogram w/ Autodiffon 04-02 Abs Baso Cnt 0.0 10*3/uL Normal 0.0-0.2 [facility] Comment on above: Performed By: #### L ACT3, BMP3, HEMDF #### [facility] [address] [place] [address] Abs Neutrophile Cnt 1.7 10*3/uL Low 1.8-7.0 [facility] Comment on above: Performed By: #### L ACT3, BMP3, HEMDF #### [facility] [address] [place] [address] Basophils/100 WBC (Bld) 1.3 % Normal 0.0-2.0 [facility] Comment on above: Performed By: #### L ACT3, BMP3, HEMDF #### [facility] [address] [place] [address] Eosinophils (Bld) [#/Vol] 0.1 10*3/uL Normal 0.0-0.5 [facility] Comment on above: Performed By: #### L ACT3, BMP3, HEMDF #### [facility] [address] [place] [address] Eosinophils/100 WBC (Bld) 3.3 % Normal 1.0-6.0 [facility] Comment on above: Performed By: #### L ACT3, BMP3, HEMDF #### [facility] [address] [place] [address] Erythrocyte distribution width (RBC) [Ratio] 13.7 % Normal 11.5-14.5 [facility] Comment on above: Performed By: #### L ACT3, BMP3, HEMDF #### [facility] [address] [place] [address] Granulocytes/100 WBC (Bld) 44.5 % Normal 40.0-80.0 [facility] Comment on above: Performed By: #### L ACT3, BMP3, HEMDF #### [facility] [address] [place] [address] Hematocrit (Bld) [Volume fraction] 45.2 % Normal 40.0-52.0 [facility] Comment on above: Performed By: #### L ACT3, BMP3, HEMDF #### [facility] [address] [place] [address] Hemoglobin (Bld) [Mass/Vol] 15.6 g/dL Normal 13.0-18.0 [facility] Comment on above: Performed By: #### L ACT3, BMP3, HEMDF #### [facility] [address] [place] [address] Lymphocytes (Bld) [#/Vol] 1.6 10*3/uL Normal 1.0-4.3 [facility] Comment on above: Performed By: #### L ACT3, BMP3, HEMDF #### [facility] [address] [place] [address] Lymphocytes/100 WBC (Bld) 42.8 % High 20.0-40.0 [facility] Comment on above: Performed By: #### L ACT3, BMP3, HEMDF #### [facility] [address] [place] [address] MCH (RBC) [Entitic mass] 33.9 pg Normal 26.0-34.0 [facility] Comment on above: Performed By: #### L ACT3, BMP3, HEMDF #### [facility] [address] [place] [address] MCHC 34.6 % Normal 32.0-36.0 [facility] Comment on above: Performed By: #### L ACT3, BMP3, HEMDF #### [facility] [address] [place] [address] MCV (RBC) [Entitic vol] 98.1 fL High 80.0-98.0 [facility] Comment on above: Performed By: #### L ACT3, BMP3, HEMDF #### [facility] [address] [place] [address] Monocytes (Bld) [#/Vol] 0.3 10*3/uL Normal 0.0-0.8 [facility] Comment on above: Performed By: #### L ACT3, BMP3, HEMDF #### [facility] [address] [place] [address] Monocytes/100 WBC (Bld) 8.1 % Normal 2.0-10.0 [facility] Comment on above: Performed By: #### L ACT3, BMP3, HEMDF #### [facility] [address] [address] Platelet mean volume (Bld) [Entitic vol] 7.3 fL Low 7.4-10.4 [facility] Comment on above: Performed By: #### L ACT3, BMP3, HEMDF #### [facility] [address] [place] [address] Platelets (Bld) [#/Vol] 132 10*3/uL Low 140-440 [facility] Comment on above: Performed By: #### L ACT3, BMP3, HEMDF #### [facility] [address] [place] [address] RBC (Bld) [#/Vol] 4.61 10*6/uL Normal 4.40-5.90 [facility] Comment on above: Performed By: #### L ACT3, BMP3, HEMDF #### [facility] [address] [place] [address] WBC (Bld) [#/Vol] 3.7 10*3/uL Normal 3.6-10.7 [facility] Comment on above: Performed By: #### L ACT3, BMP3, HEMDF #### [facility] [address] [place] [address] Lactic Acidon 04-02-2021 Lactate [Moles/Vol] 1.1 mmol/L Normal 0.7-2.0 [facility] Comment on above: Performed By: #### L ACT3, BMP3, HEMDF #### [facility] [address] [place] [address] Hepatitis C Genotypeon 10-06 Hepatitis C Genotype 1a or 1b Normal [facility] Comment on above: Result Comment: Haim ot be further subtyped into Type 1a or Type 1b due to high conservation of the 5' untranslated region of the HCV genome. In addition, Type 6 virus may be misclassified as Type 1 in some cases. The Hepatitis C Virus High-Resolution Genotype by Sequencing test ([employer] test code 5207976) provides a higher level of subtype resolution. INTERPRETIVE INFORMATION: Hepatitis C Genotyping Hepatitis C Viral RNA is tested using reverse special services director polymerase chain reaction (RT-PCR) to amplify a specific portion of the 5' untranslated region (5' UTR) of the viral genome. The amplified nucleic acid is sequenced bi-directionally using dye-terminator chemistry ([employer]). Sequencing data is compared to a database [...] developed and its performance characteristics determined by [employer]. It has not been cleared or approved by the [place] Food and Drug Administration. This test was performed in a CLIA certified laboratory and is intended for clinical purposes. Performed By: [employer] [address] [place] [id number] Header Boss: Nany Salamanca MD Performed By: #### H IV4, HCVQ, LIPD2, HEMDF, CMP3 #### [address] [address] #### TSTMO, HPCGO #### The performing lab is in the report. Testo,Free/Total-Maleon 09-07 SHBG 186 nmol/L High 11-80 [facility] Comment on above: Result Comment: REFE RENCE INTERVAL: Sex Hormone Binding Globulin Access complete set of age- and/or gender-specific reference intervals for this test in the [employer] [facility] Test Directory ([employer]). Performed By: #### H IV4, HCVQ, LIPD2, HEMDF, CMP3 #### [facility] [employer] [facility] [address], [place] #### TSTMO, HPCGO #### The performing lab is in the report. Testosterone [Mass/Vol] ng/dL High 300-890 [facility] Comment on above: Result Comment: REFE RENCE INTERVAL: Testosterone, Adult Male Access complete set of age- and/or gender-specific reference intervals for this test in the [employer] [facility] Test Directory ([employer]). Performed By: #### H IV4, HCVQ, LIPD2, HEMDF, CMP3 #### [facility] [employer] [facility] [address], [place] #### TSTMO, HPCGO #### The performing lab is in the report. Testosterone, % Free See Note Normal 1.6-2.9 [facility] Comment on above: Result Comment: The percent Free Testosterone result is greater than 0.6 percent. Performed By: [employer] [address] [place] [address] Header Boss: Nany Salamanca MD Performed By: #### H IV4, HCVQ, LIPD2, HEMDF, CMP3 #### [facility] [employer] [facility] [address], [place] #### TSTMO, HPCGO #### The performing lab is in the report. Testosterone, Free Calc See Note Normal 47-244 [facility] Comment on above: Result Comment: The Free [...] reference intervals for this test in the [facility] Laboratory Test Directory (Dryad). Performed By: #### H IV4, HCVQ, LIPD2, HEMDF, CMP3 #### [facility] [employer] [place] [address] [place] [address] #### TSTMO, HPCGO #### The performing lab is in the report. Hepatitis C RNA Quanton - Hep C RNA Quant (log) 5.86 {Log_IU} Abnormal <1.18 [facility] Comment on above: Performed By: #### H IV4, HCVQ, LIPD2, HEMDF, CMP3 #### [place] [address] [place] [address] #### TSTMO, HPCGO #### The performing lab is in the report. Hepatitis C RNA Quant [id number] [IU]/mL Abnormal <15 [facility] Comment on above: Performed By: #### H IV4, HCVQ, LIPD2, HEMDF, CMP3 #### [facility] [employer] [place] [address] [place], [place] #### TSTMO, HPCGO #### The performing lab is in the report. CBC Auto DifferentialOrdered By: Mechelle Reardon on 10-02-2020 Absolute Baso # 0.0 10*3/uL 0.0 - 0.2 10*3/uL [employer] [employer] Work Phone: Absolute Neut # 1.8 10*3/uL 1.8 - 7.0 10*3/uL [facility] Work Phone: [phone] Basophils/100 WBC (Bld) 0.7 % 0.0 - 2.0 % [employer] Work Phone: [phone] Eosinophils (Bld) [#/Vol] 0.1 10*3/uL 0.0 - 0.5 10*3/uL [facility] Work Phone: Eosinophils/100 WBC (Bld) 3.3 % 1.0 - 6.0 % [facility] Work Phone: [phone] Granulocytes/100 WBC (Bld) 42.1 % 40.0 - 80.0 % [employer] Work Phone: [phone] Hematocrit (Bld) [Volume fraction] 47.0 % 40.0 - 52.0 % [employer] Work Phone: 222 Hemoglobin.gastrointes tinal spec 1 Ql (Stl) 16.1 g/dL 13.0 - 18.0 g/dL [employer] Work Phone: ) 222 Interpretation and review of laboratory results Abnormal [employer] Work Phone: ) 222 Lymphocytes (Bld) [#/Vol] 1.9 10*3/uL 1.0 - 4.3 10*3/uL [employer] Work Phone: [phone] 222 Lymphocytes/100 WBC (Bld) 45.4 % High 20.0 - 40.0 % [employer] Work Phone: 222 MCH (RBC) [Entitic mass] 33.9 pg 26.0 - 34.0 pg [employer] Work Phone: 222 MCHC (RBC) [Mass/Vol] 34.3 % 32.0 - 36.0 % [employer] Work Phone: [phone] 222 MCV (RBC) [Entitic vol] 98.7 fL High 80.0 - 98.0 fL [facility] Work Phone: ) 222 Monocytes (Bld) [#/Vol] 0.4 10*3/uL 0.0 - 0.8 10*3/uL [employer] Work Phone: ) 222 Monocytes/100 WBC (Bld) 8.5 % 2.0 - 10.0 % [employer] Work Phone: [phone] 222 Platelet distribution width (Bld) [Ratio] 14.3 % 11.5 - 14.5 % [employer] Work Phone: ) 222 Platelet mean volume (Bld) [Entitic vol] 8.6 fL 7.4 - 10.4 fL [employer] Work Phone: () 222 Platelets (Bld) [#/Vol] 134 10*3/uL Low 140 - 440 10*3/uL [facility] Work Phone: ) 222 RBC (Bld) [#/Vol] 4.76 10*6/uL 4.40 - 5.9 0 10*6/uL [facility] Work Phone: WBC (Bld) [#/Vol] 4.2 10*3/uL 3.6 - 10.7 10*3/uL [facility] Work Phone: Test Performed by [facility], [address] [place] [address] [facility] Work Phone: [facility] Work Phone: Comp Metabolic Panelon 10-02 ALP [Catalytic activity/Vol] 49 U/L Normal 38-126 [facility] Comment on above: Performed By: #### H IV4, HCVQ, LIPD2, HEMDF, CMP3 #### [address] #### TSTMO, HPCGO #### The performing lab is in the report. ALT [Catalytic activity/Vol] 107 U/L High 0-49 [facility] Comment on above: Result Comment: The ALT test is performed by an updated assay method. Please note that the reference intervals have been changed and are now sex specific. Performed By: #### H IV4, HCVQ, LIPD2, HEMDF, CMP3 #### [address] #### TSTMO, HPCGO #### The performing lab is in the report. Calcium [Mass/Vol] 9.5 mg/dL Normal 8.4-10.4 [facility] Comment on above: Performed By: #### H IV4, HCVQ, LIPD2, HEMDF, CMP3 #### [address] #### TSTMO, HPCGO #### The performing lab is in the report. Anion gap [Moles/Vol] 7 mmol/L Normal 3-13 [facility] Comment on above: Performed By: #### H IV4, HCVQ, LIPD2, HEMDF, CMP3 #### [address] #### TSTMO, HPCGO #### The performing lab is in the report. AST [Catalytic activity/Vol] 79 U/L High 15-46 [facility] Comment on above: Performed By: #### H IV4, HCVQ, LIPD2, HEMDF, CMP3 #### [place] [address] [place], [place] #### TSTMO, HPCGO #### The performing lab is in the report. Bilirubin [Mass/Vol] 0.8 mg/dL Normal 0.2-1.3 [facility] Comment on above: Performed By: #### H IV4, HCVQ, LIPD2, HEMDF, CMP3 #### [place] [address] [place], [place] #### TSTMO, HPCGO #### The performing lab is in the report. CO2 [Moles/Vol] 30 mmol/L Normal 22-30 [facility] Comment on above: Performed By: #### H IV4, HCVQ, LIPD2, HEMDF, CMP3 #### [address] #### TSTMO, HPCGO #### The performing lab is in the report. Creatinine [Mass/Vol] 0.80 mg/dL Normal 0.52-1.25 [facility] Comment on above: Performed By: #### H IV4, HCVQ, LIPD2, HEMDF, CMP3 #### [place] [address] [place], [place] #### TSTMO, HPCGO #### The performing lab is in the report. eGFR OTHER > 90.0 Normal >60 [facility] Comment on above: Result Comment: KDIG O [...] H IV4, HCVQ, LIPD2, HEMDF, CMP3 #### [place] [address] [place], [place] #### TSTMO, HPCGO #### The performing lab is in the report. GFR/1.73 sq M.predicted among blacks MDRD (S/P/Bld) [Vol rate/Area] mL/min/{1.73_m2} Normal >60 [facility] Comment on above: Performed By: #### H IV4, HCVQ, LIPD2, HEMDF, CMP3 #### [address] #### TSTMO, HPCGO #### The performing lab is in the report. Glucose [Mass/Vol] 83 mg/dL Normal 70-100 [facility] Comment on above: Performed By: #### H IV4, HCVQ, LIPD2, HEMDF, CMP3 #### [place] [address] [place], [place] #### TSTMO, HPCGO #### The performing lab is in the report. Protein [Mass/Vol] 8.1 g/dL Normal 6.3-8.2 [facility] Comment on above: Performed By: #### H IV4, HCVQ, LIPD2, HEMDF, CMP3 #### [place] [address] [place], [place] #### TSTMO, HPCGO #### The performing lab is in the report. Urea nitrogen [Mass/Vol] 8 mg/dL Normal 7-20 [facility] Comment on above: Performed By: #### H IV4, HCVQ, LIPD2, HEMDF, CMP3 #### [place] [address] [place], [place] #### TSTMO, HPCGO #### The performing lab is in the report. Chloride [Moles/Vol] 102 mmol/L Normal 98-107 [facility] Comment on above: Performed By: #### H IV4, HCVQ, LIPD2, HEMDF, CMP3 #### [address] #### TSTMO, HPCGO #### The performing lab is in the report. Potassium [Moles/Vol] 4.2 mmol/L Normal 3.5-5.1 [facility] Comment on above: Performed By: #### H IV4, HCVQ, LIPD2, HEMDF, CMP3 #### [address] [address] #### TSTMO, HPCGO #### The performing lab is in the report. Sodium [Moles/Vol] 139 mmol/L Normal 135-145 [facility] Comment on above: Performed By: #### H IV4, HCVQ, LIPD2, HEMDF, CMP3 #### [address] #### TSTMO, HPCGO #### The performing lab is in the report. Albumin [Mass/Vol] 4.6 g/dL Normal 3.5-5.0 [facility] Comment on above: Performed By: #### H IV4, HCVQ, LIPD2, HEMDF, CMP3 #### [address] [address] #### TSTMO, HPCGO #### The performing lab is in the report. Comprehensive Metabolic Pane lOrdered By: Mechelle Reardon on 10-02-2020 Albumin [Mass/Vol] 4.6 g/dL 3.5 - 5.0 g/dL [facility] Work Phone: ALP (Bld) [Catalytic activity/Vol] 49 U/L 38 - 126 U/L [facility] Work Phone: ALT [Catalytic activity/Vol] 107 U/L High 0 - 49 U/L [facility] Work Phone: Comment on above: The ALT test is perf ormed by an updated assay method. Please note that the reference intervals have been changed and are now sex specific. Anion gap [Moles/Vol] 7 mmol/L 3 - 13 mmol/L [facility] Work Phone: AST [Catalytic activity/Vol] 79 U/L High 15 - 46 U/L [facility] Work Phone: Bilirubin [Mass/Vol] 0.8 mg/dL 0.2 - 1 .3 mg/dL [facility] Work Phone: Calcium [Mass/Vol] 9.5 mg/dL 8.4 - 10. 4 mg/dL [facility] Work Phone: Chloride [Moles/Vol] 102 mmol/L 98 - 10 7 mmol/L [facility] Work Phone: CO2 [Moles/Vol] 30 mmol/L 22 - 30 mmol/L [facility] Work Phone: Creatinine [Mass/Vol] 0.8 mg/dL 0.52 - 1.25 mg/dL [facility] Work Phone: EGFR IF NonAfrican Russian >90.0 >60 mL/min [facility] Work Phone: Comment on above: KDIGO guidelines [...] fraction] 8.1 g/dL 6.3 - 8.2 g/dL [facility] Work Phone: GFR/1.73 sq M.predicted among blacks MDRD (S/P/Bld) [Vol rate/Area] mL/min/{1.73_m2} >60 mL/min [facility] Work Phone: [phone] Glucose [Mass/Vol] 83 mg/dL 70 - 100 mg/dL [facility] Work Phone: [phone] Potassium [Moles/Vol] 4.2 mmol/L 3.5 - 5.1 mmol/L [facility] Work Phone: [phone] Sodium [Moles/Vol] 139 mmol/L 135 - 145 mmol/L [facility] Work Phone: [phone] Urea nitrogen (BldV) [Mass/Vol] 8 mg/dL 7 - 20 mg/dL [facility] Work Phone: [phone] HIV 1,2 Ab; p24 Agon 021 HIV 1,2 Ab; p24 Ag Non-Reactive Normal Nonreactive [facility] Comment on above: Result Comment: The specimen was non-reactive for HIV-1 and HIV-2 antibodies and p24 antigen using an FDA-cleared 4th generation HIV test. Based on this non-reactive screen result, further reflexive testing was not indicated and was, therefore, not performed. Performed By: #### H IV4, HCVQ, LIPD2, HEMDF, CMP3 #### [facility] [employer] [address] [address] #### TSTMO, HPCGO #### The performing lab is in the report. HIV ScreenOrdered By: Mechelle Reardon on 10-02-2020 HIV 1+2 AB+[id number] AG, EIA Non-Reactive Nonreactive NA [facility] Work Phone: Comment on above: The specimen was non -reactive for HIV-1 and HIV-2 antibodies and p24 antigen using an FDA-cleared 4th generation HIV test. Based on this non-reactive screen result, further reflexive testing was not indicated and was, therefore, not performed. Test Performed by [facility], [address] [place] [address] [facility] Work Phone: [phone] [facility] Work Phone: Hemogram w/ Autodiffon 10-02 Abs Baso Cnt 0.0 10*3/uL Normal 0.0-0.2 [facility] Comment on above: Performed By: #### H IV4, HCVQ, LIPD2, HEMDF, CMP3 #### [place] [address] #### TSTMO, HPCGO #### The performing lab is in the report. Abs Neutrophile Cnt 1.8 10*3/uL Normal 1.8-7.0 [facility] Comment on above: Performed By: #### H IV4, HCVQ, LIPD2, HEMDF, CMP3 #### [place] [address] #### TSTMO, HPCGO #### The performing lab is in the report. Basophils/100 WBC (Bld) 0.7 % Normal 0.0-2.0 [facility] Comment on above: Performed By: #### H IV4, HCVQ, LIPD2, HEMDF, CMP3 #### [address] [address] #### TSTMO, HPCGO #### The performing lab is in the report. Eosinophils (Bld) [#/Vol] 0.1 10*3/uL Normal 0.0-0.5 [facility] Comment on above: Performed By: #### H IV4, HCVQ, LIPD2, HEMDF, CMP3 #### [place] [address] #### TSTMO, HPCGO #### The performing lab is in the report. Eosinophils/100 WBC (Bld) 3.3 % Normal 1.0-6.0 [facility] Comment on above: Performed By: #### H IV4, HCVQ, LIPD2, HEMDF, CMP3 #### [place] [address] #### TSTMO, HPCGO #### The performing lab is in the report. Erythrocyte distribution width (RBC) [Ratio] 14.3 % Normal 11.5-14.5 [facility] Comment on above: Performed By: #### H IV4, HCVQ, LIPD2, HEMDF, CMP3 #### [address] #### TSTMO, HPCGO #### The performing lab is in the report. Granulocytes/100 WBC (Bld) 42.1 % Normal 40.0-80.0 [facility] Comment on above: Performed By: #### H IV4, HCVQ, LIPD2, HEMDF, CMP3 #### [address] #### TSTMO, HPCGO #### The performing lab is in the report. Hematocrit (Bld) [Volume fraction] 47.0 % Normal 40.0-52.0 [facility] Comment on above: Performed By: #### H IV4, HCVQ, LIPD2, HEMDF, CMP3 #### [address] #### TSTMO, HPCGO #### The performing lab is in the report. Hemoglobin (Bld) [Mass/Vol] 16.1 g/dL Normal 13.0-18.0 [facility] Comment on above: Performed By: #### H IV4, HCVQ, LIPD2, HEMDF, CMP3 #### [address] #### TSTMO, HPCGO #### The performing lab is in the report. Lymphocytes (Bld) [#/Vol] 1.9 10*3/uL Normal 1.0-4.3 [facility] Comment on above: Performed By: #### H IV4, HCVQ, LIPD2, HEMDF, CMP3 #### [address] #### TSTMO, HPCGO #### The performing lab is in the report. Lymphocytes/100 WBC (Bld) 45.4 % High 20.0-40.0 [facility] Comment on above: Performed By: #### H IV4, HCVQ, LIPD2, HEMDF, CMP3 #### [place] [address] [address] [place], [place] #### TSTMO, HPCGO #### The performing lab is in the report. MCH (RBC) [Entitic mass] 33.9 pg Normal 26.0-34.0 [facility] Comment on above: Performed By: #### H IV4, HCVQ, LIPD2, HEMDF, CMP3 #### [place] [address] [place], [place] #### TSTMO, HPCGO #### The performing lab is in the report. MCHC 34.3 % Normal 32.0-36.0 [facility] Comment on above: Performed By: #### H IV4, HCVQ, LIPD2, HEMDF, CMP3 #### [address] #### TSTMO, HPCGO #### The performing lab is in the report. MCV (RBC) [Entitic vol] 98.7 fL High 80.0-98.0 [facility] Comment on above: Performed By: #### H IV4, HCVQ, LIPD2, HEMDF, CMP3 #### [address] #### TSTMO, HPCGO #### The performing lab is in the report. Monocytes (Bld) [#/Vol] 0.4 10*3/uL Normal 0.0-0.8 [facility] Comment on above: Performed By: #### H IV4, HCVQ, LIPD2, HEMDF, CMP3 #### [address] #### TSTMO, HPCGO #### The performing lab is in the report. Monocytes/100 WBC (Bld) 8.5 % Normal 2.0-10.0 [facility] Comment on above: Performed By: #### H IV4, HCVQ, LIPD2, HEMDF, CMP3 #### [address] #### TSTMO, HPCGO #### The performing lab is in the report. Platelet mean volume (Bld) [Entitic vol] 8.6 fL Normal 7.4-10.4 [facility] Comment on above: Performed By: #### H IV4, HCVQ, LIPD2, HEMDF, CMP3 #### [address] #### TSTMO, HPCGO #### The performing lab is in the report. Platelets (Bld) [#/Vol] 134 10*3/uL Low 140-440 [facility] Comment on above: Performed By: #### H IV4, HCVQ, LIPD2, HEMDF, CMP3 #### [address] #### TSTMO, HPCGO #### The performing lab is in the report. RBC (Bld) [#/Vol] 4.76 10*6/uL Normal 4.40-5.90 [facility] Comment on above: Performed By: #### H IV4, HCVQ, LIPD2, HEMDF, CMP3 #### [address] #### TSTMO, HPCGO #### The performing lab is in the report. WBC (Bld) [#/Vol] 4.2 10*3/uL Normal 3.6-10.7 [facility] Comment on above: Performed By: #### H IV4, HCVQ, LIPD2, HEMDF, CMP3 #### [address] #### TSTMO, HPCGO #### The performing lab is in the report. Hepatitis C RNA Quanton 07-2 Note Interpretation Normal [facility] Comment on above: Result Comment: The linear detection limit for this assay is 15 HCV IU/ml. A result of <15 IU (<1.18 log IU) indicates that HCV was detected, but at a level below the linear cutoff. A result of None Detected means that no HCV RNA was detected. Performed By: #### H IV4, HCVQ, LIPD2, HEMDF, CMP3 #### [place] [address] [address] [place], [place] #### TSTMO, HPCGO #### The performing lab is in the report. Lipid Panelon 10-02-2020 Chol/HDL 3 Normal [facility] Comment on above: Result Comment: Ref Range: < 3 Low Risk for CHD 3-6 Mod Risk for CHD > 6 High Risk for CHD Performed By: #### H IV4, HCVQ, LIPD2, HEMDF, CMP3 #### [place] [address] [address] [place], [place] #### TSTMO, HPCGO #### The performing lab is in the report. Cholesterol in HDL [Mass/Vol] 55 mg/dL Normal 40-60 [facility] Comment on above: Performed By: #### H IV4, HCVQ, LIPD2, HEMDF, CMP3 #### [place] [address] [place], [place] #### TSTMO, HPCGO #### The performing lab is in the report. Low Density Lipoprotein 107 mg/dL Abnormal <100 [facility] Comment on above: Performed By: #### H IV4, HCVQ, LIPD2, HEMDF, CMP3 #### [place] [address] [place], [place] #### TSTMO, HPCGO #### The performing lab is in the report. Triglyceride [Mass/Vol] 97 mg/dL Normal <150 [facility] Comment on above: Performed By: #### H IV4, HCVQ, LIPD2, HEMDF, CMP3 #### [place] [address] [place], [place] #### TSTMO, HPCGO #### The performing lab is in the report. Cholesterol [Mass/Vol] 181 mg/dL Normal < 200 [facility] Comment on above: Performed By: #### H IV4, HCVQ, LIPD2, HEMDF, CMP3 #### [place] [address] [place], [place] #### TSTMO, HPCGO #### The performing lab is in the report. Lipid PanelOrdered By: Mechelle Reardon on 10-02-2020 Cholesterol [Mass/Vol] 181 mg/dL <200 [employer] Work Phone: Cholesterol in HDL [Mass/Vol] 55 mg/dL 40 - 60 mg/dL [facility] Work Phone: Cholesterol in LDL [Mass/Vol] 107 mg/dL Abnormal <100 [facility] Work Phone: Cholesterol.total/Chol esterol in HDL [Mass ratio] 3 {ratio} [facility] Work Phone: Comment on above: Ref Range: < 3 Low Risk for CHD 3-6 Mod Risk for CHD > 6 High Risk for CHD Triglyceride [Mass/Vol] 97 mg/dL <150 [facility] Work Phone: No Panel InformationOrdered By: Mechelle Reardon on 10-02-2020 Interpretation and review of laboratory results Abnormal [facility] Work Phone: Test Performed by [address] [address] [facility] Work Phone: [facility] Work Phone: .Auto Diffon 10-29-2017 Ammonia mass conc (P) 1.10 10 3/mcL Normal 0.09-1.40 [facility] ([place]) Comment on above: Performed By: #### C BC, ADIFF, ANEU, CMP, GFR, ERDS ####[address] [address] Basophils Auto #/vol (Bld) 0.10 10 3/mcL Normal 0.00-0.27 [facility] ([place]) Comment on above: Performed By: #### C BC, ADIFF, ANEU, CMP, GFR, ERDS ####[place] [id number] [place] [address] Basophils/100 WBC Auto (Bld) 0.4 % Normal 0.0-2.5 [facility] ([place]) Comment on above: Performed By: #### C BC, ADIFF, ANEU, CMP, GFR, ERDS ####[address] [address] Eosinophils Auto #/vol (Bld) 0.00 10 3/mcL Normal 0.00-0.65 [facility] ([place]) Comment on above: Performed By: #### C BC, ADIFF, ANEU, CMP, GFR, ERDS ####[address] [address] Eosinophils/100 WBC Auto (Bld) 0.3 % Normal 0.0-6.0 [facility] ([place]) Comment on above: Performed By: #### C BC, ADIFF, ANEU, CMP, GFR, ERDS ####[address] [address] Lymphocytes Auto #/vol (Bld) 1.90 10 3/mcL Normal 0.90-4.32 [facility] ([place]) Comment on above: Performed By: #### C BC, ADIFF, ANEU, CMP, GFR, ERDS ####[address] [address] Lymphocytes/100 WBC Auto (Bld) 13.6 % Low 20.0-40.0 [facility] ([place]) Comment on above: Performed By: #### C BC, ADIFF, ANEU, CMP, GFR, ERDS ####[address] [address] Monocytes/100 WBC Auto (Bld) 7.9 % Normal 2.0-13.0 [facility] ([place]) Comment on above: Performed By: #### C BC, ADIFF, ANEU, CMP, GFR, ERDS ####[address] [address] Neutrophils/100 WBC Auto (Bld) 77.8 % High 50.0-75.0 [facility] ([place]) Comment on above: Performed By: #### C BC, ADIFF, ANEU, CMP, GFR, ERDS ####[address] [address] .GFRon 10-29-2017 GFR Non- >60 Normal [facility] ([place]) Comment on above: Result Comment: GFR Population [...] C BC, ADIFF, ANEU, CMP, GFR, ERDS ####[place] [address] GFR >60 Normal [facility] ([place]) Comment on above: Result Comment: GFR Population [...] C BC, ADIFF, ANEU, CMP, GFR, ERDS ####[address] [address] .NEUABSon 10-29-2017 Neutrophil, Absolute 11.20 10 3/mcL High 2.25-8.10 [facility] ([place]) Comment on above: Performed By: #### C BC, ADIFF, ANEU, CMP, GFR, ERDS ####[address] [address] CBCon 10-29-2017 Erythrocyte distribution width Auto Ratio (RBC) 13.2 % Normal 11.5-15.5 [facility] ([place]) Comment on above: Performed By: #### C BC, ADIFF, ANEU, CMP, GFR, ERDS ####[place] [address] Hematocrit Auto Volume Fraction (Bld) 46.2 % Normal 40.0-52.0 [facility] ([place]) Comment on above: Performed By: #### C BC, ADIFF, ANEU, CMP, GFR, ERDS ####[place] [address] Hemoglobin mass conc (Bld) 15.9 G/dL Normal 13.0-17.5 [facility] ([place]) Comment on above: Performed By: #### C BC, ADIFF, ANEU, CMP, GFR, ERDS ####[place] [address] MCH Auto Entitic mass (RBC) 32.7 pg Normal 27.0-33.0 [facility] ([place] Comment on above: Performed By: #### C BC, ADIFF, ANEU, CMP, GFR, ERDS ####[place] [address] MCHC Auto mass conc (RBC) 34.4 G/dL Normal 32.0-36.0 [facility] ([place] Comment on above: Performed By: #### C BC, ADIFF, ANEU, CMP, GFR, ERDS ####[place] [address] MCV Auto Entitic volume (RBC) 95.1 fL Normal 81.0-100.0 [facility] ([place]) Comment on above: Performed By: #### C BC, ADIFF, ANEU, CMP, GFR, ERDS ####[place] [address] Platelet mean volume Auto Entitic volume (Bld) 7.5 fL Normal 6.4-10.5 [facility] ([place] Comment on above: Performed By: #### C BC, ADIFF, ANEU, CMP, GFR, ERDS ####[place] [address] Platelets Auto #/vol (Bld) 186 10 3/mcL Normal 150-450 [facility] ([place] Comment on above: Performed By: #### C BC, ADIFF, ANEU, CMP, GFR, ERDS ####[place] [address] RBC Auto #/vol (Bld) 4.86 10 6/mcL Normal 4.50-6.00 [facility] ([place]) Comment on above: Performed By: #### C BC, ADIFF, ANEU, CMP, GFR, ERDS ####[place] [address] WBC Auto #/vol (Bld) 14.40 10 3/mcL High 4.50-10.80 [facility] ([place] Comment on above: Performed By: #### C BC, ADIFF, ANEU, CMP, GFR, ERDS ####[place] [address] CMPon 10-29-2017 Albumin/Globulin mass ratio 1.2 {ratio} Normal 0.9-1.6 [facility] ([place]) Comment on above: Performed By: #### C BC, ADIFF, ANEU, CMP, GFR, ERDS ####[place] [address] ALP enzyme act/vol 79 U/L Normal 38-126 [facility] ([place]) Comment on above: Performed By: #### C BC, ADIFF, ANEU, CMP, GFR, ERDS ####[place] [address] ALT enzyme act/vol 88 U/L High 12-55 [facility] ([place]) Comment on above: Performed By: #### C BC, ADIFF, ANEU, CMP, GFR, ERDS ####[place] [address] AST enzyme act/vol 116 U/L High 8-34 [facility] ([place]) Comment on above: Performed By: #### C BC, ADIFF, ANEU, CMP, GFR, ERDS ####[place] [address] Bili Total 1.5 mg/dL High 0.2-1.2 [facility] ([place]) Comment on above: Performed By: #### C BC, ADIFF, ANEU, CMP, GFR, ERDS ####[address] [address] Creatinine mass conc 1.06 mg/dL Normal 0.60-1.40 [facility] ([place]) Comment on above: Performed By: #### C BC, ADIFF, ANEU, CMP, GFR, ERDS ####[address] [address] Globulin Calculated mass conc (S) 3.9 G/dL High 1.5-3.8 [facility] ([place]) Comment on above: Performed By: #### C BC, ADIFF, ANEU, CMP, GFR, ERDS ####[place] [address] Protein mass conc 8.6 G/dL High 6.0-8.5 [facility] ([place]) Comment on above: Performed By: #### C BC, ADIFF, ANEU, CMP, GFR, ERDS ####[place] [id number] Urea nitrogen/Creatinine mass ratio 27.4 ratio High 10.0-22.0 [facility] ([place]) Comment on above: Performed By: #### C BC, ADIFF, ANEU, CMP, GFR, ERDS ####[place] [address] Albumin mass conc 4.7 G/dL Normal 3.2-4.8 [facility] ([place]) Comment on above: Performed By: #### C BC, ADIFF, ANEU, CMP, GFR, ERDS ####[place] [address] Calcium mass conc 9.3 mg/dL Normal 8.4-10.1 [facility] ([place]) Comment on above: Performed By: #### C BC, ADIFF, ANEU, CMP, GFR, ERDS ####[place] [address] Chloride molar conc 100 mmol/L Normal 98-110 [facility] ([place]) Comment on above: Performed By: #### C BC, ADIFF, ANEU, CMP, GFR, ERDS ####[place] [address] CO2 molar conc 26 mmol/L Normal 22-32 [facility] ([place]) Comment on above: Performed By: #### C BC, ADIFF, ANEU, CMP, GFR, ERDS ####[place] [address] Electrolyte Balance 12.0 mEq/L Normal 4.0-15.0 [facility] ([place]) Comment on above: Performed By: #### C BC, ADIFF, ANEU, CMP, GFR, ERDS ####[place] [address] Glucose mass conc 76 mg/dL Normal 70-110 [facility] ([place] Comment on above: Performed By: #### C BC, ADIFF, ANEU, CMP, GFR, ERDS ####[place] [address] Potassium molar conc 4.4 mmol/L Normal 3.5-5.0 [facility] ([place]) Comment on above: Performed By: #### C BC, ADIFF, ANEU, CMP, GFR, ERDS ####[place] [address] Sodium molar conc 138 mmol/L Normal 136-145 [facility] ([place]) Comment on above: Performed By: #### C BC, ADIFF, ANEU, CMP, GFR, ERDS ####[place] [address] Urea nitrogen mass conc 29.0 mg/dL High 8.0-22.0 [facility] ([place]) Comment on above: Performed By: #### C BC, ADIFF, ANEU, CMP, GFR, ERDS ####[place] [address] ED Note-Provideron 8 Protein mass conc Normal [facility] ([place]) ERDSon 10-29-2017 Acetaminophen mass conc <2.0 Low 10.0-30.0 [facility] ([place]) Comment on above: Performed By: #### C BC, ADIFF, ANEU, CMP, GFR, ERDS ####[place] [id number] ER Drug Screen (s) Negative Normal [facility] ([place]) Comment on above: Performed By: #### C BC, ADIFF, ANEU, CMP, GFR, ERDS ####[place] [address] ER Drug Screen Interp Serum shows no ksenia dence of drugs routinely screened Invalid Interpretation Code [facility] ([place]) Comment on above: Performed By: #### C BC, ADIFF, ANEU, CMP, GFR, ERDS ####[place] [address] ER Serum Drugs Screened: See Below Normal [facility] ([place]) Comment on above: Result Comment: This drug screen is a presumptive screening only. No confirmation will be performed unless requested.Drugs included in the ER serum drug screen are: ThresholdEthanol 10.0 mg/dLSalicylate 2.0 mg/dLAcetaminophen 2.0 mcg/mLTricyclic Antidepressants 300 ng/mLTesting has been performed FOR MEDICAL PURPOSES ONLY. Performed By: #### C BC, ADIFF, ANEU, CMP, GFR, ERDS ####[place] [address] Salicylate Lvl (ds) <2.0 Low 10.0-25.0 [facility] ([place]) Comment on above: Performed By: #### C BC, ADIFF, ANEU, CMP, GFR, ERDS ####[place] [address] TCA (s) Negative Normal [facility] ([place]) Comment on above: Performed By: #### C BC, ADIFF, ANEU, CMP, GFR, ERDS ####[place] [address] Ethanol Level <10.0 Normal [facility] ([place]) Comment on above: Performed By: #### C BC, ADIFF, ANEU, CMP, GFR, ERDS ####[place] [address] Patient Summary Documentson 10-29-2017 Patient Summary Documents Normal [facility] ([place]) ED DOCon 10-23-2017 ED DOC PHYSI SHWETA ASSESSMENT =====RECORDS: Discharge ReportEvent Time: 10/23/2017 07:55: FlexChartDataEvent Time: 10/23/2017 07:50Status: [facility] CItychristine Cody [[id number]] Attending Pocyxluka39 / M / 02/11/TahirChart (V2b)Chart created at 10/23/2017 07:45 by Francois Bergman closed at 10/23/2017 07:54Entry in Emergency Department at 10/23/2017 06:54Patient Name: Raheem Cody Record Number: [id number]: 10/23/2017 07:45 EnteredDepartment at: 10/23/2017 06:54 Patient Seen at:10/23/2017 07:05 Historian: PatientPCP: *None,.Chief Complaint:depressed/ states that he feels confused/denies SI/HI/ states that he has family issuescurrently/ states he was at [facility] for withdrawfrom opiates in 2009./Triage Note reviewed and Initial Vital Signs reviewed.Temperature: 98.2 F (36.8 C). Pulse: 102. Respiratory Rate:16. Blood-pressure:122/86. Oxygen Saturation: 99% room air; Normal.History of Present Illness:42-Year-old male comes in for further evaluation. Patientstates that he is depressed. He denies suicidaland homicidal ideation. States that his grandparents [facility] PATIENT NAME: RAHEEM CODY [address] MEDICAL REC #: [id number], [place] [address] DEPARTMENT CHART EMERGENCY DEPARTMENT PHYSICIAN evicted him and he currently does not have anyvertigo. He has been on and off drugs for the past severalyears. He has been in senior care because of drugs.He feels that people are [...] No rash Psychological: Mood/Affect NormalMedical Decision Making [facility] PATIENT NAME: RAHEEM CODY [facility] [address] MEDICAL REC #: [id number], [place] [address] DEPARTMENT CHART EMERGENCY DEPARTMENT PHYSICIANThe patient has [...] Condition: StableMSE completed.I was the primary ED attending.. ===DISCHARGE REPORT===: Discharge ReportEvent Time: 10/23/2017 07:55Status: DraftReasons [...] timeframe for follow-up. Pleasefollow all your discharge instructions.Medications: [facility] PATIENT NAME: RAHEEM CODY [facility] [address] Alex[address] MEDICAL REC #: [id number], [place] [address] DEPARTMENT CHART EMERGENCY DEPARTMENT PHYSICIANUnless the ER doctor tells you differently, you should takeall your regular medications and any newmedications prescribed today. Because it is not possiblefor the ER doctor to review all of yourmedication side effects or interactions, you must reviewpossible side effects and interactions with yourpharmacist when you get your prescriptions filled.EKG and Radiology Results:A front desk person or radiologist will review any EKG orradiology [...] so that theyare aware and can make suggestionsDIAGNOSIS:Depr ession, History of drug abuseINSTRUCTIONS:Return to the ER [...] a possiblemedication adjustment and a follow-up appointment [facility] PATIENT NAME: RAHEEM CODY A[address]Aditya[address] [facility] [address] Alexis MEDICAL REC #: [id number], [place] [address] DEPARTMENT CHART EMERGENCY DEPARTMENT PHYSICIANwith a mental health professional. All of these mentalhealth problems are made worse by using alcohol orstreet drugs. You must use all of your regular medicationsplus all the medications that were given toyou today.If you have any more questions or concerns you may call [facility] ([phone]) or [facility] ([phone] and ask the quill picking machine operator for thePsychiatric Triage Nurse). At this time [facility] does not admit psychiatric patients age 17 [...] pass out, have a seizure orstart having hallucinationsREFERRALCRI [facility] , Address: [address] [place], [place] [id number], Please call the above number to schedule a follow-upappointment.[facility] , Address: [address] [place] [address] ([address]) [place] [phone], Please call the above number to schedule a follow-upappointment.2-3 days [facility] PATIENT NAME: RAHEEM CODY A[address]Aditya[address] [facility] [address] Alexis MEDICAL REC #: [id number], [place] [address] DEPARTMENT CHART EMERGENCY DEPARTMENT PHYSICIANMEDICATIONSWe have given you these prescriptions that you must filland start taking:NoneCOMMENTS:Patie nt Satisfaction:Within the first few days after your [...] below indicates consent for Case Managementto contact [facility] providers in [facility] to meet your ongoing healthcare needs. This willallow forcontinuity of care once you leave theEmergency Department. This exchange of informationwillinclude, but not be limited to, disclosure of yourpatient information and possible release of records.: FlexChartDataEvent Time: 10/23/2017 07:50 DEMOGRAPHICS =======Emergisoft Patient: RAHEEM QUINONESex: MDOB: 1975Age: 42 yrAccount No: [id number]: [id number] [facility] PATIENT NAME: [facility]ODY [facility] [facility] REC #: [id number], [place] [address] DEPARTMENT CHART EMERGENCY DEPARTMENT PHYSICIANRegistration Date: 06:54 10/23/2017Address: [address]: [place] [address] REGISTRATION =======ED Number: [id number]: Marital Status: SFinancial Class: CAIDHMO ==TRIAGE ===Priority: 3 - UrgentComplaint: DepressionStated Complaint: depressed/ states that he feelsconfused/ denies SI/HI/ states that he has family issuescurrently/ states he was at [facility] for withdrawfrom opiates in 2009./Arrival Date: 10/23/2017 06:54Triage Date: 10/23/2017 06:55Mode of Arrival: *Privately Owned VehicleWC: NLanguage: EnglishTransport: Ambulatory/Walk In BED A04 In: 10/23/2017 07:03:23 10/23/201707:03:23 JBFA04 (Removed From) Out: 10/23/2017 09:02:39010/23/2017 09:02:39 DGP ND OVIDERS ==MD Francois Barrow Provider Contact: 10/23/2017 07:05:13LRSEnd: [facility] PATIENT NAME: RAHEEM CODY [address] [facility] [address] MEDICAL REC #: [id number], [place] [address] DEPARTMENT CHART EMERGENCY DEPARTMENT PHYSICIAN ====TRIAGE HISTORY ==ALLERGIESAllergic To: pcn - Anaphylactic Reaction 10/23/201707:03 JBFCURRENT MEDSName: nerve pill po prn unk name 10/23/2017 07:03 JBFILLNESSIllness: Other Medical rapid recycling bipolardisorder 10/23/2017 07:03 JBFIllness: Depression 10/23/2017 07:03 JBFIllness: Anxiety 10/23/2017 07:03 JBFPAST SURGERY HISTSurgery: right hand 10/23/2017 07:03 JBFPAST SOCIAL HISTSocial History: Communicates without bglpnutxzl69/18/2018 07:03 JBFSocial History: Lives with family or significant other10/23/2017 07:03 JBFSocial History: Alcohol - None 10/23/2017 07:03 JBFSocial History: Recreational Drugs - Hllvhjljxd07/18/2018 07:03 JBFSocial History: Smoker-1 PPD 10/23/2017 07:03 JBFSocial History: Denies Domestic Violence 10/23/201707:03 JBFSocial History: Denies thoughts of self harm.10/23/2017 07:03 JBFSocial History: Have you traveled in the past month?Where n 10/23/2017 07:03 JBFIMMUNIZATIONSImmunizat ion: Flu Vaccine-no 10/23/2017 07:03 JBF [facility] PATIENT NAME: RAHEEM CODY A1Aditya0 [facility] [address] MEDICAL REC #: [id number], [place] [address] DEPARTMENT CHART EMERGENCY DEPARTMENT PHYSICIAN ====NURSING ASSESSMENT ASSESSMENT NOTES 10/23/2017 07:12 alert to person, place, time andsituation, admits to depression, and skin warm and dry,also opiate use and wants help. denies any suicidal orhomicidal ideations ,plans or intent, 10/23/2017 07:23 DGP10/23/2017 08:04 Spoke to pt who stated he came herebecause he wanted to get back in to [facility] he had beenwith them in past. Pt states he lives in [place] withhis grandparents for past yr. He was [...] psych and no current treatmenthad went to [facility] for Amphetamine psychosis. Pt doesadmit he used [...] psych facility and he plans tofollow with [facility]. Pt given referral sheet area mentalhealth agencies and walk in apt for [facility]. Pt alsoinformed if crisis center and 24 hr evaluations and hotline. Pt also given referrals for drug treatment programsand [facility] and [facility]. Pt verbalized understandingand denies any further needs. Discussed with Dr Barrowregarding the above. 10/23/2017 08:19 TSK TR EATMENT ==10/23/2017 07:09 Patient Interaction - Allergy Band onPt. 10/23/2017 07:12 DGP [facility] PATIENT NAME: RAHEEM CODY [facility] [address] Alex[address] MEDICAL REC #: [id number], [place] [address] DEPARTMENT CHART EMERGENCY DEPARTMENT MGWOWHBNR91/18/2018 07:09 Staff/ Patient Interaction -Introduced self and assessed patients needs. 10/23/201707:12 DGPNotes: name band on and bed locked in the low yvitbtht57/18/2018 07:09 Staff/ Patient Interaction - Siderails up X2 and call light placed within reach. 10/23/201707:12 DGP10/23/2017 07:09 Primary DOC Guide - A. 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 MEDICAL REC #: [id number], [place] [address] DEPARTMENT CHART EMERGENCY DEPARTMENT QNUCDMLQU01/18/2018 07:11 Primary DOC Guide - E. Family [...] now: NoFamily Violence Clinical Observation All Negative Sqbjof1610/23/2017 09:01 Admit/Discharge - Ambulated withsteady gait home 10/23/2017 09:02 [facility]10/23/2017 09:02 Admit/Discharge - Discharge infomationreviewed with pt 10/23/2017 09:02 DG10/23/2017 09:02 Admit/Discharge - Dischargeinstruction reviewed 10/23/2017 09:02 DGP ME DICATIONS I V I AND O VITALS=== VS-ROUTI NE Time: 10/23/2017 06:55B/P: 122/86 - Right Upper Arm - Sitting - MachinePulse: 102 - Monitor Resp: 16Sa02: 99 Room Air Temp: 98.20 F - Oral10/23/2017 07:03 JBFVS-Pain Time: 10/23/2017 06:55 Pain Level: 07:03 JBFVS-GCS Time: 10/23/2017 06:55 Visual: 4 Verbal: 5 Motor:6 GCS Total: 15 10/23/2017 07:03 JBFVS-HT/WT Time: 10/23/2017 06:55 Ht: 70 in. StatedWeight: 155 lbs Actual 10/23/2017 07:03 JBFVS-Visual Time: 10/23/2017 06:55 10/23/2017 07:03 JBF [facility] PATIENT NAME: RAHEEM CODY [facility] [address] [address] MEDICAL REC #: [id number], [place] [address] DEPARTMENT CHART EMERGENCY DEPARTMENT PHYSICIANVS-FHT Time: 10/23/2017 [...] Time: 10/23/2017 09:00 map 93 10/23/201709:01 DGP OR DERS D ischarge patient 10/23/2017 08:28N/AOrdered: 10/23/2017 07:54 By . OtherReviewed: 10/23/2017 08:28 By . OtherConsult Psych Triage 10/23/2017 08:05N/AOrdered: 10/23/2017 07:31 By Francois BarrowCompleted Time: 10/23/2017 08:05 By Francois Barrow DISCHARGE ====Diagnosis: Depression, History of drug abuse10/23/2017 08:28CANCELLED DIAGNOSESDiagnosis Name: Depression, History of drug abuseDisposition: Time: 10/23/2017 07:54By: Francois BarrowDisbill Time: 10/23/2017 09:02Type: DischargeCondition: Stable for admission/discharge/trans anderson [facility] PATIENT NAME: RAHEEM CODY A[address]Aditya[address] [facility] [address] MEDICAL REC #: [id number], [place] [address] DEPARTMENT CHART EMERGENCY DEPARTMENT PHYSICIANafter emergency evaluation/treatment Category: *NOTAPPLICABLEConcurred: 10/23/2017 08:28 Referral:10/23/2017 08:28Admit Physician: . Other PRESCRIPTIONS ===CHARGES SIGNATURE ====Nany WREN RN JBEneida [facility] PATIENT NAME: RAHEEM CODY [address] [facility] [address] [facility] REC #: [id number], [place] [address] DEPARTMENT CHART EMERGENCY DEPARTMENT PHYSICIAN [facility] ED Documentation This is a preliminar y report only, as the practitioner review and authentication has not occurred. [facility] Downtime Reporton 08-25-2017 Downtime Report [facility] [address] [facility] [place], [place] [address]Ouhlrnvn ReportMR#: [id number] Acct: [id number]: RAHEEM CODY Rep #: [id number]: 1975 42 From: Sebatsien Moran [facility]: Status: DEP ERThis patient was seen during an EMR downtime August 09, 2017 - August 16, 2017. This patient mayhave a combination of paper and electronic documentation or all paper documentation. Alldocumentation is viewable within the e-chart portion of [employer] for each patient visit. Normal [facility] Vital Signs Date Time Vital Sign Value Performing Clinician Facility 12-14-2024 13:01-0400 Diastolic blood pressure 100 mm[Hg] Sebastien Warren Work Phone: [facility] 12-14-2024 13:01-0400 Heart rate 91 /min Sebastien Warren Work Phone: [facility] 12-14-2024 13:01-0400 Systolic blood pressure 137 mm[Hg] Sebastien Warren Work Phone: [facility] 12-06-2024 13:05-0400 Diastolic blood pressure 69 mm[Hg] Sebastien Warren Work Phone: [facility] 12-06-2024 13:05-0400 Heart rate 81 /min Sebastien Warren Work Phone: [facility] 12-06-2024 13:05-0400 Systolic blood pressure 120 mm[Hg] Sebastien Warren Work Phone: [facility] 11-28-2024 13:47-0400 Body height 177.8 cm Gold BRISENO Work Phone: [facility] 11-28-2024 13:47-0400 Body mass index (BMI) [Ratio] 23.24 kg/m2 Gold BRISENO Work Phone: [facility] 11-28-2024 13:47-0400 Body weight 73.48 kg Gold BRISENO Work Phone: [facility] 11-28-2024 13:47-0400 Diastolic blood pressure 80 mm[Hg] Gold BRISENO Work Phone: [facility] 11-28-2024 13:47-0400 Heart rate 80 /min Gold BRISENO Work Phone: [facility] 11-28-2024 13:47-0400 Respiratory rate 20 /min Gold BRISENO Work Phone: [facility] [employer] [facility] 11-28-2024 13:47-0400 Systolic blood pressure 114 mm[Hg] Gold BRISENO Work Phone: [facility] 11-17-2024 10:43-0400 Body height 177.8 cm Carrington Fritz MD Work Phone: [facility] 11-17-2024 10:43-0400 Body mass index (BMI) [Ratio] 23.3 kg/m2 Carrington Fritz MD Work Phone: [facility] [employer] [facility] 11-17-2024 10:43-0400 Body weight 73.66 kg Carrington Fritz MD Work Phone: [facility] 11-17-2024 10:43-0400 Diastolic blood pressure 73 mm[Hg] Carrington Fritz MD Work Phone: [facility] 11-17-2024 10:43-0400 Heart rate 86 /min Carrington Fritz MD Work Phone: [facility] [employer] [facility] 11-17-2024 10:43-0400 Systolic blood pressure 110 mm[Hg] Carrington Fritz MD Work Phone: [facility] 10-31-2024 10:00-0400 Diastolic blood pressure 63 mm[Hg] David Vazquez MD Work Phone: [facility] 10-31-2024 10:00-0400 Heart rate 72 /min David Vazquez MD Work Phone: [facility] 10-31-2024 10:00-0400 Respiratory rate 18 /min David Vazquez MD Work Phone: [facility] 10-31-2024 10:00-0400 SaO2% (BldA) [Mass fraction] 97 % David Vazquez MD Work Phone: [facility] 10-31-2024 10:00-0400 Systolic blood pressure 108 mm[Hg] David Vazquez MD Work Phone: [facility] 10-31-2024 09:48-0400 Body temperature 96.8 [degF] David Vazquez MD Work Phone: [facility] 10-31-2024 09:08-0400 Body height 177.8 cm David Vazquez MD Work Phone: [facility] 10-31-2024 09:08-0400 Body mass index (BMI) [Ratio] 22.96 kg/m2 David Vazquez MD Work Phone: [facility] 10-31-2024 09:08-0400 Body weight 72.58 kg David Vazquez MD Work Phone: [facility] 10-24-2024 14:39-0400 Body height 177.8 cm Gisel Roland MD Work Phone: [facility] 10-24-2024 14:39-0400 Body mass index (BMI) [Ratio] 24.39 kg/m2 Gisel Roland MD Work Phone: [facility] 10-24-2024 14:39-0400 Body weight 77.11 kg Gisel Roland MD Work Phone: [facility] 10-24-2024 14:39-0400 Diastolic blood pressure 74 mm[Hg] Gisel Roland MD Work Phone: [facility] 10-24-2024 14:39-0400 Heart rate 64 /min Gisel Roland MD Work Phone: [facility] 10-24-2024 14:39-0400 Respiratory rate 17 /min Gisel Roland MD Work Phone: [facility] 10-24-2024 14:39-0400 Systolic blood pressure 115 mm[Hg] Gisel Roland MD Work Phone: [facility] 10-19-2024 14:54-0400 Body height 177.8 cm Gold Jones PA Work Phone: [facility] [employer] [facility] 10-19-2024 14:54-0400 Body mass index (BMI) [Ratio] 23.53 kg/m2 Gold Jones PA Work Phone: [facility] [employer] [facility] 10-19-2024 14:54-0400 Body weight 74.39 kg Gold Jones PA Work Phone: [facility] 10-19-2024 14:54-0400 Diastolic blood pressure 70 mm[Hg] Gold Jones PA Work Phone: [facility] [employer] [facility] 10-19-2024 14:54-0400 Heart rate 87 /min Gold Jones PA Work Phone: [facility] [employer] [facility] 10-19-2024 14:54-0400 Respiratory rate 16 /min Gold Jones PA Work Phone: [facility] 10-19-2024 14:54-0400 SaO2% (BldA) [Mass fraction] 97 % Gold Jones PA Work Phone: [facility] 10-19-2024 14:54-0400 Systolic blood pressure 130 mm[Hg] Gold Jones PA Work Phone: [facility] 10-17-2024 10:28-0400 Body height 177.8 cm Sofie Reed APRN.INSTRUCTOR TRAINER CANINE SERVICE Work Phone: [facility] [facility] 10-17-2024 10:28-0400 Body mass index (BMI) [Ratio] 23.65 kg/m2 Sofie Reed APRN.INSTRUCTOR TRAINER CANINE SERVICE Work Phone: [facility] 10-17-2024 10:28-0400 Body weight 74.75 kg Sofie Reed APRN.INSTRUCTOR TRAINER CANINE SERVICE Work Phone: [facility] 10-17-2024 10:28-0400 Diastolic blood pressure 66 mm[Hg] Sofie Reed APRN.INSTRUCTOR TRAINER CANINE SERVICE Work Phone: [facility] 10-17-2024 10:28-0400 Heart rate 62 /min Sofie Reed EDUCATIONAL PSYCHOLOGIST.INSTRUCTOR TRAINER CANINE SERVICE Work Phone: [facility] 10-17-2024 10:28-0400 SaO2% (BldA) [Mass fraction] 97 % Sofie Reed EDUCATIONAL PSYCHOLOGIST.INSTRUCTOR TRAINER CANINE SERVICE Work Phone: [facility] 10-17-2024 10:28-0400 Systolic blood pressure 113 mm[Hg] Sofie Reed EDUCATIONAL PSYCHOLOGIST.INSTRUCTOR TRAINER CANINE SERVICE Work Phone: [facility] 10-03-2024 13:24-0400 Body mass index (BMI) [Ratio] 24.85 kg/m2 Azeb An EDUCATIONAL PSYCHOLOGIST-INSTRUCTOR TRAINER CANINE SERVICE Work Phone: [facility] 10-03-2024 13:24-0400 Body weight 78.56 kg Azeb An EDUCATIONAL PSYCHOLOGIST-INSTRUCTOR TRAINER CANINE SERVICE Work Phone: [facility] 10-03-2024 13:24-0400 Diastolic blood pressure 81 mm[Hg] Azeb An EDUCATIONAL PSYCHOLOGIST-INSTRUCTOR TRAINER CANINE SERVICE Work Phone: [facility] 10-03-2024 13:24-0400 Heart rate 67 /min Azeb An EDUCATIONAL PSYCHOLOGIST-INSTRUCTOR TRAINER CANINE SERVICE Work Phone: [facility] 10-03-2024 13:24-0400 Systolic blood pressure 128 mm[Hg] Azeb An EDUCATIONAL PSYCHOLOGIST-INSTRUCTOR TRAINER CANINE SERVICE Work Phone: [facility] 09-22-2024 14:14-0400 Body temperature 97.5 [degF] Dre Wilde MD Work Phone: [facility] 09-22-2024 14:14-0400 Diastolic blood pressure 59 mm[Hg] Dre Wilde MD Work Phone: [facility] 09-22-2024 14:14-0400 Heart rate 71 /min Dre Wilde MD Work Phone: [facility] 09-22-2024 14:14-0400 Respiratory rate 17 /min Dre Wilde MD Work Phone: [facility] 09-22-2024 14:14-0400 SaO2% (BldA) [Mass fraction] 95 % Dre Wilde MD Work Phone: [facility] 09-22-2024 14:14-0400 Systolic blood pressure 102 mm[Hg] Dre Wilde MD Work Phone: [facility] 09-05-2024 14:33-0400 Body height 177.8 cm Carrington Fritz MD Work Phone: [facility] 09-05-2024 14:33-0400 Body mass index (BMI) [Ratio] 25 kg/m2 Carrington Fritz MD Work Phone: [facility] 09-05-2024 14:33-0400 Body temperature 97.3 [degF] Carrington Fritz MD Work Phone: [facility] 09-05-2024 14:33-0400 Body weight 79.02 kg Carrington Fritz MD Work Phone: [facility] 09-05-2024 14:33-0400 Diastolic blood pressure 80 mm[Hg] Carrington Fritz MD Work Phone: [facility] 09-05-2024 14:33-0400 Heart rate 82 /min Carrington Fritz MD Work Phone: [facility] 09-05-2024 14:33-0400 SaO2% (BldA) [Mass fraction] 94 % Carrington Fritz MD Work Phone: [facility] 09-05-2024 14:33-0400 Systolic blood pressure 132 mm[Hg] Carrington Fritz MD Work Phone: [facility] 08-18-2024 10:09-0400 Body mass index (BMI) [Ratio] 26.83 kg/m2 Carrington Fritz MD Work Phone: [facility] 08-18-2024 10:09-0400 Body weight 84.82 kg Carrington Fritz MD Work Phone: [facility] 08-18-2024 10:09-0400 Diastolic blood pressure 82 mm[Hg] Carrington Fritz MD Work Phone: [facility] 08-18-2024 10:09-0400 Heart rate 92 /min Carrington Fritz MD Work Phone: [facility] 08-18-2024 10:09-0400 Systolic blood pressure 119 mm[Hg] Carrington Fritz MD Work Phone: [facility] 08-15-2024 10:57-0400 Diastolic blood pressure 85 mm[Hg] Gold BRISENO Work Phone: [facility] 08-15-2024 10:57-0400 Heart rate 80 /min Gold BRISENO Work Phone: [facility] 08-15-2024 10:57-0400 Respiratory rate 18 /min Gold BRISENO Work Phone: [facility] 08-15-2024 10:57-0400 SaO2% (BldA) [Mass fraction] 98 % Gold BRISENO Work Phone: [facility] 08-15-2024 10:57-0400 Systolic blood pressure 102 mm[Hg] Gold BRISENO Work Phone: [facility] 07-06-2024 14:27-0400 Body height 177.8 cm Pacc 2 Work Phone: [facility] 07-06-2024 14:27-0400 Body mass index (BMI) [Ratio] 27.2 kg/m2 Pacc 2 Work Phone: [facility] 07-06-2024 14:27-0400 Body temperature 98.2 [degF] Pacc 2 Work Phone: [facility] 07-06-2024 14:27-0400 Body weight 86 kg Pacc 2 Work Phone: [facility] 07-06-2024 14:27-0400 Diastolic blood pressure 90 mm[Hg] Pacc 2 Work Phone: [facility] 07-06-2024 14:27-0400 Heart rate 66 /min Pacc 2 Work Phone: [facility] 07-06-2024 14:27-0400 Respiratory rate 16 /min Pacc 2 Work Phone: [facility] 07-06-2024 14:27-0400 SaO2% (BldA) [Mass fraction] 98 % Pacc 2 Work Phone: [facility] 07-06-2024 14:27-0400 Systolic blood pressure 141 mm[Hg] Pacc 2 Work Phone: [facility] 07-04-2024 12:36-0400 Diastolic blood pressure 91 mm[Hg] Gold BRISENO Work Phone: [facility] 07-04-2024 12:36-0400 Heart rate 80 /min Gold Jones PA Work Phone: [facility] 07-04-2024 12:36-0400 Respiratory rate 18 /min Gold Jones PA Work Phone: [facility] 07-04-2024 12:36-0400 SaO2% (BldA) [Mass fraction] 98 % Gold Jones PA Work Phone: [facility] 07-04-2024 12:36-0400 Systolic blood pressure 122 mm[Hg] Gold Jones PA Work Phone: [facility] 06-01-2024 10:27-0400 Body mass index (BMI) [Ratio] 27.58 kg/m2 Carrington Fritz MD Work Phone: [facility] 06-01-2024 10:27-0400 Body temperature 98.4 [degF] Carrington Fritz MD Work Phone: [facility] 06-01-2024 10:27-0400 Body weight 87.18 kg Carrington Fritz MD Work Phone: [facility] 06-01-2024 10:27-0400 Diastolic blood pressure 86 mm[Hg] Carrington Fritz MD Work Phone: [facility] 06-01-2024 10:27-0400 Heart rate 70 /min Carrington Fritz MD Work Phone: [facility] 06-01-2024 10:27-0400 SaO2% (BldA) [Mass fraction] 99 % Carrington Fritz MD Work Phone: [facility] 06-01-2024 10:27-0400 Systolic blood pressure 136 mm[Hg] Carrington Fritz MD Work Phone: [facility] 05-30-2024 11:51-0400 Diastolic blood pressure 87 mm[Hg] Gold BRISENO Work Phone: [facility] 05-30-2024 11:51-0400 Heart rate 80 /min Gold Jones PA Work Phone: [facility] 05-30-2024 11:51-0400 Respiratory rate 16 /min Gold Jones PA Work Phone: [facility] 05-30-2024 11:51-0400 Systolic blood pressure 128 mm[Hg] Gold Jones PA Work Phone: [facility] 05-22-2024 15:59-0400 Body height 177.8 cm Gabe Marin EDUCATIONAL PSYCHOLOGIST.INSTRUCTOR TRAINER CANINE SERVICE Work Phone: [facility] 05-22-2024 15:59-0400 Body mass index (BMI) [Ratio] 27.71 kg/m2 Gabe Marin EDUCATIONAL PSYCHOLOGIST.INSTRUCTOR TRAINER CANINE SERVICE Work Phone: [facility] 05-22-2024 15:59-0400 Body weight 87.6 kg Gabe Marin EDUCATIONAL PSYCHOLOGIST.INSTRUCTOR TRAINER CANINE SERVICE Work Phone: [facility] 05-03-2024 11:02-0500 Body height 177.8 cm Fran-Sarahi Vu DO Work Phone: [facility] 05-03-2024 11:02-0500 Body mass index (BMI) [Ratio] 28.07 kg/m2 Fran-Sarahi Vu DO Work Phone: [facility] 05-03-2024 11:02-0500 Body temperature 98.8 [degF] Fran-Sarahi Vu DO Work Phone: [facility] 05-03-2024 11:02-0500 Body weight 88.72 kg Fran-Sarahi Vu DO Work Phone: [facility] 05-01-2024 11:08-0500 Body mass index (BMI) [Ratio] 28.52 kg/m2 Carrington Fritz MD Work Phone: [facility] 05-01-2024 11:08-0500 Body temperature 98.2 [degF] Carrington Fritz MD Work Phone: [facility] 05-01-2024 11:08-0500 Body weight 90.17 kg Carrington Fritz MD Work Phone: [facility] 05-01-2024 11:08-0500 Diastolic blood pressure 101 mm[Hg] Carrington Fritz MD Work Phone: [facility] 05-01-2024 11:08-0500 Heart rate 87 /min Carrington Fritz MD Work Phone: [facility] 05-01-2024 11:08-0500 Systolic blood pressure 147 mm[Hg] Carrington Fritz MD Work Phone: [facility] 04-24-2024 13:47-0500 Body height 177.8 cm Gabe Marin APRN.INSTRUCTOR TRAINER CANINE SERVICE Work Phone: [facility] 04-24-2024 13:47-0500 Body mass index (BMI) [Ratio] 27.84 kg/m2 Gabe Marin EDUCATIONAL PSYCHOLOGIST.INSTRUCTOR TRAINER CANINE SERVICE Work Phone: [facility] 04-24-2024 13:47-0500 Body weight 88 kg Gabe Marin ANDREE Work Phone: [facility] 04-14-2024 09:46-0500 Body mass index (BMI) [Ratio] 26.69 kg/m2 Jose R Aquino MD Work Phone: [facility] 04-14-2024 09:46-0500 Body temperature 98.6 [degF] Jose R Aquino MD Work Phone: [facility] 04-14-2024 09:46-0500 Body weight 84.37 kg Jose R Aquino MD Work Phone: [facility] 04-14-2024 09:46-0500 Diastolic blood pressure 85 mm[Hg] Jose R Aquino MD Work Phone: [facility] 04-14-2024 09:46-0500 Heart rate 76 /min Jose R qAuino MD Work Phone: [facility] 04-14-2024 09:46-0500 Respiratory rate 18 /min Jose R Aquino MD Work Phone: [facility] 04-14-2024 09:46-0500 SaO2% (BldA) [Mass fraction] 100 % Jose R Aquino MD Work Phone: [facility] 04-14-2024 09:46-0500 Systolic blood pressure 141 mm[Hg] Jose R Aquino MD Work Phone: [facility] 04-13-2024 08:56-0500 Diastolic blood pressure 93 mm[Hg] Gold BRISENO Work Phone: [facility] 04-13-2024 08:56-0500 Heart rate 86 /min Gold BRISENO Work Phone: [facility] 04-13-2024 08:56-0500 Respiratory rate 24 /min Gold BRISENO Work Phone: [facility] 04-13-2024 08:56-0500 SaO2% (BldA) [Mass fraction] 98 % Gold BRISENO Work Phone: [facility] [employer] [facility] 04-13-2024 08:56-0500 Systolic blood pressure 130 mm[Hg] Gold BRISENO Work Phone: [facility] 04-06-2024 14:09-0500 Body height 177.8 cm Vanesa VILLALOBOSP Work Phone: [facility] Work Phone: 04-06-2024 14:09-0500 Body mass index (BMI) [Ratio] 26.9 kg/m2 Vanesa VILLALOBOSP Work Phone: [facility] Work Phone: 04-06-2024 14:09-0500 Body surface area Derived from formula 2 m2 Vanesa VILLALOBOSP Work Phone: [facility] Work Phone: 04-06-2024 14:09-0500 Body weight 84.91 kg Vanesa VILLALOBOSP Work Phone: [facility] Work Phone: 04-06-2024 14:09-0500 Diastolic blood pressure 90 mm[Hg] Vanesa Crouch [employer]SP[employer]ATION [employer]ER Work Phone: [facility] Work Phone: 04-06-2024 14:09-0500 Heart rate 85 /min Vanesa Crouch [employer]SPORTATION BROKER Work Phone: [facility] Work Phone: 04-06-2024 14:09-0500 SaO2% (BldA) [Mass fraction] 94 % Vanesa Crouch [employer]SPORTATION BROKER Work Phone: [facility] Work Phone: 04-06-2024 14:09-0500 Systolic blood pressure 138 mm[Hg] Vanesa RILEY Work Phone: [facility] Work Phone: 03-29-2024 10:27-0500 Body temperature 98.4 [degF] Lyn Shipman PA-C Work Phone: [facility] 03-16-2024 11:24-0500 Body mass index (BMI) [Ratio] 26.83 kg/m2 Carrington Fritz MD [facility] 03-16-2024 11:24-0500 Body weight 84.82 kg Carrington Fritz MD [facility] 03-16-2024 11:24-0500 Diastolic blood pressure 91 mm[Hg] Carrington Fritz MD [facility] 03-16-2024 11:24-0500 Heart rate 101 /min Carrington Fritz MD [facility] 03-16-2024 11:24-0500 Systolic blood pressure 132 mm[Hg] Carrington Fritz MD [facility] 03-15-2024 12:42-0500 Body height 177.8 cm Fran-Sarahi Vu DO [facility] 03-15-2024 12:42-0500 Body mass index (BMI) [Ratio] 27.32 kg/m2 Fran-Sarahi Vu DO [facility] 03-15-2024 12:42-0500 Body temperature 98.1 [degF] [facility]Sarahi Vu DO [facility] 03-15-2024 12:42-0500 Body weight 86.36 kg Fran-Sarahi Vu DO [facility] 03-06-2024 16:24-0500 Diastolic blood pressure 74 mm[Hg] Vanesa Crouch [employer]SP[employer]ATION BROKER Work Phone: [facility] Work Phone: 03-06-2024 16:24-0500 Systolic blood pressure 119 mm[Hg] Vanesa Crouch TRANSPORTATION BROKER Work Phone: [facility] Work Phone: 03-06-2024 16:05-0500 Body height 177.8 cm Vanesa Crouch TRANSPORTATION BROKER Work Phone: [facility] Work Phone: 03-06-2024 16:05-0500 Body mass index (BMI) [Ratio] 27 kg/m2 Vanesa Crouch TRANSPORTATION BROKER Work Phone: [facility] Work Phone: 03-06-2024 16:05-0500 Body surface area Derived from formula 2 m2 Vanesa Crouch TRANSPORTATION BROKER Work Phone: [facility] Work Phone: 03-06-2024 16:05-0500 Body temperature 98 [degF] Vanesa Crouch TRANSPORTATION BROKER Work Phone: [facility] Work Phone: 03-06-2024 16:05-0500 Body weight 85.28 kg Vanesa Crouch TRANSPORTATION BROKER Work Phone: [facility] Work Phone: 03-06-2024 16:05-0500 Diastolic blood pressure 83 mm[Hg] Vanesa Crouch TRANSPORTATION BROKER Work Phone: [facility] Work Phone: 03-06-2024 16:05-0500 Heart rate 84 /min Vanesa Crouch TRANSPORTATION BROKER Work Phone: [facility] Work Phone: 03-06-2024 16:05-0500 Respiratory rate 18 /min Vanesa VILLALOBOSP Work Phone: [facility] Work Phone: 03-06-2024 16:05-0500 SaO2% (BldA) [Mass fraction] 98 % Vanesa Crouch TRANSPORTATION BROKER Work Phone: [facility] Work Phone: 03-06-2024 16:05-0500 Systolic blood pressure 127 mm[Hg] Vanesa VILLALOBOSP Work Phone: [facility] Work Phone: 02-15-2024 09:48-0500 Body mass index (BMI) [Ratio] 25.97 kg/m2 Carrington Fritz MD Work Phone: [facility] [employer] [facility] 02-15-2024 09:48-0500 Body weight 82.1 kg Carrington Fritz MD [facility] 02-15-2024 09:48-0500 Diastolic blood pressure 79 mm[Hg] Carrington Fritz MD Work Phone: [facility] [employer] [facility] 02-15-2024 09:48-0500 Heart rate 100 /min Carrington Fritz MD Work Phone: [facility] [employer] [facility] 02-15-2024 09:48-0500 Systolic blood pressure 153 mm[Hg] Carrington Fritz MD [facility] 01-20-2024 11:11-0500 Body mass index (BMI) [Ratio] 24.39 kg/m2 Carrington Fritz MD Work Phone: [facility] [employer] [facility] 01-20-2024 11:11-0500 Body weight 77.11 kg Carrington Fritz MD [facility] 01-20-2024 11:11-0500 Diastolic blood pressure 90 mm[Hg] Carrington Fritz MD Work Phone: [facility] [employer] 01-20-2024 11:11-0500 Heart rate 115 /min Carrington Fritz MD Work Phone: [facility] [employer] [facility] 01-20-2024 11:11-0500 Systolic blood pressure 126 mm[Hg] Carrington Fritz MD Work Phone: [facility] [employer] [facility] 12-22-2023 14:31-0400 Body height 177.8 cm Fran-Sarahi Vu DO Work Phone: [facility] [employer] [facility] 12-22-2023 14:31-0400 Body mass index (BMI) [Ratio] 24.25 kg/m2 Fran-Sarahi Vu DO Work Phone: [facility] [employer] 12-22-2023 14:31-0400 Body temperature 98.2 [degF] Fran-Sarahi Vu DO Work Phone: [facility] [employer] [facility] 12-22-2023 14:31-0400 Body weight 76.66 kg Fran-Sarahi Vu DO Work Phone: [facility] [employer] [facility] 12-16-2023 11:07-0400 Body mass index (BMI) [Ratio] 26 kg/m2 Carrington Fritz MD Work Phone: [facility] [employer] [facility] 12-16-2023 11:07-0400 Body weight 77.56 kg Carrington Fritz MD Work Phone: [facility] [employer] [facility] 12-16-2023 11:07-0400 Diastolic blood pressure 89 mm[Hg] Carrington Fritz MD Work Phone: [facility] [employer] [facility] 12-16-2023 11:07-0400 Heart rate 100 /min Carrington Fritz MD Work Phone: [facility] [employer] [facility] 12-16-2023 11:07-0400 Systolic blood pressure 151 mm[Hg] Carrington Fritz MD Work Phone: [facility] 12-08-2023 14:55-0400 Body height 177.8 cm Kory Nerivasiliy MORE.INSTRUCTOR TRAINER CANINE SERVICE Work Phone: [facility] 12-08-2023 14:55-0400 Heart rate 64 /min Kory Ricardo MORE.INSTRUCTOR TRAINER CANINE SERVICE Work Phone: [facility] 12-08-2023 14:55-0400 SaO2% (BldA) [Mass fraction] 96 % Kory Ricardo MORE.INSTRUCTOR TRAINER CANINE SERVICE Work Phone: [facility] 11-24-2023 09:10-0400 Body mass index (BMI) [Ratio] 25.21 kg/m2 Carrington Fritz MD Work Phone: [facility] 11-24-2023 09:10-0400 Body temperature 98.01 [degF] Carrington Fritz MD Work Phone: [facility] 11-24-2023 09:10-0400 Body weight 75.75 kg Carrington Fritz MD Work Phone: [facility] 11-24-2023 09:10-0400 Diastolic blood pressure 81 mm[Hg] Carrington Fritz MD Work Phone: [facility] 11-24-2023 09:10-0400 Heart rate 78 /min Carrington Fritz MD Work Phone: [facility] 11-24-2023 09:10-0400 Systolic blood pressure 133 mm[Hg] Carrington Fritz MD Work Phone: [facility] 11-11-2023 13:51-0400 Body height 173.4 cm Carrington Fritz MD Work Phone: [facility] 11-11-2023 13:51-0400 Body mass index (BMI) [Ratio] 24.6 kg/m2 Carrington Fritz MD Work Phone: [facility] 11-11-2023 13:51-0400 Body weight 73.94 kg Carrington Fritz MD Work Phone: [facility] 11-11-2023 13:51-0400 Diastolic blood pressure 84 mm[Hg] Carrington Fritz MD Work Phone: [facility] [employer] 11-11-2023 13:51-0400 Heart rate 90 /min Carrington Fritz MD Work Phone: [facility] [employer] [facility] 11-11-2023 13:51-0400 SaO2% (BldA) [Mass fraction] 96 % Carrington Fritz MD Work Phone: [facility] [employer] 11-11-2023 13:51-0400 Systolic blood pressure 127 mm[Hg] Carrington Fritz MD [facility] 10-28-2023 17:21-0400 Body height 177.8 cm Carmen Miller MD Work Phone: [employer] 10-28-2023 17:21-0400 Body mass index (BMI) [Ratio] 24.39 kg/m2 Carmen Miller MD Work Phone: [employer] 10-28-2023 17:21-0400 Body temperature 98.91 [degF] Carmen Miller MD Work Phone: [employer] 10-28-2023 17:21-0400 Body weight 77.11 kg Carmen Miller MD Work Phone: [employer] 10-28-2023 17:21-0400 Diastolic blood pressure 88 mm[Hg] Carmen Miller MD Work Phone: [employer] 10-28-2023 17:21-0400 Heart rate 93 /min Carmen Miller MD Work Phone: [employer] 10-28-2023 17:21-0400 Respiratory rate 18 /min Carmen Miller MD Work Phone: [employer] 10-28-2023 17:21-0400 SaO2% (BldA) [Mass fraction] 97 % Carmen Miller MD Work Phone: [facility] 10-28-2023 17:21-0400 Systolic blood pressure 132 mm[Hg] Carmen Miller MD Work Phone: [facility] 08-25-2023 13:11-0400 Body height 177.8 cm Colette Yevgeniy BECKMAN Work Phone: [facility] Work Phone: 08-25-2023 13:11-0400 Body mass index (BMI) [Ratio] 26 kg/m2 Colette Yevgeniy INSTRUCTOR TRAINER CANINE SERVICE Work Phone: [facility] Work Phone: 08-25-2023 13:11-0400 Body surface area Derived from formula 2 m2 Colette Yevgeniy BECKMAN Work Phone: [facility] Work Phone: 08-25-2023 13:11-0400 Body weight 82.1 kg Colettekeo Vuong CNP Work Phone: [facility] Work Phone: 08-25-2023 13:11-0400 Diastolic blood pressure 79 mm[Hg] Colette Vuong INSTRUCTOR TRAINER CANINE SERVICE Work Phone: [facility] Work Phone: 08-25-2023 13:11-0400 Heart rate 75 /min Colette Vuong INSTRUCTOR TRAINER CANINE SERVICE Work Phone: [facility] Work Phone: 08-25-2023 13:11-0400 SaO2% (BldA) [Mass fraction] 98 % Colette Vuong INSTRUCTOR TRAINER CANINE SERVICE Work Phone: [facility] Work Phone: 08-25-2023 13:11-0400 Systolic blood pressure 118 mm[Hg] Colette Vuong INSTRUCTOR TRAINER CANINE SERVICE Work Phone: [facility] Work Phone: 08-04-2023 12:57-0400 Body height 177.8 cm Fran-Sarahi Vu DO Work Phone: [facility] 08-04-2023 12:57-0400 Body mass index (BMI) [Ratio] 27.26 kg/m2 Fran-Sarahi Vu DO Work Phone: [facility] 08-04-2023 12:57-0400 Body temperature 98.2 [degF] Fran-Sarahi Vu DO Work Phone: [facility] 08-04-2023 12:57-0400 Body weight 86.18 kg Fran-Sarahi Vu DO Work Phone: [facility] 07-15-2023 13:13-0400 Body height 177.8 cm Colette Vuong CNP Work Phone: [facility] Work Phone: 07-15-2023 13:13-0400 Body mass index (BMI) [Ratio] 26.2 kg/m2 Colette Yevgeniy INSTRUCTOR TRAINER CANINE SERVICE Work Phone: [facility] Work Phone: 07-15-2023 13:13-0400 Body surface area Derived from formula 2 m2 Colette Yevgeniy INSTRUCTOR TRAINER CANINE SERVICE Work Phone: [facility] Work Phone: 07-15-2023 13:13-0400 Body weight 82.92 kg Colette Yevgeniy BECKMAN Work Phone: [facility] Work Phone: 07-15-2023 13:13-0400 Diastolic blood pressure 84 mm[Hg] Colette Vuong CNP Work Phone: [facility] Work Phone: 07-15-2023 13:13-0400 Heart rate 82 /min Colette Vuong CNP Work Phone: [facility] Work Phone: 07-15-2023 13:13-0400 SaO2% (BldA) [Mass fraction] 95 % Colette Vuong INSTRUCTOR TRAINER CANINE SERVICE Work Phone: [facility] Work Phone: 07-15-2023 13:13-0400 Systolic blood pressure 138 mm[Hg] Colette Vuong INSTRUCTOR TRAINER CANINE SERVICE Work Phone: [facility] Work Phone: 07-14-2023 10:19-0400 Body height 177.8 cm Fran-Sarahi Vu DO Work Phone: [facility] [employer] [facility] 07-14-2023 10:19-0400 Body mass index (BMI) [Ratio] 26.98 kg/m2 Fran-Sarahi Vu DO Work Phone: [facility] [employer] [facility] 07-14-2023 10:19-0400 Body temperature 97.2 [degF] Fran-Sarahi Vu DO Work Phone: [facility] [employer] [facility] 07-14-2023 10:19-0400 Body weight 85.28 kg Fran-Sarahi Vu DO Work Phone: [facility] [employer] [facility] 07-14-2023 10:19-0400 Diastolic blood pressure 72 mm[Hg] Fran-Sarahi Vu DO Work Phone: [facility] [employer] [facility] 07-14-2023 10:19-0400 Systolic blood pressure 118 mm[Hg] Fran-Sarahi Vu DO Work Phone: [facility] [employer] [facility] 06-03-2023 13:10-0400 Body height 175.26 cm Colette Vuong INSTRUCTOR TRAINER CANINE SERVICE Work Phone: [facility] Work Phone: 06-03-2023 13:10-0400 Body mass index (BMI) [Ratio] 25.1 kg/m2 Colette Yevgeniy INSTRUCTOR TRAINER CANINE SERVICE Work Phone: [facility] Work Phone: 06-03-2023 13:10-0400 Body surface area Derived from formula 1.9 m2 Colette Vuong CNP Work Phone: [facility] Work Phone: 06-03-2023 13:10-0400 Body weight 77.11 kg Colette Vuong CNP Work Phone: [facility] Work Phone: 06-03-2023 13:10-0400 Diastolic blood pressure 76 mm[Hg] Colette Vuong CNP Work Phone: [facility] Work Phone: 06-03-2023 13:10-0400 Heart rate 76 /min Colette Vuong CNP Work Phone: [facility] Work Phone: 06-03-2023 13:10-0400 SaO2% (BldA) [Mass fraction] 95 % Colette Vuong CNP Work Phone: [facility] Work Phone: 06-03-2023 13:10-0400 Systolic blood pressure 108 mm[Hg] Colette Vuong CNP Work Phone: [facility] Work Phone: 05-10-2023 13:13-0500 Body height 175.26 cm Colette Vuong CNP Work Phone: [facility] Work Phone: 05-10-2023 13:13-0500 Body mass index (BMI) [Ratio] 24.5 kg/m2 Colette Vuong CNP Work Phone: [facility] Work Phone: 05-10-2023 13:13-0500 Body surface area Derived from formula 1.9 m2 Colette Vuong CNP Work Phone: [facility] Work Phone: 05-10-2023 13:13-0500 Body weight 75.3 kg Colette Vuong CNP Work Phone: [facility] Work Phone: 05-10-2023 13:13-0500 Diastolic blood pressure 71 mm[Hg] Colette Vuong INSTRUCTOR TRAINER CANINE SERVICE Work Phone: [facility] Work Phone: 05-10-2023 13:13-0500 Heart rate 79 /min Colette Vuong INSTRUCTOR TRAINER CANINE SERVICE Work Phone: [facility] Work Phone: 05-10-2023 13:13-0500 SaO2% (BldA) [Mass fraction] 94 % Colette Vuong INSTRUCTOR TRAINER CANINE SERVICE Work Phone: [facility] Work Phone: 05-10-2023 13:13-0500 Systolic blood pressure 114 mm[Hg] Colette Vuong INSTRUCTOR TRAINER CANINE SERVICE Work Phone: [facility] Work Phone: 04-26-2023 14:35-0500 Body height 175.26 cm Colette Vuong INSTRUCTOR TRAINER CANINE SERVICE Work Phone: [facility] Work Phone: 04-26-2023 14:35-0500 Body mass index (BMI) [Ratio] 24.5 kg/m2 Colette Vuong INSTRUCTOR TRAINER CANINE SERVICE Work Phone: [facility] Work Phone: 04-26-2023 14:35-0500 Body surface area Derived from formula 1.9 m2 Colette Vuong INSTRUCTOR TRAINER CANINE SERVICE Work Phone: [facility] Work Phone: 04-26-2023 14:35-0500 Body weight 75.3 kg Colettekeo Vuong INSTRUCTOR TRAINER CANINE SERVICE Work Phone: [facility] Work Phone: 04-26-2023 14:35-0500 Diastolic blood pressure 73 mm[Hg] Colette Vuong INSTRUCTOR TRAINER CANINE SERVICE Work Phone: [facility] Work Phone: 04-26-2023 14:35-0500 Heart rate 81 /min Colette Vuong CNP Work Phone: [facility] Work Phone: 04-26-2023 14:35-0500 SaO2% (BldA) [Mass fraction] 96 % Colette Vuong CNP Work Phone: [facility] Work Phone: 04-26-2023 14:35-0500 Systolic blood pressure 115 mm[Hg] Colette Vuong CNP Work Phone: [facility] Work Phone: 04-12-2023 13:15-0500 Body height 175.26 cm Winston Carbajal [employer] Work Phone: [facility] Work Phone: 04-12-2023 13:15-0500 Body mass index (BMI) [Ratio] 23.9 kg/m2 Winston Carbajal [employer] Work Phone: [facility] Work Phone: 04-12-2023 13:15-0500 Body surface area Derived from formula 1.9 m2 Winston Carbajal [employer] Work Phone: [facility] Work Phone: 04-12-2023 13:15-0500 Body weight 73.48 kg Winston Carbajal [employer] Work Phone: [facility] Work Phone: 04-12-2023 13:15-0500 Diastolic blood pressure 79 mm[Hg] Winston Carbajal DDS Work Phone: [facility] Work Phone: 04-12-2023 13:15-0500 Heart rate 86 /min Winston Carbajal [employer] Work Phone: [facility] Work Phone: 04-12-2023 13:15-0500 SaO2% (BldA) [Mass fraction] 96 % Winston Carbajal DDS Work Phone: [facility] Work Phone: 04-12-2023 13:15-0500 Systolic blood pressure 111 mm[Hg] Winston Carbajal DDS Work Phone: [facility] Work Phone: 09-21-2022 15:05-0400 Diastolic blood pressure 71 mm[Hg] [employer] Other Phone: [facility] 09-21-2022 15:05-0400 Heart rate 101 /min [employer] Other Phone: [facility] 09-21-2022 15:05-0400 Respiratory rate 18 /min [employer] Other Phone: [facility] 09-21-2022 15:05-0400 SaO2% (BldA) [Mass fraction] 97 % [employer] Other Phone: [facility] 09-21-2022 15:05-0400 Systolic blood pressure 105 mm[Hg] [employer] Other Phone: [facility] 09-21-2022 12:05-0400 Body height 180.3 cm [employer] Other Phone: [facility] 09-21-2022 12:05-0400 Body temperature 98.06 [degF] [employer] Other Phone: [facility] 09-21-2022 12:05-0400 Body weight 70.2 kg [employer] Other Phone: [facility] 04-23-2022 03:59-0500 Body temperature 98.29 [degF] Allie Bustamante MD Work Phone: [employer] 04-23-2022 03:59-0500 Diastolic blood pressure 73 mm[Hg] Allie Bustamante MD Work Phone: [employer] 04-23-2022 03:59-0500 Heart rate 88 /min Allie Bustamante MD Work Phone: [employer] [facility] 04-23-2022 03:59-0500 Respiratory rate 18 /min Allie Bustamante MD Work Phone: [employer] [facility] 04-23-2022 03:59-0500 SaO2% (BldA) [Mass fraction] 95 % Allie Bustamante MD Work Phone: [employer] 04-23-2022 03:59-0500 Systolic blood pressure 110 mm[Hg] Allie Bustamante MD Work Phone: [employer] 04-22-2022 19:35-0500 Body height 177.8 cm Allie Bustamante MD Work Phone: [employer] [facility] 04-19-2022 15:22-0500 Body mass index (BMI) [Ratio] 22.24 kg/m2 Marlon Abebe MD Work Phone: [employer] 04-19-2022 15:22-0500 Body temperature 97.9 [degF] Marlon Abebe MD Work Phone: [employer] 04-19-2022 15:22-0500 Body weight 70.31 kg Marlon Abebe MD Work Phone: [employer] [facility] 04-19-2022 15:22-0500 Diastolic blood pressure 88 mm[Hg] Marlon Abebe MD Work Phone: [employer] [facility] 04-19-2022 15:22-0500 Heart rate 97 /min Marlon Abebe MD Work Phone: [employer] 04-19-2022 15:22-0500 Respiratory rate 18 /min Marlon Abebe MD Work Phone: [employer] 04-19-2022 15:22-0500 SaO2% (BldA) [Mass fraction] 99 % Marlon Abebe MD Work Phone: [facility] 04-19-2022 15:22-0500 Systolic blood pressure 132 mm[Hg] Maroln Abebe MD Work Phone: [facility] [employer] Encounters Encounter Date Encounter Type Care Provider Facility Start: 12-14-2024 End: 12-14-2024 Patient encounter procedure Sebastien Warren Work Phone: [facility] Comment on above: Edentulous alveolar ridge (Primary Dx) Start: 12-06-2024 End: 12-06-2024 [facility] Start: 12-06-[facility]24 End: 12-06-2024 Patient encounter procedure Chaya [facility] Comment on above: Encounter for dental examination (Primary Dx) Encounter for dental examination (Primary Dx); Edentulous Start: 12-06-2024 End: 12-06-2024 Patient encounter status Chaya Mittal [facility] Start: 11-30-2024 End: 11-30-2024 Subsequent hospital visit by physician Danielle FRANCOIS SPEECH Comment on above: Arrived Start: 11-30-2024 End: 11-30-2024 [facility] Start: 11-28-2024 End: 11-28-2024 Office outpatient visit 25 minutes Gold BRISENO Work Phone: [facility] Comment on above: Cervical spondylosis without myelopathy (Primary Dx); TMJ (temporomandibular joint disorder) Start: 11-28-2024 End: 11-28-2024 ambulatory GOLD JONES [facility] Start: 11-24-2024 End: 11-24-2024 ambulatory [facility] Facility:[facility] Start: 11-23-2024 End: 12-06-2024 Earl Suazo RN [facility] Comment on above: TMJ (temporomandibul ar joint disorder) Start: 11-21-2024 End: 11-21-2024 ambulatory [facility] Start: 11-21-2024 End: 11-21-2024 Subsequent hospital visit by physician Fatuma Khanna JOB DEVELOPMENT SPECIALIST [facility] FR[facility]CO[facility] SPEECH Comment on above: Arrived Start: 11-17-2024 End: 11-17-2024 Office outpatient visit 25 minutes Carrington Fritz MD Work Phone: [facility] Internal Medicine/Pediatric[facility] Comment on above: Oral thrush (Primary Dx); Anxiety Start: 11-17-2024 End: 11-17-2024 ambulatory CARRINGTON Cage [facility] Start: 11-14-2024 End: 11-14-2024 ambulatory [facility] Start: 11-14-2024 End: 11-14-2024 Subsequent hospital visit by physician Fatuma Khanna JOB DEVELOPMENT SPECIALIST [facility] Comment on above: Arrived Start: 11-14-2024 End: 11-14-2024 Telephone encounter Diya Bonilla MD Work Phone: [facility] Start: 11-10-2024 End: 11-10-2024 ambulatory [facility] Start: 11-07-2024 End: 11-07-2024 Orders Only Sofie Reed APRN.INSTRUCTOR TRAINER CANINE SERVICE Work Phone: Gastroenterology Start: 11-07-2024 ambulatory [facility] Start: 11-03-2024 End: 11-03-2024 Follow-up encounter David Vazquez MD Work Phone: Gastroenterology Start: 11-03-2024 End: 11-03-2024 Office outpatient new 30 minutes Farn Tejada MD Work Phone: [facility] Comment on above: Temporomandibular emerald int disorder (Primary Dx); Chronic pain syndrome; Hx of intravenous drug use in remission Start: 11-03-2024 End: 11-03-2024 ambulatory FRAN Cage [facility] Start: 11-01-2024 End: 11-01-2024 ambulatory [facility] Start: 11-01-2024 End: 11-01-2024 Subsequent hospital visit by physician Danielle FRANCOIS SPEECH Comment on above: Arrived Start: 10-31-2024 ambulatory [facility] Facility:[facility] Start: 10-31-2024 End: 10-31-2024 Subsequent hospital visit by physician David Vazquez MD Work Phone: Gastroenterology Comment on above: Dysphagia, unspecifi ed type [R13.10] Start: 10-27-2024 End: 10-27-2024 Follow-up encounter Nieves Farmer DO Work Phone: [facility] Comment on above: Surgical Pathology Start: 10-24-2024 End: 10-24-2024 Office outpatient new 45 minutes Gisel Roland MD Work Phone: [facility] Comment on above: Dislocation of tempo romandibular joint, subsequent encounter Start: 10-24-2024 End: 10-24-2024 ambulatory Alvin Quinones RNleach runner Start: 10-23-2024 End: 10-23-2024 Evaluation and management of inpatient NIEVES FARMER [facility] Start: 10-19-2024 End: 10-19-2024 ambulatory [facility] Navdeep MYRTLE [facility] Start: 10-19-2024 End: 10-19-2024 Office outpatient visit 25 minutes Gold Jones PA Work Phone: [facility] Comment on above: Facial pain (Primary Dx); TMJ (temporomandibular joint disorder) Start: 10-18-2024 End: 10-18-2024 Patient encounter procedure Diya Bonilla MD Work Phone: Otolaryngology Comment on above: Oropharyngeal dyspha tomi (Primary Dx); Abnormal rhythmic movement of tongue Start: 10-18-2024 End: 10-18-2024 ambulatory [facility] Facility:[facility] Start: 10-17-2024 End: 10-17-2024 Patient encounter procedure Sofie Reed EDUCATIONAL PSYCHOLOGIST.INSTRUCTOR TRAINER CANINE SERVICE Work Phone: Gastroenterology Comment on above: Dysphagia, unspecifi ed type (Primary Dx); Oropharyngeal dysphagia Start: 10-17-2024 End: 10-17-2024 ambulatory [facility] Facility:[facility] Start: 10-16-2024 End: 10-16-2024 Chart abstracting Oxana Barrow RNleach runner Start: 10-06-2024 End: 10-06-2024 Telephone encounter Carrington Fritz MD Work Phone: [facility] Internal Medicine/Pediatric[facility] Start: 10-06-2024 ambulatory [facility] Start: 10-04-2024 ambulatory [facility]ARR[place] Cage [place] [facility] Start: 10-03-2024 End: 10-03-2024 Office outpatient new 30 minutes Azeb An EDUCATIONAL PSYCHOLOGIST-INSTRUCTOR TRAINER CANINE SERVICE Work Phone: [facility] General Surgery Comment on above: Encounter for screen ing colonoscopy (Primary Dx); Constipation, unspecified constipation type Start: 10-03-2024 End: 10-03-2024 Refill Azeb An EDUCATIONAL PSYCHOLOGIST-INSTRUCTOR TRAINER CANINE SERVICE Work Phone: [facility] General Surgery Comment on above: Constipation, unspec ified constipation type Start: 09-29-2024 End: 09-29-2024 Patient encounter procedure Avelino Oconnor EDUCATIONAL PSYCHOLOGIST.INSTRUCTOR TRAINER CANINE SERVICE Work Phone: Otolaryngology Comment on above: Black hairy tongue ( Primary Dx); Oral phase dysphagia; Dry mouth Start: 09-29-2024 End: 09-29-2024 ambulatory [facility] Facility:[facility] Start: 09-27-2024 End: 09-27-2024 Subsequent hospital visit by physician Tonya Tam X-Ray 1 [facility] Comment on above: Neck pain Start: 09-27-2024 End: 09-27-2024 Office outpatient new 30 minutes Kennedy Domínguez PA-C Work Phone: [facility] Office Building Comment on above: Neck pain; Cervical strain, acute, initial encounter Start: 09-27-2024 End: 09-27-2024 ambulatory [facility] Start: 09-22-2024 End: 09-22-2024 Emergency department patient visit DRE WILDE [facility] Emergency Medicine Comment on above: Jaw pain (Primary Dx ); Strain of neck muscle, initial encounter Start: 09-19-2024 End: 09-27-2024 Refill Tala Mane RN [facility] Comment on above: TMJ (temporomandibul ar joint disorder) (Primary Dx) Start: 09-18-2024 End: 09-18-2024 Refill Carrington Fritz MD Work Phone: [facility] Internal Medicine/Pediatrics Comment on above: Anxiety Start: 09-15-2024 End: 09-15-[address] [facility] Start: 09-15-2024 End: 09-15-2024 ambulatory BAR [facility] Start: 09-13-2024 ambulatory [facility] Start: 09-05-2024 End: 09-05-2024 Office outpatient visit 25 minutes Carrington Fritz MD Work Phone: [facility] Internal Medicine/Pediatrics Comment on above: Closed fracture of o ne rib of left side with routine healing, subsequent encounter (Primary Dx); Anxiety; Jaw pain Start: 09-05-2024 End: 09-05-2024 ambulatory CARRINGTON FRITZ [facility] Start: 08-24-2024 End: 08-24-2024 Unknown [facility] Start: 08-24-2024 End: 08-24-2024 Office outpatient visit 15 minutes Ryann Traylor PA-C Work Phone: Urgent Care Virtual Visit Comment on above: TMJ syndrome (Primar y Dx); Scalp pain Start: 08-23-2024 End: 08-23-2024 Telephone encounter Blue Mathias MD Work Phone: [facility] Comment on above: Insurance Authorizat ion (Preferred Drug W/Botox ) Start: 08-18-2024 End: 08-18-2024 Office outpatient visit 15 minutes Carrington Fritz MD Work Phone: [facility] Internal Medicine/Pediatrics Comment on above: Hx of trauma of hard palate (Primary Dx) Start: 08-18-2024 End: 08-18-[address] [facility] Start: 08-15-2024 End: 08-15-2024 Emergency department patient visit [facility] Start: 08-15-2024 End: 08-15-2024 Office outpatient visit 25 minutes Gold BRISENO Work Phone: [facility] Comment on above: Chronic facial pain (Primary Dx); TMJ (temporomandibular joint disorder) Start: 08-15-2024 End: 08-15-2024 [facility] Start: 08-14-2024 End: 08-14-2024 ambulatory He Calle CCC-JOB DEVELOPMENT SPECIALIST [facility] Speech Therapy Comment on above: Oropharyngeal dyspha tomi (Primary Dx); Jaw pain; Atypical facial pain Start: 08-09-2024 End: 08-10-2024 Refill Dahlia Sommer A [facility] Internal Medicine/Pediatrics Comment on above: Anxiety Start: 08-08-2024 End: 08-08-2024 Orders Only Juan F Wright DO Work Phone: Neurology Comment on above: Referral Request (Cristi tox / Initial) Start: 08-02-2024 End: 08-02-2024 Postop follow up visit related to original px Jamie Nur MD Work Phone: Otolaryngology Comment on above: Post-operative state (Primary Dx) Start: 08-02-2024 End: 08-02-2024 ambulatory CARRINGTON FRITZ Facility:[facility] Start: 07-21-2024 End: 07-21-2024 Telephone encounter Juan F Wright DO Work Phone: Neurology Comment on above: Patient Update Start: 07-21-2024 End: 07-21-2024 Office outpatient visit 25 minutes Juan F Wright DO Work Phone: Neurology Comment on above: Jaw pain (Primary Dx ); Atypical facial pain; Dysphagia, unspecified type Start: 07-21-2024 End: 07-21-2024 ambulatory [facility] Facility:[facility] Start: 07-20-2024 End: 07-21-2024 ambulatory [facility] Facility:[facility] Start: 07-19-2024 End: 07-20-2024 Refill Criselda Suazo RN [facility] Comment on above: TMJ (temporomandibul ar joint disorder) - Bilateral Start: 07-11-2024 End: 07-11-2024 ambulatory CHARI VELA Facility:[facility] Start: 07-11-2024 End: 07-11-2024 Telemedicine consultation with patient Chari Vela INSTRUCTOR TRAINER CANINE SERVICE Work Phone: Telemedicine Comment on above: Viral sinusitis (Dana genesis Dx) Start: 07-11-2024 End: 08-09-2024 Telephone encounter Blue Mathias MD Work Phone: [facility] Comment on above: Insurance Authorizat ion (Preferred Drug W/Appeal) Anxiety Start: 07-10-2024 End: 07-12-2024 ambulatory [facility] Start: 07-10-2024 End: 07-12-2024 Subsequent hospital visit by physician Kulwinder Nur MD Work Phone: [facility] MRI Comment on above: Oropharyngeal dyspha tomi Start: 07-10-2024 ambulatory [facility] Start: 07-06-2024 End: 07-06-2024 ambulatory [facility] Facility:[facility] Start: 07-06-2024 Encounter for other preprocedural examination CHARI VELA [facility] Start: 07-06-2024 End: 07-06-2024 Admission to establishment [facility] Work Phone: Pre Anesthesia Start: 07-06-2024 End: 07-06-2024 Anesthesia consultation [facility] Work Phone: Pre Anesthesia Comment on above: Pre-op evaluation (P rimary Dx); Hepatitis C virus infection without hepatic coma, unspecified chronicity; Neck pain; Opioid dependence in remission (HCC) Start: 07-06-2024 End: 07-06-2024 Preprocedural examination done [facility] Work Phone: [facility] Work Phone: Start: 07-06-2024 ambulatory GABE MARIN [facility] Start: 07-04-2024 End: 07-04-2024 Telephone encounter Juan F Wright DO Work Phone: Neurology Comment on above: Referral Request Start: 07-04-2024 End: 07-04-2024 Office outpatient visit 25 minutes Gold BRISENO Work Phone: [facility] Comment on above: Bilateral temporoman dibular joint disorder, unspecified (Primary Dx); TMJ (temporomandibular joint disorder) - Bilateral Start: 07-04-2024 End: 07-04-2024 ambulatory GOLD JONES [facility] Start: 06-29-2024 End: 06-29-2024 ambulatory CARRINGTON NAKUL JOANNFREDDY Facility:[facility] Start: 06-19-2024 End: 06-23-2024 Telephone encounter Kate Becker Neurology, A Department of [facility] Comment on above: New Patient Start: 06-16-2024 End: 06-16-2024 [facility] Start: 06-13-2024 End: 06-14-2024 Telephone encounter Matthias Vela CMA [facility] Internal Medicine/Pediatric[facility] Start: 06-13-2024 End: 06-13-2024 ambulatory ERICA HART Facility:[facility] Start: 06-13-2024 End: 06-13-2024 Office outpatient new 45 minutes Erica Hart MD Work Phone: Dermatology [place] Comment on above: Seborrheic dermatiti s (Primary Dx) Start: 06-12-2024 End: 06-12-2024 ambulatory [facility] Start: 06-08-2024 End: 06-08-2024 Refill Tala Mane RN [facility] Comment on above: Cervical spondylosis without myelopathy Start: 06-06-2024 ambulatory GABE MARIN [facility] Start: 06-04-2024 End: 06-05-2024 Refill Carrington Fritz MD Work Phone: [facility] Internal Medicine/Pediatrics Comment on above: Anxiety Start: 06-01-2024 End: 06-01-2024 Office outpatient visit 25 minutes Carrington Fritz MD Work Phone: [facility] Internal Medicine/Pediatrics Comment on above: Facial pain (Primary Dx); Anxiety Start: 06-01-2024 End: 06-01-[address] [facility] Start: 05-30-2024 End: 05-30-2024 Telephone encounter Gabe Marin APRN.CNP Work Phone: [facility] [place] Comment on above: Focuser - O ther Start: 05-30-2024 End: 05-30-2024 Office outpatient visit 25 minutes Gold BRISENO Work Phone: [facility] Comment on above: Cervical spondylosis without myelopathy (Primary Dx); TMJ (temporomandibular joint disorder) Start: 05-30-2024 End: 05-30-2024 ambulatory GOLD JONES [facility] Start: 05-29-2024 End: 05-29-2024 ambulatory DONAL HAYS Facility:[facility] Start: 05-29-2024 End: 05-29-2024 Office outpatient visit 25 minutes Donal Hays MD Work Phone: Facial Plastics/Reconstruction Comment on above: Incompetent nasal va lve (Primary Dx); Refractory obstruction of nasal airway; Hypertrophy of inferior nasal turbinate; Deviated nasal septum Start: 05-26-2024 End: 05-26-2024 ambulatory [facility] Start: 05-22-2024 End: 05-22-2024 ambulatory GABE RUSS Facility:[facility] Start: 05-22-2024 End: 05-22-2024 Patient encounter procedure Gabe Marin APRN.CNP Work Phone: [facility] Comment on above: Cervicalgia (Primary Dx); Cervical spondylosis; Jaw pain Start: 05-19-2024 ambulatory UNKNOWN PROVIDER Facili ty:[facility] Start: 05-19-2024 End: 05-19-2024 Subsequent hospital visit by physician [facility] (1.5t) Radiology Comment on above: Cervicalgia [M54.2] Start: 05-15-2024 End: 05-15-2024 ambulatory BRANDY ERICKSON Facility:[facility] Start: 05-15-2024 End: 05-15-2024 Patient encounter procedure Brandy Erickson PA-C Work Phone: Orthopaedics Comment on above: Left shoulder tendon itis (Primary Dx); Acute pain of left shoulder Start: 05-12-2024 End: 05-12-2024 Telephone encounter Gabe Marin APRN.CNP Work Phone: [facility] Comment on above: Focuser - O ther Start: 05-08-2024 End: 05-08-2024 Emergency department patient visit CARRINGTON Cage [facility] Start: 05-08-2024 ambulatory GABE ROCIO MARIN [facility] Start: 05-05-2024 End: 05-05-2024 Refill Dahlia Sommer [facility] Comment on above: Anxiety Start: 05-03-2024 End: 05-03-2024 Office outpatient visit 25 minutes Fran-Sarahi Vu DO Work Phone: [facility] Comment on above: Black hairy tongue ( Primary Dx); Dysphagia, unspecified type; Asymmetrical hearing loss; DNS (deviated nasal septum) Start: 05-03-2024 End: 05-03-2024 ambulatory FRAN-SARAHI VU [facility] Start: 05-01-2024 End: 05-01-2024 Office outpatient visit 15 minutes Carrington Fritz MD Work Phone: [facility] Internal Medicine/Pediatrics Comment on above: Facial pain (Primary Dx); Anxiety; Seborrhea capitis Start: 05-01-2024 End: 05-01-2024 ambulatory CARRINGTON FRITZ [facility] Start: 04-26-2024 End: 04-26-2024 Patient encounter procedure Laurence Cox RT(R) Radiology Start: 04-26-2024 End: 04-26-2024 ambulatory Laurence Cox RT(R) Radiology Comment on above: Radiology MRI Start: 04-26-2024 End: 04-26-2024 Subsequent hospital visit by physician Mri [facility] Sia (1.5t) Work Phone: Radiology Comment on above: Acute pain of left s houlder [M25.512] Start: 04-25-2024 ambulatory GABE MARIN [facility] Start: 04-25-2024 End: 04-26-2024 Telephone encounter Gabe Marin APRN.INSTRUCTOR TRAINER CANINE SERVICE Work Phone: [facility] Comment on above: PT Orders Start: 04-24-2024 End: 04-24-2024 Subsequent hospital visit by physician Xr [facility] Maria A Mccallum General Radiology Comment on above: Cervicalgia [M54.2] Start: 04-24-2024 End: 04-24-2024 ambulatory Maria Ines Canchola RT(R) General Radiology Comment on above: Radiology XR Start: 04-24-2024 End: 04-24-2024 Patient encounter procedure Maria Ines Canchola RT(R) General Radiology Comment on above: Cervicalgia (Primary Dx); Localized swelling, mass or lump of neck; Anxiety Start: 04-21-2024 End: 04-21-2024 ambulatory LYN SHIPMAN Facility:[facility] Start: 04-21-2024 End: 04-21-2024 Patient encounter procedure Diya Bonilla MD Work Phone: Otolaryngology Comment on above: DNS (deviated nasal septum) (Primary Dx); Dysphagia, unspecified type; Mouth discomfort Start: 04-17-2024 End: 04-17-2024 ambulatory NANCIE HUERTA MD Facility:[id number] Start: 04-14-2024 End: 04-14-2024 ambulatory JOSE R AQUINO Facility:[facility] Start: 04-14-2024 End: 04-14-2024 ambulatory LYN SHIPMAN Facility:[facility] Start: 04-14-2024 End: 04-14-2024 Patient encounter procedure Jose R Aquino MD Work Phone: Infectious Disease Comment on above: Black hairy tongue ( Primary Dx); Oral infection; Diarrhea of presumed infectious origin; History of hepatitis C; CRP elevated; Dry mouth Start: 04-13-2024 End: 04-13-2024 Office outpatient visit 25 minutes Gold BRISENO Work Phone: [facility] Comment on above: Jaw pain (Primary Dx ); TMJ (temporomandibular joint disorder) Start: 04-13-2024 End: 04-13-2024 ambulatory [facility] Navdeep JONES [facility] Start: 04-11-2024 End: 08-09-2024 Telephone encounter Carlos Lebron MD Work Phone: Otolaryngology Start: 04-10-2024 End: 04-10-2024 Telephone encounter Jaz Sood MD Work Phone: [facility] Start: 04-08-2024 End: 04-08-2024 ambulatory CHARI VELA Facility:[facility] Start: 04-08-2024 End: 04-10-2024 Telemedicine consultation with patient Mechelle Bonillabright CANDELARIO Work Phone: Telemedicine Comment on above: Encounter to discuss test results (Primary Dx) Xerostomia Start: 04-07-2024 End: 04-07-2024 Patient encounter procedure Brandy Erickson PA-C Work Phone: Orthopaedics Comment on above: Acute pain of left s houlder (Primary Dx); Left shoulder tendonitis; Left arm weakness Start: 04-07-2024 End: 04-07-2024 ambulatory SELF Facility:[facility] Start: 04-07-2024 End: 04-07-2024 Subsequent hospital visit by physician Xr [facility] General Radiology Comment on above: Left shoulder pain, unspecified chronicity [M25.512] Start: 04-06-2024 End: 04-06-2024 Encounter for preprocedural laboratory examination Vanesa RILEY Work Phone: [facility] Work Phone: Start: 04-06-2024 End: 04-06-2024 FQ visit, estab pt Bri BEDOLLAW Work Phone: [facility] Work Phone: Start: 04-06-2024 End: 04-06-2024 General Vanesa RILEY Work Phone: [facility] Work Phone: Start: 04-05-2024 End: 04-05-2024 [facility] Comment on above: Anxiety Start: 04-04-2024 End: 04-04-2024 Refill [facility] Comment on above: Anxiety Start: 04-03-2024 End: 04-03-2024 Refill [facility] Comment on above: Anxiety Test results Start: 03-31-2024 End: 04-03-2024 ambulatory Kory Kirkland APRN.CNP Work Phone: Otolaryngology Comment on above: Orthopedic Start: 03-29-2024 End: 03-29-2024 Patient encounter procedure Lyn Shipman PA-C Work Phone: Otolaryngology Comment on above: Dry mouth; Cervicalgia; TMJ dysfunction; Black hairy tongue; DNS (deviated nasal septum); Atypical facial pain Start: 03-29-2024 End: 03-29-2024 ambulatory LYN SHIPMAN Facility:[facility] Start: 03-29-2024 End: 03-29-2024 Subsequent hospital visit by physician Mackenzie [facility] Sia Work Phone: Radiology Comment on above: Localized swelling, mass or lump of neck [R22.1] Start: 03-24-2024 End: 03-24-2024 ambulatory LAURENCE BLANKENSHIP [facility] Start: 03-21-2024 End: 03-21-2024 ambulatory Kay Siddiqi PA-C Work Phone: [facility] Comment on above: Chiropractor Blood flow Start: 03-20-2024 End: 03-20-2024 Telephone encounter Theresa Slaughter [facility] Internal [facility]Pediatrics Comment on above: medication request Start: 03-17-2024 End: 03-17-2024 ambulatory Kay Siddiqi PA-C Work Phone: [facility] Comment on above: Localized swelling, mass or lump of neck (Primary Dx); Cervicalgia Start: 03-17-2024 End: 03-17-2024 Telemedicine consultation with patient Kay Siddiqi PA-C Work Phone: [facility] Start: 03-16-2024 End: 03-16-2024 Office outpatient visit 15 minutes Carrington Fritz MD Work Phone: [facility] Internal Medicine/[facility]ediatric[facility] Comment on above: Anxiety (Primary Dx) ; Xerostomia; Seborrhea capitis Start: 03-16-2024 End: 03-16-2024 ambulatory CARRINGTON FRITZ [facility] Start: 03-15-2024 End: 03-15-2024 Office outpatient visit 15 minutes Duran Wilson DO Work Phone: [facility] Comment on above: Dysphagia, unspecifi ed type; Dry mouth; Nasal mucosa dry; Black hairy tongue Start: 03-15-2024 End: 03-15-2024 [facility] Start: 03-07-2024 End: 03-09-2024 ambulatory Kory Kirkland APRN.INSTRUCTOR TRAINER CANINE SERVICE Work Phone: Otolaryngology Comment on above: Orthopedic Start: 03-06-2024 End: 03-06-2024 FQHC visit, estab pt Patrica KIDDW Work Phone: [facility] Work Phone: Start: 03-06-2024 End: 03-06-2024 FQHC visit, estab pt Vanesasammie Crouch [employer] Work Phone: [facility] Work Phone: Start: 02-21-2024 End: 02-21-2024 Unknown [facility] Start: 02-18-2024 End: 02-18-2024 Refill Carrington Fritz MD Work Phone: [facility] Comment on above: Oral thrush Start: 02-17-2024 End: 02-17-2024 Emergency department patient visit CARRINGTON FRITZ [facility] Start: 02-17-2024 End: 02-17-2024 ambulatory GOLD S [facility] Start: 02-15-2024 End: 02-15-2024 Office outpatient visit 25 minutes Carrington Fritz MD Work Phone: [facility] Comment on above: Anxiety (Primary Dx) ; TMJ (temporomandibular joint disorder); Angular cheilosis Start: 02-15-2024 End: 02-15-2024 ambulatory BAR [facility] Start: 02-14-2024 End: 02-14-2024 E-mail encounter from caregiver Kory Kirkland APRN.INSTRUCTOR TRAINER CANINE SERVICE Work Phone: Otolaryngology Start: 02-14-2024 End: 02-14-2024 Patient encounter procedure Kory Kirkland APRN.INSTRUCTOR TRAINER CANINE SERVICE Work Phone: Otolaryngology Comment on above: Appointment Start: 02-09-2024 End: 02-09-2024 Emergency department patient visit [facility] Start: 02-09-2024 End: 02-09-2024 ambulatory Kory Kirkland ANDREE Work Phone: Otolaryngology Comment on above: Cheeks and nose, red ear Start: 02-08-2024 End: 02-08-2024 Telephone encounter Fran-Sarahi Wilson DO Work Phone: [facility] Start: 02-04-2024 End: 02-04-2024 Emergency department patient visit [facility] Start: 01-31-2024 End: 01-31-2024 Emergency department patient visit [facility] Start: 01-28-2024 End: 01-28-2024 ambulatory Tien Heredia PT Work Phone: [facility] Comment on above: TMJ dysfunction (Dana genesis Dx); Face pain; Intractable chronic cluster headache Start: 01-26-2024 End: 01-26-2024 Telephone encounter Dahlia FAYE [facility] Start: 01-26-2024 End: 01-26-2024 ambulatory MACKENZIE STATON Facility:[facility] Start: 01-26-2024 End: 01-26-2024 Unlisted evaluation and management service Mackenzie Staton MD Work Phone: Plastic Surgery Comment on above: Oropharyngeal dyspha tomi (Primary Dx); Left facial pain Start: 01-20-2024 End: 01-20-2024 Office outpatient visit 25 minutes Carrington Fritz MD Work Phone: [facility] Comment on above: Edentulous orofacial dystonia (Primary Dx) Start: 01-20-2024 End: 01-20-[address] [facility] Start: 01-18-2024 End: 01-18-2024 Telephone encounter Carrington Fritz MD Work Phone: [facility] Start: 01-18-2024 End: 01-18-2024 ambulatory Rossana Harding DERIK.INSTRUCTOR TRAINER CANINE SERVICE Work Phone: Neurology [facility] Comment on above: Atypical facial pain (Primary Dx); Amphetamine and other psychostimulant dependence, episodic (HCC); Polysubstance dependence including opioid type drug, episodic abuse (HCC); TMJ click Start: 01-18-2024 End: 01-18-2024 Telemedicine consultation with patient Rossana Harding APRN.INSTRUCTOR TRAINER CANINE SERVICE Work Phone: Neurology [facility] Start: 01-17-2024 End: 01-18-2024 ambulatory Eyal Garcia MD Work Phone: Neurology [facility] Comment on above: Roof of mouth infect ion Start: 01-17-2024 End: 01-17-2024 Emergency department patient visit [facility] Start: 01-15-2024 End: 01-15-2024 ambulatory Kory Alvarenga RN NURSE SHADE CLOTH FINISHER Comment on above: Patient Update Start: 01-06-2024 End: 01-06-2024 Subsequent hospital visit by physician [facility] Sia (1.5t) Work Phone: Radiology Comment on above: Right facial pain [R 51.9] Start: 01-06-2024 End: 01-06-2024 ambulatory Laurence Cox RT(R) Radiology Comment on above: Radiology MRI Start: 01-06-2024 End: 01-06-2024 Patient encounter procedure Laurence Cox RT(R) Radiology Start: 01-05-2024 End: 01-05-2024 Telephone encounter Eyal Garcia MD Work Phone: Neurology [facility] Start: 12-31-2023 End: 01-05-2024 ambulatory Eyal Garcia MD Work Phone: Neurology [facility] Comment on above: Thorazine Start: 12-31-2023 End: 12-31-2023 Telephone encounter Eyal Garcia MD Work Phone: Neurology Comment on above: Patient Question Start: 12-29-2023 End: 12-29-2023 ambulatory [facility] Start: 12-29-2023 End: 12-31-2023 Telephone encounter Jeff Cunningham CMA [facility] Rhe[facility]ology Start: 12-28-2023 End: 12-28-2023 Telephone encounter Carrington Fritz MD Work Phone: [facility] Start: 12-27-2023 End: 12-27-2023 Office outpatient new 45 minutes Yon Chong MD Work Phone: [facility] Rhe[facility] Comment on above: Dry mouth and eyes ( Primary Dx); TMJ (temporomandibular joint disorder); Onychomycosis of toenail; ASNHL (asymmetrical sensorineural hearing loss); Smoking Start: 12-27-2023 End: 12-27-2023 ambulatory YON CHONG [facility] Start: 12-27-2023 End: 12-28-2023 ambulatory [facility] Start: 12-23-2023 End: 12-23-2023 Orders Only Gold BRISENO Work Phone: [facility] Start: 12-22-2023 End: 12-22-2023 Patient encounter procedure [facility] Vu DO Work Phone: [facility] Comment on above: Otalgia, right (Prim erika Dx); Nasal bleeding; Asymmetrical hearing loss; DNS (deviated nasal septum); Hyperactive gag reflex; Dry mouth and eyes; Current smoker Start: 12-22-2023 End: 12-22-2023 ambulatory [facility] Start: 12-21-2023 End: 12-21-[address] [facility] Start: 12-21-2023 End: 12-21-2023 Telephone encounter Carrington Fritz MD Work Phone: [facility] Comment on above: Otalgia of both ears (Primary Dx); Fullness in ear, bilateral Start: 12-17-2023 End: 12-17-2023 Emergency department patient visit [facility] Start: 12-16-2023 End: 12-16-2023 Refill Carrington Fritz MD Work Phone: [facility] Internal Medicine/Pediatrics Comment on above: Subacute sinusitis, unspecified location Start: 12-16-2023 End: 12-16-2023 Office outpatient visit 15 minutes Carrington Fritz MD Work Phone: [facility] Internal Medicine/Pediatrics Comment on above: Subacute sinusitis, unspecified location (Primary Dx); Anxiety Start: 12-16-2023 End: 12-16-[address] [facility] Start: 12-14-2023 End: 12-14-2023 Emergency department patient visit [facility] Start: 12-13-2023 End: 12-13-2023 ambulatory [facility] Start: 12-10-2023 End: 12-10-2023 ambulatory Eyal Garcia MD Work Phone: Neurology [facility] Comment on above: Atypical facial pain (Primary Dx); Muscular pain; Right facial pain Start: 12-10-2023 End: 12-10-2023 Telemedicine consultation with patient Eyal Garcia MD Work Phone: Neurology [facility] Start: 12-08-2023 End: 12-08-2023 Patient encounter procedure Tatyana SánchezShort Work Phone: Audiology Comment on above: Sensorineural hearin g loss, bilateral (Primary Dx); Otalgia of both ears; Ear pressure, bilateral; Occupational exposure to noise Dislocation of tempo romandibular joint, subsequent encounter (Primary Dx); Muscular pain Start: 11-24-2023 End: 11-24-2023 Office outpatient visit 15 minutes Carrington Fritz MD Work Phone: [facility] Comment on above: Oral thrush (Primary Dx); TMJ (temporomandibular joint disorder) Start: 11-24-2023 End: 11-24-2023 ambulatory CARRINGTON FRITZ [facility] Start: 11-23-2023 End: 11-23-2023 Telephone encounter Dahlia Kemal FAYE [facility] Internal Medicine/Pediatric[facility] Start: 11-16-2023 End: 11-18-2023 Subsequent hospital visit by physician Carmen Miller MD Work Phone: [facility] CT Scan Comment on above: Dysphagia, unspecifi ed type Start: 11-11-2023 End: 11-11-2023 Office outpatient new 45 minutes Carrington Fritz MD Work Phone: [facility] Internal Medicine/Pediatrics Comment on above: Arthralgia of right temporomandibular joint (Primary Dx); TMJ (temporomandibular joint disorder); Thrush; Onychomycosis of toenail Start: 10-28-2023 End: 10-28-2023 Emergency department patient visit Carmen Miller MD Work Phone: [facility] ED Comment on above: Jaw pain (Primary Dx ) Start: 08-26-2023 ambulatory Phillip Russo Facility:[facility] Start: 08-25-2023 End: 08-25-2023 FQHC visit, estab pt Colette Vuong INSTRUCTOR TRAINER CANINE SERVICE Work Phone: [facility] Work Phone: Start: 08-25-2023 End: 08-25-2023 General Colette Vuong INSTRUCTOR TRAINER CANINE SERVICE Work Phone: [facility] Work Phone: Start: 08-25-2023 End: 08-25-2023 FQHC visit, estab pt Colette Vuong INSTRUCTOR TRAINER CANINE SERVICE Work Phone: [facility] Work Phone: Start: 08-05-2023 ambulatory [facility] Start: 08-04-2023 End: 08-04-2023 Patient encounter [...] product; Former smoker Start: 07-15-2023 End: 07-15-2023 FQ visit, estab pt Colette Vuong CNP Work Phone: [facility] Work Phone: Start: 07-15-2023 End: 07-15-2023 General Colette Vuong CNP Work Phone: [facility] Work Phone: Start: 07-14-2023 End: 07-14-2023 [facility] Work Phone: [facility] Comment on above: Otalgia, right (Prim erika Dx); Sensorineural hearing loss (SNHL) of left ear with unrestricted hearing of right ear; Asymmetrical hearing loss; Nasal obstruction; Nasal congestion; DNS (deviated nasal septum); Former smoker Start: 07-14-2023 End: 07-14-2023 Clinical Support [facility] Ent Audio 1 [facility] Comment on above: Otalgia, right (Prim erika Dx); Sensation of fullness in right ear; Sensorineural hearing loss (SNHL) of left ear with unrestricted hearing of right ear Start: 06-28-2023 ambulatory SELF SELF [facility] Start: 06-03-2023 End: 06-03-2023 General Colette Vuong CNP Work Phone: [facility] Work Phone: Start: 06-03-2023 End: 06-03-2023 FQ visit, estab pt Colette Vuong CNP Work Phone: [facility] Work Phone: Start: 05-18-2023 ambulatory [facility] Start: 05-10-2023 End: 05-10-2023 FQHC visit, estab pt Colette Vuong INSTRUCTOR TRAINER CANINE SERVICE Work Phone: [facility] Work Phone: Start: 04-26-2023 End: 04-26-2023 ambulatory Colette Vuong INSTRUCTOR TRAINER CANINE SERVICE Work Phone: [facility] Work Phone: Start: 04-26-2023 End: 04-26-2023 General Colette Vuong INSTRUCTOR TRAINER CANINE SERVICE Work Phone: [facility] Work Phone: Start: 04-20-2023 ambulatory [facility] Start: 04-12-2023 End: 04-12-2023 FQHC visit, estab pt Bri Barrow [employer] Work Phone: [facility] Work Phone: Start: 04-12-2023 End: 04-12-2023 FQHC visit new patient Colette Vuong INSTRUCTOR TRAINER CANINE SERVICE Work Phone: [facility] Work Phone: Start: 03-30-2023 ambulatory [facility] Start: 03-15-2023 limited oral evaluat ion - problem focused Winston Carbajal DDS Work Phone: [facility] Start: 03-15-2023 End: 03-15-2023 Emergency department patient visit Winston Carbajal DDS Work Phone: [facility] Work Phone: Start: 02-15-2023 ambulatory Winston Carbajal DDS [facility] Start: 09-21-2022 End: 09-21-2022 Emergency department patient visit [facility] Start: 04-22-2022 End: 04-23-2022 Emergency department patient visit ALLIE BUSTAMANTE [facility] Start: 04-22-2022 End: 04-23-2022 Emergency department patient visit Allie Bustamante MD Work Phone: [facility] Comment on above: Delusions (CMS/HCC) (HCC) (Primary Dx); Paranoia (CMS/HCC) (HCC) Start: 04-19-2022 End: 04-19-2022 Emergency department patient visit MECHELLE REARDON [facility] Start: 04-19-2022 End: 04-19-2022 Emergency department patient visit Marlon Abebe MD Work Phone: [facility] ED Comment on above: TMJ (temporomandibul ar joint syndrome) (Primary Dx) Start: 02-18-2022 End: 02-24-2022 Evaluation and management of inpatient [facility] Start: 02-17-2022 Evaluation and manag ement of inpatient PHYSICIAN [facility] Start: 02-17-2022 End: 02-18-2022 Emergency department patient visit PHYSICIAN [facility] Start: 01-07-2022 Admission to [facility] Nicolas Rojo [facility] Start: 01-07-2022 ambulatory Nicolas Rojo [facility] Intake Comment on above: Psychiatric Problem (/) Start: 10-02-2020 End: 10-02-2020 Subsequent hospital visit by physician Mechelle Reardon MD Work Phone: [facility] [address] Start: 07-21-2018 End: 07-21-2018 Emergency department patient visit PREM AMARIRoberta [facility] Start: 10-29-2017 End: 10-29-2017 Emergency department patient visit NONE PHYSICIAN Facility:A Start: 10-23-2017 Emergency department patient visit Facility:[facility] Start: 08-13-2017 End: 08-13-2017 Emergency department patient visit Shaw Bermudez Facility:[facility] Start: 09-16-2016 Ambulatory [facility] Facility: [facility] Procedures Date Procedure Procedure Detail Performing Clinician Start: 12-14-2024 OTHER SERVICES - UNSPECIFIED REMOVABLE PROSTHODONTIC PROCEDURE Jud Rogers DDS, MS Work Phone: Start: 12-06-2024 Full PANORAMIC RADIOGRAPHIC IMAGE Alonso Clement DDS Work Phone: Start: 12-06-2024 COMPREHENSIVE ORAL EVAL - NEW/EST PATIENT Alonso Clement DDS Work Phone: Start: 12-06-2024 ORAL HYGIENE INSTRUCTIONS Alonso Clement Irving DS Work Phone: Start: 12-06-2024 1 EXTRACTION Attending [employer]user Start: 12-06-2024 Max COMPLETE DENTURE Attending [employer]user Start: 10-31-2024 Esophagogastroduodenoscopy transoral diagnostic Sofie Reed EDUCATIONAL PSYCHOLOGIST.INSTRUCTOR TRAINER CANINE SERVICE Work Phone: Start: 10-23-2024 Colonoscopy Gisel Roland MD Work Phone: Start: 09-22-2024 Ct cervical spine w/o contrast material Sandeep Eddie Vrabel EDUCATIONAL PSYCHOLOGIST-INSTRUCTOR TRAINER CANINE SERVICE Work Phone: Start: 09-22-2024 Ct maxillofacial w/o contrast material Sandeep C Vrabel EDUCATIONAL PSYCHOLOGIST-INSTRUCTOR TRAINER CANINE SERVICE Work Phone: Start: 07-10-2024 Mri brain brain stem w/o w/contrast material Kulwinder Nur MD Work Phone: Start: 07-10-2024 Radiologic exam swallow function contrast study Kulwinder Nur MD Work Phone: Start: 05-15-2024 Arthrocentesis aspir&/inj major jt/bursa w/o us Brandy BRISENO-C Work Phone: Start: 05-03-2024 Biopsy Biopsy FRAN-SARAHI VU Start: 04-26-2024 Mri any jt upper extremity w/o contrast matrl Brandy BRISENO-C Work Phone: Start: 04-14-2024 Iadna-dna/rna gi pthgn multiplex probe tq 12- Jose R Aquino MD Work Phone: Start: 04-06-2024 Body mass index documented Vanesa copeland [employer] Work Phone: Start: 04-06-2024 Collection venous blood venipuncture Vanesa Crouch [employer] Work Phone: Start: 04-06-2024 Current tobacco smoker Vanesa malik [employer] Work Phone: Start: 04-06-2024 Most recent diastol blood pres >/equal 90 mm hg Vanesa Crouch [employer] Work Phone: Start: 04-06-2024 Most recent systolic blood press 130-139mm hg Vanesa Crouch [employer] Work Phone: Start: 04-06-2024 Psychotherapy w/patient 30 minutes Roberto Barrow [employer] Work Phone: Start: 03-29-2024 Ct angiography head w/contrast/noncontrast Kay Bonus PA-C Work Phone: Start: 03-29-2024 Ct angiography neck w/contrast/noncontrast Kay Bonus PA-C Work Phone: Start: 03-06-2024 Current tobacco smoker Vanesa malik [employer] Work Phone: Start: 03-06-2024 Drug test prsmv read direct optical obs pr date Vanesa Crouch [employer] Work Phone: Start: 03-06-2024 Most recent diastolic blood pressure < 80 mm hg Vanesa Crouch [employer] Work Phone: Start: 03-06-2024 Most recent systolic blood pressure <130 mm hg Vanesa Crouch [employer] Work Phone: Start: 03-06-2024 Psychotherapy w/patient 30 minutes Samantha Quarles FLOUR INSPECTOR Work Phone: Start: 03-06-2024 Pt scrnd tobacco use rcvd tobacco cessation talk Vanesa Crouch [employer] Work Phone: Start: 01-06-2024 Mri brain brain stem w/o w/contrast material Eyal Garcia MD Work Phone: Start: 12-16-2023 Follow-up visit Follow-up CARRINGTON FRITZ Start: 12-09-2023 HEARING TEST/AUDIOGRAM Tatyana Crowley UD Work Phone: Start: 11-16-2023 Ct soft tissue neck w/contrast material Carmen Miller MD Work Phone: Start: 11-11-2023 Adult depression screening assessment Carrington Fritz MD Work Phone: Start: 10-28-2023 Radiolog exam mandible compl minimum 4 views Dai Gustafson APRN - [facility] Work Phone: Start: 08-25-2023 Body mass index documented Colette coleman INSTRUCTOR TRAINER CANINE SERVICE Work Phone: Start: 08-25-2023 Current tobacco non-user cad cap copd pv dm Colette Vuong INSTRUCTOR TRAINER CANINE SERVICE Work Phone: Start: 08-25-2023 Drug test prsmv read direct optical obs pr date Colette Vuong INSTRUCTOR TRAINER CANINE SERVICE Work Phone: Start: 08-25-2023 Most recent diastolic blood pressure < 80 mm hg Colette Vuong INSTRUCTOR TRAINER CANINE SERVICE Work Phone: Start: 08-25-2023 Most recent systolic blood pressure <130 mm hg Colette Vuong CNP Work Phone: Start: 07-15-2023 Behav assmt w/score & docd/stand instrument Colette Vuong INSTRUCTOR TRAINER CANINE SERVICE Work Phone: Start: 07-15-2023 Current tobacco non-user cad cap copd pv dm Colette Vuong INSTRUCTOR TRAINER CANINE SERVICE Work Phone: Start: 07-15-2023 Depression screening Visit For: Screening Exam Depression Colette Vuong CNP Work Phone: Start: 07-15-2023 Most recent diastolic blood pressure 80-89 mm hg Colette Vuong CNP Work Phone: Start: 07-15-2023 Most recent systolic blood press 130-139mm hg Colette Yevgeniy INSTRUCTOR TRAINER CANINE SERVICE Work Phone: Start: 07-15-2023 Pt scrnd tobacco use rcvd tobacco cessation talk Colette Vuong INSTRUCTOR TRAINER CANINE SERVICE Work Phone: Start: 06-03-2023 Current tobacco smoker Colette Morgan RAW STOCK MACHINE LOADER Work Phone: Start: 06-03-2023 Most recent diastolic blood pressure < 80 mm hg Colette Vuong INSTRUCTOR TRAINER CANINE SERVICE Work Phone: Start: 06-03-2023 Most recent systolic blood pressure <130 mm hg Colette Vuong INSTRUCTOR TRAINER CANINE SERVICE Work Phone: Start: 06-03-2023 Venereal disease screening Visit For: Screening Exam Std Colette Vuong INSTRUCTOR TRAINER CANINE SERVICE Work Phone: Start: 05-10-2023 Current tobacco non-user cad cap copd pv dm Colette Vuong INSTRUCTOR TRAINER CANINE SERVICE Work Phone: Start: 05-10-2023 Most recent diastolic blood pressure < 80 mm hg Colette Vuong INSTRUCTOR TRAINER CANINE SERVICE Work Phone: Start: 05-10-2023 Most recent systolic blood pressure <130 mm hg Colette Vuong INSTRUCTOR TRAINER CANINE SERVICE Work Phone: Start: 05-10-2023 Pt scrnd tobacco use rcvd tobacco cessation talk Colette Vuong INSTRUCTOR TRAINER CANINE SERVICE Work Phone: Start: 04-26-2023 Current tobacco smoker Colette Morgan RAW STOCK MACHINE LOADER Work Phone: Start: 04-26-2023 Most recent diastolic blood pressure < 80 mm hg Colette Vuong INSTRUCTOR TRAINER CANINE SERVICE Work Phone: Start: 04-26-2023 Most recent systolic blood pressure <130 mm hg Colette Vuong INSTRUCTOR TRAINER CANINE SERVICE Work Phone: Start: 04-26-2023 Pt scrnd tobacco use rcvd tobacco cessation talk Colette Vuong INSTRUCTOR TRAINER CANINE SERVICE Work Phone: Start: 04-12-2023 Current tobacco smoker Colette Morgan RAW STOCK MACHINE LOADER Work Phone: Start: 04-12-2023 Hemoglobin glycosylated a1c Colette winchestere INSTRUCTOR TRAINER CANINE SERVICE Work Phone: Start: 04-12-2023 Hepatitis c antibody Colette Vuong INSTRUCTOR TRAINER CANINE SERVICE Work Phone: Start: 04-12-2023 Most recent diastolic blood pressure < 80 mm hg Colette Vuong INSTRUCTOR TRAINER CANINE SERVICE Work Phone: Start: 04-12-2023 Most recent hemoglobin a1c level < 7.0% Colette Vuong INSTRUCTOR TRAINER CANINE SERVICE Work Phone: Start: 04-12-2023 Most recent systolic blood pressure <130 mm hg Colette Vuong INSTRUCTOR TRAINER CANINE SERVICE Work Phone: Start: 04-12-2023 Operative procedure on hand Winston sam DDS Work Phone: Start: 04-12-2023 Psychotherapy w/patient 30 minutes Roberto Barrow CORPORATE JOB TITLES Work Phone: Start: 04-12-2023 Pt scrnd tobacco use rcvd tobacco cessation talk Colette Vuong INSTRUCTOR TRAINER CANINE SERVICE Work Phone: Start: 03-15-2023 panoramic radiographic image Winston sigala DDS Work Phone: Start: 01-12-2023 Lipid 1996 panel - Serum or Plasma Dash Calle CCC-JOB DEVELOPMENT SPECIALIST Start: 09-21-2022 End: 09-21-2022 EKG impression Ezequiel Marcos Start: 04-22-2022 Urinalysis complete panel - Urine Tamar Tolbert PA-C Work Phone: Start: 04-22-2022 Urnls dip stick/tablet rgnt auto w/o microscopy Laurita Tolbert PA-C Work Phone: Start: 04-22-2022 SARS-CoV-2 (COVID-19) Ag [Presence] in Respiratory specimen by Rapid immunoassay Laurita Tolbert PA-C Work Phone: Start: 04-22-2022 Comprehensive metabolic panel Laurita spann PA-C Work Phone: Start: 04-22-2022 End: 04-22-2022 Drug test def 1-7 classes Laurita Tolbert PA-C Work Phone: Start: 04-22-2022 Ecg routine ecg w/least 12 lds trcg only w/o i&r Laurita Tolbert PA-C Work Phone: Start: 04-22-2022 Ct head/brain w/o contrast material Apryl Tolbert PA-C Work Phone: Start: 02-18-2022 Lipid 1996 panel - Serum or Plasma Kai Kirkland APRN.INSTRUCTOR TRAINER CANINE SERVICE Work Phone: Start: 10-02-2020 Comprehensive metabolic panel Mehcelle peng MD Work Phone: Start: 10-02-2020 Lipid panel Mechelle Reardon MD Work Phone: Start: 10-02-2020 Lipid 1996 panel - Serum or Plasma Marlon Abebe MD Work Phone: Start: 08-10-2018 Follow-up visit Start: 08-10-2018 Follow-up visit Plan of Treatment Date Care Activity Detail Author Start: 10-23-2034 Screening for malignant neoplasm of colon [facility] Start: 03-08-2034 DTaP,Tdap and Td Vaccines (2 - Td or Tdap) DTaP,Tdap and Td Vaccines (2 - Td or Tdap) [facility] Start: 03-08-2034 DTaP/Tdap/Td vaccine (2 - Td or Tdap) DTaP/Tdap/Td vaccine (2 - Td or Tdap) [facility] Start: 03-08-2034 DTaP/Tdap/Td Vaccines (2 - Td or Tdap) DTaP/Tdap/Td Vaccines (2 - Td or Tdap) [facility] Start: 03-08-2034 Tetanus vaccination TETANUS [facility] Start: 03-08-2034 Urine microalbumin profile DTaP,Tdap,Td Vaccine (2 - Td or Tdap) [facility] Start: 01-13-2028 Lipid panel [facility] Start: 04-14-2027 Diabetes Screening Diabetes Screening [facility] Start: 02-18-2027 Lipid panel Lipid Screening [facility] Start: 12-16-2026 Diabetes Screening Diabetes Screening [facility] Start: 07-21-2026 Diabetes Screening Diabetes Screening [facility] Start: 02-11-2026 Zoster Vaccines (1 of 2) Zoster Vaccines (1 of 2) [facility] Start: 11-28-2025 Adult BMI Screening Adult BMI Screening [facility] Start: 11-28-2025 Tobacco Screening Tobacco Screening [facility] Start: 11-17-2025 Adult BMI Screening Adult BMI Screening [facility] Start: 11-17-2025 Tobacco Screening Tobacco Screening [facility] Start: 11-10-2025 Tobacco Screening Tobacco Screening [facility] Start: 10-23-2025 Adult BMI Screening Adult BMI Screening [facility] Start: 10-23-2025 Screening for malignant neoplasm of colon [facility] Start: 10-23-2025 Tobacco Screening Tobacco Screening [facility] Start: 10-19-2025 Adult BMI Screening Adult BMI Screening [facility] Start: 10-19-2025 Tobacco Screening Tobacco Screening [facility] Start: 10-03-2025 Adult BMI Screening Adult BMI Screening [facility] Start: 10-03-2025 Tobacco Screening Tobacco Screening [facility] Start: 10-02-2025 Lipid panel [facility] Start: 09-15-2025 Adult BMI Screening Adult BMI Screening [facility] Start: 09-05-2025 Tobacco Screening Tobacco Screening [facility] Start: 08-18-2025 Adult BMI Screening Adult BMI [...] Tobacco Screening [facility] Start: 06-07-2025 Dental Oral Exam Dental Oral Exam [facility] Start: 06-01-2025 Adult BMI Screening Adult BMI [...] tem Start: 04-27-2025 Diabetes screen Diabetes screen [facility] Start: 04-13-2025 Tobacco Screening Tobacco Screening [facility] Start: 03-24-2025 Tobacco Screening Tobacco Screening [facility] Start: 03-16-2025 Adult BMI Screening Adult BMI Screening [facility] Start: 03-16-2025 Tobacco Screening Tobacco Screening [facility] Start: 03-15-2025 Adult BMI Screening Adult BMI Screening [facility] Start: 03-05-2025 End: 03-05-2025 Patient encounter procedure 03/05/2025 2:45 PM EST Office Visit [facility] [address] [facility] [address] [place] [address] Kulwinder Nur MD [address] [facility] [address] [place], [place] [phone] 4 MOS FUP [facility] Neurology Comment on above: 4 MOS FUP Start: 02-16-2025 Adult BMI Screening Adult BMI Screening [facility] Start: 02-16-2025 Tobacco Screening Tobacco Screening [facility] Start: 02-08-2025 Adult BMI Screening Adult BMI Screening [facility] Start: 02-08-2025 Tobacco Screening Tobacco Screening [facility] Start: 02-06-2025 End: 02-06-2025 ambulatory 02/06/2025 1:00 PM EST [facility] [address] [place] [address] David Vazquez MD [address] [place] [address] esophagitis Gastroenterology Comment on above: esophagitis Start: 02-03-2025 Adult BMI Screening Adult BMI [...] tem Start: 01-07-2025 DIABETES SCREEN DIABETES SCREEN [facility] Start: 12-25-2024 End: 12-25-2024 Patient encounter procedure 12/25/2024 3:30 PM EDT Office Visit Dermatology [address] [address] Xander Cook MD [address] [place] [address] Severe Dry Skin around Scalp Dermatology Comment on above: Severe Dry Skin around Scalp Start: 12-21-2024 Adult BMI Screening Adult BMI [...] Tobacco Screening [facility] Start: 12-05-2024 End: 12-05-2024 Patient encounter procedure 12/05/2024 3:00 PM EDT Appointment [facility]ANC[facility] FRANCOIS SPEE[facility] [place] [address] Fatuma Khanna, FREDIS 1x /week for 6 weeks for 45 minutes. (Fatuma Kiser Kristen) KD [facility] Comment on above: 1x /week for 6 weeks for 45 minutes. (Fatuma Calderon Kristen) SHALINI Start: 11-30-2024 End: 11-30-2024 Patient encounter procedure 11/30/2024 3:00 PM EDT Appointment [facility] [address] [place] [address] Danielle Kim, FREDIS 1x /week for 6 weeks for 45 minutes. (Fatuma Kiser Kristen) KD [facility] Comment on above: 1x /week for 6 weeks for 45 minutes. (Fatuma Calderon Kristen) SHALINI Start: 11-28-2024 End: 11-28-2024 Patient encounter procedure 11/28/2024 1:45 PM EDT Office Visit [facility] [address] [place] [address] Gold Jones PA [address] [facility], 2nd [place] [address] [facility] Start: 11-24-2024 End: 11-24-2024 Patient encounter procedure 11/24/2024 3:30 PM EDT Office Visit Neurology [address] [place] [address] Juan F Wright DO [address] [place] [address] [place] f/u Neurology Comment on above: [place] f/u Start: 11-23-2024 Adult BMI Screening [facility]ening [facility] Start: 11-23-2024 Tobacco Screening [facility] Start: 11-21-2024 End: 11-21-2024 Patient encounter procedure 11/21/2024 4:00 PM EDT Appointment [facility] [address] [place] [address] Fatuma Khanna, RFEDIS 1x /week for 6 weeks for 45 minutes. (Fatuma Kiser Kristen) KD [facility] Comment on above: 1x /week for 6 weeks for 45 minutes. (Fatuma Calderon Kristen) SHALINI Start: 11-14-2024 End: 11-14-2024 Patient encounter procedure 11/14/2024 4:00 PM EDT Appointment [facility] [address] [place] [address] Fatuma Khanna, FREDIS 1x /week for 6 weeks for 45 minutes. (Fatuma Kiser Kristen) SHALINI [facility] SPEE[facility] Comment on above: 1x /week for 6 weeks for 45 minutes. (Fatuma Calderon Kristen) KD Start: 11-10-2024 Adult BMI Screening Adult BMI Screening [facility] Sys tem Start: 11-10-2024 Depression Screening Depression Screening [facility] S [facility] Start: 11-10-2024 Tobacco Screening [facility] Screening [facility] Start: 11-10-2024 End: 11-10-2024 Patient encounter procedure 11/10/2024 1:40 PM EDT Office Visit Internal Medicine [place] [address] [place], [place] [phone] Sammie Landa APRN.LITIGATION ATTORNEY ASSOCIATE [address] [place], [place] [phone] EST CARE/PHYSICAL [facility] [place] Comment on above: EST CARE/PHYSICAL Start: 11-10-2024 End: 11-10-2024 Admission to same day surgery center [facility] - Pain Procedures Comment on above: INJECTION BURSA LARGE JOINT: bilat tmj [ (CPT )] INJECTION BURSA INTE RMEDIATE Isauro TMJ [ (CPT )] Start: 11-10-2024 End: 11-10-2024 Arthrocentesis aspir&/inj interm jt/burs w/o us INJECTION BURSA INTERMEDIATE TMJ (temporomandibular joint disorder) 11/10/2024 9:07 AM EDT [facility] Start: 11-10-2024 End: 11-10-2024 Arthrocentesis aspir&/inj major jt/bursa w/o us INJECTION BURSA LARGE JOINT TMJ (temporomandibular joint disorder) 11/10/2024 9:07 AM EDT [facility] Start: 11-10-2024 Subsequent hospital visit by physician 11/10/2024 9:07 AM EDT Hospital Encounter [facility] - Pain Procedures [address] [place] [address] Laurence Blankenship MD [address] [place], [place] [phone] [facility] Start: 11-07-2024 End: 11-07-2024 Patient encounter procedure 11/07/2024 4:00 PM EDT Appointment BLANCHE FRANCOIS SPEECH [address] [place] [address] Fatuma Khanna SLP 1x /week for 6 weeks for 45 minutes. (Fatuma Kiser Kristen) KD [facility] Comment on above: 1x /week for 6 weeks for 45 minutes. (Fatuma Calderon Kristen) KD Start: 11-06-2024 COVID-19 VACCINE ( season) COVID-19 VACCINE ( season) [facility] Start: 11-06-2024 Influenza vaccination [facility] Start: 11-02-2024 End: 11-02-2024 Patient encounter procedure 11/02/2024 3:00 PM EDT Office Visit [facility] Neurology [address] [place] [phone] Kulwinder Nur MD [address] [place] [address] R/S 3 mos fup FROM 07/26/24 [facility] Neurology Comment on above: R/S 3 mos fup FROM 07/26/24 Start: 10-31-2024 End: 10-31-2024 Patient encounter procedure 10/31/2024 9:00 AM EDT Appointment Gastroenterology [address] [place] [phone] David Vazquez MD [address] [place] [address] Dysphagia, unspecified type [R13.10] Gastroenterology Comment on above: Dysphagia, unspecified type [R13.10] Start: 10-27-2024 End: 10-27-2024 Clinical Support [facility] Building Start: 10-25-2024 End: 10-25-2024 Patient encounter procedure Neurology Comment on above: Facial lupillo. Injection sooner Arrived Start: 10-23-2024 End: 10-23-2024 Admission to same day surgery center [facility] Surgery Comment on above: COLONOSCOPY DIAGNOSTIC / SCREENING [G012 1 +1 more] Start: 10-23-2024 End: 10-23-2024 Colon ca scrn not [facility] Start: 10-23-2024 Subsequent hospital visit by physician [facility] Start: 10-19-2024 End: 10-19-2024 Patient encounter procedure 10/19/2024 2:15 PM EDT Office Visit [facility] [address] [place] [phone] Gold Jones, PA [address] [place] [address] [facility] Start: 10-18-2024 End: 10-18-2024 Patient encounter procedure 10/18/2024 1:40 PM EDT Office Visit Otolaryngology [address] [place] [address] [address] [place] [address] Diya Bonilla MD [address] [place] [address] stiff from ear to left nostril stiff and avril num Otolaryngology Comment on above: stiff from ear to left nostril stiff and avril num Start: 10-17-2024 End: 10-17-2024 ambulatory 10/17/2024 3:40 PM EDT Support Visit [facility] - Pre Admit [address] [place] [phone] [facility] - Pre Admit Start: 10-17-2024 End: 10-17-2024 Patient encounter procedure 10/17/2024 10:30 AM EDT Office Visit Gastroenterology [address] [address] Sofie Reed, EDUCATIONAL PSYCHOLOGIST.INSTRUCTOR TRAINER CANINE SERVICE [address] [place] [address] Trouble swallowing - currently in swallow therapy Gastroenterology Comment on above: Trouble swallowing - currently in swallo w therapy Start: 10-11-2024 End: 10-11-2024 Patient encounter procedure [facility] Comment on above: Arrived Start: 10-06-2024 Influenza vaccination Flu vaccine (#1) [facility] Start: 10-03-2024 End: 10-03-2024 Patient encounter procedure 10/03/2024 1:30 PM EDT [facility] [address] [place] [phone] Azeb An, EDUCATIONAL PSYCHOLOGIST-INSTRUCTOR TRAINER CANINE SERVICE [address] [place] [address] [facility] Start: 10-02-2024 End: 10-02-2024 Patient encounter procedure 10/02/2024 11:00 AM EDT Office Visit [facility] [address] [place], [place] [phone] Sammie Landa APRN.LITIGATION ATTORNEY ASSOCIATE [address] [place], [place] [phone] est care [facility] Comment on above: est care Start: 09-27-2024 End: 09-27-2025 XR Cervical spine 2 or 3 Views [facility] Service Area Work Phone: Comment on above: Expected: 09/27/2024, Expires: Once for 1 Occurrenc es starting 09/27/2024 until 09/27/2024 Start: 09-27-2024 Subsequent hospital visit by physician 09/27/2024 11:09 AM EDT Hospital Encounter [facility] Medical Office Building [address] [facility] [address] [place] [phone] Neck pain [facility] Medical Office [facility] Comment on above: Neck pain Start: 09-27-2024 End: 09-27-2024 ambulatory 09/27/2024 8:00 AM EDT OT/PT/Speech Visit [facility] Speech Therapy [address] [place] [phone] Yoli Hankins, CCC-JOB DEVELOPMENT SPECIALIST [address] [place] [address] [facility] Speech Therapy Comment on above: ST Start: 09-25-2024 End: 09-25-2024 Clinical Support 09/25/2024 10:15 AM EDT Clinical Support [facility] Medical Office Building [address] [facility] [address] [place] [phone] [facility] Building Start: 09-20-2024 End: 09-20-2024 ambulatory 09/20/2024 7:30 AM EDT OT/PT/Speech Visit [facility] Speech Therapy [address] [place] [phone] He Calle, CCC-JOB DEVELOPMENT SPECIALIST [address] [place] [address] [facility] Speech Therapy Comment on above: ST Start: 09-15-2024 End: 09-15-2024 Patient encounter procedure 09/15/2024 1:45 PM EDT Appointment [facility] [address] [place] [address] Carrington Fritz MD [address] [place] [address], [address] [place] [address] [facility] Imaging Start: 09-15-2024 End: 09-15-2024 Admission to same day surgery center [facility] - Pain Procedures Comment on above: INJECTION BURSA INTERMEDIATE Bilat TMJ [ (CPT )] Start: 09-15-2024 End: 09-15-2024 Arthrocentesis aspir&/inj interm jt/burs w/o us [facility] Start: 09-15-2024 Subsequent hospital visit by physician [facility] Pain Procedures Start: 09-13-2024 End: 09-13-2024 ambulatory 09/13/2024 7:30 AM EDT OT/PT/Speech Visit [facility] Speech Therapy [address] [place] [phone] He Calle, CCC-JOB DEVELOPMENT SPECIALIST [address] [place], [place] [phone] [place] [address] Speech Therapy Comment on above: ST Start: 09-07-2024 End: 09-07-2024 Patient encounter procedure 09/07/2024 8:50 AM EDT Office Visit Otolaryngology [address] [address] Callie Don PA [address] [place] [address] THROAT ISSUE, SWALLOWING ISSUE, MOUTH Otolaryngology Comment on above: THROAT ISSUE, SWALLOWING ISSUE, MOUTH Start: 09-06-2024 End: 09-06-2024 ambulatory 09/06/2024 7:30 AM EDT OT/PT/Speech Visit [facility] Speech Therapy [address] [place] [phone] He Calle, CCC-JOB DEVELOPMENT SPECIALIST [address] [place] [address] [facility] Speech Therapy Comment on above: Start: 09-01-2024 End: 09-01-2024 Patient encounter procedure 09/01/2024 12:45 PM EDT Office Visit Dermatology [place] [address] [place] [phone] Erica Hart MD [address] [place] [address] Dermatitis [facility] [place] Comment on above: Dermatitis Start: 08-31-2024 Adult [...] EDT Office Visit [facility] [address] [place] [phone] Carrington Fritz MD [address] [place] [address], [address] [place], [place] [phone] [facility] Start: 08-16-2024 Tobacco Screening [facility] Start: 08-15-2024 Adult BMI Screening Adult BMI Screening [facility] Start: 08-15-2024 Tobacco Screening [facility] Start: 08-15-2024 End: 08-15-2024 Patient encounter procedure 08/15/2024 10:45 AM EDT Office Visit [facility] [address] [place] [address] Gold Jones PA [address] [place] [address] [facility] Start: 08-14-2024 End: 08-14-2024 ambulatory 08/14/2024 9:45 AM EDT OT/PT/Speech Visit [facility] Speech Therapy [address] [place] [address] He Calle, CCC-JOB DEVELOPMENT SPECIALIST [address] [place] [address] Jaw pain [R68.84] [facility] Speech Therapy Comment on above: Jaw pain [R68.84] Start: 08-10-2024 End: 08-10-2024 Patient encounter procedure 08/10/2024 9:00 AM EDT Office Visit Infectious Disease [address] [place] [address] [place] [address] [place], [place] [phone] Black hairy tongue Infectious Disease Comment on above: Black hairy tongue Start: 08-01-2024 End: 08-01-2024 ambulatory 08/01/2024 6:00 PM EDT OT/PT/Speech Visit [facility] Speech Therapy [address] [place] [address] Antonia Coffman, CCC-JOB DEVELOPMENT SPECIALIST [address] [place], [place] [phone] I've been told the floor of my mouth is broken [facility] Speech Therapy Comment on above: I've been told the floor of my mouth is broken Start: 07-28-2024 End: 07-28-2024 Patient encounter procedure 07/28/2024 2:00 PM EDT Office Visit Otolaryngology [address] [address] Donal Hays MD [address] [place] [address] post op Otolaryngology Comment on above: post op Start: 07-26-2024 End: 07-26-2024 Patient encounter procedure 07/26/2024 2:00 PM EDT Office Visit [facility] [address] [place] [address] Kulwinder Nur MD [address] [place] [address] 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], Hypertrophy of inferior nasal turbinate [J34.3], Deviated nasal septum [J34.2] Admitting Comment on above: 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], Refra ctory obstruction of nasal airway [J34.89], Hypertrophy of inferior nasal turbinate [J34.3], Deviated nasal septum [J34.2] Start: 07-13-2024 Adult BMI Screening Adult BMI Screening [facility] Start: 07-13-2024 Tobacco Screening Tobacco Screening [facility] Start: 07-07-2024 End: 07-07-2024 Patient encounter procedure 07/07/2024 1:00 PM EDT Appointment [facility] [address] [place] [phone] [facility] Start: 07-06-2024 End: 07-06-2024 Anesthesia consultation 07/06/2024 1:40 PM EDT PAT Pre Anesthesia [address] [place] [address] 2, Pacc [facility] [address] [place] [address] pacc Pre Anesthesia Comment on above: pacc Start: 07-04-2024 End: 07-04-2024 Patient encounter procedure 07/04/2024 12:30 PM EDT Office Visit [facility] [address] [place] [address] Gold Jones PA [address] [facility], 2nd Floor [place], [place] [id number] [facility] Start: 07-04-2024 End: 07-04-2024 Patient encounter procedure 07/04/2024 10:10 AM EDT Office Visit Otolaryngology [address] [place] [address] Luis Enrique Small MD [address] [place] [address] left facial pain Otolaryngology Comment on above: left facial pain Start: 06-20-2024 End: 06-20-2024 Patient encounter procedure 06/20/2024 2:30 PM EDT Office Visit Dermatology [place] [address] [place] [phone] Erica Hart MD [address] [place] [address] severe dry skin around scalp [facility]at[facility] [place] Comment on above: severe dry skin around scalp Start: 06-16-2024 End: 06-16-2024 Patient encounter procedure 06/16/2024 2:45 PM EDT Appointment [facility] - [address] [phone] [facility] Start: 06-16-2024 End: 06-16-2024 Admission to same day surgery center [facility] Comment on [...] physician 06/16/2024 8:09 AM EDT Hospital Encounter [facility] [address] [place] [address] Laurence Blankenship MD [address] [place], [place] [address] [facility] Start: 06-13-2024 End: 06-13-2024 Patient encounter procedure [facility] Comment on above: severe dry skin around scalp Start: 06-12-2024 End: 06-12-2024 Patient encounter procedure 06/12/2024 2:15 PM EDT Appointment [facility] - MR [address] [place] [phone] [facility] - Start: 06-06-2024 End: 06-06-2024 Patient encounter procedure 06/06/2024 1:00 PM EDT Appointment [facility] [address] [facility] [address] [facility] Start: 06-01-2024 End: 06-01-2025 MRA Head vessels WO contrast MRA head without contrast Imaging Routine Facial pain Expected: 06/01/2024, Expires: 06/01/2025 [facility] Work Phone: Comment on above: Expected: 06/01/2024, Expires: Start: 06-01-2024 End: 06-01-2024 Patient encounter procedure 06/01/2024 10:45 AM EDT Office Visit [facility] [address] [place] [phone] Carrington Fritz MD [address] [place] [address], 1 [place], [place] [phone] [facility] Start: 05-30-2024 End: 05-30-2024 Patient encounter procedure 05/30/2024 12:00 PM EDT Office Visit [facility] [address] [place] [phone] Gold Jones PA [address], 2nd Floor [place], [place] [phone] [facility] Start: 05-29-2024 End: 05-29-2024 Patient encounter procedure 05/29/2024 2:15 PM EDT Office Visit Facial Plastics/Reconstruction [address] [place] [address] Donal Hays MD [address] [place], [place] [phone] caudal septal deviatioin [facility] Comment on above: caudal septal deviatioin Start: 05-26-2024 End: 05-26-2024 Patient encounter procedure 05/26/2024 1:45 PM EDT Appointment [facility] [address] [place] [address] Carrington Fritz MD [address] [place] [address], 1 [place] [address] [facility] Start: 05-22-2024 End: 05-22-2024 Patient encounter procedure 05/22/2024 4:00 PM EDT Office Visit [facility] [address] [place] [address] [place] [address] Gabe Marin, EDUCATIONAL PSYCHOLOGIST.INSTRUCTOR TRAINER CANINE SERVICE [address] [place] [address] follow up [facility] Comment on above: follow up Start: 05-19-2024 End: 05-19-2024 Patient encounter procedure 05/19/2024 6:40 PM EDT Appointment Radiology [address] [place] [address] CERVICAL SPINE WO IVCON Radiology Comment on above: CERVICAL SPINE WO IVCON Start: 05-17-2024 End: 05-17-2024 Patient encounter procedure 05/17/2024 10:00 AM EDT Office Visit [facility] [address] [facility] [address] [place] [phone] Chava Rapp MD [address] [facility], [address] [address] [facility] Start: 05-15-2024 End: 05-15-2024 Patient encounter procedure 05/15/2024 3:00 PM EDT Office Visit Orthopaedics [address] [place] [address] [place] [address] Brandy Erickson, PA-C [facility] [address] [place], [place] [phone] Left shoulder pain, requesting cortisone Orthopaedics Comment on above: Left shoulder pain, requesting cortisone Start: 05-12-2024 End: 05-12-2024 Patient encounter procedure 05/12/2024 3:00 PM EST Office Visit [facility]ial Plastics/Reconstruction [address] [place] [address] Donal Hays MD [address] [place], [place] [phone] caudal septal deviatioin [facility] Comment on above: caudal septal deviatioin Start: 05-11-2024 End: 05-11-2024 Patient encounter procedure 05/11/2024 4:00 PM EST Appointment Radiology [address] [place] [address] Cervicalgia [M54.2] Radiology Comment on above: Cervicalgia [M54.2] Start: 05-08-2024 End: 05-08-2024 Patient encounter procedure 05/08/2024 2:45 PM EST Appointment [facility]mani [facility] [place] [facility] [address] [place] [phone] [facility] Start: 05-03-2024 End: 05-03-2024 Patient encounter procedure 05/03/2024 2:30 PM EST [facility] [address] [place] [address] Cervicalgia; Localized swelling, mass or lump of neck [facility] Comment on above: Cervicalgia; Localized swelling, mass or lump of neck Start: 05-03-2024 End: 05-03-2024 Patient encounter procedure 05/03/2024 11:15 AM EST Procedure visit [facility] [address] [facility] [address] [place] [address] [facility], [address] [facility] [address] [place] [address] [facility] Start: 05-01-2024 End: 05-01-2025 MR Face WO and W contrast IV MR face with and without contrast Imaging Routine Facial pain Expected: 05/01/2024, Expires: 05/01/2025 [facility] Work Phone: Comment on above: Expected: 05/01/2024, Expires: Start: 04-26-2024 End: 04-26-2024 Patient encounter procedure 04/26/2024 12:40 PM EST Appointment Radiology [address] [place] [address] mri shoulder wo ivcon left, pt has hard time laying on back Radiology Comment on above: mri shoulder wo ivcon left, pt has hard time laying on back Start: 04-26-2024 Subsequent hospital visit by physician 04/26/2024 12:11 PM EST Hospital Encounter Radiology [address] [place] [address] Acute pain of left shoulder [M25.512] Radiology Comment on above: Acute pain of left shoulder [M25.512] Start: 04-24-2024 End: 04-24-2024 Patient encounter procedure 04/24/2024 2:00 PM EST Office Visit [facility] [address] [place] [address] [place], [place] [phone] Gabe Marin, EDUCATIONAL PSYCHOLOGIST.INSTRUCTOR TRAINER CANINE SERVICE [address] [place] [address] Routine [facility] Comment on above: Routine Start: 04-21-2024 End: 04-21-2024 Patient encounter procedure 04/21/2024 8:55 AM EST Office Visit Otolaryngology [address] [address] Diya Bonilla MD [address] [address] DNS (deviated nasal septum) [J34.2] / ORAL INFECTION Otolaryngology Comment on above: DNS (deviated nasal septum) [J34.2] / OR AL INFECTION Start: 04-14-2024 End: 07-14-2024 Immunodeficiency panel - Blood by Flow cytometry (FC) [facility] Work Phone: Comment on above: Expected: 04/14/2024, Expires: Start: 04-13-2024 CBC W Auto Differential panel - Blood [facility] Start: 04-13-2024 Comprehensive metabolic 2000 panel - Serum or Plasma Comp. Metabolic Panel (14) [facility] Start: 04-13-2024 End: 04-13-2024 Patient encounter procedure 04/13/2024 9:15 AM EST Office Visit [facility] [address] [place] [phone] Gold Jones, SUZANNA [address], [address]nd [place] [address] [facility] Start: 04-11-2024 End: 04-11-2024 Patient encounter procedure 04/11/2024 1:00 PM EST Office Visit Otolaryngology [address] [place], [place] [phone] Carlos Lebron MD [address] [place] [address] DNS Otolaryngology Comment on above: DNS Start: 04-07-2024 End: 04-07-2024 Patient encounter procedure General Radiology Comment on above: X-ray left shoulder Left shoulder pain Start: 04-06-2024 FQHC visit, estab pt Medical Established Patient [facility] Work Phone: Start: 04-06-2024 End: 04-06-2024 Patient education based on identified need [facility] Start: 04-05-2024 Hepatitis A vaccine (2 of 3 - Hep A Twinrix risk 3-dose series) Hepatitis A vaccine (2 of 3 - Hep A Twinrix risk 3-dose series) [facility] Start: 04-05-2024 Hepatitis A Vaccines (2 of 3 - Hep A Twinrix risk 3-dose series) Hepatitis A Vaccines (2 of 3 - Hep A Twinrix risk 3-dose series) [facility] Start: 04-05-2024 Hepatitis B vaccination HEP B VACCINE (2 of 3 - Hep B Twinrix 3-dose series) [facility] Start: 04-05-2024 Hepatitis B Vaccine (2 of 3 - Hep B Twinrix 3-dose series) Hepatitis B Vaccine (2 of 3 - Hep B Twinrix 3-dose series) [facility] Start: 04-05-2024 Hepatitis B Vaccines (2 of 3 - Hep B Twinrix 3-dose series) Hepatitis B Vaccines (2 of 3 - Hep B Twinrix 3-dose series) [facility] Start: 03-29-2024 End: 06-28-2024 Bacteria identified in Wound by Culture [facility] Work Phone: Comment on above: Expected: 03/29/2024, Expires: Start: 03-29-2024 End: 06-28-2024 Fungus identified in Unspecified specimen by Culture [facility] Comment on above: Expected: 03/29/2024, Expires: Start: 03-29-2024 End: 03-29-2024 Patient encounter procedure 03/29/2024 1:00 PM EST Office Visit Otolaryngology [address] [place] [address] Lyn Shipman PA-C [address] [place] [phone] My nose , throat , tongue and cheeks are raw. Otolaryngology Comment on above: My nose , throat , tongue and cheeks are raw. Start: 03-24-2024 End: 03-24-2024 Admission to same day surgery center 03/24/2024 8:09 AM EST - 03/24/2024 8:16 AM EST Surgery [facility] [address] [place] [phone] Laurence Blankenship MD [address] [place], [place] [phone] INJECTION BURSA INTERMEDIATE Bilat TMJ [ (CPT )] [facility] Comment on above: INJECTION BURSA INTERMEDIATE Bilat TMJ [ (CPT )] Start: 03-24-2024 End: 03-24-2024 Arthrocentesis aspir&/inj interm jt/burs w/o us INJECTION BURSA INTERMEDIATE TMJ (temporomandibular joint disorder) 03/24/2024 8:09 AM EST [facility] Start: 03-24-2024 Subsequent hospital visit by physician 03/24/2024 8:09 AM EST Hospital Encounter [facility] [address] [place] [address] Laurence Blankenship MD [address] [place], [place] [phone] [facility] Start: 03-23-2024 End: 03-23-2024 Patient encounter procedure 03/23/2024 1:00 PM EST Appointment Radiology [address] [place] [address] CTA Head W IV CON,CTA Neck W IV Con Radiology Comment on above: CTA Head W IV CON,CTA Neck W IV Con Start: 03-16-2024 End: 03-16-2024 Patient encounter procedure 03/16/2024 11:30 AM EST Office Visit [facility] [address] [place] [address] 1 [place] [address] Carrington Fritz MD [address] [place] [address], [address] [place] [address] [facility] Start: 03-15-2024 End: 03-15-2024 Patient encounter procedure 03/15/2024 12:45 PM EST Office Visit [facility] [address] [facility] [address] [place] [address] [facility], [address] [facility] [address] [place] [address] [facility] Start: 03-13-2024 HCV RT-PCR, Quant (Non-Graph) [facility] Start: 03-06-2024 End: 03-06-2024 Patient education based on identified need [facility] Start: 03-06-2024 End: 03-06-2024 Provider instructions for treatment Intervention and counseling on cessation of tobacco use, 3-10 minutes [facility] Start: 02-22-2024 End: 02-22-2024 ambulatory 02/22/2024 2:45 PM EST OT/PT/Speech Visit [facility] [address] [facility] [place], [place] [phone] Tien Heredia, PT [address] [facility] [address] [place], [place] [phone] no copay Dislocation of temporomandibular joint, subsequent encounter [S03.00XD] [facility] Comment on above: no copay Dislocation of temporomandibula r joint, subsequent encounter [S03.00XD] Start: 02-14-2024 End: 02-14-2024 Patient encounter procedure Otolaryngology Comment on above: My nose , throat , avril and cheeks are raw. My nose , throat , t ongue and cheeks are raw. Start: 01-28-2024 End: 01-28-2024 ambulatory 01/28/2024 2:30 PM EST OT/PT/Speech Visit [facility] [address] [facility] [place] [address] Tien Heredia, PT [address] [place] [address] Dislocation of temporomandibular joint, subsequent encounter [S03.00XD] [facility] Comment on above: Dislocation of temporomandibular joint, subsequent encounter [S03.00XD] Start: 01-20-2024 End: 01-20-2024 Patient encounter procedure 01/20/2024 11:30 AM EST Office Visit [facility] [address] [place] [address] 1 [place] [phone] Carrington Fritz MD [address] [place] [address], 1 [place], [place] [phone] [facility] Start: 01-18-2024 End: 01-18-2024 Patient encounter procedure 01/18/2024 9:00 AM EST Office Visit Neurology Headache [facility] [address] [place] [address] Rossana Harding APRN.INSTRUCTOR TRAINER CANINE SERVICE [address] [place] [address] F/U Neurology Headache [facility] Comment on above: F/U Start: 01-14-2024 Depression Monitoring Depression Monitoring [facility] Start: 01-06-2024 End: 01-06-2024 Patient encounter procedure 01/06/2024 2:40 PM EDT Appointment Radiology [address] [facility] [place], [place] [phone] MRI BRAIN WO/W IVCON Radiology Comment on above: MRI BRAIN WO/W IVCON Start: 01-05-2024 End: 01-05-2024 ambulatory 01/05/2024 12:15 PM EDT OT/PT/Speech Visit [facility] [address] [facility] [place] [address] Tien Heredai, PT [address] [facility] [place] [address] Dislocation of temporomandibular joint, subsequent encounter [S03.00XD] [facility] Comment on above: Dislocation of temporomandibular joint, subsequent encounter [S03.00XD] Start: 12-29-2023 End: 12-29-2023 Patient encounter procedure 12/29/2023 6:30 PM EDT Appointment [facility] [address] [place] [address] [facility] Start: 12-29-2023 Subsequent hospital visit by physician 12/29/2023 6:30 PM EDT Hospital Encounter [facility] [address] [place] [address] [facility] Start: 12-27-2023 End: 12-27-2023 Patient encounter procedure 12/27/2023 3:00 PM EDT Office Visit [facility] [address] [phone] Yon Chong MD [address] [facility] [address] [place] [address] [facility] Start: 12-24-2023 End: 12-24-2023 Patient encounter procedure 12/24/2023 1:40 PM EDT Appointment Radiology [address] [facility] [place] [address] Dislocation of temporomandibular joint, subsequent encounter [S03.00XD] Radiology Comment on above: Dislocation of temporomandibular joint, subsequent encounter [S03.00XD] Start: 12-22-2023 End: 12-22-2023 Patient encounter procedure 12/22/2023 2:45 PM EDT Office Visit [facility] [address] [place] [address] SteveFran-Sarahi, DO [address] [facility] [address] [place] [address] [facility] Start: 12-21-2023 End: 12-21-2023 Clinical Support 12/21/2023 3:00 PM EDT Clinical Support [facility] [address] [facility] [address] [place] [address] [facility] Start: 12-10-2023 End: 12-10-2023 ambulatory 12/10/2023 10:40 AM EDT [facility] Neurology [facility] [address] [place] [address] [place] [address] [place], [place] [phone] Dislocation of temporomandibular joint, subsequent encounter [S03.00XD] Neurology [facility] Comment on above: Dislocation of temporomandibular joint, subsequent encounter [S03.00XD] Start: 11-26-2023 End: 11-26-2023 Patient encounter procedure 11/26/2023 1:15 PM EDT Appointment [facility] [address] [place] [address] Carrington Fritz MD [address] [place] [address], [address] [place] [address] [facility] Start: 11-26-2023 Subsequent hospital visit by physician 11/26/2023 1:15 PM EDT Hospital Encounter [facility] [address] [place] [address] Carrington Fritz MD [address] [place] [address], [address] [place], [place] [phone] [facility] Start: 11-24-2023 End: 11-24-2023 Patient encounter procedure 11/24/2023 9:15 AM EDT Office Visit [facility] [address] [place] [address] 1 [place] [address] Carrington Fritz MD [address] [place] [address], [address] [place], [place] [phone] [facility] Start: 11-23-2023 End: 11-22-2024 MR Temporomandibular joint MR temporomandibular joint Imaging Routine TMJ (temporomandibular joint disorder) Arthralgia of right temporomandibular joint Expected: 11/23/2023, Expires: 11/22/2024 [facility]: Comment on above: Expected: 11/23/2023, Expires: Start: 11-23-2023 FQHC visit, estab Medical Established Patient [facility] Work Phone: Start: 11-12-2023 End: 11-12-2023 Patient encounter procedure 11/12/2023 11:30 AM EDT Office Visit [facility] Primary Care [address] [address] Jonn Zacarias MD [address] [address] F/u [facility] Comment on above: F/u Start: 11-11-2023 End: 11-11-2023 Patient encounter procedure 11/11/2023 2:15 PM EDT Office Visit [facility] [address] [place] [address] 1 [place] [phone] Carrington Fritz MD [address] [place] [address], [address] [place], [place] [phone] [facility] Start: 11-11-2023 End: 11-10-2024 MR Face WO contrast MR face without contrast Imaging Routine Arthralgia of right temporomandibular joint Expected: 11/11/2023, Expires: 11/10/2024 [facility] Work Phone: Comment on above: Expected: 11/11/2023, Expires: Start: 11-11-2023 End: 11-11-2023 Patient encounter procedure 11/11/2023 12:30 PM EDT Office Visit [facility] Otolaryngology [address] [facility], [address] [place] [address] Carmen Miller MD [address] [facility] [address] [place] [address] 1 month nfollow up [facility] Otolaryngology Comment on above: 1 month nfollow up Start: 11-07-2023 COVID-19 Vaccine ( season) COVID-19 Vaccine ( season) [facility] Start: 11-07-2023 Covid-19 Vaccine ( season) Covid-19 Vaccine ( season) [facility] Start: 11-07-2023 Influenza vaccination [facility] Start: 11-04-2023 End: 11-04-2023 Patient encounter procedure 11/04/2023 3:00 PM EDT Office Visit [facility] Otolaryngology [address] [facility], [address] [place] [address] Carmen Miller MD [address] [facility] [address] [place] [address] (THROAT) Feeling like throat is swollen [facility] Otolaryngolog Comment on above: (THROAT) Feeling like throat is swollen Start: 10-07-2023 Influenza vaccination Flu vaccine (#1) [facility] Start: 09-22-2023 Diabetes mellitus screening Diabetes Screening [facility] Start: 08-26-2023 FQHC visit, estab pt Medical Established Patient [facility] Work Phone: Start: 08-25-2023 End: 08-25-2023 Patient education based on identified need [facility] Start: 08-04-2023 End: 08-04-2023 Patient encounter procedure 08/04/2023 1:15 PM EDT Office Visit [facility] [address] [facility] [address] [place] [address] Fran [facility], [address] [facility] [address] [place] [address] [facility] Start: 07-24-2023 End: 07-24-2023 Patient encounter procedure 07/24/2023 11:00 AM EDT Appointment [facility] [address] [place] [address] [facility] Start: 07-22-2023 Comprehensive metabolic 2000 panel - Serum or Plasma [facility] Start: 07-15-2023 FQHC visit, estab pt Medical Established Patient [facility] Work Phone: Start: 07-15-2023 End: 07-15-2023 Patient education based on identified need [facility] Start: 07-03-2023 CBC W Auto Differential panel - Blood [facility] Start: 07-03-2023 Comprehensive metabolic 2000 panel - Serum or Plasma Comprehensive Metabolic Panel (CP) [facility] Start: 06-03-2023 End: 06-03-2023 Patient education based on identified need [facility] Start: 05-24-2023 FQHC visit, estab pt Medical Established Patient [facility] Work Phone: Start: 05-10-2023 FQHC visit, estab pt Medical Established Patient [facility] Work Phone: Start: 05-10-2023 End: 05-10-2023 Patient education based on identified need [facility] Start: 05-03-2023 Dental Comp Exam [facility] Work Phone: Start: 04-26-2023 End: 04-26-2023 Patient education based on identified need [facility] Start: 04-26-2023 ENT [facility] Work Phone: Comment on above: Note: Please make a referral to: Start: 04-22-2023 Open Access - Established [facility] Work Phone: Start: 04-20-2023 Emergency department patient visit Dental Emergency [facility] Work Phone: Start: 04-19-2023 CBC W Auto Differential panel - Blood [facility] Start: 04-19-2023 Comprehensive metabolic 2000 panel - Serum or Plasma Comp. Metabolic Panel (14) [facility] Start: 04-19-2023 Prothrombin time Prothrombin Time (PT) [facility] Start: 04-12-2023 End: 04-12-2023 Patient education based on identified need [facility] Start: 11-06-2022 COVID-19 Vaccine ( season) COVID-19 Vaccine ( season) [facility] Start: 09-21-2022 Evaluation by psychiatric service required Evaluation by psychiatric service required Date: 21-Sep-2022 [facility] Start: 11-06-2021 Influenza vaccination INFLUENZA (#1) [facility] Start: 03-08-2021 DEPRESSION ASSESSMENT DEPRESSION ASSESSMENT [facility] Start: 02-11-2021 COLOGUARD (FIT-DNA) COLOGUARD (FIT-DNA) [facility] Start: 02-11-2021 Colonoscopy COLONOSCOPY [facility] Start: 02-11-2021 COLORECTAL CANCER SCREENING COLORECTAL CANCER SCREENING [facility] Start: 02-11-[address] COLONOGRAPHY [facility] Start: 02-11-2021 FECAL OCCULT BLOOD FECAL OCCULT BLOOD [facility] Start: 02-11-2021 Screening for malignant neoplasm of colon [facility] Start: 02-11-2021 SIGMOIDOSCOPY SIGMOIDOSCOPY [facility] Start: 11-06-2020 Influenza vaccination Flu vaccine (#1) [facility] Work Phone: Start: 2016 Lipid panel LIPID SCREENING [facility] Start: 02-11-2011 LIPID SCREEN LIPID SCREEN [facility] Start: 02-11-1995 DTaP,Tdap and Td Vaccines (1 - Tdap) DTaP,Tdap and Td Vaccines (1 - Tdap) [facility] Start: 02-11-1995 DTaP/Tdap/Td vaccine (1 - Tdap) DTaP/Tdap/Td vaccine (1 - Tdap) [facility] Start: 02-11-1995 DTaP/Tdap/Td Vaccines (1 - Tdap) DTaP/Tdap/Td Vaccines (1 - Tdap) [facility] Start: 02-11-1995 Hepatitis A vaccine (1 of 2 - Risk 2-dose series) Hepatitis A vaccine (1 of 2 - Risk 2-dose series) [facility] Start: 02-11-1995 Hepatitis B Vaccine (1 of 3 - 19+ 3-dose series) Hepatitis B Vaccine (1 of 3 - 19+ 3-dose series) [facility] Start: 02-11-1995 Hepatitis B vaccine (1 of 3 - Risk 3-dose series) Hepatitis B vaccine (1 of 3 - Risk 3-dose series) [facility] Work Phone: Start: 02-11-1995 Urine microalbumin profile [facility] Start: 02-11-1994 Adult BMI Follow Up Plan Adult BMI Follow Up Plan [facility] Start: 02-11-1994 Depression Screening Depression Screening [facility] Start: 02-11-1994 Diabetes mellitus screening Diabetes Screening [facility] Start: 02-11-1994 HIV SCREENING HIV SCREENING [facility] Start: 02-11-1994 HIV screening HIV Screening [facility] Start: 02-11-1991 HIV screening HIV SCREENING DISCUSSION [facility] Start: 1988 COVID-19 Vaccine (1) COVID-19 Vaccine (1) [facility] Work Phone: Start: 1988 Depression Screening Depression Screening [facility] Start: 02-11-1982 PNEUMOCOCCAL (1 - PCV) PNEUMOCOCCAL (1 - PCV) [facility] Start: 02-11-1982 Pneumococcal 0-64 years Vaccine (1 of 2 - PPSV23) Pneumococcal 0-64 years Vaccine (1 of 2 - PPSV23) [facility] Work Phone: Start: 02-11-1982 Pneumococcal Vaccine: Pediatrics (0 to 5 Years) and At-Risk Patients (6 to 64 Years) (1 - PCV) Pneumococcal Vaccine: Pediatrics (0 to 5 Years) and At-Risk Patients (6 to 64 Years) (1 - PCV) [facility] Start: 02-11-1977 Hepatitis A vaccine (1 of 2 - Risk 2-dose series) Hepatitis A vaccine (1 of 2 - Risk 2-dose series) [facility] Work Phone: Start: 02-11-1977 Hepatitis A Vaccines (1 of 2 - Risk 2-dose series) Hepatitis A Vaccines (1 of 2 - Risk 2-dose series) [facility] Start: 02-11-1977 MMR Vaccines (1 of 1 - Standard series) MMR Vaccines (1 of 1 - Standard series) [facility] Start: 1976 COVID-19 VACCINE (#1) COVID-19 VACCINE (#1) [facility] Start: 1976 Dental Prophylaxis Dental Prophylaxis [facility] Start: 1976 HEPATITIS B (1 of 3 - 3-dose series) HEPATITIS B (1 of 3 - 3-dose series) [facility] Start: 1976 Hepatitis B Vaccines (1 of 3 - 3-dose series) Hepatitis B Vaccines (1 of 3 - 3-dose series) [facility] Start: 1976 Hepatitis C screening HEPATITIS C VIRUS SCREENING [facility] Start: 1976 HIV screening HIV Screening [facility] Start: 1976 Screening for malignant neoplasm of colon [facility] Start: 1976 Tobacco Counseling Tobacco Counseling [facility] Start: 1976 Yearly Adult Physical Yearly Adult Physical [facility] End: 12-26-2024 Antinuclear Ab, HEp-2 Substrate, S Antinuclear Ab, HEp-2 Substrate, S Lab Routine Dry mouth and eyes 1 Occurrences starting 12/27/2023 until 12/26/2024 [employer] Work Phone: Comment on above: 1 Occurrences starting 12/27/2023 until 12/26/2024 Antinuclear Ab, HEp- 2 Substrate, S Antinuclear Ab, HEp-2 Substrate, S Lab Routine Dry mouth and eyes 12/27/2023 3:37 PM EDT [facility] Arthrocentesis aspir&/inj interm jt/burs w/o us INJECTION BURSA INTERMEDIATE TMJ (temporomandibular joint disorder) [facility] ASSESSMENT OF A PATIENT ASSESSME NT OF A PATIENT Dental Routine 1 Occurrences starting 12/14/2024 [facility] Work Phone: Comment on above: 1 Occurrences starting 12/14/2024 End: 10-03-2025 Colonoscopy Colonoscopy GI Routine Encounter for screening colonoscopy 1 Occurrences starting 10/03/2024 until 10/03/2025 [employer] Work Phone: Comment on above: 1 Occurrences starting 10/03/2024 until 10/03/2025 End: 12-26-2024 Complement profile (C3 AND C4) Complement profile (C3 AND C4) Lab Routine Dry mouth and eyes 1 Occurrences starting 12/27/2023 until 12/26/2024 [facility] Comment on above: 1 Occurrences starting 12/27/2023 until 12/26/2024 Complement profile ( C3 AND C4) Complement profile (C3 AND C4) Lab Routine Dry mouth and eyes 12/27/2023 3:37 PM EDT [facility] COMPLETED COMPREHENS KENNETH EXAM COMPLETED COMPREHENSIVE EXAM Dental Routine 1 Occurrences starting 12/14/2024 [facility] Work Phone: Comment on above: 1 Occurrences starting 12/14/2024 COMPREHENSIVE ORAL E FAHAD - NEW/EST PATIENT COMPREHENSIVE ORAL EVAL - NEW/EST PATIENT Dental Routine 1 Occurrences starting 12/14/2024 [facility] Work Phone: Comment on above: 1 Occurrences starting 12/14/2024 End: 04-16-2025 CT Neck W contrast IV CTA NECK W IVCON Radiology Routine Cervicalgia 1 Occurrences starting 03/17/2024 until 04/16/2025 [facility] Comment on above: 1 Occurrences starting 03/17/2024 until 04/16/2025 End: 01-06-2025 CT Temporal bone WO contrast CT TEMP BONES WO IVCON Radiology Routine Dislocation of temporomandibular joint, subsequent encounter 1 Occurrences starting 12/08/2023 until 01/06/2025 [facility] Work Phone: Comment on above: 1 Occurrences starting 12/08/2023 until 01/06/2025 End: 04-16-2025 CTA Head Arteries W contrast IV CTA HEAD W IVCON Radiology Routine Localized swelling, mass or lump of neck 1 Occurrences starting 03/17/2024 until 04/16/2025 [facility] Work Phone: Comment on above: 1 Occurrences starting 03/17/2024 until 04/16/2025 End: 10-17-2025 EGD DIAGNOSTIC EGD DIAGNOSTIC Endoscopy Routine Dysphagia, unspecified type 1 Occurrences starting 10/17/2024 until 10/17/2025 [facility] Work Phone: Comment on above: 1 Occurrences starting 10/17/2024 until 10/17/2025 End: 12-26-2024 CHERYL Panel CHERYL Panel Lab Routine Dry mouth and eyes 1 Occurrences starting 12/27/2023 until 12/26/2024 [facility] Comment on above: 1 Occurrences starting 12/27/2023 until 12/26/2024 CHERYL Panel CHERYL Panel Lab Ro utine Dry mouth and eyes 12/27/2023 3:37 PM EDT [facility] EXTRA JUANI-ISABEL CONTAINER PERFORMABLE EXTRA JUANI-ISABEL CONTAINER PERFORMABLE Lab Routine Diarrhea of presumed infectious origin 04/14/2024 10:41 AM EST [facility] EXTRA ECOFIX CONTAIN ER PERFORMABLE EXTRA ECOFIX CONTAINER PERFORMABLE Lab Routine Diarrhea of presumed infectious origin 04/14/2024 10:41 AM [facility] EXTRA STERILE CONTAINER [facility] End: 10-02-2020 HEP C RNA, QUANT (VIRAL LOAD) HEP C RNA, QUANT (VIRAL LOAD) Lab Routine Once for 1 Occurrences starting 10/02/2020 until 10/02/2020 [facility] Work Phone: Comment on above: Once for 1 Occurrences starting 10/03/19 until 10/02/2020 HEP C RNA, QUANT ( RAL LOAD) HEP C RNA, QUANT (VIRAL LOAD) Lab Routine 10/02/2020 9:18 AM EDT [employer] Work Phone: End: 10-02-2020 Hepatitis C Genotype Hepatitis C Genotype Lab Routine Once for 1 Occurrences starting 10/02/2020 until 10/02/2020 [facility] Work Phone: Comment on above: Once for 1 Occurrences starting 10/03/19 until 10/02/2020 Hepatitis C Genotype Hepatitis C Genotype Lab Routine 10/02/2020 9:18 AM EDT [employer] Work Phone: LAB EXTRA TUBES [facility] End: 01-08-2025 MR Brain WO and W contrast IV MRI BRAIN WO/W IVCON Radiology Routine Right facial pain Atypical facial pain 1 Occurrences starting 12/10/2023 until 01/08/2025 [facility] Work Phone: Comment on above: 1 Occurrences starting 12/10/2023 until 01/08/2025 End: 05-24-2025 MR Cervical spine WO contrast MRI CERVICAL SPINE WO IVCON Radiology Routine Cervicalgia Localized swelling, mass or lump of neck 1 Occurrences starting 04/24/2024 until 05/24/2025 [facility] Comment on above: 1 Occurrences starting 04/24/2024 until 05/24/2025 MR Cervical spine WO contrast MRI CERVICAL SPINE WO IVCON Radiology Routine Cervicalgia Localized swelling, mass or lump of neck 05/19/2024 7:03 PM EDT [facility] Work Phone: End: 05-07-2025 MR Shoulder - left WO contrast MRI SHOULDER WO IVCON LEFT Radiology Routine Acute pain of left shoulder 1 Occurrences starting 04/07/2024 until 05/07/2025 [facility] Work Phone: Comment on above: 1 Occurrences starting 04/07/2024 until 05/07/2025 RELINE COMPLETE DAMON DENTURE (LAB) RELINE COMPLETE DAMON DENTURE (LAB) Dental Routine 1 Occurrences starting 12/14/2024 [facility] Work Phone: Comment on above: 1 Occurrences starting 12/14/2024 RELINE COMPLETE MAX DENTURE (LAB) RELINE COMPLETE MAX DENTURE (LAB) Dental Routine 1 Occurrences starting 12/14/2024 [facility] Work Phone: Comment on above: 1 Occurrences starting 12/14/2024 End: 10-02-2020 Testosterone Free and Total Male Testosterone Free and Total Male Lab Routine Once for 1 Occurrences starting 10/02/2020 until 10/02/2020 [employer] Work Phone: Comment on above: Once for 1 Occurrences starting 10/03/19 21 until 10/02/2020 Testosterone Free an d Total Male Testosterone Free and Total Male Lab Routine 10/02/2020 9:18 AM EDT [employer] Work Phone: Tissue Pathology bio psy report [facility] Work Phone: Comment on above: Release Upon Ordering for 1 Occurrences starting 10/31/2024, 1 completed End: 05-24-2025 XR Cervical spine AP and Lateral and oblique XR CERV OTHER 4V AP/LAT/OBL Radiology Routine Cervicalgia Localized swelling, mass or lump of neck 1 Occurrences starting 04/24/2024 until 05/24/2025 [facility] Work Phone: Comment on above: 1 Occurrences starting 04/24/2024 until 05/24/2025 XR Cervical spine AP and Lateral and oblique XR CERV OTHER 4V AP/LAT/OBL Radiology Routine Cervicalgia Localized swelling, mass or lump of neck 04/24/2024 2:32 PM [facility] End: 05-03-2025 XR Shoulder - left 3 Views XR SHOULDER GENERAL 3V OR MORE AP/TRUE AP/OTHER LEFT Radiology Routine Left shoulder pain, unspecified chronicity 1 Occurrences starting 04/03/2024 until 05/03/2025 [facility] Work Phone: Comment on above: 1 Occurrences starting 04/03/2024 until 05/03/2025 XR Shoulder - left 3 Views XR SHOULDER GENERAL 3V OR MORE AP/TRUE AP/OTHER LEFT Radiology Routine Left shoulder pain, unspecified chronicity 04/07/2024 1:05 PM [facility] Work Phone: Immunizations Immunization Date Immunization Notes Care Provider Modesto parry 03-18-2024 influenza, seasonal, injectable, preservative free Theresa Slaughter [facility] 03-18-2024 influenza virus vaccine, unspecified formulation Tala Mane RN [facility] 03-08-2024 hepatitis A and hepatitis B vaccine Theresa Kuoson [facility] 03-08-2024 tetanus toxoid, redu meghan diphtheria toxoid, and acellular pertussis vaccine, adsorbed Theresa Lamson [facility] 04-26-2023 pneumococcal vaccine , unspecified formulation Colette Vuong [employer] Work Phone: [facility] Comment on above: Note: Patient tolera jess well. No signs or symptoms of adverse reactions. Patient waited a minimum of 15 minutes. 04-26-2023 Pneumococcal, PCV20, PREVNAR 20, (age 6w+), IM, 0.5mL Carmen Miller MD Work Phone: [facility] 01-01-2023 influenza virus vaccine, unspecified formulation Fran-Sarahi Vu DO Work Phone: [facility] 01-01-2023 Influenza, Quadv, 6 mo and older, IM, PF (Flulaval, Fluarix) Carmen Miller MD Work Phone: [facility] 02-24-2022 influenza, injectabl e, quadrivalent, preservative free Colette Vuong [employer] Work Phone: [facility] 02-24-2022 influenza, seasonal, injectable, preservative free Vanesa Crouch [employer] Work Phone: [facility] 02-24-2022 influenza virus vaccine, unspecified formulation Ppbp 1 [facility] Payers Date Payer Category Payer Medicaid [id number] 2022 Medicaid [id number] 2017 Unknown [facility] MEDICA[facility] [id number] 2017-Present [phone] CLAIMS DEPARTMENT [address] [place] [address] [id number]. [id number] 2017 Self-pay 2014 Medicaid [id number] 1976 Unknown [id number] 2.16.840.1.057544.3.579.2.185 1976 Unknown [id number] 2.16.840.1.186304.3.579.2.903 1976 Unknown [id number] 2.16.840.1.953219.3.579.2.903 1976 Unknown [id number] 2.16.840.1.992924.3.579.2.903 1976 Unknown [id number] 2.16.840.1.488544.3.579.2.1068 1976 Unknown [id number] 2.16.840.1.773183.3.579.2.983 1976 Unknown [id number] 2.16.840.1.978720.3.579.2.983 1976 Unknown [id number] 2.16.840.1.971781.3.579.2.983 1976 Unknown [id number] 2.16.840.1.102722.3.579.2.983 1976 Unknown [id number] 2.16.840.1.315142.3.579.2.983 1976 Unknown [id number] 2.16.840.1.844648.3.579.2.1286 1976 Unknown [id number] 2.16.840.1.512698.3.579.2.1286 1976 Unknown [id number] 2.16.840.1.068562.3.579.2.1286 1976 Unknown [id number] 2.16.840.1.143126.3.579.2.1286 1976 Unknown [id number] 2.16.840.1.568722.3.579.2.1286 1976 Unknown [id number] 2.16.840.1.506440.3.579.2.159 1976 Unknown [id number] 2.16.840.1.925387.3.579.2.1286 1976 Unknown [id number] 2.16.840.1.751338.3.579.2.1243 1976 Unknown [id number] 2.16.840.1.284993.3.579.2.1243 1976 Unknown [id number] 2.16.840.1.880554.3.579.2.1246 1976 Unknown [id number] 2.16.840.1.938984.3.579.2.6 1976 Unknown [id number] 2.16.840.1.948528.3.579.2.1244 1976 Unknown [id number] 2.16.840.1.035075.3.579.2.1244 1976 Unknown [id number] 2.16.840.1.875140.3.579.2.1244 1976 Unknown [id number] 2.16.840.1.957223.3.579.2.1286 1976 Unknown [id number] 2.16.840.1.726382.3.579.2.1286 1976 Unknown [id number] 2.16.840.1.574475.3.579.2.1285 1976 Unknown [id number] 2.16.840.1.712667.3.579.2.1286 1976 Unknown [id number] 2.16.840.1.372125.3.579.2.1286 1976 Unknown [id number] 2.16.840.1.115314.3.579.2.1286 1976 Unknown [id number] 2.16.840.1.089208.3.579.2.1286 1976 Unknown [id number] 2.16.840.1.170538.3.579.2.1286 1976 Unknown [id number] 2.16.840.1.673681.3.579.2.128 1976 Unknown [id number] 2.16.840.1.220478.3.579.2.128 1976 Unknown [id number] 2.16.840.1.696165.3.579.2.1285 1976 Unknown [id number] 2.16.840.1.053253.3.579.2.1285 1976 Unknown [id number] 2.16.840.1.412472.3.579.2.6 1976 Unknown [id number] 2.16.840.1.044961.3.579.2.1286 1976 Unknown [id number] 2.16.840.1.420189.3.579.2.6 1976 Unknown [id number] 2.16.840.1.239844.3.579.2.182 1976 Unknown [id number] 2.16.840.1.569589.3.579.2.182 1976 Unknown [id number] 2.16.840.1.525176.3.579.2.182 1976 Unknown [id number] 2.16.840.1.063020.3.579.2.182 1976 Unknown [id number] 2.16.840.1.628558.3.579.2.182 1976 Unknown [id number] 2.16.840.1.973212.3.579.2.182 1976 Unknown [id number] 2.16.840.1.587424.3.579.2.182 1976 Unknown [id number] 2.16.840.1.207938.3.579.2.1286 1976 Unknown [id number] 2.16.840.1.152409.3.579.2.6 1976 Unknown [id number] 2.16.840.1.501716.3.579.2.1286 1976 Unknown [id number] 2.16.840.1.209228.3.579.2.6 1976 Unknown [id number] 2.16.840.1.852186.3.579.2.6 1976 Unknown [id number] 2.16.840.1.262468.3.579.2.1285 1976 Unknown [id number] 2.16.840.1.137075.3.579.2.6 1976 Unknown [id number] 2.16.840.1.273564.3.579.2.6 1976 Unknown [id number] 2.16.840.1.323202.3.579.2.6 1976 Unknown [id number] 2.16.840.1.095941.3.579.2.6 1976 Unknown [id number] 2.16.840.1.835539.3.579.2.6 1976 Unknown [id number] 2.16.840.1.211326.3.579.2.1286 1976 Unknown [id number] 2.16.840.1.455921.3.579.2.6 1976 Unknown [id number] 2.16.840.1.786962.3.579.2.1285 1976 Unknown [id number] 2.16.840.1.276850.3.579.2. 1976 Unknown [id number] 2.16.840.1.870269.3.579.2.1286 1976 Unknown [id number] 2.16.840.1.071166.3.579.2.1285 1976 Unknown [id number] 2.16.840.1.665029.3.579.2.1285 1976 Unknown [id number] 2.16.840.1.524686.3.579.2.1285 1976 Unknown [id number] 2.16.840.1.438018.3.579.2.1285 1976 Unknown [id number] 2.16.840.1.800079.3.579.2.1285 1976 Unknown [id number] 2.16.840.1.612116.3.579.2.1285 1976 Unknown [id number] 2.16.840.1.063624.3.579.2.1285 1976 Unknown [id number] 2.16.840.1.283528.3.579.2.1285 1976 Unknown [id number] 2.16.840.1.248662.3.579.2.1285 1976 Unknown [id number] 2.16.840.1.367577.3.579.2.1285 1976 Unknown [id number] 2.16.840.1.673989.3.579.2.1285 1976 Unknown [id number] 2.16.840.1.648035.3.579.2.1285 1976 Unknown [id number] 2.16.840.1.243152.3.579.2.1285 1976 Unknown [id number] 2.16.840.1.814537.3.579.2.1285 1976 Unknown [id number] 2.16.840.1.235286.3.579.2.1286 1976 Unknown [id number] 2.16.840.1.663591.3.579.2.1286 Unknown [facility]AN [facility] MEDICAID\[facility] MEDICAID Social History Date Type Detail Facility Start: 10-01-2020 End: 07-06-2024 Tobacco smoking status NHIS Former smoker [facility] End: 08-06-2020 History of tobacco use Current smoker [facility] Start: 10-01-2020 End: 12-14-2024 Cigarettes smoked current (pack per day) - Reported [facility] Start: 10-01-2020 End: 10-07-2023 Tobacco use and exposure Never used [facility] Start: 10-01-2020 End: 11-02-2024 Alcohol intake Current non-drinker of alcohol (finding) [facility] Work Phone: Start: 10-01-2020 History SDOH Financial 5 [facility] Work Phone: Start: 10-01-2020 End: 04-23-2022 History SDOH Food Worry 1 [facility] Work Phone: Start: 1975 Sex Assigned At Not on file [facility] Work Phone: Start: 09-25-2013 End: 12-06-2024 Tobacco smoking status NHIS Smokes tobacco daily [facility] Work Phone: Start: 10-18-2024 End: 08-06-2020 History of tobacco use Cigarette Smoker [facility] Work Phone: Start: 09-25-2013 End: 12-06-2024 Tobacco use and exposure User of smokeless tobacco [facility] Work Phone: Start: 09-25-2013 End: 12-08-2023 Tobacco Comment Pt basically does chew [facility] Start: 12-28-2021 End: 04-22-2022 Exposure to SARS-CoV-2 (event) Not sure [facility] Tobacco smoking consumption unknown [facility] Assertion Finding of resid ence and accommodation circumstances (finding) [facility] Assertion Details of drug misuse behavior (observable entity) [facility] Start: 02-07-2012 End: 05-29-2023 Assertion [facility] Assertion Gender identity finding (finding) [facility] Assertion Finding of sexua l orientation (finding) [facility] active (finding) [facility] Start: 12-08-2023 End: 12-14-2024 Tobacco use panel [facility] Start: 11-30-2023 Sexual orientation Heterosexual (fin ding) [facility] Start: 04-23-2022 History SDOH Alcohol Std Drinks [address] [facility] Assertion Exposure to poll ution (event) [facility] Assertion Employment detai l (observable entity) [facility] Social and perso nal history finding (finding) [facility] History of disor tosha (situation) [facility] Start: 08-04-2023 End: 10-19-2024 Tobacco use and exposure Former smokeless tobacco user [facility] Start: 12-22-2023 End: 12-14-2024 Alcoholic beverage intake Ex-drinker (finding) [facility] How hard is it for you to pay for the very basics like food, housing, medical care, and heating Very hard [facility] Start: 03-15-2023 End: 04-09-2023 Sex Male (finding) [facility] Start: 10-07-2023 End: 10-19-2024 Tobacco smoking status NHIS Occasional tobacco smoker [employer] [facility] History of tobacco use Cigar Smoker [employer] [facility] How often to you hav e a drink containing alcohol? Never [facility] [employer] [facility] (I/We) worried whether (my/our) food would run out before (I/we) got money to buy more. Never true [facility] [employer] Assertion Emotional stress (finding) [facility] Start: 1975 Sex assigned at Male [facility] Start: 02-08-2024 Gender identity Identifies as male gender (finding) [facility] History of tobacco use Snuff User [facility] Start: 07-06-2024 Tobacco Comment Stopped smokin g x 2 months ago as 07/06/24. [facility] Start: 09-22-2024 End: 11-03-2024 Alcoholic beverage intake Lifetime non-drinker (finding) [facility] Work Phone: History of tobacco use Passive smoker [facility] Work Phone: NEGATED: Highlighted row Assertion Current drinker of alcohol (finding) [facility] NEGATED: Highlighted row Assertion [facility] NEGATED: Highlighted row Assertion Exposure to pollution (event) [facility] NEGATED: Highlighted row Assertion Sexually active (finding) [facility] NEGATED: Highlighted row Assertion Finding relating to drug misuse behavior (finding) [facility] NEGATED: Highlighted row Assertion Misuses drugs (finding) [facility] NEGATED: Highlighted rowStart: JAXF History of tobacco use Passive smoker [facility] Work Phone: Goals Date Patient Goal Desired Activity /State Personal health goal Functional Status Date Assessment Result Facility 09-22-2024 Patient Health [facility] ionnaire 2 item (PHQ-2) [Reported] [facility] Work Phone: 09-22-2024 [facility] s everity rating scale screener - recent [C-SSRS] [facility] Work Phone: 07-21-2024 Are you deaf, or do you have serious difficulty hearing No 07/21/2024 9:54 AM Alexandria Fine, REDD No [facility] 07-21-2024 Are you blind, or do you have serious difficulty seeing, even when wearing glasses No 07/21/2024 9:54 AM Alexandria Fine, REDD No [facility] 07-21-2024 Do you have serious difficulty walking or climbing stairs No 07/21/2024 9:54 AM Alexandria Fine, REDD No [facility] 07-21-2024 Do you have difficul ty dressing or bathing No 07/21/2024 9:54 AM Alexandria Fine, REDD [facility] 07-21-2024 Because of a physica l, mental, or emotional condition, do you have difficulty doing errands alone such as visiting a physician's office or shopping No 07/21/2024 9:54 AM Alexandria Fine RN No [facility] 09-25-2013 Are you deaf, or do you have serious difficulty hearing No 09/25/2013 8:21 AM Junie Lebron LPN No [facility] 09-25-2013 Are you blind, or do you have serious difficulty seeing, even when wearing glasses No 09/25/2013 8:21 AM Junie Lebron LPN No [facility] 09-25-2013 Do you have serious difficulty walking or climbing stairs No 09/25/2013 8:21 AM Junie Lebron LPN No [facility] 09-25-2013 Do you have difficul ty dressing or bathing No 09/25/2013 8:21 AM Junie Lebron LPN No [facility] 09-25-2013 Because of a physica l, mental, or emotional condition, do you have difficulty doing errands alone such as visiting a physician's office or shopping No 09/25/2013 8:21 AM Junie Lerbon LPN No [facility] Mental Status Date Assessment Result Facility 07-21-2024 Because of a physica l, mental, or emotional condition, do you have serious difficulty concentrating, remembering, or making decisions No 07/21/2024 9:54 AM Alexandria Fine RN No [facility] 09-25-2013 Because of a physica l, mental, or emotional condition, do you have serious difficulty concentrating, remembering, or making decisions Yes 09/25/2013 8:21 AM Junie Lebron LPN Yes [facility] Cognitive function The estimated intelligence was normal Intelligence finding (finding) [facility] Work Phone: Clinical Notes 01-07-2022 to 12-14-2024 Sebastien Warren - 12/14/2024 1:00 PM EDTDental Procedure Details - Sebastien Warren - 12/14/2024 1:00 PM EDTDental Procedure Details - Sebastien Warren - 12/14/2024 1:00 PM EDTPatient Instructions Note Date & Type Note Facility 12-14-2024 History of Present illness Narrative Rem[facility] Prosthodontics Procedure 12/14/2024 Range Aide Needed: No Chief Complaint Patient presents with [...] PROSTHODONTIC PROCEDURE Was local anesthetic administered? No Next Visit: Finish complex D&T, soft recline Encounter Providers Dental Student: eSbastien Warren [1] Past Medical History: Diagnosis Date Injury to mouth Migraine Swelling TMJ dysfunction [2] Allergies Allergen Reactions Penicillins documented in this encounter [facility] Work Phone: 12-14-2024 Miscellaneous Notes Was local anesthetic administered? No documented in this encounter [facility] Work Phone: 12-14-2024 guest relations manager procedure note Was local anesthetic administered? No [facility] Work Phone: 12-06-2024 History of Present illness Narrative Exposed 1 ash 0 retake documented in this encounter [facility] Work Phone: 12-06-2024 History of Present illness Narrative Dental Exam 12/06/2024 Range Aide Needed: No Chief Complaint Patient presents with [...] NEW/EST PATIENT [id number] - ORAL HYGIENE INSTRUCTIONS Prioritized Treatment Plans: - Phase 2 - Phase 3 - Discussion with Patient Included - Patient presented [...] Allergen Reactions Penicillins documented in this encounter [facility] Work Phone: 12-06-2024 Instructions Sebastien Warren - 12/06/2024 1:00 PM EDT Your Oral Cancer Risk Report Your Risk Level: Low Moderate High X MINIMAL RECOMMENDATIONS: Change Recall interval for soft tissue exam Education given on HPV infection in oral cavity Education given on risk of oral cancer Education given on alcohol and oral cancer Recommendation for tobacco cessation Recommended use of sunblocking documented in this encounter [facility] Work Phone: 11-30-2024 History of Present illness Narrative [facility]- Outpatient Speech Language Pathology Adult Daily Note Raheem Cody JrAlistair : 1975 [x] confirmed Date: 11/30/2024 Visit Information: Visit Information JOB DEVELOPMENT SPECIALIST [facility] Total # of Visits Approved: 30 Total # of Visits to Date: 4 No Show: 0 Canceled Appointment: 1 Plan of care signed (Y/N): Yes Certification Period: Therapy Comments: Next auth due: 12/02/24 Plan of Care Visit # 3 Interventions used this date: Expressive Language and Dysphagia Treatment Subjective: Patient arrived 1 hour early to appointment.JOB DEVELOPMENT SPECIALIST was able to see patient early due to opening in schedule. Patient continues to endorse ongoing jaw/head/gum pain. Patient stated he continues to hear crackling on the right side when eating and talking. Patient also reported on his right side of face it feels like his muscles are hanging loose . Patient stated he only feels relief when he is laying down. JOB DEVELOPMENT SPECIALIST reiterated primary JOB DEVELOPMENT SPECIALIST's education about current POC and how exercises may not be the best course of action due to pain with all movement and touch.JOB DEVELOPMENT SPECIALIST continues recommends to continue to follow with ENT and neurologist. Pt may benefit from another referral for myofacial specialist, TMJ therapy, or oral surgeon Patient reported he as been taking medication for oral thrush for 12 days and has not noticed an improvement. Patient stated he has an appointment on December 06 with maxillofacial physician. Patient in agreement with discharge from speech therapy services this date. Behavior: Alert, Cooperative, and Pleasant Objective/Assessment: Goal 1: Pt will complete oral motor ROM and strengthening exercises with 80% accuracy, given cues as needed, in order to strengthen lingual/labial/buccal musculature to promote safety and efficiency of oral phase of swallow and decrease risk for pocketing. Goal previously discontinued. Goal 2: Patient will complete linugal ROM and strengthening exercises ( lingual press, lingual pull back) 10x each in order to promote anterior and posterior propulsion of bolus and improve tonuge base retraction. Pt completed lingual press x5 and x5 lingual pullback with min cues and c/o of intermittant pain. Goal disonticnued. Goal 3: Patient will improve hyolayngeal elevation by performing laryngeal exercises (effortful swallow, flasetto & effortful pitch glide) 10 x each, in order to strengthen and establish a more effective swallow. Goal previously discontinued. Goal 4: Patient will complete pharyngeal strengthening exercises ( chin tuck against resistance, Shaker head lift, Anastasiya) 10x in order to strengthen and establish a more efeective swallow. Pt completed x5 chin tuck against resistance exercises. Pt c/o of intermittent pain. Exercise discontinued. Goal 5: Patient will demonstrate recommneded swallow strategies for safe and efficient swallow of recommended diet in all opportunities. Goal previously met. Goal 6: Patient will tolerate the recommneded diet level with no s/s of aspiration. Pt reports tolerating a combination of soft solids and pureed textures diet and thin liquids at home. Pt supplement with protein shakes. Pt state he hasn't been able to wear his dentures due to pain and irritation of gums. Patient consumed pureed textures in 4/4 trials and thin liquids via cup in 4/4 trials with no overt signs or symptoms of aspiration. Patient c/o of intermittent pain with all exercises trials. Discontinue all dysphagia exercises at this time. Patient is able to tolerate soft soft solids and pureed textures and thin liquids. Patient reports crackling noise by right side by ear when talking and eating. Pain Assessment: Initial Assessment: Patient does not c/o pain. Re-assessment: Patient does not c/o pain. Plan: Discharge Patient/Caregiver Education: Patient/Caregiver educated on session. Time in:1400 Time out:1445 Minutes seen:45 Signature: documented in this encounter [facility] 11-28-2024 History of Present illness Narrative [facility] [address] [address] Patient: Raheem Khan Escobar Tyler. Sex: male : 1975 Age: 49 y.o. PCP: Carrington Fritz MD 11/28/2024 Raheem Cody Jr. is here for a(n) post procedure follow up 11/10/2024 bilateral TMJ with 50% relief and continues. Patient reports oral thrush returned 11/17/2024. He also reports increased neck pain. Date of onset of pain: Apr 2021 , pain has lasted greater than 3 months. Pain scale before treatment: 7/10 Percentage and duration of relief after treatment: 50% cont Pain scale after treatment: 05/15 Chief Complaint Patient presents with Pain HPI: 03/24/24 Bilateral TMJ nerve block injection with 50% relief. 06/16/24 Bilateral TMJ injection 30% relief 11/10/2024 bilateral TMJ with 50% relief and continues. Neck Pain This is a chronic problem. The current episode started more than 1 month ago (April 2021). The problem occurs constantly. The problem has been gradually worsening. The pain is associated with nothing. The pain is present in the midline (right and left jaw, across front of face into left shoulder, posterior right side head and left neck). The quality of the pain is described as aching (ripping flesh on right side of jaw and roof of mouth, ache left posterior neck/head). The pain is at a severity of 8/10. The pain is moderate (to severe). The symptoms are aggravated by twisting, bending, sneezing and coughing (sitting, walking, lying, transitioning, eating, chewing, opening mouth). The pain is Worse during the day (all day). Stiffness is present All day. Associated symptoms [...] glasses needed Wears dentures Past Surgical History: Procedure Laterality Date COLONOSCOPY DIAGNOSTIC / SCREENING N/A 10/23/2024 Performed by Nieves Farmer DO at [facility] HAND SURGERY INJECTION BURSA INTERMEDIATE Isauro TMJ Bilateral 11/10/2024 Performed by Laurence Blankenship MD at [facility] INJECTION BURSA INTERMEDIATE Bilat TMJ Bilateral 06/16/2024 Performed by Laurence Blankenship MD at [facility] INJECTION BURSA INTERMEDIATE Bilat TMJ Bilateral 03/24/2024 Performed by Laurence Blankenship MD at [facility] MANDIBLE SURGERY SPINE SURGERY 2007 Injection TOOTH EXTRACTION WRIST SURGERY Allergies Allergen Reactions Penicillins Anaphylaxis and Cough Anaphylaxis was listed per [facility]. Family History Problem Relation Age of Onset Diabetes Maternal Grandmother Arthritis Paternal Grandfather Social History Socioeconomic History Marital status: Single Spouse name: Not on file Number of children: Not on file Years of education: Not on file Highest education level: Not on file Occupational History Not on file Tobacco Use Smoking status: Some Days Types: [...] . Sexual activity: Not Currently Partners: Female Other Topics Concern Not on file Social History Narrative Not on file Social Drivers of Health Financial Resource Strain: High Risk (03/05/2024) Received from [facility] Overall Financial Resource Strain (CARDIA) Difficulty of Paying Living Expenses: Very hard Food Insecurity: No Food Insecurity (11/28/2024) Hunger Screening Food Insecurity - Worry: Never True Food Insecurity - Inability: Never True Transportation Needs: No Transportation Needs (03/05/2024) Received from [facility] PRAPARE - Transportation Lack of Transportation (Medical): No Lack of Transportation (Non-Medical): No Recent Concern: Transportation Needs - Unmet Transportation Needs (02/14/2024) PRAPARE - Transportation Lack of Transportation (Medical): No Lack of Transportation (Non-Medical): Yes Physical Activity: Insufficiently Active (03/05/2024) Received from [facility] Exercise Vital Sign Days of Exercise per Week: 3 days Minutes of Exercise per Session: 20 min Stress: Stress Concern Present (03/05/2024) Received from [facility] [place] [facility] - Occupational Stress Questionnaire Feeling of Stress : Very much Social Connections: Moderately Isolated (03/05/2024) Received from [facility] Social Connection and Isolation Panel [NHANES] Frequency of Communication with Friends and Family: Never Frequency of Social Gatherings with Friends and Family: Never Attends Confucianism Services: 1 to 4 times per year Active Member of Clubs or Organizations: No Attends Club or Organization Meetings: More than 4 times per year Marital Status: Never Interpersonal Safety: Not At Risk (03/05/2024) Received from [facility] Humiliation, Afraid, Rape, and Kick questionnaire Fear of Current or Ex-Partner: No Emotionally Abused: No Physically Abused: No Sexually Abused: No Housing Instability: High Risk (03/05/2024) Received from [facility] Housing Stability Vital Sign Unable to Pay for Housing in the Last Year: No Number of Times Moved in the Last Year: 0 Homeless in the Last Year: Yes Review of Systems Constitutional: Negative. Negative for weight loss. HENT: Positive for trouble swallowing. Difficult and painful swallowing. Mouth pain Eyes: Negative. Respiratory: Negative. Negative for cough and shortness of breath. Cardiovascular: Negative. Negative for chest pain. Gastrointestinal: Positive for constipation. Negative for diarrhea. Endocrine: Negative. Genitourinary: Negative. Musculoskeletal: Positive for neck pain and neck stiffness. Facial pain Allergic/Immunologic: Negative. Neurological: Negative. Negative for tingling, numbness (nose) and headaches. Hematological: Negative. Psychiatric/Behavioral: Negative. Vital Signs: BP 114/80 (BP Site: Left Arm, BP Postition: Sitting) Pulse 80 Resp 20 Ht 177.8 cm (5' 10 ) Wt 73.5 kg (162 lb) BMI 23.24 kg/m Physical Exam: GENERAL - Healthy patient that [...] dermatomal distributions. Spurlings sign is negative. Tenderness over the bilateral TMJ. Assessment/Treatment Plan: Raheem was seen today for pain. Diagnoses and all orders for this visit: Cervical spondylosis without myelopathy - Ambulatory referral to Physical Therapy; Future TMJ (temporomandibular joint disorder) Other orders - ibuprofen (MOTRIN) 800 mg tablet; Take 1 tablet (800 mg total) by mouth 2 (two) times a day as needed for pain. Monitor TMJ pain Ibuprofen 800 mg BID PRN and continue Lyrica 200 mg TID With Regard to medication management, [...] while taking medications prescribed by this clinic. Physical/Aquatic Therapy - It is felt that the patient will benefit from a course of physical therapy focusing on the above mentioned diagnosis. We will recommend that the physical therapist fully evaluate and treat at their discretion considering the modalities that are most useful for the condition being treated. This may include modalities of comfort including moist heat, ultrasound, and TENS therapy. It may also utilize manual therapy and myofascial release for the myofascial component of the patient s pain. It will likely advance to modalities aimed at stabilizing and strengthing the target area while improving range of motion as well. We are also requesting that the physical therapist send notes that will keep our clinic updated to the patient s progress. Follow up PRN The medications I have prescribed have been [...] requires intensive monitoring for toxicity Lyrica. OARRS was reviewed, discussed and appropriate for medications prescribed. Treatment plans discussed but not opted for at this time: Cervical medial branch block injections. Patient would like to proceed with the current outlined treatment plan before moving forward with any other options. The spine model was demonstrated and Xray and MRI was reviewed and used to explain the condition. Chronic conditions not treated during this visit that affected my overall medical decision making: Anxiety and History of substance abuse OARRS: Reviewed. Scribe Statement: Dahlia Granados CNA, scribed for and in the presence of SUZANNA CAMPUZANO who performed the above service. Dahlia Garcia CNA 11/28/24 1430 SUZANNA Campuzano 11/30/24 0531 documented in this encounter [facility] 11-24-2024 Note HNO ID: [id number] Author: JUAN F WRIGHT, DO Service: ? Author Type: Physician Type: Progress Notes Filed: 11/24/2024 18:14 Note Text: Headache and Facial Pain [facility] CC: Headache follow-up 11/24/2024 Interval History: Last visit Date and brief summary: 4 mo ago R Jaw pain and atypical facial pain and dysphagia increase in Lyrica to 100 mg TID for pain management post operatively Start cymbalta and tizanidine, PT TMJ and H/N Botox denied Referral to speech Continues to report severe burning pain - now involving the entire head, with the most intense pain localized to the skin overlying the gums and extending posteriorly to the ears worse on the left, as a burning type pain. The pain has progressively worsened over time and is now affecting the scalp and forehead. He describes the pain as deep and debilitating, stating, It's going to kill me if somebody doesn't figure out where it is. He also reports episodes of jaw being dislocated and causing his lips and tongue to twist when attempting to swallow. Raheem has been under the care of a neurologist at [facility], who has prescribed Lyrica 200 mg TID and a muscle relaxant - baclofen, which he reports has been helpful. He is also taking Suboxone, which he states has helped manage his pain to some extent, when he was in real crisis 6 weeks ago with SI. He has discontinued Zanaflex. Despite these medications, he continues to experience significant pain and discomfort and severe depression/anxiety. Denies current or active SI or self harm. He is currently undergoing speech therapy to address swallowing difficulties, which he attributes to a previous diagnosis of esophagitis - with some improvement in swallowing but he continues to experience a sensation of tissue tearing in his mouth and lips , with a recent episode of significant oral bleeding. Raheem also reports a history of oral thrush, which he believes is contributing to his symptoms. He describes a sensation of his tongue being stiff and his mouth feeling super tight. He has been seen by an ENT specialist and has undergone a rhinoplasty, which improved his nasal breathing but exacerbated his oral symptoms. He expresses frustration with the lack of a definitive diagnosis and effective treatment, stating, My whole head is necrotizing. He has been referred for a second consultation with an oral maxillofacial surgeon but has not yet been seen. He also reports a history of a possible spinal cord injury, leading to gait disturbances and episodes of numbness in his right leg and arm. Raheem reports significant psychological distress due to his chronic pain, including suicidal ideation. He is not currently under the care of a psychiatrist or psychologist but expresses a desire to seek psychiatric help. He denies active suicidal ideation at this time, stating that his current medication regimen is helping him manage his symptoms. Interval history dictated via [employer] AI: fully reviewed and edited by author DATA: Diagnostic tests reviewed for today's visit: 10/2024 seen Pain Mgmt at Pt here today c/o pain in jaw, face and neck area. Currently on suboxone, lyrica, cymbalta. No recent images no recent PT is doing speech therapy. Pt has difficult swallowing. Hx methamphetamines Patient has tried (03/24/24) Bilateral TMJ nerve block injection with 50% relief and (06/16/24) Bilateral TMJ injection with 30% relief. A/p -TMJ -referral to ENT 10/[address] [facility] [address] Bonilla oropharyngeal dysphagia and sensation of abnormal tongue movement. -no medical treatment for oropharyngeal dysphagia except for swallowing therapy with speech which he is already undergoing. For sensation of abnormal movement of his tongue, recommending a follow-up in neurology since his physical exam is otherwise normal. CT C spine and face C5-6 disc is mildly narrowed and there is mild endplate hypertrophy. Mild facet arthropathy is present diffusely. -Orbits: The bony orbits are intact. The orbital contents are unremarkable. Facial Bones: There is no displaced facial bone fracture.Mandible/Temporomandibu lar Joints: Visualized portions of mandible and bilateral temporomandibular joints are intact. The patient is edentulous. 09/2024 MRI face Subtle asymmetric sclerosis and irregularity right maxillary alveolar process when compared to the left, which is nonspecific, possibly sequelae prior trauma or infection 05/2024 MRI Face and MRA and bMRI wwo -The paving contractor spaces are symmetric without evidence of atrophy or denervation injury. The maxilla and mandible are edentulous. The oral cavity is without evidence of acute soft tissue abnormality. Parotid and submandibular glands are normal. There is questionable abutment of the root entry zones of the trigeminal nerves bilaterally by the superior cerebellar arteries. Temporom (more content not included)... [facility] 11-23-2024 Miscellaneous Notes Last Office Visit: 10/19/2024 Next Office Visit: 11/28/2024 Last Urine Drug Screen: No results found for: BENZOSCRN OARRS appropriate documented in this encounter [facility] 11-23-2024 Telephone encounter Note Last Office Visit: 10/19/2024 Next Office Visit: 11/28/2024 Last Urine Drug Screen: No results found for: BENZOSCRN OARRS appropriate [facility] 11-23-2024 Miscellaneous Notes Raheem would like to see someone who could [...] tongue and it feels like leather tearing. So he is wondering if he could see someone at the cancer Center? He said he called there, but they said he would need a referral. Please advise He has seen ENT multiple times and certainly they have looked at his tongue (as have I) and there has not been evidence of cancer. Raheem is following up with the [facility] today and will let us know what he finds out and we will go from there. documented in this encounter [facility] 11-23-2024 Telephone encounter Note Raheem would like to see someone who could [...] tongue and it feels like leather tearing. So he is wondering if he could see someone at the cancer Center? He said he called there, but they said he would need a referral. Please advise [facility] 11-23-2024 Telephone encounter Note He has seen ENT multiple times and certainly they have looked at his tongue (as have I) and there has not been evidence of cancer. [facility] 11-23-2024 Telephone encounter Note Raheem is following up with the [facility] today and will let us know what he finds out and we will go from there. [facility] 11-21-2024 History of Present illness Narrative [facility]- Outpatient Speech Language Pathology Adult Daily Note Raheem Keo Cody Jr. : 1975 [x] confirmed Date: 11/21/2024 Visit Information: Visit Information JOB DEVELOPMENT SPECIALIST Insurance Information: [facility] Total # of Visits Approved: 30 Total # of Visits to Date: 3 No Show: 0 Canceled Appointment: 1 Plan of care signed (Y/N): Yes Certification Period: Therapy Comments: Next auth due: 12/02/24 Plan of Care Visit # 2 Interventions used this date: Dysphagia Treatment Subjective: Pt continues to endorse ongoing jaw/head/gum pain. Pt state he feels like his jaw is hanging off. Pt reports he continues to hear cracking on the right side and discomfort with his tongue/side of the face. Pt describes it as like its pulling the back of my head and feels like a separation of the jaw to the top of the head to the middle of my mouth Pt states he feels like all swallows are hard and he needs to mash up his tongue to swallow. Pt reports he has relief with his head hanging off the side of a couch in a prone position or when he pulls his jaw bone forward. JOB DEVELOPMENT SPECIALIST discussed current POC at how exercises may not be the best course of action due to pain with all movement and touch. JOB DEVELOPMENT SPECIALIST recommends to continue to follow with ENT and neurologist. Pt may benefit from another referral for myofacial specialist, TMJ therapy, or oral surgeon. Pt would like to attend x1 more session to see if new medication helps reduce pain with movement. Pt continues to have white coating and is treated for thrush with oral medications. JOB DEVELOPMENT SPECIALIST notes ongoing poor jaw and lingual ROM, with lingual deviation. Open mouth posture when at rest. Behavior: Alert, Cooperative, and Pleasant Objective/Assessment: Goal 1: Pt will complete oral motor ROM and strengthening exercises with 80% accuracy, given cues as needed, in order to strengthen lingual/labial/buccal musculature to promote safety and efficiency of oral phase of swallow and decrease risk for pocketing. Pt completed x5 sets of labial and x5 sets of lingual exercises. Goal 2: Patient will complete linugal ROM and strengthening exercises ( lingual press, lingual pull back) 10x each in order to promote anterior and posterior propulsion of bolus and improve tonuge base retraction. Pt completed lingual press x5 and x5 lingual pullback with min cues and c/o of pain intermittent. Lingual tremors observed. Goal 3: Patient will improve hyolayngeal elevation by performing laryngeal exercises (effortful swallow, flasetto & effortful pitch glide) 10 x each, in order to strengthen and establish a more effective swallow. Pt completed x3 effortful swallow with c/o of pain and discomfort. Exercise discontinued. Goal 4: Patient will complete pharyngeal strengthening exercises ( chin tuck against resistance, Shaker head lift, Anastasiya) 10x in order to strengthen and establish a more efeective swallow. Pt completed x5 Anastasiya exercises with initial cue. Pt endorses discomfort with exercises. Goal 5: Patient will demonstrate recommneded swallow strategies for safe and efficient swallow of recommended diet in all opportunities. Pt is ind with strategies and able to recall. Pt ind used with trials this date. Goal met. Goal 6: Patient will tolerate the recommneded diet level with no s/s of aspiration. Pt reports tolerating a soft solid diet and thin liquids at home. Pt supplement with protein shakes. Pt state he hasn't been able to wear his dentures due to pain and irritation of gums. JOB DEVELOPMENT SPECIALIST recommended patient continue with lingual press and pullback exercises and add in chin tuck against resistance. Pt in agreement. Pain Assessment: Initial Assessment: Patient does not c/o pain. Re-assessment: Patient does not c/o pain. Plan: Continue with current goals Patient/Caregiver Education: Patient/Caregiver educated on session. Patient/Caregiver provided with home program: Patient/Caregiver stated verbal understanding of directions. Time in: 1600 Time out: 1700 Minutes seen: 60 Signature: Images from the original note were not included. [facility] [address] [place] [address] Outpatient Speech Therapy Note to Physician Physician: Kulwinder Nur MD From: Fatuma Khanna JOB DEVELOPMENT SPECIALIST, MA,[facility]-JOB DEVELOPMENT SPECIALIST Patient: Raheem Cody . : 1975 Diagnosis: R13.12 Dysphagia, oropharyngeal phase Date: 11/21/2024 Treatment Diagnosis: R13.10 Dysphagia, unspecified Dr. Kulwinder Nur: Your patient Raheem Cody is being seen at our clinic for Speech Therapy. We would like you to be aware of the following: We are requesting the following referral: [] Hearing Evaluation [] Physical Therapy Evaluation [] Occupational Therapy Evaluation [] Psychological Testing Re: [] Modified Barium Swallow Study [x] Other: Physical Therapy for TMJ/Myofacial exercises. Pt would like a referral for an ENT throughout [facility] for a second opinion. Pt continues to c/o pain and discomfort in jaw, right ear, and right of head. Pt has pain with all dysphagia exercises and touch. If you are in agreement, please fax a script with the above request, a diagnosis, the date, and a signature to [phone] or via the patient's account on [employer]. Please call with any questions, [phone]. Thank you for allowing us to participate in the care of your patient. Signature: documented in this encounter [facility] 11-17-2024 History of Present illness Narrative Subjective Patient ID: Raheem Cody Jr. is a 49 y.o. male. He continues to struggle with issues related to function of his jaw and swallowing. He is involved with speech therapy. He is wearing his dentures more regularly. He is concerned that he has thrush infection again. Not having painful swallowing. No fever or chills. His weight loss has slowed. Continues on clonazepam for anxiety. There has been no irregular use. He is also on Suboxone through another prescriber. The following portions of the patient's history were reviewed and updated as appropriate: allergies, current medications, past medical history, past social history, past surgical history, and problem list. Review of Systems Objective Physical Exam HENT: Head: Comments: No facial asymmetry Right Ear: Tympanic membrane and ear canal normal. Mouth/Throat: Comments: A little bit of irritation of the roof of his mouth and posterior pharynx. No definite exudate. No ulcerative lesions. Pulmonary: Effort: Pulmonary effort is normal. Breath sounds: Normal breath sounds. Lymphadenopathy: Cervical: No cervical adenopathy. Assessment/Plan Will treat him for recurrence of thrush and he has done better transiently in the past following treatment. Anxiety medication use reviewed. He is considering pursuing another opinion regarding his jaw and swallowing and I think that is reasonable as I really have nothing else to offer him regarding that problem. Diagnoses and all orders for this visit: Oral thrush - fluconazole (DIFLUCAN) 100 mg tablet; Take 2 tablets Day 1, then 1 tablet daily, total 14 day course Anxiety [facility] History of Present illness Narrative [facility]- Outpatient Speech Language Pathology Adult Daily Note Raheem Cody Jr. : 1975 [x] confirmed Date: 11/14/2024 Visit Information: Visit Information JOB DEVELOPMENT SPECIALIST Insurance Information: [facility] Total # of Visits Approved: 30 Total # of Visits to Date: 2 No Show: 0 Canceled Appointment: 1 Plan of care signed (Y/N): Yes Certification Period: Therapy Comments: Next auth due: 12/02/24 Plan of Care Visit # 1 Interventions used this date: Dysphagia Treatment Subjective: Pt states he an appt at the [facility] for a myofacial follow up since he feels like he is getting no answers from his current medical team. Pt endorses a recurrent fungal infections and is currently getting TMJ treatment with injections but pt reports no relief. Pt reports ongoing clicking in the jaw and discomfort from R ear to posterior scalp. Pt has a hx of Trigeminal V damage. Pt reports is tolerating some soft foods and shakes at home. JOB DEVELOPMENT SPECIALIST discussed plan of care with patient. JOB DEVELOPMENT SPECIALIST unsure at this time if dysphagia exercises will improve pt's overall functional and decrease pain due to nerve hx and his complaints. Pt is willing in to try. Behavior: Alert, Cooperative, and Pleasant Objective/Assessment: Goal 1: Pt will complete oral motor ROM and strengthening exercises with 80% accuracy, given cues as needed, in order to strengthen lingual/labial/buccal musculature to promote safety and efficiency of oral phase of swallow and decrease risk for pocketing. Pt completed x10 sets of labial and x10 sets of lingual exercises with resistance given cueing. Pt endorses pain with exercises, pt educated pt on how pain should not ts ongoing d/c exercises. Goal 2: Patient will complete linugal ROM and strengthening exercises ( lingual press, lingual pull back) 10x each in order to promote anterior and posterior propulsion of bolus and improve tonuge base retraction. Not addressed Goal 3: Patient will improve hyolayngeal elevation by performing laryngeal exercises (effortful swallow, flasetto & effortful pitch glide) 10 x each, in order to strengthen and establish a more effective swallow. Not addressed Goal 4: Patient will complete pharyngeal strengthening exercises ( chin tuck against resistance, Shaker head lift, Anastasiya) 10x in order to stregehtni and establish a more efeective swallow. Pt completed x5 Anastasiya exercises with initial cue. Pt endorses discomfort with exercises. Goal 5: Patient will demonstrate recommneded swallow strategies for safe and efficient swallow of recommended diet in all opportunities. JOB DEVELOPMENT SPECIALIST reviewed with patient and agreeable to continuing with recommendations. Goal 6: Patient will tolerate the recommneded diet level with no s/s of aspiration. Pt reports is tolerating some soft foods and shakes at home. Pt educated and JOB DEVELOPMENT SPECIALIST modeled cervical exercises due to reduced cervical ROM. Pain Assessment: Initial Assessment: Patient does not c/o pain. Re-assessment: Patient does not c/o pain. Plan: Continue with current goals Patient/Caregiver Education: Patient/Caregiver educated on session. Patient/Caregiver provided with home program: Patient/Caregiver stated verbal understanding of directions. Time in: 1600 Time out: 1700 Minutes seen: 60 Signature: documented in this encounter [facility] 11-14-2024 Telephone encounter Note Immunization update in scanned doc [facility] 11-14-2024 Miscellaneous Notes Immunization update in scanned doc documented in this encounter [facility] 11-03-2024 History of Present illness Narrative Images from the original note were not included. Otolaryngology New Patient Visit: Chief Complaint: Chief Complaint Patient presents with Jaw Pain Initial HPI (11/03/2024): Raheem Cody Jr. is a 49 y.o. male. They were referred by Sandeep Wild APRN-KARUNA. History of Present Illness The patient presents for evaluation of temporomandibular joint (TMJ) dysfunction and chronic jaw/mouth pain. TMJ Dysfunction - The patient has a history of TMJ dysfunction. - Partial symptomatic relief achieved through bilateral TMJ nerve block injections. - Conservative management, including therapeutic exercises and nonsteroidal anti-inflammatory drugs (NSAIDs), has not resulted in significant improvement of symptoms. - He has had multiple joint injections without much improvement - He can hear crunching in ears bilaterally - Experiences pain upon wide jaw opening and hears a crunching sound when inserting dentures. - Takes nonsteroidal anti-inflammatory drugs (NSAIDs) for analgesia. Mouth pain - Had full mouth dental extractions in June. He notes mouth/jaw pain ever since then. - History of chronic pain on multiple medications currently including suboxone - History of IVDU, sober for 10 years - Computed tomography (CT) scan in September 2024 without evidence of fracture - Magnetic resonance imaging (MRI) previously was also unremarkable. - Under the care of a neurologist specializing in trigeminal neuralgia, who prescribed duloxetine (Cymbalta) and a muscle relaxant. - Consults with a pipe bowls paint trimmer who prescribed pregabalin (Lyrica) 200 mg. - Currently undergoing speech therapy for dysphagia - Experienced a weight loss of 23 pounds since the onset of symptoms. Mostly pain-limited - Underwent rhinoplasty at the [facility] recently. Using nasal saline spray. Past Medical/Surgical History He has a past medical history of Anxiety (May 2007), Neuromuscular disorder (Multi) (May 2024), Scoliosis (2007), and Substance abuse (1998). His has a past surgical history that includes Fracture surgery (1992); Spine surgery (2006); and [place] tooth extraction (2021). Past Family/Social History His family history includes Alcohol abuse (age of onset: 10 - 19) in his mother; Depression (age of onset: 40 - 49) in his mother; Drug abuse (age of onset: 10 - 19) in his mother; Intellectual Disability (age of onset: 50 - 59) in his mother. He reports that he has been smoking cigarettes. He has never been exposed to tobacco smoke. He uses smokeless tobacco. He reports that he does not drink alcohol and does not use drugs. Medications/Allergies/Immunizati ons His has a current medication list which includes the following prescription(s): buprenorphine-naloxone, clonazepam, indomethacin, mupirocin, nortriptyline, and pregabalin. Allergies: Penicillins Review of Systems All normal unless stated in the HPI. Physical Exam Vitals: There were no vitals filed for this visit. BMI: There is no height or weight on file to calculate BMI. Physical Exam General: Patient appears uneasy and in pain. Psych: Pleasant affect, and answers questions appropriately. Head & Face: Symmetric facial movements. Eyes: Pupils equal, round, reactive. Extraocular movements intact without gaze restrictions or nystagmus. No epiphora. Ears: External auditory canals are normal. Tympanic membranes are clear. No middle ear effusion is seen. All middle ear landmarks are normal. Nose: Septum midline, no masses, no turbinate hypertrophy Oral Cavity/Oropharynx: Tenderness in the roof of the mouth. No visible abnormalities in the tongue despite reported pain. Neck: Supple without lymphadenopathy. Lungs: Non-labored, and without evidence of stridor. Cardiac: Pulses are strong, well-perfused. Extremities: Without gross evidence of clubbing, cyanosis, or edema. Neuro: Cranial nerves II-XII grossly intact; Intact facial movements. DATA/IMAGING: Notes reviewed: ENT ([facility]), Pain Results - Imaging: - CAT scan of the face (10/2024): Potential trigeminal nerve damage CT face (09/22/24): FINDINGS: Orbits: The bony orbits are intact. The orbital contents are unremarkable. Facial Bones: There is no displaced facial bone fracture. Mandible/Temporomandibular Joints: Visualized portions of mandible and bilateral temporomandibular joints are intact. The patient is edentulous. Paranasal Sinuses/Mastoids: Visualized paranasal sinuses and mastoids are clear. Soft tissues: Unremarkable. IMPRESSION: No acute facial bone fracture visualized. MRI face w/wo (09/20/24): ASSESSMENT/PLAN: Assessment & Plan 1. Temporomandibular joint disorder, bilateral. Has had a long history of TMJ with previous joint injections. Now told there is nothing else they can do. - He would like to reach out to a new dentist to see if anything else can be done 2. Chronic pain. Severe jaw and tongue pain. Scope and physical exam negative. Likely secondary to full mouth extractions and TMJ. Hx of IVDU in remission. CT face and MRI overall unremarkable, no fracture. - Continue management with pain specialist and neurologist - RTC as needed This medical note was created with the assistance of artificial intelligence (AI) for documentation purposes. The content has been reviewed and confirmed by the healthcare provider for accuracy and completeness. Patient consented to the use of audio recording and use of AI during their visit. documented in this encounter [facility] Work Phone: 10-31-2024 Nurse Note AMBULATORY PATIENT EDUCATION NOTE TOPIC: GI PROCEDURES: Esophagogastroduodenoscopy(EGD) with or without biopies based on clinical findings, removal of polyps or lesions READINESS TO LEARN INSTRUCTION PROVIDED TO: Patient, readness to learn accessed prior to procedure, Family member, and Patient and family member COGNITIVE ABILITY: Alert and oriented PTED MOTIVATION TO LEARN: Eager FAMILY SUPPORT: High - Very involved in pt care IPATIENT LEARNS BEST BY: Individual Instruction Written Instruction - Hand-outs Verbal Instruction FACTORS AFFECTING LEARNING: None PHYSICAL LIMITATIONS AFFECTING LEARNING: None LEARNING RESPONSE METHOD OF INSTRUCTION: Individual instruction PATIENT / FAMILY RESPONSE: Verbalizes understanding of: WORSENING CONDITION-Signs and symptoms of a worsening condition that warrant a call to the physician FOLLOW-UP PLAN: Complete - No need for follow-up SUPPLEMENTAL MATERIAL: Procedure Discharge Instructions REFERRAL (RECOMMENDATION): None [facility] 10-31-2024 Nurse Note AMBULATORY PATIENT EDUCATION NOTE TOPIC: GI PROCEDURES: Esophagogastroduodenoscopy(EGD) with or without biopies based on clinical findings, removal of polyps or lesions READINESS TO LEARN INSTRUCTION PROVIDED TO: Patient, readness to learn accessed prior to procedure, Family member, and Patient and family member COGNITIVE ABILITY: Alert and oriented PTED MOTIVATION TO LEARN: Eager FAMILY SUPPORT: High - Very involved in pt care IPATIENT LEARNS BEST BY: Individual Instruction Written Instruction - Hand-outs Verbal Instruction FACTORS AFFECTING LEARNING: None PHYSICAL LIMITATIONS AFFECTING LEARNING: None LEARNING RESPONSE METHOD OF INSTRUCTION: Individual instruction PATIENT / FAMILY RESPONSE: Verbalizes understanding of: WORSENING CONDITION-Signs and symptoms of a worsening condition that warrant a call to the physician FOLLOW-UP PLAN: Complete - No need for follow-up SUPPLEMENTAL MATERIAL: Procedure Discharge Instructions REFERRAL (RECOMMENDATION): None PRE OP LEARNING ASSESSMENT PROCEDURE/SURGERY: GI PROCEDURES: EGD READINESS TO LEARN COGNITIVE ABILITY: Alert and oriented MOTIVATION TO LEARN: Eager Interested FAMILY SUPPORT: High - Very involved in pt care PATIENT LEARNS BEST BY: Individual Instruction Written Instruction - Hand-outs Verbal Instruction FACTORS AFFECTING LEARNING: None PHYSICAL LIMITATIONS AFFECTING LEARNING: None Electronically Signed By: Víctor Child RN In Department: GASTROENTEROLOGY documented in this encounter [facility] 10-31-2024 Nurse Note PRE OP LEARNING ASSESSMENT PROCEDURE/SURGERY: GI PROCEDURES: EGD READINESS TO LEARN COGNITIVE ABILITY: Alert and oriented MOTIVATION TO LEARN: Eager Interested FAMILY SUPPORT: High - Very involved in pt care PATIENT LEARNS BEST BY: Individual Instruction Written Instruction - Hand-outs Verbal Instruction FACTORS AFFECTING LEARNING: None PHYSICAL LIMITATIONS AFFECTING LEARNING: None Electronically Signed By: Víctor Child RN In Department: GASTROENTEROLOGY [facility] 10-31-2024 History and physical note PROCEDURAL SEDATION HISTORY AND PHYSICAL EXAM SERVICE DATE: 10/31/2024 SERVICE TIME: 919 Subjective HPI: This is a 49 year old male who presents with Dysphagia PAST ANESTHESIA HISTORY:No history of adverse event PAST MEDICAL HISTORY Diagnosis Date Amphetamine and other psychostimulant dependence, episodic (HCC) 06/03/2007 clean 09/11, again clean since 01/2013 Anxiety state, unspecified Arthritis Carpal tunnel syndrome, bilateral Chronic back pain Heart murmur child Hepatitis C Insomnia, unspecified IVDU (intravenous drug user) in past, last in 2009 Verruca vulgaris right hand PAST SURGICAL HISTORY Procedure Laterality Date ANES DX/THER NERVE BLOCK/INJECTION PRONE POS 2013 CRYOSURGERY right hand wart PAST SURGICAL HISTORY OF 1992 right hand fracture Prior to Admission medications as of 10/31/24 0905 Medication Sig Last Dose Taking tiZANidine (ZANAFLEX) 4 mg tablet TAKE 1 TABLET BY MOUTH EVERY DAY NEEDED FOR FACIAL PAIN/JAW PAIN/MUSCLE PULLING DULoxetine DR (CYMBALTA) 30 mg capsule TAKE 1 CAPSULE BY MOUTH ONCE DAILY FOR 7 DAYS, THEN TAKE 2 CAPSULE BY MOUTH ONCE DAILY pregabalin (LYRICA) 75 mg capsule Take 75 mg by mouth. cyanocobalamin, vitamin B-12, (B-12 COMPLIANCE INJECTION) by INJECTION(UNSPECIFIED PARENTERAL ROUTES) route once every month. clonazePAM (KLONOPIN) 1 mg tablet Take 1 mg by mouth two times a day as needed for anxiety. ubidecarenone Q-10 (CO Q-10) 10 mg cap Take 10 mg by mouth three times a day. triamcinolone acetonide (KENALOG) 0.1 % ointment Apply thin layer to affected areas twice daily M-. Take weekends off. Do not apply to face. Patient not taking: Reported on 08/02/2024 ALLERGIES Allergen Reactions Penicillins Anaphylaxis CARDIOVASCULAR:No chest pain, leg swelling and palpitations PULMONARY:No cough,wheezing and shortness of breath Objective PHYSICAL EXAM:The remainder of the physical exam is noncontributory AIRWAY: Mouth opening greater than 3 fingerbreadths: Yes Neck Full Range of Motion: Yes LUNGS: Good diaphragmatic excursion CARDIAC: ,Regular rate Assessment/Plan ASA Class: 2 Patient OK for Sedation: Yes Sedation Goal: Anesthesia Provisional Diagnosis/Treatment Plan: Dysphagia/ EGD Sedation Goal: Anesthesia SIGNATURE: Cary Mortensen DO PATIENT NAME: Raheem Crowley Cody DATE: October 31, 2024 TIME: 9:20 AM [facility] Work Phone: 10-31-2024 History and physical note PROCEDURAL SEDATION HISTORY AND PHYSICAL EXAM SERVICE DATE: 10/31/2024 SERVICE TIME: 0920 Subjective HPI: This is a 49 year old male who presents with Dysphagia PAST ANESTHESIA HISTORY:No history of adverse event PAST MEDICAL HISTORY Diagnosis Date Amphetamine and other psychostimulant dependence, episodic (HCC) 06/03/2007 clean 09/11, again clean since 01/2013 Anxiety state, unspecified Arthritis Carpal tunnel syndrome, bilateral Chronic back pain Heart murmur child Hepatitis C Insomnia, unspecified IVDU (intravenous drug user) in past, last in 2009 Verruca vulgaris right hand PAST SURGICAL HISTORY Procedure Laterality Date ANES DX/THER NERVE BLOCK/INJECTION PRONE POS 2012 CRYOSURGERY right hand wart PAST SURGICAL HISTORY OF 1992 right hand fracture Prior to Admission medications as of 10/31/24 0905 Medication Sig Last Dose Taking tiZANidine (ZANAFLEX) 4 mg tablet TAKE 1 TABLET BY MOUTH EVERY DAY NEEDED FOR FACIAL PAIN/JAW PAIN/MUSCLE PULLING DULoxetine DR (CYMBALTA) 30 mg capsule TAKE 1 CAPSULE BY MOUTH ONCE DAILY FOR 7 DAYS, THEN TAKE 2 CAPSULE BY MOUTH ONCE DAILY pregabalin (LYRICA) 75 mg capsule Take 75 mg by mouth. cyanocobalamin, vitamin B-12, (B-12 COMPLIANCE INJECTION) by INJECTION(UNSPECIFIED PARENTERAL ROUTES) route once every month. clonazePAM (KLONOPIN) 1 mg tablet Take 1 mg by mouth two times a day as needed for anxiety. ubidecarenone Q-10 (CO Q-10) 10 mg cap Take 10 mg by mouth three times a day. triamcinolone acetonide (KENALOG) 0.1 % ointment Apply thin layer to affected areas twice daily M-. Take weekends off. Do not apply to face. Patient not taking: Reported on 08/02/2024 ALLERGIES Allergen Reactions Penicillins Anaphylaxis CARDIOVASCULAR:No chest pain, leg swelling and palpitations PULMONARY:No cough,wheezing and shortness of breath Objective PHYSICAL EXAM:The remainder of the physical exam is noncontributory AIRWAY: Mouth opening greater than 3 fingerbreadths: Yes Neck Full Range of Motion: Yes LUNGS: Good diaphragmatic excursion CARDIAC: ,Regular rate Assessment/Plan ASA Class: 2 Patient OK for Sedation: Yes Sedation Goal: Anesthesia Provisional Diagnosis/Treatment Plan: Dysphagia/ EGD Sedation Goal: Anesthesia SIGNATURE: Cary Mortensen DO PATIENT NAME: Raheem Crowley Cody DATE: October 31, 2024 TIME: 9:20 AM documented in this encounter [facility] 10-27-2024 Miscellaneous Notes ----- Message from Nieves Farmer DO sent at 10/27/2024 6:22 AM EDT ----- Please let him know that the polyp is benign and was hyperplastic therefore does not need repeat scopy for 10 years instead of 5. Thanks, Dr. Sim ----- Message ----- From: Lab, Background User Sent: 10/26/2024 10:24 PM EDT To: Nieves Farmer DO Spoke with patient regarding pathology results. Patient verbally understood with no further questions. Recall put in chart. documented in this encounter [facility] 10-27-2024 Telephone encounter Note ----- Message from Nieves Farmer DO sent at 10/27/2024 6:22 AM EDT ----- Please let him know that the polyp is benign and was hyperplastic therefore does not need repeat scopy for 10 years instead of 5. Thanks, Dr. Sim ----- Message ----- From: Kamila, Background User Sent: 10/26/2024 10:24 PM EDT To: Nieves Farmer DO [facility] 10-27-2024 Telephone encounter Note Spoke with patient regarding pathology results. Patient verbally understood with no further questions. Recall put in chart. [facility] 10-24-2024 History of Present illness Narrative History Of Present Illness Raheem Cody Jr. is a 49 y.o. male presents for evaluation of mouth pain that radiates behind the ear and occiput, mostly on the right side. This pain has been getting worse since last year. Patient had a roof of the mouth infection and his teeth were removed years ago. Pain is aching and sharp. Pain is currently 7/10. Pain gets worse with swallowing and its greatly affecting his ADLs. The symptoms are aggravated by swallowing, opening mouth, and chewing. Patient has tried (03/24/24) Bilateral TMJ nerve block injection with 50% relief and (06/16/24) Bilateral TMJ injection with 30% relief. Patient mentions that injections are not helping nor exercises and NSAIDs. Denies bowel/bladder changes, saddle anesthesia, fever, or progressive weakness. Brief Pain Inventory completed. Opioid risk assessment completed and OARRS/PDMP reviewed. Past Medical History He has a past medical history of Anxiety (May 2007), Neuromuscular disorder (Multi) (May 2024), Scoliosis (2007), and Substance abuse (1998). Surgical History He has a past surgical history that includes Fracture surgery (1992); Spine surgery (2006); and [place] tooth extraction (2021). Social History He reports that he has been smoking cigarettes. He has never been exposed to tobacco smoke. He uses smokeless tobacco. He reports that he does not drink alcohol and does not use drugs. Family History Family History[1] Allergies Penicillins Review of Symptoms: Negative except for HPI. PHYSICAL EXAM Vitals signs reviewed General: NAD, alert, cooperative Cardiovascular: RRR, no peripheral edema Pulmonary: regular breathing, bilateral breath sounds, no stridor/wheezing Abdomen: no acute abdomen Skin: no gross deformity MSK: Gait: normal Palpation: No tenderness of patient lumbar midline, lumbar paraspinals, bilateral SI joints ROM: Normal range of motion of lumbar flexion, extension, rotation Neuro: Motor: 5-5 strength upper and lower extremities Sensory: Negative for sensory abnormalities in upper and lower extremities Reflexes: 2+ reflexes bilateral upper and lower extremities Special Tests: Cervical: Negative Spurling's, normal ROM, negative Vic's Lumbar: Negative straight leg raising bilaterally, negative for facet loading SI Joint: Negative Alfa, negative Gaenslen's Wrist: Negative Tinel's, negative Phalen's Relevant Results Current Outpatient Medications Medication Instructions clonazePAM (KLONOPIN) 0.5 mg, 2 times daily indomethacin (Indocin) 25 mg capsule TAKE 1 CAPSULE BY MOUTH IN THE MORNING AND 1 AT NOON AND 1 IN THE EVENING WITH MEALS mupirocin (Bactroban) 2 % ointment 1 Application, 3 times daily nortriptyline (PAMELOR) 25 mg, 2 times daily pregabalin (LYRICA) 200 mg, oral, 2 times daily XR cervical spine 2-3 views 09/27/2024 Narrative Interpreted By: Donal Lopez, STUDY: XR CERVICAL SPINE 2-3 VIEWS INDICATION: Signs/Symptoms:pain. COMPARISON: None ACCESSION NUMBER(S): [id number] ORDERING CLINICIAN: WILL BORJA FINDINGS: Mild C5-6 degenerative change. Alignment normal. Prevertebral soft tissues normal. Impression Mild cervical degenerative change C5-6. Signed by: Donal Lopez 09/29/2024 1:30 PM Dictation workstation: [id number] MR cervical spine wo IV contrast 05/19/2024 Narrative * * *Final Report* * * DATE OF EXAM: May 19 2024 7:03PM [facility] [id number] - MRI CERVICAL SPINE WO IVCON [...] patent. C7-T1: Canal and foramina are patent. Impression IMPRESSION: Mild degenerative changes in the cervical spine detailed by level in the body the report without high-grade canal stenosis. Anatomic Variant: None. Assume 7 cervical vertebrae with counting from the craniocervical junction. Plastic Welder: JEFFREY Transcribe Date/Time: May 20 2024 9:22A Dictated by : BLUE MARI MD This examination was interpreted and the report reviewed and electronically signed by: BLUE MARI MD on May 20 2024 9:23AM EST No image results found. ASSESSMENT/PLAN TMJ Dysfunction Our plan is as follows: -Referral to ENT for evaluation and possible intervention -Continue medications as prescribed -Avoid / minimize opioids unless necessary -Activity modification -Discussed risks/benefits of interventions, will give written instructions if wanted -Reviewed red flag symptoms and when to seek care -Will discuss plan with referring provider/PCP if needed Medical Necessity Statement: Patient had failed >6 weeks of conservative measures (PT, HEP, NSAIDs) with persistent functional limitation. Imaging findings correlate with exam and symptoms. This note was generated with the aid of dictation software, there may be typos despite my attempts at proofreading. Harjeet Shell MD Fellow PGY-5 [facility] [1] Family History Problem Relation Name Age of Onset Alcohol abuse Mother Mom 10 - 19 Drug abuse Mother Mom 10 - 19 Depression Mother Mom 40 - 49 Intellectual Disability Mother Mom 50 - 59 Cosigned by Gisel Roland MD at 10/24/2024 3:52 PM EDT documented in this encounter [facility] Work Phone: 10-24-2024 Nurse Note GI Pre-Procedure Spoke with patient: Yes Confirmed date scheduled and patient report time: Yes Procedure Planned:Esophagogastroduodenosco py(EGD) with or without biopies based on clinical findings, removal of polyps or lesions Is the patient on blood thinners?no Procedure Instructions given to patient: Yes, and they verbalized their understanding of instructions given Patient instructed to take prescribed preparation prior to procedure:Yes, and they verbalized their understanding of instructions given Patient instructed to have family/friend present for procedure transport home:Patient/patient service liaison representative was told that if they do not have a responsible adult accompany them to their procedure; and remain in the endoscopy area until they are discharged; that their procedure cannot be done with sedation or anesthesia and may be cancelled. and They verbalized their understanding and agree to have a responsible adult accompany the patient to their procedure and remain in the endoscopy area. Any barriers to Patient learning: Patient/Patient Bank Vault Clerk responded appropriately on phone. Type of instruction given: Verbal by telephone contact. Alvin Quinones RN [facility] 10-24-2024 Nurse Note GI Pre-Procedure Spoke with patient: Yes Confirmed date scheduled and patient report time: Yes Procedure Planned:Esophagogastroduodenosco py(EGD) with or without biopies based on clinical findings, removal of polyps or lesions Is the patient on blood thinners?no Procedure Instructions given to patient: Yes, and they verbalized their understanding of instructions given Patient instructed to take prescribed preparation prior to procedure:Yes, and they verbalized their understanding of instructions given Patient instructed to have family/friend present for procedure transport home:Patient/patient service liaison representative was told that if they do not have a responsible adult accompany them to their procedure; and remain in the endoscopy area until they are discharged; that their procedure cannot be done with sedation or anesthesia and may be cancelled. and They verbalized their understanding and agree to have a responsible adult accompany the patient to their procedure and remain in the endoscopy area. Any barriers to Patient learning: Patient/Patient Bank Vault Clerk responded appropriately on phone. Type of instruction given: Verbal by telephone contact. Alvin Quinones RN documented in this encounter [facility] 10-19-2024 History of Present illness Narrative [facility] [address] [place] [address] Patient: Raheem Cody . Sex: male : 1975 Age: 49 y.o. PCP: Carrington Fritz MD 10/19/2024 Raheem Cody is here for a(n) follow up. Pregabalin was increased to 150 mg 3 times daily which is providing some relief. Patient would like to increase to 200 mg. Patient continues to have pain with swallowing. Patient canceled bilateral TMJ injection scheduled for 09/15/2024 due being scheduled for septoplasty. He continues to have pain with swallowing, pain to the roof of his mouth and into left shoulder. Chief Complaint Patient presents with Neck Pain [...] (right and left jaw, across front of face into left shoulder). The quality of the pain is described as aching (sharp pain to mouth and nose, Sharp shooting pain into bilateral occipital up to behind ears). The pain is at a severity of 7/10 (can get up to 10/10). The pain [...] glasses needed Wears dentures Past Surgical History: Procedure Laterality Date HAND SURGERY INJECTION BURSA INTERMEDIATE Bilat TMJ Bilateral 06/16/2024 Performed by Laurence Blankenship MD at [facility] INJECTION BURSA INTERMEDIATE Bilat TMJ Bilateral 03/24/2024 Performed by Laurence Blankenship MD at [facility] MANDIBLE SURGERY SPINE SURGERY 2007 Injection TOOTH EXTRACTION WRIST SURGERY Allergies Allergen Reactions Penicillins Anaphylaxis and Cough Anaphylaxis was listed per [facility]. Family History Problem Relation Age of Onset Diabetes Maternal Grandmother Arthritis Paternal Grandfather Social History Socioeconomic History Marital status: Single Spouse name: Not on file Number of children: Not on file Years of education: Not on file Highest education level: Not on file Occupational History Not on file Tobacco Use Smoking status: Some Days Types: Cigarettes Start date: 10/18/2024 Last attempt to quit: 02/16/1994 Years since quittin.6 Smokeless tobacco: Former Vaping Use Vaping status: Some Days Substance and Sexual Activity Alcohol use: Not Currently Drug use: Not Currently Types: Amphetamines, Anabolic steroids, Benzodiazepines, Crack cocaine, Cocaine, Heroin, Hydrocodone, Marijuana, Methamphetamines, Opium, Oxycodone Comment: Ill never abuse drugs again. 23 months clean had six years . Sexual activity: Not Currently Partners: Female Other Topics Concern Not on file Social History Narrative Not on file Social Drivers of Health Financial Resource Strain: High Risk (03/05/2024) Received from [facility] Overall Financial Resource Strain (CARDIA) Difficulty of Paying Living Expenses: Very hard Food Insecurity: No Food Insecurity (10/19/2024) Hunger Screening Food Insecurity - Worry: Never True Food Insecurity - Inability: Never True Transportation Needs: No Transportation Needs (03/05/2024) Received from [facility] PRAPARE - Transportation Lack of Transportation (Medical): No Lack of Transportation (Non-Medical): No Recent Concern: Transportation Needs - Unmet Transportation Needs (02/14/2024) PRAPARE - Transportation Lack of Transportation (Medical): No Lack of Transportation (Non-Medical): Yes Physical Activity: Insufficiently Active (03/05/2024) Received from [facility] Exercise Vital Sign Days of Exercise per Week: 3 days Minutes of Exercise per Session: 20 min Stress: Stress Concern Present (03/05/2024) Received from [facility] [employer] [place] [employer] - Occupational Stress Questionnaire Feeling of Stress : Very much Social Connections: Moderately Isolated (03/05/2024) Received from [facility] Social Connection and Isolation Panel [NHANES] Frequency of Communication with Friends and Family: Never Frequency of Social Gatherings with Friends and Family: Never Attends Confucianism Services: 1 to 4 times per year Active Member of Clubs or Organizations: No Attends Club or Organization Meetings: More than 4 times per year Marital Status: Never Interpersonal Safety: Not At Risk (03/05/2024) Received from [facility] Humiliation, Afraid, Rape, and Kick questionnaire Fear of Current or Ex-Partner: No Emotionally Abused: No Physically Abused: No Sexually Abused: No Housing Instability: High Risk (03/05/2024) Received from [facility] Housing Stability Vital Sign Unable to Pay for Housing in the Last Year: No Number of Times Moved in the Last Year: 0 Homeless in the Last Year: Yes Review of Systems Constitutional: Negative for weight loss. HENT: Positive for trouble swallowing. Difficult and painful swallowing Respiratory: Negative for cough and shortness of breath. Cardiovascular: Negative for chest pain. Gastrointestinal: Positive for constipation. Negative for diarrhea. Genitourinary: Negative. Musculoskeletal: Positive for neck pain and neck stiffness. Facial pain Neurological: Negative for tingling, numbness (nose) and headaches. Vital Signs: BP 130/70 Pulse 87 Resp 16 Ht 177.8 cm (5' 10 ) Wt 74.4 kg (164 lb) SpO2 97% BMI 23.53 kg/m Physical Exam: GENERAL - Healthy patient that [...] dermatomal distributions. Spurlings sign is negative. Tenderness over bilateral TMJ with decreased AROM. Assessment/Treatment Plan: Raheem was seen today for neck pain. Diagnoses and all orders for this visit: TMJ (temporomandibular joint disorder) - Case request operating room: INJECTION BURSA LARGE JOINT: bilat tmj Increase to Lyrica 200 mg TID With Regard to medication management, [...] while taking medications prescribed by this clinic. Bilateral TMJ Injection - under fluoroscopy with the use of [...] wishes to proceed. It was explained that TMJ injections occasionally require a repeat injection before significant relief is noted, but we will determine after each injection if another one is indicated. Depending on the amount and duration of relief obtained from the injection, additional modalities of therapy including medications and physical therapy may need to be utilized alongside or following the injections. If the injection fails to provide relief for a reasonable duration, we may need to consider other options. Follow up 2 weeks after procedure The medications I have prescribed have been [...] requires intensive monitoring for toxicity Lyrica. OARRS was reviewed, discussed and appropriate for medications prescribed. It is noted that the patient did have good response from the previously performed procedure. It is felt that the patient would benefit from an additional procedure of the same nature in that the same symptoms have returned. It is hopeful that this additional injection will provide additional benefit and duration when combined with the previous injection. The spine model was demonstrated and MRI [...] performed under sedation to decrease procedural anxiety. OARRS: Reviewed. Scribe Statement: Dahlia Granados CNA, scribed for and in the presence of SUZANNA CAMPUZANO who performed the above service. Dahlia Garcia CNA 10/19/24 [id number] SUZANNA Campuzano 10/19/24 1523 documented in this encounter [facility] 10-19-2024 Instructions Dahlia Garcia CNA - 10/19/2024 2:15 PM EDT Joint Injections / Other These [...] back to normal. documented in this encounter [facility] 10-18-2024 Note HNO ID: [id number] Author: DIYA BONILLA MD Service: ? Author Type: Physician Type: Progress Notes Filed: 10/18/2024 14:01 Note Text: IMPRESSION 49-year-old male with oropharyngeal dysphagia and sensation of abnormal tongue movement. RECOMMENDATION/PLAN I informed the patient that there is no medical treatment for oropharyngeal dysphagia except for swallowing therapy with speech which he is already undergoing. For sensation of abnormal movement of his tongue, recommending a follow-up in neurology since his physical exam is otherwise normal. I will see him back on a as needed basis. Chief Complaint Dysphagia, feel like there is abnormal movement of the tongue. History of Present Illness Raheem Cody is a 49 year old male present for eval for dysphagia and tongue abnormalities. Patient states that for the last year, he has had some trouble swallowing. Patient stated about a year ago he tried to move his jaw through the right side and he felt something snap in the back of his throat. Since then, he has difficulty with swallowing. He feels that his tongue is not moving correctly and when he tried to swallow his moving forward extended backwards. Patient swallow study in July which per report showed oropharyngeal dysphagia. In the last 6 months, patient had MRI scan of his his face and brain. He also had a MRA of his brain and CTA and CT face. Patient is scheduled for an EGD with GI. PAST MEDICAL HISTORY Diagnosis Date Amphetamine and [...] on File Prior to Visit Medication Sig tiZANidine (ZANAFLEX) 4 mg tablet TAKE 1 TABLET BY MOUTH EVERY DAY NEEDED FOR FACIAL PAIN/JAW PAIN/MUSCLE PULLING DULoxetine DR (CYMBALTA) 30 mg capsule TAKE 1 CAPSULE BY MOUTH ONCE DAILY FOR 7 DAYS, THEN TAKE 2 CAPSULE BY MOUTH ONCE DAILY pregabalin (LYRICA) 75 mg capsule Take 75 mg by mouth. cyanocobalamin, vitamin B-12, (B-12 COMPLIANCE INJECTION) by INJECTION(UNSPECIFIED PARENTERAL ROUTES) route once every month. clonazePAM (KLONOPIN) 1 mg tablet Take 1 mg by mouth two times a day as needed for anxiety. ubidecarenone Q-10 (CO Q-10) 10 mg cap Take 10 mg by mouth three times a day. triamcinolone acetonide (KENALOG) 0.1 % ointment Apply thin layer to affected areas twice daily M-. Take weekends off. Do not apply to face. (Patient not taking: Reported on 08/02/2024) No current facility-administered medications on file prior [...] palate, tonsillar pillars or posterior pharyngeal wall. Neck: Palpation of the neck revealed no adenopathy, salivary gland masses or asymmetry, or thyroid masses or enlargement. Procedure Flexible laryngoscopy was performed because of the following indication: hyperactive gag and dysphagia: After spraying the nose with 4% xylocaine and 0.5% oxymetazoline, the flexible scope was placed in a transnasal fashion. The nasopharynx, oropharynx, hypopharynx including the pyriform sinuses were normal. The base of tongue showed no gross lesions. The larynx itself showed no lesions. The vocal cords moved well bilaterally. Diya Bonilla MD [facility] 10-18-2024 History of Present illness Narrative IMPRESSION 49-year-old male with oropharyngeal dysphagia and sensation of abnormal tongue movement. RECOMMENDATION/PLAN I informed the patient that there is no medical treatment for oropharyngeal dysphagia except for swallowing therapy with speech which he is already undergoing. For sensation of abnormal movement of his tongue, recommending a follow-up in neurology since his physical exam is otherwise normal. I will see him back on a as needed basis. Chief Complaint Dysphagia, feel like there is abnormal movement of the tongue. History of Present Illness Raheem Cody is a 49 year old male present for eval for dysphagia and tongue abnormalities. Patient states that for the last year, he has had some trouble swallowing. Patient stated about a year ago he tried to move his jaw through the right side and he felt something snap in the back of his throat. Since then, he has difficulty with swallowing. He feels that his tongue is not moving correctly and when he tried to swallow his moving forward extended backwards. Patient swallow study in July which per report showed oropharyngeal dysphagia. In the last 6 months, patient had MRI scan of his his face and brain. He also had a MRA of his brain and CTA and CT face. Patient is scheduled for an EGD with GI. PAST MEDICAL HISTORY Diagnosis Date Amphetamine and [...] on File Prior to Visit Medication Sig tiZANidine (ZANAFLEX) 4 mg tablet TAKE 1 TABLET BY MOUTH EVERY DAY NEEDED FOR FACIAL PAIN/JAW PAIN/MUSCLE PULLING DULoxetine DR (CYMBALTA) 30 mg capsule TAKE 1 CAPSULE BY MOUTH ONCE DAILY FOR 7 DAYS, THEN TAKE 2 CAPSULE BY MOUTH ONCE DAILY pregabalin (LYRICA) 75 mg capsule Take 75 mg by mouth. cyanocobalamin, vitamin B-12, (B-12 COMPLIANCE INJECTION) by INJECTION(UNSPECIFIED PARENTERAL ROUTES) route once every month. clonazePAM (KLONOPIN) 1 mg tablet Take 1 mg by mouth two times a day as needed for anxiety. ubidecarenone Q-10 (CO Q-10) 10 mg cap Take 10 mg by mouth three times a day. triamcinolone acetonide (KENALOG) 0.1 % ointment Apply thin layer to affected areas twice daily M-F. Take weekends off. Do not apply to face. (Patient not taking: Reported on 08/02/2024) No current facility-administered medications on file prior [...] palate, tonsillar pillars or posterior pharyngeal wall. Neck: Palpation of the neck revealed no adenopathy, salivary gland masses or asymmetry, or thyroid masses or enlargement. Procedure Flexible laryngoscopy was performed because of the following indication: hyperactive gag and dysphagia: After spraying the nose with 4% xylocaine and 0.5% oxymetazoline, the flexible scope was placed in a transnasal fashion. The nasopharynx, oropharynx, hypopharynx including the pyriform sinuses were normal. The base of tongue showed no gross lesions. The larynx itself showed no lesions. The vocal cords moved well bilaterally. Diya Bonilla MD documented in this encounter [facility] 10-17-2024 Instructions Sofie Reed APRN.INSTRUCTOR TRAINER CANINE SERVICE - 10/17/2024 10:46 AM EDT -to reschedule/schedule EGD, must have shuttle driver, option 0 We discussed your difficulty with swallowing (oropharyngeal dysphagia): - You will need an EGD (upper endoscopy) to evaluate your esophagus for any narrowing or other issues contributing to your swallowing difficulties. This will involve using a camera to examine your esophagus. Our office will arrange this for you. - Continue with speech therapy as recommended. They have suggested that you may benefit from myofunctional speech therapy, which could help address your symptoms. - When you see ENT next week, discuss the clicking and grinding sensations in your jaw and roof of your mouth, as these may be contributing to your symptoms. - To help relax the muscles in your esophagus, try peppermint products such as Altoids (in the red tin), peppermint tea, or peppermint extract before meals. - Focus on consuming liquid protein shakes and soft, mushy foods to ensure you are getting enough calories and nutrients. Avoid large or solid food pieces that may worsen your symptoms. Please follow up with ENT as planned and proceed with the EGD to further evaluate your symptoms. Let us know if your symptoms worsen or if you have any new concerns. documented in this encounter [facility] 10-17-2024 Note HNO ID: [id number] Author: SOFIE REED APRN.KARUNA Service: ? Author Type: Nurse Practitioner Type: Progress Notes Filed: 10/17/2024 10:56 Note Text: New Patient/Consult REASON FOR VISIT Raheem Cody is a 49 year old male who is scheduled for oropharyngeal dysphagia at the consult request of . My final recommendations will be communicated back to the requesting physician by the way of the shared medical record, fax, or via US Mail. PRESENTING COMPLAINT AND HISTORY The patient is a 49-year-old male with TMJ disorder and a history of rhinoplasty, presenting with progressive dysphagia. He reports that his swallowing difficulties began after extraction of a large molar, which was followed by a severe infection requiring antibiotics. He subsequently developed hallucinations, was unable to work, and required hospitalization. Three months later, all remaining teeth were extracted, after which his dysphagia worsened significantly. He describes a sensation of muscle detachment near the jaw and a persistent clicking noise in the palate when swallowing. He also reports a loud snapping sound in the jaw following tooth extraction, after which he developed a crackling sensation in the ear with each swallow. He notes a sensation of being ?pulled back into my scalp? when swallowing and describes a persistent twisting and grinding sensation in the roof of his mouth. He has difficulty swallowing both solids and liquids, with frequent food impaction in the throat, even with small bites of soft foods such as noodles or peaches. He requires multiple swallows to clear food and reports difficulty swallowing saliva. He has no appetite and has experienced unintentional weight loss. He denies current burning sensations in the stomach or chest. He has been undergoing speech therapy for oropharyngeal dysphagia, but reports worsening symptoms. He has also been evaluated by ENT, who performed a rhinoplasty but did not address his swallowing issues. He is scheduled to follow up with ENT in a few days. He has not undergone an upper endoscopy. He states that he feels like he is running out of time due to poor nutritional status related to oropharyngeal dysphagia. 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 He is currently taking Suboxone. Diagnostics: esophagram: No dysmotility or narrowing in the esophagus Does patient have achalasia? No GI EVALUATION Reviewed DULoxetine DR (CYMBALTA) 30 mg capsule TAKE 1 CAPSULE BY MOUTH ONCE DAILY FOR 7 DAYS, THEN TAKE 2 CAPSULE BY MOUTH ONCE DAILY clonazePAM (KLONOPIN) 1 mg tablet Take 1 mg by mouth two times a day as needed for anxiety. tiZANidine (ZANAFLEX) 4 mg tablet TAKE 1 TABLET BY MOUTH EVERY DAY NEEDED FOR FACIAL PAIN/JAW PAIN/MUSCLE PULLING pregabalin (LYRICA) 75 mg capsule Take 75 mg by mouth. cyanocobalamin, vitamin B-12, (B-12 COMPLIANCE INJECTION) by INJECTION(UNSPECIFIED PARENTERAL ROUTES) route once every month. ubidecarenone Q-10 (CO Q-10) 10 mg cap Take 10 mg by mouth three times a day. triamcinolone acetonide (KENALOG) 0.1 % ointment Apply thin layer to affected areas twice daily M-F. Take weekends off. Do not apply to face. (Patient not taking: Reported on 08/02/2024) Penicillins FAMILY HISTORY Colon Cancer: No Other Cancers: No FAMILY HISTORY Problem Relation Age of Onset other (Unknown [Other]) Father other (Anxiety [Other]) Mother PAST MEDICAL HISTORY Diagnosis Date Amphetamine and [...] SURGICAL HISTORY OF 1992 right hand fracture SOCIAL HISTORY[1] REVIEW OF SYSTEMS ROS otherwise negative except per HPI PHYSICAL EXAMINATION BP 113/66 Pulse 62 Ht 5' 10 (1.78m) Wt 164 lb 12.8 oz (74.8kg) SpO2 97% BMI 23.65 kg/(m2). General - Normal, healthy, cooperative, in no acute distress Able to interact well. Psych - ORIENTATION: normal to time place, person and situation Mood/Affect: AFFECT AND MOOD: Normal Head/Neuro - Normal size and shape Facial appearance normal Pulmonary - respiratory effort normal Extremities- extremities normal, warm, no cyanosis,no clubbing, and no edema Skin - abnormal lesions not visualized Motor - patient seen sitting with Normal appearing strength and coordination Assessment Impression and Plan 1. Dysphagia, unspecified type (R13.10) Oropharyngeal dysphagia (R13.12) Persistent dysphagia with worsening symptoms despite ongoing speech therap (more content not included)... [facility] 10-17-2024 History of Present illness Narrative New Patient/Consult REASON FOR VISIT Raheem Cody is a 49 year old male who is scheduled for oropharyngeal dysphagia at the consult request of . My final recommendations will be communicated back to the requesting physician by the way of the shared medical record, fax, or via US Mail. PRESENTING COMPLAINT & HISTORY The patient is a 49-year-old male with TMJ disorder and a history of rhinoplasty, presenting with progressive dysphagia. He reports that his swallowing difficulties began after extraction of a large molar, which was followed by a severe infection requiring antibiotics. He subsequently developed hallucinations, was unable to work, and required hospitalization. Three months later, all remaining teeth were extracted, after which his dysphagia worsened significantly. He describes a sensation of muscle detachment near the jaw and a persistent clicking noise in the palate when swallowing. He also reports a loud snapping sound in the jaw following tooth extraction, after which he developed a crackling sensation in the ear with each swallow. He notes a sensation of being pulled back into my scalp when swallowing and describes a persistent twisting and grinding sensation in the roof of his mouth. He has difficulty swallowing both solids and liquids, with frequent food impaction in the throat, even with small bites of soft foods such as noodles or peaches. He requires multiple swallows to clear food and reports difficulty swallowing saliva. He has no appetite and has experienced unintentional weight loss. He denies current burning sensations in the stomach or chest. He has been undergoing speech therapy for oropharyngeal dysphagia, but reports worsening symptoms. He has also been evaluated by ENT, who performed a rhinoplasty but did not address his swallowing issues. He is scheduled to follow up with ENT in a few days. He has not undergone an upper endoscopy. He states that he feels like he is running out of time due to poor nutritional status related to oropharyngeal dysphagia. 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 He is currently taking Suboxone. Diagnostics: esophagram: No dysmotility or narrowing in the esophagus Does patient have achalasia? No GI EVALUATION Reviewed DULoxetine DR (CYMBALTA) 30 mg capsule TAKE 1 CAPSULE BY MOUTH ONCE DAILY FOR 7 DAYS, THEN TAKE 2 CAPSULE BY MOUTH ONCE DAILY clonazePAM (KLONOPIN) 1 mg tablet Take 1 mg by mouth two times a day as needed for anxiety. tiZANidine (ZANAFLEX) 4 mg tablet TAKE 1 TABLET BY MOUTH EVERY DAY NEEDED FOR FACIAL PAIN/JAW PAIN/MUSCLE PULLING pregabalin (LYRICA) 75 mg capsule Take 75 mg by mouth. cyanocobalamin, vitamin B-12, (B-12 COMPLIANCE INJECTION) by INJECTION(UNSPECIFIED PARENTERAL ROUTES) route once every month. ubidecarenone Q-10 (CO Q-10) 10 mg cap Take 10 mg by mouth three times a day. triamcinolone acetonide (KENALOG) 0.1 % ointment Apply thin layer to affected areas twice daily M-F. Take weekends off. Do not apply to face. (Patient not taking: Reported on 08/02/2024) Penicillins FAMILY HISTORY Colon Cancer: No Other Cancers: No FAMILY HISTORY Problem Relation Age of Onset other (Unknown [Other]) Father other (Anxiety [Other]) Mother PAST MEDICAL HISTORY Diagnosis Date Amphetamine and [...] SURGICAL HISTORY OF 1992 right hand fracture SOCIAL HISTORY[1] REVIEW OF SYSTEMS ROS otherwise negative except per HPI PHYSICAL EXAMINATION BP 113/66 Pulse 62 Ht 5' 10 (1.78m) Wt 164 lb 12.8 oz (74.8kg) SpO2 97% BMI 23.65 kg/(m^2). General - Normal, healthy, cooperative, in no acute distress Able to interact well. Psych - ORIENTATION: normal to time place, person and situation Mood/Affect: AFFECT AND MOOD: Normal Head/Neuro - Normal size and shape Facial appearance normal Pulmonary - respiratory effort normal Extremities- extremities normal, warm, no cyanosis,no clubbing, and no edema Skin - abnormal lesions not visualized Motor - patient seen sitting with Normal appearing strength and coordination Assessment Impression and Plan 1. Dysphagia, unspecified type (R13.10) Oropharyngeal dysphagia (R13.12) Persistent dysphagia with worsening symptoms despite ongoing speech therapy. No signs of aspiration or penetration observed, but mild oral motor impairments noted. Esophagram showed no dysmotility or narrowing in the esophagus. Patient reports significant difficulty swallowing solids and liquids, with food getting stuck in the throat. No current burning sensation or heartburn reported. - Scheduled EGD to evaluate for potential esophageal narrowing or other abnormalities. - Recommended continuation of speech therapy and consideration of myofunctional speech therapy as suggested by current therapist. - Advised patient to focus on liquid protein supplements and soft, mushy foods to ensure adequate nutrition. - Suggested use of peppermint (e.g., Altoids, peppermint tea) to help relax esophageal muscles before meals. - Follow-up with ENT as scheduled to address oropharyngeal issues and clicking sensation in the upper throat. Due to patients poor nutritional intake and tearful disposition in office today, encouraged patient to proceed to emergency room for evaluation. I spent a total of 45 minutes on the date of the service which included preparing to see the patient, [id number] patient care, completing clinical documentation, obtaining and/or reviewing separately obtained history, performing a medically appropriate examination, counseling and educating the patient/family/caregiver, ordering medications, tests, or procedures, communicating with other HCPs (not separately reported), independently interpreting results (not separately reported), communicating results to the patient/family/caregiver, and care coordination (not separately reported). Sofie Reed APRN.INSTRUCTOR TRAINER CANINE SERVICE October 17, 2024 10:25 AM Recording using Breezeplay software for draft documentation of the visit was discussed with the patient/authorized service liaison representative; all questions welcomed and answered. Patient/authorized service liaison representative agreed to proceed. Answers submitted by the patient for this visit: Review of Systems Gastroenterology (Submitted on 10/12/2024) Unitentional Weight Change: Yes A Cough: No Difficulty Breathing: Yes Chest Pain: Yes Belly pain: Yes A feeling of fullness or have belly pain after eating: No Food getting stuck in your throat or chest after eating: Yes Nausea - that is, a feeling like you could vomit: Yes Regurgitation - that is, food or liquid coming back up into your throat or mouth without vomiting, or feel burning behind your breast bone: Yes Loss of appetite: Yes To throw up or vomit: No Blood in your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 breathing or swallowing difficulty, and there is no contraindication with PREEMPT Botox. There is no documented allergic reaction/hypersensitivity to any botulinum toxin and there is no active infection at proposed injection site Dr. Juan F Wright DO, YOVANNY documented in this encounterFisher-Titus [facility]05-28-[facility] History of Present illness Narrative* Jamie Nur MD - 08/02/2024 8:52 AM EDT Images from the original note were not included. Section of Facial Plastic & Reconstructive [facility] CC: post-op IMPRESSION & PLAN: Raheem Cody is a 49 year old male that is recovering well following nasal surgery. We discussed continued care for the nose with ointment and nasal saline spray. Return to clinic 3-4 months. Sooner if issues arise. Will continue to follow up with JOB DEVELOPMENT SPECIALIST and Neuro for jaw and facial pain related tissues (both appts already scheduled) Jamie Nur MD HISTORY: Raheem Cody is a 49 year old male who returns today following nasal surgery. Overall, recovering well. No significant concerns or complaints. 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 N/A - Patient is a non-smoker or quit >1 year ago. Was a referral initiated?N/A Patient is a non-smoker documented in this encounterFisher-Titus [facility]05-28-2025 NoteHNO ID: [id number] Author: JAMIE NUR MD Service: ? Author Type: Fellow Type: Progress Notes Filed: 08/02/2024 08:54 Note Text: Section of Facial Plastic AND Reconstructive [facility] FOLLOW-UP VISIT CC: post-op IMPRESSION AND PLAN: Raheem A Cody is a 49 year old male that is recovering well following nasal surgery. We discussed continued care for the nose with ointment and nasal saline spray. Return to clinic 3-4 months. Sooner if issues arise. Will continue to follow up with JOB DEVELOPMENT SPECIALIST and Neuro for jaw and facial pain related tissues (both appts already scheduled) Jamie Nur MD HISTORY: Raheem Cody is a 49 year old male who [...] reviewed the following radiologic exams: NA PROCEDURES: [facility]05-28-2025 NoteHNO ID: [id number] Author: MARÍA SOARES RN Service: ? Author Type: Registered Nurse Type: Progress Notes Filed: 08/02/2024 08:54 Note Text: Tobacco Use: Types: Cigarettes, Snuff Was smoking cessation packet given? N/A - Patient is a non-smoker or quit >1 year ago. Was a referral initiated?N/A Patient is a non-smokerLicking [facility] Hospital 07-21-2024 Instructions* Patient Instructions* Juan F Wright DO - 07/21/2024 11:34 AM EDT Trial of Tizanidine 4 mg as needed for facial pulling/jaw pain (this is a muscle relaxor, can make you sleepy) Start cymbalta 30 mg every morning Continue the lyrica 75 mg 3x daily Start speech therapy - referral placed documented in this encounterFisher-Titus Medical Center05-16-2025 NoteHNO ID: [id number] Author: SANJANA ENCARNACION MD Service: ? Author Type: Physician Type: Progress Notes Filed: 07/22/2024 11:47 Note Text: Headache and Facial Pain Section [facility] [place] CC: Headache follow-up (impromptu drop in) Follow-up Visit Last visit Date: 06/2024 Raheem Cody is a 49 year old This is [...] - therapy/referrals: He requested a referral to [facility], but also stated he cannot see dentistry at [facility] due to insurance and [facility] is in with dentistry but will provide [...] Constantly pulling out dentures (more content not included)...[facility]05-16-2025 History of Present illness Narrative* Sanjana Encarnacion MD - 07/21/2024 11:03 AM EDT Images from the original note were not included. Headache and Facial Pain [facility] [place] CC: Headache follow-up (impromptu drop in) Follow-up Visit Last visit Date: 06/2024 Raheem Cody is a 49 year old This is [...] and now has had persistent pain R V2-V3,as well as on the left and sometimes behind the ears into the neck. His pain is mostly triggered by swallowing and talking and he describes a burning pain in the top of his mouth and around his gums,but not triggered so much by touching/wind. Presentation [...] - therapy/referrals: He requested a referral to [facility], but also stated he cannot see dentistry at [facility] due to insurance and [facility] is in with dentistry but will provide [...] the face to account for the patient's facialpain. Large left nasal septal spur. IMPRESSION: 1. [...] equally, no drift Gait: normal-based. IMPRESSION: Raheem Cody is a 49 year old who presents with pmhx as listed above here today for follow up regarding:Jaw pain, atypical facial pain, seen 3 weeks ago, coming in without an appt today as a walk-in,accommodated. 1. Jaw pain/Sublingual pain 2. Atypical facial pain - Persistent pain localized to the floor of the mouth, extending to both ears, with a more pronounced discomfort on the left side. - Recent increase in Lyrica to 100 mg TID for pain management post operatively - Continuing efforts to obtain insurance approval for Botox injections; currently awaiting responseregarding Dysport/denial/ 3. Dysphagia, unspecified type - Recent [...] referral to facial/plastics of maxillofacial surgeon at [facility] for further evaluation of sublingual pain is not warranted at this time Dictated via Ambience [employer] with patient permission; fully reviewed and edited by author Patient seen and discussed with Dr. Encarnacion, staff Neurologist. Juan F Wright DO, MBA Headache Medicine Fellow, PGY5 Adult Neurologist/ Board Certified Headache & Facial Pain Section, [facility] Neurological [place] Attending Note: I personally have reviewed the [...] above. Sanjana Encarnacion MD documented in this encounterFisher-Titus Medical Center05-16-2025 Telephone encounter Note * Telephone Encounter - Deann Cummings - 07/21/2024 8:56 AM EDT Call received for Juan F Wright DO regarding Raheem A Cody 1975. Caller: Self Patient Identified by Name [...] as well. Last Office Visit: 06/29/2024 Last [facility] visit: Visit date not found Next scheduled appointment: 10/25/2024 Best number to reach caller: [phone] Best time to reach caller: any time Is it OK to leave a detailed voice message? Yes Deann Weiner [facility]05-16-2025 Miscellaneous Notes* Telephone Encounter - Deann Cummings - 07/21/2024 8:56 AM EDT Call received for Juan F Wright DO regarding Raheem A Cody 1975. Caller: Self Patient Identified by Name [...] as well. Last Office Visit: 06/29/2024 Last [facility] visit: Visit date not found Next scheduled appointment: 10/25/2024 Best number to reach caller: [phone] Best time to reach caller: any time Is it OK to leave a detailed voice message? Yes Deann Weiner documented in this encounterFisher-Titus Medical Center05-15-2025 NoteHNO ID: [id number] Author: ZULEMA VALDEZ APRN.CNP Service: Critical Care [...] Fentanyl discontinued. Will plan to transfer to [facility] overnight as previously planned. Zulema Valdez APRN.INSTRUCTOR TRAINER CANINE SERVICE July 20, 2024 5:31 [facility]05-15-2025 NoteHNO ID: [id number] Author: LIZETTE MCKEON APRN.CRNA Service: ? Author Type: Nurse Wine Master Type: Anesthesia Procedure Notes Filed: 07/20/2024 13:20 Note Text: ANESTHESIOLOGY PROCEDURE NOTE Airway General Information Procedure Start Time/Medication Administration: 07/20/2024 1:03 PM Procedure End Time: 07/20/2024 1:03 PM Patient location during procedure: OR Timeout Performed Pre-procedure: timeout performed Consent Obtained: Yes Patient identity confirmed: arm band and patient Staffing HEAD TRANSFER CLERK: Lizette Mckeon APRN.HEAD TRANSFER CLERK Performed by: HAYLEY Indications and Patient Condition [...] no Airway not difficult SIGNATURE: Lizette Mckeon APRN.HEAD TRANSFER CLERK PATIENT NAME: Raheem Crowley Cody DATE: July 20, 2024 TIME: 1:19 PM CSN: [id number] [facility] Hospital05-14-2025 Miscellaneous Notes* Telephone Encounter - Criselda Suazo RN - 07/19/2024 2:47 PM EDT Pt called spoke and LM with ANGELA stating: SUrgery tomorrow for septum, switched from gabapentin to lyrica. Wants to increase lyrica 75 mg TIDto 200 mg. I called pt to gather more info. No answer. LM for pt to call back. * Telephone Encounter - SUZANNA Campuzano - 07/19/2024 2:47 PM EDT Can go from 75 to 100tid. Too big of a jump from 75 to 200 * Telephone Encounter - Criselda Suazo RN - 07/19/2024 2:47 PM EDT Pt agreeable to increase lyrica 100 mg TID. New order pending for your review documented in this encounterWayne Hospital05-14-2025 Telephone encounter Note* Telephone Encounter - Criselda Suazo RN - 07/19/2024 2:47 PM EDT Pt called spoke and LM with ANGELA stating: SUrgery tomorrow for septum, switched from gabapentin to lyrica. Wants to increase lyrica 75 mg TIDto 200 mg. I called pt to gather more info. No answer. LM for pt to call back. [facility]05-14-[facility] Telephone encounter Note* Telephone Encounter - SUZANNA Campuzano - 07/19/2024 2:47 PM EDT Can go from 75 to 100tid. Too big of a jump from 75 to 200 [facility]05-14-20[facility] Telephone encounter Note* Telephone Encounter - Criselda Suazo RN - 07/19/2024 2:47 PM EDT Pt agreeable to increase lyrica 100 mg TID. New order pending for your review [facility]05-06-20[facility] Instructions* Patient Instructions* Chari Vela APRN.INSTRUCTOR TRAINER CANINE SERVICE - 07/11/2024 7:32 PM EDT Contact your [...] weeks. Most often you should use the boto-kwy-uwrmrew symptomatic treatment/s that your health care provider [...] than the actual influenza. documented in this encounterFisher-Titus Medical Center05-06-2025 NoteHNO ID: [id number] Author: CHARI VELA APRN.KARUNA Service: ? Author Type: Nurse Practitioner Type: Progress Notes Filed: 07/11/2024 19:32 Note Text: Telemedicine Visit - Distance Health Virtual Visit Note Patient seen on VHT Video Visit platform. Location of patient: [place] Carrington Fritz MD, MD I have communicated my name and active licensure. The patient's identity and physical location were verified at the time of this visit. Either the patient or their legal service liaison representative has been informed of the risks [...] due to upcoming procedure. Attestation Recording using Breezeplay software for draft documentation of the visit was discussed with the patient/authorized service liaison representative; all questions welcomed and answered. Patient/authorized service liaison representative agreed to proceed FOLLOW UP WITH ENT DISCUSSED SOON POSSIBLE - Red flags discussed for need for in person care - All questions answered [facility] CODING:[facility]05-06-2025 History of Present illness Narrative * Chari Vela APRN.INSTRUCTOR TRAINER CANINE SERVICE - 07/11/2024 7:24 PM EDT Telemedicine Visit - Distance Health Virtual Visit Note Patient seen on VHT Video Visit platform. Location of patient: [place] Carrington Fritz MD, MD I have communicated my name and active licensure. The patient's identity and physical location wereverified at the time of this visit. Either the patient or their legal service liaison representative has been informed of the risks and benefits of -- and alternatives to -- treatment through a remote evaluation andconsents to proceed with the evaluation remotely. Subjective [...] due to upcoming procedure. Attestation Recording using Breezeplay software for draft documentation of the visit was discussed with the patient/authorized service liaison representative; all questions welcomed and answered. Patient/authorized service liaison representative agreed to proceed FOLLOW UP WITH ENT DISCUSSED SOON POSSIBLE - Red flags discussed for need for in person care - All questions answered MDM CODING: documented in this encounterFisher-Titus [facility] Center05-06-2025 Miscellaneous Notes* Telephone Encounter - YUNIER Mata - 07/11/2024 3:53 PM EDT Patient called stating he had a brain MRI yesterday at [facility] and it showed possible sinusitis. He wanted to check and see if he should be on an antibiotic. Please advise. * Telephone Encounter - Carrington Fritz MD - 07/11/2024 3:53 PM EDT Looking at the report, possible fungal involvement is mentioned, which is a much more complicated problem. I think the MRI finding needs reviewed with ENT. * Telephone Encounter - YUNIER Mata - 07/11/2024 3:53 PM EDT Lmom for patient to call the office. documented in this encounterWayne Hospital05-06-2025 Telephone encounter Note* Telephone Encounter - YUNIER Mata - 07/11/2024 3:53 PM EDT Patient called stating he had a brain MRI yesterday at [facility] and it showed possible sinusitis. He wanted to check and see if he should be on an antibiotic. Please advise. [facility]05-06-[facility] Telephone encounter Note* Telephone Encounter - Carrington Fritz MD - 07/11/2024 3:53 PM EDT Looking at the report, possible fungal involvement is mentioned, which is a much more complicated problem. I think the MRI finding needs reviewed with ENT. [facility]05-06-[facility] Telephone encounter Note* Telephone Encounter - YUNIER Mata - 07/11/2024 3:53 PM EDT Lmom for patient to call the office. [facility]05-06-2025 Miscellaneous Notes* Telephone Encounter - YUNIER Mata - 07/11/2024 3:48 PM EDT Refill request, contract signed. documented in this encounterWayne [facility]05-[facility] Telephone encounter Note* Telephone Encounter - YUNIER Mata - 07/11/2024 3:48 PM EDT Refill request, contract signed. [facility]05-06-2025 Telephone encounter Note* Telephone Encounter - Maikel Morrow - 07/11/2024 5:07 AM EDT Images from the original note were not included. [facility]05-06-2025 Miscellaneous Notes* Telephone Encounter - Maikel Morrow - 07/11/2024 5:07 AM EDT Images from the original note were not included. documented in this encounterFisher-Titus [facility]05-[facility] History of Present illness Narrative* Margi Canales, JOB DEVELOPMENT SPECIALIST - 07/10/2024 2:00 PM EDT Images from the original note were not included. [facility] Speech Language Pathology Raheem Cody Jr. 1975 07/10/[address] Nur, We [...] (such as dysphagia), signed, and dated to: [facility] [address] [place], [place] [address] Thank you for your referral. Signature: documented in this encounterBon [facility] Evaluation + Plan note* Assessment & Plan Note - Denia Orosco APRN.CNP - 07/06/2024 2:42 PM EDTAssociated Problem(s): Opioid dependence in remission (HCC) Assessment: recovering addict since 2006, was on Meth and IV drugs [facility]05-01-2025 Miscellaneous Notes* Assessment & Plan Note - Denia Orosco APRN.CNP - 07/06/2024 2:42 PM EDTAssociated Problem(s): Opioid dependence in remission (HCC) Assessment: recovering addict since 2006, was on Meth and IV drugs * Assessment & Plan Note - Denia Orosco APRN.CNP - 07/06/2024 1:51 PM EDTAssociated Problem(s): Neck pain Assessment: chronic neck and back pain on Gabapentin(Neurontin) * Assessment & Plan Note - Denia Orosco APRN.CNP - 07/06/2024 1:47 PM EDTAssociated Problem(s): Hepatitis C Assessment: Treated Stable Liver enzymes stable documented in this encounterFisher-Titus Medical Center05-01-2025 Instructions* Patient Instructions* Denia Orosco APRN.CNP - 07/06/2024 2:20 PM EDT PATIENT PREOPERATIVE INSTRUCTIONS Donal Hays MD has scheduled you for your procedure at this surgery center: [facility] [place] Scheduling Office: [phone] --[address] [place] [address]. Please read below carefully for your personalized [...] needed If you are currently using a crcy-wth-atru injectable or oral medication for diabetes or weight loss such as Dulaglutide (Trulicity), Exenatide (Byetta, Bydureon), Liraglutide (Victoza, Saxenda), Semaglutide (Ozempic, Wegovy, Rybelsus), or Tirzepatide (Mounjaro), the medicine should be stopped at least 7 days before surgery. These medicines can cause food to remain in your stomach for a very longtime and increase the risks from surgery and [...] Procedures: - YOU MUST HAVE A RESPONSIBLE LEGAL INVESTIGATOR TAKE YOU HOME. A TARGET NETWORK ANALYST OR ICE CREAM MAKER CANNOT BE MADE A RESPONSIBLE LEGAL INVESTIGATOR. - We recommend that a responsible person stays with you overnight to take care of you. - You cannot stay in a hotel alone after outpatient surgery. You will not be permitted to have yoursurgery, if you do not have someone to [...] call the Wednesday before. Your surgeon s carbon sequestration plant operator will tell you what time to call the office. - If you have not reached the departmental carbon sequestration plant operator by 5 P.M., call [phone] after 5 P.M. the day before your surgery. Please be aware that emergency situations arise, which may delay or change your surgical time. If this happens, we will notify you as soon as possible and regret any inconvenience. If you already have an Advance Directive, please fax a copy to [phone] or email to for it to be added to your chart. If you do not have an Advance Directive, you can find the appropriate form and more information at [email or web address]. We recommend that youcomplete the Advance Directive form found on the website and bring it with you the day of your surgery. It can be witnessed and scanned into your chart that day. Denia Orosco APRN.CNP documented in this encounterFisher-Titus [facility]05-01-2025 Evaluation + Plan note* Assessment & Plan Note - Denia Orosco APRN.CNP - 07/06/2024 1:51 PM EDTAssociated Problem(s): Neck pain Assessment: chronic neck and back pain on Gabapentin(Neurontin) [facility]05-01-2025 Evaluation + Plan note* Assessment & Plan Note - Denia Orosco APRN.CNP - 07/06/2024 1:47 PM EDTAssociated Problem(s): Hepatitis C Assessment: Treated Stable Liver enzymes stable [facility]05-01-2025 History and physical note* Denia Orosco APRN.CNP - 07/06/2024 1:40 PM EDT Images from the original note were not included. [facility] HISTORY AND PHYSICAL EXAMINATION SERVICE DATE: 07/06/2024 SERVICE TIME: 1:46 PM PRIMARY CARE PHYSICIAN: Carrington Fritz MD, MD REASON FOR VISIT: Raheem Cody is a 49 year old male who is scheduled for Bilateral - REPAIR NASAL VESTIBULAR STENOSIS SEPTOPLASTY Bilateral - RESECTION SUBMUCOSAL TURBINATES at the request of Dr. Donal Hays for consultation. Myfinal recommendation will be communicated back to the requesting physician by way of shared medicalrecord or letter. Assessment Patient has the following [...] Moreno present: no Lip Bite Test: I Microretrognathia/Micronagthia/Recessed Chin: No DENTAL Dentures, upper: complete. Dentures, [...] have a large neck STOP-Bang Score: 1 [id number] Score: Age: <65 Sex: male CHF history: No Hypertension history: No Stroke/TIA/thromboembolism history: No Vascular disease history: No Diabetes history: No [id number] Score: 0 ARISCAT Score: Age: <=50 Preoperative [...] fevers. Neuro: No history of TIA's, stroke, LITIGATION ATTORNEY ASSOCIATE tumor, impaired sensorium, hemiplegia, paraplegia or quadraplegia. No neurological symptoms or problems. Respiratory: Positive for Tobacco Use Former , Negative for No history of current cough or dyspnea,or pneumonia in the past 6 weeks. No history of respiratory/pulmonary symptoms or problems Cardiovascular: No history of HTN requiring medication, no history of angina, CHF, HI, cardiac surgery or stents. Denies rest pain, [...] or clotting disorder. Pt is not taking anti- coagulation or platelet medications. No history of hematological [...] Imm Admin: COVID-19 vaccine, age 12+ yr ([facility]) PAST MEDICAL HISTORY Diagnosis Date Amphetamine and [...] thin layer to affected areas twice daily M-. Take weekends off. Do not apply to [...] (Bazett) 413 ms Preliminary HEART Calculated P [place] 53 degrees Preliminary HEART Calculated R Salem -68 degrees Preliminary HEART Calculated T [place] 51 degrees Preliminary HEART Impression NORMAL SINUS RHYTHM LEFT AXIS DEVIATION INCOMPLETE RIGHT BUNDLE BRANCH BLOCK , AGE UNDETERMINED ABNORMAL ECG Results-Findings NAME : RAHEEM CODY PID : [id number] : 1975 Gender : Male Race : ORD : [id number] Procedure Date : Jan 07 2022 17:08:09 Edit Date : Jan 07 2022 17:09:29 Diagnosis: NORMAL SINUS RHYTHM LEFT AXIS DEVIATION INCOMPLETE RIG Instructions Given to Patient: Instructions located in the after visit summary. Patient given verbal and written preop instructions and voices comprehension and compliance. SIGNATURE: Denia Orosco APRN.CNP PATIENT NAME: Raheem Cody DATE: 07/06/2024 TIME: 2:41 PM [facility]05-01-2025 History and physical note* Denia Orosco APRN.CNP - 07/06/2024 1:40 PM EDT Images from the original note were not included. [facility] HISTORY AND PHYSICAL EXAMINATION SERVICE DATE: 07/06/2024 SERVICE TIME: 1:46 PM PRIMARY CARE PHYSICIAN: Carrington Fritz MD, MD REASON FOR VISIT: Raheem Cody is a 49 year old male who is scheduled for Bilateral - REPAIR NASAL VESTIBULAR STENOSIS SEPTOPLASTY Bilateral - RESECTION SUBMUCOSAL TURBINATES at the request of Dr. Donal Hays for consultation. Myfinal recommendation will be communicated back to the requesting physician by way of shared medicalrecord or letter. Assessment Patient has the following [...] Moreno present: no Lip Bite Test: I Microretrognathia/Micronagthia/Recessed Chin: No DENTAL Dentures, upper: complete. Dentures, [...] have a large neck STOP-Bang Score: 1 [id number] Score: Age: <65 Sex: male CHF history: No Hypertension history: No Stroke/TIA/thromboembolism history: No Vascular disease history: No Diabetes history: No [id number] Score: 0 ARISCAT Score: Age: <=50 Preoperative [...] fevers. Neuro: No history of TIA's, stroke, LITIGATION ATTORNEY ASSOCIATE tumor, impaired sensorium, hemiplegia, paraplegia or quadraplegia. No neurological symptoms or problems. Respiratory: Positive for Tobacco Use Former , Negative for No history of current cough or dyspnea,or pneumonia in the past 6 weeks. No history of respiratory/pulmonary symptoms or problems Cardiovascular: No history of HTN requiring medication, no history of angina, CHF, HI, cardiac surgery or stents. Denies rest pain, [...] or clotting disorder. Pt is not taking anti- coagulation or platelet medications. No history of hematological [...] Imm Admin: COVID-19 vaccine, age 12+ yr ([facility]) PAST MEDICAL HISTORY Diagnosis Date Amphetamine and [...] thin layer to affected areas twice daily M-. Take weekends off. Do not apply to [...] (Bazett) 413 ms Preliminary HEART Calculated P [place] 53 degrees Preliminary HEART Calculated R Salem -68 degrees Preliminary HEART Calculated T [place] 51 degrees Preliminary HEART Impression NORMAL SINUS RHYTHM LEFT AXIS DEVIATION INCOMPLETE RIGHT BUNDLE BRANCH BLOCK , AGE UNDETERMINED ABNORMAL ECG Results-Findings NAME : RAHEEM CODY PID : [id number] : 1975 Gender : Male Race : ORD : [id number] Procedure Date : Jan 07 2022 17:08:09 Edit Date : Jan 07 2022 17:09:29 Diagnosis: NORMAL SINUS RHYTHM LEFT AXIS DEVIATION INCOMPLETE RIG Instructions Given to Patient: Instructions located in the after visit summary. Patient given verbal and written preop instructions and voices comprehension and compliance. SIGNATURE: Denia Orosco APRN.CNP PATIENT NAME: Raheem Cody DATE: 07/06/2024 TIME: 2:41 PM documented in this encounter[address]29-2025 Telephone encounter Note * Telephone Encounter - Nicolas Washington - 07/04/2024 3:53 PM EDT Left voicemail and MyChart message sent. [facility]04-29-2025 Miscellaneous Notes* Telephone Encounter - Nicolas Washington - 07/04/2024 3:53 PM EDT Left voicemail and MyChart message sent. * Telephone Encounter - Laurel Leon RN - 07/04/2024 12:18 PM EDT Botox referral sent to pharmacy for hemifacial spasm. Please schedule with Dr. Wright. Laurel Leon RN documented in this encounterFisher-Titus [facility] Center04-29-2025 History of Present illness Narrative* SUZANNA Campuzano - 07/04/2024 12:30 PM EDT [facility] [address] [place] [address] Patient: Raheem Cody Jr. Sex: male : 1975 Age: 49 y.o. PCP: Carrington Fritz MD 07/04/2024 Raheem Cody Jr. is here for a(n) post procedure follow up bilateral TMJ injection with 30% relief that continues today . Patient states he continues to have pain when swallowing, but it has since improved after injection. Patient reports will be having nasal reconstruction surgery next month at [facility]. Had [facility]rology appointment 06/29/24. [...] twisting, bending, sneezing and coughing (sitting, walking, lying,transitioning, eating, chewing, opening mouth). The pain is Same all the time. Stiffness is presentAll day. Associated symptoms include pain with swallowing [...] 06/16/2024 Performed by Laurence Blankenship MD at [facility] INJECTION BURSA INTERMEDIATE Bilat TMJ Bilateral 03/24/2024 Performed by Laurence Blankenship MD at [facility] MANDIBLE SURGERY TOOTH EXTRACTION WRIST SURGERY Allergies Allergen Reactions Penicillins Anaphylaxis and Cough Anaphylaxis was listed per [facility]. Family History Problem Relation Age [...] Resource Strain: High Risk (03/05/2024) Received from [facility] Overall Financial Resource Strain (CARDIA) Difficulty of Paying Living Expenses: Very hard Food Insecurity: No Food Insecurity (07/04/2024) Hunger Screening Food Insecurity - Worry: Never True Food Insecurity - Inability: Never True Transportation Needs: No Transportation Needs (03/05/2024) Received from [facility] PRAPARE - Transportation Lack of Transportation (Medical): No Lack of Transportation (Non-Medical): No Recent Concern: Transportation Needs - Unmet Transportation Needs (02/14/2024) PRAPARE - Transportation Lack of Transportation (Medical): No Lack of Transportation (Non-Medical): Yes Physical Activity: Insufficiently Active (03/05/2024) Received from [facility] Exercise Vital Sign Days of Exercise per Week: 3 days Minutes of Exercise per Session: 20 min Stress: Stress Concern Present (03/05/2024) Received from [facility] [place] [employer] - Occupational Stress Questionnaire Feeling of Stress : Very much Social Connections: Moderately Isolated (03/05/2024) Received from [facility] Social Connection and Isolation Panel [NHANES] Frequency of Communication with Friends and Family: Never Frequency of Social Gatherings with Friends and Family: Never Attends Confucianism Services: 1 to 4 times per year Active Member of Clubs or Organizations: No Attends Club or Organization Meetings: More than 4 times per year Marital Status: Never Interpersonal Safety: Not At Risk (03/05/2024) Received from [facility] Humiliation, Afraid, Rape, and Kick questionnaire Fear of Current or Ex-Partner: No Emotionally Abused: No Physically Abused: No Sexually Abused: No Housing Instability: High Risk (03/05/2024) Received from [facility] Housing Stability Vital Sign Unable to Pay [...] as to the type of medication prescribed alongwith directions for use. Potential side effects have [...] monitoring for toxicity Lyrica. OARRS and most recentUDS were reviewed, discussed and appropriate for medications prescribed. The spine model was demonstrated and MRI was reviewed and used to explain the condition. Chronic conditions not treated during this visit that affected my overall medical decision making: Anxiety OARRS: Reviewed. Scribe Statement: IDahlia CNA, scribed for and in the presence of SUZANNA CAMPUZANO who performed the above service. Dahlia Garcia CNA 07/04/24 1352 Dahlia Garcia, OBIE 07/04/24 1353 SUZANNA Campuzano 07/04/24 1519 documented in this encounterWayne Hospital04-29-2025 Telephone encounter Note* Telephone Encounter - Laurel Leon RN - 07/04/2024 12:18 PM EDT Botox referral sent to pharmacy for hemifacial spasm. Please schedule with Dr. Wright. Laurel Leon RN [facility]04-24-2025 NoteHNO ID: [id number] Author: JUAN F WRIGHT, DO Service: ? Author Type: Physician Type: Progress Notes Filed: 06/29/2024 11:13 Note Text: Headache and Facial Pain Section [facility] CC: Headache follow-up Follow-up Visit Last visit Date: 01/2024 Rossana Cody is a 48 year old year old [...] is unable to see dentistry here at [facility] due to insurance. He really feels [...] review the imaging he brought at radiology- [facility] the coming week. He had suggested carbamazepine [...] posterior tuberosity areas b/L. Pt referred to [facility] from Oral Medicine to rule out any indication for surgical treatment for facial pain. At this time no clear cause of pt's pain could be identified and therefore no surgical treatment is indicated at this time. Discussed case w/Dr. Nolan and upon evaluation by Dr. Nolan no clear cause of pt's chronic pain identified. It was recommended a trial of (more content not included)...[facility] 06-19-2024 Miscellaneous Notes* Telephone Encounter - Kate Jones - 06/19/2024 2:25 PM EDT Received new patient referral. Please call patient to schedule a new patient appointment for Trigeminal nerve disorder IS THIS DUE TO AN ACCIDENT? IS THIS WORKER'S COMP? PLEASE VERIFY IF THIS IS WORKERS COMP AND DOCUMENT (We do not accept any new workers comp cases) WHAT INSURANCE? HAVE YOU EVER BEEN SEEN BY A NEUROLOGIST BEFORE? * Telephone Encounter - Sonia Sarmiento - 06/19/2024 2:25 PM EDT 1st attempt: Called and left patient a voicemail letting them know we have received their referral,are ready to schedule, and to call us back at their earliest convenience to do so. Boxer Operator provided callback number for scheduling or to address any questions or concerns they may have. * Telephone Encounter - Jay La - 06/19/2024 2:25 PM EDT 2nd attempt - left message Please schedule patient if call is returned. documented in this encounterWayne Hospital04-14-2025 Telephone encounter Note* Telephone Encounter - Kate Robert - 06/19/2024 2:25 PM EDT Received new patient referral. Please call patient to schedule a new patient appointment for Trigeminal nerve disorder IS THIS DUE TO AN ACCIDENT? IS THIS WORKER'S COMP? PLEASE VERIFY IF THIS IS WORKERS COMP AND DOCUMENT (We do not accept any new workers comp cases) WHAT INSURANCE? HAVE YOU EVER BEEN SEEN BY A NEUROLOGIST BEFORE? [facility]04-14-2025 Telephone encounter Note* Telephone Encounter - Sonia Sarmiento - 06/19/2024 2:25 PM EDT 1st attempt: Called and left patient a voicemail letting them know we have received their referral,are ready to schedule, and to call us back at their earliest convenience to do so. Boxer Operator provided callback number for scheduling or to address any questions or concerns they may have. [facility]04-14-2025 Telephone encounter Note* Telephone Encounter - Jay La - 06/19/2024 2:25 PM EDT 2nd attempt - left message Please schedule patient if call is returned. [facility]04-08-2025 Miscellaneous Notes* Telephone Encounter - Matthias Vela CMA - 06/13/2024 1:16 PM EDT ----- Message from Carrington Fritz MD sent at 06/13/2024 8:34 AM EDT ----- While he has face pain, his symptoms are not suggestive of trigeminal neuralgia. However, neurologyinput would be reasonable to see if they think the MRA findings are contributing to his problems. Ican't recall if he has seen neurology through all this. * Telephone Encounter - Matthias Vela CMA - 06/13/2024 1:16 PM EDT Patient was called and notified, he stated understanding. He stated that he had seen a neurologist at [facility] in [facility] and would contact them for an appointment. * Telephone Encounter - YUNIER Mata - 06/13/2024 1:16 PM EDT Patient called back stating that he is wanting to get a referral to a neurologist with [facility] tohave all his doctors with the same group. Please place referral. documented in this encounterWayne Hospital04-08-2025 Telephone encounter Note* Telephone Encounter - Matthias Vela CMA - 06/13/2024 1:16 PM EDT ----- Message from Carrington Fritz MD sent at 06/13/2024 8:34 AM EDT ----- While he has face pain, his symptoms are not suggestive of trigeminal neuralgia. However, neurologyinput would be reasonable to see if they think the MRA findings are contributing to his problems. Ican't recall if he has seen neurology through all this. [facility]04-08-2025 Telephone encounter Note* Telephone Encounter - Matthias Vela CMA - 06/13/2024 1:16 PM EDT Patient was called and notified, he stated understanding. He stated that he had seen a neurologist at [facility] in [facility] and would contact them for an appointment. [facility] [employer] [id number] Telephone encounter Note* Telephone Encounter - YUNIER Mata - 06/13/2024 1:16 PM EDT Patient called back stating that he is wanting to get a referral to a neurologist with [facility] tohave all his doctors with the same group. Please place referral. [facility] [employer] [id number] NoteHNO ID: [id number] Author: ERICA HART MD Service: ? 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 Erica Hart MD documented in this encounterFisher-[facility]04-[facility]-2025 Miscellaneous Notes* Telephone Encounter - Tala Mane RN - 06/08/2024 2:01 PM EDT Patient arrived to department today to request an increase in Gabapentin. Gabapentin was increased to 600 mg four times daily at 05/30/2024 office visit. Patient states he is getting better relief with the increase however feels 800 mg would be more beneficial. This was discussed with provider who states Gabapentin can be increased to 800 mg four times daily.This will be the max dose. Patient was advised of provider's response and is agreeable. Order pended for Gabapentin 800 mg four times daily. documented in this encounterAdena [facility] CenterTraining [facility]-03-2025 Telephone encounter Note* Telephone Encounter - Tala Mane RN - 06/08/2024 2:01 PM EDT Patient arrived to department today to request an increase in Gabapentin. Gabapentin was increased to 600 mg four times daily at 05/30/2024 office visit. Patient states he is getting better relief with the increase however feels 800 mg would be more beneficial. This was discussed with provider who states Gabapentin can be increased to 800 mg four times daily.This will be the max dose. Patient was advised of provider's response and is agreeable. Order pended for Gabapentin 800 mg four times daily. [facility] [employer] [id number] History of Present illness Narrative* Carrington Fritz MD - 06/01/2024 10:45 AM EDT Subjective Patient ID: Raheem Cody Jr. is a 49 y.o. male. Comes in for review of his situation with his face. Essentially nothing has changed other than he is wearing his dentures and he is going to have surgery for his deviated nasal septum. 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 His symptoms as he has explained them inthe past do not seem necessarily consistent with trigeminal nerve irritation and I reviewed that with him. Klonopin does help him relax which is beneficial for his symptoms. The following portions of the patient's history were reviewed and updated as appropriate: allergies, current medications, past medical history, past social history, past surgical history, and problemlist. Review of Systems Objective Physical Exam HENT: [...] as needed for anxiety. documented in this encounterCopley HospitalGutenbergz [facility] [id number] History of Present illness Narrative* SUZANNA Campuzano - 05/30/2024 12:00 PM EDT [facility] [address] [place] [address] Patient: Raheem Cody JrAlistair Sex: male : 1975 Age: 49 y.o. PCP: Carrington Fritz MD 05/30/2024 Raheem Khan Escobar Tyler. is here for a(n) 2 month follow up. Gabapentin was increased to 600 mg three times daily. Patient feels that the increased dose is helping compared to the 300 mg. Patient had appointment with maxillofacial surgeon. He will be having rhinoplasty at [facility] within the next 2-3 months. [...] negatives include no chest pain, headaches, tingling orweight loss. Associated symptoms comments: Shooting pain to [...] 03/24/2024 Performed by Laurence Blankenship MD at [facility] MANDIBLE SURGERY TOOTH EXTRACTION WRIST SURGERY Allergies Allergen Reactions Penicillins Anaphylaxis and Cough Anaphylaxis was listed per [facility]. Family History Problem Relation Age [...] Resource Strain: High Risk (03/05/2024) Received from [facility] Overall Financial Resource Strain (CARDIA) Difficulty of Paying Living Expenses: Very hard Food Insecurity: No Food Insecurity (05/30/2024) Hunger Screening Food Insecurity - Worry: Never True Food Insecurity - Inability: Never True Transportation Needs: No Transportation Needs (03/05/2024) Received from [facility] PRAPARE - Transportation Lack of Transportation (Medical): No Lack of Transportation (Non-Medical): No Recent Concern: Transportation Needs - Unmet Transportation Needs (02/14/2024) PRAPARE - Transportation Lack of Transportation (Medical): No Lack of Transportation (Non-Medical): Yes Physical Activity: Insufficiently Active (03/05/2024) Received from [facility] Exercise Vital Sign Days of Exercise per Week: 3 days Minutes of Exercise per Session: 20 min Stress: Stress Concern Present (03/05/2024) Received from [facility] [place] [employer] - Occupational Stress Questionnaire Feeling of Stress : Very much Social Connections: Moderately Isolated (03/05/2024) Received from [facility] Social Connection and Isolation Panel [NHANES] Frequency of Communication with Friends and Family: Never Frequency of Social Gatherings with Friends and Family: Never Attends Confucianism Services: 1 to 4 times per year Active Member of Clubs or Organizations: No Attends Club or Organization Meetings: More than 4 times per year Marital Status: Never Interpersonal Safety: Not At Risk (03/05/2024) Received from [facility] Humiliation, Afraid, Rape, and Kick questionnaire Fear of Current or Ex-Partner: No Emotionally Abused: No Physically Abused: No Sexually Abused: No Housing Instability: High Risk (03/05/2024) Received from [facility] Housing Stability Vital Sign Unable to Pay [...] the evening and 1 tablet (600 mg total)before bedtime. TMJ (temporomandibular joint disorder) - Case [...] procedure was described in detail to the patientas well as the potential benefits of pain [...] of the same nature in that the samesymptoms have returned. It is hopeful that this additional injection will provide additional benefit and duration when combined with the previous injection. Prescribed medication that requires intensive monitoring for toxicity: Gabapentin and was increasedat today's office visit. Treatment plans discussed but [...] Suazo RN 05/30/24 1307 SUZANNA Campuzano 05/30/24 1523 documented in this encounterCopley Hospitalworldhistoryproject03-25-2025 Instructions* Patient Instructions* Criselda Suazo RN - 05/30/2024 12:00 PM [...] take you to the nearest emergency room. Tellthe emergency room staff that you recently had [...] it back to normal. documented in this encounterAdena Pike Medical Centerb-datum [id number] NoteHNO ID: [id number] Author: DONAL HAYS MD Service: ? Author Type: Physician Type: Progress Notes Filed: 06/09/2024 16:22 Note Text: Section of Facial Plastic AND Reconstructive Surgery [facility] CC: nasal obstruction Referring Provider: No referring provider defined for this encounter. Phone: N/A Fax: My recommendations will be communicated to the referring provider via the electronic medical record or US mail. IMPRESSION AND PLAN: Raheem Cody is a 49 year old male with [...] Plastic and Reconstructive Surgery Head and Neck [facility] 05/29/2024 HISTORY OF PRESENT ISSUE: Raheem Cody is a 49 year old male who [...] the office encounters from 0 independent providers: NA PATHOLOGY / LABS: I personally reviewed the following reports: NA PROCEDURES: [facility]03-24-2025 History of Present illness Narrative* Donal Hays MD - 05/29/2024 2:55 PM EDT Images from the original note were not included. Section of Facial Plastic & Reconstructive Surgery [facility] NEW [facility]IENT CONSULT[facility] CC: nasal obstruction Referring Provider: No referring provider defined for this encounter. Phone: N/A Fax: My recommendations will be communicated to the referring provider via the electronic medical recordor US mail. IMPRESSION & PLAN: Raheem Cody is a 49 year old male with [...] Plastic and Reconstructive Surgery Head [facility] [place]ck [place] [facility] 05/29/2024 HISTORY OF PRESENT ISSUE: Raheem Cody is a 49 year old male who presents for evaluation of nasal obstruction. History of previous nasal trauma / fractures. Has used nasal steroid spray for > 1 mo without improvement. Leftside is worse than left. No previous nasal [...] the office encounters from 0 independent providers: NA PATHOLOGY / LABS: I personally reviewed the following reports: NA PROCEDURES: NA documented in [facility] encounter[facility] History of Present illness Narrative* Gabe Marin APRN.INSTRUCTOR TRAINER CANINE SERVICE - 05/22/2024 4:00 PM EDT Images from the original note were not included. Spine Care Path Neck Pain - Chronic (> 12 weeks) Follow Up Exam SUBJECTIVE HISTORY OF PRESENT ILLNESS: Raheem Cody is a 49 year old male who presents with a chief complaint of neck pain and is seen in consultation requested by Brandy Erickson PA-C for an opinion regarding neck pain. My final recommendations will be communicated back to the requesting physician by way of shared medical recordor letter via US mail. Patient presents with neck pain for 14 months. He believes symptoms started after having some kindof infection while working in [place]. He states that he became ill in [place] and when he returned to [place] he was diagnosed with an infection . [...] symptoms are connected. 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 Precipitating Event: None PAIN EVALUATION 05/19/2024 194 Pain Level: 7 Pain Location: Cheek Description: Burning;Crushing;Incision;Pressure Ulcer/Injury;Raw;Shooting;Stabbing;Stiffness;Tightness Duration Amount of Time: 2 Duration Units: Years Frequency: Continuous Intervention/Comfort measure: Medication;Distractions;Heat;Splinting;Therapeutic techniques-CPRP Comments: Deviated septum out of control [...] facet and uncinate degenerative change. Right foramen ispatent. C6-C7: Moderate disc height loss. Minimal left [...] PICAs, AICAs and SCAs appear normal. The visualizeddural venous sinuses are patent. Yard Clerk (topogram) images: No significant findings. CT Cervical [...] unremarkable. No mass or adenopathy seen. No fluidcollection or hematoma. Lower neck including larynx, thyroid [...] Cervicalgia (primary encounter diagnosis) Cervical spondylosis Raheem Cody is a 49 year old male with [...] states that he talked to someone at [facility]. He was offered consultation to the [...] which included preparing to see the patient, [id number] patient care, completing clinical documentation, obtaining and/or reviewing separately obtained history, counseling and educating the patient/family/caregiver, and communicating results to the patient/family/caregiver . Imaging Ordered: None SIGNATURE: Gabe Marin APRN.CNP PATIENT NAME: Raheem Cody DATE:May 22, 2024 TIME: 3:59 PM documented in this encounterFisher-[facility]03-[facility]-2025 NoteHNO ID: [id number] Author: GABE MARIN APRN.CNP Service: ? Author Type: Nurse Practitioner Type: Progress Notes Filed: 05/22/2024 16:22 Note Text: Spine Care Path Neck Pain - Chronic (> 12 weeks) Follow Up Exam SUBJECTIVE HISTORY OF PRESENT ILLNESS: Rhaeem Cody is a 49 year old male who [...] some kind of infection while working in [place]. He states that he became ill in [place] and when he returned to [place] he was diagnosed with an infection . [...] symptoms are connected. 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 Precipitating Event: None PAIN EVALUATION 05/19/2024 194 Pain Level: 7 Pain Location: Cheek Description: Burning;Crushing;Incision;Pressure Ulcer/Injury;Raw;Shooting;Stabbing;Stiffness;Tightness Duration Amount of Time: 2 Duration Units: Years Frequency: Continuous Intervention/Comfort measure: Medication;Distractions;Heat;Splinting;Therapeutic techniques-CPRP Comments: Deviated septum out of control [...] worse score. Depression Sc (more content not included)...[facility]03-14-2025 History of Present illness Narrative* Heber Garcia RT(Buck) - 05/19/2024 6:40 PM EDT Radiology Service Progress Note PATIENT NAME: Raheem Cody DATE OF SERVICE: May 19, 2024 TIME: 6:51 PM PATIENT IDENTITY VERIFICATION COMPLETED USING TWO (2) IDENTIFIERS: Name and Date of confirmedby patient verbally and Name and Date of confirmed by identification band. FALL SCREENING: Has the patient had 2 falls in the last year or 1 fall with injury or currently using an Ambulatory Assistive Device (Walker, Cane, Wheelchair, Crutches, etc.)? No PATIENT GENDER DATA: Assigned male at PATIENT RELEVANT IMPLANT DATA REVIEWED: Yes PATIENT PRESENTS WITH AN IMPLANTABLE OR ATTACHED COMMERCIAL LOAN COLLECTION OFFICER: No RADIOLOGY DEPARTMENT: MR; Exam(s) Completed: Spine: Cervical spine PERIPHERAL IV DATA: Not applicable SIGNED BY: RT Porfirio(Buck) May 19, 2024 6:51 PM documented in this encounterFisher-Titus [facility]03-14-2025 NoteHNO ID: [id number] Author: HEBER GARCIA RT(Buck) Service: Radiology Author Type: Technologist Type: Progress Notes Filed: 05/19/2024 18:52 Note Text: Radiology Service Progress Note PATIENT NAME: Raheem Cody DATE OF SERVICE: May 19, 2024 TIME: [...] PATIENT PRESENTS WITH AN IMPLANTABLE OR ATTACHED COMMERCIAL LOAN COLLECTION OFFICER: No RADIOLOGY DEPARTMENT: MR; Exam(s) Completed: Spine: Cervical spine PERIPHERAL IV DATA: Not applicable SIGNED BY: RT Porfirio(Buck) May 19, 2024 6:51 PMMansfield [id number] NoteHNO ID: [id number] Author: BRANDY ERICKSON PA-C Service: ? Author Type: Physician Educational Psychologist Type: Progress Notes Filed: 05/15/2024 15:03 Note [...] these instructions. Informed Consent Consent Obtained: Verbal [place] Protocol A moment to CARE was completed. [...] left shoulder PLAN Follow up as needed [facility] History of Present illness Narrative* Brandy Erickson PA-C - 05/15/2024 3:02 PM EDTAssociated Order(s): Large Joint Arthro/Inj: L subacromial bursa Post-Procedure Diagnose(s): Acute pain of left shoulder; Left shoulder tendonitis Images from the original note were not included. DEPARTMENT OF ORTHOPAEDICS SUBJECTIVE Pt presents today for left shoulder tendonitis, discussed CSI and patient wishes to be a candidate.Denies any complication from previous injections. OBJECTIVE Large [...] these instructions. Informed Consent Consent Obtained: Verbal [place] Protocol A moment to CARE was completed. [...] needed Brandy Erickson PA-C documented in this encounterFisher-[facility]02-28-2025 Miscellaneous Notes* Telephone Encounter - YUNIER Mata - 05/05/2024 11:08 AM EST Refill request, contract signed. documented in this encounterWayne Hospital02-28-2025 Telephone encounter Note* Telephone Encounter - YUNIER Mata - 05/05/2024 11:08 AM EST Refill request, contract signed. [facility]02-26-[facility] History of Present illness Narrative* Jewel Wilson, - 05/03/2024 11:15 AM EST Images from the original note were not included. [facility] PHYSICIANS EAR, NOSE AND THROAT [facility] [facility] [id number] SUBJECTIVE: Patient ID (1975): Raheem Cody Jr. is a 49 y.o. male presents [...] relief when swallowing while drinking water. He reportsconstant dehydration, despite drinking sufficient water and taking vitamins. Already saw rheumatology. Patient has an upcoming appointment to discuss septorhinoplasty with [facility] for nasal congestion/difficulty breathing through his nose. Patient states that he has a vitamin B-12 deficiency per his urologist. Patient is currently takingVitamin B-complex. Patient has obtained dentures, as discussed previously. He has had these for about 5 weeks. Patienthas concerns that his jaw is broken from previous dental extractions. Patient continues to complain of hearing loss and tinnitus described as He hears a static noise intermittently. He continues to complain of ear pain and pressure. Patient continues to state his tissues are falling apart with in his face, pain from his nose alongthe roof of his mouth towards the back [...] 03/24/2024 Performed by Laurence Blankenship MD at [facility] MANDIBLE SURGERY TOOTH EXTRACTION WRIST SURGERY Family [...] Resource Strain: High Risk (03/05/2024) Received from [facility] Overall Financial Resource Strain (CARDIA) Difficulty of Paying Living Expenses: Very hard Food Insecurity: No Food Insecurity (05/08/2024) Hunger Screening Food Insecurity - Worry: Never True Food Insecurity - Inability: Never True Recent Concern: Food Insecurity - Food Insecurity Present (02/14/2024) Hunger Screening Food Insecurity - Worry: Sometimes True Food Insecurity - Inability: Sometimes True Transportation Needs: No Transportation Needs (03/05/2024) Received from [facility] PRAPARE - Transportation Lack of Transportation (Medical): No Lack of Transportation (Non-Medical): No Recent Concern: Transportation Needs - Unmet Transportation Needs (02/14/2024) PRAPARE - Transportation Lack of Transportation (Medical): No Lack of Transportation (Non-Medical): Yes Physical Activity: Insufficiently Active (03/05/2024) Received from [facility] Exercise Vital Sign Days of Exercise per Week: 3 days Minutes of Exercise per Session: 20 min Stress: Stress Concern Present (03/05/2024) Received from [facility] [place] [employer] - Occupational Stress Questionnaire Feeling of Stress : Very much Social Connections: Moderately Isolated (03/05/2024) Received from [facility] Social Connection and Isolation Panel [NHANES] Frequency of Communication with Friends and Family: Never Frequency of Social Gatherings with Friends and Family: Never Attends Confucianism Services: 1 to 4 times per year Active Member of Clubs or Organizations: No Attends Club or Organization Meetings: More than 4 times per year Marital Status: Never Interpersonal Safety: Not At Risk (03/05/2024) Received from [facility] Humiliation, Afraid, Rape, and Kick questionnaire Fear of Current or Ex-Partner: No Emotionally Abused: No Physically Abused: No Sexually Abused: No Housing Instability: High Risk (03/05/2024) Received from [facility] Housing Stability Vital Sign Unable to Pay for Housing in the Last Year: No Number of Times Moved in the Last Year: 0 Homeless in the Last Year: Yes Allergies Allergen Reactions Penicillins Anaphylaxis and Cough Anaphylaxis was listed per [facility]. Current Outpatient Medications Medication Sig [...] day as neededfor anxiety. 60 tablet 0 ketoconazole (NIZORAL) 2 [...] sinus pressure, sinus pain, sore throat and troubleswallowing. Negative for congestion. Respiratory: Negative for cough [...] has an appointment to discuss septorhinoplasty with [facility] for his left deviated nasal septum. - Per patient, Patient with vitamin B-12 deficiency per his urologist. Patient to discuss this withurologist/PCP. Continue his Vit B complex at this time. - Patient to discuss his jaw muscle pain with dentist regarding potential TMJ versus proper denturefit versus other dental concern. He just had them readjusted yesterday. - Patient with dysphagia. Flexible laryngoscopy in the past was WNLs. Swallow studies were WNLs. Hehas had multiple imaging. [facility] ENT physicians has also evaluated him with similar conclusion. - In regards to his asymmetrical hearing loss and tinnitus, we had already obtained a previous audiogram and MRI brain IAC's for workup, negative for retrocochlear pathology. - Return as needed. Scribe Statement: Scribed for and in the presence of Duran Wilson DO by Eva Jones (mike). Eva Jones 05/03/2024 11:29 AM Provider Statement: I Duran Wilson DO personally performed the services described in the documentation as described bythe above named richibe in my presence. It is both accurate [...] this chart were generated using voice recognition [employer] dictation software. Although every effort was made to ensure the accuracy of this automated special services director, some errors in special services director may have occurred. documented in this encounterWayne Hospital02-26-2025 Instructions* Patient Instructions* Duran Wilson DO - 05/03/2024 11:15 AM EST - Patient with black hairy tongue improved significantly from previous visit. He has not smoked since last visit. Biopsy not needed at this time. Continue with oral hygiene. Patient to continue with smoking cessation. - Patient has an appointment to discuss septorhinoplasty with [facility] for his left deviated nasal septum. - Per patient, Patient with vitamin B-12 deficiency per his urologist. Patient to discuss this withurologist/PCP. Continue his Vit B complex at this time. - Patient to discuss his jaw muscle pain with dentist regarding potential TMJ versus proper denturefit versus other dental concern. He just had them readjusted yesterday. - Patient with dysphagia. Flexible laryngoscopy in the past was WNLs. Swallow studies were WNLs. Hehas had multiple imaging. [facility] ENT physicians has also evaluated him with similar conclusion. - In regards to his hearing and tinnitus, we had already obtained a previous audiogram and MRI brain IAC's for workup - Return as needed. documented in this encounterWayne Hospital02-24-2025 History of Present illness Narrative* Carrington Fritz MD - 05/01/2024 11:00 AM EST Subjective Patient ID: Raheem Cody Jr. is a 49 y.o. male. Comes in with 2 concerns which are directly related. His trouble continues to stem from issues withhis facial pain, swallowing, dentures, etc.. He has seen multiple physicians without a specific diagnosis. Infectious disease evaluated him and recommended no more antibiotic or antifungal treatmentsat this time. He has ENT follow-up upcoming in his going to have a biopsy on his tongue. He is going to have additional spinal imaging through the spine clinic at the [facility] and he will be seeing another maxillofacial surgeon in [place] in early May. He remains on gabapentin which mayor may not be helping him. All of this creates significant anxiety for him and Klonopin twice dailydoes seem to help that. He has not [...] usage reviewed and remains beneficial for him. [place] order the facial MRI. Diagnoses and all orders for this visit: Facial pain - MR face with and without contrast; Future Anxiety Seborrhea capitis - ketoconazole (NIZORAL) 2 % shampoo; Apply 1 Application topically 2 (two) times a week. Apply to damp skin, lather, leave on 5 minutes, and rinse documented in this encounterWayne Hospital02-19-2025 NoteHNO ID: [id number] Author: LAURENCE COX RT(Buck) Service: ? Author Type: Technologist Type: Progress Notes Filed: 04/26/2024 12:53 Note Text: Radiology Service Progress Note PATIENT NAME: Raheem Cody DATE OF SERVICE: April 26, 2024 TIME: [...] PATIENT PRESENTS WITH AN IMPLANTABLE OR ATTACHED COMMERCIAL LOAN COLLECTION OFFICER: No RADIOLOGY DEPARTMENT: MR; Exam(s) Completed: Upper MSK: Shoulder, left PERIPHERAL IV DATA: Not applicable SIGNED BY: RT René(Buck) April 26, 2024 12:52 [facility]02-19-2025 History of Present illness Narrative* Laurence Cox RT(Buck) - 04/26/2024 12:52 PM EST Radiology Service Progress Note PATIENT NAME: Raheem Cody DATE OF SERVICE: April 26, 2024 TIME: 12:52 PM PATIENT IDENTITY VERIFICATION COMPLETED USING TWO (2) IDENTIFIERS: Name and Date of confirmedby patient verbally. FALL SCREENING: Has the patient had 2 falls in the last year or 1 fall with injury or currently using an Ambulatory Assistive Device (Walker, Cane, Wheelchair, Crutches, etc.)? No PATIENT GENDER DATA: Assigned male at PATIENT RELEVANT IMPLANT DATA REVIEWED: Yes PATIENT PRESENTS WITH AN IMPLANTABLE OR ATTACHED COMMERCIAL LOAN COLLECTION OFFICER: No RADIOLOGY DEPARTMENT: MR; Exam(s) Completed: Upper MSK: Shoulder, left PERIPHERAL IV DATA: Not applicable SIGNED BY: RT René(Buck) April 26, 2024 12:52 PM documented in this encounterFisher-Titus Medical Center02-19-2025 Telephone encounter Note * Telephone Encounter - Azeb Turner RN - 04/26/2024 8:11 AM EST Neuro SPINE CARE COORDINATION QUICK NOTE Attempted to contact patient, left VM to call the office back. Phone number provided. Also sent mychart message [facility]02-19-2025 Miscellaneous Notes* Telephone Encounter - Azeb Turner RN - 04/26/2024 8:11 AM EST Neuro SPINE CARE COORDINATION QUICK NOTE Attempted to contact patient, left VM to call the office back. Phone number provided. Also sent mychart message * Telephone Encounter - Senia Gray - 04/25/2024 2:44 PM EST Raheem Crowley Cody is calling Gabe Marin APRN.CNP today to ask if there is anything that can be done to help with his swallowing issues. He feels it is related to his neck issues. He has to use extremeeffort to swallow. No chief complaint on file. Patient has been identified by name and birthdate. Duration of symptoms: 10 months Person calling: self Call patient at: at home [phone] (home) Was an appointment scheduled: Yes: Date/Time: [id number] Closing statement: Symptom Call: Thank you for calling [facility], your call is very important. A nurse will call in approximately 2-4 hours during business hours. If this is an emergency, please contact 911. Senia Gray documented in this encounterFisher-Titus Medical Center02-18-2025 Telephone encounter Note * Telephone Encounter - Senia Gray - 04/25/2024 2:44 PM EST Raheem Crowley Cody is calling Gabe Marin APRN.CNP today to ask if there is anything that can be done to help with his swallowing issues. He feels it is related to his neck issues. He has to use extremeeffort to swallow. No chief complaint on file. Patient has been identified by name and birthdate. Duration of symptoms: 10 months Person calling: self Call patient at: at home [phone] (home) Was an appointment scheduled: Yes: Date/Time: [id number] Closing statement: Symptom Call: Thank you for calling [facility], your call is very important. A nurse will call in approximately 2-4 hours during business hours. If this is an emergency, please contact 911. Senia Gray [facility]02-18-2025 Telephone encounter Note* Telephone Encounter - Azeb Turner RN - 04/25/2024 10:34 AM EST Neuro SPINE CARE COORDINATION QUICK NOTE PT order faxed to [facility]02-18-2025 Miscellaneous Notes* Telephone Encounter - Azeb Turner RN - 04/25/2024 10:34 AM EST Neuro SPINE CARE COORDINATION QUICK NOTE PT order faxed to [facility] * Telephone Encounter - Kristal Warren - 04/25/2024 10:25 AM EST Cleopatra at [facility] is calling Gabe Marin APRN.CNP today requesting PT orders to be faxed to their office. Cleopatra states Raheem is already scheduled, they just need the order. F: [phone] P: [phone] Patient has been identified by name and birthdate. Duration of symptoms: N/A Person calling: Cleopatra Call patient at: at home [phone] (home) Was an appointment scheduled: No Closing statement: Results or non-symptom based questions: Thank you for calling [facility], your call will be returned within the next business day. Kristal Warren documented in this encounterFisher[facility]02-[facility]-2025 Telephone encounter Note * Telephone Encounter - Kristal Warren - 04/25/2024 10:25 AM EST Cleopatra at [facility] is calling Gabe Marin APRN.INSTRUCTOR TRAINER CANINE SERVICE today requesting PT orders to be faxed to their office. Cleopatra states Raheem is already scheduled, they just need the order. F: [phone] P: [phone] Patient has been identified by name and birthdate. Duration of symptoms: N/A Person calling: Cleopatra Call patient at: at home [phone] (home) Was an appointment scheduled: No Closing statement: Results or non-symptom based questions: Thank you for calling [facility], your call will be returned within the next business day. Kristal Warren [facility]02-17-2025 NoteHNO ID: [id number] Author: MARIA INES CANCHOLA RT(Buck) Service: ? Author Type: Technologist Type: Progress Notes Filed: 04/24/2024 14:31 Note Text: Radiology Service Progress Note PATIENT NAME: Raheem Cody DATE OF SERVICE: April 24, 2024 TIME: [...] PATIENT PRESENTS WITH AN IMPLANTABLE OR ATTACHED COMMERCIAL LOAN COLLECTION OFFICER: No RADIOLOGY DEPARTMENT: General X-ray: Exam(s) Completed: Spine X-Ray(s): Cervical AP / LAT / OBL PERIPHERAL IV DATA: Not applicable SIGNED BY: ROSA Cabrera) April 24, 2024 2:31 [facility]02-17-2025 History of Present illness Narrative* Maria Ines Canchola RT(R) - 04/24/2024 2:31 PM EST Radiology Service Progress Note PATIENT NAME: Raheem Cody DATE OF SERVICE: April 24, 2024 TIME: 2:31 PM PATIENT IDENTITY VERIFICATION COMPLETED USING TWO (2) IDENTIFIERS: Name and Date of confirmedby patient verbally. FALL SCREENING: Has the patient had 2 falls in the last year or 1 fall with injury or currently using an Ambulatory Assistive Device (Walker, Cane, Wheelchair, Crutches, etc.)? No PATIENT GENDER DATA: Assigned male at PATIENT RELEVANT IMPLANT DATA REVIEWED: Not Applicable PATIENT PRESENTS WITH AN IMPLANTABLE OR ATTACHED COMMERCIAL LOAN COLLECTION OFFICER: No RADIOLOGY DEPARTMENT: General X-ray: Exam(s) Completed: Spine X-Ray(s): Cervical AP / LAT / OBL PERIPHERAL IV DATA: Not applicable SIGNED BY: RT Rick(R) April 24, 2024 2:31 PM documented in this encounterFisher-[facility]02-17-2025 Instructions* Patient Instructions* Gabe Marin APRN.INSTRUCTOR TRAINER CANINE SERVICE - 04/24/2024 2:15 PM EST Images from the original note were not included. Chronic Neck Pain Overview: Neck pain is common. Approximately three out of four [place] adults will experience an episode of neck [...] rare and can be detected by a carefulexamination. Common causes of chronic neck pain, particularly arthritis, can be confirmed by x-rays. MRI or CT are not recommended in most people with neck pain unless significant trauma has occurred or when examination suggests the possibility of cancer or infection. An MRI or CT may be recommendedif compression of the spinal cord is suspected [...] or narcotic medications are not recommended for senior living use. Other medications, particularly antidepressants, may be [...] SIGNATURE: Gabe Marin APRN.CNP PATIENT NAME: Raheem Cody DATE: April 24, 2024 TIME: 2:15 PM documented in this encounterFisher-[facility]02-17-2025 History of Present illness Narrative* Gabe Marin APRN.CNP - 04/24/2024 2:00 PM EST Images from the original note were not included. Spine Care Path Neck Pain - Chronic (> 12 weeks) Initial Exam SUBJECTIVE HISTORY OF PRESENT ILLNESS: Raheem Cody is a 49 year old male who presents with a chief complaint of neck pain and is seen in consultation requested by Brandy Erickson PA-C for an opinion regarding neck pain. My final recommendations will be communicated back to the requesting physician by way of shared medical recordor letter via US mail. Patient presents with neck pain for 14 months. He believes symptoms started after having some kindof infection while working in [place]. He states that he became ill in [place] and when he returned to [place] he was diagnosed with an infection . [...] symptoms are connected. 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 The visualizeddural venous sinuses are patent. Yard Clerk (topogram) images: No significant findings. CT Cervical [...] unremarkable. No mass or adenopathy seen. No fluidcollection or hematoma. Lower neck including larynx, thyroid [...] mass or lump of neck Anxiety Raheem Cody is a 49 year old male with [...] which included preparing to see the patient, frcx-[id number] patient care, completing clinical documentation, obtaining and/or reviewing separately obtained history, performing a medically appropriate examination, counseling and educating the pat ient/family/caregiver, ordering medications, tests, or procedures, and communicating results to thepatient/family/caregiver. Imaging Ordered: For possible Cervical Stenosis and Radiculopathy due to interventional planning, surgical planning,and Failure of conservative treatments listed in HPI/Conservative Treatment Section (NSAIDs, PT, HEP and/or Subway Guard within last 3-6 months) . SIGNATURE: Gbae Marin APRN.CNP PATIENT NAME: Raheem Cody DATE:April 24, 2024 TIME: 1:42 PM documented in this encounterFisher-[facility]02-17-2025 NoteHNO ID: [id number] Author: GABE MARIN APRN.[facility] Service: ? Author Type: Nurse Practitioner Type: Progress Notes Filed: 04/24/2024 15:47 Note Text: Spine Care Path Neck Pain - Chronic (> 12 weeks) Initial Exam SUBJECTIVE HISTORY OF PRESENT ILLNESS: Raheem Cody is a 49 year old male who [...] some kind of infection while working in [place]. He states that he became ill in [place] and when he returned to [place] he was diagnosed with an infection . [...] symptoms are connected. 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 Author [...] nasal obstruction. History of Present Illness Raheem Cody is a 49 year old male present [...] exam was normal. Thro (more content not included)...[facility]02-14-2025 History of Present illness Narrative* Diya Bonilla MD - 04/21/2024 8:57 AM EST This consult is seen at the kind [...] nasal obstruction. History of Present Illness Raheem Cody is a 49 year old male present [...] he felt like something was twisted in hismouth and in his jaw. When he pushes [...] cords moved well bilaterally. Diya Bonilla MD * Coral Barahona RN - 04/21/2024 8:30 AM EST Tobacco Use: Types: Cigarettes Was smoking cessation packet given? Patient Declined Was a referral initiated?Patient declined. documented in this encounterFisher[facility]02-14-2025 NoteHNO ID: [id number] Author: CORAL BARAHONA RN Service: ? Author Type: Registered Nurse Type: Progress Notes Filed: 04/21/2024 08:30 Note Text: Tobacco Use: Types: Cigarettes Was smoking cessation packet given? Patient Declined Was a referral initiated?Patient declined.[facility]02-10-2025 Instructions Includes: Instructions for all patient encounters Instructions to patient Intervention and counseling on cessation of tobacco use, 3-10 minutes Last Documented On 4 4:42PM ; [facility] Education and Decision Aids were provided during visit for: ~*[facility] offered active and sup portive listening, normalized emotions and feelings, and processed ~current stressors Last Documented On 5 5:57PM ; [facility] Discussed nutritional needs teach healthy choices including fruits and vegetables Last Documented On 5 2:16PM ; [facility] Patient education about a pr oper diet Last Documented On 5 2:16PM ; [facility] Discussed concerns about exe rcise : promote physical activity Last Documented On 5 2:16PM ; [facility] Discussed nutritional needs teach healthy choices including fruits and vegetables Last Documented On 4 4:10PM ; [facility] Patient education about a pr oper diet Last Documented On 4 4:10PM ; [facility] Discussed concerns about exe rcise : promote physical activity Last Documented On 4 4:10PM ; [facility] Not requesting contraception Last Documented On 4 4:10PM ; [facility] BHP and RAW STOCK MACHINE LOADER discussed patient s overall functioning, completed his [...] Last Documented On 4 5:20PM ; [facility] Discussed nutritional needs teach healthy choices including fruits and vegetables Last Documented On 4 1:16PM ; [facility] Patient education about a pr oper diet Last Documented On 4 1:16PM ; [facility] Discussed concerns about exe rcise : promote physical activity Last Documented On 4 1:16PM ; [facility] Discussed nutritional needs teach healthy choices including fruits and vegetables Last Documented On 4 1:19PM ; [facility] Patient education about a pr oper diet Last Documented On 4 1:19PM ; [facility] Discussed concerns about exe rcise : promote physical activity Last Documented On 4 1:19PM ; [facility] Discussed nutritional needs teach healthy choices including fruits and vegetables Last Documented On 4 1:14PM ; [facility] Patient education about a pr oper diet Last Documented On 4 1:14PM ; [facility] Discussed concerns about exe rcise : promote physical activity Last Documented On 4 1:14PM ; [facility] Discussed nutritional needs teach healthy choices including fruits and vegetables Last Documented On 4 1:17PM ; [facility] Patient education about a pr oper diet Last Documented On 4 1:17PM ; [facility] Discussed concerns about exe rcise : promote physical activity Last Documented On 4 1:17PM ; [facility] Discussed concerns about uns afe sexual practices Last Documented On 4 1:29PM ; [facility] Discussed concerns about tob acco use Last Documented On 4 1:29PM ; [facility] Discussed concerns about alc ohol use Last Documented On 4 1:29PM ; [facility] Discussed concerns about ill icit drug use Last Documented On 4 1:29PM ; [facility] Patient has agreed to visits every 4 weeks Last Documented On 4 1:29PM ; [facility] Patient aware not to share n eedles, razors, toothbrushes, or nail clippers Last Documented On 4 1:29PM ; [facility] Counseled on medication and herbal product interactions Last Documented On 4 1:29PM ; [facility] Patient is treatment naive Last Documented On 4 1:29PM ; [facility] Patient has an estimated lif e expectancy of 12 months or greater. Last Documented On 4 1:29PM ; [facility] Patient counseled on how to take Hepatitis C Medications Last Documented On 4 1:29PM ; [facility] Patient agreed to labs (CBC, CMP, HCV) every 4 weeks Last Documented On 4 1:29PM ; [facility] Discussed nutritional needs teach healthy choices including fruits and vegetables Last Documented On 4 2:43PM ; [facility] Patient education about a pr oper diet Last Documented On 4 2:43PM ; [facility] Discussed concerns about exe rcise : promote physical activity Last Documented On 4 2:43PM ; [facility] *[facility] offered active and supp ortive listening, normalized emotions and feelings, and processed ~current stressors. ~*Reviewed relapse prevention skills and positive support activities Last Documented On 4 7:56PM ; [facility] Discussed nutritional needs teach healthy choices including fruits and vegetables Last Documented On 4 1:21PM ; [facility] Patient education about a pr oper diet Last Documented On 4 1:21PM ; [facility] Discussed concerns about exe rcise : promote physical activity Last Documented On 4 1:21PM ; [facility] Patient has agreed to visits every 4 weeks Last Documented On 4 1:59PM ; [facility] Patient aware not to share n eedles, razors, toothbrushes, or nail clippers Last Documented On 4 1:59PM ; [facility] Counseled on medication and herbal product interactions Last Documented On 4 1:59PM ; [facility] Patient is treatment naive Last Documented On 4 1:59PM ; [facility] Patient has an estimated lif e expectancy of 12 months or greater. Last Documented On 4 1:59PM ; [facility] Patient counseled on how to take Hepatitis C Medications Last Documented On 4 1:59PM ; [facility] Patient agreed to labs (CBC, CMP, HCV) every 4 weeks Last Documented On 4 1:59PM ; [facility] Work Phone: [phone]) 402-937502-07-2025 Instructions* Patient Instructions* Jose R Aquino MD - 04/14/2024 10:28 AM EST Hydration pedialyte or Gatorlyte or NUUN sport rehydration tablets documented in this encounterFisher-[facility]itus [facility]02-07-2025 NoteHNO ID: [id number] Author: JOSE R AQUINO MD Service: ? Author Type: Physician Type: Progress Notes Filed: 04/14/2024 16:10 Note Text: INFECTIOUS DISEASE CONSULT NOTE Date: April 14, 2024 Patient Name: Raheem Cody Patient is seen at the request of Dr Lyn Shipman PA-C for my opinion regarding e. coli oral culture. My final recommendations will be communicated back to the requesting physician by way of shared Medical Record and communication with consulting team. Jose R Aquino MD HPI: 49 yo M concern by pt of possible E. coli 0517-h7 was in [place] at time of an outbreak [place] -- felt ill afterwards. 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 INFECTIOUS DISEASE CONSULT NOTE Date: April 14, 2024 Patient Name: Raheem Cody Patient is seen at the request of Dr Lyn Shipman PAAshwiniC for my opinion regarding e. coli oral culture. My final recommendations will be communicated back to the requesting physician by way of shared Medical Record and communication with consulting team. Jose R Aquino MD HPI: 49 yo M concern by pt of possible E. 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 Feels his [...] -Risk factor reduction; -Patient education. -Colleague / care-construction helper communication as necessary. NOTE: Any copied forward data in this note has been reviewed by me April 14, 2024 and is present to reiterate continued relevant clinical elements; ensure accuracy; and enhance aumk-ry-tcaw communication re: clinical care of this patient. Medical Decision Making (MDM) Calculator input c/w HIGH MDM in this case today Jose R Aquino MD Staff Physician Infectious Disease documented in this encounterFisher-Titus [facility] Center02-06-2025 NoteHNO ID: [id number] Author: TIEN HEREDIA PT Service: ? Author Type: Physical Therapist Type: Progress Notes Filed: 04/13/2024 11:17 Note Text: 04/13/2024 [facility] PHYSICAL THERAPY DISCONTINUANCE [...] therapy or scheduled additional follow-up appointments. Tien Heredia [facility]02-06-2025 History of Present illness Narrative* SUZANNA Campuzano - 04/13/2024 9:15 AM EST [facility] [address] [place] [address] Patient: Raheem Cody Jr. Sex: male : 1975 Age: 49 y.o. PCP: Carrington Fritz MD 04/13/2024 Raheem Cody Jr. is here for a(n) post procedure follow [...] 03/24/2024 Performed by Laurence Blankenship MD at [facility] MANDIBLE SURGERY TOOTH EXTRACTION WRIST SURGERY Allergies Allergen Reactions Penicillins Anaphylaxis and Cough Anaphylaxis was listed per [facility]. Family History Problem Relation Age [...] Resource Strain: High Risk (03/05/2024) Received from [facility] Overall Financial Resource Strain (CARDIA) Difficulty of Paying Living Expenses: Very hard Food Insecurity: No Food Insecurity (04/13/2024) Hunger Screening Food Insecurity - Worry: Never True Food Insecurity - Inability: Never True Recent Concern: Food Insecurity - Food Insecurity Present (02/14/2024) Hunger Screening Food Insecurity - Worry: Sometimes True Food Insecurity - Inability: Sometimes True Transportation Needs: No Transportation Needs (03/05/2024) Received from [facility] PRAPARE - Transportation Lack of Transportation (Medical): No Lack of Transportation (Non-Medical): No Recent Concern: Transportation Needs - Unmet Transportation Needs (02/14/2024) PRAPARE - Transportation Lack of Transportation (Medical): No Lack of Transportation (Non-Medical): Yes Physical Activity: Insufficiently Active (03/05/2024) Received from [facility] Exercise Vital Sign Days of Exercise per Week: 3 days Minutes of Exercise per Session: 20 min Stress: Stress Concern Present (03/05/2024) Received from [facility] [place] [employer] - Occupational Stress Questionnaire Feeling of Stress : Very much Social Connections: Moderately Isolated (03/05/2024) Received from [facility] Social Connection and Isolation Panel [NHANES] Frequency of Communication with Friends and Family: Never Frequency of Social Gatherings with Friends and Family: Never Attends Confucianism Services: 1 to 4 times per year Active Member of Clubs or Organizations: No Attends Club or Organization Meetings: More than 4 times per year Marital Status: Never Interpersonal Safety: Not At Risk (03/05/2024) Received from [facility] Humiliation, Afraid, Rape, and Kick questionnaire Fear of Current or Ex-Partner: No Emotionally Abused: No Physically Abused: No Sexually Abused: No Housing Instability: High Risk (03/05/2024) Received from [facility] Housing Stability Vital Sign Unable to Pay [...] Anxiety OARRS: Reviewed. Scribe Statement: I, Dahlia Boonie, LOSS PREVENTION ASSOCIATE, scribed for and in the presence of SUZANNA CAMPUZANO who performed the above service. Provider Statement: IGOLD PA, personally performed the services described in the documentation, as scribed by Dahlia Garcia CNA in my presence, and it is both accurate and complete. Dahlia Garcia CNA 04/13/24 0858 Dahlia Garcia CNA 04/13/24 0900 Dahlia Garcia CNA 04/13/24 0940 SUZANNA Campuzano 04/13/24 1157 [facility] Telephone encounter Note* Telephone Encounter - Nesha Hawley - 04/11/2024 12:20 PM EST called AND SPOKE WITH PATIENT, RESCHEDULED TO 04/[address] BONILLA AT [facility] Miscellaneous Notes* Telephone Encounter - Nesha Hawley - 04/11/2024 12:20 PM EST called AND SPOKE WITH PATIENT, RESCHEDULED TO 04/[address] BONILLA AT [facility] * Telephone Encounter - Sin [...] non-symptom based questions: Thank you for calling [facility], your call will be returned within the next business day. Sin Weiner documented in this encounterFisher-[facility]02-04-2025 Telephone encounter Note * Telephone Encounter - Sin Arriaga - [...] non-symptom based questions: Thank you for calling [facility], your call will be returned within the next business day. Sin Weiner [facility]02-03-2025 Miscellaneous Notes* Telephone Encounter - Fernanda Hernandez - 04/10/2024 9:01 AM EST [facility] re appt that was made via [employer]. The reason for visit is sore and infected throat, which does not sound like something he would need to see Vascular Surgeon for. I do not see any referrals in his chart nor testing to indicate necessity for vascular surgeon. Appt was cancelled and patient notified by voicemail as phone was not answered when I called. documented in this encounterWayne [facility]02-[facility] Telephone encounter Note* Telephone Encounter - Fernanda Hernandez - 04/10/2024 9:01 AM EST [facility] re appt that was made via [employer]. The reason for visit is sore and infected throat, which does not sound like something he would need to see Vascular Surgeon for. I do not see any referrals in his chart nor testing to indicate necessity for vascular surgeon. Appt was cancelled and patient notified by voicemail as phone was not answered when I called. [facility]02-01-2025 Miscellaneous Notes* Telephone Encounter - YUNIER Mata - 04/08/2024 5:02 PM EST Patient requesting refill documented in [facility] encounterWayne [facility]02-[facility]-2025 Telephone encounter Note* Telephone Encounter - YUNIER Mata - 04/08/2024 5:02 PM EST Patient requesting refill [facility]02-01-2025 Instructions* Patient Instructions* Mechelle Bains APRN.CNP - 04/08/2024 12:58 PM EST Note sent to [employer]. Keep your follow-up with ENT. Continue treatment as directed. documented in this encounterFisher-Titus [facility] Center02-01-2025 NoteHNO ID: [id number] Author: MECHELLE BAINS APRN.CNP Service: ? Author Type: Nurse Practitioner Type: Progress Notes Filed: 04/08/2024 12:59 Note Text: April 08, 2024 Raheem Crowley Cody 1975 VIRTUAL VISIT PROGRESS NOTE This is [...] visit. Either the patient or their legal service liaison representative has been informed of the risks and benefits of -- and alternatives to -- treatment through a remote evaluation and consents to proceed with the evaluation remotely. Platform patient seen on: [employer] Video Visit platform Location of patient: [place] Cody is a 49 year old male seen [...] V65.49, ICD10: Z71.2 Work note sent to [employer]. Follow-up with ENT as directed. Mechelle Bains APRN.CNP No follow-ups on file. Patient Instructions Note sent to [facility]. Keep your follow-up with ENT. Continue treatment as directed. Medical Decision Making: Problems: Low: Stable chronic illness Data: Unique test result(s) reviewed: 2 Me (more content not included)...[facility]02-01-2025 History of Present illness Narrative* Mechelle Bains APRN.CNP - 04/08/2024 12:41 PM EST Images from the original note were not included. April 08, 2024 Raheem Crowley Cody 1975 VIRTUAL VISIT PROGRESS NOTE This is [...] visit. Either the patient or their legal service liaison representative has been informed of the risks and benefits of -- and alternatives to -- treatment through a remote evaluation andconsents to proceed with the evaluation remotely. Platform patient seen on: [employer] Video Visit platform Location of patient: [place] Cody is a 49 year old male seen [...] V65.49, ICD10: Z71.2 Work note sent to [facility]. Follow-up with ENT as directed. Mechelle Bains APRN.INSTRUCTOR TRAINER CANINE SERVICE No follow-ups on file. Patient Instructions Note sent to [facility]. Keep your follow-up with ENT. Continue treatment [...] would like to continue care with a [facility] Virtual Primary Care physician, please ask your provider to place a Establish PrimaryCare order. Use [employer] to manage your care, wherever you are, 28/09, on your mobile device or computer. [employer] connects you to [employer] so you can access all your health information in one place and also schedule and request virtual appointments with primary care providers. [facility] History general Narrative - Reported Includes: Medical History in patient's chart Description Last Updated No Safety Measures 04/07/2024 Last Documented On 5 5:58PM ; [facility] No previous suicide attempt 03/06/2024 Last Documented On 4 5:21PM ; [facility] No previous hospitalizations 07/15/2023 Last Documented On 4 8:36AM ; [facility] History of viral hepatitis C 04/12/2023 Last Documented On 4 8:31AM ; [facility] Recent immunization for flu 04/12/2023 Last Documented On 4 8:31AM ; [facility] Work Phone: [phone] 744-309901-31-2025 History general Narrative - Reported Includes: Medical History in patient's chart Description Last Updated No Safety Measures 04/07/2024 Last Documented On 5 5:59PM ; [facility] No previous suicide attempt 03/06/2024 Last Documented On 4 5:21PM ; [facility] No previous hospitalizations 07/15/2023 Last Documented On 4 8:36AM ; [facility] History of viral hepatitis C 04/12/2023 Last Documented On 4 8:31AM ; [facility] Recent immunization for flu 04/12/2023 Last Documented On 4 8:31AM ; [facility] Work Phone: [phone] 250-873201-31-2025 History general Narrative - Reported Includes: Medical History in patient's chart Description Last Updated No Safety Measures 04/07/2024 Last Documented On 5 5:59PM ; [facility] No previous suicide attempt 03/06/2024 Last Documented On 4 5:21PM ; [facility] No previous hospitalizations 07/15/2023 Last Documented On 4 8:36AM ; [facility] History of viral hepatitis C 04/12/2023 Last Documented On 4 8:31AM ; [facility] Recent immunization for flu 04/12/2023 Last Documented On 4 8:31AM ; [facility] Work Phone: [phone] 218-887801-31-2025 NoteHNO ID: [id number] Author: BRANDY ERICKSON PA-C Service: ? Author Type: Physician Educational Psychologist Type: Progress Notes Filed: 04/07/2024 13:36 Note Text: DEPARTMENT OF ORTHOPAEDICS SUBJECTIVE Raheemchristine Cody is a 49 year old male Worker's Compensation and legal considerations: none Mr. Cody presents for an initial visit for left [...] positive cross-chest, negative Speed's, negative Yergason's, negative Oceana's test NEUROLOGICAL EXAM: Sensory: sensation intact to light touch Motor: 5/5 biceps, triceps, braille transcriber VASCULAR EXAM: radial AND brachial pulses 2+, [...] created with the as (more content not included)...[facility]01-31-2025 History of Present illness Narrative* Brandy Erickson PA-C - 04/07/2024 1:29 PM EST Images from the original note were not included. DEPARTMENT OF ORTHOPAEDICS JCARLOS Cody is a 49 year old male Worker's Compensation and legal considerations: none Mr. Cody presents for an initial visit for left [...] can 2/5 Lift-off 2/5 SPECIAL TESTS: postive Haerd' impingement, positive cross-chest, negative Speed's, negative Yergason's, negative Oceana's test NEUROLOGICAL EXAM: Sensory: sensation intact to light touch Motor: 5/5 biceps, triceps, braille transcriber VASCULAR EXAM: radial & brachial pulses 2+, [...] of a speech-recognition program. [facility] Instructions Includes: Instructions for all patient encounters Instructions to patient Intervention and counseling on cessation of tobacco use, 3-10 minutes Last Documented On 4 4:42PM ; [facility] Education and Decision Aids were provided during visit for: Discussed nutritional needs teach healthy choices including fruits and vegetables Last Documented On 5 2:16PM ; [facility] Patient education about a pr oper diet Last Documented On 5 2:16PM ; [facility] Discussed concerns about exe rcise : promote physical activity Last Documented On 5 2:16PM ; [facility] Discussed nutritional needs teach healthy choices including fruits and vegetables Last Documented On 4 4:10PM ; [facility] Patient education about a pr oper diet Last Documented On 4 4:10PM ; [facility] Discussed concerns about exe rcise : promote physical activity Last Documented On 4 4:10PM ; [facility] Not requesting contraception Last Documented On 4 4:10PM ; [facility] BHP and RAW STOCK MACHINE LOADER discussed patient s overall functioning, completed his [...] Last Documented On 4 5:20PM ; [facility] Discussed nutritional needs teach healthy choices including fruits and vegetables Last Documented On 4 1:16PM ; [facility] Patient education about a pr oper diet Last Documented On 4 1:16PM ; [facility] Discussed concerns about exe rcise : promote physical activity Last Documented On 4 1:16PM ; [facility] Discussed nutritional needs teach healthy choices including fruits and vegetables Last Documented On 4 1:19PM ; [facility] Patient education about a pr oper diet Last Documented On 4 1:19PM ; [facility] Discussed concerns about exe rcise : promote physical activity Last Documented On 4 1:19PM ; [facility] Discussed nutritional needs teach healthy choices including fruits and vegetables Last Documented On 4 1:14PM ; [facility] Patient education about a pr oper diet Last Documented On 4 1:14PM ; [facility] Discussed concerns about exe rcise : promote physical activity Last Documented On 4 1:14PM ; [facility] Discussed nutritional needs teach healthy choices including fruits and vegetables Last Documented On 4 1:17PM ; [facility] Patient education about a pr oper diet Last Documented On 4 1:17PM ; [facility] Discussed concerns about exe rcise : promote physical activity Last Documented On 4 1:17PM ; [facility] Discussed concerns about uns afe sexual practices Last Documented On 4 1:29PM ; [facility] Discussed concerns about tob acco use Last Documented On 4 1:29PM ; [facility] Discussed concerns about alc ohol use Last Documented On 4 1:29PM ; [facility] Discussed concerns about ill icit drug use Last Documented On 4 1:29PM ; [facility] Patient has agreed to visits every 4 weeks Last Documented On 4 1:29PM ; [facility] Patient aware not to share n eedles, razors, toothbrushes, or nail clippers Last Documented On 4 1:29PM ; [facility] Counseled on medication and herbal product interactions Last Documented On 4 1:29PM ; [facility] Patient is treatment naive Last Documented On 4 1:29PM ; [facility] Patient has an estimated lif e expectancy of 12 months or greater. Last Documented On 4 1:29PM ; [facility] Patient counseled on how to take Hepatitis C Medications Last Documented On 4 1:29PM ; [facility] Patient agreed to labs (CBC, CMP, HCV) every 4 weeks Last Documented On 4 1:29PM ; [facility] Discussed nutritional needs teach healthy choices including fruits and vegetables Last Documented On 4 2:43PM ; [facility] Patient education about a pr oper diet Last Documented On 4 2:43PM ; [facility] Discussed concerns about exe rcise : promote physical activity Last Documented On 4 2:43PM ; [facility] *[facility] offered active and supp ortive listening, normalized emotions and feelings, and processed ~current stressors. ~*Reviewed relapse prevention skills and positive support activities Last Documented On 4 7:56PM ; [facility] Discussed nutritional needs teach healthy choices including fruits and vegetables Last Documented On 4 1:21PM ; [facility] Patient education about a pr oper diet Last Documented On 4 1:21PM ; [facility] Discussed concerns about exe rcise : promote physical activity Last Documented On 4 1:21PM ; [facility] Patient has agreed to visits every 4 weeks Last Documented On 4 1:59PM ; [facility] Patient aware not to share n eedles, razors, toothbrushes, or nail clippers Last Documented On 4 1:59PM ; [facility] Counseled on medication and herbal product interactions Last Documented On 4 1:59PM ; [facility] Patient is treatment naive Last Documented On 4 1:59PM ; [facility] Patient has an estimated lif e expectancy of 12 months or greater. Last Documented On 4 1:59PM ; [facility] Patient counseled on how to take Hepatitis C Medications Last Documented On 4 1:59PM ; [facility] Patient agreed to labs (CBC, CMP, HCV) every 4 weeks Last Documented On 4 1:59PM ; [facility] Work Phone: [phone] Instructions Includes: Instructions for all patient encounters Instructions to patient Intervention and counseling on cessation of tobacco use, 3-10 minutes Last Documented On 4 4:42PM ; [facility] Education and Decision Aids were provided during visit for: ~*P offered active and sup portive listening, normalized emotions and feelings, and processed ~current stressors Last Documented On 5 5:57PM ; [facility] Discussed nutritional needs teach healthy choices including fruits and vegetables Last Documented On 5 2:16PM ; [facility] Patient education about a pr oper diet Last Documented On 5 2:16PM ; [facility] Discussed concerns about exe rcise : promote physical activity Last Documented On 5 2:16PM ; [facility] Discussed nutritional needs teach healthy choices including fruits and vegetables Last Documented On 4 4:10PM ; [facility] Patient education about a pr oper diet Last Documented On 4 4:10PM ; [facility] Discussed concerns about exe rcise : promote physical activity Last Documented On 4 4:10PM ; [facility] Not requesting contraception Last Documented On 4 4:10PM ; [facility] BHP and RAW STOCK MACHINE LOADER discussed patient s overall functioning, completed his [...] Last Documented On 4 5:20PM ; [facility] Discussed nutritional needs teach healthy choices including fruits and vegetables Last Documented On 4 1:16PM ; [facility] Patient education about a pr oper diet Last Documented On 4 1:16PM ; [facility] Discussed concerns about exe rcise : promote physical activity Last Documented On 4 1:16PM ; [facility] Discussed nutritional needs teach healthy choices including fruits and vegetables Last Documented On 4 1:19PM ; [facility] Patient education about a pr oper diet Last Documented On 4 1:19PM ; [facility] Discussed concerns about exe rcise : promote physical activity Last Documented On 4 1:19PM ; [facility] Discussed nutritional needs teach healthy choices including fruits and vegetables Last Documented On 4 1:14PM ; [facility] Patient education about a pr oper diet Last Documented On 4 1:14PM ; [facility] Discussed concerns about exe rcise : promote physical activity Last Documented On 4 1:14PM ; [facility] Discussed nutritional needs teach healthy choices including fruits and vegetables Last Documented On 4 1:17PM ; [facility] Patient education about a pr oper diet Last Documented On 4 1:17PM ; [facility] Discussed concerns about exe rcise : promote physical activity Last Documented On 4 1:17PM ; [facility] Discussed concerns about uns afe sexual practices Last Documented On 4 1:29PM ; [facility] Discussed concerns about tob acco use Last Documented On 4 1:29PM ; [facility] Discussed concerns about alc ohol use Last Documented On 4 1:29PM ; [facility] Discussed concerns about ill icit drug use Last Documented On 4 1:29PM ; [facility] Patient has agreed to visits every 4 weeks Last Documented On 4 1:29PM ; [facility] Patient aware not to share n eedles, razors, toothbrushes, or nail clippers Last Documented On 4 1:29PM ; [facility] Counseled on medication and herbal product interactions Last Documented On 4 1:29PM ; [facility] Patient is treatment naive Last Documented On 4 1:29PM ; [facility] Patient has an estimated lif e expectancy of 12 months or greater. Last Documented On 4 1:29PM ; [facility] Patient counseled on how to take Hepatitis C Medications Last Documented On 4 1:29PM ; [facility] Patient agreed to labs (CBC, CMP, HCV) every 4 weeks Last Documented On 4 1:29PM ; [facility] Discussed nutritional needs teach healthy choices including fruits and vegetables Last Documented On 4 2:43PM ; [facility] Patient education about a pr oper diet Last Documented On 4 2:43PM ; [facility] Discussed concerns about exe rcise : promote physical activity Last Documented On 4 2:43PM ; [facility] *[facility] offered active and supp ortive listening, normalized emotions and feelings, and processed ~current stressors. ~*Reviewed relapse prevention skills and positive support activities Last Documented On 4 7:56PM ; [facility] Discussed nutritional needs teach healthy choices including fruits and vegetables Last Documented On 4 1:21PM ; [facility] Patient education about a pr oper diet Last Documented On 4 1:21PM ; [facility] Discussed concerns about exe rcise : promote physical activity Last Documented On 4 1:21PM ; [facility] Patient has agreed to visits every 4 weeks Last Documented On 4 1:59PM ; [facility] Patient aware not to share n eedles, razors, toothbrushes, or nail clippers Last Documented On 4 1:59PM ; [facility] Counseled on medication and herbal product interactions Last Documented On 4 1:59PM ; [facility] Patient is treatment naive Last Documented On 4 1:59PM ; [facility] Patient has an estimated lif e expectancy of 12 months or greater. Last Documented On 4 1:59PM ; [facility] Patient counseled on how to take Hepatitis C Medications Last Documented On 4 1:59PM ; [facility] Patient agreed to labs (CBC, CMP, HCV) every 4 weeks Last Documented On 4 1:59PM ; [facility] Work Phone: [phone]) 229-154401-31-2025 Instructions Includes: Instructions for all patient encounters Instructions to patient Intervention and counseling on cessation of tobacco use, 3-10 minutes Last Documented On 4 4:42PM ; [facility] Education and Decision Aids were provided during visit for: ~*[facility] offered active and sup portive listening, normalized emotions and feelings, and processed ~current stressors Last Documented On 5 5:57PM ; [facility] Discussed nutritional needs teach healthy choices including fruits and vegetables Last Documented On 5 2:16PM ; [facility] Patient education about a pr oper diet Last Documented On 5 2:16PM ; [facility] Discussed concerns about exe rcise : promote physical activity Last Documented On 5 2:16PM ; [facility] Discussed nutritional needs teach healthy choices including fruits and vegetables Last Documented On 4 4:10PM ; [facility] Patient education about a pr oper diet Last Documented On 4 4:10PM ; [facility] Discussed concerns about exe rcise : promote physical activity Last Documented On 4 4:10PM ; [facility] Not requesting contraception Last Documented On 4 4:10PM ; [facility] BHP and RAW STOCK MACHINE LOADER discussed patient s overall functioning, completed his BH screenings, discuss his mood, recovery, and medications today. ~P noted patient is in signifcant amounts of pain that's increasing his cravings to use and SI. ~[facility] assessed risk for safety and noted patient does have a safety plan/relapse plan with his counselor and access to crisis contacts if he were to need them in the future. ~[facility] offered active and supportive listening, normalized emotions and feelings related to his pain Last Documented On 4 5:20PM ; [facility] Discussed nutritional needs teach healthy choices including fruits and vegetables Last Documented On 4 1:16PM ; [facility] Patient education about a pr oper diet Last Documented On 4 1:16PM ; [facility] Discussed concerns about exe rcise : promote physical activity Last Documented On 4 1:16PM ; [facility] Discussed nutritional needs teach healthy choices including fruits and vegetables Last Documented On 4 1:19PM ; [facility] Patient education about a pr oper diet Last Documented On 4 1:19PM ; [facility] Discussed concerns about exe rcise : promote physical activity Last Documented On 4 1:19PM ; [facility] Discussed nutritional needs teach healthy choices including fruits and vegetables Last Documented On 4 1:14PM ; [facility] Patient education about a pr oper diet Last Documented On 4 1:14PM ; [facility] Discussed concerns about exe rcise : promote physical activity Last Documented On 4 1:14PM ; [facility] Discussed nutritional needs teach healthy choices including fruits and vegetables Last Documented On 4 1:17PM ; [facility] Patient education about a pr oper diet Last Documented On 4 1:17PM ; [facility] Discussed concerns about exe rcise : promote physical activity Last Documented On 4 1:17PM ; [facility] Discussed concerns about uns afe sexual practices Last Documented On 4 1:29PM ; [facility] Discussed concerns about tob acco use Last Documented On 4 1:29PM ; [facility] Discussed concerns about alc ohol use Last Documented On 4 1:29PM ; [facility] Discussed concerns about ill icit drug use Last Documented On 4 1:29PM ; [facility] Patient has agreed to visits every 4 weeks Last Documented On 4 1:29PM ; [facility] Patient aware not to share n eedles, razors, toothbrushes, or nail clippers Last Documented On 4 1:29PM ; [facility] Counseled on medication and herbal product interactions Last Documented On 4 1:29PM ; [facility] Patient is treatment naive Last Documented On 4 1:29PM ; [facility] Patient has an estimated lif e expectancy of 12 months or greater. Last Documented On 4 1:29PM ; [facility] Patient counseled on how to take Hepatitis C Medications Last Documented On 4 1:29PM ; [facility] Patient agreed to labs (CBC, CMP, HCV) every 4 weeks Last Documented On 4 1:29PM ; [facility] Discussed nutritional needs teach healthy choices including fruits and vegetables Last Documented On 4 2:43PM ; [facility] Patient education about a pr oper diet Last Documented On 4 2:43PM ; [facility] Discussed concerns about exe rcise : promote physical activity Last Documented On 4 2:43PM ; [facility] *[facility] offered active and supp ortive listening, normalized emotions and feelings, and processed ~current stressors. ~*Reviewed relapse prevention skills and positive support activities Last Documented On 4 7:56PM ; [facility] Discussed nutritional needs teach healthy choices including fruits and vegetables Last Documented On 4 1:21PM ; [facility] Patient education about a pr oper diet Last Documented On 4 1:21PM ; [facility] Discussed concerns about exe rcise : promote physical activity Last Documented On 4 1:21PM ; [facility] Patient has agreed to visits every 4 weeks Last Documented On 4 1:59PM ; [facility] Patient aware not to share n eedles, razors, toothbrushes, or nail clippers Last Documented On 4 1:59PM ; [facility] Counseled on medication and herbal product interactions Last Documented On 4 1:59PM ; [facility] Patient is treatment naive Last Documented On 4 1:59PM ; [facility] Patient has an estimated lif e expectancy of 12 months or greater. Last Documented On 4 1:59PM ; [facility] Patient counseled on how to take Hepatitis C Medications Last Documented On 4 1:59PM ; [facility] Patient agreed to labs (CBC, CMP, HCV) every 4 weeks Last Documented On 4 1:59PM ; [facility] Work Phone: 1(224) 241-667401-30-2025 Evaluation note Includes: Assessments for all patient encounters Findings Encounter Date [Z68.26 - Body mass index [B HI] 26.0-26.9, adult] assessment of body mass index Medical Established Patient with Vanesa Crouch TRANSPORTATION BROKER 04/06/2024 Last Documented On 5 4:09PM ; [facility] Generalized anxiety disorder Medical Est ablished Patient with Vanesa Crouch TRANSPORTATION BROKER 04/06/2024 Last Documented On 5 4:09PM ; [facility] Methamphetamine dependence - in remission Medical Established Patient with Vanesa Crouch TRANSPORTATION BROKER 04/06/2024 Last Documented On 5 4:09PM ; [facility] Nicotine dependence Medical Established Patient with Vanesatray Neffick TRANSPORTATION BROKER 04/06/2024 Last Documented On 5 4:09PM ; [facility] Opioid dependence in remission Medical E stablished Patient with Vanesatray Neffick TRANSPORTATION BROKER 04/06/2024 Last Documented On 5 4:09PM ; [facility] 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 Medical Established Patient with Vanesa Crouch TRANSPORTATION BROKER 04/06/2024 Last Documented On 5 4:09PM ; [facility] Venipuncture was performed Medical Estab lished Patient with Vanesa Neffick TRANSPORTATION BROKER 04/06/2024 Last Documented On 5 4:09PM ; [facility] Viral hepatitis C Medical Established Patient wi th Vanesa Crouch TRANSPORTATION BROKER 04/06/2024 Last Documented On 5 4:09PM ; [facility] Generalized anxiety disorder BH Established Victoria ent with Patrica Stone FLOUR INSPECTOR 03/06/2024 Last Documented On 4 5:21PM ; [facility] Methamphetamine dependence - in remission Established Patient with Patrica Stone FLOUR INSPECTOR 03/06/2024 Last Documented On 4 5:21PM ; [facility] Nicotine dependence Established Patient with Patrica Stone FLOUR INSPECTOR 03/06/2024 Last Documented On 4 5:21PM ; [facility] RNDx tobacco abuse Established Patient with M virginia Stone FLOUR INSPECTOR 03/06/2024 Last Documented On 4 5:21PM ; [facility] Severe opioid dependence in sustained remission Established Patient with Patrica Stone FLOUR INSPECTOR 03/06/2024 Last Documented On 4 5:21PM ; [facility] Assessment of body mass index Medical Es tablished Patient with Vanesa Jules [employer]SPORTATION BROKER 03/06/2024 Last Documented On 4 5:06PM ; [facility] Body mass index Medical Established Patient with Vanesa Jules [employer]SP[employer] BROKER 03/06/2024 Last Documented On 4 5:06PM ; [facility] Generalized anxiety disorder Medical Est ablished Patient with Vanesa Jules [employer]SPORTATION BROKER 03/06/2024 Last Documented On 4 5:06PM ; [facility] Nicotine dependence Medical Established Patient with Vanesa Jules [employer]SPORTATION BROKER 03/06/2024 Last Documented On 4 5:06PM ; [facility] Onychomycosis of the toenails Medical Es tablished Patient with Vanesa Jules [employer]SPORTATION BROKER 03/06/2024 Last Documented On 4 5:06PM ; [facility] 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 Medical Established Patient with Vanesa Crouch [facility] 03/06/2024 Last Documented On 4 5:06PM ; [facility] Viral hepatitis C Medical Established Patient wi zuleika Crouch [facility] 03/06/2024 Last Documented On 4 5:06PM ; [facility] [Z68.26 - Body mass index [B HI] 26.0-26.9, adult] assessment of body mass index Medical Established Patient with Colette Vuong [facility] 08/25/2023 Last Documented On 4 8:38AM ; [facility] Assessment of BMI Percentile = 5% to < 85% for age Z68.52 Medical Established Patient with Colette Yevgeniy [facility] 08/25/2023 Last Documented On 4 8:38AM ; [facility] Nicotine dependence Medical Established Patient with Colette Yevgeniy [facility] 08/25/2023 Last Documented On 4 8:38AM ; [facility] Oral thrush Medical Established Patient with Colette Yevgeniy [facility] 08/25/2023 Last Documented On 4 8:38AM ; [facility] Otogenic otalgia of right ear Medical Es tablished Patient with Colette Vuong [facility] 08/25/2023 Last Documented On 4 8:38AM ; [facility] 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 Medical Established Patient with Colette Yevgeniy [facility] 08/25/2023 Last Documented On 4 8:38AM ; [facility] Viral hepatitis C Medical Established Patient wi zuleika Vuong [facility] 08/25/2023 Last Documented On 4 8:38AM ; [facility] Visit for: therapeutic drug monitoring Medical Established Patient with Colette Yevgeniy [facility] 08/25/2023 Last Documented On 4 8:38AM ; [facility] [Z68.26 - Body mass index [B HI] 26.0-26.9, adult] assessment of body mass index Medical Established Patient with Colette Yevgeniy [employer] 07/15/2023 Last Documented On 4 8:36AM ; [facility] Nicotine dependence Medical Established Patient with Colette Yevgeniy [facility] 07/15/2023 Last Documented On 4 8:36AM ; [facility] 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 Medical Established Patient with Colette Vuong [employer] 07/15/2023 Last Documented On 4 8:36AM ; [facility] Viral hepatitis C Medical Established Patient wi th Coletet Vuong [employer] 07/15/2023 Last Documented On 4 8:36AM ; [facility] Viral hepatitis C Medical Established Patient wi th Colette Vuong [employer] 07/15/2023 Last Documented On 4 8:36AM ; [facility] Visit for: screening for depression [facility] Established Patient with Colette Vuong [employer] 07/15/2023 Last Documented On 4 8:36AM ; [facility] [Z68.25 - Body mass index [B HI] 25.0-25.9, adult] assessment of body mass index Medical Established Patient with Colette Vuong [employer] 06/03/2023 Last Documented On 4 9:49AM ; [facility] Nicotine dependence Medical Established Patient with Colette Vuong [employer] 06/03/2023 Last Documented On 4 9:49AM ; [facility] 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 Medical Established Patient with Colette Vuong [employer] 06/03/2023 Last Documented On 4 9:49AM ; [facility] Viral hepatitis C Medical Established Patient wi th Colette Vuong [employer] 06/03/2023 Last Documented On 4 9:49AM ; [facility] Visit for: screening for STD Medical Est ablished Patient with Colette Vuong [employer] 06/03/2023 Last Documented On 4 9:49AM ; [facility] [Z68.24 - Body mass index [B HI] 24.0-24.9, adult] assessment of body mass index Medical Established Patient with Colette Vuong [employer] 05/10/2023 Last Documented On 4 8:24AM ; [facility] Generalized anxiety disorder Medical Est ablished Patient with Colette Vuong [employer] 05/10/2023 Last Documented On 4 8:24AM ; [facility] Nicotine dependence Medical Established Patient with Colette Yevgeniy [employer] 05/10/2023 Last Documented On 4 8:24AM ; [facility] Onychomycosis of the toenails Medical Es tablished Patient with Colette Vuong [employer] 05/10/2023 Last Documented On 4 8:24AM ; [facility] Otogenic otalgia of right ear Medical Es tablished Patient with Colette Vuong [employer] 05/10/2023 Last Documented On 4 8:24AM ; [facility] 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 Medical Established Patient with Colette Vuong [employer] 05/10/2023 Last Documented On 4 8:24AM ; [facility] Viral hepatitis C Medical Established Patient wi th Colette Vuong [facility] 05/10/2023 Last Documented On 4 8:24AM ; [facility] [Z68.24 - Body mass index [B HI] 24.0-24.9, adult] assessment of body mass index Open Access - Established with Colette Vuong [facility] 04/26/2023 Last Documented On 4 8:20AM ; [facility] Nicotine dependence Open Access - Established wi th Colette Vuong [facility] 04/26/2023 Last Documented On 4 8:20AM ; [facility] Otogenic otalgia of right ear Open Acces s - Established with Colette Vuong [facility] 04/26/2023 Last Documented On 4 8:20AM ; [facility] 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 Open Access - Established with Colette Vuong [facility] 04/26/2023 Last Documented On 4 8:20AM ; [facility] Generalized anxiety disorder BH Established Victoria ent with Bri Barrow [facility] 04/12/2023 Last Documented On 4 7:57PM ; [facility] Nicotine dependence BH Established Patient with Bri Barrow [employer] 04/12/2023 Last Documented On 4 7:57PM ; [facility] [Z68.23 - Body mass index [B HI] 23.0-23.9, adult] assessment of body mass index Medical New Patient with Colette Vuong [employer] 04/12/2023 Last Documented On 4 8:31AM ; [facility] Acute otitis media of left ear Medical N ew Patient with Colette Vuong [employer] 04/12/2023 Last Documented On 4 8:31AM ; [facility] Diabetes Risk Test Score was three score 04/12/2023 Medical New Patient with Colette Vuong [employer] 04/12/2023 Last Documented On 4 8:31AM ; [facility] Nicotine dependence Medical New Patient with Prosper Vuong [employer] 04/12/2023 Last Documented On 4 8:31AM ; [facility] Screening for HIV Medical New Patient with Francois Vuong [employer] 04/12/2023 Last Documented On 4 8:31AM ; [facility] Upper respiratory infection Medical New Patient with Colette Vuong [employer] 04/12/2023 Last Documented On 4 8:31AM ; [facility] Visit for: screening for dig estive system disorders Medical New Patient with Colette Vuong [employer] 04/12/2023 Last Documented On 4 8:31AM ; [facility] Work Phone: [phone]) 659-371201-30-2025 Evaluation note Includes: Assessments for all patient encounters Findings Encounter Date [Z68.26 - Body mass index [B HI] 26.0-26.9, adult] assessment of body mass index Medical Established Patient with Vanesa Crouch TRANSPORTATION BROKER 04/06/2024 Last Documented On 5 3:04PM ; [facility] Generalized anxiety disorder Medical Est ablished Patient with Vanesa Jules [employer]SPORTATION BROKER 04/06/2024 Last Documented On 5 3:04PM ; [facility] Methamphetamine dependence - in remission Medical Established Patient with Vanesa Jules [employer]SP[employer] BROKER 04/06/2024 Last Documented On 5 3:04PM ; [facility] Nicotine dependence Medical Established Patient with Vanesa Jules [employer]SP[employer] BROKER 04/06/2024 Last Documented On 5 3:04PM ; [facility] Opioid dependence in remission Medical E stablished Patient with Vanesa Jules [employer]SPORTATION BROKER 04/06/2024 Last Documented On 5 3:04PM ; [facility] 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 Medical Established Patient with Vanesa Crouch [employer]SPORTATION BROKER 04/06/2024 Last Documented On 5 3:04PM ; [facility] Venipuncture was performed Medical Estab lished Patient with Vanesa Neffick [employer]SPORT[employer] BROKER 04/06/2024 Last Documented On 5 3:04PM ; [facility] Viral hepatitis C Medical Established Patient wi th Vanesa Crouch [employer]SP[employer] BROKER 04/06/2024 Last Documented On 5 3:04PM ; [facility] Generalized anxiety disorder Established Victoria ent with Patrica Stone FLOUR INSPECTOR 03/06/2024 Last Documented On 4 5:21PM ; [facility] Methamphetamine dependence - in remission BH Established Patient with Patrica Stone FLOUR INSPECTOR 03/06/2024 Last Documented On 4 5:21PM ; [facility] Nicotine dependence Established Patient with Patrica Stone FLOUR INSPECTOR 03/06/2024 Last Documented On 4 5:21PM ; [facility] RNDx tobacco abuse Established Patient with M virginia Stone FLOUR INSPECTOR 03/06/2024 Last Documented On 4 5:21PM ; [facility] Severe opioid dependence in sustained remission Established Patient with Patrica Stone FLOUR INSPECTOR 03/06/2024 Last Documented On 4 5:21PM ; [facility] Assessment of body mass index Medical Es tablished Patient with Vanesa Neffick [employer]SPORTATION BROKER 03/06/2024 Last Documented On 4 5:06PM ; [facility] Body mass index Medical Established Patient with Vanesa Neffick [employer]SPORT[employer] BROKER 03/06/2024 Last Documented On 4 5:06PM ; [facility] Generalized anxiety disorder Medical Est ablished Patient with Vanesa Neffick [employer]SPORT[employer] BROKER 03/06/2024 Last Documented On 4 5:06PM ; [facility] Nicotine dependence Medical Established Patient with Vanesa Neffick [employer]SPORT[employer] BROKER 03/06/2024 Last Documented On 4 5:06PM ; [facility] Onychomycosis of the toenails Medical Es tablished Patient with Vanesa Crouch [employer]SPORT[employer] BROKER 03/06/2024 Last Documented On 4 5:06PM ; [facility] 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 Medical Established Patient with Vanesa Crouch [employer]SPORT[employer] BROKER 03/06/2024 Last Documented On 4 5:06PM ; [facility] Viral hepatitis C Medical Established Patient wi th Vanesa Crouch [facility] 03/06/2024 Last Documented On 4 5:06PM ; [facility] [Z68.26 - Body mass index [B HI] 26.0-26.9, adult] assessment of body mass index Medical Established Patient with Colette Vuong [facility] 08/25/2023 Last Documented On 4 8:38AM ; [facility] Assessment of BMI Percentile = 5% to < 85% for age Z68.52 Medical Established Patient with Colette Vuong [facility] 08/25/2023 Last Documented On 4 8:38AM ; [facility] Nicotine dependence Medical Established Patient with Colette Vuong [facility] 08/25/2023 Last Documented On 4 8:38AM ; [facility] Oral thrush Medical Established Patient with Colette Vuong [facility] 08/25/2023 Last Documented On 4 8:38AM ; [facility] Otogenic otalgia of right ear Medical Es tablished Patient with Colette Vuong [facility] 08/25/2023 Last Documented On 4 8:38AM ; [facility] 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 Medical Established Patient with Cloette Vuong [facility] 08/25/2023 Last Documented On 4 8:38AM ; [facility] Viral hepatitis C Medical Established Patient wi th Colette Vuong [facility] 08/25/2023 Last Documented On 4 8:38AM ; [facility] Visit for: therapeutic drug monitoring Medical Established Patient with Colette Vuong [facility] 08/25/2023 Last Documented On 4 8:38AM ; [facility] [Z68.26 - Body mass index [B HI] 26.0-26.9, adult] assessment of body mass index Medical Established Patient with Colette Vuong [employer] 07/15/2023 Last Documented On 4 8:36AM ; [facility] Nicotine dependence Medical Established Patient with Colettekeo Vuong [employer] 07/15/2023 Last Documented On 4 8:36AM ; [facility] 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 Medical Established Patient with Colette Vuong [employer] 07/15/2023 Last Documented On 4 8:36AM ; [facility] Viral hepatitis C Medical Established Patient wi th Colette Vuong [employer] 07/15/2023 Last Documented On 4 8:36AM ; [facility] Viral hepatitis C Medical Established Patient wi Colette Vuong [employer] 07/15/2023 Last Documented On 4 8:36AM ; [facility] Visit for: screening for depression [facility] Established Patient with Colette Vuong [employer] SERV[employer] 07/15/2023 Last Documented On 4 8:36AM ; [facility] [Z68.25 - Body mass index [B HI] 25.0-25.9, adult] assessment of body mass index Medical Established Patient with Colette Vuong [employer] SERV[employer] 06/03/2023 Last Documented On 4 9:49AM ; [facility] Nicotine dependence Medical Established Patient with Colette Vuong [employer] 06/03/2023 Last Documented On 4 9:49AM ; [facility] 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 Medical Established Patient with Colette Vuong [employer] 06/03/2023 Last Documented On 4 9:49AM ; [facility] Viral hepatitis C Medical Established Patient wi th Colette Vuong [facility] 06/03/2023 Last Documented On 4 9:49AM ; [facility] Visit for: screening for STD Medical Est ablished Patient with Colette Vuong [employer] 06/03/2023 Last Documented On 4 9:49AM ; [facility] [Z68.24 - Body mass index [B HI] 24.0-24.9, adult] assessment of body mass index Medical Established Patient with Colettekeo Vuong [employer] 05/10/2023 Last Documented On 4 8:24AM ; [facility] Generalized anxiety disorder Medical Est ablished Patient with Colette Vuong [employer] 05/10/2023 Last Documented On 4 8:24AM ; [facility] Nicotine dependence Medical Established Patient with Colette Vuong [employer] 05/10/2023 Last Documented On 4 8:24AM ; [facility] Onychomycosis of the toenails Medical Es tablished Patient with Colette Vuong [employer] 05/10/2023 Last Documented On 4 8:24AM ; [facility] Otogenic otalgia of right ear Medical Es tablished Patient with Colette Vuong [employer] 05/10/2023 Last Documented On 4 8:24AM ; [facility] 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 Medical Established Patient with Colette Vuong [employer] 05/10/2023 Last Documented On 4 8:24AM ; [facility] Viral hepatitis C Medical Established Patient wi th Colette Vuong [employer] 05/10/2023 Last Documented On 4 8:24AM ; [facility] [Z68.24 - Body mass index [B HI] 24.0-24.9, adult] assessment of body mass index Open Access - Established with Colette Vuong [facility] 04/26/2023 Last Documented On 4 8:20AM ; [facility] Nicotine dependence Open Access - Established wi th Colette Vuong [facility] 04/26/2023 Last Documented On 4 8:20AM ; [facility] Otogenic otalgia of right ear Open Acces s - Established with Colette Vuong [facility] 04/26/2023 Last Documented On 4 8:20AM ; [facility] 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 Open Access - Established with Colette Vuogn [employer] TRA[employer] SERV[employer] 04/26/2023 Last Documented On 4 8:20AM ; [facility] Generalized anxiety disorder Established Victoria ent with Bri WARE 04/12/2023 Last Documented On 4 7:57PM ; [facility] Nicotine dependence Established Patient with Bri Barrow [employer] 04/12/2023 Last Documented On 4 7:57PM ; [facility] [Z68.23 - Body mass index [B HI] 23.0-23.9, adult] assessment of body mass index Medical New Patient with Colette Vuong [employer] 04/12/2023 Last Documented On 4 8:31AM ; [facility] Acute otitis media of left ear Medical N ew Patient with Colette Vuong [employer] SERV[employer] 04/12/2023 Last Documented On 4 8:31AM ; [facility] Diabetes Risk Test Score was three score 04/12/2023 Medical New Patient with Colette Vuong [employer] SERV[employer] 04/12/2023 Last Documented On 4 8:31AM ; [facility] Nicotine dependence Medical New Patient with Prosper Vuong [employer] SERV[employer] 04/12/2023 Last Documented On 4 8:31AM ; [facility] Screening for HIV Medical New Patient with Francois Vuong [employer] SERV[employer] 04/12/2023 Last Documented On 4 8:31AM ; [facility] Upper respiratory infection Medical New Patient with Colette Vuong [employer] SERV[employer] 04/12/2023 Last Documented On 4 8:31AM ; [facility] Visit for: screening for dig estive system disorders Medical New Patient with Colette Vuong [employer] SERV[employer] 04/12/2023 Last Documented On 4 8:31AM ; [facility] Work Phone: 1([phone]) 473-505101-30-2025 Evaluation note Includes: Assessments for all patient encounters Findings Encounter Date Generalized anxiety disorder Established Victoria ent with Bri Barrow [employer] 04/06/2024 Last Documented On 5 5:58PM ; [facility] Nicotine dependence Established Patient with Bri Barrow [employer] 04/06/2024 Last Documented On 5 5:58PM ; [facility] [Z68.26 - Body mass index [B HI] 26.0-26.9, adult] assessment of body mass index Medical Established Patient with Vanesa RILEY 04/06/2024 Last Documented On 5 3:04PM ; [facility] Generalized anxiety disorder Medical Est ablished Patient with Vanesa Neffick [employer]SPORTATION BROKER 04/06/2024 Last Documented On 5 3:04PM ; [facility] Methamphetamine dependence - in remission Medical Established Patient with Vanesa Rothmanderick [employer]SPORTATION BROKER 04/06/2024 Last Documented On 5 3:04PM ; [facility] Nicotine dependence Medical Established Patient with Vanesa Jules [employer]SPORTATION BROKER 04/06/2024 Last Documented On 5 3:04PM ; [facility] Opioid dependence in remission Medical E stablished Patient with Vanesatray Neffick [employer]SPORTATION BROKER 04/06/2024 Last Documented On 5 3:04PM ; [facility] 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 Medical Established Patient with Vanesa Jules [employer]SPORTATION BROKER 04/06/2024 Last Documented On 5 3:04PM ; [facility] Venipuncture was performed Medical Estab lished Patient with Vanesa Neffick [employer]SPORTATION BROKER 04/06/2024 Last Documented On 5 3:04PM ; [facility] Viral hepatitis C Medical Established Patient wi th Vanesa Crouch [employer]SPORT[employer] BROKER 04/06/2024 Last Documented On 5 3:04PM ; [facility] Generalized anxiety disorder BH Established Victoria ent with Patrica Stone FLOUR INSPECTOR 03/06/2024 Last Documented On 4 5:21PM ; [facility] Methamphetamine dependence - in remission BH Established Patient with Patrica Stone FLOUR INSPECTOR 03/06/2024 Last Documented On 4 5:21PM ; [facility] Nicotine dependence BH Established Patient with Patrica Stone FLOUR INSPECTOR 03/06/2024 Last Documented On 4 5:21PM ; [facility] RNDx tobacco abuse BH Established Patient with M virginia Stone FLOUR INSPECTOR 03/06/2024 Last Documented On 4 5:21PM ; [facility] Severe opioid dependence in sustained remission BH Established Patient with Patrica Stone FLOUR INSPECTOR 03/06/2024 Last Documented On 4 5:21PM ; [facility] Assessment of body mass index Medical Es tablished Patient with Vanesa Crouch [employer]SPORTATION BROKER 03/06/2024 Last Documented On 4 5:06PM ; [facility] Body mass index Medical Established Patient with Vanesa Crouch [employer]SPORTATION BROKER 03/06/2024 Last Documented On 4 5:06PM ; [facility] Generalized anxiety disorder Medical Est ablished Patient with Vanesa Crouch [employer]SPORTATION BROKER 03/06/2024 Last Documented On 4 5:06PM ; [facility] Nicotine dependence Medical Established Patient with Vanesa Neffick [employer]SPORTATION BROKER 03/06/2024 Last Documented On 4 5:06PM ; [facility] Onychomycosis of the toenails Medical Es tablished Patient with Vanesa Crouch [employer]SPORTATION BROKER 03/06/2024 Last Documented On 4 5:06PM ; [facility] 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 Medical Established Patient with Vanesa Neffick [employer]SPORTATION BROKER 03/06/2024 Last Documented On 4 5:06PM ; [facility] Viral hepatitis C Medical Established Patient wi th Vanesa Crouch [employer]SPORTATION BROKER 03/06/2024 Last Documented On 4 5:06PM ; [facility] [Z68.26 - Body mass index [B HI] 26.0-26.9, adult] assessment of body mass index Medical Established Patient with Colette Vuong [employer] TRA[employer]ICE 08/25/2023 Last Documented On 4 8:38AM ; [facility] Assessment of BMI Percentile = 5% to < 85% for age Z68.52 Medical Established Patient with Colette Vuong [employer] TRA[employer] 08/25/2023 Last Documented On 4 8:38AM ; [facility] Nicotine dependence Medical Established Patient with Colette Vuong [employer] TRA[employer] 08/25/2023 Last Documented On 4 8:38AM ; [facility] Oral thrush Medical Established Patient with Colette Yevgeniy [employer]STRU[employer] TRA[employer]INE SERVICE 08/25/2023 Last Documented On 4 8:38AM ; [facility] Otogenic otalgia of right ear Medical Es tablished Patient with Colette Yevgeniy [employer] TRA[employer] SERV[employer] 08/25/2023 Last Documented On 4 8:38AM ; [facility] 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 Medical Established Patient with Colette Vuong [employer] TRA[employer] 08/25/2023 Last Documented On 4 8:38AM ; [facility] Viral hepatitis C Medical Established Patient wi th Colette Vuong [facility] 08/25/2023 Last Documented On 4 8:38AM ; [facility] Visit for: therapeutic drug monitoring Medical Established Patient with Colette Vuong [employer] TRA[employer] 08/25/2023 Last Documented On 4 8:38AM ; [facility] [Z68.26 - Body mass index [B HI] 26.0-26.9, adult] assessment of body mass index Medical Established Patient with Colette Vuong [employer] TRA[employer] SERV[employer] 07/15/2023 Last Documented On 4 8:36AM ; [facility] Nicotine dependence Medical Established Patient with Colette Vuong [facility] 07/15/2023 Last Documented On 4 8:36AM ; [facility] 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 Medical Established Patient with Colette Vuong [employer] TRA[employer] 07/15/2023 Last Documented On 4 8:36AM ; [facility] Viral hepatitis C Medical Established Patient wi th Colette Vuong [employer] TRA[employer]INE SERVICE 07/15/2023 Last Documented On 4 8:36AM ; [facility] Viral hepatitis C Medical Established Patient wi th Colette Vuong [facility] 07/15/2023 Last Documented On 4 8:36AM ; [facility] Visit for: screening for depression [facility] Established Patient with Colette Vuong [employer] TRA[employer] SERVICE 07/15/2023 Last Documented On 4 8:36AM ; [facility] [Z68.25 - Body mass index [B HI] 25.0-25.9, adult] assessment of body mass index Medical Established Patient with Colette Vuong [employer] TRA[employer] SERVICE 06/03/2023 Last Documented On 4 9:49AM ; [facility] Nicotine dependence Medical Established Patient with Colette Vuong [employer] TRA[employer]INE SERVICE 06/03/2023 Last Documented On 4 9:49AM ; [facility] 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 Medical Established Patient with Colette Vuong [employer] TRA[employer]INE SERVICE 06/03/2023 Last Documented On 4 9:49AM ; [facility] Viral hepatitis C Medical Established Patient wi th Colette Vuong [employer] TRA[employer]INE SERVICE 06/03/2023 Last Documented On 4 9:49AM ; [facility] Visit for: screening for STD Medical Est ablished Patient with Colette Vuong [employer] TRA[employer]INE SERVICE 06/03/2023 Last Documented On 4 9:49AM ; [facility] [Z68.24 - Body mass index [B HI] 24.0-24.9, adult] assessment of body mass index Medical Established Patient with Colette Vuong [employer] TRA[employer]INE SERVICE 05/10/2023 Last Documented On 4 8:24AM ; [facility] Generalized anxiety disorder Medical Est ablished Patient with Colette Vuong [employer]STRUCTOR TRA[employer]INE SERVICE 05/10/2023 Last Documented On 4 8:24AM ; [facility] Nicotine dependence Medical Established Patient with Colette Vuong [employer] TRA[employer]INE SERVICE 05/10/2023 Last Documented On 4 8:24AM ; [facility] Onychomycosis of the toenails Medical Es tablished Patient with Colette Vuong [employer] TRA[employer]INE SERVICE 05/10/2023 Last Documented On 4 8:24AM ; [facility] Otogenic otalgia of right ear Medical Es tablished Patient with Colette Vuong [employer] TRA[employer]INE SERVICE 05/10/2023 Last Documented On 4 8:24AM ; [facility] 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 Medical Established Patient with Colette Vuong [employer] TRA[employer]INE SERVICE 05/10/2023 Last Documented On 4 8:24AM ; [facility] Viral hepatitis C Medical Established Patient wi th Colette Vuong [employer] TRA[employer]INE SERVICE 05/10/2023 Last Documented On 4 8:24AM ; [facility] [Z68.24 - Body mass index [B HI] 24.0-24.9, adult] assessment of body mass index Open Access - Established with Colette Vuong [employer] TRA[employer]INE SERVICE 04/26/2023 Last Documented On 4 8:20AM ; [facility] Nicotine dependence Open Access - Established wi th Colette Vuong [facility] 04/26/2023 Last Documented On 4 8:20AM ; [facility] Otogenic otalgia of right ear Open Acces s - Established with Colette Vuong [facility] 04/26/2023 Last Documented On 4 8:20AM ; [facility] 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 Open Access - Established with Colette Vuong [facility] 04/26/2023 Last Documented On 4 8:20AM ; [facility] Generalized anxiety disorder BH Established Victoria ent with Bri Barrow [facility] 04/12/2023 Last Documented On 4 7:57PM ; [facility] Nicotine dependence Established Patient with Bri Barrow [facility] 04/12/2023 Last Documented On 4 7:57PM ; [facility] [Z68.23 - Body mass index [B HI] 23.0-23.9, adult] assessment of body mass index Medical New Patient with Colette Vuong [facility] 04/12/2023 Last Documented On 4 8:31AM ; [facility] Acute otitis media of left ear Medical N ew Patient with Colette Vuong [facility] 04/12/2023 Last Documented On 4 8:31AM ; [facility] Diabetes Risk Test Score was three score 04/12/2023 Medical New Patient with Colette Vuong [facility] 04/12/2023 Last Documented On 4 8:31AM ; [facility] Nicotine dependence Medical New Patient with Prosper Vuong [facility] 04/12/2023 Last Documented On 4 8:31AM ; [facility] Screening for HIV Medical New Patient with Francois Vuong [facility] 04/12/2023 Last Documented On 4 8:31AM ; [facility] Upper respiratory infection Medical New Patient with Colette Vuong [facility] 04/12/2023 Last Documented On 4 8:31AM ; [facility] Visit for: screening for dig estive system disorders Medical New Patient with Colette Vuong [employer] TRA[employer]INE SERVICE 04/12/2023 Last Documented On 4 8:31AM ; [facility] Work Phone: 1(528) 240-314401-30-2025 Evaluation note Includes: Assessments for all patient encounters Findings Encounter Date Generalized anxiety disorder BH Established [place] ent with Bri Barrow [employer] 04/06/2024 Last Documented On 5 5:59PM ; [facility] Nicotine dependence BH Established Patient with Bri Barrow [employer] 04/06/2024 Last Documented On 5 5:59PM ; [facility] [Z68.26 - Body mass index [B HI] 26.0-26.9, adult] assessment of body mass index Medical Established Patient with Vanesa Jules [employer] 04/06/2024 Last Documented On 5 3:04PM ; [facility] Generalized anxiety disorder Medical Est ablished Patient with Vanesa Jules [employer] 04/06/2024 Last Documented On 5 3:04PM ; [facility] Methamphetamine dependence - in remission Medical Established Patient with Vanesa Jules [employer] 04/06/2024 Last Documented On 5 3:04PM ; [facility] Nicotine dependence Medical Established Patient with Vanesa Jules [employer] 04/06/2024 Last Documented On 5 3:04PM ; [facility] Opioid dependence in remission Medical E stablished Patient with Vanesa Jules [employer] 04/06/2024 Last Documented On 5 3:04PM ; [facility] 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 Medical Established Patient with Vanesa Jules [employer] 04/06/2024 Last Documented On 5 3:04PM ; [facility] Venipuncture was performed Medical Estab lished Patient with Vanesa Jules [employer] 04/06/2024 Last Documented On 5 3:04PM ; [facility] Viral hepatitis C Medical Established Patient wi th Vanesa Jules [employer] 04/06/2024 Last Documented On 5 3:04PM ; [facility] Generalized anxiety disorder BH Established [place] ent with Patrica Quarles [employer] INSPECTOR 03/06/2024 Last Documented On 4 5:21PM ; [facility] Methamphetamine dependence - in remission Established Patient with Patrica Quarles [employer] INSPECTOR 03/06/2024 Last Documented On 4 5:21PM ; [facility] Nicotine dependence Established Patient with Patrica Stone [employer] INSPECTOR 03/06/2024 Last Documented On 4 5:21PM ; [facility] RNDx tobacco abuse Established Patient with Lita Quarles [employer]OUR INSPECTOR 03/06/2024 Last Documented On 4 5:21PM ; [facility] Severe opioid dependence in sustained remission Established Patient with Patrica Quarles [employer] INSPECTOR 03/06/2024 Last Documented On 4 5:21PM ; [facility] Assessment of body mass index Medical Es tablished Patient with Vanesa Neffick [employer] 03/06/2024 Last Documented On 4 5:06PM ; [facility] Body mass index Medical Established Patient with Vanesa Rothmanderick [employer] 03/06/2024 Last Documented On 4 5:06PM ; [facility] Generalized anxiety disorder Medical Est ablished Patient with Vanesa Neffick [employer] 03/06/2024 Last Documented On 4 5:06PM ; [facility] Nicotine dependence Medical Established Patient with Vanesa Jules [employer] 03/06/2024 Last Documented On 4 5:06PM ; [facility] Onychomycosis of the toenails Medical Es tablished Patient with Vanesa Jules [employer] 03/06/2024 Last Documented On 4 5:06PM ; [facility] 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 Medical Established Patient with Vanesa Rothmanderick [employer] 03/06/2024 Last Documented On 4 5:06PM ; [facility] Viral hepatitis C Medical Established Patient wi th Vanesa Neffick [employer] 03/06/2024 Last Documented On 4 5:06PM ; [facility] [Z68.26 - Body mass index [B HI] 26.0-26.9, adult] assessment of body mass index Medical Established Patient with Colette Yevgeniy INSTRUCTOR TRAINER CANINE SERVICE 08/25/2023 Last Documented On 4 8:38AM ; [facility] Assessment of BMI Percentile = 5% to < 85% for age Z68.52 Medical Established Patient with Colette Vuong [employer]STRUCTOR TRAINER CANINE SERVICE 08/25/2023 Last Documented On 4 8:38AM ; [facility] Nicotine dependence Medical Established Patient with Colettekeo Vuong INSTRUCTOR TRAINER CANINE SERVICE 08/25/2023 Last Documented On 4 8:38AM ; [facility] Oral thrush Medical Established Patient with Colettekeo Vuong [employer]STRUCTOR TRAINER CANINE SERVICE 08/25/2023 Last Documented On 4 8:38AM ; [facility] Otogenic otalgia of right ear Medical Es tablished Patient with Colette Vuong [employer]STRUCTOR TRAINER CANINE SERVICE 08/25/2023 Last Documented On 4 8:38AM ; [facility] 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 Medical Established Patient with Colette Vuong [employer]STRUCTOR TRA[employer] CANINE SERVICE 08/25/2023 Last Documented On 4 8:38AM ; [facility] Viral hepatitis C Medical Established Patient wi th Colette Vuong [facility] 08/25/2023 Last Documented On 4 8:38AM ; [facility] Visit for: therapeutic drug monitoring Medical Established Patient with Colette Vuong [employer]CTOR TRA[employer] CANINE SERVICE 08/25/2023 Last Documented On 4 8:38AM ; [facility] [Z68.26 - Body mass index [B HI] 26.0-26.9, adult] assessment of body mass index Medical Established Patient with Colette Vuong [employer]STRUCTOR TRA[employer]ER CANINE SERVICE 07/15/2023 Last Documented On 4 8:36AM ; [facility] Nicotine dependence Medical Established Patient with Colette Vuong INSTRUCTOR TRAINER CANINE SERVICE 07/15/2023 Last Documented On 4 8:36AM ; [facility] 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 Medical Established Patient with Colette Vuong INSTRUCTOR TRAINER CANINE SERVICE 07/15/2023 Last Documented On 4 8:36AM ; [facility] Viral hepatitis C Medical Established Patient wi th Colette Vuong INSTRUCTOR TRAINER CANINE SERVICE 07/15/2023 Last Documented On 4 8:36AM ; [facility] Viral hepatitis C Medical Established Patient wi th Colette Vuong INSTRUCTOR TRAINER CANINE SERVICE 07/15/2023 Last Documented On 4 8:36AM ; [facility] Visit for: screening for depression Medi susanne Established Patient with Colette Vuong INSTRUCTOR TRAINER CANINE SERVICE 07/15/2023 Last Documented On 4 8:36AM ; [facility] [Z68.25 - Body mass index [B HI] 25.0-25.9, adult] assessment of body mass index Medical Established Patient with Colette Vuong INSTRUCTOR TRAINER CANINE SERVICE 06/03/2023 Last Documented On 4 9:49AM ; [facility] Nicotine dependence Medical Established Patient with Colette Yevgeniy INSTRUCTOR TRAINER CANINE SERVICE 06/03/2023 Last Documented On 4 9:49AM ; [facility] 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 Medical Established Patient with Colette Vuong INSTRUCTOR TRAINER CANINE SERVICE 06/03/2023 Last Documented On 4 9:49AM ; [facility] Viral hepatitis C Medical Established Patient wi th Colette Vuong INSTRUCTOR TRAINER CANINE SERVICE 06/03/2023 Last Documented On 4 9:49AM ; [facility] Visit for: screening for STD Medical Est ablished Patient with Colette Vuong INSTRUCTOR TRAINER CANINE SERVICE 06/03/2023 Last Documented On 4 9:49AM ; [facility] [Z68.24 - Body mass index [B HI] 24.0-24.9, adult] assessment of body mass index Medical Established Patient with Colette Vuong INSTRUCTOR TRAINER CANINE SERVICE 05/10/2023 Last Documented On 4 8:24AM ; [facility] Generalized anxiety disorder Medical Est ablished Patient with Colette Vuong INSTRUCTOR TRAINER CANINE SERVICE 05/10/2023 Last Documented On 4 8:24AM ; [facility] Nicotine dependence Medical Established Patient with Colette Vuong INSTRUCTOR TRAINER CANINE SERVICE 05/10/2023 Last Documented On 4 8:24AM ; [facility] Onychomycosis of the toenails Medical Es tablished Patient with Colette Vuong INSTRUCTOR TRAINER CANINE SERVICE 05/10/2023 Last Documented On 4 8:24AM ; [facility] Otogenic otalgia of right ear Medical Es tablished Patient with Colettekeo Vuong INSTRUCTOR TRAINER CANINE SERVICE 05/10/2023 Last Documented On 4 8:24AM ; [facility] 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 Medical Established Patient with Colette Vuong INSTRUCTOR TRAINER CANINE SERVICE 05/10/2023 Last Documented On 4 8:24AM ; [facility] Viral hepatitis C Medical Established Patient wi th Colette Vuong INSTRUCTOR TRAINER CANINE SERVICE 05/10/2023 Last Documented On 4 8:24AM ; [facility] [Z68.24 - Body mass index [B HI] 24.0-24.9, adult] assessment of body mass index Open Access - Established with Colette Yevgeniy [facility] 04/26/2023 Last Documented On 4 8:20AM ; [facility] Nicotine dependence Open Access - Established [facility] Colette Vuong [facility] 04/26/2023 Last Documented On 4 8:20AM ; [facility] Otogenic otalgia of right ear Open Acces s - Established with Colette Yevgeniy [facility] 04/26/2023 Last Documented On 4 8:20AM ; [facility] 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 Open Access - Established with Colette Vuong [facility] 04/26/2023 Last Documented On 4 8:20AM ; [facility] Generalized anxiety disorder BH Established [place] ent with Bri Barrow [facility] 04/12/2023 Last Documented On 4 7:57PM ; [facility] Nicotine dependence Established Patient with Bri Barrow [employer] 04/12/2023 Last Documented On 4 7:57PM ; [facility] [Z68.23 - Body mass index [B HI] 23.0-23.9, adult] assessment of body mass index Medical New Patient with Colette Vuong [employer] TRA[employer]INE SERVICE 04/12/2023 Last Documented On 4 8:31AM ; [facility] Acute otitis media of left ear Medical N ew Patient with Colette Yevgeniy INSTRUCTOR TRAINER CANINE SERVICE 04/12/2023 Last Documented On 4 8:31AM ; [facility] Diabetes Risk Test Score was three score 04/12/2023 Medical New Patient with Colette Yevgeniy [employer]STRUCTOR TRA[employer]ER CANINE SERVICE 04/12/2023 Last Documented On 4 8:31AM ; [facility] Nicotine dependence Medical New Patient with Prosper Vuogn [facility] 04/12/2023 Last Documented On 4 8:31AM ; [facility] Screening for HIV Medical New Patient with Francois Vuong [employer]CTOR TRA[employer]INE SERVICE 04/12/2023 Last Documented On 4 8:31AM ; [facility] Upper respiratory infection Medical New Patient with Colette Vuong [employer] TRA[employer]INE SERVICE 04/12/2023 Last Documented On 4 8:31AM ; [facility] Visit for: screening for dig estive system disorders Medical New Patient with Colette Vuong [facility] 04/12/2023 Last Documented On 4 8:31AM ; [facility] Work Phone: 1(174) 576-648101-30-2025 Evaluation note Includes: Assessments for all patient encounters Findings Encounter Date Generalized anxiety disorder Established [place] ent with Bri Barrow [facility] 04/06/2024 Last Documented On 5 5:59PM ; [facility] Nicotine dependence BH Established Patient with Bri Barrow [employer] 04/06/2024 Last Documented On 5 5:59PM ; [facility] [Z68.26 - Body mass index [B HI] 26.0-26.9, adult] assessment of body mass index Medical Established Patient with Vanesa Jules [employer]SP[employer]ER 04/06/2024 Last Documented On 5 3:04PM ; [facility] Generalized anxiety disorder Medical Est ablished Patient with Vanesa Jules [employer] 04/06/2024 Last Documented On 5 3:04PM ; [facility] Methamphetamine dependence - in remission Medical Established Patient with Vanesa Jules [employer]SP[employer] 04/06/2024 Last Documented On 5 3:04PM ; [facility] Nicotine dependence Medical Established Patient with Vanesa Jules [employer]SP[employer] 04/06/2024 Last Documented On 5 3:04PM ; [facility] Opioid dependence in remission Medical E stablished Patient with Vanesa Jules [employer]SP[employer] 04/06/2024 Last Documented On 5 3:04PM ; [facility] 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 Medical Established Patient with Vanesa Jules [employer] 04/06/2024 Last Documented On 5 3:04PM ; [facility] Venipuncture was performed Medical Estab lished Patient with Vanesa Neffick [employer] 04/06/2024 Last Documented On 5 3:04PM ; [facility] Viral hepatitis C Medical Established Patient wi th Vanesa Crouch [employer] 04/06/2024 Last Documented On 5 3:04PM ; [facility] Generalized anxiety disorder Established [place] ent with Patrica Stone FLOUR INSPECTOR 03/06/2024 Last Documented On 4 5:21PM ; [facility] Methamphetamine dependence - in remission Established Patient with Patrica Stone [employer] INSPECTOR 03/06/2024 Last Documented On 4 5:21PM ; [facility] Nicotine dependence Established Patient with Patrica Stone [employer] INSPECTOR 03/06/2024 Last Documented On 4 5:21PM ; [facility] RNDx tobacco abuse Established Patient with M virginia Quarles [employer] INSPECTOR 03/06/2024 Last Documented On 4 5:21PM ; [facility] Severe opioid dependence in sustained remission Established Patient with Patrica Stone [employer] INSPECTOR 03/06/2024 Last Documented On 4 5:21PM ; [facility] Assessment of body mass index Medical Es tablished Patient with Vanesa Neffick [employer] 03/06/2024 Last Documented On 4 5:06PM ; [facility] Body mass index Medical Established Patient with Vanesa Rothmanderick [employer] 03/06/2024 Last Documented On 4 5:06PM ; [facility] Generalized anxiety disorder Medical Est ablished Patient with Vanesa Jules [employer] 03/06/2024 Last Documented On 4 5:06PM ; [facility] Nicotine dependence Medical Established Patient with Vanesa Jules [employer] 03/06/2024 Last Documented On 4 5:06PM ; [facility] Onychomycosis of the toenails Medical Es tablished Patient with Vanesa Jules [employer] 03/06/2024 Last Documented On 4 5:06PM ; [facility] 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 Medical Established Patient with Vanesa Crouch [facility] 03/06/2024 Last Documented On 4 5:06PM ; [facility] Viral hepatitis C Medical Established Patient wi th Vanesa Crouch [facility] 03/06/2024 Last Documented On 4 5:06PM ; [facility] [Z68.26 - Body mass index [B HI] 26.0-26.9, adult] assessment of body mass index Medical Established Patient with Colette Vuong [facility] 08/25/2023 Last Documented On 4 8:38AM ; [facility] Assessment of BMI Percentile = 5% to < 85% for age Z68.52 Medical Established Patient with Colette Vuong [facility] 08/25/2023 Last Documented On 4 8:38AM ; [facility] Nicotine dependence Medical Established Patient with Colette Vuong [facility] 08/25/2023 Last Documented On 4 8:38AM ; [facility] Oral thrush Medical Established Patient with Colette Vuong [facility] 08/25/2023 Last Documented On 4 8:38AM ; [facility] Otogenic otalgia of right ear Medical Es tablished Patient with Colette Vuong [facility] 08/25/2023 Last Documented On 4 8:38AM ; [facility] 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 Medical Established Patient with Colette Vuong [facility] 08/25/2023 Last Documented On 4 8:38AM ; [facility] Viral hepatitis C Medical Established Patient wi th Colette Vuong [facility] 08/25/2023 Last Documented On 4 8:38AM ; [facility] Visit for: therapeutic drug monitoring Medical Established Patient with Colette Vuong [employer] TRA[employer] 08/25/2023 Last Documented On 4 8:38AM ; [facility] [Z68.26 - Body mass index [B HI] 26.0-26.9, adult] assessment of body mass index Medical Established Patient with Colette Vuong [employer] SERV[employer] 07/15/2023 Last Documented On 4 8:36AM ; [facility] Nicotine dependence Medical Established Patient with Colette Vuong [employer] TRA[employer]INE SERVICE 07/15/2023 Last Documented On 4 8:36AM ; [facility] 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 Medical Established Patient with Colette Vuong [employer]STRU[employer] TRA[employer] CANINE SERVICE 07/15/2023 Last Documented On 4 8:36AM ; [facility] Viral hepatitis C Medical Established Patient wi th Colette Vuong [employer]STRU[employer] TRA[employer] CANINE SERVICE 07/15/2023 Last Documented On 4 8:36AM ; [facility] Viral hepatitis C Medical Established Patient wi th Colette Vuong [employer]STRUCTOR TRA[employer] CANINE SERVICE 07/15/2023 Last Documented On 4 8:36AM ; [facility] Visit for: screening for depression [facility] Established Patient with Colette Vuong [employer]STRUCTOR TRAINER CANINE SERVICE 07/15/2023 Last Documented On 4 8:36AM ; [facility] [Z68.25 - Body mass index [B HI] 25.0-25.9, adult] assessment of body mass index Medical Established Patient with Colette Vuong [employer]STRUCTOR TRA[employer] CANINE SERVICE 06/03/2023 Last Documented On 4 9:49AM ; [facility] Nicotine dependence Medical Established Patient with Colette Vuong [employer]STRUCTOR TRA[employer] CANINE SERVICE 06/03/2023 Last Documented On 4 9:49AM ; [facility] 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 Medical Established Patient with Colette Vuong INSTRUCTOR TRAIN[employer] CANINE SERVICE 06/03/2023 Last Documented On 4 9:49AM ; [facility] Viral hepatitis C Medical Established Patient wi th Colette Vuong [facility] 06/03/2023 Last Documented On 4 9:49AM ; [facility] Visit for: screening for STD Medical Est ablished Patient with Colette Vuong INSTRUCTOR TRAINER CANINE SERVICE 06/03/2023 Last Documented On 4 9:49AM ; [facility] [Z68.24 - Body mass index [B HI] 24.0-24.9, adult] assessment of body mass index Medical Established Patient with Colette Vuong [employer]STRUCTOR TRAIN[employer] CANINE SERVICE 05/10/2023 Last Documented On 4 8:24AM ; [facility] Generalized anxiety disorder Medical Est ablished Patient with Colette Vuong [employer]STRUCTOR TRA[employer] CANINE SERVICE 05/10/2023 Last Documented On 4 8:24AM ; [facility] Nicotine dependence Medical Established Patient with Colette Vuong [employer]STRUCTOR TRA[employer] CANINE SERVICE 05/10/2023 Last Documented On 4 8:24AM ; [facility] Onychomycosis of the toenails Medical Es tablished Patient with Colette Vuong INSTRUCTOR TRA[employer] CANINE SERVICE 05/10/2023 Last Documented On 4 8:24AM ; [facility] Otogenic otalgia of right ear Medical Es tablished Patient with Colette Vuong [employer]STRUCTOR TRAIN[employer] CANINE SERVICE 05/10/2023 Last Documented On 4 8:24AM ; [facility] 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 Medical Established Patient with Colette Vuong [employer]STRUCTOR TRA[employer] CANINE SERVICE 05/10/2023 Last Documented On 4 8:24AM ; [facility] Viral hepatitis C Medical Established Patient wi th Colette Vuong [employer]STRUCTOR TRA[employer] CANINE SERVICE 05/10/2023 Last Documented On 4 8:24AM ; [facility] [Z68.24 - Body mass index [B HI] 24.0-24.9, adult] assessment of body mass index Open Access - Established with Colette Vuong [facility] 04/26/2023 Last Documented On 4 8:20AM ; [facility] Nicotine dependence Open Access - Established wi Colette Vuong [facility] 04/26/2023 Last Documented On 4 8:20AM ; [facility] Otogenic otalgia of right ear Open Acces s - Established with Colette Vuong [facility] 04/26/2023 Last Documented On 4 8:20AM ; [facility] 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 Open Access - Established with Colette Yevgeniy INSTRUCTOR TRAINER CANINE SERVICE 04/26/2023 Last Documented On 4 8:20AM ; [facility] Generalized anxiety disorder BH Established Victoria ent with Bri Barrow [employer] 04/12/2023 Last Documented On 4 7:57PM ; [facility] Nicotine dependence BH Established Patient with Bri Barrow [employer] 04/12/2023 Last Documented On 4 7:57PM ; [facility] [Z68.23 - Body mass index [B HI] 23.0-23.9, adult] assessment of body mass index Medical New Patient with Colette Vuong [employer]STRUCTOR TRA[employer]ER CANINE SERVICE 04/12/2023 Last Documented On 4 8:31AM ; [facility] Acute otitis media of left ear Medical N ew Patient with Colette Vuong [employer]STRUCTOR TRA[employer] CANINE SERVICE 04/12/2023 Last Documented On 4 8:31AM ; [facility] Diabetes Risk Test Score was three score 04/12/2023 Medical New Patient with Colette Vuong [employer] TRA[employer] CANINE SERVICE 04/12/2023 Last Documented On 4 8:31AM ; [facility] Nicotine dependence Medical New Patient with Prosper Vuong INSTRUCTOR TRAINER CANINE SERVICE 04/12/2023 Last Documented On 4 8:31AM ; [facility] Screening for HIV Medical New Patient with Francois Vuong INSTRUCTOR TRA[employer] CANINE SERVICE 04/12/2023 Last Documented On 4 8:31AM ; [facility] Upper respiratory infection Medical New Patient with Colette Vuong [employer]STRUCTOR TRA[employer] CANINE SERVICE 04/12/2023 Last Documented On 4 8:31AM ; [facility] Visit for: screening for dig estive system disorders Medical New Patient with Colette Vuong INSTRUCTOR TRAIN[employer] CANINE SERVICE 04/12/2023 Last Documented On 4 8:31AM ; [facility] Work Phone: 1(996) 612-792701-30-2025 Progress note* Progress note Date Encounter Last Documented by 04/06/2024 Medical Established Patient Last documented on 04/06/2024; 4:09 PM, Vanesa RILEY; [facility] Active Problems & Conditions - B35.1 - [...] lab tests History of Present Illness Raheem Cody is a 49 year old male. 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 - Assess Tobacco Use satisfied 04/06/2024. - Follow Up Plan BMI Management satisfied 04/06/2024. [facility]01-30-2025 Progress note* Progress note Date Encounter Last Documented by 04/06/2024 Medical Established Patient Last documented on 04/07/2024; 3:04 PM, Vanesa RILEY; [facility] Active Problems & Conditions - B35.1 - [...] lab tests History of Present Illness Raheem Cody is a 49 year old male. 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 - Assess Tobacco Use satisfied 04/06/2024. - Follow Up Plan BMI Management satisfied 04/06/2024. [facility]01-30-2025 Progress note* Progress note Date Encounter Last Documented by 04/06/2024 Established Patient Last docu mented on 04/07/2024; 5:58 PM, Bri Barrow [facility]; [facility] Active Problems & Conditions - B35.1 [...] Complaint is:: 1 month follow up. Subjective [facility] met with patient to follow up on anxiety. Patient reports that he sees his primary care doctor for his anxiety. He states that he is here to be a part of the program for gabapentin. Patient feels that he is not getting the help that he needs from the [facility] for his TMJ. History of Present Illness Raheem Cody is a 49 year old male. - [...] medication. Collaborated with patient and provider: Counseling/Education *[facility] offered active and supportive listening, normalized emotions and feelings, and processed current stressors. Plan *P to follow-up with patient at next visit as scheduled. *Patient to follow up as needed/scheduled. Care Team - Colette Vuong CNP Health Reminders - Assess Tobacco Use satisfied 04/07/2024. [facility]01-30-2025 Progress note* Progress note Date Encounter Last Documented by 04/06/2024 Established Patient Last docu mented on 04/07/2024; 5:59 PM, Bri WARE; [facility] Active Problems & Conditions - B35.1 - [...] Complaint is:: 1 month follow up. Subjective [facility] met with patient to follow up on anxiety. Patient reports that he sees his primary care doctor for his anxiety. He states that he is here to be a part of the program for gabapentin. Patient feels that he is not getting the help that he needs from the [facility] for his TMJ. History of Present Illness Raheem Cody is a 49 year old male. - [...] medication. Collaborated with patient and provider: Counseling/Education *P offered active and supportive listening, normalized emotions and feelings, and processed current stressors. Plan *[facility] to follow-up with patient at next visit as scheduled. *Patient to follow up as needed/scheduled. Care Team - Colette Vuong CNP Health Reminders - Assess Tobacco Use satisfied 04/07/2024. - SBIRT satisfied 04/07/2024. User Defined 1 She has not had 4 or more drinks in a day within the past year., no misuse of prescription only drugs, and not illicit. [facility]01-30-2025 Progress note* Progress note Date Encounter Last Documented by 04/06/2024 Chart Update Last documented on 04/17/2024; 11:23 AM, Colette Vuong INSTRUCTOR TRAINER CANINE SERVICE; [facility] Active Problems & Conditions - B35.1 [...] Treatment Completed 08/04/2023. Care Team - Colette Vuong CNP [facility]01-30-2025 Instructions Includes: Instructions for all patient encounters Instructions to patient Intervention and counseling on cessation of tobacco use, 3-10 minutes Last Documented On 4 4:42PM ; [facility] Education and Decision Aids were provided during visit for: Discussed nutritional needs teach healthy choices including fruits and vegetables Last Documented On 5 2:16PM ; [facility] Patient education about a pr oper diet Last Documented On 5 2:16PM ; [facility] Discussed concerns about exe rcise : promote physical activity Last Documented On 5 2:16PM ; [facility] Discussed nutritional needs teach healthy choices including fruits and vegetables Last Documented On 4 4:10PM ; [facility] Patient education about a pr oper diet Last Documented On 4 4:10PM ; [facility] Discussed concerns about exe rcise : promote physical activity Last Documented On 4 4:10PM ; [facility] Not requesting contraception Last Documented On 4 4:10PM ; [facility] BHP and [employer] MACHINE LOADER discussed patient s overall functioning, completed his BH screenings, discuss his mood, recovery, and medications today. ~[facility] noted patient is in signifcant amounts of pain that's increasing his cravings to use and SI. ~[facility] assessed risk for safety and noted patient does have a safety plan/relapse plan with his counselor and access to crisis contacts if he were to need them in the future. ~[facility] offered active and supportive listening, normalized emotions and feelings related to his pain Last Documented On 4 5:20PM ; [facility] Discussed nutritional needs teach healthy choices including fruits and vegetables Last Documented On 4 1:16PM ; [facility] Patient education about a pr oper diet Last Documented On 4 1:16PM ; [facility] Discussed concerns about exe rcise : promote physical activity Last Documented On 4 1:16PM ; [facility] Discussed nutritional needs teach healthy choices including fruits and vegetables Last Documented On 4 1:19PM ; [facility] Patient education about a pr oper diet Last Documented On 4 1:19PM ; [facility] Discussed concerns about exe rcise : promote physical activity Last Documented On 4 1:19PM ; [facility] Discussed nutritional needs teach healthy choices including fruits and vegetables Last Documented On 4 1:14PM ; [facility] Patient education about a pr oper diet Last Documented On 4 1:14PM ; [facility] Discussed concerns about exe rcise : promote physical activity Last Documented On 4 1:14PM ; [facility] Discussed nutritional needs teach healthy choices including fruits and vegetables Last Documented On 4 1:17PM ; [facility] Patient education about a pr oper diet Last Documented On 4 1:17PM ; [facility] Discussed concerns about exe rcise : promote physical activity Last Documented On 4 1:17PM ; [facility] Discussed concerns about uns afe sexual practices Last Documented On 4 1:29PM ; [facility] Discussed concerns about tob acco use Last Documented On 4 1:29PM ; [facility] Discussed concerns about alc ohol use Last Documented On 4 1:29PM ; [facility] Discussed concerns about ill icit drug use Last Documented On 4 1:29PM ; [facility] Patient has agreed to visits every 4 weeks Last Documented On 4 1:29PM ; [facility] Patient aware not to share n eedles, razors, toothbrushes, or nail clippers Last Documented On 4 1:29PM ; [facility] Counseled on medication and herbal product interactions Last Documented On 4 1:29PM ; [facility] Patient is treatment naive Last Documented On 4 1:29PM ; [facility] Patient has an estimated lif e expectancy of 12 months or greater. Last Documented On 4 1:29PM ; [facility] Patient counseled on how to take Hepatitis C Medications Last Documented On 4 1:29PM ; [facility] Patient agreed to labs (CBC, CMP, HCV) every 4 weeks Last Documented On 4 1:29PM ; [facility] Discussed nutritional needs teach healthy choices including fruits and vegetables Last Documented On 4 2:43PM ; [facility] Patient education about a pr oper diet Last Documented On 4 2:43PM ; [facility] Discussed concerns about exe rcise : promote physical activity Last Documented On 4 2:43PM ; [facility] *[facility] offered active and supp ortive listening, normalized emotions and feelings, and processed ~current stressors. ~*Reviewed relapse prevention skills and positive support activities Last Documented On 4 7:56PM ; [facility] Discussed nutritional needs teach healthy choices including fruits and vegetables Last Documented On 4 1:21PM ; [facility] Patient education about a pr oper diet Last Documented On 4 1:21PM ; [facility] Discussed concerns about exe rcise : promote physical activity Last Documented On 4 1:21PM ; [facility] Patient has agreed to visits every 4 weeks Last Documented On 4 1:59PM ; [facility] Patient aware not to share n eedles, razors, toothbrushes, or nail clippers Last Documented On 4 1:59PM ; [facility] Counseled on medication and herbal product interactions Last Documented On 4 1:59PM ; [facility] Patient is treatment naive Last Documented On 4 1:59PM ; [facility] Patient has an estimated lif e expectancy of 12 months or greater. Last Documented On 4 1:59PM ; [facility] Patient counseled on how to take Hepatitis C Medications Last Documented On 4 1:59PM ; [facility] Patient agreed to labs (CBC, CMP, HCV) every 4 weeks Last Documented On 4 1:59PM ; [facility] Work Phone: 1(776) 308-372201-29-2025 Miscellaneous Notes* Telephone Encounter - Theresa Slaughter CMA - 04/05/2024 10:13 AM EST Refill request, their system mistakenly deleted the script and they can't take verbal so it needs to be resent. [facility] Telephone encounter Note* Telephone Encounter - Theresa Slaughter CMA - 04/05/2024 10:13 AM EST Refill request, their system mistakenly deleted the script and they can't take verbal so it needs to be resent. [facility] [employer] [id number] Miscellaneous Notes* Telephone Encounter - Theresa Slaughter CMA - 04/04/2024 8:05 AM EST Refill request [facility] Telephone encounter Note* Telephone Encounter - Theresa Slaughter CMA - 04/04/2024 8:05 AM EST Refill request [facility] [employer] [id number] Telephone encounter Note* Telephone Encounter - Lyn [...] ER. Lyn Shipman PA-C [facility]ology (ENT) [facility]01-27-2025 Miscellaneous Notes* Telephone Encounter - [...] Dr Lebron on 04/11/2024 [facility] in [facility] Telephone encounter Note * Telephone [...] meantime. Pt sees Dr Lebron on 04/11/2024 [facility]01-27-2025 Miscellaneous Notes* Telephone Encounter - Theresa Slaughter CMA - 04/03/2024 10:31 AM EST Refill request [facility] Telephone encounter Note* Telephone Encounter - Theresa Slaughter CMA - 04/03/2024 10:31 AM EST [facility]01-22-20[facility] Note* Addendum Note - Lewis Mishra - 03/29/2024 6:34 PM ESTAddended by: LEWIS MISHRA on: 03/29/2024 06:34 PM Modules accepted: Orders [facility]01-22-2025 Miscellaneous Notes* Addendum Note - Lewis Mishra - 03/29/2024 6:34 PM ESTAddended by: LEWIS MISHRA on: 03/29/2024 06:34 PM Modules accepted: Orders * Addendum Note - Lewis Mishra - 03/29/2024 4:19 PM ESTAddended by: LEWIS MISHRA on: 03/29/2024 04:19 PM Modules accepted: Orders documented in [facility]Fisher[facility] Note* Addendum Note - Lewis Mishra - 03/29/2024 4:19 PM ESTAddended by: LEWIS MISHRA on: 03/29/2024 04:19 PM Modules accepted: Orders [facility]01-22-2025 NoteHNO ID: [id number] Author: LYN SHIPMAN PA-C Service: ? Author Type: Physician Educational Psychologist Type: Progress Notes Filed: 03/29/2024 14:52 Note Text: [facility] [place] FOLLOW-UP CLINIC NOTE CC: Mr. Cody is a 49 year old male who comes in for follow up. 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 (more content not included)...[facility]01-22-2025 History of Present illness Narrative* Lyn Shipman PA-C - 03/29/2024 11:49 AM EST Images from the original note were not included. [facility] [place] FOLLOW-UP [facility] NOTE CC: Mr. 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 Yard Clerk (topogram) images: No significant findings. MRI Brain [...] patient. OUTSIDE RECORDS: Reviewed ENT records from [facility] Dr. Emery- Sarahi , ED records from [facility] PROCEDURE: Diagnostic Flexible Laryngoscopy Indication: Dysphagia, throat swelling, hyperactive gag reflex Consent: Risks, benefits, alternatives, and expectations were explained; patient declines procedure. Lyn Shipman PA-C Comprehensive ENT I spent a total of 75 minutes on the date of the service which included preparing to see the patient, [id number] patient care, completing clinical documentation, obtaining and/or reviewing separately obtained history, performing a medically appropriate examination, counseling and educating the pat ient/family/caregiver, and ordering medications, tests, or procedures. documented in this encounterFisher[facility]01-[facility]-2025 NoteHNO ID: [id number] Author: AZEB HOWELL RT(R) Service: ? Author Type: Technologist Type: Procedures [...] PATIENT PRESENTS WITH AN IMPLANTABLE OR ATTACHED COMMERCIAL LOAN COLLECTION OFFICER: No ALLERGIES: Reviewed and unchanged CONTRAST ALLERGY: [...] CT; Exam(s) Completed: CTA Neck SIGNATURE: RT Celestina(R) PATIENT NAME: Raheem Crowley Cody DATE: March 29, 2024 TIME: 9:33 [facility]01-22-2025 Procedure note* Azeb Howell RT(R) - 03/29/2024 [...] PATIENT PRESENTS WITH AN IMPLANTABLE OR ATTACHED COMMERCIAL LOAN COLLECTION OFFICER: No ALLERGIES: Reviewed and unchanged CONTRAST ALLERGY: [...] Neck SIGNATURE: RT Celestina(Buck) PATIENT NAME: Raheem Cody DATE: March 29, 2024 TIME: 9:33 AM [facility]01-22-2025 Procedure note* Azeb Howell RT(R) [...] PATIENT PRESENTS WITH AN IMPLANTABLE OR ATTACHED COMMERCIAL LOAN COLLECTION OFFICER: No ALLERGIES: Reviewed and unchanged CONTRAST ALLERGY: [...] CT; Exam(s) Completed: CTA Neck SIGNATURE: RT Celestina(R) PATIENT NAME: Raheem Cody DATE: March 29, 2024 TIME: 9:33 AM documented in this encounterFisher[facility]01-[facility]-2025 Miscellaneous Notes* Telephone Encounter - Theresa Slaughter CMA - 03/20/2024 10:26 AM EST Patient stopped in and said the medication he was on was Nystatin oral suspension and in comes in acup. This is what he wants you to prescribe for him. [facility]Way[facility] Telephone encounter Note* Telephone Encounter - Theresa Slaughter CMA - 03/20/2024 10:26 AM EST Patient stopped in and said the medication he was on was Nystatin oral suspension and in comes in acup. This is what he wants you to prescribe for him. [facility] [employer] [facility] [employer] [id number] NoteHNO ID: [id number] Author: KAY SIDDIQI PA-C Service: ? Author Type: Physician Educational Psychologist Type: Progress Notes Filed: 03/17/2024 11:44 Note Text: SPINE SURGERY OUTPATIENT CONSULT This is a virtual visit using [employer] Zoom Video Visit. It required patient-provider interaction for the medical decision making as documented below. I have communicated my name and active licensure. The patient's identity and physical location were verified at the time of this visit. Either the patient or their legal service liaison representative has been informed of the risks and benefits of -- and alternatives to -- treatment through a remote evaluation and consents to proceed with the evaluation remotely. SERVICE DATE: 03/17/2024 PCP: No primary care provider on file. REFERRING PROVIDER: Kory Kirkland [facility] [id number] Consult requested for an opinion regarding the evaluation and treatment of dysphagia. My final impression and recommendations will be communicated back to the requesting physician by way of the shared medical record or letter via US mail. SUBJECTIVE Raheem Cody is a 49 year old male CHIEF [...] Off work 1 month (more content not included)...[facility] 03-17-2024 History of Present illness Narrative* Kay Siddiqi PA-C - 03/17/2024 11:02 AM EST SPINE SURGERY OUTPATIENT CONSULT This is a virtual visit using [employer] Zoom Video Visit. It required patient- provider interaction for the medical decision making as documented below. I have communicated my name and active licensure. The patient's identity and physical location wereverified at the time of this visit. Either the patient or their legal service liaison representative has been informed of the risks and benefits of -- and alternatives to -- treatment through a remote evaluation andconsents to proceed with the evaluation remotely. SERVICE DATE: 03/17/2024 PCP: No primary care provider on file. REFERRING PROVIDER: Kory Kirkland [address] [facility] [address] Consult requested for an opinion regarding the evaluation and treatment of dysphagia. My final impression and recommendations will be communicated back to the requesting physician by way of the shared medical record or letter via [place] mail. JCARLOS Cody is a 49 year old male CHIEF [...] SIGNATURE: Kay Siddiqi PA-C PATIENT NAME: Raheem Cody DATE: March 17, 2024 TIME: 11:02 AM PAGER: [facility] History of Present illness Narrative* Carrington Fritz MD - 03/16/2024 11:30 AM EST Subjective Patient ID: Raheem Cody Jr. is a 49 y.o. male. Comes [...] 5 minutes, and rinse [facility] History of Present illness Narrative* Fran-Sarahi DO Steve - 03/15/2024 12:45 PM EST Images from the original note were not included. [facility] [address] [facility] [id number] SUBJECTIVE: Patient ID (1975): Raheem Cody . is a 49 y.o. male presents today [...] 03/24/2024 Performed by Laurence Blankenship MD at [facility] MANDIBLE SURGERY TOOTH EXTRACTION WRIST SURGERY Family [...] Resource Strain: High Risk (03/05/2024) Received from [facility] Overall Financial Resource Strain (CARDIA) Difficulty of Paying Living Expenses: Very hard Food Insecurity: No Food Insecurity (04/13/2024) Hunger Screening Food Insecurity - Worry: Never True Food Insecurity - Inability: Never True Recent Concern: Food Insecurity - Food Insecurity Present (02/14/2024) Hunger Screening Food Insecurity - Worry: Sometimes True Food Insecurity - Inability: Sometimes True Transportation Needs: No Transportation Needs (03/05/2024) Received from [facility] PRAPARE - Transportation Lack of Transportation (Medical): No Lack of Transportation (Non-Medical): No Recent Concern: Transportation Needs - Unmet Transportation Needs (02/14/2024) PRAPARE - Transportation Lack of Transportation (Medical): No Lack of Transportation (Non-Medical): Yes Physical Activity: Insufficiently Active (03/05/2024) Received from [facility] Exercise Vital Sign Days of Exercise per Week: 3 days Minutes of Exercise per Session: 20 min Stress: Stress Concern Present (03/05/2024) Received from [facility] [place] [facility] [employer] - Occupational Stress Questionnaire Feeling of Stress : Very much Social Connections: Moderately Isolated (03/05/2024) Received from [facility] Social Connection and Isolation Panel [NHANES] Frequency of Communication with Friends and Family: Never Frequency of Social Gatherings with Friends and Family: Never Attends Confucianism Services: 1 to 4 times per year Active Member of Clubs or Organizations: No Attends Club or Organization Meetings: More than 4 times per year Marital Status: Never Interpersonal Safety: Not At Risk (03/05/2024) Received from [facility] Humiliation, Afraid, Rape, and Kick questionnaire Fear of Current or Ex-Partner: No Emotionally Abused: No Physically Abused: No Sexually Abused: No Housing Instability: High Risk (03/05/2024) Received from [facility] Housing Stability Vital Sign Unable to Pay for Housing in the Last Year: No Number of Times Moved in the Last Year: 0 Homeless in the Last Year: Yes Allergies Allergen Reactions Penicillins Anaphylaxis and Cough Anaphylaxis [facility]. Current Outpatient Medications Medication Sig [...] have been reviewed and have been negative ([facility]). - He did mention about [...] in my previous notes. Follow through with [facility] ENT appointment for second opinion. Patient has schedule appointment 03/29/2024. Scribe Statement: Scribed for and in the presence of Duran Wilson DO by Eva Jones (scribe). Eva Jones 03/15/2024 1:03 PM Provider Statement: [...] to ensure the accuracy of this automated special services director, some errors in special services director may have occurred. documented in this encounterWayne Hospital01-08-2025 Instructions* Patient Instructions* Duran Wilson DO - [...] that have reviewed and have been negative ([facility]). - the source of his [...] in my previous notes. Follow [facility] with [facility] E[facility] appointment for second opinion. Patient has schedule appointment 03/29/2024. documented in this encounterWayne Hospital12-30-[facility]24 Evaluation note Includes: Assessments for all patient encounters Findings Encounter Date Generalized anxiety disorder BH Established Victoria ent with Patrica Stone FLOUR INSPECTOR 03/06/2024 Last Documented On 4 4:40PM ; [facility] Methamphetamine dependence - in remission BH Established Patient with Patrica Stone FLOUR INSPECTOR 03/06/2024 Last Documented On 4 4:40PM ; [facility] Nicotine dependence BH Established Patient with Patrica Stone FLOUR INSPECTOR 03/06/2024 Last Documented On 4 4:40PM ; [facility] RNDx tobacco abuse BH Established Patient with M virginia Stone FLOUR INSPECTOR 03/06/2024 Last Documented On 4 4:40PM ; [facility] Severe opioid dependence in sustained remission BH Established Patient with Patrica Stone FLOUR INSPECTOR 03/06/2024 Last Documented On 4 4:40PM ; [facility] Assessment of body mass index Medical Es tablished Patient with Vanesa Jules TRANSPORTATION BROKER 03/06/2024 Last Documented On 4 5:06PM ; [facility] Body mass index Medical Established Patient with Vanesa Jules TRANSPORTATION BROKER 03/06/2024 Last Documented On 4 5:06PM ; [facility] Generalized anxiety disorder Medical Est ablished Patient with Vanesa Jules TRANSPORTATION BROKER 03/06/2024 Last Documented On 4 5:06PM ; [facility] Nicotine dependence Medical Established Patient with Vanesa Jules TRANSPORTATION BROKER 03/06/2024 Last Documented On 4 5:06PM ; [facility] Onychomycosis of the toenails Medical Es tablished Patient with Vanesa Jules TRANSPORTATION BROKER 03/06/2024 Last Documented On 4 5:06PM ; [facility] 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 Medical Established Patient with Vanesa Jules TRANSPORTATION BROKER 03/06/2024 Last Documented On 4 5:06PM ; [facility] Viral hepatitis C Medical Established Patient wi th Vanesa Rothmanderick [employer]SPORTATION BROKER 03/06/2024 Last Documented On 4 5:06PM ; [facility] [Z68.26 - Body mass index [B HI] 26.0-26.9, adult] assessment of body mass index Medical Established Patient with Colette Vuong [employer] 08/25/2023 Last Documented On 4 8:38AM ; [facility] Assessment of BMI Percentile = 5% to < 85% for age Z68.52 Medical Established Patient with Colette Yevgeniy [employer] TRA[employer] 08/25/2023 Last Documented On 4 8:38AM ; [facility] Nicotine dependence Medical Established Patient with Colette Yevgeniy [employer] TRA[employer] 08/25/2023 Last Documented On 4 8:38AM ; [facility] Oral thrush Medical Established Patient with Colette Yevgeniy [employer] TRA[employer] SERV[employer] 08/25/2023 Last Documented On 4 8:38AM ; [facility] Otogenic otalgia of right ear Medical Es tablished Patient with Colette Vuong [facility] 08/25/2023 Last Documented On 4 8:38AM ; [facility] 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 Medical Established Patient with Colette Yevgeniy [facility] 08/25/2023 Last Documented On 4 8:38AM ; [facility] Viral hepatitis C Medical Established Patient wi th Colette Vuong [facility] 08/25/2023 Last Documented On 4 8:38AM ; [facility] Visit for: therapeutic drug monitoring Medical Established Patient with Colette Vuong [employer] TRA[employer] SERVICE 08/25/2023 Last Documented On 4 8:38AM ; [facility] [Z68.26 - Body mass index [B HI] 26.0-26.9, adult] assessment of body mass index Medical Established Patient with Colette Yevgeniy [employer] TRA[employer]INE SERVICE 07/15/2023 Last Documented On 4 8:36AM ; [facility] Nicotine dependence Medical Established Patient with Colette Yevgeniy [employer] TRA[employer]INE SERVICE 07/15/2023 Last Documented On 4 8:36AM ; [facility] 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 Medical Established Patient with Colette Yevgeniy [employer] TRA[employer]INE SERVICE 07/15/2023 Last Documented On 4 8:36AM ; [facility] Viral hepatitis C Medical Established Patient wi th Colette Vuong [employer] TRA[employer] CANINE SERVICE 07/15/2023 Last Documented On 4 8:36AM ; [facility] Viral hepatitis C Medical Established Patient wi th Colette Vuong [employer] TRA[employer] CANINE SERVICE 07/15/2023 Last Documented On 4 8:36AM ; [facility] Visit for: screening for depression [facility] susanne Established Patient with Colette Vuong [employer] TRA[employer]INE SERVICE 07/15/2023 Last Documented On 4 8:36AM ; [facility] [Z68.25 - Body mass index [B HI] 25.0-25.9, adult] assessment of body mass index Medical Established Patient with Colette Vuong [facility] 06/03/2023 Last Documented On 4 9:49AM ; [facility] Nicotine dependence Medical Established Patient with Colette Vuong [facility] 06/03/2023 Last Documented On 4 9:49AM ; [facility] 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 Medical Established Patient with Colette Vuong [facility] 06/03/2023 Last Documented On 4 9:49AM ; [facility] Viral hepatitis C Medical Established Patient wi th Colette Vuong [facility] 06/03/2023 Last Documented On 4 9:49AM ; [facility] Visit for: screening for STD Medical Est ablished Patient with Colette Vuong [facility] 06/03/2023 Last Documented On 4 9:49AM ; [facility] [Z68.24 - Body mass index [B HI] 24.0-24.9, adult] assessment of body mass index Medical Established Patient with Colette Vuong [employer] TRA[employer]INE SERVICE 05/10/2023 Last Documented On 4 8:24AM ; [facility] Generalized anxiety disorder Medical Est ablished Patient with Colette Vuong [employer]STRUCTOR TRA[employer]ER CANINE SERVICE 05/10/2023 Last Documented On 4 8:24AM ; [facility] Nicotine dependence Medical Established Patient with Colette Vuong [employer] TRA[employer] CANINE SERVICE 05/10/2023 Last Documented On 4 8:24AM ; [facility] Onychomycosis of the toenails Medical Es tablished Patient with Colette Vuong [employer]STRUCTOR TRA[employer] CANINE SERVICE 05/10/2023 Last Documented On 4 8:24AM ; [facility] Otogenic otalgia of right ear Medical Es tablished Patient with Colette Vuong [employer]CTOR TRA[employer] CANINE SERVICE 05/10/2023 Last Documented On 4 8:24AM ; [facility] 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 Medical Established Patient with Colette Vuong [employer]CTOR TRA[employer] CANINE SERVICE 05/10/2023 Last Documented On 4 8:24AM ; [facility] Viral hepatitis C Medical Established Patient wi th Colette Vuong [facility] 05/10/2023 Last Documented On 4 8:24AM ; [facility] [Z68.24 - Body mass index [B HI] 24.0-24.9, adult] assessment of body mass index Open Access - Established with Colette Vuong [facility] 04/26/2023 Last Documented On 4 8:20AM ; [facility] Nicotine dependence Open Access - Established [facility] Colette Vuong [facility] 04/26/2023 Last Documented On 4 8:20AM ; [facility] Otogenic otalgia of right ear Open Acces s - Established with Colette Vuong [facility] 04/26/2023 Last Documented On 4 8:20AM ; [facility] 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 Open Access - Established with Colette Vuong [facility] 04/26/2023 Last Documented On 4 8:20AM ; [facility] Generalized anxiety disorder BH Established Victoria ent with Bri Barrow [facility] 04/12/2023 Last Documented On 4 7:57PM ; [facility] Nicotine dependence BH Established Patient with Brinatalie Barrow [employer] 04/12/2023 Last Documented On 4 7:57PM ; [facility] [Z68.23 - Body mass index [B HI] 23.0-23.9, adult] assessment of body mass index Medical New Patient with Colette Vuong [employer]CTOR TRA[employer] CANINE SERVICE 04/12/2023 Last Documented On 4 8:31AM ; [facility] Acute otitis media of left ear Medical N ew Patient with Colette Vuong [employer]STRUCTOR TRA[employer] CANINE SERVICE 04/12/2023 Last Documented On 4 8:31AM ; [facility] Diabetes Risk Test Score was three score 04/12/2023 Medical New Patient with Colette Vuong [employer]CTOR TRA[employer]INE SERVICE 04/12/2023 Last Documented On 4 8:31AM ; [facility] Nicotine dependence Medical New Patient with Prosper Vuong [employer]STRUCTOR TRA[employer] CANINE SERVICE 04/12/2023 Last Documented On 4 8:31AM ; [facility] Screening for HIV Medical New Patient with Francois Vuong [employer]CTOR TRA[employer]INE SERVICE 04/12/2023 Last Documented On 4 8:31AM ; [facility] Upper respiratory infection Medical New Patient with Colette Vuong [employer]STRUCTOR TRA[employer] CANINE SERVICE 04/12/2023 Last Documented On 4 8:31AM ; [facility] Visit for: screening for dig estive system disorders Medical New Patient with Colette Vuong [employer]CTOR TRA[employer] CANINE SERVICE 04/12/2023 Last Documented On 4 8:31AM ; [facility] Work Phone: 1(759) 852-377212-30-2024 Evaluation note Includes: Assessments for all patient encounters Findings Encounter Date Generalized anxiety disorder BH Established Victoria ent with Patrica Stone FLOUR INSPECTOR 03/06/2024 Last Documented On 4 5:21PM ; [facility] Methamphetamine dependence - in remission Established Patient with Patrica Stone FLOUR INSPECTOR 03/06/2024 Last Documented On 4 5:21PM ; [facility] Nicotine dependence Established Patient with Patrica Stone FLOUR INSPECTOR 03/06/2024 Last Documented On 4 5:21PM ; [facility] RNDx tobacco abuse BH Established Patient with M virginia Stone FLOUR INSPECTOR 03/06/2024 Last Documented On 4 5:21PM ; [facility] Severe opioid dependence in sustained remission Established Patient with Patrica Stone FLOUR INSPECTOR 03/06/2024 Last Documented On 4 5:21PM ; [facility] Assessment of body mass index Medical Es tablished Patient with Vanesa Jules TRANSPORTATION BROKER 03/06/2024 Last Documented On 4 5:06PM ; [facility] Body mass index Medical Established Patient with Vanesa Jules TRANSPORTATION BROKER 03/06/2024 Last Documented On 4 5:06PM ; [facility] Generalized anxiety disorder Medical Est ablished Patient with Vanesa Crouch TRANSPORTATION BROKER 03/06/2024 Last Documented On 4 5:06PM ; [facility] Nicotine dependence Medical Established Patient with Vanesa Crouch TRANSPORTATION BROKER 03/06/2024 Last Documented On 4 5:06PM ; [facility] Onychomycosis of the toenails Medical Es tablished Patient with Vanesa Crouch TRANSPORTATION BROKER 03/06/2024 Last Documented On 4 5:06PM ; [facility] 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 Medical Established Patient with Vanesa Crouch TRANSPORTATION BROKER 03/06/2024 Last Documented On 4 5:06PM ; [facility] Viral hepatitis C Medical Established Patient wi th Vanesa Crouch TRANSPORTATION BROKER 03/06/2024 Last Documented On 4 5:06PM ; [facility] [Z68.26 - Body mass index [B HI] 26.0-26.9, adult] assessment of body mass index Medical Established Patient with Colette Vuong [employer]STRUCTOR TRA[employer] CANINE SERVICE 08/25/2023 Last Documented On 4 8:38AM ; [facility] Assessment of BMI Percentile = 5% to < 85% for age Z68.52 Medical Established Patient with Colette Vuong [facility] 08/25/2023 Last Documented On 4 8:38AM ; [facility] Nicotine dependence Medical Established Patient with Colette Vuong [facility] 08/25/2023 Last Documented On 4 8:38AM ; [facility] Oral thrush Medical Established Patient with Colette Vuong [facility] 08/25/2023 Last Documented On 4 8:38AM ; [facility] Otogenic otalgia of right ear Medical Es tablished Patient with Colette Vuong [employer]STRUCTOR TRA[employer]INE SERVICE 08/25/2023 Last Documented On 4 8:38AM ; [facility] 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 Medical Established Patient with Colette Vuong [employer]STRUCTOR TRA[employer] CANINE SERVICE 08/25/2023 Last Documented On 4 8:38AM ; [facility] Viral hepatitis C Medical Established Patient wi th Colette Vuong [facility] 08/25/2023 Last Documented On 4 8:38AM ; [facility] Visit for: therapeutic drug monitoring Medical Established Patient with Colette Vuong [employer] TRA[employer] CANINE SERVICE 08/25/2023 Last Documented On 4 8:38AM ; [facility] [Z68.26 - Body mass index [B HI] 26.0-26.9, adult] assessment of body mass index Medical Established Patient with Colette Vuong [facility] 07/15/2023 Last Documented On 4 8:36AM ; [facility] Nicotine dependence Medical Established Patient with Colettekeo Vuong [employer]STRUCTOR TRA[employer] CANINE SERVICE 07/15/2023 Last Documented On 4 8:36AM ; [facility] 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 Medical Established Patient with Colette Vuong [facility] 07/15/2023 Last Documented On 4 8:36AM ; [facility] Viral hepatitis C Medical Established Patient wi Colette Vuong [facility] 07/15/2023 Last Documented On 4 8:36AM ; [facility] Viral hepatitis C Medical Established Patient wi Colette Vuong [facility] 07/15/2023 Last Documented On 4 8:36AM ; [facility] Visit for: screening for depression [facility] Established Patient with Colette Vuong [facility] 07/15/2023 Last Documented On 4 8:36AM ; [facility] [Z68.25 - Body mass index [B HI] 25.0-25.9, adult] assessment of body mass index Medical Established Patient with Colette Vuong [facility] 06/03/2023 Last Documented On 4 9:49AM ; [facility] Nicotine dependence Medical Established Patient with Coletet Vuong [facility] 06/03/2023 Last Documented On 4 9:49AM ; [facility] 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 Medical Established Patient with Colette Vuong [employer] TRA[employer]INE SERVICE 06/03/2023 Last Documented On 4 9:49AM ; [facility] Viral hepatitis C Medical Established Patient wi Colette Vuong [facility] 06/03/2023 Last Documented On 4 9:49AM ; [facility] Visit for: screening for STD Medical Est ablished Patient with Colette Vuong [employer]STRUCTOR TRAINER CANINE SERVICE 06/03/2023 Last Documented On 4 9:49AM ; [facility] [Z68.24 - Body mass index [B HI] 24.0-24.9, adult] assessment of body mass index Medical Established Patient with Colette Vuong [employer]STRUCTOR TRA[employer] CANINE SERVICE 05/10/2023 Last Documented On 4 8:24AM ; [facility] Generalized anxiety disorder Medical Est ablished Patient with Colette Vuong INSTRUCTOR TRAINER CANINE SERVICE 05/10/2023 Last Documented On 4 8:24AM ; [facility] Nicotine dependence Medical Established Patient with Colette Vuong INSTRUCTOR TRAINER CANINE SERVICE 05/10/2023 Last Documented On 4 8:24AM ; [facility] Onychomycosis of the toenails Medical Es tablished Patient with Colette Vuong [employer]STRUCTOR TRAINER CANINE SERVICE 05/10/2023 Last Documented On 4 8:24AM ; [facility] Otogenic otalgia of right ear Medical Es tablished Patient with Colette Vuong INSTRUCTOR TRAINER CANINE SERVICE 05/10/2023 Last Documented On 4 8:24AM ; [facility] 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 Medical Established Patient with Colette Vuong [employer]STRUCTOR TRAINER CANINE SERVICE 05/10/2023 Last Documented On 4 8:24AM ; [facility] Viral hepatitis C Medical Established Patient wi th Colette Vuong INSTRUCTOR TRAINER CANINE SERVICE 05/10/2023 Last Documented On 4 8:24AM ; [facility] [Z68.24 - Body mass index [B HI] 24.0-24.9, adult] assessment of body mass index Open Access - Established with Colette Vuong [employer]STRUCTOR TRAINER CANINE SERVICE 04/26/2023 Last Documented On 4 8:20AM ; [facility] Nicotine dependence Open Access - Established wi th Colette Vuong [employer]STRUCTOR TRAINER CANINE SERVICE 04/26/2023 Last Documented On 4 8:20AM ; [facility] Otogenic otalgia of right ear Open Acces s - Established with Colette Vuong INSTRUCTOR TRAINER CANINE SERVICE 04/26/2023 Last Documented On 4 8:20AM ; [facility] 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 Open Access - Established with Colette Vuong [employer]STRUCTOR TRA[employer]ER CANINE SERVICE 04/26/2023 Last Documented On 4 8:20AM ; [facility] Generalized anxiety disorder Established Victoria ent with Bri Barrow [employer] 04/12/2023 Last Documented On 4 7:57PM ; [facility] Nicotine dependence Established Patient with Bri Barrow [employer] 04/12/2023 Last Documented On 4 7:57PM ; [facility] [Z68.23 - Body mass index [B HI] 23.0-23.9, adult] assessment of body mass index Medical New Patient with Colette Vuong [employer] TRA[employer] CANINE SERVICE 04/12/2023 Last Documented On 4 8:31AM ; [facility] Acute otitis media of left ear Medical N ew Patient with Colette Vuong [employer]STRUCTOR TRA[employer]ER CANINE SERVICE 04/12/2023 Last Documented On 4 8:31AM ; [facility] Diabetes Risk Test Score was three score 04/12/2023 Medical New Patient with Colette Vuong [facility] 04/12/2023 Last Documented On 4 8:31AM ; [facility] Nicotine dependence Medical New Patient with Prosper Vuong [facility] 04/12/2023 Last Documented On 4 8:31AM ; [facility] Screening for HIV Medical New Patient with Francois Vuong [employer]STRUCTOR TRA[employer] CANINE SERVICE 04/12/2023 Last Documented On 4 8:31AM ; [facility] Upper respiratory infection Medical New Patient with Colette Vuong [facility] 04/12/2023 Last Documented On 4 8:31AM ; [facility] Visit for: screening for dig estive system disorders Medical New Patient with Colette Vuong [employer]STRUCTOR TRA[employer] CANINE SERVICE 04/12/2023 Last Documented On 4 8:31AM ; [facility] Work Phone: 1(310) 952-513212-30-2024 History general Narrative - Reported Includes: Medical History in patient's chart Description Last Updated No previous suicide attempt 03/06/2024 Last Documented On 4 5:21PM ; [facility] Safety Measures D[facility]ed [facility] contact information and encouraged patient to go to the nearest ER if SI occurs and mood 03/06/2024 Last Documented On 4 5:21PM ; [facility] No previous hospitalizations 07/15/2023 Last Documented On 4 8:36AM ; [facility] History of viral hepatitis C 04/12/2023 Last Documented On 4 8:31AM ; [facility] Recent immunization for flu 04/12/2023 Last Documented On 4 8:31AM ; [facility] Work Phone: 1(378) 258-467312-30-2024 History general Narrative - Reported Includes: Medical History in patient's chart Description Last Updated No previous suicide attempt 03/06/2024 Last Documented On 4 5:21PM ; [facility] Safety Measures Discussed lo susanne and national crisis contact information and encouraged patient to go to the nearest ER if SI occurs and mood 03/06/2024 Last Documented On 4 5:21PM ; [facility] No previous hospitalizations 07/15/2023 Last Documented On 4 8:36AM ; [facility] History of viral hepatitis C 04/12/2023 Last Documented On 4 8:31AM ; [facility] Recent immunization for flu 04/12/2023 Last Documented On 4 8:31AM ; [facility] Work Phone: 1(872) 830-198312-30-2024 History general Narrative - Reported Includes: Medical History in patient's chart Description Last Updated No previous suicide attempt 03/06/2024 Last Documented On 4 5:21PM ; [facility] Safety Measures Discussed lo susanne and national crisis contact information and encouraged patient to go to the nearest ER if SI occurs and mood 03/06/2024 Last Documented On 4 5:21PM ; [facility] No previous hospitalizations 07/15/2023 Last Documented On 4 8:36AM ; [facility] History of viral hepatitis C 04/12/2023 Last Documented On 4 8:31AM ; [facility] Recent immunization for flu 04/12/2023 Last Documented On 4 8:31AM ; [facility] Work Phone: 1([phone]) 309-200312-30-2024 Progress note* Progress note Date Encounter Last Documented by 03/06/2024 Medical Established Patient Last documented on 03/06/2024; 5:06 PM, Vanesa VILLALOBOSP; [facility] Active Problems & Conditions - B35.1 - [...] lab tests History of Present Illness Raheem Cody is a 49 year old male. - [...] daily, 30 days, 0 refills - Nystatin 455332 UNIT/ML Mouth/Throat Suspension swish with 5mL of [...] BP-Sitting L127/83 mmHg BP Cuff SizeRegular Pulse Rate-Aarjxkl63 bpm Respiration Rate18 per min Temp-Oral98 F Qiwkma93 in Mtxlmn255 lbs Body Mass Index27 kg/m2 Body Surface Area2 m2 Oxygen Uslsckbpgn29 % - Vitals taken 03/06/2024 04:24 pm [...] Present, PCP Not Present, OXY Not Present, KNA706 Not Present, MTD Not Present, MET Not [...] and jaw surgeon. Care Team - Colette Vuong CNP Health Reminders - Assess BMI satisfied 03/06/2024. - Assess Tobacco Use satisfied 03/06/2024. - Follow Up Plan BMI Management satisfied 03/06/2024. - Smoking & Tobacco Cessation Intervention and Counseling satisfied 03/06/2024. User Defined 1 Not planning a in the next year. [facility]12-30-2024 Progress note* Progress note Date Encounter Last Documented by 03/06/2024 Established Patient Last docu mented on 03/06/2024; 5:21 PM, Patrica KIM; [facility] Active Problems & Conditions - B35.1 - [...] and is still seeing a counselor through [facility]. Admits that if he cannot get [...] and national crisis supports. Denies any other complaints. History of Present Illness Raheem Cody is a 49 year old male. - [...] daily, 30 days, 0 refills - Nystatin 423129 UNIT/ML Mouth/Throat Suspension swish with 5mL of [...] to mental health team. - Plan - RAW STOCK MACHINE LOADER to restart Gabapentin 300mg TID for TMJ pain and patient is agreeable. and Collaborated with patient and provider: *Habit forming completed for Gabapentin. Counseling/Education - Not wishing to stop using tobacco offered Quit Line information BHP and RAW STOCK MACHINE LOADER discussed patients overall functioning, completed his screenings, discuss his mood, recovery, and medications today. P noted patient is in signifcant amounts of pain that's increasing his cravings to use and SI. P assessed risk for safety and noted patient does have a safety plan/relapse plan with his counselor and access to crisis contacts if he were to need them in the future. [facility] offered active and supportive listening, normalized emotions and feelings related to his pain. Plan - Provided Crisis contact: #035(National Hotline) & #913840(Textline) - Referral to Community Mental Health Patient to follow up as scheduled. Care Team - Colette Vuong CNP Health Reminders - Assess Tobacco Use [...] of things, or get along? Very difficult. [facility]12-30-2024 Reason for referral (narrative)* Date Encounter Description Provider Reason for Referral 03/06/24 Established Patient Patrica KIM Referral To Mental Health Team; C-SSRS: Provided Crisis contact #[phone] & Text line #539512; C-SSRS: Referral to [facility] 05/10/23 Medical Established Patient Colette Vuong KARUNA Consultation with hepatologi st or classroom monitor [facility] Work Phone: 1(521) 407-506112-30-2024 Instructions Includes: Instructions for all patient encounters Instructions to patient Intervention and counseling on cessation of tobacco use, 3-10 minutes Last Documented On 4 4:42PM ; [facility] Education and Decision Aids were provided during visit for: Discussed nutritional needs teach healthy choices including fruits and vegetables Last Documented On 4 4:10PM ; [facility] Patient education about a pr oper diet Last Documented On 4 4:10PM ; [facility] Discussed concerns about exe rcise : promote physical activity Last Documented On 4 4:10PM ; [facility] Not requesting contraception Last Documented On 4 4:10PM ; [facility] Discussed nutritional needs teach healthy choices including fruits and vegetables Last Documented On 4 1:16PM ; [facility] Patient education about a pr oper diet Last Documented On 4 1:16PM ; [facility] Discussed concerns about exe rcise : promote physical activity Last Documented On 4 1:16PM ; [facility] Discussed nutritional needs teach healthy choices including fruits and vegetables Last Documented On 4 1:19PM ; [facility] Patient education about a pr oper diet Last Documented On 4 1:19PM ; [facility] Discussed concerns about exe rcise : promote physical activity Last Documented On 4 1:19PM ; [facility] Discussed nutritional needs teach healthy choices including fruits and vegetables Last Documented On 4 1:14PM ; [facility] Patient education about a pr oper diet Last Documented On 4 1:14PM ; [facility] Discussed concerns about exe rcise : promote physical activity Last Documented On 4 1:14PM ; [facility] Discussed nutritional needs teach healthy choices including fruits and vegetables Last Documented On 4 1:17PM ; [facility] Patient education about a pr oper diet Last Documented On 4 1:17PM ; [facility] Discussed concerns about exe rcise : promote physical activity Last Documented On 4 1:17PM ; [facility] Discussed concerns about uns afe sexual practices Last Documented On 4 1:29PM ; [facility] Discussed concerns about tob acco use Last Documented On 4 1:29PM ; [facility] Discussed concerns about alc ohol use Last Documented On 4 1:29PM ; [facility] Discussed concerns about ill icit drug use Last Documented On 4 1:29PM ; [facility] Patient has agreed to visits every 4 weeks Last Documented On 4 1:29PM ; [facility] Patient aware not to share n eedles, razors, toothbrushes, or nail clippers Last Documented On 4 1:29PM ; [facility] Counseled on medication and herbal product interactions Last Documented On 4 1:29PM ; [facility] Patient is treatment naive Last Documented On 4 1:29PM ; [facility] Patient has an estimated lif e expectancy of 12 months or greater. Last Documented On 4 1:29PM ; [facility] Patient counseled on how to take Hepatitis C Medications Last Documented On 4 1:29PM ; [facility] Patient agreed to labs (CBC, CMP, HCV) every 4 weeks Last Documented On 4 1:29PM ; [facility] Discussed nutritional needs teach healthy choices including fruits and vegetables Last Documented On 4 2:43PM ; [facility] Patient education about a pr oper diet Last Documented On 4 2:43PM ; [facility] Discussed concerns about exe rcise : promote physical activity Last Documented On 4 2:43PM ; [facility] *[facility] offered active and supp ortive listening, normalized emotions and feelings, and processed ~current stressors. ~*Reviewed relapse prevention skills and positive support activities Last Documented On 4 7:56PM ; [facility] Discussed nutritional needs teach healthy choices including fruits and vegetables Last Documented On 4 1:21PM ; [facility] Patient education about a pr oper diet Last Documented On 4 1:21PM ; [facility] Discussed concerns about exe rcise : promote physical activity Last Documented On 4 1:21PM ; [facility] Patient has agreed to visits every 4 weeks Last Documented On 4 1:59PM ; [facility] Patient aware not to share n eedles, razors, toothbrushes, or nail clippers Last Documented On 4 1:59PM ; [facility] Counseled on medication and herbal product interactions Last Documented On 4 1:59PM ; [facility] Patient is treatment naive Last Documented On 4 1:59PM ; [facility] Patient has an estimated lif e expectancy of 12 months or greater. Last Documented On 4 1:59PM ; [facility] Patient counseled on how to take Hepatitis C Medications Last Documented On 4 1:59PM ; [facility] Patient agreed to labs (CBC, CMP, HCV) every 4 weeks Last Documented On 4 1:59PM ; [facility] Work Phone: 1(991) 719-653712-30-2024 Instructions Includes: Instructions for all patient encounters Instructions to patient Intervention and counseling on cessation of tobacco use, 3-10 minutes Last Documented On 4 4:42PM ; [facility] Education and Decision Aids were provided during visit for: Discussed nutritional needs teach healthy choices including fruits and vegetables Last Documented On 4 4:10PM ; [facility] Patient education about a pr oper diet Last Documented On 4 4:10PM ; [facility] Discussed concerns about exe rcise : promote physical activity Last Documented On 4 4:10PM ; [facility] Not requesting contraception Last Documented On 4 4:10PM ; [facility] BHP and RAW STOCK MACHINE LOADER discussed patient s overall functioning, completed his [...] were to need them in the future. ~[facility] offered active and supportive listening, normalized emotions and feelings related to his pain Last Documented On 4 5:20PM ; [facility] Discussed nutritional needs teach healthy choices including fruits and vegetables Last Documented On 4 1:16PM ; [facility] Patient education about a pr oper diet Last Documented On 4 1:16PM ; [facility] Discussed concerns about exe rcise : promote physical activity Last Documented On 4 1:16PM ; [facility] Discussed nutritional needs teach healthy choices including fruits and vegetables Last Documented On 4 1:19PM ; [facility] Patient education about a pr oper diet Last Documented On 4 1:19PM ; [facility] Discussed concerns about exe rcise : promote physical activity Last Documented On 4 1:19PM ; [facility] Discussed nutritional needs teach healthy choices including fruits and vegetables Last Documented On 4 1:14PM ; [facility] Patient education about a pr oper diet Last Documented On 4 1:14PM ; [facility] Discussed concerns about exe rcise : promote physical activity Last Documented On 4 1:14PM ; [facility] Discussed nutritional needs teach healthy choices including fruits and vegetables Last Documented On 4 1:17PM ; [facility] Patient education about a pr oper diet Last Documented On 4 1:17PM ; [facility] Discussed concerns about exe rcise : promote physical activity Last Documented On 4 1:17PM ; [facility] Discussed concerns about uns afe sexual practices Last Documented On 4 1:29PM ; [facility] Discussed concerns about tob acco use Last Documented On 4 1:29PM ; [facility] Discussed concerns about alc ohol use Last Documented On 4 1:29PM ; [facility] Discussed concerns about ill icit drug use Last Documented On 4 1:29PM ; [facility] Patient has agreed to visits every 4 weeks Last Documented On 4 1:29PM ; [facility] Patient aware not to share n eedles, razors, toothbrushes, or nail clippers Last Documented On 4 1:29PM ; [facility] Counseled on medication and herbal product interactions Last Documented On 4 1:29PM ; [facility] Patient is treatment naive Last Documented On 4 1:29PM ; [facility] Patient has an estimated lif e expectancy of 12 months or greater. Last Documented On 4 1:29PM ; [facility] Patient counseled on how to take Hepatitis C Medications Last Documented On 4 1:29PM ; [facility] Patient agreed to labs (CBC, CMP, HCV) every 4 weeks Last Documented On 4 1:29PM ; [facility] Discussed nutritional needs teach healthy choices including fruits and vegetables Last Documented On 4 2:43PM ; [facility] Patient education about a pr oper diet Last Documented On 4 2:43PM ; [facility] Discussed concerns about exe rcise : promote physical activity Last Documented On 4 2:43PM ; [facility] *[facility] offered active and supp ortive listening, normalized emotions and feelings, and processed ~current stressors. ~*Reviewed relapse prevention skills and positive support activities Last Documented On 4 7:56PM ; [facility] Discussed nutritional needs teach healthy choices including fruits and vegetables Last Documented On 4 1:21PM ; [facility] Patient education about a pr oper diet Last Documented On 4 1:21PM ; [facility] Discussed concerns about exe rcise : promote physical activity Last Documented On 4 1:21PM ; [facility] Patient has agreed to visits every 4 weeks Last Documented On 4 1:59PM ; [facility] Patient aware not to share n eedles, razors, toothbrushes, or nail clippers Last Documented On 4 1:59PM ; [facility] Counseled on medication and herbal product interactions Last Documented On 4 1:59PM ; [facility] Patient is treatment naive Last Documented On 4 1:59PM ; [facility] Patient has an estimated lif e expectancy of 12 months or greater. Last Documented On 4 1:59PM ; [facility] Patient counseled on how to take Hepatitis C Medications Last Documented On 4 1:59PM ; [facility] Patient agreed to labs (CBC, CMP, HCV) every 4 weeks Last Documented On 4 1:59PM ; [facility] Work Phone: 1(156) 979-263612-10-2024 History of Present illness Narrative* Carrington Fritz MD - 02/15/2024 10:00 AM EST Subjective Patient ID: Raheem Cody Jr. is a 49 y.o. male. Comes [...] does have specialty evaluation upcoming at the [facility] but not until May. In [...] be monitored carefully.Toradol can not be continued senior living for safety reasons but he might derive [...] (three) times a day. [facility] Telephone encounter Note* Telephone Encounter - Kory Kirkland APRN.KARUNA - 02/09/2024 2:41 PM EST I saw him in the past for his ear. He needs to be scheduled with the appropriate provider for this visit which is not me. I do not think this is even an ENT issue. But he can start with comprehensive. [facility] Work Phone: 1(143) 911-847012-04-2024 Miscellaneous Notes* Telephone Encounter - Kory Kirkland [...] placed to physical therapy - Consult to [facility] - Follow-up with me as needed documented in [facility] Telephone encounter Note * Telephone [...] to go to the ED. Patient refusing. [facility]12-04-2024 Telephone encounter Note* Telephone Encounter - Kory Kirkland APRN.CNP - 02/09/2024 1:33 PM EST He absolutely needs to go to the ED [facility]12-04-2024 Telephone encounter Note* Telephone Encounter [...] placed to physical therapy - [facility] - Follow-up with me as needed [facility] Work Phone: 1(666) 620-995312-03-2024 Miscellaneous Notes* Telephone Encounter - Criss M Baca - 02/08/2024 11:56 AM EST Patient called and stated Dr. Wilson had referred him to maxofacial surgery. He is needed the referral to be sent to [facility] . [email or web address]. * Telephone Encounter - Azeb Chan RN - 02/08/2024 11:56 AM EST Patient was never written a referral to Maxofacial surgery * Telephone Encounter - Criss Baca - 02/08/2024 11:56 AM EST He stated it was in a [employer] message from Dr. Wilson. I was unable to locate this * Telephone Encounter - Azeb Chan RN - 02/08/2024 11:56 AM EST There is no referral for Maxofacial surgery * Telephone Encounter - Criss Baca - 02/08/2024 11:56 AM EST Spoke with patient and informed he will need to follow up with his dentist for the referral. [facility] Telephone encounter Note* Telephone Encounter - Criss Baca - 02/08/2024 11:56 AM EST Patient called and stated Dr. Wilson had referred him to maxofacial surgery. He is needed the referral to be sent to [facility] . [email or web address]. [facility]12-03-[facility] Telephone encounter Note* Telephone Encounter - Azeb Chan RN - 02/08/2024 11:56 AM EST Patient was never written a referral to [facility]ofacial surgery [facility]12-[facility] Telephone encounter Note* Telephone Encounter - Criss Baca - 02/08/2024 11:56 AM EST He stated it was in a [employer] message from Dr. Wilson. I was unable to locate this [facility]12-03-20[facility] Telephone encounter Note* Telephone Encounter - Azeb Chan RN - 02/08/2024 11:56 AM EST There is no referral for Maxofacial surgery [facility]12-03-20[facility] Telephone encounter Note* Telephone Encounter - Criss Baca - 02/08/2024 11:56 AM EST Spoke with patient and informed he will need to follow up with his dentist for the referral. [facility]11-22-2024 NoteHNO ID: [id number] Author: TIEN HEREDIA PT Service: ? Author [...] EVALUATION PLAN OF CARE: Assessment: Raheem Crowley Cody presents with chief complaint of fascial pain [...] Goals for Episode of Care: established 01/28/24 Centre in home exercise program. 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 Author [...] treatment. Mackenzie STATON [facility] History of Present illness Narrative* Mackenzie Staton [...] Surgery January 26, 2024 documented in [facility] encounterFisher[facility]24 Miscellaneous Notes* Telephone Encounter - YUNIER Mata - 01/26/2024 9:40 AM EST Referral for [facility] oral surgery pended documented in this encounterWayne Hospital11-20-2024 Telephone encounter Note* Telephone Encounter - YUNIER Mata - 01/26/2024 9:40 AM EST Referral for [facility] oral surgery pended [facility] History of Present illness Narrative* Carrington Fritz MD - 01/20/2024 11:30 AM EST Subjective Patient ID: Raheem Cody Jr. is a 48 y.o. male. He [...] visit: Edentulous orofacial dystonia documented in this encounterAdena Pike Medical CenterAIMM Therapeutics [facility] [id number] History of Present illness Narrative* Rossana Harding APRN.INSTRUCTOR TRAINER CANINE SERVICE - 01/18/2024 9:00 AM EST Headache Center - Follow up Virtual Visit Patient's headache clinic evaluation was scheduled as a virtual visit using the following platform [email or web address] A Cody was identified by name and and consented [...] visit. Either the patient or their legal service liaison representative has been informed of the risks [...] diagnostic imaging completed. 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 Plastic Welder: PSCB Transcribe Date/Time: Jan 06 2024 4:04P [...] scheduling a follow up appointment with an RAW STOCK MACHINE LOADER or PA to discuss. Patient verbalized understanding. Telephone encounter 01/15/24: Patient calling regarding he is having worsening facial pain and feels like he is swallowing his mucus membranes? Mouth is really dry. He is unable to get to his scheduled appointment in neurology [facility] [employer]. Conferenced to [facility] quill picking machine operator, Beatriz, to speak with provider tube station attendant for Dr. Eyal Garcia in neurology. Trigeminal [...] these with the patient: yes Rossana Harding APRN.INSTRUCTOR TRAINER CANINE SERVICE HEADACHE SCORES: 12/08/2023 Headache Questions Face pain [...] in rate, volume and articulation. Short and senior living memory, cognition and general fund of knowledge [...] drug, episodic abuse (hcc) Tmj click Raheem Cody is a 48 year old year old [...] Service: Virtual Visit 30 minutes Rossana Harding APRN.[facility] Headache Section [facility] January 18, 2024 documented in this encounterFisher-[facility]11-12-2024 NoteHNO ID: [id number] Author: ROSSANA HARDING APRN.KARUNA Service: ? Author Type: Nurse Practitioner Type: Progress Notes Filed: 01/18/2024 09:23 Note Text: Headache Center - Follow up Virtual Visit Patient's headache clinic evaluation was scheduled as a virtual visit using the following platform Zoom Raheem Cody was identified by name and and consented [...] visit. Either the patient or their legal service liaison representative has been informed of the risks [...] diagnostic imaging completed. 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 Plastic Welder: JEFFREY Transcribe Date/Time: Jan 06 2024 4:04P [...] scheduling a follow up appointment with an RAW STOCK MACHINE LOADER or PA to discuss. Patient verbalized understanding. Telephone encounter 01/15/24: Patient calling regarding he is having worsening facial pain and feels like he is swallowing his mucus membranes? Mouth is really dry. He is unable to get to his scheduled appointment in neurology on Wednesday. Conferenced to [facility] quill picking machine operator, Beatriz, to speak with provider tube station attendant for Dr. Eyal Garcia in neurology. Trigeminal [...] PAST MEDICAL HISTORY Diagnosis (more content not included)...[facility]11-12-2024 Telephone encounter Note* Telephone Encounter - Idalia Naranjo LPN - 01/18/2024 8:50 AM EST Appt today 01/18/24 with Rossana Harding APRN.INSTRUCTOR TRAINER CANINE SERVICE [facility]11-12-2024 Miscellaneous Notes* Telephone Encounter - Idalia Naranjo LPN - 01/18/2024 8:50 AM EST Appt today 01/18/24 with Rossana Harding APRN.INSTRUCTOR TRAINER CANINE SERVICE documented in this encounterFisher-[facility] Center11-12-2024 Miscellaneous Notes* Telephone Encounter - [...] an appt on 01-20-24 documented in [facility]Way[facility] Telephone encounter Note* Telephone Encounter - Tesha Murphy - 01/18/2024 8:40 AM EST Patient stopped in the office and said he is just not doing well. He thinks the roof of his mouth now. He just needs to know what to do next? Please advise [facility]11-12-2024 Telephone encounter Note* Telephone Encounter - Carrington Fritz MD - 01/18/2024 8:40 AM EST I can't recall. Has he done any PT for this, and if he has, when was that? And maybe I need to check him again to design the plan for further evaluation and treatment. [facility]11-12-2024 Telephone encounter Note* Telephone Encounter - Tesha Murphy - 01/18/2024 8:40 AM EST He can't do PT because he can't open his mouth and he's dehydrated. I have set him up an appt on 01-20-24 [facility]11-09-2024 Telephone encounter Note* Telephone Encounter - Kory Alvarenga RN - 01/15/2024 3:26 PM EST Patient calling regarding he is having worsening facial pain and feels like he is swallowing his mucus membranes? Mouth is really dry. He is unable to get to his scheduled appointment in neurology [facility]. Conferenced to [facility] quill picking machine operator, Beatriz, to speak with provider tube station attendant for Dr. Eyal Garcia in neurology. GO TO THE EMERGENCY ROOM OR CALL 911 IF: * You develop any new symptoms * Your condition worsens * You are concerned or anxious about your condition for any other reason. If you have any questions, you can call Nurse nurse practitioner physician assistant back. Patient states he feels this can wait until Wednesday. [facility]11-09-2024 Miscellaneous Notes* Telephone Encounter - Kory Alvarenga RN - 01/15/2024 3:26 PM EST Patient calling regarding he is having worsening facial pain and feels like he is swallowing his mucus membranes? Mouth is really dry. He is unable to get to his scheduled appointment in neurology onWednesday. Conferenced to [facility] quill picking machine operator, Beatriz, to speak with provider tube station attendant for Dr. Eyal Garcia in neurology. GO TO THE EMERGENCY ROOM OR CALL 911 IF: * You develop any new symptoms * Your condition worsens * You are concerned or anxious about your condition for any other reason. If you have any questions, you can call Nurse nurse practitioner physician assistant back. Patient states he feels this can wait until Wednesday. documented in this encounterFisher-[facility]10-31-2024 NoteHNO ID: [id number] Author: LAURENCE COX RT(R) Service: ? Author Type: Technologist Type: [...] PATIENT PRESENTS WITH AN IMPLANTABLE OR ATTACHED COMMERCIAL LOAN COLLECTION OFFICER: No ALLERGIES: Reviewed and unchanged CONTRAST ALLERGY: NO. EXAM: MRI - CONTRAST TYPE: GROUP II PERIPHERAL IV DATA: Ambulatory: A peripheral IV was started in the Left antecubital site with a Angio cath: 24 gauge. RADIOLOGY DEPARTMENT: MR; Exam(s) Completed: Head: Cranial Nerve, Upper SIGNATURE: RT René(R) PATIENT NAME: Raheem Cody DATE: January 06, 2024 TIME: 3:12 [facility] History of Present illness Narrative* Laurence Cox RT(R) - 01/06/2024 3:12 PM EDT Radiology Service [...] PATIENT PRESENTS WITH AN IMPLANTABLE OR ATTACHED COMMERCIAL LOAN COLLECTION OFFICER: No ALLERGIES: Reviewed and unchanged CONTRAST ALLERGY: NO. EXAM: MRI - CONTRAST TYPE: GROUP II PERIPHERAL IV DATA: Ambulatory: A peripheral IV was started in the Left antecubital site with a Angio cath: 24 gauge. RADIOLOGY DEPARTMENT: MR; Exam(s) Completed: Head: Cranial Nerve, Upper SIGNATURE: RT René(R) PATIENT NAME: Raheem Cody DATE: January 06, 2024 TIME: 3:12 PM documented in this encounterFisher-Titus [facility] Center10-30-2024 Telephone encounter Note * Telephone Encounter - Treasure Hernandez RN - 01/05/2024 11:56 AM EDT See MyChart encounter from 12/31/2023. Informed patient that he should also schedule a follow up appointment to discuss symptoms in depth with provider. Informed him that he can schedule with any headache JEROME. [facility]10-30-2024 Miscellaneous Notes* Telephone Encounter - Treasure Hernandez RN - 01/05/2024 11:56 AM EDT See MyChart encounter from 12/31/2023. Informed patient that he should also schedule a follow up appointment to discuss symptoms in depth with provider. Informed him that he can schedule with any headache JEROME. * Telephone Encounter - Ivana Patient Project Portfolio Analyst Lulu Denson - 01/05/2024 11:26 AM EDT Name of Caller: Raheem Cody Relationship to patient: patient Last visit in this department: Visit date not found Reason for Call: Other : Patient says if he looks at mri for tmj it shows cyst in jawbone and several growths. He also said its hard to swallow. Company Accountant told him to stop taking a medication because of dehydration. Patient requests a different medication for MRI. Please call to discuss. Callback number: [phone] Fax Number (if necessary): N/A Additional info if needed (Prior Auth #, Claim #, etc ): N/A Lulu Heath Patient Project Portfolio Analyst Janiya documented in this encounterFisher-[facility]10-30-2024 Telephone encounter Note * Telephone Encounter - Treasure Hernandez RN - 01/05/2024 11:54 AM EDT Spoke with patient (verified name and date of ) and he states that he is okay with being prescribed one dose of Ativan. 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 Patientwould like medication sent to [facility] in [place], [place]. [facility]10-30-2024 Miscellaneous Notes* Telephone Encounter - Treasure Hernandez RN - 01/05/2024 11:54 AM EDT Spoke with patient (verified name and date of ) and he states that he is okay with being prescribed one dose of Ativan. 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 Patientwould like medication sent to [facility] in [place], [place]. * Telephone Encounter - Treasure Hernandez RN - 01/05/2024 10:10 AM EDT LVM for patient to call back office in regards to medication for MRI * Telephone Encounter - Idalia Naranjo LPN - 01/03/2024 8:24 AM EDT Forwarded to provider RENEE 12/10/23 NOV not scheduled documented in this encounterFisher-Titus [facility] Center10-30-2024 Telephone encounter Note * Telephone Encounter - Ivana Patient Project Portfolio Analyst Lulu Denson - 01/05/2024 11:26 AM EDT Name of Caller: Raheem Cody Relationship to patient: patient Last visit in this department: Visit date not found Reason for Call: Other : Patient says if he looks at mri for tmj it shows cyst in jawbone and several growths. He also said its hard to swallow. Company Accountant told him to stop taking a medication because of dehydration. Patient requests a different medication for MRI. Please call to discuss. Callback number: [phone] Fax Number (if necessary): N/A Additional info if needed (Prior Auth #, Claim #, etc ): N/A Lulu Heath Patient Project Portfolio Analyst Ccsr [facility]10-30-2024 Telephone encounter Note* Telephone Encounter - Treasure Hernandez RN - 01/05/2024 10:10 AM EDT LVM for patient to call back office in regards to medication for MRI [facility]10-28-2024 Telephone encounter Note* Telephone Encounter - Idalia Naranjo LPN - 01/03/2024 8:24 AM EDT Forwarded to provider RENEE 12/10/23 NOV not scheduled [facility]10-25-2024 Telephone encounter Note* Telephone Encounter - Eyal Garcia MD - 12/31/2023 5:20 PM EDT Re-sent to [facility]. Eyal Garcai MD December 31, 2023 5:21 PM [facility]10-25-2024 Note* Addendum Note - Eyal Garcia MD - 12/31/2023 5:20 PM EDTAddended by: EYAL GARCIA on: 12/31/2023 05:20 PM Modules accepted: Orders [facility]10-25-2024 Miscellaneous Notes* Telephone Encounter - Eyal Garcia MD - 12/31/2023 5:20 PM EDT Re-sent to [facility]. Eyal Garcia MD December 31, 2023 5:21 [...] to the wrong pharmacy. Please send to [facility] in [place]. * Telephone Encounter - Eyal Garcia MD [...] this is possible please send it to [facility] in [place]. Please advise. Patient has been identified by name and birthdate. Duration of symptoms: N/A Person calling: self Call patient at: at home [phone] (home) Was an appointment scheduled: No Closing statement: Results or non-symptom based questions: Thank you for calling [facility], your call will be returned within the next business day. Rachelle Berry documented in this encounterFisher-Titus Medical Center10-25-2024 Telephone encounter Note * Telephone Encounter - Idalia Naranjo LPN - 12/31/2023 4:39 PM EDT Forwarded to provider. [facility]10-25-2024 Telephone encounter Note* Telephone Encounter - Gabe Smiley - 12/31/2023 4:37 PM EDT Patient calling in stating that the prescription was sent to the wrong pharmacy. Please send to [facility] in [place]. [facility]10-25-2024 Telephone encounter Note* Telephone Encounter - Eyal Garcia MD - 12/31/2023 4:21 PM EDT Chlorpromazine 100 mg po prior to MRI. Take 1 hour prior to procedure. Decline alprazolam. Eyal Garcia MD December 31, 2023 4:22 PM [facility]10-25-2024 Telephone encounter Note* Telephone Encounter - Rachelle Berry - 12/31/2023 12:35 PM EDT Raheem is calling Eyal Garcia MD today asking if he can be prescribed XANAX to help him get threw the MRI that he is scheduled for on 01/06/24. If this is possible please send it to [facility] in [place]. Please advise. Patient has been identified by name and birthdate. Duration of symptoms: N/A Person calling: self Call patient at: at home [phone] (home) Was an appointment scheduled: No Closing statement: Results or non-symptom based questions: Thank you for calling [facility], your call will be returned within the next business day. Rachelle Berry [facility]10-23-2024 Miscellaneous Notes* Telephone Encounter - Jeff Cunningham [...] called asking for update. documented in this encounterWayne Hospital10-23-2024 Telephone encounter Note* Telephone Encounter - Jeff Cunningham CMA - 12/29/2023 9:21 AM EDT Patient called and stated labs have been done and seen results for labs and wants to know if any start on medications or come back to see you. [facility] [employer] [id number] Telephone encounter Note* Telephone Encounter - Jeff Cunningham CMA - 12/29/2023 9:21 AM EDT Patient called asking for a update. Says mouth is very sore. [facility] [employer] [id number] Telephone encounter Note* Telephone Encounter - Sp Mckeon CNA - 12/29/2023 9:21 AM EDT Patient called asking for update. [facility] [employer] [id number] Miscellaneous Notes* Telephone Encounter - Tesha Murphy - 12/28/2023 1:59 PM EDT Raheem called, he saw the rheumtologist stopped his Seroquel so he would have more moisture in his mouth. He thinks he is having yeast under his tongue again, and is wondering if he can have those dissolving pills again? Please advise documented in this encounterWayne Hospital10-22-2024 Telephone encounter Note* Telephone Encounter - Tesha Murphy - 12/28/2023 1:59 PM EDT Raheem called, he saw the rheumtologist stopped his Seroquel so he would have more moisture in his mouth. He thinks he is having yeast under his tongue again, and is wondering if he can have those dissolving pills again? Please advise [facility]10-21-2024 History of Present illness Narrative* Yon Chong MD - 12/27/2023 3:00 PM EDT Images from the original note were not included. [address] [id number] Date of Service: 12/27/2023 Thank you for the referral to evaluate Raheem Cody Jr. for Sicca symptoms. This is a new patient and is seen at the request of Carrington Fritz MD. Chief Complaint: Pain, dysphagia SUBJECTIVE: Raheem Cody Jr. is a 48 y.o. male who [...] mg total) by mouth in the morning. turmeric-g.[id number]-[id number] mg capsule Take by mouth every morning. [...] Anaphylaxis and Cough Anaphylaxis was listed per [facility]. reviewed. The following portions of [...] Jeromy Louis MD on 12/17/2023 3:45 PM IAmos MD have personally reviewed the image(s) and [...] with the PCP for further treatment - [facility] - [facility] Fragoso - Antinuclear Ab, HEp-2 Substrate, S; Future [...] or corrected. Thank you for your understanding. [facility] Dr. Yon Chong M.D. [address] [facility], [address] [place] [address] Office: [phone] 12/27/2023 documented in this encounterWayne Hospital10-16-2024 History of Present illness Narrative* Fran-Sarahi Steve, DO - 12/22/2023 2:45 PM EDT Images from the original note were not included. [facility] [facility] [address] SUBJECTIVE: Patient ID (1975): Raheem Cody . is a 49 y.o. male presents today [...] Anaphylaxis and Cough Anaphylaxis was listed per [facility]. 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 HollowaySarahijevon Wilson on 12/22/23 Retest as needed Benjamin Bar, [facility] Refrigeration Engineering Teacher Swallow Study Esophagram 09/20/2023: PHYSICAL EXAMINATION: Temp [...] gag reflex Dry mouth and eyes - [facility] [place], [place]; Future Current smoker Plan: - Patient [...] referred otalgia or pain. I did review [facility] ENT notes and agree with [...] this chart were generated using voice recognition [employer] dictation software. Although every effort was made to ensure the accuracy of this automated special services director, some errors in special services director may have occurred. documented in this encounterCopley Hospitalworldhistoryproject10-16-2024 Instructions* Patient Instructions* Duran Wilson DO - [...] cause referred otalgia. - I did review [facility] ENT notes and agree with referral to Neurology for atypical pain. He has also been sent to pain management but has not scheduled consultation yet. 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 Emery-Sarahi Wilson on 12/22/23 Retest as needed Benjamin Bar, [facility] Refrigeration Engineering Teacher documented in this encounterWayne Hospital10-15-2024 Miscellaneous Notes* Telephone Encounter - Tesha Murphy - 12/21/2023 10:49 AM EDT Raheem stopped in and is agreeable to pain management and a trial of PT. documented in this encounterWayne Hospital10-15-2024 Telephone encounter Note* Telephone Encounter - Teshanubia Murphy - 12/21/2023 10:49 AM EDT Raheem stopped in and is agreeable to pain management and a trial of PT. [facility]10-10-2024 History of Present illness Narrative* Carrington Fritz MD - 12/16/2023 11:30 AM EDT Subjective Patient ID: Raheem Cody Jr. is a 48 y.o. male. Comes in with ongoing complaints related to his mouth, jaw, swallowing, and his ears. He did have recent ENT, audiology, and Neurology evaluation through the [facility] and those notes are reviewed. [...] repeat once if needed. documented in this encounterAdena Pike Medical Centerb-datum [id number] NoteHNO ID: [id number] Author: EYAL GARCIA MD Service: ? Author Type: Physician Type: Progress Notes Filed: 12/10/2023 11:04 Note Text: HEADACHE MEDICINE NEW EVALUATION December 10, 2023 10:40 AM I have communicated my name and active licensure. The patient's identity and physical location were verified at the time of this visit. Either the patient or their legal service liaison representative has been informed of the risks [...] (will be provided wi (more content not included)...[facility]10-04-2024 History of Present illness Narrative* Eyal Garcia MD - 12/10/2023 10:27 AM EDT HEADACHE MEDICINE NEW EVALUATION December 10, 2023 10:40 AM I have communicated my name and active licensure. The patient's identity and physical location wereverified at the time of this visit. Either the patient or their legal service liaison representative has been informed of the risks [...] guidelines link Muscular pain - CONSULT TO [facility] Right facial pain - MRI BRAIN WO/W [...] 10, 2023 11:03 AM documented in this encounterFisher-Titus [facility] Center10-02-2024 History of Present illness Narrative* Tatyana Ochoa AUD - 12/08/2023 2:30 PM EDT Images from the original note were not included. [facility] [place] [facility] Department Section of Audiology AUDIOLOGIC EVALUATION REPORT Name: Raheem Cody CCF#: [id number] Date of Service: 12/08/2023 Date of : 1975 Age: [age] year old Referred by: SELF Referred for: Evaluation of suspected change in hearing, tinnitus, or balance. Referral documented: No referral on file Patient's major complaints: Otalgia in both ears, Pressure/fullness in both ears Raheem Cody was seen for an initial audiologic evaluation, prior to medical consultation with Kory Kirlkand APRN.KARUNA. 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 Hedenied [...] evaluation of middle ear function. CPT code: 53230 RIGHT EAR: Normal ME function. LEFT EAR: Normal ME function. ACOUSTIC REFLEXES Description of procedure: This test is an objective measure of auditory and facial nerve pathways. CPT code: 45383, 97235 RIGHT EAR PROBE EAR: (ipsi right stimulus [...] and boneconduction and speech recognition testing. CPT code:26310 RIGHT EAR: Hearing Sensitivity: WNL with a mild SNHL notch 0666-5760 Hz. Word Recognition Score: Excellent (100%). WRS is consistent with hearing sensitivity. Words were presented at 55 dB HL which approximates (45-55 dB HL) intensity level for average conversational speech. The NU-6 Ordered by Difficulty Word List (10 words) was used for testing. LEFT EAR: Hearing Sensitivity: WNL with a mild SNHL notch 4109-1730 Hz. Word Recognition Score: Excellent (100%). WRS [...] Elyse Akhtar B.A. Doctor of Audiology (Serafin) Director Security Risk Management Testing was obtained under the direct supervision of Serafin Chavez, LUDIN/A Serafin Chavez, LUDIN/A Clinical Refrigeration Engineering Teacher MENDIETA Abbrev- iation Definition Degree of hearing sensitivity dB range WNL within normal limits WNL 0 - 20 SNHL sensorineural hearing loss Mild 20-40 CHL conductive hearing loss Moderate 40-55 MHL mixed hearing loss Moderately-Severe 55-70 WRS word recognition score Severe 70-90 ME middle ear Profound 90 + TM tympanic membrane documented in this encounterFisher-Titus [facility] Center10-02-2024 Instructions* Patient Instructions* Kory Kirkland APRN.KARUNA - 12/08/2023 2:24 PM EDT - use Aleve (440 mg) or Ibuprofen (600 mg) for the pain as needed - jaw exercises and massages as discussed - warm compresses to the area as needed - avoid clenching - avoid excessively hard/chewy foods documented in this encounterFisher-Titus Medical Center10-02-2024 History of Present illness Narrative* Kory Kirkland APRN.CNP - 12/08/2023 1:50 PM EDT Images from the original note were not included. OTOLARYNGOLOGY-HEAD AND NECK SURGERY CC: Raheem Cody is a 48 year old male who [...] placed to physical therapy - [facility] - Follow-up with me as needed Kory Kirkland APRN.INSTRUCTOR TRAINER CANINE SERVICE HPI: 18 months ago he was driving [...] goiter. PHYSICAL EXAM: On physical examination Raheem Cody is a well-developed, well nourished male. His [...] may be performed. AUDIOGRAM: 12/08/2023 Kory Kirkland APRN.INSTRUCTOR TRAINER CANINE SERVICE Medical Decision Making: Problems: Moderate: New problem with uncertain prognosis Data: Unique source(s) for external note(s) reviewed: 2 Unique test result(s) reviewed: 2 Unique test(s) ordered: 1 Risk: Low: Low risk from testing/treatment Medical Decision Making Level: 4 - Moderate documented in this encounterFisher-Titus [facility] Center09-18-2024 History of Present illness Narrative* Carrington Fritz MD - 11/24/2023 9:15 AM EDT Subjective Patient ID: Raheem Cody Jr. is a 48 y.o. male. Comes [...] day for 10 days. documented in this encounterWayne Hospital09-17-2024 Miscellaneous Notes* Telephone Encounter - YUNIER Mata - 11/23/2023 10:36 AM EDT Order for MRI TMJ needed instead of MRI Face, per denial and MRI. documented in this encounterWayne Hospital09-17-2024 Telephone encounter Note* Telephone Encounter - YUNIER Mata - 11/23/2023 10:36 AM EDT Order for MRI TMJ needed instead of MRI Face, per denial and MRI. [facility]09-05-[facility] History of Present illness Narrative* Carrington Fritz MD - 11/11/2023 2:15 PM EDT Subjective Patient ID: Raheem Cody Jr. is a 48 y.o. male. 48 [...] days. Onychomycosis of toenail documented in this encounterCopley HospitalEdumedics [id number] Instructions Includes: Instructions for all patient encounters Education and Decision Aids were provided during visit for: Discussed nutritional needs teach healthy choices including fruits and vegetables Last Documented On 1:16PM ; [facility] Patient education about a pr oper diet Last Documented On 4 1:16PM ; [facility] Discussed concerns about exe rcise : promote physical activity Last Documented On 4 1:16PM ; [facility] Discussed nutritional needs teach healthy choices including fruits and vegetables Last Documented On 4 1:19PM ; [facility] Patient education about a pr oper diet Last Documented On 4 1:19PM ; [facility] Discussed concerns about exe rcise : promote physical activity Last Documented On 4 1:19PM ; [facility] Discussed nutritional needs teach healthy choices including fruits and vegetables Last Documented On 4 1:14PM ; [facility] Patient education about a pr oper diet Last Documented On 4 1:14PM ; [facility] Discussed concerns about exe rcise : promote physical activity Last Documented On 4 1:14PM ; [facility] Discussed nutritional needs teach healthy choices including fruits and vegetables Last Documented On 4 1:17PM ; [facility] Patient education about a pr oper diet Last Documented On 4 1:17PM ; [facility] Discussed concerns about exe rcise : promote physical activity Last Documented On 4 1:17PM ; [facility] Discussed concerns about uns afe sexual practices Last Documented On 4 1:29PM ; [facility] Discussed concerns about tob acco use Last Documented On 4 1:29PM ; [facility] Discussed concerns about alc ohol use Last Documented On 4 1:29PM ; [facility] Discussed concerns about ill icit drug use Last Documented On 4 1:29PM ; [facility] Patient has agreed to visits every 4 weeks Last Documented On 4 1:29PM ; [facility] Patient aware not to share n eedles, razors, toothbrushes, or nail clippers Last Documented On 4 1:29PM ; [facility] Counseled on medication and herbal product interactions Last Documented On 4 1:29PM ; [facility] Patient is treatment naive Last Documented On 4 1:29PM ; [facility] Patient has an estimated lif e expectancy of 12 months or greater. Last Documented On 4 1:29PM ; [facility] Patient counseled on how to take Hepatitis C Medications Last Documented On 4 1:29PM ; [facility] Patient agreed to labs (CBC, CMP, HCV) every 4 weeks Last Documented On 4 1:29PM ; [facility] Discussed nutritional needs teach healthy choices including fruits and vegetables Last Documented On 4 2:43PM ; [facility] Patient education about a pr oper diet Last Documented On 4 2:43PM ; [facility] Discussed concerns about exe rcise : promote physical activity Last Documented On 4 2:43PM ; [facility] *[facility] offered active and supp ortive listening, normalized emotions and feelings, and processed ~current stressors. ~*Reviewed relapse prevention skills and positive support activities Last Documented On 4 7:56PM ; [facility] Discussed nutritional needs teach healthy choices including fruits and vegetables Last Documented On 4 1:21PM ; [facility] Patient education about a pr oper diet Last Documented On 4 1:21PM ; [facility] Discussed concerns about exe rcise : promote physical activity Last Documented On 4 1:21PM ; [facility] Patient has agreed to visits every 4 weeks Last Documented On 4 1:59PM ; [facility] Patient aware not to share n eedles, razors, toothbrushes, or nail clippers Last Documented On 4 1:59PM ; [facility] Counseled on medication and herbal product interactions Last Documented On 4 1:59PM ; [facility] Patient is treatment naive Last Documented On 4 1:59PM ; [facility] Patient has an estimated lif e expectancy of 12 months or greater. Last Documented On 4 1:59PM ; [facility] Patient counseled on how to take Hepatitis C Medications Last Documented On 4 1:59PM ; [facility] Patient agreed to labs (CBC, CMP, HCV) every 4 weeks Last Documented On 4 1:59PM ; [facility] Work Phone: 1(375) 199-781006-19-2024 Instructions Includes: Instructions for all patient encounters Education and Decision Aids were provided during visit for: Discussed nutritional needs teach healthy choices including fruits and vegetables Last Documented On 4 1:16PM ; [facility] Patient education about a pr oper diet Last Documented On 4 1:16PM ; [facility] Discussed concerns about exe rcise : promote physical activity Last Documented On 4 1:16PM ; [facility] Discussed nutritional needs teach healthy choices including fruits and vegetables Last Documented On 4 1:19PM ; [facility] Patient education about a pr oper diet Last Documented On 4 1:19PM ; [facility] Discussed concerns about exe rcise : promote physical activity Last Documented On 4 1:19PM ; [facility] Discussed nutritional needs teach healthy choices including fruits and vegetables Last Documented On 4 1:14PM ; [facility] Patient education about a pr oper diet Last Documented On 4 1:14PM ; [facility] Discussed concerns about exe rcise : promote physical activity Last Documented On 4 1:14PM ; [facility] Discussed nutritional needs teach healthy choices including fruits and vegetables Last Documented On 4 1:17PM ; [facility] Patient education about a pr oper diet Last Documented On 4 1:17PM ; [facility] Discussed concerns about exe rcise : promote physical activity Last Documented On 4 1:17PM ; [facility] Discussed concerns about uns afe sexual practices Last Documented On 4 1:29PM ; [facility] Discussed concerns about tob acco use Last Documented On 4 1:29PM ; [facility] Discussed concerns about alc ohol use Last Documented On 4 1:29PM ; [facility] Discussed concerns about ill icit drug use Last Documented On 4 1:29PM ; [facility] Patient has agreed to visits every 4 weeks Last Documented On 4 1:29PM ; [facility] Patient aware not to share n eedles, razors, toothbrushes, or nail clippers Last Documented On 4 1:29PM ; [facility] Counseled on medication and herbal product interactions Last Documented On 4 1:29PM ; [facility] Patient is treatment naive Last Documented On 4 1:29PM ; [facility] Patient has an estimated lif e expectancy of 12 months or greater. Last Documented On 4 1:29PM ; [facility] Patient counseled on how to take Hepatitis C Medications Last Documented On 4 1:29PM ; [facility] Patient agreed to labs (CBC, CMP, HCV) every 4 weeks Last Documented On 4 1:29PM ; [facility] Discussed nutritional needs teach healthy choices including fruits and vegetables Last Documented On 4 2:43PM ; [facility] Patient education about a pr oper diet Last Documented On 4 2:43PM ; [facility] Discussed concerns about exe rcise : promote physical activity Last Documented On 4 2:43PM ; [facility] *[facility] offered active and supp ortive listening, normalized emotions and feelings, and processed ~current stressors. ~*Reviewed relapse prevention skills and positive support activities Last Documented On 4 7:56PM ; [facility] Discussed nutritional needs teach healthy choices including fruits and vegetables Last Documented On 4 1:21PM ; [facility] Patient education about a pr oper diet Last Documented On 4 1:21PM ; [facility] Discussed concerns about exe rcise : promote physical activity Last Documented On 4 1:21PM ; [facility] Patient has agreed to visits every 4 weeks Last Documented On 4 1:59PM ; [facility] Patient aware not to share n eedles, razors, toothbrushes, or nail clippers Last Documented On 4 1:59PM ; [facility] Counseled on medication and herbal product interactions Last Documented On 4 1:59PM ; [facility] Patient is treatment naive Last Documented On 4 1:59PM ; [facility] Patient has an estimated lif e expectancy of 12 months or greater. Last Documented On 4 1:59PM ; [facility] Patient counseled on how to take Hepatitis C Medications Last Documented On 4 1:59PM ; [facility] Patient agreed to labs (CBC, CMP, HCV) every 4 weeks Last Documented On 4 1:59PM ; [facility] Work Phone: 1(348) 708-567306-19-2024 Evaluation note Includes: Assessments for all patient encounters Findings Encounter Date [Z68.26 - Body mass index [B HI] 26.0-26.9, adult] assessment of body mass index Medical Established Patient with Colette Vuong [facility] 08/25/2023 Last Documented On 4 2:01PM ; [facility] Assessment of BMI Percentile = 5% to < 85% for age Z68.52 Medical Established Patient with Colette Vuong [facility] 08/25/2023 Last Documented On 4 2:01PM ; [facility] Nicotine dependence Medical Established Patient with Colette Yevgeniy [facility] 08/25/2023 Last Documented On 4 2:01PM ; [facility] Oral thrush Medical Established Patient with Colette Yevgeniy [facility] 08/25/2023 Last Documented On 4 2:01PM ; [facility] Otogenic otalgia of right ear Medical Es tablished Patient with Colette Yevgeniy [facility] 08/25/2023 Last Documented On 4 2:01PM ; [facility] 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 Medical Established Patient with Colette Yevgeniy [facility] 08/25/2023 Last Documented On 4 2:01PM ; [facility] Viral hepatitis C Medical Established Patient wi th Colette Vuong [employer] 08/25/2023 Last Documented On 4 2:01PM ; [facility] Visit for: therapeutic drug monitoring Medical Established Patient with Colette Vuong [employer] 08/25/2023 Last Documented On 4 2:01PM ; [facility] [Z68.26 - Body mass index [B HI] 26.0-26.9, adult] assessment of body mass index Medical Established Patient with Colette Vuong [employer] 07/15/2023 Last Documented On 4 8:36AM ; [facility] Nicotine dependence Medical Established Patient with Colette Vuong [employer] [facility] 07/15/2023 Last Documented On 4 8:36AM ; [facility] 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 Medical Established Patient with Colette Vuong [employer] 07/15/2023 Last Documented On 4 8:36AM ; [facility] Viral hepatitis C Medical Established Patient wi th Colette Vuong [facility] 07/15/2023 Last Documented On 4 8:36AM ; [facility] Viral hepatitis C Medical Established Patient wi th Colette Vuong [facility] 07/15/2023 Last Documented On 4 8:36AM ; [facility] Visit for: screening for depression [facility] Established Patient with Colette Vuong [employer] [facility] [facility] 07/15/2023 Last Documented On 4 8:36AM ; [facility] [Z68.25 - Body mass index [B HI] 25.0-25.9, adult] assessment of body mass index Medical Established Patient with Colette Vuong [employer] 06/03/2023 Last Documented On 4 9:49AM ; [facility] Nicotine dependence Medical Established Patient with Colette Vuong [employer] 06/03/2023 Last Documented On 4 9:49AM ; [facility] 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 Medical Established Patient with Colette Vuong [employer] [facility] 06/03/2023 Last Documented On 4 9:49AM ; [facility] Viral hepatitis C Medical Established Patient wi th Colette Vuong [facility] 06/03/2023 Last Documented On 4 9:49AM ; [facility] Visit for: screening for STD Medical Est ablished Patient with Colette Vuong [employer] [facility] [facility] 06/03/2023 Last Documented On 4 9:49AM ; [facility] [Z68.24 - Body mass index [B HI] 24.0-24.9, adult] assessment of body mass index Medical Established Patient with Colette Vuong [employer] [facility] 05/10/2023 Last Documented On 4 8:24AM ; [facility] Generalized anxiety disorder Medical Est ablished Patient with Colette Vuong [employer] 05/10/2023 Last Documented On 4 8:24AM ; [facility] Nicotine dependence Medical Established Patient with Colette Yevgeniy [employer] [facility] [facility] 05/10/2023 Last Documented On 4 8:24AM ; [facility] Onychomycosis of the toenails Medical Es tablished Patient with Colette Vuong [employer] [facility] 05/10/2023 Last Documented On 4 8:24AM ; [facility] Otogenic otalgia of right ear Medical Es tablished Patient with Colette Vuong [employer] [facility] [facility] 05/10/2023 Last Documented On 4 8:24AM ; [facility] 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 Medical Established Patient with Colette Vuong [employer] [facility] [facility] 05/10/2023 Last Documented On 4 8:24AM ; [facility] Viral hepatitis C Medical Established Patient wi th Colette Vuong [employer] [facility] [facility] 05/10/2023 Last Documented On 4 8:24AM ; [facility] [Z68.24 - Body mass index [B HI] 24.0-24.9, adult] assessment of body mass index Open Access - Established with Colette Vuong [employer] [facility] 04/26/2023 Last Documented On 4 8:20AM ; [facility] Nicotine dependence Open Access - Established wi th Colette Vuong [employer] [facility] [facility] 04/26/2023 Last Documented On 4 8:20AM ; [facility] Otogenic otalgia of right ear Open Acces s - Established with Colette Vuong [employer] [facility] 04/26/2023 Last Documented On 4 8:20AM ; [facility] 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 Open Access - Established with Colette Vuong [employer] [facility] 04/26/2023 Last Documented On 4 8:20AM ; [facility] Generalized anxiety disorder Established Victoria ent with Bri B[employer] 04/12/2023 Last Documented On 4 7:57PM ; [facility] Nicotine dependence Established Patient with Bri Barrow [employer] 04/12/2023 Last Documented On 4 7:57PM ; [facility] [Z68.23 - Body mass index [B HI] 23.0-23.9, adult] assessment of body mass index Medical New Patient with Colette Vuong [employer] [facility] 04/12/2023 Last Documented On 4 8:31AM ; [facility] Acute otitis media of left ear Medical N ew Patient with Colette Vuong [employer] [facility] 04/12/2023 Last Documented On 4 8:31AM ; [facility] Diabetes Risk Test Score was three score 04/12/2023 Medical New Patient with Colette Vuong [employer] 04/12/2023 Last Documented On 4 8:31AM ; [facility] Nicotine dependence Medical New Patient with Prosper Vuong [employer] [facility] 04/12/2023 Last Documented On 4 8:31AM ; [facility] Screening for HIV Medical New Patient with Francois Vuong [employer] 04/12/2023 Last Documented On 4 8:31AM ; [facility] Upper respiratory infection Medical New Patient with Colette Vuong [employer] [facility] 04/12/2023 Last Documented On 4 8:31AM ; [facility] Visit for: screening for dig estive system disorders Medical New Patient with Colette Vuong [employer] 04/12/2023 Last Documented On 4 8:31AM ; [facility] Work Phone: [phone]) 209-791506-19-2024 Evaluation note Includes: Assessments for all patient encounters Findings Encounter Date [Z68.26 - Body mass index [B HI] 26.0-26.9, adult] assessment of body mass index Medical Established Patient with Colette Vuong [employer] [facility] [facility] 08/25/2023 Last Documented On 4 8:38AM ; [facility] Assessment of BMI Percentile = 5% to < 85% for age Z68.52 Medical Established Patient with Colette Vuong [employer] [facility] 08/25/2023 Last Documented On 4 8:38AM ; [facility] Nicotine dependence Medical Established Patient with Colettekeo Vuong [employer] 08/25/2023 Last Documented On 4 8:38AM ; [facility] Oral thrush Medical Established Patient with Colette Vuong [employer] [facility] 08/25/2023 Last Documented On 4 8:38AM ; [facility] Otogenic otalgia of right ear Medical Es tablished Patient with Colette Vuong [employer] 08/25/2023 Last Documented On 4 8:38AM ; [facility] 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 Medical Established Patient with Colette Vuong [employer] [facility] 08/25/2023 Last Documented On 4 8:38AM ; [facility] Viral hepatitis C Medical Established Patient wi th Colette Vuong [facility] 08/25/2023 Last Documented On 4 8:38AM ; [facility] Visit for: therapeutic drug monitoring Medical Established Patient with Colette Vuong [employer] 08/25/2023 Last Documented On 4 8:38AM ; [facility] [Z68.26 - Body mass index [B HI] 26.0-26.9, adult] assessment of body mass index Medical Established Patient with Colette Vuong [employer] 07/15/2023 Last Documented On 4 8:36AM ; [facility] Nicotine dependence Medical Established Patient with Colette Vuong [employer] 07/15/2023 Last Documented On 4 8:36AM ; [facility] 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 Medical Established Patient with Colette Vuong [employer] 07/15/2023 Last Documented On 4 8:36AM ; [facility] Viral hepatitis C Medical Established Patient wi th Colette Vuong [employer] 07/15/2023 Last Documented On 4 8:36AM ; [facility] Viral hepatitis C Medical Established Patient wi th Colette Vuong [employer] [facility] 07/15/2023 Last Documented On 4 8:36AM ; [facility] Visit for: screening for depression [facility] susanne Established Patient with Colette Vuong [employer] [facility] 07/15/2023 Last Documented On 4 8:36AM ; [facility] [Z68.25 - Body mass index [B HI] 25.0-25.9, adult] assessment of body mass index Medical Established Patient with oClette Vuong [employer] [facility] 06/03/2023 Last Documented On 4 9:49AM ; [facility] Nicotine dependence Medical Established Patient with Colettekeo Vuong [employer] 06/03/2023 Last Documented On 4 9:49AM ; [facility] 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 Medical Established Patient with Colette Vuong [employer] 06/03/2023 Last Documented On 4 9:49AM ; [facility] Viral hepatitis C Medical Established Patient wi th Colette Vuong [employer] 06/03/2023 Last Documented On 4 9:49AM ; [facility] Visit for: screening for STD Medical Est ablished Patient with Colette Vuong [employer] [facility] 06/03/2023 Last Documented On 4 9:49AM ; [facility] [Z68.24 - Body mass index [B HI] 24.0-24.9, adult] assessment of body mass index Medical Established Patient with Colette Vuong [employer] [facility] 05/10/2023 Last Documented On 4 8:24AM ; [facility] Generalized anxiety disorder Medical Est ablished Patient with Colette Vuong [employer] 05/10/2023 Last Documented On 4 8:24AM ; [facility] Nicotine dependence Medical Established Patient with Colette Vuong [employer] 05/10/2023 Last Documented On 4 8:24AM ; [facility] Onychomycosis of the toenails Medical Es tablished Patient with Colette Vuong [employer] 05/10/2023 Last Documented On 4 8:24AM ; [facility] Otogenic otalgia of right ear Medical Es tablished Patient with Colette Vuong [employer] 05/10/2023 Last Documented On 4 8:24AM ; [facility] 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 Medical Established Patient with Colette Vuong [employer] 05/10/2023 Last Documented On 4 8:24AM ; [facility] Viral hepatitis C Medical Established Patient wi th Colette Vuong [employer] 05/10/2023 Last Documented On 4 8:24AM ; [facility] [Z68.24 - Body mass index [B HI] 24.0-24.9, adult] assessment of body mass index Open Access - Established with Colette Yevgeniy [facility] 04/26/2023 Last Documented On 4 8:20AM ; [facility] Nicotine dependence Open Access - Established wi Colette Vuong [facility] 04/26/2023 Last Documented On 4 8:20AM ; [facility] Otogenic otalgia of right ear Open Acces s - Established with Colette Vuong [facility] 04/26/2023 Last Documented On 4 8:20AM ; [facility] 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 Open Access - Established with Colette Vuong [facility] 04/26/2023 Last Documented On 4 8:20AM ; [facility] Generalized anxiety disorder Established Victoria ent with Bri Barrow [employer] 04/12/2023 Last Documented On 4 7:57PM ; [facility] Nicotine dependence Established Patient with Brinatalie Barrow [employer] 04/12/2023 Last Documented On 4 7:57PM ; [facility] [Z68.23 - Body mass index [B HI] 23.0-23.9, adult] assessment of body mass index Medical New Patient with Colette Vuong [employer] 04/12/2023 Last Documented On 4 8:31AM ; [facility] Acute otitis media of left ear Medical N ew Patient with Colette Yevgeniy [employer] 04/12/2023 Last Documented On 4 8:31AM ; [facility] Diabetes Risk Test Score was three score 04/12/2023 Medical New Patient with Colette Vuong [employer] 04/12/2023 Last Documented On 4 8:31AM ; [facility] Nicotine dependence Medical New Patient with Prosper Vuong [employer] 04/12/2023 Last Documented On 4 8:31AM ; [facility] Screening for HIV Medical New Patient with Francois Vuong [employer] 04/12/2023 Last Documented On 4 8:31AM ; [facility] Upper respiratory infection Medical New Patient with Colette Vuong [employer] 04/12/2023 Last Documented On 4 8:31AM ; [facility] Visit for: screening for dig estive system disorders Medical New Patient with Colette Vuong [employer] 04/12/2023 Last Documented On 4 8:31AM ; [facility] Work Phone: 1(546) 749-680806-19-2024 Progress note* Progress note Date Encounter Last Documented by 08/25/2023 Chart Update Last documented on 08/30/2023; 8:37 AM, Colettekeo Vuong CNP; [facility] Tests Blood Analysis: Blood Chemistry: No HEPATITIS C Viral Load 08/25/2023 Hep C - Not Detected. Practice Management Hepatitis C Treatment Started [facility]. [facility]06-19-2024 Progress note* Progress note Date Encounter Last Documented by 08/25/2023 Medical Established Patient Last documented on 08/30/2023; 8:38 AM, Colette Yevgeniy BECKMAN; [facility] Active Problems & Conditions - F41.1 - [...] 08/25/2023 01:11 pm BP-Sitting L118/79 mmHg Pulse Rate-Pkmwctv96 bpm Njikjv70 in Vpimfc016 lbs Body Mass Index26 kg/m2 Body Surface Area2 m2 Oxygen Mwalhdkaim30 % Vital Signs: - Systolic blood pressure [...] Present, PCP Not Present, OXY Not Present, [id number] Not Present, MTD Not Present, MET Not [...] Quant (Non-Graph) EndCited StartCited- Candidal stomatitis Nystatin 648802 UNIT/ML mL swish with 5mL of solution [...] in 3 months. Care Team - Colette Vuong CNP Health Reminders - Assess BMI satisfied 08/25/2023. - Assess Tobacco Use satisfied 08/25/2023. - Follow Up Plan BMI Management satisfied 08/25/2023. [facility]05-29-2024 History of Present illness Narrative* Fran-Sarahi Wilson, DO - 08/04/2023 1:15 PM EDT [facility] [address] [facility] [id number] SUBJECTIVE: Patient ID ([id number]): Raheem Cody . is a 48 y.o. male presents [...] like nicotine patches. He goes through one [employer] bar pulse vape every two weeks which [...] side of the ear. 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 He reports that he used to smoke, [...] Anaphylaxis and Cough Anaphylaxis was listed per [facility]. Current Outpatient Medications Medication Sig Dispense Refill tea tree oiL 100 % oil Apply topically. turmeric-g.cna-ixxndhkgc-whmcf [phone] mg capsule Take by mouth every morning. [...] to ensure the accuracy of this automated special services director, some errors in special services director may have occurred. Theresa Nolen 08/04/23 1334 [facility] Instructions* Patient Instructions* Theresa Callum - [...] for worsening of hearing. [facility] Progress note* Progress note Date Encounter Last Documented by 07/22/2023 Chart Update Last documented on 08/11/2023; 1:37 PM, Colette Vuong CNP; [facility] Tests Blood Analysis: Blood Chemistry: No HEPATITIS C Viral Load 07/22/2023 Hep C - Not Detected. Practice Management Hepatitis C Treatment Started [facility]. [facility]05-09-2024 Instructions Includes: Instructions for all patient encounters Education and Decision Aids were provided during visit for: Discussed nutritional needs teach healthy choices including fruits and vegetables Last Documented On 4 1:19PM ; [facility] Patient education about a pr oper diet Last Documented On 4 1:19PM ; [facility] Discussed concerns about exe rcise : promote physical activity Last Documented On 4 1:19PM ; [facility] Discussed nutritional needs teach healthy choices including fruits and vegetables Last Documented On 4 1:14PM ; [facility] Patient education about a pr oper diet Last Documented On 4 1:14PM ; [facility] Discussed concerns about exe rcise : promote physical activity Last Documented On 4 1:14PM ; [facility] Discussed nutritional needs teach healthy choices including fruits and vegetables Last Documented On 4 1:17PM ; [facility] Patient education about a pr oper diet Last Documented On 4 1:17PM ; [facility] Discussed concerns about exe rcise : promote physical activity Last Documented On 4 1:17PM ; [facility] Discussed concerns about uns afe sexual practices Last Documented On 4 1:29PM ; [facility] Discussed concerns about tob acco use Last Documented On 4 1:29PM ; [facility] Discussed concerns about alc ohol use Last Documented On 4 1:29PM ; [facility] Discussed concerns about ill icit drug use Last Documented On 4 1:29PM ; [facility] Patient has agreed to visits every 4 weeks Last Documented On 4 1:29PM ; [facility] Patient aware not to share n eedles, razors, toothbrushes, or nail clippers Last Documented On 4 1:29PM ; [facility] Counseled on medication and herbal product interactions Last Documented On 4 1:29PM ; [facility] Patient is treatment naive Last Documented On 4 1:29PM ; [facility] Patient has an estimated lif e expectancy of 12 months or greater. Last Documented On 4 1:29PM ; [facility] Patient counseled on how to take Hepatitis C Medications Last Documented On 4 1:29PM ; [facility] Patient agreed to labs (CBC, CMP, HCV) every 4 weeks Last Documented On 4 1:29PM ; [facility] Discussed nutritional needs teach healthy choices including fruits and vegetables Last Documented On 4 2:43PM ; [facility] Patient education about a pr oper diet Last Documented On 4 2:43PM ; [facility] Discussed concerns about exe rcise : promote physical activity Last Documented On 4 2:43PM ; [facility] *[facility] offered active and supp ortive listening, normalized emotions and feelings, and processed ~current stressors. ~*Reviewed relapse prevention skills and positive support activities Last Documented On 4 7:56PM ; [facility] Discussed nutritional needs teach healthy choices including fruits and vegetables Last Documented On 4 1:21PM ; [facility] Patient education about a pr oper diet Last Documented On 4 1:21PM ; [facility] Discussed concerns about exe rcise : promote physical activity Last Documented On 4 1:21PM ; [facility] Patient has agreed to visits every 4 weeks Last Documented On 4 1:59PM ; [facility] Patient aware not to share n eedles, razors, toothbrushes, or nail clippers Last Documented On 4 1:59PM ; [facility] Counseled on medication and herbal product interactions Last Documented On 4 1:59PM ; [facility] Patient is treatment naive Last Documented On 4 1:59PM ; [facility] Patient has an estimated lif e expectancy of 12 months or greater. Last Documented On 4 1:59PM ; [facility] Patient counseled on how to take Hepatitis C Medications Last Documented On 4 1:59PM ; [facility] Patient agreed to labs (CBC, CMP, HCV) every 4 weeks Last Documented On 4 1:59PM ; [facility] Work Phone: 1(191) 659-590305-09-2024 Instructions Includes: Instructions for all patient encounters Education and Decision Aids were provided during visit for: Discussed nutritional needs teach healthy choices including fruits and vegetables Last Documented On 4 1:19PM ; [facility] Patient education about a pr oper diet Last Documented On 4 1:19PM ; [facility] Discussed concerns about exe rcise : promote physical activity Last Documented On 4 1:19PM ; [facility] Discussed nutritional needs teach healthy choices including fruits and vegetables Last Documented On 4 1:14PM ; [facility] Patient education about a pr oper diet Last Documented On 4 1:14PM ; [facility] Discussed concerns about exe rcise : promote physical activity Last Documented On 4 1:14PM ; [facility] Discussed nutritional needs teach healthy choices including fruits and vegetables Last Documented On 4 1:17PM ; [facility] Patient education about a pr oper diet Last Documented On 4 1:17PM ; [facility] Discussed concerns about exe rcise : promote physical activity Last Documented On 4 1:17PM ; [facility] Discussed concerns about uns afe sexual practices Last Documented On 4 1:29PM ; [facility] Discussed concerns about tob acco use Last Documented On 4 1:29PM ; [facility] Discussed concerns about alc ohol use Last Documented On 4 1:29PM ; [facility] Discussed concerns about ill icit drug use Last Documented On 4 1:29PM ; [facility] Patient has agreed to visits every 4 weeks Last Documented On 4 1:29PM ; [facility] Patient aware not to share n eedles, razors, toothbrushes, or nail clippers Last Documented On 4 1:29PM ; [facility] Counseled on medication and herbal product interactions Last Documented On 4 1:29PM ; [facility] Patient is treatment naive Last Documented On 4 1:29PM ; [facility] Patient has an estimated lif e expectancy of 12 months or greater. Last Documented On 4 1:29PM ; [facility] Patient counseled on how to take Hepatitis C Medications Last Documented On 4 1:29PM ; [facility] Patient agreed to labs (CBC, CMP, HCV) every 4 weeks Last Documented On 4 1:29PM ; [facility] Discussed nutritional needs teach healthy choices including fruits and vegetables Last Documented On 4 2:43PM ; [facility] Patient education about a pr oper diet Last Documented On 4 2:43PM ; [facility] Discussed concerns about exe rcise : promote physical activity Last Documented On 4 2:43PM ; [facility] *[facility] offered active and supp ortive listening, normalized emotions and feelings, and processed ~current stressors. ~*Reviewed relapse prevention skills and positive support activities Last Documented On 4 7:56PM ; [facility] Discussed nutritional needs teach healthy choices including fruits and vegetables Last Documented On 4 1:21PM ; [facility] Patient education about a pr oper diet Last Documented On 4 1:21PM ; [facility] Discussed concerns about exe rcise : promote physical activity Last Documented On 4 1:21PM ; [facility] Patient has agreed to visits every 4 weeks Last Documented On 4 1:59PM ; [facility] Patient aware not to share n eedles, razors, toothbrushes, or nail clippers Last Documented On 4 1:59PM ; [facility] Counseled on medication and herbal product interactions Last Documented On 4 1:59PM ; [facility] Patient is treatment naive Last Documented On 4 1:59PM ; [facility] Patient has an estimated lif e expectancy of 12 months or greater. Last Documented On 4 1:59PM ; [facility] Patient counseled on how to take Hepatitis C Medications Last Documented On 4 1:59PM ; [facility] Patient agreed to labs (CBC, CMP, HCV) every 4 weeks Last Documented On 4 1:59PM ; [facility] Work Phone: [phone]) 741-400405-09-2024 Evaluation note Includes: Assessments for all patient encounters Findings Encounter Date [Z68.26 - Body mass index [B HI] 26.0-26.9, adult] assessment of body mass index Medical Established Patient with Colette Vuong [facility] 07/15/2023 Last Documented On 4 8:36AM ; [facility] Nicotine dependence Medical Established Patient with Colette Yevgeniy [facility] 07/15/2023 Last Documented On 4 8:36AM ; [facility] 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 Medical Established Patient with Colette Vuong [facility] 07/15/2023 Last Documented On 4 8:36AM ; [facility] Viral hepatitis C Medical Established Patient wi th Colette Vuong [facility] 07/15/2023 Last Documented On 4 8:36AM ; [facility] Viral hepatitis C Medical Established Patient wi Colette Vuong [facility] 07/15/2023 Last Documented On 4 8:36AM ; [facility] Visit for: screening for depression [facility] Established Patient with Colette Vuong [facility] 07/15/2023 Last Documented On 4 8:36AM ; [facility] [Z68.25 - Body mass index [B HI] 25.0-25.9, adult] assessment of body mass index Medical Established Patient with Colette Vuong [facility] 06/03/2023 Last Documented On 4 9:49AM ; [facility] Nicotine dependence Medical Established Patient with Colette Yevgeniy [facility] 06/03/2023 Last Documented On 4 9:49AM ; [facility] 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 Medical Established Patient with Colette Yevgeniy [facility] 06/03/2023 Last Documented On 4 9:49AM ; [facility] Viral hepatitis C Medical Established Patient wi th Colette Vuong [facility] 06/03/2023 Last Documented On 4 9:49AM ; [facility] Visit for: screening for STD Medical Est ablished Patient with Colette Vuong [employer] 06/03/2023 Last Documented On 4 9:49AM ; [facility] [Z68.24 - Body mass index [B HI] 24.0-24.9, adult] assessment of body mass index Medical Established Patient with Colette Vuong [facility] 05/10/2023 Last Documented On 4 8:24AM ; [facility] Generalized anxiety disorder Medical Est ablished Patient with Colette Vuong [employer] 05/10/2023 Last Documented On 4 8:24AM ; [facility] Nicotine dependence Medical Established Patient with Colette Yevgeniy [employer] 05/10/2023 Last Documented On 4 8:24AM ; [facility] Onychomycosis of the toenails Medical Es tablished Patient with Colette Vuong [employer] 05/10/2023 Last Documented On 4 8:24AM ; [facility] Otogenic otalgia of right ear Medical Es tablished Patient with Colette Vuong [employer] 05/10/2023 Last Documented On 4 8:24AM ; [facility] 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 Medical Established Patient with Colette Vuong [employer] 05/10/2023 Last Documented On 4 8:24AM ; [facility] Viral hepatitis C Medical Established Patient wi th Colette Vuong [employer] 05/10/2023 Last Documented On 4 8:24AM ; [facility] [Z68.24 - Body mass index [B HI] 24.0-24.9, adult] assessment of body mass index Open Access - Established with Colette Vuong [employer] 04/26/2023 Last Documented On 4 8:20AM ; [facility] Nicotine dependence Open Access - Established wi Colette Vuong [employer] 04/26/2023 Last Documented On 4 8:20AM ; [facility] Otogenic otalgia of right ear Open Acces s - Established with Colette Vuong [employer] [facility] 04/26/2023 Last Documented On 4 8:20AM ; [facility] 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 Open Access - Established with Colette Vuong [employer] [facility] 04/26/2023 Last Documented On 4 8:20AM ; [facility] Generalized anxiety disorder BH Established Victoria ent with Bri Barrow [employer] 04/12/2023 Last Documented On 4 7:57PM ; [facility] Nicotine dependence Established Patient with Bri Barrow [employer] 04/12/2023 Last Documented On 4 7:57PM ; [facility] [Z68.23 - Body mass index [B HI] 23.0-23.9, adult] assessment of body mass index Medical New Patient with Colette Vuong [employer] [facility] 04/12/2023 Last Documented On 4 8:31AM ; [facility] Acute otitis media of left ear Medical N ew Patient with Colette Vuong [employer] 04/12/2023 Last Documented On 4 8:31AM ; [facility] Diabetes Risk Test Score was three score 04/12/2023 Medical New Patient with Colette Vuong [employer] [facility] 04/12/2023 Last Documented On 4 8:31AM ; [facility] Nicotine dependence Medical New Patient with Prosper Vuong [employer] 04/12/2023 Last Documented On 4 8:31AM ; [facility] Screening for HIV Medical New Patient with Francois Vuong [employer] 04/12/2023 Last Documented On 4 8:31AM ; [facility] Upper respiratory infection Medical New Patient with Colette Vuong [employer] 04/12/2023 Last Documented On 4 8:31AM ; [facility] Visit for: screening for dig estive system disorders Medical New Patient with Colette Vuong [employer] [facility] 04/12/2023 Last Documented On 4 8:31AM ; [facility] Work Phone: [phone]) [phone] Evaluation note Includes: Assessments for all patient encounters Findings Encounter Date [Z68.26 - Body mass index [B HI] 26.0-26.9, adult] assessment of body mass index Medical Established Patient with Colette Vuong [employer] [facility] [facility] 07/15/2023 Last Documented On 4 8:36AM ; [facility] Nicotine dependence Medical Established Patient with Colette Vuong [employer] [facility] 07/15/2023 Last Documented On 4 8:36AM ; [facility] 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 Medical Established Patient with Colette Vuong [employer] [facility] [facility] 07/15/2023 Last Documented On 4 8:36AM ; [facility] Viral hepatitis C Medical Established Patient wi th Colette Vuong [employer] [facility] [facility] 07/15/2023 Last Documented On 4 8:36AM ; [facility] Viral hepatitis C Medical Established Patient wi th Colette Vuong [employer] [facility] [facility] 07/15/2023 Last Documented On 4 8:36AM ; [facility] Visit for: screening for depression [facility] Established Patient with Colette Vuong [employer] 07/15/2023 Last Documented On 4 8:36AM ; [facility] [Z68.25 - Body mass index [B HI] 25.0-25.9, adult] assessment of body mass index Medical Established Patient with Colette Vuong [employer] [facility] [facility] 06/03/2023 Last Documented On 4 9:49AM ; [facility] Nicotine dependence Medical Established Patient with Colette Vuong [employer] [facility] 06/03/2023 Last Documented On 4 9:49AM ; [facility] 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 Medical Established Patient with Colette Vuong [employer] [facility] 06/03/2023 Last Documented On 4 9:49AM ; [facility] Viral hepatitis C Medical Established Patient wi th Colette Vuong [facility] 06/03/2023 Last Documented On 4 9:49AM ; [facility] Visit for: screening for STD Medical Est ablished Patient with Colette Vuong [employer] [facility] 06/03/2023 Last Documented On 4 9:49AM ; [facility] [Z68.24 - Body mass index [B HI] 24.0-24.9, adult] assessment of body mass index Medical Established Patient with Colette Yevgeniy [employer] 05/10/2023 Last Documented On 4 8:24AM ; [facility] Generalized anxiety disorder Medical Est ablished Patient with Colette Vuong [employer] [facility] 05/10/2023 Last Documented On 4 8:24AM ; [facility] Nicotine dependence Medical Established Patient with Colette Vuong [employer] [facility] 05/10/2023 Last Documented On 4 8:24AM ; [facility] Onychomycosis of the toenails Medical Es tablished Patient with Colette Vuong [employer] [facility] 05/10/2023 Last Documented On 4 8:24AM ; [facility] Otogenic otalgia of right ear Medical Es tablished Patient with Colette Vuong [employer] 05/10/2023 Last Documented On 4 8:24AM ; [facility] 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 Medical Established Patient with Colette Vuong [employer] [facility] 05/10/2023 Last Documented On 4 8:24AM ; [facility] Viral hepatitis C Medical Established Patient wi th Colette Vuong [facility] 05/10/2023 Last Documented On 4 8:24AM ; [facility] [Z68.24 - Body mass index [B HI] 24.0-24.9, adult] assessment of body mass index Open Access - Established with Colette Vuong [facility] 04/26/2023 Last Documented On 4 8:20AM ; [facility] Nicotine dependence Open Access - Established wi Colette Vuong [facility] 04/26/2023 Last Documented On 4 8:20AM ; [facility] Otogenic otalgia of right ear Open Acces s - Established with Colette Vuong [facility] 04/26/2023 Last Documented On 4 8:20AM ; [facility] 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 Open Access - Established with Colette Vuong [facility] 04/26/2023 Last Documented On 4 8:20AM ; [facility] Generalized anxiety disorder BH Established Victoria ent with Bri Barrow [facility] 04/12/2023 Last Documented On 4 7:57PM ; [facility] Nicotine dependence Established Patient with Bri Barrow [employer] 04/12/2023 Last Documented On 4 7:57PM ; [facility] [Z68.23 - Body mass index [B HI] 23.0-23.9, adult] assessment of body mass index Medical New Patient with Colette Vuong [employer] [facility] [facility] 04/12/2023 Last Documented On 4 8:31AM ; [facility] Acute otitis media of left ear Medical N ew Patient with Colette Vuong [employer] 04/12/2023 Last Documented On 4 8:31AM ; [facility] Diabetes Risk Test Score was three score 04/12/2023 Medical New Patient with Colette Vuong [employer] [facility] 04/12/2023 Last Documented On 4 8:31AM ; [facility] Nicotine dependence Medical New Patient with Prosper Vuong [employer] 04/12/2023 Last Documented On 4 8:31AM ; [facility] Screening for HIV Medical New Patient with Francois Vuong [employer] 04/12/2023 Last Documented On 4 8:31AM ; [facility] Upper respiratory infection Medical New Patient with Colette Vuong [employer] 04/12/2023 Last Documented On 4 8:31AM ; [facility] Visit for: screening for dig estive system disorders Medical New Patient with Colette Vuong [employer] 04/12/2023 Last Documented On 4 8:31AM ; [facility] Work Phone: [phone]) 316-526505-09-2024 History general Narrative - Reported Includes: Medical History in patient's chart Description Last Updated No previous hospitalizations 07/15/2023 Last Documented On 4 8:36AM ; [facility] No Safety Measures 04/12/2023 Last Documented On 4 7:57PM ; [facility] History of viral hepatitis C 04/12/2023 Last Documented On 4 8:31AM ; [facility] Recent immunization for flu 04/12/2023 Last Documented On 4 8:31AM ; [facility] Work Phone: 1([phone]) 350-782805-09-2024 History general Narrative - Reported Includes: Medical History in patient's chart Description Last Updated No previous hospitalizations 07/15/2023 Last Documented On 4 8:36AM ; [facility] No Safety Measures 04/12/2023 Last Documented On 4 7:57PM ; [facility] History of viral hepatitis C 04/12/2023 Last Documented On 4 8:31AM ; [facility] Recent immunization for flu 04/12/2023 Last Documented On 4 8:31AM ; [facility] Work Phone: 1([phone]) 771-442205-09-2024 History general Narrative - Reported Includes: Medical History in patient's chart Description Last Updated No previous hospitalizations 07/15/2023 Last Documented On 4 8:36AM ; [facility] No Safety Measures 04/12/2023 Last Documented On 4 7:57PM ; [facility] History of viral hepatitis C 04/12/2023 Last Documented On 4 8:31AM ; [facility] Recent immunization for flu 04/12/2023 Last Documented On 4 8:31AM ; [facility] Work Phone: [phone]) 293-385405-09-2024 History general Narrative - Reported Includes: Medical History in patient's chart Description Last Updated No previous hospitalizations 07/15/2023 Last Documented On 4 8:36AM ; [facility] No Safety Measures 04/12/2023 Last Documented On 4 7:57PM ; [facility] History of viral hepatitis C 04/12/2023 Last Documented On 4 8:31AM ; [facility] Recent immunization for flu 04/12/2023 Last Documented On 4 8:31AM ; [facility] Work Phone: 1(381) 904-118105-09-2024 History general Narrative - Reported Includes: Medical History in patient's chart Description Last Updated No previous hospitalizations 07/15/2023 Last Documented On 4 8:36AM ; [facility] No Safety Measures 04/12/2023 Last Documented On 4 7:57PM ; [facility] History of viral hepatitis C 04/12/2023 Last Documented On 4 8:31AM ; [facility] Recent immunization for flu 04/12/2023 Last Documented On 4 8:31AM ; [facility] Work Phone: [phone]) 160-654405-09-2024 Progress note* Progress note Date Encounter Last Documented by 07/15/2023 Medical Established Patient Last documented on 07/16/2023; 8:36 AM, Colette Vuong [employer]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 Care Team - Colette Vuong CNP Health Reminders - Assess BMI satisfied [...] collecting belongings from residence and has informed psychiatric's dept of the situation. Has lack of [...] clothing: No, unable to get needed child & adolescent psychiatrist: No, unable to get needed phone: No, [...] : Not at all. [facility] History of Present illness Narrative* Duran Wilson DO - 07/14/2023 10:30 AM EDT Images from the original note were not included. [facility] [address] [facility] [id number] SUBJECTIVE: Patient ID ([id number]): Raheem Cody Jr. is a 48 y.o. male presents [...] side of the ear. 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 He reports that he used to smoke, [...] Anaphylaxis and Cough Anaphylaxis was listed per [facility]. Current Outpatient Medications Medication Sig [...] tree oiL 100 % oil Apply topically. turmeric-g.rtw-dtwdkjtkp-guauh [id number] mg capsule Take by mouth every morning. [...] limits with a moderate SNHL notch from 1449-4455 Hz Asymmetry noted: Yes, left ear worse Reliability: good Speech Audiometry: SRT/COMMERCIAL SUBCONTRACTOR in good agreement WRS: Right Ear: Excellent (96%) Left Ear: Excellent (100%) RECOMMENDATIONS: Follow up with Dr. Duran Wilson Further testing as deemed medically necessary Benjamin Kimble, [facility]-A Refrigeration Engineering Teacher PHYSICAL EXAMINATION: BP 118/72 Temp 36.2 C [...] [facility] [place] Sensorineural hearing loss (SNHL) of left ear [...] limits with a moderate SNHL notch from 2971-6235 Hz Asymmetry noted: Yes, left ear worse [...] with your dentist. You may also obtain eaew-ovg-jttjkge V oltaren gel. This could be applied [...] this chart were generated using voice recognition [employer] dictation software. Although every effort was made to ensure the accuracy of this automated special services director, some errors in special services director may have occurred. Yonas Cantor CMA 07/14/23 1054 Yonas Cantor CMA 07/14/23 1107 documented in this encounterAdena Pike Medical CenterAIMM Therapeutics [facility] [id number] Instructions* Patient Instructions* Yonas Cantor CMA - 07/14/2023 10:30 AM EDT - Audiogram reviewed and copy provided to patient. Tympanograms are type A bilaterally today. - Right Ear: Hearing sensitivity is within normal limits 250-8000 Hz Left Ear: Hearing sensitivity is within normal limits with a moderate SNHL notch from 6296-7836 Hz Asymmetry noted: Yes, left ear worse [...] with your dentist. You may also obtain mups-qxn-mwumupa V oltaren gel. This could be applied over the jaw joint to work as an anti- inflammatory as well. - Follow up with ENT after MRI is complete to review the results. [facility] History of Present illness Narrative* SERAFIN [...] limits with a moderate SNHL notch from 8424-1289 Hz Asymmetry noted: Yes, left ear worse Reliability: good Speech Audiometry: SRT/COMMERCIAL SUBCONTRACTOR in good agreement WRS: Right Ear: Excellent (96%) Left Ear: Excellent (100%) RECOMMENDATIONS: Follow up with Dr. Garzon Vu Further testing as deemed medically necessary Benjamin Kimble, [employer]-A Refrigeration Engineering Teacher documented in this encounterWayne Hospital04-05-2024 Progress note* Progress note Date Encounter Last Documented by 06/11/2023 Chart Update Last documented on 06/25/2023; 10:17 AM, Colette Vuong CNP; [facility] Tests Blood Analysis: Blood Chemistry: No HEPATITIS C Viral Load 06/11/2023 Hep C - Not Detected. Practice Management Hepatitis C Treatment Started [facility]. [facility]03-28-2024 Instructions Includes: Instructions for all patient encounters Education and Decision Aids were provided during visit for: Discussed nutritional needs teach healthy choices including fruits and vegetables Last Documented On 4 1:14PM ; [facility] Patient education about a pr oper diet Last Documented On 4 1:14PM ; [facility] Discussed concerns about exe rcise : promote physical activity Last Documented On 4 1:14PM ; [facility] Discussed nutritional needs teach healthy choices including fruits and vegetables Last Documented On 4 1:17PM ; [facility] Patient education about a pr oper diet Last Documented On 4 1:17PM ; [facility] Discussed concerns about exe rcise : promote physical activity Last Documented On 4 1:17PM ; [facility] Discussed concerns about uns afe sexual practices Last Documented On 4 1:29PM ; [facility] Discussed concerns about tob acco use Last Documented On 4 1:29PM ; [facility] Discussed concerns about alc ohol use Last Documented On 4 1:29PM ; [facility] Discussed concerns about ill icit drug use Last Documented On 4 1:29PM ; [facility] Patient has agreed to visits every 4 weeks Last Documented On 4 1:29PM ; [facility] Patient aware not to share n eedles, razors, toothbrushes, or nail clippers Last Documented On 4 1:29PM ; [facility] Counseled on medication and herbal product interactions Last Documented On 4 1:29PM ; [facility] Patient is treatment naive Last Documented On 4 1:29PM ; [facility] Patient has an estimated lif e expectancy of 12 months or greater. Last Documented On 4 1:29PM ; [facility] Patient counseled on how to take Hepatitis C Medications Last Documented On 4 1:29PM ; [facility] Patient agreed to labs (CBC, CMP, HCV) every 4 weeks Last Documented On 4 1:29PM ; [facility] Discussed nutritional needs teach healthy choices including fruits and vegetables Last Documented On 4 2:43PM ; [facility] Patient education about a pr oper diet Last Documented On 4 2:43PM ; [facility] Discussed concerns about exe rcise : promote physical activity Last Documented On 4 2:43PM ; [facility] *[facility] offered active and supp ortive listening, normalized emotions and feelings, and processed ~current stressors. ~*Reviewed relapse prevention skills and positive support activities Last Documented On 4 7:56PM ; [facility] Discussed nutritional needs teach healthy choices including fruits and vegetables Last Documented On 4 1:21PM ; [facility] Patient education about a pr oper diet Last Documented On 4 1:21PM ; [facility] Discussed concerns about exe rcise : promote physical activity Last Documented On 4 1:21PM ; [facility] Patient has agreed to visits every 4 weeks Last Documented On 4 1:59PM ; [facility] Patient aware not to share n eedles, razors, toothbrushes, or nail clippers Last Documented On 4 1:59PM ; [facility] Counseled on medication and herbal product interactions Last Documented On 4 1:59PM ; [facility] Patient is treatment naive Last Documented On 4 1:59PM ; [facility] Patient has an estimated lif e expectancy of 12 months or greater. Last Documented On 4 1:59PM ; [facility] Patient counseled on how to take Hepatitis C Medications Last Documented On 4 1:59PM ; [facility] Patient agreed to labs (CBC, CMP, HCV) every 4 weeks Last Documented On 4 1:59PM ; [facility] Work Phone: 1(992) 389-393303-28-2024 Instructions Includes: Instructions for all patient encounters Education and Decision Aids were provided during visit for: Discussed nutritional needs teach healthy choices including fruits and vegetables Last Documented On 4 1:14PM ; [facility] Patient education about a pr oper diet Last Documented On 4 1:14PM ; [facility] Discussed concerns about exe rcise : promote physical activity Last Documented On 4 1:14PM ; [facility] Discussed nutritional needs teach healthy choices including fruits and vegetables Last Documented On 4 1:17PM ; [facility] Patient education about a pr oper diet Last Documented On 4 1:17PM ; [facility] Discussed concerns about exe rcise : promote physical activity Last Documented On 4 1:17PM ; [facility] Discussed concerns about uns afe sexual practices Last Documented On 4 1:29PM ; [facility] Discussed concerns about tob acco use Last Documented On 4 1:29PM ; [facility] Discussed concerns about alc ohol use Last Documented On 4 1:29PM ; [facility] Discussed concerns about ill icit drug use Last Documented On 4 1:29PM ; [facility] Patient has agreed to visits every 4 weeks Last Documented On 4 1:29PM ; [facility] Patient aware not to share n eedles, razors, toothbrushes, or nail clippers Last Documented On 4 1:29PM ; [facility] Counseled on medication and herbal product interactions Last Documented On 4 1:29PM ; [facility] Patient is treatment naive Last Documented On 4 1:29PM ; [facility] Patient has an estimated lif e expectancy of 12 months or greater. Last Documented On 4 1:29PM ; [facility] Patient counseled on how to take Hepatitis C Medications Last Documented On 4 1:29PM ; [facility] Patient agreed to labs (CBC, CMP, HCV) every 4 weeks Last Documented On 4 1:29PM ; [facility] Discussed nutritional needs teach healthy choices including fruits and vegetables Last Documented On 4 2:43PM ; [facility] Patient education about a pr oper diet Last Documented On 4 2:43PM ; [facility] Discussed concerns about exe rcise : promote physical activity Last Documented On 4 2:43PM ; [facility] *[facility] offered active and supp ortive listening, normalized emotions and feelings, and processed ~current stressors. ~*Reviewed relapse prevention skills and positive support activities Last Documented On 4 7:56PM ; [facility] Discussed nutritional needs teach healthy choices including fruits and vegetables Last Documented On 4 1:21PM ; [facility] Patient education about a pr oper diet Last Documented On 4 1:21PM ; [facility] Discussed concerns about exe rcise : promote physical activity Last Documented On 4 1:21PM ; [facility] Patient has agreed to visits every 4 weeks Last Documented On 4 1:59PM ; [facility] Patient aware not to share n eedles, razors, toothbrushes, or nail clippers Last Documented On 4 1:59PM ; [facility] Counseled on medication and herbal product interactions Last Documented On 4 1:59PM ; [facility] Patient is treatment naive Last Documented On 4 1:59PM ; [facility] Patient has an estimated lif e expectancy of 12 months or greater. Last Documented On 4 1:59PM ; [facility] Patient counseled on how to take Hepatitis C Medications Last Documented On 4 1:59PM ; [facility] Patient agreed to labs (CBC, CMP, HCV) every 4 weeks Last Documented On 4 1:59PM ; [facility] Work Phone: 1(271) 525-960403-28-2024 Evaluation note Includes: Assessments for all patient encounters Findings Encounter Date [Z68.25 - Body mass index [B HI] 25.0-25.9, adult] assessment of body mass index Medical Established Patient with Colette Vuong [facility] 06/03/2023 Last Documented On 4 9:49AM ; [facility] Nicotine dependence Medical Established Patient with Colette Vuong [facility] 06/03/2023 Last Documented On 4 9:49AM ; [facility] 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 Medical Established Patient with Colette Vuong [facility] 06/03/2023 Last Documented On 4 9:49AM ; [facility] Viral hepatitis C Medical Established Patient wi th Colette Vuong [facility] 06/03/2023 Last Documented On 4 9:49AM ; [facility] Visit for: screening for STD Medical Est ablished Patient with Colette Vuong [facility] 06/03/2023 Last Documented On 4 9:49AM ; [facility] [Z68.24 - Body mass index [B HI] 24.0-24.9, adult] assessment of body mass index Medical Established Patient with Colette Vuong [employer]STRUCTOR TRAIN[employer] CANINE SERVICE 05/10/2023 Last Documented On 4 8:24AM ; [facility] Generalized anxiety disorder Medical Est ablished Patient with Colette Vuong [facility] 05/10/2023 Last Documented On 4 8:24AM ; [facility] Nicotine dependence Medical Established Patient with Colette Vuong 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 TRAIN[employer] CANINE SERVICE 05/10/2023 Last Documented On 4 8:24AM ; [facility] Onychomycosis of the toenails Medical Es tablished Patient with Colette Vuong INSTRUCTOR TRAIN[employer] CANINE SERVICE 05/10/2023 Last Documented On 4 8:24AM ; [facility] Otogenic otalgia of right ear Medical Es tablished Patient with Colette Vuong INSTRUCTOR TRAIN[employer] CANINE SERVICE 05/10/2023 Last Documented On 4 8:24AM ; [facility] 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 Medical Established Patient with Colette Vuong INSTRUCTOR TRAINER CANINE SERVICE 05/10/2023 Last Documented On 4 8:24AM ; [facility] Viral hepatitis C Medical Established Patient wi th Colette Vuong [facility] 05/10/2023 Last Documented On 4 8:24AM ; [facility] [Z68.24 - Body mass index [B HI] 24.0-24.9, adult] assessment of body mass index Open Access - Established with Colette Vuong [facility] 04/26/2023 Last Documented On 4 8:20AM ; [facility] Nicotine dependence Open Access - Established wi Colette Vuong [facility] 04/26/2023 Last Documented On 4 8:20AM ; [facility] Otogenic otalgia of right ear Open Acces s - Established with Colette Vuong [facility] 04/26/2023 Last Documented On 4 8:20AM ; [facility] 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 Open Access - Established with Colette Vuong [facility] 04/26/2023 Last Documented On 4 8:20AM ; [facility] Generalized anxiety disorder BH Established [place] with Bri Barrow [facility] 04/12/2023 Last Documented On 4 7:57PM ; [facility] Nicotine dependence BH Established Patient with Bri Barrow [employer] 04/12/2023 Last Documented On 4 7:57PM ; [facility] [Z68.23 - Body mass index [B HI] 23.0-23.9, adult] assessment of body mass index Medical New Patient with Colette Vuong [employer] TRA[employer] CANINE SERVICE 04/12/2023 Last Documented On 4 8:31AM ; [facility] Acute otitis media of left ear Medical N ew Patient with Colette Vuong INSTRUCTOR TRAIN[employer] CANINE SERVICE 04/12/2023 Last Documented On 4 8:31AM ; [facility] Diabetes Risk Test Score was three score 04/12/2023 Medical New Patient with Colette Vuong [employer]STRUCTOR TRA[employer] CANINE SERVICE 04/12/2023 Last Documented On 4 8:31AM ; [facility] Nicotine dependence Medical New Patient with Prosper Vuong INSTRUCTOR TRAINER CANINE SERVICE 04/12/2023 Last Documented On 4 8:31AM ; [facility] Screening for HIV Medical New Patient with Francois Vuong INSTRUCTOR TRAINER CANINE SERVICE 04/12/2023 Last Documented On 4 8:31AM ; [facility] Upper respiratory infection Medical New Patient with Colette Vuong [facility] 04/12/2023 Last Documented On 4 8:31AM ; [facility] Visit for: screening for dig estive system disorders Medical New Patient with Colette Vuong [facility] 04/12/2023 Last Documented On 4 8:31AM ; [facility] Work Phone: 1(498) 319-828603-28-2024 Evaluation note Includes: Assessments for all patient encounters Findings Encounter Date [Z68.25 - Body mass index [B HI] 25.0-25.9, adult] assessment of body mass index Medical Established Patient with Colette Vuong [facility] 06/03/2023 Last Documented On 4 9:49AM ; [facility] Nicotine dependence Medical Established Patient with Colette Vuong [facility] 06/03/2023 Last Documented On 4 9:49AM ; [facility] 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 Medical Established Patient with Colette Vuong [employer]STRUCTOR TRAIN[employer] CANINE SERVICE 06/03/2023 Last Documented On 4 9:49AM ; [facility] Viral hepatitis C Medical Established Patient wi th Colette Vuong [facility] 06/03/2023 Last Documented On 4 9:49AM ; [facility] Visit for: screening for STD Medical Est ablished Patient with Colette Vuong INSTRUCTOR TRAINER CANINE SERVICE 06/03/2023 Last Documented On 4 9:49AM ; [facility] [Z68.24 - Body mass index [B HI] 24.0-24.9, adult] assessment of body mass index Medical Established Patient with Colette Vuong INSTRUCTOR TRAINER CANINE SERVICE 05/10/2023 Last Documented On 4 8:24AM ; [facility] Generalized anxiety disorder Medical Est ablished Patient with Colette Yevgeniy INSTRUCTOR TRAINER CANINE SERVICE 05/10/2023 Last Documented On 4 8:24AM ; [facility] Nicotine dependence Medical Established Patient with Colette Yevgeniy [employer]STRU[employer] TRA[employer] CANINE SERVICE 05/10/2023 Last Documented On 4 8:24AM ; [facility] Onychomycosis of the toenails Medical Es tablished Patient with Colette Yevgeniy [employer]STRU[employer] TRA[employer] CANINE SERVICE 05/10/2023 Last Documented On 4 8:24AM ; [facility] Otogenic otalgia of right ear Medical Es tablished Patient with Colette Yevgeniy INSTRUCTOR TRAINER CANINE SERVICE 05/10/2023 Last Documented On 4 8:24AM ; [facility] 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 Medical Established Patient with Colette Vuong INSTRUCTOR TRAIN[employer] CANINE SERVICE 05/10/2023 Last Documented On 4 8:24AM ; [facility] Viral hepatitis C Medical Established Patient wi th Colette Vuong [employer]STRU[employer] TRA[employer] CANINE SERVICE 05/10/2023 Last Documented On 4 8:24AM ; [facility] [Z68.24 - Body mass index [B HI] 24.0-24.9, adult] assessment of body mass index Open Access - Established with Colette Vuong [employer]STRUCTOR TRAIN[employer] CANINE SERVICE 04/26/2023 Last Documented On 4 8:20AM ; [facility] Nicotine dependence Open Access - Established wi th Colette Yevgeniy INSTRUCTOR TRAINER CANINE SERVICE 04/26/2023 Last Documented On 4 8:20AM ; [facility] Otogenic otalgia of right ear Open Acces s - Established with Colette Yevgeniy INSTRUCTOR TRAINER CANINE SERVICE 04/26/2023 Last Documented On 4 8:20AM ; [facility] 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 Open Access - Established with Colette Yevgeniy INSTRUCTOR TRAINER CANINE SERVICE 04/26/2023 Last Documented On 4 8:20AM ; [facility] Generalized anxiety disorder BH Established [place] with Bri WARE 04/12/2023 Last Documented On 4 7:57PM ; [facility] Nicotine dependence BH Established Patient with Bri Barrow [employer] 04/12/2023 Last Documented On 4 7:57PM ; [facility] [Z68.23 - Body mass index [B HI] 23.0-23.9, adult] assessment of body mass index Medical New Patient with Colette Vuong INSTRUCTOR TRAINER CANINE SERVICE 04/12/2023 Last Documented On 4 8:31AM ; [facility] Acute otitis media of left ear Medical N ew Patient with Colette Vuong INSTRUCTOR TRAINER CANINE SERVICE 04/12/2023 Last Documented On 4 8:31AM ; [facility] Diabetes Risk Test Score was three score 04/12/2023 Medical New Patient with Colette Vuong INSTRUCTOR TRAINER CANINE SERVICE 04/12/2023 Last Documented On 4 8:31AM ; [facility] Nicotine dependence Medical New Patient with Prosper Vuong INSTRUCTOR TRAINER CANINE SERVICE 04/12/2023 Last Documented On 4 8:31AM ; [facility] Screening for HIV Medical New Patient with Francois Vuong INSTRUCTOR TRAINER CANINE SERVICE 04/12/2023 Last Documented On 4 8:31AM ; [facility] Upper respiratory infection Medical New Patient with Colette Vuong INSTRUCTOR TRAINER CANINE SERVICE 04/12/2023 Last Documented On 4 8:31AM ; [facility] Visit for: screening for dig estive system disorders Medical New Patient with Colette Vuong INSTRUCTOR TRAINER CANINE SERVICE 04/12/2023 Last Documented On 4 8:31AM ; [facility] Work Phone: 1(435) 345-724203-28-2024 Progress note* Progress note Date Encounter Last Documented by 06/03/2023 Medical Established Patient Last documented on 06/07/2023; 9:49 AM, Colette Vuong INSTRUCTOR TRAINER CANINE SERVICE; [facility] Active Problems & Conditions - F41.1 - [...] 06/03/2023 01:10 pm BP-Sitting L108/76 mmHg Pulse Rate-Xqpqjpy85 bpm Nmuvjh79 in Pflpzz432 lbs Body Mass Index25.1 kg/m2 Body Surface Area1.9 m2 Oxygen Vfjgedziqh42 % Vital Signs: - Systolic blood pressure [...] transmiss Outside Labs/Microbiology: All 3 Urine Test Xzoffzamm-Ovpbzwapb-Feyngiadqgo EndCited StartCited- Tinea unguium Ciclopirox 8% mL [...] at this time. Care Team - Colette Vuong CNP Health Reminders - Assess BMI satisfied 06/03/2023. - Assess Tobacco Use satisfied 06/03/2023. - Follow Up Plan BMI Management satisfied 06/03/2023. [facility]03-04-2024 Instructions Includes: Instructions for all patient encounters Education and Decision Aids were provided during visit for: Discussed nutritional needs teach healthy choices including fruits and vegetables Last Documented On 4 1:17PM ; [facility] Patient education about a pr oper diet Last Documented On 4 1:17PM ; [facility] Discussed concerns about exe rcise : promote physical activity Last Documented On 4 1:17PM ; [facility] Discussed concerns about uns afe sexual practices Last Documented On 4 1:29PM ; [facility] Discussed concerns about tob acco use Last Documented On 4 1:29PM ; [facility] Discussed concerns about alc ohol use Last Documented On 4 1:29PM ; [facility] Discussed concerns about ill icit drug use Last Documented On 4 1:29PM ; [facility] Patient has agreed to visits every 4 weeks Last Documented On 4 1:29PM ; [facility] Patient aware not to share n eedles, razors, toothbrushes, or nail clippers Last Documented On 4 1:29PM ; [facility] Counseled on medication and herbal product interactions Last Documented On 4 1:29PM ; [facility] Patient is treatment naive Last Documented On 4 1:29PM ; [facility] Patient has an estimated lif e expectancy of 12 months or greater. Last Documented On 4 1:29PM ; [facility] Patient counseled on how to take Hepatitis C Medications Last Documented On 4 1:29PM ; [facility] Patient agreed to labs (CBC, CMP, HCV) every 4 weeks Last Documented On 4 1:29PM ; [facility] Discussed nutritional needs teach healthy choices including fruits and vegetables Last Documented On 4 2:43PM ; [facility] Patient education about a pr oper diet Last Documented On 4 2:43PM ; [facility] Discussed concerns about exe rcise : promote physical activity Last Documented On 4 2:43PM ; [facility] *[facility] offered active and supp ortive listening, normalized emotions and feelings, and processed ~current stressors. ~*Reviewed relapse prevention skills and positive support activities Last Documented On 4 7:56PM ; [facility] Discussed nutritional needs teach healthy choices including fruits and vegetables Last Documented On 4 1:21PM ; [facility] Patient education about a pr oper diet Last Documented On 4 1:21PM ; [facility] Discussed concerns about exe rcise : promote physical activity Last Documented On 4 1:21PM ; [facility] Patient has agreed to visits every 4 weeks Last Documented On 4 1:59PM ; [facility] Patient aware not to share n eedles, razors, toothbrushes, or nail clippers Last Documented On 4 1:59PM ; [facility] Counseled on medication and herbal product interactions Last Documented On 4 1:59PM ; [facility] Patient is treatment naive Last Documented On 4 1:59PM ; [facility] Patient has an estimated lif e expectancy of 12 months or greater. Last Documented On 4 1:59PM ; [facility] Patient counseled on how to take Hepatitis C Medications Last Documented On 4 1:59PM ; [facility] Patient agreed to labs (CBC, CMP, HCV) every 4 weeks Last Documented On 4 1:59PM ; [facility] Work Phone: 1(119) 198-417603-04-2024 Evaluation note Includes: Assessments for all patient encounters Findings Encounter Date [Z68.24 - Body mass index [B HI] 24.0-24.9, adult] assessment of body mass index Medical Established Patient with Colette Vuong [employer] 05/10/2023 Last Documented On 4 8:24AM ; [facility] Generalized anxiety disorder Medical Est ablished Patient with Colette Vuong [facility] 05/10/2023 Last Documented On 4 8:24AM ; [facility] Nicotine dependence Medical Established Patient with Colette Vuong [employer] 05/10/2023 Last Documented On 4 8:24AM ; [facility] Onychomycosis of the toenails Medical Es tablished Patient with Colette Vuong [employer] 05/10/2023 Last Documented On 4 8:24AM ; [facility] Otogenic otalgia of right ear Medical Es tablished Patient with Colette Vuong [employer] 05/10/2023 Last Documented On 4 8:24AM ; [facility] 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 Medical Established Patient with Colette Vuong [employer] 05/10/2023 Last Documented On 4 8:24AM ; [facility] Viral hepatitis C Medical Established Patient wi th Colette Vuong [facility] 05/10/2023 Last Documented On 4 8:24AM ; [facility] [Z68.24 - Body mass index [B HI] 24.0-24.9, adult] assessment of body mass index Open Access - Established with Colette Vuong [employer] 04/26/2023 Last Documented On 4 8:20AM ; [facility] Nicotine dependence Open Access - Established [facility] Colette Vuong [facility] 04/26/2023 Last Documented On 4 8:20AM ; [facility] Otogenic otalgia of right ear Open Acces s - Established with Colette Vuong [facility] 04/26/2023 Last Documented On 4 8:20AM ; [facility] 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 Open Access - Established with Colette Vuong [facility] 04/26/2023 Last Documented On 4 8:20AM ; [facility] Generalized anxiety disorder BH Established Victoria ent with Bri Barrow [facility] 04/12/2023 Last Documented On 4 7:57PM ; [facility] Nicotine dependence BH Established Patient with Brinatalie Barrow [facility] 04/12/2023 Last Documented On 4 7:57PM ; [facility] [Z68.23 - Body mass index [B HI] 23.0-23.9, adult] assessment of body mass index Medical New Patient with Colette Vuong [employer] 04/12/2023 Last Documented On 4 8:31AM ; [facility] Acute otitis media of left ear Medical N ew Patient with Colette Vuong [facility] 04/12/2023 Last Documented On 4 8:31AM ; [facility] Diabetes Risk Test Score was three score 04/12/2023 Medical New Patient with Colette Vuong [employer] 04/12/2023 Last Documented On 4 8:31AM ; [facility] Nicotine dependence Medical New Patient with Prosper jewell Yevgeniy [facility] 04/12/2023 Last Documented On 4 8:31AM ; [facility] Screening for HIV Medical New Patient with Francois Vuong [employer] 04/12/2023 Last Documented On 4 8:31AM ; [facility] Upper respiratory infection Medical New Patient with Colette Vuong CNP 04/12/2023 Last Documented On 4 8:31AM ; [facility] Visit for: screening for dig estive system disorders Medical New Patient with Colette Vuong CNP 04/12/2023 Last Documented On 4 8:31AM ; [facility] Work Phone: 1([phone]) 329-771403-04-2024 Progress note* Progress note Date Encounter Last Documented by 05/10/2023 Medical Established Patient Last documented on 05/11/2023; 8:24 AM, Colette Vuong [employer]; [facility] Active Problems & Conditions - F41.1 - [...] reply or call from [facility]. Went to [place] to have teeth pulled- to [facility]. He had 9 teeth pulled at once. Patient is also requesting to have claritin prescribed. He has been having some allergy symptoms. Reports that he feels dehydrated from the neck up . Patient keep relating all symptoms to an incident in [place] in February 2022 when he relapsed on [...] 05/10/2023 01:13 pm BP-Sitting R114/71 mmHg Pulse Rate-Urgtmli16 bpm Eoisgy66 in Oslbps255 lbs Body Mass Index24.5 kg/m2 Body Surface Area1.9 m2 Oxygen Ogzrfklwpt59 % Vital Signs: - Systolic blood pressure [...] - Avoid herbal medicines. - Consultation with wind energy mechanic or classroom monitor. Vaccinations - Did not receive dose of [...] at this time. Care Team - Colette Vuong CNP Health Reminders - Assess BMI satisfied 05/10/2023. - Assess Tobacco Use satisfied 05/10/2023. - Smoking & Tobacco Cessation Intervention and Counseling satisfied 05/10/2023. User Defined 1 Not planning a in the next year. [facility]03-04-2024 Reason for referral (narrative)* Date Encounter Description Provider Reason for Referral 05/10/23 Medical Established Patient Colette Vuong CNP Consultation with hepatologi st or classroom monitor [facility] Work Phone: 1(732) 666-552502-22-2024 Progress note* Progress note Date Encounter Last Documented by 04/29/2023 Chart Update Last documented on 04/30/2023; 4:21 PM, Colette Vuong CNP; [facility] Plan StartCited - Chronic viral hepatitis C Epclusa 400-100 MG tablet TAKE 1 TABLET BY MOUTH ONCE DAILY, 28 days, 2 refills EndCited Labs Reviewed. Epclusa sent to our pharmacy. Will initiate PA process. Andrés Vargas PharmD [facility]02-19-2024 Instructions Includes: Instructions for all patient encounters Education and Decision Aids were provided during visit for: Discussed nutritional needs teach healthy choices including fruits and vegetables Last Documented On 4 2:43PM ; [facility] Patient education about a pr oper diet Last Documented On 4 2:43PM ; [facility] Discussed concerns about exe rcise : promote physical activity Last Documented On 4 2:43PM ; [facility] *[facility] offered active and supp ortive listening, normalized emotions and feelings, and processed ~current stressors. ~*Reviewed relapse prevention skills and positive support activities Last Documented On 4 7:56PM ; [facility] Discussed nutritional needs teach healthy choices including fruits and vegetables Last Documented On 4 1:21PM ; [facility] Patient education about a pr oper diet Last Documented On 4 1:21PM ; [facility] Discussed concerns about exe rcise : promote physical activity Last Documented On 4 1:21PM ; [facility] Patient has agreed to visits every 4 weeks Last Documented On 4 1:59PM ; [facility] Patient aware not to share n eedles, razors, toothbrushes, or nail clippers Last Documented On 4 1:59PM ; [facility] Counseled on medication and herbal product interactions Last Documented On 4 1:59PM ; [facility] Patient is treatment naive Last Documented On 4 1:59PM ; [facility] Patient has an estimated lif e expectancy of 12 months or greater. Last Documented On 4 1:59PM ; [facility] Patient counseled on how to take Hepatitis C Medications Last Documented On 4 1:59PM ; [facility] Patient agreed to labs (CBC, CMP, HCV) every 4 weeks Last Documented On 4 1:59PM ; [facility] Work Phone: 1(716) 811-379202-19-2024 Instructions Includes: Instructions for all patient encounters Education and Decision Aids were provided during visit for: Discussed nutritional needs teach healthy choices including fruits and vegetables Last Documented On 4 2:43PM ; [facility] Patient education about a pr oper diet Last Documented On 4 2:43PM ; [facility] Discussed concerns about exe rcise : promote physical activity Last Documented On 4 2:43PM ; [facility] *[facility] offered active and supp ortive listening, normalized emotions and feelings, and processed ~current stressors. ~*Reviewed relapse prevention skills and positive support activities Last Documented On 4 7:56PM ; [facility] Discussed nutritional needs teach healthy choices including fruits and vegetables Last Documented On 4 1:21PM ; [facility] Patient education about a pr oper diet Last Documented On 4 1:21PM ; [facility] Discussed concerns about exe rcise : promote physical activity Last Documented On 4 1:21PM ; [facility] Patient has agreed to visits every 4 weeks Last Documented On 4 1:59PM ; [facility] Patient aware not to share n eedles, razors, toothbrushes, or nail clippers Last Documented On 4 1:59PM ; [facility] Counseled on medication and herbal product interactions Last Documented On 4 1:59PM ; [facility] Patient is treatment naive Last Documented On 4 1:59PM ; [facility] Patient has an estimated lif e expectancy of 12 months or greater. Last Documented On 4 1:59PM ; [facility] Patient counseled on how to take Hepatitis C Medications Last Documented On 4 1:59PM ; [facility] Patient agreed to labs (CBC, CMP, HCV) every 4 weeks Last Documented On 4 1:59PM ; [facility] Work Phone: 1([phone]) 809-831302-19-2024 Evaluation note Includes: Assessments for all patient encounters Findings Encounter Date [Z68.24 - Body mass index [B HI] 24.0-24.9, adult] assessment of body mass index Open Access - Established with Colette Vuong CNP 04/26/2023 Last Documented On 4 8:20AM ; [facility] Nicotine dependence Open Access - Established wi th Colette Vuong CNP 04/26/2023 Last Documented On 4 8:20AM ; [facility] Otogenic otalgia of right ear Open Acces s - Established with Colette Vuong CNP 04/26/2023 Last Documented On 4 8:20AM ; [facility] 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 Open Access - Established with Colette Vuong [employer] 04/26/2023 Last Documented On 4 8:20AM ; [facility] Generalized anxiety disorder Established Victoria ent with Bri Barrow [employer] 04/12/2023 Last Documented On 4 7:57PM ; [facility] Nicotine dependence Established Patient with Bri Barrow [employer] 04/12/2023 Last Documented On 4 7:57PM ; [facility] [Z68.23 - Body mass index [B HI] 23.0-23.9, adult] assessment of body mass index Medical New Patient with Colette Vuong [employer] 04/12/2023 Last Documented On 4 8:31AM ; [facility] Acute otitis media of left ear Medical N ew Patient with Colette Vuong [employer] 04/12/2023 Last Documented On 4 8:31AM ; [facility] Diabetes Risk Test Score was three score 04/12/2023 Medical New Patient with Colette Vuong [employer] 04/12/2023 Last Documented On 4 8:31AM ; [facility] Nicotine dependence Medical New Patient with Prosper Vuong [employer] 04/12/2023 Last Documented On 4 8:31AM ; [facility] Screening for HIV Medical New Patient with Francois Vuong [employer] 04/12/2023 Last Documented On 4 8:31AM ; [facility] Upper respiratory infection Medical New Patient with Colette Vuong [employer] 04/12/2023 Last Documented On 4 8:31AM ; [facility] Visit for: screening for dig estive system disorders Medical New Patient with Colette Vuong [employer] 04/12/2023 Last Documented On 4 8:31AM ; [facility] Work Phone: 1(866) 206-433202-19-2024 Evaluation note Includes: Assessments for all patient encounters Findings Encounter Date [Z68.24 - Body mass index [B HI] 24.0-24.9, adult] assessment of body mass index Open Access - Established with Colette Vuong [employer] 04/26/2023 Last Documented On 4 8:20AM ; [facility] Nicotine dependence Open Access - Established wi th Colette Vuong [employer] 04/26/2023 Last Documented On 4 8:20AM ; [facility] Otogenic otalgia of right ear Open Acces s - Established with Colette Vuong [employer] 04/26/2023 Last Documented On 4 8:20AM ; [facility] 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 Open Access - Established with Colette Vuong [employer] 04/26/2023 Last Documented On 4 8:20AM ; [facility] Generalized anxiety disorder BH Established Victoria ent with Brinatalie Barrow [facility] 04/12/2023 Last Documented On 4 7:57PM ; [facility] Nicotine dependence Established Patient with Bri Barrow [employer] 04/12/2023 Last Documented On 4 7:57PM ; [facility] [Z68.23 - Body mass index [B HI] 23.0-23.9, adult] assessment of body mass index Medical New Patient with Colette Vuong [employer] 04/12/2023 Last Documented On 4 8:31AM ; [facility] Acute otitis media of left ear Medical N ew Patient with Colette Vuong [employer] 04/12/2023 Last Documented On 4 8:31AM ; [facility] Diabetes Risk Test Score was three score 04/12/2023 Medical New Patient with Colette Vuong [employer] 04/12/2023 Last Documented On 4 8:31AM ; [facility] Nicotine dependence Medical New Patient with Prosper Vuong [employer] 04/12/2023 Last Documented On 4 8:31AM ; [facility] Screening for HIV Medical New Patient with Francois Vuong [employer] 04/12/2023 Last Documented On 4 8:31AM ; [facility] Upper respiratory infection Medical New Patient with Colette Vuong [employer] 04/12/2023 Last Documented On 4 8:31AM ; [facility] Visit for: screening for dig estive system disorders Medical New Patient with Colette Vuong KARUNA 04/12/2023 Last Documented On 8:31AM ; [facility] Work Phone: 1([phone]) 551-394302-19-2024 Progress note* Progress note Date Encounter Last Documented by 04/26/2023 Open Access - Established Last d ocumented on 04/27/2023; 8:20 AM, Colette Vuong [employer]; [facility] Active Problems & Conditions - F41.1 - [...] 04/26/2023 02:35 pm BP-Sitting L115/73 mmHg Pulse Rate-Rmivwgp98 bpm Erjuay81 in Xrolgv602 lbs Body Mass Index24.5 kg/m2 Body Surface Area1.9 m2 Oxygen Azdkzmcwrd12 % Vital Signs: - Systolic blood pressure [...] sent to [facility]. Care Team - Colette Vuong CNP Health Reminders - Assess BMI satisfied 04/26/2023. - Assess Tobacco Use satisfied 04/26/2023. - Smoking & Tobacco Cessation Intervention and Counseling satisfied 04/26/2023. User Defined 1 Not planning a in the next year. [facility]02-05-2024 Evaluation note Includes: Assessments for all patient encounters Findings Encounter Date Generalized anxiety disorder Established Victoria ent with Bri Barrow [employer] 04/12/2023 Last Documented On 4 7:57PM ; [facility] Nicotine dependence BH Established Patient with Bri Barrow [employer] 04/12/2023 Last Documented On 4 7:57PM ; [facility] [Z68.23 - Body mass index [B HI] 23.0-23.9, adult] assessment of body mass index Medical New Patient with Colette Vuong [employer] 04/12/2023 Last Documented On 4 2:11PM ; [facility] Acute otitis media of left ear Medical N ew Patient with Colette Yevgeniy [employer] 04/12/2023 Last Documented On 4 2:11PM ; [facility] Diabetes Risk Test Score was three score 04/12/2023 Medical New Patient with Colette Vuong [employer] 04/12/2023 Last Documented On 4 2:11PM ; [facility] Nicotine dependence Medical New Patient with Prosper jewell Yevgeniy [employer] 04/12/2023 Last Documented On 4 2:11PM ; [facility] Upper respiratory infection Medical New Patient with Colette Yevgeniy [employer] 04/12/2023 Last Documented On 4 2:11PM ; [facility] Visit for: screening for dig estive system disorders Medical New Patient with Colette Vuong [employer] 04/12/2023 Last Documented On 4 2:11PM ; [facility] Work Phone: 1([phone]) 807-337502-05-2024 Evaluation note Includes: Assessments for all patient encounters Findings Encounter Date Generalized anxiety disorder BH Established Victoria ent with Bri Barrow [employer] 04/12/2023 Last Documented On 4 7:57PM ; [facility] Nicotine dependence Established Patient with Bri Barrow [employer] 04/12/2023 Last Documented On 4 7:57PM ; [facility] [Z68.23 - Body mass index [B HI] 23.0-23.9, adult] assessment of body mass index Medical New Patient with Colette Vuong [employer] 04/12/2023 Last Documented On 4 10:55PM ; [facility] Acute otitis media of left ear Medical N ew Patient with Colette Vuong [employer] 04/12/2023 Last Documented On 4 10:55PM ; [facility] Diabetes Risk Test Score was three score 04/12/2023 Medical New Patient with Colette Vuong [employer] 04/12/2023 Last Documented On 4 10:55PM ; [facility] Nicotine dependence Medical New Patient with Prosper Vuong [employer] 04/12/2023 Last Documented On 4 10:55PM ; [facility] Upper respiratory infection Medical New Patient with Colette Vuong [employer] 04/12/2023 Last Documented On 4 10:55PM ; [facility] Visit for: screening for dig estive system disorders Medical New Patient with Colette Vuong [employer] 04/12/2023 Last Documented On 4 10:55PM ; [facility] Work Phone: 1([phone]) 671-546102-05-2024 Evaluation note Includes: Assessments for all patient encounters Findings Encounter Date Generalized anxiety disorder Established Victoria ent with Bri Barrow [employer] 04/12/2023 Last Documented On 4 7:57PM ; [facility] Nicotine dependence Established Patient with Bri Barrow [employer] 04/12/2023 Last Documented On 4 7:57PM ; [facility] [Z68.23 - Body mass index [B HI] 23.0-23.9, adult] assessment of body mass index Medical New Patient with Colette Vuong [employer] 04/12/2023 Last Documented On 4 8:31AM ; [facility] Acute otitis media of left ear Medical N ew Patient with Colette Vuong [employer]STRUCTOR TRA[employer] SERVICE 04/12/2023 Last Documented On 4 8:31AM ; [facility] Diabetes Risk Test Score was three score 04/12/2023 Medical New Patient with Colette Vuong [employer] 04/12/2023 Last Documented On 4 8:31AM ; [facility] Nicotine dependence Medical New Patient with Prosper Vuong [employer] 04/12/2023 Last Documented On 4 8:31AM ; [facility] Screening for HIV Medical New Patient with Francois Vuong [employer] 04/12/2023 Last Documented On 4 8:31AM ; [facility] Upper respiratory infection Medical New Patient with Colette Vuong [employer] 04/12/2023 Last Documented On 4 8:31AM ; [facility] Visit for: screening for dig estive system disorders Medical New Patient with Colette Vuong [employer] SERV[employer] 04/12/2023 Last Documented On 4 8:31AM ; [facility] Work Phone: 1([phone]) 769-463902-05-2024 History general Narrative - Reported Includes: Medical History in patient's chart Description Last Updated No Safety Measures 04/12/2023 Last Documented On 4 7:57PM ; [facility] Work Phone: 1(191) 471-840202-05-2024 History general Narrative - Reported Includes: Medical History in patient's chart Description Last Updated No Safety Measures 04/12/2023 Last Documented On 4 7:57PM ; [facility] History of viral hepatitis C 04/12/2023 Last Documented On 4 10:55PM ; [facility] Recent immunization for flu 04/12/2023 Last Documented On 4 10:55PM ; [facility] Work Phone: 1(833) 176-882702-05-2024 History general Narrative - Reported Includes: Medical History in patient's chart Description Last Updated No Safety Measures 04/12/2023 Last Documented On 4 7:57PM ; [facility] History of viral hepatitis C 04/12/2023 Last Documented On 4 8:31AM ; [facility] Recent immunization for flu 04/12/2023 Last Documented On 4 8:31AM ; [facility] Work Phone: 1(129) 897-978802-05-2024 History general Narrative - Reported Includes: Medical History in patient's chart Description Last Updated No Safety Measures 04/12/2023 Last Documented On 4 7:57PM ; [facility] History of viral hepatitis C 04/12/2023 Last Documented On 4 8:31AM ; [facility] Recent immunization for flu 04/12/2023 Last Documented On 4 8:31AM ; [facility] Work Phone: 1([phone]) 430-708102-05-2024 History general Narrative - Reported Includes: Medical History in patient's chart Description Last Updated No Safety Measures 04/12/2023 Last Documented On 4 7:57PM ; [facility] History of viral hepatitis C 04/12/2023 Last Documented On 4 8:31AM ; [facility] Recent immunization for flu 04/12/2023 Last Documented On 4 8:31AM ; [facility] Work Phone: 1(492) 454-595702-05-2024 History general Narrative - Reported Includes: Medical History in patient's chart Description Last Updated No Safety Measures 04/12/2023 Last Documented On 4 7:57PM ; [facility] History of viral hepatitis C 04/12/2023 Last Documented On 4 8:31AM ; [facility] Recent immunization for flu 04/12/2023 Last Documented On 4 8:31AM ; [facility] Work Phone: 1(458) 607-473802-05-2024 History general Narrative - Reported Includes: Medical History in patient's chart Description Last Updated No Safety Measures 04/12/2023 Last Documented On 4 7:57PM ; [facility] History of viral hepatitis C 04/12/2023 Last Documented On 4 8:31AM ; [facility] Recent immunization for flu 04/12/2023 Last Documented On 4 8:31AM ; [facility] Work Phone: 1([phone]) 557-186202-05-2024 History general Narrative - Reported Includes: Medical History in patient's chart Description Last Updated No Safety Measures 04/12/2023 Last Documented On 4 7:57PM ; [facility] History of viral hepatitis C 04/12/2023 Last Documented On 4 8:31AM ; [facility] Recent immunization for flu 04/12/2023 Last Documented On 4 8:31AM ; [facility] Work Phone: 1(421) 996-305302-05-2024 Progress note* Progress note Date Encounter Last Documented by 04/12/2023 Established Patient Last docu mented on 04/12/2023; 7:57 PM, Bri WARE; [facility] Active Problems & Conditions - F41.1 - Generalized Anxiety Disorder Subjective [facility] met with patient and assessed patients mood. [...] and medication. History of Present Illness Raheem Cody is a 48 year old male. - [...] And Economic Circumstances: Living arrangements living arrangements: [facility] in [facility] and [facility]. Sexual: Sexual [...] + 0 pt : Not at all, [PALUA-7] Feeling afraid as if something awful might [...] + 0 pt : Not at all. 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 They have referred him to [facility]. Patient reports that he is in sober living, he is being treated by [facility]. Reports that he has been clean for [...] 04/12/2023 01:15 pm BP-Sitting R111/79 mmHg Pulse Rate-Jfrgnaw82 bpm Jefagr36 in Nndxde381 lbs Body Mass Index23.9 kg/m2 Body Surface Area1.9 m2 Oxygen Zczmfxkunc16 % Vital Signs: - Systolic blood pressure [...] to 50 Years Old (1 Point) [Pre-DM]. 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 They have referred him to [facility]. Patient reports that he is in sober living, he is being treated by [facility]. Reports that he has been clean for [...] 04/12/2023 01:15 pm BP-Sitting R111/79 mmHg Pulse Rate-Wkzcspo21 bpm Nntrxk46 in Hqtrft750 lbs Body Mass Index23.9 kg/m2 Body Surface Area1.9 m2 Oxygen Uhcebbdwmk88 % Vital Signs: - Systolic blood pressure [...] Old (1 Point) [Pre-DM]. [id number] Evaluation note* General: 47 year old male [...] deficits inattention, concentration or language.Insight: Fair.Judgment: Fair. [facility]02-16-2023 Emergency department Note* Azeb Tamez RN - 04/23/2022 4:37 AM EST Maria Ines manuel here to transport the patient. Paperwork and 1 bag of belongings sent with the patient. Patient ambulated to the stretcher and was calm and cooperative. Azeb Tamez RN 04/23/[address] [facility] Emergency department Note* Azeb Tamez RN - 04/23/2022 4:37 AM EST Maria Ines manuel here to transport the patient. Paperwork and 1 bag of belongings sent with the patient. Patient ambulated to the stretcher and was calm and cooperative. Azeb Tamez RN 04/23/22 0438 * Yarelis Cervantes MA - 04/23/2022 4:25 AM EST Maria Ines manuel is here to transport the pt to [facility]. 1 bag of belongings sent with the pt. Yarelis Cervantes MA 04/23/22 0426 * Heidi Anthony - 04/23/2022 4:09 AM EST Nurse at bedside to place nicotine patch on Pt Heidi Gabrielle 04/23/22 041 * Cheko Torres RN - 04/23/2022 3:55 AM EST Spoke to Frances at [facility] to arrange transport to [facility]. Cheko Torres RN 04/23/22 0357 * [...] EST Report given to Ed RN at [facility]. Cheko Torres RN 04/23/22 013 * [...] [place] [id number]. Patient to room 50. Azeb Tamez RN [...] PM EST Pt to be moved to [facility] after pink slip from attending. Connie Mahmood LPN 04/22/222014 * Laurita Tolbert PA-C - 04/22/2022 5:10 PM EST EMERGENCY DEPARTMENT ENCOUNTER Pt Name: Raheem Cody Birthdate 1975 Date of evaluation: 04/22/2022 ED [...] while he was in a hotel in [facility]. HISTORY OF PRESENT ILLNESS (Location/Symptom, Timing/Onset, Context/Setting, Quality, Duration, Modifying Factors, Severity) Note limiting factors. I wore appropriate PPE for the entirety of this encounter. HPI Raheem Cody is a 47 y.o. male who presents [...] while he was at a hotel in [place] about 6 months ago. He states that he saw something thathe was not supposed to see and does not remember anything after that. He is very concerned that people from the [place] [employer] are following him due to inheriting a [...] Culture. Procedure Abnormality Status --------- ------ Complete Urinalysis[[id number]] Normal Final result Please view results for [...] Dr. Vilchis who recommended psychiatric admission to [facility]. Consideration for escalation of care with: Admission/observation to psychiatric facility. The patient will be Admitted. Patient is in agreement with this plan. I Laurita Tolbert PA-C am the primary grade teacher of record. Total Critical Care time was 35 minutes, excluding separately reportable procedures. There was a high probability of clinically significant/life threatening deterioration in the patient's condition which required my urgent intervention. PROCEDURES: Unless otherwise noted below, none Procedures FINAL IMPRESSION 1. Delusions (CMS/HCC) ([facility]) 2. Paranoia (CMS/HCC) ([facility]) DISPOSITION Transfer To Another Facility 04/23/2022 04:43:15 [...] 04/22/2022 5:10 PM EST Emergency Department Encounter [facility] EMERGENCY DEPT Patient: Raheem Cody : 1975 Date of Evaluation: 04/22/2022 ED Supervising Physician: Allie Bustamante MD I independently examined and evaluated Raheem Cody. In brief, Raheem Cody is a 47 y.o. male with a past medical history significant for polysubstance abuse and hepatitis C that presents to the emergency department for evaluation for concern that people are following him. 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 He states its people from [place] and [place]. He states that he has [...] (%) 04/22/221934 -- Left arm Focused exam: Fzp-mqb-jfcaotitl in no acute distress. Alert and oriented [...] Culture. Procedure Abnormality Status --------- ------ Complete Urinalysis[[id number]] Normal Final result Please view results for [...] MD Diagnoses as of 04/23/22905 Delusions (CMS/HCC) ([facility]) Paranoia (CMS/HCC) (HCC) 47-year-old presenting for evaluation [...] psychiatry who recommended transferring the patient to [facility]. Patient was discussed with [facility] intake nurse who accepted patient for transfer. [...] Bustamante MD 04/23/22 0328 documented in this [facility]02-16-2023 Emergency department Note* Yarelis Cervantes MA - 04/23/2022 4:25 AM EST Maria Ines rossens is here to transport the pt to [facility]. 1 bag of belongings sent with the pt. Yarelis Cervantes MA 04/23/[address]16-2023 Emergency department Note* Heidi Anthony - 04/23/2022 4:09 AM EST Nurse at bedside to place nicotine patch on Pt Heidi Anthony 04/23/[address]16-2023 Emergency department Note* Cheko Torres RN - 04/23/2022 3:55 AM EST Spoke to Frances at [facility] to arrange transport to [facility]. Cheko Torres RN 04/23/[address]16-2023 Emergency department Note* Azeb Tamez RN - 04/23/2022 3:42 AM EST Patient is resting in bed with eyes closed. Respirations even and unlabored. No distress noted. Azeb Tamez RN 04/23/[address]16-2023 Emergency department Note* Heidi Anthony - 04/23/2022 3:10 AM EST Pt getting water from sink in hallway Heidi Anthony 04/23/[address]16-2023 Emergency department Note* Azeb Tamez RN - 04/23/2022 2:43 AM EST Patient is resting in bed with eyes closed. Respirations even and unlabored. No distress noted. Azeb Tamez RN 04/23/[address]16-2023 Emergency department Note* Heidi Anthony - 04/23/2022 1:45 AM EST Nurse and protective services at bedside with Pt's money to witness counting money before he's discharged. Pt requested to go to the restroom. Heidi Anthony 04/23/22 0147 Heidi Anthony 04/23/22 0149 Heidi Anthony 04/23/22 0150 [facility] 04/23/[address]16-2023 Emergency department Note* Cheko Torres RN - 04/23/2022 1:34 AM EST Report given to Ed RN at [facility]. Cheko Torres RN 04/23/[address]16-2023 Emergency department Note* Azeb Tamez RN - 04/23/2022 1:33 AM EST Patient is resting in bed with eyes closed. Respirations even and unlabored. No distress noted. Azeb Tamez RN 04/23/[address]15-2023 Emergency department Note* Marc Joseph MA - 04/22/2022 10:39 PM EST Called [facility] and spoke to javan and placed pt on the list. Marc Joseph MA 04/22/[address]15-2023 Emergency department Note* Azeb Tamez RN - 04/22/2022 10:25 PM EST Patient is pacing in his room. Respirations even and unlabored. Patient asking for nicotine patch and melatonin. Provider notified. Azeb Tamez RN 04/22/222225 [address]15-2023 Emergency department Note* Heidi Anthony - 04/22/2022 10:12 PM EST Tech giving Pt a bagged lunch Heidi Anthony 04/22/222211 [address]15-2023 Emergency department Note* Azeb Tamez RN - 04/22/2022 10:09 PM EST Patient given chelsey edi and bagged lunch. Azeb Tamez RN 04/22/222209 Azeb Tamez RN 04/22/222211 [address]15-2023 Emergency department Note* Heidi Anthony - 04/22/2022 10:06 PM EST Pt pacing in room [facility] 04/22/222205 [place] [id number] NoteNOTE: This result is for medical treatment only. Analysis performed using non-forensic procedures. [facility] HospitalLieays02-51-7183 Emergency department Note* Azeb Tamez RN - 04/22/2022 9:21 PM EST Patient is laying in bed and watching tv. Respirations even and unlabored. No distress noted. Azeb Tamez RN 04/22/222120 [address]Yibhca06-74-8349 Emergency department Note* Heidi Anthony - 04/22/2022 [...] on bed watching TV Heidi Gabrielle 04/22/222118 [address]Kwmmot06-91-2518 Emergency department Note* Azeb Tamez RN - 04/22/2022 9:09 PM EST Patient changed into 2 gowns and socks. Patient wanded by protective services. 1 bag of belongings placed in locker. Patient [place] [id number]. Patient to room 50. Azeb Tamez RN 04/22/222111 [place] [address]-15-2023 Emergency department Note* Azeb Tamez RN - 04/22/2022 9:07 PM EST Patient to restroom with MARIE Paulino. Azeb Tamez RN 04/22/222107 [address]15-2023 Emergency department Note* Heidi Anthony - 04/22/2022 8:57 PM EST Pt currently in room 47 for intake process Heidi Anthony 04/22/222056 [place] [address]-15-2023 Emergency department Note* Yarelis Cervantes MA - 04/22/2022 8:55 PM EST Bed: 50 Expected date: 04/22/22 Expected time: Means of arrival: Comments: Fast Track Pt Yarelis Cervantes MA 04/22/222054 [address]15-2023 Emergency department Note* Connie Mahmood LPN - 04/22/2022 8:14 PM EST Pt to be moved to [facility] after pink slip from attending. Connie Mahmood LPN 04/22/222014 [address]15-2023 Physician Emergency department Note* Laurita Tolbert PA-C - 04/22/2022 5:10 PM EST EMERGENCY DEPARTMENT ENCOUNTER Pt Name: Raheem Cdoy Birthdate 1975 Date of evaluation: 04/22/2022 ED [...] while he was in a hotel in [facility]. HISTORY OF PRESENT ILLNESS (Location/Symptom, Timing/Onset, Context/Setting, Quality, Duration, Modifying Factors, Severity) Note limiting factors. I wore appropriate PPE for the entirety of this encounter. HPI Raheem Cody is a 47 y.o. male who presents [...] while he was at a hotel in [place] about 6 months ago. He states that he saw something thathe was not supposed to see and does not remember anything after that. He is very concerned that people from the [employer] are following him due to inheriting a [...] Culture. Procedure Abnormality Status --------- ------ Complete Urinalysis[[id number]] Normal Final result Please view results for [...] Dr. Vilchis who recommended psychiatric admission to [facility]. Consideration for escalation of care with: Admission/observation to psychiatric facility. The patient will be Admitted. Patient is in agreement with this plan. I Laurita Tolbert PA-C am the primary grade teacher of record. Total Critical Care time was 35 minutes, excluding separately reportable procedures. There was a high probability of clinically significant/life threatening deterioration in the patient's condition which required my urgent intervention. PROCEDURES: Unless otherwise noted below, none Procedures FINAL IMPRESSION 1. Delusions (CMS/[facility]) ([facility]) 2. Paranoia (CMS/[facility]) ([facility]) DISPOSITION Transfer To Another Facility 04/23/2022 04:43:15 [...] Medicine Provider Laurita Tolbert PA-C 04/23/22 0906 [employer] Phone: [phone] Physician Emergency department Note* Jim Medina PA-C - 04/22/2022 5:10 PM EST I did not participate in the care of this patient. Jim Medina PA-C 04/22/22 5872 [employer] Phone: [phone]) 463-532002-15-2023 Physician Emergency department Note* Alile Bustamante MD - 04/22/2022 5:10 PM EST Emergency Department Encounter [facility] EMERGENCY DEPT Patient: Raheem Cody : 1975 Date of Evaluation: 04/22/2022 ED Supervising Physician: Allie Bustamante MD I independently examined and evaluated Raheem Cody. In brief, Raheem Cody is a 47 y.o. male with a past medical history significant for polysubstance abuse and hepatitis C that presents to the emergency department for evaluation for concern that people are following him. 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 He states its people from [place] and [place]. He states that he has [...] (%) 04/22/221934 -- Left arm Focused exam: Mba-dla-okrofcmvl in no acute distress. Alert and oriented [...] Culture. Procedure Abnormality Status --------- ------ Complete Urinalysis[[id number]] Normal Final result Please view results for [...] MD Diagnoses as of 04/23/22905 Delusions (CMS/HCC) ([facility]) Paranoia (CMS/HCC) ([facility]) 47-year-old presenting for evaluation for paranoia with [...] are mis-transcribed.) Allie Bustamante MD Acute Care [facility] Allie Bustamante MD 04/23/22 0328 [employer] Work Phone: 1(197) 864-978602-12-2023 Emergency department Note* Marlon Abebe MD - 04/19/2022 3:07 PM EST EMERGENCY DEPARTMENT ENCOUNTER Pt Name: Raheem Cody Birthdate 1975 Date of evaluation: 04/19/2022 ED Provider: Marlon Abebe MD CHIEF COMPLAINT Chief Complaint Patient presents with Hearing Problem HISTORY OF PRESENT ILLNESS (Location/Symptom, Timing/Onset, Context/Setting, Quality, Duration, Modifying Factors, Severity) Note limiting factors. I wore appropriate PPE for the entirety of this encounter. HPI Raheem Cody is a 47 y.o. male who presents to the emergency department chief complaint of bilateral jaw pain when he is chewing or opening his mouth wide and left ear sensitivity. He states that he feels like his hearing has decreased.. He reports right posterior head pain. Denies any injury or trauma. 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 He states that he feels like he was poisoned when he was in [place]. Denies feeling suicidal or homicidal. Nursing Notes [...] poisoned.. I also reviewed external records from [facility] and [facility]. PROCEDURES: Unless otherwise noted below, none Procedures FINAL IMPRESSION 1. TMJ (temporomandibular joint syndrome) DISPOSITION Discharge 04/19/2022 03:51:14 PM PATIENT REFERRED TO: Your doctor Schedule an appointment as soon as possible for a visit [facility] ED [address] [place] [address] Go to As needed, If symptoms [...] Emergency Medicine Provider Marlon Abebe MD 04/19/22 5763 * Maribeth Barrow RN - 04/19/2022 3:07 [...] has sensitivity to sounds. documented in this [facility]2023 Emergency department Triage note* Maribeth Barrow RN [...] echo and he has sensitivity to sounds. [facility] HospitalVjlgej66-01-8884 Physician Emergency department Note* Marlon Abebe MD - 04/19/2022 3:07 PM EST EMERGENCY DEPARTMENT ENCOUNTER Pt Name: Raheem Cody Birthdate 1975 Date of evaluation: 04/19/2022 ED Provider: Marlon Abebe MD CHIEF COMPLAINT Chief Complaint Patient presents with Hearing Problem HISTORY OF PRESENT ILLNESS (Location/Symptom, Timing/Onset, Context/Setting, Quality, Duration, Modifying Factors, Severity) Note limiting factors. I wore appropriate PPE for the entirety of this encounter. HPI Raheem Cody is a 47 y.o. male who presents to the emergency department chief complaint of bilateral jaw pain when he is chewing or opening his mouth wide and left ear sensitivity. He states that he feels like his hearing has decreased.. He reports right posterior head pain. Denies any injury or trauma. 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 He states that he feels like he was poisoned when he was in [place]. Denies feeling suicidal or homicidal. Nursing Notes [...] tunnel syndrome Hepatitis C IV drug abuse ([facility]) Methamphetamine use (CMS/HCC) ([facility]) SURGICAL HISTORY History reviewed. No pertinent surgical [...] poisoned.. I also reviewed external records from [facility] and [facility]. PROCEDURES: Unless otherwise noted below, none Procedures FINAL IMPRESSION 1. TMJ (temporomandibular joint syndrome) DISPOSITION Discharge 04/19/2022 03:51:14 PM PATIENT REFERRED TO: Your doctor Schedule an appointment as soon as possible for a visit [facility] ED [address] [place] [address] Go to As needed, If symptoms [...] Emergency Medicine Provider Marlon Abebe MD 04/19/22 0859 [employer] Work Phone: 1(522) 355-259511-02-2022 Miscellaneous Notes* Behavorial Health Intake - JEANIE Valente - 01/07/2022 10:56 PM EDT BEHAVIORAL HEALTH BRIEF INTAKE NOTE SERVICE DATE: 01/07/2022 SERVICE TIME: 10:56 PM Raheem Cody is a 46 year old male brought in to [facility] ED from [place] by self for concerns about his safety. FULL CASE NOT PROCESSED DUE TO: Referral cancelled after the patient eloped DISPOSITION & PLAN: Admit patient: No Discharge Disposition: Referral Cancelled;Patient Left Against Medical Advice (AMA) Is Patient Less Than 18 Years of Age or have a Guardian/Healthcare Power of Teacher Kindergarten?: No Disposition Date: 01/07/22 Disposition Time: 1747 SIGNATURE: JEANIE Valente PATIENT NAME: Raheem Cody DATE: January 07, 2022 TIME: 10:56 PM [facility]* Diagnosis Stimulant dependence (HCC)- Primary Amphetamine and other psychostimulant dependence, unspecified [facility] Diagnosis Hepatitis C- Primary [...] of external causes documented in this [facility]* Diagnosis Hepatitis C- Primary Unspecified viral [...] and myositis, unspecified [facility] Diagnosis Hepatitis C- Primary [...] facial pain Headache documented in this [facility]* Diagnosis Hepatitis C- Primary Unspecified viral hepatitis C without hepatic coma Weight loss Loss of weight Fatigue Other malaise and fatigue Lumbar disc herniation Displacement of lumbar intervertebral disc without myelopathy Polysubstance dependence including opioid type drug, episodic abuse (HCC) Combinations of opioid type drug with any other drug dependence, episodic Claustrophobia- Primary Other isolated or specific phobias documented in this encounter [facility]* Diagnosis Hepatitis C- Primary Unspecified viral [...] Atypical face pain documented in this encounter [facility] note* Diagnosis Hepatitis C- Primary Unspecified viral [...] closing the jaw documented [facility] this [facility]* Diagnosis Hepatitis C- Primary Unspecified viral [...] facial pain Headache [facility]* Diagnosis Hepatitis C- Primary Unspecified viral [...] Chronic cluster headache documented in this encounter [facility] note* Diagnosis TMJ (temporomandibular joint syndrome)- Primary Unspecified temporomandibular joint disorders documented in this encounter [facility] note* Diagnosis Delusions (CMS/HCC) (HCC)- Primary Unspecified paranoid state Paranoia (CMS/HCC) ([facility]) Delusional disorder documented in this encounter [facility] note* Diagnosis Otalgia, right- Primary Nasal bleeding Epistaxis Asymmetrical hearing loss Unspecified hearing loss DNS (deviated nasal septum) Deviated nasal septum Hyperactive gag reflex Dry mouth and eyes Current smoker TMJ (temporomandibular joint disorder)- Primary Unspecified temporomandibular joint disorders TMJ (temporomandibular joint disorder) Unspecified temporomandibular joint disorders [facility] Diagnosis TMJ (temporomandibular joint disorder)- Primary Unspecified temporomandibular joint disorders Anxiety- Primary Anxiety state, unspecified Xerostomia Disturbance of salivary secretion Seborrhea capitis TMJ (temporomandibular joint disorder) Unspecified temporomandibular joint disorders [facility] [facility] Hepatitis C- Primary [...] and neck Cervicalgia documented in this encounter [facility] note* Diagnosis Chronic hepatitis C without hepatic [...] Jaw pain- Primary documented in this encounter [facility] note* Diagnosis Hepatitis C- Primary Unspecified viral [...] Atypical face pain [facility] Diagnosis Chronic hepatitis C without hepatic [...] Dysphagia, unspecified type documented in this encounter [facility] note* Diagnosis Hepatitis C- Primary Unspecified viral [...] and neck Cervicalgia [facility] Diagnosis Hepatitis C- Primary Unspecified viral hepatitis C without hepatic coma Weight loss Loss of weight Fatigue Other malaise and fatigue Lumbar disc herniation Displacement of lumbar intervertebral disc without myelopathy Polysubstance dependence including opioid type drug, episodic abuse (HCC) Combinations of opioid type drug with any other drug dependence, episodic Left shoulder pain, unspecified chronicity- Primary [facility]* Diagnosis Anxiety Anxiety state, unspecified [facility] Diagnosis Hepatitis C- Primary [...] oral soft tissues [facility] Diagnosis Anxiety Anxiety state, unspecified [facility]- Primary Unspecified [...] referable to limbs [facility] Diagnosis Hepatitis C- Primary Unspecified viral hepatitis C without hepatic coma Weight loss Loss of weight Fatigue Other malaise and fatigue Lumbar disc herniation Displacement of lumbar intervertebral disc without myelopathy Polysubstance dependence including opioid type drug, episodic abuse (HCC) Combinations of opioid type drug with any other drug dependence, episodic Left shoulder pain, unspecified chronicity documented in this encounter [facility] note* Diagnosis Hepatitis C- Primary Unspecified viral [...] Other specified counseling documented in this encounter [facility] note* Diagnosis Xerostomia Disturbance of salivary secretion [facility] Jaw pain- Primary TMJ (temporomandibular joint disorder) Unspecified temporomandibular joint disorders [facility] Diagnosis Hepatitis C- Primary Unspecified viral [...] of salivary secretion [facility] Otalgia, right- Primary Sensation of fullness in right ear Sensorineural hearing loss (SNHL) of left ear with unrestricted hearing of right ear [facility] Diagnosis Hepatitis C- Primary [...] type Mouth discomfort [facility] Otalgia, right- Primary Sensorineural hearing [...] of right ear [facility] Diagnosis Otalgia, right- Primary Asymmetrical hearing [...] hazards to health [facility]* Diagnosis Arthralgia of right temporomandibular joint- Primary TMJ (temporomandibular joint disorder) Unspecified temporomandibular joint disorders Thrush Candidiasis of mouth Onychomycosis of toenail documented [facility]* Diagnosis Subacute sinusitis, unspecified location documented [facility] this [facility]* Diagnosis Subacute sinusitis, unspecified location- Primary Anxiety Anxiety state, unspecified documented [facility]* Diagnosis Facial pain- Primary Headache documented [facility]* Diagnosis Arthralgia of right temporomandibular joint- Primary TMJ (temporomandibular joint disorder) Unspecified temporomandibular joint disorders documented [facility]* Diagnosis Otalgia of both ears- Primary Fullness in ear, bilateral [facility] Diagnosis Oral thrush- Primary Candidiasis of mouth TMJ (temporomandibular joint disorder) Unspecified temporomandibular joint disorders [facility]* Diagnosis Dry mouth and eyes- Primary TMJ (temporomandibular joint disorder) Unspecified temporomandibular joint disorders Onychomycosis of toenail ASNHL (asymmetrical sensorineural hearing loss) Sensorineural hearing loss, asymmetrical Smoking Tobacco use disorder documented [facility]* Diagnosis Edentulous orofacial dystonia- Primary documented in this [facility]* Diagnosis Edentulous orofacial dystonia- Primary documented in this [facility]* Diagnosis Anxiety- Primary Anxiety state, unspecified TMJ (temporomandibular joint disorder) Unspecified temporomandibular joint disorders Angular cheilosis Diseases of lips documented [facility]* Diagnosis TMJ (temporomandibular joint disorder)- Primary Unspecified temporomandibular joint disorders Oral thrush Candidiasis of mouth TMJ (temporomandibular joint disorder) Unspecified temporomandibular joint disorders [facility]* Diagnosis Hepatitis C- Primary [...] Anxiety state, unspecified [facility] Diagnosis Hepatitis C- Primary Unspecified viral [...] head and neck [facility]* Diagnosis Hepatitis C- Primary Unspecified viral hepatitis C without hepatic coma Weight loss Loss of weight Fatigue Other malaise and fatigue Lumbar disc herniation Displacement of lumbar intervertebral disc without myelopathy Polysubstance dependence including opioid type drug, episodic abuse (HCC) Combinations of opioid type drug with any other drug dependence, episodic Acute pain of left shoulder [facility]* Diagnosis Facial pain- Primary Headache Anxiety Anxiety state, unspecified Seborrhea capitis Cervicalgia Localized swelling, mass or lump of neck documented [facility] this [facility]* Diagnosis Dysphagia, unspecified type Dry mouth Disturbance of salivary secretion Nasal mucosa dry Other diseases of nasal cavity and sinuses Black hairy tongue Hypertrophy of tongue papillae Cervicalgia Localized swelling, mass or lump of neck documented in this [facility]* Diagnosis Hepatitis C- Primary [...] of left shoulder [facility] Diagnosis Hepatitis C- Primary Unspecified viral [...] head and neck [facility] Diagnosis Black hairy tongue- Primary Hypertrophy of tongue papillae Dysphagia, unspecified type Asymmetrical hearing loss Unspecified hearing loss DNS (deviated nasal septum) Deviated nasal septum documented [facility]* Diagnosis Hepatitis C- Primary [...] myelopathy Jaw pain [facility] Diagnosis Cervical spondylosis without myelopathy- Primary TMJ (temporomandibular joint disorder) Unspecified temporomandibular joint disorders TMJ (temporomandibular joint disorder)- Primary Unspecified temporomandibular joint disorders TMJ (temporomandibular joint disorder) Unspecified temporomandibular joint disorders documented [facility]* Diagnosis TMJ (temporomandibular joint disorder)- Primary Unspecified temporomandibular joint disorders Facial pain- Primary Headache Anxiety Anxiety state, unspecified TMJ (temporomandibular joint disorder) Unspecified temporomandibular joint disorders documented [facility] this [facility]* Diagnosis TMJ (temporomandibular joint disorder)- Primary Unspecified temporomandibular joint disorders Anxiety Anxiety state, unspecified TMJ (temporomandibular joint disorder) Unspecified temporomandibular joint disorders documented [facility] this [facility]* Diagnosis TMJ (temporomandibular joint disorder)- Primary Unspecified temporomandibular joint disorders Cervical spondylosis without myelopathy TMJ (temporomandibular joint disorder) Unspecified temporomandibular joint disorders documented [facility] this [facility]* Diagnosis Hepatitis C- Primary [...] Deviated nasal septum [facility] Diagnosis Hepatitis C- Primary [...] Deviated nasal septum [facility] Diagnosis TMJ (temporomandibular joint disorder)- Primary Unspecified temporomandibular joint disorders 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 TMJ (temporomandibular joint disorder) Unspecified temporomandibular joint disorders documented [facility] this [facility]* Diagnosis Bilateral temporomandibular joint disorder, unspecified- Primary TMJ (temporomandibular joint disorder) - Bilateral Unspecified temporomandibular joint disorders documented [facility] this [facility]* Diagnosis Hepatitis C- Primary [...] Deviated nasal septum [facility] Diagnosis Anxiety Anxiety state, unspecified documented [facility] this [facility]* Diagnosis Hepatitis C- Primary [...] Deviated nasal septum [facility]* Diagnosis Chronic hepatitis C without hepatic [...] Dysphagia, oropharyngeal phase documented in this encounter [facility] note* Diagnosis Chronic hepatitis C without [...] Dysphagia, oropharyngeal phase [facility] Diagnosis TMJ (temporomandibular joint disorder) - Bilateral Unspecified temporomandibular joint disorders documented [facility]* Diagnosis Hepatitis C- Primary [...] Dysphagia, unspecified type [facility] Diagnosis Hepatitis C- Primary [...] Other postprocedural status [facility] Diagnosis Hepatitis C- Primary [...] Atypical face pain [facility] Diagnosis Chronic facial pain- Primary Headache TMJ (temporomandibular joint disorder) Unspecified temporomandibular joint disorders TMJ (temporomandibular joint disorder)- Primary Unspecified temporomandibular joint disorders TMJ (temporomandibular joint disorder) Unspecified temporomandibular joint disorders documented [facility]* Diagnosis TMJ (temporomandibular joint disorder)- Primary Unspecified temporomandibular joint disorders Hx of trauma of hard palate- Primary TMJ (temporomandibular joint disorder) Unspecified temporomandibular joint disorders [facility]* Diagnosis TMJ syndrome- Primary Unspecified temporomandibular joint disorders Scalp pain documented in this encounter [facility] Work Phone: Evaluation note* Diagnosis TMJ (temporomandibular joint disorder)- Primary Unspecified temporomandibular joint disorders Closed fracture of one rib of left side with routine healing, subsequent encounter- Primary Anxiety Anxiety state, unspecified Jaw pain documented [facility] this [facility]* Diagnosis Anxiety Anxiety state, unspecified documented [facility]* Diagnosis Jaw pain- Primary Strain of neck muscle, initial encounter documented in this encounter [facility] Work Phone: Evaluation note* Diagnosis Neck pain Cervicalgia Cervical strain, acute, initial encounter Neck pain Cervicalgia documented in this encounter [facility] Work Phone: Evaluation note* Diagnosis TMJ (temporomandibular joint disorder)- Primary Unspecified temporomandibular joint disorders [facility]* Diagnosis Neck pain Cervicalgia documented in this encounter [facility] Work Phone: Evaluation note* Diagnosis Hepatitis C- Primary Unspecified viral [...] remission (HCC) Opioid type dependence, in remission Black hairy tongue- Primary Hypertrophy of tongue papillae Oral phase dysphagia Dysphagia, oral phase Dry mouth Disturbance of salivary secretion [facility] Diagnosis Encounter for screening colonoscopy- Primary Constipation, unspecified constipation type Screen for colon cancer Special screening for malignant neoplasms, colon documented [facility]* Diagnosis Constipation, unspecified constipation type Screen for colon cancer Special screening for malignant neoplasms, colon documented [facility]* Diagnosis Hepatitis C- Primary [...] remission (HCC) Opioid type dependence, in remission Dysphagia, unspecified type- Primary Oropharyngeal dysphagia Dysphagia, oropharyngeal phase documented [facility] this [facility] Diagnosis Hepatitis C- Primary Unspecified viral [...] remission Oropharyngeal dysphagia- Primary Dysphagia, oropharyngeal phase Abnormal rhythmic movement of tongue [facility] Diagnosis Facial pain- Primary Headache TMJ (temporomandibular joint disorder) Unspecified temporomandibular joint disorders TMJ (temporomandibular joint disorder)- Primary Unspecified temporomandibular joint disorders Screen for colon cancer Special screening for malignant neoplasms, colon TMJ (temporomandibular joint disorder) Unspecified temporomandibular joint disorders [facility]* Diagnosis Dislocation of temporomandibular joint, subsequent encounter documented in this encounter [facility] Work Phone: Evaluation note* Diagnosis Hepatitis C- Primary Unspecified viral [...] remission (HCC) Opioid type dependence, in remission Dysphagia, unspecified type- Primary [facility] Diagnosis Temporomandibular joint disorder- Primary Unspecified temporomandibular joint disorders Chronic pain syndrome Hx of intravenous drug use in remission documented in this encounter [facility] Work Phone: Evaluation note* Diagnosis Oral thrush- Primary Candidiasis of mouth Anxiety Anxiety state, unspecified [facility] Diagnosis TMJ (temporomandibular joint disorder) Unspecified temporomandibular joint disorders [facility]* Diagnosis Cervical spondylosis without myelopathy- Primary TMJ (temporomandibular joint disorder) Unspecified temporomandibular joint disorders [facility] Diagnosis Encounter for dental examination- Primary Dental examination documented in this encounter [facility] Work Phone: Evaluation note* Diagnosis Encounter for dental examination- Primary Dental examination 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 * Temporomandibular Joint (TMJ) Disorders Discharge Instructions (Dutch) * TMJ Exercises (Dutch) [facility]* Attachments The following attachments cannot be sent through Care Everywhere. * Head or Face Pain (Dutch) [facility] Attachments The following attachments cannot be sent through Care Everywhere. * Temporomandibular Joint (TMJ) Disorders Discharge Instructions (Dutch) [facility]: Instructions Includes: Instructions for all patient encounters Education and Decision Aids were provided during visit for: *BHP offered active and supp ortive listening, normalized emotions and feelings, and processed ~current stressors. ~*Reviewed relapse prevention skills and positive support activities Last Documented On 4 7:56PM ; [facility] Discussed nutritional needs teach healthy choices including fruits and vegetables Last Documented On 4 1:21PM ; [facility] Patient education about a pr oper diet Last Documented On 4 1:21PM ; [facility] Discussed concerns about exe rcise : promote physical activity Last Documented On 4 1:21PM ; [facility] Patient has agreed to visits every 4 weeks Last Documented On 4 1:59PM ; [facility] Patient aware not to share n eedles, razors, toothbrushes, or nail clippers Last Documented On 4 1:59PM ; [facility] Counseled on medication and herbal product interactions Last Documented On 4 1:59PM ; [facility] Patient is treatment naive Last Documented On 4 1:59PM ; [facility] Patient has an estimated lif e expectancy of 12 months or greater. Last Documented On 4 1:59PM ; [facility] Patient counseled on how to take Hepatitis C Medications Last Documented On 4 1:59PM ; [facility] Patient agreed to labs (CBC, CMP, HCV) every 4 weeks Last Documented On 4 1:59PM ; [facility] Work Phone: Instructions Includes: Instructions for all patient encounters Education and Decision Aids were provided during visit for: *BHP offered active and supp ortive listening, normalized emotions and feelings, and processed ~current stressors. ~*Reviewed relapse prevention skills and positive support activities Last Documented On 4 7:56PM ; [facility] Discussed nutritional needs teach healthy choices including fruits and vegetables Last Documented On 4 1:21PM ; [facility] Patient education about a pr oper diet Last Documented On 4 1:21PM ; [facility] Discussed concerns about exe rcise : promote physical activity Last Documented On 4 1:21PM ; [facility] Patient has agreed to visits every 4 weeks Last Documented On 4 1:59PM ; [facility] Patient aware not to share n eedles, razors, toothbrushes, or nail clippers Last Documented On 4 1:59PM ; [facility] Counseled on medication and herbal product interactions Last Documented On 4 1:59PM ; [facility] Patient is treatment naive Last Documented On 4 1:59PM ; [facility] Patient has an estimated lif e expectancy of 12 months or greater. Last Documented On 4 1:59PM ; [facility] Patient counseled on how to take Hepatitis C Medications Last Documented On 4 1:59PM ; [facility] Patient agreed to labs (CBC, CMP, HCV) every 4 weeks Last Documented On 4 1:59PM ; [facility] Work Phone: Instructions Includes: Instructions for all patient encounters Education and Decision Aids were provided during visit for: *P offered active and supp ortive listening, normalized emotions and feelings, and processed ~current stressors. ~*Reviewed relapse prevention skills and positive support activities Last Documented On 4 7:56PM ; [facility] Discussed nutritional needs teach healthy choices including fruits and vegetables Last Documented On 4 1:21PM ; [facility] Patient education about a pr oper diet Last Documented On 4 1:21PM ; [facility] Discussed concerns about exe rcise : promote physical activity Last Documented On 4 1:21PM ; [facility] Patient has agreed to visits every 4 weeks Last Documented On 4 1:59PM ; [facility] Patient aware not to share n eedles, razors, toothbrushes, or nail clippers Last Documented On 4 1:59PM ; [facility] Counseled on medication and herbal product interactions Last Documented On 4 1:59PM ; [facility] Patient is treatment naive Last Documented On 4 1:59PM ; [facility] Patient has an estimated lif e expectancy of 12 months or greater. Last Documented On 4 1:59PM ; [facility] Patient counseled on how to take Hepatitis C Medications Last Documented On 4 1:59PM ; [facility] Patient agreed to labs (CBC, CMP, HCV) every 4 weeks Last Documented On 4 1:59PM ; [facility] Work Phone: InstructionsNot on filedocumented in this [...] & Outcomes for active Goals No Outcomes [facility] Work Phone: Reason for referral (narrative)No [facility] Referral [facility] Work Phone: Reason for referral (narrative)* Consultation (Routine) - Authorized Specialty Diagnoses / Procedures Referred By Joelle t Referred To Contact Rehabilitation Diagnoses Facial pain Carrington Fritz MD [address] [place] [address], [address] [place] [address] [facility] [address] [place] [address] Referral ID Status Reason Start Date Expiration Date Visits Requested Visits Authorized [id number] Authorized Specialty Services Required 4 06/20/2024 12 12 * Consultation (Routine) - Pending Review Specialty Diagnoses / Procedures Referred By Joelle t Referred To Contact Pain Medicine Diagnoses Facial pain Carrington Fritz MD [address] [place] [address], [address] [place] [address] [facility] [address] [place] [address] Referral ID Status Reason Start Date Expiration Date Visits Requested Visits Authorized [id number] Pending Review Specialty Services Required 4 12/20/2024 1 1 [facility] for visit Narrative* Diagnostic Procedure Only (Routine) - Closed Specialty Diagnoses / Procedures Referred By Joelle t Referred To Contact XR IMAGING Diagnoses Left shoulder pain, unspecified chronicity Procedures XR SHOULDER GENERAL 3V OR MORE AP/TRUE AP/OTHER LEFT RADEX SHOULDER COMPLETE MINIMUM 2 VIEWS Kory Kirkland, EDUCATIONAL PSYCHOLOGIST.INSTRUCTOR TRAINER CANINE SERVICE [address] [place] [address] [place] [address] Referral ID Status Reason Start Date Expiration Date V isits Requested Visits Authorized [id number] Closed Auto-Generate d Referral 04/03/2024 05/03/2025 1 1 [facility] for visit Narrative* Consultation (Routine) - Pending Review Specialty Diagnoses / Procedures Referred By Contac t Referred To Contact Rheumatology Diagnoses Dry mouth and eyes Vu, Fran-Sarahi, DO [address] [facility] [address] [place] [address] Phone: tel: fax: [facility] [address] [facility] [address] [place] [address] Phone: tel: fax: Referral ID Status Reason Start Date Expiration Date Visits Requested Visits Authorized [id number] Pending Review Specialty Services Required 12/21/2024 1 1 [facility] for visit Narrative* Diagnostic Procedure Only (Routine) - Closed Specialty Diagnoses / Procedures Referred By Contac t Referred To Contact XR IMAGING Diagnoses Cervicalgia Localized swelling, mass or lump of neck Procedures XR CERV OTHER 4V AP/LAT/OBL RADEX SPINE CERVICAL 4 OR 5 VIEWS Gabe Marin, DERIK.INSTRUCTOR TRAINER CANINE SERVICE [address] [place] [address] Phone: tel: fax: [place] [address] Referral ID Status Reason Start Date Expiration Date V isits Requested Visits Authorized [id number] Closed Auto-Generate d Referral 04/24/2024 05/24/2025 1 1 [facility] for visit Narrative* MRI/CT (Routine) - Closed Specialty Diagnoses / Procedures Referred By Contac t Referred To Contact MR IMAGING Diagnoses Acute pain of left shoulder Procedures MRI SHOULDER WO IVCON LEFT MRI ANY JT UPPER EXTREMITY W/O CONTRAST MATRrBandy Cohen PA-C [address] [place] [address] Phone: tel: fax: [place] [address] Referral ID Status Reason Start Date Expiration Date V isits Requested Visits Authorized [id number] Closed Auto-Generate d Referral 04/14/2024 06/13/2024 1 1 [facility] for visit Narrative* MRI/CT (Routine) - Closed Specialty Diagnoses / Procedures Referred By Contac t Referred To Contact MR IMAGING Diagnoses Cervicalgia Localized swelling, mass or lump of neck Procedures MRI CERVICAL SPINE WO IVCON MRI SPINAL CANAL CERVICAL W/O CONTRAST Gabe Manning, EDUCATIONAL PSYCHOLOGIST.INSTRUCTOR TRAINER CANINE SERVICE [address] [place] [address] Phone: tel: fax: [place] [address] Referral ID Status Reason Start Date Expiration Date V isits Requested Visits Authorized [id number] Closed Auto-Generat ed Referral Clearance Not Met - Admin/Chairm an/Director Advise to Postpone/Res chedule or Not Proceed 05/11/2024 08/11/2024 1 1 [facility] for visit Narrative* Imaging (Routine) - Closed Specialty Diagnoses / Procedures Referred By Joelle t Referred To Contact Radiology Diagnoses Oropharyngeal dysphagia Procedures MRI BRAIN W WO CONTRAST Kulwinder Nur MD [address] [place] [address] Phone: tel: fax: Referral ID Status Reason Start Date Expiration Date Visits Re quested Visits Authorized [id number] Closed 06/09/2024 06/09/2025 1 1 [facility] for visit Narrative* Imaging (Routine) - Pending Review Specialty Diagnoses / Procedures Referred By Joelle t Referred To Contact Radiology Diagnoses Oropharyngeal dysphagia Procedures FL MODIFIED BARIUM SWALLOW W VIDEO Kulwinder Nur MD [address] [place] [address] Phone: tel: fax: Referral ID Status Reason Start Date Expiration Date V isits Requested Visits Authorized [id number] Pending Review 06/09/2024 06/09/2025 1 1 [facility] for visit Narrative* Auth/Cert (Routine) Specialty Diagnoses / Procedures Referred By Contac t Referred To Contact ADMITTING Diagnoses Incompetent nasal [...] VESTIBULAR STENOSIS SEPTOPLASTY RESECTION SUBMUCOSAL TURBINATES Admitting [address] [place] [address] Referral ID Status Reason Start Date Expiration Date Visits Re quested Visits Authorized [id number] 1 1 [facility] for visit Narrative* Consultation (Routine) - Authorized Specialty Diagnoses / Procedures Referred By Joelle ed león Referred To Contact Orthopaedic Surgery / Orthopedic Surgery Diagnoses Strain of neck muscle, initial encounter Sandeep Wild, EDUCATIONAL PSYCHOLOGIST-INSTRUCTOR TRAINER CANINE SERVICE [address] [place] [address] Phone: tel: fax: Referral ID Status Reason Start Date Expiration Date Visits Requested Visits Authorized [id number] Authorized Specialty Services Required 09/22/2024 09/22/2025 1 1 [facility] Work Phone: Reason for visit Narrative* Outpatient Procedure (Routine) - Closed Specialty Diagnoses / Procedures Referred By Joelle de león Referred To Contact [facility] Diagnoses Dysphagia, unspecified type Procedures EGD DIAGNOSTIC ESOPHAGOGASTRODUODENOSC OPY TRANSORAL DIAGNOSTIC Sofie Reed, EDUCATIONAL PSYCHOLOGIST.INSTRUCTOR TRAINER CANINE SERVICE [address] [place] [address] Phone: tel: fax: [facility] [address] [place] [address] Referral ID Status Reason Start Date Expiration Date V isits Requested Visits Authorized [id number] Closed Auto-Generate d Referral 10/17/2024 03/07/2025 1 1 [facility] for visit Narrative* Eval and Treat (Routine) - Authorized Specialty Diagnoses / Procedures Referred By Joelle de león Referred To Contact Speech Pathology / Speech Therapy Diagnoses Oropharyngeal dysphagia Procedures Eff 04/08/22 100% medicaid coverage 30V then auth Mechelle Lita Kapoor on 10/26/24 at 9:57 AM Kulwinder Vu MD [address] [place] [address] Phone: tel: fax: [facility] [address] [place] [address] Phone: tel: fax: Referral ID Status Reason Start Date Expiration Date Visits Requested Visits Authorized [id number] Authorized Specialty Services Required 06/09/2024 06/09/2025 30 30 [facility] Crawley [facility] Narrative - Reported Review of Systems not supported for this document type No Review of Systems [facility]: Summary Purpose Family History Description Last Updated Maternal history of type 2 diabetes symone itus 04/12/2023 Last Documented On 4 10:55PM ; [facility] Description Last Updated Maternal history of type 2 diabetes symone itus 04/12/2023 Last Documented On 4 8:31AM ; [facility] Description Last Updated Maternal history of type 2 diabetes symone itus 04/12/2023 Last Documented On 4 8:31AM ; [facility] Description Last Updated Maternal history of type 2 diabetes symone itus 04/12/2023 Last Documented On 4 8:31AM ; [facility] Description Last Updated Maternal history of type 2 diabetes symone itus 04/12/2023 Last Documented On 4 8:31AM ; [facility] Description Last Updated Maternal history of type 2 diabetes symone itus 04/12/2023 Last Documented On 4 8:31AM ; [facility] Description Last Updated Maternal history of type 2 diabetes symone itus 04/12/2023 Last Documented On 4 8:31AM ; [facility] Description Last Updated Maternal history of type 2 diabetes symone itus 04/12/2023 Last Documented On 4 8:31AM ; [facility] Description Last Updated Maternal history of type 2 diabetes symone itus 04/12/2023 Last Documented On 4 8:31AM ; [facility] Description Last Updated Maternal history of type 2 diabetes symone itus 04/12/2023 Last Documented On 4 8:31AM ; [facility] Description Last Updated Maternal history of type 2 diabetes symone itus 04/12/2023 Last Documented On 4 8:31AM ; [facility] Description Last Updated Maternal history of type 2 diabetes symone itus 04/12/2023 Last Documented On 4 8:31AM ; [facility] Description Last Updated Maternal history of type 2 diabetes symone itus 04/12/2023 Last Documented On 4 8:31AM ; [facility] Description Last Updated Maternal history of type 2 diabetes symone itus 04/12/2023 Last Documented On 4 8:31AM ; [facility] Description Last Updated Maternal history of type 2 diabetes symone itus 04/12/2023 Last Documented On 4 8:31AM ; [facility] Description Last Updated Maternal history of type 2 diabetes symone itus 04/12/2023 Last Documented On 4 8:31AM ; [facility] Description Last Updated Maternal history of type 2 diabetes symone itus 04/12/2023 Last Documented On 4 8:31AM ; [facility] Description Last Updated Maternal history of type 2 diabetes symone itus 04/12/2023 Last Documented On 4 8:31AM ; [facility] Advance Directives Documents on File Type Date Recorded 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 ACP-Advance Directive ACP-Power of Teacher Kindergarten Date Activated Date Inactivated Comments 01/12/2023 6:16 [...] Referral Specialty Diagnoses / Procedures Referred By Contac t Referred To Contact CT IMAGING Diagnoses Dislocation of temporomandibular joint, subsequent encounter Procedures CT TEMP BONES WO IVCON CT ORBIT SELLA/POST FOSSA/EAR W/O CONTRAST MATRL Kory Kirkland, EDUCATIONAL PSYCHOLOGIST.INSTRUCTOR TRAINER CANINE SERVICE [address] [place] [address] [place] [address] Referral ID Status Reason Start Date Expiration Date Visits Requested Visits Authorized [id number] Waiting for Online Response Auto-Generat ed Referral 12/08/2023 01/06/2025 1 1 Specialty Diagnoses / Procedures Referred By Contac t Referred To Contact [facility] Diagnoses Muscular pain Procedures CONSULT TO [facility] OFFICE/OUTPATIENT [facility] MDM 60 MINUTES Kory Kirkland, EDUCATIONAL PSYCHOLOGIST.INSTRUCTOR TRAINER CANINE SERVICE [address] [place] [address] Referral ID Status Reason Start Date Expiration Date Visits Requested Visits Authorized [id number] Authorized PCP Requested Referral 12/08/2023 12/07/2024 1 1 Specialty Diagnoses / Procedures Referred By Contac t Referred To Contact Dentistry Diagnoses Dislocation of temporomandibular joint, subsequent encounter Procedures CONSULT TO DENTISTRY OFFICE/OUTPATIENT [facility] 60 MINUTES Kory Kirkland, EDUCATIONAL PSYCHOLOGIST.INSTRUCTOR TRAINER CANINE SERVICE [address] [place] [address] Referral ID Status Reason Start Date Expiration Date Visits Requested Visits Authorized [id number] New Request PCP Requested Referral 12/08/2023 12/07/2024 1 1 Specialty Diagnoses / Procedures Referred By Contac t Referred To Contact [facility] Diagnoses Dislocation of temporomandibular joint, subsequent encounter Muscular pain Procedures CONSULT TO PHYSICAL THERAPY PHYSICAL THERAPY EVALUATION HIGH COMPLEX 45 MINS Kory Kirkland, EDUCATIONAL PSYCHOLOGIST.INSTRUCTOR TRAINER CANINE SERVICE [address] [place] [address] [facility] [address] [place] [address] Referral ID Status Reason Start Date Expiration Date Visits Requested Visits Authorized [id number] Pending Review Auto-Generat ed Referral 12/08/2023 12/07/2024 1 1 Specialty Diagnoses / Procedures Referred By Contac t Referred To Contact MR IMAGING Diagnoses Right facial pain Atypical facial pain Procedures MRI BRAIN WO/W IVCON MRI BRAIN BRAIN STEM W/O W/[place] [address] [place] [address] Mr Imaging [id number] Referral ID Status Reason Start Date Expiration Date Visits Requested Visits Authorized [id number] Pending Review Auto-Generat ed Referral 12/10/2023 01/08/2025 1 1 Referral ID Status Reason Start Date Expiration Date Visits Re quested Visits Authorized [id number] Closed 12/16/2023 02/14/2024 1 1 Specialty Diagnoses / Procedures Referred By Contac t Referred To Contact CT IMAGING Diagnoses Cervicalgia Procedures CTA NECK W IVCON CT ANGIOGRAPHY NECK W/CONTRAST/NONCONTRAST Kay Siddiqi PA-C [address] [place] [address] Ct Imaging [id number] Referral ID Status Reason Start Date Expiration Date Visits Requested Visits Authorized [id number] Pending Review Auto-Generat ed Referral 03/17/2024 04/16/2025 1 1 Specialty Diagnoses / Procedures Referred By Contac t Referred To Contact CT IMAGING Diagnoses Localized swelling, mass or lump of neck Procedures CTA HEAD W IVCON CT ANGIOGRAPHY HEAD W/CONTRAST/NONCONTRAST Kay Siddiqi PA-C [address] [place] [address] [place] [address] Referral ID Status Reason Start Date Expiration Date Visits Requested Visits Authorized [id number] Pending Review Auto-Generat ed Referral 03/17/2024 04/16/2025 1 1 Specialty Diagnoses / Procedures Referred By Contac t Referred To Contact Ent - Otolaryngology Diagnoses DNS (deviated nasal septum) Procedures CONSULT TO ENT OFFICE/OUTPATIENT [facility] 60 MINUTES Lyn Shipman PA-C [address] [place] [address] Referral ID Status Reason Start Date Expiration Date Visits Requested Visits Authorized [id number] Authorized PCP Requested Referral 03/29/2024 03/29/2025 1 1 Specialty Diagnoses / Procedures Referred By Contac t Referred To Contact Radiology Diagnoses Dysphagia, unspecified type Procedures CT SOFT TISSUE NECK W CONTRAST Carmen Miller MD [address] [address] Referral ID Status Reason Start Date Expiration Date Visits Re quested Visits Authorized [id number] Closed 11/10/2023 11/03/2024 1 1 Referral ID Status Reason Start Date Expiration Date Visits Requested Visits Authorized [id number] Pending Review Auto-Genera jess Referral Clearance Not Met - Admin/Chair man/Directo r Advise to Postpone/Re schedule or Not Proceed Patient Cleared - Admin/Chair man/Directo r advise to proceed or did not respond 03/17/2024 04/16/2025 1 1 Referral ID Status Reason Start Date Expiration Date Visits Requested Visits Authorized [id number] Pending Review Auto-Genera jess Referral Patient Cleared - Admin/Chair man/Directo r advise to proceed or did not respond 03/17/2024 04/16/2025 1 1 Specialty Diagnoses / Procedures Referred By Contac t Referred To Contact Orthopedics Diagnoses Left shoulder pain, unspecified chronicity Procedures CONSULT PANEL TO ORTHOPAEDICS OFFICE/OUTPATIENT [facility] 60 MINUTES Kory Kirkland, EDUCATIONAL PSYCHOLOGIST.INSTRUCTOR TRAINER CANINE SERVICE [address] [place] [address] Referral ID Status Reason Start Date Expiration Date Visits Requested Visits Authorized [id number] Authorized PCP Requested Referral 04/03/2024 04/03/2025 1 1 Specialty Diagnoses / Procedures Referred By Contac t Referred To Contact XR IMAGING Diagnoses Left shoulder pain, unspecified chronicity Procedures XR SHOULDER GENERAL 3V OR MORE AP/TRUE AP/OTHER LEFT RADEX SHOULDER COMPLETE MINIMUM 2 VIEWS Kory Kirkland, EDUCATIONAL PSYCHOLOGIST.INSTRUCTOR TRAINER CANINE SERVICE [address] [place] [address] [place] [address] Referral ID Status Reason Start Date Expiration Date Visits Requested Visits Authorized [id number] New Request Auto-Generat ed Referral 04/03/2024 05/03/2025 1 1 Specialty Diagnoses / Procedures Referred By Contac t Referred To Contact [facility] Diagnoses Cervical spine pain Procedures CONSULT TO [facility] OFFICE/OUTPATIENT [facility] MDM 60 MINUTES Brandy Erickson PA-C [address] [place] [address] Referral ID Status Reason Start Date Expiration Date Visits Requested Visits Authorized [id number] Authorized PCP Requested Referral 04/07/2024 04/07/2025 1 1 Specialty Diagnoses / Procedures Referred By Contac t Referred To Contact MR IMAGING Diagnoses Acute pain of left shoulder Procedures MRI SHOULDER WO IVCON LEFT MRI ANY JT UPPER EXTREMITY W/O CONTRAST MATRL Brandy Erickson PA-C [address] [place] [address] [place] [address] Referral ID Status Reason Start Date Expiration Date Visits Requested Visits Authorized [id number] New Request Auto-Generat ed Referral 04/07/2024 05/07/2025 1 1 Specialty Diagnoses / Procedures Referred By Contac t Referred To Contact Radiology Diagnoses Asymmetrical hearing loss Sensorineural hearing loss (SNHL) of left ear with unrestricted hearing of right ear Procedures MR brain IAC with and without contrast Duran Wilson, DO [address] [facility] [address] [place] [address] [facility] [address] [place] [address] Phone: [phone] Referral ID Status Reason Start Date Expiration Date Visits Re quested Visits Authorized [id number] Closed 07/15/2023 09/13/2023 1 1 Specialty Diagnoses / Procedures Referred By Joelle de león Referred To Contact Radiology Diagnoses Arthralgia of right temporomandibular joint Procedures MR face without contrast Carrington Fritz MD [address] [facility] [place] [address] Referral ID Status Reason Start Date Expiration Date V isits Requested Visits Authorized [id number] PREG Follow-Up Needed 11/11/2023 11/10/2024 1 1 Specialty Diagnoses / Procedures Referred By Joelle de león Referred To Contact Radiology Diagnoses TMJ (temporomandibular joint disorder) Arthralgia of right temporomandibular joint Procedures MR temporomandibular joint Carrington Fritz MD [address] [facility] [place] [address] Referral ID Status Reason Start Date Expiration Date V isits Requested Visits Authorized [id number] PREG Follow-Up Needed 11/23/2023 11/22/2024 1 1 [...] section and content) DATE CREATED AUTHOR 08/25/2017 [facility] DATE CREATED AUTHOR AUTHOR'S ORGANIZ ATION 09/01/2017 [facility] DATE CREATED AUTHOR AUTHOR'S ORGANIZ ATION 10/31/2017 [facility] ([place]) DATE CREATED AUTHOR AUTHOR'S ORGANIZ ATION 11/16/2017 [facility] DATE CREATED AUTHOR AUTHOR'S ORGANIZ ATION 07/30/2018 [facility] DATE CREATED AUTHOR AUTHOR'S ORGANIZ ATION 10/25/2018 [facility] DATE CREATED AUTHOR AUTHOR'S ORGANIZ ATION 10/10/2020 [facility] DATE CREATED AUTHOR AUTHOR'S ORGANIZ ATION 04/04/[address] [facility] DATE CREATED AUTHOR AUTHOR'S ORGANIZ ATION 02/26/2022 [facility] DATE CREATED AUTHOR AUTHOR'S ORGANIZ ATION 02/27/2022 [facility] DATE CREATED AUTHOR AUTHOR'S ORGANIZ ATION 04/23/[address] [facility] DATE CREATED AUTHOR AUTHOR'S ORGANIZ ATION 04/29/2022 [facility] DATE CREATED AUTHOR AUTHOR'S ORGANIZ ATION 09/24/2022 [facility] DATE CREATED AUTHOR AUTHOR'S ORGANIZ ATION 02/17/2023 [facility] DATE CREATED AUTHOR AUTHOR'S ORGANIZ ATION 08/06/2023 [facility] DATE CREATED AUTHOR AUTHOR'S ORGANIZ ATION 11/13/2023 [facility] DATE CREATED AUTHOR AUTHOR'S ORGANIZ ATION 12/31/2023 [facility] DATE CREATED AUTHOR AUTHOR'S ORGANIZ ATION 04/19/2024 [facility] DATE CREATED AUTHOR AUTHOR'S ORGANIZ ATION 05/22/2024 [facility] DATE CREATED AUTHOR AUTHOR'S ORGANIZ ATION 06/14/2024 [facility] DATE CREATED AUTHOR AUTHOR'S ORGANIZ ATION 07/24/2024 [facility] DATE CREATED AUTHOR AUTHOR'S ORGANIZ ATION 08/27/2024 [facility] DATE CREATED AUTHOR AUTHOR'S ORGANIZ ATION 09/30/2024 [facility] DATE CREATED AUTHOR AUTHOR'S ORGANIZ ATION 11/05/2024 [facility] DATE CREATED AUTHOR AUTHOR'S ORGANIZ ATION 11/19/2024 [facility] DATE CREATED AUTHOR AUTHOR'S ORGANIZ ATION 12/07/2024 [facility] DATE CREATED AUTHOR AUTHOR'S ORGANIZ ATION 12/07/2024 [facility] DATE CREATED AUTHOR AUTHOR'S ORGANIZ ATION 12/11/2024 [facility] Source Comments (unrecognize d section and content) In the event this informatio n is protected by the Federal Confidentiality of Alcohol and Drug Abuse Patient Records regulations: The Federal rules restrict any use of the information to criminally investigate or prosecute any alcohol or drug abuse patient.[facility] Center[facility] the event this information is protected by the Federal Confidentiality of Alcohol and Drug Abuse Patient Records regulations: The Federal rules restrict any use of the information to criminally investigate or prosecute any alcohol or drug abuse patient.[facility] Center[facility] the event this information is protected by the Federal Confidentiality of Alcohol and Drug Abuse Patient Records regulations: The Federal rules restrict any use of the information to criminally investigate or prosecute any alcohol or drug abuse patient.[facility] Center[facility] the event this information is protected by the Federal Confidentiality of Alcohol and Drug Abuse Patient Records regulations: The Federal rules restrict any use of the information to criminally investigate or prosecute any alcohol or drug abuse patient.[facility] Center[facility] the event this information is protected by the Federal Confidentiality of Alcohol and Drug Abuse Patient Records regulations: The Federal rules restrict any use of the information to criminally investigate or prosecute any alcohol or drug abuse patient.[facility] Center[facility] the event this information is protected by the Federal Confidentiality of Alcohol and Drug Abuse Patient Records regulations: The Federal rules restrict any use of the information to criminally investigate or prosecute any alcohol or drug abuse patient.[facility] Center[facility] the event this information is protected by the Federal Confidentiality of Alcohol and Drug Abuse Patient Records regulations: The Federal rules restrict any use of the information to criminally investigate or prosecute any alcohol or drug abuse patient.[facility] Center[facility] the event this information is protected by the Federal Confidentiality of Alcohol and Drug Abuse Patient Records regulations: The Federal rules restrict any use of the information to criminally investigate or prosecute any alcohol or drug abuse patient.[facility] Center[facility] the event this information is protected by the Federal Confidentiality of Alcohol and Drug Abuse Patient Records regulations: The Federal rules restrict any use of the information to criminally investigate or prosecute any alcohol or drug abuse patient.[facility] Center[facility] the event this information is protected by the Federal Confidentiality of Alcohol and Drug Abuse Patient Records regulations: The Federal rules restrict any use of the information to criminally investigate or prosecute any alcohol or drug abuse patient.[facility] Center[facility] the event this information is protected by the Federal Confidentiality of Alcohol and Drug Abuse Patient Records regulations: The Federal rules restrict any use of the information to criminally investigate or prosecute any alcohol or drug abuse patient.[facility] Center[facility] the event this information is protected by the Federal Confidentiality of Alcohol and Drug Abuse Patient Records regulations: The Federal rules restrict any use of the information to criminally investigate or prosecute any alcohol or drug abuse patient.[facility] CenterIn the event this information is protected by the Federal Confidentiality of Alcohol and Drug Abuse Patient Records regulations: The Federal rules restrict any use of the information to criminally investigate or prosecute any alcohol or drug abuse patient.[facility] CenterIn the event this information is protected by the Federal Confidentiality of Alcohol and Drug Abuse Patient Records regulations: The Federal rules restrict any use of the information to criminally investigate or prosecute any alcohol or drug abuse patient.[facility] CenterIn the event this information is protected by the Federal Confidentiality of Alcohol and Drug Abuse Patient Records regulations: The Federal rules restrict any use of the information to criminally investigate or prosecute any alcohol or drug abuse patient.[facility] CenterIn the event this information is protected by the Federal Confidentiality of Alcohol and Drug Abuse Patient Records regulations: The Federal rules restrict any use of the information to criminally investigate or prosecute any alcohol or drug abuse patient.[facility] CenterIn the event this information is protected by the Federal Confidentiality of Alcohol and Drug Abuse Patient Records regulations: The Federal rules restrict any use of the information to criminally investigate or prosecute any alcohol or drug abuse patient.[facility] CenterIn the event this information is protected by the Federal Confidentiality of Alcohol and Drug Abuse Patient Records regulations: The Federal rules restrict any use of the information to criminally investigate or prosecute any alcohol or drug abuse patient.[facility] CenterIn the event this information is protected by the Federal Confidentiality of Alcohol and Drug Abuse Patient Records regulations: The Federal rules restrict any use of the information to criminally investigate or prosecute any alcohol or drug abuse patient.[facility] CenterIn the event this information is protected by the Federal Confidentiality of Alcohol and Drug Abuse Patient Records regulations: The Federal rules restrict any use of the information to criminally investigate or prosecute any alcohol or drug abuse patient.[facility] CenterIn the event this information is protected by the Federal Confidentiality of Alcohol and Drug Abuse Patient Records regulations: The Federal rules restrict any use of the information to criminally investigate or prosecute any alcohol or drug abuse patient.[facility] CenterIn the event this information is protected by the Federal Confidentiality of Alcohol and Drug Abuse Patient Records regulations: The Federal rules restrict any use of the information to criminally investigate or prosecute any alcohol or drug abuse patient.[facility] CenterIn the event this information is protected by the Federal Confidentiality of Alcohol and Drug Abuse Patient Records regulations: The Federal rules restrict any use of the information to criminally investigate or prosecute any alcohol or drug abuse patient.[facility] CenterIn the event this information is protected by the Federal Confidentiality of Alcohol and Drug Abuse Patient Records regulations: The Federal rules restrict any use of the information to criminally investigate or prosecute any alcohol or drug abuse patient.[facility] CenterIn the event this information is protected by the Federal Confidentiality of Alcohol and Drug Abuse Patient Records regulations: The Federal rules restrict any use of the information to criminally investigate or prosecute any alcohol or drug abuse patient.[facility] CenterIn the event this information is protected by the Federal Confidentiality of Alcohol and Drug Abuse Patient Records regulations: The Federal rules restrict any use of the information to criminally investigate or prosecute any alcohol or drug abuse patient.[facility] CenterIn the event this information is protected by the Federal Confidentiality of Alcohol and Drug Abuse Patient Records regulations: The Federal rules restrict any use of the information to criminally investigate or prosecute any alcohol or drug abuse patient.[facility] CenterIn the event this information is protected by the Federal Confidentiality of Alcohol and Drug Abuse Patient Records regulations: The Federal rules restrict any use of the information to criminally investigate or prosecute any alcohol or drug abuse patient.[facility] CenterIn the event this information is protected by the Federal Confidentiality of Alcohol and Drug Abuse Patient Records regulations: The Federal rules restrict any use of the information to criminally investigate or prosecute any alcohol or drug abuse patient.[facility] CenterIn the event this information is protected by the Federal Confidentiality of Alcohol and Drug Abuse Patient Records regulations: The Federal rules restrict any use of the information to criminally investigate or prosecute any alcohol or drug abuse patient.[facility] CenterIn the event this information is protected by the Federal Confidentiality of Alcohol and Drug Abuse Patient Records regulations: The Federal rules restrict any use of the information to criminally investigate or prosecute any alcohol or drug abuse patient.[facility] CenterIn the event this information is protected by the Federal Confidentiality of Alcohol and Drug Abuse Patient Records regulations: The Federal rules restrict any use of the information to criminally investigate or prosecute any alcohol or drug abuse patient.[facility] CenterIn the event this information is protected by the Federal Confidentiality of Alcohol and Drug Abuse Patient Records regulations: The Federal rules restrict any use of the information to criminally investigate or prosecute any alcohol or drug abuse patient.[facility] CenterIn the event this information is protected by the Federal Confidentiality of Alcohol and Drug Abuse Patient Records regulations: The Federal rules restrict any use of the information to criminally investigate or prosecute any alcohol or drug abuse patient.[facility] CenterIn the event this information is protected by the Federal Confidentiality of Alcohol and Drug Abuse Patient Records regulations: The Federal rules restrict any use of the information to criminally investigate or prosecute any alcohol or drug abuse patient.[facility] CenterIn the event this information is protected by the Federal Confidentiality of Alcohol and Drug Abuse Patient Records regulations: The Federal rules restrict any use of the information to criminally investigate or prosecute any alcohol or drug abuse patient.[facility] CenterIn the event this information is protected by the Federal Confidentiality of Alcohol and Drug Abuse Patient Records regulations: The Federal rules restrict any use of the information to criminally investigate or prosecute any alcohol or drug abuse patient.[facility] CenterIn the event this information is protected by the Federal Confidentiality of Alcohol and Drug Abuse Patient Records regulations: The Federal rules restrict any use of the information to criminally investigate or prosecute any alcohol or drug abuse patient.[facility] CenterIn the event this information is protected by the Federal Confidentiality of Alcohol and Drug Abuse Patient Records regulations: The Federal rules restrict any use of the information to criminally investigate or prosecute any alcohol or drug abuse patient.[facility] CenterIn the event this information is protected by the Federal Confidentiality of Alcohol and Drug Abuse Patient Records regulations: The Federal rules restrict any use of the information to criminally investigate or prosecute any alcohol or drug abuse patient.[facility] CenterIn the event this information is protected by the Federal Confidentiality of Alcohol and Drug Abuse Patient Records regulations: The Federal rules restrict any use of the information to criminally investigate or prosecute any alcohol or drug abuse patient.[facility] CenterIn the event this information is protected by the Federal Confidentiality of Alcohol and Drug Abuse Patient Records regulations: The Federal rules restrict any use of the information to criminally investigate or prosecute any alcohol or drug abuse patient.[facility] CenterIn the event this information is protected by the Federal Confidentiality of Alcohol and Drug Abuse Patient Records regulations: The Federal rules restrict any use of the information to criminally investigate or prosecute any alcohol or drug abuse patient.[facility] CenterIn the event this information is protected by the Federal Confidentiality of Alcohol and Drug Abuse Patient Records regulations: The Federal rules restrict any use of the information to criminally investigate or prosecute any alcohol or drug abuse patient.[facility] CenterIn the event this information is protected by the Federal Confidentiality of Alcohol and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 [address], [address] [place] [address] Referring Internal Medicine 11/26/23 Stained Glass Joiner Relationship Specialty Start Date End Date Carrington Fritz MD [address] [place] [address], [address] [place] [address] PCP - General Pediatrics 02/17/24 Stained Glass Joiner Relationship Specialty Start Date End Date Carrington Fritz MD [address] [place] [address], [address] [place] [address] PCP - General Pediatrics 02/17/24 Stained Glass Joiner Relationship Specialty Start Date End Date Carrington Fritz MD [address] [place] [address], [address] [place] [address] PCP - General Internal Medicine 06/20/24 Carrington Fritz MD [address] [place] [address], [address] [place] [address] Referring Internal Medicine 11/26/23 Stained Glass Joiner Relationship Specialty Start Date End Date Carrington Fritz MD [address] [place] [address], [address] [place] [address] PCP - General Internal Medicine 06/20/24 Carrington Fritz MD [address] [place] [address], [address] [place] [address] Referring Internal Medicine 11/26/23 Stained Glass Joiner Relationship Specialty Start Date End Date Carrington Fritz MD [address] [place] [address], [address] [place] [address] PCP - General Internal Medicine 06/20/24 Carrington Fritz MD [address] [place] [address], [address] [place] [address] Referring Internal Medicine 11/26/23 Stained Glass Joiner Relationship Specialty Start Date End Date Carrington Fritz MD [address] [place] [address], [address] [place] [address] PCP - General Internal Medicine 06/20/24 Carrington Fritz MD [address] [place] [address], [address] [place] [address] Referring Internal Medicine 11/26/23 Stained Glass Joiner Relationship Specialty Start Date End Date Carmen Miller MD [address] [address] PCP - General Otolaryngology 09/20/23 Stained Glass Joiner Relationship Specialty Start Date End Date Carrington Fritz MD [address] [place] [address], [address] [place] [address] PCP - General Internal Medicine 06/20/24 Carrington Fritz MD [address] [place] [address], [address] [place] [address] Referring Internal Medicine 11/26/23 Stained Glass Joiner Relationship Specialty Start Date End Date Carrington Fritz MD [address] [place] [address], [address] [place] [address] PCP - General Internal Medicine 06/20/24 Carrington Fritz MD [address] [place] [address], [address] [place] [address] Referring Internal Medicine 11/26/23 Stained Glass Joiner Relationship Specialty Start Date End Date Carrington Fritz MD [address] [place] [address], [address] [place] [address] PCP - General Internal Medicine 06/20/24 Carrington Fritz MD [address] [place] [address], [address] [place] [address] Referring Internal Medicine 11/26/23 Stained Glass Joiner Relationship Specialty Start Date End Date Carrington Fritz MD [address] [place] [address], [address] [place] [address] PCP - General Internal Medicine 06/20/24 Carrington Fritz MD [address] [place] [address], [address] [place] [address] Referring Internal Medicine 11/26/23 Stained Glass Joiner Relationship Specialty Start Date End Date Carrington Fritz MD [address] [place] [address], [address] [place] [address] PCP - General Pediatrics 02/17/24 Stained Glass Joiner Relationship Specialty Start Date End Date Carrington Fritz MD [address] [place] [address], [address] [place] [address] PCP - General Internal Medicine 06/20/24 Carrington Fritz MD [address] [place] [address], [address] [place] [address] Referring Internal Medicine 11/26/23 Stained Glass Joiner Relationship Specialty Start Date End Date Carrington Fritz MD [address] [place] [address], [address] [place] [address] PCP - General Internal Medicine 06/20/24 Carrington Fritz MD [address] [place] [address], [address] [place] [address] Referring Internal Medicine 11/26/23 Stained Glass Joiner Relationship Specialty Start Date End Date Carrington Fritz MD [address] [place] [address], [address] [place] [address] PCP - General Pediatrics 02/17/24 Stained Glass Joiner Relationship Specialty Start Date End Date Carrington Fritz MD [address] [place] [address], [address] [place] [address] PCP - General Internal Medicine 06/20/24 Carrington Fritz MD [address] [place] [address], [address] [place] [address] Referring Internal Medicine 11/26/23 Stained Glass Joiner Relationship Specialty Start Date End Date Home Garner MD [address] [place] [address] PCP - General 09/21/22 Stained Glass Joiner Relationship Specialty Start Date End Date Carrington Fritz MD [address] [place] [address], [address] [place] [address] PCP - General Pediatrics 02/17/24 Stained Glass Joiner Relationship Specialty Start Date End Date Dre Wilde MD [address] [place] [address] PCP - General Internal Medicine 09/07/24 Stained Glass Joiner Relationship Specialty Start Date End Date Carrington Fritz MD [address] [place] [address], [address] [place] [address] PCP - General Internal Medicine 09/27/24 Stained Glass Joiner Relationship Specialty Start Date End Date Carrington Fritz MD [address] [place] [address], [address] [place] [address] PCP - General Pediatrics 02/17/24 Stained Glass Joiner Relationship Specialty Start Date End Date Carrington Fritz MD [address] [place] [address], [address] [place], [place] [address] PCP - General Internal Medicine 09/27/24 Stained Glass Joiner Relationship Specialty Start Date End Date Carrington Fritz MD [address] [place] [address], [address] [place], [place] [id number] PCP - General Internal Medicine 06/20/24 Carrington Fritz MD [address] [place] [address], [address] [place] [address] Referring Internal Medicine 11/26/23 Stained Glass Joiner Relationship Specialty Start Date End Date Carrington Fritz MD [address] [place] [address], [address] [place] [address] PCP - General Pediatrics 02/17/24 Stained Glass Joiner Relationship Specialty Start Date End Date Carrington Fritz MD [address] [place] [address], [address] [place] [address] PCP - General Internal Medicine 06/20/24 Carrington Fritz MD [address] [place] [address], [address] [place] [address] Referring Internal Medicine 11/26/23 Stained Glass Joiner Relationship Specialty Start Date End Date Carrington Fritz MD [address] [place] [address], [address] [place] [address] PCP - General Internal Medicine 06/20/24 Carrington Fritz MD [address] [place] [address], [address] [place] [address] Referring Internal Medicine 11/26/23 Stained Glass Joiner Relationship Specialty Start Date End Date Carrington Fritz MD [address] [place] [address], [address] [place] [address] PCP - General Pediatrics 02/17/24 Stained Glass Joiner Relationship Specialty Start Date End Date Carrington Fritz MD [address] [place] [address], [address] [place] [address] PCP - General Internal Medicine 09/27/24 Stained Glass Joiner Relationship Specialty Start Date End Date Carrington Fritz MD [address] [place] [address], [address] [place] [address] PCP - General Internal Medicine 06/20/24 Carrington Fritz MD [address] [place] [address], [address] [place] [address] Referring Internal Medicine 11/26/23 Stained Glass Joiner Relationship Specialty Start Date End Date Carmen Miller MD [address] [address] PCP - General Otolaryngology 09/20/23 Stained Glass Joiner Relationship Specialty Start Date End Date Carrington Fritz MD [address] [place] [address], [address] [place] [address] PCP - General Internal Medicine 09/27/24 Stained Glass Joiner Relationship Specialty Start Date End Date Carrington Fritz MD [address] [place] [address], [address] [place] [address] PCP - General Internal Medicine 06/20/24 Carrington Fritz MD [address] [place] [address], [address] [place] [address] Referring Internal Medicine 11/26/23 Stained Glass Joiner Relationship Specialty Start Date End Date Carrington Fritz MD [address] [place] [address], [address] [place] [address] PCP - General Internal Medicine 06/20/24 Carrington Fritz MD [address] [place] [address], [address] [place] [address] Referring Internal Medicine 11/26/23 Stained Glass Joiner Relationship Specialty Start Date End Date Carmen Miller MD [address] [place] [address] PCP - General Otolaryngology 09/20/23 Stained Glass Joiner Relationship Specialty Start Date End Date Carmen Miller MD [address] [place] [address] PCP - General Otolaryngology 09/20/23 Stained Glass Joiner Relationship Specialty Start Date End Date Self, Self PCP - General Other 05/18/23 Stained Glass Joiner Relationship Specialty Start Date End Date Self, Self PCP - General Other 05/18/23 Stained Glass Joiner Relationship Specialty Start Date End Date Self, Self PCP - General Other 05/18/23 Sebastien Warren [address] [id number] Dental Student 12/11/24 Lee Mane DMD [address] [phone] Personnel Interviewer Dentistry 12/11/24 Scheduled Active and Recently Administ ered Medications (unrecognized section and content) Medication Order 04/21/2022 04/22/2022 04/23/2022 meclizine (Antivert) [...] (Given - Provid er: Nieves Leal RN) FOR RECORDS PERTAINING TO PATIENTS WHO ARE [...] BE BASED ON THE PRIMARY CLINICAL RECORDS. [facility] provides no warranty or guarantee of the accuracy or completeness of information in this document.
--- NOTE | 2024-12-20 13:21 | ECG_ITS ---
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 Measurements Intervals [place] Rate: 143 P: 60 [place]: 154 QRS: -72 QRSD: 86 T: 90 QT: 284 QTc: 367 Interpretive Statements 1120 Sinus tachycardia 3433 Septal myocardial infarction, probably old 7200 Abnormal left axis deviation 8003 Consistent with pulmonary disease 9150 abnormal ECG No previous ECG available for comparison Electronically Signed On 12-20-2024 18:04:37 EDT by KATY JACKSON M.D.
--- NOTE | 2024-12-20 13:24 | ED.GENADUL1 ---
HPI HPI - General Adult General Chief complaint: Neck Pain/Injury Stated complaint: POST OP ISSUES Time Seen by Provider: 12/20/24 13:05 Source: patient Mode of arrival: walk-in Limitations: no limitations History of Present Illness HPI narrative: Patient is a 49-year-old male with a past medical history of heroin abuse, on Suboxone film, that presents with complaints of his head pounding and feels like his neck is pulling. He denies any trauma or past issues with his neck. He does report he had a rhinoplasty in July of this year for a deviated septum. He has many random complaints and he does feel like his throat is closing but this has been going on for some time now. His main complaint is his head pounding in the neck pulling sensation. He is living in a recovery skilled nursing. Related Data Home Medications ?Medication ?Instructions ?Recorded ?Confirmed buprenorphine 8 mg-naloxone 2 mg film 09/02/24 sublingual film clonazepam 1 mg tablet mg 09/02/24 Previous Rx's ?Medication ?Instructions ?Recorded ibuprofen 800 mg tablet 800 mg PO Q8H PRN pain #20 tabs 09/02/24 prednisone 50 mg tablet 50 mg PO DAILY 5 days #5 tabs 12/20/24 Allergies Allergy/AdvReac Type Severity Reaction Status Date / Time Penicillins Allergy Severe Anaphylaxis Verified 12/20/24 12:50 Opioid HPI Opioid Management Most Recent Opioid Data: Ur Phencyclidine Scrn, (NEGATIVE) Negative Today, 14:36 Review of Systems ROS Status of ROS 10 or more systems reviewed and unremarkable except as noted in history and below PFSH PFSH Social History Little interest or pleasure in doing things: not at all Feeling down, depressed, or hopeless: not at all Exam Narrative Exam Narrative: General: Appears anxious, eyes closed, age-appropriate Skin: Warm, dry, no pallor. No rash. Head: Normocephalic, atraumatic. Neck: Supple, paraspinal musculature tender bilaterally Eye: Pupils are equal, round and EOMI. No scleral icterus. Ears, Nose, Mouth, and Throat: Airway is patent, no nasal mucosal hypertrophy. Oral mucosa is moist, no posterior oropharynx erythema, uvula is mid-line, no tonsillar swelling Cardiovascular: Regular Rate and Rhythm without murmur, gallop or rub. Respiratory: No accessory muscle use or respiratory distress. Lungs are clear to auscultation, no wheezing, rales or rhonchi Chest Wall: no tenderness Musculoskeletal: Full ROM of all extremities, no calf or popliteal tenderness. 5/5 strength bilateral upper and lower extremities. GI: Abdomen is soft, non-distended, non tender to palpation. No masses appreciated. No rebound, guarding, or rigidity noted. Neurological: A&O x4. No cranial nerve dysfunction observed. No truncal ataxia. Moves all extremities. Sensation intact. Psychiatric: Cooperative and interactive. Normal mood and affect. Constitutional Vital Signs, click to edit/add: Last Vital Signs Pulse 75 12/20/24 17:50 Resp 18 12/20/24 17:50 BP 106/64 12/20/24 17:46 Pulse Ox 92 L 12/20/24 16:20 O2 Del Method Room Air 12/20/24 12:50 Course Vital Signs Vital signs: Vital Signs Pulse Rate 140 H 12/20/24 12:50 Respiratory Rate 16 12/20/24 12:50 Blood Pressure 145/94 H 12/20/24 12:50 Pulse Oximetry 98 12/20/24 12:50 Oxygen Delivery Method Room Air 12/20/24 12:50 Pulse Rate 75 12/20/24 17:50 Respiratory Rate 18 12/20/24 17:50 Blood Pressure 106/64 12/20/24 17:46 Pulse Oximetry 92 L 12/20/24 16:20 Oxygen Delivery Method Room Air 12/20/24 12:50 Medical Decision Making [facility] Narrative Medical decision making narrative: This is a 49-year-old male with past medical history of heroin abuse, on Suboxone film, presents with complaints of head and neck pain x 2 weeks that worsened today. He feels like his head is pounding and his neck is pulling on both sides. He denies any trauma. On arrival patient appears extremely anxious and is keeping his eyes closed. He denies any photophobia. He is on telemetry as the complex care nurse practitioner noted his tachycardia, his heart rate is varying from 120s to 140s while I am in the room. He he denies drug or alcohol use recently or today. He is living in a recovery home. He complains of many symptoms that revolve around his rhinoplasty he had in July for deviated septum. He feels like his throat is closing, on exam his airway is patent, no tonsillar swelling, no erythema, uvula midline. Pale mucous membranes. Patient is a dentulous. He feels as if there is an infection in his gums. His mouth was thoroughly inspected and there are no signs of abscess, erythema, swelling ect. IV placed. Chest x-ray, CT head and cervical spine ordered. CBC, CMP, troponin, D-Dimer, UDS, EtOH ordered. EKG with sinus tachycardia with occasional ectopic PVCs, septal myocardial infarction, probably old noted in V2, abnormal left axis deviation, consistent with pulmonary disease Chest x-ray reviewed by myself, no PTX, no effusion, no mediastinal widening. 1 L normal saline ordered for tachycardia possible dehydration given dry mucous membranes. Labs CBC: No leukocytosis, no anemia Hgb 16.4 CMP: AST elevated, 115 Trop: Negative EtOH: Negative UA: Positive for 15 mg/DL ketones, small urine bilirubin, 2?5 hpf urine WBC, trace urine bacteria, large urine mucus UDS: Positive for cannabinoid D-Dimer: Positive, 1.07- CTA Chest ordered CTA chest negative for PE, some mild dependent atelectasis and mild emphysematous changes noted. Patient's heart rate on telemetry much improved after the liter of normal saline, more consistent in the 90s. Patient requesting half of his home Klonopin dose, which would be 0.5 mg. I did order this for him p.o. and going to give him 30 mg of Toradol and 10 mg of Decadron for his neck, head, and facial pain. I did discussed his labs and imaging results with him thoroughly. No acute findings on labs or testing today warranted admission. Heart rate greatly improved with 1 L of normal saline. Pain more controlled with medication. I discussed plan that I am going to discharge him with a prescription for a steroid burst, prednisone 50 mg x 5 days to try to help his pain as he states he is in pain management and already on Lyrica for his likely trigeminal neuralgia. He denies narcotics for pain control. Patient voices agreement. Patient was discharged in stable condition with plan for follow-up with his multiple specialty providers to include pain management, neurology, and his ENT surgeon. Differential Diagnosis Differential Diagnosis: Tension headache, myofascial neck pain, and a cranial hemorrhage, meningiti Lab Data Lab results reviewed: Yes I reviewed the patient's lab results Labs: Lab Results 12/20/24 12/20/24 12/20/24 Range/Units 13:43 14:36 15:30 WBC 8.8 (4.0-11.0) 10^3/uL RBC 4.93 (4.70-6.10) 10^6/uL Hgb 16.4 (14.0-18.0) g/dL Hct 46.2 (42.0-54.0) % MCV 93.7 (80.0-94.0) fL MCH 33.3 (25.9-34.0) pg MCHC 35.5 H (29.9-35.2) g/dL RDW 13.0 (11.0-15.0) % Plt Count 198 (150-450) 10^3/uL MPV 9.6 (9.5-13.5) fL Neut % (Auto) 77.4 H (43.0-75.0) % Lymph % (Auto) 14.1 L (20.5-60.0) % [place] % (Auto) 7.9 (1.7-12.0) % Eos % (Auto) 0.2 L (0.9-7.0) % Baso % (Auto) 0.2 (0.2-2.0) % Neut # (Auto) 6.8 H (1.4-6.5) 10^3/uL Lymph # (Auto) 1.2 (1.2-3.8) 10^3/uL [place] # (Auto) 0.7 (0.3-0.8) 10^3/uL Eos # (Auto) 0.0 (0.0-0.7) 10^3/uL Baso # (Auto) 0.0 (0.0-0.1) 10^3/uL Abs Immat Gran (auto) 0.02 (0.00-0.03) 10^3/uL Imm/Tot Granulo (auto) 0.2 (0.0-0.5) % D-Dimer 1.07 H* (<=0.59) mg/L FEU Sodium 139 (136-145) mmol/L Potassium 3.5 (3.5-5.1) mmol/L Chloride 100 (98-107) mmol/L Carbon Dioxide 29.2 (21.0-32.0) mmol/L Anion Gap 13.3 BUN 8.0 (7.0-18.0) mg/dL Creatinine 0.83 (0.70-1.30) mg/dL Est GFR ( Amer) >60 (>=60 mL/min/1.73m^2) Est GFR (Non-Af Amer) >60 (>=60 mL/min/1.73m^2) BUN/Creatinine Ratio 9.6 Glucose 158 H (74-106) mg/dL Calcium 9.8 (8.5-10.1) mg/dL Total Bilirubin 0.6 (0.2-1.0) mg/dL AST 115 H (15-37) U/L ALT 68 H (16-63) U/L Alkaline Phosphatase 93 (46-116) U/L Troponin I High Sens 7.3 (4.0-76.1) pg/mL Total Protein 8.5 H (6.4-8.2) g/dL Albumin 4.4 (3.4-5.0) g/dL Globulin 4.1 g/dL Albumin/Globulin Ratio 1.1 Urine Color Yellow (YELLOW) Urine Clarity Sl cloudy (CLEAR) Urine pH 6.0 (5.0-9.0) Ur Specific [place] 1.025 (1.005-1.025) Urine Protein Trace (NEG/TRACE) mg/dL Urine Glucose (UA) Negative (NEGATIVE) mg/dL Urine Ketones 15 A (NEGATIVE) mg/dL Urine Occult Blood Negative (NEGATIVE) Urine Nitrite Negative (NEGATIVE) Urine Bilirubin Small A (NEGATIVE) Urine Urobilinogen 1.0 (0.2-1.0) EU/dL Ur Leukocyte Esterase Negative (NEGATIVE) Urine RBC 0-2 (0-2) #/HPF Urine WBC 2-5 A (NONE SEEN) #/HPF Ur Squamous Epith Cells Few A (NONE/RARE) #/LPF Urine Crystals None seen (None Seen) #/HPF Urine Bacteria Trace A (NONE SEEN) #/HPF Urine Casts None seen (NONE SEEN) #/LPF Urine Mucus Large A (NONE SEEN) Ur Culture Indicated? No Urine Opiates Screen Negative (NEGATIVE) Ur Buprenorphine Scrn Negative (NEGATIVE) Ur Oxycodone Screen Negative (NEGATIVE) Urine Methadone Screen Negative (NEGATIVE) Ur Barbiturates Screen Negative (NEGATIVE) U Tricyclic Antidepress Negative (NEGATIVE) Ur Phencyclidine Scrn Negative (NEGATIVE) Ur Amphetamines Screen Negative (NEGATIVE) U Methamphetamines Scrn Negative (NEGATIVE) U Benzodiazepines Scrn Negative (NEGATIVE) Urine Cocaine Screen Negative (NEGATIVE) U Cannabinoids Screen Positive A (NEGATIVE) Ethanol Quant <3 mg/dL Imaging Data CT scan - head: Attestation: I have reviewed the pertinent imaging results. Radiologist's impression: ITS Impressions Head CT 12/20/24 13:33 IMPRESSION: NO ACUTE INTRACRANIAL ABNORMALITY. Impression dictated by: Tate Duncan M.D. 12/20/2024 4:05 PM Dictation Location: [employer] Electronically authenticated by: [id number] Y Date: 12/20/2024 16:[address] 12/20/24 13:35 IMPRESSION: No fracture or subluxation. Degenerative changes are noted, greatest at C5-C6. Impression dictated by: Ravi Barkley M.D. 12/20/2024 4:26 PM Dictation Location: [employer] Electronically authenticated by: [id number] Y Date: 12/20/2024 16:26 Chest X-Ray 12/20/24 13:38 IMPRESSION: Negative acute pleural-parenchymal disease. Impression dictated by: Tate Duncan M.D. 12/20/2024 4:09 PM Dictation Location: [employer] Electronically authenticated by: [id number] Y Date: 12/20/2024 16:09 Chest CTA 12/20/24 16:19 IMPRESSION: No acute cardiopulmonary pathology. No evidence of pulmonary embolism. Mild dependent atelectasis is noted. Mild emphysematous changes are noted. Impression dictated by: Ravi Barkley M.D. 12/20/2024 5:04 PM Dictation Location: [employer] Electronically authenticated by: [id number] Y Date: 12/20/2024 17:04 ECG Data Attestation: ?I have reviewed the pertinent ECG results. Discharge Plan Discharge Chief Complaint: Neck Pain/Injury Clinical Impression: Head and face pain, Neck pain Patient Disposition: Home, Self-Care Time of Disposition Decision: 18:07 Condition: Good Mode of Transportation: Private Vehicle Prescriptions / Home Meds: New prednisone 50 mg tablet 50 mg PO DAILY 5 Days Qty: 5 0RF No Action clonazepam 1 mg tablet buprenorphine-naloxone 8-2 mg film ibuprofen 800 mg tablet 800 mg PO Q8H PRN (Reason: pain) Qty: 20 0RF Print Language: Micronesian Instructions: Chronic Neck Pain (DC) Referrals: Physician,Non-Staff, [Physician] - 1 week Discharge Date/Time: 12/20/24 18:32
--- NOTE | 2024-12-20 13:28 | PC.NURSE ---
Pt reports to ER with numerous complaints. Pt states he has a ripping and tearing sensation at the back of his head and neck Pt states he had a septal surgery in July and since then his face has felt tight and like there is a pulling sensation in his gums and lips Pt states he can feel his pulse in his head Pt is sitting in an awkward position at the side of the bed and states it is uncomfortable to lie down Pt denies any alcohol or drug use in the recent past- states he lives in a recovery house and takes suboxone Pt states he has had lots of head trauma over the years and is unable to say how long he has been feeling this poorly Pt was dropped off at ER by roommate and walked back to room Pt appears very anxious and uncomfortable on assesment
--- NOTE | 2024-12-20 13:33 | CT_ITS ---
The [address] [address] Patient Name: RAHEEM CODY MRN: [facility]:[id number] date: 1975 Sex: M Assigned Patient Location: ED.MAIN Current Patient Location: ED.MAIN Accession/Order Number: [id number] Exam Date: 12/20/2024 14:00 Report Date: 12/20/2024 16:05 At the request of: TERESO BRISENO Procedure: CT head/brain wo con CT BRAIN WITHOUT CONTRAST: CLINICAL HISTORY: Headache, history of drug abuse COMPARISON: 01/21/2024 TECHNIQUE: Contiguous axial unenhanced images were obtained through the brain. This CT exam was performed using one or more following dose reduction techniques: Automated exposure control, adjustment of the mA and/or kV according to patient size, or use of iterative reconstruction technique. FINDINGS: There is no evidence of midline shift, intra or extra-axial fluid collection, hemorrhage or CT evidence of acute large vascular distribution stroke. Visualized intraorbital contents appear unremarkable. Visualized paranasal sinuses are clear. The surrounding soft tissues are normal. CT/CT head/brain wo con IMPRESSION: NO ACUTE INTRACRANIAL ABNORMALITY. Impression dictated by: Tate Duncan M.D. 12/20/2024 4:05 PM Dictation Location: [place] [address] Electronically authenticated by: [id number] Y Date: 12/20/2024 16:05
--- NOTE | 2024-12-20 13:35 | CT_ITS ---
[address] [address] Patient Name: RAHEEM CODY MRN: [id number] date: 1975 Sex: M Assigned Patient Location: ED.MAIN Current Patient Location: Accession/Order Number: [id number] Exam Date: 12/20/2024 14:00 Report Date: 12/20/2024 16:26 At the request of: TERESO BRIESNO Procedure: CT cervical spine wo con CT cervical spine wo con 12/20/2024 2:06 PM SIGN AND SYMPTOMS: ^Neck pain, headache, h/o drug abuse TECHNIQUE: Multi detector CT axial slices of the cervical spine were obtained without IV contrast. Volumetric acquisition sagittal, coronal, and 3-D reconstructions were performed and reviewed. CT was performed with one or more of the following dose reduction techniques: Automated exposure control, adjustment of the mA and/or kV according to patient size, or use of iterative reconstruction technique. COMPARISON: None. FINDINGS: There is preservation of the vertebral body heights. Mild disc height loss is noted at C5-C6. Mild facet degenerative changes are present. No fractures or dislocations are seen. The alignment of the cervical spine is normal. The craniocervical junction and atlantoaxial joint are within normal limits. The prevertebral soft tissues are within normal limits. The paraspinous soft tissues are within normal limits. The lung apices are unremarkable. CT/CT cervical spine wo con IMPRESSION: No fracture or subluxation. Degenerative changes are noted, greatest at C5-C6. Impression dictated by: Ravi Barkley M.D. 12/20/2024 4:26 PM Dictation Location: [place] [address] Electronically authenticated by: [id number] Y Date: 12/20/2024 16:26
--- NOTE | 2024-12-20 13:38 | XR_ITS ---
The [address] [address] Patient Name: RAHEEM CODY MRN: [facility]:[id number] date: 1975 Sex: M Assigned Patient Location: ED.MAIN Current Patient Location: ED.MAIN Accession/Order Number: [id number] Exam Date: 12/20/2024 14:00 Report Date: 12/20/2024 16:09 At the request of: TERESO BRISENO Procedure: XR chest 1V SINGLE FRONTAL CHEST: CLINICAL HISTORY: Tachycardia, intermittant CP COMPARISON: None Unremarkable cardiomediastinal. Lungs clear. No effusion or pneumothorax. XR/XR chest 1V IMPRESSION: Negative acute pleural-parenchymal disease. Impression dictated by: Tate Duncan M.D. 12/20/2024 4:09 PM Dictation Location: [place] [address] Electronically authenticated by: [id number] Y Date: 12/20/2024 16:09
[2024-12-20 13:58] LABS: Hematocrit 46.2 % (42.0-54.0); Hemoglobin 16.4 g/dL (14.0-18.0); Immature Granulocytes Abs Auto 0.02 10^3/uL (0.00-0.03); Immature Granulocytes Pct Auto 0.2 % (0.0-0.5); Lymphocytes Absolute Auto 1.2 10^3/uL (1.2-3.8); Mean Corpuscular HGB Conc 35.5 g/dL (29.9-35.2); Mean Corpuscular Hemoglobin 33.3 pg (25.9-34.0); Mean Corpuscular Volume 93.7 fL (80.0-94.0); Platelet Count 198 10^3/uL (150-450); Red Blood Count 4.93 10^6/uL (4.70-6.10); White Blood Count 8.8 10^3/uL (4.0-11.0)
[2024-12-20 14:06] LABS: Alanine Aminotransferase 68 U/L (16-63); Albumin Globulin Ratio 1.1; Albumin Level 4.4 g/dL (3.4-5.0); Alkaline Phosphatase 93 U/L (46-116); Anion Gap 13.3; Aspartate Amino Transferase 115 U/L (15-37); Blood Urea Nitrogen 8.0 mg/dL (7.0-18.0); Calcium 9.8 mg/dL (8.5-10.1); Carbon Dioxide 29.2 mmol/L (21.0-32.0); Chloride 100 mmol/L (98-107); Estimated GFR (African America >60 (>=60 mL/min/1.73m^2); Estimated GFR (Non-African Ame >60 (>=60 mL/min/1.73m^2); Globulin 4.1 g/dL; Glucose 158 mg/dL (74-106); Potassium 3.5 mmol/L (3.5-5.1); Sodium 139 mmol/L (136-145); Total Protein 8.5 g/dL (6.4-8.2)
[2024-12-20 14:46] LABS: Glucose Urine UA NEGATIVE (NEGATIVE)
[2024-12-20 14:58] LABS: Cannabinoid Screen Urine POSITIVE (NEGATIVE); Methamphetamines Screen Urine NEGATIVE (NEGATIVE); Tricyclic Antidepressant Urine NEGATIVE (NEGATIVE)
[2024-12-20 15:00] LABS: Cast Seen? NONE SEEN #/LPF (NONE SEEN); Crystals Seen? None Seen #/HPF (None Seen); Urine Culture Indicated NO
[2024-12-20] MEDS: 0.9 % SODIUM CHLORIDE 1,000 ML 1000 ML IV (15:06)
--- NOTE | 2024-12-20 16:19 | CT_ITS ---
[address] [address] Patient Name: RAHEEM CODY MRN: [id number] date: 1975 Sex: M Assigned Patient Location: ED.MAIN Current Patient Location: ED.MAIN Accession/Order Number: [id number] Exam Date: 12/20/2024 16:35 Report Date: 12/20/2024 17:04 At the request of: TERESO BRISENO Procedure: CT angio chest CT angio chest 12/20/2024 4:42 PM SIGN AND SYMPTOMS: Hypoxia, Tachycardia, Pos D-Dimer CONTRAST: 100 mL of intravenous Omnipaque 350 TECHNIQUE: Multidetector CT axial slices of the chest were obtained with IV contrast. Multiplanar reformats were performed and viewed on a separate workstation and reviewed to further define anatomy and possible pathology. CT was performed with one or more of the following dose reduction techniques: Automated exposure control, adjustment of the mA and/or kV according to patient size, or use of iterative reconstruction technique. COMPARISON: None. FINDINGS: Lower neck: Thyroid gland within normal limits, no supraclavicle adenopathy. Vessels: Atherosclerotic changes are noted in the aortic arch. There is no evidence of pulmonary embolism. Mediastinum and Fátima: Within normal limits. Heart: Normal size. No pericardial effusion. Airways: Suspected respiratory secretions are noted along the tracheal wall. Lungs: There is dependent atelectasis at the left lung base. Emphysematous changes are noted in the upper lobes. Pleura: Within normal limits. Chest Wall: Within normal limits. Upper Abdomen: Within normal limits. Bones: Remote healed or healing fractures are noted in the left fourth, fifth, seventh, and eighth ribs. CT/CT angio chest IMPRESSION: No acute cardiopulmonary pathology. No evidence of pulmonary embolism. Mild dependent atelectasis is noted. Mild emphysematous changes are noted. Impression dictated by: Ravi Barkley M.D. 12/20/2024 5:04 PM [facility]ictation [facility] Electron[facility] authenticated by: [id number] Y Date: 12/20/2024 17:04
[2024-12-20] MEDS: CLONAZEPAM 0.5 MG TABLET PO (17:44)
[2024-12-20] MEDS: DEXAMETHASONE SOD PHOS 10 MG/ML VIAL IV (17:44)
[2024-12-20] MEDS: KETOROLAC TROMETHAMINE 30 MG/ML VIAL IVP (17:44)
== END 2024-12-20 18:32 | disposition home or self-care (01) ==
PROVIDERS: Physician Assistant; Emergency Provider Emergency Medicine; PCP Internal Medicine
DX: R51.9 Headache, unspecified (principal); M54.2 Cervicalgia; F11.20 Opioid dependence, uncomplicated; R79.89 Other specified abnormal findings of blood chemistry
CPT/HCPCS: 36415; 70450; 71045; 71275; 72125; 76376; 80053; 80307; 80320; 81001; 84484; 85025; 85378; 93005; 96374; 96375; 99285; J1100; J1885; Q9967